=== PATIENT | male | born 1965 | race African-American/Black ===

== ENCOUNTER 2016-09-01 06:43 | Outpatient (CLI) | payer MEDICARE, OTHER ==
[~2016-09-01] VITALS: Ht 198.1 cm; Wt 121.6 kg
[2016-09-01] VITALS (9 sets, daily range): BP systolic 131–193; BP diastolic 74–103
[~2016-09-01 06:43] MED LIST: ACET500T68 PO; ALBU2.5V5 NEB; ALPR0.254 PO; AMLO10TA4 PO; AMLO5TAB2 PO; ASPI325T4 PO; ASPI81TA50 PO; ASPI81TA9 PO; ATOR40TA59 PO; ATORVASTATIN CA80 MG PO; CALC200T23 PO; CALC500O PO; CALC667C6 PO; CARV25TA2 PO; CARV6.252 PO; CEFA2PIG IV; CEFE2VIA5 IJ; CETI10TA16 PO; CLON0.1T PO; CLON0.2T PO; CLON0.3T PO; CLOP75TA PO; COLL30OI TP; CRESTOR20 MG PO; CRESTOR40 MG PO; CYCL10TA2 PO; DARB100D SQ; DARB60DI SQ; DEXT50DI2 IV; DICL100G7 TP; DIPH25TA24 PO; DIPH25TA26 PO; ENOX40DI3 SQ; ERGO500012 PO; ESCI10TA PO; FAMO20TA5 PO; FENO48TA16 PO; FLUT12AE IH; FOLI0.8T3 PO; FURO-68 PO; FURO40TA4 PO; GUAI600T38 PO; HYDR-2672 PO; HYDR-2762 PO; HYDR-2868 PO; HYDR-2869 PO; HYDR100T24 PO; Hydrochlorothiazide PO; INSU100C SQ; INSU100I17 SQ; INSU100I27 SQ; INSU100V8 SQ; ISOS30TA4 PO; LANS15CA66 PO; LEVO175T2 PO; LEVO250T25 PO; LEVO500T8 PO; LIDO700A4 TD; LORA1TAB PO; MECL12.52 PO; MELO-150 PO; METO25TA4 PO; METO50TA2 PO; MIDO5TAB PO; MORP30TA3 PO; MORP60TA PO; NIFE60TA12 PO; NIFE60TA16 PO; NITR0.4T SL; OLME1TAB35 PO; OXYC-323 PO; OXYC10TA PO; OXYC1TAB9 PO; OXYC5TAB PO; POTA10TA12 PO; PRAM0.255 PO; PRAM0.5T5 PO; PRAS10TA4 PO; PROAIR HFA8.5 GM INH; SEVE800T9 PO; SUCR1TAB29 PO; VANC1.5P3 IV; VENTOLIN HFA18 GM INH; WARF10TA PO; WARF5TAB PO; WARF5TAB7 PO; ZOLP10TA4 PO; ZOLP5TAB5 PO
[2016-09-01 07:07] LABS: BASO # 0.1 x10^3/uL (0.0-0.2); BASO % 2 % (0-3); EOS % 2 % (0-3); HEMATOCRIT 35.4 % (39.0-53.0); HEMOGLOBIN 11.4 g/dL (13.0-17.5); LYMPH # 1.7 x10^3/uL (1.0-4.8); LYMPH % 25 % (24-48); MEAN CORPUSCULAR HEMOGLOBIN 29 pg (25-35); MEAN CORPUSCULAR HGB CONC 32 g/dL (31-37); MEAN CORPUSCULAR VOLUME 90 fL (79-100); MONO % 11 % (0-9); NEUT % 59 % (31-73); PLATELET COUNT 234 x10^3/uL (140-400); RED BLOOD COUNT 3.94 x10^6/uL (4.30-5.70); RED CELL DISTRIBUTION WIDTH 15.1 % (11.5-14.5); WHITE BLOOD COUNT 6.7 x10^3/uL (4.0-11.0)
[2016-09-01] MEDS ORDERED: FAMOTIDINE 20 MG/2 ML VIAL IVP ONE (07:15)
[2016-09-01] MEDS ORDERED: DIPHENHYDRAMINE 50 MG/ML VIAL IM ONE (07:15)
[2016-09-01] MEDS ORDERED: methylPREDNISolone SOD SUCC PF 125 MG/2 ML VIAL. IV ONE (07:15)
[2016-09-01 07:17] LABS: INR 1.2 (0.8-1.1)
[2016-09-01 07:54] LABS: CALCIUM 8.6 mg/dL (8.5-10.1); GFR 19.2; POTASSIUM 4.3 mmol/L (3.5-5.1)
[2016-09-01] MEDS ORDERED: LIDOCAINE 1% / SOD BICARB 8.4% 20 ML VIAL. IJ ONE ×2 (07:55→09:45)
[2016-09-01] MEDS ORDERED: IODIXANOL 320 MG/ML 100 ML VIAL. ONE ×2 (07:56→09:31)
[2016-09-01] MEDS ORDERED: MIDAZOLAM HCL/PF 5 MG/5 ML VIAL ONE (08:32)
[2016-09-01] MEDS ORDERED: FENTANYL PF 250 MCG/5 ML VIAL. ONE (08:32)
[2016-09-01] MEDS ORDERED: HEPARIN for IV BOLUS 10,000 UNIT/10 ML VIAL. ONE (09:27)
[2016-09-01] MEDS ORDERED: DIPHENHYDRAMINE 50 MG/ML VIAL IVP ONE (09:37)
[2016-09-01] MEDS ORDERED: HEPARIN for IV BOLUS 10,000 UNIT/10 ML VIAL. IV ONE (09:45)
[2016-09-01] MEDS ORDERED: IODIXANOL 320 MG/ML 100 ML VIAL. IART ONE (09:45)
[2016-09-01] MEDS ORDERED: FENTANYL PF 250 MCG/5 ML VIAL. IV ONE (09:45)
[2016-09-01] MEDS ORDERED: MIDAZOLAM HCL/PF 5 MG/5 ML VIAL IV ONE (09:45)
[2016-09-01] MEDS ORDERED: CONTRAST GIVEN MC PRN (10:00)
--- NOTE | 2016-09-01 10:24 | PDOC1 ---
History and Physical Date of Procedure Date of Admission History of Present Illness Reason for Visit CRF with poor flows in Left arm fistula Past Medical History Past Medical History see nursing pre-op assessment Current Medications Current Medications Current Medications Methylprednisolone Sodium Succinate (Solu-Medrol 125mg Vial) 125 mg 1X ONCE IV Last administered on 09/01/16 10:14; Start 09/01/16 at 07:15; Stop 09/01/16 at 07:16; Status DC Diphenhydramine HCl (Benadryl) 50 mg 1X ONCE IM ; Start 09/01/16 at 07:15; Stop 09/01/16 at 07:16; Status DC Famotidine (Pepcid) 20 mg 1X ONCE IVP Last administered on 09/01/16 10:14; Start 09/01/16 at 07:15; Stop 09/01/16 at 07:16; Status DC Lidocaine/Sodium Bicarbonate 20 ml 20 ml STK-MED ONCE IJ ; Start 09/01/16 at 07: 55; Stop 09/01/16 at 07:56; Status DC Heparin Sodium/ Sodium Chloride 500 ml @ As Directed STK-MED ONCE .ROUTE ; Start 09/01/16 at 07:55; Stop 09/01/16 at 07:56; Status DC Iodixanol (Visipaque 320) 100 ml STK-MED ONCE .ROUTE ; Start 09/01/16 at 07:56; Stop 09/01/16 at 07:57; Status DC Midazolam HCl (Versed) 5 mg STK-MED ONCE .ROUTE ; Start 09/01/16 at 08:32; Stop 09/01/16 at 08:33; Status DC Fentanyl Citrate (Fentanyl 5ml Vial) 250 mcg STK-MED ONCE .ROUTE ; Start at 08:32; Stop 09/01/16 at 08:33; Status DC Heparin Sodium (Porcine) 10,000 unit STK-MED ONCE .ROUTE ; Start 09/01/16 at 09: 27; Stop 09/01/16 at 09:28; Status DC Iodixanol (Visipaque 320) 100 ml STK-MED ONCE .ROUTE ; Start 09/01/16 at 09:31; Stop 09/01/16 at 09:32; Status DC Heparin Sodium/ Sodium Chloride 1,000 unit 1X ONCE IART Last administered on 1 /20/17at 10:13; Start 09/01/16 at 09:45; Stop 09/01/16 at 09:52; Status DC Lidocaine/Sodium Bicarbonate (Buffered Lidocaine 1%) 20 ml 1X ONCE IJ Last administered on 09/01/16 10:13; Start 09/01/16 at 09:45; Stop 09/01/16 at 09:52 ; Status DC Midazolam HCl (Versed) 2 mg 1X ONCE IV Last administered on 09/01/16 10:17; Start 09/01/16 at 09:45; Stop 09/01/16 at 09:52; Status DC Fentanyl Citrate (Fentanyl 5ml Vial) 100 mcg 1X ONCE IV Last administered on 10:16; Start 09/01/16 at 09:45; Stop 09/01/16 at 09:52; Status DC Iodixanol (Visipaque 320) 100 ml 1X ONCE IART Last administered on 09/01/16 10:12; Start 09/01/16 at 09:45; Stop 09/01/16 at 09:52; Status DC Heparin Sodium (Porcine) 5,000 unit 1X ONCE IV Last administered on 09/01/16 10:15; Start 09/01/16 at 09:45; Stop 09/01/16 at 09:52; Status DC Info (Do NOT chart on this entry -- for MONITORING) 1 each PRN DAILY PRN MC SEE COMMENTS; Start 09/01/16 at 10:00; Stop 09/03/16 at 09:59 Diphenhydramine HCl (Benadryl) 50 mg 1X ONCE IVP ; Start 09/01/16 at 09:37; Stop 09/01/16 at 10:20; Status DC Active Scripts Active Morphine Sulfate Er (Morphine Sulfate) 30 Mg Tablet.er 30 Mg PO TID Lidoderm (Lidocaine) 700 Mg Adh..patch 1 Patch TD DAILY Cyclobenzaprine Hcl 10 Mg Tablet 5 Mg PO PRN Q6HRS PRN Hydrocodone-Apap 10-325 (Hydrocodone Bit/Acetaminophen) 1 Each Tablet 1 Tab PO PRN Q6HRS PRN Ventolin Hfa Inhaler (Albuterol Sulfate) 18 Gm Hfa.aer.ad 2 Puff INH Q4HRS PRN Hydralazine Hcl 100 Mg Tablet 1 Tab PO TID Metoprolol Tartrate 50 Mg Tablet 50 Mg PO BID Synthroid (Levothyroxine Sodium) 175 Mcg Tablet 175 Mcg PO DAILY07 Isosorbide Mononitrate Er (Isosorbide Mononitrate) 30 Mg Tab.er.24h 30 Mg PO DAILY Reported Famotidine 20 Mg Tablet 20 Mg PO HS Coumadin (Warfarin Sodium) 5 Mg Tablet 1 Tab PO DAILY Nephro-Jimmy Tablet (Folic Acid/Vitamin B Comp W-C) 0.8 Mg Tablet 1 Tab PO DAILY Acetaminophen 500 Mg Tablet 1,000 Mg PO 1X PRN Carafate (Sucralfate) 1 Gm Tablet 1 Tab PO BID Nitrostat (Nitroglycerin) 0.4 Mg Tab.subl 0.4 Mg SL PRN Q5MIN PRN Albuterol Sulfate Neb Soln (Albuterol Sulfate) 2.5 Mg/3 Ml Vial.neb 2.5 Mg NEB Q4HRS PRN Calcium Carbonate 500 Mg/5 Ml Oral.susp 2,000 Mg PO TID Aranesp Syringe (Darbepoetin Jace In Polysorbat) 100 Mcg/0.5 Ml Disp.syrin 100 Mcg SQ WEEKLY Voltaren (Diclofenac Sodium) 100 Gm Gel..gram. 1 Gm TP BID Clopidogrel (Clopidogrel Bisulfate) 75 Mg Tablet 75 Mg PO DAILY07 Renvela (Sevelamer Carbonate) 800 Mg Tablet 3 Tab PO TID Vitamin D2 (Ergocalciferol (Vitamin D2)) 50,000 Unit Capsule 50,000 Unit PO WEEKLY Atorvastatin Calcium 80 Mg Tablet 80 Mg PO HS Alprazolam 0.25 Mg Tablet 1 Tab PO TID Zolpidem Tartrate 5 Mg Tablet 1 Tab PO QHS Morphine Sulfate Er (Morphine Sulfate) 60 Mg Tablet.er 1 Tab PO TID Allergies Allergies: Coded Allergies: iodine (Verified Allergy, Severe, THROAT SWELLING, 03/29/16) lisinopril (Verified Allergy, Severe, 03/16/16) Fish Containing Products (Verified Allergy, Intermediate, 03/16/16) Penicillins (Verified Allergy, Intermediate, SEE COMMENT, 04/13/16) 05/19/15 Pt doesnt know reaction; ID starting Meropenem, HAS TOLERATED CEFAZOLIN piperacillin (Verified Allergy, Intermediate, Hives, 03/16/16) tazobactam (Verified Allergy, Intermediate, 03/16/16) Physical Exam Vital Signs Vital Signs Date Time Temp Pulse Resp B/P Pulse Ox O2 Delivery O2 Flow Rate FiO2 09/01/16 10:18 84 14 100 Nasal Cannula 2.0 09/01/16 07:15 98.8 131/74 98.8 Assessment Assessment Malfunctioning L arm av fistula Problems: Plan Plan fistulagram with intervention BAILEY VERDUZCO MD Sep 01, 2016 10:24
--- NOTE | 2016-09-01 10:26 | PDOC ---
BRIEF OPERATIVE NOTE Pre-Op Diagnosis CRF and malfunctioning fistula Post-Op Diagnosis same Procedure Performed Fistulagram and angioplasty and stenting of axillary vein and stenting of the innominate vein Surgeon Santos Anesthesia Type: Conscious Sedation Findings Recurrent tandem severe stenoses of the axillary vein resolved after angioplasty and stenting. Recurrent significant stenosis of the innominate improved after stenting. Patent arterial anastomosis Complications No immediate BAILEY VERDUZCO MD Sep 01, 2016 10:26
--- NOTE | 2016-09-01 10:27 | PDOC ---
MODERATE SEDATION ASSESSMENT RISKS/ALTERNATIVES Risks/Alternatives Risks and alternatives of this type of sedation and procedure discussed with: RISK/ALTERNATIVES: Patient H & P ON CHART H & P H & P on chart and reviewed for co-morbid conditions and appropriate labs. H&P ON CHART: Yes STATUS PREG STATUS ASSESSED: Yes MEDS/ALLERGIES REVIEWED Meds/Allergies Reviewed Medications and Allergies including time and route of recently administered narcotics and sedatives. MEDS/ALLERGIES REVIEWED: Yes ASA RATING ASA RATING: II AIRWAY ASSESSMENT Airway Assessment Airway patency, oral function limitations, presence of caps, crowns, dentures, partials, and ability to extend neck assessed. AIRWAY ASSESSMENT: Yes MALLAMPATI SCORE MALLAMPATI SCORE: II PRE-SEDATION ASSESSMENT PRE-SEDATION ASSESSMENT: Yes BAILEY VERDUZCO MD Sep 01, 2016 10:26
--- NOTE | 2016-09-01 17:46 | RAD ---
Procedure: Left upper extremity arteriovenous fistulogram, with angioplasty and stenting of the mid cephalic vein segment, and stenting of an innominate vein segment. Clinical Indication: 51-year-old male with malfunctioning AV fistula. Sedation: Conscious sedation was administered for 96 minutes. The patient was monitored by a qualified independent observer throughout the time of sedation. Please refer to the medical record for exact doses of medications utilized to achieve moderate sedation. Antibiotics: None Exposure: Kerma-Area Product: Gycm2 OR Fluoro Time: 8.9 minutes Images: 20 runs Contrast: 73 cc of Visipaque 320 contrast media Sterility: All elements of maximal sterile barrier technique including the use of a cap, mask, sterile gown, sterile gloves, large sterile sheet, appropriate hand hygiene, and 2% chlorhexidine for cutaneous antisepsis (or acceptable alternative antiseptic per current guidelines) were followed for this procedure. Consent: The procedure was explained in its entirety to the patient or the patients designated member service representative by a member of the treatment team, including a discussion of the risks, benefits and commonly accepted alternatives to the procedure, as well as the expected consequences of no therapy whatsoever. Discussion of the risks included, but was not limited to, those that are most frequent and those that are rare but possibly severe or life-threatening, as well as the possibility of unforeseen complications. Technique and Findings: Following informed consent, the patient was prepped and draped in usual sterile fashion. 1% lidocaine was used to achieve local anesthesia. Ultrasound interrogation revealed patency of the arterial anastomosis. Hardcopy ultrasound image was recorded as a 21-gauge micropuncture needle was used to gain access to the proximal venous portion of the fistula. The needle was exchanged over wire for 4 [place] introducer sheath. Contrast venography was then performed in a retrograde fashion demonstrating mild narrowing but persistent patency of the arteriovenous anastomosis. This is unchanged from the recent study. Antegrade venography demonstrated tandem recurrent moderate stenoses within the mid portion of the cephalic vein, with greater than 60% reduction in one location. These correspond to the same abnormality treated with angioplasty in the prior examination, and have recurred rapidly with no change from the preangioplasty imaging. There is also high-grade stenosis of the innominate vein at the margin of the innominate stent, corresponding to the abnormality previously angioplastied as well as. This once again represents rapid recurrence with no long-term durability from the prior intervention. The patient was given 5000 usual heparin intravenously. An 8 mm x 40 mm conquest balloon was used to angioplasty the mid cephalic vein stenoses. Post angioplasty angiogram demonstrated significantly improved angiographic appearance with minimal residual stenosis. Nevertheless, because of the recurrent nature of this abnormality, an 8 mm x 60 mm self-expanding stent was then deployed across the area of stenosis, and was postdilated with the same 8 mm x 40 mm conquest balloon. A 14 mm x 60 mm self-expanding stent was then deployed across the high-grade stenosis within the innominate vein. This was postdilated with a 14 mm x 40 mm angioplasty balloon. Completion venogram demonstrated excellent angiographic appearance of both treated regions, with no significant flow-limiting residual stenoses. The sheath was then removed and a pursestring suture was applied to achieve hemostasis. Complications: No immediate Impression: 1. Tandem moderate to severe stenoses within the mid cephalic vein, recurrent after angioplasty only 3 weeks ago. This was successfully treated with angioplasty and stenting. 2. High-grade innominate stenosis at the stent margin, also recurrent after angioplasty only 3 weeks ago. This was also successfully excluded using primary stent placement. 3. Patent arteriovenous anastomosis.
== END 2016-09-01 12:40 | disposition home or self-care (01) ==
LOC: INTRAD 06:43
PROVIDERS: ATTEND Internal Medicine Infectious Disease
DX: T82.510A Breakdown (mechanical) of surgically created arteriovenous fistula, initial encounter (principal); Y83.2 Surgical operation with anastomosis, bypass or graft as the cause of abnormal reaction of the patient, or of later complication, without mention of misadventure at the time of the procedure; Y92.9 Unspecified place or not applicable; Z79.01 Long term (current) use of anticoagulants
CPT/HCPCS: 36415; 36903; 36909; 80048; 85027; 85610; C1758; C1769; C1892; C1894; J2250; J2930; J3010; S0028; 35476; 36147; 37238; 37239

== ENCOUNTER 2016-10-26 03:17 | Inpatient (IN) | payer MEDICARE, OTHER ==
[~2016-10-26] VITALS: Ht 198.1 cm; Wt 133.8 kg
[2016-10-26] MEDS ORDERED: MORPHINE SULFATE 4 MG/ML DISP.SYRIN. IV PRN (03:45)
[2016-10-26] MEDS ORDERED: ONDANSETRON PF 4 MG/2 ML VIAL. IV PRN (03:45)
--- NOTE | 2016-10-26 03:46 | PHYS DOC ---
Past Medical History Past Medical History: A-Fib, Anxiety, Asthma, CAD, CHF, CVA, Diabetes-Type I, GERD, High Cholesterol, AL, Renal Disease, TIA, Vascular Disease Additional Past Medical Histor: morbid obesity,LEFT ARM FISTULA PLACED ON MAR 30 Past Surgical History: Other Additional Past Surgical Histo: HD SHUNT, TOE AMPUTATION,RIGHT ARM SX RIGHT ARM FX, SCROTAL SX, HEART STENT Alcohol Use: None Drug Use: None Adult General Chief Complaint Chief Complaint: CHEST WALL PAIN HPI HPI 51-year-old male with history of diabetes, CAD, and CHF presenting with significant midsternal chest pain is worsened for the last couple days. He also describes he has worsening of his worsening back pain. He states he's had a significant cough and congestion as well for the last 2 days. He localizes chest pain in the midsternal area and rates it a 7 out of 10 on the pain scale. His back pain is typical for his usual chronic back pain. He states he had a significant injury back in June and fractured several vertebrae. He states he is out of his usual pain medication that he takes for this. Review of Systems Review of Systems Constitutional: Denies fever or chills [] Eyes: Denies change in visual acuity, redness, or eye pain [] HENT: Denies nasal congestion or sore throat [] Respiratory: Denies cough or shortness of breath [] Cardiovascular: No additional information not addressed in HPI [] GI: Denies abdominal pain, nausea, vomiting, bloody stools or diarrhea [] : Denies dysuria or hematuria [] Musculoskeletal: Has back pain, has joint pain [] Integument: Denies rash or skin lesions [] Neurologic: Denies headache, focal weakness or sensory changes [] Endocrine: Denies polyuria or polydipsia [] Current Medications Current Medications Allergies Allergies Allergies Coded Allergies Type Severity Reaction Last Updated Verified iodine Allergy Severe THROAT SWELLING 03/29/16 Yes lisinopril Allergy Severe 03/16/16 Yes Fish Containing Products Allergy Intermediate 03/16/16 Yes Penicillins Allergy Intermediate SEE COMMENT 04/13/16 Yes piperacillin Allergy Intermediate Hives 03/16/16 Yes tazobactam Allergy Intermediate 03/16/16 Yes Physical Exam Physical Exam Constitutional: Well developed, well nourished, no acute distress, non-toxic appearance. [] HENT: Normocephalic, atraumatic, bilateral external ears normal, oropharynx moist, no oral exudates, nose normal. [] Eyes: PERRLA, EOMI, conjunctiva normal, no discharge. [] Neck: Normal range of motion, no tenderness, supple, no stridor. [] Cardiovascular:Heart rate regular rhythm, no murmur [] Lungs & Thorax: Bilateral breath sounds clear to auscultation [] Abdomen: Bowel sounds normal, soft, no tenderness, no masses, no pulsatile masses. [] Skin: Warm, dry, no erythema, no rash. [] Back: No tenderness, no CVA tenderness. [] Extremities: No tenderness, no cyanosis, no clubbing, ROM intact, no edema. [] Neurologic: Alert and oriented X 3, normal motor function, normal sensory function, no focal deficits noted. [] Psychologic: Affect normal, judgement normal, mood normal. [] Current Patient Data Vital Signs Vital Signs Date Time Temp Pulse Resp B/P Pulse Ox O2 Delivery O2 Flow Rate FiO2 10/26/16 03:23 99.6 91 22 123/72 100 Room Air 99.6 Lab Values Laboratory Tests Test 10/26/16 03:05 Influenza Type A Antigen Positive (NEGATIVE) Influenza Type B Antigen Negative (NEGATIVE) EKG EKG EKG as interpreted by me shows a sinus rhythm with rate of 88 bpm. There is a leftward axis but no obvious ischemic findings. This EKG does not meet STEMI criteria. Radiology/Procedures Radiology/Procedures One view of the chest as interpreted by me did not reveal an acute cardiopulmonary process. Course & Med Decision Making Course & Med Decision Making Pertinent Labs and Imaging studies reviewed. (See chart for details) This 51-year-old male with history of significant CAD has an influenza panel that is positive for influenza-type a. A dose of Tamiflu will be ordered. Morphine as needed will also be ordered for his back pain and chest pain. I'll be admitting the patient primarily under the hospitalist, Dr. Horton, with cardiology consult as well. The need for the admission will be discussed with Dr. Horton. His EKG and chest xray are unrevealing at this time. He does appear to have some mild back spasm and a 2 mg dose of Valium will be ordered IV. His laboratory workup is fairly unremarkable. Patient will be due for dialysis today and a renal consult will be placed. His Tamiflu was dosed by pharmacy for his reduced GFR. Dr. Horton agreed to accept the patient for evaluation and treatment. Dragon Disclaimer Dragon Disclaimer This electronic medical record was generated, in whole or in part, using a voice recognition dictation system. Departure Departure Impression: Primary Impression: Chest pain Additional Impression: Influenza A Disposition: 09 ADMITTED INPATIENT Admitting Physician: Neeraj Horton Condition: STABLE Referrals: JUAN MANUEL SMITH MD (PCP) Problem Qualifiers KATIE SAUCEDA DO Oct 26, 2016 03:46
[2016-10-26 03:49] LABS: OBC FLU VALID
[2016-10-26] MEDS ORDERED: MORPHINE SULFATE 4 MG/ML DISP.SYRIN. IV ONE (04:00)
[2016-10-26] MEDS ORDERED: OSELTAMIVIR 75 MG CAPSULE PO ONE (04:06)
[2016-10-26] MEDS ORDERED: DIAZEPAM 10 MG/2 ML DISP.SYRIN. IV ONE (04:15)
[2016-10-26] MEDS ORDERED: OSELTAMIVIR 30 MG CAPSULE PO SCH ×2 (04:30→16:00)
--- NOTE | 2016-10-26 04:30 | ACF ---
Admission Forms Criteria CHEST PAIN Clinical Indications for Admission to Inpatient Care (Place 'X' for any and all applicable criteria): Admission is indicated for chest pain and ANY ONE of the following(1)(2)(3)(4)(5 ): [ ]I. Angina with acute coronary syndrome (Also use Myocardial Infarction or Angina guideline) [ ]II. Hemodynamic instability [ ]III. Angina needing acute intervention as indicated by ALL of the following( 11)(12): [ ]a) Unstable angina is present as indicated by angina that is ANY ONE of the following: [ ]i) New onset [ ]ii) Nocturnal [ ]iii) Prolonged at rest [ ]iv) Progressive [ ]b) Angina warrants acute intervention as indicated by ANY ONE of the following: [ ]i) Recurrent angina (e.g, not responding as previously to treatment) [ ]ii) Angina at rest or with low-level activities despite initial medical therapy [ ]iii) New or presumably new ST-segment depression on ECG [ ]iv) Signs or symptoms of heart failure (eg, dyspnea, pulmonary edema) [ ]v) New or worsening mitral regurgitation [ ]vi) Hemodynamic instability [ ]vii) Dangerous arrhythmia (eg, sustained ventricular tachycardia) [ ]viii) History of percutaneous coronary intervention within 6 months [ ]ix) History of coronary artery bypass graft surgery [ ]x) JESSICA risk score of 2 or greater[A] [ ]xi) History of Diabetes(14) [ ]xii) High-risk cardiac ischemia findings on noninvasive testing (e.g, echocardiogram, treadmill testing, nuclear scan) [ ]xiii) Chronic renal insufficiency (ie, estimated GFR less than 60 mL/min/1.732m) [ ]xiv) Left ventricular ejection fraction less than 40% [ ]IV. Evidence of [place] (eg, cardiac biomarkers positive, ST-segment elevation on ECG) also use Myocardial Infarction Criteria Form. [ ]V. Pulmonary edema [ ]. Respiratory distress [ ]VII. Chest pain indicative of serious diagnosis other than coronary artery disease (eg, aortic dissection) [ ]VIII. Contraindications and/or Inappropriate clinical situations for Observational Care in patients with Chest Pain, when ANY ONE of the following is required: [ ]a) Patient with risk factor for pulmonary embolism, acute coronary syndrome and myocardial infarction (18) [ ]b) Patient with Pulmonary embolism require an average LOS of 4.3 days, therefore emergency department observation management is inappropriate 18,23 [ ]c) Painful condition/s in the elderly, have the highest rate of recidivism after emergency department observation management (10.8%) 20,21,22 [ ]d) Elevated cardiac biomarker requires intensive and exhaustive care (19) [X]IX. General contraindications and/or Inappropriate clinical situations for Observational Care in patients with Chest Pain, when ANY ONE of the following is required: [X]a) Prediction of prolongation of LOS based on ANY ONE of the following may be considered as a contraindication for observational care 2, 3, 4, 5, 6, 7, 8, 9, 10, 11 [ ]i) Age > 65 yrs. [ ]ii) Patient arriving by ambulance [ ]iii) Patient with high acuity [X]iv) Patient requiring vital sign monitoring [X]v) Patient on IV medication [ ]b) Systolic blood pressures 180mmHg 3,12 [ ]c) Patient with altered mental status including delirium and other alteration of consciousness, (3) [ ]d) Patient whose discharge disposition will be to a [facility] home or rehabilitation home should not be managed in Emergency Department Observation Unit. CMS rule requires 3 days hospital stay before such placement. 3,13 [ ]e) Patient with failure to thrive due to broad array of etiologies 3,16,17 [ ]f) Inability to ambulate 3,14 Extended stay beyond goal length of stay may be needed for (1)(28): [ ]a) Specific condition diagnosed after evaluation (eg, pulmonary embolism, aortic dissection) [ ]b) Unstable angina [ ]c) Continued suspicion of acute coronary syndrome with inability to complete needed cardiac evaluation (eg, patient clinically unable to undergo stress testing) [ ]d) Myocardial infarction (Contents from ANGINA and CHEST PAIN clinical indications for admission to inpatient care have been integrated in this form) The original [facility] content created by [employer] has been revised. The portions of the content which have been revised are identified through the use of italic text or in bold, and [facility] has neither reviewed nor approved the modified material. All other unmodified content is copyright [facility]. Please see references footnoted in the original [facility] [employer] edition 2016 Admission Criteria Met?: Yes HALIMA ARRIAGA Oct 26, 2016 04:30
[2016-10-26 04:32] LABS: BASO % 0 % (0-3); EOS % 1 % (0-3); HEMOGLOBIN 12.4 g/dL (13.0-17.5); LYMPH # 0.8 x10^3/uL (1.0-4.8); LYMPH % 26 % (24-48); MEAN CORPUSCULAR HEMOGLOBIN 30 pg (25-35); MEAN CORPUSCULAR HGB CONC 33 g/dL (31-37); MEAN CORPUSCULAR VOLUME 92 fL (79-100); MONO % 24 % (0-9); NEUT % 48 % (31-73); PLATELET COUNT 113 x10^3/uL (140-400); RED BLOOD COUNT 4.16 x10^6/uL (4.30-5.70); RED CELL DISTRIBUTION WIDTH 14.4 % (11.5-14.5); WHITE BLOOD COUNT 2.9 x10^3/uL (4.0-11.0)
[2016-10-26 04:38] LABS: CALCIUM 7.5 mg/dL (8.5-10.1); CREATININE 5.8 mg/dL (0.7-1.3); GFR 12.5; POTASSIUM 4.1 mmol/L (3.5-5.1)
[2016-10-26 06:21] VITALS: BP 131/79
[2016-10-26 06:22] VITALS: BP 131/79
--- NOTE | 2016-10-26 06:50 | EKG ---
[facility] [address] [place] [address] Test Date: 2016-10-26 Test Time: 03:34:17 Pat Name: BHAVYA WILKES Department: Room: 205 1 Gender: Male Communications Associate: : 1965 Requested By: KATIE SAUCEDA Order Number: [id number] Reading MD: Beata Boykin Measurements Intervals [place] Rate: 88 P: 56 MT: 158 QRS: -46 QRSD: 94 T: 43 QT: 370 QTc: 451 Interpretive Statements SINUS RHYTHM LEFT ATRIAL ABNORMALITY ABNORMAL LEFT AXIS DEVIATION QRS(T) CONTOUR ABNORMALITY CONSISTENT WITH INFERIOR INFARCT PROBABLY OLD R Electronically Signed On 10-28-2016 19:58:34 CDT by Beata Boykin
--- NOTE | 2016-10-26 07:15 | RAD ---
Portable chest, 10/26/2016: History: Chest pain Comparison is made to a study from 07/11/2016. The heart is at the upper limits of normal in size. There are vascular stents projected over the innominate vein regions bilaterally. The pulmonary vascularity is normal. No pulmonary infiltrates are seen. There is no evidence of pleural fluid. IMPRESSION: 1. Borderline cardiomegaly. 2. No acute abnormality is detected.
[2016-10-26] MEDS ORDERED: BROM5DRO3 LEFTEYE (07:18)
[2016-10-26] MEDS ORDERED: PRED5DRO6 OS (07:18)
[2016-10-26] MEDS ORDERED: MOXI3DRO2 LEFTEYE (07:18)
[2016-10-26] MEDS ORDERED: IV NORMAL SALINE 1000ML BAG 1,000 ML IV PRN ×2 (08:38)
[2016-10-26] MEDS ORDERED: DIPHENHYDRAMINE 50 MG/ML VIAL IV PRN ×2 (08:45)
[2016-10-26] MEDS ORDERED: DIALYSIS PATIENT. MC PRN (08:45)
[2016-10-26] MEDS ORDERED: LABETALOL 20 MG/4 ML DISP.SYRIN. IVP PRN (08:45)
[2016-10-26] MEDS ORDERED: ALBUMIN HUMAN 25% 200 ML IV PRN (08:45)
[2016-10-26] MEDS ORDERED: ACETAMINOPHEN 500 MG TABLET PO PRN (08:45)
[2016-10-26] MEDS ORDERED: LIDOCAINE 1% PF 2 ML VIAL. ID STA (08:54)
--- NOTE | 2016-10-26 08:59 | PDOC2 ---
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 Gonzalez Patel SOURCE Source: Chart review, Patient HISTORY OF PRESENT ILLNESS HISTORY OF PRESENT ILLNESS 51 year old male with bilateral chest pain with cough. Influenza +. Chronic lumbar back pain exacerbated by cough. Out of usual oral pain meds so presented to ER. EKG without acute changes and troponin levels not consistent with acute MN. Reason for Visit: chest pain PAST MEDICAL HISTORY Cardiovascular: AFIB, CAD (BILLER of circ treated with dual overlapping GARY - 2015), HTN, MN, Hyperlipidemia, Other (PVD) Pulmonary: Asthma, COPD CENTRAL NERVOUS SYSTEM: CVA, Other (peripheral neuropathy) GI: GERD Musculoskeletal: Osteoarthritis Renal/: Chronic renal failure (ESRD with HD) Endocrine: Diabetes (type II) PAST SURGICAL HISTORY Past Surgical History: Cataract Removal (left), Total knee replacement (left), Other (multiple toe amps) FAMILY HISTORY Family History: Family History Unknown SOCIAL HISTORY Smoke: No ALCOHOL: none Drugs: None Lives: with Family CURRENT MEDICATIONS CURRENT MEDICATIONS Current Medications Medications (Trade) Dose Ordered Sig/[place] Route PRN Reason Start Time Stop Time Status Last Admin Dose Admin Morphine Sulfate 4 mg 1X ONCE IV 10/26/16 04:00 10/26/16 04:01 DC 10/26/16 03:45 Morphine Sulfate 4 mg PRN Q2HR PRN IV SEVERE PAIN 10/26/16 03:45 10/26/16 06:14 Oseltamivir Phosphate (Tamiflu) 30 mg BID PO 10/26/16 04:30 10/31/16 04:29 10/26/16 04:12 Diazepam (Valium) 2 mg 1X ONCE IV 10/26/16 04:15 10/26/16 04:16 DC 10/26/16 04:10 ALLERGIES ALLERGIES: Coded Allergies: iodine (Verified Allergy, Severe, THROAT SWELLING, 03/29/16) lisinopril (Verified Allergy, Severe, 03/16/16) Fish Containing Products (Verified Allergy, Intermediate, 03/16/16) Penicillins (Verified Allergy, Intermediate, SEE COMMENT, 04/13/16) 05/19/15 Pt doesnt know reaction; ID starting Meropenem, HAS TOLERATED CEFAZOLIN piperacillin (Verified Allergy, Intermediate, Hives, 03/16/16) tazobactam (Verified Allergy, Intermediate, 03/16/16) ROS General: YES: Fatigue, Malaise PSYCHOLOGICAL ROS: No: Anxiety, Behavioral Disorder, Concentration difficultie , Decreased libido, Depression, Disorientation, Hallucinations, Hostility, Irritablity, Memory difficulties, Mood Swings, Obsessive thoughts, Other, Physical abuse, Sexual abuse, Sleep disturbances, Suicidal ideation Eyes: No Blurry vision, No Decreased vision, No Double vision, No Dry eyes, No Excessive tearing, No Eye Pain, No Itchy Eyes, No Loss of vision, No Other, No Photophobia, No Scotomata, No Uses contacts, No Uses glasses HEENT: No: Epistaxis, Heacaches, Hearing change, Nasal congestion, Nasal discharge, Oral lesions, Other, Sinus pain, Sneezing, Snoring, Sore Throat, Tinnitus, Vertigo, Visual Changes, Vocal changes Hematological and Lymphatic: No: Bleeding Problems, Blood Clots, Blood Transfusions, Brusing, Night Sweats, Other, Pallor, Swollen Lymph Nodes ENDOCRINE: No: Breast Changes, Galactorrhea, Hair Pattern Changes, Hot Flashes , Malaise/lethargy, Mood Swings, Other, Palpitations, Polydipsia/polyuria, Skin Changes, Temperature Intolerance, Unexpected Weight Changes Respiratory: YES: Cough, SOB with excertion, Shortness of breath Cardiovascular: yes Chest Pain Gastrointestinal: No Abdominal Pain, No Constipation, No Diarrhea, No Hematochezia, No Melena, No Nausea, No Other, No Vomiting Genitourinary: No , No , No , No , No , No , No , No Discharge, No Dysuria, No Flank Pain, No Frequency, No Hematuria, No Incontinence, No Other, No Pain, No Retention, No Urgency Musculoskeletal: Yes Joint Pain Neurological: No Behavorial Changes, No Bowel/Bladder ControlChng, No Confusion , No Dizziness, No Gait Disturbance, No Headaches, No Impaired Coord/balance, No Memory Loss, No Numbness/Tingling, No Other, No Seizures, No Speech Problems , No Tremors, No Visual Changes, No Weakness Skin: No Acne, No Dry Skin, No Eczema, No Hair Changes, No Lumps, No Mole Changes, No Mottling, No Nail Changes, No Other, No Pruritus, No Rash, No Skin Lesion Changes PHYSICAL EXAM General: Alert, Oriented X3, Cooperative, No acute distress HEENT: Atraumatic, PERRLA Lungs: Other (soft posterior basilar crackles) Heart: Normal S1, Normal S2, No murmurs, Other (tele: SR) Abdomen: Normal bowel sounds, Soft Extremities: No edema Skin: No rashes Neuro: Normal speech Psych/Mental Status: Mental status NL, Mood NL MUSCULOSKELETAL: Other (pain in lower back) VITALS VITALS Vital Signs Date Time Temp Pulse Resp B/P Pulse Ox O2 Delivery O2 Flow Rate FiO2 10/26/16 06:44 20 10/26/16 06:22 99.0 90 131/79 100 Room Air 99.0 LABS Lab: Laboratory Tests Test 10/26/16 03:05 10/26/16 04:18 10/26/16 08:00 Influenza Type A Antigen Positive (NEGATIVE) Influenza Type B Antigen Negative (NEGATIVE) White Blood Count 2.9x10^3/uL (4.0-11.0) Red Blood Count 4.16x10^6/uL (4.30-5.70) Hemoglobin 12.4g/dL (13.0-17.5) Hematocrit 38.0% (39.0-53.0) Mean Corpuscular Volume 92fL (79-100) Mean Corpuscular Hemoglobin 30pg (25-35) Mean Corpuscular Hemoglobin Concent 33g/dL (31-37) Red Cell Distribution Width 14.4% (11.5-14.5) Platelet Count 113x10^3/uL (140-400) Neutrophils (%) (Auto) 48% (31-73) Lymphocytes (%) (Auto) 26% (24-48) Monocytes (%) (Auto) 24% (0-9) Eosinophils (%) (Auto) 1% (0-3) Basophils (%) (Auto) 0% (0-3) Neutrophils # (Auto) 1.4x10^3uL (1.8-7.7) Lymphocytes # (Auto) 0.8x10^3/uL (1.0-4.8) Monocytes # (Auto) 0.7x10^3/uL (0.0-1.1) Eosinophils # (Auto) 0.0x10^3/uL (0.0-0.7) Basophils # (Auto) 0.0x10^3/uL (0.0-0.2) Sodium Level 135mmol/L (136-145) Potassium Level 4.1mmol/L (3.5-5.1) Chloride Level 94mmol/L (98-107) Carbon Dioxide Level 28mmol/L (21-32) Anion Gap 13 (6-14) Blood Urea Nitrogen 71mg/dL (8-26) Creatinine 5.8mg/dL (0.7-1.3) Estimated GFR (Cockcroft-Gault) 12.5 Glucose Level 162mg/dL (70-99) Calcium Level 7.5mg/dL (8.5-10.1) Troponin I Quantitative 0.042ng/mL (0.000-0.055) Glucose (Fingerstick) 134mg/dL (70-99) IMAGES IMAGES CXR: Comparison is made to a study from 07/11/2016. The heart is at the upper limits of normal in size. There are vascular stents projected over the innominate vein regions bilaterally. The pulmonary vascularity is normal. No pulmonary infiltrates are seen. There is no evidence of pleural fluid. IMPRESSION: 1. Borderline cardiomegaly. 2. No acute abnormality is detected. EKG EKG no acute changes; SR ECHOCARDIOGRAM ECHOCARDIOGRAM 06/02/2016: ERNIE No evidence of endocarditis by ERNIE. Normal LV function. EF 65% No significant valvular disease. HEART CATH HEART CATH 02/08/2016: CORONARY ANGIOGRAPHY: LM is a large caliber vessel with normal angiographic appearance. LAD is a large caliber vessel with a mid 30% stenosis. The apical vessel has mild diffuse irregularities of up to 50%. The 1st and second diagonals are small caliber vessels with mild luminal irregularities. The 3rd diagonal is a moderate caliber vessel with mild diffuse irregularities of up to 30%. LCx is a large caliber dominant vessel with a proximal to mid subtotal occlusion after the take-off of OM1. The distal LCx prior the LPDA is seen to reconstitute via left to left collaterals. OM1 is a moderate caliber vessel with normal angiographic appearance. There are two small caliber OM/LPL vessels noted after recanalizations of the LCx without significant disease. LPDA is a moderate caliber vessel with mild luminal irregularities of up to 30% . RCA is a small to moderate caliber non-dominant vessel with mild diffuse irregularities of up to 40%. Conclusion 1. Elevated left ventricular filling pressures 2. Two vessel CAD with BILLER of the LCx. 3. Successful recanalization of the LCx BILLER with antegrade wire-escalation technique with placement of overlapping stents (Distal to proximal: Xience 2.5/ 38, 2.75/38, 3.25/38, 3.5/18) ASSESSMENT/PLAN ASSESSMENT/PLAN 1. chest pain, non-cardiac reproducible with palpation of chest likely related to cough no indication for cardiac evaluation 2. CAD with previous BILLER of circ with previous PCI/GARY continue Plavix suspect ASA d/c due to warfarin use continue secondary prevention 3. HTN control with meds 4. HLD check FLP continue high dose statin therapy 5. influenza per primary service Problems: ROB LOOMIS MD 10/26/16 2201: CARDIAC CONSULT ALLERGIES ALLERGIES: Coded Allergies: iodine (Verified Allergy, Severe, THROAT SWELLING, 03/29/16) lisinopril (Verified Allergy, Severe, 03/16/16) Fish Containing Products (Verified Allergy, Intermediate, 03/16/16) Penicillins (Verified Allergy, Intermediate, SEE COMMENT, 04/13/16) 05/19/15 Pt doesnt know reaction; ID starting Meropenem, HAS TOLERATED CEFAZOLIN piperacillin (Verified Allergy, Intermediate, Hives, 03/16/16) tazobactam (Verified Allergy, Intermediate, 03/16/16) ASSESSMENT/PLAN ASSESSMENT/PLAN Pt. seen and examined. 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 51 y.o male well known to me on renal txp list. cp is noncardiac supportive care normal CV exam. will follow peripherally. Problems: RADHA MILES APRN Oct 26, 2016 08:59 ROB LOOMIS MD Oct 26, 2016 22:01
[2016-10-26 11:31] LABS: % BASOS 2 % (0-3); % EOS 2 % (0-5); PLT ESTIMATE DECREASED (ADEQUATE)
--- NOTE | 2016-10-26 11:41 | PDOC2 ---
CONSULT Date of Consult Date of Consult DATE: 10/26/16 TIME: 11:38 Reason for Consult Reason for Consult: ESRD Referring Physician Referring Physician: CARMENCITA Identification/Chief Complaint Chief Complaint THIS IS A 51 YR OLD ADMITTED WITH CHEST PAIN. CATH NEG BUT HAS A DX OF INFLUENZA A. HE HAS ESRD AND IS ON OP HD ON TTS. LABS NOTED AND C/W HIS ESRD STATUS Source Source: Chart review History of Present Illness Reason for Visit: ABOVE Past Medical History Cardiovascular: AFIB, CAD, HTN, OR, Hyperlipidemia Pulmonary: Asthma CENTRAL NERVOUS SYSTEM: CVA, Periperal neuropathy GI: GERD Heme/Onc: Anemia NOS Hepatobiliary: No pertinent hx Psych: Anxiety Infectious disease: No pertinent hx Renal/: Chronic renal failure Endocrine: Diabetes, Hyperparathyroidism Past Surgical History Past Surgical History: Cataract Removal, Total knee replacement, Other Family History Family History: No Significant, Hypertension Social History ALCOHOL: none Drugs: None Lives: with Family Current Problem List Problem List Problems Medical Problems: (1) Chest pain Status: Acute (2) Influenza A Status: Acute Current Medications Current Medications Current Medications Morphine Sulfate 4 mg 1X ONCE IV Last administered on 10/26/16 03:45; Start 10/26/16 at 04:00; Stop 10/26/16 at 04:01; Status DC Ondansetron HCl (Zofran) 4 mg PRN Q8HRS PRN IV NAUSEA/VOMITING; Start 10/26/16 at 03:45; Stop 10/27/16 at 03:44 Morphine Sulfate 4 mg PRN Q2HR PRN IV SEVERE PAIN Last administered on 06:14; Start 10/26/16 at 03:45 Oseltamivir Phosphate (Tamiflu) 30 mg BID PO Last administered on 10/26/16 04: 12; Start 10/26/16 at 04:30; Stop 10/31/16 at 04:29 Diazepam (Valium) 2 mg 1X ONCE IV Last administered on 10/26/16 04:10; Start 10/26/16 at 04:15; Stop 10/26/16 at 04:16; Status DC Oseltamivir Phosphate 75 mg 75 mg STK-MED ONCE PO ; Start 10/26/16 at 04:06; Stop 10/26/16 at 04:07; Status DC Sodium Chloride 1,000 ml @ 1,000 mls/hr Q1H PRN IV hypotension; Start 10/26/16 at 08:38; Stop 10/26/16 at 14:37 Albumin Human (Albuminar) 200 ml @ 200 mls/hr 1X PRN PRN IV Hypotension; Start 10/26/16 at 08:45; Stop 10/26/16 at 14:44 Acetaminophen (Tylenol) 500 mg 1X PRN PRN PO MILD PAIN / TEMP; Start 10/26/16 at 08:45; Stop 10/27/16 at 08:44 Diphenhydramine HCl (Benadryl) 25 mg 1X PRN PRN IV ITCHING; Start 10/26/16 at 08:45; Stop 10/27/16 at 08:44 Diphenhydramine HCl (Benadryl) 25 mg 1X PRN PRN IV ITCHING; Start 10/26/16 at 08:45; Stop 10/27/16 at 08:44 Labetalol HCl 10 mg 10 mg PRN Q1HR PRN IVP SBP > 180; Start 10/26/16 at 08:45; Stop 10/27/16 at 08:44 Sodium Chloride (Iv Sodium Chloride 0.9% 1000ml Bag) 1,000 ml @ 400 mls/hr Q2H30M PRN IV PATENCY; Start 10/26/16 at 08:38; Stop 10/26/16 at 20:37 Info (PHARMACY MONITORING -- do not chart) 1 each PRN DAILY PRN MC SEE COMMENTS ; Start 10/26/16 at 08:45 Lidocaine HCl (Xylocaine-Mpf 1% Vial) 1 ml 1X STAT ID Last administered on t 09:13; Start 10/26/16 at 08:54; Stop 10/26/16 at 08:59; Status DC Active Scripts Active Morphine Sulfate Er (Morphine Sulfate) 30 Mg Tablet.er 30 Mg PO TID Lidoderm (Lidocaine) 700 Mg Adh..patch 1 Patch TD DAILY Cyclobenzaprine Hcl 10 Mg Tablet 5 Mg PO PRN Q6HRS PRN Hydrocodone-Apap 10-325 (Hydrocodone Bit/Acetaminophen) 1 Each Tablet 1 Tab PO PRN Q6HRS PRN Ventolin Hfa Inhaler (Albuterol Sulfate) 18 Gm Hfa.aer.ad 2 Puff INH Q4HRS PRN Hydralazine Hcl 100 Mg Tablet 1 Tab PO TID Metoprolol Tartrate 50 Mg Tablet 50 Mg PO BID Synthroid (Levothyroxine Sodium) 175 Mcg Tablet 175 Mcg PO DAILY07 Isosorbide Mononitrate Er (Isosorbide Mononitrate) 30 Mg Tab.er.24h 30 Mg PO DAILY Reported Bromsite (Bromfenac Sodium) 5 Ml Drops 5 Ml LEFTEYE DAILY Vigamox (Moxifloxacin Hcl) 3 Ml Drops 1 Drop LEFTEYE TID Prednisolone Acetate 5 Ml Drops.susp 1 Drop OS Q1HR Famotidine 20 Mg Tablet 20 Mg PO HS Coumadin (Warfarin Sodium) 5 Mg Tablet 1 Tab PO DAILY Nephro-Jimmy Tablet (Folic Acid/Vitamin B Comp W-C) 0.8 Mg Tablet 1 Tab PO DAILY Acetaminophen 500 Mg Tablet 1,000 Mg PO 1X PRN Carafate (Sucralfate) 1 Gm Tablet 1 Tab PO BID Nitrostat (Nitroglycerin) 0.4 Mg Tab.subl 0.4 Mg SL PRN Q5MIN PRN Albuterol Sulfate Neb Soln (Albuterol Sulfate) 2.5 Mg/3 Ml Vial.neb 2.5 Mg NEB Q4HRS PRN Calcium Carbonate 500 Mg/5 Ml Oral.susp 2,000 Mg PO TID Aranesp Syringe (Darbepoetin Jace In Polysorbat) 100 Mcg/0.5 Ml Disp.syrin 100 Mcg SQ WEEKLY Voltaren (Diclofenac Sodium) 100 Gm Gel..gram. 1 Gm TP BID Clopidogrel (Clopidogrel Bisulfate) 75 Mg Tablet 75 Mg PO DAILY07 Renvela (Sevelamer Carbonate) 800 Mg Tablet 3 Tab PO TID Vitamin D2 (Ergocalciferol (Vitamin D2)) 50,000 Unit Capsule 50,000 Unit PO WEEKLY Atorvastatin Calcium 80 Mg Tablet 80 Mg PO HS Alprazolam 0.25 Mg Tablet 1 Tab PO TID Zolpidem Tartrate 5 Mg Tablet 1 Tab PO QHS Morphine Sulfate Er (Morphine Sulfate) 60 Mg Tablet.er 1 Tab PO TID Allergies Allergies: Coded Allergies: iodine (Verified Allergy, Severe, THROAT SWELLING, 03/29/16) lisinopril (Verified Allergy, Severe, 03/16/16) Fish Containing Products (Verified Allergy, Intermediate, 03/16/16) Penicillins (Verified Allergy, Intermediate, SEE COMMENT, 04/13/16) 05/19/15 Pt doesnt know reaction; ID starting Meropenem, HAS TOLERATED CEFAZOLIN piperacillin (Verified Allergy, Intermediate, Hives, 03/16/16) tazobactam (Verified Allergy, Intermediate, 03/16/16) ROS General: YES: Appetite, Fatigue, Malaise PSYCHOLOGICAL ROS: YES: Depression Eyes: Yes Decreased vision HEENT: YES: Heacaches Respiratory: YES: Cough, Shortness of breath Gastrointestinal: Yes Constipation Genitourinary: YES Other (OLIGUIRA) Musculoskeletal: Yes Muscular Weakness Neurological: Yes Weakness Skin: Yes Dry Skin Physical Exam General: Alert, Oriented X3, Cooperative, No acute distress HEENT: Atraumatic, PERRLA, EOMI, Mucous membr. moist/pink Lungs: Clear to auscultation Heart: Regular rate, Normal S1 Abdomen: Normal bowel sounds, Soft Extremities: No clubbing Neuro: Cranial nerves 3-12 NL Psych/Mental Status: Mental status NL, Mood NL MUSCULOSKELETAL: No deformity Vitals VITALS Vital Signs Date Time Temp Pulse Resp B/P Pulse Ox O2 Delivery O2 Flow Rate FiO2 10/26/16 06:44 20 10/26/16 06:22 99.0 90 131/79 100 Room Air 99.0 Labs Labs Laboratory Tests Test 10/26/16 03:05 10/26/16 04:18 10/26/16 08:00 10/26/16 09:40 Influenza Type A Antigen Positive (NEGATIVE) Influenza Type B Antigen Negative (NEGATIVE) White Blood Count 2.9x10^3/uL (4.0-11.0) Red Blood Count 4.16x10^6/uL (4.30-5.70) Hemoglobin 12.4g/dL (13.0-17.5) Hematocrit 38.0% (39.0-53.0) Mean Corpuscular Volume 92fL (79-100) Mean Corpuscular Hemoglobin 30pg (25-35) Mean Corpuscular Hemoglobin Concent 33g/dL (31-37) Red Cell Distribution Width 14.4% (11.5-14.5) Platelet Count 113x10^3/uL (140-400) Neutrophils (%) (Auto) 48% (31-73) Lymphocytes (%) (Auto) 26% (24-48) Monocytes (%) (Auto) 24% (0-9) Eosinophils (%) (Auto) 1% (0-3) Basophils (%) (Auto) 0% (0-3) Neutrophils # (Auto) 1.4x10^3uL (1.8-7.7) Lymphocytes # (Auto) 0.8x10^3/uL (1.0-4.8) Monocytes # (Auto) 0.7x10^3/uL (0.0-1.1) Eosinophils # (Auto) 0.0x10^3/uL (0.0-0.7) Basophils # (Auto) 0.0x10^3/uL (0.0-0.2) Segmented Neutrophils % 36% (35-66) Band Neutrophils % 8% (0-9) Lymphocytes % 28% (24-48) Monocytes % 24% (0-10) Eosinophils % 2% (0-5) Basophils % 2% (0-3) Platelet Estimate Decreased (ADEQUATE) Sodium Level 135mmol/L (136-145) Potassium Level 4.1mmol/L (3.5-5.1) Chloride Level 94mmol/L (98-107) Carbon Dioxide Level 28mmol/L (21-32) Anion Gap 13 (6-14) Blood Urea Nitrogen 71mg/dL (8-26) Creatinine 5.8mg/dL (0.7-1.3) Estimated GFR (Cockcroft-Gault) 12.5 Glucose Level 162mg/dL (70-99) Calcium Level 7.5mg/dL (8.5-10.1) Troponin I Quantitative 0.042ng/mL (0.000-0.055) 0.032ng/mL (0.000-0.055) Glucose (Fingerstick) 134mg/dL (70-99) Laboratory Tests Test 10/26/16 03:05 10/26/16 04:18 10/26/16 08:00 10/26/16 09:40 Influenza Type A Antigen Positive (NEGATIVE) Influenza Type B Antigen Negative (NEGATIVE) White Blood Count 2.9x10^3/uL (4.0-11.0) Red Blood Count 4.16x10^6/uL (4.30-5.70) Hemoglobin 12.4g/dL (13.0-17.5) Hematocrit 38.0% (39.0-53.0) Mean Corpuscular Volume 92fL (79-100) Mean Corpuscular Hemoglobin 30pg (25-35) Mean Corpuscular Hemoglobin Concent 33g/dL (31-37) Red Cell Distribution Width 14.4% (11.5-14.5) Platelet Count 113x10^3/uL (140-400) Neutrophils (%) (Auto) 48% (31-73) Lymphocytes (%) (Auto) 26% (24-48) Monocytes (%) (Auto) 24% (0-9) Eosinophils (%) (Auto) 1% (0-3) Basophils (%) (Auto) 0% (0-3) Neutrophils # (Auto) 1.4x10^3uL (1.8-7.7) Lymphocytes # (Auto) 0.8x10^3/uL (1.0-4.8) Monocytes # (Auto) 0.7x10^3/uL (0.0-1.1) Eosinophils # (Auto) 0.0x10^3/uL (0.0-0.7) Basophils # (Auto) 0.0x10^3/uL (0.0-0.2) Segmented Neutrophils % 36% (35-66) Band Neutrophils % 8% (0-9) Lymphocytes % 28% (24-48) Monocytes % 24% (0-10) Eosinophils % 2% (0-5) Basophils % 2% (0-3) Platelet Estimate Decreased (ADEQUATE) Sodium Level 135mmol/L (136-145) Potassium Level 4.1mmol/L (3.5-5.1) Chloride Level 94mmol/L (98-107) Carbon Dioxide Level 28mmol/L (21-32) Anion Gap 13 (6-14) Blood Urea Nitrogen 71mg/dL (8-26) Creatinine 5.8mg/dL (0.7-1.3) Estimated GFR (Cockcroft-Gault) 12.5 Glucose Level 162mg/dL (70-99) Calcium Level 7.5mg/dL (8.5-10.1) Troponin I Quantitative 0.042ng/mL (0.000-0.055) 0.032ng/mL (0.000-0.055) Glucose (Fingerstick) 134mg/dL (70-99) Assessment/Plan Assessment/Plan IMP INFLUENZA A ESRD ANEMIA CHEST PAIN PLAN HD TODAY UF TO DW [facility] DW WILL FOLLOW GRACE VILLEDA MD Oct 26, 2016 11:41
[2016-10-26] MEDS ORDERED: NITROGLYCERIN SUBLINGUAL 0.4 MG BOTTLE OF 25. SL PRN (14:00)
[2016-10-26] MEDS ORDERED: CYCLOBENZAPRINE 10 MG TABLET. PO PRN (14:00)
[2016-10-26] MEDS ORDERED: HYDROCODONE/APAP 10/325 TABLET. PO PRN (14:00)
[2016-10-26] MEDS ORDERED: ALBUTEROL SULFATE 2.5 MG/3 ML NEBU. NEB PRN (14:00)
[2016-10-26 15:00] VITALS: BP 146/79
[2016-10-26] MEDS ORDERED: NON FORMULARY ITEM (Prednisolone Acetate 1 DROP) OS SCH (15:00)
--- NOTE | 2016-10-26 15:17 | HP ---
ADMIT DATE: 10/26/2016 CHIEF COMPLAINT: Chest pain, influenza A. HISTORY OF PRESENT ILLNESS: The patient is a 51-year-old -[place] gentleman with a history of end-stage renal disease on dialysis, who presented to the Emergency Room with central chest pain. He relates this has been going on for a couple of days, is worse with the deep breathing and is radiating especially into his back, sharp in nature. He actually has chronic back pain and thought this may have been related, but with low-grade fevers up to 106 and upper respiratory symptoms as well as a couple of days of diarrhea earlier this week, he decided to come to the Emergency Room. Here, he was shown to be positive for flu and admitted for a chest pain rule out. PAST MEDICAL HISTORY: End-stage renal disease, on dialysis; CAD status post CT; atrial fibrillation; hypertension; hyperlipidemia; asthma; diabetes mellitus; peripheral neuropathy associated with diabetes; hyperparathyroidism related to renal failure; status post recent cataract removal; and history of total knee replacement. FAMILY HISTORY: No other renal failures, but hypertension prevalent. SOCIAL HISTORY: He is , lives more with his . No toxic habits, has lost about 200 pounds over the past 2 years. ALLERGIES: PENICILLIN, LISINOPRIL, IODINE, FISH CONTAINING PRODUCTS. HOME MEDICATIONS: Reconciled with MAR. REVIEW OF SYSTEMS: Positive as per HPI. Chest pain is essentially resolved. She still has significant back pain, especially just returning from dialysis and having to lie flat on his back. Rest of organ system review is negative. PHYSICAL EXAMINATION: VITAL SIGNS: Show a blood pressure of 131/79, heart rate of 90, respiratory rate is 18. He is afebrile. GENERAL: This is an overweight, 51-year-old -[place] gentleman, alert and oriented, in no acute distress. HEENT: Shows no scleral icterus. NECK: Supple, without lymphadenopathy. LUNGS: Clear bilaterally. CARDIOVASCULAR: Heart is regular rate and rhythm without any appreciable murmur. ABDOMEN: Positive bowel sounds, soft, nontender. EXTREMITIES: Show no edema. SKIN: Warm, soft and dry without any rash. LABORATORY DATA: CBC with a WBC of 2.9, hemoglobin 12.4, platelets of 113. Of note, WBC normally in the 4 range, platelets in the 1-teens previously. Differential with 48% neutrophils, 26% lymphs, and 24% monocytes. Chemistries with a BUN and creatinine of 71 and 5.8, sodium of 135, potassium 4.3, glucose at 162, calcium at 7.5. Troponins serially at 0.042 to 0.032. RADIOGRAPHIC STUDY: Chest x-ray shows borderline cardiomegaly. No acute abnormality. ASSESSMENT AND PLAN: The patient is a 51-year-old -[place] gentleman with diabetes and end-stage renal disease who presents with influenza A and related phlebitis. Elevated troponin is most likely related to chronic renal failure. Has been completely stable. Cardiac consult will be obtained as he does have a history of heart disease. We will treat him with Tamiflu for his influenza, nebulizers and pain medications will be administered as well. He is due for hemodialysis. Dr. Urena has been consulted and hemodialysis has been accomplished this morning already. I anticipate that with improvement of his symptoms, he probably can be discharged in the morning. TREVIN VARELA MD DR: INGRID/roni JOB#: [id number] / [id number] YON
[2016-10-26 15:26] LABS: INR 1.1 (0.8-1.1); PROTHROMBIN TIME PATIENT 13.4 SEC (11.7-14.0)
[2016-10-26] MEDS ORDERED: WARFARIN 5 MG TABLET. PO SCH (16:00)
[2016-10-26] MEDS: ALPRAZOLAM 0.25 MG TABLET PO SCH ×2 (16:29→23:23)
[2016-10-26] MEDS: HYDRALAZINE 50 MG TABLET PO SCH ×2 (16:30→23:23)
[2016-10-26] MEDS: MORPHINE ER 30 MG TABLET.ER PO SCH ×3 (16:31→23:26)
[2016-10-26] MEDS: SEVELAMER CARBONATE 800 MG TABLET. PO SCH (16:32)
[2016-10-26] MEDS: SUCRALFATE 1 GM TABLET. PO SCH (16:32)
[2016-10-26] MEDS: DEXAMETHASONE 0.1% OPHTH SOLUTION 5ML BOTTLE. OS SCH ×2 (16:35→23:24)
[2016-10-26] MEDS: LIDOCAINE (700MG/PATCH) PATCH. TD SCH (16:35)
[2016-10-26] MEDS: KETOROLAC TROMETHAMINE 0.5% OPHTH SOLUTION 3ML BOTTLE. OS SCH ×2 (16:35→23:25)
[2016-10-26] MEDS: MOXIFLOXACIN 0.5% OPHTH SOLUTION 3ML BOTTLE. OD SCH ×2 (16:36→23:24)
[2016-10-26 19:00] VITALS: BP 138/90
[2016-10-26] MEDS ORDERED: ATORVASTATIN CALCIUM 40 MG TABLET. PO SCH (21:00)
[2016-10-26] MEDS ORDERED: CALCIUM CARBONATE 500 MG TAB.CHEW PO SCH (21:00)
[2016-10-26] MEDS ORDERED: FAMOTIDINE 20 MG TABLET. PO SCH (21:00)
[2016-10-26] MEDS ORDERED: ZOLPIDEM 5 MG TABLET. PO SCH (21:00)
[2016-10-26] MEDS: METOPROLOL TART IMMED RELEASE 50 MG TABLET PO SCH (23:21)
[2016-10-26] MEDS: DICLOFENAC SODIUM 1% TOPICAL GEL 100GM TUBE. TP SCH (23:26)
[2016-10-26 23:32] VITALS: BP 114/74
[2016-10-27 03:00] VITALS: BP 117/68
[2016-10-27 04:51] LABS: BASO % 1 % (0-3); EOS % 3 % (0-3); HEMATOCRIT 39.3 % (39.0-53.0); HEMOGLOBIN 12.8 g/dL (13.0-17.5); LYMPH % 29 % (24-48); MEAN CORPUSCULAR HEMOGLOBIN 30 pg (25-35); MEAN CORPUSCULAR HGB CONC 33 g/dL (31-37); MEAN CORPUSCULAR VOLUME 92 fL (79-100); MONO % 17 % (0-9); NEUT % 50 % (31-73); PLATELET COUNT 104 x10^3/uL (140-400); RED BLOOD COUNT 4.25 x10^6/uL (4.30-5.70); RED CELL DISTRIBUTION WIDTH 14.5 % (11.5-14.5); WHITE BLOOD COUNT 3.4 x10^3/uL (4.0-11.0)
[2016-10-27 05:03] LABS: CALCIUM 8.3 mg/dL (8.5-10.1); CREATININE 5.2 mg/dL (0.7-1.3); GFR 14.2
[2016-10-27 05:18] LABS: CHOLESTEROL/HDL RATIO 4.8
[2016-10-27] MEDS: DEXAMETHASONE 0.1% OPHTH SOLUTION 5ML BOTTLE. OS SCH ×4 (05:35→13:26)
[2016-10-27 07:00] VITALS: BP 111/61
[2016-10-27] MEDS ORDERED: CLOPIDOGREL BISULFATE 75 MG TABLET PO SCH (07:00)
[2016-10-27] MEDS ORDERED: LEVOTHYROXINE 175 MCG TABLET PO SCH (07:00)
[2016-10-27 08:26] LABS: PROTHROMBIN TIME PATIENT 12.8 SEC (11.7-14.0)
[2016-10-27] MEDS ORDERED: ISOSORBIDE MONONITRATE ER 30 MG TAB.ER.24H PO SCH (09:00)
[2016-10-27] MEDS: MORPHINE ER 30 MG TABLET.ER PO SCH ×2 (09:00→13:27)
[2016-10-27] MEDS: HYDRALAZINE 50 MG TABLET PO SCH ×2 (09:00→14:00)
[2016-10-27] MEDS ORDERED: FOLIC/VIT B COMP W-C (RENAL) TABLET. PO SCH (09:00)
[2016-10-27] MEDS: SEVELAMER CARBONATE 800 MG TABLET. PO SCH ×2 (09:31→13:25)
[2016-10-27] MEDS: SUCRALFATE 1 GM TABLET. PO SCH (09:32)
[2016-10-27] MEDS: ALPRAZOLAM 0.25 MG TABLET PO SCH ×2 (09:32→13:27)
[2016-10-27] MEDS: METOPROLOL TART IMMED RELEASE 50 MG TABLET PO SCH (09:32)
[2016-10-27] MEDS: DICLOFENAC SODIUM 1% TOPICAL GEL 100GM TUBE. TP SCH (09:33)
[2016-10-27] MEDS: MOXIFLOXACIN 0.5% OPHTH SOLUTION 3ML BOTTLE. OD SCH ×2 (09:39→13:26)
[2016-10-27] MEDS: KETOROLAC TROMETHAMINE 0.5% OPHTH SOLUTION 3ML BOTTLE. OS SCH ×2 (09:39→13:26)
[2016-10-27] MEDS: LIDOCAINE (700MG/PATCH) PATCH. TD SCH (09:41)
--- NOTE | 2016-10-27 10:59 | PDOC ---
Renal-Progress Notes Subjective Notes Notes NONE History of Present Illness Hx of present illness STABLE Vitals Vitals Vital Signs Date Time Temp Pulse Resp B/P Pulse Ox O2 Delivery O2 Flow Rate FiO2 10/27/16 09:33 84 139/81 10/27/16 07:00 98.4 18 95 Room Air 98.4 Weight Weight [ ] I.O. Intake and Output Intake and Output 10/27/16 07:00 Intake Total 1800 ml Output Total 300 ml Balance 1500 ml Intake Oral 1800 ml Output Urine Total 300 ml # Voids 2 Labs Labs Laboratory Tests Test 10/26/16 14:55 10/27/16 04:00 10/27/16 07:07 Prothrombin Time 13.4SEC (11.7-14.0) 12.8SEC (11.7-14.0) Prothromb Time International Ratio 1.1 (0.8-1.1) 1.0 (0.8-1.1) Troponin I Quantitative 0.033ng/mL (0.000-0.055) White Blood Count 3.4x10^3/uL (4.0-11.0) Red Blood Count 4.25x10^6/uL (4.30-5.70) Hemoglobin 12.8g/dL (13.0-17.5) Hematocrit 39.3% (39.0-53.0) Mean Corpuscular Volume 92fL (79-100) Mean Corpuscular Hemoglobin 30pg (25-35) Mean Corpuscular Hemoglobin Concent 33g/dL (31-37) Red Cell Distribution Width 14.5% (11.5-14.5) Platelet Count 104x10^3/uL (140-400) Neutrophils (%) (Auto) 50% (31-73) Lymphocytes (%) (Auto) 29% (24-48) Monocytes (%) (Auto) 17% (0-9) Eosinophils (%) (Auto) 3% (0-3) Basophils (%) (Auto) 1% (0-3) Neutrophils # (Auto) 1.7x10^3uL (1.8-7.7) Lymphocytes # (Auto) 1.0x10^3/uL (1.0-4.8) Monocytes # (Auto) 0.6x10^3/uL (0.0-1.1) Eosinophils # (Auto) 0.1x10^3/uL (0.0-0.7) Basophils # (Auto) 0.0x10^3/uL (0.0-0.2) Sodium Level 135mmol/L (136-145) Potassium Level 4.0mmol/L (3.5-5.1) Chloride Level 95mmol/L (98-107) Carbon Dioxide Level 31mmol/L (21-32) Anion Gap 9 (6-14) Blood Urea Nitrogen 48mg/dL (8-26) Creatinine 5.2mg/dL (0.7-1.3) Estimated GFR (Cockcroft-Gault) 14.2 Glucose Level 174mg/dL (70-99) Calcium Level 8.3mg/dL (8.5-10.1) Triglycerides Level 204mg/dL (0-150) Cholesterol Level 254mg/dL (0-200) LDL Cholesterol, Calculated 160mg/dL (0-100) VLDL Cholesterol, Calculated 41mg/dL (0-40) HDL Cholesterol 53mg/dL (40-60) Cholesterol/HDL Ratio 4.8 Glucose (Fingerstick) 152mg/dL (70-99) Review of Systems Constitutional: yes: alert, oriented, weakness Ears/Nose/Throat: Yes: no symptom reported Pulmonary: Yes no symptom reported Cardiovascular: Yes no symptom reported Gastrointestional: Yes: constipation Musculoskeletal: Yes: muscle stiffness Psychiatric/Neurological: Yes: no symptom reported Physical Exam General Appearance: no apparent distress Heart: S1S2 Abdomen: soft, bowel sounds present Extremities: pulses present Neurology: alert Musculoskeletal: Osteoarthritis Assessment Assessment IMP INFLUENZA ANEMIA ESRD PLAN HD TOMORROW SUPPORTIVE CARE GRACE VILLEDA MD Oct 27, 2016 10:58
[2016-10-27 11:00] VITALS: BP 129/70
[2016-10-27] MEDS ORDERED: HYDR-2672 PO (15:03)
[2016-10-27] MEDS ORDERED: OSEL30CA PO (15:03)
--- NOTE | 2016-10-28 23:26 | DS ---
DATE OF DISCHARGE: 10/27/2016 CHIEF COMPLAINT: Shortness of breath, cough. HISTORY OF PRESENT ILLNESS: The patient is a 51-year-old -[place] gentleman with end-stage renal disease, on dialysis, who presented to the Emergency Room with central chest pain with radiation through to his back. This was respirophasic. In the Emergency Room, influenza screen was positive and was admitted for chest pain rule out. This was accomplished with serial enzymes and EKGs. He had a Cardiology consult. This was deemed to be secondary to pleuritis because of influenza rather than cardiac in etiology. For the influenza infection, he was started on Tamiflu. He felt much, much improved on day #2. He was therefore discharged with ongoing Tamiflu therapy to home. PHYSICAL EXAMINATION: VITAL SIGNS: Showed a blood pressure of 129/70, heart rate of 83, respiratory rate at 18. He is afebrile. GENERAL: This is an obese -[place] gentleman, alert and oriented, in no acute distress. LUNGS: Fairly clear with cough, especially with deep breathing. HEART: Regular rate and rhythm. ABDOMEN: Has positive bowel sounds, soft, nontender. EXTREMITIES: Show no edema. DISCHARGE DIAGNOSES: Influenza, respirophasic chest pain/pleuritis. DISCHARGE DISPOSITION: To home. DISCHARGE CONDITION: Improved. DISCHARGE MEDICATIONS: Please refer to MAR. DISCHARGE INSTRUCTIONS: The patient will follow up with dialysis as per his usual routine. TREVIN VARELA MD DR: INGRID/nts JOB#: [id number] / [id number] JUAN MANUEL Nichols MD
[2016-10-29] MEDS ORDERED: ERGOCALCIFEROL (VITAMIN D2) 50,000 UNIT CAPSULE PO SCH (09:00)
[2016-11-02] MEDS ORDERED: DARBEPOETIN ALFA 100 MCG/0.5 ML DISP.SYRIN. SQ SCH (21:00)
== END 2016-10-27 17:10 | disposition home or self-care (01) | DRG 193 ==
LOC: ER 03:17 → 2 NORTH 03:44
PROVIDERS: ADMIT Internal Medicine; ATTEND Internal Medicine
DX: J10.1 Influenza due to other identified influenza virus with other respiratory manifestations (principal); N18.6 End stage renal disease; N25.81 Secondary hyperparathyroidism of renal origin; I13.2 Hypertensive heart and chronic kidney disease with heart failure and with stage 5 chronic kidney disease, or end stage renal disease; G89.29 Other chronic pain; I25.10 Atherosclerotic heart disease of native coronary artery without angina pectoris; E10.42 Type 1 diabetes mellitus with diabetic polyneuropathy; E10.22 Type 1 diabetes mellitus with diabetic chronic kidney disease; I48.91 Unspecified atrial fibrillation; I50.9 Heart failure, unspecified; E10.51 Type 1 diabetes mellitus with diabetic peripheral angiopathy without gangrene; J44.9 Chronic obstructive pulmonary disease, unspecified; J45.909 Unspecified asthma, uncomplicated; K21.9 Gastro-esophageal reflux disease without esophagitis; Z96.652 Presence of left artificial knee joint; E66.01 Morbid (severe) obesity due to excess calories; F41.9 Anxiety disorder, unspecified; M19.90 Unspecified osteoarthritis, unspecified site; R07.89 Other chest pain; D64.9 Anemia, unspecified; M54.5 Low back pain; Z23 Encounter for immunization; Z95.5 Presence of coronary angioplasty implant and graft; Z99.2 Dependence on renal dialysis; I25.2 Old myocardial infarction; Z82.49 Family history of ischemic heart disease and other diseases of the circulatory system; Z86.73 Personal history of transient ischemic attack (TIA), and cerebral infarction without residual deficits; Z68.34 Body mass index [BMI] 34.0-34.9, adult; Z88.8 Allergy status to other drugs, medicaments and biological substances; Z91.041 Radiographic dye allergy status; Z88.0 Allergy status to penicillin; Z91.013 Allergy to seafood
CPT/HCPCS: 36415; 71010; 80048; 80061; 82947; 84484; 85007; 85027; 85610; 87804; 93005; 94640; 96374; 96375; J2270; J3360; 99285-25

== ENCOUNTER 2017-02-16 06:47 | Outpatient (CLI) | payer MEDICARE, OTHER ==
[~2017-02-16 06:47] MED LIST changes: +ASPI-612 PO; -ASPI325T4 PO; +ASPI325T8 PO; -ASPI81TA9 PO; +BROM5DRO3 LEFTEYE; +CITA20TA5 PO; +DEXA5DRO OS; +DICL100G18 TP; -DICL100G7 TP; -ERGO500012 PO; +ERGO500027 PO; -ESCI10TA PO; +ESCITALOPRAM OX10 MG PO; -GUAI600T38 PO; +GUAI600T47 PO; -HYDR-2672 PO; +HYDR-2766 PO; +KETO5DRO24 OS; -LANS15CA66 PO; +LANS15CA78 PO; +LEVE500T6 PO; +LOSA100T6 PO; -MELO-150 PO; +MELO15TA23 PO; +MOXI3DRO2 EACHEYE; +MOXI3DRO2 LEFTEYE; +OSEL30CA PO; +OXYC5CAP PO; -PRAS10TA4 PO; +PRAS10TA9 PO; +PRED5DRO16 OS; +RISP0.5T3 PO; +ROPI0.252 PO; -SUCR1TAB29 PO; +SUCR1TAB35 PO; +TRAZ50TA15 PO; +WARF-78 PO; -WARF10TA PO; +WARF10TA45 PO; -WARF5TAB PO
[2017-02-16 07:33] LABS: BASO # 0.1 x10^3/uL (0.0-0.2); BASO % 2 % (0-3); EOS % 3 % (0-3); HEMATOCRIT 37.9 % (39.0-53.0); HEMOGLOBIN 12.4 g/dL (13.0-17.5); LYMPH # 1.4 x10^3/uL (1.0-4.8); LYMPH % 27 % (24-48); MEAN CORPUSCULAR HEMOGLOBIN 31 pg (25-35); MEAN CORPUSCULAR HGB CONC 33 g/dL (31-37); MEAN CORPUSCULAR VOLUME 94 fL (79-100); MONO % 12 % (0-9); NEUT % 56 % (31-73); PLATELET COUNT 159 x10^3/uL (140-400); RED BLOOD COUNT 4.05 x10^6/uL (4.30-5.70); RED CELL DISTRIBUTION WIDTH 14.7 % (11.5-14.5); WHITE BLOOD COUNT 5.1 x10^3/uL (4.0-11.0)
[2017-02-16 07:47] VITALS: BP 112/64
[2017-02-16] MEDS ORDERED: IODIXANOL 320MG/ML 50ML VIAL. ONE (08:21)
[2017-02-16] MEDS ORDERED: IODIXANOL 320 MG/ML 100 ML VIAL. ONE (08:21)
[2017-02-16] MEDS ORDERED: LIDOCAINE 1% / SOD BICARB 8.4% 20 ML VIAL. IJ ONE ×2 (08:21→09:00)
[2017-02-16] MEDS ORDERED: methylPREDNISolone SOD SUCC PF 125 MG/2 ML VIAL. ONE (08:35)
[2017-02-16] MEDS ORDERED: diphenhydrAMINE 50 MG/ML VIAL ONE (08:35)
[2017-02-16] MEDS ORDERED: FAMOTIDINE 20 MG/2 ML VIAL ONE (08:35)
[2017-02-16] MEDS ORDERED: MIDAZOLAM HCL/PF 5 MG/5 ML VIAL. ONE (08:43)
[2017-02-16] MEDS ORDERED: fentaNYL PF VIAL 250 MCG/5 ML VIAL ONE (08:44)
[2017-02-16] MEDS ORDERED: HEPARIN for IV BOLUS 10,000 UNIT/10 ML VIAL. ONE (08:44)
[2017-02-16] MEDS ORDERED: IODIXANOL 320 MG/ML 100 ML VIAL. IART ONE (09:00)
[2017-02-16] MEDS ORDERED: diphenhydrAMINE 50 MG/ML VIAL IVP ONE (09:00)
[2017-02-16] MEDS ORDERED: FAMOTIDINE 20 MG/2 ML VIAL IVP ONE (09:00)
[2017-02-16] MEDS ORDERED: MIDAZOLAM HCL/PF 5 MG/5 ML VIAL. IV ONE (09:00)
[2017-02-16] MEDS ORDERED: methylPREDNISolone SOD SUCC PF 125 MG/2 ML VIAL. IV ONE (09:00)
[2017-02-16] MEDS ORDERED: fentaNYL PF VIAL 250 MCG/5 ML VIAL IV ONE (09:00)
[2017-02-16 09:03] VITALS: BP 140/82
[2017-02-16 09:30] VITALS: BP 140/82
[2017-02-16 10:00] VITALS: BP 140/82
--- NOTE | 2017-02-16 12:12 | RAD ---
Left upper extremity arteriovenous fistulogram 02/16/2017 Indication: Pain with dialysis. Discussion: The risks and benefits of the procedure were discussed with the patient. Informed consent was obtained. A timeout procedure was performed. The left upper extremity was prepped and draped using maximum sterile barrier technique. Limited ultrasound evaluation of the left upper extremity fistula demonstrated a patent arteriovenous anastomosis. The fistula appear grossly patent ultrasound. The fistula was accessed just beyond the arterial anastomosis. Multiple fistulogram were obtained. No high-grade stenosis or occlusion is seen. Minimal narrowing at the junction of the left innominate vein and SVC is seen which does not appear to be flow-limiting. Left cephalic stent is widely patent. 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 The AV anastomosis arterial inflow is patent. The sheath was removed and a persistent suture placed for hemostasis. No immediate complications were identified. Fluoroscopy time 1.8 minutes Dose area product 38 Gycm2 The procedure was performed under conscious sedation including continuous cardiopulmonary monitoring via a dedicated sedation nurse. Sedation time: 20 minutes Impression: 1.Minimal narrowing at the junction of the left innominate vein and SVC, which does not appear to be flow-limiting. No hemodynamically significant stenosis is identified. 2. 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 Recommend avoiding this area during dialysis access.
== END 2017-02-16 10:00 | disposition home or self-care (01) ==
LOC: INTRAD 06:47
PROVIDERS: ATTEND Internal Medicine Nephrology
DX: N18.6 End stage renal disease (principal); I13.2 Hypertensive heart and chronic kidney disease with heart failure and with stage 5 chronic kidney disease, or end stage renal disease; E11.22 Type 2 diabetes mellitus with diabetic chronic kidney disease; Z99.2 Dependence on renal dialysis; F03.90 Unspecified dementia, unspecified severity, without behavioral disturbance, psychotic disturbance, mood disturbance, and anxiety; I50.9 Heart failure, unspecified; I25.10 Atherosclerotic heart disease of native coronary artery without angina pectoris; I73.9 Peripheral vascular disease, unspecified; E78.00 Pure hypercholesterolemia, unspecified; I48.91 Unspecified atrial fibrillation; J45.909 Unspecified asthma, uncomplicated; K21.9 Gastro-esophageal reflux disease without esophagitis; Z87.39 Personal history of other diseases of the musculoskeletal system and connective tissue; Z96.652 Presence of left artificial knee joint; M19.90 Unspecified osteoarthritis, unspecified site; Z86.39 Personal history of other endocrine, nutritional and metabolic disease; E03.9 Hypothyroidism, unspecified; F41.9 Anxiety disorder, unspecified; F32.9 Major depressive disorder, single episode, unspecified; D64.9 Anemia, unspecified; Z86.14 Personal history of Methicillin resistant Staphylococcus aureus infection; Z86.73 Personal history of transient ischemic attack (TIA), and cerebral infarction without residual deficits; Z82.49 Family history of ischemic heart disease and other diseases of the circulatory system; Z83.3 Family history of diabetes mellitus; Z88.8 Allergy status to other drugs, medicaments and biological substances; Z88.0 Allergy status to penicillin; Z91.013 Allergy to seafood
CPT/HCPCS: 36415; 36901; 76937; 85027; 85610; 99152; C1892; C1894; J1200; J2250; J2930; J3010; S0028

== ENCOUNTER 2017-02-28 17:21 | Inpatient (IN) | payer MEDICARE, OTHER ==
[~2017-02-28] VITALS: Ht 198.1 cm; Wt 149.0 kg
[2017-02-28 18:24] LABS: BASO # 0.1 x10^3/uL (0.0-0.2); BASO % 1 % (0-3); EOS % 2 % (0-3); HEMATOCRIT 38.1 % (39.0-53.0); HEMOGLOBIN 12.8 g/dL (13.0-17.5); LYMPH # 1.2 x10^3/uL (1.0-4.8); LYMPH % 26 % (24-48); MEAN CORPUSCULAR HEMOGLOBIN 31 pg (25-35); MEAN CORPUSCULAR HGB CONC 34 g/dL (31-37); MEAN CORPUSCULAR VOLUME 92 fL (79-100); MONO % 13 % (0-9); NEUT % 57 % (31-73); PLATELET COUNT 158 x10^3/uL (140-400); RED BLOOD COUNT 4.13 x10^6/uL (4.30-5.70); RED CELL DISTRIBUTION WIDTH 15.5 % (11.5-14.5); WHITE BLOOD COUNT 4.5 x10^3/uL (4.0-11.0)
[2017-02-28] MEDS: MORPHINE SULFATE 4 MG/ML DISP.SYRIN. IV/SQ PRN ×2 (18:27→19:05)
--- NOTE | 2017-02-28 19:08 | PHYS DOC ---
Past Medical History Past Medical History: A-Fib, Anxiety, Asthma, CAD, CHF, CVA, Diabetes-Type I, GERD, High Cholesterol, LA, Renal Disease, Renal Failure, TIA, Vascular Disease Additional Past Medical Histor: morbid obesity,LEFT ARM FISTULA PLACED ON MAR 30 Past Surgical History: Other Additional Past Surgical Histo: HD SHUNT, TOE AMPUTATION,RIGHT ARM SX RIGHT ARM FX, SCROTAL SX, HEART STENT Alcohol Use: None Drug Use: None Adult General Chief Complaint Chief Complaint: left foot ulcer HPI HPI Patient is a 51 year old male sent to the ED from the wound clinic with the complaint of worsening ulcer on the plantar aspect of his left foot. He is a dialysis patient, he dialyzes Sunday and Sunday, he did dialyze yesterday per routine and had no problems. The patient states he has really had this foot wound for 6 years ever since he had an injury in [place]. It'll heal up for a while and then break open again. Recently he has been following at the wound Center for debridement. Evidently he was on Bactrim for a day or 2 but it was DC'd because of his renal function. Patient states he is having a lot of pain at this time. His wound is worse than it has been lately but it has been worse than this before. 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 PCP Dr. Plasencia Hose Stripper Dr. White Review of Systems Review of Systems Constitutional: Denies fever or chills [] HENT: Denies nasal congestion or sore throat [] Respiratory: Denies cough or shortness of breath [] Cardiovascular: Denies chest pain GI: Denies abdominal pain, nausea, vomiting, bloody stools or diarrhea [] : Denies dysuria or hematuria [] Musculoskeletal: Left foot pain as in history of present illness Integument: Denies rash or skin lesions [] Neurologic: Denies headache, focal weakness or sensory changes [] Current Medications Current Medications Current Medications Medications (Trade) Dose Ordered Sig/Florence Start Time Stop Time Status Last Admin Dose Admin Morphine Sulfate 4 mg PRN Q15MIN PRN 02/28/17 18:00 03/01/17 17:59 02/28/17 19:05 4 MG Allergies Allergies Allergies Coded Allergies Type Severity Reaction Last Updated Verified iodine Allergy Severe THROAT SWELLING 03/29/16 Yes lisinopril Allergy Severe 03/16/16 Yes Fish Containing Products Allergy Intermediate 03/16/16 Yes Penicillins Allergy Intermediate SEE COMMENT 04/13/16 Yes piperacillin Allergy Intermediate Hives 03/16/16 Yes tazobactam Allergy Intermediate 03/16/16 Yes Physical Exam Physical Exam Constitutional: Well developed, well nourished, no acute distress, non-toxic appearance. Alert, mentating normally. HENT: Normocephalic, atraumatic, bilateral external ears normal, nose normal. [] Eyes: conjunctiva normal, no discharge. [] Neck: Normal range of motion, no stridor. [] Cardiovascular:Heart rate regular rhythm, no murmur [] Lungs & Thorax: Bilateral breath sounds clear to auscultation [] Abdomen: Bowel sounds normal, soft, no tenderness, no masses, no pulsatile masses. [] Skin: Warm, dry, no erythema, no rash. [] Extremities: No tenderness, no cyanosis, no clubbing, ROM intact, no edema. Left foot: Old amputation of toes one through 3 is well-healed. On the plantar aspect of the foot, over the first MTP, there is a deep ulcer approximately 2.5 cm in diameter. There is no obvious surrounding cellulitis. Neurologic: Alert and oriented X 3, normal motor function, normal sensory function, no focal deficits noted. [] Current Patient Data Vital Signs Vital Signs Date Time Temp Pulse Resp B/P (MAP) Pulse Ox O2 Delivery O2 Flow Rate FiO2 02/28/17 17:30 98.7 99 18 158/73 (101) 100 Room Air 98.7 Lab Values Laboratory Tests Test 02/28/17 18:10 White Blood Count 4.5 x10^3/uL (4.0-11.0) Red Blood Count 4.13 x10^6/uL (4.30-5.70) L Hemoglobin 12.8 g/dL (13.0-17.5) L Hematocrit 38.1 % (39.0-53.0) L Mean Corpuscular Volume 92 fL (79-100) Mean Corpuscular Hemoglobin 31 pg (25-35) Mean Corpuscular Hemoglobin Concent 34 g/dL (31-37) Red Cell Distribution Width 15.5 % (11.5-14.5) H Platelet Count 158 x10^3/uL (140-400) Neutrophils (%) (Auto) 57 % (31-73) Lymphocytes (%) (Auto) 26 % (24-48) Monocytes (%) (Auto) 13 % (0-9) H Eosinophils (%) (Auto) 2 % (0-3) Basophils (%) (Auto) 1 % (0-3) Neutrophils # (Auto) 2.6 x10^3uL (1.8-7.7) Lymphocytes # (Auto) 1.2 x10^3/uL (1.0-4.8) Monocytes # (Auto) 0.6 x10^3/uL (0.0-1.1) Eosinophils # (Auto) 0.1 x10^3/uL (0.0-0.7) Basophils # (Auto) 0.1 x10^3/uL (0.0-0.2) Laboratory Tests 02/28/17 18:10 EKG EKG [] Radiology/Procedures Radiology/Procedures [] Course & Med Decision Making Course & Med Decision Making Pertinent Labs and Imaging studies reviewed. (See chart for details) 51-year-old male dialysis patient who comes in with worsening left foot ulcer, sent from the wound clinic for inpatient care including IV antibiotics. I checked labs and an x-ray, give the patient some IV pain medicine. I discussed the case with Dr. Horton, [facility] medicine, who will admit the patient. I wrote bridge orders. I will leave the choice of antibiotics to the hospital medicine and infectious disease specialist. [] Dragon Disclaimer Dragon Disclaimer This electronic medical record was generated, in whole or in part, using a voice recognition dictation system. Departure Departure Impression: Primary Impression: Foot ulcer, left Additional Impression: End stage renal disease Disposition: ADMITTED INPATIENT Admitting Physician: Neeraj Horton Condition: STABLE Referrals: UNKNOWN PCP NAME (PCP) Problem Qualifiers KAREN BROWN MD Feb 28, 2017 19:08
[2017-02-28] MEDS ORDERED: MORPHINE SULFATE 4 MG/ML DISP.SYRIN. IV PRN (19:15)
[2017-02-28 19:31] LABS: CALCIUM 8.5 mg/dL (8.5-10.1); CREATININE 5.8 mg/dL (0.7-1.3); GFR 12.5; POTASSIUM 3.9 mmol/L (3.5-5.1)
--- NOTE | 2017-02-28 19:36 | PDOC1 ---
History and Physical Date of Admission Date of Admission 02/28/17 Identification/Chief Complaint Chief Complaint left sole wound Problems: Source Source: Patient History of Present Illness History of Present Illness 51yo M, esrd ON HD TTS, well known to us, was sent from wound care clinic for left sole wound. Pt said he has had this left sole wound for several month, usually fu with outpt wound care clinic, had toe amputation before too. Today he went to wound care, the doc over there did i and d, but feels he needs to come to hosp for abx and sent him here. He said he had Fever T 101 at home, no pain. denies N/V, chest pain. He does have RUQ abd pain for 1 month. BM normal . hE usually comes here every 2-3 months for either left arm AVF not function well , and HD cath infection and multiple bacteremia MSSA, and seizure. Past Medical History Cardiovascular: AFIB, CAD, CHF, HTN, ND, Hyperlipidemia, Other Pulmonary: Asthma, Other CENTRAL NERVOUS SYSTEM: CVA, Dementia, Periperal neuropathy, Seizure, TIA, Vertigo GI: Diverticulosis, Hemorrhoids Heme/Onc: Anemia NOS Hepatobiliary: No pertinent hx Psych: Anxiety, Depression Infectious disease: No pertinent hx Renal/: Chronic renal failure Endocrine: Diabetes, Hypothyroidism Past Surgical History Past Surgical History: Cataract Removal, Total knee replacement, Other Family History Family History: Hypertension Social History Smoke: No ALCOHOL: none Drugs: None Current Problem List Problem List Problems Medical Problems: (1) End stage renal disease Status: Acute (2) Foot ulcer, left Status: Acute Current Medications Current Medications Current Medications Medications (Trade) Dose Ordered Sig/Florence Start Time Stop Time Status Last Admin Dose Admin Morphine Sulfate 4 mg PRN Q2HR PRN 02/28/17 19:15 03/01/17 19:14 Allergies Allergies Allergies Coded Allergies Type Severity Reaction Last Updated Verified iodine Allergy Severe THROAT SWELLING 03/29/16 Yes lisinopril Allergy Severe 03/16/16 Yes Fish Containing Products Allergy Intermediate 03/16/16 Yes Penicillins Allergy Intermediate SEE COMMENT 04/13/16 Yes piperacillin Allergy Intermediate Hives 03/16/16 Yes tazobactam Allergy Intermediate 03/16/16 Yes ROS Review of System CONSTITUTIONAL: No fever or chills EYES: No recent changes SKIN: No rash or itching CARDIOVASCULAR: No chest pain, syncope, palpitations, or edema RESPIRATORY: No SOB or cough GASTROINTESTINAL: No nausea, vomiting or abdominal pain NEUROLOGICAL: No headaches or weakness ENDOCRINE: No cold or heat intolerance GENITOURINARY: No urgency or frequency of urination MUSCULOSKELETAL: No back pain or joint pain LYMPHATICS: No enlarged lymph nodes PSYCHIATRIC: No anxiety or depression Physical Exam Physical Exam GEN.: No apparent distress. Alert and oriented. HEENT: Head is normocephalic, atraumatic NECK: Supple. LUNGS: Clear to auscultation. HEART: RRR, S1, S2 present. Peripheral pulses intact ABDOMEN: Soft, nontender. Positive bowel sounds. EXTREMITIES: Without any cyanosis. NEUROLOGIC: Normal speech, normal tone PSYCHIATRIC: Normal affect, normal mood. SKIN: left sole has a open wound 3cm. some toes amputation. Vitals Vitals Vital Signs Date Time Temp Pulse Resp B/P (MAP) Pulse Ox O2 Delivery O2 Flow Rate FiO2 02/28/17 19:05 12 100 Room Air 02/28/17 17:30 98.7 99 158/73 (101) 98.7 Labs Labs Laboratory Tests Test 02/28/17 18:10 02/28/17 19:15 White Blood Count 4.5 x10^3/uL (4.0-11.0) Red Blood Count 4.13 x10^6/uL (4.30-5.70) Hemoglobin 12.8 g/dL (13.0-17.5) Hematocrit 38.1 % (39.0-53.0) Mean Corpuscular Volume 92 fL (79-100) Mean Corpuscular Hemoglobin 31 pg (25-35) Mean Corpuscular Hemoglobin Concent 34 g/dL (31-37) Red Cell Distribution Width 15.5 % (11.5-14.5) Platelet Count 158 x10^3/uL (140-400) Neutrophils (%) (Auto) 57 % (31-73) Lymphocytes (%) (Auto) 26 % (24-48) Monocytes (%) (Auto) 13 % (0-9) Eosinophils (%) (Auto) 2 % (0-3) Basophils (%) (Auto) 1 % (0-3) Neutrophils # (Auto) 2.6 x10^3uL (1.8-7.7) Lymphocytes # (Auto) 1.2 x10^3/uL (1.0-4.8) Monocytes # (Auto) 0.6 x10^3/uL (0.0-1.1) Eosinophils # (Auto) 0.1 x10^3/uL (0.0-0.7) Basophils # (Auto) 0.1 x10^3/uL (0.0-0.2) Sodium Level 134 mmol/L (136-145) Potassium Level 3.9 mmol/L (3.5-5.1) Chloride Level 93 mmol/L (98-107) Carbon Dioxide Level 30 mmol/L (21-32) Anion Gap 11 (6-14) Blood Urea Nitrogen 61 mg/dL (8-26) Creatinine 5.8 mg/dL (0.7-1.3) Estimated GFR (Cockcroft-Gault) 12.5 BUN/Creatinine Ratio 11 (6-20) Glucose Level 283 mg/dL (70-99) Calcium Level 8.5 mg/dL (8.5-10.1) Laboratory Tests Test 02/28/17 18:10 02/28/17 19:15 White Blood Count 4.5 x10^3/uL (4.0-11.0) Red Blood Count 4.13 x10^6/uL (4.30-5.70) Hemoglobin 12.8 g/dL (13.0-17.5) Hematocrit 38.1 % (39.0-53.0) Mean Corpuscular Volume 92 fL (79-100) Mean Corpuscular Hemoglobin 31 pg (25-35) Mean Corpuscular Hemoglobin Concent 34 g/dL (31-37) Red Cell Distribution Width 15.5 % (11.5-14.5) Platelet Count 158 x10^3/uL (140-400) Neutrophils (%) (Auto) 57 % (31-73) Lymphocytes (%) (Auto) 26 % (24-48) Monocytes (%) (Auto) 13 % (0-9) Eosinophils (%) (Auto) 2 % (0-3) Basophils (%) (Auto) 1 % (0-3) Neutrophils # (Auto) 2.6 x10^3uL (1.8-7.7) Lymphocytes # (Auto) 1.2 x10^3/uL (1.0-4.8) Monocytes # (Auto) 0.6 x10^3/uL (0.0-1.1) Eosinophils # (Auto) 0.1 x10^3/uL (0.0-0.7) Basophils # (Auto) 0.1 x10^3/uL (0.0-0.2) Sodium Level 134 mmol/L (136-145) Potassium Level 3.9 mmol/L (3.5-5.1) Chloride Level 93 mmol/L (98-107) Carbon Dioxide Level 30 mmol/L (21-32) Anion Gap 11 (6-14) Blood Urea Nitrogen 61 mg/dL (8-26) Creatinine 5.8 mg/dL (0.7-1.3) Estimated GFR (Cockcroft-Gault) 12.5 BUN/Creatinine Ratio 11 (6-20) Glucose Level 283 mg/dL (70-99) Calcium Level 8.5 mg/dL (8.5-10.1) VTE Prophylaxis Ordered VTE Prophylaxis Devices: Yes VTE Pharmacological Prophylaxi: No Assessment/Plan Assessment/Plan left sole cellulitis, need to rule out osteo esrd on HD left arm AVF TTS h/o seizure h/o back pain from traumatic lumbar l1 commute fx post Fall abd pain RUQ, not clear etiology h/o CAD HYpothyroidism h/o DVT , on warfarin pafib htn obesity h/o multiple bacteremia GERD post toe amputation plan: id, gi, ortho, renal consult vanco, cefepime for now, pt got cefazolin before wound cx wound care cont home meds on warfarin, INR tmr cont HD tts MRI left foot rule out osteo abd US PTOT SKYLAR TSE MD Feb 28, 2017 19:36
[2017-02-28 19:37] LABS: ALBUMIN 3.3 g/dL (3.4-5.0); ALBUMIN/GLOBULIN RATIO 0.7 (1.0-1.7); TOTAL BILIRUBIN 0.4 mg/dL (0.2-1.0); TOTAL PROTEIN 8.2 g/dL (6.4-8.2)
[2017-02-28] MEDS ORDERED: ACETAMINOPHEN 325 MG TABLET. PO PRN (19:45)
[2017-02-28] MEDS ORDERED: DOCUSATE SODIUM 100 MG CAPSULE. PO PRN (19:45)
[2017-02-28] MEDS ORDERED: hydrALAZINE 20 MG/ML VIAL. IVP PRN (19:45)
[2017-02-28] MEDS ORDERED: traMADol 50 MG TABLET PO PRN (19:45)
[2017-02-28] MEDS ORDERED: NITROGLYCERIN SUBLINGUAL 0.4 MG BOTTLE OF 25. SL PRN (19:45)
[2017-02-28 20:00] LABS: INR 1.1 (0.8-1.1); PROTHROMBIN TIME PATIENT 13.3 SEC (11.7-14.0)
[2017-02-28] MEDS ORDERED: NON FORMULARY ITEM (Prednisolone Acetate 1 DROP) OS SCH (20:00)
[2017-02-28 20:15] VITALS: BP 160/84
[2017-02-28] MEDS ORDERED: VANCOMYCIN 2 GM in IV NORMAL SALINE 500ML BAG 500 ML IV ONE ×2 (20:30→23:30)
[2017-02-28] MEDS ORDERED: CEFEPIME HCL 1 GM in IV NORMAL SALINE 50ML 50 ML IV SCH (20:30)
[2017-02-28] MEDS: MOXIFLOXACIN 0.5% OPHTH SOLUTION 3ML BOTTLE. OU SCH (23:22)
[2017-02-28] MEDS: DEXAMETHASONE 0.1% OPHTH SOLUTION 5ML BOTTLE. OS SCH (23:22)
[2017-02-28] MEDS: KETOROLAC TROMETHAMINE 0.5% OPHTH SOLUTION 3ML BOTTLE. OS SCH (23:22)
[2017-02-28] MEDS: traZODone 50 MG TABLET. PO SCH (23:23)
[2017-02-28] MEDS: MORPHINE ER 30 MG TABLET.ER PO SCH (23:23)
[2017-02-28] MEDS: levETIRAcetam 500 MG TABLET PO SCH (23:23)
[2017-02-28] MEDS: risperiDONE 0.25 MG TABLET. PO SCH (23:24)
[2017-02-28] MEDS: ATORVASTATIN CALCIUM 40 MG TABLET. PO SCH (23:24)
[2017-02-28] MEDS: METOPROLOL TART IMMED RELEASE 50 MG TABLET. PO SCH (23:24)
[2017-02-28] MEDS: DICLOFENAC SODIUM 1% TOPICAL GEL 100GM TUBE. TP SCH (23:25)
[2017-02-28] MEDS: SUCRALFATE 1 GM TABLET. PO SCH (23:25)
[2017-02-28] MEDS: FAMOTIDINE 20 MG TABLET. PO SCH (23:25)
[2017-02-28] MEDS: MORPHINE SULFATE 2 MG/ML DISP.SYRIN. IV PRN (23:26)
[2017-02-28 23:30] VITALS: BP 151/87
[2017-02-28] MEDS: CEFEPIME HCL 1 GM in IV NORMAL SALINE 50ML 50 ML IV SCH (23:30)
[2017-03-01 02:40] VITALS: BP 158/67
[2017-03-01] MEDS ORDERED: DEXTROSE 50% 25 GM / 50ML DISP.SYRIN. IV PRN (03:00)
--- NOTE | 2017-03-01 03:13 | ACF ---
Admission Forms Criteria WOUND COMPLICATIONS Clinical Indications for Inpatient Care (Place 'X' for any and all applicable criteria): Ongoing inpatient care may be indicated for wound complications with ANY ONE of the following (1) (15): [X]I. Infection with ANY ONE of the following(32)(33): [ ]a) Temperature greater than 38.5 C (101.3 F) [ ]b) Evidence of tissue necrosis [ ]c) Erythema diameter expanding around wound despite treatment [ ]d) Mental status changes [ ]e) Dehydration [ ]f) Bacteremia [ ]g) Hemodynamic instability [ ]h) Suspected necrotizing fasciitis [ ]i) Rapidly spreading lesions [ ]j) High-risk location (eg, perineum, sternum, orbit) [X]k) High-risk coexisting clinical condition as indicated by ANY ONE of the following: [ ]i) Poorly controlled diabetes [ ]ii) Cirrhosis [X]iii) Renal failure [ ]iv) Neutropenia [ ] v) Asplenia [ ]vi) Immunosuppression (eg, AIDS, chronic corticosteroid use) [ ]viii) Other high-risk medical comorbidities [ ] II. Dehiscence requiring frequent monitoring or immediate treatment [ ] III. Hematoma with ANY ONE of the following: [ ]a) Hemodynamic instability or acute anemia due to rapid development of hematoma [ ]b) Neck hematoma causing airway compression [ ]c) Retroperitoneal hematoma [ ]d) Uncontrolled coagulopathy [ ]IV. Seroma with evidence of secondary infection and requirement for IV antibiotics [D](31) [ ]V. Pain that cannot be managed at lower level of care Extended stay beyond goal length of stay for primary condition may be needed until ALL of the following are present(1)(33)(34): [ ]a) Afebrile or fever resolving [ ]b) Hemodynamic stability [ ]c) Pain resolving [ ]d) Wound closed, continuity adequately restored, or wound manageable at lower level of care [ ]e) No drain needed or drain care manageable at lower level of care [ ]f) Wound hematoma or seroma resolving [ ]g) Antibiotics not needed or regimen manageable at lower level of care(38) [ ]h) Dressing care manageable at lower level of care [ ]i) Coagulopathy absent, resolved, or treatable at lower level of care [ ]j) Medical comorbidities resolved or treatable at lower level of care The original [employer] content created by [employer] has been revised. The portions of the content which have been revised are identified through the use of italic text or in bold, and [facility] has neither reviewed nor approved the modified material. All other unmodified content is copyright [facility]. Please see references footnoted in the original [facility] edition 2016 Admission Criteria Met?: Yes RAMONA BROWN Mar 01, 2017 03:13
[2017-03-01] MEDS: DEXAMETHASONE 0.1% OPHTH SOLUTION 5ML BOTTLE. OS SCH ×6 (04:00→20:46)
[2017-03-01 05:07] LABS: BASO # 0.1 x10^3/uL (0.0-0.2); BASO % 2 % (0-3); EOS % 3 % (0-3); HEMATOCRIT 33.8 % (39.0-53.0); HEMOGLOBIN 11.2 g/dL (13.0-17.5); LYMPH % 21 % (24-48); MEAN CORPUSCULAR HEMOGLOBIN 31 pg (25-35); MEAN CORPUSCULAR HGB CONC 33 g/dL (31-37); MEAN CORPUSCULAR VOLUME 95 fL (79-100); MONO % 13 % (0-9); NEUT % 61 % (31-73); PLATELET COUNT 132 x10^3/uL (140-400); RED BLOOD COUNT 3.58 x10^6/uL (4.30-5.70); WHITE BLOOD COUNT 4.7 x10^3/uL (4.0-11.0)
[2017-03-01 05:16] LABS: INR 1.1 (0.8-1.1); PROTHROMBIN TIME PATIENT 13.9 SEC (11.7-14.0)
[2017-03-01 05:22] LABS: CALCIUM 7.7 mg/dL (8.5-10.1); CREATININE 6.1 mg/dL (0.7-1.3); GFR 11.8; POTASSIUM 4.1 mmol/L (3.5-5.1)
[2017-03-01] MEDS: LEVOTHYROXINE 175 MCG TABLET PO SCH (06:28)
[2017-03-01] MEDS: MORPHINE SULFATE 2 MG/ML DISP.SYRIN. IV PRN ×3 (06:29→20:46)
[2017-03-01] MEDS: CLOPIDOGREL BISULFATE 75 MG TABLET PO SCH (06:29)
[2017-03-01 07:00] VITALS: BP 115/63
[2017-03-01] MEDS: ONDANSETRON PF 4 MG/2 ML VIAL. IV PRN (08:04)
[2017-03-01] MEDS: SUCRALFATE 1 GM TABLET. PO SCH ×2 (08:05→21:54)
[2017-03-01] MEDS: DICLOFENAC SODIUM 1% TOPICAL GEL 100GM TUBE. TP SCH ×2 (08:05→21:56)
[2017-03-01] MEDS: FOLIC/VIT B COMP W-C (RENAL) TABLET. PO SCH (08:05)
[2017-03-01] MEDS: METOPROLOL TART IMMED RELEASE 50 MG TABLET. PO SCH ×2 (08:05→21:55)
[2017-03-01] MEDS: ISOSORBIDE MONONITRATE ER 30 MG TAB.ER.24H PO SCH (08:06)
[2017-03-01] MEDS: CITALOPRAM 20 MG TABLET. PO SCH (08:06)
[2017-03-01] MEDS: levETIRAcetam 500 MG TABLET PO SCH ×2 (08:06→21:55)
[2017-03-01] MEDS: MORPHINE ER 30 MG TABLET.ER PO SCH ×3 (08:07→21:56)
[2017-03-01] MEDS: MOXIFLOXACIN 0.5% OPHTH SOLUTION 3ML BOTTLE. OU SCH ×3 (08:08→21:57)
[2017-03-01] MEDS: KETOROLAC TROMETHAMINE 0.5% OPHTH SOLUTION 3ML BOTTLE. OS SCH ×4 (08:09→21:57)
[2017-03-01] MEDS: INSULIN ASPART 300 UNITS/3 ML INSULN.PEN SQ SCH ×3 (08:14→19:07)
[2017-03-01] MEDS: LIDOCAINE (700MG/PATCH) PATCH. TD SCH (08:17)
--- NOTE | 2017-03-01 08:32 | RAD ---
Indication history of diabetes. Plantar ulcer. AP oblique and lateral views of the left foot were obtained. Note is made of a previous examination 12/07/2014. The patient is status post amputation of the first 3 toes. There is some soft tissue swelling. There is a suggested soft tissue ulcer medially and distally in the foot. Correlation with physical examination advised. An acute bony abnormality is not seen. Plain film findings of osteomyelitis are not seen. IMPRESSION: Soft tissue irregularity. No acute bony finding. No definite plain film findings of osteomyelitis
--- NOTE | 2017-03-01 08:48 | RAD ---
EXAM: ABDOMINAL ULTRASOUND. HISTORY: Right abdominal pain. COMPARISON: 05/18/2015. FINDINGS: Sonographic evaluation of the abdomen was performed. Hyperechogenicity of the hepatic parenchyma is consistent with diffuse hepatic steatosis. This lowers sensitivity for focal lesions. None are seen. The spleen measures 12.6 cm. The gallbladder is unremarkable without evidence of stones, wall thickening or pericholecystic fluid. There is no sonographic Barron sign. The common duct measures 4 mm. The pancreas is mostly obscured. Limited images of the pancreatic head reveal no gross abnormality. The right kidney measures 10.8 cm. Cortical thickness is preserved. Cortical echogenicity appears mildly increased, though visualization is limited. The lower pole is obscured. There is no hydronephrosis. The left kidney measures 9.7 cm. Cortical thickness and echogenicity are preserved. There is no hydronephrosis. The visualized portions of the abdominal aorta and inferior vena cava are grossly patent and normal in caliber. IMPRESSION: 1. Limited visualization of the pancreas, right kidney and midline structures. 2. No cause for acute abdominal pain is seen. 3. Mildly increased right renal cortical echogenicity may be a technical finding. Correlate clinically for intrinsic renal disease.
[2017-03-01] MEDS ORDERED: BROMFENAC SODIUM LEFTEYE SCH (09:00)
[2017-03-01] MEDS: CALCIUM CARBONATE 500 MG TABLET PO SCH ×3 (09:00→21:54)
--- NOTE | 2017-03-01 09:23 | PDOC2 ---
IM Consult Date of Admission DATE: 03/01/17 TIME: 09:16 Chief Complaint Chief Complaint Patient is a 51 year old male sent to the ED from the wound clinic with the complaint of worsening ulcer on the plantar aspect of his left foot. He is a dialysis patient, he dialyzes Sunday and Sunday, he did dialyze yesterday per routine and had no problems. The patient states he has really had this foot wound for 6 years ever since he had an injury in [place]. It'll heal up for a while and then break open again. Recently he has been following at the wound Center for debridement. Evidently he was on Bactrim for a day or 2 but it was DC'd because of his renal function. Patient states he is having a lot of pain at this time. His wound is worse than it has been lately but it has been worse than this before. 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 Pt has been started on vanc and cefepime. Pt says he did have fever, also rt flank/abd pain. N/V today. Problems: Past Medical History Cardiovascular: AFIB, CAD, CHF, HTN, MO, Hyperlipidemia, Other Pulmonary: Asthma, Other CENTRAL NERVOUS SYSTEM: CVA, Dementia, Periperal neuropathy, Seizure, TIA, Vertigo GI: Diverticulosis, Hemorrhoids Heme/Onc: Anemia NOS Hepatobiliary: No pertinent hx Psych: Anxiety, Depression Musculoskeletal: Osteoarthritis Infectious disease: No pertinent hx Renal/: Chronic renal failure Endocrine: Diabetes, Hypothyroidism Past Surgical History Past Surgical History: Cataract Removal, Total knee replacement, Other Past Family History Family History: Hypertension Past Social History PSH denies smoking, etoh, drugs Review of Symptoms Review of Symptoms General ROS: positive for - Psychological ROS: negative Ophthalmic ROS: negative ENT ROS: negative Allergy and Immunology ROS: negative Hematology and Lymphatic: negative Endocrine ROS: negative Respiratory ROS: no cold, cough, dyspnea. Cardiovascular ROS: no chest pain or dyspnea on exertion Gastrointestinal ROS: abdominal pain, change in bowel habits, or black or bloody stools Genito-Urinary ROS: no dysuria, trouble voiding, or hematuria Musculoskeletal ROS: no pain Neurological ROS: negative Dermatological ROS: no rash Medications Current Medications Acetaminophen (Tylenol) 650 mg PRN Q6HRS PRN PO FEVER; Start 02/28/17 at 19:45 Albuterol Sulfate (Ventolin Neb Soln) 2.5 mg PRN Q4HRS PRN NEB SHORTNESS OF BREATH; Start 02/28/17 at 20:00 Atorvastatin Calcium (Lipitor) 80 mg QHS PO Last administered on 02/28/17 23: 24; Start 02/28/17 at 21:00 Calcium Carbonate/ Glycine (Oscal) 2,000 mg TID PO ; Start 03/01/17 at 09:00 Cefepime HCl 1 gm/ Sodium Chloride 50 ml @ 100 mls/hr Q12HR IV ; Start at 20:30; Status Cancel Cefepime HCl 1 gm/ Sodium Chloride 50 ml @ 100 mls/hr QHS IV Last administered on 02/28/17 23:30; Start 02/28/17 at 23:30 Citalopram Hydrobromide (CeleXA) 20 mg DAILY PO Last administered on 03/01/17 08:06; Start 03/01/17 at 09:00 Clopidogrel Bisulfate (Plavix) 75 mg DAILY07 PO Last administered on 03/01/17 06:29; Start 03/01/17 at 07:00 Darbepoetin Jace (Aranesp) 100 mcg WEEKLY SQ ; Start 03/07/17 at 09:00 Dexamethasone (Maxidex) 1 drop Q4HRS OS Last administered on 03/01/17 08:09; Start 02/28/17 at 20:00 Dextrose (Dextrose 50%-Water Syringe) 12.5 gm PRN Q15MIN PRN IV SEE COMMENTS; Start 03/01/17 at 03:00 Diclofenac Sodium (Voltaren) 1 aayz BID TP Last administered on 03/01/17 08:05 ; Start 02/28/17 at 21:00 Docusate Sodium (Colace) 100 mg PRN DAILY PRN PO CONSTIPATION; Start 02/28/17 at 19:45 Ergocalciferol (Vitamin D2) 50,000 unit WEEKLY PO ; Start 03/07/17 at 09:00 Famotidine (Pepcid) 20 mg HS PO Last administered on 02/28/17 23:25; Start at 21:00 Hydralazine HCl (Apresoline) 10 mg PRN Q4HRS PRN IVP ELEVATED BP, SEE COMMENTS ; Start 02/28/17 at 19:45 Insulin Aspart (NovoLOG) 0-9 UNITS TIDWMEALS SQ Last administered on 03/01/17 08:14; Start 03/01/17 at 08:00 Isosorbide Mononitrate (Imdur) 30 mg DAILY PO Last administered on 03/01/17 08 :06; Start 03/01/17 at 09:00 Ketorolac Tromethamine (Acular) 1 drop QID OS Last administered on 03/01/17 08 :09; Start 02/28/17 at 21:00 Levetiracetam (Keppra) 500 mg BID PO Last administered on 03/01/17 08:06; Start 02/28/17 at 21:00 Levothyroxine Sodium (Synthroid) 175 mcg DAILY07 PO Last administered on 06:28; Start 03/01/17 at 07:00 Lidocaine (Lidoderm) 1 patch DAILY TD ; Start 03/01/17 at 09:00 Metoprolol Tartrate (Lopressor) 50 mg BID PO Last administered on 03/01/17 08: 05; Start 02/28/17 at 21:00 Morphine Sulfate 2 mg PRN Q2HR PRN IV PAIN Last administered on 03/01/17 06:29 ; Start 02/28/17 at 19:45 Morphine Sulfate 4 mg PRN Q15MIN PRN IV/SQ PAIN GREATER THAN 3/10 Last administered on 02/28/17 19:05; Start 02/28/17 at 18:00; Stop 03/01/17 at 17:59 Morphine Sulfate 4 mg PRN Q2HR PRN IV PAIN; Start 02/28/17 at 19:15; Stop 03/01 at 19:14 Morphine Sulfate (Ms Contin) 30 mg TID PO Last administered on 03/01/17 08:07 ; Start 02/28/17 at 21:00 Moxifloxacin HCl (Vigamox) 1 drop TID OU Last administered on 03/01/17 08:08; Start 02/28/17 at 21:00 Nitroglycerin (Nitrostat) 0.4 mg PRN Q5MIN PRN SL CHEST PAIN; Start 02/28/17 at 19:45 Non-Formulary Medication 1 drop Q1HR OS ; Start 02/28/17 at 20:00; Status UNV Non-Formulary Medication 5 ml DAILY LEFTEYE ; Start 03/01/17 at 09:00; Status UNV Ondansetron HCl (Zofran) 4 mg PRN Q6HRS PRN IV NAUSEA/VOMITING Last administered on 03/01/17 08:04; Start 02/28/17 at 19:45 Risperidone (RisperDAL) 0.5 mg QHS PO Last administered on 02/28/17 23:24; Start 02/28/17 at 21:00 Sucralfate (Carafate) 1 gm BID PO Last administered on 03/01/17 08:05; Start 02/28/17 at 21:00 Tramadol HCl (Ultram) 50 mg PRN Q6HRS PRN PO PAIN; Start 02/28/17 at 19:45 Trazodone HCl (Desyrel) 25 mg QHS PO Last administered on 02/28/17 23:23; Start 02/28/17 at 21:00 Vancomycin HCl 1 each 1X ONCE MC ; Start 03/04/17 at 22:30; Stop 03/04/17 at 22 :31 Vancomycin HCl (Vanco Per Pharmacy) 1 each PRN DAILY PRN MC SEE COMMENTS; Start 02/28/17 at 20:00 Vancomycin HCl 1.25 gm/Sodium Chloride 250 ml @ 167 mls/hr Q48H IV ; Start at 23:00 Vancomycin HCl 2 gm/Sodium Chloride 500 ml @ 250 mls/hr 1X ONCE IV ; Start at 20:30; Stop 02/28/17 at 22:29; Status Cancel Vancomycin HCl 2 gm/Sodium Chloride 500 ml @ 250 mls/hr 1X ONCE IV Last administered on 02/28/17 23:30; Start 02/28/17 at 23:30; Stop 03/01/17 at 01:29 ; Status DC Vitamin B Complex/ Vitamin C (Fernanda-Jimmy) 1 tab DAILY PO Last administered on 08:05; Start 03/01/17 at 09:00 Warfarin Sodium (Coumadin Per Physician) 1 each PRN DAILY PRN MC SEE COMMENTS; Start 02/28/17 at 20:00 Warfarin Sodium (Coumadin) 5 mg DAILY16 PO ; Start 7/20/17 at 16:00 Allergy Allergies Coded Allergies Type Severity Reaction Last Updated Verified iodine Allergy Severe THROAT SWELLING 03/29/16 Yes lisinopril Allergy Severe 03/16/16 Yes Fish Containing Products Allergy Intermediate 03/16/16 Yes Penicillins Allergy Intermediate SEE COMMENT 04/13/16 Yes piperacillin Allergy Intermediate Hives 03/16/16 Yes tazobactam Allergy Intermediate 03/16/16 Yes Physical Exam Physical Exam General appearance - alert,well appearing, and in no distress and oriented to person, place, and time Mental Status - alert, oriented to person, place, and time, affect appropriate to mood Head - normal Chest - clear to auscultation, no wheezes, rales or rhonchi, symmetric air entry Heart - S1 and S2 normal Abdomen - soft, nontender, nondistended, no masses or organomegaly Neurological - alert and oriented Musculoskeletal - no muscular tenderness noted Extremities - no pedal edema,, left foot wound with some erythema Skin - warm and dry Labs Laboratory Tests Test 02/28/17 18:10 02/28/17 19:15 02/28/17 20:46 03/01/17 04:40 White Blood Count 4.5 x10^3/uL (4.0-11.0) 4.7 x10^3/uL (4.0-11.0) Red Blood Count 4.13 x10^6/uL (4.30-5.70) 3.58 x10^6/uL (4.30-5.70) Hemoglobin 12.8 g/dL (13.0-17.5) 11.2 g/dL (13.0-17.5) Hematocrit 38.1 % (39.0-53.0) 33.8 % (39.0-53.0) Mean Corpuscular Volume 92 fL (79-100) 95 fL (79-100) Mean Corpuscular Hemoglobin 31 pg (25-35) 31 pg (25-35) Mean Corpuscular Hemoglobin Concent 34 g/dL (31-37) 33 g/dL (31-37) Red Cell Distribution Width 15.5 % (11.5-14.5) 15.0 % (11.5-14.5) Platelet Count 158 x10^3/uL (140-400) 132 x10^3/uL (140-400) Neutrophils (%) (Auto) 57 % (31-73) 61 % (31-73) Lymphocytes (%) (Auto) 26 % (24-48) 21 % (24-48) Monocytes (%) (Auto) 13 % (0-9) 13 % (0-9) Eosinophils (%) (Auto) 2 % (0-3) 3 % (0-3) Basophils (%) (Auto) 1 % (0-3) 2 % (0-3) Neutrophils # (Auto) 2.6 x10^3uL (1.8-7.7) 2.9 x10^3uL (1.8-7.7) Lymphocytes # (Auto) 1.2 x10^3/uL (1.0-4.8) 1.0 x10^3/uL (1.0-4.8) Monocytes # (Auto) 0.6 x10^3/uL (0.0-1.1) 0.6 x10^3/uL (0.0-1.1) Eosinophils # (Auto) 0.1 x10^3/uL (0.0-0.7) 0.1 x10^3/uL (0.0-0.7) Basophils # (Auto) 0.1 x10^3/uL (0.0-0.2) 0.1 x10^3/uL (0.0-0.2) Prothrombin Time 13.3 SEC (11.7-14.0) 13.9 SEC (11.7-14.0) Prothromb Time International Ratio 1.1 (0.8-1.1) 1.1 (0.8-1.1) Sodium Level 134 mmol/L (136-145) 137 mmol/L (136-145) Potassium Level 3.9 mmol/L (3.5-5.1) 4.1 mmol/L (3.5-5.1) Chloride Level 93 mmol/L (98-107) 97 mmol/L (98-107) Carbon Dioxide Level 30 mmol/L (21-32) 31 mmol/L (21-32) Anion Gap 11 (6-14) 9 (6-14) Blood Urea Nitrogen 61 mg/dL (8-26) 67 mg/dL (8-26) Creatinine 5.8 mg/dL (0.7-1.3) 6.1 mg/dL (0.7-1.3) Estimated GFR (Cockcroft-Gault) 12.5 11.8 BUN/Creatinine Ratio 11 (6-20) Glucose Level 283 mg/dL (70-99) 278 mg/dL (70-99) Calcium Level 8.5 mg/dL (8.5-10.1) 7.7 mg/dL (8.5-10.1) Total Bilirubin 0.4 mg/dL (0.2-1.0) Aspartate Amino Transf (AST/SGOT) 18 U/L (15-37) Alanine Aminotransferase (ALT/SGPT) 19 U/L (16-63) Alkaline Phosphatase 100 U/L (46-116) Total Protein 8.2 g/dL (6.4-8.2) Albumin 3.3 g/dL (3.4-5.0) Albumin/Globulin Ratio 0.7 (1.0-1.7) Glucose (Fingerstick) 222 mg/dL (70-99) Test 03/01/17 07:05 Glucose (Fingerstick) 228 mg/dL (70-99) Laboratory Tests Test 02/28/17 18:10 02/28/17 19:15 02/28/17 20:46 03/01/17 04:40 White Blood Count 4.5 x10^3/uL (4.0-11.0) 4.7 x10^3/uL (4.0-11.0) Red Blood Count 4.13 x10^6/uL (4.30-5.70) 3.58 x10^6/uL (4.30-5.70) Hemoglobin 12.8 g/dL (13.0-17.5) 11.2 g/dL (13.0-17.5) Hematocrit 38.1 % (39.0-53.0) 33.8 % (39.0-53.0) Mean Corpuscular Volume 92 fL (79-100) 95 fL (79-100) Mean Corpuscular Hemoglobin 31 pg (25-35) 31 pg (25-35) Mean Corpuscular Hemoglobin Concent 34 g/dL (31-37) 33 g/dL (31-37) Red Cell Distribution Width 15.5 % (11.5-14.5) 15.0 % (11.5-14.5) Platelet Count 158 x10^3/uL (140-400) 132 x10^3/uL (140-400) Neutrophils (%) (Auto) 57 % (31-73) 61 % (31-73) Lymphocytes (%) (Auto) 26 % (24-48) 21 % (24-48) Monocytes (%) (Auto) 13 % (0-9) 13 % (0-9) Eosinophils (%) (Auto) 2 % (0-3) 3 % (0-3) Basophils (%) (Auto) 1 % (0-3) 2 % (0-3) Neutrophils # (Auto) 2.6 x10^3uL (1.8-7.7) 2.9 x10^3uL (1.8-7.7) Lymphocytes # (Auto) 1.2 x10^3/uL (1.0-4.8) 1.0 x10^3/uL (1.0-4.8) Monocytes # (Auto) 0.6 x10^3/uL (0.0-1.1) 0.6 x10^3/uL (0.0-1.1) Eosinophils # (Auto) 0.1 x10^3/uL (0.0-0.7) 0.1 x10^3/uL (0.0-0.7) Basophils # (Auto) 0.1 x10^3/uL (0.0-0.2) 0.1 x10^3/uL (0.0-0.2) Prothrombin Time 13.3 SEC (11.7-14.0) 13.9 SEC (11.7-14.0) Prothromb Time International Ratio 1.1 (0.8-1.1) 1.1 (0.8-1.1) Sodium Level 134 mmol/L (136-145) 137 mmol/L (136-145) Potassium Level 3.9 mmol/L (3.5-5.1) 4.1 mmol/L (3.5-5.1) Chloride Level 93 mmol/L (98-107) 97 mmol/L (98-107) Carbon Dioxide Level 30 mmol/L (21-32) 31 mmol/L (21-32) Anion Gap 11 (6-14) 9 (6-14) Blood Urea Nitrogen 61 mg/dL (8-26) 67 mg/dL (8-26) Creatinine 5.8 mg/dL (0.7-1.3) 6.1 mg/dL (0.7-1.3) Estimated GFR (Cockcroft-Gault) 12.5 11.8 BUN/Creatinine Ratio 11 (6-20) Glucose Level 283 mg/dL (70-99) 278 mg/dL (70-99) Calcium Level 8.5 mg/dL (8.5-10.1) 7.7 mg/dL (8.5-10.1) Total Bilirubin 0.4 mg/dL (0.2-1.0) Aspartate Amino Transf (AST/SGOT) 18 U/L (15-37) Alanine Aminotransferase (ALT/SGPT) 19 U/L (16-63) Alkaline Phosphatase 100 U/L (46-116) Total Protein 8.2 g/dL (6.4-8.2) Albumin 3.3 g/dL (3.4-5.0) Albumin/Globulin Ratio 0.7 (1.0-1.7) Glucose (Fingerstick) 222 mg/dL (70-99) Test 03/01/17 07:05 Glucose (Fingerstick) 228 mg/dL (70-99) Vitals Vital Signs Date Time Temp Pulse Resp B/P (MAP) Pulse Ox O2 Delivery O2 Flow Rate FiO2 03/01/17 08:07 Room Air 03/01/17 08:06 85 158/67 03/01/17 07:00 97.9 18 96 97.9 Assessment Assessment Left foot infected wound ESRD h/o Fever DM HTN Plan Plan cont vanc and cefepime mri pending supportive care off load CONCETTA LIANG MD Mar 01, 2017 09:23
--- NOTE | 2017-03-01 09:28 | PDOC ---
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 Paroxysmal atrial fibrillation Obesity GERD Plan MRI of foot is pending On vancomycin IV pharmacy to dose according to renal functions Nephrology consultation for hemodialysis Gastroenterology consultation for abdominal pain INR is not therapeutic patient may have noncompliance with the warfarin resume warfarin and the daily check INRs Labs reviewed Recent discharge summary reviewed patient had a history of noncompliance with warfarin Appreciate infectious disease help Vitals Vitals Vital Signs Date Time Temp Pulse Resp B/P (MAP) Pulse Ox O2 Delivery O2 Flow Rate FiO2 03/01/17 08:07 Room Air 03/01/17 08:06 85 158/67 03/01/17 07:00 97.9 18 96 97.9 Physical Exam General: Alert, Oriented X3, Cooperative Heart: Regular rate, Normal S1 Lungs: Clear Abdomen: Normal bowel sounds, Soft Extremities: No clubbing, No cyanosis Labs LABS Laboratory Tests Test 02/28/17 18:10 02/28/17 19:15 02/28/17 20:46 03/01/17 04:40 White Blood Count 4.5 x10^3/uL (4.0-11.0) 4.7 x10^3/uL (4.0-11.0) Red Blood Count 4.13 x10^6/uL (4.30-5.70) 3.58 x10^6/uL (4.30-5.70) Hemoglobin 12.8 g/dL (13.0-17.5) 11.2 g/dL (13.0-17.5) Hematocrit 38.1 % (39.0-53.0) 33.8 % (39.0-53.0) Mean Corpuscular Volume 92 fL (79-100) 95 fL (79-100) Mean Corpuscular Hemoglobin 31 pg (25-35) 31 pg (25-35) Mean Corpuscular Hemoglobin Concent 34 g/dL (31-37) 33 g/dL (31-37) Red Cell Distribution Width 15.5 % (11.5-14.5) 15.0 % (11.5-14.5) Platelet Count 158 x10^3/uL (140-400) 132 x10^3/uL (140-400) Neutrophils (%) (Auto) 57 % (31-73) 61 % (31-73) Lymphocytes (%) (Auto) 26 % (24-48) 21 % (24-48) Monocytes (%) (Auto) 13 % (0-9) 13 % (0-9) Eosinophils (%) (Auto) 2 % (0-3) 3 % (0-3) Basophils (%) (Auto) 1 % (0-3) 2 % (0-3) Neutrophils # (Auto) 2.6 x10^3uL (1.8-7.7) 2.9 x10^3uL (1.8-7.7) Lymphocytes # (Auto) 1.2 x10^3/uL (1.0-4.8) 1.0 x10^3/uL (1.0-4.8) Monocytes # (Auto) 0.6 x10^3/uL (0.0-1.1) 0.6 x10^3/uL (0.0-1.1) Eosinophils # (Auto) 0.1 x10^3/uL (0.0-0.7) 0.1 x10^3/uL (0.0-0.7) Basophils # (Auto) 0.1 x10^3/uL (0.0-0.2) 0.1 x10^3/uL (0.0-0.2) Prothrombin Time 13.3 SEC (11.7-14.0) 13.9 SEC (11.7-14.0) Prothromb Time International Ratio 1.1 (0.8-1.1) 1.1 (0.8-1.1) Sodium Level 134 mmol/L (136-145) 137 mmol/L (136-145) Potassium Level 3.9 mmol/L (3.5-5.1) 4.1 mmol/L (3.5-5.1) Chloride Level 93 mmol/L (98-107) 97 mmol/L (98-107) Carbon Dioxide Level 30 mmol/L (21-32) 31 mmol/L (21-32) Anion Gap 11 (6-14) 9 (6-14) Blood Urea Nitrogen 61 mg/dL (8-26) 67 mg/dL (8-26) Creatinine 5.8 mg/dL (0.7-1.3) 6.1 mg/dL (0.7-1.3) Estimated GFR (Cockcroft-Gault) 12.5 11.8 BUN/Creatinine Ratio 11 (6-20) Glucose Level 283 mg/dL (70-99) 278 mg/dL (70-99) Calcium Level 8.5 mg/dL (8.5-10.1) 7.7 mg/dL (8.5-10.1) Total Bilirubin 0.4 mg/dL (0.2-1.0) Aspartate Amino Transf (AST/SGOT) 18 U/L (15-37) Alanine Aminotransferase (ALT/SGPT) 19 U/L (16-63) Alkaline Phosphatase 100 U/L (46-116) Total Protein 8.2 g/dL (6.4-8.2) Albumin 3.3 g/dL (3.4-5.0) Albumin/Globulin Ratio 0.7 (1.0-1.7) Glucose (Fingerstick) 222 mg/dL (70-99) Test 03/01/17 07:05 Glucose (Fingerstick) 228 mg/dL (70-99) Assessment and Plan Assessmemt and Plan Problems Medical Problems: (1) End stage renal disease Status: Acute (2) Foot ulcer, left Status: Acute Problems: Comment Review of Relevant I have reviewed the following items lila (where applicable) has been applied. Labs Laboratory Tests Test 02/28/17 18:10 02/28/17 19:15 02/28/17 20:46 03/01/17 04:40 White Blood Count 4.5 x10^3/uL (4.0-11.0) 4.7 x10^3/uL (4.0-11.0) Red Blood Count 4.13 x10^6/uL (4.30-5.70) 3.58 x10^6/uL (4.30-5.70) Hemoglobin 12.8 g/dL (13.0-17.5) 11.2 g/dL (13.0-17.5) Hematocrit 38.1 % (39.0-53.0) 33.8 % (39.0-53.0) Mean Corpuscular Volume 92 fL (79-100) 95 fL (79-100) Mean Corpuscular Hemoglobin 31 pg (25-35) 31 pg (25-35) Mean Corpuscular Hemoglobin Concent 34 g/dL (31-37) 33 g/dL (31-37) Red Cell Distribution Width 15.5 % (11.5-14.5) 15.0 % (11.5-14.5) Platelet Count 158 x10^3/uL (140-400) 132 x10^3/uL (140-400) Neutrophils (%) (Auto) 57 % (31-73) 61 % (31-73) Lymphocytes (%) (Auto) 26 % (24-48) 21 % (24-48) Monocytes (%) (Auto) 13 % (0-9) 13 % (0-9) Eosinophils (%) (Auto) 2 % (0-3) 3 % (0-3) Basophils (%) (Auto) 1 % (0-3) 2 % (0-3) Neutrophils # (Auto) 2.6 x10^3uL (1.8-7.7) 2.9 x10^3uL (1.8-7.7) Lymphocytes # (Auto) 1.2 x10^3/uL (1.0-4.8) 1.0 x10^3/uL (1.0-4.8) Monocytes # (Auto) 0.6 x10^3/uL (0.0-1.1) 0.6 x10^3/uL (0.0-1.1) Eosinophils # (Auto) 0.1 x10^3/uL (0.0-0.7) 0.1 x10^3/uL (0.0-0.7) Basophils # (Auto) 0.1 x10^3/uL (0.0-0.2) 0.1 x10^3/uL (0.0-0.2) Prothrombin Time 13.3 SEC (11.7-14.0) 13.9 SEC (11.7-14.0) Prothromb Time International Ratio 1.1 (0.8-1.1) 1.1 (0.8-1.1) Sodium Level 134 mmol/L (136-145) 137 mmol/L (136-145) Potassium Level 3.9 mmol/L (3.5-5.1) 4.1 mmol/L (3.5-5.1) Chloride Level 93 mmol/L (98-107) 97 mmol/L (98-107) Carbon Dioxide Level 30 mmol/L (21-32) 31 mmol/L (21-32) Anion Gap 11 (6-14) 9 (6-14) Blood Urea Nitrogen 61 mg/dL (8-26) 67 mg/dL (8-26) Creatinine 5.8 mg/dL (0.7-1.3) 6.1 mg/dL (0.7-1.3) Estimated GFR (Cockcroft-Gault) 12.5 11.8 BUN/Creatinine Ratio 11 (6-20) Glucose Level 283 mg/dL (70-99) 278 mg/dL (70-99) Calcium Level 8.5 mg/dL (8.5-10.1) 7.7 mg/dL (8.5-10.1) Total Bilirubin 0.4 mg/dL (0.2-1.0) Aspartate Amino Transf (AST/SGOT) 18 U/L (15-37) Alanine Aminotransferase (ALT/SGPT) 19 U/L (16-63) Alkaline Phosphatase 100 U/L (46-116) Total Protein 8.2 g/dL (6.4-8.2) Albumin 3.3 g/dL (3.4-5.0) Albumin/Globulin Ratio 0.7 (1.0-1.7) Glucose (Fingerstick) 222 mg/dL (70-99) Test 03/01/17 07:05 Glucose (Fingerstick) 228 mg/dL (70-99) Laboratory Tests Test 02/28/17 18:10 02/28/17 19:15 02/28/17 20:46 03/01/17 04:40 White Blood Count 4.5 x10^3/uL (4.0-11.0) 4.7 x10^3/uL (4.0-11.0) Red Blood Count 4.13 x10^6/uL (4.30-5.70) 3.58 x10^6/uL (4.30-5.70) Hemoglobin 12.8 g/dL (13.0-17.5) 11.2 g/dL (13.0-17.5) Hematocrit 38.1 % (39.0-53.0) 33.8 % (39.0-53.0) Mean Corpuscular Volume 92 fL (79-100) 95 fL (79-100) Mean Corpuscular Hemoglobin 31 pg (25-35) 31 pg (25-35) Mean Corpuscular Hemoglobin Concent 34 g/dL (31-37) 33 g/dL (31-37) Red Cell Distribution Width 15.5 % (11.5-14.5) 15.0 % (11.5-14.5) Platelet Count 158 x10^3/uL (140-400) 132 x10^3/uL (140-400) Neutrophils (%) (Auto) 57 % (31-73) 61 % (31-73) Lymphocytes (%) (Auto) 26 % (24-48) 21 % (24-48) Monocytes (%) (Auto) 13 % (0-9) 13 % (0-9) Eosinophils (%) (Auto) 2 % (0-3) 3 % (0-3) Basophils (%) (Auto) 1 % (0-3) 2 % (0-3) Neutrophils # (Auto) 2.6 x10^3uL (1.8-7.7) 2.9 x10^3uL (1.8-7.7) Lymphocytes # (Auto) 1.2 x10^3/uL (1.0-4.8) 1.0 x10^3/uL (1.0-4.8) Monocytes # (Auto) 0.6 x10^3/uL (0.0-1.1) 0.6 x10^3/uL (0.0-1.1) Eosinophils # (Auto) 0.1 x10^3/uL (0.0-0.7) 0.1 x10^3/uL (0.0-0.7) Basophils # (Auto) 0.1 x10^3/uL (0.0-0.2) 0.1 x10^3/uL (0.0-0.2) Prothrombin Time 13.3 SEC (11.7-14.0) 13.9 SEC (11.7-14.0) Prothromb Time International Ratio 1.1 (0.8-1.1) 1.1 (0.8-1.1) Sodium Level 134 mmol/L (136-145) 137 mmol/L (136-145) Potassium Level 3.9 mmol/L (3.5-5.1) 4.1 mmol/L (3.5-5.1) Chloride Level 93 mmol/L (98-107) 97 mmol/L (98-107) Carbon Dioxide Level 30 mmol/L (21-32) 31 mmol/L (21-32) Anion Gap 11 (6-14) 9 (6-14) Blood Urea Nitrogen 61 mg/dL (8-26) 67 mg/dL (8-26) Creatinine 5.8 mg/dL (0.7-1.3) 6.1 mg/dL (0.7-1.3) Estimated GFR (Cockcroft-Gault) 12.5 11.8 BUN/Creatinine Ratio 11 (6-20) Glucose Level 283 mg/dL (70-99) 278 mg/dL (70-99) Calcium Level 8.5 mg/dL (8.5-10.1) 7.7 mg/dL (8.5-10.1) Total Bilirubin 0.4 mg/dL (0.2-1.0) Aspartate Amino Transf (AST/SGOT) 18 U/L (15-37) Alanine Aminotransferase (ALT/SGPT) 19 U/L (16-63) Alkaline Phosphatase 100 U/L (46-116) Total Protein 8.2 g/dL (6.4-8.2) Albumin 3.3 g/dL (3.4-5.0) Albumin/Globulin Ratio 0.7 (1.0-1.7) Glucose (Fingerstick) 222 mg/dL (70-99) Test 03/01/17 07:05 Glucose (Fingerstick) 228 mg/dL (70-99) Medications Current Medications Morphine Sulfate 4 mg PRN Q15MIN PRN IV/SQ PAIN GREATER THAN 3/10 Last administered on 02/28/17t 19:05; Start 02/28/17 at 18:00; Stop 03/01/17 at 17:59 Morphine Sulfate 4 mg PRN Q2HR PRN IV PAIN; Start 02/28/17 at 19:15; Stop 03/01 at 19:14 Citalopram Hydrobromide (CeleXA) 20 mg DAILY PO Last administered on 03/01/17 08:06; Start 03/01/17 at 09:00 Clopidogrel Bisulfate (Plavix) 75 mg DAILY07 PO Last administered on 03/01/17 06:29; Start 03/01/17 at 07:00 Darbepoetin Jace (Aranesp) 100 mcg WEEKLY SQ ; Start 03/07/17 at 09:00 Dexamethasone (Maxidex) 1 drop Q4HRS OS Last administered on 03/01/17 08:09; Start 02/28/17 at 20:00 Diclofenac Sodium (Voltaren) 1 ayaz BID TP Last administered on 03/01/17 08:05 ; Start 02/28/17 at 21:00 Ergocalciferol (Vitamin D2) 50,000 unit WEEKLY PO ; Start 03/07/17 at 09:00 Famotidine (Pepcid) 20 mg HS PO Last administered on 02/28/17 23:25; Start at 21:00 Vitamin B Complex/ Vitamin C (Fernanda-Jimmy) 1 tab DAILY PO Last administered on 08:05; Start 03/01/17 at 09:00 Isosorbide Mononitrate (Imdur) 30 mg DAILY PO Last administered on 03/01/17 08 :06; Start 03/01/17 at 09:00 Ketorolac Tromethamine (Acular) 1 drop QID OS Last administered on 03/01/17 08 :09; Start 02/28/17 at 21:00 Levetiracetam (Keppra) 500 mg BID PO Last administered on 03/01/17 08:06; Start 02/28/17 at 21:00 Levothyroxine Sodium (Synthroid) 175 mcg DAILY07 PO Last administered on 06:28; Start 03/01/17 at 07:00 Lidocaine (Lidoderm) 1 patch DAILY TD ; Start 03/01/17 at 09:00 Metoprolol Tartrate (Lopressor) 50 mg BID PO Last administered on 03/01/17 08: 05; Start 02/28/17 at 21:00 Morphine Sulfate (Ms Contin) 30 mg TID PO Last administered on 03/01/17 08:07 ; Start 02/28/17 at 21:00 Moxifloxacin HCl (Vigamox) 1 drop TID OU Last administered on 03/01/17 08:08; Start 02/28/17 at 21:00 Nitroglycerin (Nitrostat) 0.4 mg PRN Q5MIN PRN SL CHEST PAIN; Start 02/28/17 at 19:45 Sucralfate (Carafate) 1 gm BID PO Last administered on 03/01/17 08:05; Start 02/28/17 at 21:00 Trazodone HCl (Desyrel) 25 mg QHS PO Last administered on 02/28/17 23:23; Start 02/28/17 at 21:00 Warfarin Sodium (Coumadin) 5 mg DAILY16 PO ; Start 03/01/17 at 16:00 Albuterol Sulfate (Ventolin Neb Soln) 2.5 mg PRN Q4HRS PRN NEB SHORTNESS OF BREATH; Start 02/28/17 at 20:00 Atorvastatin Calcium (Lipitor) 80 mg QHS PO Last administered on 02/28/17 23: 24; Start 02/28/17 at 21:00 Non-Formulary Medication 5 ml DAILY LEFTEYE ; Start 03/01/17 at 09:00; Status UNV Calcium Carbonate/ Glycine (Oscal) 2,000 mg TID PO ; Start 03/01/17 at 09:00 Non-Formulary Medication 1 drop Q1HR OS ; Start 02/28/17 at 20:00; Status UNV Risperidone (RisperDAL) 0.5 mg QHS PO Last administered on 02/28/17 23:24; Start 02/28/17 at 21:00 Acetaminophen (Tylenol) 650 mg PRN Q6HRS PRN PO FEVER; Start 02/28/17 at 19:45 Ondansetron HCl (Zofran) 4 mg PRN Q6HRS PRN IV NAUSEA/VOMITING Last administered on 03/01/17 08:04; Start 02/28/17 at 19:45 Morphine Sulfate 2 mg PRN Q2HR PRN IV PAIN Last administered on 03/01/17 06:29 ; Start 02/28/17 at 19:45 Tramadol HCl (Ultram) 50 mg PRN Q6HRS PRN PO PAIN; Start 02/28/17 at 19:45 Hydralazine HCl (Apresoline) 10 mg PRN Q4HRS PRN IVP ELEVATED BP, SEE COMMENTS ; Start 02/28/17 at 19:45 Docusate Sodium (Colace) 100 mg PRN DAILY PRN PO CONSTIPATION; Start 02/28/17 at 19:45 Vancomycin HCl 2 gm/Sodium Chloride 500 ml @ 250 mls/hr 1X ONCE IV ; Start at 20:30; Stop 02/28/17 at 22:29; Status Cancel Vancomycin HCl (Vanco Per Pharmacy) 1 each PRN DAILY PRN MC SEE COMMENTS; Start 02/28/17 at 20:00 Cefepime HCl 1 gm/ Sodium Chloride 50 ml @ 100 mls/hr Q12HR IV ; Start at 20:30; Status Cancel Warfarin Sodium (Coumadin Per Physician) 1 each PRN DAILY PRN MC SEE COMMENTS; Start 02/28/17 at 20:00 Vancomycin HCl 1.25 gm/Sodium Chloride 250 ml @ 167 mls/hr Q48H IV ; Start at 23:00 Vancomycin HCl 1 each 1X ONCE MC ; Start 03/04/17 at 22:30; Stop 03/04/17 at 22 :31 Cefepime HCl 1 gm/ Sodium Chloride 50 ml @ 100 mls/hr QHS IV Last administered on 02/28/17 23:30; Start 02/28/17 at 23:30 Vancomycin HCl 2 gm/Sodium Chloride 500 ml @ 250 mls/hr 1X ONCE IV Last administered on 02/28/17 23:30; Start 02/28/17 at 23:30; Stop 03/01/17 at 01:29 ; Status DC Insulin Aspart (NovoLOG) 0-9 UNITS TIDWMEALS SQ Last administered on 03/01/17 08:14; Start 03/01/17 at 08:00 Dextrose (Dextrose 50%-Water Syringe) 12.5 gm PRN Q15MIN PRN IV SEE COMMENTS; Start 03/01/17 at 03:00 Active Scripts Active Levetiracetam 500 Mg Tablet 500 Mg PO BID Morphine Sulfate Er (Morphine Sulfate) 30 Mg Tablet.er 30 Mg PO TID Lidoderm (Lidocaine) 700 Mg Adh..patch 1 Patch TD DAILY Ventolin Hfa Inhaler (Albuterol Sulfate) 18 Gm Hfa.aer.ad 2 Puff INH Q4HRS PRN Metoprolol Tartrate 50 Mg Tablet 50 Mg PO BID Synthroid (Levothyroxine Sodium) 175 Mcg Tablet 175 Mcg PO DAILY07 Isosorbide Mononitrate Er (Isosorbide Mononitrate) 30 Mg Tab.er.24h 30 Mg PO DAILY Reported Ketorolac Tromethamine 5 Ml Drops 1 Drop OS QID Maxidex (Dexamethasone) 5 Ml Drops.susp 1 Drop OS Q4HRS Vigamox (Moxifloxacin Hcl) 3 Ml Drops 1 Drop EACHEYE TID Ropinirole Hcl 0.25 Mg Tablet 0.25 Mg PO Oxycodone Hcl 5 Mg Capsule 5 Mg PO PRN Midodrine Hcl 5 Mg Tablet 5 Mg PO Citalopram Hbr (Citalopram Hydrobromide) 20 Mg Tablet 1 Tab PO DAILY Trazodone Hcl 50 Mg Tablet 0.5-1 Tab PO QHS Risperidone 0.5 Mg Tablet 1 Tab PO QHS Bromsite (Bromfenac Sodium) 5 Ml Drops 5 Ml LEFTEYE DAILY Vigamox (Moxifloxacin Hcl) 3 Ml Drops 1 Drop LEFTEYE TID Prednisolone Acetate 5 Ml Drops.susp 1 Drop OS Q1HR Famotidine 20 Mg Tablet 20 Mg PO HS Coumadin (Warfarin Sodium) 5 Mg Tablet 1 Tab PO DAILY Nephro-Jimmy Tablet (Folic Acid/Vitamin B Comp W-C) 0.8 Mg Tablet 1 Tab PO DAILY Carafate (Sucralfate) 1 Gm Tablet 1 Tab PO BID Nitrostat (Nitroglycerin) 0.4 Mg Tab.subl 0.4 Mg SL PRN Q5MIN PRN Calcium Carbonate 500 Mg/5 Ml Oral.susp 2,000 Mg PO TID Aranesp Syringe (Darbepoetin Jace In Polysorbat) 100 Mcg/0.5 Ml Disp.syrin 100 Mcg SQ WEEKLY Voltaren (Diclofenac Sodium) 100 Gm Gel..gram. 1 Gm TP BID Clopidogrel (Clopidogrel Bisulfate) 75 Mg Tablet 75 Mg PO DAILY07 Renvela (Sevelamer Carbonate) 800 Mg Tablet Tab PO TID Vitamin D2 (Ergocalciferol (Vitamin D2)) 50,000 Unit Capsule 50,000 Unit PO WEEKLY Atorvastatin Calcium 80 Mg Tablet 80 Mg PO HS Vitals/I & O Vital Sign - Last 24 Hours 02/28/17 02/28/17 02/28/17 02/28/17 17:30 18:30 19:05 19:30 Temp 98.7 98.7 Pulse 99 72 76 Resp 18 18 12 18 B/P (MAP) 158/73 (101) 135/70 (91) 132/66 (88) Pulse Ox 100 96 100 96 O2 Delivery Room Air Room Air Room Air Room Air 02/28/17 02/28/17 02/28/17 02/28/17 20:15 23:23 23:24 23:26 Temp 97.9 97.9 Pulse 88 88 Resp 18 16 16 B/P (MAP) 160/84 (109) 160/84 Pulse Ox 98 98 98 O2 Delivery Room Air 02/28/17 03/01/17 03/01/17 03/01/17 23:30 02:40 03:23 06:29 Temp 97.9 97.3 97.9 97.3 Pulse 97 85 Resp 18 16 16 B/P (MAP) 151/87 (108) 158/67 (97) Pulse Ox 98 98 98 98 O2 Delivery Room Air Room Air 03/01/17 03/01/17 03/01/17 03/01/17 06:59 07:00 08:05 08:06 Temp 97.9 97.9 Pulse 75 85 85 Resp 16 18 B/P (MAP) 115/63 (80) 158/67 158/67 Pulse Ox 98 96 O2 Delivery Room Air 03/01/17 08:07 O2 Delivery Room Air Intake and Output 02/28/17 02/28/17 03/01/17 15:00 23:00 07:00 Intake Total 240 ml 420 ml Balance 240 ml 420 ml KEITH BUCK MD Mar 01, 2017 09:28
--- NOTE | 2017-03-01 09:31 | RAD ---
MR of the left forefoot HISTORY: Left first metatarsal debridement yesterday. Open ulcer. TECHNIQUE: Standard noncontrast images. 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 There also appears to have been an amputation of the first toe at the distal first metatarsal. The distal first metatarsal is shortened and deformed. Mild marrow edema within the distal first metatarsal with some loss of T1 signal, and osteomyelitis within the distal first metatarsal remnant is suspected. There is some skin irregularity plantar to the distal first metatarsal presumably an ulcer with some abnormal signal extending from this ulcer to the cortical surface of the first metatarsal, further increasing the likelihood of osteomyelitis. No evidence of an organized abscess or drainable fluid collection. Mild generalized soft tissue and muscle edema. Severe diffuse muscle atrophy. No significant joint effusion. No significant tendon sheath fluid. IMPRESSION: 1. Apparent ulcer plantar to the first metatarsal head. There is marrow edema with loss of some fatty marrow signal within the distal first metatarsal head remnant, suspicious for osteomyelitis. 2. No evidence of drainable abscess. Electronically signed by: Sher Ramos MD (03/01/2017 9:28 AM) [id number]
--- NOTE | 2017-03-01 09:49 | PDOC2 ---
CONSULT Date of Consult Date of Consult DATE: 03/01/17 TIME: 09:38 Reason for Consult Reason for Consult: ESRD TTSat Referring Physician Referring Physician: Dr Horton Identification/Chief Complaint Chief Complaint Foot wound Problems: Source Source: Chart review, Patient History of Present Illness Reason for Visit: 51 yo AAm with Dm, HTN and CAD, PVD, previous DFU and toe amputations - has been seen at [facility] care [facility] (dr Bonner) . he developed fevers, chills and purulent drng (funky stuff) at debridement yest and was asked to come to [facility] - for > 1 yr, due to DM/ HTN sive / NS, TTSat, no missed HD. Anemia CKD - no bloodl oss, EPO per protocol HTN - currently well controlled ^ Phos - on binders Past Medical History Cardiovascular: AFIB, CAD, CHF, HTN, [place], Hyperlipidemia, Other Pulmonary: Asthma, Other CENTRAL NERVOUS SYSTEM: CVA, Dementia, Periperal neuropathy, Seizure, TIA, Vertigo GI: Diverticulosis, Hemorrhoids Heme/Onc: Anemia NOS Hepatobiliary: No pertinent hx Psych: Anxiety, Depression Musculoskeletal: Osteoarthritis Infectious disease: No pertinent hx Renal/: Chronic renal failure Endocrine: Diabetes, Hypothyroidism Past Surgical History Past Surgical History: Cataract Removal, Total knee replacement, Other Family History Family History: Hypertension Social History No ALCOHOL: none Drugs: None Lives: with Family Current Problem List Problem List Problems Medical Problems: (1) End stage renal disease Status: Acute (2) Foot ulcer, left Status: Acute Current Medications Current Medications Current Medications Morphine Sulfate 4 mg PRN Q15MIN PRN IV/SQ PAIN GREATER THAN 3/10 Last administered on 02/28/17 19:05; Start 02/28/17 at 18:00; Stop 03/01/17 at 17:59 Morphine Sulfate 4 mg PRN Q2HR PRN IV PAIN; Start 02/28/17 at 19:15; Stop 03/01 at 19:14 Citalopram Hydrobromide (CeleXA) 20 mg DAILY PO Last administered on 03/01/17 08:06; Start 03/01/17 at 09:00 Clopidogrel Bisulfate (Plavix) 75 mg DAILY07 PO Last administered on 03/01/17 06:29; Start 03/01/17 at 07:00 Darbepoetin Jace (Aranesp) 100 mcg WEEKLY SQ ; Start 03/07/17 at 09:00 Dexamethasone (Maxidex) 1 drop Q4HRS OS Last administered on 03/01/17 08:09; Start 02/28/17 at 20:00 Diclofenac Sodium (Voltaren) 1 ayaz BID TP Last administered on 03/01/17 08:05 ; Start 02/28/17 at 21:00 Ergocalciferol (Vitamin D2) 50,000 unit WEEKLY PO ; Start 03/07/17 at 09:00 Famotidine (Pepcid) 20 mg HS PO Last administered on 02/28/17 23:25; Start at 21:00 Vitamin B Complex/ Vitamin C (Fernanda-Jimmy) 1 tab DAILY PO Last administered on 08:05; Start 03/01/17 at 09:00 Isosorbide Mononitrate (Imdur) 30 mg DAILY PO Last administered on 03/01/17 08 :06; Start 03/01/17 at 09:00 Ketorolac Tromethamine (Acular) 1 drop QID OS Last administered on 03/01/17 08 :09; Start 02/28/17 at 21:00 Levetiracetam (Keppra) 500 mg BID PO Last administered on 03/01/17 08:06; Start 02/28/17 at 21:00 Levothyroxine Sodium (Synthroid) 175 mcg DAILY07 PO Last administered on 06:28; Start 03/01/17 at 07:00 Lidocaine (Lidoderm) 1 patch DAILY TD ; Start 03/01/17 at 09:00 Metoprolol Tartrate (Lopressor) 50 mg BID PO Last administered on 03/01/17 08: 05; Start 02/28/17 at 21:00 Morphine Sulfate (Ms Contin) 30 mg TID PO Last administered on 03/01/17 08:07 ; Start 02/28/17 at 21:00 Moxifloxacin HCl (Vigamox) 1 drop TID OU Last administered on 03/01/17 08:08; Start 02/28/17 at 21:00 Nitroglycerin (Nitrostat) 0.4 mg PRN Q5MIN PRN SL CHEST PAIN; Start 02/28/17 at 19:45 Sucralfate (Carafate) 1 gm BID PO Last administered on 03/01/17 08:05; Start 02/28/17 at 21:00 Trazodone HCl (Desyrel) 25 mg QHS PO Last administered on 02/28/17 23:23; Start 02/28/17 at 21:00 Warfarin Sodium (Coumadin) 5 mg DAILY16 PO ; Start 03/01/17 at 16:00 Albuterol Sulfate (Ventolin Neb Soln) 2.5 mg PRN Q4HRS PRN NEB SHORTNESS OF BREATH; Start 02/28/17 at 20:00 Atorvastatin Calcium (Lipitor) 80 mg QHS PO Last administered on 02/28/17 23: 24; Start 02/28/17 at 21:00 Non-Formulary Medication 5 ml DAILY LEFTEYE ; Start 03/01/17 at 09:00; Status UNV Calcium Carbonate/ Glycine (Oscal) 2,000 mg TID PO ; Start 03/01/17 at 09:00 Non-Formulary Medication 1 drop Q1HR OS ; Start 02/28/17 at 20:00; Status UNV Risperidone (RisperDAL) 0.5 mg QHS PO Last administered on 02/28/17 23:24; Start 02/28/17 at 21:00 Acetaminophen (Tylenol) 650 mg PRN Q6HRS PRN PO FEVER; Start 02/28/17 at 19:45 Ondansetron HCl (Zofran) 4 mg PRN Q6HRS PRN IV NAUSEA/VOMITING Last administered on 03/01/17 08:04; Start 02/28/17 at 19:45 Morphine Sulfate 2 mg PRN Q2HR PRN IV PAIN Last administered on 03/01/17 06:29 ; Start 02/28/17 at 19:45 Tramadol HCl (Ultram) 50 mg PRN Q6HRS PRN PO PAIN; Start 02/28/17 at 19:45 Hydralazine HCl (Apresoline) 10 mg PRN Q4HRS PRN IVP ELEVATED BP, SEE COMMENTS ; Start 02/28/17 at 19:45 Docusate Sodium (Colace) 100 mg PRN DAILY PRN PO CONSTIPATION; Start 02/28/17 at 19:45 Vancomycin HCl 2 gm/Sodium Chloride 500 ml @ 250 mls/hr 1X ONCE IV ; Start at 20:30; Stop 02/28/17 at 22:29; Status Cancel Vancomycin HCl (Vanco Per Pharmacy) 1 each PRN DAILY PRN MC SEE COMMENTS; Start 02/28/17 at 20:00 Cefepime HCl 1 gm/ Sodium Chloride 50 ml @ 100 mls/hr Q12HR IV ; Start at 20:30; Status Cancel Warfarin Sodium (Coumadin Per Physician) 1 each PRN DAILY PRN MC SEE COMMENTS; Start 02/28/17 at 20:00 Vancomycin HCl 1.25 gm/Sodium Chloride 250 ml @ 167 mls/hr Q48H IV ; Start at 23:00 Vancomycin HCl 1 each 1X ONCE MC ; Start 03/04/17 at 22:30; Stop 03/04/17 at 22 :31 Cefepime HCl 1 gm/ Sodium Chloride 50 ml @ 100 mls/hr QHS IV Last administered on 02/28/17t 23:30; Start 02/28/17 at 23:30 Vancomycin HCl 2 gm/Sodium Chloride 500 ml @ 250 mls/hr 1X ONCE IV Last administered on 02/28/17t 23:30; Start 02/28/17 at 23:30; Stop 03/01/17 at 01:29 ; Status DC Insulin Aspart (NovoLOG) 0-9 UNITS TIDWMEALS SQ Last administered on 03/01/17 08:14; Start 03/01/17 at 08:00 Dextrose (Dextrose 50%-Water Syringe) 12.5 gm PRN Q15MIN PRN IV SEE COMMENTS; Start 03/01/17 at 03:00 Active Scripts Active Levetiracetam 500 Mg Tablet 500 Mg PO BID Morphine Sulfate Er (Morphine Sulfate) 30 Mg Tablet.er 30 Mg PO TID Lidoderm (Lidocaine) 700 Mg Adh..patch 1 Patch TD DAILY Ventolin Hfa Inhaler (Albuterol Sulfate) 18 Gm Hfa.aer.ad 2 Puff INH Q4HRS PRN Metoprolol Tartrate 50 Mg Tablet 50 Mg PO BID Synthroid (Levothyroxine Sodium) 175 Mcg Tablet 175 Mcg PO DAILY07 Isosorbide Mononitrate Er (Isosorbide Mononitrate) 30 Mg Tab.er.24h 30 Mg PO DAILY Reported Ketorolac Tromethamine 5 Ml Drops 1 Drop OS QID Maxidex (Dexamethasone) 5 Ml Drops.susp 1 Drop OS Q4HRS Vigamox (Moxifloxacin Hcl) 3 Ml Drops 1 Drop EACHEYE TID Ropinirole Hcl 0.25 Mg Tablet 0.25 Mg PO Oxycodone Hcl 5 Mg Capsule 5 Mg PO PRN Midodrine Hcl 5 Mg Tablet 5 Mg PO Citalopram Hbr (Citalopram Hydrobromide) 20 Mg Tablet 1 Tab PO DAILY Trazodone Hcl 50 Mg Tablet 0.5-1 Tab PO QHS Risperidone 0.5 Mg Tablet 1 Tab PO QHS Bromsite (Bromfenac Sodium) 5 Ml Drops 5 Ml LEFTEYE DAILY Vigamox (Moxifloxacin Hcl) 3 Ml Drops 1 Drop LEFTEYE TID Prednisolone Acetate 5 Ml Drops.susp 1 Drop OS Q1HR Famotidine 20 Mg Tablet 20 Mg PO HS Coumadin (Warfarin Sodium) 5 Mg Tablet 1 Tab PO DAILY Nephro-Jimmy Tablet (Folic Acid/Vitamin B Comp W-C) 0.8 Mg Tablet 1 Tab PO DAILY Carafate (Sucralfate) 1 Gm Tablet 1 Tab PO BID Nitrostat (Nitroglycerin) 0.4 Mg Tab.subl 0.4 Mg SL PRN Q5MIN PRN Calcium Carbonate 500 Mg/5 Ml Oral.susp 2,000 Mg PO TID Aranesp Syringe (Darbepoetin Jace In Polysorbat) 100 Mcg/0.5 Ml Disp.syrin 100 Mcg SQ WEEKLY Voltaren (Diclofenac Sodium) 100 Gm Gel..gram. 1 Gm TP BID Clopidogrel (Clopidogrel Bisulfate) 75 Mg Tablet 75 Mg PO DAILY07 Renvela (Sevelamer Carbonate) 800 Mg Tablet Tab PO TID Vitamin D2 (Ergocalciferol (Vitamin D2)) 50,000 Unit Capsule 50,000 Unit PO WEEKLY Atorvastatin Calcium 80 Mg Tablet 80 Mg PO HS Allergies Allergies: Coded Allergies: iodine (Verified Allergy, Severe, THROAT SWELLING, 03/29/16) lisinopril (Verified Allergy, Severe, 03/16/16) Fish Containing Products (Verified Allergy, Intermediate, 03/16/16) Penicillins (Verified Allergy, Intermediate, SEE COMMENT, 04/13/16) 05/19/15 Pt doesnt know reaction; ID starting Meropenem, HAS TOLERATED CEFAZOLIN piperacillin (Verified Allergy, Intermediate, Hives, 03/16/16) tazobactam (Verified Allergy, Intermediate, 03/16/16) ROS Review of System GEN: + Fevers + Chills EYES: no new Visual Complaints ENT: no EN Drainage no Hearing deficiets CVS: no Orthopnea no CP RESP: no SOB no MCCLAIN GI: min Nausea no Vomiting : no Dysuria no Urgency HEME: no easy bruising no Palp Ly Nodes NEURO no Focal Weakness no Sz PSYCH: no Suicidal Ideation no Depression SKIN: no Rashes + wound on left foot ENDO: no Polyuria or Polydipsia no Hot/Cold Intolerance MU SK: no Arthraigia min Myalgia Physical Exam Physical Exam General Appearance: Awake Alert Oriented x 3 In no Distress Eyes: VIsion Unchanged Conjunctiva Normal EN: No EN Drainage Mucous Memb. moist Neck: no JVD no JVP Supple no Thyromegaly CVS: S1 S2 + Murmur No Gallop No Rub no Edema Resp: no Rales no Rhonchi no Acc. Muscle use GI: BAS +ve NO Bruit Non Tender Non Distended : no CVA tenderness; no Suprapubic Tenderness SKIN: no Rashes left foot wound in bandage Mu.Sk: Adequate ROM no Muscle Atrophy Heme: Unable to palpate Obvious LAD no Splenomegaly NEURO: Good Strength and Tone Cranial Nerves II - XII grossly intact Psych: not Depressed no Active hallucination Vital Signs Vital Signs Date Time Temp Pulse Resp B/P (MAP) Pulse Ox O2 Delivery O2 Flow Rate FiO2 03/01/17 08:07 Room Air 03/01/17 08:06 85 158/67 03/01/17 07:00 97.9 18 96 97.9 Assessment & Plan ESRD: Dialysis as below F 180 NR 4.5 Hrs 3 K 3.0 Ca 140 Na 35 HC03 Qb 350 + Qd 500+ Heparin 0 Units Uf to dry weight as tolerated May give 25-50 gms of 25% Albumin if needed to maintain Hemodynamic stability Treatment plan reviewed and discussed with hearing therapy teacher Anemia: no Epogen for now; Transfuse with next HD if hgb < 7 HTN: Current BP meds reviewed. See orders for changes. Bone & Mineral: follow phos and alter binder regimen as needed DFu - if Angio required then will co-ordinate with HD schedule Discussed Plan of Care and prognosis etc. at length with family. Labs Labs Laboratory Tests Test 02/28/17 18:10 02/28/17 19:15 02/28/17 20:46 03/01/17 04:40 White Blood Count 4.5 x10^3/uL (4.0-11.0) 4.7 x10^3/uL (4.0-11.0) Red Blood Count 4.13 x10^6/uL (4.30-5.70) 3.58 x10^6/uL (4.30-5.70) Hemoglobin 12.8 g/dL (13.0-17.5) 11.2 g/dL (13.0-17.5) Hematocrit 38.1 % (39.0-53.0) 33.8 % (39.0-53.0) Mean Corpuscular Volume 92 fL (79-100) 95 fL (79-100) Mean Corpuscular Hemoglobin 31 pg (25-35) 31 pg (25-35) Mean Corpuscular Hemoglobin Concent 34 g/dL (31-37) 33 g/dL (31-37) Red Cell Distribution Width 15.5 % (11.5-14.5) 15.0 % (11.5-14.5) Platelet Count 158 x10^3/uL (140-400) 132 x10^3/uL (140-400) Neutrophils (%) (Auto) 57 % (31-73) 61 % (31-73) Lymphocytes (%) (Auto) 26 % (24-48) 21 % (24-48) Monocytes (%) (Auto) 13 % (0-9) 13 % (0-9) Eosinophils (%) (Auto) 2 % (0-3) 3 % (0-3) Basophils (%) (Auto) 1 % (0-3) 2 % (0-3) Neutrophils # (Auto) 2.6 x10^3uL (1.8-7.7) 2.9 x10^3uL (1.8-7.7) Lymphocytes # (Auto) 1.2 x10^3/uL (1.0-4.8) 1.0 x10^3/uL (1.0-4.8) Monocytes # (Auto) 0.6 x10^3/uL (0.0-1.1) 0.6 x10^3/uL (0.0-1.1) Eosinophils # (Auto) 0.1 x10^3/uL (0.0-0.7) 0.1 x10^3/uL (0.0-0.7) Basophils # (Auto) 0.1 x10^3/uL (0.0-0.2) 0.1 x10^3/uL (0.0-0.2) Prothrombin Time 13.3 SEC (11.7-14.0) 13.9 SEC (11.7-14.0) Prothromb Time International Ratio 1.1 (0.8-1.1) 1.1 (0.8-1.1) Sodium Level 134 mmol/L (136-145) 137 mmol/L (136-145) Potassium Level 3.9 mmol/L (3.5-5.1) 4.1 mmol/L (3.5-5.1) Chloride Level 93 mmol/L (98-107) 97 mmol/L (98-107) Carbon Dioxide Level 30 mmol/L (21-32) 31 mmol/L (21-32) Anion Gap 11 (6-14) 9 (6-14) Blood Urea Nitrogen 61 mg/dL (8-26) 67 mg/dL (8-26) Creatinine 5.8 mg/dL (0.7-1.3) 6.1 mg/dL (0.7-1.3) Estimated GFR (Cockcroft-Gault) 12.5 11.8 BUN/Creatinine Ratio 11 (6-20) Glucose Level 283 mg/dL (70-99) 278 mg/dL (70-99) Calcium Level 8.5 mg/dL (8.5-10.1) 7.7 mg/dL (8.5-10.1) Total Bilirubin 0.4 mg/dL (0.2-1.0) Aspartate Amino Transf (AST/SGOT) 18 U/L (15-37) Alanine Aminotransferase (ALT/SGPT) 19 U/L (16-63) Alkaline Phosphatase 100 U/L (46-116) Total Protein 8.2 g/dL (6.4-8.2) Albumin 3.3 g/dL (3.4-5.0) Albumin/Globulin Ratio 0.7 (1.0-1.7) Glucose (Fingerstick) 222 mg/dL (70-99) Test 03/01/17 07:05 Glucose (Fingerstick) 228 mg/dL (70-99) Laboratory Tests Test 02/28/17 18:10 02/28/17 19:15 02/28/17 20:46 03/01/17 04:40 White Blood Count 4.5 x10^3/uL (4.0-11.0) 4.7 x10^3/uL (4.0-11.0) Red Blood Count 4.13 x10^6/uL (4.30-5.70) 3.58 x10^6/uL (4.30-5.70) Hemoglobin 12.8 g/dL (13.0-17.5) 11.2 g/dL (13.0-17.5) Hematocrit 38.1 % (39.0-53.0) 33.8 % (39.0-53.0) Mean Corpuscular Volume 92 fL (79-100) 95 fL (79-100) Mean Corpuscular Hemoglobin 31 pg (25-35) 31 pg (25-35) Mean Corpuscular Hemoglobin Concent 34 g/dL (31-37) 33 g/dL (31-37) Red Cell Distribution Width 15.5 % (11.5-14.5) 15.0 % (11.5-14.5) Platelet Count 158 x10^3/uL (140-400) 132 x10^3/uL (140-400) Neutrophils (%) (Auto) 57 % (31-73) 61 % (31-73) Lymphocytes (%) (Auto) 26 % (24-48) 21 % (24-48) Monocytes (%) (Auto) 13 % (0-9) 13 % (0-9) Eosinophils (%) (Auto) 2 % (0-3) 3 % (0-3) Basophils (%) (Auto) 1 % (0-3) 2 % (0-3) Neutrophils # (Auto) 2.6 x10^3uL (1.8-7.7) 2.9 x10^3uL (1.8-7.7) Lymphocytes # (Auto) 1.2 x10^3/uL (1.0-4.8) 1.0 x10^3/uL (1.0-4.8) Monocytes # (Auto) 0.6 x10^3/uL (0.0-1.1) 0.6 x10^3/uL (0.0-1.1) Eosinophils # (Auto) 0.1 x10^3/uL (0.0-0.7) 0.1 x10^3/uL (0.0-0.7) Basophils # (Auto) 0.1 x10^3/uL (0.0-0.2) 0.1 x10^3/uL (0.0-0.2) Prothrombin Time 13.3 SEC (11.7-14.0) 13.9 SEC (11.7-14.0) Prothromb Time International Ratio 1.1 (0.8-1.1) 1.1 (0.8-1.1) Sodium Level 134 mmol/L (136-145) 137 mmol/L (136-145) Potassium Level 3.9 mmol/L (3.5-5.1) 4.1 mmol/L (3.5-5.1) Chloride Level 93 mmol/L (98-107) 97 mmol/L (98-107) Carbon Dioxide Level 30 mmol/L (21-32) 31 mmol/L (21-32) Anion Gap 11 (6-14) 9 (6-14) Blood Urea Nitrogen 61 mg/dL (8-26) 67 mg/dL (8-26) Creatinine 5.8 mg/dL (0.7-1.3) 6.1 mg/dL (0.7-1.3) Estimated GFR (Cockcroft-Gault) 12.5 11.8 BUN/Creatinine Ratio 11 (6-20) Glucose Level 283 mg/dL (70-99) 278 mg/dL (70-99) Calcium Level 8.5 mg/dL (8.5-10.1) 7.7 mg/dL (8.5-10.1) Total Bilirubin 0.4 mg/dL (0.2-1.0) Aspartate Amino Transf (AST/SGOT) 18 U/L (15-37) Alanine Aminotransferase (ALT/SGPT) 19 U/L (16-63) Alkaline Phosphatase 100 U/L (46-116) Total Protein 8.2 g/dL (6.4-8.2) Albumin 3.3 g/dL (3.4-5.0) Albumin/Globulin Ratio 0.7 (1.0-1.7) Glucose (Fingerstick) 222 mg/dL (70-99) Test 03/01/17 07:05 Glucose (Fingerstick) 228 mg/dL (70-99) Images Images IMPRESSION: 1. Apparent ulcer plantar to the first metatarsal head. There is marrow edema with loss of some fatty marrow signal within the distal first metatarsal head remnant, suspicious for osteomyelitis. 2. No evidence of drainable abscess. MYRON LIANG MD Mar 01, 2017 09:49
--- NOTE | 2017-03-01 10:01 | PDOC2 ---
GI CONSULT Reason For Consult: Abd pain HPI: HPI: 51 y/o male previously evaluated by Dr. Hager for anemia; EGD and colonoscopy last year showed non-erosive gastritis and internal hemorrhoids. H/o GERD previously on Prevacid, stopped due to fear of adverse effects, now takes Tums. On this occasion admitted w/ diabetic foot ulcer. Also c/o right-sided abd pain for "a couple months." Initially started as a cramp during dialysis - apparently not uncommon for him to have a lot of cramps. Now worse w/ movement. Vomited this morning, first occurrence. No change in appetite ( currently eating toast and eggs), weight loss, diarrhea, constipation, or bleeding. Labs and imaging as below, abd US w/ fatty liver and normal gallbladder. ID and renal following. PMH: PMH: A Fib, CAD, MA, HTN, HLD, PVD, asthma, COPD, CVA, peripheral neuropathy, GERD, OA, ESRD on HD, DM, dialysis fistula, cataract removal, left knee replacement, toe amputations, "89 surgeries from football injuries" FH: Family History: No pertinent hx (denies GI cancers) Social History: Smoke: No ALCOHOL: none Drugs: None ROS: GEN: +fever HEENT: Denies blurred vision, sore throat CV: Denies chest pain RESP: Denies shortness of air, cough GI: Per HPI : Denies hematuria, dysuria ENDO: Denies weight changes NEURO: Denies confusion, dizziness MSK: Denies weakness, joint pain/swelling SKIN: foot wound Vitals: Vitals: Vital Signs Date Time Temp Pulse Resp B/P (MAP) Pulse Ox O2 Delivery O2 Flow Rate FiO2 03/01/17 08:07 Room Air 03/01/17 08:06 85 158/67 03/01/17 07:00 97.9 18 96 97.9 Labs: Labs: Laboratory Tests Test 02/28/17 18:10 02/28/17 19:15 02/28/17 20:46 03/01/17 04:40 White Blood Count 4.5 x10^3/uL (4.0-11.0) 4.7 x10^3/uL (4.0-11.0) Red Blood Count 4.13 x10^6/uL (4.30-5.70) 3.58 x10^6/uL (4.30-5.70) Hemoglobin 12.8 g/dL (13.0-17.5) 11.2 g/dL (13.0-17.5) Hematocrit 38.1 % (39.0-53.0) 33.8 % (39.0-53.0) Mean Corpuscular Volume 92 fL (79-100) 95 fL (79-100) Mean Corpuscular Hemoglobin 31 pg (25-35) 31 pg (25-35) Mean Corpuscular Hemoglobin Concent 34 g/dL (31-37) 33 g/dL (31-37) Red Cell Distribution Width 15.5 % (11.5-14.5) 15.0 % (11.5-14.5) Platelet Count 158 x10^3/uL (140-400) 132 x10^3/uL (140-400) Neutrophils (%) (Auto) 57 % (31-73) 61 % (31-73) Lymphocytes (%) (Auto) 26 % (24-48) 21 % (24-48) Monocytes (%) (Auto) 13 % (0-9) 13 % (0-9) Eosinophils (%) (Auto) 2 % (0-3) 3 % (0-3) Basophils (%) (Auto) 1 % (0-3) 2 % (0-3) Neutrophils # (Auto) 2.6 x10^3uL (1.8-7.7) 2.9 x10^3uL (1.8-7.7) Lymphocytes # (Auto) 1.2 x10^3/uL (1.0-4.8) 1.0 x10^3/uL (1.0-4.8) Monocytes # (Auto) 0.6 x10^3/uL (0.0-1.1) 0.6 x10^3/uL (0.0-1.1) Eosinophils # (Auto) 0.1 x10^3/uL (0.0-0.7) 0.1 x10^3/uL (0.0-0.7) Basophils # (Auto) 0.1 x10^3/uL (0.0-0.2) 0.1 x10^3/uL (0.0-0.2) Prothrombin Time 13.3 SEC (11.7-14.0) 13.9 SEC (11.7-14.0) Prothromb Time International Ratio 1.1 (0.8-1.1) 1.1 (0.8-1.1) Sodium Level 134 mmol/L (136-145) 137 mmol/L (136-145) Potassium Level 3.9 mmol/L (3.5-5.1) 4.1 mmol/L (3.5-5.1) Chloride Level 93 mmol/L (98-107) 97 mmol/L (98-107) Carbon Dioxide Level 30 mmol/L (21-32) 31 mmol/L (21-32) Anion Gap 11 (6-14) 9 (6-14) Blood Urea Nitrogen 61 mg/dL (8-26) 67 mg/dL (8-26) Creatinine 5.8 mg/dL (0.7-1.3) 6.1 mg/dL (0.7-1.3) Estimated GFR (Cockcroft-Gault) 12.5 11.8 BUN/Creatinine Ratio 11 (6-20) Glucose Level 283 mg/dL (70-99) 278 mg/dL (70-99) Calcium Level 8.5 mg/dL (8.5-10.1) 7.7 mg/dL (8.5-10.1) Total Bilirubin 0.4 mg/dL (0.2-1.0) Aspartate Amino Transf (AST/SGOT) 18 U/L (15-37) Alanine Aminotransferase (ALT/SGPT) 19 U/L (16-63) Alkaline Phosphatase 100 U/L (46-116) Total Protein 8.2 g/dL (6.4-8.2) Albumin 3.3 g/dL (3.4-5.0) Albumin/Globulin Ratio 0.7 (1.0-1.7) Glucose (Fingerstick) 222 mg/dL (70-99) Test 03/01/17 07:05 Glucose (Fingerstick) 228 mg/dL (70-99) Allergies: Coded Allergies: iodine (Verified Allergy, Severe, THROAT SWELLING, 03/29/16) lisinopril (Verified Allergy, Severe, 03/16/16) Fish Containing Products (Verified Allergy, Intermediate, 03/16/16) Penicillins (Verified Allergy, Intermediate, SEE COMMENT, 04/13/16) 05/19/15 Pt doesnt know reaction; ID starting Meropenem, HAS TOLERATED CEFAZOLIN piperacillin (Verified Allergy, Intermediate, Hives, 03/16/16) tazobactam (Verified Allergy, Intermediate, 03/16/16) Medications: Current Medications Medications (Trade) Dose Ordered Sig/[place] Route PRN Reason Start Time Stop Time Status Last Admin Dose Admin Morphine Sulfate 4 mg PRN Q15MIN PRN IV/SQ PAIN GREATER THAN 3/10 02/28/17 18:00 03/01/17 17:59 02/28/17 19:05 Citalopram Hydrobromide (CeleXA) 20 mg DAILY PO 03/01/17 09:00 03/01/17 08:06 Clopidogrel Bisulfate (Plavix) 75 mg DAILY07 PO 03/01/17 07:00 03/01/17 06:29 Dexamethasone (Maxidex) 1 drop Q4HRS OS 02/28/17 20:00 03/01/17 08:09 Diclofenac Sodium (Voltaren) 1 ayaz BID TP 02/28/17 21:00 03/01/17 08:05 Famotidine (Pepcid) 20 mg HS PO 02/28/17 21:00 02/28/17 23:25 Vitamin B Complex/ Vitamin C (Fernanda-Jimmy) 1 tab DAILY PO 03/01/17 09:00 03/01/17 08:05 Isosorbide Mononitrate (Imdur) 30 mg DAILY PO 03/01/17 09:00 03/01/17 08:06 Ketorolac Tromethamine (Acular) 1 drop QID OS 02/28/17 21:00 03/01/17 08:09 Levetiracetam (Keppra) 500 mg BID PO 02/28/17 21:00 03/01/17 08:06 Levothyroxine Sodium (Synthroid) 175 mcg DAILY07 PO 03/01/17 07:00 03/01/17 06:28 Metoprolol Tartrate (Lopressor) 50 mg BID PO 02/28/17 21:00 03/01/17 08:05 Morphine Sulfate (Ms Contin) 30 mg TID PO 02/28/17 21:00 03/01/17 08:07 Moxifloxacin HCl (Vigamox) 1 drop TID OU 02/28/17 21:00 03/01/17 08:08 Sucralfate (Carafate) 1 gm BID PO 02/28/17 21:00 03/01/17 08:05 Trazodone HCl (Desyrel) 25 mg QHS PO 02/28/17 21:00 02/28/17 23:23 Atorvastatin Calcium (Lipitor) 80 mg QHS PO 02/28/17 21:00 02/28/17 23:24 Risperidone (RisperDAL) 0.5 mg QHS PO 02/28/17 21:00 02/28/17 23:24 Ondansetron HCl (Zofran) 4 mg PRN Q6HRS PRN IV NAUSEA/VOMITING 02/28/17 19:45 03/01/17 08:04 Morphine Sulfate 2 mg PRN Q2HR PRN IV PAIN 02/28/17 19:45 03/01/17 06:29 Cefepime HCl 1 gm/ Sodium Chloride 50 ml @ 100 mls/hr QHS IV 02/28/17 23:30 02/28/17 23:30 Vancomycin HCl 2 gm/Sodium Chloride 500 ml @ 250 mls/hr 1X ONCE IV 02/28/17 23:30 03/01/17 01:29 DC 02/28/17 23:30 Insulin Aspart (NovoLOG) 0-9 UNITS TIDWMEALS SQ 03/01/17 08:00 03/01/17 08:14 Imaging: Imaging: Abd US Hyperechogenicity of the hepatic parenchyma is consistent with diffuse hepatic steatosis. This lowers sensitivity for focal lesions. None are seen. The spleen measures 12.6 cm. The gallbladder is unremarkable without evidence of stones, wall thickening or pericholecystic fluid. There is no sonographic Barron sign. The common duct measures 4 mm. The pancreas is mostly obscured. Limited images of the pancreatic head reveal no gross abnormality. The right kidney measures 10.8 cm. Cortical thickness is preserved. Cortical echogenicity appears mildly increased, though visualization is limited. The lower pole is obscured. There is no hydronephrosis. The left kidney measures 9.7 cm. Cortical thickness and echogenicity are preserved. There is no hydronephrosis. The visualized portions of the abdominal aorta and inferior vena cava are grossly patent and normal in caliber. IMPRESSION: 1. Limited visualization of the pancreas, right kidney and midline structures. 2. No cause for acute abdominal pain is seen. 3. Mildly increased right renal cortical echogenicity may be a technical finding. Correlate clinically for intrinsic renal disease. LE MRI IMPRESSION: 1. Apparent ulcer plantar to the first metatarsal head. There is marrow edema with loss of some fatty marrow signal within the distal first metatarsal head remnant, suspicious for osteomyelitis. 2. No evidence of drainable abscess. Left Foot X-Ray IMPRESSION: Soft tissue irregularity. No acute bony finding. No definite plain film findings of osteomyelitis. PE: GEN: NAD, sitting on edge of bed eating breakfast HEENT: Atraumatic, PERRL LUNGS: clear HEART: RRR ABD: NABS, S/ND, RUQ tenderness to right flank (seems mild) SKIN: left foot wound NEURO/PSYCH: A & O 3 A/P: A/P: Foot wound/infection RUQ/flank pain -onset a couple months ago, cramps during dialysis, worse w/ movement -abd US unrevealing Vomiting x 1 ESRD on HD, DM Anemia -EGD and colonoscopy last year unrevealing -- Continue medical therapy. ?MSK issue Try H2 roberta for h/o GERD. Consider GES later on if vomiting remains an issue, does have risk factors for gastroparesis. CARINE OTTO Mar 01, 2017 10:01
[2017-03-01 11:00] VITALS: BP 137/80
[2017-03-01] MEDS: VANCOMYCIN PER PHARMACY MC PRN (11:43)
[2017-03-01] MEDS ORDERED: IV NORMAL SALINE 1000ML BAG 1,000 ML IV PRN ×2 (12:02)
[2017-03-01] MEDS ORDERED: diphenhydrAMINE 50 MG/ML VIAL IV PRN ×2 (12:15)
[2017-03-01] MEDS ORDERED: DIALYSIS PATIENT. MC PRN (12:15)
[2017-03-01] MEDS ORDERED: LIDOCAINE 1% PF 2 ML VIAL. ID STA (13:54)
[2017-03-01] MEDS ORDERED: WARFARIN 7.5 MG TABLET. PO ONE (16:00)
[2017-03-01] MEDS ORDERED: WARFARIN 5 MG TABLET. PO SCH (16:00)
[2017-03-01] MEDS: WARFARIN 5 MG TABLET. PO SCH (19:03)
[2017-03-01 19:05] VITALS: BP 135/77
[2017-03-01] MEDS: ATORVASTATIN CALCIUM 40 MG TABLET. PO SCH (21:54)
[2017-03-01] MEDS: FAMOTIDINE 20 MG TABLET. PO SCH (21:54)
[2017-03-01] MEDS: risperiDONE 0.25 MG TABLET. PO SCH (21:55)
[2017-03-01] MEDS: CEFEPIME HCL 1 GM in IV NORMAL SALINE 50ML 50 ML IV SCH (21:56)
[2017-03-01] MEDS: traZODone 50 MG TABLET. PO SCH (21:56)
[2017-03-01 23:05] VITALS: BP 116/64
[2017-03-02] VITALS (12 sets, daily range): BP systolic 105–140; BP diastolic 56–84
[2017-03-02] MEDS: DEXAMETHASONE 0.1% OPHTH SOLUTION 5ML BOTTLE. OS SCH ×6 (00:17→21:01)
[2017-03-02] MEDS: MORPHINE SULFATE 2 MG/ML DISP.SYRIN. IV PRN ×3 (04:05→12:39)
[2017-03-02] MEDS ORDERED: VANCOMYCIN RANDOM LEVEL. MC ONE (05:00)
[2017-03-02] MEDS: CLOPIDOGREL BISULFATE 75 MG TABLET PO SCH (06:29)
[2017-03-02] MEDS: LEVOTHYROXINE 175 MCG TABLET PO SCH (06:29)
[2017-03-02] MEDS ORDERED: HYDROmorphone 2 MG/ML VIAL IV PRN (07:00)
[2017-03-02] MEDS ORDERED: MORPHINE SULFATE 2 MG/ML DISP.SYRIN. IV PRN ×2 (07:00→17:30)
[2017-03-02] MEDS ORDERED: LIDOCAINE 1% 1 ML SYRINGE. ID PRN (07:00)
[2017-03-02] MEDS ORDERED: fentaNYL PF VIAL 100 MCG/2 ML VIAL IV PRN ×3 (07:00→17:30)
[2017-03-02] MEDS ORDERED: PROCHLORPERAZINE 10 MG/2 ML VIAL. IV PRN (07:00)
[2017-03-02] MEDS: SUCRALFATE 1 GM TABLET. PO SCH ×2 (07:48→20:59)
[2017-03-02] MEDS: CITALOPRAM 20 MG TABLET. PO SCH (07:48)
[2017-03-02] MEDS: FOLIC/VIT B COMP W-C (RENAL) TABLET. PO SCH (07:49)
[2017-03-02] MEDS: CALCIUM CARBONATE 500 MG TABLET PO SCH ×3 (07:49→21:00)
[2017-03-02] MEDS: ONDANSETRON PF 4 MG/2 ML VIAL. IV PRN (08:35)
[2017-03-02] MEDS: MOXIFLOXACIN 0.5% OPHTH SOLUTION 3ML BOTTLE. OU SCH ×3 (08:44→21:00)
[2017-03-02] MEDS: KETOROLAC TROMETHAMINE 0.5% OPHTH SOLUTION 3ML BOTTLE. OS SCH ×4 (08:47→21:01)
[2017-03-02] MEDS: INSULIN ASPART 300 UNITS/3 ML INSULN.PEN SQ SCH ×3 (08:50→17:00)
[2017-03-02] MEDS: levETIRAcetam 500 MG TABLET PO SCH ×2 (08:51→21:00)
[2017-03-02] MEDS: DICLOFENAC SODIUM 1% TOPICAL GEL 100GM TUBE. TP SCH ×2 (08:52→20:58)
[2017-03-02] MEDS: LIDOCAINE (700MG/PATCH) PATCH. TD SCH (08:52)
[2017-03-02] MEDS: MORPHINE ER 30 MG TABLET.ER PO SCH ×3 (09:00→21:00)
--- NOTE | 2017-03-02 09:31 | PDOC ---
Infectious Disease Note Subjective Subjective pt feeling good, though some n/v persists ROS ROS GEN: Denies fevers, chills, sweats HEENT: Denies blurred vision, sore throat CV: Denies chest pain RESP: Denies shortness of air, cough GI: Denies d NEURO: Denies confusion, dizziness MSK: Denies weakness, joint pain/swelling Vital Sign Vital Signs Vital Signs Date Time Temp Pulse Resp B/P (MAP) Pulse Ox O2 Delivery O2 Flow Rate FiO2 03/02/17 08:43 Room Air 03/02/17 07:00 97.7 77 20 136/76 (96) 97 97.7 Physical Exam PHYSICAL EXAM GENERAL: NAD, Alert HEENT: PERRL, OC/OP NECK: Supple, no JVD, no LN LUNGS: Clear HEART: S1S2, no gallop, no murmur ABD: Soft, NT, no organomegaly, no rebound EXT: No edema, no cyanosis, 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
--- NOTE | 2017-03-02 10:03 | PDOC ---
Subjective: Subjective: [place] "a knot" in right side overnight - point to right axilla/ribs. Objective: Vital Signs: Vital Signs Date Time Temp Pulse Resp B/P (MAP) Pulse Ox O2 Delivery O2 Flow Rate FiO2 03/02/17 08:43 Room Air 03/02/17 07:00 97.7 77 20 136/76 (96) 97 97.7 Labs: Laboratory Tests Test 03/01/17 11:12 03/01/17 18:13 03/01/17 20:43 03/02/17 03:39 Glucose (Fingerstick) 188 mg/dL 184 mg/dL 248 mg/dL Random Vancomycin Level 15.2 mcg/mL Test 03/02/17 07:34 Glucose (Fingerstick) 218 mg/dL PE: GEN: NAD, up to chair LUNGS: wet cough ABD: vague tenderness along right ribs, perhaps some RUQ NEURO/PSYCH: A & O 3 A/P: Osteomyelitis, ESRD on HD, DM Right-sided abd pain -evolving symptoms, first RUQ, then RLQ, now RUQ/ribs -abd US unrevealing -on H2 roberta for h/o GERD, prefers no PPI Anemia -EGD and colonoscopy last year unrevealing -- Amputation today. Await CT. CARINE OTTO Mar 02, 2017 10:03
[2017-03-02] MEDS: ISOSORBIDE MONONITRATE ER 30 MG TAB.ER.24H PO SCH (10:32)
[2017-03-02] MEDS: METOPROLOL TART IMMED RELEASE 50 MG TABLET. PO SCH ×2 (10:32→20:59)
[2017-03-02] MEDS: VANCOMYCIN PER PHARMACY MC PRN (10:33)
--- NOTE | 2017-03-02 11:46 | PDOC ---
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 History of chronic back pain Paroxysmal atrial fibrillation Obesity GERD Hyperglycemia Plan Sliding scale insulin for hyperglycemia MRI positive for osteomyelitis consult orthopedics On vancomycin IV pharmacy to dose according to renal functions, follow blood cultures Nephrology consultation for hemodialysis Gastroenterology following INR is not therapeutic patient may have noncompliance with the warfarin resume warfarin and the daily check INRs, pharmacy to dose Labs reviewed Vitals Vitals Vital Signs Date Time Temp Pulse Resp B/P (MAP) Pulse Ox O2 Delivery O2 Flow Rate FiO2 03/02/17 10:33 Room Air 03/02/17 10:32 77 136/76 03/02/17 07:00 97.7 20 97 97.7 Physical Exam General: Alert, Oriented X3, Cooperative Heart: Regular rate, Normal S1 Lungs: Clear Abdomen: Normal bowel sounds, Soft Extremities: No clubbing, No cyanosis Labs LABS Laboratory Tests Test 03/01/17 18:13 03/01/17 20:43 03/02/17 03:39 03/02/17 07:34 Glucose (Fingerstick) 184 mg/dL (70-99) 248 mg/dL (70-99) 218 mg/dL (70-99) Random Vancomycin Level 15.2 mcg/mL Test 03/02/17 10:57 Glucose (Fingerstick) 202 mg/dL (70-99) Assessment and Plan Assessmemt and Plan Problems Medical Problems: (1) End stage renal disease Status: Acute (2) Foot ulcer, left Status: Acute Problems: Comment Review of Relevant I have reviewed the following items lila (where applicable) has been applied. Labs Laboratory Tests Test 02/28/17 18:10 02/28/17 19:15 02/28/17 20:46 03/01/17 04:40 White Blood Count 4.5 x10^3/uL (4.0-11.0) 4.7 x10^3/uL (4.0-11.0) Red Blood Count 4.13 x10^6/uL (4.30-5.70) 3.58 x10^6/uL (4.30-5.70) Hemoglobin 12.8 g/dL (13.0-17.5) 11.2 g/dL (13.0-17.5) Hematocrit 38.1 % (39.0-53.0) 33.8 % (39.0-53.0) Mean Corpuscular Volume 92 fL (79-100) 95 fL (79-100) Mean Corpuscular Hemoglobin 31 pg (25-35) 31 pg (25-35) Mean Corpuscular Hemoglobin Concent 34 g/dL (31-37) 33 g/dL (31-37) Red Cell Distribution Width 15.5 % (11.5-14.5) 15.0 % (11.5-14.5) Platelet Count 158 x10^3/uL (140-400) 132 x10^3/uL (140-400) Neutrophils (%) (Auto) 57 % (31-73) 61 % (31-73) Lymphocytes (%) (Auto) 26 % (24-48) 21 % (24-48) Monocytes (%) (Auto) 13 % (0-9) 13 % (0-9) Eosinophils (%) (Auto) 2 % (0-3) 3 % (0-3) Basophils (%) (Auto) 1 % (0-3) 2 % (0-3) Neutrophils # (Auto) 2.6 x10^3uL (1.8-7.7) 2.9 x10^3uL (1.8-7.7) Lymphocytes # (Auto) 1.2 x10^3/uL (1.0-4.8) 1.0 x10^3/uL (1.0-4.8) Monocytes # (Auto) 0.6 x10^3/uL (0.0-1.1) 0.6 x10^3/uL (0.0-1.1) Eosinophils # (Auto) 0.1 x10^3/uL (0.0-0.7) 0.1 x10^3/uL (0.0-0.7) Basophils # (Auto) 0.1 x10^3/uL (0.0-0.2) 0.1 x10^3/uL (0.0-0.2) Prothrombin Time 13.3 SEC (11.7-14.0) 13.9 SEC (11.7-14.0) Prothromb Time International Ratio 1.1 (0.8-1.1) 1.1 (0.8-1.1) Sodium Level 134 mmol/L (136-145) 137 mmol/L (136-145) Potassium Level 3.9 mmol/L (3.5-5.1) 4.1 mmol/L (3.5-5.1) Chloride Level 93 mmol/L (98-107) 97 mmol/L (98-107) Carbon Dioxide Level 30 mmol/L (21-32) 31 mmol/L (21-32) Anion Gap 11 (6-14) 9 (6-14) Blood Urea Nitrogen 61 mg/dL (8-26) 67 mg/dL (8-26) Creatinine 5.8 mg/dL (0.7-1.3) 6.1 mg/dL (0.7-1.3) Estimated GFR (Cockcroft-Gault) 12.5 11.8 BUN/Creatinine Ratio 11 (6-20) Glucose Level 283 mg/dL (70-99) 278 mg/dL (70-99) Calcium Level 8.5 mg/dL (8.5-10.1) 7.7 mg/dL (8.5-10.1) Total Bilirubin 0.4 mg/dL (0.2-1.0) Aspartate Amino Transf (AST/SGOT) 18 U/L (15-37) Alanine Aminotransferase (ALT/SGPT) 19 U/L (16-63) Alkaline Phosphatase 100 U/L (46-116) Total Protein 8.2 g/dL (6.4-8.2) Albumin 3.3 g/dL (3.4-5.0) Albumin/Globulin Ratio 0.7 (1.0-1.7) Glucose (Fingerstick) 222 mg/dL (70-99) Test 03/01/17 06:10 03/01/17 07:05 03/01/17 11:12 03/01/17 18:13 Nasal Screen MRSA (PCR) Negative (Negative) Glucose (Fingerstick) 228 mg/dL (70-99) 188 mg/dL (70-99) 184 mg/dL (70-99) Test 03/01/17 20:43 03/02/17 03:39 03/02/17 07:34 03/02/17 10:57 Glucose (Fingerstick) 248 mg/dL (70-99) 218 mg/dL (70-99) 202 mg/dL (70-99) Random Vancomycin Level 15.2 mcg/mL Laboratory Tests Test 03/01/17 18:13 03/01/17 20:43 03/02/17 03:39 03/02/17 07:34 Glucose (Fingerstick) 184 mg/dL (70-99) 248 mg/dL (70-99) 218 mg/dL (70-99) Random Vancomycin Level 15.2 mcg/mL Test 03/02/17 10:57 Glucose (Fingerstick) 202 mg/dL (70-99) Microbiology 02/28/17 Blood Culture - Preliminary, Resulted NO GROWTH AFTER 1 DAY 02/28/17 Gram Stain - Final, Complete Medications Current Medications Morphine Sulfate 4 mg PRN Q15MIN PRN IV/SQ PAIN GREATER THAN 3/10 Last administered on 02/28/17 19:05; Start 02/28/17 at 18:00; Stop 03/01/17 at 17:59 ; Status DC Morphine Sulfate 4 mg PRN Q2HR PRN IV PAIN Last administered on 03/01/17 19:08 ; Start 02/28/17 at 19:15; Stop 03/01/17 at 19:14; Status DC Citalopram Hydrobromide (CeleXA) 20 mg DAILY PO Last administered on 03/01/17 08:06; Start 03/01/17 at 09:00 Clopidogrel Bisulfate (Plavix) 75 mg DAILY07 PO Last administered on 03/01/17 06:29; Start 03/01/17 at 07:00 Darbepoetin Jace (Aranesp) 100 mcg WEEKLY SQ ; Start 03/07/17 at 09:00 Dexamethasone (Maxidex) 1 drop Q4HRS OS Last administered on 03/02/17 08:47; Start 02/28/17 at 20:00 Diclofenac Sodium (Voltaren) 1 ayaz BID TP Last administered on 03/01/17 21:56 ; Start 02/28/17 at 21:00 Ergocalciferol (Vitamin D2) 50,000 unit WEEKLY PO ; Start 03/07/17 at 09:00 Famotidine (Pepcid) 20 mg HS PO Last administered on 03/01/17 21:54; Start at 21:00 Vitamin B Complex/ Vitamin C (Fernanda-Jimmy) 1 tab DAILY PO Last administered on 08:05; Start 03/01/17 at 09:00 Isosorbide Mononitrate (Imdur) 30 mg DAILY PO Last administered on 03/02/17 10 :32; Start 03/01/17 at 09:00 Ketorolac Tromethamine (Acular) 1 drop QID OS Last administered on 03/02/17 08 :47; Start 02/28/17 at 21:00 Levetiracetam (Keppra) 500 mg BID PO Last administered on 03/01/17 21:55; Start 02/28/17 at 21:00 Levothyroxine Sodium (Synthroid) 175 mcg DAILY07 PO Last administered on 06:28; Start 03/01/17 at 07:00 Lidocaine (Lidoderm) 1 patch DAILY TD ; Start 03/01/17 at 09:00 Metoprolol Tartrate (Lopressor) 50 mg BID PO Last administered on 03/02/17 10: 32; Start 02/28/17 at 21:00 Morphine Sulfate (Ms Contin) 30 mg TID PO Last administered on 03/01/17 21:56 ; Start 02/28/17 at 21:00 Moxifloxacin HCl (Vigamox) 1 drop TID OU Last administered on 03/02/17 08:44; Start 02/28/17 at 21:00 Nitroglycerin (Nitrostat) 0.4 mg PRN Q5MIN PRN SL CHEST PAIN; Start 02/28/17 at 19:45 Sucralfate (Carafate) 1 gm BID PO Last administered on 03/01/17 21:54; Start 02/28/17 at 21:00 Trazodone HCl (Desyrel) 25 mg QHS PO Last administered on 03/01/17 21:56; Start 02/28/17 at 21:00 Warfarin Sodium (Coumadin) 5 mg DAILY16 PO ; Start 03/01/17 at 16:00; Stop 03/01 at 16:00; Status DC Albuterol Sulfate (Ventolin Neb Soln) 2.5 mg PRN Q4HRS PRN NEB SHORTNESS OF BREATH; Start 02/28/17 at 20:00 Atorvastatin Calcium (Lipitor) 80 mg QHS PO Last administered on 03/01/17 21: 54; Start 02/28/17 at 21:00 Non-Formulary Medication 5 ml DAILY LEFTEYE ; Start 03/01/17 at 09:00; Status UNV Calcium Carbonate/ Glycine (Oscal) 2,000 mg TID PO Last administered on 21:54; Start 03/01/17 at 09:00 Non-Formulary Medication 1 drop Q1HR OS ; Start 02/28/17 at 20:00; Status UNV Risperidone (RisperDAL) 0.5 mg QHS PO Last administered on 03/01/17 21:55; Start 02/28/17 at 21:00 Acetaminophen (Tylenol) 650 mg PRN Q6HRS PRN PO FEVER; Start 02/28/17 at 19:45 Ondansetron HCl (Zofran) 4 mg PRN Q6HRS PRN IV NAUSEA/VOMITING Last administered on 03/02/17 08:35; Start 02/28/17 at 19:45 Morphine Sulfate 2 mg PRN Q2HR PRN IV PAIN Last administered on 03/02/17 08:43 ; Start 02/28/17 at 19:45 Tramadol HCl (Ultram) 50 mg PRN Q6HRS PRN PO PAIN; Start 02/28/17 at 19:45 Hydralazine HCl (Apresoline) 10 mg PRN Q4HRS PRN IVP ELEVATED BP, SEE COMMENTS ; Start 02/28/17 at 19:45 Docusate Sodium (Colace) 100 mg PRN DAILY PRN PO CONSTIPATION; Start 02/28/17 at 19:45 Vancomycin HCl 2 gm/Sodium Chloride 500 ml @ 250 mls/hr 1X ONCE IV ; Start at 20:30; Stop 02/28/17 at 22:29; Status Cancel Vancomycin HCl (Vanco Per Pharmacy) 1 each PRN DAILY PRN MC SEE COMMENTS Last administered on 03/02/17 10:33; Start 02/28/17 at 20:00 Cefepime HCl 1 gm/ Sodium Chloride 50 ml @ 100 mls/hr Q12HR IV ; Start at 20:30; Status Cancel Warfarin Sodium (Coumadin Per Physician) 1 each PRN DAILY PRN MC SEE COMMENTS Last administered on 03/02/17 10:30; Start 02/28/17 at 20:00 Vancomycin HCl 1.25 gm/Sodium Chloride 250 ml @ 167 mls/hr Q48H IV ; Start at 23:00; Stop 03/02/17 at 23:00; Status DC Vancomycin HCl 1 each 1X ONCE MC ; Start 03/04/17 at 22:30; Stop 03/04/17 at 22 :30; Status DC Cefepime HCl 1 gm/ Sodium Chloride 50 ml @ 100 mls/hr QHS IV Last administered on 03/01/17 21:56; Start 02/28/17 at 23:30 Vancomycin HCl 2 gm/Sodium Chloride 500 ml @ 250 mls/hr 1X ONCE IV Last administered on 02/28/17 23:30; Start 02/28/17 at 23:30; Stop 03/01/17 at 01:29 ; Status DC Insulin Aspart (NovoLOG) 0-9 UNITS TIDWMEALS SQ Last administered on 03/02/17 08:50; Start 03/01/17 at 08:00 Dextrose (Dextrose 50%-Water Syringe) 12.5 gm PRN Q15MIN PRN IV SEE COMMENTS; Start 03/01/17 at 03:00 Vancomycin HCl 1 each 1X ONCE MC Last administered on 03/02/17 05:00; Start 03/02/17 at 05:00; Stop 03/02/17 at 05:01; Status DC Sodium Chloride 1,000 ml @ 1,000 mls/hr Q1H PRN IV hypotension; Start 03/01/17 at 12:02; Stop 03/01/17 at 18:01; Status DC Diphenhydramine HCl (Benadryl) 25 mg 1X PRN PRN IV ITCHING; Start 03/01/17 at 12:15; Stop 03/02/17 at 12:14 Diphenhydramine HCl (Benadryl) 25 mg 1X PRN PRN IV ITCHING; Start 03/01/17 at 12:15; Stop 03/02/17 at 12:14 Sodium Chloride 1,000 ml @ 400 mls/hr Q2H30M PRN IV PATENCY; Start 03/01/17 at 12:02; Stop 03/02/17 at 00:01; Status DC Info (PHARMACY MONITORING -- do not chart) 1 each PRN DAILY PRN MC SEE COMMENTS ; Start 03/01/17 at 12:15 Warfarin Sodium (Coumadin) 7.5 mg 1X WARF ONCE PO ; Start 03/01/17 at 16:00; Stop 03/01/17 at 16:01; Status Cancel Warfarin Sodium (Coumadin) 5 mg DAILY16 PO Last administered on 03/01/17t 19:03 ; Start 03/01/17 at 16:00 Lidocaine HCl (Xylocaine-Mpf 1% Vial) 0.5 ml 1X STAT ID Last administered on 14:31; Start 03/01/17 at 13:54; Stop 03/01/17 at 13:56; Status DC Fentanyl Citrate (Fentanyl 2ml Vial) 25 mcg PRN Q5MIN PRN IV MILD PAIN; Start 03/02/17 at 07:00; Stop 03/02/17 at 23:00 Fentanyl Citrate (Fentanyl 2ml Vial) 50 mcg PRN Q5MIN PRN IV MODERATE PAIN; Start 03/02/17 at 07:00; Stop 03/02/17 at 23:00 Morphine Sulfate 1 mg PRN Q10MIN PRN IV SEVERE PAIN; Start 03/02/17 at 07:00; Stop 03/02/17 at 23:00 Lidocaine HCl 2 ml PRN 1X PRN ID PRIOR TO IV START; Start 03/02/17 at 07:00; Stop 03/02/17 at 23:00 Hydromorphone HCl (Dilaudid) 0.5 mg PRN Q10MIN PRN IV SEV PAIN, Second choice; Start 03/02/17 at 07:00; Stop 03/02/17 at 23:00 Prochlorperazine Edisylate (Compazine) 5 mg PACU PRN PRN IV NAUSEA, MRX1; Start 03/02/17 at 07:00; Stop 03/02/17 at 23:00 Sodium Chloride 1,000 ml @ 0 mls/hr Q0M IV ; Start 03/02/17 at 13:45 Vancomycin HCl 500 mg/Sodium Chloride 100 ml @ 100 mls/hr QTUTHSA IV ; Start at 16:00 Active Scripts Active Levetiracetam 500 Mg Tablet 500 Mg PO BID Morphine Sulfate Er (Morphine Sulfate) 30 Mg Tablet.er 30 Mg PO TID Lidoderm (Lidocaine) 700 Mg Adh..patch 1 Patch TD DAILY Ventolin Hfa Inhaler (Albuterol Sulfate) 18 Gm Hfa.aer.ad 2 Puff INH Q4HRS PRN Metoprolol Tartrate 50 Mg Tablet 50 Mg PO BID Synthroid (Levothyroxine Sodium) 175 Mcg Tablet 175 Mcg PO DAILY07 Isosorbide Mononitrate Er (Isosorbide Mononitrate) 30 Mg Tab.er.24h 30 Mg PO DAILY Reported Ketorolac Tromethamine 5 Ml Drops 1 Drop OS QID Maxidex (Dexamethasone) 5 Ml Drops.susp 1 Drop OS Q4HRS Vigamox (Moxifloxacin Hcl) 3 Ml Drops 1 Drop EACHEYE TID Ropinirole Hcl 0.25 Mg Tablet 0.25 Mg PO Oxycodone Hcl 5 Mg Capsule 5 Mg PO PRN Midodrine Hcl 5 Mg Tablet 5 Mg PO Citalopram Hbr (Citalopram Hydrobromide) 20 Mg Tablet 1 Tab PO DAILY Trazodone Hcl 50 Mg Tablet 0.5-1 Tab PO QHS Risperidone 0.5 Mg Tablet 1 Tab PO QHS Bromsite (Bromfenac Sodium) 5 Ml Drops 5 Ml LEFTEYE DAILY Vigamox (Moxifloxacin Hcl) 3 Ml Drops 1 Drop LEFTEYE TID Prednisolone Acetate 5 Ml Drops.susp 1 Drop OS Q1HR Famotidine 20 Mg Tablet 20 Mg PO HS Coumadin (Warfarin Sodium) 5 Mg Tablet 1 Tab PO DAILY Nephro-Jimmy Tablet (Folic Acid/Vitamin B Comp W-C) 0.8 Mg Tablet 1 Tab PO DAILY Carafate (Sucralfate) 1 Gm Tablet 1 Tab PO BID Nitrostat (Nitroglycerin) 0.4 Mg Tab.subl 0.4 Mg SL PRN Q5MIN PRN Calcium Carbonate 500 Mg/5 Ml Oral.susp 2,000 Mg PO TID Aranesp Syringe (Darbepoetin Jace In Polysorbat) 100 Mcg/0.5 Ml Disp.syrin 100 Mcg SQ WEEKLY Voltaren (Diclofenac Sodium) 100 Gm Gel..gram. 1 Gm TP BID Clopidogrel (Clopidogrel Bisulfate) 75 Mg Tablet 75 Mg PO DAILY07 Renvela (Sevelamer Carbonate) 800 Mg Tablet Tab PO TID Vitamin D2 (Ergocalciferol (Vitamin D2)) 50,000 Unit Capsule 50,000 Unit PO WEEKLY Atorvastatin Calcium 80 Mg Tablet 80 Mg PO HS Vitals/I & O Vital Sign - Last 24 Hours 03/01/17 03/01/17 03/01/17 03/01/17 12:29 19:03 19:05 19:08 Temp 98.3 98.3 Pulse 87 Resp 18 B/P (MAP) 135/77 (96) Pulse Ox 97 O2 Delivery Room Air Room Air Room Air Room Air 03/01/17 03/01/17 03/01/17 03/01/17 20:46 21:55 21:56 23:05 Temp 97.9 97.9 Pulse 87 82 Resp 20 20 16 B/P (MAP) 135/77 116/64 (81) Pulse Ox 98 O2 Delivery Room Air Room Air Room Air 03/02/17 03/02/17 03/02/17 03/02/17 01:56 03:05 04:05 04:35 Temp 98.1 98.1 Pulse 80 Resp 20 18 20 20 B/P (MAP) 133/75 (94) Pulse Ox 97 O2 Delivery Room Air Room Air Room Air 03/02/17 03/02/17 03/02/17 03/02/17 07:00 08:43 10:32 10:32 Temp 97.7 97.7 Pulse 77 77 77 Resp 20 B/P (MAP) 136/76 (96) 136/76 136/76 Pulse Ox 97 O2 Delivery Room Air Room Air 03/02/17 10:33 O2 Delivery Room Air Intake and Output 03/01/17 03/01/17 03/02/17 15:00 23:00 07:00 Intake Total 100 ml Output Total 0 ml Balance 100 ml KEITH BUCK MD Mar 02, 2017 11:46
--- NOTE | 2017-03-02 11:48 | RAD ---
INDICATION: Right lower quadrant pain COMPARISON: 07/13/2016 TECHNIQUE: Axial CT images were obtained through the abdomen and pelvis without intravenous contrast. Coronal reformations were processed. FINDINGS: Abdomen: Chest Base: Coronary artery calcific atherosclerosis. Vessels: Mild calcific atherosclerosis. Liver/Biliary: No intrahepatic biliary duct dilation. Pancreas: No gross abnormality. Spleen: Normal. Kidneys/Adrenal: No hydronephrosis. GI: Right-sided fat-containing inguinal hernia. The appendix does not appear inflamed. No dilated loops of bowel suggest obstruction. Degenerative changes of spine. This includes at L4-5 and L5-S1 where there are disc osteophyte complexes narrowing the central canal and neural foramina. L1 compression fracture with postkyphoplasty changes. Pelvis: Bladder: No definite adjacent inflammation. IMPRESSION: 1. No evidence of bowel obstruction, hydronephrosis or appendicitis. 2. Coronary artery calcific atherosclerosis partially seen. PQRS Compliance Statement: One or more of the following individualized dose reduction techniques were utilized for this examination: 1. Automated exposure control 2. Adjustment of the mA and/or kV according to patient size 3. Use of iterative reconstruction technique
[2017-03-02] MEDS ORDERED: BUPIVACAINE-EPI 0.25%-1:200000 50 ML VIAL. ONE (11:53)
[2017-03-02] MEDS ORDERED: IV NORMAL SALINE 1000ML BAG 1,000 ML IV SCH (13:45)
--- NOTE | 2017-03-02 13:55 | PDOC ---
SUBJECTIVE ROS ESRD doing OK overall CVS: no Orthopnea, no CP RESP: no SOB, no MCCLAIN GI: no Nausea, no Vomiting : no Dysuria, no Urgency OBJECTIVE Vital Signs Vital Signs Date Time Temp Pulse Resp B/P (MAP) Pulse Ox O2 Delivery O2 Flow Rate FiO2 03/02/17 12:39 Room Air 03/02/17 11:00 97.5 80 20 127/79 (95) 96 97.5 I & 0 Intake and Output 03/02/17 07:00 Intake Total 100 ml Output Total 0 ml Balance 100 ml Intake Oral 100 ml Output Urine Total 0 ml # Voids 1 PHYSICAL EXAM Physical Exam General Appearance: Awake Alert Oriented x 3 In no Distress Eyes: VIsion Unchanged Conjunctiva Normal EN: No EN Drainage Mucous Memb. moist Neck: no JVD no JVP Supple no Thyromegaly CVS: S1 S2 + Murmur No Gallop No Rub no Edema Resp: no Rales no Rhonchi no Acc. Muscle use GI: BAS +ve NO Bruit Non Tender Non Distended : no CVA tenderness; no Suprapubic Tenderness DIAGNOSIS/ASSESSMENT Assessment & Plan ESRD: Current fluid and E-lyte status does not necessitate emergent need for dialysis. Will re-evaluate for dialysis in the am and continue on TTSat schedule. Anemia: no Epogen for now; Transfuse with next HD if hgb < 7 HTN: Current BP meds reviewed. See orders for changes. Bone & Mineral: follow phos and alter binder regimen as needed DFu - TMT amputation later today Discussed Plan of Care and prognosis etc. at length with family at bedside Problems: COMMENT/RELEVANT DATA Meds Current Medications Medications (Trade) Dose Ordered Sig/[place] Start Time Stop Time Status Last Admin Dose Admin Acetaminophen (Tylenol) 650 mg PRN Q6HRS PRN 02/28/17 19:45 Albuterol Sulfate (Ventolin Neb Soln) 2.5 mg PRN Q4HRS PRN 02/28/17 20:00 Atorvastatin Calcium (Lipitor) 80 mg QHS 02/28/17 21:00 03/01/17 21:54 80 MG Bupivacaine HCl/ Epinephrine Bitart (Marcaine-Epi 0.25%-[id number]) 50 ml STK-MED ONCE 03/02/17 11:53 03/02/17 11:54 DC Calcium Carbonate/ Glycine (Oscal) 2,000 mg TID 7/20/17 09:00 03/01/17 21:54 2,000 MG Cefepime HCl 1 gm/ Sodium Chloride 50 ml @ 100 mls/hr QHS 02/28/17 23:30 03/01/17 21:56 100 MLS/HR Citalopram Hydrobromide (CeleXA) 20 mg DAILY 03/01/17 09:00 03/01/17 08:06 20 MG Clopidogrel Bisulfate (Plavix) 75 mg DAILY07 03/01/17 07:00 03/01/17 06:29 75 MG Darbepoetin Jace (Aranesp) 100 mcg WEEKLY 03/07/17 09:00 Dexamethasone (Maxidex) 1 drop Q4HRS 02/28/17 20:00 03/02/17 12:38 1 DROP Dextrose (Dextrose 50%-Water Syringe) 12.5 gm PRN Q15MIN PRN 03/01/17 03:00 Diclofenac Sodium (Voltaren) 1 ayaz BID 02/28/17 21:00 03/01/17 21:56 1 AYAZ Diphenhydramine HCl (Benadryl) 25 mg 1X PRN PRN 03/01/17 12:15 03/02/17 12:14 DC Docusate Sodium (Colace) 100 mg PRN DAILY PRN 02/28/17 19:45 Ergocalciferol (Vitamin D2) 50,000 unit WEEKLY 03/07/17 09:00 Famotidine (Pepcid) 20 mg HS 02/28/17 21:00 03/01/17 21:54 20 MG Fentanyl Citrate (Fentanyl 2ml Vial) 50 mcg PRN Q5MIN PRN 03/02/17 07:00 03/02/17 23:00 Hydralazine HCl (Apresoline) 10 mg PRN Q4HRS PRN 02/28/17 19:45 Hydromorphone HCl (Dilaudid) 0.5 mg PRN Q10MIN PRN 03/02/17 07:00 03/02/17 23:00 Info (PHARMACY MONITORING -- do not chart) 1 each PRN DAILY PRN 03/01/17 12:15 Insulin Aspart (NovoLOG) 0-9 UNITS TIDWMEALS 03/01/17 08:00 03/02/17 08:50 3 UNITS Isosorbide Mononitrate (Imdur) 30 mg DAILY 03/01/17 09:00 03/02/17 10:32 30 MG Ketorolac Tromethamine (Acular) 1 drop QID 02/28/17 21:00 03/02/17 12:38 1 DROP Levetiracetam (Keppra) 500 mg BID 02/28/17 21:00 03/01/17 21:55 500 MG Levothyroxine Sodium (Synthroid) 175 mcg DAILY07 03/01/17 07:00 03/01/17 06:28 175 MCG Lidocaine (Lidoderm) 1 patch DAILY 03/01/17 09:00 Lidocaine HCl 2 ml PRN 1X PRN 03/02/17 07:00 03/02/17 23:00 Lidocaine HCl (Xylocaine-Mpf 1% Vial) 0.5 ml 1X STAT 03/01/17 13:54 03/01/17 13:56 DC 03/01/17 14:31 0.5 ML Metoprolol Tartrate (Lopressor) 50 mg BID 02/28/17 21:00 03/02/17 10:32 50 MG Morphine Sulfate 1 mg PRN Q10MIN PRN 03/02/17 07:00 03/02/17 23:00 Morphine Sulfate (Ms Contin) 30 mg TID 02/28/17 21:00 03/01/17 21:56 30 MG Moxifloxacin HCl (Vigamox) 1 drop TID 02/28/17 21:00 03/02/17 08:44 1 DROP Nitroglycerin (Nitrostat) 0.4 mg PRN Q5MIN PRN 02/28/17 19:45 Non-Formulary Medication 1 drop Q1HR 02/28/17 20:00 UNV Ondansetron HCl (Zofran) 4 mg PRN Q6HRS PRN 02/28/17 19:45 03/02/17 08:35 4 MG Prochlorperazine Edisylate (Compazine) 5 mg PACU PRN PRN 03/02/17 07:00 03/02/17 23:00 Risperidone (RisperDAL) 0.5 mg QHS 02/28/17 21:00 03/01/17 21:55 0.5 MG Sodium Chloride 1,000 ml @ 0 mls/hr Q0M 03/02/17 13:45 Sucralfate (Carafate) 1 gm BID 02/28/17 21:00 03/01/17 21:54 1 GM Tramadol HCl (Ultram) 50 mg PRN Q6HRS PRN 02/28/17 19:45 Trazodone HCl (Desyrel) 25 mg QHS 02/28/17 21:00 03/01/17 21:56 25 MG Vancomycin HCl (Vanco Per Pharmacy) 1 each PRN DAILY PRN 02/28/17 20:00 03/02/17 10:33 1 EACH Vancomycin HCl 1.25 gm/Sodium Chloride 250 ml @ 167 mls/hr Q48H 03/02/17 23:00 03/02/17 23:00 DC Vancomycin HCl 500 mg/Sodium Chloride 100 ml @ 100 mls/hr QTUTHSA 03/03/17 16:00 Vancomycin HCl 2 gm/Sodium Chloride 500 ml @ 250 mls/hr 1X ONCE 02/28/17 23:30 03/01/17 01:29 DC 02/28/17 23:30 250 MLS/HR Vitamin B Complex/ Vitamin C (Fernanda-Jimmy) 1 tab DAILY 03/01/17 09:00 03/01/17 08:05 1 TAB Warfarin Sodium (Coumadin Per Physician) 1 each PRN DAILY PRN 02/28/17 20:00 03/02/17 10:30 1 EACH Warfarin Sodium (Coumadin) 5 mg DAILY16 03/01/17 16:00 03/01/17 19:03 5 MG Lab Laboratory Tests Test 03/01/17 18:13 03/01/17 20:43 03/02/17 03:39 03/02/17 07:34 Glucose (Fingerstick) 184 mg/dL (70-99) 248 mg/dL (70-99) 218 mg/dL (70-99) Random Vancomycin Level 15.2 mcg/mL Test 03/02/17 10:57 Glucose (Fingerstick) 202 mg/dL (70-99) MYRON LIANG MD Mar 02, 2017 13:55
[2017-03-02] MEDS ORDERED: MAGNESIUM SULFATE 2GM 50 ML IV PRN (14:00)
[2017-03-02] MEDS ORDERED: ONDANSETRON PF 4 MG/2 ML VIAL. ONE (15:08)
[2017-03-02] MEDS ORDERED: FAMOTIDINE 20 MG/2 ML VIAL ONE (15:08)
[2017-03-02] MEDS ORDERED: LIDOCAINE 2% PF Vial for OR 5 ML VIAL. ONE (15:08)
[2017-03-02] MEDS ORDERED: PROPOFOL 20 ML IV ONE (15:08)
[2017-03-02] MEDS ORDERED: ROCURONIUM 50 MG/5 ML VIAL. ONE (15:45)
[2017-03-02] MEDS ORDERED: fentaNYL PF VIAL 100 MCG/2 ML VIAL ONE (15:45)
[2017-03-02] MEDS ORDERED: CLINDAMYCIN 600MG PREMIX 0 ML IV ONE (15:48)
[2017-03-02] MEDS: WARFARIN 5 MG TABLET. PO SCH (16:00)
[2017-03-02] MEDS ORDERED: CLINDAMYCIN 900MG PREMIX 50 ML IV ONE (17:00)
--- NOTE | 2017-03-02 17:06 | PDOC4 ---
Operative Note Operative Note Date of Procedure: March 02, 2017 Pre-Op Diagnosis: Osteomyelitis left foot Post-Op Diagnosis: Osteomyelitis left foot Procedure: Amputation, left foot, transmetatarsal CPT code 91003 Surgeon: Marsha Jamison MD Brand Lead: Corinne Diaz PA-C Anesthesia: General EBL: 50 mL Specimens Obtained: Left foot and toes Complications: none Drains: none Indications for Procedure: The patient is a 51-year-old man with severe diabetes , renal failure, and previous left toe amputations. He has a plantar ulcer, involving the first metatarsal, and evidence of osteomyelitis by MRI. I recommended a transmetatarsal amputation. The patient and I discussed the risks , benefits and alternatives of surgery. I discussed that there are potential risks of infection, bleeding, scarring, difficulty with a prosthesis, or less likely wound breakdown and need for more proximal amputation at the below knee amputation level. All of his questions about surgery were answered and he desired to proceed. Written consent was obtained. Procedure in Detail: The patient was identified in the preoperative holding area. The correct left lower extremity was marked by me. The patient was taken to the operating room where general anesthesia was used. The patient was positioned supine on the operating table. Preoperative antibiotics were given intravenously. A timeout procedure was performed. A tourniquet was placed on the upper thigh. Due to his iodine allergy, Dial soap was used for thorough scrub and cleansing of the skin from the knee to the remaining toes. ChloraPrep solution was used on the skin but not used in the open wound. Sterile drapes were applied. The limb was elevated to exsanguinate it and the tourniquet was inflated to 350 mmHg. Skin flaps were outlined on the skin using a skin marker, avoiding the plantar ulcer, and creating a variation of a plantar flap transmetatarsal amputation using some of the dorsal skin over the first metatarsal due to the soft tissue loss. Sharp dissection was used with a 10 blade scalpel, through the skin and subcutaneous continues tissues, down to the level of the metatarsal bones. Subperiosteal dissection was performed. The osteotomies were planned along the outer tarsals, trying to re-create the normal arch of the toes, shortest most medial and lateral, and longer at the second toe. An oscillating saw was used to perform the osteotomies. The plantar flap was now dissected carefully subperiosteally, and the specimen was removed including the remaining toes. Thorough irrigation with saline was performed. The bone edges were trimmed with a double-action rongeur, smoothing the prominent bone and avoiding any prominent areas under the skin flaps. The tourniquet was released. Bovie electrocautery was used for hemostasis. There appears to be adequate bleeding to heal the flaps. Copious irrigation was used again. The flaps were now reapproximated, and trimmed as needed, to close the amputation. 2-0 Monocryl was used in the deep subcutaneous tissues. 2-0 and #2 nylon were used in the skin to reapproximate the skin in a horizontal mattress fashion, with everted skin and a low tension fully approximated incisional closure. No drain was required. I then had Corinne apply a Prevena dressing. Needle and sponge counts were correct. There were no apparent competitions. MARSHA JAMISON MD Mar 02, 2017 17:06
[2017-03-02] MEDS ORDERED: POLYETHYLENE GLYCOL 3350 17 GM PACKET. PO PRN (17:30)
[2017-03-02] MEDS ORDERED: HYDROcodone/APAP 7.5/325MG 1 TAB TABLET PO PRN ×2 (17:30)
[2017-03-02] MEDS ORDERED: oxyCODONE IR 5 MG TABLET PO PRN (17:30)
[2017-03-02] MEDS ORDERED: DEXTROSE 50% 25 GM / 50ML DISP.SYRIN. IV PRN (17:30)
[2017-03-02] MEDS ORDERED: DEXAMETHASONE SOD PHOS 20 MG/5 ML VIAL. ONE (17:32)
[2017-03-02] MEDS ORDERED: PHENYLEPHRINE in 0.9% NACL PF 1 MG/10 ML DISP.SYRIN. IV ONE (17:32)
[2017-03-02] MEDS ORDERED: SEVOFLURANE 61 TO 120 MINUTES. IH ONE (17:32)
[2017-03-02] MEDS: ATORVASTATIN CALCIUM 40 MG TABLET. PO SCH (20:59)
[2017-03-02] MEDS: risperiDONE 0.25 MG TABLET. PO SCH (20:59)
[2017-03-02] MEDS: traZODone 50 MG TABLET. PO SCH (20:59)
[2017-03-02] MEDS: FAMOTIDINE 20 MG TABLET. PO SCH (21:00)
[2017-03-02] MEDS: CEFEPIME HCL 1 GM in IV NORMAL SALINE 50ML 50 ML IV SCH (21:01)
[2017-03-02] MEDS: MORPHINE SULFATE 4 MG/ML DISP.SYRIN. IV PRN (21:18)
[2017-03-02] MEDS ORDERED: CLINDAMYCIN 600MG PREMIX 50 ML IV SCH (22:30)
[2017-03-02] MEDS ORDERED: VANCOMYCIN 1.25 GM in IV NORMAL SALINE 250ML 250 ML IV SCH (23:00)
[2017-03-03] MEDS: DEXAMETHASONE 0.1% OPHTH SOLUTION 5ML BOTTLE. OS SCH ×6 (00:17→22:41)
[2017-03-03] MEDS: MORPHINE SULFATE 4 MG/ML DISP.SYRIN. IV PRN ×7 (00:21→22:48)
[2017-03-03] MEDS: VANCOMYCIN PER PHARMACY MC PRN ×2 (02:57→13:32)
[2017-03-03 03:00] VITALS: BP 123/70
[2017-03-03] MEDS ORDERED: MAGNESIUM HYDROXIDE 2,400 MG/30 ML ORAL.SUSP. PO PRN (06:00)
[2017-03-03] MEDS: LEVOTHYROXINE 175 MCG TABLET PO SCH (06:34)
[2017-03-03] MEDS: CLOPIDOGREL BISULFATE 75 MG TABLET PO SCH (06:34)
[2017-03-03 07:00] VITALS: BP 149/82
[2017-03-03] MEDS ORDERED: ASPIRIN ENTERIC COATED 81 MG TABLET.DR. PO SCH (08:00)
[2017-03-03] MEDS ORDERED: LIDOCAINE 1% PF 2 ML VIAL. ID STA (08:05)
[2017-03-03] MEDS ORDERED: IV NORMAL SALINE 1000ML BAG 1,000 ML IV PRN ×2 (08:08)
[2017-03-03] MEDS ORDERED: diphenhydrAMINE 50 MG/ML VIAL IV PRN ×2 (08:15)
[2017-03-03] MEDS ORDERED: DIALYSIS PATIENT. MC PRN ×2 (08:15)
[2017-03-03] MEDS: INSULIN ASPART 300 UNITS/3 ML INSULN.PEN SQ SCH ×3 (08:18→18:00)
[2017-03-03] MEDS: MORPHINE ER 30 MG TABLET.ER PO SCH ×3 (08:30→22:43)
[2017-03-03 08:54] LABS: BASO % 1 % (0-3); EOS % 0 % (0-3); HEMATOCRIT 35.3 % (39.0-53.0); HEMOGLOBIN 11.4 g/dL (13.0-17.5); LYMPH # 0.8 x10^3/uL (1.0-4.8); LYMPH % 13 % (24-48); MEAN CORPUSCULAR HEMOGLOBIN 31 pg (25-35); MEAN CORPUSCULAR HGB CONC 32 g/dL (31-37); MEAN CORPUSCULAR VOLUME 95 fL (79-100); MONO % 10 % (0-9); NEUT % 76 % (31-73); PLATELET COUNT 148 x10^3/uL (140-400); RED BLOOD COUNT 3.72 x10^6/uL (4.30-5.70); RED CELL DISTRIBUTION WIDTH 15.4 % (11.5-14.5)
[2017-03-03] MEDS: MOXIFLOXACIN 0.5% OPHTH SOLUTION 3ML BOTTLE. OU SCH ×3 (09:00→22:41)
[2017-03-03] MEDS: LIDOCAINE (700MG/PATCH) PATCH. TD SCH (09:00)
[2017-03-03] MEDS: SUCRALFATE 1 GM TABLET. PO SCH ×2 (09:00→22:42)
[2017-03-03] MEDS: CALCIUM CARBONATE 500 MG TABLET PO SCH ×3 (09:00→16:30)
[2017-03-03] MEDS: KETOROLAC TROMETHAMINE 0.5% OPHTH SOLUTION 3ML BOTTLE. OS SCH ×4 (09:00→22:41)
[2017-03-03 09:07] LABS: ALBUMIN 3.3 g/dL (3.4-5.0); CALCIUM 7.4 mg/dL (8.5-10.1); CREATININE 7.6 mg/dL (0.7-1.3); GFR 9.2; PHOSPHORUS 8.2 mg/dL (2.6-4.7); POTASSIUM 5.4 mmol/L (3.5-5.1)
[2017-03-03 09:08] LABS: INR 1.1 (0.8-1.1); PROTHROMBIN TIME PATIENT 13.7 SEC (11.7-14.0)
--- NOTE | 2017-03-03 09:21 | PDOC ---
Dialysis Progress Note Dialysis Note Dialysis Note Seen on Hemodialysis, tolerating treatment Well Vitals on Hemodialysis: 122/75 87 afeb General Appearance: Awake: Alert Oriented x 3 Neck: No JVD or JVP Chest: CTA Antonio Heart: S1 S2 Abdomen - Soft NTND Extremities - No Edema ESRD: Dialysis as below F 180 NR 4. 5 Hrs 2 K 2.5 Ca 140 Na 35 HC03 Qb 350 + Qd 500+ Heparin . Units Uf 2-3 Kgs or to dry weight as tolerated May give 25-50 gms of 25% Albumin if needed to maintain Hemodynamic stability Treatment plan reviewed and discussed with well digger Vitals Vital Signs Vital Signs Date Time Temp Pulse Resp B/P (MAP) Pulse Ox O2 Delivery O2 Flow Rate FiO2 03/03/17 08:30 20 Room Air 03/03/17 07:00 98.1 86 149/82 (104) 95 98.1 03/02/17 20:00 2.0 Labs Last Labs Laboratory Tests Test 03/01/17 11:12 03/01/17 18:13 03/01/17 20:43 03/02/17 03:39 Glucose (Fingerstick) 188 mg/dL (70-99) 184 mg/dL (70-99) 248 mg/dL (70-99) Random Vancomycin Level 15.2 mcg/mL Test 03/02/17 07:34 03/02/17 10:57 03/02/17 15:06 03/02/17 17:21 Glucose (Fingerstick) 218 mg/dL (70-99) 202 mg/dL (70-99) 176 mg/dL (70-99) 179 mg/dL (70-99) Test 03/02/17 20:27 03/03/17 07:36 03/03/17 08:24 Glucose (Fingerstick) 216 mg/dL (70-99) 236 mg/dL (70-99) White Blood Count 6.0 x10^3/uL (4.0-11.0) Red Blood Count 3.72 x10^6/uL (4.30-5.70) Hemoglobin 11.4 g/dL (13.0-17.5) Hematocrit 35.3 % (39.0-53.0) Mean Corpuscular Volume 95 fL (79-100) Mean Corpuscular Hemoglobin 31 pg (25-35) Mean Corpuscular Hemoglobin Concent 32 g/dL (31-37) Red Cell Distribution Width 15.4 % (11.5-14.5) Platelet Count 148 x10^3/uL (140-400) Neutrophils (%) (Auto) 76 % (31-73) Lymphocytes (%) (Auto) 13 % (24-48) Monocytes (%) (Auto) 10 % (0-9) Eosinophils (%) (Auto) 0 % (0-3) Basophils (%) (Auto) 1 % (0-3) Neutrophils # (Auto) 4.6 x10^3uL (1.8-7.7) Lymphocytes # (Auto) 0.8 x10^3/uL (1.0-4.8) Monocytes # (Auto) 0.6 x10^3/uL (0.0-1.1) Eosinophils # (Auto) 0.0 x10^3/uL (0.0-0.7) Basophils # (Auto) 0.0 x10^3/uL (0.0-0.2) Prothrombin Time 13.7 SEC (11.7-14.0) Prothromb Time International Ratio 1.1 (0.8-1.1) Sodium Level 136 mmol/L (136-145) Potassium Level 5.4 mmol/L (3.5-5.1) Chloride Level 97 mmol/L (98-107) Carbon Dioxide Level 25 mmol/L (21-32) Anion Gap 14 (6-14) Blood Urea Nitrogen 62 mg/dL (8-26) Creatinine 7.6 mg/dL (0.7-1.3) Estimated GFR (Cockcroft-Gault) 9.2 Glucose Level 218 mg/dL (70-99) Calcium Level 7.4 mg/dL (8.5-10.1) Phosphorus Level 8.2 mg/dL (2.6-4.7) Magnesium Level 2.0 mg/dL (1.8-2.4) Albumin 3.3 g/dL (3.4-5.0) Laboratory Tests Test 03/02/17 10:57 03/02/17 15:06 03/02/17 17:21 03/02/17 20:27 Glucose (Fingerstick) 202 mg/dL (70-99) 176 mg/dL (70-99) 179 mg/dL (70-99) 216 mg/dL (70-99) Test 03/03/17 07:36 03/03/17 08:24 Glucose (Fingerstick) 236 mg/dL (70-99) White Blood Count 6.0 x10^3/uL (4.0-11.0) Red Blood Count 3.72 x10^6/uL (4.30-5.70) Hemoglobin 11.4 g/dL (13.0-17.5) Hematocrit 35.3 % (39.0-53.0) Mean Corpuscular Volume 95 fL (79-100) Mean Corpuscular Hemoglobin 31 pg (25-35) Mean Corpuscular Hemoglobin Concent 32 g/dL (31-37) Red Cell Distribution Width 15.4 % (11.5-14.5) Platelet Count 148 x10^3/uL (140-400) Neutrophils (%) (Auto) 76 % (31-73) Lymphocytes (%) (Auto) 13 % (24-48) Monocytes (%) (Auto) 10 % (0-9) Eosinophils (%) (Auto) 0 % (0-3) Basophils (%) (Auto) 1 % (0-3) Neutrophils # (Auto) 4.6 x10^3uL (1.8-7.7) Lymphocytes # (Auto) 0.8 x10^3/uL (1.0-4.8) Monocytes # (Auto) 0.6 x10^3/uL (0.0-1.1) Eosinophils # (Auto) 0.0 x10^3/uL (0.0-0.7) Basophils # (Auto) 0.0 x10^3/uL (0.0-0.2) Prothrombin Time 13.7 SEC (11.7-14.0) Prothromb Time International Ratio 1.1 (0.8-1.1) Sodium Level 136 mmol/L (136-145) Potassium Level 5.4 mmol/L (3.5-5.1) Chloride Level 97 mmol/L (98-107) Carbon Dioxide Level 25 mmol/L (21-32) Anion Gap 14 (6-14) Blood Urea Nitrogen 62 mg/dL (8-26) Creatinine 7.6 mg/dL (0.7-1.3) Estimated GFR (Cockcroft-Gault) 9.2 Glucose Level 218 mg/dL (70-99) Calcium Level 7.4 mg/dL (8.5-10.1) Phosphorus Level 8.2 mg/dL (2.6-4.7) Magnesium Level 2.0 mg/dL (1.8-2.4) Albumin 3.3 g/dL (3.4-5.0) Assessment Assessment Problems Medical Problems: (1) End stage renal disease Status: Acute (2) Foot ulcer, left Status: Acute Problems: Plan Plan of Care Problems Medical Problems: (1) End stage renal disease Status: Acute (2) Foot ulcer, left Status: Acute MYRON LIANG MD Mar 03, 2017 09:21
--- NOTE | 2017-03-03 10:14 | PDOC ---
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 Jamison pt seen on HD, feeling well in good mood IV [facility] following has hangar boot for mobility, try PT and OT Vitals Vitals Vital Signs Date Time Temp Pulse Resp B/P (MAP) Pulse Ox O2 Delivery O2 Flow Rate FiO2 03/03/17 08:30 20 Room Air 03/03/17 07:00 98.1 86 149/82 (104) 95 98.1 03/02/17 20:00 2.0 Physical Exam General: Alert, Oriented X3, Cooperative Heart: Regular rate, Normal S1 Lungs: Clear Abdomen: Normal bowel sounds, Soft Extremities: No clubbing, No cyanosis Labs LABS Laboratory Tests Test 03/02/17 10:57 03/02/17 15:06 03/02/17 17:21 03/02/17 20:27 Glucose (Fingerstick) 202 mg/dL (70-99) 176 mg/dL (70-99) 179 mg/dL (70-99) 216 mg/dL (70-99) Test 03/03/17 07:36 03/03/17 08:24 Glucose (Fingerstick) 236 mg/dL (70-99) White Blood Count 6.0 x10^3/uL (4.0-11.0) Red Blood Count 3.72 x10^6/uL (4.30-5.70) Hemoglobin 11.4 g/dL (13.0-17.5) Hematocrit 35.3 % (39.0-53.0) Mean Corpuscular Volume 95 fL (79-100) Mean Corpuscular Hemoglobin 31 pg (25-35) Mean Corpuscular Hemoglobin Concent 32 g/dL (31-37) Red Cell Distribution Width 15.4 % (11.5-14.5) Platelet Count 148 x10^3/uL (140-400) Neutrophils (%) (Auto) 76 % (31-73) Lymphocytes (%) (Auto) 13 % (24-48) Monocytes (%) (Auto) 10 % (0-9) Eosinophils (%) (Auto) 0 % (0-3) Basophils (%) (Auto) 1 % (0-3) Neutrophils # (Auto) 4.6 x10^3uL (1.8-7.7) Lymphocytes # (Auto) 0.8 x10^3/uL (1.0-4.8) Monocytes # (Auto) 0.6 x10^3/uL (0.0-1.1) Eosinophils # (Auto) 0.0 x10^3/uL (0.0-0.7) Basophils # (Auto) 0.0 x10^3/uL (0.0-0.2) Prothrombin Time 13.7 SEC (11.7-14.0) Prothromb Time International Ratio 1.1 (0.8-1.1) Sodium Level 136 mmol/L (136-145) Potassium Level 5.4 mmol/L (3.5-5.1) Chloride Level 97 mmol/L (98-107) Carbon Dioxide Level 25 mmol/L (21-32) Anion Gap 14 (6-14) Blood Urea Nitrogen 62 mg/dL (8-26) Creatinine 7.6 mg/dL (0.7-1.3) Estimated GFR (Cockcroft-Gault) 9.2 Glucose Level 218 mg/dL (70-99) Calcium Level 7.4 mg/dL (8.5-10.1) Phosphorus Level 8.2 mg/dL (2.6-4.7) Magnesium Level 2.0 mg/dL (1.8-2.4) Albumin 3.3 g/dL (3.4-5.0) Assessment and Plan Assessmemt and Plan Problems Medical Problems: (1) End stage renal disease Status: Acute (2) Foot ulcer, left Status: Acute Problems: Comment Review of Relevant I have reviewed the following items lila (where applicable) has been applied. Labs Laboratory Tests Test 03/01/17 11:12 03/01/17 18:13 03/01/17 20:43 03/02/17 03:39 Glucose (Fingerstick) 188 mg/dL (70-99) 184 mg/dL (70-99) 248 mg/dL (70-99) Random Vancomycin Level 15.2 mcg/mL Test 03/02/17 07:34 03/02/17 10:57 03/02/17 15:06 03/02/17 17:21 Glucose (Fingerstick) 218 mg/dL (70-99) 202 mg/dL (70-99) 176 mg/dL (70-99) 179 mg/dL (70-99) Test 03/02/17 20:27 03/03/17 07:36 03/03/17 08:24 Glucose (Fingerstick) 216 mg/dL (70-99) 236 mg/dL (70-99) White Blood Count 6.0 x10^3/uL (4.0-11.0) Red Blood Count 3.72 x10^6/uL (4.30-5.70) Hemoglobin 11.4 g/dL (13.0-17.5) Hematocrit 35.3 % (39.0-53.0) Mean Corpuscular Volume 95 fL (79-100) Mean Corpuscular Hemoglobin 31 pg (25-35) Mean Corpuscular Hemoglobin Concent 32 g/dL (31-37) Red Cell Distribution Width 15.4 % (11.5-14.5) Platelet Count 148 x10^3/uL (140-400) Neutrophils (%) (Auto) 76 % (31-73) Lymphocytes (%) (Auto) 13 % (24-48) Monocytes (%) (Auto) 10 % (0-9) Eosinophils (%) (Auto) 0 % (0-3) Basophils (%) (Auto) 1 % (0-3) Neutrophils # (Auto) 4.6 x10^3uL (1.8-7.7) Lymphocytes # (Auto) 0.8 x10^3/uL (1.0-4.8) Monocytes # (Auto) 0.6 x10^3/uL (0.0-1.1) Eosinophils # (Auto) 0.0 x10^3/uL (0.0-0.7) Basophils # (Auto) 0.0 x10^3/uL (0.0-0.2) Prothrombin Time 13.7 SEC (11.7-14.0) Prothromb Time International Ratio 1.1 (0.8-1.1) Sodium Level 136 mmol/L (136-145) Potassium Level 5.4 mmol/L (3.5-5.1) Chloride Level 97 mmol/L (98-107) Carbon Dioxide Level 25 mmol/L (21-32) Anion Gap 14 (6-14) Blood Urea Nitrogen 62 mg/dL (8-26) Creatinine 7.6 mg/dL (0.7-1.3) Estimated GFR (Cockcroft-Gault) 9.2 Glucose Level 218 mg/dL (70-99) Calcium Level 7.4 mg/dL (8.5-10.1) Phosphorus Level 8.2 mg/dL (2.6-4.7) Magnesium Level 2.0 mg/dL (1.8-2.4) Albumin 3.3 g/dL (3.4-5.0) Laboratory Tests Test 03/02/17 10:57 03/02/17 15:06 03/02/17 17:21 03/02/17 20:27 Glucose (Fingerstick) 202 mg/dL (70-99) 176 mg/dL (70-99) 179 mg/dL (70-99) 216 mg/dL (70-99) Test 03/03/17 07:36 03/03/17 08:24 Glucose (Fingerstick) 236 mg/dL (70-99) White Blood Count 6.0 x10^3/uL (4.0-11.0) Red Blood Count 3.72 x10^6/uL (4.30-5.70) Hemoglobin 11.4 g/dL (13.0-17.5) Hematocrit 35.3 % (39.0-53.0) Mean Corpuscular Volume 95 fL (79-100) Mean Corpuscular Hemoglobin 31 pg (25-35) Mean Corpuscular Hemoglobin Concent 32 g/dL (31-37) Red Cell Distribution Width 15.4 % (11.5-14.5) Platelet Count 148 x10^3/uL (140-400) Neutrophils (%) (Auto) 76 % (31-73) Lymphocytes (%) (Auto) 13 % (24-48) Monocytes (%) (Auto) 10 % (0-9) Eosinophils (%) (Auto) 0 % (0-3) Basophils (%) (Auto) 1 % (0-3) Neutrophils # (Auto) 4.6 x10^3uL (1.8-7.7) Lymphocytes # (Auto) 0.8 x10^3/uL (1.0-4.8) Monocytes # (Auto) 0.6 x10^3/uL (0.0-1.1) Eosinophils # (Auto) 0.0 x10^3/uL (0.0-0.7) Basophils # (Auto) 0.0 x10^3/uL (0.0-0.2) Prothrombin Time 13.7 SEC (11.7-14.0) Prothromb Time International Ratio 1.1 (0.8-1.1) Sodium Level 136 mmol/L (136-145) Potassium Level 5.4 mmol/L (3.5-5.1) Chloride Level 97 mmol/L (98-107) Carbon Dioxide Level 25 mmol/L (21-32) Anion Gap 14 (6-14) Blood Urea Nitrogen 62 mg/dL (8-26) Creatinine 7.6 mg/dL (0.7-1.3) Estimated GFR (Cockcroft-Gault) 9.2 Glucose Level 218 mg/dL (70-99) Calcium Level 7.4 mg/dL (8.5-10.1) Phosphorus Level 8.2 mg/dL (2.6-4.7) Magnesium Level 2.0 mg/dL (1.8-2.4) Albumin 3.3 g/dL (3.4-5.0) Microbiology 02/28/17 Blood Culture - Preliminary, Resulted NO GROWTH AFTER 2 DAYS 02/28/17 Gram Stain - Final, Complete Medications Current Medications Morphine Sulfate 4 mg PRN Q15MIN PRN IV/SQ PAIN GREATER THAN 3/10 Last administered on 02/28/17 19:05; Start 02/28/17 at 18:00; Stop 03/01/17 at 17:59 ; Status DC Morphine Sulfate 4 mg PRN Q2HR PRN IV PAIN Last administered on 03/01/17 19:08 ; Start 02/28/17 at 19:15; Stop 03/01/17 at 19:14; Status DC Citalopram Hydrobromide (CeleXA) 20 mg DAILY PO Last administered on 03/01/17 08:06; Start 03/01/17 at 09:00 Clopidogrel Bisulfate (Plavix) 75 mg DAILY07 PO Last administered on 03/03/17 06:34; Start 03/01/17 at 07:00 Darbepoetin Jace (Aranesp) 100 mcg WEEKLY SQ ; Start 03/07/17 at 09:00 Dexamethasone (Maxidex) 1 drop Q4HRS OS Last administered on 03/03/17 08:16; Start 02/28/17 at 20:00 Diclofenac Sodium (Voltaren) 1 ayaz BID TP Last administered on 03/02/17 20:58 ; Start 02/28/17 at 21:00 Ergocalciferol (Vitamin D2) 50,000 unit WEEKLY PO ; Start 03/07/17 at 09:00 Famotidine (Pepcid) 20 mg HS PO Last administered on 03/02/17 21:00; Start at 21:00 Vitamin B Complex/ Vitamin C (Fernanda-Jimmy) 1 tab DAILY PO Last administered on 08:05; Start 03/01/17 at 09:00 Isosorbide Mononitrate (Imdur) 30 mg DAILY PO Last administered on 03/02/17 10 :32; Start 03/01/17 at 09:00 Ketorolac Tromethamine (Acular) 1 drop QID OS Last administered on 03/02/17 21 :01; Start 02/28/17 at 21:00 Levetiracetam (Keppra) 500 mg BID PO Last administered on 03/02/17 21:00; Start 02/28/17 at 21:00 Levothyroxine Sodium (Synthroid) 175 mcg DAILY07 PO Last administered on 06:34; Start 03/01/17 at 07:00 Lidocaine (Lidoderm) 1 patch DAILY TD ; Start 03/01/17 at 09:00 Metoprolol Tartrate (Lopressor) 50 mg BID PO Last administered on 03/02/17 20: 59; Start 02/28/17 at 21:00 Morphine Sulfate (Ms Contin) 30 mg TID PO Last administered on 03/03/17 08:30 ; Start 02/28/17 at 21:00 Moxifloxacin HCl (Vigamox) 1 drop TID OU Last administered on 03/02/17 21:00; Start 02/28/17 at 21:00 Nitroglycerin (Nitrostat) 0.4 mg PRN Q5MIN PRN SL CHEST PAIN; Start 02/28/17 at 19:45 Sucralfate (Carafate) 1 gm BID PO Last administered on 03/02/17 20:59; Start 02/28/17 at 21:00 Trazodone HCl (Desyrel) 25 mg QHS PO Last administered on 03/02/17 20:59; Start 02/28/17 at 21:00 Warfarin Sodium (Coumadin) 5 mg DAILY16 PO ; Start 03/01/17 at 16:00; Stop 03/01 at 16:00; Status DC Albuterol Sulfate (Ventolin Neb Soln) 2.5 mg PRN Q4HRS PRN NEB SHORTNESS OF BREATH; Start 02/28/17 at 20:00 Atorvastatin Calcium (Lipitor) 80 mg QHS PO Last administered on 03/02/17 20: 59; Start 02/28/17 at 21:00 Non-Formulary Medication 5 ml DAILY LEFTEYE ; Start 03/01/17 at 09:00; Status UNV Calcium Carbonate/ Glycine (Oscal) 2,000 mg TID PO Last administered on 21:00; Start 03/01/17 at 09:00; Stop 03/03/17 at 09:21; Status DC Non-Formulary Medication 1 drop Q1HR OS ; Start 02/28/17 at 20:00; Status UNV Risperidone (RisperDAL) 0.5 mg QHS PO Last administered on 03/02/17 20:59; Start 02/28/17 at 21:00 Acetaminophen (Tylenol) 650 mg PRN Q6HRS PRN PO FEVER; Start 02/28/17 at 19:45 Ondansetron HCl (Zofran) 4 mg PRN Q6HRS PRN IV NAUSEA/VOMITING Last administered on 03/02/17 08:35; Start 02/28/17 at 19:45; Stop 03/02/17 at 17:27 ; Status DC Morphine Sulfate 2 mg PRN Q2HR PRN IV PAIN Last administered on 03/02/17 12:39 ; Start 02/28/17 at 19:45; Stop 03/02/17 at 17:27; Status DC Tramadol HCl (Ultram) 50 mg PRN Q6HRS PRN PO PAIN; Start 02/28/17 at 19:45 Hydralazine HCl (Apresoline) 10 mg PRN Q4HRS PRN IVP ELEVATED BP, SEE COMMENTS ; Start 02/28/17 at 19:45 Docusate Sodium (Colace) 100 mg PRN DAILY PRN PO CONSTIPATION; Start 02/28/17 at 19:45 Vancomycin HCl 2 gm/Sodium Chloride 500 ml @ 250 mls/hr 1X ONCE IV ; Start at 20:30; Stop 02/28/17 at 22:29; Status Cancel Vancomycin HCl (Vanco Per Pharmacy) 1 each PRN DAILY PRN MC SEE COMMENTS Last administered on 03/03/17 02:57; Start 02/28/17 at 20:00 Cefepime HCl 1 gm/ Sodium Chloride 50 ml @ 100 mls/hr Q12HR IV ; Start at 20:30; Status Cancel Warfarin Sodium (Coumadin Per Physician) 1 each PRN DAILY PRN MC SEE COMMENTS Last administered on 03/02/17 10:30; Start 02/28/17 at 20:00 Vancomycin HCl 1.25 gm/Sodium Chloride 250 ml @ 167 mls/hr Q48H IV ; Start at 23:00; Stop 03/02/17 at 23:00; Status DC Vancomycin HCl 1 each 1X ONCE MC ; Start 03/04/17 at 22:30; Stop 03/04/17 at 22 :30; Status DC Cefepime HCl 1 gm/ Sodium Chloride 50 ml @ 100 mls/hr QHS IV Last administered on 03/02/17 21:01; Start 02/28/17 at 23:30 Vancomycin HCl 2 gm/Sodium Chloride 500 ml @ 250 mls/hr 1X ONCE IV Last administered on 02/28/17 23:30; Start 02/28/17 at 23:30; Stop 03/01/17 at 01:29 ; Status DC Insulin Aspart (NovoLOG) 0-9 UNITS TIDWMEALS SQ Last administered on 03/03/17 08:18; Start 03/01/17 at 08:00 Dextrose (Dextrose 50%-Water Syringe) 12.5 gm PRN Q15MIN PRN IV SEE COMMENTS; Start 03/01/17 at 03:00; Status Cancel Vancomycin HCl 1 each 1X ONCE MC Last administered on 03/02/17 05:00; Start 03/02/17 at 05:00; Stop 03/02/17 at 05:01; Status DC Sodium Chloride 1,000 ml @ 1,000 mls/hr Q1H PRN IV hypotension; Start 03/01/17 at 12:02; Stop 03/01/17 at 18:01; Status DC Diphenhydramine HCl (Benadryl) 25 mg 1X PRN PRN IV ITCHING; Start 03/01/17 at 12:15; Stop 03/02/17 at 12:14; Status DC Diphenhydramine HCl (Benadryl) 25 mg 1X PRN PRN IV ITCHING; Start 03/01/17 at 12:15; Stop 03/02/17 at 12:14; Status DC Sodium Chloride 1,000 ml @ 400 mls/hr Q2H30M PRN IV PATENCY; Start 03/01/17 at 12:02; Stop 03/02/17 at 00:01; Status DC Info (PHARMACY MONITORING -- do not chart) 1 each PRN DAILY PRN MC SEE COMMENTS ; Start 03/01/17 at 12:15 Warfarin Sodium (Coumadin) 7.5 mg 1X WARF ONCE PO ; Start 03/01/17 at 16:00; Stop 03/01/17 at 16:01; Status Cancel Warfarin Sodium (Coumadin) 5 mg DAILY16 PO Last administered on 03/01/17 19:03 ; Start 03/01/17 at 16:00 Lidocaine HCl (Xylocaine-Mpf 1% Vial) 0.5 ml 1X STAT ID Last administered on 14:31; Start 03/01/17 at 13:54; Stop 03/01/17 at 13:56; Status DC Fentanyl Citrate (Fentanyl 2ml Vial) 25 mcg PRN Q5MIN PRN IV MILD PAIN; Start 03/02/17 at 07:00; Stop 03/02/17 at 23:00; Status DC Fentanyl Citrate (Fentanyl 2ml Vial) 50 mcg PRN Q5MIN PRN IV MODERATE PAIN; Start 03/02/17 at 07:00; Stop 03/02/17 at 23:00; Status DC Morphine Sulfate 1 mg PRN Q10MIN PRN IV SEVERE PAIN; Start 03/02/17 at 07:00; Stop 03/02/17 at 23:00; Status DC Lidocaine HCl 2 ml PRN 1X PRN ID PRIOR TO IV START; Start 03/02/17 at 07:00; Stop 03/02/17 at 23:00; Status DC Hydromorphone HCl (Dilaudid) 0.5 mg PRN Q10MIN PRN IV SEV PAIN, Second choice; Start 03/02/17 at 07:00; Stop 03/02/17 at 23:00; Status DC Prochlorperazine Edisylate (Compazine) 5 mg PACU PRN PRN IV NAUSEA, MRX1; Start 03/02/17 at 07:00; Stop 03/02/17 at 23:00; Status DC Sodium Chloride 1,000 ml @ 0 mls/hr Q0M IV ; Start 03/02/17 at 13:45 Vancomycin HCl 500 mg/Sodium Chloride 100 ml @ 100 mls/hr QTUTHSA IV ; Start at 16:00; Status Cancel Bupivacaine HCl/ Epinephrine Bitart (Marcaine-Epi 0.25%-[id number]) 50 ml STK-MED ONCE .ROUTE ; Start 03/02/17 at 11:53; Stop 03/02/17 at 11:54; Status DC Magnesium Sulfate/ Dextrose 50 ml @ 25 mls/hr PRN DAILY PRN IV for Mag < 1.7 on am labs; Start 03/02/17 at 14:00 Propofol 20 ml @ As Directed STK-MED ONCE IV ; Start 03/02/17 at 15:08; Stop at 15:09; Status DC Famotidine (Pepcid) 20 mg STK-MED ONCE .ROUTE ; Start 03/02/17 at 15:08; Stop at 15:09; Status DC Lidocaine HCl (Lidocaine Pf 2% Vial) 5 ml STK-MED ONCE .ROUTE ; Start 03/02/17 at 15:08; Stop 03/02/17 at 15:09; Status DC Ondansetron HCl (Zofran) 4 mg STK-MED ONCE .ROUTE ; Start 03/02/17 at 15:08; Stop 03/02/17 at 15:09; Status DC Fentanyl Citrate (Fentanyl 2ml Vial) 100 mcg STK-MED ONCE .ROUTE ; Start at 15:45; Stop 03/02/17 at 15:46; Status DC Rocuronium [place] (Zemuron) 50 mg STK-MED ONCE .ROUTE ; Start 03/02/17 at 15:45 ; Stop 03/02/17 at 15:46; Status DC Clindamycin Phosphate 0 ml @ As Directed STK-MED ONCE IV ; Start 03/02/17 at 15: 48; Stop 03/02/17 at 15:49; Status DC Clindamycin Phosphate 50 ml @ 100 mls/hr 1X ONCE IV Last administered on 03/02t 16:27; Start 03/02/17 at 17:00; Stop 03/02/17 at 17:29; Status DC Oxycodone HCl (Roxicodone) 5 mg PRN Q3HRS PRN PO PAIN; Start 03/02/17 at 17:30 Morphine Sulfate 2 mg PRN Q1HR PRN IV PAIN; Start 03/02/17 at 17:30 Fentanyl Citrate (Fentanyl 2ml Vial) 25 mcg PRN Q1HR PRN IV PAIN; Start at 17:30 Senna/Docusate Sodium (Senna Plus) 1 tab DAILY PO ; Start 03/03/17 at 09:00 Polyethylene Glycol (miraLAX PACKET) 17 gm PRN DAILY PRN PO CONSTIPATION; Start 03/02/17 at 17:30 Clindamycin Phosphate 50 ml @ 100 mls/hr Q6H IV ; Start 03/02/17 at 22:30; Stop 03/03/17 at 10:59; Status Cancel Ondansetron HCl (Zofran) 4 mg PRN Q4HRS PRN IV NAUSEA/VOMITING; Start 03/02/17 at 17:30 Aspirin (Ecotrin) 81 mg DAILYWBKFT PO ; Start 03/03/17 at 08:00; Stop 03/03/17 at 08:39; Status DC Magnesium Hydroxide (Milk Of Magnesia) 2,400 mg 1X PRN PRN PO CONSTIPATION; Start 03/03/17 at 06:00; Stop 03/04/17 at 05:59 Bisacodyl (Dulcolax Supp) 10 mg 1X PRN PRN [place] CONSTIPATION; Start 03/03/17 at 16:00; Stop 03/04/17 at 15:59 Acetaminophen/ Hydrocodone Bitart (Lortab 7.5/325) 1 tab PRN Q4HRS PRN PO PAIN ; Start 03/02/17 at 17:30 Morphine Sulfate 4 mg PRN Q2HR PRN IV PAIN Last administered on 03/03/17t 08:29 ; Start 03/02/17 at 17:30 Acetaminophen/ Hydrocodone Bitart (Lortab 7.5/325) 2 tab PRN Q4HRS PRN PO PAIN ; Start 03/02/17 at 17:30 Dextrose (Dextrose 50%-Water Syringe) 12.5 gm PRN Q15MIN PRN IV SEE COMMENTS; Start 03/02/17 at 17:30 Sevoflurane (Ultane) 60 ml STK-MED ONCE IH ; Start 03/02/17 at 17:32; Stop 03/02 at 17:33; Status DC Dexamethasone Sodium Phosphate (Decadron) 20 mg STK-MED ONCE .ROUTE ; Start at 17:32; Stop 03/02/17 at 17:33; Status DC Phenylephrine HCl 1 mg STK-MED ONCE IV ; Start 03/02/17 at 17:32; Stop 03/02/17 at 17:33; Status DC Vancomycin HCl 1 gm/Sodium Chloride 250 ml @ 250 mls/hr QTUTHSA IV ; Start at 16:00 Vancomycin HCl 1 each 1X ONCE MC ; Start 03/06/17 at 05:00; Stop 03/06/17 at 05 :01 Lidocaine HCl (Xylocaine-Mpf 1% Vial) 0.5 ml 1X STAT ID Last administered on 08:20; Start 03/03/17 at 08:05; Stop 03/03/17 at 08:10; Status DC Sodium Chloride 1,000 ml @ 1,000 mls/hr Q1H PRN IV hypotension; Start 03/03/17 at 08:08; Stop 03/03/17 at 14:07 Diphenhydramine HCl (Benadryl) 25 mg 1X PRN PRN IV ITCHING; Start 03/03/17 at 08:15; Stop 03/04/17 at 08:14 Diphenhydramine HCl (Benadryl) 25 mg 1X PRN PRN IV ITCHING; Start 03/03/17 at 08:15; Stop 03/04/17 at 08:14 Sodium Chloride 1,000 ml @ 400 mls/hr Q2H30M PRN IV PATENCY; Start 03/03/17 at 08:08; Stop 03/03/17 at 20:07 Info (PHARMACY MONITORING -- do not chart) 1 each PRN DAILY PRN MC SEE COMMENTS ; Start 03/03/17 at 08:15; Status UNV Info (PHARMACY MONITORING -- do not chart) 1 each PRN DAILY PRN MC SEE COMMENTS ; Start 03/03/17 at 08:15; Status UNV Calcium Carbonate/ Glycine (Oscal) 2,000 mg TIDAC PO ; Start 03/03/17 at 11:30 Active Scripts Active Levetiracetam 500 Mg Tablet 500 Mg PO BID Morphine Sulfate Er (Morphine Sulfate) 30 Mg Tablet.er 30 Mg PO TID Lidoderm (Lidocaine) 700 Mg Adh..patch 1 Patch TD DAILY Ventolin Hfa Inhaler (Albuterol Sulfate) 18 Gm Hfa.aer.ad 2 Puff INH Q4HRS PRN Metoprolol Tartrate 50 Mg Tablet 50 Mg PO BID Synthroid (Levothyroxine Sodium) 175 Mcg Tablet 175 Mcg PO DAILY07 Isosorbide Mononitrate Er (Isosorbide Mononitrate) 30 Mg Tab.er.24h 30 Mg PO DAILY Reported Ketorolac Tromethamine 5 Ml Drops 1 Drop OS QID Maxidex (Dexamethasone) 5 Ml Drops.susp 1 Drop OS Q4HRS Vigamox (Moxifloxacin Hcl) 3 Ml Drops 1 Drop EACHEYE TID Ropinirole Hcl 0.25 Mg Tablet 0.25 Mg PO Oxycodone Hcl 5 Mg Capsule 5 Mg PO PRN Midodrine Hcl 5 Mg Tablet 5 Mg PO Citalopram Hbr (Citalopram Hydrobromide) 20 Mg Tablet 1 Tab PO DAILY Trazodone Hcl 50 Mg Tablet 0.5-1 Tab PO QHS Risperidone 0.5 Mg Tablet 1 Tab PO QHS Bromsite (Bromfenac Sodium) 5 Ml Drops 5 Ml LEFTEYE DAILY Vigamox (Moxifloxacin Hcl) 3 Ml Drops 1 Drop LEFTEYE TID Prednisolone Acetate 5 Ml Drops.susp 1 Drop OS Q1HR Famotidine 20 Mg Tablet 20 Mg PO HS Coumadin (Warfarin Sodium) 5 Mg Tablet 1 Tab PO DAILY Nephro-Jimmy Tablet (Folic Acid/Vitamin B Comp W-C) 0.8 Mg Tablet 1 Tab PO DAILY Carafate (Sucralfate) 1 Gm Tablet 1 Tab PO BID Nitrostat (Nitroglycerin) 0.4 Mg Tab.subl 0.4 Mg SL PRN Q5MIN PRN Calcium Carbonate 500 Mg/5 Ml Oral.susp 2,000 Mg PO TID Aranesp Syringe (Darbepoetin Jace In Polysorbat) 100 Mcg/0.5 Ml Disp.syrin 100 Mcg SQ WEEKLY Voltaren (Diclofenac Sodium) 100 Gm Gel..gram. 1 Gm TP BID Clopidogrel (Clopidogrel Bisulfate) 75 Mg Tablet 75 Mg PO DAILY07 Renvela (Sevelamer Carbonate) 800 Mg Tablet Tab PO TID Vitamin D2 (Ergocalciferol (Vitamin D2)) 50,000 Unit Capsule 50,000 Unit PO WEEKLY Atorvastatin Calcium 80 Mg Tablet 80 Mg PO HS Vitals/I & O Vital Sign - Last 24 Hours 03/02/17 03/02/17 03/02/17 03/02/17 10:32 10:32 11:00 12:39 Temp 97.5 97.5 Pulse 77 77 80 Resp 20 B/P (MAP) 136/76 136/76 127/79 (95) Pulse Ox 96 O2 Delivery Room Air Room Air 03/02/17 03/02/17 03/02/17 03/02/17 14:00 14:54 15:00 17:16 Temp 97.5 97.6 97.5 97.6 Pulse 84 84 Resp 20 20 B/P (MAP) 176/91 116/62 (80) Pulse Ox 100 97 O2 Delivery Room Air Room Air Room Air Mask O2 Flow Rate 10 03/02/17 03/02/17 03/02/17 03/02/17 17:16 17:33 17:48 17:48 Pulse 80 79 76 Resp 20 20 20 B/P (MAP) 148/86 142/86 143/80 Pulse Ox 100 100 100 O2 Delivery Simple Mask Simple Mask Nasal Cannula Nasal Cannula O2 Flow Rate 10 10 2 2 03/02/17 03/02/17 03/02/17 03/02/17 18:15 18:30 18:45 19:00 Temp 97.5 97.5 Pulse 103 76 74 73 Resp 20 20 20 18 B/P (MAP) 120/69 (86) 109/63 (78) 114/65 (81) 105/56 (72) Pulse Ox 100 98 97 94 O2 Delivery Room Air Room Air Room Air Nasal Cannula O2 Flow Rate 2.0 03/02/17 03/02/17 03/02/17 03/02/17 19:30 20:00 20:00 20:59 Pulse 76 76 76 Resp 20 20 B/P (MAP) 124/79 (94) 140/79 (99) 140/79 Pulse Ox 96 97 O2 Delivery Nasal Cannula Nasal Cannula Room Air O2 Flow Rate 2.0 2.0 03/02/17 03/02/17 03/02/17 03/02/17 21:00 21:00 21:18 23:00 Temp 97.9 97.9 Pulse 81 81 Resp 20 18 20 18 B/P (MAP) 125/84 (98) 118/78 (91) Pulse Ox 95 96 O2 Delivery Room Air Room Air Room Air Room Air 03/03/17 03/03/17 03/03/17 03/03/17 00:21 00:51 02:47 03:00 Temp 97.7 97.7 Pulse 85 Resp 20 20 20 20 B/P (MAP) 123/70 (87) Pulse Ox 97 O2 Delivery Room Air Room Air Room Air Room Air 03/03/17 03/03/17 03/03/17 03/03/17 06:38 07:00 07:08 08:29 Temp 98.1 98.1 Pulse 86 Resp 20 20 20 20 B/P (MAP) 149/82 (104) Pulse Ox 95 O2 Delivery Room Air Room Air Room Air Room Air 03/03/17 08:30 Resp 20 O2 Delivery Room Air Intake and Output 03/02/17 03/02/17 03/03/17 15:00 23:00 07:00 Intake Total 400 ml 1860 ml Output Total 100 ml 50 ml Balance -100 ml 350 ml 1860 ml SUGAR BEAL MD Mar 03, 2017 10:14
--- NOTE | 2017-03-03 11:45 | PDOC ---
Provider Note Provider Note Went to check on patient, but not in room. Probably at HD. POD #1 left transmetatarsal amputation. Continue POC including therapy and DVT ppx. NWB on LLE. Wound care. EVERARDO RUIZ Mar 03, 2017 11:45
--- NOTE | 2017-03-03 11:54 | PDOC2 ---
CONSULT Date of Consult Date of Consult 03/01/2017 late entry, patient seen on and I recommended surgery for Sunday, consult now being documented 03/03 Reason for Consult Reason for Consult: Left foot ulcer open wound and osteomyelitis Identification/Chief Complaint Chief Complaint Left foot wound Problems: Source Source: Chart review, Patient History of Present Illness Reason for Visit: This 51-year-old man with diabetes has had previous left toe amputations. He now presents with a plantar ulcer and open wound under the remnant first metatarsal shaft and head region. He said the medial 3 toes amputated previously. X-rays and MRI show probable osteomyelitis in the distal aspect of the remnant first metatarsal. He and I discussed options for treatment. Past Medical History Cardiovascular: AFIB, CAD, CHF, HTN, OH, Hyperlipidemia, Other Pulmonary: Asthma, Other CENTRAL NERVOUS SYSTEM: CVA, Dementia, Periperal neuropathy, Seizure, TIA, Vertigo GI: Diverticulosis, Hemorrhoids Heme/Onc: Anemia NOS Hepatobiliary: No pertinent hx Psych: Anxiety, Depression Musculoskeletal: Osteoarthritis Infectious disease: No pertinent hx Renal/: Chronic renal failure Endocrine: Diabetes, Hypothyroidism Past Surgical History Past Surgical History: Cataract Removal, Total knee replacement, Other Family History Family History: Hypertension Social History No ALCOHOL: none Drugs: None Lives: with Family Current Problem List Problem List Problems Medical Problems: (1) End stage renal disease Status: Acute (2) Foot ulcer, left Status: Acute Current Medications Current Medications Current Medications Morphine Sulfate 4 mg PRN Q15MIN PRN IV/SQ PAIN GREATER THAN 3/10 Last administered on 02/28/17 19:05; Start 02/28/17 at 18:00; Stop 03/01/17 at 17:59 ; Status DC Morphine Sulfate 4 mg PRN Q2HR PRN IV PAIN Last administered on 03/01/17 19:08 ; Start 02/28/17 at 19:15; Stop 03/01/17 at 19:14; Status DC Citalopram Hydrobromide (CeleXA) 20 mg DAILY PO Last administered on 03/01/17 08:06; Start 03/01/17 at 09:00 Clopidogrel Bisulfate (Plavix) 75 mg DAILY07 PO Last administered on 03/03/17 06:34; Start 03/01/17 at 07:00 Darbepoetin Jace (Aranesp) 100 mcg WEEKLY SQ ; Start 03/07/17 at 09:00 Dexamethasone (Maxidex) 1 drop Q4HRS OS Last administered on 03/03/17 08:16; Start 02/28/17 at 20:00 Diclofenac Sodium (Voltaren) 1 ayaz BID TP Last administered on 03/02/17 20:58 ; Start 02/28/17 at 21:00 Ergocalciferol (Vitamin D2) 50,000 unit WEEKLY PO ; Start 03/07/17 at 09:00 Famotidine (Pepcid) 20 mg HS PO Last administered on 03/02/17 21:00; Start at 21:00 Vitamin B Complex/ Vitamin C (Fernanda-Jimmy) 1 tab DAILY PO Last administered on 08:05; Start 03/01/17 at 09:00 Isosorbide Mononitrate (Imdur) 30 mg DAILY PO Last administered on 03/02/17 10 :32; Start 03/01/17 at 09:00 Ketorolac Tromethamine (Acular) 1 drop QID OS Last administered on 03/02/17 21 :01; Start 02/28/17 at 21:00 Levetiracetam (Keppra) 500 mg BID PO Last administered on 03/02/17 21:00; Start 02/28/17 at 21:00 Levothyroxine Sodium (Synthroid) 175 mcg DAILY07 PO Last administered on 06:34; Start 03/01/17 at 07:00 Lidocaine (Lidoderm) 1 patch DAILY TD ; Start 03/01/17 at 09:00 Metoprolol Tartrate (Lopressor) 50 mg BID PO Last administered on 03/02/17 20: 59; Start 02/28/17 at 21:00 Morphine Sulfate (Ms Contin) 30 mg TID PO Last administered on 03/03/17 08:30 ; Start 02/28/17 at 21:00 Moxifloxacin HCl (Vigamox) 1 drop TID OU Last administered on 03/02/17 21:00; Start 02/28/17 at 21:00 Nitroglycerin (Nitrostat) 0.4 mg PRN Q5MIN PRN SL CHEST PAIN; Start 02/28/17 at 19:45 Sucralfate (Carafate) 1 gm BID PO Last administered on 03/02/17 20:59; Start 02/28/17 at 21:00 Trazodone HCl (Desyrel) 25 mg QHS PO Last administered on 03/02/17 20:59; Start 02/28/17 at 21:00 Warfarin Sodium (Coumadin) 5 mg DAILY16 PO ; Start 03/01/17 at 16:00; Stop 03/01 at 16:00; Status DC Albuterol Sulfate (Ventolin Neb Soln) 2.5 mg PRN Q4HRS PRN NEB SHORTNESS OF BREATH; Start 02/28/17 at 20:00 Atorvastatin Calcium (Lipitor) 80 mg QHS PO Last administered on 03/02/17 20: 59; Start 02/28/17 at 21:00 Non-Formulary Medication 5 ml DAILY LEFTEYE ; Start 03/01/17 at 09:00; Status UNV Calcium Carbonate/ Glycine (Oscal) 2,000 mg TID PO Last administered on 21:00; Start 03/01/17 at 09:00; Stop 03/03/17 at 09:21; Status DC Non-Formulary Medication 1 drop Q1HR OS ; Start 02/28/17 at 20:00; Status UNV Risperidone (RisperDAL) 0.5 mg QHS PO Last administered on 03/02/17 20:59; Start 02/28/17 at 21:00 Acetaminophen (Tylenol) 650 mg PRN Q6HRS PRN PO FEVER; Start 02/28/17 at 19:45 Ondansetron HCl (Zofran) 4 mg PRN Q6HRS PRN IV NAUSEA/VOMITING Last administered on 03/02/17 08:35; Start 02/28/17 at 19:45; Stop 03/02/17 at 17:27 ; Status DC Morphine Sulfate 2 mg PRN Q2HR PRN IV PAIN Last administered on 03/02/17 12:39 ; Start 02/28/17 at 19:45; Stop 03/02/17 at 17:27; Status DC Tramadol HCl (Ultram) 50 mg PRN Q6HRS PRN PO PAIN; Start 02/28/17 at 19:45 Hydralazine HCl (Apresoline) 10 mg PRN Q4HRS PRN IVP ELEVATED BP, SEE COMMENTS ; Start 02/28/17 at 19:45 Docusate Sodium (Colace) 100 mg PRN DAILY PRN PO CONSTIPATION; Start 02/28/17 at 19:45 Vancomycin HCl 2 gm/Sodium Chloride 500 ml @ 250 mls/hr 1X ONCE IV ; Start at 20:30; Stop 02/28/17 at 22:29; Status Cancel Vancomycin HCl (Vanco Per Pharmacy) 1 each PRN DAILY PRN MC SEE COMMENTS Last administered on 03/03/17 02:57; Start 02/28/17 at 20:00 Cefepime HCl 1 gm/ Sodium Chloride 50 ml @ 100 mls/hr Q12HR IV ; Start at 20:30; Status Cancel Warfarin Sodium (Coumadin Per Physician) 1 each PRN DAILY PRN MC SEE COMMENTS Last administered on 03/02/17 10:30; Start 02/28/17 at 20:00 Vancomycin HCl 1.25 gm/Sodium Chloride 250 ml @ 167 mls/hr Q48H IV ; Start at 23:00; Stop 03/02/17 at 23:00; Status DC Vancomycin HCl 1 each 1X ONCE MC ; Start 03/04/17 at 22:30; Stop 03/04/17 at 22 :30; Status DC Cefepime HCl 1 gm/ Sodium Chloride 50 ml @ 100 mls/hr QHS IV Last administered on 03/02/17 21:01; Start 02/28/17 at 23:30 Vancomycin HCl 2 gm/Sodium Chloride 500 ml @ 250 mls/hr 1X ONCE IV Last administered on 02/28/17 23:30; Start 02/28/17 at 23:30; Stop 03/01/17 at 01:29 ; Status DC Insulin Aspart (NovoLOG) 0-9 UNITS TIDWMEALS SQ Last administered on 03/03/17 08:18; Start 03/01/17 at 08:00 Dextrose (Dextrose 50%-Water Syringe) 12.5 gm PRN Q15MIN PRN IV SEE COMMENTS; Start 03/01/17 at 03:00; Status Cancel Vancomycin HCl 1 each 1X ONCE MC Last administered on 03/02/17 05:00; Start 03/02/17 at 05:00; Stop 03/02/17 at 05:01; Status DC Sodium Chloride 1,000 ml @ 1,000 mls/hr Q1H PRN IV hypotension; Start 03/01/17 at 12:02; Stop 03/01/17 at 18:01; Status DC Diphenhydramine HCl (Benadryl) 25 mg 1X PRN PRN IV ITCHING; Start 03/01/17 at 12:15; Stop 03/02/17 at 12:14; Status DC Diphenhydramine HCl (Benadryl) 25 mg 1X PRN PRN IV ITCHING; Start 03/01/17 at 12:15; Stop 03/02/17 at 12:14; Status DC Sodium Chloride 1,000 ml @ 400 mls/hr Q2H30M PRN IV PATENCY; Start 03/01/17 at 12:02; Stop 03/02/17 at 00:01; Status DC Info (PHARMACY MONITORING -- do not chart) 1 each PRN DAILY PRN MC SEE COMMENTS ; Start 03/01/17 at 12:15 Warfarin Sodium (Coumadin) 7.5 mg 1X WARF ONCE PO ; Start 03/01/17 at 16:00; Stop 03/01/17 at 16:01; Status Cancel Warfarin Sodium (Coumadin) 5 mg DAILY16 PO Last administered on 03/01/17t 19:03 ; Start 03/01/17 at 16:00 Lidocaine HCl (Xylocaine-Mpf 1% Vial) 0.5 ml 1X STAT ID Last administered on t 14:31; Start 03/01/17 at 13:54; Stop 03/01/17 at 13:56; Status DC Fentanyl Citrate (Fentanyl 2ml Vial) 25 mcg PRN Q5MIN PRN IV MILD PAIN; Start 03/02/17 at 07:00; Stop 03/02/17 at 23:00; Status DC Fentanyl Citrate (Fentanyl 2ml Vial) 50 mcg PRN Q5MIN PRN IV MODERATE PAIN; Start 03/02/17 at 07:00; Stop 03/02/17 at 23:00; Status DC Morphine Sulfate 1 mg PRN Q10MIN PRN IV SEVERE PAIN; Start 03/02/17 at 07:00; Stop 03/02/17 at 23:00; Status DC Lidocaine HCl 2 ml PRN 1X PRN ID PRIOR TO IV START; Start 03/02/17 at 07:00; Stop 03/02/17 at 23:00; Status DC Hydromorphone HCl (Dilaudid) 0.5 mg PRN Q10MIN PRN IV SEV PAIN, Second choice; Start 03/02/17 at 07:00; Stop 03/02/17 at 23:00; Status DC Prochlorperazine Edisylate (Compazine) 5 mg PACU PRN PRN IV NAUSEA, MRX1; Start 03/02/17 at 07:00; Stop 03/02/17 at 23:00; Status DC Sodium Chloride 1,000 ml @ 0 mls/hr Q0M IV ; Start 03/02/17 at 13:45 Vancomycin HCl 500 mg/Sodium Chloride 100 ml @ 100 mls/hr QTUTHSA IV ; Start at 16:00; Status Cancel Bupivacaine HCl/ Epinephrine Bitart (Marcaine-Epi 0.25%-[id number]) 50 ml STK-MED ONCE .ROUTE ; Start 03/02/17 at 11:53; Stop 03/02/17 at 11:54; Status DC Magnesium Sulfate/ Dextrose 50 ml @ 25 mls/hr PRN DAILY PRN IV for Mag < 1.7 on am labs; Start 03/02/17 at 14:00 Propofol 20 ml @ As Directed STK-MED ONCE IV ; Start 03/02/17 at 15:08; Stop at 15:09; Status DC Famotidine (Pepcid) 20 mg STK-MED ONCE .ROUTE ; Start 03/02/17 at 15:08; Stop at 15:09; Status DC Lidocaine HCl (Lidocaine Pf 2% Vial) 5 ml STK-MED ONCE .ROUTE ; Start 03/02/17 at 15:08; Stop 03/02/17 at 15:09; Status DC Ondansetron HCl (Zofran) 4 mg STK-MED ONCE .ROUTE ; Start 03/02/17 at 15:08; Stop 03/02/17 at 15:09; Status DC Fentanyl Citrate (Fentanyl 2ml Vial) 100 mcg STK-MED ONCE .ROUTE ; Start at 15:45; Stop 03/02/17 at 15:46; Status DC Rocuronium [place] (Zemuron) 50 mg STK-MED ONCE .ROUTE ; Start 03/02/17 at 15:45 ; Stop 03/02/17 at 15:46; Status DC Clindamycin Phosphate 0 ml @ As Directed STK-MED ONCE IV ; Start 03/02/17 at 15: 48; Stop 03/02/17 at 15:49; Status DC Clindamycin Phosphate 50 ml @ 100 mls/hr 1X ONCE IV Last administered on 03/02t 16:27; Start 03/02/17 at 17:00; Stop 03/02/17 at 17:29; Status DC Oxycodone HCl (Roxicodone) 5 mg PRN Q3HRS PRN PO PAIN; Start 03/02/17 at 17:30 Morphine Sulfate 2 mg PRN Q1HR PRN IV PAIN; Start 03/02/17 at 17:30 Fentanyl Citrate (Fentanyl 2ml Vial) 25 mcg PRN Q1HR PRN IV PAIN; Start at 17:30 Senna/Docusate Sodium (Senna Plus) 1 tab DAILY PO ; Start 03/03/17 at 09:00 Polyethylene Glycol (miraLAX PACKET) 17 gm PRN DAILY PRN PO CONSTIPATION; Start 03/02/17 at 17:30 Clindamycin Phosphate 50 ml @ 100 mls/hr Q6H IV ; Start 03/02/17 at 22:30; Stop 03/03/17 at 10:59; Status Cancel Ondansetron HCl (Zofran) 4 mg PRN Q4HRS PRN IV NAUSEA/VOMITING; Start 03/02/17 at 17:30 Aspirin (Ecotrin) 81 mg DAILYWBKFT PO ; Start 03/03/17 at 08:00; Stop 03/03/17 at 08:39; Status DC Magnesium Hydroxide (Milk Of Magnesia) 2,400 mg 1X PRN PRN PO CONSTIPATION; Start 03/03/17 at 06:00; Stop 03/04/17 at 05:59 Bisacodyl (Dulcolax Supp) 10 mg 1X PRN PRN DC CONSTIPATION; Start 03/03/17 at 16:00; Stop 03/04/17 at 15:59 Acetaminophen/ Hydrocodone Bitart (Lortab 7.5/325) 1 tab PRN Q4HRS PRN PO PAIN ; Start 03/02/17 at 17:30 Morphine Sulfate 4 mg PRN Q2HR PRN IV PAIN Last administered on 03/03/17t 08:29 ; Start 03/02/17 at 17:30 Acetaminophen/ Hydrocodone Bitart (Lortab 7.5/325) 2 tab PRN Q4HRS PRN PO PAIN ; Start 03/02/17 at 17:30 Dextrose (Dextrose 50%-Water Syringe) 12.5 gm PRN Q15MIN PRN IV SEE COMMENTS; Start 03/02/17 at 17:30 Sevoflurane (Ultane) 60 ml STK-MED ONCE IH ; Start 03/02/17 at 17:32; Stop 03/02 at 17:33; Status DC Dexamethasone Sodium Phosphate (Decadron) 20 mg STK-MED ONCE .ROUTE ; Start at 17:32; Stop 03/02/17 at 17:33; Status DC Phenylephrine HCl 1 mg STK-MED ONCE IV ; Start 03/02/17 at 17:32; Stop 03/02/17 at 17:33; Status DC Vancomycin HCl 1 gm/Sodium Chloride 250 ml @ 250 mls/hr QTUTHSA IV ; Start at 16:00 Vancomycin HCl 1 each 1X ONCE MC ; Start 03/06/17 at 05:00; Stop 03/06/17 at 05 :01 Lidocaine HCl (Xylocaine-Mpf 1% Vial) 0.5 ml 1X STAT ID Last administered on 08:20; Start 03/03/17 at 08:05; Stop 03/03/17 at 08:10; Status DC Sodium Chloride 1,000 ml @ 1,000 mls/hr Q1H PRN IV hypotension; Start 03/03/17 at 08:08; Stop 03/03/17 at 14:07 Diphenhydramine HCl (Benadryl) 25 mg 1X PRN PRN IV ITCHING; Start 03/03/17 at 08:15; Stop 03/04/17 at 08:14 Diphenhydramine HCl (Benadryl) 25 mg 1X PRN PRN IV ITCHING; Start 03/03/17 at 08:15; Stop 03/04/17 at 08:14 Sodium Chloride 1,000 ml @ 400 mls/hr Q2H30M PRN IV PATENCY; Start 03/03/17 at 08:08; Stop 03/03/17 at 20:07 Info (PHARMACY MONITORING -- do not chart) 1 each PRN DAILY PRN MC SEE COMMENTS ; Start 03/03/17 at 08:15; Status UNV Info (PHARMACY MONITORING -- do not chart) 1 each PRN DAILY PRN MC SEE COMMENTS ; Start 03/03/17 at 08:15; Status UNV Calcium Carbonate/ Glycine (Oscal) 2,000 mg TIDAC PO ; Start 03/03/17 at 11:30 Active Scripts Active Levetiracetam 500 Mg Tablet 500 Mg PO BID Morphine Sulfate Er (Morphine Sulfate) 30 Mg Tablet.er 30 Mg PO TID Lidoderm (Lidocaine) 700 Mg Adh..patch 1 Patch TD DAILY Ventolin Hfa Inhaler (Albuterol Sulfate) 18 Gm Hfa.aer.ad 2 Puff INH Q4HRS PRN Metoprolol Tartrate 50 Mg Tablet 50 Mg PO BID Synthroid (Levothyroxine Sodium) 175 Mcg Tablet 175 Mcg PO DAILY07 Isosorbide Mononitrate Er (Isosorbide Mononitrate) 30 Mg Tab.er.24h 30 Mg PO DAILY Reported Ketorolac Tromethamine 5 Ml Drops 1 Drop OS QID Maxidex (Dexamethasone) 5 Ml Drops.susp 1 Drop OS Q4HRS Vigamox (Moxifloxacin Hcl) 3 Ml Drops 1 Drop EACHEYE TID Ropinirole Hcl 0.25 Mg Tablet 0.25 Mg PO Oxycodone Hcl 5 Mg Capsule 5 Mg PO PRN Midodrine Hcl 5 Mg Tablet 5 Mg PO Citalopram Hbr (Citalopram Hydrobromide) 20 Mg Tablet 1 Tab PO DAILY Trazodone Hcl 50 Mg Tablet 0.5-1 Tab PO QHS Risperidone 0.5 Mg Tablet 1 Tab PO QHS Bromsite (Bromfenac Sodium) 5 Ml Drops 5 Ml LEFTEYE DAILY Vigamox (Moxifloxacin Hcl) 3 Ml Drops 1 Drop LEFTEYE TID Prednisolone Acetate 5 Ml Drops.susp 1 Drop OS Q1HR Famotidine 20 Mg Tablet 20 Mg PO HS Coumadin (Warfarin Sodium) 5 Mg Tablet 1 Tab PO DAILY Nephro-Jimmy Tablet (Folic Acid/Vitamin B Comp W-C) 0.8 Mg Tablet 1 Tab PO DAILY Carafate (Sucralfate) 1 Gm Tablet 1 Tab PO BID Nitrostat (Nitroglycerin) 0.4 Mg Tab.subl 0.4 Mg SL PRN Q5MIN PRN Calcium Carbonate 500 Mg/5 Ml Oral.susp 2,000 Mg PO TID Aranesp Syringe (Darbepoetin Jace In Polysorbat) 100 Mcg/0.5 Ml Disp.syrin 100 Mcg SQ WEEKLY Voltaren (Diclofenac Sodium) 100 Gm Gel..gram. 1 Gm TP BID Clopidogrel (Clopidogrel Bisulfate) 75 Mg Tablet 75 Mg PO DAILY07 Renvela (Sevelamer Carbonate) 800 Mg Tablet Tab PO TID Vitamin D2 (Ergocalciferol (Vitamin D2)) 50,000 Unit Capsule 50,000 Unit PO WEEKLY Atorvastatin Calcium 80 Mg Tablet 80 Mg PO HS Allergies Allergies: Coded Allergies: iodine (Verified Allergy, Severe, THROAT SWELLING, 03/29/16) lisinopril (Verified Allergy, Severe, 03/16/16) Fish Containing Products (Verified Allergy, Intermediate, 03/16/16) Penicillins (Verified Allergy, Intermediate, SEE COMMENT, 04/13/16) 05/19/15 Pt doesnt know reaction; ID starting Meropenem, HAS TOLERATED CEFAZOLIN piperacillin (Verified Allergy, Intermediate, Hives, 03/16/16) tazobactam (Verified Allergy, Intermediate, 03/16/16) ROS General: No: Chills, Night Sweats Hematological and Lymphatic: No: Bleeding Problems, Blood Clots Musculoskeletal: Yes Gait Disturbance, Yes Joint Pain Neurological: No Bowel/Bladder ControlChng Physical Exam General: Alert, Cooperative HEENT: Atraumatic Lungs: Normal air movement Heart: Regular rate Abdomen: Soft Extremities: Other (+1 dorsalis pedis pulse bilaterally) Skin: Other (plantar ulcer first metatarsal head region, full thickness with tunneling. Decreased light touch sensation.) Neuro: Normal speech Psych/Mental Status: Mood NL MUSCULOSKELETAL: Abnormal exam of right (lower extremities as above) Vitals VITALS Vital Signs Date Time Temp Pulse Resp B/P (MAP) Pulse Ox O2 Delivery O2 Flow Rate FiO2 03/03/17 08:30 20 Room Air 03/03/17 07:00 98.1 86 149/82 (104) 95 98.1 03/02/17 20:00 2.0 Labs Labs Laboratory Tests Test 03/01/17 18:13 03/01/17 20:43 03/02/17 03:39 03/02/17 07:34 Glucose (Fingerstick) 184 mg/dL (70-99) 248 mg/dL (70-99) 218 mg/dL (70-99) Random Vancomycin Level 15.2 mcg/mL Test 03/02/17 10:57 03/02/17 15:06 03/02/17 17:21 03/02/17 20:27 Glucose (Fingerstick) 202 mg/dL (70-99) 176 mg/dL (70-99) 179 mg/dL (70-99) 216 mg/dL (70-99) Test 03/03/17 07:36 03/03/17 08:24 Glucose (Fingerstick) 236 mg/dL (70-99) White Blood Count 6.0 x10^3/uL (4.0-11.0) Red Blood Count 3.72 x10^6/uL (4.30-5.70) Hemoglobin 11.4 g/dL (13.0-17.5) Hematocrit 35.3 % (39.0-53.0) Mean Corpuscular Volume 95 fL (79-100) Mean Corpuscular Hemoglobin 31 pg (25-35) Mean Corpuscular Hemoglobin Concent 32 g/dL (31-37) Red Cell Distribution Width 15.4 % (11.5-14.5) Platelet Count 148 x10^3/uL (140-400) Neutrophils (%) (Auto) 76 % (31-73) Lymphocytes (%) (Auto) 13 % (24-48) Monocytes (%) (Auto) 10 % (0-9) Eosinophils (%) (Auto) 0 % (0-3) Basophils (%) (Auto) 1 % (0-3) Neutrophils # (Auto) 4.6 x10^3uL (1.8-7.7) Lymphocytes # (Auto) 0.8 x10^3/uL (1.0-4.8) Monocytes # (Auto) 0.6 x10^3/uL (0.0-1.1) Eosinophils # (Auto) 0.0 x10^3/uL (0.0-0.7) Basophils # (Auto) 0.0 x10^3/uL (0.0-0.2) Prothrombin Time 13.7 SEC (11.7-14.0) Prothromb Time International Ratio 1.1 (0.8-1.1) Sodium Level 136 mmol/L (136-145) Potassium Level 5.4 mmol/L (3.5-5.1) Chloride Level 97 mmol/L (98-107) Carbon Dioxide Level 25 mmol/L (21-32) Anion Gap 14 (6-14) Blood Urea Nitrogen 62 mg/dL (8-26) Creatinine 7.6 mg/dL (0.7-1.3) Estimated GFR (Cockcroft-Gault) 9.2 Glucose Level 218 mg/dL (70-99) Calcium Level 7.4 mg/dL (8.5-10.1) Phosphorus Level 8.2 mg/dL (2.6-4.7) Magnesium Level 2.0 mg/dL (1.8-2.4) Albumin 3.3 g/dL (3.4-5.0) Laboratory Tests Test 03/02/17 15:06 03/02/17 17:21 03/02/17 20:27 03/03/17 07:36 Glucose (Fingerstick) 176 mg/dL (70-99) 179 mg/dL (70-99) 216 mg/dL (70-99) 236 mg/dL (70-99) Test 03/03/17 08:24 White Blood Count 6.0 x10^3/uL (4.0-11.0) Red Blood Count 3.72 x10^6/uL (4.30-5.70) Hemoglobin 11.4 g/dL (13.0-17.5) Hematocrit 35.3 % (39.0-53.0) Mean Corpuscular Volume 95 fL (79-100) Mean Corpuscular Hemoglobin 31 pg (25-35) Mean Corpuscular Hemoglobin Concent 32 g/dL (31-37) Red Cell Distribution Width 15.4 % (11.5-14.5) Platelet Count 148 x10^3/uL (140-400) Neutrophils (%) (Auto) 76 % (31-73) Lymphocytes (%) (Auto) 13 % (24-48) Monocytes (%) (Auto) 10 % (0-9) Eosinophils (%) (Auto) 0 % (0-3) Basophils (%) (Auto) 1 % (0-3) Neutrophils # (Auto) 4.6 x10^3uL (1.8-7.7) Lymphocytes # (Auto) 0.8 x10^3/uL (1.0-4.8) Monocytes # (Auto) 0.6 x10^3/uL (0.0-1.1) Eosinophils # (Auto) 0.0 x10^3/uL (0.0-0.7) Basophils # (Auto) 0.0 x10^3/uL (0.0-0.2) Prothrombin Time 13.7 SEC (11.7-14.0) Prothromb Time International Ratio 1.1 (0.8-1.1) Sodium Level 136 mmol/L (136-145) Potassium Level 5.4 mmol/L (3.5-5.1) Chloride Level 97 mmol/L (98-107) Carbon Dioxide Level 25 mmol/L (21-32) Anion Gap 14 (6-14) Blood Urea Nitrogen 62 mg/dL (8-26) Creatinine 7.6 mg/dL (0.7-1.3) Estimated GFR (Cockcroft-Gault) 9.2 Glucose Level 218 mg/dL (70-99) Calcium Level 7.4 mg/dL (8.5-10.1) Phosphorus Level 8.2 mg/dL (2.6-4.7) Magnesium Level 2.0 mg/dL (1.8-2.4) Albumin 3.3 g/dL (3.4-5.0) Images Images I reviewed the x-rays and MRI of the right foot. There is been previous amputation of the first second and third toes. There is abundant new bone formation at the distal first metatarsal remnant shaft, and the evidence on MRI seems to indicate there is osteomyelitis in this region. Assessment/Plan Assessment/Plan Open wound of the right foot, previous amputations, diabetic neuropathy, osteomyelitis, vascular disease. I spoke to him about options for treatment. I don't believe further wound care will be successful at this point, nor would a simple debridement likely be curative of the osteomyelitis. I believe he needs a higher level amputation. We discussed some options, such as a more aggressive metatarsal resection, narrowing the foot significantly, versus a transmetatarsal amputation, or even a below-knee amputation. My initial recommendation would be to attempt a transmetatarsal amputation, with plans to use a carbon fiber foot plate and a toe spacer later, and I think this is a good chance of healing despite some decreased blood flow, decreased sensation. I spoke to him about the potential risks that he would need a higher level amputation, and that there could be wound breakdown, further infection, or other complications. He desires to proceed with transmetatarsal amputation and all of his questions were answered. The patient was seen on with surgery scheduled for Sunday. MARSHA TENORIO MD Mar 03, 2017 11:54
[2017-03-03] MEDS: FOLIC/VIT B COMP W-C (RENAL) TABLET. PO SCH (14:28)
[2017-03-03] MEDS: DICLOFENAC SODIUM 1% TOPICAL GEL 100GM TUBE. TP SCH ×2 (14:28→22:41)
[2017-03-03] MEDS: METOPROLOL TART IMMED RELEASE 50 MG TABLET. PO SCH ×2 (14:30→22:42)
[2017-03-03] MEDS: ISOSORBIDE MONONITRATE ER 30 MG TAB.ER.24H PO SCH (14:30)
[2017-03-03] MEDS: CITALOPRAM 20 MG TABLET. PO SCH (14:30)
[2017-03-03] MEDS: levETIRAcetam 500 MG TABLET PO SCH ×2 (14:31→22:43)
[2017-03-03] MEDS: SENNOSIDES/DOCUSATE 8.6/50MG TABLET. PO SCH (14:31)
[2017-03-03 15:00] VITALS: BP 131/77
[2017-03-03] MEDS ORDERED: VANCOMYCIN 500 MG in IV NORMAL SALINE 100ML 100 ML IV SCH (16:00)
[2017-03-03] MEDS ORDERED: VANCOMYCIN 1 GM in IV NORMAL SALINE 250ML 250 ML IV SCH (16:00)
[2017-03-03] MEDS ORDERED: BISACODYL 10 MG SUPP.RECT. PR PRN (16:00)
--- NOTE | 2017-03-03 17:20 | PDOC ---
Infectious Disease Note Subjective Subjective Comfortable, denies pain ROS ROS GEN: Denies fevers, chills, sweats CV: Denies chest pain RESP: Denies shortness of air, cough GI: Denies n/v/d Vital Sign Vital Signs Vital Signs Date Time Temp Pulse Resp B/P (MAP) Pulse Ox O2 Delivery O2 Flow Rate FiO2 03/03/17 15:00 98.1 105 20 131/77 (95) 100 Room Air 98.1 03/02/17 20:00 2.0 Physical Exam PHYSICAL EXAM GENERAL: Lying down, NAD LUNGS: Clear HEART: S1S2 ABD: Soft, NT EXT: No edema, no cyanosis. Left foot wound vac in place PROJECTS MANAGER: Alert, oriented x 3, no focal neurologic deficit SKIN: No rash Left EJ. ok Labs Lab Laboratory Tests Test 03/02/17 17:21 03/02/17 20:27 03/03/17 07:36 03/03/17 08:24 Glucose (Fingerstick) 179 mg/dL (70-99) 216 mg/dL (70-99) 236 mg/dL (70-99) White Blood Count 6.0 x10^3/uL (4.0-11.0) Red Blood Count 3.72 x10^6/uL (4.30-5.70) Hemoglobin 11.4 g/dL (13.0-17.5) Hematocrit 35.3 % (39.0-53.0) Mean Corpuscular Volume 95 fL (79-100) Mean Corpuscular Hemoglobin 31 pg (25-35) Mean Corpuscular Hemoglobin Concent 32 g/dL (31-37) Red Cell Distribution Width 15.4 % (11.5-14.5) Platelet Count 148 x10^3/uL (140-400) Neutrophils (%) (Auto) 76 % (31-73) Lymphocytes (%) (Auto) 13 % (24-48) Monocytes (%) (Auto) 10 % (0-9) Eosinophils (%) (Auto) 0 % (0-3) Basophils (%) (Auto) 1 % (0-3) Neutrophils # (Auto) 4.6 x10^3uL (1.8-7.7) Lymphocytes # (Auto) 0.8 x10^3/uL (1.0-4.8) Monocytes # (Auto) 0.6 x10^3/uL (0.0-1.1) Eosinophils # (Auto) 0.0 x10^3/uL (0.0-0.7) Basophils # (Auto) 0.0 x10^3/uL (0.0-0.2) Prothrombin Time 13.7 SEC (11.7-14.0) Prothromb Time International Ratio 1.1 (0.8-1.1) Sodium Level 136 mmol/L (136-145) Potassium Level 5.4 mmol/L (3.5-5.1) Chloride Level 97 mmol/L (98-107) Carbon Dioxide Level 25 mmol/L (21-32) Anion Gap 14 (6-14) Blood Urea Nitrogen 62 mg/dL (8-26) Creatinine 7.6 mg/dL (0.7-1.3) Estimated GFR (Cockcroft-Gault) 9.2 Glucose Level 218 mg/dL (70-99) Calcium Level 7.4 mg/dL (8.5-10.1) Phosphorus Level 8.2 mg/dL (2.6-4.7) Magnesium Level 2.0 mg/dL (1.8-2.4) Albumin 3.3 g/dL (3.4-5.0) Test 03/03/17 14:17 03/03/17 16:27 Glucose (Fingerstick) 188 mg/dL (70-99) 233 mg/dL (70-99) Objective Assessment Left foot infected wound with osteomyelitis. Enterobacter. s/p TMA, 03/02 ESRD/HD h/o Fever DM HTN Plan Plan of Care vanc and cefepime vanc trough 15.2 supportive care off load Patient seen yesterday and examined. Chart reviewed in detail. Case discussed with REGISTERED APPRAISER. Agree with above VINICIO BREAUX APRN Mar 03, 2017 17:20 MORA AQUINO MD Mar 04, 2017 17:35
[2017-03-03] MEDS: WARFARIN 5 MG TABLET. PO SCH (17:47)
[2017-03-03 19:00] VITALS: BP 128/67
[2017-03-03] MEDS: traZODone 50 MG TABLET. PO SCH (22:42)
[2017-03-03] MEDS: ATORVASTATIN CALCIUM 40 MG TABLET. PO SCH (22:42)
[2017-03-03] MEDS: CEFEPIME HCL 1 GM in IV NORMAL SALINE 50ML 50 ML IV SCH (22:43)
[2017-03-03] MEDS: FAMOTIDINE 20 MG TABLET. PO SCH (22:43)
[2017-03-03] MEDS: risperiDONE 0.25 MG TABLET. PO SCH (22:44)
[2017-03-03 23:00] VITALS: BP 104/61
[2017-03-04 03:00] VITALS: BP 104/71
[2017-03-04 06:04] LABS: ALBUMIN 3.4 g/dL (3.4-5.0); CALCIUM 7.9 mg/dL (8.5-10.1); CREATININE 6.1 mg/dL (0.7-1.3); GFR 11.8; MAGNESIUM 2.1 mg/dL (1.8-2.4); PHOSPHORUS 6.5 mg/dL (2.6-4.7); POTASSIUM 4.1 mmol/L (3.5-5.1)
[2017-03-04] MEDS: DEXAMETHASONE 0.1% OPHTH SOLUTION 5ML BOTTLE. OS SCH ×5 (06:05→17:04)
[2017-03-04] MEDS: CLOPIDOGREL BISULFATE 75 MG TABLET PO SCH (06:05)
[2017-03-04] MEDS: LEVOTHYROXINE 175 MCG TABLET PO SCH (06:05)
[2017-03-04] MEDS: CALCIUM CARBONATE 500 MG TABLET PO SCH ×3 (06:05→17:04)
[2017-03-04] MEDS: MORPHINE SULFATE 4 MG/ML DISP.SYRIN. IV PRN (06:14)
[2017-03-04 07:00] VITALS: BP 139/81
[2017-03-04] MEDS: INSULIN ASPART 300 UNITS/3 ML INSULN.PEN SQ SCH ×3 (08:00→17:17)
--- NOTE | 2017-03-04 08:03 | PDOC ---
SUBJECTIVE ROS ESRD Doign OK today CVS: no Orthopnea, no CP RESP: no SOB, no MCCLAIN GI: no Nausea, no Vomiting : no Dysuria, no Urgency OBJECTIVE Vital Signs Vital Signs Date Time Temp Pulse Resp B/P (MAP) Pulse Ox O2 Delivery O2 Flow Rate FiO2 03/04/17 03:00 98.8 75 18 104/71 (82) 100 Room Air 98.8 03/03/17 08:00 2.0 I & 0 Intake and Output 03/04/17 07:00 Intake Total 1475 ml Balance 1475 ml Intake Oral 1475 ml # Voids 1 PHYSICAL EXAM Physical Exam General Appearance: Awake Alert Oriented x 3 In no Distress Eyes: VIsion Unchanged Conjunctiva Normal EN: No EN Drainage Mucous Memb. moist Neck: no JVD no JVP Supple no Thyromegaly CVS: S1 S2 + Murmur No Gallop No Rub no Edema Resp: no Rales no Rhonchi no Acc. Muscle use GI: BS +ve NO Bruit Non Tender Non Distended : no CVA tenderness; no Suprapubic Tenderness DIAGNOSIS/ASSESSMENT Assessment & Plan ESRD: Current fluid and E-lyte status does not necessitate emergent need for dialysis. Will re-evaluate for dialysis in the am and continue on TTSat schedule. Anemia: no Epogen for now; Transfuse with next HD if hgb < 7 HTN: Current BP meds reviewed. See orders for changes. Bone & Mineral: follow phos (trending down with better compliance when in house ) and alter binder regimen as needed DFU - TMT amputation done ^K yest - resolved with HD Rel Hypocal - CaCO3 between meals - may need IV Hectoral added Discussed Plan of Care and prognosis etc. at length with family at bedside COMMENT/RELEVANT DATA Meds Current Medications Medications (Trade) Dose Ordered Sig/[place] Start Time Stop Time Status Last Admin Dose Admin Acetaminophen (Tylenol) 650 mg PRN Q6HRS PRN 02/28/17 19:45 Acetaminophen/ Hydrocodone Bitart (Lortab 7.5/325) 2 tab PRN Q4HRS PRN 03/02/17 17:30 Albuterol Sulfate (Ventolin Neb Soln) 2.5 mg PRN Q4HRS PRN 02/28/17 20:00 Aspirin (Ecotrin) 81 mg [id number] 03/03/17 08:00 03/03/17 08:39 DC Atorvastatin Calcium (Lipitor) 80 mg QHS 02/28/17 21:00 03/03/17 22:42 80 MG Bisacodyl (Dulcolax Supp) 10 mg 1X PRN PRN 03/03/17 16:00 03/04/17 15:59 Bupivacaine HCl/ Epinephrine Bitart (Marcaine-Epi 0.25%-1:[id number]) 50 ml STK-MED ONCE 03/02/17 11:53 03/02/17 11:54 DC Calcium Carbonate/ Glycine (Oscal) 2,000 mg TIDAC 03/03/17 11:30 03/04/17 06:05 2,000 MG Cefepime HCl 1 gm/ Sodium Chloride 50 ml @ 100 mls/hr QHS 02/28/17 23:30 03/03/17 22:43 100 MLS/HR Citalopram Hydrobromide (CeleXA) 20 mg DAILY 03/01/17 09:00 03/03/17 14:30 20 MG Clindamycin Phosphate 50 ml @ 100 mls/hr Q6H 03/02/17 22:30 03/03/17 10:59 Cancel Clopidogrel Bisulfate (Plavix) 75 mg DAILY07 03/01/17 07:00 03/04/17 06:05 75 MG Darbepoetin Jace (Aranesp) 100 mcg WEEKLY 03/07/17 09:00 Dexamethasone (Maxidex) 1 drop Q4HRS 02/28/17 20:00 03/04/17 06:05 1 DROP Dexamethasone Sodium Phosphate (Decadron) 20 mg STK-MED ONCE 03/02/17 17:32 03/02/17 17:33 DC Dextrose (Dextrose 50%-Water Syringe) 12.5 gm PRN Q15MIN PRN 03/02/17 17:30 Diclofenac Sodium (Voltaren) 1 ayaz BID 02/28/17 21:00 03/03/17 22:41 1 AYAZ Diphenhydramine HCl (Benadryl) 25 mg 1X PRN PRN 03/03/17 08:15 03/04/17 08:14 Docusate Sodium (Colace) 100 mg PRN DAILY PRN 02/28/17 19:45 Ergocalciferol (Vitamin D2) 50,000 unit WEEKLY 03/07/17 09:00 Famotidine (Pepcid) 20 mg STK-MED ONCE 03/02/17 15:08 03/02/17 15:09 DC Fentanyl Citrate (Fentanyl 2ml Vial) 25 mcg PRN Q1HR PRN 03/02/17 17:30 Hydralazine HCl (Apresoline) 10 mg PRN Q4HRS PRN 02/28/17 19:45 Hydromorphone HCl (Dilaudid) 0.5 mg PRN Q10MIN PRN 03/02/17 07:00 03/02/17 23:00 DC Info (PHARMACY MONITORING -- do not chart) 1 each PRN DAILY PRN 03/03/17 08:15 UNV Insulin Aspart (NovoLOG) 0-9 UNITS TIDWMEALS 03/01/17 08:00 03/03/17 18:00 5 UNITS Isosorbide Mononitrate (Imdur) 30 mg DAILY 03/01/17 09:00 03/03/17 14:30 30 MG Ketorolac Tromethamine (Acular) 1 drop QID 02/28/17 21:00 03/03/17 22:41 1 DROP Levetiracetam (Keppra) 500 mg BID 02/28/17 21:00 03/03/17 22:43 500 MG Levothyroxine Sodium (Synthroid) 175 mcg DAILY07 03/01/17 07:00 03/04/17 06:05 175 MCG Lidocaine (Lidoderm) 1 patch DAILY 03/01/17 09:00 Lidocaine HCl (Lidocaine Pf 2% Vial) 5 ml STK-MED ONCE 03/02/17 15:08 03/02/17 15:09 DC Lidocaine HCl (Xylocaine-Mpf 1% Vial) 0.5 ml 1X STAT 03/03/17 08:05 03/03/17 08:10 DC 03/03/17 08:20 0.5 ML Magnesium Hydroxide (Milk Of Magnesia) 2,400 mg 1X PRN PRN 03/03/17 06:00 03/04/17 05:59 DC Magnesium Sulfate/ Dextrose 50 ml @ 25 mls/hr PRN DAILY PRN 03/02/17 14:00 Metoprolol Tartrate (Lopressor) 50 mg BID 02/28/17 21:00 03/03/17 22:42 50 MG Morphine Sulfate 4 mg PRN Q2HR PRN 03/02/17 17:30 03/04/17 06:14 4 MG Morphine Sulfate (Ms Contin) 30 mg TID 02/28/17 21:00 03/03/17 22:43 30 MG Moxifloxacin HCl (Vigamox) 1 drop TID 02/28/17 21:00 03/03/17 22:41 1 DROP Nitroglycerin (Nitrostat) 0.4 mg PRN Q5MIN PRN 02/28/17 19:45 Non-Formulary Medication 1 drop Q1HR 02/28/17 20:00 UNV Ondansetron HCl (Zofran) 4 mg PRN Q4HRS PRN 03/02/17 17:30 Oxycodone HCl (Roxicodone) 5 mg PRN Q3HRS PRN 03/02/17 17:30 Phenylephrine HCl 1 mg STK-MED ONCE 03/02/17 17:32 03/02/17 17:33 DC Polyethylene Glycol (miraLAX PACKET) 17 gm PRN DAILY PRN 03/02/17 17:30 Prochlorperazine Edisylate (Compazine) 5 mg PACU PRN PRN 03/02/17 07:00 03/02/17 23:00 DC Propofol 20 ml @ As Directed STK-MED ONCE 03/02/17 15:08 03/02/17 15:09 DC Risperidone (RisperDAL) 0.5 mg QHS 02/28/17 21:00 03/03/17 22:44 0.5 MG Rocuronium [place] (Zemuron) 50 mg STK-MED ONCE 03/02/17 15:45 03/02/17 15:46 DC Senna/Docusate Sodium (Senna Plus) 1 tab DAILY 03/03/17 09:00 03/03/17 14:31 1 TAB Sevoflurane (Ultane) 60 ml STK-MED ONCE 03/02/17 17:32 03/02/17 17:33 DC Sodium Chloride 1,000 ml @ 400 mls/hr Q2H30M PRN 03/03/17 08:08 03/03/17 20:07 DC Sucralfate (Carafate) 1 gm BID 02/28/17 21:00 7/22/17 22:42 1 GM Tramadol HCl (Ultram) 50 mg PRN Q6HRS PRN 02/28/17 19:45 Trazodone HCl (Desyrel) 25 mg QHS 02/28/17 21:00 03/03/17 22:42 25 MG Vancomycin HCl 1 each 1X ONCE 03/06/17 05:00 03/06/17 05:01 Vancomycin HCl (Vanco Per Pharmacy) 1 each PRN DAILY PRN 02/28/17 20:00 03/03/17 13:32 1 EACH Vancomycin HCl 1.25 gm/Sodium Chloride 250 ml @ 167 mls/hr Q48H 03/02/17 23:00 03/02/17 23:00 DC Vancomycin HCl 500 mg/Sodium Chloride 100 ml @ 100 mls/hr QTUTHSA 03/03/17 16:00 Cancel Vancomycin HCl 1 gm/Sodium Chloride 250 ml @ 250 mls/hr QTUTHSA 03/03/17 16:00 03/03/17 18:42 250 MLS/HR Vancomycin HCl 2 gm/Sodium Chloride 500 ml @ 250 mls/hr 1X ONCE 02/28/17 23:30 03/01/17 01:29 DC 02/28/17 23:30 250 MLS/HR Vitamin B Complex/ Vitamin C (Fernanda-Jimmy) 1 tab DAILY 03/01/17 09:00 03/03/17 14:28 1 TAB Warfarin Sodium (Coumadin Per Physician) 1 each PRN DAILY PRN 02/28/17 20:00 03/03/17 13:23 1 EACH Warfarin Sodium (Coumadin) 5 mg DAILY16 03/01/17 16:00 03/03/17 17:47 5 MG Lab Laboratory Tests Test 03/03/17 08:24 03/03/17 14:17 03/03/17 16:27 03/03/17 20:32 White Blood Count 6.0 x10^3/uL (4.0-11.0) Red Blood Count 3.72 x10^6/uL (4.30-5.70) Hemoglobin 11.4 g/dL (13.0-17.5) Hematocrit 35.3 % (39.0-53.0) Mean Corpuscular Volume 95 fL (79-100) Mean Corpuscular Hemoglobin 31 pg (25-35) Mean Corpuscular Hemoglobin Concent 32 g/dL (31-37) Red Cell Distribution Width 15.4 % (11.5-14.5) Platelet Count 148 x10^3/uL (140-400) Neutrophils (%) (Auto) 76 % (31-73) Lymphocytes (%) (Auto) 13 % (24-48) Monocytes (%) (Auto) 10 % (0-9) Eosinophils (%) (Auto) 0 % (0-3) Basophils (%) (Auto) 1 % (0-3) Neutrophils # (Auto) 4.6 x10^3uL (1.8-7.7) Lymphocytes # (Auto) 0.8 x10^3/uL (1.0-4.8) Monocytes # (Auto) 0.6 x10^3/uL (0.0-1.1) Eosinophils # (Auto) 0.0 x10^3/uL (0.0-0.7) Basophils # (Auto) 0.0 x10^3/uL (0.0-0.2) Prothrombin Time 13.7 SEC (11.7-14.0) Prothromb Time International Ratio 1.1 (0.8-1.1) Sodium Level 136 mmol/L (136-145) Potassium Level 5.4 mmol/L (3.5-5.1) Chloride Level 97 mmol/L (98-107) Carbon Dioxide Level 25 mmol/L (21-32) Anion Gap 14 (6-14) Blood Urea Nitrogen 62 mg/dL (8-26) Creatinine 7.6 mg/dL (0.7-1.3) Estimated GFR (Cockcroft-Gault) 9.2 Glucose Level 218 mg/dL (70-99) Calcium Level 7.4 mg/dL (8.5-10.1) Phosphorus Level 8.2 mg/dL (2.6-4.7) Magnesium Level 2.0 mg/dL (1.8-2.4) Albumin 3.3 g/dL (3.4-5.0) Glucose (Fingerstick) 188 mg/dL (70-99) 233 mg/dL (70-99) 145 mg/dL (70-99) Test 03/04/17 04:30 Sodium Level 139 mmol/L (136-145) Potassium Level 4.1 mmol/L (3.5-5.1) Chloride Level 97 mmol/L (98-107) Carbon Dioxide Level 32 mmol/L (21-32) Anion Gap 10 (6-14) Blood Urea Nitrogen 40 mg/dL (8-26) Creatinine 6.1 mg/dL (0.7-1.3) Estimated GFR (Cockcroft-Gault) 11.8 Glucose Level 190 mg/dL (70-99) Calcium Level 7.9 mg/dL (8.5-10.1) Phosphorus Level 6.5 mg/dL (2.6-4.7) Magnesium Level 2.1 mg/dL (1.8-2.4) Albumin 3.4 g/dL (3.4-5.0) MYRON LIANG MD Mar 04, 2017 08:03
[2017-03-04] MEDS: DICLOFENAC SODIUM 1% TOPICAL GEL 100GM TUBE. TP SCH (09:11)
[2017-03-04] MEDS: MORPHINE ER 30 MG TABLET.ER PO SCH ×2 (09:12→17:18)
[2017-03-04] MEDS: CITALOPRAM 20 MG TABLET. PO SCH (09:12)
[2017-03-04] MEDS: METOPROLOL TART IMMED RELEASE 50 MG TABLET. PO SCH ×2 (09:12→21:00)
[2017-03-04] MEDS: levETIRAcetam 500 MG TABLET PO SCH ×2 (09:12→21:00)
[2017-03-04] MEDS: FOLIC/VIT B COMP W-C (RENAL) TABLET. PO SCH (09:13)
[2017-03-04] MEDS: ISOSORBIDE MONONITRATE ER 30 MG TAB.ER.24H PO SCH (09:13)
[2017-03-04] MEDS: SENNOSIDES/DOCUSATE 8.6/50MG TABLET. PO SCH (09:13)
[2017-03-04] MEDS: LIDOCAINE (700MG/PATCH) PATCH. TD SCH (09:14)
[2017-03-04] MEDS: MOXIFLOXACIN 0.5% OPHTH SOLUTION 3ML BOTTLE. OU SCH ×2 (09:15→17:04)
[2017-03-04] MEDS: KETOROLAC TROMETHAMINE 0.5% OPHTH SOLUTION 3ML BOTTLE. OS SCH ×3 (09:15→17:04)
--- NOTE | 2017-03-04 09:51 | PDOC ---
PROGRESS NOTES Chief Complaint Chief Complaint Client: cellulitis Assessment and plan Left foot infected wound with osteomyelitis. Enterobacter. 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 History of Present Illness History of Present Illness Pain doing okay continue current regimen, no fever no chills no nausea no vomiting Vitals Vitals Vital Signs Date Time Temp Pulse Resp B/P (MAP) Pulse Ox O2 Delivery O2 Flow Rate FiO2 03/04/17 09:13 83 139/81 03/04/17 09:12 20 Room Air 03/04/17 07:00 97.6 99 97.6 03/03/17 08:00 2.0 Physical Exam General: Alert, Cooperative Heart: Regular rate, Normal S1, Normal S2 Lungs: Clear Abdomen: Soft Extremities: Other (+1 dorsalis pedis pulse bilaterally) Skin: Other (wound VAC lower extremity) Labs LABS Laboratory Tests Test 03/03/17 14:17 03/03/17 16:27 03/03/17 20:32 03/04/17 04:30 Glucose (Fingerstick) 188 mg/dL (70-99) 233 mg/dL (70-99) 145 mg/dL (70-99) Sodium Level 139 mmol/L (136-145) Potassium Level 4.1 mmol/L (3.5-5.1) Chloride Level 97 mmol/L (98-107) Carbon Dioxide Level 32 mmol/L (21-32) Anion Gap 10 (6-14) Blood Urea Nitrogen 40 mg/dL (8-26) Creatinine 6.1 mg/dL (0.7-1.3) Estimated GFR (Cockcroft-Gault) 11.8 Glucose Level 190 mg/dL (70-99) Calcium Level 7.9 mg/dL (8.5-10.1) Phosphorus Level 6.5 mg/dL (2.6-4.7) Magnesium Level 2.1 mg/dL (1.8-2.4) Albumin 3.4 g/dL (3.4-5.0) Test 03/04/17 08:08 Glucose (Fingerstick) 186 mg/dL (70-99) Assessment and Plan Assessmemt and Plan Problems Medical Problems: (1) End stage renal disease Status: Acute (2) Foot ulcer, left Status: Acute Problems: Comment Review of Relevant I have reviewed the following items lila (where applicable) has been applied. Labs Laboratory Tests Test 03/02/17 10:57 03/02/17 15:06 03/02/17 17:21 03/02/17 20:27 Glucose (Fingerstick) 202 mg/dL (70-99) 176 mg/dL (70-99) 179 mg/dL (70-99) 216 mg/dL (70-99) Test 03/03/17 07:36 03/03/17 08:24 03/03/17 14:17 03/03/17 16:27 Glucose (Fingerstick) 236 mg/dL (70-99) 188 mg/dL (70-99) 233 mg/dL (70-99) White Blood Count 6.0 x10^3/uL (4.0-11.0) Red Blood Count 3.72 x10^6/uL (4.30-5.70) Hemoglobin 11.4 g/dL (13.0-17.5) Hematocrit 35.3 % (39.0-53.0) Mean Corpuscular Volume 95 fL (79-100) Mean Corpuscular Hemoglobin 31 pg (25-35) Mean Corpuscular Hemoglobin Concent 32 g/dL (31-37) Red Cell Distribution Width 15.4 % (11.5-14.5) Platelet Count 148 x10^3/uL (140-400) Neutrophils (%) (Auto) 76 % (31-73) Lymphocytes (%) (Auto) 13 % (24-48) Monocytes (%) (Auto) 10 % (0-9) Eosinophils (%) (Auto) 0 % (0-3) Basophils (%) (Auto) 1 % (0-3) Neutrophils # (Auto) 4.6 x10^3uL (1.8-7.7) Lymphocytes # (Auto) 0.8 x10^3/uL (1.0-4.8) Monocytes # (Auto) 0.6 x10^3/uL (0.0-1.1) Eosinophils # (Auto) 0.0 x10^3/uL (0.0-0.7) Basophils # (Auto) 0.0 x10^3/uL (0.0-0.2) Prothrombin Time 13.7 SEC (11.7-14.0) Prothromb Time International Ratio 1.1 (0.8-1.1) Sodium Level 136 mmol/L (136-145) Potassium Level 5.4 mmol/L (3.5-5.1) Chloride Level 97 mmol/L (98-107) Carbon Dioxide Level 25 mmol/L (21-32) Anion Gap 14 (6-14) Blood Urea Nitrogen 62 mg/dL (8-26) Creatinine 7.6 mg/dL (0.7-1.3) Estimated GFR (Cockcroft-Gault) 9.2 Glucose Level 218 mg/dL (70-99) Calcium Level 7.4 mg/dL (8.5-10.1) Phosphorus Level 8.2 mg/dL (2.6-4.7) Magnesium Level 2.0 mg/dL (1.8-2.4) Albumin 3.3 g/dL (3.4-5.0) Test 03/03/17 20:32 03/04/17 04:30 03/04/17 08:08 Glucose (Fingerstick) 145 mg/dL (70-99) 186 mg/dL (70-99) Sodium Level 139 mmol/L (136-145) Potassium Level 4.1 mmol/L (3.5-5.1) Chloride Level 97 mmol/L (98-107) Carbon Dioxide Level 32 mmol/L (21-32) Anion Gap 10 (6-14) Blood Urea Nitrogen 40 mg/dL (8-26) Creatinine 6.1 mg/dL (0.7-1.3) Estimated GFR (Cockcroft-Gault) 11.8 Glucose Level 190 mg/dL (70-99) Calcium Level 7.9 mg/dL (8.5-10.1) Phosphorus Level 6.5 mg/dL (2.6-4.7) Magnesium Level 2.1 mg/dL (1.8-2.4) Albumin 3.4 g/dL (3.4-5.0) Laboratory Tests Test 03/03/17 14:17 03/03/17 16:27 03/03/17 20:32 03/04/17 04:30 Glucose (Fingerstick) 188 mg/dL (70-99) 233 mg/dL (70-99) 145 mg/dL (70-99) Sodium Level 139 mmol/L (136-145) Potassium Level 4.1 mmol/L (3.5-5.1) Chloride Level 97 mmol/L (98-107) Carbon Dioxide Level 32 mmol/L (21-32) Anion Gap 10 (6-14) Blood Urea Nitrogen 40 mg/dL (8-26) Creatinine 6.1 mg/dL (0.7-1.3) Estimated GFR (Cockcroft-Gault) 11.8 Glucose Level 190 mg/dL (70-99) Calcium Level 7.9 mg/dL (8.5-10.1) Phosphorus Level 6.5 mg/dL (2.6-4.7) Magnesium Level 2.1 mg/dL (1.8-2.4) Albumin 3.4 g/dL (3.4-5.0) Test 03/04/17 08:08 Glucose (Fingerstick) 186 mg/dL (70-99) Microbiology 02/28/17 Blood Culture - Preliminary, Resulted NO GROWTH AFTER 3 DAYS 02/28/17 Gram Stain - Final, Complete Medications Current Medications Morphine Sulfate 4 mg PRN Q15MIN PRN IV/SQ PAIN GREATER THAN 3/10 Last administered on 02/28/17 19:05; Start 02/28/17 at 18:00; Stop 03/01/17 at 17:59 ; Status DC Morphine Sulfate 4 mg PRN Q2HR PRN IV PAIN Last administered on 03/01/17 19:08 ; Start 02/28/17 at 19:15; Stop 03/01/17 at 19:14; Status DC Citalopram Hydrobromide (CeleXA) 20 mg DAILY PO Last administered on 03/04/17 09:12; Start 03/01/17 at 09:00 Clopidogrel Bisulfate (Plavix) 75 mg DAILY07 PO Last administered on 03/04/17 06:05; Start 03/01/17 at 07:00 Darbepoetin Jace (Aranesp) 100 mcg WEEKLY SQ ; Start 03/07/17 at 09:00 Dexamethasone (Maxidex) 1 drop Q4HRS OS Last administered on 03/04/17 09:14; Start 02/28/17 at 20:00 Diclofenac Sodium (Voltaren) 1 ayaz BID TP Last administered on 03/04/17 09:11 ; Start 02/28/17 at 21:00 Ergocalciferol (Vitamin D2) 50,000 unit WEEKLY PO ; Start 03/07/17 at 09:00 Famotidine (Pepcid) 20 mg HS PO Last administered on 03/03/17 22:43; Start at 21:00 Vitamin B Complex/ Vitamin C (Fernanda-Jimmy) 1 tab DAILY PO Last administered on 09:13; Start 03/01/17 at 09:00 Isosorbide Mononitrate (Imdur) 30 mg DAILY PO Last administered on 03/04/17 09 :13; Start 03/01/17 at 09:00 Ketorolac Tromethamine (Acular) 1 drop QID OS Last administered on 03/04/17 09 :15; Start 02/28/17 at 21:00 Levetiracetam (Keppra) 500 mg BID PO Last administered on 03/04/17 09:12; Start 02/28/17 at 21:00 Levothyroxine Sodium (Synthroid) 175 mcg DAILY07 PO Last administered on 06:05; Start 03/01/17 at 07:00 Lidocaine (Lidoderm) 1 patch DAILY TD Last administered on 03/04/17 09:14; Start 03/01/17 at 09:00 Metoprolol Tartrate (Lopressor) 50 mg BID PO Last administered on 03/04/17 09: 12; Start 02/28/17 at 21:00 Morphine Sulfate (Ms Contin) 30 mg TID PO Last administered on 03/04/17 09:12 ; Start 02/28/17 at 21:00 Moxifloxacin HCl (Vigamox) 1 drop TID OU Last administered on 03/04/17 09:15; Start 02/28/17 at 21:00 Nitroglycerin (Nitrostat) 0.4 mg PRN Q5MIN PRN SL CHEST PAIN; Start 02/28/17 at 19:45 Sucralfate (Carafate) 1 gm BID PO Last administered on 03/03/17 22:42; Start 02/28/17 at 21:00 Trazodone HCl (Desyrel) 25 mg QHS PO Last administered on 03/03/17 22:42; Start 02/28/17 at 21:00 Warfarin Sodium (Coumadin) 5 mg DAILY16 PO ; Start 03/01/17 at 16:00; Stop 03/01 at 16:00; Status DC Albuterol Sulfate (Ventolin Neb Soln) 2.5 mg PRN Q4HRS PRN NEB SHORTNESS OF BREATH; Start 02/28/17 at 20:00 Atorvastatin Calcium (Lipitor) 80 mg QHS PO Last administered on 03/03/17 22: 42; Start 02/28/17 at 21:00 Non-Formulary Medication 5 ml DAILY LEFTEYE ; Start 03/01/17 at 09:00; Status UNV Calcium Carbonate/ Glycine (Oscal) 2,000 mg TID PO Last administered on 21:00; Start 03/01/17 at 09:00; Stop 03/03/17 at 09:21; Status DC Non-Formulary Medication 1 drop Q1HR OS ; Start 02/28/17 at 20:00; Status UNV Risperidone (RisperDAL) 0.5 mg QHS PO Last administered on 03/03/17 22:44; Start 02/28/17 at 21:00 Acetaminophen (Tylenol) 650 mg PRN Q6HRS PRN PO FEVER; Start 02/28/17 at 19:45 Ondansetron HCl (Zofran) 4 mg PRN Q6HRS PRN IV NAUSEA/VOMITING Last administered on 03/02/17 08:35; Start 02/28/17 at 19:45; Stop 03/02/17 at 17:27 ; Status DC Morphine Sulfate 2 mg PRN Q2HR PRN IV PAIN Last administered on 03/02/17 12:39 ; Start 02/28/17 at 19:45; Stop 03/02/17 at 17:27; Status DC Tramadol HCl (Ultram) 50 mg PRN Q6HRS PRN PO PAIN; Start 02/28/17 at 19:45 Hydralazine HCl (Apresoline) 10 mg PRN Q4HRS PRN IVP ELEVATED BP, SEE COMMENTS ; Start 02/28/17 at 19:45 Docusate Sodium (Colace) 100 mg PRN DAILY PRN PO CONSTIPATION; Start 02/28/17 at 19:45 Vancomycin HCl 2 gm/Sodium Chloride 500 ml @ 250 mls/hr 1X ONCE IV ; Start at 20:30; Stop 02/28/17 at 22:29; Status Cancel Vancomycin HCl (Vanco Per Pharmacy) 1 each PRN DAILY PRN MC SEE COMMENTS Last administered on 03/03/17 13:32; Start 02/28/17 at 20:00 Cefepime HCl 1 gm/ Sodium Chloride 50 ml @ 100 mls/hr Q12HR IV ; Start at 20:30; Status Cancel Warfarin Sodium (Coumadin Per Physician) 1 each PRN DAILY PRN MC SEE COMMENTS Last administered on 03/03/17 13:23; Start 02/28/17 at 20:00 Vancomycin HCl 1.25 gm/Sodium Chloride 250 ml @ 167 mls/hr Q48H IV ; Start at 23:00; Stop 03/02/17 at 23:00; Status DC Vancomycin HCl 1 each 1X ONCE MC ; Start 03/04/17 at 22:30; Stop 03/04/17 at 22 :30; Status DC Cefepime HCl 1 gm/ Sodium Chloride 50 ml @ 100 mls/hr QHS IV Last administered on 03/03/17 22:43; Start 02/28/17 at 23:30 Vancomycin HCl 2 gm/Sodium Chloride 500 ml @ 250 mls/hr 1X ONCE IV Last administered on 02/28/17 23:30; Start 02/28/17 at 23:30; Stop 03/01/17 at 01:29 ; Status DC Insulin Aspart (NovoLOG) 0-9 UNITS TIDWMEALS SQ Last administered on 03/03/17 18:00; Start 03/01/17 at 08:00 Dextrose (Dextrose 50%-Water Syringe) 12.5 gm PRN Q15MIN PRN IV SEE COMMENTS; Start 03/01/17 at 03:00; Status Cancel Vancomycin HCl 1 each 1X ONCE MC Last administered on 03/02/17 05:00; Start 03/02/17 at 05:00; Stop 03/02/17 at 05:01; Status DC Sodium Chloride 1,000 ml @ 1,000 mls/hr Q1H PRN IV hypotension; Start 03/01/17 at 12:02; Stop 03/01/17 at 18:01; Status DC Diphenhydramine HCl (Benadryl) 25 mg 1X PRN PRN IV ITCHING; Start 03/01/17 at 12:15; Stop 03/02/17 at 12:14; Status DC Diphenhydramine HCl (Benadryl) 25 mg 1X PRN PRN IV ITCHING; Start 03/01/17 at 12:15; Stop 03/02/17 at 12:14; Status DC Sodium Chloride 1,000 ml @ 400 mls/hr Q2H30M PRN IV PATENCY; Start 03/01/17 at 12:02; Stop 03/02/17 at 00:01; Status DC Info (PHARMACY MONITORING -- do not chart) 1 each PRN DAILY PRN MC SEE COMMENTS ; Start 03/01/17 at 12:15 Warfarin Sodium (Coumadin) 7.5 mg 1X WARF ONCE PO ; Start 03/01/17 at 16:00; Stop 03/01/17 at 16:01; Status Cancel Warfarin Sodium (Coumadin) 5 mg DAILY16 PO Last administered on 03/03/17 17:47 ; Start 03/01/17 at 16:00 Lidocaine HCl (Xylocaine-Mpf 1% Vial) 0.5 ml 1X STAT ID Last administered on 14:31; Start 03/01/17 at 13:54; Stop 03/01/17 at 13:56; Status DC Fentanyl Citrate (Fentanyl 2ml Vial) 25 mcg PRN Q5MIN PRN IV MILD PAIN; Start 03/02/17 at 07:00; Stop 03/02/17 at 23:00; Status DC Fentanyl Citrate (Fentanyl 2ml Vial) 50 mcg PRN Q5MIN PRN IV MODERATE PAIN; Start 03/02/17 at 07:00; Stop 03/02/17 at 23:00; Status DC Morphine Sulfate 1 mg PRN Q10MIN PRN IV SEVERE PAIN; Start 03/02/17 at 07:00; Stop 03/02/17 at 23:00; Status DC Lidocaine HCl 2 ml PRN 1X PRN ID PRIOR TO IV START; Start 03/02/17 at 07:00; Stop 03/02/17 at 23:00; Status DC Hydromorphone HCl (Dilaudid) 0.5 mg PRN Q10MIN PRN IV SEV PAIN, Second choice; Start 03/02/17 at 07:00; Stop 03/02/17 at 23:00; Status DC Prochlorperazine Edisylate (Compazine) 5 mg PACU PRN PRN IV NAUSEA, MRX1; Start 03/02/17 at 07:00; Stop 03/02/17 at 23:00; Status DC Sodium Chloride 1,000 ml @ 0 mls/hr Q0M IV ; Start 03/02/17 at 13:45 Vancomycin HCl 500 mg/Sodium Chloride 100 ml @ 100 mls/hr QTUTHSA IV ; Start at 16:00; Status Cancel Bupivacaine HCl/ Epinephrine Bitart (Marcaine-Epi 0.25%-[id number]) 50 ml STK-MED ONCE .ROUTE ; Start 03/02/17 at 11:53; Stop 03/02/17 at 11:54; Status DC Magnesium Sulfate/ Dextrose 50 ml @ 25 mls/hr PRN DAILY PRN IV for Mag < 1.7 on am labs; Start 03/02/17 at 14:00 Propofol 20 ml @ As Directed STK-MED ONCE IV ; Start 03/02/17 at 15:08; Stop at 15:09; Status DC Famotidine (Pepcid) 20 mg STK-MED ONCE .ROUTE ; Start 03/02/17 at 15:08; Stop at 15:09; Status DC Lidocaine HCl (Lidocaine Pf 2% Vial) 5 ml STK-MED ONCE .ROUTE ; Start 03/02/17 at 15:08; Stop 03/02/17 at 15:09; Status DC Ondansetron HCl (Zofran) 4 mg STK-MED ONCE .ROUTE ; Start 03/02/17 at 15:08; Stop 03/02/17 at 15:09; Status DC Fentanyl Citrate (Fentanyl 2ml Vial) 100 mcg STK-MED ONCE .ROUTE ; Start at 15:45; Stop 03/02/17 at 15:46; Status DC Rocuronium [place] (Zemuron) 50 mg STK-MED ONCE .ROUTE ; Start 03/02/17 at 15:45 ; Stop 03/02/17 at 15:46; Status DC Clindamycin Phosphate 0 ml @ As Directed STK-MED ONCE IV ; Start 03/02/17 at 15: 48; Stop 03/02/17 at 15:49; Status DC Clindamycin Phosphate 50 ml @ 100 mls/hr 1X ONCE IV Last administered on 03/02t 16:27; Start 03/02/17 at 17:00; Stop 03/02/17 at 17:29; Status DC Oxycodone HCl (Roxicodone) 5 mg PRN Q3HRS PRN PO PAIN; Start 03/02/17 at 17:30 Morphine Sulfate 2 mg PRN Q1HR PRN IV PAIN; Start 03/02/17 at 17:30 Fentanyl Citrate (Fentanyl 2ml Vial) 25 mcg PRN Q1HR PRN IV PAIN; Start at 17:30 Senna/Docusate Sodium (Senna Plus) 1 tab DAILY PO Last administered on t 09:13; Start 03/03/17 at 09:00 Polyethylene Glycol (miraLAX PACKET) 17 gm PRN DAILY PRN PO CONSTIPATION; Start 03/02/17 at 17:30 Clindamycin Phosphate 50 ml @ 100 mls/hr Q6H IV ; Start 03/02/17 at 22:30; Stop 03/03/17 at 10:59; Status Cancel Ondansetron HCl (Zofran) 4 mg PRN Q4HRS PRN IV NAUSEA/VOMITING; Start 03/02/17 at 17:30 Aspirin (Ecotrin) 81 mg DAILYWBKFT PO ; Start 03/03/17 at 08:00; Stop 03/03/17 at 08:39; Status DC Magnesium Hydroxide (Milk Of Magnesia) 2,400 mg 1X PRN PRN PO CONSTIPATION; Start 03/03/17 at 06:00; Stop 03/04/17 at 05:59; Status DC Bisacodyl (Dulcolax Supp) 10 mg 1X PRN PRN GA CONSTIPATION; Start 03/03/17 at 16:00; Stop 03/04/17 at 15:59 Acetaminophen/ Hydrocodone Bitart (Lortab 7.5/325) 1 tab PRN Q4HRS PRN PO PAIN ; Start 03/02/17 at 17:30 Morphine Sulfate 4 mg PRN Q2HR PRN IV PAIN Last administered on 03/04/17 06:14 ; Start 03/02/17 at 17:30 Acetaminophen/ Hydrocodone Bitart (Lortab 7.5/325) 2 tab PRN Q4HRS PRN PO PAIN ; Start 03/02/17 at 17:30 Dextrose (Dextrose 50%-Water Syringe) 12.5 gm PRN Q15MIN PRN IV SEE COMMENTS; Start 03/02/17 at 17:30 Sevoflurane (Ultane) 60 ml STK-MED ONCE IH ; Start 03/02/17 at 17:32; Stop 03/02 at 17:33; Status DC Dexamethasone Sodium Phosphate (Decadron) 20 mg STK-MED ONCE .ROUTE ; Start at 17:32; Stop 03/02/17 at 17:33; Status DC Phenylephrine HCl 1 mg STK-MED ONCE IV ; Start 03/02/17 at 17:32; Stop 03/02/17 at 17:33; Status DC Vancomycin HCl 1 gm/Sodium Chloride 250 ml @ 250 mls/hr QTUTHSA IV Last administered on 03/03/17 18:42; Start 03/03/17 at 16:00 Vancomycin HCl 1 each 1X ONCE MC ; Start 03/06/17 at 05:00; Stop 03/06/17 at 05 :01 Lidocaine HCl (Xylocaine-Mpf 1% Vial) 0.5 ml 1X STAT ID Last administered on 08:20; Start 03/03/17 at 08:05; Stop 03/03/17 at 08:10; Status DC Sodium Chloride 1,000 ml @ 1,000 mls/hr Q1H PRN IV hypotension; Start 03/03/17 at 08:08; Stop 03/03/17 at 14:07; Status DC Diphenhydramine HCl (Benadryl) 25 mg 1X PRN PRN IV ITCHING; Start 03/03/17 at 08:15; Stop 03/04/17 at 08:14; Status DC Diphenhydramine HCl (Benadryl) 25 mg 1X PRN PRN IV ITCHING; Start 03/03/17 at 08:15; Stop 03/04/17 at 08:14; Status DC Sodium Chloride 1,000 ml @ 400 mls/hr Q2H30M PRN IV PATENCY; Start 03/03/17 at 08:08; Stop 03/03/17 at 20:07; Status DC Info (PHARMACY MONITORING -- do not chart) 1 each PRN DAILY PRN MC SEE COMMENTS ; Start 03/03/17 at 08:15; Status UNV Info (PHARMACY MONITORING -- do not chart) 1 each PRN DAILY PRN MC SEE COMMENTS ; Start 03/03/17 at 08:15; Status UNV Calcium Carbonate/ Glycine (Oscal) 2,000 mg TIDAC PO Last administered on t 06:05; Start 03/03/17 at 11:30 Active Scripts Active Levetiracetam 500 Mg Tablet 500 Mg PO BID Morphine Sulfate Er (Morphine Sulfate) 30 Mg Tablet.er 30 Mg PO TID Lidoderm (Lidocaine) 700 Mg Adh..patch 1 Patch TD DAILY Ventolin Hfa Inhaler (Albuterol Sulfate) 18 Gm Hfa.aer.ad 2 Puff INH Q4HRS PRN Metoprolol Tartrate 50 Mg Tablet 50 Mg PO BID Synthroid (Levothyroxine Sodium) 175 Mcg Tablet 175 Mcg PO DAILY07 Isosorbide Mononitrate Er (Isosorbide Mononitrate) 30 Mg Tab.er.24h 30 Mg PO DAILY Reported Ketorolac Tromethamine 5 Ml Drops 1 Drop OS QID Maxidex (Dexamethasone) 5 Ml Drops.susp 1 Drop OS Q4HRS Vigamox (Moxifloxacin Hcl) 3 Ml Drops 1 Drop EACHEYE TID Ropinirole Hcl 0.25 Mg Tablet 0.25 Mg PO Oxycodone Hcl 5 Mg Capsule 5 Mg PO PRN Midodrine Hcl 5 Mg Tablet 5 Mg PO Citalopram Hbr (Citalopram Hydrobromide) 20 Mg Tablet 1 Tab PO DAILY Trazodone Hcl 50 Mg Tablet 0.5-1 Tab PO QHS Risperidone 0.5 Mg Tablet 1 Tab PO QHS Bromsite (Bromfenac Sodium) 5 Ml Drops 5 Ml LEFTEYE DAILY Vigamox (Moxifloxacin Hcl) 3 Ml Drops 1 Drop LEFTEYE TID Prednisolone Acetate 5 Ml Drops.susp 1 Drop OS Q1HR Famotidine 20 Mg Tablet 20 Mg PO HS Coumadin (Warfarin Sodium) 5 Mg Tablet 1 Tab PO DAILY Nephro-Jimmy Tablet (Folic Acid/Vitamin B Comp W-C) 0.8 Mg Tablet 1 Tab PO DAILY Carafate (Sucralfate) 1 Gm Tablet 1 Tab PO BID Nitrostat (Nitroglycerin) 0.4 Mg Tab.subl 0.4 Mg SL PRN Q5MIN PRN Calcium Carbonate 500 Mg/5 Ml Oral.susp 2,000 Mg PO TID Aranesp Syringe (Darbepoetin Jace In Polysorbat) 100 Mcg/0.5 Ml Disp.syrin 100 Mcg SQ WEEKLY Voltaren (Diclofenac Sodium) 100 Gm Gel..gram. 1 Gm TP BID Clopidogrel (Clopidogrel Bisulfate) 75 Mg Tablet 75 Mg PO DAILY07 Renvela (Sevelamer Carbonate) 800 Mg Tablet Tab PO TID Vitamin D2 (Ergocalciferol (Vitamin D2)) 50,000 Unit Capsule 50,000 Unit PO WEEKLY Atorvastatin Calcium 80 Mg Tablet 80 Mg PO HS Vitals/I & O Vital Sign - Last 24 Hours 03/03/17 03/03/17 03/03/17 03/03/17 14:30 14:30 14:32 14:35 Pulse 86 86 Resp 20 20 B/P (MAP) 149/82 149/82 O2 Delivery Room Air Room Air 03/03/17 03/03/17 03/03/17 03/03/17 15:00 17:48 18:18 18:18 Temp 98.1 98.1 Pulse 105 Resp 20 20 18 18 B/P (MAP) 131/77 (95) Pulse Ox 100 O2 Delivery Room Air Room Air Room Air Room Air 03/03/17 03/03/17 03/03/17 03/03/17 19:00 20:00 22:42 23:00 Temp 99.3 99.5 99.3 99.5 Pulse 93 93 85 Resp 18 18 B/P (MAP) 128/67 (87) 128/67 104/61 (75) Pulse Ox 98 96 O2 Delivery Room Air Room Air Room Air 03/04/17 03/04/17 03/04/17 03/04/17 03:00 07:00 09:12 09:12 Temp 98.8 97.6 98.8 97.6 Pulse 75 83 83 Resp 18 20 20 B/P (MAP) 104/71 (82) 139/81 (100) 139/81 Pulse Ox 100 99 O2 Delivery Room Air Room Air Room Air 03/04/17 09:13 Pulse 83 B/P (MAP) 139/81 Intake and Output 03/03/17 03/03/17 03/04/17 15:00 23:00 07:00 Intake Total 1475 ml Balance 1475 ml KEITH BUCK MD Mar 04, 2017 09:51
[2017-03-04 11:00] VITALS: BP 108/63
--- NOTE | 2017-03-04 11:54 | PDOC ---
Infectious Disease Note Subjective Subjective Pain with movement No fever/chills No N/V/D Vital Sign Vital Signs Vital Signs Date Time Temp Pulse Resp B/P (MAP) Pulse Ox O2 Delivery O2 Flow Rate FiO2 03/04/17 09:13 83 139/81 03/04/17 09:12 20 Room Air 03/04/17 07:00 97.6 99 97.6 03/03/17 08:00 2.0 Physical Exam PHYSICAL EXAM GENERAL: up in recliner LUNGS: Clear HEART: S1S2 EXT: No edema. Left foot wound vac in place SKIN: No rash LEJ. clean Labs Lab Laboratory Tests Test 03/03/17 14:17 03/03/17 16:27 03/03/17 20:32 03/04/17 04:30 Glucose (Fingerstick) 188 mg/dL (70-99) 233 mg/dL (70-99) 145 mg/dL (70-99) Sodium Level 139 mmol/L (136-145) Potassium Level 4.1 mmol/L (3.5-5.1) Chloride Level 97 mmol/L (98-107) Carbon Dioxide Level 32 mmol/L (21-32) Anion Gap 10 (6-14) Blood Urea Nitrogen 40 mg/dL (8-26) Creatinine 6.1 mg/dL (0.7-1.3) Estimated GFR (Cockcroft-Gault) 11.8 Glucose Level 190 mg/dL (70-99) Calcium Level 7.9 mg/dL (8.5-10.1) Phosphorus Level 6.5 mg/dL (2.6-4.7) Magnesium Level 2.1 mg/dL (1.8-2.4) Albumin 3.4 g/dL (3.4-5.0) Test 03/04/17 08:08 Glucose (Fingerstick) 186 mg/dL (70-99) Micro BLOOD CULTURE Preliminary NO GROWTH AFTER 3 DAYS Objective Assessment Left foot infected wound with osteomyelitis. Enterobacter. s/p TMA, closed 03/02 ESRD/HD h/o Fever DM HTN Plan Plan of Care vanc and cefepime vanc trough 15.2 supportive care off load Patient seen and examined. Chart reviewed in detail. Case discussed with PRIVATE DETECTIVE. Agree with above in addition to the following DC Vanco Check ESR and CRP in am VINICIO BREAUX APRN Mar 04, 2017 11:54 MORA AQUINO MD Mar 04, 2017 17:35
[2017-03-04] MEDS: SUCRALFATE 1 GM TABLET. PO SCH (12:48)
[2017-03-04] MEDS: VANCOMYCIN PER PHARMACY MC PRN (13:17)
--- NOTE | 2017-03-04 13:28 | PDOC ---
PROGRESS NOTES Subjective Subjective Problems overnight: none Objective Vital Signs Vital Signs Date Time Temp Pulse Resp B/P (MAP) Pulse Ox O2 Delivery O2 Flow Rate FiO2 03/04/17 11:00 97.3 70 20 108/63 (78) 100 Room Air 97.3 03/03/17 08:00 2.0 Physical Exam wound vac intact and productive. foot appears benign after TMA Labs Laboratory Tests Test 03/02/17 15:06 03/02/17 17:21 03/02/17 20:27 03/03/17 07:36 Glucose (Fingerstick) 176 mg/dL (70-99) 179 mg/dL (70-99) 216 mg/dL (70-99) 236 mg/dL (70-99) Test 03/03/17 08:24 03/03/17 14:17 03/03/17 16:27 03/03/17 20:32 White Blood Count 6.0 x10^3/uL (4.0-11.0) Red Blood Count 3.72 x10^6/uL (4.30-5.70) Hemoglobin 11.4 g/dL (13.0-17.5) Hematocrit 35.3 % (39.0-53.0) Mean Corpuscular Volume 95 fL (79-100) Mean Corpuscular Hemoglobin 31 pg (25-35) Mean Corpuscular Hemoglobin Concent 32 g/dL (31-37) Red Cell Distribution Width 15.4 % (11.5-14.5) Platelet Count 148 x10^3/uL (140-400) Neutrophils (%) (Auto) 76 % (31-73) Lymphocytes (%) (Auto) 13 % (24-48) Monocytes (%) (Auto) 10 % (0-9) Eosinophils (%) (Auto) 0 % (0-3) Basophils (%) (Auto) 1 % (0-3) Neutrophils # (Auto) 4.6 x10^3uL (1.8-7.7) Lymphocytes # (Auto) 0.8 x10^3/uL (1.0-4.8) Monocytes # (Auto) 0.6 x10^3/uL (0.0-1.1) Eosinophils # (Auto) 0.0 x10^3/uL (0.0-0.7) Basophils # (Auto) 0.0 x10^3/uL (0.0-0.2) Prothrombin Time 13.7 SEC (11.7-14.0) Prothromb Time International Ratio 1.1 (0.8-1.1) Sodium Level 136 mmol/L (136-145) Potassium Level 5.4 mmol/L (3.5-5.1) Chloride Level 97 mmol/L (98-107) Carbon Dioxide Level 25 mmol/L (21-32) Anion Gap 14 (6-14) Blood Urea Nitrogen 62 mg/dL (8-26) Creatinine 7.6 mg/dL (0.7-1.3) Estimated GFR (Cockcroft-Gault) 9.2 Glucose Level 218 mg/dL (70-99) Calcium Level 7.4 mg/dL (8.5-10.1) Phosphorus Level 8.2 mg/dL (2.6-4.7) Magnesium Level 2.0 mg/dL (1.8-2.4) Albumin 3.3 g/dL (3.4-5.0) Glucose (Fingerstick) 188 mg/dL (70-99) 233 mg/dL (70-99) 145 mg/dL (70-99) Test 03/04/17 04:30 03/04/17 08:08 03/04/17 11:46 Sodium Level 139 mmol/L (136-145) Potassium Level 4.1 mmol/L (3.5-5.1) Chloride Level 97 mmol/L (98-107) Carbon Dioxide Level 32 mmol/L (21-32) Anion Gap 10 (6-14) Blood Urea Nitrogen 40 mg/dL (8-26) Creatinine 6.1 mg/dL (0.7-1.3) Estimated GFR (Cockcroft-Gault) 11.8 Glucose Level 190 mg/dL (70-99) Calcium Level 7.9 mg/dL (8.5-10.1) Phosphorus Level 6.5 mg/dL (2.6-4.7) Magnesium Level 2.1 mg/dL (1.8-2.4) Albumin 3.4 g/dL (3.4-5.0) Glucose (Fingerstick) 186 mg/dL (70-99) 240 mg/dL (70-99) Laboratory Tests Test 03/03/17 14:17 03/03/17 16:27 03/03/17 20:32 03/04/17 04:30 Glucose (Fingerstick) 188 mg/dL (70-99) 233 mg/dL (70-99) 145 mg/dL (70-99) Sodium Level 139 mmol/L (136-145) Potassium Level 4.1 mmol/L (3.5-5.1) Chloride Level 97 mmol/L (98-107) Carbon Dioxide Level 32 mmol/L (21-32) Anion Gap 10 (6-14) Blood Urea Nitrogen 40 mg/dL (8-26) Creatinine 6.1 mg/dL (0.7-1.3) Estimated GFR (Cockcroft-Gault) 11.8 Glucose Level 190 mg/dL (70-99) Calcium Level 7.9 mg/dL (8.5-10.1) Phosphorus Level 6.5 mg/dL (2.6-4.7) Magnesium Level 2.1 mg/dL (1.8-2.4) Albumin 3.4 g/dL (3.4-5.0) Test 03/04/17 08:08 03/04/17 11:46 Glucose (Fingerstick) 186 mg/dL (70-99) 240 mg/dL (70-99) Assessment Assessment s/p TMA for osteomyelitis. Would continue abx for 4 wks or per ID. Nonweightbearing for 4 weeks and keep sutures intact 3-4 weeks. Plan is carbon fiber footplate with toe spacer prosthesis at 6 weeks postop. Problems: Plan Plan of Care as above MARSHA TENORIO MD Mar 04, 2017 13:28
[2017-03-04 15:00] VITALS: BP_SYST 90
[2017-03-04] MEDS: WARFARIN 5 MG TABLET. PO SCH (17:03)
[2017-03-04 19:00] VITALS: BP 95/62
[2017-03-04] MEDS: ONDANSETRON PF 4 MG/2 ML VIAL. IV PRN (22:26)
[2017-03-04 23:00] VITALS: BP 97/56
[2017-03-05] MEDS: SUCRALFATE 1 GM TABLET. PO SCH ×3 (00:20→21:09)
[2017-03-05] MEDS: DICLOFENAC SODIUM 1% TOPICAL GEL 100GM TUBE. TP SCH ×3 (00:20→21:12)
[2017-03-05] MEDS: ATORVASTATIN CALCIUM 40 MG TABLET. PO SCH ×2 (00:20→21:10)
[2017-03-05] MEDS: risperiDONE 0.25 MG TABLET. PO SCH ×2 (00:21→21:13)
[2017-03-05] MEDS: traZODone 50 MG TABLET. PO SCH ×2 (00:21→21:11)
[2017-03-05] MEDS: KETOROLAC TROMETHAMINE 0.5% OPHTH SOLUTION 3ML BOTTLE. OS SCH ×5 (00:22→21:09)
[2017-03-05] MEDS: MORPHINE ER 30 MG TABLET.ER PO SCH ×4 (00:22→21:11)
[2017-03-05] MEDS: MOXIFLOXACIN 0.5% OPHTH SOLUTION 3ML BOTTLE. OU SCH ×4 (00:22→21:09)
[2017-03-05] MEDS: DEXAMETHASONE 0.1% OPHTH SOLUTION 5ML BOTTLE. OS SCH ×7 (00:22→21:09)
[2017-03-05] MEDS: FAMOTIDINE 20 MG TABLET. PO SCH ×2 (00:22→21:10)
[2017-03-05] MEDS: CEFEPIME HCL 1 GM in IV NORMAL SALINE 50ML 50 ML IV SCH (00:22)
[2017-03-05] MEDS: MORPHINE SULFATE 4 MG/ML DISP.SYRIN. IV PRN ×2 (00:23→06:42)
[2017-03-05 03:00] VITALS: BP 113/58
[2017-03-05] MEDS: CLOPIDOGREL BISULFATE 75 MG TABLET PO SCH (06:42)
[2017-03-05] MEDS: LEVOTHYROXINE 175 MCG TABLET PO SCH (06:42)
[2017-03-05] MEDS: CALCIUM CARBONATE 500 MG TABLET PO SCH ×3 (06:42→17:36)
[2017-03-05 07:00] VITALS: BP 98/59
[2017-03-05] MEDS: INSULIN ASPART 300 UNITS/3 ML INSULN.PEN SQ SCH ×3 (08:00→17:40)
[2017-03-05 08:36] LABS: ALBUMIN 3.3 g/dL (3.4-5.0); CREATININE 8.3 mg/dL (0.7-1.3); GFR 8.3
[2017-03-05 08:37] LABS: PHOSPHORUS 9.7 mg/dL (2.6-4.7)
[2017-03-05] MEDS: SENNOSIDES/DOCUSATE 8.6/50MG TABLET. PO SCH (08:45)
[2017-03-05] MEDS: FOLIC/VIT B COMP W-C (RENAL) TABLET. PO SCH (08:45)
[2017-03-05] MEDS: levETIRAcetam 500 MG TABLET PO SCH ×2 (08:45→21:10)
[2017-03-05] MEDS: CITALOPRAM 20 MG TABLET. PO SCH (08:46)
[2017-03-05] MEDS: ISOSORBIDE MONONITRATE ER 30 MG TAB.ER.24H PO SCH (08:47)
[2017-03-05] MEDS: METOPROLOL TART IMMED RELEASE 50 MG TABLET. PO SCH ×2 (08:47→21:14)
[2017-03-05] MEDS: LIDOCAINE (700MG/PATCH) PATCH. TD SCH (08:50)
[2017-03-05 11:00] VITALS: BP 106/67
[2017-03-05] MEDS: ALBUTEROL SULFATE 2.5 MG/3 ML NEBU. NEB PRN (11:02)
--- NOTE | 2017-03-05 11:06 | PDOC ---
Infectious Disease Note Subjective Subjective Feeling alright No concerns ROS ROS GEN: Denies fevers, chills, sweats CV: Denies chest pain RESP: Denies shortness of air, cough GI: Denies n/v/d Vital Sign Vital Signs Vital Signs Date Time Temp Pulse Resp B/P (MAP) Pulse Ox O2 Delivery O2 Flow Rate FiO2 03/05/17 08:48 Room Air 03/05/17 08:47 98 98/59 03/05/17 07:00 98.4 20 91 98.4 03/04/17 08:00 2.0 Physical Exam PHYSICAL EXAM GENERAL: Alert, relaxed appearance LUNGS: Clear HEART: S1S2 EXT: No edema. Left foot wound vac in place SKIN: No rash CRITICAL CARE NURSE PRACTITIONER: Alert and oriented x 3 LEJ. clean Labs Lab Laboratory Tests Test 03/04/17 11:46 03/04/17 16:17 03/04/17 21:54 03/05/17 07:15 Glucose (Fingerstick) 240 mg/dL (70-99) 195 mg/dL (70-99) 226 mg/dL (70-99) Erythrocyte Sedimentation Rate 110 (0-15) Sodium Level 138 mmol/L (136-145) Potassium Level 5.0 mmol/L (3.5-5.1) Chloride Level 97 mmol/L (98-107) Carbon Dioxide Level 32 mmol/L (21-32) Anion Gap 9 (6-14) Blood Urea Nitrogen 54 mg/dL (8-26) Creatinine 8.3 mg/dL (0.7-1.3) Estimated GFR (Cockcroft-Gault) 8.3 Glucose Level 156 mg/dL (70-99) Calcium Level 8.0 mg/dL (8.5-10.1) Phosphorus Level 9.7 mg/dL (2.6-4.7) Magnesium Level 2.4 mg/dL (1.8-2.4) C-Reactive Protein, Quantitative 48.4 mg/L (0-3.3) Albumin 3.3 g/dL (3.4-5.0) Test 03/05/17 07:34 Glucose (Fingerstick) 158 mg/dL (70-99) Micro BLOOD CULTURE Preliminary NO GROWTH AFTER 4 DAYS Objective Assessment Left foot infected wound with osteomyelitis. Enterobacter. s/p TMA, closed 03/02 ESRD/HD h/o Fever DM HTN h/o VRE Plan Plan of Care cefepime off load ESR 100 CRP 48.4 Will address duration of abx with Dr. Leonor Liang Attending Co-Sign The patient was seen and interviewed as well as examined at the bedside. The chart was reviewed. The case was discussed. Agree with the plan of care. post surgery , incision closed, no open wound, change antibiotics to po VINICIO Jones APRN Mar 05, 2017 11:06 CONCETTA LIANG MD Mar 05, 2017 15:37
--- NOTE | 2017-03-05 11:31 | PDOC ---
Renal-Progress Notes Subjective Notes Notes NONE History of Present Illness Hx of present illness NO CHANGE Vitals Vitals Vital Signs Date Time Temp Pulse Resp B/P (MAP) Pulse Ox O2 Delivery O2 Flow Rate FiO2 03/05/17 11:04 96 Room Air 03/05/17 08:47 98 98/59 03/05/17 07:00 98.4 20 98.4 03/04/17 08:00 2.0 Weight Weight [ ] I.O. Intake and Output Intake and Output 03/05/17 07:00 Intake Total 1080 ml Balance 1080 ml Intake Oral 1080 ml # Voids 1 Labs Labs Laboratory Tests Test 03/04/17 11:46 03/04/17 16:17 03/04/17 21:54 03/05/17 07:15 Glucose (Fingerstick) 240 mg/dL (70-99) 195 mg/dL (70-99) 226 mg/dL (70-99) Erythrocyte Sedimentation Rate 110 (0-15) Sodium Level 138 mmol/L (136-145) Potassium Level 5.0 mmol/L (3.5-5.1) Chloride Level 97 mmol/L (98-107) Carbon Dioxide Level 32 mmol/L (21-32) Anion Gap 9 (6-14) Blood Urea Nitrogen 54 mg/dL (8-26) Creatinine 8.3 mg/dL (0.7-1.3) Estimated GFR (Cockcroft-Gault) 8.3 Glucose Level 156 mg/dL (70-99) Calcium Level 8.0 mg/dL (8.5-10.1) Phosphorus Level 9.7 mg/dL (2.6-4.7) Magnesium Level 2.4 mg/dL (1.8-2.4) C-Reactive Protein, Quantitative 48.4 mg/L (0-3.3) Albumin 3.3 g/dL (3.4-5.0) Test 03/05/17 07:34 Glucose (Fingerstick) 158 mg/dL (70-99) Micro Micro Microbiology 02/28/17 Blood Culture - Preliminary, Resulted NO GROWTH AFTER 4 DAYS 02/28/17 Gram Stain - Final, Complete Review of Systems Constitutional: yes: weakness, alert, oriented Pulmonary: Yes no symptom reported Gastrointestional: Yes: no symptom reported Genitourinary: Yes: no symptom reported Musculoskeletal: Yes: no symptom reported Psychiatric/Neurological: Yes: no symptom reported Endocrine: Yes: no symptom reported Physical Exam General Appearance: no apparent distress Skin: warm Respiratory: bilateral CTA Heart: S1S2, RRR Abdomen: soft, bowel sounds present Genitourinary: bladder flat Extremities: atrophy Neurology: alert Musculoskeletal: Osteoarthritis Assessment Assessment IMP ESRD ANEMIA DM II HTN S/P TMA PLAN ANTIBIOTICS HD TOMORROW LABS IN AM CONT KEITH GRACE VILLEDA MD Mar 05, 2017 11:31
--- NOTE | 2017-03-05 12:00 | PDOC ---
Subjective: Subjective: "Doing alright." Objective: Objective: D/w RN - confused/drowsy today, can't stay awake long enough to eat. Sometimes has right-sided pain, sometimes not - trying patch and Voltaren. Vital Signs: Vital Signs Date Time Temp Pulse Resp B/P (MAP) Pulse Ox O2 Delivery O2 Flow Rate FiO2 03/05/17 11:04 96 Room Air 03/05/17 08:47 98 98/59 03/05/17 07:00 98.4 20 98.4 03/04/17 08:00 2.0 Labs: Laboratory Tests Test 03/04/17 16:17 03/04/17 21:54 03/05/17 07:15 03/05/17 07:34 Glucose (Fingerstick) 195 mg/dL 226 mg/dL 158 mg/dL Erythrocyte Sedimentation Rate 110 Sodium Level 138 mmol/L Potassium Level 5.0 mmol/L Chloride Level 97 mmol/L Carbon Dioxide Level 32 mmol/L Anion Gap 9 Blood Urea Nitrogen 54 mg/dL Creatinine 8.3 mg/dL Estimated GFR (Cockcroft-Gault) 8.3 Glucose Level 156 mg/dL Calcium Level 8.0 mg/dL Phosphorus Level 9.7 mg/dL Magnesium Level 2.4 mg/dL C-Reactive Protein, Quantitative 48.4 mg/L Albumin 3.3 g/dL Test 03/05/17 11:45 Glucose (Fingerstick) 171 mg/dL Imaging: CT A/P Abdomen: Chest Base: Coronary artery calcific atherosclerosis. Vessels: Mild calcific atherosclerosis. Liver/Biliary: No intrahepatic biliary duct dilation. Pancreas: No gross abnormality. Spleen: Normal. Kidneys/Adrenal: No hydronephrosis. GI: Right-sided fat-containing inguinal hernia. The appendix does not appear inflamed. No dilated loops of bowel suggest obstruction. Degenerative changes of spine. This includes at L4-5 and L5-S1 where there are disc osteophyte complexes narrowing the central canal and neural foramina. L1 compression fracture with postkyphoplasty changes. Pelvis: Bladder: No definite adjacent inflammation. IMPRESSION: 1. No evidence of bowel obstruction, hydronephrosis or appendicitis. 2. Coronary artery calcific atherosclerosis partially seen. PE: GEN: NAD, laying in bed, lunch tray untouched LUNGS: clear HEART: S1S2 ABD: non-tender, pain patch RUQ EXTREMITY: LLE w/ wound vac NEURO/PSYCH: answers some questions, drifts in and out, does not open eyes A/P: AMS Osteomyelitis s/p transmetatarsal amputation, ESRD on HD, DM Right-sided abd pain -symptoms unclear -abd US unrevealing, CT as above -on H2 roberta for h/o GERD, prefers no PPI Anemia -EGD and colonoscopy last year unrevealing -- No new GI recs, will review w/ Dr. Hager. CARINE OTTO Mar 05, 2017 12:00
[2017-03-05 13:08] LABS: INR 1.2 (0.8-1.1); PROTHROMBIN TIME PATIENT 14.2 SEC (11.7-14.0)
--- NOTE | 2017-03-05 14:23 | PDOC ---
PROGRESS NOTES Chief Complaint Chief Complaint Client: cellulitis Assessment and plan Left foot infected wound with osteomyelitis. Enterobacter. 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 History of chronic back pain Paroxysmal atrial fibrillation Obesity GERD Hyperglycemia Plan fu with id, ortho, renal, gi cont HD left foot wound closed with wound vac on cont cefepime, likely need 4 weeks SW for rehab cont warfarin, INR daily ptot need PICC line History of Present Illness History of Present Illness Pain doing okay continue current regimen, no fever no chills no nausea no vomiting very tired and sleepy today Vitals Vitals Vital Signs Date Time Temp Pulse Resp B/P (MAP) Pulse Ox O2 Delivery O2 Flow Rate FiO2 03/05/17 11:04 96 Room Air 03/05/17 11:00 98.1 71 20 106/67 (80) 2.0 98.1 Physical Exam General: Alert, Cooperative Heart: Regular rate, Normal S1, Normal S2 Lungs: Clear Abdomen: Soft Extremities: Other (+1 dorsalis pedis pulse bilaterally) Skin: Other (wound VAC lower extremity) Labs LABS Laboratory Tests Test 03/04/17 16:17 03/04/17 21:54 03/05/17 07:15 03/05/17 07:34 Glucose (Fingerstick) 195 mg/dL (70-99) 226 mg/dL (70-99) 158 mg/dL (70-99) Erythrocyte Sedimentation Rate 110 (0-15) Prothrombin Time 14.2 SEC (11.7-14.0) Prothromb Time International Ratio 1.2 (0.8-1.1) Sodium Level 138 mmol/L (136-145) Potassium Level 5.0 mmol/L (3.5-5.1) Chloride Level 97 mmol/L (98-107) Carbon Dioxide Level 32 mmol/L (21-32) Anion Gap 9 (6-14) Blood Urea Nitrogen 54 mg/dL (8-26) Creatinine 8.3 mg/dL (0.7-1.3) Estimated GFR (Cockcroft-Gault) 8.3 Glucose Level 156 mg/dL (70-99) Calcium Level 8.0 mg/dL (8.5-10.1) Phosphorus Level 9.7 mg/dL (2.6-4.7) Magnesium Level 2.4 mg/dL (1.8-2.4) C-Reactive Protein, Quantitative 48.4 mg/L (0-3.3) Albumin 3.3 g/dL (3.4-5.0) Test 03/05/17 11:45 Glucose (Fingerstick) 171 mg/dL (70-99) Review of Systems Review of Systems no fever, chills, sob or chest pain Assessment and Plan Assessmemt and Plan Problems Medical Problems: (1) End stage renal disease Status: Acute (2) Foot ulcer, left Status: Acute Problems: Comment Review of Relevant I have reviewed the following items lila (where applicable) has been applied. Labs Laboratory Tests Test 03/03/17 16:27 03/03/17 20:32 03/04/17 04:30 03/04/17 08:08 Glucose (Fingerstick) 233 mg/dL (70-99) 145 mg/dL (70-99) 186 mg/dL (70-99) Sodium Level 139 mmol/L (136-145) Potassium Level 4.1 mmol/L (3.5-5.1) Chloride Level 97 mmol/L (98-107) Carbon Dioxide Level 32 mmol/L (21-32) Anion Gap 10 (6-14) Blood Urea Nitrogen 40 mg/dL (8-26) Creatinine 6.1 mg/dL (0.7-1.3) Estimated GFR (Cockcroft-Gault) 11.8 Glucose Level 190 mg/dL (70-99) Calcium Level 7.9 mg/dL (8.5-10.1) Phosphorus Level 6.5 mg/dL (2.6-4.7) Magnesium Level 2.1 mg/dL (1.8-2.4) Albumin 3.4 g/dL (3.4-5.0) Test 03/04/17 11:46 03/04/17 16:17 03/04/17 21:54 03/05/17 07:15 Glucose (Fingerstick) 240 mg/dL (70-99) 195 mg/dL (70-99) 226 mg/dL (70-99) Erythrocyte Sedimentation Rate 110 (0-15) Prothrombin Time 14.2 SEC (11.7-14.0) Prothromb Time International Ratio 1.2 (0.8-1.1) Sodium Level 138 mmol/L (136-145) Potassium Level 5.0 mmol/L (3.5-5.1) Chloride Level 97 mmol/L (98-107) Carbon Dioxide Level 32 mmol/L (21-32) Anion Gap 9 (6-14) Blood Urea Nitrogen 54 mg/dL (8-26) Creatinine 8.3 mg/dL (0.7-1.3) Estimated GFR (Cockcroft-Gault) 8.3 Glucose Level 156 mg/dL (70-99) Calcium Level 8.0 mg/dL (8.5-10.1) Phosphorus Level 9.7 mg/dL (2.6-4.7) Magnesium Level 2.4 mg/dL (1.8-2.4) C-Reactive Protein, Quantitative 48.4 mg/L (0-3.3) Albumin 3.3 g/dL (3.4-5.0) Test 03/05/17 07:34 03/05/17 11:45 Glucose (Fingerstick) 158 mg/dL (70-99) 171 mg/dL (70-99) Laboratory Tests Test 03/04/17 16:17 03/04/17 21:54 03/05/17 07:15 03/05/17 07:34 Glucose (Fingerstick) 195 mg/dL (70-99) 226 mg/dL (70-99) 158 mg/dL (70-99) Erythrocyte Sedimentation Rate 110 (0-15) Prothrombin Time 14.2 SEC (11.7-14.0) Prothromb Time International Ratio 1.2 (0.8-1.1) Sodium Level 138 mmol/L (136-145) Potassium Level 5.0 mmol/L (3.5-5.1) Chloride Level 97 mmol/L (98-107) Carbon Dioxide Level 32 mmol/L (21-32) Anion Gap 9 (6-14) Blood Urea Nitrogen 54 mg/dL (8-26) Creatinine 8.3 mg/dL (0.7-1.3) Estimated GFR (Cockcroft-Gault) 8.3 Glucose Level 156 mg/dL (70-99) Calcium Level 8.0 mg/dL (8.5-10.1) Phosphorus Level 9.7 mg/dL (2.6-4.7) Magnesium Level 2.4 mg/dL (1.8-2.4) C-Reactive Protein, Quantitative 48.4 mg/L (0-3.3) Albumin 3.3 g/dL (3.4-5.0) Test 03/05/17 11:45 Glucose (Fingerstick) 171 mg/dL (70-99) Microbiology 02/28/17 Blood Culture - Preliminary, Resulted NO GROWTH AFTER 4 DAYS 02/28/17 Gram Stain - Final, Complete Medications Current Medications Morphine Sulfate 4 mg PRN Q15MIN PRN IV/SQ PAIN GREATER THAN 3/10 Last administered on 02/28/17 19:05; Start 02/28/17 at 18:00; Stop 03/01/17 at 17:59 ; Status DC Morphine Sulfate 4 mg PRN Q2HR PRN IV PAIN Last administered on 03/01/17 19:08 ; Start 02/28/17 at 19:15; Stop 03/01/17 at 19:14; Status DC Citalopram Hydrobromide (CeleXA) 20 mg DAILY PO Last administered on 03/05/17 08:46; Start 03/01/17 at 09:00 Clopidogrel Bisulfate (Plavix) 75 mg DAILY07 PO Last administered on 03/05/17 06:42; Start 03/01/17 at 07:00 Darbepoetin Jace (Aranesp) 100 mcg WEEKLY SQ ; Start 03/07/17 at 09:00 Dexamethasone (Maxidex) 1 drop Q4HRS OS Last administered on 03/05/17 06:43; Start 02/28/17 at 20:00 Diclofenac Sodium (Voltaren) 1 ayaz BID TP Last administered on 03/05/17 08:51 ; Start 02/28/17 at 21:00 Ergocalciferol (Vitamin D2) 50,000 unit WEEKLY PO ; Start 03/07/17 at 09:00 Famotidine (Pepcid) 20 mg HS PO Last administered on 03/05/17 00:22; Start at 21:00 Vitamin B Complex/ Vitamin C (Fernanda-Jimmy) 1 tab DAILY PO Last administered on 08:45; Start 03/01/17 at 09:00 Isosorbide Mononitrate (Imdur) 30 mg DAILY PO Last administered on 03/04/17 09 :13; Start 03/01/17 at 09:00 Ketorolac Tromethamine (Acular) 1 drop QID OS Last administered on 03/05/17 08 :44; Start 02/28/17 at 21:00 Levetiracetam (Keppra) 500 mg BID PO Last administered on 03/05/17 08:45; Start 02/28/17 at 21:00 Levothyroxine Sodium (Synthroid) 175 mcg DAILY07 PO Last administered on 06:42; Start 03/01/17 at 07:00 Lidocaine (Lidoderm) 1 patch DAILY TD Last administered on 03/05/17 08:50; Start 03/01/17 at 09:00 Metoprolol Tartrate (Lopressor) 50 mg BID PO Last administered on 03/04/17 09: 12; Start 02/28/17 at 21:00 Morphine Sulfate (Ms Contin) 30 mg TID PO Last administered on 03/05/17 00:22 ; Start 02/28/17 at 21:00 Moxifloxacin HCl (Vigamox) 1 drop TID OU Last administered on 03/05/17 08:49; Start 02/28/17 at 21:00 Nitroglycerin (Nitrostat) 0.4 mg PRN Q5MIN PRN SL CHEST PAIN; Start 02/28/17 at 19:45 Sucralfate (Carafate) 1 gm BID PO Last administered on 03/05/17 08:45; Start 02/28/17 at 21:00 Trazodone HCl (Desyrel) 25 mg QHS PO Last administered on 03/05/17 00:21; Start 02/28/17 at 21:00 Warfarin Sodium (Coumadin) 5 mg DAILY16 PO ; Start 03/01/17 at 16:00; Stop 03/01 at 16:00; Status DC Albuterol Sulfate (Ventolin Neb Soln) 2.5 mg PRN Q4HRS PRN NEB SHORTNESS OF BREATH Last administered on 03/05/17 11:02; Start 02/28/17 at 20:00 Atorvastatin Calcium (Lipitor) 80 mg QHS PO Last administered on 03/05/17 00: 20; Start 02/28/17 at 21:00 Non-Formulary Medication 5 ml DAILY LEFTEYE ; Start 03/01/17 at 09:00; Status UNV Calcium Carbonate/ Glycine (Oscal) 2,000 mg TID PO Last administered on 21:00; Start 03/01/17 at 09:00; Stop 03/03/17 at 09:21; Status DC Non-Formulary Medication 1 drop Q1HR OS ; Start 02/28/17 at 20:00; Status UNV Risperidone (RisperDAL) 0.5 mg QHS PO Last administered on 03/05/17 00:21; Start 02/28/17 at 21:00 Acetaminophen (Tylenol) 650 mg PRN Q6HRS PRN PO FEVER; Start 02/28/17 at 19:45 Ondansetron HCl (Zofran) 4 mg PRN Q6HRS PRN IV NAUSEA/VOMITING Last administered on 03/02/17 08:35; Start 02/28/17 at 19:45; Stop 03/02/17 at 17:27 ; Status DC Morphine Sulfate 2 mg PRN Q2HR PRN IV PAIN Last administered on 03/02/17 12:39 ; Start 02/28/17 at 19:45; Stop 03/02/17 at 17:27; Status DC Tramadol HCl (Ultram) 50 mg PRN Q6HRS PRN PO PAIN; Start 02/28/17 at 19:45 Hydralazine HCl (Apresoline) 10 mg PRN Q4HRS PRN IVP ELEVATED BP, SEE COMMENTS ; Start 02/28/17 at 19:45 Docusate Sodium (Colace) 100 mg PRN DAILY PRN PO CONSTIPATION; Start 02/28/17 at 19:45 Vancomycin HCl 2 gm/Sodium Chloride 500 ml @ 250 mls/hr 1X ONCE IV ; Start at 20:30; Stop 02/28/17 at 22:29; Status Cancel Vancomycin HCl (Vanco Per Pharmacy) 1 each PRN DAILY PRN MC SEE COMMENTS Last administered on 03/04/17 13:17; Start 02/28/17 at 20:00; Stop 03/04/17 at 17:34 ; Status DC Cefepime HCl 1 gm/ Sodium Chloride 50 ml @ 100 mls/hr Q12HR IV ; Start at 20:30; Status Cancel Warfarin Sodium (Coumadin Per Physician) 1 each PRN DAILY PRN MC SEE COMMENTS Last administered on 03/04/17 13:13; Start 02/28/17 at 20:00 Vancomycin HCl 1.25 gm/Sodium Chloride 250 ml @ 167 mls/hr Q48H IV ; Start at 23:00; Stop 03/02/17 at 23:00; Status DC Vancomycin HCl 1 each 1X ONCE MC ; Start 03/04/17 at 22:30; Stop 03/04/17 at 22 :30; Status DC Cefepime HCl 1 gm/ Sodium Chloride 50 ml @ 100 mls/hr QHS IV Last administered on 03/05/17 00:22; Start 02/28/17 at 23:30 Vancomycin HCl 2 gm/Sodium Chloride 500 ml @ 250 mls/hr 1X ONCE IV Last administered on 02/28/17 23:30; Start 02/28/17 at 23:30; Stop 03/01/17 at 01:29 ; Status DC Insulin Aspart (NovoLOG) 0-9 UNITS TIDWMEALS SQ Last administered on 03/04/17 17:17; Start 03/01/17 at 08:00 Dextrose (Dextrose 50%-Water Syringe) 12.5 gm PRN Q15MIN PRN IV SEE COMMENTS; Start 03/01/17 at 03:00; Status Cancel Vancomycin HCl 1 each 1X ONCE MC Last administered on 03/02/17 05:00; Start 03/02/17 at 05:00; Stop 03/02/17 at 05:01; Status DC Sodium Chloride 1,000 ml @ 1,000 mls/hr Q1H PRN IV hypotension; Start 03/01/17 at 12:02; Stop 03/01/17 at 18:01; Status DC Diphenhydramine HCl (Benadryl) 25 mg 1X PRN PRN IV ITCHING; Start 03/01/17 at 12:15; Stop 03/02/17 at 12:14; Status DC Diphenhydramine HCl (Benadryl) 25 mg 1X PRN PRN IV ITCHING; Start 03/01/17 at 12:15; Stop 03/02/17 at 12:14; Status DC Sodium Chloride 1,000 ml @ 400 mls/hr Q2H30M PRN IV PATENCY; Start 03/01/17 at 12:02; Stop 03/02/17 at 00:01; Status DC Info (PHARMACY MONITORING -- do not chart) 1 each PRN DAILY PRN MC SEE COMMENTS ; Start 03/01/17 at 12:15 Warfarin Sodium (Coumadin) 7.5 mg 1X WARF ONCE PO ; Start 03/01/17 at 16:00; Stop 03/01/17 at 16:01; Status Cancel Warfarin Sodium (Coumadin) 5 mg DAILY16 PO Last administered on 03/04/17t 17:03 ; Start 03/01/17 at 16:00 Lidocaine HCl (Xylocaine-Mpf 1% Vial) 0.5 ml 1X STAT ID Last administered on t 14:31; Start 03/01/17 at 13:54; Stop 03/01/17 at 13:56; Status DC Fentanyl Citrate (Fentanyl 2ml Vial) 25 mcg PRN Q5MIN PRN IV MILD PAIN; Start 03/02/17 at 07:00; Stop 03/02/17 at 23:00; Status DC Fentanyl Citrate (Fentanyl 2ml Vial) 50 mcg PRN Q5MIN PRN IV MODERATE PAIN; Start 03/02/17 at 07:00; Stop 03/02/17 at 23:00; Status DC Morphine Sulfate 1 mg PRN Q10MIN PRN IV SEVERE PAIN; Start 03/02/17 at 07:00; Stop 03/02/17 at 23:00; Status DC Lidocaine HCl 2 ml PRN 1X PRN ID PRIOR TO IV START; Start 03/02/17 at 07:00; Stop 03/02/17 at 23:00; Status DC Hydromorphone HCl (Dilaudid) 0.5 mg PRN Q10MIN PRN IV SEV PAIN, Second choice; Start 03/02/17 at 07:00; Stop 03/02/17 at 23:00; Status DC Prochlorperazine Edisylate (Compazine) 5 mg PACU PRN PRN IV NAUSEA, MRX1; Start 03/02/17 at 07:00; Stop 03/02/17 at 23:00; Status DC Sodium Chloride 1,000 ml @ 0 mls/hr Q0M IV ; Start 03/02/17 at 13:45 Vancomycin HCl 500 mg/Sodium Chloride 100 ml @ 100 mls/hr QTUTHSA IV ; Start at 16:00; Status Cancel Bupivacaine HCl/ Epinephrine Bitart (Marcaine-Epi 0.25%-1:[id number]) 50 ml STK-MED ONCE .ROUTE ; Start 03/02/17 at 11:53; Stop 03/02/17 at 11:54; Status DC Magnesium Sulfate/ Dextrose 50 ml @ 25 mls/hr PRN DAILY PRN IV for Mag < 1.7 on am labs; Start 03/02/17 at 14:00 Propofol 20 ml @ As Directed STK-MED ONCE IV ; Start 03/02/17 at 15:08; Stop at 15:09; Status DC Famotidine (Pepcid) 20 mg STK-MED ONCE .ROUTE ; Start 03/02/17 at 15:08; Stop at 15:09; Status DC Lidocaine HCl (Lidocaine Pf 2% Vial) 5 ml STK-MED ONCE .ROUTE ; Start 03/02/17 at 15:08; Stop 03/02/17 at 15:09; Status DC Ondansetron HCl (Zofran) 4 mg STK-MED ONCE .ROUTE ; Start 03/02/17 at 15:08; Stop 03/02/17 at 15:09; Status DC Fentanyl Citrate (Fentanyl 2ml Vial) 100 mcg STK-MED ONCE .ROUTE ; Start at 15:45; Stop 03/02/17 at 15:46; Status DC Rocuronium [place] (Zemuron) 50 mg STK-MED ONCE .ROUTE ; Start 03/02/17 at 15:45 ; Stop 03/02/17 at 15:46; Status DC Clindamycin Phosphate 0 ml @ As Directed STK-MED ONCE IV ; Start 03/02/17 at 15: 48; Stop 03/02/17 at 15:49; Status DC Clindamycin Phosphate 50 ml @ 100 mls/hr 1X ONCE IV Last administered on 03/02t 16:27; Start 03/02/17 at 17:00; Stop 03/02/17 at 17:29; Status DC Oxycodone HCl (Roxicodone) 5 mg PRN Q3HRS PRN PO PAIN; Start 03/02/17 at 17:30 Morphine Sulfate 2 mg PRN Q1HR PRN IV PAIN; Start 03/02/17 at 17:30 Fentanyl Citrate (Fentanyl 2ml Vial) 25 mcg PRN Q1HR PRN IV PAIN; Start at 17:30 Senna/Docusate Sodium (Senna Plus) 1 tab DAILY PO Last administered on 08:45; Start 03/03/17 at 09:00 Polyethylene Glycol (miraLAX PACKET) 17 gm PRN DAILY PRN PO CONSTIPATION Last administered on 03/05/17 08:50; Start 03/02/17 at 17:30 Clindamycin Phosphate 50 ml @ 100 mls/hr Q6H IV ; Start 03/02/17 at 22:30; Stop 03/03/17 at 10:59; Status Cancel Ondansetron HCl (Zofran) 4 mg PRN Q4HRS PRN IV NAUSEA/VOMITING Last administered on 03/04/17 22:26; Start 03/02/17 at 17:30 Aspirin (Ecotrin) 81 mg DAILYWBKFT PO ; Start 03/03/17 at 08:00; Stop 03/03/17 at 08:39; Status DC Magnesium Hydroxide (Milk Of Magnesia) 2,400 mg 1X PRN PRN PO CONSTIPATION; Start 03/03/17 at 06:00; Stop 03/04/17 at 05:59; Status DC Bisacodyl (Dulcolax Supp) 10 mg 1X PRN PRN ND CONSTIPATION; Start 03/03/17 at 16:00; Stop 03/04/17 at 16:00; Status DC Acetaminophen/ Hydrocodone Bitart (Lortab 7.5/325) 1 tab PRN Q4HRS PRN PO PAIN ; Start 03/02/17 at 17:30 Morphine Sulfate 4 mg PRN Q2HR PRN IV PAIN Last administered on 03/05/17 06:42 ; Start 03/02/17 at 17:30 Acetaminophen/ Hydrocodone Bitart (Lortab 7.5/325) 2 tab PRN Q4HRS PRN PO PAIN ; Start 03/02/17 at 17:30 Dextrose (Dextrose 50%-Water Syringe) 12.5 gm PRN Q15MIN PRN IV SEE COMMENTS; Start 03/02/17 at 17:30 Sevoflurane (Ultane) 60 ml STK-MED ONCE IH ; Start 03/02/17 at 17:32; Stop 03/02 at 17:33; Status DC Dexamethasone Sodium Phosphate (Decadron) 20 mg STK-MED ONCE .ROUTE ; Start at 17:32; Stop 03/02/17 at 17:33; Status DC Phenylephrine HCl 1 mg STK-MED ONCE IV ; Start 03/02/17 at 17:32; Stop 03/02/17 at 17:33; Status DC Vancomycin HCl 1 gm/Sodium Chloride 250 ml @ 250 mls/hr QTUTHSA IV Last administered on 03/03/17 18:42; Start 03/03/17 at 16:00; Stop 03/04/17 at 17:34 ; Status DC Vancomycin HCl 1 each 1X ONCE MC ; Start 03/06/17 at 05:00; Stop 03/06/17 at 05 :01; Status Cancel Lidocaine HCl (Xylocaine-Mpf 1% Vial) 0.5 ml 1X STAT ID Last administered on 08:20; Start 03/03/17 at 08:05; Stop 03/03/17 at 08:10; Status DC Sodium Chloride 1,000 ml @ 1,000 mls/hr Q1H PRN IV hypotension; Start 03/03/17 at 08:08; Stop 03/03/17 at 14:07; Status DC Diphenhydramine HCl (Benadryl) 25 mg 1X PRN PRN IV ITCHING; Start 03/03/17 at 08:15; Stop 03/04/17 at 08:14; Status DC Diphenhydramine HCl (Benadryl) 25 mg 1X PRN PRN IV ITCHING; Start 03/03/17 at 08:15; Stop 03/04/17 at 08:14; Status DC Sodium Chloride 1,000 ml @ 400 mls/hr Q2H30M PRN IV PATENCY; Start 03/03/17 at 08:08; Stop 03/03/17 at 20:07; Status DC Info (PHARMACY MONITORING -- do not chart) 1 each PRN DAILY PRN MC SEE COMMENTS ; Start 03/03/17 at 08:15; Status UNV Info (PHARMACY MONITORING -- do not chart) 1 each PRN DAILY PRN MC SEE COMMENTS ; Start 03/03/17 at 08:15; Status UNV Calcium Carbonate/ Glycine (Oscal) 2,000 mg TIDAC PO Last administered on t 06:42; Start 03/03/17 at 11:30 Active Scripts Active Levetiracetam 500 Mg Tablet 500 Mg PO BID Morphine Sulfate Er (Morphine Sulfate) 30 Mg Tablet.er 30 Mg PO TID Lidoderm (Lidocaine) 700 Mg Adh..patch 1 Patch TD DAILY Ventolin Hfa Inhaler (Albuterol Sulfate) 18 Gm Hfa.aer.ad 2 Puff INH Q4HRS PRN Metoprolol Tartrate 50 Mg Tablet 50 Mg PO BID Synthroid (Levothyroxine Sodium) 175 Mcg Tablet 175 Mcg PO DAILY07 Isosorbide Mononitrate Er (Isosorbide Mononitrate) 30 Mg Tab.er.24h 30 Mg PO DAILY Reported Ketorolac Tromethamine 5 Ml Drops 1 Drop OS QID Maxidex (Dexamethasone) 5 Ml Drops.susp 1 Drop OS Q4HRS Vigamox (Moxifloxacin Hcl) 3 Ml Drops 1 Drop EACHEYE TID Ropinirole Hcl 0.25 Mg Tablet 0.25 Mg PO Oxycodone Hcl 5 Mg Capsule 5 Mg PO PRN Midodrine Hcl 5 Mg Tablet 5 Mg PO Citalopram Hbr (Citalopram Hydrobromide) 20 Mg Tablet 1 Tab PO DAILY Trazodone Hcl 50 Mg Tablet 0.5-1 Tab PO QHS Risperidone 0.5 Mg Tablet 1 Tab PO QHS Bromsite (Bromfenac Sodium) 5 Ml Drops 5 Ml LEFTEYE DAILY Vigamox (Moxifloxacin Hcl) 3 Ml Drops 1 Drop LEFTEYE TID Prednisolone Acetate 5 Ml Drops.susp 1 Drop OS Q1HR Famotidine 20 Mg Tablet 20 Mg PO HS Coumadin (Warfarin Sodium) 5 Mg Tablet 1 Tab PO DAILY Nephro-Jimmy Tablet (Folic Acid/Vitamin B Comp W-C) 0.8 Mg Tablet 1 Tab PO DAILY Carafate (Sucralfate) 1 Gm Tablet 1 Tab PO BID Nitrostat (Nitroglycerin) 0.4 Mg Tab.subl 0.4 Mg SL PRN Q5MIN PRN Calcium Carbonate 500 Mg/5 Ml Oral.susp 2,000 Mg PO TID Aranesp Syringe (Darbepoetin Jace In Polysorbat) 100 Mcg/0.5 Ml Disp.syrin 100 Mcg SQ WEEKLY Voltaren (Diclofenac Sodium) 100 Gm Gel..gram. 1 Gm TP BID Clopidogrel (Clopidogrel Bisulfate) 75 Mg Tablet 75 Mg PO DAILY07 Renvela (Sevelamer Carbonate) 800 Mg Tablet Tab PO TID Vitamin D2 (Ergocalciferol (Vitamin D2)) 50,000 Unit Capsule 50,000 Unit PO WEEKLY Atorvastatin Calcium 80 Mg Tablet 80 Mg PO HS Vitals/I & O Vital Sign - Last 24 Hours 03/04/17 03/04/17 03/04/17 03/04/17 15:00 17:18 19:00 20:00 Temp 97.7 98.8 97.7 98.8 Pulse 73 Resp 20 18 B/P (MAP) 90/ 95/62 (73) Pulse Ox 99 98 O2 Delivery Room Air Room Air Room Air Room Air 03/04/17 03/04/17 03/05/17 03/05/17 21:00 23:00 03:00 07:00 Temp 97.5 97.9 98.4 97.5 97.9 98.4 Pulse 73 81 94 98 Resp 18 18 20 B/P (MAP) 95/62 97/56 (70) 113/58 (76) 98/59 (72) Pulse Ox 95 94 91 O2 Delivery Room Air Room Air Room Air 03/05/17 03/05/17 03/05/17 03/05/17 08:47 08:47 08:48 11:00 Temp 98.1 98.1 Pulse 98 98 71 Resp 20 B/P (MAP) 98/59 98/59 106/67 (80) Pulse Ox 91 O2 Delivery Room Air O2 Flow Rate 2.0 03/05/17 11:04 Pulse Ox 96 O2 Delivery Room Air Intake and Output 03/04/17 03/04/17 03/05/17 14:59 22:59 06:59 Intake Total 880 ml 200 ml Balance 880 ml 200 ml SKYLAR TSE MD Mar 05, 2017 14:23
[2017-03-05 15:00] VITALS: BP 111/57
[2017-03-05] MEDS: WARFARIN 5 MG TABLET. PO SCH (17:36)
[2017-03-05 19:00] VITALS: BP 130/76
[2017-03-05] MEDS ORDERED: LORazepam 1 MG TABLET PO ONE (20:30)
[2017-03-05 23:00] VITALS: BP 145/80
[2017-03-06] VITALS (9 sets, daily range): BP systolic 94–163; BP diastolic 57–79
[2017-03-06] MEDS: DEXAMETHASONE 0.1% OPHTH SOLUTION 5ML BOTTLE. OS SCH ×6 (00:23→22:33)
[2017-03-06] MEDS ORDERED: VANCOMYCIN RANDOM LEVEL. MC ONE (05:00)
[2017-03-06 05:15] LABS: HEMATOCRIT 33.1 % (39.0-53.0); HEMOGLOBIN 10.6 g/dL (13.0-17.5); RED BLOOD COUNT 3.46 x10^6/uL (4.30-5.70); RED CELL DISTRIBUTION WIDTH 15.5 % (11.5-14.5); WHITE BLOOD COUNT 5.7 x10^3/uL (4.0-11.0)
[2017-03-06 05:24] LABS: INR 1.3 (0.8-1.1); PROTHROMBIN TIME PATIENT 15.4 SEC (11.7-14.0)
[2017-03-06 06:07] LABS: ALBUMIN 3.3 g/dL (3.4-5.0); CALCIUM 7.9 mg/dL (8.5-10.1); CREATININE 9.9 mg/dL (0.7-1.3); GFR 6.8; POTASSIUM 4.8 mmol/L (3.5-5.1)
[2017-03-06 06:09] LABS: PHOSPHORUS 11.3 mg/dL (2.6-4.7)
[2017-03-06] MEDS: LEVOTHYROXINE 175 MCG TABLET PO SCH (07:00)
[2017-03-06] MEDS: CLOPIDOGREL BISULFATE 75 MG TABLET PO SCH (07:00)
[2017-03-06] MEDS: CALCIUM CARBONATE 500 MG TABLET PO SCH ×3 (07:30→16:30)
[2017-03-06] MEDS: INSULIN ASPART 300 UNITS/3 ML INSULN.PEN SQ SCH ×3 (08:00→16:55)
[2017-03-06] MEDS ORDERED: LIDOCAINE 1% PF 2 ML VIAL. ONE (08:09)
[2017-03-06] MEDS ORDERED: IV NORMAL SALINE 1000ML BAG 1,000 ML IV PRN ×2 (08:46)
[2017-03-06] MEDS ORDERED: diphenhydrAMINE 50 MG/ML VIAL IV PRN (09:00)
[2017-03-06] MEDS ORDERED: ACETAMINOPHEN 500 MG TABLET PO PRN (09:00)
[2017-03-06] MEDS: CIPROFLOXACIN HCL 250 MG TABLET. PO SCH (09:00)
[2017-03-06] MEDS: FOLIC/VIT B COMP W-C (RENAL) TABLET. PO SCH (09:00)
[2017-03-06] MEDS ORDERED: ALBUMIN HUMAN 25% 200 ML IV PRN (09:00)
[2017-03-06] MEDS: levETIRAcetam 500 MG TABLET PO SCH ×2 (09:00→22:34)
[2017-03-06] MEDS: SENNOSIDES/DOCUSATE 8.6/50MG TABLET. PO SCH (09:00)
[2017-03-06] MEDS ORDERED: DIALYSIS PATIENT. MC PRN ×2 (09:00)
[2017-03-06] MEDS: DICLOFENAC SODIUM 1% TOPICAL GEL 100GM TUBE. TP SCH ×2 (09:00→21:00)
[2017-03-06] MEDS: ISOSORBIDE MONONITRATE ER 30 MG TAB.ER.24H PO SCH (09:00)
[2017-03-06] MEDS: CITALOPRAM 20 MG TABLET. PO SCH (09:00)
[2017-03-06] MEDS: MORPHINE ER 30 MG TABLET.ER PO SCH ×3 (09:00→22:52)
[2017-03-06] MEDS: KETOROLAC TROMETHAMINE 0.5% OPHTH SOLUTION 3ML BOTTLE. OS SCH ×4 (09:00→22:32)
[2017-03-06] MEDS: MOXIFLOXACIN 0.5% OPHTH SOLUTION 3ML BOTTLE. OU SCH ×3 (09:00→22:32)
[2017-03-06] MEDS: SUCRALFATE 1 GM TABLET. PO SCH ×2 (09:00→22:33)
[2017-03-06] MEDS: METOPROLOL TART IMMED RELEASE 50 MG TABLET. PO SCH ×2 (09:00→22:35)
[2017-03-06] MEDS: LIDOCAINE (700MG/PATCH) PATCH. TD SCH (09:00)
--- NOTE | 2017-03-06 12:03 | PDOC ---
Renal-Progress Notes Subjective Notes Notes NO PAIN History of Present Illness Hx of present illness STABLE Vitals Vitals Vital Signs Date Time Temp Pulse Resp B/P (MAP) Pulse Ox O2 Delivery O2 Flow Rate FiO2 03/06/17 07:35 Nasal Cannula 2.0 03/06/17 03:00 97.5 82 16 140/74 (96) 99 97.5 Weight Weight [ ] I.O. Intake and Output Intake and Output 03/06/17 07:00 Intake Total 120 ml Output Total 0 ml Balance 120 ml Intake Oral 120 ml Output Urine Total 0 ml # Bowel Movements 1 Labs Labs Laboratory Tests Test 03/05/17 17:00 03/05/17 21:09 03/06/17 03:44 03/06/17 07:38 Glucose (Fingerstick) 171 mg/dL (70-99) 126 mg/dL (70-99) 96 mg/dL (70-99) White Blood Count 5.7 x10^3/uL (4.0-11.0) Red Blood Count 3.46 x10^6/uL (4.30-5.70) Hemoglobin 10.6 g/dL (13.0-17.5) Hematocrit 33.1 % (39.0-53.0) Mean Corpuscular Volume 96 fL (79-100) Mean Corpuscular Hemoglobin 31 pg (25-35) Mean Corpuscular Hemoglobin Concent 32 g/dL (31-37) Red Cell Distribution Width 15.5 % (11.5-14.5) Platelet Count 127 x10^3/uL (140-400) Prothrombin Time 15.4 SEC (11.7-14.0) Prothromb Time International Ratio 1.3 (0.8-1.1) Sodium Level 136 mmol/L (136-145) Potassium Level 4.8 mmol/L (3.5-5.1) Chloride Level 94 mmol/L (98-107) Carbon Dioxide Level 29 mmol/L (21-32) Anion Gap 13 (6-14) Blood Urea Nitrogen 62 mg/dL (8-26) Creatinine 9.9 mg/dL (0.7-1.3) Estimated GFR (Cockcroft-Gault) 6.8 Glucose Level 103 mg/dL (70-99) Calcium Level 7.9 mg/dL (8.5-10.1) Phosphorus Level 11.3 mg/dL (2.6-4.7) Magnesium Level 2.3 mg/dL (1.8-2.4) Albumin 3.3 g/dL (3.4-5.0) Micro Micro Microbiology 02/28/17 Blood Culture - Final, Complete NO GROWTH AFTER 5 DAYS 02/28/17 Gram Stain - Final, Complete Review of Systems Constitutional: yes: weakness, alert, oriented Pulmonary: Yes no symptom reported Gastrointestional: Yes: no symptom reported Genitourinary: Yes: no symptom reported Musculoskeletal: Yes: no symptom reported Psychiatric/Neurological: Yes: no symptom reported Endocrine: Yes: no symptom reported Physical Exam General Appearance: no apparent distress Skin: warm Respiratory: bilateral CTA Heart: S1S2, RRR Abdomen: soft, bowel sounds present Genitourinary: bladder flat Extremities: atrophy Neurology: alert Musculoskeletal: Osteoarthritis Assessment Assessment IMP ESRD ANEMIA DM II HTN S/P TMA PLAN ANTIBIOTICS HD TODAY UF TO DW CONT KEITH GRACE VILLEDA MD Mar 06, 2017 12:03
--- NOTE | 2017-03-06 13:40 | EKG ---
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
--- NOTE | 2017-03-06 14:08 | PDOC ---
Objective: Objective: D/w RN - didn't feel well during dialysis, started "twitching," just called rapid response, awaiting head CT results, concern for stroke. Neuro consulted. Vital Signs: Vital Signs Date Time Temp Pulse Resp B/P (MAP) Pulse Ox O2 Delivery O2 Flow Rate FiO2 03/06/17 07:35 Nasal Cannula 2.0 03/06/17 03:00 97.5 82 16 140/74 (96) 99 97.5 Labs: Laboratory Tests Test 03/05/17 17:00 03/05/17 21:09 03/06/17 03:44 03/06/17 07:38 Glucose (Fingerstick) 171 mg/dL 126 mg/dL 96 mg/dL White Blood Count 5.7 x10^3/uL Red Blood Count 3.46 x10^6/uL Hemoglobin 10.6 g/dL Hematocrit 33.1 % Mean Corpuscular Volume 96 fL Mean Corpuscular Hemoglobin 31 pg Mean Corpuscular Hemoglobin Concent 32 g/dL Red Cell Distribution Width 15.5 % Platelet Count 127 x10^3/uL Prothrombin Time 15.4 SEC Prothromb Time International Ratio 1.3 Sodium Level 136 mmol/L Potassium Level 4.8 mmol/L Chloride Level 94 mmol/L Carbon Dioxide Level 29 mmol/L Anion Gap 13 Blood Urea Nitrogen 62 mg/dL Creatinine 9.9 mg/dL Estimated GFR (Cockcroft-Gault) 6.8 Glucose Level 103 mg/dL Calcium Level 7.9 mg/dL Phosphorus Level 11.3 mg/dL Magnesium Level 2.3 mg/dL Albumin 3.3 g/dL Test 03/06/17 13:33 Glucose (Fingerstick) 88 mg/dL PE: GEN: breathing mask, seems shaky OTHER: RN, staff present A/P: AMS Osteomyelitis s/p transmetatarsal amputation, ESRD on HD, DM Right-sided abd pain -imaging unrevealing, on H2 [place] for GERD -h/o anemia w/ unrevealing 'scopes last year, some drift in Hgb -- Note neuro consult for AMS. Stable GI-snell. CARINE OTTO Mar 06, 2017 14:08
--- NOTE | 2017-03-06 14:14 | RAD ---
CT of the head without contrast, 03/06/2017: History: Mental status change Comparison is made to a study from 11/07/2015. The ventricles are within normal limits in size. There is no shift of the midline structures. There is no evidence of acute intracranial hemorrhage or mass effect. IMPRESSION: No acute intracranial abnormality is detected. PQRS Compliance Statement: One or more of the following individualized dose reduction techniques were utilized for this examination: 1. Automated exposure control 2. Adjustment of the mA and/or kV according to patient size 3. Use of iterative reconstruction technique
--- NOTE | 2017-03-06 14:26 | PDOC2 ---
NEUROLOGY CONSULT Date of Admission Date of Admission DATE: 03/06/17 TIME: 14:13 Reason for Consult Reason for Consult: Altered mental status Referring Physician Referring Physician: Dr. Horton PCP: Dr. Sanchez Source Source: Chart review, Patient History of Present Illness History of Present Illness The patient is a 51-year-old right-handed male admitted 6 days ago for left foot ulcer status-post debridement 5 days ago. I saw him 3 months ago when he was admitted with a flurry of several seizures after being off anticonvulsants for about 6 years. He first started having seizures about 10 years ago following one of several strokes he has had. I have not seen him since discharged, but he has been seizure-free on levetiracetam. This morning he went to dialysis orally and missed all of his medications including the levetiracetam. On the way back from dialysis he told the transporter that he was feeling strange like he was having a stroke. He has been observed to have myoclonic movements mainly on the right side. At first he said both feet were weak and numb, but now he says that they are better. He denies any headache. Past Medical History Cardiovascular: AFIB, CAD, CHF, HTN, AR, Hyperlipidemia, Other (peripheral vascular disease) Pulmonary: Asthma, Other (sleep apnea) CENTRAL NERVOUS SYSTEM: CVA, Dementia, Periperal neuropathy, Seizure, TIA, Vertigo GI: Diverticulosis, Hemorrhoids Heme/Onc: Anemia NOS Psych: Anxiety, Depression ENT: Other (glaucoma) Renal/: Chronic renal insuff (dialysis) Endocrine: Diabetes, Hypothyroidism Past Surgical History Past Surgical History: Cataract Removal, Total knee replacement (left), Other ( scrotal abscess, coronary stent, arteriovenous shunt) Family History Family History: No pertinent hx (negative for seizures) Social History Social History , nonsmoker, no alcohol Current Medications Current Medications Current Medications Morphine Sulfate 4 mg PRN Q15MIN PRN IV/SQ PAIN GREATER THAN 3/10 Last administered on 02/28/17 19:05; Start 02/28/17 at 18:00; Stop 03/01/17 at 17:59 ; Status DC Morphine Sulfate 4 mg PRN Q2HR PRN IV PAIN Last administered on 03/01/17 19:08 ; Start 02/28/17 at 19:15; Stop 03/01/17 at 19:14; Status DC Citalopram Hydrobromide (CeleXA) 20 mg DAILY PO Last administered on 03/05/17 08:46; Start 03/01/17 at 09:00 Clopidogrel Bisulfate (Plavix) 75 mg DAILY07 PO Last administered on 03/05/17 06:42; Start 03/01/17 at 07:00 Darbepoetin Jace (Aranesp) 100 mcg WEEKLY SQ ; Start 03/07/17 at 09:00 Dexamethasone (Maxidex) 1 drop Q4HRS OS Last administered on 03/05/17 21:09; Start 02/28/17 at 20:00 Diclofenac Sodium (Voltaren) 1 ayaz BID TP Last administered on 03/05/17 08:51 ; Start 02/28/17 at 21:00 Ergocalciferol (Vitamin D2) 50,000 unit WEEKLY PO ; Start 03/07/17 at 09:00 Famotidine (Pepcid) 20 mg HS PO Last administered on 03/05/17 21:10; Start at 21:00 Vitamin B Complex/ Vitamin C (Fernanda-Jimmy) 1 tab DAILY PO Last administered on 08:45; Start 03/01/17 at 09:00 Isosorbide Mononitrate (Imdur) 30 mg DAILY PO Last administered on 03/04/17 09 :13; Start 03/01/17 at 09:00 Ketorolac Tromethamine (Acular) 1 drop QID OS Last administered on 03/05/17 21 :09; Start 02/28/17 at 21:00 Levetiracetam (Keppra) 500 mg BID PO Last administered on 03/05/17 21:10; Start 02/28/17 at 21:00 Levothyroxine Sodium (Synthroid) 175 mcg DAILY07 PO Last administered on 06:42; Start 03/01/17 at 07:00 Lidocaine (Lidoderm) 1 patch DAILY TD Last administered on 03/05/17 08:50; Start 03/01/17 at 09:00 Metoprolol Tartrate (Lopressor) 50 mg BID PO Last administered on 03/05/17 21: 14; Start 02/28/17 at 21:00 Morphine Sulfate (Ms Contin) 30 mg TID PO Last administered on 03/05/17 00:22 ; Start 02/28/17 at 21:00 Moxifloxacin HCl (Vigamox) 1 drop TID OU Last administered on 03/05/17 21:09; Start 02/28/17 at 21:00 Nitroglycerin (Nitrostat) 0.4 mg PRN Q5MIN PRN SL CHEST PAIN; Start 02/28/17 at 19:45 Sucralfate (Carafate) 1 gm BID PO Last administered on 03/05/17 21:09; Start 02/28/17 at 21:00 Trazodone HCl (Desyrel) 25 mg QHS PO Last administered on 03/05/17 00:21; Start 02/28/17 at 21:00 Warfarin Sodium (Coumadin) 5 mg DAILY16 PO ; Start 03/01/17 at 16:00; Stop 03/01 at 16:00; Status DC Albuterol Sulfate (Ventolin Neb Soln) 2.5 mg PRN Q4HRS PRN NEB SHORTNESS OF BREATH Last administered on 03/05/17 11:02; Start 02/28/17 at 20:00 Atorvastatin Calcium (Lipitor) 80 mg QHS PO Last administered on 03/05/17 21: 10; Start 02/28/17 at 21:00 Non-Formulary Medication 5 ml DAILY LEFTEYE ; Start 03/01/17 at 09:00; Status UNV Calcium Carbonate/ Glycine (Oscal) 2,000 mg TID PO Last administered on 21:00; Start 03/01/17 at 09:00; Stop 03/03/17 at 09:21; Status DC Non-Formulary Medication 1 drop Q1HR OS ; Start 02/28/17 at 20:00; Status UNV Risperidone (RisperDAL) 0.5 mg QHS PO Last administered on 03/05/17 21:13; Start 02/28/17 at 21:00 Acetaminophen (Tylenol) 650 mg PRN Q6HRS PRN PO FEVER; Start 02/28/17 at 19:45 Ondansetron HCl (Zofran) 4 mg PRN Q6HRS PRN IV NAUSEA/VOMITING Last administered on 03/02/17 08:35; Start 02/28/17 at 19:45; Stop 03/02/17 at 17:27 ; Status DC Morphine Sulfate 2 mg PRN Q2HR PRN IV PAIN Last administered on 03/02/17 12:39 ; Start 02/28/17 at 19:45; Stop 03/02/17 at 17:27; Status DC Tramadol HCl (Ultram) 50 mg PRN Q6HRS PRN PO PAIN; Start 02/28/17 at 19:45 Hydralazine HCl (Apresoline) 10 mg PRN Q4HRS PRN IVP ELEVATED BP, SEE COMMENTS ; Start 02/28/17 at 19:45 Docusate Sodium (Colace) 100 mg PRN DAILY PRN PO CONSTIPATION; Start 02/28/17 at 19:45 Vancomycin HCl 2 gm/Sodium Chloride 500 ml @ 250 mls/hr 1X ONCE IV ; Start at 20:30; Stop 02/28/17 at 22:29; Status Cancel Vancomycin HCl (Vanco Per Pharmacy) 1 each PRN DAILY PRN MC SEE COMMENTS Last administered on 03/04/17 13:17; Start 02/28/17 at 20:00; Stop 03/04/17 at 17:34 ; Status DC Cefepime HCl 1 gm/ Sodium Chloride 50 ml @ 100 mls/hr Q12HR IV ; Start at 20:30; Status Cancel Warfarin Sodium (Coumadin Per Physician) 1 each PRN DAILY PRN MC SEE COMMENTS Last administered on 03/06/17 13:31; Start 02/28/17 at 20:00 Vancomycin HCl 1.25 gm/Sodium Chloride 250 ml @ 167 mls/hr Q48H IV ; Start at 23:00; Stop 03/02/17 at 23:00; Status DC Vancomycin HCl 1 each 1X ONCE MC ; Start 03/04/17 at 22:30; Stop 03/04/17 at 22 :30; Status DC Cefepime HCl 1 gm/ Sodium Chloride 50 ml @ 100 mls/hr QHS IV Last administered on 03/05/17 00:22; Start 02/28/17 at 23:30; Stop 03/05/17 at 15:38 ; Status DC Vancomycin HCl 2 gm/Sodium Chloride 500 ml @ 250 mls/hr 1X ONCE IV Last administered on 02/28/17 23:30; Start 02/28/17 at 23:30; Stop 03/01/17 at 01:29 ; Status DC Insulin Aspart (NovoLOG) 0-9 UNITS TIDWMEALS SQ Last administered on 03/05/17 17:40; Start 03/01/17 at 08:00 Dextrose (Dextrose 50%-Water Syringe) 12.5 gm PRN Q15MIN PRN IV SEE COMMENTS; Start 03/01/17 at 03:00; Status Cancel Vancomycin HCl 1 each 1X ONCE MC Last administered on 03/02/17 05:00; Start 03/02/17 at 05:00; Stop 03/02/17 at 05:01; Status DC Sodium Chloride 1,000 ml @ 1,000 mls/hr Q1H PRN IV hypotension; Start 03/01/17 at 12:02; Stop 03/01/17 at 18:01; Status DC Diphenhydramine HCl (Benadryl) 25 mg 1X PRN PRN IV ITCHING; Start 03/01/17 at 12:15; Stop 03/02/17 at 12:14; Status DC Diphenhydramine HCl (Benadryl) 25 mg 1X PRN PRN IV ITCHING; Start 03/01/17 at 12:15; Stop 03/02/17 at 12:14; Status DC Sodium Chloride 1,000 ml @ 400 mls/hr Q2H30M PRN IV PATENCY; Start 03/01/17 at 12:02; Stop 03/02/17 at 00:01; Status DC Info (PHARMACY MONITORING -- do not chart) 1 each PRN DAILY PRN MC SEE COMMENTS ; Start 03/01/17 at 12:15 Warfarin Sodium (Coumadin) 7.5 mg 1X WARF ONCE PO ; Start 03/01/17 at 16:00; Stop 03/01/17 at 16:01; Status Cancel Warfarin Sodium (Coumadin) 5 mg DAILY16 PO Last administered on 03/05/17 17:36 ; Start 03/01/17 at 16:00 Lidocaine HCl (Xylocaine-Mpf 1% Vial) 0.5 ml 1X STAT ID Last administered on 14:31; Start 03/01/17 at 13:54; Stop 03/01/17 at 13:56; Status DC Fentanyl Citrate (Fentanyl 2ml Vial) 25 mcg PRN Q5MIN PRN IV MILD PAIN; Start 03/02/17 at 07:00; Stop 03/02/17 at 23:00; Status DC Fentanyl Citrate (Fentanyl 2ml Vial) 50 mcg PRN Q5MIN PRN IV MODERATE PAIN; Start 03/02/17 at 07:00; Stop 03/02/17 at 23:00; Status DC Morphine Sulfate 1 mg PRN Q10MIN PRN IV SEVERE PAIN; Start 03/02/17 at 07:00; Stop 03/02/17 at 23:00; Status DC Lidocaine HCl 2 ml PRN 1X PRN ID PRIOR TO IV START; Start 03/02/17 at 07:00; Stop 03/02/17 at 23:00; Status DC Hydromorphone HCl (Dilaudid) 0.5 mg PRN Q10MIN PRN IV SEV PAIN, Second choice; Start 03/02/17 at 07:00; Stop 03/02/17 at 23:00; Status DC Prochlorperazine Edisylate (Compazine) 5 mg PACU PRN PRN IV NAUSEA, MRX1; Start 03/02/17 at 07:00; Stop 03/02/17 at 23:00; Status DC Sodium Chloride 1,000 ml @ 0 mls/hr Q0M IV ; Start 03/02/17 at 13:45; Stop at 13:25; Status DC Vancomycin HCl 500 mg/Sodium Chloride 100 ml @ 100 mls/hr QTUTHSA IV ; Start at 16:00; Status Cancel Bupivacaine HCl/ Epinephrine Bitart (Marcaine-Epi 0.25%-[id number]) 50 ml STK-MED ONCE .ROUTE ; Start 03/02/17 at 11:53; Stop 03/02/17 at 11:54; Status DC Magnesium Sulfate/ Dextrose 50 ml @ 25 mls/hr PRN DAILY PRN IV for Mag < 1.7 on am labs; Start 03/02/17 at 14:00 Propofol 20 ml @ As Directed STK-MED ONCE IV ; Start 03/02/17 at 15:08; Stop at 15:09; Status DC Famotidine (Pepcid) 20 mg STK-MED ONCE .ROUTE ; Start 03/02/17 at 15:08; Stop at 15:09; Status DC Lidocaine HCl (Lidocaine Pf 2% Vial) 5 ml STK-MED ONCE .ROUTE ; Start 03/02/17 at 15:08; Stop 03/02/17 at 15:09; Status DC Ondansetron HCl (Zofran) 4 mg STK-MED ONCE .ROUTE ; Start 03/02/17 at 15:08; Stop 03/02/17 at 15:09; Status DC Fentanyl Citrate (Fentanyl 2ml Vial) 100 mcg STK-MED ONCE .ROUTE ; Start at 15:45; Stop 03/02/17 at 15:46; Status DC Rocuronium [place] (Zemuron) 50 mg STK-MED ONCE .ROUTE ; Start 03/02/17 at 15:45 ; Stop 03/02/17 at 15:46; Status DC Clindamycin Phosphate 0 ml @ As Directed STK-MED ONCE IV ; Start 03/02/17 at 15: 48; Stop 03/02/17 at 15:49; Status DC Clindamycin Phosphate 50 ml @ 100 mls/hr 1X ONCE IV Last administered on 03/02 16:27; Start 03/02/17 at 17:00; Stop 03/02/17 at 17:29; Status DC Oxycodone HCl (Roxicodone) 5 mg PRN Q3HRS PRN PO PAIN; Start 03/02/17 at 17:30 Morphine Sulfate 2 mg PRN Q1HR PRN IV PAIN; Start 03/02/17 at 17:30 Fentanyl Citrate (Fentanyl 2ml Vial) 25 mcg PRN Q1HR PRN IV PAIN; Start at 17:30 Senna/Docusate Sodium (Senna Plus) 1 tab DAILY PO Last administered on 08:45; Start 03/03/17 at 09:00 Polyethylene Glycol (miraLAX PACKET) 17 gm PRN DAILY PRN PO CONSTIPATION Last administered on 03/05/17 08:50; Start 03/02/17 at 17:30 Clindamycin Phosphate 50 ml @ 100 mls/hr Q6H IV ; Start 03/02/17 at 22:30; Stop 03/03/17 at 10:59; Status Cancel Ondansetron HCl (Zofran) 4 mg PRN Q4HRS PRN IV NAUSEA/VOMITING Last administered on 03/04/17 22:26; Start 03/02/17 at 17:30 Aspirin (Ecotrin) 81 mg DAILYWBKFT PO ; Start 03/03/17 at 08:00; Stop 03/03/17 at 08:39; Status DC Magnesium Hydroxide (Milk Of Magnesia) 2,400 mg 1X PRN PRN PO CONSTIPATION; Start 03/03/17 at 06:00; Stop 03/04/17 at 05:59; Status DC Bisacodyl (Dulcolax Supp) 10 mg 1X PRN PRN ND CONSTIPATION; Start 03/03/17 at 16:00; Stop 03/04/17 at 16:00; Status DC Acetaminophen/ Hydrocodone Bitart (Lortab 7.5/325) 1 tab PRN Q4HRS PRN PO PAIN ; Start 03/02/17 at 17:30 Morphine Sulfate 4 mg PRN Q2HR PRN IV PAIN Last administered on 03/05/17 06:42 ; Start 03/02/17 at 17:30 Acetaminophen/ Hydrocodone Bitart (Lortab 7.5/325) 2 tab PRN Q4HRS PRN PO PAIN ; Start 03/02/17 at 17:30 Dextrose (Dextrose 50%-Water Syringe) 12.5 gm PRN Q15MIN PRN IV SEE COMMENTS; Start 03/02/17 at 17:30 Sevoflurane (Ultane) 60 ml STK-MED ONCE IH ; Start 03/02/17 at 17:32; Stop 03/02 at 17:33; Status DC Dexamethasone Sodium Phosphate (Decadron) 20 mg STK-MED ONCE .ROUTE ; Start at 17:32; Stop 03/02/17 at 17:33; Status DC Phenylephrine HCl 1 mg STK-MED ONCE IV ; Start 03/02/17 at 17:32; Stop 03/02/17 at 17:33; Status DC Vancomycin HCl 1 gm/Sodium Chloride 250 ml @ 250 mls/hr QTUTHSA IV Last administered on 03/03/17 18:42; Start 03/03/17 at 16:00; Stop 03/04/17 at 17:34 ; Status DC Vancomycin HCl 1 each 1X ONCE MC ; Start 03/06/17 at 05:00; Stop 03/06/17 at 05 :01; Status Cancel Lidocaine HCl (Xylocaine-Mpf 1% Vial) 0.5 ml 1X STAT ID Last administered on 08:20; Start 03/03/17 at 08:05; Stop 03/03/17 at 08:10; Status DC Sodium Chloride 1,000 ml @ 1,000 mls/hr Q1H PRN IV hypotension; Start 03/03/17 at 08:08; Stop 03/03/17 at 14:07; Status DC Diphenhydramine HCl (Benadryl) 25 mg 1X PRN PRN IV ITCHING; Start 03/03/17 at 08:15; Stop 03/04/17 at 08:14; Status DC Diphenhydramine HCl (Benadryl) 25 mg 1X PRN PRN IV ITCHING; Start 03/03/17 at 08:15; Stop 03/04/17 at 08:14; Status DC Sodium Chloride 1,000 ml @ 400 mls/hr Q2H30M PRN IV PATENCY; Start 03/03/17 at 08:08; Stop 03/03/17 at 20:07; Status DC Info (PHARMACY MONITORING -- do not chart) 1 each PRN DAILY PRN MC SEE COMMENTS ; Start 03/03/17 at 08:15; Status UNV Info (PHARMACY MONITORING -- do not chart) 1 each PRN DAILY PRN MC SEE COMMENTS ; Start 03/03/17 at 08:15; Status UNV Calcium Carbonate/ Glycine (Oscal) 2,000 mg TIDAC PO Last administered on 17:36; Start 03/03/17 at 11:30 Ciprofloxacin (Cipro) 500 mg DAILY PO ; Start 03/06/17 at 09:00 Lorazepam (Ativan) 2 mg 1X ONCE PO Last administered on 03/05/17 20:44; Start 03/05/17 at 20:30; Stop 03/05/17 at 20:31; Status DC Lidocaine HCl (Xylocaine-Mpf 1% Vial) 2 ml STK-MED ONCE .ROUTE ; Start 03/06/17 at 08:09; Stop 03/06/17 at 08:10; Status DC Sodium Chloride 1,000 ml @ 1,000 mls/hr Q1H PRN IV hypotension; Start 03/06/17 at 08:46; Stop 03/06/17 at 14:45 Albumin Human 200 ml @ 200 mls/hr 1X PRN PRN IV Hypotension; Start 03/06/17 at 09:00; Stop 03/06/17 at 19:00 Acetaminophen (Tylenol) 500 mg 1X PRN PRN PO MILD PAIN / TEMP; Start 03/06/17 at 09:00; Stop 03/06/17 at 19:00 Diphenhydramine HCl (Benadryl) 25 mg 1X PRN PRN IV ITCHING; Start 03/06/17 at 09:00; Stop 03/06/17 at 19:00 Sodium Chloride 1,000 ml @ 400 mls/hr Q2H30M PRN IV PATENCY; Start 03/06/17 at 08:46; Stop 03/06/17 at 20:45 Info (PHARMACY MONITORING -- do not chart) 1 each PRN DAILY PRN MC SEE COMMENTS ; Start 03/06/17 at 09:00; Stop 03/06/17 at 09:00; Status DC Info (PHARMACY MONITORING -- do not chart) 1 each PRN DAILY PRN MC SEE COMMENTS ; Start 03/06/17 at 09:00; Status Cancel Active Scripts Active Levetiracetam 500 Mg Tablet 500 Mg PO BID Morphine Sulfate Er (Morphine Sulfate) 30 Mg Tablet.er 30 Mg PO TID Lidoderm (Lidocaine) 700 Mg Adh..patch 1 Patch TD DAILY Ventolin Hfa Inhaler (Albuterol Sulfate) 18 Gm Hfa.aer.ad 2 Puff INH Q4HRS PRN Metoprolol Tartrate 50 Mg Tablet 50 Mg PO BID Synthroid (Levothyroxine Sodium) 175 Mcg Tablet 175 Mcg PO DAILY07 Isosorbide Mononitrate Er (Isosorbide Mononitrate) 30 Mg Tab.er.24h 30 Mg PO DAILY Reported Ketorolac Tromethamine 5 Ml Drops 1 Drop OS QID Maxidex (Dexamethasone) 5 Ml Drops.susp 1 Drop OS Q4HRS Vigamox (Moxifloxacin Hcl) 3 Ml Drops 1 Drop EACHEYE TID Ropinirole Hcl 0.25 Mg Tablet 0.25 Mg PO Oxycodone Hcl 5 Mg Capsule 5 Mg PO PRN Midodrine Hcl 5 Mg Tablet 5 Mg PO Citalopram Hbr (Citalopram Hydrobromide) 20 Mg Tablet 1 Tab PO DAILY Trazodone Hcl 50 Mg Tablet 0.5-1 Tab PO QHS Risperidone 0.5 Mg Tablet 1 Tab PO QHS Bromsite (Bromfenac Sodium) 5 Ml Drops 5 Ml LEFTEYE DAILY Vigamox (Moxifloxacin Hcl) 3 Ml Drops 1 Drop LEFTEYE TID Prednisolone Acetate 5 Ml Drops.susp 1 Drop OS Q1HR Famotidine 20 Mg Tablet 20 Mg PO HS Coumadin (Warfarin Sodium) 5 Mg Tablet 1 Tab PO DAILY Nephro-Jimmy Tablet (Folic Acid/Vitamin B Comp W-C) 0.8 Mg Tablet 1 Tab PO DAILY Carafate (Sucralfate) 1 Gm Tablet 1 Tab PO BID Nitrostat (Nitroglycerin) 0.4 Mg Tab.subl 0.4 Mg SL PRN Q5MIN PRN Calcium Carbonate 500 Mg/5 Ml Oral.susp 2,000 Mg PO TID Aranesp Syringe (Darbepoetin Jace In Polysorbat) 100 Mcg/0.5 Ml Disp.syrin 100 Mcg SQ WEEKLY Voltaren (Diclofenac Sodium) 100 Gm Gel..gram. 1 Gm TP BID Clopidogrel (Clopidogrel Bisulfate) 75 Mg Tablet 75 Mg PO DAILY07 Renvela (Sevelamer Carbonate) 800 Mg Tablet Tab PO TID Vitamin D2 (Ergocalciferol (Vitamin D2)) 50,000 Unit Capsule 50,000 Unit PO WEEKLY Atorvastatin Calcium 80 Mg Tablet 80 Mg PO HS Allergies Allergies: Coded Allergies: iodine (Verified Allergy, Severe, THROAT SWELLING, 03/29/16) lisinopril (Verified Allergy, Severe, 03/16/16) Fish Containing Products (Verified Allergy, Intermediate, 03/16/16) Penicillins (Verified Allergy, Intermediate, SEE COMMENT, 04/13/16) 05/19/15 Pt doesnt know reaction; ID starting Meropenem, HAS TOLERATED CEFAZOLIN piperacillin (Verified Allergy, Intermediate, Hives, 03/16/16) tazobactam (Verified Allergy, Intermediate, 03/16/16) ROS Review of System Patient denies fevers, chills, weight loss, dyspnea, angina, abdominal pain, change in bowels, or dysuria. 14 point review of systems is negative. Physical Exam Physical Examination PHYSICAL EXAMINATION: Vital signs: see above. General appearance is normal and in no acute distress. HEENT: Normocephalic and nontraumatic. Eyes, nose, ears, and throat are unremarkable. Neck is supple. No lymphadenopathy. No bruits are heard over the carotid artery. No crepitus. NEUROLOGICAL EXAMINATION: Mental Status Examination: Alert. Oriented to time, place, and person. Answers questions and follows commends. He has some intermittent myoclonic activity of the right arm, occasionally of the left arm, and does seem to have a lower level of consciousness with that activity, lasting less than 15 seconds, but he has no full blown generalized convulsive activity. Pupils are equal round and reactive to light and accommodation. Extraocular movements are intact. Visual field exam shows no defect on the direct confrontation. No motor or sensory deficits on the facial exam. Uvula in the midline and the soft palate elevated symmetrically. No deviation of the tongue to any direction. Gross hearing is normal. Shoulder shrug normal. Muscle tone is normal. Muscle strength is 4/5 on left, 5-/5 on right. Deep tendon reflexes are 1+ all around. Plantar reflex is with flexion response bilaterally. Vrhqgm-cc-ptuk test performance is accurate. Alternative movements are accurate. Gait not tested. Sensory exam shows stocking loss. There is no extinction. No cerebellar signs are elicited. Vitals VITALS Vital Signs Date Time Temp Pulse Resp B/P (MAP) Pulse Ox O2 Delivery O2 Flow Rate FiO2 03/06/17 07:35 Nasal Cannula 2.0 03/06/17 03:00 97.5 82 16 140/74 (96) 99 97.5 Labs Labs Laboratory Tests Test 03/04/17 16:17 03/04/17 21:54 03/05/17 07:15 03/05/17 07:34 Glucose (Fingerstick) 195 mg/dL (70-99) 226 mg/dL (70-99) 158 mg/dL (70-99) Erythrocyte Sedimentation Rate 110 (0-15) Prothrombin Time 14.2 SEC (11.7-14.0) Prothromb Time International Ratio 1.2 (0.8-1.1) Sodium Level 138 mmol/L (136-145) Potassium Level 5.0 mmol/L (3.5-5.1) Chloride Level 97 mmol/L (98-107) Carbon Dioxide Level 32 mmol/L (21-32) Anion Gap 9 (6-14) Blood Urea Nitrogen 54 mg/dL (8-26) Creatinine 8.3 mg/dL (0.7-1.3) Estimated GFR (Cockcroft-Gault) 8.3 Glucose Level 156 mg/dL (70-99) Calcium Level 8.0 mg/dL (8.5-10.1) Phosphorus Level 9.7 mg/dL (2.6-4.7) Magnesium Level 2.4 mg/dL (1.8-2.4) C-Reactive Protein, Quantitative 48.4 mg/L (0-3.3) Albumin 3.3 g/dL (3.4-5.0) Test 03/05/17 11:45 03/05/17 17:00 03/05/17 21:09 03/06/17 03:44 Glucose (Fingerstick) 171 mg/dL (70-99) 171 mg/dL (70-99) 126 mg/dL (70-99) White Blood Count 5.7 x10^3/uL (4.0-11.0) Red Blood Count 3.46 x10^6/uL (4.30-5.70) Hemoglobin 10.6 g/dL (13.0-17.5) Hematocrit 33.1 % (39.0-53.0) Mean Corpuscular Volume 96 fL (79-100) Mean Corpuscular Hemoglobin 31 pg (25-35) Mean Corpuscular Hemoglobin Concent 32 g/dL (31-37) Red Cell Distribution Width 15.5 % (11.5-14.5) Platelet Count 127 x10^3/uL (140-400) Prothrombin Time 15.4 SEC (11.7-14.0) Prothromb Time International Ratio 1.3 (0.8-1.1) Sodium Level 136 mmol/L (136-145) Potassium Level 4.8 mmol/L (3.5-5.1) Chloride Level 94 mmol/L (98-107) Carbon Dioxide Level 29 mmol/L (21-32) Anion Gap 13 (6-14) Blood Urea Nitrogen 62 mg/dL (8-26) Creatinine 9.9 mg/dL (0.7-1.3) Estimated GFR (Cockcroft-Gault) 6.8 Glucose Level 103 mg/dL (70-99) Calcium Level 7.9 mg/dL (8.5-10.1) Phosphorus Level 11.3 mg/dL (2.6-4.7) Magnesium Level 2.3 mg/dL (1.8-2.4) Albumin 3.3 g/dL (3.4-5.0) Test 03/06/17 07:38 03/06/17 13:33 Glucose (Fingerstick) 96 mg/dL (70-99) 88 mg/dL (70-99) Laboratory Tests Test 03/05/17 17:00 03/05/17 21:09 03/06/17 03:44 03/06/17 07:38 Glucose (Fingerstick) 171 mg/dL (70-99) 126 mg/dL (70-99) 96 mg/dL (70-99) White Blood Count 5.7 x10^3/uL (4.0-11.0) Red Blood Count 3.46 x10^6/uL (4.30-5.70) Hemoglobin 10.6 g/dL (13.0-17.5) Hematocrit 33.1 % (39.0-53.0) Mean Corpuscular Volume 96 fL (79-100) Mean Corpuscular Hemoglobin 31 pg (25-35) Mean Corpuscular Hemoglobin Concent 32 g/dL (31-37) Red Cell Distribution Width 15.5 % (11.5-14.5) Platelet Count 127 x10^3/uL (140-400) Prothrombin Time 15.4 SEC (11.7-14.0) Prothromb Time International Ratio 1.3 (0.8-1.1) Sodium Level 136 mmol/L (136-145) Potassium Level 4.8 mmol/L (3.5-5.1) Chloride Level 94 mmol/L (98-107) Carbon Dioxide Level 29 mmol/L (21-32) Anion Gap 13 (6-14) Blood Urea Nitrogen 62 mg/dL (8-26) Creatinine 9.9 mg/dL (0.7-1.3) Estimated GFR (Cockcroft-Gault) 6.8 Glucose Level 103 mg/dL (70-99) Calcium Level 7.9 mg/dL (8.5-10.1) Phosphorus Level 11.3 mg/dL (2.6-4.7) Magnesium Level 2.3 mg/dL (1.8-2.4) Albumin 3.3 g/dL (3.4-5.0) Test 03/06/17 13:33 Glucose (Fingerstick) 88 mg/dL (70-99) Images Images Head CT shows no acute abnormality, radiology interpretation pending Assessment/Plan Assessment/Plan Impression: Epilepsy with breakthrough seizures probably just due to missing his morning medications. I find no significant abnormality on the head CT are on his lab studies. I find no evidence that he is having a stroke. Examination is nonfocal. He is not a candidate for tissue plasminogen activator because of this finding in a relative contraindication is the recent foot surgery. Recommendations: Await CT results Consider repeating MRI studies which were negative in November. Right now our MRI scanner is out of service. Consider EEG I wrote for stat levetiracetam 500 mg IV in the nurses placing an IV. I discussed my findings with the patient. If seizures do not dilip, I will transfer him to the ICU. Thank you for letting me help with the patient's care. MULU MIN MD Mar 06, 2017 14:26
--- NOTE | 2017-03-06 14:52 | PDOC ---
PROGRESS NOTES Chief Complaint Chief Complaint Client: cellulitis Assessment and plan Left foot infected wound with osteomyelitis. Enterobacter. 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 on keppra 500mg bid, check keppra level. History of Present Illness History of Present Illness Pain doing okay continue current regimen, no fever no chills no nausea no vomiting very tired and sleepy yesterday and today nurse told me pt was twisting last night, got ativan, when i saw him in HD, he is very sleepy, arousable, but cannot tell me the details about his twisting nor how was his seizure before. then after HD, he told nurse that he might have a stroke with leg numbness Vitals Vitals Vital Signs Date Time Temp Pulse Resp B/P (MAP) Pulse Ox O2 Delivery O2 Flow Rate FiO2 03/06/17 07:35 Nasal Cannula 2.0 03/06/17 03:00 97.5 82 16 140/74 (96) 99 97.5 Physical Exam General: Alert, Cooperative Heart: Regular rate, Normal S1, Normal S2 Lungs: Clear Abdomen: Soft Extremities: Other (+1 dorsalis pedis pulse bilaterally) Skin: Other (wound VAC lower extremity) Labs LABS Laboratory Tests Test 03/05/17 17:00 03/05/17 21:09 03/06/17 03:44 03/06/17 07:38 Glucose (Fingerstick) 171 mg/dL (70-99) 126 mg/dL (70-99) 96 mg/dL (70-99) White Blood Count 5.7 x10^3/uL (4.0-11.0) Red Blood Count 3.46 x10^6/uL (4.30-5.70) Hemoglobin 10.6 g/dL (13.0-17.5) Hematocrit 33.1 % (39.0-53.0) Mean Corpuscular Volume 96 fL (79-100) Mean Corpuscular Hemoglobin 31 pg (25-35) Mean Corpuscular Hemoglobin Concent 32 g/dL (31-37) Red Cell Distribution Width 15.5 % (11.5-14.5) Platelet Count 127 x10^3/uL (140-400) Prothrombin Time 15.4 SEC (11.7-14.0) Prothromb Time International Ratio 1.3 (0.8-1.1) Sodium Level 136 mmol/L (136-145) Potassium Level 4.8 mmol/L (3.5-5.1) Chloride Level 94 mmol/L (98-107) Carbon Dioxide Level 29 mmol/L (21-32) Anion Gap 13 (6-14) Blood Urea Nitrogen 62 mg/dL (8-26) Creatinine 9.9 mg/dL (0.7-1.3) Estimated GFR (Cockcroft-Gault) 6.8 Glucose Level 103 mg/dL (70-99) Calcium Level 7.9 mg/dL (8.5-10.1) Phosphorus Level 11.3 mg/dL (2.6-4.7) Magnesium Level 2.3 mg/dL (1.8-2.4) Albumin 3.3 g/dL (3.4-5.0) Test 03/06/17 13:33 Glucose (Fingerstick) 88 mg/dL (70-99) Review of Systems Review of Systems no fever, chills, sob or chest pain Assessment and Plan Assessmemt and Plan Problems Medical Problems: (1) End stage renal disease Status: Acute (2) Foot ulcer, left Status: Acute Problems: Comment Review of Relevant I have reviewed the following items lila (where applicable) has been applied. Labs Laboratory Tests Test 03/04/17 16:17 03/04/17 21:54 03/05/17 07:15 03/05/17 07:34 Glucose (Fingerstick) 195 mg/dL (70-99) 226 mg/dL (70-99) 158 mg/dL (70-99) Erythrocyte Sedimentation Rate 110 (0-15) Prothrombin Time 14.2 SEC (11.7-14.0) Prothromb Time International Ratio 1.2 (0.8-1.1) Sodium Level 138 mmol/L (136-145) Potassium Level 5.0 mmol/L (3.5-5.1) Chloride Level 97 mmol/L (98-107) Carbon Dioxide Level 32 mmol/L (21-32) Anion Gap 9 (6-14) Blood Urea Nitrogen 54 mg/dL (8-26) Creatinine 8.3 mg/dL (0.7-1.3) Estimated GFR (Cockcroft-Gault) 8.3 Glucose Level 156 mg/dL (70-99) Calcium Level 8.0 mg/dL (8.5-10.1) Phosphorus Level 9.7 mg/dL (2.6-4.7) Magnesium Level 2.4 mg/dL (1.8-2.4) C-Reactive Protein, Quantitative 48.4 mg/L (0-3.3) Albumin 3.3 g/dL (3.4-5.0) Test 03/05/17 11:45 03/05/17 17:00 03/05/17 21:09 03/06/17 03:44 Glucose (Fingerstick) 171 mg/dL (70-99) 171 mg/dL (70-99) 126 mg/dL (70-99) White Blood Count 5.7 x10^3/uL (4.0-11.0) Red Blood Count 3.46 x10^6/uL (4.30-5.70) Hemoglobin 10.6 g/dL (13.0-17.5) Hematocrit 33.1 % (39.0-53.0) Mean Corpuscular Volume 96 fL (79-100) Mean Corpuscular Hemoglobin 31 pg (25-35) Mean Corpuscular Hemoglobin Concent 32 g/dL (31-37) Red Cell Distribution Width 15.5 % (11.5-14.5) Platelet Count 127 x10^3/uL (140-400) Prothrombin Time 15.4 SEC (11.7-14.0) Prothromb Time International Ratio 1.3 (0.8-1.1) Sodium Level 136 mmol/L (136-145) Potassium Level 4.8 mmol/L (3.5-5.1) Chloride Level 94 mmol/L (98-107) Carbon Dioxide Level 29 mmol/L (21-32) Anion Gap 13 (6-14) Blood Urea Nitrogen 62 mg/dL (8-26) Creatinine 9.9 mg/dL (0.7-1.3) Estimated GFR (Cockcroft-Gault) 6.8 Glucose Level 103 mg/dL (70-99) Calcium Level 7.9 mg/dL (8.5-10.1) Phosphorus Level 11.3 mg/dL (2.6-4.7) Magnesium Level 2.3 mg/dL (1.8-2.4) Albumin 3.3 g/dL (3.4-5.0) Test 03/06/17 07:38 03/06/17 13:33 Glucose (Fingerstick) 96 mg/dL (70-99) 88 mg/dL (70-99) Laboratory Tests Test 03/05/17 17:00 03/05/17 21:09 03/06/17 03:44 03/06/17 07:38 Glucose (Fingerstick) 171 mg/dL (70-99) 126 mg/dL (70-99) 96 mg/dL (70-99) White Blood Count 5.7 x10^3/uL (4.0-11.0) Red Blood Count 3.46 x10^6/uL (4.30-5.70) Hemoglobin 10.6 g/dL (13.0-17.5) Hematocrit 33.1 % (39.0-53.0) Mean Corpuscular Volume 96 fL (79-100) Mean Corpuscular Hemoglobin 31 pg (25-35) Mean Corpuscular Hemoglobin Concent 32 g/dL (31-37) Red Cell Distribution Width 15.5 % (11.5-14.5) Platelet Count 127 x10^3/uL (140-400) Prothrombin Time 15.4 SEC (11.7-14.0) Prothromb Time International Ratio 1.3 (0.8-1.1) Sodium Level 136 mmol/L (136-145) Potassium Level 4.8 mmol/L (3.5-5.1) Chloride Level 94 mmol/L (98-107) Carbon Dioxide Level 29 mmol/L (21-32) Anion Gap 13 (6-14) Blood Urea Nitrogen 62 mg/dL (8-26) Creatinine 9.9 mg/dL (0.7-1.3) Estimated GFR (Cockcroft-Gault) 6.8 Glucose Level 103 mg/dL (70-99) Calcium Level 7.9 mg/dL (8.5-10.1) Phosphorus Level 11.3 mg/dL (2.6-4.7) Magnesium Level 2.3 mg/dL (1.8-2.4) Albumin 3.3 g/dL (3.4-5.0) Test 03/06/17 13:33 Glucose (Fingerstick) 88 mg/dL (70-99) Microbiology 02/28/17 Blood Culture - Final, Complete NO GROWTH AFTER 5 DAYS 02/28/17 Gram Stain - Final, Complete Medications Current Medications Morphine Sulfate 4 mg PRN Q15MIN PRN IV/SQ PAIN GREATER THAN 3/10 Last administered on 02/28/17 19:05; Start 02/28/17 at 18:00; Stop 03/01/17 at 17:59 ; Status DC Morphine Sulfate 4 mg PRN Q2HR PRN IV PAIN Last administered on 03/01/17 19:08 ; Start 02/28/17 at 19:15; Stop 03/01/17 at 19:14; Status DC Citalopram Hydrobromide (CeleXA) 20 mg DAILY PO Last administered on 03/05/17 08:46; Start 03/01/17 at 09:00 Clopidogrel Bisulfate (Plavix) 75 mg DAILY07 PO Last administered on 03/05/17 06:42; Start 03/01/17 at 07:00 Darbepoetin Jace (Aranesp) 100 mcg WEEKLY SQ ; Start 03/07/17 at 09:00 Dexamethasone (Maxidex) 1 drop Q4HRS OS Last administered on 03/05/17 21:09; Start 02/28/17 at 20:00 Diclofenac Sodium (Voltaren) 1 ayaz BID TP Last administered on 03/05/17 08:51 ; Start 02/28/17 at 21:00 Ergocalciferol (Vitamin D2) 50,000 unit WEEKLY PO ; Start 03/07/17 at 09:00 Famotidine (Pepcid) 20 mg HS PO Last administered on 03/05/17 21:10; Start at 21:00 Vitamin B Complex/ Vitamin C (Fernanda-Jimmy) 1 tab DAILY PO Last administered on 08:45; Start 03/01/17 at 09:00 Isosorbide Mononitrate (Imdur) 30 mg DAILY PO Last administered on 03/04/17 09 :13; Start 03/01/17 at 09:00 Ketorolac Tromethamine (Acular) 1 drop QID OS Last administered on 03/05/17 21 :09; Start 02/28/17 at 21:00 Levetiracetam (Keppra) 500 mg BID PO Last administered on 03/05/17 21:10; Start 02/28/17 at 21:00 Levothyroxine Sodium (Synthroid) 175 mcg DAILY07 PO Last administered on 06:42; Start 03/01/17 at 07:00 Lidocaine (Lidoderm) 1 patch DAILY TD Last administered on 03/05/17 08:50; Start 03/01/17 at 09:00 Metoprolol Tartrate (Lopressor) 50 mg BID PO Last administered on 03/05/17 21: 14; Start 02/28/17 at 21:00 Morphine Sulfate (Ms Contin) 30 mg TID PO Last administered on 03/05/17 00:22 ; Start 02/28/17 at 21:00 Moxifloxacin HCl (Vigamox) 1 drop TID OU Last administered on 03/05/17 21:09; Start 02/28/17 at 21:00 Nitroglycerin (Nitrostat) 0.4 mg PRN Q5MIN PRN SL CHEST PAIN; Start 02/28/17 at 19:45 Sucralfate (Carafate) 1 gm BID PO Last administered on 03/05/17 21:09; Start 02/28/17 at 21:00 Trazodone HCl (Desyrel) 25 mg QHS PO Last administered on 03/05/17 00:21; Start 02/28/17 at 21:00 Warfarin Sodium (Coumadin) 5 mg DAILY16 PO ; Start 03/01/17 at 16:00; Stop 03/01 at 16:00; Status DC Albuterol Sulfate (Ventolin Neb Soln) 2.5 mg PRN Q4HRS PRN NEB SHORTNESS OF BREATH Last administered on 03/05/17 11:02; Start 02/28/17 at 20:00 Atorvastatin Calcium (Lipitor) 80 mg QHS PO Last administered on 03/05/17 21: 10; Start 02/28/17 at 21:00 Non-Formulary Medication 5 ml DAILY LEFTEYE ; Start 03/01/17 at 09:00; Status UNV Calcium Carbonate/ Glycine (Oscal) 2,000 mg TID PO Last administered on 21:00; Start 03/01/17 at 09:00; Stop 03/03/17 at 09:21; Status DC Non-Formulary Medication 1 drop Q1HR OS ; Start 02/28/17 at 20:00; Status UNV Risperidone (RisperDAL) 0.5 mg QHS PO Last administered on 03/05/17 21:13; Start 02/28/17 at 21:00 Acetaminophen (Tylenol) 650 mg PRN Q6HRS PRN PO FEVER; Start 02/28/17 at 19:45 Ondansetron HCl (Zofran) 4 mg PRN Q6HRS PRN IV NAUSEA/VOMITING Last administered on 03/02/17 08:35; Start 02/28/17 at 19:45; Stop 03/02/17 at 17:27 ; Status DC Morphine Sulfate 2 mg PRN Q2HR PRN IV PAIN Last administered on 03/02/17 12:39 ; Start 02/28/17 at 19:45; Stop 03/02/17 at 17:27; Status DC Tramadol HCl (Ultram) 50 mg PRN Q6HRS PRN PO PAIN; Start 02/28/17 at 19:45 Hydralazine HCl (Apresoline) 10 mg PRN Q4HRS PRN IVP ELEVATED BP, SEE COMMENTS ; Start 02/28/17 at 19:45 Docusate Sodium (Colace) 100 mg PRN DAILY PRN PO CONSTIPATION; Start 02/28/17 at 19:45 Vancomycin HCl 2 gm/Sodium Chloride 500 ml @ 250 mls/hr 1X ONCE IV ; Start at 20:30; Stop 02/28/17 at 22:29; Status Cancel Vancomycin HCl (Vanco Per Pharmacy) 1 each PRN DAILY PRN MC SEE COMMENTS Last administered on 03/04/17 13:17; Start 02/28/17 at 20:00; Stop 03/04/17 at 17:34 ; Status DC Cefepime HCl 1 gm/ Sodium Chloride 50 ml @ 100 mls/hr Q12HR IV ; Start at 20:30; Status Cancel Warfarin Sodium (Coumadin Per Physician) 1 each PRN DAILY PRN MC SEE COMMENTS Last administered on 03/06/17 13:31; Start 02/28/17 at 20:00 Vancomycin HCl 1.25 gm/Sodium Chloride 250 ml @ 167 mls/hr Q48H IV ; Start at 23:00; Stop 03/02/17 at 23:00; Status DC Vancomycin HCl 1 each 1X ONCE MC ; Start 03/04/17 at 22:30; Stop 03/04/17 at 22 :30; Status DC Cefepime HCl 1 gm/ Sodium Chloride 50 ml @ 100 mls/hr QHS IV Last administered on 03/05/17 00:22; Start 02/28/17 at 23:30; Stop 03/05/17 at 15:38 ; Status DC Vancomycin HCl 2 gm/Sodium Chloride 500 ml @ 250 mls/hr 1X ONCE IV Last administered on 02/28/17 23:30; Start 02/28/17 at 23:30; Stop 03/01/17 at 01:29 ; Status DC Insulin Aspart (NovoLOG) 0-9 UNITS TIDWMEALS SQ Last administered on 03/05/17 17:40; Start 03/01/17 at 08:00 Dextrose (Dextrose 50%-Water Syringe) 12.5 gm PRN Q15MIN PRN IV SEE COMMENTS; Start 03/01/17 at 03:00; Status Cancel Vancomycin HCl 1 each 1X ONCE MC Last administered on 03/02/17 05:00; Start 03/02/17 at 05:00; Stop 03/02/17 at 05:01; Status DC Sodium Chloride 1,000 ml @ 1,000 mls/hr Q1H PRN IV hypotension; Start 03/01/17 at 12:02; Stop 03/01/17 at 18:01; Status DC Diphenhydramine HCl (Benadryl) 25 mg 1X PRN PRN IV ITCHING; Start 03/01/17 at 12:15; Stop 03/02/17 at 12:14; Status DC Diphenhydramine HCl (Benadryl) 25 mg 1X PRN PRN IV ITCHING; Start 03/01/17 at 12:15; Stop 03/02/17 at 12:14; Status DC Sodium Chloride 1,000 ml @ 400 mls/hr Q2H30M PRN IV PATENCY; Start 03/01/17 at 12:02; Stop 03/02/17 at 00:01; Status DC Info (PHARMACY MONITORING -- do not chart) 1 each PRN DAILY PRN MC SEE COMMENTS ; Start 03/01/17 at 12:15 Warfarin Sodium (Coumadin) 7.5 mg 1X WARF ONCE PO ; Start 03/01/17 at 16:00; Stop 03/01/17 at 16:01; Status Cancel Warfarin Sodium (Coumadin) 5 mg DAILY16 PO Last administered on 03/05/17 17:36 ; Start 03/01/17 at 16:00 Lidocaine HCl (Xylocaine-Mpf 1% Vial) 0.5 ml 1X STAT ID Last administered on 14:31; Start 03/01/17 at 13:54; Stop 03/01/17 at 13:56; Status DC Fentanyl Citrate (Fentanyl 2ml Vial) 25 mcg PRN Q5MIN PRN IV MILD PAIN; Start 03/02/17 at 07:00; Stop 03/02/17 at 23:00; Status DC Fentanyl Citrate (Fentanyl 2ml Vial) 50 mcg PRN Q5MIN PRN IV MODERATE PAIN; Start 03/02/17 at 07:00; Stop 03/02/17 at 23:00; Status DC Morphine Sulfate 1 mg PRN Q10MIN PRN IV SEVERE PAIN; Start 03/02/17 at 07:00; Stop 03/02/17 at 23:00; Status DC Lidocaine HCl 2 ml PRN 1X PRN ID PRIOR TO IV START; Start 03/02/17 at 07:00; Stop 03/02/17 at 23:00; Status DC Hydromorphone HCl (Dilaudid) 0.5 mg PRN Q10MIN PRN IV SEV PAIN, Second choice; Start 03/02/17 at 07:00; Stop 03/02/17 at 23:00; Status DC Prochlorperazine Edisylate (Compazine) 5 mg PACU PRN PRN IV NAUSEA, MRX1; Start 03/02/17 at 07:00; Stop 03/02/17 at 23:00; Status DC Sodium Chloride 1,000 ml @ 0 mls/hr Q0M IV ; Start 03/02/17 at 13:45; Stop at 13:25; Status DC Vancomycin HCl 500 mg/Sodium Chloride 100 ml @ 100 mls/hr QTUTHSA IV ; Start at 16:00; Status Cancel Bupivacaine HCl/ Epinephrine Bitart (Marcaine-Epi 0.25%-1:[id number]) 50 ml STK-MED ONCE .ROUTE ; Start 03/02/17 at 11:53; Stop 03/02/17 at 11:54; Status DC Magnesium Sulfate/ Dextrose 50 ml @ 25 mls/hr PRN DAILY PRN IV for Mag < 1.7 on am labs; Start 03/02/17 at 14:00 Propofol 20 ml @ As Directed STK-MED ONCE IV ; Start 03/02/17 at 15:08; Stop at 15:09; Status DC Famotidine (Pepcid) 20 mg STK-MED ONCE .ROUTE ; Start 03/02/17 at 15:08; Stop at 15:09; Status DC Lidocaine HCl (Lidocaine Pf 2% Vial) 5 ml STK-MED ONCE .ROUTE ; Start 03/02/17 at 15:08; Stop 03/02/17 at 15:09; Status DC Ondansetron HCl (Zofran) 4 mg STK-MED ONCE .ROUTE ; Start 03/02/17 at 15:08; Stop 03/02/17 at 15:09; Status DC Fentanyl Citrate (Fentanyl 2ml Vial) 100 mcg STK-MED ONCE .ROUTE ; Start at 15:45; Stop 03/02/17 at 15:46; Status DC Rocuronium [place] (Zemuron) 50 mg STK-MED ONCE .ROUTE ; Start 03/02/17 at 15:45 ; Stop 03/02/17 at 15:46; Status DC Clindamycin Phosphate 0 ml @ As Directed STK-MED ONCE IV ; Start 03/02/17 at 15: 48; Stop 03/02/17 at 15:49; Status DC Clindamycin Phosphate 50 ml @ 100 mls/hr 1X ONCE IV Last administered on 03/02t 16:27; Start 03/02/17 at 17:00; Stop 03/02/17 at 17:29; Status DC Oxycodone HCl (Roxicodone) 5 mg PRN Q3HRS PRN PO PAIN; Start 03/02/17 at 17:30 Morphine Sulfate 2 mg PRN Q1HR PRN IV PAIN; Start 03/02/17 at 17:30 Fentanyl Citrate (Fentanyl 2ml Vial) 25 mcg PRN Q1HR PRN IV PAIN; Start at 17:30 Senna/Docusate Sodium (Senna Plus) 1 tab DAILY PO Last administered on 08:45; Start 03/03/17 at 09:00 Polyethylene Glycol (miraLAX PACKET) 17 gm PRN DAILY PRN PO CONSTIPATION Last administered on 03/05/17 08:50; Start 03/02/17 at 17:30 Clindamycin Phosphate 50 ml @ 100 mls/hr Q6H IV ; Start 03/02/17 at 22:30; Stop 03/03/17 at 10:59; Status Cancel Ondansetron HCl (Zofran) 4 mg PRN Q4HRS PRN IV NAUSEA/VOMITING Last administered on 03/04/17 22:26; Start 03/02/17 at 17:30 Aspirin (Ecotrin) 81 mg DAILYWBKFT PO ; Start 03/03/17 at 08:00; Stop 03/03/17 at 08:39; Status DC Magnesium Hydroxide (Milk Of Magnesia) 2,400 mg 1X PRN PRN PO CONSTIPATION; Start 03/03/17 at 06:00; Stop 03/04/17 at 05:59; Status DC Bisacodyl (Dulcolax Supp) 10 mg 1X PRN PRN DE CONSTIPATION; Start 03/03/17 at 16:00; Stop 03/04/17 at 16:00; Status DC Acetaminophen/ Hydrocodone Bitart (Lortab 7.5/325) 1 tab PRN Q4HRS PRN PO PAIN ; Start 03/02/17 at 17:30 Morphine Sulfate 4 mg PRN Q2HR PRN IV PAIN Last administered on 03/05/17 06:42 ; Start 03/02/17 at 17:30 Acetaminophen/ Hydrocodone Bitart (Lortab 7.5/325) 2 tab PRN Q4HRS PRN PO PAIN ; Start 03/02/17 at 17:30 Dextrose (Dextrose 50%-Water Syringe) 12.5 gm PRN Q15MIN PRN IV SEE COMMENTS; Start 03/02/17 at 17:30 Sevoflurane (Ultane) 60 ml STK-MED ONCE IH ; Start 03/02/17 at 17:32; Stop 03/02 at 17:33; Status DC Dexamethasone Sodium Phosphate (Decadron) 20 mg STK-MED ONCE .ROUTE ; Start at 17:32; Stop 03/02/17 at 17:33; Status DC Phenylephrine HCl 1 mg STK-MED ONCE IV ; Start 03/02/17 at 17:32; Stop 03/02/17 at 17:33; Status DC Vancomycin HCl 1 gm/Sodium Chloride 250 ml @ 250 mls/hr QTUTHSA IV Last administered on 03/03/17 18:42; Start 03/03/17 at 16:00; Stop 03/04/17 at 17:34 ; Status DC Vancomycin HCl 1 each 1X ONCE MC ; Start 03/06/17 at 05:00; Stop 03/06/17 at 05 :01; Status Cancel Lidocaine HCl (Xylocaine-Mpf 1% Vial) 0.5 ml 1X STAT ID Last administered on 08:20; Start 03/03/17 at 08:05; Stop 03/03/17 at 08:10; Status DC Sodium Chloride 1,000 ml @ 1,000 mls/hr Q1H PRN IV hypotension; Start 03/03/17 at 08:08; Stop 03/03/17 at 14:07; Status DC Diphenhydramine HCl (Benadryl) 25 mg 1X PRN PRN IV ITCHING; Start 03/03/17 at 08:15; Stop 03/04/17 at 08:14; Status DC Diphenhydramine HCl (Benadryl) 25 mg 1X PRN PRN IV ITCHING; Start 03/03/17 at 08:15; Stop 03/04/17 at 08:14; Status DC Sodium Chloride 1,000 ml @ 400 mls/hr Q2H30M PRN IV PATENCY; Start 03/03/17 at 08:08; Stop 03/03/17 at 20:07; Status DC Info (PHARMACY MONITORING -- do not chart) 1 each PRN DAILY PRN MC SEE COMMENTS ; Start 03/03/17 at 08:15; Status UNV Info (PHARMACY MONITORING -- do not chart) 1 each PRN DAILY PRN MC SEE COMMENTS ; Start 03/03/17 at 08:15; Status UNV Calcium Carbonate/ Glycine (Oscal) 2,000 mg TIDAC PO Last administered on 17:36; Start 03/03/17 at 11:30 Ciprofloxacin (Cipro) 500 mg DAILY PO ; Start 03/06/17 at 09:00 Lorazepam (Ativan) 2 mg 1X ONCE PO Last administered on 03/05/17 20:44; Start 03/05/17 at 20:30; Stop 03/05/17 at 20:31; Status DC Lidocaine HCl (Xylocaine-Mpf 1% Vial) 2 ml STK-MED ONCE .ROUTE ; Start 03/06/17 at 08:09; Stop 03/06/17 at 08:10; Status DC Sodium Chloride 1,000 ml @ 1,000 mls/hr Q1H PRN IV hypotension; Start 03/06/17 at 08:46; Stop 03/06/17 at 14:45; Status DC Albumin Human 200 ml @ 200 mls/hr 1X PRN PRN IV Hypotension; Start 03/06/17 at 09:00; Stop 03/06/17 at 19:00 Acetaminophen (Tylenol) 500 mg 1X PRN PRN PO MILD PAIN / TEMP; Start 03/06/17 at 09:00; Stop 03/06/17 at 19:00 Diphenhydramine HCl (Benadryl) 25 mg 1X PRN PRN IV ITCHING; Start 03/06/17 at 09:00; Stop 03/06/17 at 19:00 Sodium Chloride 1,000 ml @ 400 mls/hr Q2H30M PRN IV PATENCY; Start 03/06/17 at 08:46; Stop 03/06/17 at 20:45 Info (PHARMACY MONITORING -- do not chart) 1 each PRN DAILY PRN MC SEE COMMENTS ; Start 03/06/17 at 09:00; Stop 03/06/17 at 09:00; Status DC Info (PHARMACY MONITORING -- do not chart) 1 each PRN DAILY PRN MC SEE COMMENTS ; Start 03/06/17 at 09:00; Status Cancel Levetiracetam 500 mg/Sodium Chloride 100 ml @ 400 mls/hr 1X STAT IV ; Start at 14:11; Stop 03/06/17 at 14:25; Status DC Active Scripts Active Levetiracetam 500 Mg Tablet 500 Mg PO BID Morphine Sulfate Er (Morphine Sulfate) 30 Mg Tablet.er 30 Mg PO TID Lidoderm (Lidocaine) 700 Mg Adh..patch 1 Patch TD DAILY Ventolin Hfa Inhaler (Albuterol Sulfate) 18 Gm Hfa.aer.ad 2 Puff INH Q4HRS PRN Metoprolol Tartrate 50 Mg Tablet 50 Mg PO BID Synthroid (Levothyroxine Sodium) 175 Mcg Tablet 175 Mcg PO DAILY07 Isosorbide Mononitrate Er (Isosorbide Mononitrate) 30 Mg Tab.er.24h 30 Mg PO DAILY Reported Ketorolac Tromethamine 5 Ml Drops 1 Drop OS QID Maxidex (Dexamethasone) 5 Ml Drops.susp 1 Drop OS Q4HRS Vigamox (Moxifloxacin Hcl) 3 Ml Drops 1 Drop EACHEYE TID Ropinirole Hcl 0.25 Mg Tablet 0.25 Mg PO Oxycodone Hcl 5 Mg Capsule 5 Mg PO PRN Midodrine Hcl 5 Mg Tablet 5 Mg PO Citalopram Hbr (Citalopram Hydrobromide) 20 Mg Tablet 1 Tab PO DAILY Trazodone Hcl 50 Mg Tablet 0.5-1 Tab PO QHS Risperidone 0.5 Mg Tablet 1 Tab PO QHS Bromsite (Bromfenac Sodium) 5 Ml Drops 5 Ml LEFTEYE DAILY Vigamox (Moxifloxacin Hcl) 3 Ml Drops 1 Drop LEFTEYE TID Prednisolone Acetate 5 Ml Drops.susp 1 Drop OS Q1HR Famotidine 20 Mg Tablet 20 Mg PO HS Coumadin (Warfarin Sodium) 5 Mg Tablet 1 Tab PO DAILY Nephro-Jimmy Tablet (Folic Acid/Vitamin B Comp W-C) 0.8 Mg Tablet 1 Tab PO DAILY Carafate (Sucralfate) 1 Gm Tablet 1 Tab PO BID Nitrostat (Nitroglycerin) 0.4 Mg Tab.subl 0.4 Mg SL PRN Q5MIN PRN Calcium Carbonate 500 Mg/5 Ml Oral.susp 2,000 Mg PO TID Aranesp Syringe (Darbepoetin Jace In Polysorbat) 100 Mcg/0.5 Ml Disp.syrin 100 Mcg SQ WEEKLY Voltaren (Diclofenac Sodium) 100 Gm Gel..gram. 1 Gm TP BID Clopidogrel (Clopidogrel Bisulfate) 75 Mg Tablet 75 Mg PO DAILY07 Renvela (Sevelamer Carbonate) 800 Mg Tablet Tab PO TID Vitamin D2 (Ergocalciferol (Vitamin D2)) 50,000 Unit Capsule 50,000 Unit PO WEEKLY Atorvastatin Calcium 80 Mg Tablet 80 Mg PO HS Vitals/I & O Vital Sign - Last 24 Hours 03/05/17 03/05/17 03/05/17 03/05/17 15:00 19:00 19:50 21:11 Temp 98.4 98.1 98.4 98.1 Pulse 84 84 Resp 19 20 18 B/P (MAP) 111/57 (75) 130/76 (94) Pulse Ox 92 99 92 O2 Delivery Room Air Room Air Nasal Cannula Nasal Cannula O2 Flow Rate 2.0 2.0 2.0 2.0 03/05/17 03/05/17 03/06/17 03/06/17 21:14 23:00 03:00 07:35 Temp 97.7 97.5 97.7 97.5 Pulse 84 80 82 Resp 16 16 B/P (MAP) 182/90 145/80 (101) 140/74 (96) Pulse Ox 100 99 O2 Delivery Room Air Room Air Nasal Cannula O2 Flow Rate 2.0 2.0 2.0 Intake and Output 03/05/17 03/05/17 03/06/17 15:00 23:00 07:00 Intake Total 120 ml Output Total 0 ml Balance 120 ml SKYLAR TSE MD Mar 06, 2017 14:52
[2017-03-06] MEDS: WARFARIN 5 MG TABLET. PO SCH (16:32)
[2017-03-06] MEDS: ATORVASTATIN CALCIUM 40 MG TABLET. PO SCH (22:34)
[2017-03-06] MEDS: traZODone 50 MG TABLET. PO SCH (22:34)
[2017-03-06] MEDS: risperiDONE 0.25 MG TABLET. PO SCH (22:35)
[2017-03-06] MEDS: FAMOTIDINE 20 MG TABLET. PO SCH (22:35)
[2017-03-07] MEDS: DEXAMETHASONE 0.1% OPHTH SOLUTION 5ML BOTTLE. OS SCH ×6 (01:11→21:44)
[2017-03-07 03:00] VITALS: BP 146/81
[2017-03-07] MEDS: LEVOTHYROXINE 175 MCG TABLET PO SCH (06:10)
[2017-03-07] MEDS: CLOPIDOGREL BISULFATE 75 MG TABLET PO SCH (06:10)
[2017-03-07 07:00] VITALS: BP 130/69
[2017-03-07] MEDS: INSULIN ASPART 300 UNITS/3 ML INSULN.PEN SQ SCH ×3 (08:00→16:54)
[2017-03-07] MEDS: CALCIUM CARBONATE 500 MG TABLET PO SCH ×3 (08:05→16:53)
[2017-03-07] MEDS: SENNOSIDES/DOCUSATE 8.6/50MG TABLET. PO SCH (08:06)
[2017-03-07] MEDS: FOLIC/VIT B COMP W-C (RENAL) TABLET. PO SCH (08:06)
[2017-03-07] MEDS: ISOSORBIDE MONONITRATE ER 30 MG TAB.ER.24H PO SCH (08:06)
[2017-03-07] MEDS: SUCRALFATE 1 GM TABLET. PO SCH ×2 (08:06→21:44)
[2017-03-07] MEDS: CIPROFLOXACIN HCL 250 MG TABLET. PO SCH (08:07)
[2017-03-07] MEDS: CITALOPRAM 20 MG TABLET. PO SCH (08:08)
[2017-03-07] MEDS: METOPROLOL TART IMMED RELEASE 50 MG TABLET. PO SCH ×2 (08:09→21:46)
[2017-03-07] MEDS: levETIRAcetam 500 MG TABLET PO SCH ×2 (08:09→21:46)
[2017-03-07] MEDS: KETOROLAC TROMETHAMINE 0.5% OPHTH SOLUTION 3ML BOTTLE. OS SCH ×4 (08:10→21:44)
[2017-03-07] MEDS: MOXIFLOXACIN 0.5% OPHTH SOLUTION 3ML BOTTLE. OU SCH ×3 (08:10→21:44)
[2017-03-07] MEDS: MORPHINE ER 30 MG TABLET.ER PO SCH ×3 (08:12→21:00)
[2017-03-07] MEDS: LIDOCAINE (700MG/PATCH) PATCH. TD SCH (08:13)
[2017-03-07] MEDS: DICLOFENAC SODIUM 1% TOPICAL GEL 100GM TUBE. TP SCH ×2 (08:13→21:00)
[2017-03-07 08:26] LABS: INR 1.5 (0.8-1.1); PROTHROMBIN TIME PATIENT 17.2 SEC (11.7-14.0)
[2017-03-07 08:28] LABS: ALBUMIN 2.9 g/dL (3.4-5.0); CALCIUM 7.9 mg/dL (8.5-10.1); CREATININE 7.6 mg/dL (0.7-1.3); GFR 9.2; PHOSPHORUS 7.2 mg/dL (2.6-4.7)
[2017-03-07] MEDS ORDERED: ERGOCALCIFEROL (VITAMIN D2) 50,000 UNIT CAPSULE. PO SCH (09:00)
[2017-03-07 11:00] VITALS: BP 156/75
[2017-03-07] MEDS ORDERED: CIPR250T30 PO (11:11)
--- NOTE | 2017-03-07 11:37 | PDOC ---
Subjective: Subjective: Feeling better, denies pain, asks to go home. Objective: Objective: D/w RN. Vital Signs: Vital Signs Date Time Temp Pulse Resp B/P (MAP) Pulse Ox O2 Delivery O2 Flow Rate FiO2 03/07/17 08:12 Room Air 03/07/17 08:09 77 130/69 03/07/17 07:00 98.9 18 92 98.9 03/07/17 03:00 2.0 Labs: Laboratory Tests Test 03/06/17 13:33 03/06/17 16:40 03/06/17 20:25 03/07/17 07:08 Glucose (Fingerstick) 88 mg/dL (70-99) 102 mg/dL (70-99) 101 mg/dL (70-99) 116 mg/dL (70-99) Test 03/07/17 11:06 Glucose (Fingerstick) 197 mg/dL (70-99) PE: GEN: NAD LUNGS: clear HEART: RRR ABD: non-tender NEURO/PSYCH: A & O 3 A/P: Seizure Osteomyelitis s/p transmetatarsal amputation Right-sided abd pain - resolved -- Improved GI-snell. Continue H2 roberta. DC per primary. CARINE OTTO Mar 07, 2017 11:37
--- NOTE | 2017-03-07 13:13 | PDOC ---
PROGRESS NOTES Assessment Problems Medical Problems: (1) End stage renal disease Status: Acute (2) Foot ulcer, left Status: Acute Epilepsy He had several more seizures last night which stopped after a 2nd IV dose of levetiracetam. No evidence that he is having a stroke. Plan Hold on repeating MRI studies which were negative in November. EEG Increase levetiracetam to 1000 mg bid Observe one more night Subjective Feels fine today, now states that he has been having these seizures often on even before his admission in November, but did not tell anyone Objective Vital Signs Date Time Temp Pulse Resp B/P (MAP) Pulse Ox O2 Delivery O2 Flow Rate FiO2 03/07/17 11:00 98.2 78 18 156/75 (102) 92 Room Air 98.2 03/07/17 03:00 2.0 Intake and Output 03/07/17 07:00 Intake Total 440 ml Output Total 0 ml Balance 440 ml Intake Oral 240 ml IV Total 200 ml Output Urine Total 0 ml Review of Relevant I have reviewed the following items lila (where applicable) has been applied. Labs Laboratory Tests Test 03/05/17 17:00 03/05/17 21:09 03/06/17 03:44 03/06/17 07:38 Glucose (Fingerstick) 171 mg/dL (70-99) 126 mg/dL (70-99) 96 mg/dL (70-99) White Blood Count 5.7 x10^3/uL (4.0-11.0) Red Blood Count 3.46 x10^6/uL (4.30-5.70) Hemoglobin 10.6 g/dL (13.0-17.5) Hematocrit 33.1 % (39.0-53.0) Mean Corpuscular Volume 96 fL (79-100) Mean Corpuscular Hemoglobin 31 pg (25-35) Mean Corpuscular Hemoglobin Concent 32 g/dL (31-37) Red Cell Distribution Width 15.5 % (11.5-14.5) Platelet Count 127 x10^3/uL (140-400) Prothrombin Time 15.4 SEC (11.7-14.0) Prothromb Time International Ratio 1.3 (0.8-1.1) Sodium Level 136 mmol/L (136-145) Potassium Level 4.8 mmol/L (3.5-5.1) Chloride Level 94 mmol/L (98-107) Carbon Dioxide Level 29 mmol/L (21-32) Anion Gap 13 (6-14) Blood Urea Nitrogen 62 mg/dL (8-26) Creatinine 9.9 mg/dL (0.7-1.3) Estimated GFR (Cockcroft-Gault) 6.8 Glucose Level 103 mg/dL (70-99) Calcium Level 7.9 mg/dL (8.5-10.1) Phosphorus Level 11.3 mg/dL (2.6-4.7) Magnesium Level 2.3 mg/dL (1.8-2.4) Albumin 3.3 g/dL (3.4-5.0) Test 03/06/17 13:33 03/06/17 16:40 03/06/17 20:25 03/07/17 07:08 Glucose (Fingerstick) 88 mg/dL (70-99) 102 mg/dL (70-99) 101 mg/dL (70-99) 116 mg/dL (70-99) Test 03/07/17 08:00 03/07/17 11:06 Prothrombin Time 17.2 SEC (11.7-14.0) Prothromb Time International Ratio 1.5 (0.8-1.1) Sodium Level 133 mmol/L (136-145) Potassium Level 4.0 mmol/L (3.5-5.1) Chloride Level 95 mmol/L (98-107) Carbon Dioxide Level 29 mmol/L (21-32) Anion Gap 9 (6-14) Blood Urea Nitrogen 45 mg/dL (8-26) Creatinine 7.6 mg/dL (0.7-1.3) Estimated GFR (Cockcroft-Gault) 9.2 Glucose Level 133 mg/dL (70-99) Calcium Level 7.9 mg/dL (8.5-10.1) Phosphorus Level 7.2 mg/dL (2.6-4.7) Magnesium Level 2.3 mg/dL (1.8-2.4) Albumin 2.9 g/dL (3.4-5.0) Glucose (Fingerstick) 197 mg/dL (70-99) Laboratory Tests Test 03/06/17 13:33 03/06/17 16:40 03/06/17 20:25 03/07/17 07:08 Glucose (Fingerstick) 88 mg/dL (70-99) 102 mg/dL (70-99) 101 mg/dL (70-99) 116 mg/dL (70-99) Test 03/07/17 08:00 03/07/17 11:06 Prothrombin Time 17.2 SEC (11.7-14.0) Prothromb Time International Ratio 1.5 (0.8-1.1) Sodium Level 133 mmol/L (136-145) Potassium Level 4.0 mmol/L (3.5-5.1) Chloride Level 95 mmol/L (98-107) Carbon Dioxide Level 29 mmol/L (21-32) Anion Gap 9 (6-14) Blood Urea Nitrogen 45 mg/dL (8-26) Creatinine 7.6 mg/dL (0.7-1.3) Estimated GFR (Cockcroft-Gault) 9.2 Glucose Level 133 mg/dL (70-99) Calcium Level 7.9 mg/dL (8.5-10.1) Phosphorus Level 7.2 mg/dL (2.6-4.7) Magnesium Level 2.3 mg/dL (1.8-2.4) Albumin 2.9 g/dL (3.4-5.0) Glucose (Fingerstick) 197 mg/dL (70-99) Microbiology 02/28/17 Blood Culture - Final, Complete NO GROWTH AFTER 5 DAYS 02/28/17 Gram Stain - Final, Complete Medications Current Medications Morphine Sulfate 4 mg PRN Q15MIN PRN IV/SQ PAIN GREATER THAN 3/10 Last administered on 02/28/17 19:05; Start 02/28/17 at 18:00; Stop 03/01/17 at 17:59 ; Status DC Morphine Sulfate 4 mg PRN Q2HR PRN IV PAIN Last administered on 03/01/17 19:08 ; Start 02/28/17 at 19:15; Stop 03/01/17 at 19:14; Status DC Citalopram Hydrobromide (CeleXA) 20 mg DAILY PO Last administered on 03/07/17 08:08; Start 03/01/17 at 09:00 Clopidogrel Bisulfate (Plavix) 75 mg DAILY07 PO Last administered on 03/07/17 06:10; Start 03/01/17 at 07:00 Darbepoetin Jace (Aranesp) 100 mcg WEEKLYHS SQ ; Start 03/07/17 at 21:00 Dexamethasone (Maxidex) 1 drop Q4HRS OS Last administered on 03/07/17 12:02; Start 02/28/17 at 20:00 Diclofenac Sodium (Voltaren) 1 ayaz BID TP Last administered on 03/05/17 08:51 ; Start 02/28/17 at 21:00 Ergocalciferol (Vitamin D2) 50,000 unit WEEKLY PO Last administered on 08:06; Start 03/07/17 at 09:00 Famotidine (Pepcid) 20 mg HS PO Last administered on 03/06/17 22:35; Start at 21:00 Vitamin B Complex/ Vitamin C (Fernanda-Jimmy) 1 tab DAILY PO Last administered on 08:06; Start 03/01/17 at 09:00 Isosorbide Mononitrate (Imdur) 30 mg DAILY PO Last administered on 03/07/17 08 :06; Start 03/01/17 at 09:00 Ketorolac Tromethamine (Acular) 1 drop QID OS Last administered on 03/07/17 12 :05; Start 02/28/17 at 21:00 Levetiracetam (Keppra) 500 mg BID PO Last administered on 03/07/17 08:09; Start 02/28/17 at 21:00; Stop 03/07/17 at 12:15; Status DC Levothyroxine Sodium (Synthroid) 175 mcg DAILY07 PO Last administered on 06:10; Start 03/01/17 at 07:00 Lidocaine (Lidoderm) 1 patch DAILY TD Last administered on 03/05/17 08:50; Start 03/01/17 at 09:00 Metoprolol Tartrate (Lopressor) 50 mg BID PO Last administered on 03/07/17 08: 09; Start 02/28/17 at 21:00 Morphine Sulfate (Ms Contin) 30 mg TID PO Last administered on 03/05/17 00:22 ; Start 02/28/17 at 21:00 Moxifloxacin HCl (Vigamox) 1 drop TID OU Last administered on 03/07/17 08:10; Start 02/28/17 at 21:00 Nitroglycerin (Nitrostat) 0.4 mg PRN Q5MIN PRN SL CHEST PAIN; Start 02/28/17 at 19:45 Sucralfate (Carafate) 1 gm BID PO Last administered on 03/07/17 08:06; Start 02/28/17 at 21:00 Trazodone HCl (Desyrel) 25 mg QHS PO Last administered on 03/06/17 22:34; Start 02/28/17 at 21:00 Warfarin Sodium (Coumadin) 5 mg DAILY16 PO ; Start 03/01/17 at 16:00; Stop 03/01 at 16:00; Status DC Albuterol Sulfate (Ventolin Neb Soln) 2.5 mg PRN Q4HRS PRN NEB SHORTNESS OF BREATH Last administered on 03/05/17 11:02; Start 02/28/17 at 20:00 Atorvastatin Calcium (Lipitor) 80 mg QHS PO Last administered on 03/06/17 22: 34; Start 02/28/17 at 21:00 Non-Formulary Medication 5 ml DAILY LEFTEYE ; Start 03/01/17 at 09:00; Status UNV Calcium Carbonate/ Glycine (Oscal) 2,000 mg TID PO Last administered on 21:00; Start 03/01/17 at 09:00; Stop 03/03/17 at 09:21; Status DC Non-Formulary Medication 1 drop Q1HR OS ; Start 02/28/17 at 20:00; Status UNV Risperidone (RisperDAL) 0.5 mg QHS PO Last administered on 03/06/17 22:35; Start 02/28/17 at 21:00 Acetaminophen (Tylenol) 650 mg PRN Q6HRS PRN PO FEVER; Start 02/28/17 at 19:45 Ondansetron HCl (Zofran) 4 mg PRN Q6HRS PRN IV NAUSEA/VOMITING Last administered on 03/02/17 08:35; Start 02/28/17 at 19:45; Stop 03/02/17 at 17:27 ; Status DC Morphine Sulfate 2 mg PRN Q2HR PRN IV PAIN Last administered on 7/21/17at 12:39 ; Start 02/28/17 at 19:45; Stop 03/02/17 at 17:27; Status DC Tramadol HCl (Ultram) 50 mg PRN Q6HRS PRN PO PAIN; Start 02/28/17 at 19:45 Hydralazine HCl (Apresoline) 10 mg PRN Q4HRS PRN IVP ELEVATED BP, SEE COMMENTS ; Start 02/28/17 at 19:45 Docusate Sodium (Colace) 100 mg PRN DAILY PRN PO CONSTIPATION; Start 02/28/17 at 19:45 Vancomycin HCl 2 gm/Sodium Chloride 500 ml @ 250 mls/hr 1X ONCE IV ; Start at 20:30; Stop 02/28/17 at 22:29; Status Cancel Vancomycin HCl (Vanco Per Pharmacy) 1 each PRN DAILY PRN MC SEE COMMENTS Last administered on 03/04/17 13:17; Start 02/28/17 at 20:00; Stop 03/04/17 at 17:34 ; Status DC Cefepime HCl 1 gm/ Sodium Chloride 50 ml @ 100 mls/hr Q12HR IV ; Start at 20:30; Status Cancel Warfarin Sodium (Coumadin Per Physician) 1 each PRN DAILY PRN MC SEE COMMENTS Last administered on 03/07/17 11:45; Start 02/28/17 at 20:00 Vancomycin HCl 1.25 gm/Sodium Chloride 250 ml @ 167 mls/hr Q48H IV ; Start at 23:00; Stop 03/02/17 at 23:00; Status DC Vancomycin HCl 1 each 1X ONCE MC ; Start 03/04/17 at 22:30; Stop 03/04/17 at 22 :30; Status DC Cefepime HCl 1 gm/ Sodium Chloride 50 ml @ 100 mls/hr QHS IV Last administered on 03/05/17 00:22; Start 02/28/17 at 23:30; Stop 03/05/17 at 15:38 ; Status DC Vancomycin HCl 2 gm/Sodium Chloride 500 ml @ 250 mls/hr 1X ONCE IV Last administered on 02/28/17 23:30; Start 02/28/17 at 23:30; Stop 03/01/17 at 01:29 ; Status DC Insulin Aspart (NovoLOG) 0-9 UNITS TIDWMEALS SQ Last administered on 03/07/17 12:06; Start 03/01/17 at 08:00 Dextrose (Dextrose 50%-Water Syringe) 12.5 gm PRN Q15MIN PRN IV SEE COMMENTS; Start 03/01/17 at 03:00; Status Cancel Vancomycin HCl 1 each 1X ONCE MC Last administered on 03/02/17 05:00; Start 03/02/17 at 05:00; Stop 03/02/17 at 05:01; Status DC Sodium Chloride 1,000 ml @ 1,000 mls/hr Q1H PRN IV hypotension; Start 03/01/17 at 12:02; Stop 03/01/17 at 18:01; Status DC Diphenhydramine HCl (Benadryl) 25 mg 1X PRN PRN IV ITCHING; Start 03/01/17 at 12:15; Stop 03/02/17 at 12:14; Status DC Diphenhydramine HCl (Benadryl) 25 mg 1X PRN PRN IV ITCHING; Start 03/01/17 at 12:15; Stop 03/02/17 at 12:14; Status DC Sodium Chloride 1,000 ml @ 400 mls/hr Q2H30M PRN IV PATENCY; Start 03/01/17 at 12:02; Stop 03/02/17 at 00:01; Status DC Info (PHARMACY MONITORING -- do not chart) 1 each PRN DAILY PRN MC SEE COMMENTS ; Start 03/01/17 at 12:15 Warfarin Sodium (Coumadin) 7.5 mg 1X WARF ONCE PO ; Start 03/01/17 at 16:00; Stop 03/01/17 at 16:01; Status Cancel Warfarin Sodium (Coumadin) 5 mg DAILY16 PO Last administered on 03/06/17 16:32 ; Start 03/01/17 at 16:00 Lidocaine HCl (Xylocaine-Mpf 1% Vial) 0.5 ml 1X STAT ID Last administered on 14:31; Start 03/01/17 at 13:54; Stop 03/01/17 at 13:56; Status DC Fentanyl Citrate (Fentanyl 2ml Vial) 25 mcg PRN Q5MIN PRN IV MILD PAIN; Start 03/02/17 at 07:00; Stop 03/02/17 at 23:00; Status DC Fentanyl Citrate (Fentanyl 2ml Vial) 50 mcg PRN Q5MIN PRN IV MODERATE PAIN; Start 03/02/17 at 07:00; Stop 03/02/17 at 23:00; Status DC Morphine Sulfate 1 mg PRN Q10MIN PRN IV SEVERE PAIN; Start 03/02/17 at 07:00; Stop 03/02/17 at 23:00; Status DC Lidocaine HCl 2 ml PRN 1X PRN ID PRIOR TO IV START; Start 03/02/17 at 07:00; Stop 03/02/17 at 23:00; Status DC Hydromorphone HCl (Dilaudid) 0.5 mg PRN Q10MIN PRN IV SEV PAIN, Second choice; Start 03/02/17 at 07:00; Stop 03/02/17 at 23:00; Status DC Prochlorperazine Edisylate (Compazine) 5 mg PACU PRN PRN IV NAUSEA, MRX1; Start 03/02/17 at 07:00; Stop 03/02/17 at 23:00; Status DC Sodium Chloride 1,000 ml @ 0 mls/hr Q0M IV ; Start 03/02/17 at 13:45; Stop at 13:25; Status DC Vancomycin HCl 500 mg/Sodium Chloride 100 ml @ 100 mls/hr QTUTHSA IV ; Start at 16:00; Status Cancel Bupivacaine HCl/ Epinephrine Bitart (Marcaine-Epi 0.25%-[id number]) 50 ml STK-MED ONCE .ROUTE ; Start 03/02/17 at 11:53; Stop 03/02/17 at 11:54; Status DC Magnesium Sulfate/ Dextrose 50 ml @ 25 mls/hr PRN DAILY PRN IV for Mag < 1.7 on am labs; Start 03/02/17 at 14:00 Propofol 20 ml @ As Directed STK-MED ONCE IV ; Start 03/02/17 at 15:08; Stop at 15:09; Status DC Famotidine (Pepcid) 20 mg STK-MED ONCE .ROUTE ; Start 03/02/17 at 15:08; Stop at 15:09; Status DC Lidocaine HCl (Lidocaine Pf 2% Vial) 5 ml STK-MED ONCE .ROUTE ; Start 03/02/17 at 15:08; Stop 03/02/17 at 15:09; Status DC Ondansetron HCl (Zofran) 4 mg STK-MED ONCE .ROUTE ; Start 03/02/17 at 15:08; Stop 03/02/17 at 15:09; Status DC Fentanyl Citrate (Fentanyl 2ml Vial) 100 mcg STK-MED ONCE .ROUTE ; Start at 15:45; Stop 03/02/17 at 15:46; Status DC Rocuronium [place] (Zemuron) 50 mg STK-MED ONCE .ROUTE ; Start 03/02/17 at 15:45 ; Stop 03/02/17 at 15:46; Status DC Clindamycin Phosphate 0 ml @ As Directed STK-MED ONCE IV ; Start 03/02/17 at 15: 48; Stop 03/02/17 at 15:49; Status DC Clindamycin Phosphate 50 ml @ 100 mls/hr 1X ONCE IV Last administered on 03/02 16:27; Start 03/02/17 at 17:00; Stop 03/02/17 at 17:29; Status DC Oxycodone HCl (Roxicodone) 5 mg PRN Q3HRS PRN PO PAIN; Start 03/02/17 at 17:30 Morphine Sulfate 2 mg PRN Q1HR PRN IV PAIN; Start 03/02/17 at 17:30 Fentanyl Citrate (Fentanyl 2ml Vial) 25 mcg PRN Q1HR PRN IV PAIN; Start at 17:30 Senna/Docusate Sodium (Senna Plus) 1 tab DAILY PO Last administered on 08:06; Start 03/03/17 at 09:00 Polyethylene Glycol (miraLAX PACKET) 17 gm PRN DAILY PRN PO CONSTIPATION Last administered on 03/05/17 08:50; Start 03/02/17 at 17:30 Clindamycin Phosphate 50 ml @ 100 mls/hr Q6H IV ; Start 03/02/17 at 22:30; Stop 03/03/17 at 10:59; Status Cancel Ondansetron HCl (Zofran) 4 mg PRN Q4HRS PRN IV NAUSEA/VOMITING Last administered on 03/04/17 22:26; Start 03/02/17 at 17:30 Aspirin (Ecotrin) 81 mg DAILYWBKFT PO ; Start 03/03/17 at 08:00; Stop 03/03/17 at 08:39; Status DC Magnesium Hydroxide (Milk Of Magnesia) 2,400 mg 1X PRN PRN PO CONSTIPATION; Start 03/03/17 at 06:00; Stop 03/04/17 at 05:59; Status DC Bisacodyl (Dulcolax Supp) [address] CONSTIPATION; Start 03/03/17 at 16:00; Stop 03/04/17 at 16:00; Status DC Acetaminophen/ Hydrocodone Bitart (Lortab 7.5/325) 1 tab PRN Q4HRS PRN PO PAIN ; Start 03/02/17 at 17:30 Morphine Sulfate 4 mg PRN Q2HR PRN IV PAIN Last administered on 03/05/17 06:42 ; Start 03/02/17 at 17:30 Acetaminophen/ Hydrocodone Bitart (Lortab 7.5/325) 2 tab PRN Q4HRS PRN PO PAIN ; Start 03/02/17 at 17:30 Dextrose (Dextrose 50%-Water Syringe) 12.5 gm PRN Q15MIN PRN IV SEE COMMENTS; Start 03/02/17 at 17:30 Sevoflurane (Ultane) 60 ml STK-MED ONCE IH ; Start 03/02/17 at 17:32; Stop 03/02 at 17:33; Status DC Dexamethasone Sodium Phosphate (Decadron) 20 mg STK-MED ONCE .ROUTE ; Start at 17:32; Stop 03/02/17 at 17:33; Status DC Phenylephrine HCl 1 mg STK-MED ONCE IV ; Start 03/02/17 at 17:32; Stop 03/02/17 at 17:33; Status DC Vancomycin HCl 1 gm/Sodium Chloride 250 ml @ 250 mls/hr QTUTHSA IV Last administered on 03/03/17 18:42; Start 03/03/17 at 16:00; Stop 03/04/17 at 17:34 ; Status DC Vancomycin HCl 1 each 1X ONCE MC ; Start 03/06/17 at 05:00; Stop 03/06/17 at 05 :01; Status Cancel Lidocaine HCl (Xylocaine-Mpf 1% Vial) 0.5 ml 1X STAT ID Last administered on 7 /22/17at 08:20; Start 03/03/17 at 08:05; Stop 03/03/17 at 08:10; Status DC Sodium Chloride 1,000 ml @ 1,000 mls/hr Q1H PRN IV hypotension; Start 03/03/17 at 08:08; Stop 03/03/17 at 14:07; Status DC Diphenhydramine HCl (Benadryl) 25 mg 1X PRN PRN IV ITCHING; Start 03/03/17 at 08:15; Stop 03/04/17 at 08:14; Status DC Diphenhydramine HCl (Benadryl) 25 mg 1X PRN PRN IV ITCHING; Start 03/03/17 at 08:15; Stop 03/04/17 at 08:14; Status DC Sodium Chloride 1,000 ml @ 400 mls/hr Q2H30M PRN IV PATENCY; Start 03/03/17 at 08:08; Stop 03/03/17 at 20:07; Status DC Info (PHARMACY MONITORING -- do not chart) 1 each PRN DAILY PRN MC SEE COMMENTS ; Start 03/03/17 at 08:15; Status UNV Info (PHARMACY MONITORING -- do not chart) 1 each PRN DAILY PRN MC SEE COMMENTS ; Start 03/03/17 at 08:15; Status UNV Calcium Carbonate/ Glycine (Oscal) 2,000 mg TIDAC PO Last administered on 12:00; Start 03/03/17 at 11:30 Ciprofloxacin (Cipro) 500 mg DAILY PO Last administered on 03/07/17 08:07; Start 03/06/17 at 09:00 Lorazepam (Ativan) 2 mg 1X ONCE PO Last administered on 03/05/17 20:44; Start 03/05/17 at 20:30; Stop 03/05/17 at 20:31; Status DC Lidocaine HCl (Xylocaine-Mpf 1% Vial) 2 ml STK-MED ONCE .ROUTE ; Start 03/06/17 at 08:09; Stop 03/06/17 at 08:10; Status DC Sodium Chloride 1,000 ml @ 1,000 mls/hr Q1H PRN IV hypotension; Start 03/06/17 at 08:46; Stop 03/06/17 at 14:45; Status DC Albumin Human 200 ml @ 200 mls/hr 1X PRN PRN IV Hypotension; Start 03/06/17 at 09:00; Stop 03/06/17 at 19:00; Status DC Acetaminophen (Tylenol) 500 mg 1X PRN PRN PO MILD PAIN / TEMP; Start 03/06/17 at 09:00; Stop 03/06/17 at 19:00; Status DC Diphenhydramine HCl (Benadryl) 25 mg 1X PRN PRN IV ITCHING; Start 03/06/17 at 09:00; Stop 03/06/17 at 19:00; Status DC Sodium Chloride 1,000 ml @ 400 mls/hr Q2H30M PRN IV PATENCY; Start 03/06/17 at 08:46; Stop 03/06/17 at 20:45; Status DC Info (PHARMACY MONITORING -- do not chart) 1 each PRN DAILY PRN MC SEE COMMENTS ; Start 03/06/17 at 09:00; Stop 03/06/17 at 09:00; Status DC Info (PHARMACY MONITORING -- do not chart) 1 each PRN DAILY PRN MC SEE COMMENTS ; Start 03/06/17 at 09:00; Status Cancel Levetiracetam 500 mg/Sodium Chloride 100 ml @ 400 mls/hr 1X STAT IV Last administered on 03/06/17t 14:40; Start 03/06/17 at 14:11; Stop 03/06/17 at 14:25 ; Status DC Levetiracetam 500 mg/Sodium Chloride 100 ml @ 400 mls/hr 1X ONCE IV Last administered on 03/06/17t 19:19; Start 03/06/17 at 19:30; Stop 03/06/17 at 19:44 ; Status DC Levetiracetam (Keppra) 1,000 mg BID PO ; Start 03/07/17 at 21:00 Active Scripts Active Cipro (Ciprofloxacin Hcl) 250 Mg Tablet 500 Mg PO DAILY 7 Days Levetiracetam 500 Mg Tablet 500 Mg PO BID Morphine Sulfate Er (Morphine Sulfate) 30 Mg Tablet.er 30 Mg PO TID Lidoderm (Lidocaine) 700 Mg Adh..patch 1 Patch TD DAILY Ventolin Hfa Inhaler (Albuterol Sulfate) 18 Gm Hfa.aer.ad 2 Puff INH Q4HRS PRN Metoprolol Tartrate 50 Mg Tablet 50 Mg PO BID Synthroid (Levothyroxine Sodium) 175 Mcg Tablet 175 Mcg PO DAILY07 Isosorbide Mononitrate Er (Isosorbide Mononitrate) 30 Mg Tab.er.24h 30 Mg PO DAILY Reported Ketorolac Tromethamine 5 Ml Drops 1 Drop OS QID Maxidex (Dexamethasone) 5 Ml Drops.susp 1 Drop OS Q4HRS Ropinirole Hcl 0.25 Mg Tablet 0.25 Mg PO Oxycodone Hcl 5 Mg Capsule 5 Mg PO PRN Citalopram Hbr (Citalopram Hydrobromide) 20 Mg Tablet 1 Tab PO DAILY Trazodone Hcl 50 Mg Tablet 0.5-1 Tab PO QHS Risperidone 0.5 Mg Tablet 1 Tab PO QHS Bromsite (Bromfenac Sodium) 5 Ml Drops 5 Ml LEFTEYE DAILY Vigamox (Moxifloxacin Hcl) 3 Ml Drops 1 Drop LEFTEYE TID Prednisolone Acetate 5 Ml Drops.susp 1 Drop OS Q1HR Famotidine 20 Mg Tablet 20 Mg PO HS Coumadin (Warfarin Sodium) 5 Mg Tablet 1 Tab PO DAILY Nephro-Jimmy Tablet (Folic Acid/Vitamin B Comp W-C) 0.8 Mg Tablet 1 Tab PO DAILY Carafate (Sucralfate) 1 Gm Tablet 1 Tab PO BID Nitrostat (Nitroglycerin) 0.4 Mg Tab.subl 0.4 Mg SL PRN Q5MIN PRN Calcium Carbonate 500 Mg/5 Ml Oral.susp 2,000 Mg PO TID Aranesp Syringe (Darbepoetin Jace In Polysorbat) 100 Mcg/0.5 Ml Disp.syrin 100 Mcg SQ WEEKLY Voltaren (Diclofenac Sodium) 100 Gm Gel..gram. 1 Gm TP BID Clopidogrel (Clopidogrel Bisulfate) 75 Mg Tablet 75 Mg PO DAILY07 Renvela (Sevelamer Carbonate) 800 Mg Tablet Tab PO TID Vitamin D2 (Ergocalciferol (Vitamin D2)) 50,000 Unit Capsule 50,000 Unit PO WEEKLY Atorvastatin Calcium 80 Mg Tablet 80 Mg PO HS Vitals/I & O Vital Sign - Last 24 Hours 03/06/17 03/06/17 03/06/17 03/06/17 13:25 14:00 14:58 15:43 Temp 99.3 99.3 Pulse 107 93 95 91 Resp 16 16 16 16 B/P (MAP) 163/79 (107) 120/63 (82) 115/58 (77) 94/57 (69) Pulse Ox 99 94 96 94 O2 Delivery Nasal Cannula Simple Mask Nasal Cannula Nasal Cannula O2 Flow Rate 8.0 2.0 2.0 03/06/17 03/06/17 03/06/17 03/06/17 16:35 16:38 19:00 19:00 Temp 100.4 100.4 Pulse 93 89 99 Resp 16 22 B/P (MAP) 140/63 (88) 108/63 (78) 135/72 (93) Pulse Ox 96 90 O2 Delivery Nasal Cannula Nasal Cannula Room Air Room Air O2 Flow Rate 2.0 2.0 2.0 03/06/17 03/06/17 03/06/17 03/07/17 22:35 22:52 23:00 03:00 Temp 99.1 97.7 99.1 97.7 Pulse 99 95 80 Resp 22 18 B/P (MAP) 135/72 117/69 (85) 146/81 (102) Pulse Ox 90 93 O2 Delivery Room Air Room Air Room Air O2 Flow Rate 2.0 2.0 03/07/17 03/07/17 03/07/17 03/07/17 07:00 07:40 08:06 08:09 Temp 98.9 98.9 Pulse 77 77 77 Resp 18 B/P (MAP) 130/69 (89) 130/69 130/69 Pulse Ox 92 O2 Delivery Room Air Room Air 03/07/17 03/07/17 08:12 11:00 Temp 98.2 98.2 Pulse 78 Resp 18 B/P (MAP) 156/75 (102) Pulse Ox 92 O2 Delivery Room Air Room Air Intake and Output 03/06/17 03/06/17 03/07/17 15:00 23:00 07:00 Intake Total 440 ml Output Total 0 ml Balance 0 ml [address] yesterday: Comparison is made to a study from 11/07/2015. The ventricles are within normal limits in size. There is no shift of the midline structures. There is no evidence of acute intracranial hemorrhage or mass effect. IMPRESSION: No acute intracranial abnormality is detected. MULU MIN MD Mar 07, 2017 13:13
--- NOTE | 2017-03-07 13:42 | PDOC ---
PROGRESS NOTES Chief Complaint Chief Complaint Client: cellulitis Assessment and plan Left foot infected wound with osteomyelitis. Enterobacter. 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 SW for rehab cont warfarin, INR daily keppra increase to 1000mg bid, level pending. ptot neuro will do EEG today, then dc tmr, home with hh, wound vac care, cipro x7ds. pt dosenot want to go rehab. should be non weight bearing. History of Present Illness History of Present Illness left foot post sx, wound vac on 03/06: nurse told me pt was twisting last night, got ativan, when i saw him in HD, he is very sleepy, arousable, but cannot tell me the details about his twisting nor how was his seizure before. then after HD, he told nurse that he might have a stroke with leg numbness. neuro consulted, head ct neg. 03/07: mental better today, still very sleepy, twitching better. however, when i asked him how his seizure usually looks like, he is not sure, said could be twitching then he told neuro he has more often seizure since 11/2016 Vitals Vitals Vital Signs Date Time Temp Pulse Resp B/P (MAP) Pulse Ox O2 Delivery O2 Flow Rate FiO2 03/07/17 11:00 98.2 78 18 156/75 (102) 92 Room Air 98.2 03/07/17 03:00 2.0 Physical Exam General: Alert, Cooperative Heart: Regular rate, Normal S1, Normal S2 Lungs: Clear Abdomen: Soft Extremities: Other (+1 dorsalis pedis pulse bilaterally) Skin: Other (wound VAC lower extremity) Labs LABS Laboratory Tests Test 03/06/17 16:40 03/06/17 20:25 03/07/17 07:08 03/07/17 08:00 Glucose (Fingerstick) 102 mg/dL (70-99) 101 mg/dL (70-99) 116 mg/dL (70-99) Prothrombin Time 17.2 SEC (11.7-14.0) Prothromb Time International Ratio 1.5 (0.8-1.1) Sodium Level 133 mmol/L (136-145) Potassium Level 4.0 mmol/L (3.5-5.1) Chloride Level 95 mmol/L (98-107) Carbon Dioxide Level 29 mmol/L (21-32) Anion Gap 9 (6-14) Blood Urea Nitrogen 45 mg/dL (8-26) Creatinine 7.6 mg/dL (0.7-1.3) Estimated GFR (Cockcroft-Gault) 9.2 Glucose Level 133 mg/dL (70-99) Calcium Level 7.9 mg/dL (8.5-10.1) Phosphorus Level 7.2 mg/dL (2.6-4.7) Magnesium Level 2.3 mg/dL (1.8-2.4) Albumin 2.9 g/dL (3.4-5.0) Test 03/07/17 11:06 Glucose (Fingerstick) 197 mg/dL (70-99) Review of Systems Review of Systems no fever, chills, sob or chest pain Assessment and Plan Assessmemt and Plan Problems Medical Problems: (1) End stage renal disease Status: Acute (2) Foot ulcer, left Status: Acute Problems: Comment Review of Relevant I have reviewed the following items lila (where applicable) has been applied. Labs Laboratory Tests Test 03/05/17 17:00 03/05/17 21:09 03/06/17 03:44 03/06/17 07:38 Glucose (Fingerstick) 171 mg/dL (70-99) 126 mg/dL (70-99) 96 mg/dL (70-99) White Blood Count 5.7 x10^3/uL (4.0-11.0) Red Blood Count 3.46 x10^6/uL (4.30-5.70) Hemoglobin 10.6 g/dL (13.0-17.5) Hematocrit 33.1 % (39.0-53.0) Mean Corpuscular Volume 96 fL (79-100) Mean Corpuscular Hemoglobin 31 pg (25-35) Mean Corpuscular Hemoglobin Concent 32 g/dL (31-37) Red Cell Distribution Width 15.5 % (11.5-14.5) Platelet Count 127 x10^3/uL (140-400) Prothrombin Time 15.4 SEC (11.7-14.0) Prothromb Time International Ratio 1.3 (0.8-1.1) Sodium Level 136 mmol/L (136-145) Potassium Level 4.8 mmol/L (3.5-5.1) Chloride Level 94 mmol/L (98-107) Carbon Dioxide Level 29 mmol/L (21-32) Anion Gap 13 (6-14) Blood Urea Nitrogen 62 mg/dL (8-26) Creatinine 9.9 mg/dL (0.7-1.3) Estimated GFR (Cockcroft-Gault) 6.8 Glucose Level 103 mg/dL (70-99) Calcium Level 7.9 mg/dL (8.5-10.1) Phosphorus Level 11.3 mg/dL (2.6-4.7) Magnesium Level 2.3 mg/dL (1.8-2.4) Albumin 3.3 g/dL (3.4-5.0) Test 03/06/17 13:33 03/06/17 16:40 03/06/17 20:25 03/07/17 07:08 Glucose (Fingerstick) 88 mg/dL (70-99) 102 mg/dL (70-99) 101 mg/dL (70-99) 116 mg/dL (70-99) Test 03/07/17 08:00 03/07/17 11:06 Prothrombin Time 17.2 SEC (11.7-14.0) Prothromb Time International Ratio 1.5 (0.8-1.1) Sodium Level 133 mmol/L (136-145) Potassium Level 4.0 mmol/L (3.5-5.1) Chloride Level 95 mmol/L (98-107) Carbon Dioxide Level 29 mmol/L (21-32) Anion Gap 9 (6-14) Blood Urea Nitrogen 45 mg/dL (8-26) Creatinine 7.6 mg/dL (0.7-1.3) Estimated GFR (Cockcroft-Gault) 9.2 Glucose Level 133 mg/dL (70-99) Calcium Level 7.9 mg/dL (8.5-10.1) Phosphorus Level 7.2 mg/dL (2.6-4.7) Magnesium Level 2.3 mg/dL (1.8-2.4) Albumin 2.9 g/dL (3.4-5.0) Glucose (Fingerstick) 197 mg/dL (70-99) Laboratory Tests Test 03/06/17 16:40 03/06/17 20:25 03/07/17 07:08 03/07/17 08:00 Glucose (Fingerstick) 102 mg/dL (70-99) 101 mg/dL (70-99) 116 mg/dL (70-99) Prothrombin Time 17.2 SEC (11.7-14.0) Prothromb Time International Ratio 1.5 (0.8-1.1) Sodium Level 133 mmol/L (136-145) Potassium Level 4.0 mmol/L (3.5-5.1) Chloride Level 95 mmol/L (98-107) Carbon Dioxide Level 29 mmol/L (21-32) Anion Gap 9 (6-14) Blood Urea Nitrogen 45 mg/dL (8-26) Creatinine 7.6 mg/dL (0.7-1.3) Estimated GFR (Cockcroft-Gault) 9.2 Glucose Level 133 mg/dL (70-99) Calcium Level 7.9 mg/dL (8.5-10.1) Phosphorus Level 7.2 mg/dL (2.6-4.7) Magnesium Level 2.3 mg/dL (1.8-2.4) Albumin 2.9 g/dL (3.4-5.0) Test 03/07/17 11:06 Glucose (Fingerstick) 197 mg/dL (70-99) Microbiology 02/28/17 Blood Culture - Final, Complete NO GROWTH AFTER 5 DAYS 02/28/17 Gram Stain - Final, Complete Medications Current Medications Morphine Sulfate 4 mg PRN Q15MIN PRN IV/SQ PAIN GREATER THAN 3/10 Last administered on 02/28/17 19:05; Start 02/28/17 at 18:00; Stop 03/01/17 at 17:59 ; Status DC Morphine Sulfate 4 mg PRN Q2HR PRN IV PAIN Last administered on 03/01/17 19:08 ; Start 02/28/17 at 19:15; Stop 03/01/17 at 19:14; Status DC Citalopram Hydrobromide (CeleXA) 20 mg DAILY PO Last administered on 03/07/17 08:08; Start 03/01/17 at 09:00 Clopidogrel Bisulfate (Plavix) 75 mg DAILY07 PO Last administered on 03/07/17 06:10; Start 03/01/17 at 07:00 Darbepoetin Jace (Aranesp) 100 mcg WEEKLYHS SQ ; Start 03/07/17 at 21:00 Dexamethasone (Maxidex) 1 drop Q4HRS OS Last administered on 03/07/17 12:02; Start 02/28/17 at 20:00 Diclofenac Sodium (Voltaren) 1 ayaz BID TP Last administered on 03/05/17 08:51 ; Start 02/28/17 at 21:00 Ergocalciferol (Vitamin D2) 50,000 unit WEEKLY PO Last administered on 08:06; Start 03/07/17 at 09:00 Famotidine (Pepcid) 20 mg HS PO Last administered on 03/06/17 22:35; Start at 21:00 Vitamin B Complex/ Vitamin C (Fernanda-Jimmy) 1 tab DAILY PO Last administered on 08:06; Start 03/01/17 at 09:00 Isosorbide Mononitrate (Imdur) 30 mg DAILY PO Last administered on 03/07/17 08 :06; Start 03/01/17 at 09:00 Ketorolac Tromethamine (Acular) 1 drop QID OS Last administered on 03/07/17 12 :05; Start 02/28/17 at 21:00 Levetiracetam (Keppra) 500 mg BID PO Last administered on 03/07/17 08:09; Start 02/28/17 at 21:00; Stop 03/07/17 at 12:15; Status DC Levothyroxine Sodium (Synthroid) 175 mcg DAILY07 PO Last administered on 06:10; Start 03/01/17 at 07:00 Lidocaine (Lidoderm) 1 patch DAILY TD Last administered on 03/05/17 08:50; Start 03/01/17 at 09:00 Metoprolol Tartrate (Lopressor) 50 mg BID PO Last administered on 03/07/17 08: 09; Start 02/28/17 at 21:00 Morphine Sulfate (Ms Contin) 30 mg TID PO Last administered on 03/05/17 00:22 ; Start 02/28/17 at 21:00 Moxifloxacin HCl (Vigamox) 1 drop TID OU Last administered on 03/07/17 08:10; Start 02/28/17 at 21:00 Nitroglycerin (Nitrostat) 0.4 mg PRN Q5MIN PRN SL CHEST PAIN; Start 02/28/17 at 19:45 Sucralfate (Carafate) 1 gm BID PO Last administered on 03/07/17 08:06; Start 02/28/17 at 21:00 Trazodone HCl (Desyrel) 25 mg QHS PO Last administered on 03/06/17 22:34; Start 02/28/17 at 21:00 Warfarin Sodium (Coumadin) 5 mg DAILY16 PO ; Start 03/01/17 at 16:00; Stop 03/01 at 16:00; Status DC Albuterol Sulfate (Ventolin Neb Soln) 2.5 mg PRN Q4HRS PRN NEB SHORTNESS OF BREATH Last administered on 03/05/17 11:02; Start 02/28/17 at 20:00 Atorvastatin Calcium (Lipitor) 80 mg QHS PO Last administered on 03/06/17 22: 34; Start 02/28/17 at 21:00 Non-Formulary Medication 5 ml DAILY LEFTEYE ; Start 03/01/17 at 09:00; Status UNV Calcium Carbonate/ Glycine (Oscal) 2,000 mg TID PO Last administered on 21:00; Start 03/01/17 at 09:00; Stop 03/03/17 at 09:21; Status DC Non-Formulary Medication 1 drop Q1HR OS ; Start 02/28/17 at 20:00; Status UNV Risperidone (RisperDAL) 0.5 mg QHS PO Last administered on 03/06/17 22:35; Start 02/28/17 at 21:00 Acetaminophen (Tylenol) 650 mg PRN Q6HRS PRN PO FEVER; Start 02/28/17 at 19:45 Ondansetron HCl (Zofran) 4 mg PRN Q6HRS PRN IV NAUSEA/VOMITING Last administered on 03/02/17 08:35; Start 02/28/17 at 19:45; Stop 03/02/17 at 17:27 ; Status DC Morphine Sulfate 2 mg PRN Q2HR PRN IV PAIN Last administered on 03/02/17 12:39 ; Start 02/28/17 at 19:45; Stop 03/02/17 at 17:27; Status DC Tramadol HCl (Ultram) 50 mg PRN Q6HRS PRN PO PAIN; Start 02/28/17 at 19:45 Hydralazine HCl (Apresoline) 10 mg PRN Q4HRS PRN IVP ELEVATED BP, SEE COMMENTS ; Start 02/28/17 at 19:45 Docusate Sodium (Colace) 100 mg PRN DAILY PRN PO CONSTIPATION; Start 02/28/17 at 19:45 Vancomycin HCl 2 gm/Sodium Chloride 500 ml @ 250 mls/hr 1X ONCE IV ; Start at 20:30; Stop 02/28/17 at 22:29; Status Cancel Vancomycin HCl (Vanco Per Pharmacy) 1 each PRN DAILY PRN MC SEE COMMENTS Last administered on 03/04/17 13:17; Start 02/28/17 at 20:00; Stop 03/04/17 at 17:34 ; Status DC Cefepime HCl 1 gm/ Sodium Chloride 50 ml @ 100 mls/hr Q12HR IV ; Start at 20:30; Status Cancel Warfarin Sodium (Coumadin Per Physician) 1 each PRN DAILY PRN MC SEE COMMENTS Last administered on 03/07/17 11:45; Start 02/28/17 at 20:00 Vancomycin HCl 1.25 gm/Sodium Chloride 250 ml @ 167 mls/hr Q48H IV ; Start at 23:00; Stop 03/02/17 at 23:00; Status DC Vancomycin HCl 1 each 1X ONCE MC ; Start 03/04/17 at 22:30; Stop 03/04/17 at 22 :30; Status DC Cefepime HCl 1 gm/ Sodium Chloride 50 ml @ 100 mls/hr QHS IV Last administered on 03/05/17 00:22; Start 02/28/17 at 23:30; Stop 03/05/17 at 15:38 ; Status DC Vancomycin HCl 2 gm/Sodium Chloride 500 ml @ 250 mls/hr 1X ONCE IV Last administered on 02/28/17 23:30; Start 02/28/17 at 23:30; Stop 03/01/17 at 01:29 ; Status DC Insulin Aspart (NovoLOG) 0-9 UNITS TIDWMEALS SQ Last administered on 03/07/17 12:06; Start 03/01/17 at 08:00 Dextrose (Dextrose 50%-Water Syringe) 12.5 gm PRN Q15MIN PRN IV SEE COMMENTS; Start 03/01/17 at 03:00; Status Cancel Vancomycin HCl 1 each 1X ONCE MC Last administered on 03/02/17 05:00; Start 03/02/17 at 05:00; Stop 03/02/17 at 05:01; Status DC Sodium Chloride 1,000 ml @ 1,000 mls/hr Q1H PRN IV hypotension; Start 03/01/17 at 12:02; Stop 03/01/17 at 18:01; Status DC Diphenhydramine HCl (Benadryl) 25 mg 1X PRN PRN IV ITCHING; Start 03/01/17 at 12:15; Stop 03/02/17 at 12:14; Status DC Diphenhydramine HCl (Benadryl) 25 mg 1X PRN PRN IV ITCHING; Start 03/01/17 at 12:15; Stop 03/02/17 at 12:14; Status DC Sodium Chloride 1,000 ml @ 400 mls/hr Q2H30M PRN IV PATENCY; Start 03/01/17 at 12:02; Stop 03/02/17 at 00:01; Status DC Info (PHARMACY MONITORING -- do not chart) 1 each PRN DAILY PRN MC SEE COMMENTS ; Start 03/01/17 at 12:15 Warfarin Sodium (Coumadin) 7.5 mg 1X WARF ONCE PO ; Start 03/01/17 at 16:00; Stop 03/01/17 at 16:01; Status Cancel Warfarin Sodium (Coumadin) 5 mg DAILY16 PO Last administered on 03/06/17 16:32 ; Start 03/01/17 at 16:00 Lidocaine HCl (Xylocaine-Mpf 1% Vial) 0.5 ml 1X STAT ID Last administered on 14:31; Start 03/01/17 at 13:54; Stop 03/01/17 at 13:56; Status DC Fentanyl Citrate (Fentanyl 2ml Vial) 25 mcg PRN Q5MIN PRN IV MILD PAIN; Start 03/02/17 at 07:00; Stop 03/02/17 at 23:00; Status DC Fentanyl Citrate (Fentanyl 2ml Vial) 50 mcg PRN Q5MIN PRN IV MODERATE PAIN; Start 03/02/17 at 07:00; Stop 03/02/17 at 23:00; Status DC Morphine Sulfate 1 mg PRN Q10MIN PRN IV SEVERE PAIN; Start 03/02/17 at 07:00; Stop 03/02/17 at 23:00; Status DC Lidocaine HCl 2 ml PRN 1X PRN ID PRIOR TO IV START; Start 03/02/17 at 07:00; Stop 03/02/17 at 23:00; Status DC Hydromorphone HCl (Dilaudid) 0.5 mg PRN Q10MIN PRN IV SEV PAIN, Second choice; Start 03/02/17 at 07:00; Stop 03/02/17 at 23:00; Status DC Prochlorperazine Edisylate (Compazine) 5 mg PACU PRN PRN IV NAUSEA, MRX1; Start 03/02/17 at 07:00; Stop 03/02/17 at 23:00; Status DC Sodium Chloride 1,000 ml @ 0 mls/hr Q0M IV ; Start 03/02/17 at 13:45; Stop at 13:25; Status DC Vancomycin HCl 500 mg/Sodium Chloride 100 ml @ 100 mls/hr QTUTHSA IV ; Start at 16:00; Status Cancel Bupivacaine HCl/ Epinephrine Bitart (Marcaine-Epi 0.25%-1:[id number]) 50 ml STK-MED ONCE .ROUTE ; Start 03/02/17 at 11:53; Stop 03/02/17 at 11:54; Status DC Magnesium Sulfate/ Dextrose 50 ml @ 25 mls/hr PRN DAILY PRN IV for Mag < 1.7 on am labs; Start 03/02/17 at 14:00 Propofol 20 ml @ As Directed STK-MED ONCE IV ; Start 03/02/17 at 15:08; Stop at 15:09; Status DC Famotidine (Pepcid) 20 mg STK-MED ONCE .ROUTE ; Start 03/02/17 at 15:08; Stop at 15:09; Status DC Lidocaine HCl (Lidocaine Pf 2% Vial) 5 ml STK-MED ONCE .ROUTE ; Start 03/02/17 at 15:08; Stop 03/02/17 at 15:09; Status DC Ondansetron HCl (Zofran) 4 mg STK-MED ONCE .ROUTE ; Start 03/02/17 at 15:08; Stop 03/02/17 at 15:09; Status DC Fentanyl Citrate (Fentanyl 2ml Vial) 100 mcg STK-MED ONCE .ROUTE ; Start at 15:45; Stop 03/02/17 at 15:46; Status DC Rocuronium [place] (Zemuron) 50 mg STK-MED ONCE .ROUTE ; Start 03/02/17 at 15:45 ; Stop 03/02/17 at 15:46; Status DC Clindamycin Phosphate 0 ml @ As Directed STK-MED ONCE IV ; Start 03/02/17 at 15: 48; Stop 03/02/17 at 15:49; Status DC Clindamycin Phosphate 50 ml @ 100 mls/hr 1X ONCE IV Last administered on 03/02 16:27; Start 03/02/17 at 17:00; Stop 03/02/17 at 17:29; Status DC Oxycodone HCl (Roxicodone) 5 mg PRN Q3HRS PRN PO PAIN; Start 03/02/17 at 17:30 Morphine Sulfate 2 mg PRN Q1HR PRN IV PAIN; Start 03/02/17 at 17:30 Fentanyl Citrate (Fentanyl 2ml Vial) 25 mcg PRN Q1HR PRN IV PAIN; Start at 17:30 Senna/Docusate Sodium (Senna Plus) 1 tab DAILY PO Last administered on 08:06; Start 03/03/17 at 09:00 Polyethylene Glycol (miraLAX PACKET) 17 gm PRN DAILY PRN PO CONSTIPATION Last administered on 03/05/17 08:50; Start 03/02/17 at 17:30 Clindamycin Phosphate 50 ml @ 100 mls/hr Q6H IV ; Start 03/02/17 at 22:30; Stop 03/03/17 at 10:59; Status Cancel Ondansetron HCl (Zofran) 4 mg PRN Q4HRS PRN IV NAUSEA/VOMITING Last administered on 03/04/17 22:26; Start 03/02/17 at 17:30 Aspirin (Ecotrin) 81 mg DAILYWBKFT PO ; Start 03/03/17 at 08:00; Stop 03/03/17 at 08:39; Status DC Magnesium Hydroxide (Milk Of Magnesia) 2,400 mg 1X PRN PRN PO CONSTIPATION; Start 03/03/17 at 06:00; Stop 03/04/17 at 05:59; Status DC Bisacodyl (Dulcolax Supp) 10 mg 1X PRN PRN PA CONSTIPATION; Start 03/03/17 at 16:00; Stop 03/04/17 at 16:00; Status DC Acetaminophen/ Hydrocodone Bitart (Lortab 7.5/325) 1 tab PRN Q4HRS PRN PO PAIN ; Start 03/02/17 at 17:30 Morphine Sulfate 4 mg PRN Q2HR PRN IV PAIN Last administered on 03/05/17 06:42 ; Start 03/02/17 at 17:30 Acetaminophen/ Hydrocodone Bitart (Lortab 7.5/325) 2 tab PRN Q4HRS PRN PO PAIN ; Start 03/02/17 at 17:30 Dextrose (Dextrose 50%-Water Syringe) 12.5 gm PRN Q15MIN PRN IV SEE COMMENTS; Start 03/02/17 at 17:30 Sevoflurane (Ultane) 60 ml STK-MED ONCE IH ; Start 03/02/17 at 17:32; Stop 03/02 at 17:33; Status DC Dexamethasone Sodium Phosphate (Decadron) 20 mg STK-MED ONCE .ROUTE ; Start at 17:32; Stop 03/02/17 at 17:33; Status DC Phenylephrine HCl 1 mg STK-MED ONCE IV ; Start 03/02/17 at 17:32; Stop 03/02/17 at 17:33; Status DC Vancomycin HCl 1 gm/Sodium Chloride 250 ml @ 250 mls/hr QTUTHSA IV Last administered on 03/03/17 18:42; Start 03/03/17 at 16:00; Stop 03/04/17 at 17:34 ; Status DC Vancomycin HCl 1 each 1X ONCE MC ; Start 03/06/17 at 05:00; Stop 03/06/17 at 05 :01; Status Cancel Lidocaine HCl (Xylocaine-Mpf 1% Vial) 0.5 ml 1X STAT ID Last administered on 08:20; Start 03/03/17 at 08:05; Stop 03/03/17 at 08:10; Status DC Sodium Chloride 1,000 ml @ 1,000 mls/hr Q1H PRN IV hypotension; Start 03/03/17 at 08:08; Stop 03/03/17 at 14:07; Status DC Diphenhydramine HCl (Benadryl) 25 mg 1X PRN PRN IV ITCHING; Start 03/03/17 at 08:15; Stop 03/04/17 at 08:14; Status DC Diphenhydramine HCl (Benadryl) 25 mg 1X PRN PRN IV ITCHING; Start 03/03/17 at 08:15; Stop 03/04/17 at 08:14; Status DC Sodium Chloride 1,000 ml @ 400 mls/hr Q2H30M PRN IV PATENCY; Start 03/03/17 at 08:08; Stop 03/03/17 at 20:07; Status DC Info (PHARMACY MONITORING -- do not chart) 1 each PRN DAILY PRN MC SEE COMMENTS ; Start 03/03/17 at 08:15; Status UNV Info (PHARMACY MONITORING -- do not chart) 1 each PRN DAILY PRN MC SEE COMMENTS ; Start 03/03/17 at 08:15; Status UNV Calcium Carbonate/ Glycine (Oscal) 2,000 mg TIDAC PO Last administered on 12:00; Start 03/03/17 at 11:30 Ciprofloxacin (Cipro) 500 mg DAILY PO Last administered on 03/07/17 08:07; Start 03/06/17 at 09:00 Lorazepam (Ativan) 2 mg 1X ONCE PO Last administered on 03/05/17 20:44; Start 03/05/17 at 20:30; Stop 03/05/17 at 20:31; Status DC Lidocaine HCl (Xylocaine-Mpf 1% Vial) 2 ml STK-MED ONCE .ROUTE ; Start 03/06/17 at 08:09; Stop 03/06/17 at 08:10; Status DC Sodium Chloride 1,000 ml @ 1,000 mls/hr Q1H PRN IV hypotension; Start 03/06/17 at 08:46; Stop 03/06/17 at 14:45; Status DC Albumin Human 200 ml @ 200 mls/hr 1X PRN PRN IV Hypotension; Start 03/06/17 at 09:00; Stop 03/06/17 at 19:00; Status DC Acetaminophen (Tylenol) 500 mg 1X PRN PRN PO MILD PAIN / TEMP; Start 03/06/17 at 09:00; Stop 03/06/17 at 19:00; Status DC Diphenhydramine HCl (Benadryl) 25 mg 1X PRN PRN IV ITCHING; Start 03/06/17 at 09:00; Stop 03/06/17 at 19:00; Status DC Sodium Chloride 1,000 ml @ 400 mls/hr Q2H30M PRN IV PATENCY; Start 03/06/17 at 08:46; Stop 03/06/17 at 20:45; Status DC Info (PHARMACY MONITORING -- do not chart) 1 each PRN DAILY PRN MC SEE COMMENTS ; Start 03/06/17 at 09:00; Stop 03/06/17 at 09:00; Status DC Info (PHARMACY MONITORING -- do not chart) 1 each PRN DAILY PRN MC SEE COMMENTS ; Start 03/06/17 at 09:00; Status Cancel Levetiracetam 500 mg/Sodium Chloride 100 ml @ 400 mls/hr 1X STAT IV Last administered on 03/06/17 14:40; Start 03/06/17 at 14:11; Stop 03/06/17 at 14:25 ; Status DC Levetiracetam 500 mg/Sodium Chloride 100 ml @ 400 mls/hr 1X ONCE IV Last administered on 03/06/17t 19:19; Start 03/06/17 at 19:30; Stop 03/06/17 at 19:44 ; Status DC Levetiracetam (Keppra) 1,000 mg BID PO ; Start 03/07/17 at 21:00 Active Scripts Active Cipro (Ciprofloxacin Hcl) 250 Mg Tablet 500 Mg PO DAILY 7 Days Levetiracetam 500 Mg Tablet 500 Mg PO BID Morphine Sulfate Er (Morphine Sulfate) 30 Mg Tablet.er 30 Mg PO TID Lidoderm (Lidocaine) 700 Mg Adh..patch 1 Patch TD DAILY Ventolin Hfa Inhaler (Albuterol Sulfate) 18 Gm Hfa.aer.ad 2 Puff INH Q4HRS PRN Metoprolol Tartrate 50 Mg Tablet 50 Mg PO BID Synthroid (Levothyroxine Sodium) 175 Mcg Tablet 175 Mcg PO DAILY07 Isosorbide Mononitrate Er (Isosorbide Mononitrate) 30 Mg Tab.er.24h 30 Mg PO DAILY Reported Ketorolac Tromethamine 5 Ml Drops 1 Drop OS QID Maxidex (Dexamethasone) 5 Ml Drops.susp 1 Drop OS Q4HRS Ropinirole Hcl 0.25 Mg Tablet 0.25 Mg PO Oxycodone Hcl 5 Mg Capsule 5 Mg PO PRN Citalopram Hbr (Citalopram Hydrobromide) 20 Mg Tablet 1 Tab PO DAILY Trazodone Hcl 50 Mg Tablet 0.5-1 Tab PO QHS Risperidone 0.5 Mg Tablet 1 Tab PO QHS Bromsite (Bromfenac Sodium) 5 Ml Drops 5 Ml LEFTEYE DAILY Vigamox (Moxifloxacin Hcl) 3 Ml Drops 1 Drop LEFTEYE TID Prednisolone Acetate 5 Ml Drops.susp 1 Drop OS Q1HR Famotidine 20 Mg Tablet 20 Mg PO HS Coumadin (Warfarin Sodium) 5 Mg Tablet 1 Tab PO DAILY Nephro-Jimmy Tablet (Folic Acid/Vitamin B Comp W-C) 0.8 Mg Tablet 1 Tab PO DAILY Carafate (Sucralfate) 1 Gm Tablet 1 Tab PO BID Nitrostat (Nitroglycerin) 0.4 Mg Tab.subl 0.4 Mg SL PRN Q5MIN PRN Calcium Carbonate 500 Mg/5 Ml Oral.susp 2,000 Mg PO TID Aranesp Syringe (Darbepoetin Jace In Polysorbat) 100 Mcg/0.5 Ml Disp.syrin 100 Mcg SQ WEEKLY Voltaren (Diclofenac Sodium) 100 Gm Gel..gram. 1 Gm TP BID Clopidogrel (Clopidogrel Bisulfate) 75 Mg Tablet 75 Mg PO DAILY07 Renvela (Sevelamer Carbonate) 800 Mg Tablet Tab PO TID Vitamin D2 (Ergocalciferol (Vitamin D2)) 50,000 Unit Capsule 50,000 Unit PO WEEKLY Atorvastatin Calcium 80 Mg Tablet 80 Mg PO HS Vitals/I & O Vital Sign - Last 24 Hours 03/06/17 03/06/17 03/06/17/25/17 14:00 14:58 15:43 16:35 Pulse 93 95 91 93 Resp 16 16 16 16 B/P (MAP) 120/63 (82) 115/58 (77) 94/57 (69) 140/63 (88) Pulse Ox 94 96 94 96 O2 Delivery Simple Mask Nasal Cannula Nasal Cannula Nasal Cannula O2 Flow Rate 8.0 2.0 2.0 2.0 03/06/17 03/06/17 03/06/17 03/06/17 16:38 19:00 19:00 22:35 Temp 100.4 100.4 Pulse 89 99 99 Resp 22 B/P (MAP) 108/63 (78) 135/72 (93) 135/72 Pulse Ox 90 O2 Delivery Nasal Cannula Room Air Room Air O2 Flow Rate 2.0 2.0 03/06/17 03/06/17 03/07/17 03/07/17 22:52 23:00 03:00 07:00 Temp 99.1 97.7 98.9 99.1 97.7 98.9 Pulse 95 80 77 Resp 22 18 18 B/P (MAP) 117/69 (85) 146/81 (102) 130/69 (89) Pulse Ox 90 93 92 O2 Delivery Room Air Room Air Room Air Room Air O2 Flow Rate 2.0 2.0 03/07/17 03/07/17 03/07/17 03/07/17 07:40 08:06 08:09 08:12 Pulse 77 77 B/P (MAP) 130/69 130/69 O2 Delivery Room Air Room Air 03/07/17 11:00 Temp 98.2 98.2 Pulse 78 Resp 18 B/P (MAP) 156/75 (102) Pulse Ox 92 O2 Delivery Room Air Intake and Output 03/06/17 03/06/17 03/07/17 14:59 22:59 06:59 Intake Total 440 ml Output Total 0 ml Balance 0 ml 440 ml SKYLAR TSE MD Mar 07, 2017 13:42
--- NOTE | 2017-03-07 14:48 | PDOC ---
Renal-Progress Notes Subjective Notes Notes NO NEW COMPLAINTS. WANTS TO GO HOME History of Present Illness Hx of present illness STABLE Vitals Vitals Vital Signs Date Time Temp Pulse Resp B/P (MAP) Pulse Ox O2 Delivery O2 Flow Rate FiO2 03/07/17 11:00 98.2 78 18 156/75 (102) 92 Room Air 98.2 03/07/17 03:00 2.0 Weight Weight [ ] I.O. Intake and Output Intake and Output 03/07/17 07:00 Intake Total 440 ml Output Total 0 ml Balance 440 ml Intake Oral 240 ml IV Total 200 ml Output Urine Total 0 ml Labs Labs Laboratory Tests Test 03/06/17 16:40 03/06/17 20:25 03/07/17 07:08 03/07/17 08:00 Glucose (Fingerstick) 102 mg/dL (70-99) 101 mg/dL (70-99) 116 mg/dL (70-99) Prothrombin Time 17.2 SEC (11.7-14.0) Prothromb Time International Ratio 1.5 (0.8-1.1) Sodium Level 133 mmol/L (136-145) Potassium Level 4.0 mmol/L (3.5-5.1) Chloride Level 95 mmol/L (98-107) Carbon Dioxide Level 29 mmol/L (21-32) Anion Gap 9 (6-14) Blood Urea Nitrogen 45 mg/dL (8-26) Creatinine 7.6 mg/dL (0.7-1.3) Estimated GFR (Cockcroft-Gault) 9.2 Glucose Level 133 mg/dL (70-99) Calcium Level 7.9 mg/dL (8.5-10.1) Phosphorus Level 7.2 mg/dL (2.6-4.7) Magnesium Level 2.3 mg/dL (1.8-2.4) Albumin 2.9 g/dL (3.4-5.0) Test 03/07/17 11:06 Glucose (Fingerstick) 197 mg/dL (70-99) Micro Micro Microbiology 02/28/17 Blood Culture - Final, Complete NO GROWTH AFTER 5 DAYS 02/28/17 Gram Stain - Final, Complete Review of Systems Constitutional: yes: weakness, alert, oriented Pulmonary: Yes no symptom reported Gastrointestional: Yes: no symptom reported Genitourinary: Yes: no symptom reported Musculoskeletal: Yes: no symptom reported Psychiatric/Neurological: Yes: no symptom reported Endocrine: Yes: no symptom reported Physical Exam General Appearance: no apparent distress Skin: warm Respiratory: bilateral CTA Heart: S1S2, RRR Abdomen: soft, bowel sounds present Genitourinary: bladder flat Extremities: atrophy Neurology: alert Musculoskeletal: Osteoarthritis Assessment Assessment IMP ESRD ANEMIA DM II HTN S/P TMA PLAN ANTIBIOTICS HD TOMORROW CONT KEITH GRACE VILLEDA MD Mar 07, 2017 14:48
[2017-03-07 15:00] VITALS: BP 155/71
[2017-03-07] MEDS: WARFARIN 5 MG TABLET. PO SCH (16:53)
[2017-03-07 19:00] VITALS: BP 124/68
[2017-03-07] MEDS ORDERED: DARBEPOETIN ALFA 100 MCG/0.5 ML DISP.SYRIN. SQ SCH (21:00)
[2017-03-07] MEDS: traZODone 50 MG TABLET. PO SCH (21:45)
[2017-03-07] MEDS: risperiDONE 0.25 MG TABLET. PO SCH (21:46)
[2017-03-07] MEDS: ATORVASTATIN CALCIUM 40 MG TABLET. PO SCH (21:46)
[2017-03-07] MEDS: FAMOTIDINE 20 MG TABLET. PO SCH (21:46)
[2017-03-07 23:25] VITALS: BP 106/48
[2017-03-08] MEDS: DEXAMETHASONE 0.1% OPHTH SOLUTION 5ML BOTTLE. OS SCH ×6 (00:04→20:00)
[2017-03-08 03:00] VITALS: BP 135/69
[2017-03-08 04:43] LABS: INR 1.6 (0.8-1.1); PROTHROMBIN TIME PATIENT 17.8 SEC (11.7-14.0)
[2017-03-08 04:51] LABS: ALBUMIN 2.7 g/dL (3.4-5.0); CALCIUM 7.6 mg/dL (8.5-10.1); CREATININE 9.2 mg/dL (0.7-1.3); GFR 7.4; PHOSPHORUS 7.5 mg/dL (2.6-4.7)
[2017-03-08] MEDS: LEVOTHYROXINE 175 MCG TABLET PO SCH (06:30)
[2017-03-08] MEDS: CLOPIDOGREL BISULFATE 75 MG TABLET PO SCH (06:30)
[2017-03-08] MEDS: ALBUTEROL SULFATE 2.5 MG/3 ML NEBU. NEB PRN (06:54)
[2017-03-08 07:00] VITALS: BP 130/65
[2017-03-08] MEDS: levETIRAcetam 500 MG TABLET PO SCH ×2 (07:54→21:24)
[2017-03-08] MEDS: CIPROFLOXACIN HCL 250 MG TABLET. PO SCH (07:54)
[2017-03-08] MEDS: SENNOSIDES/DOCUSATE 8.6/50MG TABLET. PO SCH (07:55)
[2017-03-08] MEDS: CALCIUM CARBONATE 500 MG TABLET PO SCH ×3 (07:55→17:01)
[2017-03-08] MEDS: CITALOPRAM 20 MG TABLET. PO SCH (07:55)
[2017-03-08] MEDS: FOLIC/VIT B COMP W-C (RENAL) TABLET. PO SCH (07:55)
[2017-03-08] MEDS: SUCRALFATE 1 GM TABLET. PO SCH ×2 (07:55→21:23)
[2017-03-08] MEDS: ISOSORBIDE MONONITRATE ER 30 MG TAB.ER.24H PO SCH (07:58)
[2017-03-08] MEDS: MOXIFLOXACIN 0.5% OPHTH SOLUTION 3ML BOTTLE. OU SCH ×3 (08:00→21:00)
[2017-03-08] MEDS: INSULIN ASPART 300 UNITS/3 ML INSULN.PEN SQ SCH ×3 (08:00→16:58)
[2017-03-08] MEDS: METOPROLOL TART IMMED RELEASE 50 MG TABLET. PO SCH ×2 (08:00→21:24)
[2017-03-08] MEDS: KETOROLAC TROMETHAMINE 0.5% OPHTH SOLUTION 3ML BOTTLE. OS SCH ×4 (08:00→21:26)
[2017-03-08] MEDS: LIDOCAINE (700MG/PATCH) PATCH. TD SCH (08:12)
[2017-03-08] MEDS: MORPHINE ER 30 MG TABLET.ER PO SCH ×3 (08:12→21:00)
[2017-03-08] MEDS: DICLOFENAC SODIUM 1% TOPICAL GEL 100GM TUBE. TP SCH ×2 (08:13→21:00)
[2017-03-08] MEDS: ONDANSETRON PF 4 MG/2 ML VIAL. IV PRN (08:27)
[2017-03-08] MEDS ORDERED: IV NORMAL SALINE 1000ML BAG 1,000 ML IV PRN ×2 (09:25)
[2017-03-08] MEDS ORDERED: DIALYSIS PATIENT. MC PRN ×2 (09:30)
[2017-03-08] MEDS ORDERED: LIDOCAINE 1% PF 2 ML VIAL. ONE ×2 (09:52→10:00)
--- NOTE | 2017-03-08 12:16 | PDOC3 ---
Discharge Summary Visit Information Date of Admission: Feb 28, 2017 Date of Discharge: Mar 08, 2017 Admitting Diagnosis Comment: Assessment and plan Left foot infected wound with osteomyelitis. Enterobacter. 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 History of chronic back pain Paroxysmal atrial fibrillation Obesity GERD Hyperglycemia Final Diagnosis Problems Medical Problems: (1) End stage renal disease Status: Acute (2) Foot ulcer, left Status: Acute Brief Hospital Course Allergies Allergies Coded Allergies Type Severity Reaction Last Updated Verified iodine Allergy Severe THROAT SWELLING 03/29/16 Yes lisinopril Allergy Severe 03/16/16 Yes Fish Containing Products Allergy Intermediate 03/16/16 Yes Penicillins Allergy Intermediate SEE COMMENT 04/13/16 Yes piperacillin Allergy Intermediate Hives 03/16/16 Yes tazobactam Allergy Intermediate 03/16/16 Yes Vital Signs Vital Signs Date Time Temp Pulse Resp B/P (MAP) Pulse Ox O2 Delivery O2 Flow Rate FiO2 03/08/17 08:35 Room Air 03/08/17 08:00 76 130/68 03/08/17 07:00 97.9 20 95 97.9 Lab Results Laboratory Tests Test 03/06/17 13:33 03/06/17 16:40 03/06/17 20:25 03/07/17 07:08 Glucose (Fingerstick) 88 mg/dL (70-99) 102 mg/dL (70-99) 101 mg/dL (70-99) 116 mg/dL (70-99) Test 03/07/17 08:00 03/07/17 11:06 03/07/17 16:29 03/07/17 20:24 Prothrombin Time 17.2 SEC (11.7-14.0) Prothromb Time International Ratio 1.5 (0.8-1.1) Sodium Level 133 mmol/L (136-145) Potassium Level 4.0 mmol/L (3.5-5.1) Chloride Level 95 mmol/L (98-107) Carbon Dioxide Level 29 mmol/L (21-32) Anion Gap 9 (6-14) Blood Urea Nitrogen 45 mg/dL (8-26) Creatinine 7.6 mg/dL (0.7-1.3) Estimated GFR (Cockcroft-Gault) 9.2 Glucose Level 133 mg/dL (70-99) Calcium Level 7.9 mg/dL (8.5-10.1) Phosphorus Level 7.2 mg/dL (2.6-4.7) Magnesium Level 2.3 mg/dL (1.8-2.4) Albumin 2.9 g/dL (3.4-5.0) Glucose (Fingerstick) 197 mg/dL (70-99) 147 mg/dL (70-99) 182 mg/dL (70-99) Test 03/08/17 03:55 03/08/17 07:19 Prothrombin Time 17.8 SEC (11.7-14.0) Prothromb Time International Ratio 1.6 (0.8-1.1) Sodium Level 136 mmol/L (136-145) Potassium Level 4.0 mmol/L (3.5-5.1) Chloride Level 97 mmol/L (98-107) Carbon Dioxide Level 28 mmol/L (21-32) Anion Gap 11 (6-14) Blood Urea Nitrogen 55 mg/dL (8-26) Creatinine 9.2 mg/dL (0.7-1.3) Estimated GFR (Cockcroft-Gault) 7.4 Glucose Level 109 mg/dL (70-99) Calcium Level 7.6 mg/dL (8.5-10.1) Phosphorus Level 7.5 mg/dL (2.6-4.7) Magnesium Level 2.4 mg/dL (1.8-2.4) Albumin 2.7 g/dL (3.4-5.0) Glucose (Fingerstick) 112 mg/dL (70-99) Laboratory Tests Test 03/07/17 16:29 03/07/17 20:24 03/08/17 03:55 03/08/17 07:19 Glucose (Fingerstick) 147 mg/dL (70-99) 182 mg/dL (70-99) 112 mg/dL (70-99) Prothrombin Time 17.8 SEC (11.7-14.0) Prothromb Time International Ratio 1.6 (0.8-1.1) Sodium Level 136 mmol/L (136-145) Potassium Level 4.0 mmol/L (3.5-5.1) Chloride Level 97 mmol/L (98-107) Carbon Dioxide Level 28 mmol/L (21-32) Anion Gap 11 (6-14) Blood Urea Nitrogen 55 mg/dL (8-26) Creatinine 9.2 mg/dL (0.7-1.3) Estimated GFR (Cockcroft-Gault) 7.4 Glucose Level 109 mg/dL (70-99) Calcium Level 7.6 mg/dL (8.5-10.1) Phosphorus Level 7.5 mg/dL (2.6-4.7) Magnesium Level 2.4 mg/dL (1.8-2.4) Albumin 2.7 g/dL (3.4-5.0) Brief Hospital Course Mr. Goel is a 51 old AA male admitted for Diabetic foot wouund/co managed with ID. Grew organism as above.Now on PO cipro, BEing dcd with HH bec of wound vac, Also hew ESRD? anyways getting HD. PT seen and examnined at HD NO RN issues MAR done,DispO; HH Discharge Information Condition at Discharge: Improved, Stable Disposition/Orders: D/C to Home w/ HH Scheduled Atorvastatin Calcium (Atorvastatin Calcium), 80 MG PO HS, (Reported) Bromfenac Sodium (Bromsite), 5 ML LEFTEYE DAILY, (Reported) Calcium Carbonate (Calcium Carbonate), 2,000 MG PO TID, (Reported) Ciprofloxacin Hcl (Cipro), 500 MG PO DAILY Citalopram Hydrobromide (Citalopram Hbr), 1 TAB PO DAILY, (Reported) Clopidogrel Bisulfate (Clopidogrel), 75 MG PO DAILY07, (Reported) Darbepoetin Jace In Polysorbat (Aranesp Syringe), 100 MCG SQ WEEKLY, (Reported) Dexamethasone (Maxidex), 1 DROP OS Q4HRS, (Reported) Diclofenac Sodium (Voltaren), 1 GM TP BID, (Reported) Ergocalciferol (Vitamin D2) (Vitamin D2), 50,000 UNIT PO WEEKLY, (Reported) Famotidine (Famotidine), 20 MG PO HS, (Reported) Folic Acid/Vitamin B Comp W-C (Nephro-Jimmy Tablet), 1 TAB PO DAILY, (Reported) Isosorbide Mononitrate (Isosorbide Mononitrate Er), 30 MG PO DAILY Ketorolac Tromethamine (Ketorolac Tromethamine), 1 DROP OS QID, (Reported) Levetiracetam (Levetiracetam), 500 MG PO BID Levothyroxine Sodium (Synthroid), 175 MCG PO DAILY07 Lidocaine (Lidoderm), 1 PATCH TD DAILY Metoprolol Tartrate (Metoprolol Tartrate), 50 MG PO BID Morphine Sulfate (Morphine Sulfate Er), 30 MG PO TID Moxifloxacin Hcl (Vigamox), 1 DROP LEFTEYE TID, (Reported) Prednisolone Acetate (Prednisolone Acetate), 1 DROP OS Q1HR, (Reported) Risperidone (Risperidone), 1 TAB PO QHS, (Reported) Sevelamer Carbonate (Renvela), TAB PO TID, (Reported) Sucralfate (Carafate), 1 TAB PO BID, (Reported) Trazodone Hcl (Trazodone Hcl), 0.5-1 TAB PO QHS, (Reported) Warfarin Sodium (Coumadin), 1 TAB PO DAILY, (Reported) Scheduled PRN Albuterol Sulfate (Ventolin Hfa Inhaler), 2 PUFF INH Q4HRS PRN for SHORTNESS OF BREATH Nitroglycerin (Nitrostat), 0.4 MG SL PRN Q5MIN PRN for CHEST PAIN, (Reported) Oxycodone Hcl (Oxycodone Hcl), 5 MG PO for PAIN, (Reported) Miscellaneous Medications Ropinirole Hcl (Ropinirole Hcl), 0.25 MG PO, (Reported) Discontinued Medications Midodrine Hcl (Midodrine Hcl), 5 MG PO, (Reported) Moxifloxacin Hcl (Vigamox), 1 DROP EACHEYE TID, (Reported) ANDRAE ROA MD Mar 08, 2017 12:15
--- NOTE | 2017-03-08 12:58 | PDOC ---
Renal-Progress Notes Subjective Notes Notes NONE History of Present Illness Hx of present illness NO CHANGE Vitals Vitals Vital Signs Date Time Temp Pulse Resp B/P (MAP) Pulse Ox O2 Delivery O2 Flow Rate FiO2 03/08/17 08:35 Room Air 03/08/17 08:00 76 130/68 03/08/17 07:00 97.9 20 95 97.9 Weight Weight [ ] I.O. Intake and Output Intake and Output 03/08/17 07:00 Intake Total 1200 ml Balance 1200 ml Intake Oral 1200 ml # Bowel Movements 1 Labs Labs Laboratory Tests Test 03/07/17 16:29 03/07/17 20:24 03/08/17 03:55 03/08/17 07:19 Glucose (Fingerstick) 147 mg/dL (70-99) 182 mg/dL (70-99) 112 mg/dL (70-99) Prothrombin Time 17.8 SEC (11.7-14.0) Prothromb Time International Ratio 1.6 (0.8-1.1) Sodium Level 136 mmol/L (136-145) Potassium Level 4.0 mmol/L (3.5-5.1) Chloride Level 97 mmol/L (98-107) Carbon Dioxide Level 28 mmol/L (21-32) Anion Gap 11 (6-14) Blood Urea Nitrogen 55 mg/dL (8-26) Creatinine 9.2 mg/dL (0.7-1.3) Estimated GFR (Cockcroft-Gault) 7.4 Glucose Level 109 mg/dL (70-99) Calcium Level 7.6 mg/dL (8.5-10.1) Phosphorus Level 7.5 mg/dL (2.6-4.7) Magnesium Level 2.4 mg/dL (1.8-2.4) Albumin 2.7 g/dL (3.4-5.0) Micro Micro Microbiology 02/28/17 Blood Culture - Final, Complete NO GROWTH AFTER 5 DAYS 02/28/17 Gram Stain - Final, Complete Review of Systems Constitutional: yes: weakness, alert, oriented Pulmonary: Yes no symptom reported Gastrointestional: Yes: no symptom reported Genitourinary: Yes: no symptom reported Musculoskeletal: Yes: no symptom reported Psychiatric/Neurological: Yes: no symptom reported Endocrine: Yes: no symptom reported Physical Exam General Appearance: no apparent distress Skin: warm Respiratory: bilateral CTA Heart: S1S2, RRR Abdomen: soft, bowel sounds present Genitourinary: bladder flat Extremities: atrophy Neurology: alert Musculoskeletal: Osteoarthritis Assessment Assessment IMP ESRD ANEMIA DM II HTN S/P TMA PLAN ANTIBIOTICS HD TODAY UF TO DW CONT KEITH GRACE VILLEDA MD Mar 08, 2017 12:58
--- NOTE | 2017-03-08 13:53 | PDOC ---
PROGRESS NOTES Assessment Problems Medical Problems: (1) End stage renal disease Status: Acute (2) Foot ulcer, left Status: Acute Epilepsy, EEG negative He vomited this morning including his levetiracetam, so I did give an IV dose. He is feeling much better now. He had a little bit of myoclonus earlier but no full blown seizures.. No evidence that he is having a stroke. Plan Hold on repeating MRI studies which were negative in November. Increase levetiracetam to 1000 mg bid Observe one more night Subjective Patient seen in dialysis, feels fine now Objective Vital Signs Date Time Temp Pulse Resp B/P (MAP) Pulse Ox O2 Delivery O2 Flow Rate FiO2 03/08/17 08:35 Room Air 03/08/17 08:00 76 130/68 03/08/17 07:00 97.9 20 95 97.9 Intake and Output 03/08/17 06:59 Intake Total 1200 ml Balance 1200 ml Intake Oral 1200 ml # Bowel Movements 1 PHYSICAL EXAM Alert. Oriented to time, place and person. PERRL. EOMI. CN: no focal findings. Muscle tone: normal. Muscle strength: 4/5 on left, 5-/5 on right DTR: 1+ Plantar reflex: flexor Gait: not examined in bed. Sensory exam: stocking loss. No cerebellar signs elicited. Review of Relevant I have reviewed the following items lila (where applicable) has been applied. Labs Laboratory Tests Test 03/06/17 16:40 03/06/17 20:25 03/07/17 07:08 03/07/17 08:00 Glucose (Fingerstick) 102 mg/dL (70-99) 101 mg/dL (70-99) 116 mg/dL (70-99) Prothrombin Time 17.2 SEC (11.7-14.0) Prothromb Time International Ratio 1.5 (0.8-1.1) Sodium Level 133 mmol/L (136-145) Potassium Level 4.0 mmol/L (3.5-5.1) Chloride Level 95 mmol/L (98-107) Carbon Dioxide Level 29 mmol/L (21-32) Anion Gap 9 (6-14) Blood Urea Nitrogen 45 mg/dL (8-26) Creatinine 7.6 mg/dL (0.7-1.3) Estimated GFR (Cockcroft-Gault) 9.2 Glucose Level 133 mg/dL (70-99) Calcium Level 7.9 mg/dL (8.5-10.1) Phosphorus Level 7.2 mg/dL (2.6-4.7) Magnesium Level 2.3 mg/dL (1.8-2.4) Albumin 2.9 g/dL (3.4-5.0) Test 03/07/17 11:06 03/07/17 16:29 03/07/17 20:24 03/08/17 03:55 Glucose (Fingerstick) 197 mg/dL (70-99) 147 mg/dL (70-99) 182 mg/dL (70-99) Prothrombin Time 17.8 SEC (11.7-14.0) Prothromb Time International Ratio 1.6 (0.8-1.1) Sodium Level 136 mmol/L (136-145) Potassium Level 4.0 mmol/L (3.5-5.1) Chloride Level 97 mmol/L (98-107) Carbon Dioxide Level 28 mmol/L (21-32) Anion Gap 11 (6-14) Blood Urea Nitrogen 55 mg/dL (8-26) Creatinine 9.2 mg/dL (0.7-1.3) Estimated GFR (Cockcroft-Gault) 7.4 Glucose Level 109 mg/dL (70-99) Calcium Level 7.6 mg/dL (8.5-10.1) Phosphorus Level 7.5 mg/dL (2.6-4.7) Magnesium Level 2.4 mg/dL (1.8-2.4) Albumin 2.7 g/dL (3.4-5.0) Test 03/08/17 07:19 Glucose (Fingerstick) 112 mg/dL (70-99) Laboratory Tests Test 03/07/17 16:29 03/07/17 20:24 03/08/17 03:55 03/08/17 07:19 Glucose (Fingerstick) 147 mg/dL (70-99) 182 mg/dL (70-99) 112 mg/dL (70-99) Prothrombin Time 17.8 SEC (11.7-14.0) Prothromb Time International Ratio 1.6 (0.8-1.1) Sodium Level 136 mmol/L (136-145) Potassium Level 4.0 mmol/L (3.5-5.1) Chloride Level 97 mmol/L (98-107) Carbon Dioxide Level 28 mmol/L (21-32) Anion Gap 11 (6-14) Blood Urea Nitrogen 55 mg/dL (8-26) Creatinine 9.2 mg/dL (0.7-1.3) Estimated GFR (Cockcroft-Gault) 7.4 Glucose Level 109 mg/dL (70-99) Calcium Level 7.6 mg/dL (8.5-10.1) Phosphorus Level 7.5 mg/dL (2.6-4.7) Magnesium Level 2.4 mg/dL (1.8-2.4) Albumin 2.7 g/dL (3.4-5.0) Microbiology 02/28/17 Blood Culture - Final, Complete NO GROWTH AFTER 5 DAYS 02/28/17 Gram Stain - Final, Complete Medications Current Medications Morphine Sulfate 4 mg PRN Q15MIN PRN IV/SQ PAIN GREATER THAN 3/10 Last administered on 02/28/17 19:05; Start 02/28/17 at 18:00; Stop 03/01/17 at 17:59 ; Status DC Morphine Sulfate 4 mg PRN Q2HR PRN IV PAIN Last administered on 03/01/17 19:08 ; Start 02/28/17 at 19:15; Stop 03/01/17 at 19:14; Status DC Citalopram Hydrobromide (CeleXA) 20 mg DAILY PO Last administered on 03/08/17 07:55; Start 03/01/17 at 09:00 Clopidogrel Bisulfate (Plavix) 75 mg DAILY07 PO Last administered on 03/08/17 06:30; Start 03/01/17 at 07:00 Darbepoetin Jace (Aranesp) 100 mcg WEEKLYHS SQ Last administered on 03/07/17 21:44; Start 03/07/17 at 21:00 Dexamethasone (Maxidex) 1 drop Q4HRS OS Last administered on 03/08/17 08:00; Start 02/28/17 at 20:00 Diclofenac Sodium (Voltaren) 1 ayaz BID TP Last administered on 03/05/17 08:51 ; Start 02/28/17 at 21:00 Ergocalciferol (Vitamin D2) 50,000 unit WEEKLY PO Last administered on 08:06; Start 03/07/17 at 09:00 Famotidine (Pepcid) 20 mg HS PO Last administered on 03/07/17 21:46; Start at 21:00 Vitamin B Complex/ Vitamin C (Fernanda-Jimmy) 1 tab DAILY PO Last administered on 07:55; Start 03/01/17 at 09:00 Isosorbide Mononitrate (Imdur) 30 mg DAILY PO Last administered on 03/08/17 07 :58; Start 03/01/17 at 09:00 Ketorolac Tromethamine (Acular) 1 drop QID OS Last administered on 03/08/17 08 :00; Start 02/28/17 at 21:00 Levetiracetam (Keppra) 500 mg BID PO Last administered on 03/07/17 08:09; Start 02/28/17 at 21:00; Stop 03/07/17 at 12:15; Status DC Levothyroxine Sodium (Synthroid) 175 mcg DAILY07 PO Last administered on 06:30; Start 03/01/17 at 07:00 Lidocaine (Lidoderm) 1 patch DAILY TD Last administered on 03/05/17 08:50; Start 03/01/17 at 09:00 Metoprolol Tartrate (Lopressor) 50 mg BID PO Last administered on 03/08/17 08: 00; Start 02/28/17 at 21:00 Morphine Sulfate (Ms Contin) 30 mg TID PO Last administered on 03/05/17 00:22 ; Start 02/28/17 at 21:00 Moxifloxacin HCl (Vigamox) 1 drop TID OU Last administered on 03/08/17 08:00; Start 02/28/17 at 21:00 Nitroglycerin (Nitrostat) 0.4 mg PRN Q5MIN PRN SL CHEST PAIN; Start 02/28/17 at 19:45 Sucralfate (Carafate) 1 gm BID PO Last administered on 03/08/17 07:55; Start 02/28/17 at 21:00 Trazodone HCl (Desyrel) 25 mg QHS PO Last administered on 03/07/17 21:45; Start 02/28/17 at 21:00 Warfarin Sodium (Coumadin) 5 mg DAILY16 PO ; Start 03/01/17 at 16:00; Stop 03/01 at 16:00; Status DC Albuterol Sulfate (Ventolin Neb Soln) 2.5 mg PRN Q4HRS PRN NEB SHORTNESS OF BREATH Last administered on 03/08/17 06:54; Start 02/28/17 at 20:00 Atorvastatin Calcium (Lipitor) 80 mg QHS PO Last administered on 03/07/17 21: 46; Start 02/28/17 at 21:00 Non-Formulary Medication 5 ml DAILY LEFTEYE ; Start 03/01/17 at 09:00; Status UNV Calcium Carbonate/ Glycine (Oscal) 2,000 mg TID PO Last administered on 21:00; Start 03/01/17 at 09:00; Stop 03/03/17 at 09:21; Status DC Non-Formulary Medication 1 drop Q1HR OS ; Start 02/28/17 at 20:00; Status UNV Risperidone (RisperDAL) 0.5 mg QHS PO Last administered on 03/07/17 21:46; Start 02/28/17 at 21:00 Acetaminophen (Tylenol) 650 mg PRN Q6HRS PRN PO FEVER; Start 02/28/17 at 19:45 Ondansetron HCl (Zofran) 4 mg PRN Q6HRS PRN IV NAUSEA/VOMITING Last administered on 03/02/17 08:35; Start 02/28/17 at 19:45; Stop 03/02/17 at 17:27 ; Status DC Morphine Sulfate 2 mg PRN Q2HR PRN IV PAIN Last administered on 03/02/17 12:39 ; Start 02/28/17 at 19:45; Stop 03/02/17 at 17:27; Status DC Tramadol HCl (Ultram) 50 mg PRN Q6HRS PRN PO PAIN; Start 02/28/17 at 19:45 Hydralazine HCl (Apresoline) 10 mg PRN Q4HRS PRN IVP ELEVATED BP, SEE COMMENTS ; Start 02/28/17 at 19:45 Docusate Sodium (Colace) 100 mg PRN DAILY PRN PO CONSTIPATION Last administered on 03/08/17 07:59; Start 02/28/17 at 19:45 Vancomycin HCl 2 gm/Sodium Chloride 500 ml @ 250 mls/hr 1X ONCE IV ; Start at 20:30; Stop 02/28/17 at 22:29; Status Cancel Vancomycin HCl (Vanco Per Pharmacy) 1 each PRN DAILY PRN MC SEE COMMENTS Last administered on 03/04/17 13:17; Start 02/28/17 at 20:00; Stop 03/04/17 at 17:34 ; Status DC Cefepime HCl 1 gm/ Sodium Chloride 50 ml @ 100 mls/hr Q12HR IV ; Start at 20:30; Status Cancel Warfarin Sodium (Coumadin Per Physician) 1 each PRN DAILY PRN MC SEE COMMENTS Last administered on 03/07/17 11:45; Start 02/28/17 at 20:00 Vancomycin HCl 1.25 gm/Sodium Chloride 250 ml @ 167 mls/hr Q48H IV ; Start at 23:00; Stop 03/02/17 at 23:00; Status DC Vancomycin HCl 1 each 1X ONCE MC ; Start 03/04/17 at 22:30; Stop 03/04/17 at 22 :30; Status DC Cefepime HCl 1 gm/ Sodium Chloride 50 ml @ 100 mls/hr QHS IV Last administered on 03/05/17 00:22; Start 02/28/17 at 23:30; Stop 03/05/17 at 15:38 ; Status DC Vancomycin HCl 2 gm/Sodium Chloride 500 ml @ 250 mls/hr 1X ONCE IV Last administered on 02/28/17 23:30; Start 02/28/17 at 23:30; Stop 03/01/17 at 01:29 ; Status DC Insulin Aspart (NovoLOG) 0-9 UNITS TIDWMEALS SQ Last administered on 03/07/17 12:06; Start 03/01/17 at 08:00 Dextrose (Dextrose 50%-Water Syringe) 12.5 gm PRN Q15MIN PRN IV SEE COMMENTS; Start 03/01/17 at 03:00; Status Cancel Vancomycin HCl 1 each 1X ONCE MC Last administered on 03/02/17 05:00; Start 03/02/17 at 05:00; Stop 03/02/17 at 05:01; Status DC Sodium Chloride 1,000 ml @ 1,000 mls/hr Q1H PRN IV hypotension; Start 03/01/17 at 12:02; Stop 03/01/17 at 18:01; Status DC Diphenhydramine HCl (Benadryl) 25 mg 1X PRN PRN IV ITCHING; Start 03/01/17 at 12:15; Stop 03/02/17 at 12:14; Status DC Diphenhydramine HCl (Benadryl) 25 mg 1X PRN PRN IV ITCHING; Start 03/01/17 at 12:15; Stop 03/02/17 at 12:14; Status DC Sodium Chloride 1,000 ml @ 400 mls/hr Q2H30M PRN IV PATENCY; Start 03/01/17 at 12:02; Stop 03/02/17 at 00:01; Status DC Info (PHARMACY MONITORING -- do not chart) 1 each PRN DAILY PRN MC SEE COMMENTS ; Start 03/01/17 at 12:15 Warfarin Sodium (Coumadin) 7.5 mg 1X WARF ONCE PO ; Start 03/01/17 at 16:00; Stop 03/01/17 at 16:01; Status Cancel Warfarin Sodium (Coumadin) 5 mg DAILY16 PO Last administered on 03/07/17t 16:53 ; Start 03/01/17 at 16:00 Lidocaine HCl (Xylocaine-Mpf 1% Vial) 0.5 ml 1X STAT ID Last administered on t 14:31; Start 03/01/17 at 13:54; Stop 03/01/17 at 13:56; Status DC Fentanyl Citrate (Fentanyl 2ml Vial) 25 mcg PRN Q5MIN PRN IV MILD PAIN; Start 03/02/17 at 07:00; Stop 03/02/17 at 23:00; Status DC Fentanyl Citrate (Fentanyl 2ml Vial) 50 mcg PRN Q5MIN PRN IV MODERATE PAIN; Start 03/02/17 at 07:00; Stop 03/02/17 at 23:00; Status DC Morphine Sulfate 1 mg PRN Q10MIN PRN IV SEVERE PAIN; Start 03/02/17 at 07:00; Stop 03/02/17 at 23:00; Status DC Lidocaine HCl 2 ml PRN 1X PRN ID PRIOR TO IV START; Start 03/02/17 at 07:00; Stop 03/02/17 at 23:00; Status DC Hydromorphone HCl (Dilaudid) 0.5 mg PRN Q10MIN PRN IV SEV PAIN, Second choice; Start 03/02/17 at 07:00; Stop 03/02/17 at 23:00; Status DC Prochlorperazine Edisylate (Compazine) 5 mg PACU PRN PRN IV NAUSEA, MRX1; Start 03/02/17 at 07:00; Stop 03/02/17 at 23:00; Status DC Sodium Chloride 1,000 ml @ 0 mls/hr Q0M IV ; Start 03/02/17 at 13:45; Stop at 13:25; Status DC Vancomycin HCl 500 mg/Sodium Chloride 100 ml @ 100 mls/hr QTUTHSA IV ; Start at 16:00; Status Cancel Bupivacaine HCl/ Epinephrine Bitart (Marcaine-Epi 0.25%-[id number]) 50 ml STK-MED ONCE .ROUTE ; Start 03/02/17 at 11:53; Stop 03/02/17 at 11:54; Status DC Magnesium Sulfate/ Dextrose 50 ml @ 25 mls/hr PRN DAILY PRN IV for Mag < 1.7 on am labs; Start 03/02/17 at 14:00 Propofol 20 ml @ As Directed STK-MED ONCE IV ; Start 03/02/17 at 15:08; Stop at 15:09; Status DC Famotidine (Pepcid) 20 mg STK-MED ONCE .ROUTE ; Start 03/02/17 at 15:08; Stop at 15:09; Status DC Lidocaine HCl (Lidocaine Pf 2% Vial) 5 ml STK-MED ONCE .ROUTE ; Start 03/02/17 at 15:08; Stop 03/02/17 at 15:09; Status DC Ondansetron HCl (Zofran) 4 mg STK-MED ONCE .ROUTE ; Start 03/02/17 at 15:08; Stop 03/02/17 at 15:09; Status DC Fentanyl Citrate (Fentanyl 2ml Vial) 100 mcg STK-MED ONCE .ROUTE ; Start at 15:45; Stop 03/02/17 at 15:46; Status DC Rocuronium [place] (Zemuron) 50 mg STK-MED ONCE .ROUTE ; Start 03/02/17 at 15:45 ; Stop 03/02/17 at 15:46; Status DC Clindamycin Phosphate 0 ml @ As Directed STK-MED ONCE IV ; Start 03/02/17 at 15: 48; Stop 03/02/17 at 15:49; Status DC Clindamycin Phosphate 50 ml @ 100 mls/hr 1X ONCE IV Last administered on 03/02 16:27; Start 03/02/17 at 17:00; Stop 03/02/17 at 17:29; Status DC Oxycodone HCl (Roxicodone) 5 mg PRN Q3HRS PRN PO PAIN; Start 03/02/17 at 17:30 Morphine Sulfate 2 mg PRN Q1HR PRN IV PAIN; Start 03/02/17 at 17:30 Fentanyl Citrate (Fentanyl 2ml Vial) 25 mcg PRN Q1HR PRN IV PAIN; Start at 17:30 Senna/Docusate Sodium (Senna Plus) 1 tab DAILY PO Last administered on 07:55; Start 03/03/17 at 09:00 Polyethylene Glycol (miraLAX PACKET) 17 gm PRN DAILY PRN PO CONSTIPATION Last administered on 03/05/17 08:50; Start 03/02/17 at 17:30 Clindamycin Phosphate 50 ml @ 100 mls/hr Q6H IV ; Start 03/02/17 at 22:30; Stop 03/03/17 at 10:59; Status Cancel Ondansetron HCl (Zofran) 4 mg PRN Q4HRS PRN IV NAUSEA/VOMITING Last administered on 03/08/17 08:27; Start 03/02/17 at 17:30 Aspirin (Ecotrin) 81 mg DAILYWBKFT PO ; Start 03/03/17 at 08:00; Stop 03/03/17 at 08:39; Status DC Magnesium Hydroxide (Milk Of Magnesia) 2,400 mg 1X PRN PRN PO CONSTIPATION; Start 03/03/17 at 06:00; Stop 03/04/17 at 05:59; Status DC Bisacodyl (Dulcolax Supp) 10 mg 1X PRN PRN NM CONSTIPATION; Start 03/03/17 at 16:00; Stop 03/04/17 at 16:00; Status DC Acetaminophen/ Hydrocodone Bitart (Lortab 7.5/325) 1 tab PRN Q4HRS PRN PO PAIN ; Start 03/02/17 at 17:30 Morphine Sulfate 4 mg PRN Q2HR PRN IV PAIN Last administered on 03/05/17 06:42 ; Start 03/02/17 at 17:30 Acetaminophen/ Hydrocodone Bitart (Lortab 7.5/325) 2 tab PRN Q4HRS PRN PO PAIN ; Start 03/02/17 at 17:30 Dextrose (Dextrose 50%-Water Syringe) 12.5 gm PRN Q15MIN PRN IV SEE COMMENTS; Start 03/02/17 at 17:30 Sevoflurane (Ultane) 60 ml STK-MED ONCE IH ; Start 03/02/17 at 17:32; Stop 03/02 at 17:33; Status DC Dexamethasone Sodium Phosphate (Decadron) 20 mg STK-MED ONCE .ROUTE ; Start at 17:32; Stop 03/02/17 at 17:33; Status DC Phenylephrine HCl 1 mg STK-MED ONCE IV ; Start 03/02/17 at 17:32; Stop 03/02/17 at 17:33; Status DC Vancomycin HCl 1 gm/Sodium Chloride 250 ml @ 250 mls/hr QTUTHSA IV Last administered on 03/03/17 18:42; Start 03/03/17 at 16:00; Stop 03/04/17 at 17:34 ; Status DC Vancomycin HCl 1 each 1X ONCE MC ; Start 03/06/17 at 05:00; Stop 03/06/17 at 05 :01; Status Cancel Lidocaine HCl (Xylocaine-Mpf 1% Vial) 0.5 ml 1X STAT ID Last administered on 08:20; Start 03/03/17 at 08:05; Stop 03/03/17 at 08:10; Status DC Sodium Chloride 1,000 ml @ 1,000 mls/hr Q1H PRN IV hypotension; Start 03/03/17 at 08:08; Stop 03/03/17 at 14:07; Status DC Diphenhydramine HCl (Benadryl) 25 mg 1X PRN PRN IV ITCHING; Start 03/03/17 at 08:15; Stop 03/04/17 at 08:14; Status DC Diphenhydramine HCl (Benadryl) 25 mg 1X PRN PRN IV ITCHING; Start 03/03/17 at 08:15; Stop 03/04/17 at 08:14; Status DC Sodium Chloride 1,000 ml @ 400 mls/hr Q2H30M PRN IV PATENCY; Start 03/03/17 at 08:08; Stop 03/03/17 at 20:07; Status DC Info (PHARMACY MONITORING -- do not chart) 1 each PRN DAILY PRN MC SEE COMMENTS ; Start 03/03/17 at 08:15; Status UNV Info (PHARMACY MONITORING -- do not chart) 1 each PRN DAILY PRN MC SEE COMMENTS ; Start 03/03/17 at 08:15; Status UNV Calcium Carbonate/ Glycine (Oscal) 2,000 mg TIDAC PO Last administered on 07:55; Start 03/03/17 at 11:30 Ciprofloxacin (Cipro) 500 mg DAILY PO Last administered on 03/08/17 07:54; Start 03/06/17 at 09:00 Lorazepam (Ativan) 2 mg 1X ONCE PO Last administered on 03/05/17 20:44; Start 03/05/17 at 20:30; Stop 03/05/17 at 20:31; Status DC Lidocaine HCl (Xylocaine-Mpf 1% Vial) 2 ml STK-MED ONCE .ROUTE ; Start 03/06/17 at 08:09; Stop 03/06/17 at 08:10; Status DC Sodium Chloride 1,000 ml @ 1,000 mls/hr Q1H PRN IV hypotension; Start 03/06/17 at 08:46; Stop 03/06/17 at 14:45; Status DC Albumin Human 200 ml @ 200 mls/hr 1X PRN PRN IV Hypotension; Start 03/06/17 at 09:00; Stop 03/06/17 at 19:00; Status DC Acetaminophen (Tylenol) 500 mg 1X PRN PRN PO MILD PAIN / TEMP; Start 03/06/17 at 09:00; Stop 03/06/17 at 19:00; Status DC Diphenhydramine HCl (Benadryl) 25 mg 1X PRN PRN IV ITCHING; Start 03/06/17 at 09:00; Stop 03/06/17 at 19:00; Status DC Sodium Chloride 1,000 ml @ 400 mls/hr Q2H30M PRN IV PATENCY; Start 03/06/17 at 08:46; Stop 03/06/17 at 20:45; Status DC Info (PHARMACY MONITORING -- do not chart) 1 each PRN DAILY PRN MC SEE COMMENTS ; Start 03/06/17 at 09:00; Stop 03/06/17 at 09:00; Status DC Info (PHARMACY MONITORING -- do not chart) 1 each PRN DAILY PRN MC SEE COMMENTS ; Start 03/06/17 at 09:00; Status Cancel Levetiracetam 500 mg/Sodium Chloride 100 ml @ 400 mls/hr 1X STAT IV Last administered on 03/06/17 14:40; Start 03/06/17 at 14:11; Stop 03/06/17 at 14:25 ; Status DC Levetiracetam 500 mg/Sodium Chloride 100 ml @ 400 mls/hr 1X ONCE IV Last administered on 03/06/17 19:19; Start 03/06/17 at 19:30; Stop 03/06/17 at 19:44 ; Status DC Levetiracetam (Keppra) 1,000 mg BID PO Last administered on 03/08/17 07:54; Start 03/07/17 at 21:00 Levetiracetam 1000 mg/Sodium Chloride 110 ml @ 440 mls/hr 1X ONCE IV Last administered on 03/08/17 09:16; Start 03/08/17 at 09:00; Stop 03/08/17 at 09:14 ; Status DC Sodium Chloride 1,000 ml @ 1,000 mls/hr Q1H PRN IV hypotension; Start 03/08/17 at 09:25; Stop 03/08/17 at 16:00 Sodium Chloride 1,000 ml @ 400 mls/hr Q2H30M PRN IV PATENCY; Start 03/08/17 at 09:25; Stop 03/08/17 at 16:00 Info (PHARMACY MONITORING -- do not chart) 1 each PRN DAILY PRN MC SEE COMMENTS ; Start 03/08/17 at 09:30; Status UNV Info (PHARMACY MONITORING -- do not chart) 1 each PRN DAILY PRN MC SEE COMMENTS ; Start 03/08/17 at 09:30; Status UNV Lidocaine HCl (Xylocaine-Mpf 1% Vial) 2 ml STK-MED ONCE .ROUTE ; Start 03/08/17 at 09:52; Stop 03/08/17 at 09:53; Status DC Active Scripts Active Cipro (Ciprofloxacin Hcl) 250 Mg Tablet 500 Mg PO DAILY 7 Days Levetiracetam 500 Mg Tablet 500 Mg PO BID Morphine Sulfate Er (Morphine Sulfate) 30 Mg Tablet.er 30 Mg PO TID Lidoderm (Lidocaine) 700 Mg Adh..patch 1 Patch TD DAILY Ventolin Hfa Inhaler (Albuterol Sulfate) 18 Gm Hfa.aer.ad 2 Puff INH Q4HRS PRN Metoprolol Tartrate 50 Mg Tablet 50 Mg PO BID Synthroid (Levothyroxine Sodium) 175 Mcg Tablet 175 Mcg PO DAILY07 Isosorbide Mononitrate Er (Isosorbide Mononitrate) 30 Mg Tab.er.24h 30 Mg PO DAILY Reported Ketorolac Tromethamine 5 Ml Drops 1 Drop OS QID Maxidex (Dexamethasone) 5 Ml Drops.susp 1 Drop OS Q4HRS Ropinirole Hcl 0.25 Mg Tablet 0.25 Mg PO Oxycodone Hcl 5 Mg Capsule 5 Mg PO PRN Citalopram Hbr (Citalopram Hydrobromide) 20 Mg Tablet 1 Tab PO DAILY Trazodone Hcl 50 Mg Tablet 0.5-1 Tab PO QHS Risperidone 0.5 Mg Tablet 1 Tab PO QHS Bromsite (Bromfenac Sodium) 5 Ml Drops 5 Ml LEFTEYE DAILY Vigamox (Moxifloxacin Hcl) 3 Ml Drops 1 Drop LEFTEYE TID Prednisolone Acetate 5 Ml Drops.susp 1 Drop OS Q1HR Famotidine 20 Mg Tablet 20 Mg PO HS Coumadin (Warfarin Sodium) 5 Mg Tablet 1 Tab PO DAILY Nephro-Jimmy Tablet (Folic Acid/Vitamin B Comp W-C) 0.8 Mg Tablet 1 Tab PO DAILY Carafate (Sucralfate) 1 Gm Tablet 1 Tab PO BID Nitrostat (Nitroglycerin) 0.4 Mg Tab.subl 0.4 Mg SL PRN Q5MIN PRN Calcium Carbonate 500 Mg/5 Ml Oral.susp 2,000 Mg PO TID Aranesp Syringe (Darbepoetin Jace In Polysorbat) 100 Mcg/0.5 Ml Disp.syrin 100 Mcg SQ WEEKLY Voltaren (Diclofenac Sodium) 100 Gm Gel..gram. 1 Gm TP BID Clopidogrel (Clopidogrel Bisulfate) 75 Mg Tablet 75 Mg PO DAILY07 Renvela (Sevelamer Carbonate) 800 Mg Tablet Tab PO TID Vitamin D2 (Ergocalciferol (Vitamin D2)) 50,000 Unit Capsule 50,000 Unit PO WEEKLY Atorvastatin Calcium 80 Mg Tablet 80 Mg PO HS Vitals/I & O Vital Sign - Last 24 Hours 03/07/17 03/07/17 03/07/17 03/07/17 15:00 19:00 19:35 21:46 Temp 98.8 98.1 98.8 98.1 Pulse 74 72 72 Resp 18 20 B/P (MAP) 155/71 (99) 124/68 (86) 124/68 Pulse Ox 97 93 O2 Delivery Room Air Room Air Room Air 03/07/17 03/08/17 03/08/17 03/08/17 23:25 03:00 06:56 07:00 Temp 98.6 97.9 97.9 98.6 97.9 97.9 Pulse 71 80 76 Resp 18 18 20 B/P (MAP) 106/48 (67) 135/69 (91) 130/65 (86) Pulse Ox 96 95 98 95 O2 Delivery Room Air Room Air Room Air Room Air 03/08/17 03/08/17 03/08/17 07:58 08:00 08:35 Pulse 76 76 B/P (MAP) 130/68 130/68 O2 Delivery Room Air Intake and Output 03/07/17 03/07/17 03/08/17 14:59 22:59 06:59 Intake Total 480 ml 720 ml Balance 480 ml 720 ml Images EEG was normal, muscle artifact noted MULU MIN MD Mar 08, 2017 13:53
--- NOTE | 2017-03-08 15:30 | PDOC ---
Subjective: Subjective: Denies abd pain, doesn't like food here. Objective: Objective: Dc planned earlier today, held per neuro. Vital Signs: Vital Signs Date Time Temp Pulse Resp B/P (MAP) Pulse Ox O2 Delivery O2 Flow Rate FiO2 03/08/17 08:35 Room Air 03/08/17 08:00 76 130/68 03/08/17 07:00 97.9 20 95 97.9 Labs: Laboratory Tests Test 03/07/17 16:29 03/07/17 20:24 03/08/17 07:19 Glucose (Fingerstick) 147 mg/dL (70-99) 182 mg/dL (70-99) 112 mg/dL (70-99) PE: GEN: dialyzing ABD: NABS, S/ND/NT NEURO/PSYCH: A & O 3 A/P: Seizure Osteomyelitis s/p transmetatarsal amputation Right-sided abd pain - resolved -- Abd pain resolved. DC per neuro/primary. CARINE OTTO Mar 08, 2017 15:30
[2017-03-08] MEDS: WARFARIN 5 MG TABLET. PO SCH (17:01)
[2017-03-08 19:00] VITALS: BP 130/67
--- NOTE | 2017-03-08 19:55 | EEG ---
DATE OF SERVICE: 03/07/2017 ATTENDING PHYSICIAN: Bhargav Horton MD EEG NUMBER: [id number] OBJECTIVE: The patient is a 51-year-old male with seizures. DESCRIPTION: This is a digital study. Electrodes are placed according to the international 10-20 system. Bipolar and referential montages are available. Activation procedures typically include hyperventilation and intermittent photic stimulation. INTERPRETATION: The waking background consists of 8 Hz, 20-50 microvolt activity, symmetrically distributed over parietooccipital regions and reactive to eye opening. The patient is unable to relax during the recording, some muscle artifact obscures throughout the recording. Sleep is not achieved. Hyperventilation is noncontributory. Intermittent photic stimulation is noncontributory. IMPRESSION: This electroencephalogram with the patient awake only is within normal limits. There is no evidence of focal, paroxysmal or epileptiform activity. The patient was unable to relax during the recording, so muscle artifact did obscure the study. Thank you for letting us help with the patient's care. MULU MIN MD DR: DENIA/roni JOB#: [id number] / [id number] MARIA ISABEL Chamberlain DO
[2017-03-08] MEDS: traZODone 50 MG TABLET. PO SCH (21:23)
[2017-03-08] MEDS: FAMOTIDINE 20 MG TABLET. PO SCH (21:24)
[2017-03-08] MEDS: risperiDONE 0.25 MG TABLET. PO SCH (21:24)
[2017-03-08] MEDS: ATORVASTATIN CALCIUM 40 MG TABLET. PO SCH (21:25)
[2017-03-08 23:00] VITALS: BP 99/50
[2017-03-09 03:00] VITALS: BP 124/58
[2017-03-09] MEDS: DEXAMETHASONE 0.1% OPHTH SOLUTION 5ML BOTTLE. OS SCH ×4 (04:00→12:00)
[2017-03-09 04:48] LABS: INR 1.7 (0.8-1.1); PROTHROMBIN TIME PATIENT 18.8 SEC (11.7-14.0)
[2017-03-09 04:59] LABS: ALBUMIN 2.6 g/dL (3.4-5.0); CREATININE 6.3 mg/dL (0.7-1.3); GFR 11.4
[2017-03-09] MEDS: CLOPIDOGREL BISULFATE 75 MG TABLET PO SCH (06:11)
[2017-03-09] MEDS: CALCIUM CARBONATE 500 MG TABLET PO SCH ×2 (06:11→12:09)
[2017-03-09] MEDS: LEVOTHYROXINE 175 MCG TABLET PO SCH (06:11)
[2017-03-09 07:00] VITALS: BP 128/68
[2017-03-09] MEDS: INSULIN ASPART 300 UNITS/3 ML INSULN.PEN SQ SCH ×2 (08:00→12:11)
[2017-03-09] MEDS: FOLIC/VIT B COMP W-C (RENAL) TABLET. PO SCH (08:16)
[2017-03-09] MEDS: METOPROLOL TART IMMED RELEASE 50 MG TABLET. PO SCH (08:16)
[2017-03-09] MEDS: ISOSORBIDE MONONITRATE ER 30 MG TAB.ER.24H PO SCH (08:17)
[2017-03-09] MEDS: levETIRAcetam 500 MG TABLET PO SCH (08:17)
[2017-03-09] MEDS: SUCRALFATE 1 GM TABLET. PO SCH (08:17)
[2017-03-09] MEDS: CIPROFLOXACIN HCL 250 MG TABLET. PO SCH (08:17)
[2017-03-09] MEDS: CITALOPRAM 20 MG TABLET. PO SCH (08:17)
[2017-03-09] MEDS: SENNOSIDES/DOCUSATE 8.6/50MG TABLET. PO SCH (08:17)
[2017-03-09] MEDS: KETOROLAC TROMETHAMINE 0.5% OPHTH SOLUTION 3ML BOTTLE. OS SCH ×2 (08:20→12:25)
[2017-03-09] MEDS: MOXIFLOXACIN 0.5% OPHTH SOLUTION 3ML BOTTLE. OU SCH ×2 (08:20→14:00)
[2017-03-09] MEDS: MORPHINE ER 30 MG TABLET.ER PO SCH ×2 (08:20→14:00)
[2017-03-09] MEDS: LIDOCAINE (700MG/PATCH) PATCH. TD SCH (08:21)
[2017-03-09] MEDS: DICLOFENAC SODIUM 1% TOPICAL GEL 100GM TUBE. TP SCH (08:21)
--- NOTE | 2017-03-09 09:44 | PDOC ---
Renal-Progress Notes Subjective Notes Notes NONE History of Present Illness Hx of present illness NO CHANGE Vitals Vitals Vital Signs Date Time Temp Pulse Resp B/P (MAP) Pulse Ox O2 Delivery O2 Flow Rate FiO2 03/09/17 08:17 71 128/68 03/09/17 08:00 Room Air 03/09/17 07:00 97.4 20 97 97.4 Weight Weight [ ] I.O. Intake and Output Intake and Output 03/09/17 07:00 Intake Total 1220 ml Output Total 75 ml Balance 1145 ml Intake Oral 1220 ml Emesis 75 ml Labs Labs Laboratory Tests Test 03/08/17 16:55 03/08/17 21:01 03/09/17 03:27 03/09/17 07:14 Glucose (Fingerstick) 141 mg/dL (70-99) 202 mg/dL (70-99) 113 mg/dL (70-99) Prothrombin Time 18.8 SEC (11.7-14.0) Prothromb Time International Ratio 1.7 (0.8-1.1) Sodium Level 138 mmol/L (136-145) Potassium Level 4.0 mmol/L (3.5-5.1) Chloride Level 100 mmol/L (98-107) Carbon Dioxide Level 33 mmol/L (21-32) Anion Gap 5 (6-14) Blood Urea Nitrogen 34 mg/dL (8-26) Creatinine 6.3 mg/dL (0.7-1.3) Estimated GFR (Cockcroft-Gault) 11.4 Glucose Level 120 mg/dL (70-99) Calcium Level 8.0 mg/dL (8.5-10.1) Phosphorus Level 4.0 mg/dL (2.6-4.7) Albumin 2.6 g/dL (3.4-5.0) Micro Micro Microbiology 02/28/17 Blood Culture - Final, Complete NO GROWTH AFTER 5 DAYS 02/28/17 Gram Stain - Final, Complete Review of Systems Constitutional: yes: weakness, alert, oriented Pulmonary: Yes no symptom reported Gastrointestional: Yes: no symptom reported Genitourinary: Yes: no symptom reported Musculoskeletal: Yes: no symptom reported Psychiatric/Neurological: Yes: no symptom reported Endocrine: Yes: no symptom reported Physical Exam General Appearance: no apparent distress Skin: warm Respiratory: bilateral CTA Heart: S1S2, RRR Abdomen: soft, bowel sounds present Genitourinary: bladder flat Extremities: atrophy Neurology: alert Musculoskeletal: Osteoarthritis Assessment Assessment IMP ESRD ANEMIA DM II HTN S/P TMA SEIZURES PLAN ANTIBIOTICS HD TOMORROW CONT KEITH GRACE VILLEDA MD Mar 09, 2017 09:44
--- NOTE | 2017-03-09 09:48 | PDOC ---
PROGRESS NOTES Assessment Problems Medical Problems: (1) End stage renal disease Status: Acute (2) Foot ulcer, left Status: Acute Epilepsy, EEG negative No more emesis No additional seizures Plan Hold on repeating MRI studies which were negative in November. Levetiracetam to 1000 mg bid. I told him he could take 500 mg to BID and then call my office for the 1000-milligram size when he runs out Okay for discharge Follow up with me in one month Discussed with patient's Subjective He is worried about the wound VAC Objective Vital Signs Date Time Temp Pulse Resp B/P (MAP) Pulse Ox O2 Delivery O2 Flow Rate FiO2 03/09/17 08:17 71 128/68 03/09/17 08:00 Room Air 03/09/17 07:00 97.4 20 97 97.4 Intake and Output 03/09/17 07:00 Intake Total 1220 ml Output Total 75 ml Balance 1145 ml Intake Oral 1220 ml Emesis 75 ml PHYSICAL EXAM Alert. Oriented to time, place and person. PERRL. EOMI. CN: no focal findings. Muscle tone: normal. Muscle strength: 4/5 on left, 5-/5 on right DTR: 1+ Plantar reflex: flexor Gait: not examined in bed. Sensory exam: stocking loss. No cerebellar signs elicited. Review of Relevant I have reviewed the following items lila (where applicable) has been applied. Labs Laboratory Tests Test 03/07/17 11:06 03/07/17 16:29 03/07/17 20:24 03/08/17 03:55 Glucose (Fingerstick) 197 mg/dL (70-99) 147 mg/dL (70-99) 182 mg/dL (70-99) Prothrombin Time 17.8 SEC (11.7-14.0) Prothromb Time International Ratio 1.6 (0.8-1.1) Sodium Level 136 mmol/L (136-145) Potassium Level 4.0 mmol/L (3.5-5.1) Chloride Level 97 mmol/L (98-107) Carbon Dioxide Level 28 mmol/L (21-32) Anion Gap 11 (6-14) Blood Urea Nitrogen 55 mg/dL (8-26) Creatinine 9.2 mg/dL (0.7-1.3) Estimated GFR (Cockcroft-Gault) 7.4 Glucose Level 109 mg/dL (70-99) Calcium Level 7.6 mg/dL (8.5-10.1) Phosphorus Level 7.5 mg/dL (2.6-4.7) Magnesium Level 2.4 mg/dL (1.8-2.4) Albumin 2.7 g/dL (3.4-5.0) Test 03/08/17 07:19 03/08/17 16:55 03/08/17 21:01 03/09/17 03:27 Glucose (Fingerstick) 112 mg/dL (70-99) 141 mg/dL (70-99) 202 mg/dL (70-99) Prothrombin Time 18.8 SEC (11.7-14.0) Prothromb Time International Ratio 1.7 (0.8-1.1) Sodium Level 138 mmol/L (136-145) Potassium Level 4.0 mmol/L (3.5-5.1) Chloride Level 100 mmol/L (98-107) Carbon Dioxide Level 33 mmol/L (21-32) Anion Gap 5 (6-14) Blood Urea Nitrogen 34 mg/dL (8-26) Creatinine 6.3 mg/dL (0.7-1.3) Estimated GFR (Cockcroft-Gault) 11.4 Glucose Level 120 mg/dL (70-99) Calcium Level 8.0 mg/dL (8.5-10.1) Phosphorus Level 4.0 mg/dL (2.6-4.7) Albumin 2.6 g/dL (3.4-5.0) Test 03/09/17 07:14 Glucose (Fingerstick) 113 mg/dL (70-99) Laboratory Tests Test 03/08/17 16:55 03/08/17 21:01 03/09/17 03:27 03/09/17 07:14 Glucose (Fingerstick) 141 mg/dL (70-99) 202 mg/dL (70-99) 113 mg/dL (70-99) Prothrombin Time 18.8 SEC (11.7-14.0) Prothromb Time International Ratio 1.7 (0.8-1.1) Sodium Level 138 mmol/L (136-145) Potassium Level 4.0 mmol/L (3.5-5.1) Chloride Level 100 mmol/L (98-107) Carbon Dioxide Level 33 mmol/L (21-32) Anion Gap 5 (6-14) Blood Urea Nitrogen 34 mg/dL (8-26) Creatinine 6.3 mg/dL (0.7-1.3) Estimated GFR (Cockcroft-Gault) 11.4 Glucose Level 120 mg/dL (70-99) Calcium Level 8.0 mg/dL (8.5-10.1) Phosphorus Level 4.0 mg/dL (2.6-4.7) Albumin 2.6 g/dL (3.4-5.0) Microbiology 02/28/17 Blood Culture - Final, Complete NO GROWTH AFTER 5 DAYS 02/28/17 Gram Stain - Final, Complete Medications Current Medications Morphine Sulfate 4 mg PRN Q15MIN PRN IV/SQ PAIN GREATER THAN 3/10 Last administered on 02/28/17 19:05; Start 02/28/17 at 18:00; Stop 03/01/17 at 17:59 ; Status DC Morphine Sulfate 4 mg PRN Q2HR PRN IV PAIN Last administered on 03/01/17 19:08 ; Start 02/28/17 at 19:15; Stop 03/01/17 at 19:14; Status DC Citalopram Hydrobromide (CeleXA) 20 mg DAILY PO Last administered on 03/09/17 08:17; Start 03/01/17 at 09:00 Clopidogrel Bisulfate (Plavix) 75 mg DAILY07 PO Last administered on 03/09/17 06:11; Start 03/01/17 at 07:00 Darbepoetin Jace (Aranesp) 100 mcg WEEKLYHS SQ Last administered on 03/07/17 21:44; Start 03/07/17 at 21:00 Dexamethasone (Maxidex) 1 drop Q4HRS OS Last administered on 03/08/17 08:00; Start 02/28/17 at 20:00 Diclofenac Sodium (Voltaren) 1 ayaz BID TP Last administered on 03/08/17 21:00 ; Start 02/28/17 at 21:00 Ergocalciferol (Vitamin D2) 50,000 unit WEEKLY PO Last administered on 08:06; Start 03/07/17 at 09:00 Famotidine (Pepcid) 20 mg HS PO Last administered on 03/08/17 21:24; Start at 21:00 Vitamin B Complex/ Vitamin C (Fernanda-Jimmy) 1 tab DAILY PO Last administered on 08:16; Start 03/01/17 at 09:00 Isosorbide Mononitrate (Imdur) 30 mg DAILY PO Last administered on 03/09/17 08 :17; Start 03/01/17 at 09:00 Ketorolac Tromethamine (Acular) 1 drop QID OS Last administered on 03/08/17 21 :26; Start 02/28/17 at 21:00 Levetiracetam (Keppra) 500 mg BID PO Last administered on 03/07/17 08:09; Start 02/28/17 at 21:00; Stop 03/07/17 at 12:15; Status DC Levothyroxine Sodium (Synthroid) 175 mcg DAILY07 PO Last administered on 06:11; Start 03/01/17 at 07:00 Lidocaine (Lidoderm) 1 patch DAILY TD Last administered on 03/05/17 08:50; Start 03/01/17 at 09:00 Metoprolol Tartrate (Lopressor) 50 mg BID PO Last administered on 03/09/17 08: 16; Start 02/28/17 at 21:00 Morphine Sulfate (Ms Contin) 30 mg TID PO Last administered on 03/05/17 00:22 ; Start 02/28/17 at 21:00 Moxifloxacin HCl (Vigamox) 1 drop TID OU Last administered on 03/08/17 08:00; Start 02/28/17 at 21:00 Nitroglycerin (Nitrostat) 0.4 mg PRN Q5MIN PRN SL CHEST PAIN; Start 02/28/17 at 19:45 Sucralfate (Carafate) 1 gm BID PO Last administered on 03/09/17 08:17; Start 02/28/17 at 21:00 Trazodone HCl (Desyrel) 25 mg QHS PO Last administered on 03/08/17 21:23; Start 02/28/17 at 21:00 Warfarin Sodium (Coumadin) 5 mg DAILY16 PO ; Start 03/01/17 at 16:00; Stop 03/01 at 16:00; Status DC Albuterol Sulfate (Ventolin Neb Soln) 2.5 mg PRN Q4HRS PRN NEB SHORTNESS OF BREATH Last administered on 03/08/17 06:54; Start 02/28/17 at 20:00 Atorvastatin Calcium (Lipitor) 80 mg QHS PO Last administered on 03/08/17 21: 25; Start 02/28/17 at 21:00 Non-Formulary Medication 5 ml DAILY LEFTEYE ; Start 03/01/17 at 09:00; Status UNV Calcium Carbonate/ Glycine (Oscal) 2,000 mg TID PO Last administered on 21:00; Start 03/01/17 at 09:00; Stop 03/03/17 at 09:21; Status DC Non-Formulary Medication 1 drop Q1HR OS ; Start 02/28/17 at 20:00; Status UNV Risperidone (RisperDAL) 0.5 mg QHS PO Last administered on 03/08/17 21:24; Start 02/28/17 at 21:00 Acetaminophen (Tylenol) 650 mg PRN Q6HRS PRN PO FEVER; Start 02/28/17 at 19:45 Ondansetron HCl (Zofran) 4 mg PRN Q6HRS PRN IV NAUSEA/VOMITING Last administered on 03/02/17 08:35; Start 02/28/17 at 19:45; Stop 03/02/17 at 17:27 ; Status DC Morphine Sulfate 2 mg PRN Q2HR PRN IV PAIN Last administered on 03/02/17 12:39 ; Start 02/28/17 at 19:45; Stop 03/02/17 at 17:27; Status DC Tramadol HCl (Ultram) 50 mg PRN Q6HRS PRN PO PAIN; Start 02/28/17 at 19:45 Hydralazine HCl (Apresoline) 10 mg PRN Q4HRS PRN IVP ELEVATED BP, SEE COMMENTS ; Start 02/28/17 at 19:45 Docusate Sodium (Colace) 100 mg PRN DAILY PRN PO CONSTIPATION Last administered on 03/08/17 07:59; Start 02/28/17 at 19:45 Vancomycin HCl 2 gm/Sodium Chloride 500 ml @ 250 mls/hr 1X ONCE IV ; Start at 20:30; Stop 02/28/17 at 22:29; Status Cancel Vancomycin HCl (Vanco Per Pharmacy) 1 each PRN DAILY PRN MC SEE COMMENTS Last administered on 03/04/17 13:17; Start 02/28/17 at 20:00; Stop 03/04/17 at 17:34 ; Status DC Cefepime HCl 1 gm/ Sodium Chloride 50 ml @ 100 mls/hr Q12HR IV ; Start at 20:30; Status Cancel Warfarin Sodium (Coumadin Per Physician) 1 each PRN DAILY PRN MC SEE COMMENTS Last administered on 03/07/17 11:45; Start 02/28/17 at 20:00 Vancomycin HCl 1.25 gm/Sodium Chloride 250 ml @ 167 mls/hr Q48H IV ; Start at 23:00; Stop 03/02/17 at 23:00; Status DC Vancomycin HCl 1 each 1X ONCE MC ; Start 03/04/17 at 22:30; Stop 03/04/17 at 22 :30; Status DC Cefepime HCl 1 gm/ Sodium Chloride 50 ml @ 100 mls/hr QHS IV Last administered on 03/05/17 00:22; Start 02/28/17 at 23:30; Stop 03/05/17 at 15:38 ; Status DC Vancomycin HCl 2 gm/Sodium Chloride 500 ml @ 250 mls/hr 1X ONCE IV Last administered on 02/28/17 23:30; Start 02/28/17 at 23:30; Stop 03/01/17 at 01:29 ; Status DC Insulin Aspart (NovoLOG) 0-9 UNITS TIDWMEALS SQ Last administered on 03/07/17 12:06; Start 03/01/17 at 08:00 Dextrose (Dextrose 50%-Water Syringe) 12.5 gm PRN Q15MIN PRN IV SEE COMMENTS; Start 03/01/17 at 03:00; Status Cancel Vancomycin HCl 1 each 1X ONCE MC Last administered on 03/02/17 05:00; Start 03/02/17 at 05:00; Stop 03/02/17 at 05:01; Status DC Sodium Chloride 1,000 ml @ 1,000 mls/hr Q1H PRN IV hypotension; Start 03/01/17 at 12:02; Stop 03/01/17 at 18:01; Status DC Diphenhydramine HCl (Benadryl) 25 mg 1X PRN PRN IV ITCHING; Start 03/01/17 at 12:15; Stop 03/02/17 at 12:14; Status DC Diphenhydramine HCl (Benadryl) 25 mg 1X PRN PRN IV ITCHING; Start 03/01/17 at 12:15; Stop 03/02/17 at 12:14; Status DC Sodium Chloride 1,000 ml @ 400 mls/hr Q2H30M PRN IV PATENCY; Start 03/01/17 at 12:02; Stop 03/02/17 at 00:01; Status DC Info (PHARMACY MONITORING -- do not chart) 1 each PRN DAILY PRN MC SEE COMMENTS ; Start 03/01/17 at 12:15 Warfarin Sodium (Coumadin) 7.5 mg 1X WARF ONCE PO ; Start 03/01/17 at 16:00; Stop 03/01/17 at 16:01; Status Cancel Warfarin Sodium (Coumadin) 5 mg DAILY16 PO Last administered on 03/08/17 17:01 ; Start 03/01/17 at 16:00 Lidocaine HCl (Xylocaine-Mpf 1% Vial) 0.5 ml 1X STAT ID Last administered on 14:31; Start 03/01/17 at 13:54; Stop 03/01/17 at 13:56; Status DC Fentanyl Citrate (Fentanyl 2ml Vial) 25 mcg PRN Q5MIN PRN IV MILD PAIN; Start 03/02/17 at 07:00; Stop 03/02/17 at 23:00; Status DC Fentanyl Citrate (Fentanyl 2ml Vial) 50 mcg PRN Q5MIN PRN IV MODERATE PAIN; Start 03/02/17 at 07:00; Stop 03/02/17 at 23:00; Status DC Morphine Sulfate 1 mg PRN Q10MIN PRN IV SEVERE PAIN; Start 03/02/17 at 07:00; Stop 03/02/17 at 23:00; Status DC Lidocaine HCl 2 ml PRN 1X PRN ID PRIOR TO IV START; Start 03/02/17 at 07:00; Stop 03/02/17 at 23:00; Status DC Hydromorphone HCl (Dilaudid) 0.5 mg PRN Q10MIN PRN IV SEV PAIN, Second choice; Start 03/02/17 at 07:00; Stop 03/02/17 at 23:00; Status DC Prochlorperazine Edisylate (Compazine) 5 mg PACU PRN PRN IV NAUSEA, MRX1; Start 03/02/17 at 07:00; Stop 03/02/17 at 23:00; Status DC Sodium Chloride 1,000 ml @ 0 mls/hr Q0M IV ; Start 03/02/17 at 13:45; Stop at 13:25; Status DC Vancomycin HCl 500 mg/Sodium Chloride 100 ml @ 100 mls/hr QTUTHSA IV ; Start at 16:00; Status Cancel Bupivacaine HCl/ Epinephrine Bitart (Marcaine-Epi 0.25%-[id number]) 50 ml STK-MED ONCE .ROUTE ; Start 03/02/17 at 11:53; Stop 03/02/17 at 11:54; Status DC Magnesium Sulfate/ Dextrose 50 ml @ 25 mls/hr PRN DAILY PRN IV for Mag < 1.7 on am labs; Start 03/02/17 at 14:00 Propofol 20 ml @ As Directed STK-MED ONCE IV ; Start 03/02/17 at 15:08; Stop at 15:09; Status DC Famotidine (Pepcid) 20 mg STK-MED ONCE .ROUTE ; Start 03/02/17 at 15:08; Stop at 15:09; Status DC Lidocaine HCl (Lidocaine Pf 2% Vial) 5 ml STK-MED ONCE .ROUTE ; Start 03/02/17 at 15:08; Stop 03/02/17 at 15:09; Status DC Ondansetron HCl (Zofran) 4 mg STK-MED ONCE .ROUTE ; Start 03/02/17 at 15:08; Stop 03/02/17 at 15:09; Status DC Fentanyl Citrate (Fentanyl 2ml Vial) 100 mcg STK-MED ONCE .ROUTE ; Start at 15:45; Stop 03/02/17 at 15:46; Status DC Rocuronium [place] (Zemuron) 50 mg STK-MED ONCE .ROUTE ; Start 03/02/17 at 15:45 ; Stop 03/02/17 at 15:46; Status DC Clindamycin Phosphate 0 ml @ As Directed STK-MED ONCE IV ; Start 03/02/17 at 15: 48; Stop 03/02/17 at 15:49; Status DC Clindamycin Phosphate 50 ml @ 100 mls/hr 1X ONCE IV Last administered on 03/02 16:27; Start 03/02/17 at 17:00; Stop 03/02/17 at 17:29; Status DC Oxycodone HCl (Roxicodone) 5 mg PRN Q3HRS PRN PO PAIN; Start 03/02/17 at 17:30 Morphine Sulfate 2 mg PRN Q1HR PRN IV PAIN; Start 03/02/17 at 17:30 Fentanyl Citrate (Fentanyl 2ml Vial) 25 mcg PRN Q1HR PRN IV PAIN; Start at 17:30 Senna/Docusate Sodium (Senna Plus) 1 tab DAILY PO Last administered on 08:17; Start 03/03/17 at 09:00 Polyethylene Glycol (miraLAX PACKET) 17 gm PRN DAILY PRN PO CONSTIPATION Last administered on 03/05/17 08:50; Start 03/02/17 at 17:30 Clindamycin Phosphate 50 ml @ 100 mls/hr Q6H IV ; Start 03/02/17 at 22:30; Stop 03/03/17 at 10:59; Status Cancel Ondansetron HCl (Zofran) 4 mg PRN Q4HRS PRN IV NAUSEA/VOMITING Last administered on 03/08/17 08:27; Start 03/02/17 at 17:30 Aspirin (Ecotrin) 81 mg DAILYWBKFT PO ; Start 03/03/17 at 08:00; Stop 03/03/17 at 08:39; Status DC Magnesium Hydroxide (Milk Of Magnesia) 2,400 mg 1X PRN PRN PO CONSTIPATION; Start 03/03/17 at 06:00; Stop 03/04/17 at 05:59; Status DC Bisacodyl (Dulcolax Supp) 10 mg 1X PRN PRN ND CONSTIPATION; Start 03/03/17 at 16:00; Stop 03/04/17 at 16:00; Status DC Acetaminophen/ Hydrocodone Bitart (Lortab 7.5/325) 1 tab PRN Q4HRS PRN PO PAIN ; Start 03/02/17 at 17:30 Morphine Sulfate 4 mg PRN Q2HR PRN IV PAIN Last administered on 03/05/17 06:42 ; Start 03/02/17 at 17:30 Acetaminophen/ Hydrocodone Bitart (Lortab 7.5/325) 2 tab PRN Q4HRS PRN PO PAIN ; Start 03/02/17 at 17:30 Dextrose (Dextrose 50%-Water Syringe) 12.5 gm PRN Q15MIN PRN IV SEE COMMENTS; Start 03/02/17 at 17:30 Sevoflurane (Ultane) 60 ml STK-MED ONCE IH ; Start 03/02/17 at 17:32; Stop 03/02 at 17:33; Status DC Dexamethasone Sodium Phosphate (Decadron) 20 mg STK-MED ONCE .ROUTE ; Start at 17:32; Stop 03/02/17 at 17:33; Status DC Phenylephrine HCl 1 mg STK-MED ONCE IV ; Start 03/02/17 at 17:32; Stop 03/02/17 at 17:33; Status DC Vancomycin HCl 1 gm/Sodium Chloride 250 ml @ 250 mls/hr QTUTHSA IV Last administered on 03/03/17 18:42; Start 03/03/17 at 16:00; Stop 03/04/17 at 17:34 ; Status DC Vancomycin HCl 1 each 1X ONCE MC ; Start 03/06/17 at 05:00; Stop 03/06/17 at 05 :01; Status Cancel Lidocaine HCl (Xylocaine-Mpf 1% Vial) 0.5 ml 1X STAT ID Last administered on 08:20; Start 03/03/17 at 08:05; Stop 03/03/17 at 08:10; Status DC Sodium Chloride 1,000 ml @ 1,000 mls/hr Q1H PRN IV hypotension; Start 03/03/17 at 08:08; Stop 03/03/17 at 14:07; Status DC Diphenhydramine HCl (Benadryl) 25 mg 1X PRN PRN IV ITCHING; Start 03/03/17 at 08:15; Stop 03/04/17 at 08:14; Status DC Diphenhydramine HCl (Benadryl) 25 mg 1X PRN PRN IV ITCHING; Start 03/03/17 at 08:15; Stop 03/04/17 at 08:14; Status DC Sodium Chloride 1,000 ml @ 400 mls/hr Q2H30M PRN IV PATENCY; Start 03/03/17 at 08:08; Stop 03/03/17 at 20:07; Status DC Info (PHARMACY MONITORING -- do not chart) 1 each PRN DAILY PRN MC SEE COMMENTS ; Start 03/03/17 at 08:15; Status UNV Info (PHARMACY MONITORING -- do not chart) 1 each PRN DAILY PRN MC SEE COMMENTS ; Start 03/03/17 at 08:15; Status UNV Calcium Carbonate/ Glycine (Oscal) 2,000 mg TIDAC PO Last administered on 06:11; Start 03/03/17 at 11:30 Ciprofloxacin (Cipro) 500 mg DAILY PO Last administered on 03/09/17 08:17; Start 03/06/17 at 09:00 Lorazepam (Ativan) 2 mg 1X ONCE PO Last administered on 03/05/17 20:44; Start 03/05/17 at 20:30; Stop 03/05/17 at 20:31; Status DC Lidocaine HCl (Xylocaine-Mpf 1% Vial) 2 ml STK-MED ONCE .ROUTE ; Start 03/06/17 at 08:09; Stop 03/06/17 at 08:10; Status DC Sodium Chloride 1,000 ml @ 1,000 mls/hr Q1H PRN IV hypotension; Start 03/06/17 at 08:46; Stop 03/06/17 at 14:45; Status DC Albumin Human 200 ml @ 200 mls/hr 1X PRN PRN IV Hypotension; Start 03/06/17 at 09:00; Stop 03/06/17 at 19:00; Status DC Acetaminophen (Tylenol) 500 mg 1X PRN PRN PO MILD PAIN / TEMP; Start 03/06/17 at 09:00; Stop 03/06/17 at 19:00; Status DC Diphenhydramine HCl (Benadryl) 25 mg 1X PRN PRN IV ITCHING; Start 03/06/17 at 09:00; Stop 03/06/17 at 19:00; Status DC Sodium Chloride 1,000 ml @ 400 mls/hr Q2H30M PRN IV PATENCY; Start 03/06/17 at 08:46; Stop 03/06/17 at 20:45; Status DC Info (PHARMACY MONITORING -- do not chart) 1 each PRN DAILY PRN MC SEE COMMENTS ; Start 03/06/17 at 09:00; Stop 03/06/17 at 09:00; Status DC Info (PHARMACY MONITORING -- do not chart) 1 each PRN DAILY PRN MC SEE COMMENTS ; Start 03/06/17 at 09:00; Status Cancel Levetiracetam 500 mg/Sodium Chloride 100 ml @ 400 mls/hr 1X STAT IV Last administered on 03/06/17 14:40; Start 03/06/17 at 14:11; Stop 03/06/17 at 14:25 ; Status DC Levetiracetam 500 mg/Sodium Chloride 100 ml @ 400 mls/hr 1X ONCE IV Last administered on 03/06/17 19:19; Start 03/06/17 at 19:30; Stop 03/06/17 at 19:44 ; Status DC Levetiracetam (Keppra) 1,000 mg BID PO Last administered on 03/09/17 08:17; Start 03/07/17 at 21:00 Levetiracetam 1000 mg/Sodium Chloride 110 ml @ 440 mls/hr 1X ONCE IV Last administered on 03/08/17 09:16; Start 03/08/17 at 09:00; Stop 03/08/17 at 09:14 ; Status DC Sodium Chloride 1,000 ml @ 1,000 mls/hr Q1H PRN IV hypotension; Start 03/08/17 at 09:25; Stop 03/08/17 at 16:00; Status DC Sodium Chloride 1,000 ml @ 400 mls/hr Q2H30M PRN IV PATENCY; Start 03/08/17 at 09:25; Stop 03/08/17 at 16:00; Status DC Info (PHARMACY MONITORING -- do not chart) 1 each PRN DAILY PRN MC SEE COMMENTS ; Start 03/08/17 at 09:30; Status UNV Info (PHARMACY MONITORING -- do not chart) 1 each PRN DAILY PRN MC SEE COMMENTS ; Start 03/08/17 at 09:30; Status UNV Lidocaine HCl (Xylocaine-Mpf 1% Vial) 2 ml STK-MED ONCE .ROUTE ; Start 03/08/17 at 09:52; Stop 03/08/17 at 09:53; Status DC Lidocaine HCl (Xylocaine-Mpf 1% Vial) 2 ml STK-MED ONCE .ROUTE ; Start 03/08/17 at 10:00; Stop 03/09/17 at 07:59; Status DC Active Scripts Active Cipro (Ciprofloxacin Hcl) 250 Mg Tablet 500 Mg PO DAILY 7 Days Levetiracetam 500 Mg Tablet 500 Mg PO BID Morphine Sulfate Er (Morphine Sulfate) 30 Mg Tablet.er 30 Mg PO TID Lidoderm (Lidocaine) 700 Mg Adh..patch 1 Patch TD DAILY Ventolin Hfa Inhaler (Albuterol Sulfate) 18 Gm Hfa.aer.ad 2 Puff INH Q4HRS PRN Metoprolol Tartrate 50 Mg Tablet 50 Mg PO BID Synthroid (Levothyroxine Sodium) 175 Mcg Tablet 175 Mcg PO DAILY07 Isosorbide Mononitrate Er (Isosorbide Mononitrate) 30 Mg Tab.er.24h 30 Mg PO DAILY Reported Ketorolac Tromethamine 5 Ml Drops 1 Drop OS QID Maxidex (Dexamethasone) 5 Ml Drops.susp 1 Drop OS Q4HRS Ropinirole Hcl 0.25 Mg Tablet 0.25 Mg PO Oxycodone Hcl 5 Mg Capsule 5 Mg PO PRN Citalopram Hbr (Citalopram Hydrobromide) 20 Mg Tablet 1 Tab PO DAILY Trazodone Hcl 50 Mg Tablet 0.5-1 Tab PO QHS Risperidone 0.5 Mg Tablet 1 Tab PO QHS Bromsite (Bromfenac Sodium) 5 Ml Drops 5 Ml LEFTEYE DAILY Vigamox (Moxifloxacin Hcl) 3 Ml Drops 1 Drop LEFTEYE TID Prednisolone Acetate 5 Ml Drops.susp 1 Drop OS Q1HR Famotidine 20 Mg Tablet 20 Mg PO HS Coumadin (Warfarin Sodium) 5 Mg Tablet 1 Tab PO DAILY Nephro-Jimmy Tablet (Folic Acid/Vitamin B Comp W-C) 0.8 Mg Tablet 1 Tab PO DAILY Carafate (Sucralfate) 1 Gm Tablet 1 Tab PO BID Nitrostat (Nitroglycerin) 0.4 Mg Tab.subl 0.4 Mg SL PRN Q5MIN PRN Calcium Carbonate 500 Mg/5 Ml Oral.susp 2,000 Mg PO TID Aranesp Syringe (Darbepoetin Jace In Polysorbat) 100 Mcg/0.5 Ml Disp.syrin 100 Mcg SQ WEEKLY Voltaren (Diclofenac Sodium) 100 Gm Gel..gram. 1 Gm TP BID Clopidogrel (Clopidogrel Bisulfate) 75 Mg Tablet 75 Mg PO DAILY07 Renvela (Sevelamer Carbonate) 800 Mg Tablet Tab PO TID Vitamin D2 (Ergocalciferol (Vitamin D2)) 50,000 Unit Capsule 50,000 Unit PO WEEKLY Atorvastatin Calcium 80 Mg Tablet 80 Mg PO HS Vitals/I & O Vital Sign - Last 24 Hours 03/08/17 03/08/17 03/08/17 03/08/17 19:00 20:00 21:24 23:00 Temp 97.9 97.8 97.9 97.8 Pulse 82 82 69 Resp 18 18 B/P (MAP) 130/67 (88) 130/67 99/50 (66) Pulse Ox 93 95 O2 Delivery Room Air Room Air Room Air 03/09/17 03/09/17 03/09/17 03/09/17 03:00 07:00 08:00 08:16 Temp 97.7 97.4 97.7 97.4 Pulse 70 71 71 Resp 18 20 B/P (MAP) 124/58 (80) 128/68 (88) 128/68 Pulse Ox 97 97 O2 Delivery Room Air Room Air Room Air 03/09/17 08:17 Pulse 71 B/P (MAP) 128/68 Intake and Output 03/08/17 03/08/17 03/09/17 15:00 23:00 07:00 Intake Total 820 ml 400 ml Output Total 75 ml Balance 745 ml 400 ml MULU MIN MD Mar 09, 2017 09:48
--- NOTE | 2017-03-09 10:07 | PDOC ---
Subjective: Subjective: Feels good, wants to go home, questions about wound vac. Objective: Vital Signs: Vital Signs Date Time Temp Pulse Resp B/P (MAP) Pulse Ox O2 Delivery O2 Flow Rate FiO2 03/09/17 08:17 71 128/68 03/09/17 08:00 Room Air 03/09/17 07:00 97.4 20 97 97.4 Labs: Laboratory Tests Test 03/08/17 16:55 03/08/17 21:01 03/09/17 03:27 03/09/17 07:14 Glucose (Fingerstick) 141 mg/dL 202 mg/dL 113 mg/dL Prothrombin Time 18.8 SEC Prothromb Time International Ratio 1.7 Sodium Level 138 mmol/L Potassium Level 4.0 mmol/L Chloride Level 100 mmol/L Carbon Dioxide Level 33 mmol/L Anion Gap 5 Blood Urea Nitrogen 34 mg/dL Creatinine 6.3 mg/dL Estimated GFR (Cockcroft-Gault) 11.4 Glucose Level 120 mg/dL Calcium Level 8.0 mg/dL Phosphorus Level 4.0 mg/dL Albumin 2.6 g/dL PE: GEN: NAD, sitting on edge of bed LUNGS: clear HEART: S1S2 ABD: non-tender NEURO/PSYCH: A & O 3 A/P: Seizure Osteomyelitis s/p transmetatarsal amputation Right-sided abd pain - resolved Anemia - stable ESRD on HD -- Stable GI-snell, DC per primary. CARINE OTTO Mar 09, 2017 10:07
[2017-03-09 11:00] VITALS: BP 130/79
--- NOTE | 2017-03-09 11:05 | PDOC ---
PROGRESS NOTES Subjective Subjective No reported problems. Wants to go home. Objective Vital Signs Vital Signs Date Time Temp Pulse Resp B/P (MAP) Pulse Ox O2 Delivery O2 Flow Rate FiO2 03/09/17 08:17 71 128/68 03/09/17 08:00 Room Air 03/09/17 07:00 97.4 20 97 97.4 03/07/17 03:00 2.0 Physical Exam Wound VAC still productive. Will switch to Prevena for home use. No sign of ongoing infection. Labs Laboratory Tests Test 03/07/17 11:06 03/07/17 16:29 03/07/17 20:24 03/08/17 03:55 Glucose (Fingerstick) 197 mg/dL (70-99) 147 mg/dL (70-99) 182 mg/dL (70-99) Prothrombin Time 17.8 SEC (11.7-14.0) Prothromb Time International Ratio 1.6 (0.8-1.1) Sodium Level 136 mmol/L (136-145) Potassium Level 4.0 mmol/L (3.5-5.1) Chloride Level 97 mmol/L (98-107) Carbon Dioxide Level 28 mmol/L (21-32) Anion Gap 11 (6-14) Blood Urea Nitrogen 55 mg/dL (8-26) Creatinine 9.2 mg/dL (0.7-1.3) Estimated GFR (Cockcroft-Gault) 7.4 Glucose Level 109 mg/dL (70-99) Calcium Level 7.6 mg/dL (8.5-10.1) Phosphorus Level 7.5 mg/dL (2.6-4.7) Magnesium Level 2.4 mg/dL (1.8-2.4) Albumin 2.7 g/dL (3.4-5.0) Test 03/08/17 07:19 03/08/17 16:55 03/08/17 21:01 03/09/17 03:27 Glucose (Fingerstick) 112 mg/dL (70-99) 141 mg/dL (70-99) 202 mg/dL (70-99) Prothrombin Time 18.8 SEC (11.7-14.0) Prothromb Time International Ratio 1.7 (0.8-1.1) Sodium Level 138 mmol/L (136-145) Potassium Level 4.0 mmol/L (3.5-5.1) Chloride Level 100 mmol/L (98-107) Carbon Dioxide Level 33 mmol/L (21-32) Anion Gap 5 (6-14) Blood Urea Nitrogen 34 mg/dL (8-26) Creatinine 6.3 mg/dL (0.7-1.3) Estimated GFR (Cockcroft-Gault) 11.4 Glucose Level 120 mg/dL (70-99) Calcium Level 8.0 mg/dL (8.5-10.1) Phosphorus Level 4.0 mg/dL (2.6-4.7) Albumin 2.6 g/dL (3.4-5.0) Test 03/09/17 07:14 Glucose (Fingerstick) 113 mg/dL (70-99) Laboratory Tests Test 03/08/17 16:55 03/08/17 21:01 03/09/17 03:27 03/09/17 07:14 Glucose (Fingerstick) 141 mg/dL (70-99) 202 mg/dL (70-99) 113 mg/dL (70-99) Prothrombin Time 18.8 SEC (11.7-14.0) Prothromb Time International Ratio 1.7 (0.8-1.1) Sodium Level 138 mmol/L (136-145) Potassium Level 4.0 mmol/L (3.5-5.1) Chloride Level 100 mmol/L (98-107) Carbon Dioxide Level 33 mmol/L (21-32) Anion Gap 5 (6-14) Blood Urea Nitrogen 34 mg/dL (8-26) Creatinine 6.3 mg/dL (0.7-1.3) Estimated GFR (Cockcroft-Gault) 11.4 Glucose Level 120 mg/dL (70-99) Calcium Level 8.0 mg/dL (8.5-10.1) Phosphorus Level 4.0 mg/dL (2.6-4.7) Albumin 2.6 g/dL (3.4-5.0) Assessment Assessment s/p TMA Problems: Plan Plan of Care remain NWB. Prevena for 7 days or until 2 tanks full, then switch to dressing changes. Office f/u March 19. MARSHA TENORIO MD Mar 09, 2017 11:05
[2017-03-09 15:00] VITALS: BP 107/59
--- NOTE | 2017-03-13 08:36 | PATHOLOGY ---
PATHOLOGY REPORT * * * * * * * * FINAL DIAGNOSIS: Left foot transmetatarsal amputation: - Status post previous amputation of first, second, and third toes. - Focal ulceration of plantar aspect of foot with underlying mild acute cellulitis and with hyperkeratosis and pseudoepitheliomatous hyperplasia of plantar skin bordering ulcer. - Edema and focal slight acute inflammation of marrow of distal first metatarsal. (JPM:db; 03/12/2017) REPORT ELECTRONICALLY SIGNED BY: Meng Gann M.D. DATE/TIME: 03/13/2017 08:35 * * * * * * * * GROSS PATHOLOGY: The specimen is received in formalin labeled "Aquiles Wilkes transmetatarsal left foot". Received is a left forefoot amputation measuring 13.9 x 11.6 x 5.2 cm in greatest dimensions. Toes 1 through 3 are absent. The bone margins are blunt in appearance, consistent with transection. The nails on toes 4 and 5 are present displaying a pale richards to light richards and thickened appearance. On the plantar aspect, there is a well-circumscribed, focally ulcerated, partially necrotic and rivera-richards to light brown lesion measuring 3.0 x 2.8 cm, 0.5 cm from the closest skin margin. The bone margins are inked black. The specimen is submitted representatively as follows: A1 admissions representative sections of lesion with underlying soft tissue A2-A3 full-thickness longitudinal cross-section through first metatarsal, submitted from proximal to distal aspects A4 longitudinal cross-section of bone margin of toe 2. (CAA; 03/07/2017) INITIAL CPT CODE(S): 35581, 34911 Professional services performed by [facility] at [address] [address] Technical services performed by [facility] at [address] [place] [address] [address] [address]. SPECIMEN(S) RECEIVED: A.Transmetatarsal left foot CLINICAL HISTORY: Osteomyelitis, open wound left foot PATIENT: AQUILES WILKES /AGE: 12 1965 (Age: 51) PATIENT #: [id number] ALT CASE #: SPECIMEN COLLECTION DATE: 03/02/2017 SPECIMEN RECEIVED DATE: 03/05/2017 [facility] - [id number] [address] - PHONE: [phone] * * * END OF REPORT * * *
== END 2017-03-09 15:00 | disposition home health service (06) | DRG 617 ==
LOC: ER 17:21 → 4 NORTH 19:00
PROVIDERS: ADMIT Internal Medicine; ATTEND Internal Medicine
PROC: 0Y6N0ZB Detachment at Left Foot, Partial 2nd Ray, Open Approach (ICD-10-PCS; 2017-03-02)
PROC: 0Y6N0ZC Detachment at Left Foot, Partial 3rd Ray, Open Approach (ICD-10-PCS; 2017-03-02)
PROC: 0Y6N0ZD Detachment at Left Foot, Partial 4th Ray, Open Approach (ICD-10-PCS; 2017-03-02)
PROC: 0Y6N0ZF Detachment at Left Foot, Partial 5th Ray, Open Approach (ICD-10-PCS; 2017-03-02)
PROC: 0Y6N0Z9 Detachment at Left Foot, Partial 1st Ray, Open Approach (ICD-10-PCS; principal; 2017-03-02 16:45)
DX: E10.69 Type 1 diabetes mellitus with other specified complication (principal); M86.8X7 Other osteomyelitis, ankle and foot; I13.2 Hypertensive heart and chronic kidney disease with heart failure and with stage 5 chronic kidney disease, or end stage renal disease; L03.116 Cellulitis of left lower limb; N18.6 End stage renal disease; E10.621 Type 1 diabetes mellitus with foot ulcer; D63.8 Anemia in other chronic diseases classified elsewhere; E03.9 Hypothyroidism, unspecified; E10.22 Type 1 diabetes mellitus with diabetic chronic kidney disease; E10.42 Type 1 diabetes mellitus with diabetic polyneuropathy; E10.51 Type 1 diabetes mellitus with diabetic peripheral angiopathy without gangrene; E10.65 Type 1 diabetes mellitus with hyperglycemia; E66.9 Obesity, unspecified; E78.00 Pure hypercholesterolemia, unspecified; E78.5 Hyperlipidemia, unspecified; F03.90 Unspecified dementia, unspecified severity, without behavioral disturbance, psychotic disturbance, mood disturbance, and anxiety; G40.909 Epilepsy, unspecified, not intractable, without status epilepticus; G47.30 Sleep apnea, unspecified; G89.29 Other chronic pain; H40.9 Unspecified glaucoma; I25.10 Atherosclerotic heart disease of native coronary artery without angina pectoris; I48.0 Paroxysmal atrial fibrillation; I50.9 Heart failure, unspecified; J44.9 Chronic obstructive pulmonary disease, unspecified; K21.9 Gastro-esophageal reflux disease without esophagitis; Z96.652 Presence of left artificial knee joint; K64.8 Other hemorrhoids; K76.0 Fatty (change of) liver, not elsewhere classified; L97.529 Non-pressure chronic ulcer of other part of left foot with unspecified severity; S91.301A Unspecified open wound, right foot, initial encounter; Z79.01 Long term (current) use of anticoagulants; Z68.38 Body mass index [BMI] 38.0-38.9, adult; Z88.0 Allergy status to penicillin; Z88.8 Allergy status to other drugs, medicaments and biological substances; Z91.013 Allergy to seafood; Z79.4 Long term (current) use of insulin; Z79.899 Other long term (current) drug therapy; Z82.49 Family history of ischemic heart disease and other diseases of the circulatory system; Z86.718 Personal history of other venous thrombosis and embolism; Z86.73 Personal history of transient ischemic attack (TIA), and cerebral infarction without residual deficits; Z89.429 Acquired absence of other toe(s), unspecified side; Z91.041 Radiographic dye allergy status; Z95.5 Presence of coronary angioplasty implant and graft; Z99.2 Dependence on renal dialysis; Z98.49 Cataract extraction status, unspecified eye; I25.2 Old myocardial infarction
CPT/HCPCS: 36415; 70450; 73630; 73721; 74176; 76700; 80048; 80053; 80069; 80177; 80202; 82962; 83735; 85027; 85610; 85651; 86140; 87040; 87071; 87075; 87186; 87205; 87641; 93005; 94250; 94640; 94760; 95816; J0692; J0881; J1100; J1815; J1953; J2001; J2270; J2370; J2405; J2704; J3010; J3370; J3490; J7040; J7050; J7613; S0028; 97116; 97530; 97535; 99285-25; J7030

== ENCOUNTER 2017-03-20 17:43 | Emergency (ER) | payer MEDICARE, OTHER ==
[~2017-03-20] VITALS: Ht 198.1 cm; Wt 148.8 kg
[~2017-03-20 17:43] MED LIST changes: +CIPR250T30 PO; -OXYC5TAB PO; +OXYC5TAB95 PO
--- NOTE | 2017-03-20 18:30 | PHYS DOC ---
Past Medical History Past Medical History: A-Fib, Anxiety, Asthma, CAD, CHF, CVA, Diabetes-Type II, GERD, High Cholesterol, PA, Renal Disease, Renal Failure, TIA, Vascular Disease Additional Past Medical Histor: morbid obesity,LEFT ARM FISTULA PLACED ON MAR 30 Past Surgical History: Other Additional Past Surgical Histo: HD SHUNT, TOE AMPUTATION,RIGHT ARM SX RIGHT ARM FX, SCROTAL SX, HEART STENT Alcohol Use: None Drug Use: None Adult General Chief Complaint Chief Complaint: WOUND CHECK HPI HPI Patient is a 51 year old male who presents with complaint of bleeding from his surgical site. Patient had multiple toe amputation done [address] Jamison of orthopedic surgery. The patient states that he started having bleeding from the surgical wound site over the past 2-3 days. Patient denies any worsening pain at this time. Patient has not had any worsening pain. The patient is currently on Coumadin therapy and also attends dialysis. Patient has had to change dressings on the foot 3-4 times a day over the last few days due to worsening intermittent bleeding. Patient states that he has an appointment in 2 days to see his orthopedic surgeon but due to worsening bleeding today the patient came to the emergency department to have his wound checked. Review of Systems Review of Systems Constitutional: Denies fever or chills [] Eyes: Denies change in visual acuity, redness, or eye pain [] HENT: Denies nasal congestion or sore throat [] Respiratory: Denies cough or shortness of breath [] Cardiovascular: Denies chest pain or edema [] GI: Denies abdominal pain, nausea, vomiting, bloody stools or diarrhea [] : Denies dysuria or hematuria [] Musculoskeletal: Bleeding from surgical wound site on left foot [] Integument: Denies rash or skin lesions [] Neurologic: Denies headache, focal weakness or sensory changes [] Allergies Allergies Allergies Coded Allergies Type Severity Reaction Last Updated Verified iodine Allergy Severe THROAT SWELLING 03/29/16 Yes lisinopril Allergy Severe 03/16/16 Yes Fish Containing Products Allergy Intermediate 03/16/16 Yes Penicillins Allergy Intermediate SEE COMMENT 04/13/16 Yes piperacillin Allergy Intermediate Hives 03/16/16 Yes tazobactam Allergy Intermediate 03/16/16 Yes Physical Exam Physical Exam Constitutional: Alert, afebrile, no acute distress. [] HENT: Normocephalic, atraumatic, bilateral external ears normal, oropharynx moist, no oral exudates, nose normal. [] Eyes: PERRLA, EOMI, conjunctiva normal, no discharge. [] Neck: Normal range of motion, no tenderness, supple, no stridor. [] Cardiovascular:Heart rate regular rhythm, no murmur [] Lungs & Thorax: Bilateral breath sounds clear to auscultation [] Abdomen: Bowel sounds normal, soft, no tenderness, no masses, no pulsatile masses. [] Skin: Warm, dry, no erythema, no rash. [] Back: No tenderness, no CVA tenderness. [] Extremities: Partial left foot amputation, surgical wound with mild dehiscence along lateral aspect and medial anterior aspect, no active bleeding, clot formation in the lateral dehiscence site. [] Neurologic: Alert and oriented X 3, normal motor function, normal sensory function, no focal deficits noted. [] Current Patient Data Vital Signs Vital Signs Date Time Temp Pulse Resp B/P (MAP) Pulse Ox O2 Delivery O2 Flow Rate FiO2 03/20/17 17:45 98.8 100 20 117/68 (84) 100 Room Air 98.8 Lab Values Laboratory Tests Test 03/20/17 19:35 Prothrombin Time 15.1 SEC (11.7-14.0) H Prothrombin Time INR 1.3 (0.8-1.1) H EKG EKG Not performed [] Radiology/Procedures Radiology/Procedures Not performed [] Course & Med Decision Making Course & Med Decision Making Pertinent Labs and Imaging studies reviewed. (See chart for details) The patient's wounds are not actively bleeding at this time. I contacted Carlos, LOIS for Dr. Sampson, and spoke with him regarding the patient's case. He spoke with Dr. Sampson and called me back stating that the patient could follow-up in the office tomorrow morning after 9:[address] Jamison's LOIS to have the wound reevaluated. A clean pressure dressing was applied to the wound and the patient was provided with additional materials for wound dressing. The patient's INR appears subtherapeutic at this time at 1.3 though this also would decrease the transfer severe bleeding from the wound. The patient's hemoglobin levels were also normal. Advised return emergency department for any worsening symptoms. Patient voiced understanding and in agreement with treatment plan. Dragon Disclaimer Dragon Disclaimer This electronic medical record was generated, in whole or in part, using a voice recognition dictation system. Departure Departure Impression: Primary Impression: Visit for wound check Additional Impression: Wound dehiscence Disposition: HOME, SELF-CARE Condition: STABLE Referrals: UNKNOWN PCP NAME (PCP) MARSHA JAMISON MD Patient Instructions: Wound Dehiscence Additional Instructions: Follow-up and Dr. Jamison's office tomorrow any time after 9:00 AM to have your wound rechecked. Return emergency department for any worsening symptoms. Problem Qualifiers FLORENCE CURTIS MD Mar 20, 2017 18:30
[2017-03-20 19:55] LABS: INR 1.3 (0.8-1.1); PROTHROMBIN TIME PATIENT 15.1 SEC (11.7-14.0)
[2017-03-20 20:24] VITALS: BP 110/71
[2017-03-22 08:46] LABS: POTASSIUM ISTAT 4.3 mmol/L (3.5-5.0)
== END 2017-03-20 20:25 | disposition home or self-care (01) ==
LOC: ER 17:43
DX: T81.33XA Disruption of traumatic injury wound repair, initial encounter (principal); I13.0 Hypertensive heart and chronic kidney disease with heart failure and stage 1 through stage 4 chronic kidney disease, or unspecified chronic kidney disease; E11.22 Type 2 diabetes mellitus with diabetic chronic kidney disease; N18.9 Chronic kidney disease, unspecified; E78.00 Pure hypercholesterolemia, unspecified; J45.909 Unspecified asthma, uncomplicated; I25.10 Atherosclerotic heart disease of native coronary artery without angina pectoris; I48.91 Unspecified atrial fibrillation; K21.9 Gastro-esophageal reflux disease without esophagitis; Z86.73 Personal history of transient ischemic attack (TIA), and cerebral infarction without residual deficits; Z95.5 Presence of coronary angioplasty implant and graft; E66.01 Morbid (severe) obesity due to excess calories; Z68.37 Body mass index [BMI] 37.0-37.9, adult; Z99.2 Dependence on renal dialysis; Z79.01 Long term (current) use of anticoagulants; Z88.8 Allergy status to other drugs, medicaments and biological substances; Z88.1 Allergy status to other antibiotic agents; Z91.041 Radiographic dye allergy status; Z88.0 Allergy status to penicillin; Z91.013 Allergy to seafood; Z98.890 Other specified postprocedural states; Y83.5 Amputation of limb(s) as the cause of abnormal reaction of the patient, or of later complication, without mention of misadventure at the time of the procedure; Y92.89 Other specified places as the place of occurrence of the external cause
CPT/HCPCS: 36415; 80047; 85610; 99283

== ENCOUNTER 2017-03-27 09:46 | Inpatient (IN) | payer MEDICARE, OTHER ==
[~2017-03-27] VITALS: Ht 198.1 cm; Wt 128.5 kg
[2017-03-27] MEDS ORDERED: MORPHINE SULFATE 4 MG/ML DISP.SYRIN. IV ONE (10:00)
--- NOTE | 2017-03-27 10:05 | PHYS DOC ---
Past Medical History Past Medical History: A-Fib, Anxiety, Asthma, CAD, CHF, CVA, Diabetes-Type II, GERD, High Cholesterol, CA, Renal Disease, Renal Failure, TIA, Vascular Disease Additional Past Medical Histor: morbid obesity,LEFT ARM FISTULA PLACED ON MAR 30 Past Surgical History: Other Additional Past Surgical Histo: HD SHUNT, TOE AMPUTATION,RIGHT ARM SX RIGHT ARM FX, SCROTAL SX, HEART STENT Alcohol Use: None Drug Use: None Adult General Chief Complaint Chief Complaint: FEVER HPI HPI Patient is a 51 year old male who presents with left foot pain and reported fevers. Patient went to dialysis this morning and told the design engineering technician he had a fever overnight and at his foot continues to bleed. Therefore they wouldn't dialyze the patient and sent him to our hospital for evaluation. Patient reported a fever of 105 yesterday and 101 overnight, he took no antipyretics and arrives afebrile. He states he has ongoing pain of his left foot, continues to ooze. The wound dehisced shortly after surgery, occurred approximately 3 weeks ago[address] Surgeon was Dr. Fox, home service director is Dr. White, PCP is Dr. Plasencia in [place]. Review of Systems Review of Systems Constitutional: Reports fever [] Eyes: Denies change in visual acuity, redness, or eye pain [] HENT: Denies nasal congestion or sore throat [] Respiratory: rePorts cough Cardiovascular: Denies chest pain GI: Denies abdominal pain, nausea, vomiting, bloody stools or diarrhea [] : Denies dysuria or hematuria [] Musculoskeletal: Per history of present illness Integument: Denies rash or skin lesions [] Neurologic: Denies headache, focal weakness or sensory changes [] Current Medications Current Medications Current Medications Medications (Trade) Dose Ordered Sig/[place] Start Time Stop Time Status Last Admin Dose Admin Morphine Sulfate 4 mg 1X ONCE 03/27/17 10:00 03/27/17 10:05 DC 03/27/17 10:11 4 MG Allergies Allergies Allergies Coded Allergies Type Severity Reaction Last Updated Verified iodine Allergy Severe THROAT SWELLING 03/29/16 Yes lisinopril Allergy Severe 03/16/16 Yes Fish Containing Products Allergy Intermediate 03/16/16 Yes Penicillins Allergy Intermediate SEE COMMENT 04/13/16 Yes piperacillin Allergy Intermediate Hives 03/16/16 Yes tazobactam Allergy Intermediate 03/16/16 Yes Physical Exam Physical Exam Constitutional: Well developed, well nourished, no acute distress, non-toxic appearance. Obese, afebrile HENT: Normocephalic, atraumatic, bilateral external ears normal, oropharynx moist, no oral exudates, nose normal. [] Eyes: PERRLA, EOMI, conjunctiva normal, no discharge. [] Neck: Normal range of motion, no tenderness, supple, no stridor. [] Cardiovascular:Heart rate regular with regular rhythm Lungs & Thorax: Bilateral breath sounds clear to auscultation, no wheeze or crackles Abdomen: Bowel sounds normal, soft, no tenderness, no masses, no pulsatile masses. [] Skin: Warm, dry, no erythema, no rash. [] Back: No tenderness, no CVA tenderness. [] Extremities: Left foot has dehisced wound without drainage, no bleeding, mild increased warmth on the dorsal aspect of the foot, tenderness to palpation diffusely Neurologic: Alert and oriented X 3, normal motor function, normal sensory function, no focal deficits noted. [] Psychologic: Affect normal, judgement normal, mood normal. [] Current Patient Data Vital Signs Vital Signs Date Time Temp Pulse Resp B/P (MAP) Pulse Ox O2 Delivery O2 Flow Rate FiO2 03/27/17 10:50 94 21 162/85 (110) 95 03/27/17 10:20 Room Air 03/27/17 09:50 99.4 99.4 Lab Values Laboratory Tests Test 03/27/17 10:19 White Blood Count 10.4 x10^3/uL (4.0-11.0) Red Blood Count 3.36 x10^6/uL (4.30-5.70) L Hemoglobin 10.3 g/dL (13.0-17.5) L Hematocrit 31.2 % (39.0-53.0) L Mean Corpuscular Volume 93 fL (79-100) Mean Corpuscular Hemoglobin 31 pg (25-35) Mean Corpuscular Hemoglobin Concent 33 g/dL (31-37) Red Cell Distribution Width 16.0 % (11.5-14.5) H Platelet Count 162 x10^3/uL (140-400) Neutrophils (%) (Auto) 79 % (31-73) H Lymphocytes (%) (Auto) 9 % (24-48) L Monocytes (%) (Auto) 10 % (0-9) H Eosinophils (%) (Auto) 1 % (0-3) Basophils (%) (Auto) 1 % (0-3) Neutrophils # (Auto) 8.2 x10^3uL (1.8-7.7) H Lymphocytes # (Auto) 0.9 x10^3/uL (1.0-4.8) L Monocytes # (Auto) 1.1 x10^3/uL (0.0-1.1) Eosinophils # (Auto) 0.1 x10^3/uL (0.0-0.7) Basophils # (Auto) 0.1 x10^3/uL (0.0-0.2) Prothrombin Time 14.3 SEC (11.7-14.0) H Prothrombin Time INR 1.2 (0.8-1.1) H Sodium Level 137 mmol/L (136-145) Potassium Level 4.0 mmol/L (3.5-5.1) Chloride Level 100 mmol/L (98-107) Carbon Dioxide Level 25 mmol/L (21-32) Anion Gap 12 (6-14) Blood Urea Nitrogen 64 mg/dL (8-26) H Creatinine 4.6 mg/dL (0.7-1.3) H Estimated GFR (Cockcroft-Gault) 16.4 BUN/Creatinine Ratio 14 (6-20) Glucose Level 134 mg/dL (70-99) H Lactic Acid Level 0.9 mmol/L (0.4-2.0) Calcium Level 8.8 mg/dL (8.5-10.1) Total Bilirubin 1.1 mg/dL (0.2-1.0) H Aspartate Amino Transferase (AST) 17 U/L (15-37) Alanine Aminotransferase (ALT) 16 U/L (16-63) Alkaline Phosphatase 86 U/L (46-116) C-Reactive Protein, Quantitative 62.5 mg/L (0-3.3) H Total Protein 7.4 g/dL (6.4-8.2) Albumin 2.9 g/dL (3.4-5.0) L Albumin/Globulin Ratio 0.6 (1.0-1.7) L Laboratory Tests 03/27/17 10:19 Laboratory Tests 03/27/17 10:19 EKG EKG [] Radiology/Procedures Radiology/Procedures Chest x-ray: Limited evaluation of the left costophrenic angle as it is excluded on this radiograph. Otherwise, no acute cardiopulmonary process. X-ray: []Impression: 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 There is soft tissue edema without subcutaneous gas or extensive osseous erosion. Course & Med Decision Making Course & Med Decision Making Pertinent Labs and Imaging studies reviewed. (See chart for details) Patient was given IV morphine, x-ray of his chest and foot ordered while lab work obtained. No significant abnormalities on lab work, I spoke with Dr. White who recommends the patient be admitted for ongoing monitoring for return if fevers. No antibodies indicated at this time. I spoke with , who accepted this pt for admission. Dragon Disclaimer Dragon Disclaimer This electronic medical record was generated, in whole or in part, using a voice recognition dictation system. Departure Departure Impression: Primary Impression: Fever Additional Impression: End stage renal disease Disposition: ADMITTED INPATIENT Condition: STABLE Referrals: UNKNOWN PCP NAME (PCP) Problem Qualifiers JEANNIE CARRASCO MD Mar 27, 2017 10:05
--- NOTE | 2017-03-27 10:28 | RAD ---
Chest radiograph 03/27/2017 at 1006 hours Indication: Postop left total" with fever and cough. Comparison: Chest radiograph 11/16/2016. Technique: Single frontal portable view of the chest is provided. Findings: Cardiomediastinal silhouette is similar in appearance. Left costophrenic angle is excluded on this radiograph. No definite pleural effusions, pulmonary vascular congestion or pneumothorax. The lungs are clear. Osseous structures are normal. Impression: Limited evaluation of the left costophrenic angle as it is excluded on this radiograph. Otherwise, no acute cardiopulmonary process.
[2017-03-27 10:32] LABS: BASO # 0.1 x10^3/uL (0.0-0.2); BASO % 1 % (0-3); EOS % 1 % (0-3); HEMATOCRIT 31.2 % (39.0-53.0); HEMOGLOBIN 10.3 g/dL (13.0-17.5); LYMPH # 0.9 x10^3/uL (1.0-4.8); LYMPH % 9 % (24-48); MEAN CORPUSCULAR HEMOGLOBIN 31 pg (25-35); MEAN CORPUSCULAR HGB CONC 33 g/dL (31-37); MEAN CORPUSCULAR VOLUME 93 fL (79-100); MONO % 10 % (0-9); NEUT % 79 % (31-73); PLATELET COUNT 162 x10^3/uL (140-400); RED BLOOD COUNT 3.36 x10^6/uL (4.30-5.70); WHITE BLOOD COUNT 10.4 x10^3/uL (4.0-11.0)
--- NOTE | 2017-03-27 10:33 | RAD ---
Left foot radiograph 03/27/2017 at 1006 hours Indication: Left toes amputated 3 weeks ago. Left foot pain at incision site. Comparison: Left foot radiograph 02/28/2017 Technique: 3 views of the left foot are provided. Findings: Indication of the first through fifth digits noted at the base of the metatarsals. There is soft tissue edema with a soft tissue defect at the anterior plantar aspect of the wound. There is no soft tissue gas. No osseous erosion is identified. Irregularity of the fourth metatarsal is likely postsurgical. Impression: 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 There is soft tissue edema without subcutaneous gas or extensive osseous erosion.
[2017-03-27 10:59] LABS: CALCIUM 8.8 mg/dL (8.5-10.1); CREATININE 4.6 mg/dL (0.7-1.3); GFR 16.4
[2017-03-27 11:04] LABS: ALBUMIN 2.9 g/dL (3.4-5.0); ALBUMIN/GLOBULIN RATIO 0.6 (1.0-1.7); TOTAL BILIRUBIN 1.1 mg/dL (0.2-1.0); TOTAL PROTEIN 7.4 g/dL (6.4-8.2)
[2017-03-27 11:07] LABS: INR 1.2 (0.8-1.1); PROTHROMBIN TIME PATIENT 14.3 SEC (11.7-14.0)
[2017-03-27 11:13] LABS: C-REACTIVE PROTEIN 62.5 mg/L (0-3.3)
[2017-03-27 12:00] VITALS: BP 163/83
--- NOTE | 2017-03-27 12:28 | ACF ---
Admit Criteria Forms Admit Criteria Forms Admit Criteria Forms FEVER Clinical Indications for Inpatient Care (Place 'X' for any and all applicable criteria): Ongoing inpatient care may be indicated for fever with ANY ONE of the following[ D] (5)(27)(28)(29)(30)(31): [ ]I. Bacteremia [ ]II. Evidence of significant systemic illness as indicated by ANY ONE of the following: [ ]a) Persistently high temperatures greater than 103.1 degrees F ( 39.5 degrees C) (oral) [ ]b) New-onset hypoxia [ ]c) Hemodynamic instability [ ]d) Mental status changes [ ]e) Decreased urine output due to developing renal insufficiency [ ]f) New focal neurologic deficit (eg, stroke) [ ]g) Seizures [ ]h) Rigors [ ]i) Dehydration or hypovolemia [ ]j) Inadequate oral intake [ ]III. Patient in the immediate postoperative period with ANY ONE of the following (E)(23)(24): [ ]a) Evidence of specific localizing infection requiring ongoing inpatient evaluation or treatment (eg,abscess, severe pneumonia, wound infection ) [ ]b) Known or suspected cause of fever requiring ongoing inpatient evaluation or treatment (eg, DVT) [ ]c) Evidence of malignant hyperthermia (eg, unexplained tachycardia and muscle rigidity after depolarizing muscular blocking agent or inhaled anesthetic agent) [X]IV. Suspected cause requiring acute care (eg, endocarditis, meningitis) [ ]V. High suspicion of bacteremia as indicated by severe constitutional symptoms in patient at high risk as indicated by ANY ONE of the following: [ ]a) Immunocompromised state [D](22) [ ]b) Age <3 years or >65 years [ ]c) Severe comorbidities (eg, poorly controlled diabetes, severe COPD) [ ]. High suspicion for fungal infection as indicated by ANY ONE of the following (22)(25): [ ]a) Febrile neutropenia (WBC <500/mm3 (0.5 X 109/L)) for >4 days despite broad spectrum antibiotics [ ]b) Imaging findings suggestive of fungal infection [ ]c) Immunocompromised state [ ]d) Immunocompromised patient colonized with Aspergillus species [ ]VII. Evidence of infection of medical devices such as implanted catheters or exposed hardware [ ]VIII. Suspected neuroleptic malignant syndrome as evidenced by ALL of the following (15): [ ]a) Recent use of neuroleptic medication (eg, haloperidol, prochlorperazine, metoclopramide) [ ]b) New-onset muscle rigidity Extended stay beyond goal length of stay for primary condition may be needed until ALL of the following are present(16)(17)(18)(19)(20)(21): [ ]a) Temperature status acceptable as indicated by ANY ONE of the following: [ ]i) Temp <38.1C (100.5 F) (oral) [ ]ii) Temp as expected for disease process and care performable at next level of care [ ]b) Hemodynamic stability [ ]c) Cultures negative or infection identified and under adequate treatment [ ]d) Behavior or mental status abnormalities absent or manageable at lower level of care (Also use Mental Status Change Criteria Form) for further information. [ ]e) Medical comorbidities absent or manageable at a lower level of care The original [employer] content created by [employer] has been revised. The portions of the content which have been revised are identified through the use of italic text or in bold, and [facility] has neither reviewed nor approved the modified material. All other unmodified content is copyright [facility]. Please see references footnoted in the original [facility] edition 2016 FREDDIE TREVIÑO Mar 27, 2017 12:28
[2017-03-27 12:58] VITALS: BP 163/83
[2017-03-27] MEDS: MORPHINE SULFATE 4 MG/ML DISP.SYRIN. IV PRN ×2 (13:46→17:59)
[2017-03-27] MEDS ORDERED: VENTOLIN HFA18 GM INH (13:50)
[2017-03-27] MEDS ORDERED: ALPR0.254 PO (13:54)
[2017-03-27] MEDS ORDERED: ZOLP5TAB PO (14:59)
[2017-03-27] MEDS ORDERED: CALC500T PO (15:04)
[2017-03-27 15:14] VITALS: BP 137/93
[2017-03-27] MEDS ORDERED: ONDANSETRON PF 4 MG/2 ML VIAL. IV PRN (15:15)
[2017-03-27] MEDS ORDERED: MECL12.52 PO (15:16)
[2017-03-27] MEDS ORDERED: SODI650T PO (15:18)
--- NOTE | 2017-03-27 15:18 | PDOC1 ---
History and Physical Date of Admission Date of Admission DATE: 03/27/17 TIME: 15:05 Identification/Chief Complaint Chief Complaint fevers, foot pain Problems: Source Source: Caregiver, Chart review, Patient History of Present Illness History of Present Illness 51 y.o AA male who was last here a week or 2 ago after having amputation by our ortho service, has HH arranged and they come out once a week, otherwise or he himself changes it. Fevers at home 100.5, fevers at HD today so was rushed to ER and did not get any HD today. 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 There is soft tissue edema without subcutaneous gas or extensive osseous erosion. I did inspect the foot, sutures have gaped and there is clinically swelling around the amputation site. I last saw him February for the ff dx: Date of Admission: Feb 28, 2017 Date of Discharge: Mar 08, 2017 Admitting Diagnosis Comment: Assessment and plan Left foot infected wound with osteomyelitis. Enterobacter. 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 History of chronic back pain Paroxysmal atrial fibrillation Obesity GERD Hyperglycemia Past Medical History Cardiovascular: AFIB, CAD, CHF, HTN, NC, Hyperlipidemia, Other Pulmonary: Asthma, Other CENTRAL NERVOUS SYSTEM: CVA, Dementia, Periperal neuropathy, Seizure, TIA, Vertigo GI: Diverticulosis, Hemorrhoids Heme/Onc: Anemia NOS Hepatobiliary: No pertinent hx Psych: Anxiety, Depression Musculoskeletal: Osteoarthritis Infectious disease: No pertinent hx Renal/: Chronic renal insuff Endocrine: Diabetes, Hypothyroidism Past Surgical History Past Surgical History: Cataract Removal, Total knee replacement, Other Family History Family History: Hypertension Social History Smoke: No ALCOHOL: none Drugs: None Current Problem List Problem List Problems Medical Problems: (1) End stage renal disease Status: Acute (2) Fever Status: Acute Problems: Current Medications Current Medications Current Medications Morphine Sulfate 4 mg 1X ONCE IV Last administered on 03/27/17t 10:11; Start 03/27/17 at 10:00; Stop 03/27/17 at 10:05; Status DC Morphine Sulfate 4 mg PRN Q4HRS PRN IV PAIN Last administered on 03/27/17t 13: 46; Start 03/27/17 at 13:30 Active Scripts Active Levetiracetam 500 Mg Tablet 500 Mg PO BID Morphine Sulfate Er (Morphine Sulfate) 30 Mg Tablet.er 30 Mg PO TID Lidoderm (Lidocaine) 700 Mg Adh..patch 1 Patch TD DAILY Metoprolol Tartrate 50 Mg Tablet 50 Mg PO BID Synthroid (Levothyroxine Sodium) 175 Mcg Tablet 175 Mcg PO DAILY07 Isosorbide Mononitrate Er (Isosorbide Mononitrate) 30 Mg Tab.er.24h 30 Mg PO DAILY Reported Calcium Carbonate 500 Mg Tablet 500 Mg PO TIDWMEALS Ambien (Zolpidem Tartrate) 5 Mg Tablet 5 Mg PO HS PRN Alprazolam 0.25 Mg Tablet 1 Tab PO PRN Ventolin Hfa Inhaler (Albuterol Sulfate) 18 Gm Hfa.aer.ad 1 Puff INH Q6HRS PRN Ketorolac Tromethamine 5 Ml Drops 1 Drop OS QID Maxidex (Dexamethasone) 5 Ml Drops.susp 1 Drop OS Q4HRS Ropinirole Hcl 0.25 Mg Tablet 0.25 Mg PO Oxycodone Hcl 5 Mg Capsule 5 Mg PO PRN Citalopram Hbr (Citalopram Hydrobromide) 20 Mg Tablet 1 Tab PO DAILY Trazodone Hcl 50 Mg Tablet 0.5-1 Tab PO QHS Risperidone 0.5 Mg Tablet 1 Tab PO QHS Bromsite (Bromfenac Sodium) 5 Ml Drops 5 Ml LEFTEYE DAILY Vigamox (Moxifloxacin Hcl) 3 Ml Drops 1 Drop LEFTEYE TID Prednisolone Acetate 5 Ml Drops.susp 1 Drop OS Q1HR Famotidine 20 Mg Tablet 20 Mg PO HS Coumadin (Warfarin Sodium) 5 Mg Tablet 1 Tab PO DAILY Nephro-Jimmy Tablet (Folic Acid/Vitamin B Comp W-C) 0.8 Mg Tablet 1 Tab PO DAILY Carafate (Sucralfate) 1 Gm Tablet 1 Tab PO BID Nitrostat (Nitroglycerin) 0.4 Mg Tab.subl 0.4 Mg SL PRN Q5MIN PRN Aranesp Syringe (Darbepoetin Jace In Polysorbat) 100 Mcg/0.5 Ml Disp.syrin 100 Mcg SQ WEEKLY Voltaren (Diclofenac Sodium) 100 Gm Gel..gram. 1 Gm TP BID Clopidogrel (Clopidogrel Bisulfate) 75 Mg Tablet 75 Mg PO DAILY07 Renvela (Sevelamer Carbonate) 800 Mg Tablet Tab PO TID Vitamin D2 (Ergocalciferol (Vitamin D2)) 50,000 Unit Capsule 50,000 Unit PO WEEKLY Atorvastatin Calcium 80 Mg Tablet 80 Mg PO HS Allergies Allergies: Coded Allergies: iodine (Verified Allergy, Severe, THROAT SWELLING, 03/29/16) lisinopril (Verified Allergy, Severe, 03/16/16) Fish Containing Products (Verified Allergy, Intermediate, 03/16/16) Penicillins (Verified Allergy, Intermediate, SEE COMMENT, 04/13/16) 05/19/15 Pt doesnt know reaction; ID starting Meropenem, HAS TOLERATED CEFAZOLIN piperacillin (Verified Allergy, Intermediate, Hives, 03/16/16) tazobactam (Verified Allergy, Intermediate, 03/16/16) ROS Review of System left foot pain, fevers, all else is neg Physical Exam General: Alert, Oriented X3, Cooperative, No acute distress HEENT: Atraumatic, PERRLA, EOMI Lungs: Clear to auscultation, Normal air movement Heart: S1S2, RRR, no thrills, no rubs, no gallops, no murmurs Cardiovascular: S1, S2 Breasts: Normal Abdomen: Normal bowel sounds, Soft, No tenderness, No hepatosplenomegaly, No masses Male Genitals Exam: normal genitalia, normal prostate Rectal Exam: not examined PELVIC: Nml ext genitalia Extremities: Other (amputated toes R foot, RT foot looks ok, left foot sutures have gaped, edema around the amputation site, old crusted blood, no active dc) Neuro: Normal gait, Normal speech, Strength at 5/5 X4 ext, Normal tone, Sensation intact, Cranial nerves 3-12 NL, Reflexes 2+ Psych/Mental Status: Mental status NL, Mood NL Vitals Vitals Vital Signs Date Time Temp Pulse Resp B/P (MAP) Pulse Ox O2 Delivery O2 Flow Rate FiO2 03/27/17 13:46 97 03/27/17 12:58 98.4 91 18 163/83 (109) Room Air 98.4 Labs Labs Laboratory Tests Test 03/27/17 10:19 White Blood Count 10.4 x10^3/uL (4.0-11.0) Red Blood Count 3.36 x10^6/uL (4.30-5.70) Hemoglobin 10.3 g/dL (13.0-17.5) Hematocrit 31.2 % (39.0-53.0) Mean Corpuscular Volume 93 fL (79-100) Mean Corpuscular Hemoglobin 31 pg (25-35) Mean Corpuscular Hemoglobin Concent 33 g/dL (31-37) Red Cell Distribution Width 16.0 % (11.5-14.5) Platelet Count 162 x10^3/uL (140-400) Neutrophils (%) (Auto) 79 % (31-73) Lymphocytes (%) (Auto) 9 % (24-48) Monocytes (%) (Auto) 10 % (0-9) Eosinophils (%) (Auto) 1 % (0-3) Basophils (%) (Auto) 1 % (0-3) Neutrophils # (Auto) 8.2 x10^3uL (1.8-7.7) Lymphocytes # (Auto) 0.9 x10^3/uL (1.0-4.8) Monocytes # (Auto) 1.1 x10^3/uL (0.0-1.1) Eosinophils # (Auto) 0.1 x10^3/uL (0.0-0.7) Basophils # (Auto) 0.1 x10^3/uL (0.0-0.2) Prothrombin Time 14.3 SEC (11.7-14.0) Prothromb Time International Ratio 1.2 (0.8-1.1) Sodium Level 137 mmol/L (136-145) Potassium Level 4.0 mmol/L (3.5-5.1) Chloride Level 100 mmol/L (98-107) Carbon Dioxide Level 25 mmol/L (21-32) Anion Gap 12 (6-14) Blood Urea Nitrogen 64 mg/dL (8-26) Creatinine 4.6 mg/dL (0.7-1.3) Estimated GFR (Cockcroft-Gault) 16.4 BUN/Creatinine Ratio 14 (6-20) Glucose Level 134 mg/dL (70-99) Lactic Acid Level 0.9 mmol/L (0.4-2.0) Calcium Level 8.8 mg/dL (8.5-10.1) Total Bilirubin 1.1 mg/dL (0.2-1.0) Aspartate Amino Transf (AST/SGOT) 17 U/L (15-37) Alanine Aminotransferase (ALT/SGPT) 16 U/L (16-63) Alkaline Phosphatase 86 U/L (46-116) C-Reactive Protein, Quantitative 62.5 mg/L (0-3.3) Total Protein 7.4 g/dL (6.4-8.2) Albumin 2.9 g/dL (3.4-5.0) Albumin/Globulin Ratio 0.6 (1.0-1.7) Laboratory Tests Test 03/27/17 10:19 White Blood Count 10.4 x10^3/uL (4.0-11.0) Red Blood Count 3.36 x10^6/uL (4.30-5.70) Hemoglobin 10.3 g/dL (13.0-17.5) Hematocrit 31.2 % (39.0-53.0) Mean Corpuscular Volume 93 fL (79-100) Mean Corpuscular Hemoglobin 31 pg (25-35) Mean Corpuscular Hemoglobin Concent 33 g/dL (31-37) Red Cell Distribution Width 16.0 % (11.5-14.5) Platelet Count 162 x10^3/uL (140-400) Neutrophils (%) (Auto) 79 % (31-73) Lymphocytes (%) (Auto) 9 % (24-48) Monocytes (%) (Auto) 10 % (0-9) Eosinophils (%) (Auto) 1 % (0-3) Basophils (%) (Auto) 1 % (0-3) Neutrophils # (Auto) 8.2 x10^3uL (1.8-7.7) Lymphocytes # (Auto) 0.9 x10^3/uL (1.0-4.8) Monocytes # (Auto) 1.1 x10^3/uL (0.0-1.1) Eosinophils # (Auto) 0.1 x10^3/uL (0.0-0.7) Basophils # (Auto) 0.1 x10^3/uL (0.0-0.2) Prothrombin Time 14.3 SEC (11.7-14.0) Prothromb Time International Ratio 1.2 (0.8-1.1) Sodium Level 137 mmol/L (136-145) Potassium Level 4.0 mmol/L (3.5-5.1) Chloride Level 100 mmol/L (98-107) Carbon Dioxide Level 25 mmol/L (21-32) Anion Gap 12 (6-14) Blood Urea Nitrogen 64 mg/dL (8-26) Creatinine 4.6 mg/dL (0.7-1.3) Estimated GFR (Cockcroft-Gault) 16.4 BUN/Creatinine Ratio 14 (6-20) Glucose Level 134 mg/dL (70-99) Lactic Acid Level 0.9 mmol/L (0.4-2.0) Calcium Level 8.8 mg/dL (8.5-10.1) Total Bilirubin 1.1 mg/dL (0.2-1.0) Aspartate Amino Transf (AST/SGOT) 17 U/L (15-37) Alanine Aminotransferase (ALT/SGPT) 16 U/L (16-63) Alkaline Phosphatase 86 U/L (46-116) C-Reactive Protein, Quantitative 62.5 mg/L (0-3.3) Total Protein 7.4 g/dL (6.4-8.2) Albumin 2.9 g/dL (3.4-5.0) Albumin/Globulin Ratio 0.6 (1.0-1.7) VTE Prophylaxis Ordered VTE Prophylaxis Devices: Yes VTE Pharmacological Prophylaxi: Yes Assessment/Plan Assessment/Plan 1. Fevers - no other IV aside form Peripheral IV 2. LEft foot post op wound, gaping sutures, subcutaneous edema around - CRP 62, fevers 3. ESRD on HD TTHS 4. Anemia of CKD 5. Obesity BMI 37 6. Hx Left foot infected wound with osteomyelitis. Enterobacter. s/p TMA, closed wound , 03/02 7. Hypothyroidism chronic 8. History of coronary artery disease 9. History of DVT's on warfarin 11. History of chronic back pain 12. Paroxysmal atrial fibrillation 13. Obesity 14. GERD PLAN: COnsult ID given complicated past medical COnsult ortho CBC again lissy BC have been drawn at ER Check Urine for completion sake The wound does not look badly infected though but there is signif edema and sutures are gaping, HIs CRP is high WOund care consult too REsume home meds PT/OT Renal consult for HD HD per renal ANDRAE ROA MD Mar 27, 2017 15:18
[2017-03-27] MEDS ORDERED: NON FORMULARY ITEM (Albuterol Sulfate (Ventolin Hfa Inhaler) 1 PUFF) INH PRN (15:30)
[2017-03-27] MEDS ORDERED: traZODone 50 MG TABLET. PO PRN (15:30)
[2017-03-27] MEDS ORDERED: NITROGLYCERIN SUBLINGUAL 0.4 MG BOTTLE OF 25. SL PRN (15:30)
[2017-03-27] MEDS ORDERED: ALPRAZolam 0.25 MG TABLET PO PRN (15:30)
[2017-03-27] MEDS ORDERED: NON FORMULARY ITEM (Prednisolone Acetate 1 DROP) OS SCH (16:00)
[2017-03-27] MEDS ORDERED: ALBUTEROL SULFATE 2.5 MG/3 ML NEBU. NEB PRN (16:00)
[2017-03-27] MEDS: CALCIUM CARBONATE 500 MG TABLET PO SCH (17:27)
[2017-03-27] MEDS: SEVELAMER CARBONATE 800 MG TABLET. PO SCH (17:27)
[2017-03-27 19:00] VITALS: BP 197/92
[2017-03-27] MEDS ORDERED: DEXAMETHASONE 0.1% OPHTH SOLUTION 5ML BOTTLE. OS SCH (21:00)
[2017-03-27] MEDS ORDERED: KETOROLAC TROMETHAMINE 0.5% OPHTH SOLUTION 3ML BOTTLE. OS SCH (21:00)
[2017-03-27] MEDS: DICLOFENAC SODIUM 1% TOPICAL GEL 100GM TUBE. TP SCH (21:00)
[2017-03-27] MEDS: ATORVASTATIN CALCIUM 40 MG TABLET. PO SCH (21:32)
[2017-03-27] MEDS: MECLIZINE HCL 12.5 MG TABLET. PO SCH (21:32)
[2017-03-27] MEDS: SUCRALFATE 1 GM TABLET. PO SCH (21:32)
[2017-03-27] MEDS: levETIRAcetam 500 MG TABLET PO SCH (21:32)
[2017-03-27] MEDS: FAMOTIDINE 20 MG TABLET. PO SCH (21:33)
[2017-03-27] MEDS: METOPROLOL TART IMMED RELEASE 50 MG TABLET. PO SCH (21:33)
[2017-03-27] MEDS: risperiDONE 0.25 MG TABLET. PO SCH (21:33)
[2017-03-27] MEDS: rOPINIRole 0.25 MG TABLET. PO SCH (21:33)
[2017-03-27] MEDS: SODIUM BICARBONATE 650 MG TABLET. PO SCH (21:34)
[2017-03-27 23:00] VITALS: BP 177/88
[2017-03-28] MEDS: HYDROcodone/APAP 10/325 1 TAB TABLET PO PRN (00:14)
[2017-03-28] MEDS: ACETAMINOPHEN 500 MG TABLET PO PRN ×3 (00:15→20:02)
[2017-03-28 01:45] LABS: BILIRUBIN,URINE NEGATIVE (NEG); GLUCOSE,URINE 100 mg/dL (NEG); NITRITE,URINE NEGATIVE (NEG); PH,URINE 6.5; PROTEIN,URINE >=300 mg/dL (NEG-TRACE)
[2017-03-28 02:21] LABS: BACTERIA,URINE 0 /HPF (0-FEW); SQUAMOUS EPITHELIAL CELL,UR FEW /LPF
[2017-03-28 03:01] VITALS: BP 127/62
[2017-03-28] MEDS: MORPHINE SULFATE 4 MG/ML DISP.SYRIN. IV PRN (05:19)
[2017-03-28 07:00] VITALS: BP 162/89
[2017-03-28] MEDS ORDERED: GENTAMICIN PER PHARMACY. MC ONE (08:15)
[2017-03-28] MEDS ORDERED: LINEZOLID 600 MG TABLET PO ONE (08:15)
[2017-03-28] MEDS ORDERED: MEROPENEM 1 GM in IV NORMAL SALINE 100ML 100 ML IV SCH (08:30)
--- NOTE | 2017-03-28 08:44 | PDOC ---
Infectious Disease Note ROS ROS Vital Sign Vital Signs Vital Signs Date Time Temp Pulse Resp B/P (MAP) Pulse Ox O2 Delivery O2 Flow Rate FiO2 03/28/17 07:00 102.2 101 20 162/89 (113) 98 Room Air 102.2 Labs Lab Laboratory Tests Test 03/27/17 10:19 03/27/17 15:30 03/27/17 20:43 03/28/17 00:00 White Blood Count 10.4 x10^3/uL (4.0-11.0) Red Blood Count 3.36 x10^6/uL (4.30-5.70) Hemoglobin 10.3 g/dL (13.0-17.5) Hematocrit 31.2 % (39.0-53.0) Mean Corpuscular Volume 93 fL (79-100) Mean Corpuscular Hemoglobin 31 pg (25-35) Mean Corpuscular Hemoglobin Concent 33 g/dL (31-37) Red Cell Distribution Width 16.0 % (11.5-14.5) Platelet Count 162 x10^3/uL (140-400) Neutrophils (%) (Auto) 79 % (31-73) Lymphocytes (%) (Auto) 9 % (24-48) Monocytes (%) (Auto) 10 % (0-9) Eosinophils (%) (Auto) 1 % (0-3) Basophils (%) (Auto) 1 % (0-3) Neutrophils # (Auto) 8.2 x10^3uL (1.8-7.7) Lymphocytes # (Auto) 0.9 x10^3/uL (1.0-4.8) Monocytes # (Auto) 1.1 x10^3/uL (0.0-1.1) Eosinophils # (Auto) 0.1 x10^3/uL (0.0-0.7) Basophils # (Auto) 0.1 x10^3/uL (0.0-0.2) Prothrombin Time 14.3 SEC (11.7-14.0) Prothromb Time International Ratio 1.2 (0.8-1.1) Sodium Level 137 mmol/L (136-145) Potassium Level 4.0 mmol/L (3.5-5.1) Chloride Level 100 mmol/L (98-107) Carbon Dioxide Level 25 mmol/L (21-32) Anion Gap 12 (6-14) Blood Urea Nitrogen 64 mg/dL (8-26) Creatinine 4.6 mg/dL (0.7-1.3) Estimated GFR (Cockcroft-Gault) 16.4 BUN/Creatinine Ratio 14 (6-20) Glucose Level 134 mg/dL (70-99) Lactic Acid Level 0.9 mmol/L (0.4-2.0) Calcium Level 8.8 mg/dL (8.5-10.1) Total Bilirubin 1.1 mg/dL (0.2-1.0) Aspartate Amino Transf (AST/SGOT) 17 U/L (15-37) Alanine Aminotransferase (ALT/SGPT) 16 U/L (16-63) Alkaline Phosphatase 86 U/L (46-116) C-Reactive Protein, Quantitative 62.5 mg/L (0-3.3) Total Protein 7.4 g/dL (6.4-8.2) Albumin 2.9 g/dL (3.4-5.0) Albumin/Globulin Ratio 0.6 (1.0-1.7) Erythrocyte Sedimentation Rate 93 (0-15) Glucose (Fingerstick) 135 mg/dL (70-99) Urine Collection Type Unknown Urine Color Yellow Urine Clarity Clear Urine pH 6.5 Urine Specific [place] 1.015 Urine Protein >=300 mg/dL (NEG-TRACE) Urine Glucose (UA) 100 mg/dL (NEG) Urine Ketones (Stick) Negative mg/dL (NEG) Urine Blood Negative (NEG) Urine Nitrite Negative (NEG) Urine Bilirubin Negative (NEG) Urine Urobilinogen Dipstick 1.0 mg/dL (0.2 mg/dL) Urine Leukocyte Esterase Negative (NEG) Urine RBC 6-10 /HPF (0-2) Urine WBC 1-4 /HPF (0-4) Urine Squamous Epithelial Cells Few /LPF Urine Bacteria 0 /HPF (0-FEW) Urine Hyaline Casts Few /HPF Test 03/28/17 07:21 Glucose (Fingerstick) 141 mg/dL (70-99) Objective Assessment Received a page 03/27 Re bibiana Goel but no location of where was ie institution/outpatient or for what reason I was paged ? lab question. Waited for a clarifying page but did not receive a second page Sepsis - POA - GPC in blood Left foot infected wound Fever Zosyn/pcn allergy - has tolerated Cefepime CKD Plan Plan of Care Zyvox po times one now to get something in his system Meropenem (on Keppra)/ then Gent times one and then Vanc Micafungin F/u labs and cults Await Ortho f/u D/w Pharmacy/Nursing Thank you # [phone] JUAN ANTONIO CHASE MD Mar 28, 2017 08:43
[2017-03-28] MEDS: FOLIC/VIT B COMP W-C (RENAL) TABLET. PO SCH (08:55)
[2017-03-28] MEDS: CLOPIDOGREL BISULFATE 75 MG TABLET PO SCH (08:55)
[2017-03-28] MEDS: SODIUM BICARBONATE 650 MG TABLET. PO SCH ×2 (08:56→20:01)
[2017-03-28] MEDS: LEVOTHYROXINE 175 MCG TABLET PO SCH (08:56)
[2017-03-28] MEDS: METOPROLOL TART IMMED RELEASE 50 MG TABLET. PO SCH ×2 (08:56→20:03)
[2017-03-28] MEDS: MECLIZINE HCL 12.5 MG TABLET. PO SCH ×3 (08:56→20:01)
[2017-03-28] MEDS: CALCIUM CARBONATE 500 MG TABLET PO SCH ×3 (08:56→17:00)
[2017-03-28] MEDS: ISOSORBIDE MONONITRATE ER 30 MG TAB.ER.24H PO SCH (08:56)
[2017-03-28] MEDS: CITALOPRAM 20 MG TABLET. PO SCH (08:57)
[2017-03-28] MEDS: SEVELAMER CARBONATE 800 MG TABLET. PO SCH ×3 (08:57→17:00)
[2017-03-28] MEDS: levETIRAcetam 500 MG TABLET PO SCH ×2 (08:57→20:01)
[2017-03-28] MEDS: SUCRALFATE 1 GM TABLET. PO SCH ×2 (08:57→20:03)
[2017-03-28] MEDS: MEROPENEM 1 GM in IV NORMAL SALINE 100ML 100 ML IV SCH (08:58)
[2017-03-28] MEDS ORDERED: VANCOMYCIN 2 GM in IV NORMAL SALINE 500ML BAG 500 ML IV ONE (09:00)
[2017-03-28] MEDS: DICLOFENAC SODIUM 1% TOPICAL GEL 100GM TUBE. TP SCH ×2 (09:00→20:03)
[2017-03-28] MEDS ORDERED: NORMAL SALINE IV ONE (09:00)
[2017-03-28] MEDS ORDERED: GENTAMICIN SULFATE IV ONE (09:00)
[2017-03-28] MEDS: LIDOCAINE (700MG/PATCH) PATCH. TD SCH (09:00)
[2017-03-28] MEDS ORDERED: BROMFENAC SODIUM LEFTEYE SCH (09:00)
[2017-03-28 09:22] LABS: BASO # 0.1 x10^3/uL (0.0-0.2); BASO % 1 % (0-3); EOS % 1 % (0-3); HEMATOCRIT 33.2 % (39.0-53.0); HEMOGLOBIN 10.7 g/dL (13.0-17.5); LYMPH # 0.5 x10^3/uL (1.0-4.8); LYMPH % 6 % (24-48); MEAN CORPUSCULAR HEMOGLOBIN 30 pg (25-35); MEAN CORPUSCULAR HGB CONC 32 g/dL (31-37); MEAN CORPUSCULAR VOLUME 94 fL (79-100); MONO % 10 % (0-9); NEUT % 82 % (31-73); PLATELET COUNT 184 x10^3/uL (140-400); RED BLOOD COUNT 3.54 x10^6/uL (4.30-5.70); RED CELL DISTRIBUTION WIDTH 16.4 % (11.5-14.5); WHITE BLOOD COUNT 7.4 x10^3/uL (4.0-11.0)
[2017-03-28 09:39] LABS: CALCIUM 8.9 mg/dL (8.5-10.1); CREATININE 4.9 mg/dL (0.7-1.3); GFR 15.2; POTASSIUM 4.6 mmol/L (3.5-5.1)
[2017-03-28 11:00] VITALS: BP 108/56
--- NOTE | 2017-03-28 11:05 | PDOC2 ---
CONSULT Date of Consult Date of Consult DATE: 03/28/17 Reason for Consult Reason for Consult: recent left TMA Identification/Chief Complaint Chief Complaint left foot pain and drainage Problems: Source Source: Chart review, Patient History of Present Illness Reason for Visit: Mr. Goel is a 51 year old male patient who was sent to [facility] ER from dialysis yesterday due to reported fevers and cough. He had left transmetatarsal amputation on 03/02/17. He rates his left foot pain 10/10 and states it has been draining. He does have home health that comes once per week and his changes his foot dressing daily. He states he has been running fevers at home, starting two days ago. This morning, temp is 102.2. CRP 62.5 and ESR 93. Blood cultures are positive for gram positive cocci. Past Medical History Cardiovascular: AFIB, CAD, CHF, HTN, MT, Hyperlipidemia, Other Pulmonary: Asthma, Other CENTRAL NERVOUS SYSTEM: CVA, Dementia, Periperal neuropathy, Seizure, TIA, Vertigo GI: Diverticulosis, Hemorrhoids Heme/Onc: Anemia NOS Hepatobiliary: No pertinent hx Psych: Anxiety, Depression Musculoskeletal: Osteoarthritis Infectious disease: No pertinent hx Renal/: Chronic renal insuff (on dialysis ) Endocrine: Diabetes, Hypothyroidism Past Surgical History Past Surgical History: Cataract Removal, Total knee replacement, Other (left TMA 03/02/17) Family History Family History: Hypertension Social History No ALCOHOL: none Drugs: None Lives: with Family Current Problem List Problem List Problems Medical Problems: (1) End stage renal disease Status: Acute (2) Fever Status: Acute Current Medications Current Medications Current Medications Morphine Sulfate 4 mg 1X ONCE IV Last administered on 03/27/17 10:11; Start 03/27/17 at 10:00; Stop 03/27/17 at 10:05; Status DC Morphine Sulfate 4 mg PRN Q4HRS PRN IV PAIN Last administered on 03/28/17 05: 19; Start 03/27/17 at 13:30 Ondansetron HCl (Zofran) 4 mg PRN Q6HRS PRN IV NAUSEA/VOMITING; Start 03/27/17 at 15:15 Acetaminophen/ Hydrocodone Bitart (Lortab 10/325) 1 tab PRN Q6HRS PRN PO PAIN Last administered on 03/28/17 00:14; Start 03/27/17 at 15:15 Acetaminophen (Tylenol) 500 mg PRN Q6HRS PRN PO MILD PAIN / TEMP Last administered on 03/28/17 08:55; Start 03/27/17 at 15:15 Alprazolam (Xanax) 0.25 mg QID PRN PO ANXIETY / AGITATION; Start 03/27/17 at 15 :30 Calcium Carbonate/ Glycine (Oscal) 500 mg TIDWMEALS PO Last administered on 08:56; Start 03/27/17 at 17:00 Citalopram Hydrobromide (CeleXA) 20 mg DAILY PO Last administered on 03/28/17 08:57; Start 03/28/17 at 09:00 Clopidogrel Bisulfate (Plavix) 75 mg DAILY07 PO Last administered on 03/28/17 08:55; Start 03/28/17 at 07:00 Darbepoetin Jace (Aranesp) 100 mcg WEEKLY SQ ; Start 04/03/17 at 09:00; Status UNV Dexamethasone (Maxidex) 1 drop TID OS ; Start 03/27/17 at 21:00; Status Cancel Diclofenac Sodium (Voltaren) 1 ayaz BID TP ; Start 03/27/17 at 21:00 Ergocalciferol (Vitamin D2) 50,000 unit WEEKLY PO ; Start 04/03/17 at 09:00 Famotidine (Pepcid) 20 mg HS PO Last administered on 03/27/17 21:33; Start at 21:00 Vitamin B Complex/ Vitamin C (Fernanda-Jimmy) 1 tab DAILY PO Last administered on 08:55; Start 03/28/17 at 09:00 Isosorbide Mononitrate (Imdur) 30 mg DAILY PO Last administered on 03/28/17 08 :56; Start 03/28/17 at 09:00 Ketorolac Tromethamine (Acular) 1 drop BID OS ; Start 03/27/17 at 21:00; Status Cancel Levetiracetam (Keppra) 500 mg BID PO Last administered on 03/28/17 08:57; Start 03/27/17 at 21:00 Levothyroxine Sodium (Synthroid) 175 mcg DAILY07 PO Last administered on 08:56; Start 03/28/17 at 07:00 Lidocaine (Lidoderm) 1 patch DAILY TD ; Start 03/28/17 at 09:00 Meclizine HCl (Antivert) 12.5 mg TID PO Last administered on 03/28/17 08:56; Start 03/27/17 at 21:00 Metoprolol Tartrate (Lopressor) 50 mg BID PO Last administered on 03/28/17 08: 56; Start 03/27/17 at 21:00 Nitroglycerin (Nitrostat) 0.4 mg PRN Q5MIN PRN SL CHEST PAIN; Start 03/27/17 at 15:30 Ropinirole HCl (Requip) 0.25 mg QHS PO Last administered on 03/27/17 21:33; Start 03/27/17 at 21:00 Sevelamer Carbonate (Renvela) 2,400 mg TIDWMEALS PO Last administered on 08:57; Start 03/27/17 at 17:00 Sodium Bicarbonate (Sodium Bicarbonate) 1,300 mg BID PO Last administered on 08:56; Start 03/27/17 at 21:00 Sucralfate (Carafate) 1 gm BID PO Last administered on 03/28/17 08:57; Start 03/27/17 at 21:00 Trazodone HCl (Desyrel) 50 mg QHS PRN PO sleep; Start 03/27/17 at 15:30 Warfarin Sodium (Coumadin) 5 mg DAILY16 PO ; Start 03/28/17 at 16:00 Zolpidem Tartrate (Ambien) 5 mg HS PRN PO sleep; Start 03/27/17 at 15:30 Non-Formulary Medication 1 puff Q6HRS PRN INH SHORTNESS OF BREATH; Start at 15:30; Status UNV Atorvastatin Calcium (Lipitor) 80 mg QHS PO Last administered on 03/27/17 21: 32; Start 03/27/17 at 21:00 Non-Formulary Medication 5 ml DAILY LEFTEYE ; Start 03/28/17 at 09:00; Status UNV Non-Formulary Medication 1 drop Q1HR OS ; Start 03/27/17 at 16:00; Status UNV Risperidone (RisperDAL) 0.5 mg QHS PO Last administered on 03/27/17 21:33; Start 03/27/17 at 21:00 Albuterol Sulfate (Ventolin Neb Soln) 2.5 mg PRN Q6HRS PRN NEB SHORTNESS OF BREATH Last administered on 03/27/17 19:49; Start 03/27/17 at 16:00 Warfarin Sodium (Coumadin Per Physician) 1 each PRN DAILY PRN MC SEE COMMENTS; Start 03/27/17 at 16:15 Vancomycin HCl (Vanco Per Pharmacy) 1 each PRN DAILY PRN MC SEE COMMENTS; Start 03/28/17 at 08:15 Linezolid (Zyvox) 600 mg ONCE ONCE PO Last administered on 03/28/17 08:53; Start 03/28/17 at 08:15; Stop 03/28/17 at 08:21; Status DC Meropenem 1 gm/ Sodium Chloride 100 ml @ 200 mls/hr DAILY IV ; Start 03/28/17 at 08:30; Stop 03/28/17 at 08:30; Status DC Gentamicin Sulfate 1 each ONCE ONCE MC ; Start 03/28/17 at 08:15; Stop at 08:33; Status DC Meropenem 1 gm/ Sodium Chloride 100 ml @ 200 mls/hr DAILY IV Last administered on 03/28/17 08:58; Start 03/28/17 at 08:30 Micafungin Sodium 100 mg/Dextrose 100 ml @ 100 mls/hr Q24H IV ; Start 03/28/17 at 10:00 Vancomycin HCl 2 gm/Sodium Chloride 500 ml @ 250 mls/hr ONCE ONCE IV ; Start 03/28/17 at 09:00; Stop 03/28/17 at 10:59 Gentamicin Sulfate 280 mg/ Sodium Chloride 107 ml @ 107 mls/hr ONCE ONCE IV ; Start 03/28/17 at 09:00; Stop 03/28/17 at 09:59; Status DC Active Scripts Active Levetiracetam 500 Mg Tablet 500 Mg PO BID Lidoderm (Lidocaine) 700 Mg Adh..patch 1 Patch TD DAILY Metoprolol Tartrate 50 Mg Tablet 50 Mg PO BID Synthroid (Levothyroxine Sodium) 175 Mcg Tablet 175 Mcg PO DAILY07 Isosorbide Mononitrate Er (Isosorbide Mononitrate) 30 Mg Tab.er.24h 30 Mg PO DAILY Reported Sodium Bicarbonate 650 Mg Tablet 2 Tab PO BID on dialysis days sunday, and sunday Meclizine Hcl 12.5 Mg Tablet 1 Tab PO TID Calcium Carbonate 500 Mg Tablet 500 Mg PO TIDWMEALS Ambien (Zolpidem Tartrate) 5 Mg Tablet 5 Mg PO HS PRN Alprazolam 0.25 Mg Tablet 1 Tab PO PRN Ventolin Hfa Inhaler (Albuterol Sulfate) 18 Gm Hfa.aer.ad 1 Puff INH Q6HRS PRN Ropinirole Hcl 0.25 Mg Tablet 0.25 Mg PO Citalopram Hbr (Citalopram Hydrobromide) 20 Mg Tablet 1 Tab PO DAILY Trazodone Hcl 50 Mg Tablet 0.5-1 Tab PO QHS Risperidone 0.5 Mg Tablet 1 Tab PO QHS Famotidine 20 Mg Tablet 20 Mg PO HS Coumadin (Warfarin Sodium) 5 Mg Tablet 1 Tab PO DAILY Nephro-Jimmy Tablet (Folic Acid/Vitamin B Comp W-C) 0.8 Mg Tablet 1 Tab PO DAILY Carafate (Sucralfate) 1 Gm Tablet 1 Tab PO BID Nitrostat (Nitroglycerin) 0.4 Mg Tab.subl 0.4 Mg SL PRN Q5MIN PRN Voltaren (Diclofenac Sodium) 100 Gm Gel..gram. 1 Gm TP BID Clopidogrel (Clopidogrel Bisulfate) 75 Mg Tablet 75 Mg PO DAILY07 Renvela (Sevelamer Carbonate) 800 Mg Tablet 2,400 Tab PO TIDWMEALS Vitamin D2 (Ergocalciferol (Vitamin D2)) 50,000 Unit Capsule 50,000 Unit PO WEEKLY weekly on Sunday Atorvastatin Calcium 80 Mg Tablet 80 Mg PO HS Allergies Allergies: Coded Allergies: iodine (Verified Allergy, Severe, THROAT SWELLING, 03/29/16) lisinopril (Verified Allergy, Severe, 03/16/16) Fish Containing Products (Verified Allergy, Intermediate, 03/16/16) Penicillins (Verified Allergy, Intermediate, SEE COMMENT, 04/13/16) 05/19/15 Pt doesnt know reaction; ID starting Meropenem, HAS TOLERATED CEFAZOLIN piperacillin (Verified Allergy, Intermediate, Hives, 03/16/16) tazobactam (Verified Allergy, Intermediate, 8/4/16) ROS Review of System fever, cough, foot pain Physical Exam General: Alert, Oriented X3, Cooperative, No acute distress HEENT: Atraumatic, EOMI Lungs: Normal air movement Heart: Regular rate Abdomen: Soft Extremities: No clubbing, No cyanosis, Normal pulses Skin: No rashes Neuro: Normal speech, Normal tone MUSCULOSKELETAL: Other (There is dehiscence of the left foot transmetatarsal incision. Sutures remain intact. There is mild oozing of serosanguineous drainage. No active bleeding. Foot is painful with any attempted motion. Calf soft and nontender. Light touch sensation diminished due to chronic neuropathy.) Vitals VITALS Vital Signs Date Time Temp Pulse Resp B/P (MAP) Pulse Ox O2 Delivery O2 Flow Rate FiO2 03/28/17 08:56 101 162/89 03/28/17 07:00 102.2 20 98 Room Air 102.2 Labs Labs Laboratory Tests Test 03/27/17 10:19 03/27/17 15:30 03/27/17 20:43 03/28/17 00:00 White Blood Count 10.4 x10^3/uL (4.0-11.0) Red Blood Count 3.36 x10^6/uL (4.30-5.70) Hemoglobin 10.3 g/dL (13.0-17.5) Hematocrit 31.2 % (39.0-53.0) Mean Corpuscular Volume 93 fL (79-100) Mean Corpuscular Hemoglobin 31 pg (25-35) Mean Corpuscular Hemoglobin Concent 33 g/dL (31-37) Red Cell Distribution Width 16.0 % (11.5-14.5) Platelet Count 162 x10^3/uL (140-400) Neutrophils (%) (Auto) 79 % (31-73) Lymphocytes (%) (Auto) 9 % (24-48) Monocytes (%) (Auto) 10 % (0-9) Eosinophils (%) (Auto) 1 % (0-3) Basophils (%) (Auto) 1 % (0-3) Neutrophils # (Auto) 8.2 x10^3uL (1.8-7.7) Lymphocytes # (Auto) 0.9 x10^3/uL (1.0-4.8) Monocytes # (Auto) 1.1 x10^3/uL (0.0-1.1) Eosinophils # (Auto) 0.1 x10^3/uL (0.0-0.7) Basophils # (Auto) 0.1 x10^3/uL (0.0-0.2) Prothrombin Time 14.3 SEC (11.7-14.0) Prothromb Time International Ratio 1.2 (0.8-1.1) Sodium Level 137 mmol/L (136-145) Potassium Level 4.0 mmol/L (3.5-5.1) Chloride Level 100 mmol/L (98-107) Carbon Dioxide Level 25 mmol/L (21-32) Anion Gap 12 (6-14) Blood Urea Nitrogen 64 mg/dL (8-26) Creatinine 4.6 mg/dL (0.7-1.3) Estimated GFR (Cockcroft-Gault) 16.4 BUN/Creatinine Ratio 14 (6-20) Glucose Level 134 mg/dL (70-99) Lactic Acid Level 0.9 mmol/L (0.4-2.0) Calcium Level 8.8 mg/dL (8.5-10.1) Total Bilirubin 1.1 mg/dL (0.2-1.0) Aspartate Amino Transf (AST/SGOT) 17 U/L (15-37) Alanine Aminotransferase (ALT/SGPT) 16 U/L (16-63) Alkaline Phosphatase 86 U/L (46-116) C-Reactive Protein, Quantitative 62.5 mg/L (0-3.3) Total Protein 7.4 g/dL (6.4-8.2) Albumin 2.9 g/dL (3.4-5.0) Albumin/Globulin Ratio 0.6 (1.0-1.7) Erythrocyte Sedimentation Rate 93 (0-15) Glucose (Fingerstick) 135 mg/dL (70-99) Urine Collection Type Unknown Urine Color Yellow Urine Clarity Clear Urine pH 6.5 Urine Specific [place] 1.015 Urine Protein >=300 mg/dL (NEG-TRACE) Urine Glucose (UA) 100 mg/dL (NEG) Urine Ketones (Stick) Negative mg/dL (NEG) Urine Blood Negative (NEG) Urine Nitrite Negative (NEG) Urine Bilirubin Negative (NEG) Urine Urobilinogen Dipstick 1.0 mg/dL (0.2 mg/dL) Urine Leukocyte Esterase Negative (NEG) Urine RBC 6-10 /HPF (0-2) Urine WBC 1-4 /HPF (0-4) Urine Squamous Epithelial Cells Few /LPF Urine Bacteria 0 /HPF (0-FEW) Urine Hyaline Casts Few /HPF Test 03/28/17 07:21 03/28/17 09:10 Glucose (Fingerstick) 141 mg/dL (70-99) White Blood Count 7.4 x10^3/uL (4.0-11.0) Red Blood Count 3.54 x10^6/uL (4.30-5.70) Hemoglobin 10.7 g/dL (13.0-17.5) Hematocrit 33.2 % (39.0-53.0) Mean Corpuscular Volume 94 fL (79-100) Mean Corpuscular Hemoglobin 30 pg (25-35) Mean Corpuscular Hemoglobin Concent 32 g/dL (31-37) Red Cell Distribution Width 16.4 % (11.5-14.5) Platelet Count 184 x10^3/uL (140-400) Neutrophils (%) (Auto) 82 % (31-73) Lymphocytes (%) (Auto) 6 % (24-48) Monocytes (%) (Auto) 10 % (0-9) Eosinophils (%) (Auto) 1 % (0-3) Basophils (%) (Auto) 1 % (0-3) Neutrophils # (Auto) 6.1 x10^3uL (1.8-7.7) Lymphocytes # (Auto) 0.5 x10^3/uL (1.0-4.8) Monocytes # (Auto) 0.7 x10^3/uL (0.0-1.1) Eosinophils # (Auto) 0.0 x10^3/uL (0.0-0.7) Basophils # (Auto) 0.1 x10^3/uL (0.0-0.2) Sodium Level 135 mmol/L (136-145) Potassium Level 4.6 mmol/L (3.5-5.1) Chloride Level 99 mmol/L (98-107) Carbon Dioxide Level 28 mmol/L (21-32) Anion Gap 8 (6-14) Blood Urea Nitrogen 68 mg/dL (8-26) Creatinine 4.9 mg/dL (0.7-1.3) Estimated GFR (Cockcroft-Gault) 15.2 Glucose Level 160 mg/dL (70-99) Lactic Acid Level 1.0 mmol/L (0.4-2.0) Calcium Level 8.9 mg/dL (8.5-10.1) Laboratory Tests Test 03/27/17 15:30 03/27/17 20:43 03/28/17 00:00 03/28/17 07:21 Erythrocyte Sedimentation Rate 93 (0-15) Glucose (Fingerstick) 135 mg/dL (70-99) 141 mg/dL (70-99) Urine Collection Type Unknown Urine Color Yellow Urine Clarity Clear Urine pH 6.5 Urine Specific [place] 1.015 Urine Protein >=300 mg/dL (NEG-TRACE) Urine Glucose (UA) 100 mg/dL (NEG) Urine Ketones (Stick) Negative mg/dL (NEG) Urine Blood Negative (NEG) Urine Nitrite Negative (NEG) Urine Bilirubin Negative (NEG) Urine Urobilinogen Dipstick 1.0 mg/dL (0.2 mg/dL) Urine Leukocyte Esterase Negative (NEG) Urine RBC 6-10 /HPF (0-2) Urine WBC 1-4 /HPF (0-4) Urine Squamous Epithelial Cells Few /LPF Urine Bacteria 0 /HPF (0-FEW) Urine Hyaline Casts Few /HPF Test 03/28/17 09:10 White Blood Count 7.4 x10^3/uL (4.0-11.0) Red Blood Count 3.54 x10^6/uL (4.30-5.70) Hemoglobin 10.7 g/dL (13.0-17.5) Hematocrit 33.2 % (39.0-53.0) Mean Corpuscular Volume 94 fL (79-100) Mean Corpuscular Hemoglobin 30 pg (25-35) Mean Corpuscular Hemoglobin Concent 32 g/dL (31-37) Red Cell Distribution Width 16.4 % (11.5-14.5) Platelet Count 184 x10^3/uL (140-400) Neutrophils (%) (Auto) 82 % (31-73) Lymphocytes (%) (Auto) 6 % (24-48) Monocytes (%) (Auto) 10 % (0-9) Eosinophils (%) (Auto) 1 % (0-3) Basophils (%) (Auto) 1 % (0-3) Neutrophils # (Auto) 6.1 x10^3uL (1.8-7.7) Lymphocytes # (Auto) 0.5 x10^3/uL (1.0-4.8) Monocytes # (Auto) 0.7 x10^3/uL (0.0-1.1) Eosinophils # (Auto) 0.0 x10^3/uL (0.0-0.7) Basophils # (Auto) 0.1 x10^3/uL (0.0-0.2) Sodium Level 135 mmol/L (136-145) Potassium Level 4.6 mmol/L (3.5-5.1) Chloride Level 99 mmol/L (98-107) Carbon Dioxide Level 28 mmol/L (21-32) Anion Gap 8 (6-14) Blood Urea Nitrogen 68 mg/dL (8-26) Creatinine 4.9 mg/dL (0.7-1.3) Estimated GFR (Cockcroft-Gault) 15.2 Glucose Level 160 mg/dL (70-99) Lactic Acid Level 1.0 mmol/L (0.4-2.0) Calcium Level 8.9 mg/dL (8.5-10.1) Images Images Left foot x-rays were reviewed and show surgical changes from transmetatarsal amputation. There is soft tissue edema without subcutaneous gas or extensive osseous erosion. Assessment/Plan Assessment/Plan s/p left foot transmetatarsal amputation 03/02/17 There is dehiscence of the transmetatarsal incision with mild drainage. Blood cultures show gram positive cocci. I have ordered transcutaneous oximetry to assess healing potential at this level. Depending on results of TCOM, one more attempt at debridement with delayed closure versus BKA may be necessary. Continue abx per ID. NWB on LLE. EVERARDO RUIZ Mar 28, 2017 11:05
--- NOTE | 2017-03-28 11:28 | CONS ---
DATE OF CONSULTATION: 03/28/2017 PATIENT ROOM: 668. REQUESTING PHYSICIAN: Lucinda Diaz M.D. REASON FOR CONSULTATION: Fevers, wound, left foot. HISTORY OF PRESENT ILLNESS: The patient is a 51-year-old gentleman with longstanding chronic kidney disease on hemodialysis. Also he has a history of methicillin-sensitive Staphylococcus aureus and difficulty with venous access. This past February he underwent a left TMA for infected wound. Cultures at that time demonstrated an Enterobacter species resistant to Augmentin, cefazolin and cefuroxime. The patient states that he was discharged home, he has not been on any antimicrobials and he and his has been caring for the wound. He states the wound "bursted open" weeks ago, but on the evening of the , he began to feel ill, had some chills and some sweats. No gross headache, no gross shortness of air, but he presented to dialysis and they sent him to the Emergency Room. On arrival, his white count of 10.4, 79% neutrophils. Blood cultures were obtained. Foot x-ray was obtained and it showed postoperative changes, but there is no subcutaneous gas or extensive erosion. Chest x-ray showed no acute cardiopulmonary process, but the left costophrenic angles excluded. Currently, the patient is sitting upright in bed. He states he is okay, but he does feel warm to touch. PAST MEDICAL HISTORY: Positive for MSSA sepsis. He has had congestive heart failure, coronary artery disease, previous CVA, diabetes, hypertension, multiple myocardial infarctions, history of scrotal cellulitis, abscess, history of MRSA screen positivity as well as Enterobacter that was mentioned above. PAST SURGICAL HISTORY: Positive for multiple line placements as well as previous fistula repairs and replacements, status post the above-mentioned left TMA, scrotal abscess I and D, TURP, total knee, cataract removal. REVIEW OF SYSTEMS: Otherwise, negative except for what is mentioned above. ALLERGIES: LISTED PENICILLIN, ZOSYN, BUT HE HAS TOLERATED CEFAZOLIN, ALSO FISH CONTAINING PRODUCTS, LISINOPRIL. SOCIAL HISTORY: He is . No alcohol, no tobacco. CURRENT MEDICATIONS: Albuterol, Xanax, Lipitor, Os-Phan, Celexa, Plavix, Pepcid, Imdur, Keppra, Synthroid, Antivert, Requip, trazodone, Coumadin. PHYSICAL EXAMINATION: VITAL SIGNS: Current temperature is 102.2, pulse 101, respirations 20, blood pressure 169/89, satting 98% on room air. CONSTITUTIONAL: He is cooperative. He is in no acute distress. HEENT: Pupils are equal and reactive. He has normal conjunctivae. Oral cavity, oropharynx is clear. NECK: Supple, no JVD. LUNGS: Clear to auscultation. HEART: S1, S2. Mild murmur. ABDOMEN: Obese, soft, nontender, nondistended with positive bowel sounds. EXTREMITIES: Without clubbing, cyanosis. His left foot wound has dehiscence. There is some mild necrosis around the base of the wound. The foot is mildly warm to touch, but there is no gross erythema. There is 1+ edema. SKIN: Warm to touch without signs of generalized rash. NEUROLOGIC: He is nonfocal, moves all extremities. PSYCHIATRIC: Affect is appropriate. LABORATORY DATA: White count 10.4, hemoglobin 10.3, platelets 162 with neutrophils of 79 on arrival. Most recent glucose of 141, creatinine of 4.6, 134. Normal liver function study tests. Urinalysis without bacteria. Most recent MRSA screen on the 03/01/2017 was negative. Radiology reviewed in history of present illness. I received a page on the 03/27/2017 regarding the patient, but no location of where the patient was, which institution, it was an outpatient page or for what reason I was paged, questionable lab question or other, waited for clarifying page but did not receive the second page. IMPRESSION: 1. Sepsis present on admission, gram-positive cocci reported in blood now, left foot infected wound. 2. Fever. 3. ZOSYN, PENICILLIN ALLERGY, but has tolerated cefepime. 4. Chronic kidney disease. RECOMMENDATIONS: For now I am going to dose the Zyvox p.o. x 1 just to get something in his system and to start vancomycin run over several hours and clarify what the gram-positive cocci is. I am going to dose him with meropenem, which can be run fairly quickly. He is on Keppra with a seizure history. Additionally, would give gentamicin x 1 and then we will run the vancomycin. Additionally, we will add micafungin, given his diabetes, he is at risk for fungal infections and we will follow up on labs and cultures, await for Ortho evaluation. Did discuss with Pharmacy as well as a nursing the above strategy. Thank you for allowing us to participate in this patient's care. If you have any questions, please do not hesitate to contact me. JUAN ANTONIO CHASE MD DR: UMBERTO/roni JOB#: [id number] / [id number]
--- NOTE | 2017-03-28 13:04 | PDOC2 ---
CONSULT Date of Consult Date of Consult DATE: 03/28/17 TIME: 13:02 Reason for Consult Reason for Consult: ESRD Referring Physician Referring Physician: ER MD Linda CARRASCO Identification/Chief Complaint Chief Complaint FEVER Problems: Source Source: Chart review, Patient History of Present Illness Reason for Visit: as dictated Past Medical History Cardiovascular: AFIB, CAD, CHF, HTN, HI, Hyperlipidemia, Other Pulmonary: Asthma, Other CENTRAL NERVOUS SYSTEM: CVA, Dementia, Periperal neuropathy, Seizure, TIA, Vertigo GI: Diverticulosis, Hemorrhoids Heme/Onc: Anemia NOS Hepatobiliary: No pertinent hx Psych: Anxiety, Depression Musculoskeletal: Osteoarthritis Infectious disease: No pertinent hx Renal/: Chronic renal insuff (on dialysis ) Endocrine: Diabetes, Hypothyroidism Past Surgical History Past Surgical History: Cataract Removal, Total knee replacement, Other (left TMA 03/02/17) Family History Family History: Hypertension Social History No ALCOHOL: none Drugs: None Lives: with Family Current Problem List Problem List Problems Medical Problems: (1) End stage renal disease Status: Acute (2) Fever Status: Acute Current Medications Current Medications Current Medications Morphine Sulfate 4 mg 1X ONCE IV Last administered on 03/27/17 10:11; Start 03/27/17 at 10:00; Stop 03/27/17 at 10:05; Status DC Morphine Sulfate 4 mg PRN Q4HRS PRN IV PAIN Last administered on 03/28/17 05: 19; Start 03/27/17 at 13:30 Ondansetron HCl (Zofran) 4 mg PRN Q6HRS PRN IV NAUSEA/VOMITING; Start 03/27/17 at 15:15 Acetaminophen/ Hydrocodone Bitart (Lortab 10/325) 1 tab PRN Q6HRS PRN PO PAIN Last administered on 03/28/17 00:14; Start 03/27/17 at 15:15 Acetaminophen (Tylenol) 500 mg PRN Q6HRS PRN PO MILD PAIN / TEMP Last administered on 03/28/17 08:55; Start 03/27/17 at 15:15 Alprazolam (Xanax) 0.25 mg QID PRN PO ANXIETY / AGITATION; Start 03/27/17 at 15 :30 Calcium Carbonate/ Glycine (Oscal) 500 mg TIDWMEALS PO Last administered on 12:18; Start 03/27/17 at 17:00 Citalopram Hydrobromide (CeleXA) 20 mg DAILY PO Last administered on 03/28/17 08:57; Start 03/28/17 at 09:00 Clopidogrel Bisulfate (Plavix) 75 mg DAILY07 PO Last administered on 03/28/17 08:55; Start 03/28/17 at 07:00 Darbepoetin Jace (Aranesp) 100 mcg WEEKLY SQ ; Start 04/03/17 at 09:00; Status UNV Dexamethasone (Maxidex) 1 drop TID OS ; Start 03/27/17 at 21:00; Status Cancel Diclofenac Sodium (Voltaren) 1 ayaz BID TP ; Start 03/27/17 at 21:00 Ergocalciferol (Vitamin D2) 50,000 unit WEEKLY PO ; Start 04/03/17 at 09:00 Famotidine (Pepcid) 20 mg HS PO Last administered on 03/27/17 21:33; Start at 21:00 Vitamin B Complex/ Vitamin C (Fernanda-Jimmy) 1 tab DAILY PO Last administered on 08:55; Start 03/28/17 at 09:00 Isosorbide Mononitrate (Imdur) 30 mg DAILY PO Last administered on 03/28/17 08 :56; Start 03/28/17 at 09:00 Ketorolac Tromethamine (Acular) 1 drop BID OS ; Start 03/27/17 at 21:00; Status Cancel Levetiracetam (Keppra) 500 mg BID PO Last administered on 03/28/17 08:57; Start 03/27/17 at 21:00 Levothyroxine Sodium (Synthroid) 175 mcg DAILY07 PO Last administered on 08:56; Start 03/28/17 at 07:00 Lidocaine (Lidoderm) 1 patch DAILY TD ; Start 03/28/17 at 09:00 Meclizine HCl (Antivert) 12.5 mg TID PO Last administered on 03/28/17 08:56; Start 03/27/17 at 21:00 Metoprolol Tartrate (Lopressor) 50 mg BID PO Last administered on 03/28/17 08: 56; Start 03/27/17 at 21:00 Nitroglycerin (Nitrostat) 0.4 mg PRN Q5MIN PRN SL CHEST PAIN; Start 03/27/17 at 15:30 Ropinirole HCl (Requip) 0.25 mg QHS PO Last administered on 03/27/17 21:33; Start 03/27/17 at 21:00 Sevelamer Carbonate (Renvela) 2,400 mg TIDWMEALS PO Last administered on 12:19; Start 03/27/17 at 17:00 Sodium Bicarbonate (Sodium Bicarbonate) 1,300 mg BID PO Last administered on 08:56; Start 03/27/17 at 21:00 Sucralfate (Carafate) 1 gm BID PO Last administered on 03/28/17 08:57; Start 03/27/17 at 21:00 Trazodone HCl (Desyrel) 50 mg QHS PRN PO sleep; Start 03/27/17 at 15:30 Warfarin Sodium (Coumadin) 5 mg DAILY16 PO ; Start 03/28/17 at 16:00 Zolpidem Tartrate (Ambien) 5 mg HS PRN PO sleep; Start 03/27/17 at 15:30 Non-Formulary Medication 1 puff Q6HRS PRN INH SHORTNESS OF BREATH; Start at 15:30; Status UNV Atorvastatin Calcium (Lipitor) 80 mg QHS PO Last administered on 03/27/17 21: 32; Start 03/27/17 at 21:00 Non-Formulary Medication 5 ml DAILY LEFTEYE ; Start 03/28/17 at 09:00; Status UNV Non-Formulary Medication 1 drop Q1HR OS ; Start 03/27/17 at 16:00; Status UNV Risperidone (RisperDAL) 0.5 mg QHS PO Last administered on 03/27/17 21:33; Start 03/27/17 at 21:00 Albuterol Sulfate (Ventolin Neb Soln) 2.5 mg PRN Q6HRS PRN NEB SHORTNESS OF BREATH Last administered on 03/27/17 19:49; Start 03/27/17 at 16:00 Warfarin Sodium (Coumadin Per Physician) 1 each PRN DAILY PRN MC SEE COMMENTS; Start 03/27/17 at 16:15 Vancomycin HCl (Vanco Per Pharmacy) 1 each PRN DAILY PRN MC SEE COMMENTS; Start 03/28/17 at 08:15 Linezolid (Zyvox) 600 mg ONCE ONCE PO Last administered on 03/28/17 08:53; Start 03/28/17 at 08:15; Stop 03/28/17 at 08:21; Status DC Meropenem 1 gm/ Sodium Chloride 100 ml @ 200 mls/hr DAILY IV ; Start 03/28/17 at 08:30; Stop 03/28/17 at 08:30; Status DC Gentamicin Sulfate 1 each ONCE ONCE MC ; Start 03/28/17 at 08:15; Stop at 08:33; Status DC Meropenem 1 gm/ Sodium Chloride 100 ml @ 200 mls/hr DAILY IV Last administered on 03/28/17 08:58; Start 03/28/17 at 08:30 Micafungin Sodium 100 mg/Dextrose 100 ml @ 100 mls/hr Q24H IV ; Start 03/28/17 at 10:00 Vancomycin HCl 2 gm/Sodium Chloride 500 ml @ 250 mls/hr ONCE ONCE IV Last administered on 03/28/17 11:20; Start 03/28/17 at 09:00; Stop 03/28/17 at 10:59 ; Status DC Gentamicin Sulfate 280 mg/ Sodium Chloride 107 ml @ 107 mls/hr ONCE ONCE IV ; Start 03/28/17 at 09:00; Stop 03/28/17 at 09:59; Status DC Active Scripts Active Levetiracetam 500 Mg Tablet 500 Mg PO BID Lidoderm (Lidocaine) 700 Mg Adh..patch 1 Patch TD DAILY Metoprolol Tartrate 50 Mg Tablet 50 Mg PO BID Synthroid (Levothyroxine Sodium) 175 Mcg Tablet 175 Mcg PO DAILY07 Isosorbide Mononitrate Er (Isosorbide Mononitrate) 30 Mg Tab.er.24h 30 Mg PO DAILY Reported Sodium Bicarbonate 650 Mg Tablet 2 Tab PO BID on dialysis days sunday, and sunday Meclizine Hcl 12.5 Mg Tablet 1 Tab PO TID Calcium Carbonate 500 Mg Tablet 500 Mg PO TIDWMEALS Ambien (Zolpidem Tartrate) 5 Mg Tablet 5 Mg PO HS PRN Alprazolam 0.25 Mg Tablet 1 Tab PO PRN Ventolin Hfa Inhaler (Albuterol Sulfate) 18 Gm Hfa.aer.ad 1 Puff INH Q6HRS PRN Ropinirole Hcl 0.25 Mg Tablet 0.25 Mg PO Citalopram Hbr (Citalopram Hydrobromide) 20 Mg Tablet 1 Tab PO DAILY Trazodone Hcl 50 Mg Tablet 0.5-1 Tab PO QHS Risperidone 0.5 Mg Tablet 1 Tab PO QHS Famotidine 20 Mg Tablet 20 Mg PO HS Coumadin (Warfarin Sodium) 5 Mg Tablet 1 Tab PO DAILY Nephro-Jimmy Tablet (Folic Acid/Vitamin B Comp W-C) 0.8 Mg Tablet 1 Tab PO DAILY Carafate (Sucralfate) 1 Gm Tablet 1 Tab PO BID Nitrostat (Nitroglycerin) 0.4 Mg Tab.subl 0.4 Mg SL PRN Q5MIN PRN Voltaren (Diclofenac Sodium) 100 Gm Gel..gram. 1 Gm TP BID Clopidogrel (Clopidogrel Bisulfate) 75 Mg Tablet 75 Mg PO DAILY07 Renvela (Sevelamer Carbonate) 800 Mg Tablet 2,400 Tab PO TIDWMEALS Vitamin D2 (Ergocalciferol (Vitamin D2)) 50,000 Unit Capsule 50,000 Unit PO WEEKLY weekly on Sunday Atorvastatin Calcium 80 Mg Tablet 80 Mg PO HS Allergies Allergies: Coded Allergies: iodine (Verified Allergy, Severe, THROAT SWELLING, 03/29/16) lisinopril (Verified Allergy, Severe, 03/16/16) Fish Containing Products (Verified Allergy, Intermediate, 03/16/16) Penicillins (Verified Allergy, Intermediate, SEE COMMENT, 04/13/16) 05/19/15 Pt doesnt know reaction; ID starting Meropenem, HAS TOLERATED CEFAZOLIN piperacillin (Verified Allergy, Intermediate, Hives, 03/16/16) tazobactam (Verified Allergy, Intermediate, 03/16/16) ROS Review of System GEN: + Fevers + Chills EYES: NO NEW Visual Complaints ENT: no EN Drainage no Hearing deficiets CVS: no Orthopnea no CP RESP: no SOB no MCCLAIN GI: no Nausea no Vomiting : no Dysuria no Urgency HEME: no easy bruising no Palp Ly Nodes NEURO no Focal Weakness no Sz PSYCH: no Suicidal Ideation no Depression SKIN: no Rashes foot Wounds as described elsewhere ENDO: no Polyuria or Polydipsia no Hot/Cold Intolerance MU SK: no Arthraigia min Myalgia Physical Exam Physical Exam General Appearance: Awake Alert Oriented x 3 In no Distress Eyes: VIsion Unchanged Conjunctiva Normal EN: No EN Drainage Mucous Memb. moist Neck: no JVD no JVP Supple no Thyromegaly CVS: S1 S2 + Murmur No Gallop No Rub no Edema Resp: no Rales no Rhonchi no Acc. Muscle use GI: BAS +ve NO Bruit Non Tender Non Distended : no CVA tenderness; no Suprapubic Tenderness SKIN: no Rashes left foot wound in bandage Mu.Sk: Adequate ROM no Muscle Atrophy Heme: Unable to palpate Obvious LAD no Splenomegaly NEURO: Good Strength and Tone Cranial Nerves II - XII grossly intact Psych: not Depressed no Active hallucination Vital Signs Vital Signs Date Time Temp Pulse Resp B/P (MAP) Pulse Ox O2 Delivery O2 Flow Rate FiO2 03/28/17 11:00 102.3 86 20 108/56 (73) 96 Room Air 102.3 Assessment & Plan ESRD: Seen on HD; Harpal well: 177/87 104 101.4 Dialysis as below F 180 NR 4.0 Hrs 3 K 2.5 Ca 140 Na 35 HC03 Qb 350 + Qd 500+ Heparin 0 Units Uf 3-4 Kgs or to dry weight as tolerated May give 25-50 gms of 25% Albumin if needed to maintain Hemodynamic stability Treatment plan reviewed and 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 HTN: Current BP meds reviewed. See orders for changes. Bone & Mineral: follow phos and alter binder regimen as needed ? infected foot wound - D/w Dr Huerta - IV Abx discussed. after IV Access (per IR) Hypoalbuminemia - suspect due to ch Wound Discussed Plan of Care and prognosis etc. at length with family. Labs Labs Laboratory Tests Test 03/27/17 10:19 03/27/17 15:30 03/27/17 20:43 03/28/17 00:00 White Blood Count 10.4 x10^3/uL (4.0-11.0) Red Blood Count 3.36 x10^6/uL (4.30-5.70) Hemoglobin 10.3 g/dL (13.0-17.5) Hematocrit 31.2 % (39.0-53.0) Mean Corpuscular Volume 93 fL (79-100) Mean Corpuscular Hemoglobin 31 pg (25-35) Mean Corpuscular Hemoglobin Concent 33 g/dL (31-37) Red Cell Distribution Width 16.0 % (11.5-14.5) Platelet Count 162 x10^3/uL (140-400) Neutrophils (%) (Auto) 79 % (31-73) Lymphocytes (%) (Auto) 9 % (24-48) Monocytes (%) (Auto) 10 % (0-9) Eosinophils (%) (Auto) 1 % (0-3) Basophils (%) (Auto) 1 % (0-3) Neutrophils # (Auto) 8.2 x10^3uL (1.8-7.7) Lymphocytes # (Auto) 0.9 x10^3/uL (1.0-4.8) Monocytes # (Auto) 1.1 x10^3/uL (0.0-1.1) Eosinophils # (Auto) 0.1 x10^3/uL (0.0-0.7) Basophils # (Auto) 0.1 x10^3/uL (0.0-0.2) Prothrombin Time 14.3 SEC (11.7-14.0) Prothromb Time International Ratio 1.2 (0.8-1.1) Sodium Level 137 mmol/L (136-145) Potassium Level 4.0 mmol/L (3.5-5.1) Chloride Level 100 mmol/L (98-107) Carbon Dioxide Level 25 mmol/L (21-32) Anion Gap 12 (6-14) Blood Urea Nitrogen 64 mg/dL (8-26) Creatinine 4.6 mg/dL (0.7-1.3) Estimated GFR (Cockcroft-Gault) 16.4 BUN/Creatinine Ratio 14 (6-20) Glucose Level 134 mg/dL (70-99) Lactic Acid Level 0.9 mmol/L (0.4-2.0) Calcium Level 8.8 mg/dL (8.5-10.1) Total Bilirubin 1.1 mg/dL (0.2-1.0) Aspartate Amino Transf (AST/SGOT) 17 U/L (15-37) Alanine Aminotransferase (ALT/SGPT) 16 U/L (16-63) Alkaline Phosphatase 86 U/L (46-116) C-Reactive Protein, Quantitative 62.5 mg/L (0-3.3) Total Protein 7.4 g/dL (6.4-8.2) Albumin 2.9 g/dL (3.4-5.0) Albumin/Globulin Ratio 0.6 (1.0-1.7) Erythrocyte Sedimentation Rate 93 (0-15) Glucose (Fingerstick) 135 mg/dL (70-99) Urine Collection Type Unknown Urine Color Yellow Urine Clarity Clear Urine pH 6.5 Urine Specific [place] 1.015 Urine Protein >=300 mg/dL (NEG-TRACE) Urine Glucose (UA) 100 mg/dL (NEG) Urine Ketones (Stick) Negative mg/dL (NEG) Urine Blood Negative (NEG) Urine Nitrite Negative (NEG) Urine Bilirubin Negative (NEG) Urine Urobilinogen Dipstick 1.0 mg/dL (0.2 mg/dL) Urine Leukocyte Esterase Negative (NEG) Urine RBC 6-10 /HPF (0-2) Urine WBC 1-4 /HPF (0-4) Urine Squamous Epithelial Cells Few /LPF Urine Bacteria 0 /HPF (0-FEW) Urine Hyaline Casts Few /HPF Test 03/28/17 07:21 03/28/17 09:10 03/28/17 11:06 Glucose (Fingerstick) 141 mg/dL (70-99) 153 mg/dL (70-99) White Blood Count 7.4 x10^3/uL (4.0-11.0) Red Blood Count 3.54 x10^6/uL (4.30-5.70) Hemoglobin 10.7 g/dL (13.0-17.5) Hematocrit 33.2 % (39.0-53.0) Mean Corpuscular Volume 94 fL (79-100) Mean Corpuscular Hemoglobin 30 pg (25-35) Mean Corpuscular Hemoglobin Concent 32 g/dL (31-37) Red Cell Distribution Width 16.4 % (11.5-14.5) Platelet Count 184 x10^3/uL (140-400) Neutrophils (%) (Auto) 82 % (31-73) Lymphocytes (%) (Auto) 6 % (24-48) Monocytes (%) (Auto) 10 % (0-9) Eosinophils (%) (Auto) 1 % (0-3) Basophils (%) (Auto) 1 % (0-3) Neutrophils # (Auto) 6.1 x10^3uL (1.8-7.7) Lymphocytes # (Auto) 0.5 x10^3/uL (1.0-4.8) Monocytes # (Auto) 0.7 x10^3/uL (0.0-1.1) Eosinophils # (Auto) 0.0 x10^3/uL (0.0-0.7) Basophils # (Auto) 0.1 x10^3/uL (0.0-0.2) Sodium Level 135 mmol/L (136-145) Potassium Level 4.6 mmol/L (3.5-5.1) Chloride Level 99 mmol/L (98-107) Carbon Dioxide Level 28 mmol/L (21-32) Anion Gap 8 (6-14) Blood Urea Nitrogen 68 mg/dL (8-26) Creatinine 4.9 mg/dL (0.7-1.3) Estimated GFR (Cockcroft-Gault) 15.2 Glucose Level 160 mg/dL (70-99) Lactic Acid Level 1.0 mmol/L (0.4-2.0) Calcium Level 8.9 mg/dL (8.5-10.1) Laboratory Tests Test 03/27/17 15:30 03/27/17 20:43 03/28/17 00:00 03/28/17 07:21 Erythrocyte Sedimentation Rate 93 (0-15) Glucose (Fingerstick) 135 mg/dL (70-99) 141 mg/dL (70-99) Urine Collection Type Unknown Urine Color Yellow Urine Clarity Clear Urine pH 6.5 Urine Specific [place] 1.015 Urine Protein >=300 mg/dL (NEG-TRACE) Urine Glucose (UA) 100 mg/dL (NEG) Urine Ketones (Stick) Negative mg/dL (NEG) Urine Blood Negative (NEG) Urine Nitrite Negative (NEG) Urine Bilirubin Negative (NEG) Urine Urobilinogen Dipstick 1.0 mg/dL (0.2 mg/dL) Urine Leukocyte Esterase Negative (NEG) Urine RBC 6-10 /HPF (0-2) Urine WBC 1-4 /HPF (0-4) Urine Squamous Epithelial Cells Few /LPF Urine Bacteria 0 /HPF (0-FEW) Urine Hyaline Casts Few /HPF Test 03/28/17 09:10 03/28/17 11:06 White Blood Count 7.4 x10^3/uL (4.0-11.0) Red Blood Count 3.54 x10^6/uL (4.30-5.70) Hemoglobin 10.7 g/dL (13.0-17.5) Hematocrit 33.2 % (39.0-53.0) Mean Corpuscular Volume 94 fL (79-100) Mean Corpuscular Hemoglobin 30 pg (25-35) Mean Corpuscular Hemoglobin Concent 32 g/dL (31-37) Red Cell Distribution Width 16.4 % (11.5-14.5) Platelet Count 184 x10^3/uL (140-400) Neutrophils (%) (Auto) 82 % (31-73) Lymphocytes (%) (Auto) 6 % (24-48) Monocytes (%) (Auto) 10 % (0-9) Eosinophils (%) (Auto) 1 % (0-3) Basophils (%) (Auto) 1 % (0-3) Neutrophils # (Auto) 6.1 x10^3uL (1.8-7.7) Lymphocytes # (Auto) 0.5 x10^3/uL (1.0-4.8) Monocytes # (Auto) 0.7 x10^3/uL (0.0-1.1) Eosinophils # (Auto) 0.0 x10^3/uL (0.0-0.7) Basophils # (Auto) 0.1 x10^3/uL (0.0-0.2) Sodium Level 135 mmol/L (136-145) Potassium Level 4.6 mmol/L (3.5-5.1) Chloride Level 99 mmol/L (98-107) Carbon Dioxide Level 28 mmol/L (21-32) Anion Gap 8 (6-14) Blood Urea Nitrogen 68 mg/dL (8-26) Creatinine 4.9 mg/dL (0.7-1.3) Estimated GFR (Cockcroft-Gault) 15.2 Glucose Level 160 mg/dL (70-99) Lactic Acid Level 1.0 mmol/L (0.4-2.0) Calcium Level 8.9 mg/dL (8.5-10.1) Glucose (Fingerstick) 153 mg/dL (70-99) Images Images Impression: 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 There is soft tissue edema without subcutaneous gas or extensive osseous erosion. Limited evaluation of the left costophrenic angle as it is excluded on this radiograph. Otherwise, no acute cardiopulmonary process. MYRON LIANG MD Mar 28, 2017 13:04
[2017-03-28] MEDS ORDERED: ACETAMINOPHEN 500 MG TABLET PO PRN (13:15)
[2017-03-28] MEDS ORDERED: DIALYSIS PATIENT. MC PRN (13:15)
[2017-03-28] MEDS ORDERED: LABETALOL 20 MG/4 ML DISP.SYRIN. IVP PRN (13:15)
[2017-03-28] MEDS ORDERED: ALBUMIN HUMAN 25% 200 ML IV PRN (13:15)
[2017-03-28] MEDS ORDERED: IV NORMAL SALINE 1000ML BAG 1,000 ML IV PRN (13:15)
[2017-03-28] MEDS ORDERED: cloNIDine HCL 0.1 MG TABLET PO PRN (13:15)
[2017-03-28] MEDS ORDERED: diphenhydrAMINE 50 MG/ML VIAL IV PRN (13:15)
[2017-03-28] MEDS ORDERED: MAGNESIUM SULFATE 2GM 50 ML IV PRN (13:30)
--- NOTE | 2017-03-28 13:40 | PDOC ---
PROGRESS NOTES Chief Complaint Chief Complaint Staph BACTEREMIA 1. Fevers - no other IV aside form Peripheral IV 2. LEft foot post op wound, gaping sutures, subcutaneous edema around - CRP 62, fevers 3. ESRD on HD TTHS 4. Anemia of CKD 5. Obesity BMI 37 6. Hx Left foot infected wound with osteomyelitis. Enterobacter. s/p TMA, closed wound , 03/02 7. Hypothyroidism chronic 8. History of coronary artery disease 9. History of DVT's on warfarin 11. History of chronic back pain 12. Paroxysmal atrial fibrillation 13. Obesity 14. 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, depending on results might need re opening of wound PLAN: Abx per ID HD per renal TCOM per ortho CPM Follow temps and BC PT/OT Dw RN Prab LAbs Vitals Vitals Vital Signs Date Time Temp Pulse Resp B/P (MAP) Pulse Ox O2 Delivery O2 Flow Rate FiO2 03/28/17 11:00 102.3 86 20 108/56 (73) 96 Room Air 102.3 Physical Exam General: Alert, Oriented X3, Cooperative, No acute distress Heart: Regular rate Lungs: Clear Abdomen: Soft Extremities: No clubbing, No cyanosis, Normal pulses Skin: No rashes Labs LABS Laboratory Tests Test 03/27/17 15:30 03/27/17 20:43 03/28/17 00:00 03/28/17 07:21 Erythrocyte Sedimentation Rate 93 (0-15) Glucose (Fingerstick) 135 mg/dL (70-99) 141 mg/dL (70-99) Urine Collection Type Unknown Urine Color Yellow Urine Clarity Clear Urine pH 6.5 Urine Specific [place] 1.015 Urine Protein >=300 mg/dL (NEG-TRACE) Urine Glucose (UA) 100 mg/dL (NEG) Urine Ketones (Stick) Negative mg/dL (NEG) Urine Blood Negative (NEG) Urine Nitrite Negative (NEG) Urine Bilirubin Negative (NEG) Urine Urobilinogen Dipstick 1.0 mg/dL (0.2 mg/dL) Urine Leukocyte Esterase Negative (NEG) Urine RBC 6-10 /HPF (0-2) Urine WBC 1-4 /HPF (0-4) Urine Squamous Epithelial Cells Few /LPF Urine Bacteria 0 /HPF (0-FEW) Urine Hyaline Casts Few /HPF Test 03/28/17 09:10 03/28/17 11:06 White Blood Count 7.4 x10^3/uL (4.0-11.0) Red Blood Count 3.54 x10^6/uL (4.30-5.70) Hemoglobin 10.7 g/dL (13.0-17.5) Hematocrit 33.2 % (39.0-53.0) Mean Corpuscular Volume 94 fL (79-100) Mean Corpuscular Hemoglobin 30 pg (25-35) Mean Corpuscular Hemoglobin Concent 32 g/dL (31-37) Red Cell Distribution Width 16.4 % (11.5-14.5) Platelet Count 184 x10^3/uL (140-400) Neutrophils (%) (Auto) 82 % (31-73) Lymphocytes (%) (Auto) 6 % (24-48) Monocytes (%) (Auto) 10 % (0-9) Eosinophils (%) (Auto) 1 % (0-3) Basophils (%) (Auto) 1 % (0-3) Neutrophils # (Auto) 6.1 x10^3uL (1.8-7.7) Lymphocytes # (Auto) 0.5 x10^3/uL (1.0-4.8) Monocytes # (Auto) 0.7 x10^3/uL (0.0-1.1) Eosinophils # (Auto) 0.0 x10^3/uL (0.0-0.7) Basophils # (Auto) 0.1 x10^3/uL (0.0-0.2) Sodium Level 135 mmol/L (136-145) Potassium Level 4.6 mmol/L (3.5-5.1) Chloride Level 99 mmol/L (98-107) Carbon Dioxide Level 28 mmol/L (21-32) Anion Gap 8 (6-14) Blood Urea Nitrogen 68 mg/dL (8-26) Creatinine 4.9 mg/dL (0.7-1.3) Estimated GFR (Cockcroft-Gault) 15.2 Glucose Level 160 mg/dL (70-99) Lactic Acid Level 1.0 mmol/L (0.4-2.0) Calcium Level 8.9 mg/dL (8.5-10.1) Glucose (Fingerstick) 153 mg/dL (70-99) Review of Systems Review of Systems left foot pain, fevers, all esle neg Assessment and Plan Assessmemt and Plan Problems Medical Problems: (1) End stage renal disease Status: Acute (2) Fever Status: Acute Problems: Comment Review of Relevant I have reviewed the following items lila (where applicable) has been applied. Labs Laboratory Tests Test 03/27/17 10:19 03/27/17 15:30 03/27/17 20:43 03/28/17 00:00 White Blood Count 10.4 x10^3/uL (4.0-11.0) Red Blood Count 3.36 x10^6/uL (4.30-5.70) Hemoglobin 10.3 g/dL (13.0-17.5) Hematocrit 31.2 % (39.0-53.0) Mean Corpuscular Volume 93 fL (79-100) Mean Corpuscular Hemoglobin 31 pg (25-35) Mean Corpuscular Hemoglobin Concent 33 g/dL (31-37) Red Cell Distribution Width 16.0 % (11.5-14.5) Platelet Count 162 x10^3/uL (140-400) Neutrophils (%) (Auto) 79 % (31-73) Lymphocytes (%) (Auto) 9 % (24-48) Monocytes (%) (Auto) 10 % (0-9) Eosinophils (%) (Auto) 1 % (0-3) Basophils (%) (Auto) 1 % (0-3) Neutrophils # (Auto) 8.2 x10^3uL (1.8-7.7) Lymphocytes # (Auto) 0.9 x10^3/uL (1.0-4.8) Monocytes # (Auto) 1.1 x10^3/uL (0.0-1.1) Eosinophils # (Auto) 0.1 x10^3/uL (0.0-0.7) Basophils # (Auto) 0.1 x10^3/uL (0.0-0.2) Prothrombin Time 14.3 SEC (11.7-14.0) Prothromb Time International Ratio 1.2 (0.8-1.1) Sodium Level 137 mmol/L (136-145) Potassium Level 4.0 mmol/L (3.5-5.1) Chloride Level 100 mmol/L (98-107) Carbon Dioxide Level 25 mmol/L (21-32) Anion Gap 12 (6-14) Blood Urea Nitrogen 64 mg/dL (8-26) Creatinine 4.6 mg/dL (0.7-1.3) Estimated GFR (Cockcroft-Gault) 16.4 BUN/Creatinine Ratio 14 (6-20) Glucose Level 134 mg/dL (70-99) Lactic Acid Level 0.9 mmol/L (0.4-2.0) Calcium Level 8.8 mg/dL (8.5-10.1) Total Bilirubin 1.1 mg/dL (0.2-1.0) Aspartate Amino Transf (AST/SGOT) 17 U/L (15-37) Alanine Aminotransferase (ALT/SGPT) 16 U/L (16-63) Alkaline Phosphatase 86 U/L (46-116) C-Reactive Protein, Quantitative 62.5 mg/L (0-3.3) Total Protein 7.4 g/dL (6.4-8.2) Albumin 2.9 g/dL (3.4-5.0) Albumin/Globulin Ratio 0.6 (1.0-1.7) Erythrocyte Sedimentation Rate 93 (0-15) Glucose (Fingerstick) 135 mg/dL (70-99) Urine Collection Type Unknown Urine Color Yellow Urine Clarity Clear Urine pH 6.5 Urine Specific [place] 1.015 Urine Protein >=300 mg/dL (NEG-TRACE) Urine Glucose (UA) 100 mg/dL (NEG) Urine Ketones (Stick) Negative mg/dL (NEG) Urine Blood Negative (NEG) Urine Nitrite Negative (NEG) Urine Bilirubin Negative (NEG) Urine Urobilinogen Dipstick 1.0 mg/dL (0.2 mg/dL) Urine Leukocyte Esterase Negative (NEG) Urine RBC 6-10 /HPF (0-2) Urine WBC 1-4 /HPF (0-4) Urine Squamous Epithelial Cells Few /LPF Urine Bacteria 0 /HPF (0-FEW) Urine Hyaline Casts Few /HPF Test 03/28/17 07:21 03/28/17 09:10 03/28/17 11:06 Glucose (Fingerstick) 141 mg/dL (70-99) 153 mg/dL (70-99) White Blood Count 7.4 x10^3/uL (4.0-11.0) Red Blood Count 3.54 x10^6/uL (4.30-5.70) Hemoglobin 10.7 g/dL (13.0-17.5) Hematocrit 33.2 % (39.0-53.0) Mean Corpuscular Volume 94 fL (79-100) Mean Corpuscular Hemoglobin 30 pg (25-35) Mean Corpuscular Hemoglobin Concent 32 g/dL (31-37) Red Cell Distribution Width 16.4 % (11.5-14.5) Platelet Count 184 x10^3/uL (140-400) Neutrophils (%) (Auto) 82 % (31-73) Lymphocytes (%) (Auto) 6 % (24-48) Monocytes (%) (Auto) 10 % (0-9) Eosinophils (%) (Auto) 1 % (0-3) Basophils (%) (Auto) 1 % (0-3) Neutrophils # (Auto) 6.1 x10^3uL (1.8-7.7) Lymphocytes # (Auto) 0.5 x10^3/uL (1.0-4.8) Monocytes # (Auto) 0.7 x10^3/uL (0.0-1.1) Eosinophils # (Auto) 0.0 x10^3/uL (0.0-0.7) Basophils # (Auto) 0.1 x10^3/uL (0.0-0.2) Sodium Level 135 mmol/L (136-145) Potassium Level 4.6 mmol/L (3.5-5.1) Chloride Level 99 mmol/L (98-107) Carbon Dioxide Level 28 mmol/L (21-32) Anion Gap 8 (6-14) Blood Urea Nitrogen 68 mg/dL (8-26) Creatinine 4.9 mg/dL (0.7-1.3) Estimated GFR (Cockcroft-Gault) 15.2 Glucose Level 160 mg/dL (70-99) Lactic Acid Level 1.0 mmol/L (0.4-2.0) Calcium Level 8.9 mg/dL (8.5-10.1) Laboratory Tests Test 03/27/17 15:30 03/27/17 20:43 03/28/17 00:00 03/28/17 07:21 Erythrocyte Sedimentation Rate 93 (0-15) Glucose (Fingerstick) 135 mg/dL (70-99) 141 mg/dL (70-99) Urine Collection Type Unknown Urine Color Yellow Urine Clarity Clear Urine pH 6.5 Urine Specific [place] 1.015 Urine Protein >=300 mg/dL (NEG-TRACE) Urine Glucose (UA) 100 mg/dL (NEG) Urine Ketones (Stick) Negative mg/dL (NEG) Urine Blood Negative (NEG) Urine Nitrite Negative (NEG) Urine Bilirubin Negative (NEG) Urine Urobilinogen Dipstick 1.0 mg/dL (0.2 mg/dL) Urine Leukocyte Esterase Negative (NEG) Urine RBC 6-10 /HPF (0-2) Urine WBC 1-4 /HPF (0-4) Urine Squamous Epithelial Cells Few /LPF Urine Bacteria 0 /HPF (0-FEW) Urine Hyaline Casts Few /HPF Test 03/28/17 09:10 03/28/17 11:06 White Blood Count 7.4 x10^3/uL (4.0-11.0) Red Blood Count 3.54 x10^6/uL (4.30-5.70) Hemoglobin 10.7 g/dL (13.0-17.5) Hematocrit 33.2 % (39.0-53.0) Mean Corpuscular Volume 94 fL (79-100) Mean Corpuscular Hemoglobin 30 pg (25-35) Mean Corpuscular Hemoglobin Concent 32 g/dL (31-37) Red Cell Distribution Width 16.4 % (11.5-14.5) Platelet Count 184 x10^3/uL (140-400) Neutrophils (%) (Auto) 82 % (31-73) Lymphocytes (%) (Auto) 6 % (24-48) Monocytes (%) (Auto) 10 % (0-9) Eosinophils (%) (Auto) 1 % (0-3) Basophils (%) (Auto) 1 % (0-3) Neutrophils # (Auto) 6.1 x10^3uL (1.8-7.7) Lymphocytes # (Auto) 0.5 x10^3/uL (1.0-4.8) Monocytes # (Auto) 0.7 x10^3/uL (0.0-1.1) Eosinophils # (Auto) 0.0 x10^3/uL (0.0-0.7) Basophils # (Auto) 0.1 x10^3/uL (0.0-0.2) Sodium Level 135 mmol/L (136-145) Potassium Level 4.6 mmol/L (3.5-5.1) Chloride Level 99 mmol/L (98-107) Carbon Dioxide Level 28 mmol/L (21-32) Anion Gap 8 (6-14) Blood Urea Nitrogen 68 mg/dL (8-26) Creatinine 4.9 mg/dL (0.7-1.3) Estimated GFR (Cockcroft-Gault) 15.2 Glucose Level 160 mg/dL (70-99) Lactic Acid Level 1.0 mmol/L (0.4-2.0) Calcium Level 8.9 mg/dL (8.5-10.1) Glucose (Fingerstick) 153 mg/dL (70-99) Microbiology 03/27/17 Blood Culture - Final, Complete Medications Current Medications Morphine Sulfate 4 mg 1X ONCE IV Last administered on 03/27/17 10:11; Start 03/27/17 at 10:00; Stop 03/27/17 at 10:05; Status DC Morphine Sulfate 4 mg PRN Q4HRS PRN IV PAIN Last administered on 03/28/17 05: 19; Start 03/27/17 at 13:30 Ondansetron HCl (Zofran) 4 mg PRN Q6HRS PRN IV NAUSEA/VOMITING; Start 03/27/17 at 15:15 Acetaminophen/ Hydrocodone Bitart (Lortab 10/325) 1 tab PRN Q6HRS PRN PO PAIN Last administered on 03/28/17 00:14; Start 03/27/17 at 15:15 Acetaminophen (Tylenol) 500 mg PRN Q6HRS PRN PO MILD PAIN / TEMP Last administered on 03/28/17 08:55; Start 03/27/17 at 15:15 Alprazolam (Xanax) 0.25 mg QID PRN PO ANXIETY / AGITATION; Start 03/27/17 at 15 :30 Calcium Carbonate/ Glycine (Oscal) 500 mg TIDWMEALS PO Last administered on 12:18; Start 03/27/17 at 17:00 Citalopram Hydrobromide (CeleXA) 20 mg DAILY PO Last administered on 03/28/17 08:57; Start 03/28/17 at 09:00 Clopidogrel Bisulfate (Plavix) 75 mg DAILY07 PO Last administered on 03/28/17 08:55; Start 03/28/17 at 07:00 Darbepoetin Jace (Aranesp) 100 mcg WEEKLY SQ ; Start 04/03/17 at 09:00; Status UNV Dexamethasone (Maxidex) 1 drop TID OS ; Start 03/27/17 at 21:00; Status Cancel Diclofenac Sodium (Voltaren) 1 ayaz BID TP ; Start 03/27/17 at 21:00 Ergocalciferol (Vitamin D2) 50,000 unit WEEKLY PO ; Start 04/03/17 at 09:00 Famotidine (Pepcid) 20 mg HS PO Last administered on 03/27/17 21:33; Start at 21:00 Vitamin B Complex/ Vitamin C (Fernanda-Jimmy) 1 tab DAILY PO Last administered on 08:55; Start 03/28/17 at 09:00 Isosorbide Mononitrate (Imdur) 30 mg DAILY PO Last administered on 03/28/17 08 :56; Start 03/28/17 at 09:00 Ketorolac Tromethamine (Acular) 1 drop BID OS ; Start 03/27/17 at 21:00; Status Cancel Levetiracetam (Keppra) 500 mg BID PO Last administered on 03/28/17 08:57; Start 03/27/17 at 21:00 Levothyroxine Sodium (Synthroid) 175 mcg DAILY07 PO Last administered on 08:56; Start 03/28/17 at 07:00 Lidocaine (Lidoderm) 1 patch DAILY TD ; Start 03/28/17 at 09:00 Meclizine HCl (Antivert) 12.5 mg TID PO Last administered on 03/28/17 08:56; Start 03/27/17 at 21:00 Metoprolol Tartrate (Lopressor) 50 mg BID PO Last administered on 03/28/17 08: 56; Start 03/27/17 at 21:00 Nitroglycerin (Nitrostat) 0.4 mg PRN Q5MIN PRN SL CHEST PAIN; Start 03/27/17 at 15:30 Ropinirole HCl (Requip) 0.25 mg QHS PO Last administered on 03/27/17 21:33; Start 03/27/17 at 21:00 Sevelamer Carbonate (Renvela) 2,400 mg TIDWMEALS PO Last administered on 12:19; Start 03/27/17 at 17:00 Sodium Bicarbonate (Sodium Bicarbonate) 1,300 mg BID PO Last administered on 08:56; Start 03/27/17 at 21:00 Sucralfate (Carafate) 1 gm BID PO Last administered on 03/28/17 08:57; Start 03/27/17 at 21:00 Trazodone HCl (Desyrel) 50 mg QHS PRN PO sleep; Start 03/27/17 at 15:30 Warfarin Sodium (Coumadin) 5 mg DAILY16 PO ; Start 03/28/17 at 16:00 Zolpidem Tartrate (Ambien) 5 mg HS PRN PO sleep; Start 03/27/17 at 15:30 Non-Formulary Medication 1 puff Q6HRS PRN INH SHORTNESS OF BREATH; Start at 15:30; Status UNV Atorvastatin Calcium (Lipitor) 80 mg QHS PO Last administered on 03/27/17 21: 32; Start 03/27/17 at 21:00 Non-Formulary Medication 5 ml DAILY LEFTEYE ; Start 03/28/17 at 09:00; Status UNV Non-Formulary Medication 1 drop Q1HR OS ; Start 03/27/17 at 16:00; Status UNV Risperidone (RisperDAL) 0.5 mg QHS PO Last administered on 03/27/17 21:33; Start 03/27/17 at 21:00 Albuterol Sulfate (Ventolin Neb Soln) 2.5 mg PRN Q6HRS PRN NEB SHORTNESS OF BREATH Last administered on 03/27/17 19:49; Start 03/27/17 at 16:00 Warfarin Sodium (Coumadin Per Physician) 1 each PRN DAILY PRN MC SEE COMMENTS; Start 03/27/17 at 16:15 Vancomycin HCl (Vanco Per Pharmacy) 1 each PRN DAILY PRN MC SEE COMMENTS; Start 03/28/17 at 08:15 Linezolid (Zyvox) 600 mg ONCE ONCE PO Last administered on 03/28/17 08:53; Start 03/28/17 at 08:15; Stop 03/28/17 at 08:21; Status DC Meropenem 1 gm/ Sodium Chloride 100 ml @ 200 mls/hr DAILY IV ; Start 03/28/17 at 08:30; Stop 03/28/17 at 08:30; Status DC Gentamicin Sulfate 1 each ONCE ONCE MC ; Start 03/28/17 at 08:15; Stop at 08:33; Status DC Meropenem 1 gm/ Sodium Chloride 100 ml @ 200 mls/hr DAILY IV Last administered on 03/28/17 08:58; Start 03/28/17 at 08:30 Micafungin Sodium 100 mg/Dextrose 100 ml @ 100 mls/hr Q24H IV ; Start 03/28/17 at 10:00 Vancomycin HCl 2 gm/Sodium Chloride 500 ml @ 250 mls/hr ONCE ONCE IV Last administered on 03/28/17 11:20; Start 03/28/17 at 09:00; Stop 03/28/17 at 10:59 ; Status DC Gentamicin Sulfate 280 mg/ Sodium Chloride 107 ml @ 107 mls/hr ONCE ONCE IV ; Start 03/28/17 at 09:00; Stop 03/28/17 at 09:59; Status DC Magnesium Sulfate/ Dextrose 50 ml @ 25 mls/hr PRN DAILY PRN IV for Mag < 1.7 on am labs; Start 03/28/17 at 13:30 Sodium Chloride 1,000 ml @ 1,000 mls/hr Q1H PRN IV hypotension; Start 03/28/17 at 13:15; Stop 03/28/17 at 19:14 Albumin Human 200 ml @ 200 mls/hr 1X PRN PRN IV Hypotension; Start 03/28/17 at 13:15; Stop 03/28/17 at 19:14 Acetaminophen (Tylenol) 500 mg 1X PRN PRN PO MILD PAIN / TEMP; Start 03/28/17 at 13:15; Stop 8/17/17 at 13:14 Diphenhydramine HCl (Benadryl) 25 mg 1X PRN PRN IV ITCHING; Start 03/28/17 at 13:15; Stop 03/29/17 at 13:14 Labetalol HCl (Normodyne) 10 mg PRN Q1HR PRN IVP SBP > 180; Start 03/28/17 at 13:15; Stop 03/29/17 at 13:14 Clonidine HCl (Catapres) 0.1 mg 1X PRN PRN PO SBP > 180; Start 03/28/17 at 13: 15; Stop 03/29/17 at 13:14 Info (PHARMACY MONITORING -- do not chart) 1 each PRN DAILY PRN MC SEE COMMENTS ; Start 03/28/17 at 13:15 Lidocaine HCl 20 ml ONCE ONCE IJ ; Start 03/28/17 at 13:45; Stop 03/28/17 at 13 :46 Active Scripts Active Levetiracetam 500 Mg Tablet 500 Mg PO BID Lidoderm (Lidocaine) 700 Mg Adh..patch 1 Patch TD DAILY Metoprolol Tartrate 50 Mg Tablet 50 Mg PO BID Synthroid (Levothyroxine Sodium) 175 Mcg Tablet 175 Mcg PO DAILY07 Isosorbide Mononitrate Er (Isosorbide Mononitrate) 30 Mg Tab.er.24h 30 Mg PO DAILY Reported Sodium Bicarbonate 650 Mg Tablet 2 Tab PO BID on dialysis days sunday, and sunday Meclizine Hcl 12.5 Mg Tablet 1 Tab PO TID Calcium Carbonate 500 Mg Tablet 500 Mg PO TIDWMEALS Ambien (Zolpidem Tartrate) 5 Mg Tablet 5 Mg PO HS PRN Alprazolam 0.25 Mg Tablet 1 Tab PO PRN Ventolin Hfa Inhaler (Albuterol Sulfate) 18 Gm Hfa.aer.ad 1 Puff INH Q6HRS PRN Ropinirole Hcl 0.25 Mg Tablet 0.25 Mg PO Citalopram Hbr (Citalopram Hydrobromide) 20 Mg Tablet 1 Tab PO DAILY Trazodone Hcl 50 Mg Tablet 0.5-1 Tab PO QHS Risperidone 0.5 Mg Tablet 1 Tab PO QHS Famotidine 20 Mg Tablet 20 Mg PO HS Coumadin (Warfarin Sodium) 5 Mg Tablet 1 Tab PO DAILY Nephro-Jimmy Tablet (Folic Acid/Vitamin B Comp W-C) 0.8 Mg Tablet 1 Tab PO DAILY Carafate (Sucralfate) 1 Gm Tablet 1 Tab PO BID Nitrostat (Nitroglycerin) 0.4 Mg Tab.subl 0.4 Mg SL PRN Q5MIN PRN Voltaren (Diclofenac Sodium) 100 Gm Gel..gram. 1 Gm TP BID Clopidogrel (Clopidogrel Bisulfate) 75 Mg Tablet 75 Mg PO DAILY07 Renvela (Sevelamer Carbonate) 800 Mg Tablet 2,400 Tab PO TIDWMEALS Vitamin D2 (Ergocalciferol (Vitamin D2)) 50,000 Unit Capsule 50,000 Unit PO WEEKLY weekly on Sunday Atorvastatin Calcium 80 Mg Tablet 80 Mg PO HS Vitals/I & O Vital Sign - Last 24 Hours 03/27/17 03/27/17 03/27/17 03/27/17 13:46 15:14 17:59 19:00 Temp 99.0 99.9 99.0 99.9 Pulse 86 95 Resp 18 18 20 B/P (MAP) 137/93 (108) 197/92 (127) Pulse Ox 97 98 95 O2 Delivery Room Air Room Air Room Air 03/27/17 03/27/17 03/27/17 03/27/17 19:50 20:00 21:33 23:00 Temp 100.4 100.4 Pulse 95 107 Resp 20 B/P (MAP) 197/92 177/88 (117) Pulse Ox 98 95 O2 Delivery Room Air Room Air Room Air 03/28/17 03/28/17 03/28/17 03/28/17 00:14 01:14 03:01 05:19 Temp 99.7 99.7 Pulse 81 Resp 20 18 20 24 B/P (MAP) 127/62 (83) Pulse Ox 95 95 95 95 O2 Delivery Room Air Room Air Room Air Room Air 03/28/17 03/28/17 03/28/17 03/28/17 05:49 07:00 08:00 08:56 Temp 102.2 102.2 Pulse 101 101 Resp 20 20 B/P (MAP) 162/89 (113) 162/89 Pulse Ox 98 98 O2 Delivery Room Air Room Air Room Air 03/28/17 03/28/17 08:56 11:00 Temp 102.3 102.3 Pulse 101 86 Resp 20 B/P (MAP) 162/89 108/56 (73) Pulse Ox 96 O2 Delivery Room Air Intake and Output 03/27/17 03/27/17 03/28/17 15:00 23:00 07:00 Intake Total 250 ml 250 ml Output Total 600 ml Balance 250 ml -350 ml ANDRAE ROA MD Mar 28, 2017 13:40
[2017-03-28] MEDS ORDERED: LIDOCAINE 1% 20 ML VIAL. IJ ONE (13:45)
[2017-03-28 13:59] LABS: INR 1.1 (0.8-1.1); PROTHROMBIN TIME PATIENT 13.4 SEC (11.7-14.0)
[2017-03-28] MEDS ORDERED: WARFARIN 7.5 MG TABLET. PO ONE (16:00)
[2017-03-28] MEDS: MICAFUNGIN 100 MG in IV DEXTROSE 5% 100 ML IV SCH (17:30)
[2017-03-28] MEDS: VANCOMYCIN PER PHARMACY MC PRN (17:52)
--- NOTE | 2017-03-28 18:39 | CONS ---
DATE OF CONSULTATION: PRIMARY PHYSICIAN: Dr. Diaz. REASON FOR CONSULTATION: ESRD dialysis. HISTORY OF PRESENT ILLNESS: The patient is a 51-year-old -[place] gentleman, has had numerous hospitalizations here, he was here about few weeks ago and had amputation to his left foot by Orthopedics. He has been having fevers from 100.5 to 105 as documented in the ER notes. He had come to the dialysis unit yesterday with wound dehiscence. He was scheduled to see the wound care clinic today. For the same, he had home health care come and check on his wounds once a week by his report, when he was noted to be febrile at dialysis unit, he be recommended to be sent to the ER. In the ER, he was afebrile, but continued to spike fevers in the hospital. He has been evaluated by Dr. Gomez, antibiotics have been started based on that. He did miss his dialysis yesterday and hence will be set up for the same today and will continue on Sunday, , Sunday schedule. He has not missed dialysis by his reports. MYRON LIANG MD DR: DOROTEO/roni JOB#: [id number] / [id number]
[2017-03-28 19:44] VITALS: BP 150/83
[2017-03-28] MEDS: rOPINIRole 0.25 MG TABLET. PO SCH (20:01)
[2017-03-28] MEDS: ATORVASTATIN CALCIUM 40 MG TABLET. PO SCH (20:01)
[2017-03-28] MEDS: risperiDONE 0.25 MG TABLET. PO SCH (20:02)
[2017-03-28] MEDS: FAMOTIDINE 20 MG TABLET. PO SCH (20:02)
[2017-03-28] MEDS: WARFARIN 5 MG TABLET. PO SCH (20:02)
[2017-03-28 20:24] LABS: BILIRUBIN,URINE NEGATIVE (NEG); GLUCOSE,URINE NEGATIVE (NEG); NITRITE,URINE NEGATIVE (NEG); PROTEIN,URINE >=300 mg/dL (NEG-TRACE)
[2017-03-28 20:36] LABS: BACTERIA,URINE 0 /HPF (0-FEW); SQUAMOUS EPITHELIAL CELL,UR FEW /LPF; WBC,URINE OCC /HPF (0-4)
[2017-03-28 23:01] VITALS: BP 139/76
[2017-03-29 02:46] VITALS: BP 176/87
[2017-03-29] MEDS: ACETAMINOPHEN 500 MG TABLET PO PRN ×3 (04:45→17:29)
[2017-03-29 05:51] LABS: BASO # 0.1 x10^3/uL (0.0-0.2); BASO % 1 % (0-3); EOS % 0 % (0-3); HEMATOCRIT 32.8 % (39.0-53.0); HEMOGLOBIN 10.6 g/dL (13.0-17.5); LYMPH # 0.4 x10^3/uL (1.0-4.8); LYMPH % 6 % (24-48); MEAN CORPUSCULAR HEMOGLOBIN 31 pg (25-35); MEAN CORPUSCULAR HGB CONC 33 g/dL (31-37); MEAN CORPUSCULAR VOLUME 94 fL (79-100); MONO % 8 % (0-9); NEUT % 85 % (31-73); PLATELET COUNT 160 x10^3/uL (140-400); RED BLOOD COUNT 3.49 x10^6/uL (4.30-5.70); RED CELL DISTRIBUTION WIDTH 16.2 % (11.5-14.5); WHITE BLOOD COUNT 6.4 x10^3/uL (4.0-11.0)
[2017-03-29 05:57] LABS: INR 1.3 (0.8-1.1); PROTHROMBIN TIME PATIENT 15.3 SEC (11.7-14.0)
[2017-03-29] MEDS ORDERED: VANCOMYCIN RANDOM LEVEL. MC ONE (06:00)
[2017-03-29 06:13] LABS: ALBUMIN 2.8 g/dL (3.4-5.0); CALCIUM 8.7 mg/dL (8.5-10.1); CREATININE 4.6 mg/dL (0.7-1.3); GFR 16.4; MAGNESIUM 1.9 mg/dL (1.8-2.4); PHOSPHORUS 3.3 mg/dL (2.6-4.7); POTASSIUM 4.5 mmol/L (3.5-5.1)
[2017-03-29] MEDS: LEVOTHYROXINE 175 MCG TABLET PO SCH (06:14)
[2017-03-29] MEDS: CLOPIDOGREL BISULFATE 75 MG TABLET PO SCH (06:14)
[2017-03-29 07:00] VITALS: BP 134/71
[2017-03-29] MEDS: CITALOPRAM 20 MG TABLET. PO SCH (08:23)
[2017-03-29] MEDS: CALCIUM CARBONATE 500 MG TABLET PO SCH ×3 (08:23→17:29)
[2017-03-29] MEDS: SUCRALFATE 1 GM TABLET. PO SCH ×2 (08:23→21:54)
[2017-03-29] MEDS: MECLIZINE HCL 12.5 MG TABLET. PO SCH ×3 (08:23→20:49)
[2017-03-29] MEDS: levETIRAcetam 500 MG TABLET PO SCH ×2 (08:23→20:49)
[2017-03-29] MEDS: FOLIC/VIT B COMP W-C (RENAL) TABLET. PO SCH (08:23)
[2017-03-29] MEDS: SODIUM BICARBONATE 650 MG TABLET. PO SCH ×2 (08:23→20:49)
[2017-03-29] MEDS: SEVELAMER CARBONATE 800 MG TABLET. PO SCH ×3 (08:24→17:28)
[2017-03-29] MEDS: ISOSORBIDE MONONITRATE ER 30 MG TAB.ER.24H PO SCH (08:24)
[2017-03-29] MEDS: METOPROLOL TART IMMED RELEASE 50 MG TABLET. PO SCH ×2 (08:24→20:49)
[2017-03-29] MEDS: LIDOCAINE (700MG/PATCH) PATCH. TD SCH (08:25)
[2017-03-29] MEDS: DICLOFENAC SODIUM 1% TOPICAL GEL 100GM TUBE. TP SCH ×2 (08:25→20:52)
--- NOTE | 2017-03-29 09:26 | PDOC ---
Infectious Disease Note Subjective Subjective Feel much better. Concerned about his foot Still some fever but hungry ROS ROS GEN: Denies fevers, chills, sweats HEENT: Denies blurred vision, sore throat CV: Denies chest pain RESP: Denies shortness of air, cough GI: Denies n/v/d NEURO: Denies confusion, dizziness MSK: Denies weakness, joint pain/swelling Vital Sign Vital Signs Vital Signs Date Time Temp Pulse Resp B/P (MAP) Pulse Ox O2 Delivery O2 Flow Rate FiO2 03/29/17 09:00 Room Air 03/29/17 08:24 112 134/71 03/29/17 07:00 102.4 22 95 102.4 Physical Exam PHYSICAL EXAM GENERAL: NAD, Alert, sitting on side of bed. Looks better HEENT: PERRL, OC/OP- tongue with bacterial overgrowth NECK: Supple, no JVD, no LN LUNGS: Clear HEART: S1S2, no gallop, no murmur ABD: Soft, NT, no organomegaly, no rebound, obese EXT: Left foot heavily bandaged - clean. 1 plus Bilat. LUE fistula TOP CLOSER: Alert, oriented x 3, no focal neurologic deficit SKIN: No rash IV:peripheral RUE ok Labs Lab Laboratory Tests Test 03/28/17 11:06 03/28/17 18:28 03/28/17 20:00 03/28/17 21:16 Glucose (Fingerstick) 153 mg/dL (70-99) 143 mg/dL (70-99) 143 mg/dL (70-99) Urine Collection Type Unknown Urine Color Yellow Urine Clarity Clear Urine pH 6.0 Urine Specific [place] 1.015 Urine Protein >=300 mg/dL (NEG-TRACE) Urine Glucose (UA) Negative mg/dL (NEG) Urine Ketones (Stick) Negative mg/dL (NEG) Urine Blood Negative (NEG) Urine Nitrite Negative (NEG) Urine Bilirubin Negative (NEG) Urine Urobilinogen Dipstick 1.0 mg/dL (0.2 mg/dL) Urine Leukocyte Esterase Negative (NEG) Urine RBC 3-5 /HPF (0-2) Urine WBC Occ /HPF (0-4) Urine Squamous Epithelial Cells Few /LPF Urine Amorphous Sediment Present /HPF Urine Bacteria 0 /HPF (0-FEW) Test 03/29/17 05:15 03/29/17 07:30 White Blood Count 6.4 x10^3/uL (4.0-11.0) Red Blood Count 3.49 x10^6/uL (4.30-5.70) Hemoglobin 10.6 g/dL (13.0-17.5) Hematocrit 32.8 % (39.0-53.0) Mean Corpuscular Volume 94 fL (79-100) Mean Corpuscular Hemoglobin 31 pg (25-35) Mean Corpuscular Hemoglobin Concent 33 g/dL (31-37) Red Cell Distribution Width 16.2 % (11.5-14.5) Platelet Count 160 x10^3/uL (140-400) Neutrophils (%) (Auto) 85 % (31-73) Lymphocytes (%) (Auto) 6 % (24-48) Monocytes (%) (Auto) 8 % (0-9) Eosinophils (%) (Auto) 0 % (0-3) Basophils (%) (Auto) 1 % (0-3) Neutrophils # (Auto) 5.4 x10^3uL (1.8-7.7) Lymphocytes # (Auto) 0.4 x10^3/uL (1.0-4.8) Monocytes # (Auto) 0.5 x10^3/uL (0.0-1.1) Eosinophils # (Auto) 0.0 x10^3/uL (0.0-0.7) Basophils # (Auto) 0.1 x10^3/uL (0.0-0.2) Prothrombin Time 15.3 SEC (11.7-14.0) Prothromb Time International Ratio 1.3 (0.8-1.1) Sodium Level 137 mmol/L (136-145) Potassium Level 4.5 mmol/L (3.5-5.1) Chloride Level 99 mmol/L (98-107) Carbon Dioxide Level 27 mmol/L (21-32) Anion Gap 11 (6-14) Blood Urea Nitrogen 39 mg/dL (8-26) Creatinine 4.6 mg/dL (0.7-1.3) Estimated GFR (Cockcroft-Gault) 16.4 Glucose Level 135 mg/dL (70-99) Calcium Level 8.7 mg/dL (8.5-10.1) Phosphorus Level 3.3 mg/dL (2.6-4.7) Magnesium Level 1.9 mg/dL (1.8-2.4) Albumin 2.8 g/dL (3.4-5.0) Random Vancomycin Level 13.7 mcg/mL Glucose (Fingerstick) 153 mg/dL (70-99) Objective Assessment Sepsis - POA - GPC in blood 1/3 bottles so far. Clinically looks better Left foot infected wound Tongue bacterial overgrowth Fever - persists ? sepsis vs foot Zosyn/pcn allergy - has tolerated Cefepime CKD Plan Plan of Care Add Peridex Zyvox po times one 03/28/Gent times one 03/28 Cont Meropenem (on Keppra)/Vanc/Micafungin F/u labs and cults Await further Ortho f/u JUAN ANTONIO CHASE MD Mar 29, 2017 09:26
[2017-03-29] MEDS: CHLORHEXIDINE 0.12% 15 ML MOUTHWASH. SWSP SCH ×2 (09:36→20:50)
[2017-03-29] MEDS: MEROPENEM 1 GM in IV NORMAL SALINE 100ML 100 ML IV SCH (09:36)
[2017-03-29] MEDS: MICAFUNGIN 100 MG in IV DEXTROSE 5% 100 ML IV SCH (10:17)
--- NOTE | 2017-03-29 10:46 | PDOC ---
SUBJECTIVE ROS ESRD Doing and feeling same to a little better overall - still febrile CVS: no Orthopnea, no CP RESP: no SOB, no MCCLAIN GI: no Nausea, no Vomiting : no Dysuria, no Urgency OBJECTIVE Vital Signs Vital Signs Date Time Temp Pulse Resp B/P (MAP) Pulse Ox O2 Delivery O2 Flow Rate FiO2 03/29/17 09:00 Room Air 03/29/17 08:24 112 134/71 03/29/17 07:00 102.4 22 95 102.4 I & 0 Intake and Output 03/29/17 07:00 Intake Total 100 ml Output Total 1300 ml Balance -1200 ml Intake Oral 100 ml Output Urine Total 1300 ml # Voids 1 PHYSICAL EXAM Physical Exam General Appearance: Awake Alert Oriented x 3 In no Distress Eyes: VIsion Unchanged Conjunctiva Normal EN: No EN Drainage Mucous Memb. moist Neck: no JVD no JVP Supple no Thyromegaly CVS: S1 S2 + Murmur No Gallop No Rub no Edema Resp: no Rales no Rhonchi no Acc. Muscle use GI: BAS +ve NO Bruit Non Tender Non Distended : no CVA tenderness; no Suprapubic Tenderness Assessment & Plan ESRD: Dialysis as below F 180 NR 4.0 Hrs 3 K 2.5 Ca 140 Na 35 HC03 Qb 350 + Qd 500+ Heparin 0 Units Uf 2-3 Kgs or to dry weight as tolerated May give 25-50 gms of 25% Albumin if needed to maintain Hemodynamic stability Treatment plan reviewed and discussed with independent insurance adjuster Anemia: started on Epogen (high likelihood of drop in H/H with ongoing febrile illness) Transfuse with next HD as needed. HTN: Current BP meds reviewed. See orders for changes. Bone & Mineral: follow phos and alter binder regimen as needed - currently doing good Febrile illness - IV Abx per Dr Huerta Hypoalbuminemia - suspect due to ch Wound/ infection and catabolism from febrile illness Discussed Plan of Care and prognosis etc. at length with family/ pt. COMMENT/RELEVANT DATA Meds Current Medications Medications (Trade) Dose Ordered Sig/[place] Start Time Stop Time Status Last Admin Dose Admin Acetaminophen (Tylenol) 500 mg 1X PRN PRN 03/28/17 13:15 03/29/17 13:14 Acetaminophen/ Hydrocodone Bitart (Lortab 10/325) 1 tab PRN Q6HRS PRN 03/27/17 15:15 03/28/17 00:14 1 TAB Albumin Human 200 ml @ 200 mls/hr 1X PRN PRN 03/28/17 13:15 03/28/17 19:14 DC Albuterol Sulfate (Ventolin Neb Soln) 2.5 mg PRN Q6HRS PRN 03/27/17 16:00 03/27/17 19:49 2.5 MG Alprazolam (Xanax) 0.25 mg QID PRN 03/27/17 15:30 Atorvastatin Calcium (Lipitor) 80 mg QHS 03/27/17 21:00 03/28/17 20:01 80 MG Calcium Carbonate/ Glycine (Oscal) 500 mg TIDWMEALS 03/27/17 17:00 03/29/17 08:23 500 MG Chlorhexidine Gluconate (Peridex) 15 ml BID 03/29/17 09:30 03/29/17 09:36 15 ML Citalopram Hydrobromide (CeleXA) 20 mg DAILY 03/28/17 09:00 03/29/17 08:23 20 MG Clonidine HCl (Catapres) 0.1 mg 1X PRN PRN 03/28/17 13:15 03/29/17 13:14 Clopidogrel Bisulfate (Plavix) 75 mg DAILY07 03/28/17 07:00 03/29/17 06:14 75 MG Darbepoetin Jace (Aranesp) 100 mcg WEEKLY 04/03/17 09:00 UNV Dexamethasone (Maxidex) 1 drop TID 03/27/17 21:00 Cancel Diclofenac Sodium (Voltaren) 1 ayaz BID 03/27/17 21:00 Diphenhydramine HCl (Benadryl) 25 mg 1X PRN PRN 03/28/17 13:15 03/29/17 13:14 Ergocalciferol (Vitamin D2) 50,000 unit WEEKLY 04/03/17 09:00 Famotidine (Pepcid) 20 mg HS 03/27/17 21:00 03/28/17 20:02 20 MG Gentamicin Sulfate 280 mg/ Sodium Chloride 107 ml @ 107 mls/hr ONCE ONCE 03/28/17 09:00 03/28/17 09:59 DC 03/28/17 09:00 107 MLS/HR Gentamicin Sulfate 1 each ONCE ONCE 03/28/17 08:15 03/28/17 08:33 DC Info (PHARMACY MONITORING -- do not chart) 1 each PRN DAILY PRN 03/28/17 13:15 Isosorbide Mononitrate (Imdur) 30 mg DAILY 03/28/17 09:00 03/29/17 08:24 30 MG Ketorolac Tromethamine (Acular) 1 drop BID 03/27/17 21:00 Cancel Labetalol HCl (Normodyne) 10 mg PRN Q1HR PRN 03/28/17 13:15 03/29/17 13:14 Levetiracetam (Keppra) 500 mg BID 03/27/17 21:00 03/29/17 08:23 500 MG Levothyroxine Sodium (Synthroid) 175 mcg DAILY07 03/28/17 07:00 03/29/17 06:14 175 MCG Lidocaine (Lidoderm) 1 patch DAILY 03/28/17 09:00 Lidocaine HCl 20 ml ONCE ONCE 03/28/17 13:45 03/28/17 13:46 DC 03/28/17 13:45 20 ML Linezolid (Zyvox) 600 mg ONCE ONCE 03/28/17 08:15 03/28/17 08:21 DC 03/28/17 08:53 600 MG Magnesium Sulfate/ Dextrose 50 ml @ 25 mls/hr PRN DAILY PRN 03/28/17 13:30 Meclizine HCl (Antivert) 12.5 mg TID 03/27/17 21:00 03/29/17 08:23 12.5 MG Meropenem 1 gm/ Sodium Chloride 100 ml @ 200 mls/hr DAILY 03/28/17 08:30 03/29/17 09:36 200 MLS/HR Metoprolol Tartrate (Lopressor) 50 mg BID 03/27/17 21:00 03/29/17 08:24 50 MG Micafungin Sodium 100 mg/Dextrose 100 ml @ 100 mls/hr Q24H 03/28/17 10:00 03/29/17 10:17 100 MLS/HR Morphine Sulfate 4 mg PRN Q4HRS PRN 03/27/17 13:30 03/28/17 05:19 4 MG Nitroglycerin (Nitrostat) 0.4 mg PRN Q5MIN PRN 03/27/17 15:30 Non-Formulary Medication 1 drop Q1HR 03/27/17 16:00 UNV Ondansetron HCl (Zofran) 4 mg PRN Q6HRS PRN 03/27/17 15:15 Risperidone (RisperDAL) 0.5 mg QHS 03/27/17 21:00 03/28/17 20:02 0.5 MG Ropinirole HCl (Requip) 0.25 mg QHS 03/27/17 21:00 03/28/17 20:01 0.25 MG Sevelamer Carbonate (Renvela) 2,400 mg TIDWMEALS 03/27/17 17:00 03/29/17 08:24 2,400 MG Sodium Bicarbonate (Sodium Bicarbonate) 1,300 mg BID 03/27/17 21:00 03/29/17 08:23 1,300 MG Sodium Chloride 1,000 ml @ 1,000 mls/hr Q1H PRN 03/28/17 13:15 03/28/17 19:14 DC Sucralfate (Carafate) 1 gm BID 03/27/17 21:00 03/29/17 08:23 1 GM Trazodone HCl (Desyrel) 50 mg QHS PRN 03/27/17 15:30 Vancomycin HCl 1 each 1X ONCE 03/29/17 06:00 03/29/17 06:01 DC 03/29/17 06:00 1 EACH Vancomycin HCl (Vanco Per Pharmacy) 1 each PRN DAILY PRN 03/28/17 08:15 03/28/17 17:52 1 EACH Vancomycin HCl 2 gm/Sodium Chloride 500 ml @ 250 mls/hr ONCE ONCE 03/28/17 09:00 03/28/17 10:59 DC 03/28/17 11:20 250 MLS/HR Vitamin B Complex/ Vitamin C (Fernanda-Jimmy) 1 tab DAILY 03/28/17 09:00 03/29/17 08:23 1 TAB Warfarin Sodium (Coumadin Per Physician) 1 each PRN DAILY PRN 03/27/17 16:15 03/28/17 14:54 1 EACH Warfarin Sodium (Coumadin) 7.5 mg 1X WARF ONCE 03/28/17 16:00 03/28/17 16:01 Cancel Zolpidem Tartrate (Ambien) 5 mg HS PRN 03/27/17 15:30 Lab Laboratory Tests Test 03/28/17 11:06 03/28/17 18:28 03/28/17 20:00 03/28/17 21:16 Glucose (Fingerstick) 153 mg/dL (70-99) 143 mg/dL (70-99) 143 mg/dL (70-99) Urine Collection Type Unknown Urine Color Yellow Urine Clarity Clear Urine pH 6.0 Urine Specific [place] 1.015 Urine Protein >=300 mg/dL (NEG-TRACE) Urine Glucose (UA) Negative mg/dL (NEG) Urine Ketones (Stick) Negative mg/dL (NEG) Urine Blood Negative (NEG) Urine Nitrite Negative (NEG) Urine Bilirubin Negative (NEG) Urine Urobilinogen Dipstick 1.0 mg/dL (0.2 mg/dL) Urine Leukocyte Esterase Negative (NEG) Urine RBC 3-5 /HPF (0-2) Urine WBC Occ /HPF (0-4) Urine Squamous Epithelial Cells Few /LPF Urine Amorphous Sediment Present /HPF Urine Bacteria 0 /HPF (0-FEW) Test 03/29/17 05:15 03/29/17 07:30 White Blood Count 6.4 x10^3/uL (4.0-11.0) Red Blood Count 3.49 x10^6/uL (4.30-5.70) Hemoglobin 10.6 g/dL (13.0-17.5) Hematocrit 32.8 % (39.0-53.0) Mean Corpuscular Volume 94 fL (79-100) Mean Corpuscular Hemoglobin 31 pg (25-35) Mean Corpuscular Hemoglobin Concent 33 g/dL (31-37) Red Cell Distribution Width 16.2 % (11.5-14.5) Platelet Count 160 x10^3/uL (140-400) Neutrophils (%) (Auto) 85 % (31-73) Lymphocytes (%) (Auto) 6 % (24-48) Monocytes (%) (Auto) 8 % (0-9) Eosinophils (%) (Auto) 0 % (0-3) Basophils (%) (Auto) 1 % (0-3) Neutrophils # (Auto) 5.4 x10^3uL (1.8-7.7) Lymphocytes # (Auto) 0.4 x10^3/uL (1.0-4.8) Monocytes # (Auto) 0.5 x10^3/uL (0.0-1.1) Eosinophils # (Auto) 0.0 x10^3/uL (0.0-0.7) Basophils # (Auto) 0.1 x10^3/uL (0.0-0.2) Prothrombin Time 15.3 SEC (11.7-14.0) Prothromb Time International Ratio 1.3 (0.8-1.1) Sodium Level 137 mmol/L (136-145) Potassium Level 4.5 mmol/L (3.5-5.1) Chloride Level 99 mmol/L (98-107) Carbon Dioxide Level 27 mmol/L (21-32) Anion Gap 11 (6-14) Blood Urea Nitrogen 39 mg/dL (8-26) Creatinine 4.6 mg/dL (0.7-1.3) Estimated GFR (Cockcroft-Gault) 16.4 Glucose Level 135 mg/dL (70-99) Calcium Level 8.7 mg/dL (8.5-10.1) Phosphorus Level 3.3 mg/dL (2.6-4.7) Magnesium Level 1.9 mg/dL (1.8-2.4) Albumin 2.8 g/dL (3.4-5.0) Random Vancomycin Level 13.7 mcg/mL Glucose (Fingerstick) 153 mg/dL (70-99) MYRON LIANG MD Mar 29, 2017 10:46
[2017-03-29 11:00] VITALS: BP 88/43
--- NOTE | 2017-03-29 12:40 | PDOC ---
TCOM NOTE This is a transcutaneous oximetry assessment performed on 51-year-old patient admitted for care of a diabetic left foot postsurgical wound dehiscence with subsequent infection. This performed at the request of Dr. Fxo. This patient is receiving ongoing antibiotic therapy and presents with multiple comorbidities including vascular disease, diabetes, hypertension and end-stage renal disease. At the time of testing the patient did not demonstrate dyspnea, prominent edema or significant skin changes at the transcutaneous oximetry lead placement sites. At the time of testing, hemodynamic vital signs were stable. Baseline transcutaneous oximetry values are obtained in leads 1 through 5 while breathing room air at 1 cheri. The most distal leads are recorded as #2 and #3. Proximal to that are leads 1 and 4. At a supramalleolar location is lead 5. Values in leads 1 through 5 are as follows: 55 mmHg, 5 mmHg, 13 mmHg, 72 mmHg and 60 mm of mercury. While breathing 100% oxygen at 1 cheri the transcutaneous oximetry readings in leads 1 through 5 are as follows: 136 mm of mercury, 51 mmHg, 58 mmHg, 152 mm of mercury and 152 mmHg. The most distal leads approximating tissue oxygenation closest to the incision area are leads 2 and 3, and at baseline, these read 5 mm of mercury and 13 mm of mercury. This suggests an area of critical ischemia. All leads proximal to leads 2 and 3 register in excess of 40 mm of mercury suggesting adequate tissue oxygenation for healing. With supplemental oxygen, all leads except leads 2 and 3 read in excess of 100 mmHg. Impression: Critical ischemic values are identified at the site of patient's current nonhealing surgical wound. PAM BLAIR DO Mar 29, 2017 12:40
--- NOTE | 2017-03-29 14:05 | PDOC ---
PROGRESS NOTES Chief Complaint Chief Complaint Staph BACTEREMIA 1. Fevers ,sepsis with left foot cellulitis 2. recent LEft foot osteo post op wound, gaping sutures, subcutaneous edema around - CRP 62, fevers 3. ESRD on HD TTHS 4. Anemia of CKD 5. Obesity BMI 37 6. Hx Left foot infected wound with osteomyelitis. Enterobacter. s/p TMA, closed wound, 03/02 7. Hypothyroidism chronic 8. History of coronary artery disease 9. History of DVT's on warfarin 11. History of chronic back pain 12. Paroxysmal atrial fibrillation on warfarin 13. Obesity 14. GERD 1/3 + bacteremia wit staph aureus plan: fu with id, on multiple abx waiting for i and d tmr fu with vascular on home meds hold warfarin for today, inr daily HD as regularly History of Present Illness History of Present Illness cont having high fever 1/3 + bcx Vitals Vitals Vital Signs Date Time Temp Pulse Resp B/P (MAP) Pulse Ox O2 Delivery O2 Flow Rate FiO2 03/29/17 11:00 101.9 94 20 88/43 (58) 96 Room Air 101.9 Physical Exam General: Alert, Oriented X3, Cooperative, No acute distress Heart: Regular rate Lungs: Clear Abdomen: Soft Extremities: No clubbing, No cyanosis, Normal pulses, Other (left foot wrapped with dressing) Skin: No rashes Labs LABS Laboratory Tests Test 03/28/17 18:28 03/28/17 20:00 03/28/17 21:16 03/29/17 05:15 Glucose (Fingerstick) 143 mg/dL (70-99) 143 mg/dL (70-99) Urine Collection Type Unknown Urine Color Yellow Urine Clarity Clear Urine pH 6.0 Urine Specific [place] 1.015 Urine Protein >=300 mg/dL (NEG-TRACE) Urine Glucose (UA) Negative mg/dL (NEG) Urine Ketones (Stick) Negative mg/dL (NEG) Urine Blood Negative (NEG) Urine Nitrite Negative (NEG) Urine Bilirubin Negative (NEG) Urine Urobilinogen Dipstick 1.0 mg/dL (0.2 mg/dL) Urine Leukocyte Esterase Negative (NEG) Urine RBC 3-5 /HPF (0-2) Urine WBC Occ /HPF (0-4) Urine Squamous Epithelial Cells Few /LPF Urine Amorphous Sediment Present /HPF Urine Bacteria 0 /HPF (0-FEW) White Blood Count 6.4 x10^3/uL (4.0-11.0) Red Blood Count 3.49 x10^6/uL (4.30-5.70) Hemoglobin 10.6 g/dL (13.0-17.5) Hematocrit 32.8 % (39.0-53.0) Mean Corpuscular Volume 94 fL (79-100) Mean Corpuscular Hemoglobin 31 pg (25-35) Mean Corpuscular Hemoglobin Concent 33 g/dL (31-37) Red Cell Distribution Width 16.2 % (11.5-14.5) Platelet Count 160 x10^3/uL (140-400) Neutrophils (%) (Auto) 85 % (31-73) Lymphocytes (%) (Auto) 6 % (24-48) Monocytes (%) (Auto) 8 % (0-9) Eosinophils (%) (Auto) 0 % (0-3) Basophils (%) (Auto) 1 % (0-3) Neutrophils # (Auto) 5.4 x10^3uL (1.8-7.7) Lymphocytes # (Auto) 0.4 x10^3/uL (1.0-4.8) Monocytes # (Auto) 0.5 x10^3/uL (0.0-1.1) Eosinophils # (Auto) 0.0 x10^3/uL (0.0-0.7) Basophils # (Auto) 0.1 x10^3/uL (0.0-0.2) Prothrombin Time 15.3 SEC (11.7-14.0) Prothromb Time International Ratio 1.3 (0.8-1.1) Sodium Level 137 mmol/L (136-145) Potassium Level 4.5 mmol/L (3.5-5.1) Chloride Level 99 mmol/L (98-107) Carbon Dioxide Level 27 mmol/L (21-32) Anion Gap 11 (6-14) Blood Urea Nitrogen 39 mg/dL (8-26) Creatinine 4.6 mg/dL (0.7-1.3) Estimated GFR (Cockcroft-Gault) 16.4 Glucose Level 135 mg/dL (70-99) Calcium Level 8.7 mg/dL (8.5-10.1) Phosphorus Level 3.3 mg/dL (2.6-4.7) Magnesium Level 1.9 mg/dL (1.8-2.4) Albumin 2.8 g/dL (3.4-5.0) Random Vancomycin Level 13.7 mcg/mL Test 03/29/17 07:30 03/29/17 11:01 Glucose (Fingerstick) 153 mg/dL (70-99) 205 mg/dL (70-99) Review of Systems Review of Systems no chills, sob or chest pain Assessment and Plan Assessmemt and Plan Problems Medical Problems: (1) End stage renal disease Status: Acute (2) Fever Status: Acute Problems: Comment Review of Relevant I have reviewed the following items lila (where applicable) has been applied. Labs Laboratory Tests Test 03/27/17 15:30 03/27/17 20:43 03/28/17 00:00 03/28/17 07:21 Erythrocyte Sedimentation Rate 93 (0-15) Glucose (Fingerstick) 135 mg/dL (70-99) 141 mg/dL (70-99) Urine Collection Type Unknown Urine Color Yellow Urine Clarity Clear Urine pH 6.5 Urine Specific [place] 1.015 Urine Protein >=300 mg/dL (NEG-TRACE) Urine Glucose (UA) 100 mg/dL (NEG) Urine Ketones (Stick) Negative mg/dL (NEG) Urine Blood Negative (NEG) Urine Nitrite Negative (NEG) Urine Bilirubin Negative (NEG) Urine Urobilinogen Dipstick 1.0 mg/dL (0.2 mg/dL) Urine Leukocyte Esterase Negative (NEG) Urine RBC 6-10 /HPF (0-2) Urine WBC 1-4 /HPF (0-4) Urine Squamous Epithelial Cells Few /LPF Urine Bacteria 0 /HPF (0-FEW) Urine Hyaline Casts Few /HPF Test 03/28/17 09:10 03/28/17 11:06 03/28/17 18:28 03/28/17 20:00 White Blood Count 7.4 x10^3/uL (4.0-11.0) Red Blood Count 3.54 x10^6/uL (4.30-5.70) Hemoglobin 10.7 g/dL (13.0-17.5) Hematocrit 33.2 % (39.0-53.0) Mean Corpuscular Volume 94 fL (79-100) Mean Corpuscular Hemoglobin 30 pg (25-35) Mean Corpuscular Hemoglobin Concent 32 g/dL (31-37) Red Cell Distribution Width 16.4 % (11.5-14.5) Platelet Count 184 x10^3/uL (140-400) Neutrophils (%) (Auto) 82 % (31-73) Lymphocytes (%) (Auto) 6 % (24-48) Monocytes (%) (Auto) 10 % (0-9) Eosinophils (%) (Auto) 1 % (0-3) Basophils (%) (Auto) 1 % (0-3) Neutrophils # (Auto) 6.1 x10^3uL (1.8-7.7) Lymphocytes # (Auto) 0.5 x10^3/uL (1.0-4.8) Monocytes # (Auto) 0.7 x10^3/uL (0.0-1.1) Eosinophils # (Auto) 0.0 x10^3/uL (0.0-0.7) Basophils # (Auto) 0.1 x10^3/uL (0.0-0.2) Prothrombin Time 13.4 SEC (11.7-14.0) Prothromb Time International Ratio 1.1 (0.8-1.1) Sodium Level 135 mmol/L (136-145) Potassium Level 4.6 mmol/L (3.5-5.1) Chloride Level 99 mmol/L (98-107) Carbon Dioxide Level 28 mmol/L (21-32) Anion Gap 8 (6-14) Blood Urea Nitrogen 68 mg/dL (8-26) Creatinine 4.9 mg/dL (0.7-1.3) Estimated GFR (Cockcroft-Gault) 15.2 Glucose Level 160 mg/dL (70-99) Lactic Acid Level 1.0 mmol/L (0.4-2.0) Calcium Level 8.9 mg/dL (8.5-10.1) Glucose (Fingerstick) 153 mg/dL (70-99) 143 mg/dL (70-99) Urine Collection Type Unknown Urine Color Yellow Urine Clarity Clear Urine pH 6.0 Urine Specific [place] 1.015 Urine Protein >=300 mg/dL (NEG-TRACE) Urine Glucose (UA) Negative mg/dL (NEG) Urine Ketones (Stick) Negative mg/dL (NEG) Urine Blood Negative (NEG) Urine Nitrite Negative (NEG) Urine Bilirubin Negative (NEG) Urine Urobilinogen Dipstick 1.0 mg/dL (0.2 mg/dL) Urine Leukocyte Esterase Negative (NEG) Urine RBC 3-5 /HPF (0-2) Urine WBC Occ /HPF (0-4) Urine Squamous Epithelial Cells Few /LPF Urine Amorphous Sediment Present /HPF Urine Bacteria 0 /HPF (0-FEW) Test 03/28/17 21:16 03/29/17 05:15 03/29/17 07:30 03/29/17 11:01 Glucose (Fingerstick) 143 mg/dL (70-99) 153 mg/dL (70-99) 205 mg/dL (70-99) White Blood Count 6.4 x10^3/uL (4.0-11.0) Red Blood Count 3.49 x10^6/uL (4.30-5.70) Hemoglobin 10.6 g/dL (13.0-17.5) Hematocrit 32.8 % (39.0-53.0) Mean Corpuscular Volume 94 fL (79-100) Mean Corpuscular Hemoglobin 31 pg (25-35) Mean Corpuscular Hemoglobin Concent 33 g/dL (31-37) Red Cell Distribution Width 16.2 % (11.5-14.5) Platelet Count 160 x10^3/uL (140-400) Neutrophils (%) (Auto) 85 % (31-73) Lymphocytes (%) (Auto) 6 % (24-48) Monocytes (%) (Auto) 8 % (0-9) Eosinophils (%) (Auto) 0 % (0-3) Basophils (%) (Auto) 1 % (0-3) Neutrophils # (Auto) 5.4 x10^3uL (1.8-7.7) Lymphocytes # (Auto) 0.4 x10^3/uL (1.0-4.8) Monocytes # (Auto) 0.5 x10^3/uL (0.0-1.1) Eosinophils # (Auto) 0.0 x10^3/uL (0.0-0.7) Basophils # (Auto) 0.1 x10^3/uL (0.0-0.2) Prothrombin Time 15.3 SEC (11.7-14.0) Prothromb Time International Ratio 1.3 (0.8-1.1) Sodium Level 137 mmol/L (136-145) Potassium Level 4.5 mmol/L (3.5-5.1) Chloride Level 99 mmol/L (98-107) Carbon Dioxide Level 27 mmol/L (21-32) Anion Gap 11 (6-14) Blood Urea Nitrogen 39 mg/dL (8-26) Creatinine 4.6 mg/dL (0.7-1.3) Estimated GFR (Cockcroft-Gault) 16.4 Glucose Level 135 mg/dL (70-99) Calcium Level 8.7 mg/dL (8.5-10.1) Phosphorus Level 3.3 mg/dL (2.6-4.7) Magnesium Level 1.9 mg/dL (1.8-2.4) Albumin 2.8 g/dL (3.4-5.0) Random Vancomycin Level 13.7 mcg/mL Laboratory Tests Test 03/28/17 18:28 03/28/17 20:00 03/28/17 21:16 03/29/17 05:15 Glucose (Fingerstick) 143 mg/dL (70-99) 143 mg/dL (70-99) Urine Collection Type Unknown Urine Color Yellow Urine Clarity Clear Urine pH 6.0 Urine Specific [place] 1.015 Urine Protein >=300 mg/dL (NEG-TRACE) Urine Glucose (UA) Negative mg/dL (NEG) Urine Ketones (Stick) Negative mg/dL (NEG) Urine Blood Negative (NEG) Urine Nitrite Negative (NEG) Urine Bilirubin Negative (NEG) Urine Urobilinogen Dipstick 1.0 mg/dL (0.2 mg/dL) Urine Leukocyte Esterase Negative (NEG) Urine RBC 3-5 /HPF (0-2) Urine WBC Occ /HPF (0-4) Urine Squamous Epithelial Cells Few /LPF Urine Amorphous Sediment Present /HPF Urine Bacteria 0 /HPF (0-FEW) White Blood Count 6.4 x10^3/uL (4.0-11.0) Red Blood Count 3.49 x10^6/uL (4.30-5.70) Hemoglobin 10.6 g/dL (13.0-17.5) Hematocrit 32.8 % (39.0-53.0) Mean Corpuscular Volume 94 fL (79-100) Mean Corpuscular Hemoglobin 31 pg (25-35) Mean Corpuscular Hemoglobin Concent 33 g/dL (31-37) Red Cell Distribution Width 16.2 % (11.5-14.5) Platelet Count 160 x10^3/uL (140-400) Neutrophils (%) (Auto) 85 % (31-73) Lymphocytes (%) (Auto) 6 % (24-48) Monocytes (%) (Auto) 8 % (0-9) Eosinophils (%) (Auto) 0 % (0-3) Basophils (%) (Auto) 1 % (0-3) Neutrophils # (Auto) 5.4 x10^3uL (1.8-7.7) Lymphocytes # (Auto) 0.4 x10^3/uL (1.0-4.8) Monocytes # (Auto) 0.5 x10^3/uL (0.0-1.1) Eosinophils # (Auto) 0.0 x10^3/uL (0.0-0.7) Basophils # (Auto) 0.1 x10^3/uL (0.0-0.2) Prothrombin Time 15.3 SEC (11.7-14.0) Prothromb Time International Ratio 1.3 (0.8-1.1) Sodium Level 137 mmol/L (136-145) Potassium Level 4.5 mmol/L (3.5-5.1) Chloride Level 99 mmol/L (98-107) Carbon Dioxide Level 27 mmol/L (21-32) Anion Gap 11 (6-14) Blood Urea Nitrogen 39 mg/dL (8-26) Creatinine 4.6 mg/dL (0.7-1.3) Estimated GFR (Cockcroft-Gault) 16.4 Glucose Level 135 mg/dL (70-99) Calcium Level 8.7 mg/dL (8.5-10.1) Phosphorus Level 3.3 mg/dL (2.6-4.7) Magnesium Level 1.9 mg/dL (1.8-2.4) Albumin 2.8 g/dL (3.4-5.0) Random Vancomycin Level 13.7 mcg/mL Test 03/29/17 07:30 03/29/17 11:01 Glucose (Fingerstick) 153 mg/dL (70-99) 205 mg/dL (70-99) Microbiology 03/27/17 Blood Culture - Preliminary, Resulted 03/27/17 Blood Culture Result 1 (BLAKE) - Preliminary, Resulted Medications Current Medications Morphine Sulfate 4 mg 1X ONCE IV Last administered on 03/27/17 10:11; Start 03/27/17 at 10:00; Stop 03/27/17 at 10:05; Status DC Morphine Sulfate 4 mg PRN Q4HRS PRN IV PAIN Last administered on 03/28/17 05: 19; Start 03/27/17 at 13:30 Ondansetron HCl (Zofran) 4 mg PRN Q6HRS PRN IV NAUSEA/VOMITING; Start 03/27/17 at 15:15 Acetaminophen/ Hydrocodone Bitart (Lortab 10/325) 1 tab PRN Q6HRS PRN PO PAIN Last administered on 03/28/17 00:14; Start 03/27/17 at 15:15 Acetaminophen (Tylenol) 500 mg PRN Q6HRS PRN PO MILD PAIN / TEMP Last administered on 03/29/17 09:36; Start 03/27/17 at 15:15 Alprazolam (Xanax) 0.25 mg QID PRN PO ANXIETY / AGITATION; Start 03/27/17 at 15 :30 Calcium Carbonate/ Glycine (Oscal) 500 mg TIDWMEALS PO Last administered on 08:23; Start 03/27/17 at 17:00 Citalopram Hydrobromide (CeleXA) 20 mg DAILY PO Last administered on 03/29/17 08:23; Start 03/28/17 at 09:00 Clopidogrel Bisulfate (Plavix) 75 mg DAILY07 PO Last administered on 03/29/17 06:14; Start 03/28/17 at 07:00 Darbepoetin Jace (Aranesp) 100 mcg WEEKLY SQ ; Start 04/03/17 at 09:00; Status UNV Dexamethasone (Maxidex) 1 drop TID OS ; Start 03/27/17 at 21:00; Status Cancel Diclofenac Sodium (Voltaren) 1 ayaz BID TP ; Start 03/27/17 at 21:00 Ergocalciferol (Vitamin D2) 50,000 unit WEEKLY PO ; Start 04/03/17 at 09:00 Famotidine (Pepcid) 20 mg HS PO Last administered on 03/28/17 20:02; Start at 21:00 Vitamin B Complex/ Vitamin C (Fernanda-Jimmy) 1 tab DAILY PO Last administered on 08:23; Start 03/28/17 at 09:00 Isosorbide Mononitrate (Imdur) 30 mg DAILY PO Last administered on 03/29/17 08 :24; Start 03/28/17 at 09:00 Ketorolac Tromethamine (Acular) 1 drop BID OS ; Start 03/27/17 at 21:00; Status Cancel Levetiracetam (Keppra) 500 mg BID PO Last administered on 03/29/17 08:23; Start 03/27/17 at 21:00 Levothyroxine Sodium (Synthroid) 175 mcg DAILY07 PO Last administered on 06:14; Start 03/28/17 at 07:00 Lidocaine (Lidoderm) 1 patch DAILY TD ; Start 03/28/17 at 09:00 Meclizine HCl (Antivert) 12.5 mg TID PO Last administered on 03/29/17 08:23; Start 03/27/17 at 21:00 Metoprolol Tartrate (Lopressor) 50 mg BID PO Last administered on 03/29/17 08: 24; Start 03/27/17 at 21:00 Nitroglycerin (Nitrostat) 0.4 mg PRN Q5MIN PRN SL CHEST PAIN; Start 03/27/17 at 15:30 Ropinirole HCl (Requip) 0.25 mg QHS PO Last administered on 03/28/17 20:01; Start 03/27/17 at 21:00 Sevelamer Carbonate (Renvela) 2,400 mg TIDWMEALS PO Last administered on 08:24; Start 03/27/17 at 17:00 Sodium Bicarbonate (Sodium Bicarbonate) 1,300 mg BID PO Last administered on 08:23; Start 03/27/17 at 21:00 Sucralfate (Carafate) 1 gm BID PO Last administered on 03/29/17 08:23; Start 03/27/17 at 21:00 Trazodone HCl (Desyrel) 50 mg QHS PRN PO sleep; Start 03/27/17 at 15:30 Warfarin Sodium (Coumadin) 5 mg DAILY16 PO Last administered on 03/28/17 20:02 ; Start 03/28/17 at 16:00 Zolpidem Tartrate (Ambien) 5 mg HS PRN PO sleep; Start 03/27/17 at 15:30 Non-Formulary Medication 1 puff Q6HRS PRN INH SHORTNESS OF BREATH; Start at 15:30; Status UNV Atorvastatin Calcium (Lipitor) 80 mg QHS PO Last administered on 03/28/17 20: 01; Start 03/27/17 at 21:00 Non-Formulary Medication 5 ml DAILY LEFTEYE ; Start 03/28/17 at 09:00; Status UNV Non-Formulary Medication 1 drop Q1HR OS ; Start 03/27/17 at 16:00; Status UNV Risperidone (RisperDAL) 0.5 mg QHS PO Last administered on 03/28/17 20:02; Start 03/27/17 at 21:00 Albuterol Sulfate (Ventolin Neb Soln) 2.5 mg PRN Q6HRS PRN NEB SHORTNESS OF BREATH Last administered on 03/27/17 19:49; Start 03/27/17 at 16:00 Warfarin Sodium (Coumadin Per Physician) 1 each PRN DAILY PRN MC SEE COMMENTS Last administered on 03/28/17 14:54; Start 03/27/17 at 16:15 Vancomycin HCl (Vanco Per Pharmacy) 1 each PRN DAILY PRN MC SEE COMMENTS Last administered on 03/28/17 17:52; Start 03/28/17 at 08:15 Linezolid (Zyvox) 600 mg ONCE ONCE PO Last administered on 03/28/17 08:53; Start 03/28/17 at 08:15; Stop 03/28/17 at 08:21; Status DC Meropenem 1 gm/ Sodium Chloride 100 ml @ 200 mls/hr DAILY IV ; Start 03/28/17 at 08:30; Stop 03/28/17 at 08:30; Status DC Gentamicin Sulfate 1 each ONCE ONCE MC ; Start 03/28/17 at 08:15; Stop at 08:33; Status DC Meropenem 1 gm/ Sodium Chloride 100 ml @ 200 mls/hr DAILY IV Last administered on 03/29/17 09:36; Start 03/28/17 at 08:30 Micafungin Sodium 100 mg/Dextrose 100 ml @ 100 mls/hr Q24H IV Last administered on 03/29/17 10:17; Start 03/28/17 at 10:00 Vancomycin HCl 2 gm/Sodium Chloride 500 ml @ 250 mls/hr ONCE ONCE IV Last administered on 03/28/17 11:20; Start 03/28/17 at 09:00; Stop 03/28/17 at 10:59 ; Status DC Gentamicin Sulfate 280 mg/ Sodium Chloride 107 ml @ 107 mls/hr ONCE ONCE IV Last administered on 03/28/17 09:00; Start 03/28/17 at 09:00; Stop 03/28/17 at 09:59; Status DC Magnesium Sulfate/ Dextrose 50 ml @ 25 mls/hr PRN DAILY PRN IV for Mag < 1.7 on am labs; Start 03/28/17 at 13:30 Sodium Chloride 1,000 ml @ 1,000 mls/hr Q1H PRN IV hypotension; Start 03/28/17 at 13:15; Stop 03/28/17 at 19:14; Status DC Albumin Human 200 ml @ 200 mls/hr 1X PRN PRN IV Hypotension; Start 03/28/17 at 13:15; Stop 03/28/17 at 19:14; Status DC Acetaminophen (Tylenol) 500 mg 1X PRN PRN PO MILD PAIN / TEMP; Start 03/28/17 at 13:15; Stop 03/29/17 at 13:14; Status DC Diphenhydramine HCl (Benadryl) 25 mg 1X PRN PRN IV ITCHING; Start 03/28/17 at 13:15; Stop 03/29/17 at 13:14; Status DC Labetalol HCl (Normodyne) 10 mg PRN Q1HR PRN IVP SBP > 180; Start 03/28/17 at 13:15; Stop 03/29/17 at 13:14; Status DC Clonidine HCl (Catapres) 0.1 mg 1X PRN PRN PO SBP > 180; Start 03/28/17 at 13: 15; Stop 03/29/17 at 13:14; Status DC Info (PHARMACY MONITORING -- do not chart) 1 each PRN DAILY PRN MC SEE COMMENTS ; Start 03/28/17 at 13:15 Lidocaine HCl 20 ml ONCE ONCE IJ Last administered on 03/28/17 13:45; Start 03/28/17 at 13:45; Stop 03/28/17 at 13:46; Status DC Warfarin Sodium (Coumadin) 7.5 mg 1X WARF ONCE PO ; Start 03/28/17 at 16:00; Stop 03/28/17 at 16:01; Status Cancel Vancomycin HCl 1 each 1X ONCE MC Last administered on 03/29/17 06:00; Start 03/29/17 at 06:00; Stop 03/29/17 at 06:01; Status DC Chlorhexidine Gluconate (Peridex) 15 ml BID SWSP Last administered on 09:36; Start 03/29/17 at 09:30 Active Scripts Active Levetiracetam 500 Mg Tablet 500 Mg PO BID Lidoderm (Lidocaine) 700 Mg Adh..patch 1 Patch TD DAILY Metoprolol Tartrate 50 Mg Tablet 50 Mg PO BID Synthroid (Levothyroxine Sodium) 175 Mcg Tablet 175 Mcg PO DAILY07 Isosorbide Mononitrate Er (Isosorbide Mononitrate) 30 Mg Tab.er.24h 30 Mg PO DAILY Reported Sodium Bicarbonate 650 Mg Tablet 2 Tab PO BID on dialysis days sunday, and sunday Meclizine Hcl 12.5 Mg Tablet 1 Tab PO TID Calcium Carbonate 500 Mg Tablet 500 Mg PO TIDWMEALS Ambien (Zolpidem Tartrate) 5 Mg Tablet 5 Mg PO HS PRN Alprazolam 0.25 Mg Tablet 1 Tab PO PRN Ventolin Hfa Inhaler (Albuterol Sulfate) 18 Gm Hfa.aer.ad 1 Puff INH Q6HRS PRN Ropinirole Hcl 0.25 Mg Tablet 0.25 Mg PO Citalopram Hbr (Citalopram Hydrobromide) 20 Mg Tablet 1 Tab PO DAILY Trazodone Hcl 50 Mg Tablet 0.5-1 Tab PO QHS Risperidone 0.5 Mg Tablet 1 Tab PO QHS Famotidine 20 Mg Tablet 20 Mg PO HS Coumadin (Warfarin Sodium) 5 Mg Tablet 1 Tab PO DAILY Nephro-Jimmy Tablet (Folic Acid/Vitamin B Comp W-C) 0.8 Mg Tablet 1 Tab PO DAILY Carafate (Sucralfate) 1 Gm Tablet 1 Tab PO BID Nitrostat (Nitroglycerin) 0.4 Mg Tab.subl 0.4 Mg SL PRN Q5MIN PRN Voltaren (Diclofenac Sodium) 100 Gm Gel..gram. 1 Gm TP BID Clopidogrel (Clopidogrel Bisulfate) 75 Mg Tablet 75 Mg PO DAILY07 Renvela (Sevelamer Carbonate) 800 Mg Tablet 2,400 Tab PO TIDWMEALS Vitamin D2 (Ergocalciferol (Vitamin D2)) 50,000 Unit Capsule 50,000 Unit PO WEEKLY weekly on Sunday Atorvastatin Calcium 80 Mg Tablet 80 Mg PO HS Vitals/I & O Vital Sign - Last 24 Hours 03/28/17 03/28/17 03/28/17 03/28/17 19:30 19:44 20:03 23:01 Temp 103.0 102.4 103.0 102.4 Pulse 113 113 98 Resp 18 18 B/P (MAP) 150/83 (105) 150/83 139/76 (97) Pulse Ox 97 96 O2 Delivery Room Air Room Air Room Air 03/29/17 03/29/17 03/29/17 03/29/17 02:46 07:00 08:24 08:24 Temp 103.1 102.4 103.1 102.4 Pulse 113 112 112 112 Resp 18 22 B/P (MAP) 176/87 (116) 134/71 (92) 134/71 134/71 Pulse Ox 96 95 O2 Delivery Room Air Room Air 03/29/17 03/29/17 09:00 11:00 Temp 101.9 101.9 Pulse 94 Resp 20 B/P (MAP) 88/43 (58) Pulse Ox 96 O2 Delivery Room Air Room Air Intake and Output 03/28/17 03/28/17 03/29/17 15:00 23:00 07:00 Intake Total 100 ml Output Total 800 ml 500 ml Balance -700 ml -500 ml SKYLAR TSE MD Mar 29, 2017 14:05
[2017-03-29] MEDS: WARFARIN 5 MG TABLET. PO SCH (14:19)
[2017-03-29] MEDS: VANCOMYCIN PER PHARMACY MC PRN (14:42)
[2017-03-29 15:00] VITALS: BP 168/80
[2017-03-29] MEDS ORDERED: IV NORMAL SALINE 1000ML BAG 1,000 ML IV PRN ×2 (15:11)
[2017-03-29] MEDS ORDERED: DIALYSIS PATIENT. MC PRN ×2 (15:15)
--- NOTE | 2017-03-29 15:32 | PDOC2 ---
CONSULT Date of Consult Date of Consult DATE: 03/29/17 TIME: 15:22 Reason for Consult Reason for Consult: Left foot TMA dehiscence Identification/Chief Complaint Chief Complaint Left foot TMA dehiscence, fevers Source Source: Chart review, Patient History of Present Illness Reason for Visit: This is a 51 year old male with medical history of diabetes, ESRD on dialysis, a -fib, CAD with recent left foot TMA by Dr. Jamison now with wound dehiscence. The patient states he has had issues with drainage, bleeding and pain since procedure. He reports fevers and chills for he last two day. Blood cultures are positive. Past Medical History Cardiovascular: AFIB, CAD, CHF, HTN, MD, Hyperlipidemia, Other Pulmonary: Asthma, Other CENTRAL NERVOUS SYSTEM: CVA, Dementia, Periperal neuropathy, Seizure, TIA, Vertigo GI: Diverticulosis, Hemorrhoids Heme/Onc: Anemia NOS Hepatobiliary: No pertinent hx Psych: Anxiety, Depression Musculoskeletal: Osteoarthritis Infectious disease: No pertinent hx Renal/: Chronic renal insuff (on dialysis ) Endocrine: Diabetes, Hypothyroidism Past Surgical History Past Surgical History: Cataract Removal, Total knee replacement, Other (left TMA 03/02/17) Family History Family History: Hypertension Social History No ALCOHOL: none Drugs: None Lives: with Family Current Problem List Problem List Problems Medical Problems: (1) End stage renal disease Status: Acute (2) Fever Status: Acute Current Medications Current Medications Current Medications Morphine Sulfate 4 mg 1X ONCE IV Last administered on 03/27/17 10:11; Start 03/27/17 at 10:00; Stop 03/27/17 at 10:05; Status DC Morphine Sulfate 4 mg PRN Q4HRS PRN IV PAIN Last administered on 03/28/17 05: 19; Start 03/27/17 at 13:30 Ondansetron HCl (Zofran) 4 mg PRN Q6HRS PRN IV NAUSEA/VOMITING; Start 03/27/17 at 15:15 Acetaminophen/ Hydrocodone Bitart (Lortab 10/325) 1 tab PRN Q6HRS PRN PO PAIN Last administered on 03/28/17 00:14; Start 03/27/17 at 15:15 Acetaminophen (Tylenol) 500 mg PRN Q6HRS PRN PO MILD PAIN / TEMP Last administered on 03/29/17 09:36; Start 03/27/17 at 15:15 Alprazolam (Xanax) 0.25 mg QID PRN PO ANXIETY / AGITATION; Start 03/27/17 at 15 :30 Calcium Carbonate/ Glycine (Oscal) 500 mg TIDWMEALS PO Last administered on 08:23; Start 03/27/17 at 17:00 Citalopram Hydrobromide (CeleXA) 20 mg DAILY PO Last administered on 03/29/17 08:23; Start 03/28/17 at 09:00 Clopidogrel Bisulfate (Plavix) 75 mg DAILY07 PO Last administered on 03/29/17 06:14; Start 03/28/17 at 07:00 Darbepoetin Jace (Aranesp) 100 mcg WEEKLY SQ ; Start 04/03/17 at 09:00; Status UNV Dexamethasone (Maxidex) 1 drop TID OS ; Start 03/27/17 at 21:00; Status Cancel Diclofenac Sodium (Voltaren) 1 ayaz BID TP ; Start 03/27/17 at 21:00 Ergocalciferol (Vitamin D2) 50,000 unit WEEKLY PO ; Start 04/03/17 at 09:00 Famotidine (Pepcid) 20 mg HS PO Last administered on 03/28/17 20:02; Start at 21:00 Vitamin B Complex/ Vitamin C (Fernanda-Jimmy) 1 tab DAILY PO Last administered on 08:23; Start 03/28/17 at 09:00 Isosorbide Mononitrate (Imdur) 30 mg DAILY PO Last administered on 03/29/17 08 :24; Start 03/28/17 at 09:00 Ketorolac Tromethamine (Acular) 1 drop BID OS ; Start 03/27/17 at 21:00; Status Cancel Levetiracetam (Keppra) 500 mg BID PO Last administered on 03/29/17 08:23; Start 03/27/17 at 21:00 Levothyroxine Sodium (Synthroid) 175 mcg DAILY07 PO Last administered on 06:14; Start 03/28/17 at 07:00 Lidocaine (Lidoderm) 1 patch DAILY TD ; Start 03/28/17 at 09:00 Meclizine HCl (Antivert) 12.5 mg TID PO Last administered on 03/29/17 08:23; Start 03/27/17 at 21:00 Metoprolol Tartrate (Lopressor) 50 mg BID PO Last administered on 03/29/17 08: 24; Start 03/27/17 at 21:00 Nitroglycerin (Nitrostat) 0.4 mg PRN Q5MIN PRN SL CHEST PAIN; Start 03/27/17 at 15:30 Ropinirole HCl (Requip) 0.25 mg QHS PO Last administered on 03/28/17 20:01; Start 03/27/17 at 21:00 Sevelamer Carbonate (Renvela) 2,400 mg TIDWMEALS PO Last administered on 08:24; Start 03/27/17 at 17:00 Sodium Bicarbonate (Sodium Bicarbonate) 1,300 mg BID PO Last administered on 08:23; Start 03/27/17 at 21:00 Sucralfate (Carafate) 1 gm BID PO Last administered on 03/29/17 08:23; Start 03/27/17 at 21:00 Trazodone HCl (Desyrel) 50 mg QHS PRN PO sleep; Start 03/27/17 at 15:30 Warfarin Sodium (Coumadin) 5 mg DAILY16 PO Last administered on 03/28/17 20:02 ; Start 03/28/17 at 16:00; Stop 03/29/17 at 14:22; Status DC Zolpidem Tartrate (Ambien) 5 mg HS PRN PO sleep; Start 03/27/17 at 15:30 Non-Formulary Medication 1 puff Q6HRS PRN INH SHORTNESS OF BREATH; Start at 15:30; Status UNV Atorvastatin Calcium (Lipitor) 80 mg QHS PO Last administered on 03/28/17 20: 01; Start 03/27/17 at 21:00 Non-Formulary Medication 5 ml DAILY LEFTEYE ; Start 03/28/17 at 09:00; Status UNV Non-Formulary Medication 1 drop Q1HR OS ; Start 03/27/17 at 16:00; Status UNV Risperidone (RisperDAL) 0.5 mg QHS PO Last administered on 03/28/17 20:02; Start 03/27/17 at 21:00 Albuterol Sulfate (Ventolin Neb Soln) 2.5 mg PRN Q6HRS PRN NEB SHORTNESS OF BREATH Last administered on 03/27/17 19:49; Start 03/27/17 at 16:00 Warfarin Sodium (Coumadin Per Physician) 1 each PRN DAILY PRN MC SEE COMMENTS Last administered on 03/28/17 14:54; Start 03/27/17 at 16:15; Stop 03/29/17 at 14:02; Status DC Vancomycin HCl (Vanco Per Pharmacy) 1 each PRN DAILY PRN MC SEE COMMENTS Last administered on 03/29/17 14:42; Start 03/28/17 at 08:15 Linezolid (Zyvox) 600 mg ONCE ONCE PO Last administered on 03/28/17 08:53; Start 03/28/17 at 08:15; Stop 03/28/17 at 08:21; Status DC Meropenem 1 gm/ Sodium Chloride 100 ml @ 200 mls/hr DAILY IV ; Start 03/28/17 at 08:30; Stop 03/28/17 at 08:30; Status DC Gentamicin Sulfate 1 each ONCE ONCE MC ; Start 03/28/17 at 08:15; Stop at 08:33; Status DC Meropenem 1 gm/ Sodium Chloride 100 ml @ 200 mls/hr DAILY IV Last administered on 03/29/17 09:36; Start 03/28/17 at 08:30 Micafungin Sodium 100 mg/Dextrose 100 ml @ 100 mls/hr Q24H IV Last administered on 03/29/17 10:17; Start 03/28/17 at 10:00 Vancomycin HCl 2 gm/Sodium Chloride 500 ml @ 250 mls/hr ONCE ONCE IV Last administered on 03/28/17 11:20; Start 03/28/17 at 09:00; Stop 03/28/17 at 10:59 ; Status DC Gentamicin Sulfate 280 mg/ Sodium Chloride 107 ml @ 107 mls/hr ONCE ONCE IV Last administered on 03/28/17 09:00; Start 03/28/17 at 09:00; Stop 03/28/17 at 09:59; Status DC Magnesium Sulfate/ Dextrose 50 ml @ 25 mls/hr PRN DAILY PRN IV for Mag < 1.7 on am labs; Start 03/28/17 at 13:30 Sodium Chloride 1,000 ml @ 1,000 mls/hr Q1H PRN IV hypotension; Start 03/28/17 at 13:15; Stop 03/28/17 at 19:14; Status DC Albumin Human 200 ml @ 200 mls/hr 1X PRN PRN IV Hypotension; Start 03/28/17 at 13:15; Stop 03/28/17 at 19:14; Status DC Acetaminophen (Tylenol) 500 mg 1X PRN PRN PO MILD PAIN / TEMP; Start 03/28/17 at 13:15; Stop 03/29/17 at 13:14; Status DC Diphenhydramine HCl (Benadryl) 25 mg 1X PRN PRN IV ITCHING; Start 03/28/17 at 13:15; Stop 03/29/17 at 13:14; Status DC Labetalol HCl (Normodyne) 10 mg PRN Q1HR PRN IVP SBP > 180; Start 03/28/17 at 13:15; Stop 03/29/17 at 13:14; Status DC Clonidine HCl (Catapres) 0.1 mg 1X PRN PRN PO SBP > 180; Start 03/28/17 at 13: 15; Stop 03/29/17 at 13:14; Status DC Info (PHARMACY MONITORING -- do not chart) 1 each PRN DAILY PRN MC SEE COMMENTS ; Start 03/28/17 at 13:15 Lidocaine HCl 20 ml ONCE ONCE IJ Last administered on 03/28/17t 13:45; Start 03/28/17 at 13:45; Stop 03/28/17 at 13:46; Status DC Warfarin Sodium (Coumadin) 7.5 mg 1X WARF ONCE PO ; Start 03/28/17 at 16:00; Stop 03/28/17 at 16:01; Status Cancel Vancomycin HCl 1 each 1X ONCE MC Last administered on 03/29/17 06:00; Start 03/29/17 at 06:00; Stop 03/29/17 at 06:01; Status DC Chlorhexidine Gluconate (Peridex) 15 ml BID SWSP Last administered on 09:36; Start 03/29/17 at 09:30 Warfarin Sodium (Coumadin Per Pharmacy) 1 each PRN DAILY PRN MC SEE COMMENTS Last administered on 03/29/17t 14:24; Start 03/29/17 at 14:00 Warfarin Sodium (Coumadin) 7.5 mg 1X WARF ONCE PO ; Start 03/29/17 at 16:00; Stop 03/29/17 at 16:01 Vancomycin HCl 750 mg/Sodium Chloride 100 ml @ 100 mls/hr QTUTHSA IV ; Start at 16:00 Sodium Chloride 1,000 ml @ 1,000 mls/hr Q1H PRN IV hypotension; Start 03/29/17 at 15:11; Stop 03/29/17 at 21:10 Sodium Chloride 1,000 ml @ 400 mls/hr Q2H30M PRN IV PATENCY; Start 03/29/17 at 15:11; Stop 03/30/17 at 03:10 Info (PHARMACY MONITORING -- do not chart) 1 each PRN DAILY PRN MC SEE COMMENTS ; Start 03/29/17 at 15:15; Status UNV Info (PHARMACY MONITORING -- do not chart) 1 each PRN DAILY PRN MC SEE COMMENTS ; Start 03/29/17 at 15:15; Status UNV Active Scripts Active Levetiracetam 500 Mg Tablet 500 Mg PO BID Lidoderm (Lidocaine) 700 Mg Adh..patch 1 Patch TD DAILY Metoprolol Tartrate 50 Mg Tablet 50 Mg PO BID Synthroid (Levothyroxine Sodium) 175 Mcg Tablet 175 Mcg PO DAILY07 Isosorbide Mononitrate Er (Isosorbide Mononitrate) 30 Mg Tab.er.24h 30 Mg PO DAILY Reported Sodium Bicarbonate 650 Mg Tablet 2 Tab PO BID on dialysis days sunday, and sunday Meclizine Hcl 12.5 Mg Tablet 1 Tab PO TID Calcium Carbonate 500 Mg Tablet 500 Mg PO TIDWMEALS Ambien (Zolpidem Tartrate) 5 Mg Tablet 5 Mg PO HS PRN Alprazolam 0.25 Mg Tablet 1 Tab PO PRN Ventolin Hfa Inhaler (Albuterol Sulfate) 18 Gm Hfa.aer.ad 1 Puff INH Q6HRS PRN Ropinirole Hcl 0.25 Mg Tablet 0.25 Mg PO Citalopram Hbr (Citalopram Hydrobromide) 20 Mg Tablet 1 Tab PO DAILY Trazodone Hcl 50 Mg Tablet 0.5-1 Tab PO QHS Risperidone 0.5 Mg Tablet 1 Tab PO QHS Famotidine 20 Mg Tablet 20 Mg PO HS Coumadin (Warfarin Sodium) 5 Mg Tablet 1 Tab PO DAILY Nephro-Jimmy Tablet (Folic Acid/Vitamin B Comp W-C) 0.8 Mg Tablet 1 Tab PO DAILY Carafate (Sucralfate) 1 Gm Tablet 1 Tab PO BID Nitrostat (Nitroglycerin) 0.4 Mg Tab.subl 0.4 Mg SL PRN Q5MIN PRN Voltaren (Diclofenac Sodium) 100 Gm Gel..gram. 1 Gm TP BID Clopidogrel (Clopidogrel Bisulfate) 75 Mg Tablet 75 Mg PO DAILY07 Renvela (Sevelamer Carbonate) 800 Mg Tablet 2,400 Tab PO TIDWMEALS Vitamin D2 (Ergocalciferol (Vitamin D2)) 50,000 Unit Capsule 50,000 Unit PO WEEKLY weekly on Sunday Atorvastatin Calcium 80 Mg Tablet 80 Mg PO HS Allergies Allergies: Coded Allergies: iodine (Verified Allergy, Severe, THROAT SWELLING, 03/29/16) lisinopril (Verified Allergy, Severe, 03/16/16) Fish Containing Products (Verified Allergy, Intermediate, 03/16/16) Penicillins (Verified Allergy, Intermediate, SEE COMMENT, 04/13/16) 05/19/15 Pt doesnt know reaction; ID starting Meropenem, HAS TOLERATED CEFAZOLIN piperacillin (Verified Allergy, Intermediate, Hives, 03/16/16) tazobactam (Verified Allergy, Intermediate, 03/16/16) ROS Review of System GEN: Positive for fevers, chills HEENT: Denies any visual disturbances CV: Denies chest pain RESP: Denies shortness of air, positive for cough GI: Denies any nausea or vomiting : Denies hematuria, dysuria ENDO: Denies weight changes NEURO: Denies confusion, dizziness MSK: Denies weakness, joint pain/swelling SKIN: as per HPI Physical Exam General: Alert, Oriented X3 (seen on dialysis) Heart: Regular rate Abdomen: Soft Extremities: Other (palpable bilateral DP) Skin: Other (left tma with wound dehiscence, no active drainage, dorsum skin discoloration) Vitals VITALS Vital Signs Date Time Temp Pulse Resp B/P (MAP) Pulse Ox O2 Delivery O2 Flow Rate FiO2 03/29/17 11:00 101.9 94 20 88/43 (58) 96 Room Air 101.9 Labs Labs Laboratory Tests Test 03/27/17 15:30 03/27/17 20:43 03/28/17 00:00 03/28/17 07:21 Erythrocyte Sedimentation Rate 93 (0-15) Glucose (Fingerstick) 135 mg/dL (70-99) 141 mg/dL (70-99) Urine Collection Type Unknown Urine Color Yellow Urine Clarity Clear Urine pH 6.5 Urine Specific [place] 1.015 Urine Protein >=300 mg/dL (NEG-TRACE) Urine Glucose (UA) 100 mg/dL (NEG) Urine Ketones (Stick) Negative mg/dL (NEG) Urine Blood Negative (NEG) Urine Nitrite Negative (NEG) Urine Bilirubin Negative (NEG) Urine Urobilinogen Dipstick 1.0 mg/dL (0.2 mg/dL) Urine Leukocyte Esterase Negative (NEG) Urine RBC 6-10 /HPF (0-2) Urine WBC 1-4 /HPF (0-4) Urine Squamous Epithelial Cells Few /LPF Urine Bacteria 0 /HPF (0-FEW) Urine Hyaline Casts Few /HPF Test 03/28/17 09:10 03/28/17 11:06 03/28/17 18:28 03/28/17 20:00 White Blood Count 7.4 x10^3/uL (4.0-11.0) Red Blood Count 3.54 x10^6/uL (4.30-5.70) Hemoglobin 10.7 g/dL (13.0-17.5) Hematocrit 33.2 % (39.0-53.0) Mean Corpuscular Volume 94 fL (79-100) Mean Corpuscular Hemoglobin 30 pg (25-35) Mean Corpuscular Hemoglobin Concent 32 g/dL (31-37) Red Cell Distribution Width 16.4 % (11.5-14.5) Platelet Count 184 x10^3/uL (140-400) Neutrophils (%) (Auto) 82 % (31-73) Lymphocytes (%) (Auto) 6 % (24-48) Monocytes (%) (Auto) 10 % (0-9) Eosinophils (%) (Auto) 1 % (0-3) Basophils (%) (Auto) 1 % (0-3) Neutrophils # (Auto) 6.1 x10^3uL (1.8-7.7) Lymphocytes # (Auto) 0.5 x10^3/uL (1.0-4.8) Monocytes # (Auto) 0.7 x10^3/uL (0.0-1.1) Eosinophils # (Auto) 0.0 x10^3/uL (0.0-0.7) Basophils # (Auto) 0.1 x10^3/uL (0.0-0.2) Prothrombin Time 13.4 SEC (11.7-14.0) Prothromb Time International Ratio 1.1 (0.8-1.1) Sodium Level 135 mmol/L (136-145) Potassium Level 4.6 mmol/L (3.5-5.1) Chloride Level 99 mmol/L (98-107) Carbon Dioxide Level 28 mmol/L (21-32) Anion Gap 8 (6-14) Blood Urea Nitrogen 68 mg/dL (8-26) Creatinine 4.9 mg/dL (0.7-1.3) Estimated GFR (Cockcroft-Gault) 15.2 Glucose Level 160 mg/dL (70-99) Lactic Acid Level 1.0 mmol/L (0.4-2.0) Calcium Level 8.9 mg/dL (8.5-10.1) Glucose (Fingerstick) 153 mg/dL (70-99) 143 mg/dL (70-99) Urine Collection Type Unknown Urine Color Yellow Urine Clarity Clear Urine pH 6.0 Urine Specific [place] 1.015 Urine Protein >=300 mg/dL (NEG-TRACE) Urine Glucose (UA) Negative mg/dL (NEG) Urine Ketones (Stick) Negative mg/dL (NEG) Urine Blood Negative (NEG) Urine Nitrite Negative (NEG) Urine Bilirubin Negative (NEG) Urine Urobilinogen Dipstick 1.0 mg/dL (0.2 mg/dL) Urine Leukocyte Esterase Negative (NEG) Urine RBC 3-5 /HPF (0-2) Urine WBC Occ /HPF (0-4) Urine Squamous Epithelial Cells Few /LPF Urine Amorphous Sediment Present /HPF Urine Bacteria 0 /HPF (0-FEW) Test 03/28/17 21:16 03/29/17 05:15 03/29/17 07:30 03/29/17 11:01 Glucose (Fingerstick) 143 mg/dL (70-99) 153 mg/dL (70-99) 205 mg/dL (70-99) White Blood Count 6.4 x10^3/uL (4.0-11.0) Red Blood Count 3.49 x10^6/uL (4.30-5.70) Hemoglobin 10.6 g/dL (13.0-17.5) Hematocrit 32.8 % (39.0-53.0) Mean Corpuscular Volume 94 fL (79-100) Mean Corpuscular Hemoglobin 31 pg (25-35) Mean Corpuscular Hemoglobin Concent 33 g/dL (31-37) Red Cell Distribution Width 16.2 % (11.5-14.5) Platelet Count 160 x10^3/uL (140-400) Neutrophils (%) (Auto) 85 % (31-73) Lymphocytes (%) (Auto) 6 % (24-48) Monocytes (%) (Auto) 8 % (0-9) Eosinophils (%) (Auto) 0 % (0-3) Basophils (%) (Auto) 1 % (0-3) Neutrophils # (Auto) 5.4 x10^3uL (1.8-7.7) Lymphocytes # (Auto) 0.4 x10^3/uL (1.0-4.8) Monocytes # (Auto) 0.5 x10^3/uL (0.0-1.1) Eosinophils # (Auto) 0.0 x10^3/uL (0.0-0.7) Basophils # (Auto) 0.1 x10^3/uL (0.0-0.2) Prothrombin Time 15.3 SEC (11.7-14.0) Prothromb Time International Ratio 1.3 (0.8-1.1) Sodium Level 137 mmol/L (136-145) Potassium Level 4.5 mmol/L (3.5-5.1) Chloride Level 99 mmol/L (98-107) Carbon Dioxide Level 27 mmol/L (21-32) Anion Gap 11 (6-14) Blood Urea Nitrogen 39 mg/dL (8-26) Creatinine 4.6 mg/dL (0.7-1.3) Estimated GFR (Cockcroft-Gault) 16.4 Glucose Level 135 mg/dL (70-99) Calcium Level 8.7 mg/dL (8.5-10.1) Phosphorus Level 3.3 mg/dL (2.6-4.7) Magnesium Level 1.9 mg/dL (1.8-2.4) Albumin 2.8 g/dL (3.4-5.0) Random Vancomycin Level 13.7 mcg/mL Laboratory Tests Test 03/28/17 18:28 03/28/17 20:00 03/28/17 21:16 03/29/17 05:15 Glucose (Fingerstick) 143 mg/dL (70-99) 143 mg/dL (70-99) Urine Collection Type Unknown Urine Color Yellow Urine Clarity Clear Urine pH 6.0 Urine Specific [place] 1.015 Urine Protein >=300 mg/dL (NEG-TRACE) Urine Glucose (UA) Negative mg/dL (NEG) Urine Ketones (Stick) Negative mg/dL (NEG) Urine Blood Negative (NEG) Urine Nitrite Negative (NEG) Urine Bilirubin Negative (NEG) Urine Urobilinogen Dipstick 1.0 mg/dL (0.2 mg/dL) Urine Leukocyte Esterase Negative (NEG) Urine RBC 3-5 /HPF (0-2) Urine WBC Occ /HPF (0-4) Urine Squamous Epithelial Cells Few /LPF Urine Amorphous Sediment Present /HPF Urine Bacteria 0 /HPF (0-FEW) White Blood Count 6.4 x10^3/uL (4.0-11.0) Red Blood Count 3.49 x10^6/uL (4.30-5.70) Hemoglobin 10.6 g/dL (13.0-17.5) Hematocrit 32.8 % (39.0-53.0) Mean Corpuscular Volume 94 fL (79-100) Mean Corpuscular Hemoglobin 31 pg (25-35) Mean Corpuscular Hemoglobin Concent 33 g/dL (31-37) Red Cell Distribution Width 16.2 % (11.5-14.5) Platelet Count 160 x10^3/uL (140-400) Neutrophils (%) (Auto) 85 % (31-73) Lymphocytes (%) (Auto) 6 % (24-48) Monocytes (%) (Auto) 8 % (0-9) Eosinophils (%) (Auto) 0 % (0-3) Basophils (%) (Auto) 1 % (0-3) Neutrophils # (Auto) 5.4 x10^3uL (1.8-7.7) Lymphocytes # (Auto) 0.4 x10^3/uL (1.0-4.8) Monocytes # (Auto) 0.5 x10^3/uL (0.0-1.1) Eosinophils # (Auto) 0.0 x10^3/uL (0.0-0.7) Basophils # (Auto) 0.1 x10^3/uL (0.0-0.2) Prothrombin Time 15.3 SEC (11.7-14.0) Prothromb Time International Ratio 1.3 (0.8-1.1) Sodium Level 137 mmol/L (136-145) Potassium Level 4.5 mmol/L (3.5-5.1) Chloride Level 99 mmol/L (98-107) Carbon Dioxide Level 27 mmol/L (21-32) Anion Gap 11 (6-14) Blood Urea Nitrogen 39 mg/dL (8-26) Creatinine 4.6 mg/dL (0.7-1.3) Estimated GFR (Cockcroft-Gault) 16.4 Glucose Level 135 mg/dL (70-99) Calcium Level 8.7 mg/dL (8.5-10.1) Phosphorus Level 3.3 mg/dL (2.6-4.7) Magnesium Level 1.9 mg/dL (1.8-2.4) Albumin 2.8 g/dL (3.4-5.0) Random Vancomycin Level 13.7 mcg/mL Test 03/29/17 07:30 03/29/17 11:01 Glucose (Fingerstick) 153 mg/dL (70-99) 205 mg/dL (70-99) Assessment/Plan Assessment/Plan Assessment: Left TMA wound dehiscence with infection Palpable distal pulse examination Recommendations: Would defer treatment to Orthopedics for further management, it appears the patient has adequate circulation if additional debridement or additional amputation was needed Continue abx per ID Off load foot Dr. Belcher will see patient and review this plan and provide any additional recommendations as needed Thank you for the opportunity to participate in the care of this patient. GLENN LAND APRN Mar 29, 2017 15:32 MAGUI BELCHER II, MD Mar 29, 2017 20:28
[2017-03-29] MEDS ORDERED: VANCOMYCIN 750 MG in IV NORMAL SALINE 100ML 100 ML IV SCH (16:00)
[2017-03-29] MEDS ORDERED: WARFARIN 7.5 MG TABLET. PO ONE (16:00)
[2017-03-29] MEDS: ATORVASTATIN CALCIUM 40 MG TABLET. PO SCH (20:49)
[2017-03-29] MEDS: FAMOTIDINE 20 MG TABLET. PO SCH (20:49)
[2017-03-29] MEDS: risperiDONE 0.25 MG TABLET. PO SCH (20:50)
[2017-03-29] MEDS: rOPINIRole 0.25 MG TABLET. PO SCH (20:50)
[2017-03-29 23:21] VITALS: BP 151/68
[2017-03-30] VITALS (12 sets, daily range): BP systolic 106–171; BP diastolic 52–92
[2017-03-30 05:52] LABS: BASO # 0.1 x10^3/uL (0.0-0.2); BASO % 1 % (0-3); EOS % 1 % (0-3); HEMATOCRIT 29.7 % (39.0-53.0); LYMPH # 0.6 x10^3/uL (1.0-4.8); LYMPH % 10 % (24-48); MEAN CORPUSCULAR HEMOGLOBIN 31 pg (25-35); MEAN CORPUSCULAR HGB CONC 34 g/dL (31-37); MEAN CORPUSCULAR VOLUME 92 fL (79-100); MONO % 19 % (0-9); NEUT % 68 % (31-73); PLATELET COUNT 140 x10^3/uL (140-400); RED BLOOD COUNT 3.22 x10^6/uL (4.30-5.70); RED CELL DISTRIBUTION WIDTH 15.9 % (11.5-14.5); WHITE BLOOD COUNT 5.8 x10^3/uL (4.0-11.0)
[2017-03-30 06:03] LABS: INR 1.2 (0.8-1.1); PROTHROMBIN TIME PATIENT 14.6 SEC (11.7-14.0)
[2017-03-30] MEDS: LEVOTHYROXINE 175 MCG TABLET PO SCH (06:06)
[2017-03-30] MEDS: CLOPIDOGREL BISULFATE 75 MG TABLET PO SCH (06:06)
[2017-03-30 06:15] LABS: ALBUMIN 2.5 g/dL (3.4-5.0); CALCIUM 8.7 mg/dL (8.5-10.1); CREATININE 4.7 mg/dL (0.7-1.3); MAGNESIUM 2.1 mg/dL (1.8-2.4); PHOSPHORUS 3.4 mg/dL (2.6-4.7); POTASSIUM 3.8 mmol/L (3.5-5.1)
[2017-03-30] MEDS ORDERED: LIDOCAINE 1% 1 ML SYRINGE. ID PRN (07:00)
[2017-03-30] MEDS ORDERED: ONDANSETRON PF 4 MG/2 ML VIAL. IV PRN (07:00)
[2017-03-30] MEDS ORDERED: IV RINGERS,LACTATED 1000ML 1,000 ML IV SCH (07:00)
[2017-03-30] MEDS ORDERED: PROCHLORPERAZINE 10 MG/2 ML VIAL. IV PRN (07:00)
[2017-03-30] MEDS ORDERED: fentaNYL PF VIAL 100 MCG/2 ML VIAL IV PRN ×2 (07:00)
[2017-03-30] MEDS ORDERED: MORPHINE SULFATE 2 MG/ML DISP.SYRIN. IV PRN (07:00)
[2017-03-30] MEDS ORDERED: HYDROmorphone 2 MG/ML VIAL IV PRN (07:00)
[2017-03-30 07:41] LABS: % BASOS 3 % (0-3)
[2017-03-30] MEDS ORDERED: BUPIVAC MPF-EPI 0.5%-1:200000 30 ML VIAL. ONE (07:41)
[2017-03-30 07:42] LABS: PLT ESTIMATE ADEQUATE (ADEQUATE)
[2017-03-30] MEDS: SEVELAMER CARBONATE 800 MG TABLET. PO SCH ×3 (08:00→21:12)
[2017-03-30] MEDS: CALCIUM CARBONATE 500 MG TABLET PO SCH ×3 (08:00→21:13)
[2017-03-30] MEDS: SUCRALFATE 1 GM TABLET. PO SCH ×2 (08:34→21:13)
[2017-03-30] MEDS: MECLIZINE HCL 12.5 MG TABLET. PO SCH (08:36)
[2017-03-30] MEDS: MEROPENEM 1 GM in IV NORMAL SALINE 100ML 100 ML IV SCH (08:36)
[2017-03-30 08:47] LABS: HYPOCHROMIA SLIGHT
--- NOTE | 2017-03-30 08:50 | PDOC ---
Infectious Disease Note Subjective Subjective Feel much better. Concerned about his foot Still some fever but hungry ROS ROS GEN: Denies fevers, chills, sweats HEENT: Denies blurred vision, sore throat CV: Denies chest pain RESP: Denies shortness of air, cough GI: Denies n/v/d NEURO: Denies confusion, dizziness MSK: Denies weakness, joint pain/swelling Vital Sign Vital Signs Vital Signs Date Time Temp Pulse Resp B/P (MAP) Pulse Ox O2 Delivery O2 Flow Rate FiO2 03/30/17 07:00 99.6 102 20 171/92 (118) 93 Room Air 99.6 Physical Exam PHYSICAL EXAM GENERAL: NAD, Alert,in bed, Looks better HEENT: PERRL, OC/OP- tongue with bacterial overgrowth -some better NECK: Supple, no JVD, no LN LUNGS: Clear HEART: S1S2, no gallop, no murmur ABD: Soft, NT, no organomegaly, no rebound, obese EXT: Left foot heavily bandaged - clean. 1 plus Bilat. 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: Alert, oriented x 3, no focal neurologic deficit SKIN: No rash IV:peripheral RUE ok Labs Lab Laboratory Tests Test 03/29/17 11:01 03/29/17 17:36 03/30/17 04:50 03/30/17 07:26 Glucose (Fingerstick) 205 mg/dL (70-99) 173 mg/dL (70-99) 136 mg/dL (70-99) White Blood Count 5.8 x10^3/uL (4.0-11.0) Red Blood Count 3.22 x10^6/uL (4.30-5.70) Hemoglobin 10.0 g/dL (13.0-17.5) Hematocrit 29.7 % (39.0-53.0) Mean Corpuscular Volume 92 fL (79-100) Mean Corpuscular Hemoglobin 31 pg (25-35) Mean Corpuscular Hemoglobin Concent 34 g/dL (31-37) Red Cell Distribution Width 15.9 % (11.5-14.5) Platelet Count 140 x10^3/uL (140-400) Neutrophils (%) (Auto) 68 % (31-73) Lymphocytes (%) (Auto) 10 % (24-48) Monocytes (%) (Auto) 19 % (0-9) Eosinophils (%) (Auto) 1 % (0-3) Basophils (%) (Auto) 1 % (0-3) Neutrophils # (Auto) 4.0 x10^3uL (1.8-7.7) Lymphocytes # (Auto) 0.6 x10^3/uL (1.0-4.8) Monocytes # (Auto) 1.1 x10^3/uL (0.0-1.1) Eosinophils # (Auto) 0.0 x10^3/uL (0.0-0.7) Basophils # (Auto) 0.1 x10^3/uL (0.0-0.2) Prothrombin Time 14.6 SEC (11.7-14.0) Prothromb Time International Ratio 1.2 (0.8-1.1) Sodium Level 138 mmol/L (136-145) Potassium Level 3.8 mmol/L (3.5-5.1) Chloride Level 98 mmol/L (98-107) Carbon Dioxide Level 32 mmol/L (21-32) Anion Gap 8 (6-14) Blood Urea Nitrogen 30 mg/dL (8-26) Creatinine 4.7 mg/dL (0.7-1.3) Estimated GFR (Cockcroft-Gault) 16.0 Glucose Level 116 mg/dL (70-99) Calcium Level 8.7 mg/dL (8.5-10.1) Phosphorus Level 3.4 mg/dL (2.6-4.7) Magnesium Level 2.1 mg/dL (1.8-2.4) Albumin 2.5 g/dL (3.4-5.0) Objective Assessment Staph aureus Sepsis - POA - GPC in blood 1/3 bottles so far. Clinically looks better Left foot infected wound Tongue bacterial overgrowth Fever - persists ? sepsis vs foot Zosyn/pcn allergy - has tolerated Cefepime CKD Plan Plan of Care Cont Peridex Zyvox po times one 03/28/Gent times one 03/28 Cont Meropenem given DM foot (on Keppra)/Vanc/Micafungin F/u labs CBC in am. ? MSSA vs MRSA blood cults Await further Ortho surgery today Repeat Blood cults in am on HD Spoke with Dr. Batista this am - he does not feel there are vascular problems in his lower leg that need to be addressed and will let Ortho perform surgery JUAN ANTONIO CHASE MD Mar 30, 2017 08:50
[2017-03-30] MEDS: METOPROLOL TART IMMED RELEASE 50 MG TABLET. PO SCH ×2 (08:51→21:14)
[2017-03-30] MEDS: ISOSORBIDE MONONITRATE ER 30 MG TAB.ER.24H PO SCH (08:52)
[2017-03-30] MEDS: levETIRAcetam 500 MG TABLET PO SCH ×2 (08:53→21:12)
[2017-03-30] MEDS: CITALOPRAM 20 MG TABLET. PO SCH (08:53)
[2017-03-30] MEDS: SODIUM BICARBONATE 650 MG TABLET. PO SCH ×2 (08:53→21:13)
[2017-03-30] MEDS: LIDOCAINE (700MG/PATCH) PATCH. TD SCH (08:54)
[2017-03-30] MEDS: DICLOFENAC SODIUM 1% TOPICAL GEL 100GM TUBE. TP SCH ×2 (09:00→21:00)
[2017-03-30] MEDS: FOLIC/VIT B COMP W-C (RENAL) TABLET. PO SCH (09:00)
[2017-03-30] MEDS: CHLORHEXIDINE 0.12% 15 ML MOUTHWASH. SWSP SCH ×2 (09:00→21:00)
[2017-03-30] MEDS ORDERED: IV NORMAL SALINE 1000ML BAG 1,000 ML IV SCH ×2 (10:00→16:30)
[2017-03-30] MEDS: MICAFUNGIN 100 MG in IV DEXTROSE 5% 100 ML IV SCH (10:04)
--- NOTE | 2017-03-30 12:06 | PDOC ---
PROGRESS NOTES Chief Complaint Chief Complaint Staph BACTEREMIA 1. Fevers ,sepsis with left foot cellulitis 2. recent LEft foot osteo post op wound, gaping sutures, subcutaneous edema around - CRP 62, fevers 3. ESRD on HD TTHS 4. Anemia of CKD 5. Obesity BMI 37 6. Hx Left foot infected wound with osteomyelitis. Enterobacter. s/p TMA, closed wound, 03/02 7. Hypothyroidism chronic 8. History of coronary artery disease 9. History of DVT's on warfarin 11. History of chronic back pain 12. Paroxysmal atrial fibrillation on warfarin 13. Obesity 14. GERD 1/3 + bacteremia wit staph aureus plan: fu with id, on multiple abx waiting for i and d TODAY with ortho fu with vascular, vascular sx needed on home meds cont warfarin post sx today, INR daily HD as regularly History of Present Illness History of Present Illness cont having high fever 1/3 + bcx MSSA VS. MRSA Vitals Vitals Vital Signs Date Time Temp Pulse Resp B/P (MAP) Pulse Ox O2 Delivery O2 Flow Rate FiO2 03/30/17 11:00 100.7 82 20 124/68 (86) 95 Room Air 100.7 Physical Exam General: Alert, Oriented X3 (seen on dialysis) Heart: Regular rate Lungs: Clear Abdomen: Soft Extremities: Other (palpable bilateral DP) Skin: Other (left tma with wound dehiscence, no active drainage, dorsum skin discoloration) Labs LABS Laboratory Tests Test 03/29/17 17:36 03/30/17 04:50 03/30/17 07:26 03/30/17 11:49 Glucose (Fingerstick) 173 mg/dL (70-99) 136 mg/dL (70-99) 123 mg/dL (70-99) White Blood Count 5.8 x10^3/uL (4.0-11.0) Red Blood Count 3.22 x10^6/uL (4.30-5.70) Hemoglobin 10.0 g/dL (13.0-17.5) Hematocrit 29.7 % (39.0-53.0) Mean Corpuscular Volume 92 fL (79-100) Mean Corpuscular Hemoglobin 31 pg (25-35) Mean Corpuscular Hemoglobin Concent 34 g/dL (31-37) Red Cell Distribution Width 15.9 % (11.5-14.5) Platelet Count 140 x10^3/uL (140-400) Neutrophils (%) (Auto) 68 % (31-73) Lymphocytes (%) (Auto) 10 % (24-48) Monocytes (%) (Auto) 19 % (0-9) Eosinophils (%) (Auto) 1 % (0-3) Basophils (%) (Auto) 1 % (0-3) Neutrophils # (Auto) 4.0 x10^3uL (1.8-7.7) Lymphocytes # (Auto) 0.6 x10^3/uL (1.0-4.8) Monocytes # (Auto) 1.1 x10^3/uL (0.0-1.1) Eosinophils # (Auto) 0.0 x10^3/uL (0.0-0.7) Basophils # (Auto) 0.1 x10^3/uL (0.0-0.2) Segmented Neutrophils % 80 % (35-66) Band Neutrophils % 2 % (0-9) Lymphocytes % 3 % (24-48) Monocytes % 12 % (0-10) Basophils % 3 % (0-3) Blast Cells % (Manual) % (0-0) Platelet Estimate Adequate (ADEQUATE) Hypochromasia Slight Prothrombin Time 14.6 SEC (11.7-14.0) Prothromb Time International Ratio 1.2 (0.8-1.1) Sodium Level 138 mmol/L (136-145) Potassium Level 3.8 mmol/L (3.5-5.1) Chloride Level 98 mmol/L (98-107) Carbon Dioxide Level 32 mmol/L (21-32) Anion Gap 8 (6-14) Blood Urea Nitrogen 30 mg/dL (8-26) Creatinine 4.7 mg/dL (0.7-1.3) Estimated GFR (Cockcroft-Gault) 16.0 Glucose Level 116 mg/dL (70-99) Calcium Level 8.7 mg/dL (8.5-10.1) Phosphorus Level 3.4 mg/dL (2.6-4.7) Magnesium Level 2.1 mg/dL (1.8-2.4) Albumin 2.5 g/dL (3.4-5.0) Review of Systems Review of Systems no chills, sob or chest pain Assessment and Plan Assessmemt and Plan Problems Medical Problems: (1) End stage renal disease Status: Acute (2) Fever Status: Acute Problems: Comment Review of Relevant I have reviewed the following items lila (where applicable) has been applied. Labs Laboratory Tests Test 03/28/17 18:28 03/28/17 20:00 03/28/17 21:16 03/29/17 05:15 Glucose (Fingerstick) 143 mg/dL (70-99) 143 mg/dL (70-99) Urine Collection Type Unknown Urine Color Yellow Urine Clarity Clear Urine pH 6.0 Urine Specific Farina 1.015 Urine Protein >=300 mg/dL (NEG-TRACE) Urine Glucose (UA) Negative mg/dL (NEG) Urine Ketones (Stick) Negative mg/dL (NEG) Urine Blood Negative (NEG) Urine Nitrite Negative (NEG) Urine Bilirubin Negative (NEG) Urine Urobilinogen Dipstick 1.0 mg/dL (0.2 mg/dL) Urine Leukocyte Esterase Negative (NEG) Urine RBC 3-5 /HPF (0-2) Urine WBC Occ /HPF (0-4) Urine Squamous Epithelial Cells Few /LPF Urine Amorphous Sediment Present /HPF Urine Bacteria 0 /HPF (0-FEW) White Blood Count 6.4 x10^3/uL (4.0-11.0) Red Blood Count 3.49 x10^6/uL (4.30-5.70) Hemoglobin 10.6 g/dL (13.0-17.5) Hematocrit 32.8 % (39.0-53.0) Mean Corpuscular Volume 94 fL (79-100) Mean Corpuscular Hemoglobin 31 pg (25-35) Mean Corpuscular Hemoglobin Concent 33 g/dL (31-37) Red Cell Distribution Width 16.2 % (11.5-14.5) Platelet Count 160 x10^3/uL (140-400) Neutrophils (%) (Auto) 85 % (31-73) Lymphocytes (%) (Auto) 6 % (24-48) Monocytes (%) (Auto) 8 % (0-9) Eosinophils (%) (Auto) 0 % (0-3) Basophils (%) (Auto) 1 % (0-3) Neutrophils # (Auto) 5.4 x10^3uL (1.8-7.7) Lymphocytes # (Auto) 0.4 x10^3/uL (1.0-4.8) Monocytes # (Auto) 0.5 x10^3/uL (0.0-1.1) Eosinophils # (Auto) 0.0 x10^3/uL (0.0-0.7) Basophils # (Auto) 0.1 x10^3/uL (0.0-0.2) Prothrombin Time 15.3 SEC (11.7-14.0) Prothromb Time International Ratio 1.3 (0.8-1.1) Sodium Level 137 mmol/L (136-145) Potassium Level 4.5 mmol/L (3.5-5.1) Chloride Level 99 mmol/L (98-107) Carbon Dioxide Level 27 mmol/L (21-32) Anion Gap 11 (6-14) Blood Urea Nitrogen 39 mg/dL (8-26) Creatinine 4.6 mg/dL (0.7-1.3) Estimated GFR (Cockcroft-Gault) 16.4 Glucose Level 135 mg/dL (70-99) Calcium Level 8.7 mg/dL (8.5-10.1) Phosphorus Level 3.3 mg/dL (2.6-4.7) Magnesium Level 1.9 mg/dL (1.8-2.4) Albumin 2.8 g/dL (3.4-5.0) Random Vancomycin Level 13.7 mcg/mL Test 03/29/17 07:30 03/29/17 11:01 03/29/17 17:36 03/30/17 04:50 Glucose (Fingerstick) 153 mg/dL (70-99) 205 mg/dL (70-99) 173 mg/dL (70-99) White Blood Count 5.8 x10^3/uL (4.0-11.0) Red Blood Count 3.22 x10^6/uL (4.30-5.70) Hemoglobin 10.0 g/dL (13.0-17.5) Hematocrit 29.7 % (39.0-53.0) Mean Corpuscular Volume 92 fL (79-100) Mean Corpuscular Hemoglobin 31 pg (25-35) Mean Corpuscular Hemoglobin Concent 34 g/dL (31-37) Red Cell Distribution Width 15.9 % (11.5-14.5) Platelet Count 140 x10^3/uL (140-400) Neutrophils (%) (Auto) 68 % (31-73) Lymphocytes (%) (Auto) 10 % (24-48) Monocytes (%) (Auto) 19 % (0-9) Eosinophils (%) (Auto) 1 % (0-3) Basophils (%) (Auto) 1 % (0-3) Neutrophils # (Auto) 4.0 x10^3uL (1.8-7.7) Lymphocytes # (Auto) 0.6 x10^3/uL (1.0-4.8) Monocytes # (Auto) 1.1 x10^3/uL (0.0-1.1) Eosinophils # (Auto) 0.0 x10^3/uL (0.0-0.7) Basophils # (Auto) 0.1 x10^3/uL (0.0-0.2) Segmented Neutrophils % 80 % (35-66) Band Neutrophils % 2 % (0-9) Lymphocytes % 3 % (24-48) Monocytes % 12 % (0-10) Basophils % 3 % (0-3) Blast Cells % (Manual) % (0-0) Platelet Estimate Adequate (ADEQUATE) Hypochromasia Slight Prothrombin Time 14.6 SEC (11.7-14.0) Prothromb Time International Ratio 1.2 (0.8-1.1) Sodium Level 138 mmol/L (136-145) Potassium Level 3.8 mmol/L (3.5-5.1) Chloride Level 98 mmol/L (98-107) Carbon Dioxide Level 32 mmol/L (21-32) Anion Gap 8 (6-14) Blood Urea Nitrogen 30 mg/dL (8-26) Creatinine 4.7 mg/dL (0.7-1.3) Estimated GFR (Cockcroft-Gault) 16.0 Glucose Level 116 mg/dL (70-99) Calcium Level 8.7 mg/dL (8.5-10.1) Phosphorus Level 3.4 mg/dL (2.6-4.7) Magnesium Level 2.1 mg/dL (1.8-2.4) Albumin 2.5 g/dL (3.4-5.0) Test 03/30/17 07:26 03/30/17 11:49 Glucose (Fingerstick) 136 mg/dL (70-99) 123 mg/dL (70-99) Laboratory Tests Test 03/29/17 17:36 03/30/17 04:50 03/30/17 07:26 03/30/17 11:49 Glucose (Fingerstick) 173 mg/dL (70-99) 136 mg/dL (70-99) 123 mg/dL (70-99) White Blood Count 5.8 x10^3/uL (4.0-11.0) Red Blood Count 3.22 x10^6/uL (4.30-5.70) Hemoglobin 10.0 g/dL (13.0-17.5) Hematocrit 29.7 % (39.0-53.0) Mean Corpuscular Volume 92 fL (79-100) Mean Corpuscular Hemoglobin 31 pg (25-35) Mean Corpuscular Hemoglobin Concent 34 g/dL (31-37) Red Cell Distribution Width 15.9 % (11.5-14.5) Platelet Count 140 x10^3/uL (140-400) Neutrophils (%) (Auto) 68 % (31-73) Lymphocytes (%) (Auto) 10 % (24-48) Monocytes (%) (Auto) 19 % (0-9) Eosinophils (%) (Auto) 1 % (0-3) Basophils (%) (Auto) 1 % (0-3) Neutrophils # (Auto) 4.0 x10^3uL (1.8-7.7) Lymphocytes # (Auto) 0.6 x10^3/uL (1.0-4.8) Monocytes # (Auto) 1.1 x10^3/uL (0.0-1.1) Eosinophils # (Auto) 0.0 x10^3/uL (0.0-0.7) Basophils # (Auto) 0.1 x10^3/uL (0.0-0.2) Segmented Neutrophils % 80 % (35-66) Band Neutrophils % 2 % (0-9) Lymphocytes % 3 % (24-48) Monocytes % 12 % (0-10) Basophils % 3 % (0-3) Blast Cells % (Manual) % (0-0) Platelet Estimate Adequate (ADEQUATE) Hypochromasia Slight Prothrombin Time 14.6 SEC (11.7-14.0) Prothromb Time International Ratio 1.2 (0.8-1.1) Sodium Level 138 mmol/L (136-145) Potassium Level 3.8 mmol/L (3.5-5.1) Chloride Level 98 mmol/L (98-107) Carbon Dioxide Level 32 mmol/L (21-32) Anion Gap 8 (6-14) Blood Urea Nitrogen 30 mg/dL (8-26) Creatinine 4.7 mg/dL (0.7-1.3) Estimated GFR (Cockcroft-Gault) 16.0 Glucose Level 116 mg/dL (70-99) Calcium Level 8.7 mg/dL (8.5-10.1) Phosphorus Level 3.4 mg/dL (2.6-4.7) Magnesium Level 2.1 mg/dL (1.8-2.4) Albumin 2.5 g/dL (3.4-5.0) Microbiology 03/27/17 Blood Culture - Final, Complete 03/27/17 Blood Culture Result 1 (BLAKE) - Final, Complete 03/27/17 Antimicrobic Susceptibility - Final, Complete Medications Current Medications Morphine Sulfate 4 mg 1X ONCE IV Last administered on 03/27/17 10:11; Start 03/27/17 at 10:00; Stop 03/27/17 at 10:05; Status DC Morphine Sulfate 4 mg PRN Q4HRS PRN IV PAIN Last administered on 03/28/17 05: 19; Start 03/27/17 at 13:30 Ondansetron HCl (Zofran) 4 mg PRN Q6HRS PRN IV NAUSEA/VOMITING; Start 03/27/17 at 15:15 Acetaminophen/ Hydrocodone Bitart (Lortab 10/325) 1 tab PRN Q6HRS PRN PO PAIN Last administered on 03/28/17 00:14; Start 03/27/17 at 15:15 Acetaminophen (Tylenol) 500 mg PRN Q6HRS PRN PO MILD PAIN / TEMP Last administered on 03/29/17 17:29; Start 03/27/17 at 15:15 Alprazolam (Xanax) 0.25 mg QID PRN PO ANXIETY / AGITATION; Start 03/27/17 at 15 :30 Calcium Carbonate/ Glycine (Oscal) 500 mg TIDWMEALS PO Last administered on 17:29; Start 03/27/17 at 17:00 Citalopram Hydrobromide (CeleXA) 20 mg DAILY PO Last administered on 03/30/17 08:53; Start 03/28/17 at 09:00 Clopidogrel Bisulfate (Plavix) 75 mg DAILY07 PO Last administered on 03/30/17 06:06; Start 03/28/17 at 07:00 Darbepoetin Jace (Aranesp) 100 mcg WEEKLY SQ ; Start 04/03/17 at 09:00; Status UNV Dexamethasone (Maxidex) 1 drop TID OS ; Start 03/27/17 at 21:00; Status Cancel Diclofenac Sodium (Voltaren) 1 ayaz BID TP ; Start 03/27/17 at 21:00 Ergocalciferol (Vitamin D2) 50,000 unit WEEKLY PO ; Start 04/03/17 at 09:00 Famotidine (Pepcid) 20 mg HS PO Last administered on 03/29/17 20:49; Start at 21:00 Vitamin B Complex/ Vitamin C (Fernanda-Jimmy) 1 tab DAILY PO Last administered on 08:23; Start 03/28/17 at 09:00 Isosorbide Mononitrate (Imdur) 30 mg DAILY PO Last administered on 03/30/17 08 :52; Start 03/28/17 at 09:00 Ketorolac Tromethamine (Acular) 1 drop BID OS ; Start 03/27/17 at 21:00; Status Cancel Levetiracetam (Keppra) 500 mg BID PO Last administered on 03/30/17 08:53; Start 03/27/17 at 21:00 Levothyroxine Sodium (Synthroid) 175 mcg DAILY07 PO Last administered on 06:06; Start 03/28/17 at 07:00 Lidocaine (Lidoderm) 1 patch DAILY TD ; Start 03/28/17 at 09:00; Stop 03/30/17 at 11:00; Status DC Meclizine HCl (Antivert) 12.5 mg TID PO Last administered on 03/29/17 20:49; Start 03/27/17 at 21:00; Stop 03/30/17 at 11:01; Status DC Metoprolol Tartrate (Lopressor) 50 mg BID PO Last administered on 03/30/17 08: 51; Start 03/27/17 at 21:00 Nitroglycerin (Nitrostat) 0.4 mg PRN Q5MIN PRN SL CHEST PAIN; Start 03/27/17 at 15:30 Ropinirole HCl (Requip) 0.25 mg QHS PO Last administered on 03/29/17 20:50; Start 03/27/17 at 21:00 Sevelamer Carbonate (Renvela) 2,400 mg TIDWMEALS PO Last administered on 17:28; Start 03/27/17 at 17:00 Sodium Bicarbonate (Sodium Bicarbonate) 1,300 mg BID PO Last administered on 20:49; Start 03/27/17 at 21:00 Sucralfate (Carafate) 1 gm BID PO Last administered on 03/29/17 21:54; Start 03/27/17 at 21:00 Trazodone HCl (Desyrel) 50 mg QHS PRN PO sleep; Start 03/27/17 at 15:30 Warfarin Sodium (Coumadin) 5 mg DAILY16 PO Last administered on 03/28/17 20:02 ; Start 03/28/17 at 16:00; Stop 03/29/17 at 14:22; Status DC Zolpidem Tartrate (Ambien) 5 mg HS PRN PO sleep; Start 03/27/17 at 15:30 Non-Formulary Medication 1 puff Q6HRS PRN INH SHORTNESS OF BREATH; Start at 15:30; Status UNV Atorvastatin Calcium (Lipitor) 80 mg QHS PO Last administered on 03/29/17 20: 49; Start 03/27/17 at 21:00 Non-Formulary Medication 5 ml DAILY LEFTEYE ; Start 03/28/17 at 09:00; Status UNV Non-Formulary Medication 1 drop Q1HR OS ; Start 03/27/17 at 16:00; Status UNV Risperidone (RisperDAL) 0.5 mg QHS PO Last administered on 03/29/17 20:50; Start 03/27/17 at 21:00 Albuterol Sulfate (Ventolin Neb Soln) 2.5 mg PRN Q6HRS PRN NEB SHORTNESS OF BREATH Last administered on 03/27/17 19:49; Start 03/27/17 at 16:00 Warfarin Sodium (Coumadin Per Physician) 1 each PRN DAILY PRN MC SEE COMMENTS Last administered on 03/28/17 14:54; Start 03/27/17 at 16:15; Stop 03/29/17 at 14:02; Status DC Vancomycin HCl (Vanco Per Pharmacy) 1 each PRN DAILY PRN MC SEE COMMENTS Last administered on 03/29/17 14:42; Start 03/28/17 at 08:15 Linezolid (Zyvox) 600 mg ONCE ONCE PO Last administered on 03/28/17 08:53; Start 03/28/17 at 08:15; Stop 03/28/17 at 08:21; Status DC Meropenem 1 gm/ Sodium Chloride 100 ml @ 200 mls/hr DAILY IV ; Start 03/28/17 at 08:30; Stop 03/28/17 at 08:30; Status DC Gentamicin Sulfate 1 each ONCE ONCE MC ; Start 03/28/17 at 08:15; Stop at 08:33; Status DC Meropenem 1 gm/ Sodium Chloride 100 ml @ 200 mls/hr DAILY IV Last administered on 03/30/17 08:36; Start 03/28/17 at 08:30 Micafungin Sodium 100 mg/Dextrose 100 ml @ 100 mls/hr Q24H IV Last administered on 03/30/17 10:04; Start 03/28/17 at 10:00 Vancomycin HCl 2 gm/Sodium Chloride 500 ml @ 250 mls/hr ONCE ONCE IV Last administered on 03/28/17 11:20; Start 03/28/17 at 09:00; Stop 03/28/17 at 10:59 ; Status DC Gentamicin Sulfate 280 mg/ Sodium Chloride 107 ml @ 107 mls/hr ONCE ONCE IV Last administered on 03/28/17 09:00; Start 03/28/17 at 09:00; Stop 03/28/17 at 09:59; Status DC Magnesium Sulfate/ Dextrose 50 ml @ 25 mls/hr PRN DAILY PRN IV for Mag < 1.7 on am labs; Start 03/28/17 at 13:30 Sodium Chloride 1,000 ml @ 1,000 mls/hr Q1H PRN IV hypotension; Start 03/28/17 at 13:15; Stop 03/28/17 at 19:14; Status DC Albumin Human 200 ml @ 200 mls/hr 1X PRN PRN IV Hypotension; Start 03/28/17 at 13:15; Stop 03/28/17 at 19:14; Status DC Acetaminophen (Tylenol) 500 mg 1X PRN PRN PO MILD PAIN / TEMP; Start 03/28/17 at 13:15; Stop 03/29/17 at 13:14; Status DC Diphenhydramine HCl (Benadryl) 25 mg 1X PRN PRN IV ITCHING; Start 03/28/17 at 13:15; Stop 03/29/17 at 13:14; Status DC Labetalol HCl (Normodyne) 10 mg PRN Q1HR PRN IVP SBP > 180; Start 03/28/17 at 13:15; Stop 03/29/17 at 13:14; Status DC Clonidine HCl (Catapres) 0.1 mg 1X PRN PRN PO SBP > 180; Start 03/28/17 at 13: 15; Stop 03/29/17 at 13:14; Status DC Info (PHARMACY MONITORING -- do not chart) 1 each PRN DAILY PRN MC SEE COMMENTS ; Start 03/28/17 at 13:15 Lidocaine HCl 20 ml ONCE ONCE IJ Last administered on 03/28/17 13:45; Start 03/28/17 at 13:45; Stop 03/28/17 at 13:46; Status DC Warfarin Sodium (Coumadin) 7.5 mg 1X WARF ONCE PO ; Start 03/28/17 at 16:00; Stop 03/28/17 at 16:01; Status Cancel Vancomycin HCl 1 each 1X ONCE MC Last administered on 03/29/17 06:00; Start 03/29/17 at 06:00; Stop 03/29/17 at 06:01; Status DC Chlorhexidine Gluconate (Peridex) 15 ml BID SWSP Last administered on 09:00; Start 03/29/17 at 09:30 Warfarin Sodium (Coumadin Per Pharmacy) 1 each PRN DAILY PRN MC SEE COMMENTS Last administered on 03/29/17 14:24; Start 03/29/17 at 14:00 Warfarin Sodium (Coumadin) 7.5 mg 1X WARF ONCE PO ; Start 03/29/17 at 16:00; Stop 03/29/17 at 16:01; Status DC Vancomycin HCl 750 mg/Sodium Chloride 100 ml @ 100 mls/hr QTUTHSA IV Last administered on 03/29/17t 17:30; Start 03/29/17 at 16:00 Sodium Chloride 1,000 ml @ 1,000 mls/hr Q1H PRN IV hypotension; Start 03/29/17 at 15:11; Stop 03/29/17 at 21:10; Status DC Sodium Chloride 1,000 ml @ 400 mls/hr Q2H30M PRN IV PATENCY; Start 03/29/17 at 15:11; Stop 03/30/17 at 03:10; Status DC Info (PHARMACY MONITORING -- do not chart) 1 each PRN DAILY PRN MC SEE COMMENTS ; Start 03/29/17 at 15:15; Status UNV Info (PHARMACY MONITORING -- do not chart) 1 each PRN DAILY PRN MC SEE COMMENTS ; Start 03/29/17 at 15:15; Status UNV Ondansetron HCl (Zofran) 4 mg PRN Q6HRS PRN IV NAUSEA/VOMITING; Start 03/30/17 at 07:00; Stop 03/31/17 at 06:59 Fentanyl Citrate (Fentanyl 2ml Vial) 25 mcg PRN Q5MIN PRN IV MILD PAIN; Start 03/30/17 at 07:00; Stop 03/31/17 at 06:59 Fentanyl Citrate (Fentanyl 2ml Vial) 50 mcg PRN Q5MIN PRN IV MODERATE PAIN; Start 03/30/17 at 07:00; Stop 03/31/17 at 06:59 Morphine Sulfate 1 mg PRN Q10MIN PRN IV SEVERE PAIN; Start 03/30/17 at 07:00; Stop 03/31/17 at 06:59 Ringer's Solution 1,000 ml @ 0 mls/hr Q0M IV ; Start 03/30/17 at 07:00; Stop at 18:59; Status Cancel Lidocaine HCl 2 ml PRN 1X PRN ID PRIOR TO IV START; Start 03/30/17 at 07:00; Stop 03/31/17 at 06:59 Hydromorphone HCl (Dilaudid) 0.5 mg PRN Q10MIN PRN IV SEV PAIN, Second choice; Start 03/30/17 at 07:00; Stop 03/31/17 at 06:59 Prochlorperazine Edisylate (Compazine) 5 mg PACU PRN PRN IV NAUSEA, MRX1; Start 03/30/17 at 07:00; Stop 03/31/17 at 06:59 Bupivacaine HCl/ Epinephrine Bitart (Sensorcain-Mpf Epi 0.5%-1:[id number]) 30 ml STK -MED ONCE .ROUTE ; Start 03/30/17 at 07:41; Stop 03/30/17 at 07:42; Status DC Sodium Chloride 1,000 ml @ 0 mls/hr Q0M IV ; Start 03/30/17 at 10:00 Active Scripts Active Levetiracetam 500 Mg Tablet 500 Mg PO BID Lidoderm (Lidocaine) 700 Mg Adh..patch 1 Patch TD DAILY Metoprolol Tartrate 50 Mg Tablet 50 Mg PO BID Synthroid (Levothyroxine Sodium) 175 Mcg Tablet 175 Mcg PO DAILY07 Isosorbide Mononitrate Er (Isosorbide Mononitrate) 30 Mg Tab.er.24h 30 Mg PO DAILY Reported Sodium Bicarbonate 650 Mg Tablet 2 Tab PO BID on dialysis days sunday, and sunday Meclizine Hcl 12.5 Mg Tablet 1 Tab PO TID Calcium Carbonate 500 Mg Tablet 500 Mg PO TIDWMEALS Ambien (Zolpidem Tartrate) 5 Mg Tablet 5 Mg PO HS PRN Alprazolam 0.25 Mg Tablet 1 Tab PO PRN Ventolin Hfa Inhaler (Albuterol Sulfate) 18 Gm Hfa.aer.ad 1 Puff INH Q6HRS PRN Ropinirole Hcl 0.25 Mg Tablet 0.25 Mg PO Citalopram Hbr (Citalopram Hydrobromide) 20 Mg Tablet 1 Tab PO DAILY Trazodone Hcl 50 Mg Tablet 0.5-1 Tab PO QHS Risperidone 0.5 Mg Tablet 1 Tab PO QHS Famotidine 20 Mg Tablet 20 Mg PO HS Coumadin (Warfarin Sodium) 5 Mg Tablet 1 Tab PO DAILY Nephro-Jimmy Tablet (Folic Acid/Vitamin B Comp W-C) 0.8 Mg Tablet 1 Tab PO DAILY Carafate (Sucralfate) 1 Gm Tablet 1 Tab PO BID Nitrostat (Nitroglycerin) 0.4 Mg Tab.subl 0.4 Mg SL PRN Q5MIN PRN Voltaren (Diclofenac Sodium) 100 Gm Gel..gram. 1 Gm TP BID Clopidogrel (Clopidogrel Bisulfate) 75 Mg Tablet 75 Mg PO DAILY07 Renvela (Sevelamer Carbonate) 800 Mg Tablet 2,400 Tab PO TIDWMEALS Vitamin D2 (Ergocalciferol (Vitamin D2)) 50,000 Unit Capsule 50,000 Unit PO WEEKLY weekly on Sunday Atorvastatin Calcium 80 Mg Tablet 80 Mg PO HS Vitals/I & O Vital Sign - Last 24 Hours 03/29/17 03/29/17 03/29/17 03/29/17 15:00 20:00 20:49 23:21 Temp 101.6 102.9 101.6 102.9 Pulse 106 102 61 Resp 20 20 B/P (MAP) 168/80 (109) 143/67 151/68 (95) Pulse Ox 95 99 O2 Delivery Room Air Room Air Room Air 03/30/17 03/30/17 03/30/17 03/30/17 03:00 07:00 08:00 08:51 Temp 99.7 99.6 99.7 99.6 Pulse 93 102 100 Resp 18 20 B/P (MAP) 142/76 (98) 171/92 (118) 171/92 Pulse Ox 96 93 O2 Delivery Room Air Room Air Room Air 03/30/17 03/30/17 08:52 11:00 Temp 100.7 100.7 Pulse 100 82 Resp 20 B/P (MAP) 171/92 124/68 (86) Pulse Ox 95 O2 Delivery Room Air Intake and Output 03/29/17 03/29/17 03/30/17 15:00 23:00 07:00 Intake Total 300 ml 600 ml Output Total 100 ml Balance 200 ml 600 ml SKYLAR TSE MD Mar 30, 2017 12:06
--- NOTE | 2017-03-30 13:34 | PDOC ---
SUBJECTIVE ROS ESRD doign OK overal l CVS: no Orthopnea, no CP RESP: no SOB, no MCCLAIN GI: no Nausea, n Vomiting : on Dysuria, no Urgency OBJECTIVE Vital Signs Vital Signs Date Time Temp Pulse Resp B/P (MAP) Pulse Ox O2 Delivery O2 Flow Rate FiO2 03/30/17 11:00 100.7 82 20 124/68 (86) 95 Room Air 100.7 I & 0 Intake and Output 03/30/17 07:00 Intake Total 900 ml Output Total 100 ml Balance 800 ml Intake Oral 900 ml Output Urine Total 100 ml PHYSICAL EXAM Physical Exam General Appearance: Awake Alert Oriented x 3 In no Distress Eyes: VIsion Unchanged Conjunctiva Normal EN: No EN Drainage Mucous Memb. moist Neck: no JVD no JVP Supple no Thyromegaly CVS: S1 S2 + Murmur No Gallop No Rub no Edema Resp: no Rales no Rhonchi no Acc. Muscle use GI: BAS +ve NO Bruit Non Tender Non Distended : no CVA tenderness; no Suprapubic Tenderness Assessment & Plan ESRD: Current fluid and E-lyte status does not necessitate emergent need for dialysis. Will re-evaluate for dialysis in the am and continue on TTSat schedule. Anemia: started on Epogen (high likelihood of drop in H/H with ongoing febrile illness) Transfuse with next HD as needed. HTN: Current BP meds reviewed. See orders for changes. Bone & Mineral: follow phos and alter binder regimen as needed - currently doing good Febrile illness - IV Abx per Dr Huerta Hypoalbuminemia - suspect due to ch Wound/ infection and catabolism from febrile illness Discussed Plan of Care and prognosis etc. at length with family/ pt. COMMENT/RELEVANT DATA Meds Current Medications Medications (Trade) Dose Ordered Sig/[place] Start Time Stop Time Status Last Admin Dose Admin Acetaminophen (Tylenol) 500 mg 1X PRN PRN 03/28/17 13:15 03/29/17 13:14 DC Acetaminophen/ Hydrocodone Bitart (Lortab 10/325) 1 tab PRN Q6HRS PRN 03/27/17 15:15 03/28/17 00:14 1 TAB Albumin Human 200 ml @ 200 mls/hr 1X PRN PRN 03/28/17 13:15 03/28/17 19:14 DC Albuterol Sulfate (Ventolin Neb Soln) 2.5 mg PRN Q6HRS PRN 03/27/17 16:00 03/27/17 19:49 2.5 MG Alprazolam (Xanax) 0.25 mg QID PRN 03/27/17 15:30 Atorvastatin Calcium (Lipitor) 80 mg QHS 03/27/17 21:00 03/29/17 20:49 80 MG Bupivacaine HCl/ Epinephrine Bitart (Sensorcain-Mpf Epi 0.5%-[id number]) 30 ml STK-MED ONCE 03/30/17 07:41 03/30/17 07:42 DC Calcium Carbonate/ Glycine (Oscal) 500 mg TIDWMEALS 03/27/17 17:00 03/29/17 17:29 500 MG Chlorhexidine Gluconate (Peridex) 15 ml BID 03/29/17 09:30 03/30/17 09:00 15 ML Citalopram Hydrobromide (CeleXA) 20 mg DAILY 03/28/17 09:00 03/30/17 08:53 20 MG Clonidine HCl (Catapres) 0.1 mg 1X PRN PRN 03/28/17 13:15 03/29/17 13:14 DC Clopidogrel Bisulfate (Plavix) 75 mg DAILY07 03/28/17 07:00 03/30/17 06:06 75 MG Darbepoetin Jace (Aranesp) 100 mcg WEEKLY 04/03/17 09:00 UNV Dexamethasone (Maxidex) 1 drop TID 03/27/17 21:00 Cancel Diclofenac Sodium (Voltaren) 1 ayaz BID 03/27/17 21:00 Diphenhydramine HCl (Benadryl) 25 mg 1X PRN PRN 03/28/17 13:15 03/29/17 13:14 DC Ergocalciferol (Vitamin D2) 50,000 unit WEEKLY 04/03/17 09:00 Famotidine (Pepcid) 20 mg HS 03/27/17 21:00 03/29/17 20:49 20 MG Fentanyl Citrate (Fentanyl 2ml Vial) 50 mcg PRN Q5MIN PRN 03/30/17 07:00 03/31/17 06:59 Gentamicin Sulfate 280 mg/ Sodium Chloride 107 ml @ 107 mls/hr ONCE ONCE 03/28/17 09:00 03/28/17 09:59 DC 03/28/17 09:00 107 MLS/HR Gentamicin Sulfate 1 each ONCE ONCE 03/28/17 08:15 03/28/17 08:33 DC Hydromorphone HCl (Dilaudid) 0.5 mg PRN Q10MIN PRN 03/30/17 07:00 03/31/17 06:59 Info (PHARMACY MONITORING -- do not chart) 1 each PRN DAILY PRN 03/29/17 15:15 UNV Isosorbide Mononitrate (Imdur) 30 mg DAILY 03/28/17 09:00 03/30/17 08:52 30 MG Ketorolac Tromethamine (Acular) 1 drop BID 03/27/17 21:00 Cancel Labetalol HCl (Normodyne) 10 mg PRN Q1HR PRN 03/28/17 13:15 03/29/17 13:14 DC Levetiracetam (Keppra) 500 mg BID 03/27/17 21:00 03/30/17 08:53 500 MG Levothyroxine Sodium (Synthroid) 175 mcg DAILY07 03/28/17 07:00 03/30/17 06:06 175 MCG Lidocaine (Lidoderm) 1 patch DAILY 03/28/17 09:00 03/30/17 11:00 DC Lidocaine HCl 2 ml PRN 1X PRN 03/30/17 07:00 03/31/17 06:59 Linezolid (Zyvox) 600 mg ONCE ONCE 03/28/17 08:15 03/28/17 08:21 DC 03/28/17 08:53 600 MG Magnesium Sulfate/ Dextrose 50 ml @ 25 mls/hr PRN DAILY PRN 03/28/17 13:30 Meclizine HCl (Antivert) 12.5 mg TID 03/27/17 21:00 03/30/17 11:01 DC 03/29/17 20:49 12.5 MG Meropenem 1 gm/ Sodium Chloride 100 ml @ 200 mls/hr DAILY 03/28/17 08:30 03/30/17 08:36 200 MLS/HR Metoprolol Tartrate (Lopressor) 50 mg BID 03/27/17 21:00 03/30/17 08:51 50 MG Micafungin Sodium 100 mg/Dextrose 100 ml @ 100 mls/hr Q24H 03/28/17 10:00 03/30/17 10:04 100 MLS/HR Morphine Sulfate 1 mg PRN Q10MIN PRN 03/30/17 07:00 03/31/17 06:59 Nitroglycerin (Nitrostat) 0.4 mg PRN Q5MIN PRN 03/27/17 15:30 Non-Formulary Medication 1 drop Q1HR 03/27/17 16:00 UNV Ondansetron HCl (Zofran) 4 mg PRN Q6HRS PRN 03/30/17 07:00 03/31/17 06:59 Prochlorperazine Edisylate (Compazine) 5 mg PACU PRN PRN 03/30/17 07:00 03/31/17 06:59 Ringer's Solution 1,000 ml @ 0 mls/hr Q0M 03/30/17 07:00 03/30/17 18:59 Cancel Risperidone (RisperDAL) 0.5 mg QHS 03/27/17 21:00 03/29/17 20:50 0.5 MG Ropinirole HCl (Requip) 0.25 mg QHS 03/27/17 21:00 03/29/17 20:50 0.25 MG Sevelamer Carbonate (Renvela) 2,400 mg TIDWMEALS 03/27/17 17:00 03/29/17 17:28 2,400 MG Sodium Bicarbonate (Sodium Bicarbonate) 1,300 mg BID 03/27/17 21:00 03/29/17 20:49 1,300 MG Sodium Chloride 1,000 ml @ 0 mls/hr Q0M 03/30/17 10:00 Sucralfate (Carafate) 1 gm BID 03/27/17 21:00 03/29/17 21:54 1 GM Trazodone HCl (Desyrel) 50 mg QHS PRN 03/27/17 15:30 Vancomycin HCl (Vanco Per Pharmacy) 1 each PRN DAILY PRN 03/28/17 08:15 03/29/17 14:42 1 EACH Vancomycin HCl 750 mg/Sodium Chloride 100 ml @ 100 mls/hr QTUTHSA 03/29/17 16:00 03/29/17 17:30 100 MLS/HR Vancomycin HCl 2 gm/Sodium Chloride 500 ml @ 250 mls/hr ONCE ONCE 03/28/17 09:00 03/28/17 10:59 DC 03/28/17 11:20 250 MLS/HR Vitamin B Complex/ Vitamin C (Fernanda-Jimmy) 1 tab DAILY 03/28/17 09:00 03/29/17 08:23 1 TAB Warfarin Sodium (Coumadin Per Pharmacy) 1 each PRN DAILY PRN 03/29/17 14:00 03/30/17 13:15 1 EACH Warfarin Sodium (Coumadin Per Physician) 1 each PRN DAILY PRN 03/27/17 16:15 03/29/17 14:02 DC 03/28/17 14:54 1 EACH Warfarin Sodium (Coumadin) 7.5 mg 1X WARF ONCE 03/30/17 16:00 03/30/17 16:01 Zolpidem Tartrate (Ambien) 5 mg HS PRN 03/27/17 15:30 Lab Laboratory Tests Test 03/29/17 17:36 03/30/17 04:50 03/30/17 07:26 03/30/17 11:49 Glucose (Fingerstick) 173 mg/dL (70-99) 136 mg/dL (70-99) 123 mg/dL (70-99) White Blood Count 5.8 x10^3/uL (4.0-11.0) Red Blood Count 3.22 x10^6/uL (4.30-5.70) Hemoglobin 10.0 g/dL (13.0-17.5) Hematocrit 29.7 % (39.0-53.0) Mean Corpuscular Volume 92 fL (79-100) Mean Corpuscular Hemoglobin 31 pg (25-35) Mean Corpuscular Hemoglobin Concent 34 g/dL (31-37) Red Cell Distribution Width 15.9 % (11.5-14.5) Platelet Count 140 x10^3/uL (140-400) Neutrophils (%) (Auto) 68 % (31-73) Lymphocytes (%) (Auto) 10 % (24-48) Monocytes (%) (Auto) 19 % (0-9) Eosinophils (%) (Auto) 1 % (0-3) Basophils (%) (Auto) 1 % (0-3) Neutrophils # (Auto) 4.0 x10^3uL (1.8-7.7) Lymphocytes # (Auto) 0.6 x10^3/uL (1.0-4.8) Monocytes # (Auto) 1.1 x10^3/uL (0.0-1.1) Eosinophils # (Auto) 0.0 x10^3/uL (0.0-0.7) Basophils # (Auto) 0.1 x10^3/uL (0.0-0.2) Segmented Neutrophils % 80 % (35-66) Band Neutrophils % 2 % (0-9) Lymphocytes % 3 % (24-48) Monocytes % 12 % (0-10) Basophils % 3 % (0-3) Blast Cells % (Manual) % (0-0) Platelet Estimate Adequate (ADEQUATE) Hypochromasia Slight Prothrombin Time 14.6 SEC (11.7-14.0) Prothromb Time International Ratio 1.2 (0.8-1.1) Sodium Level 138 mmol/L (136-145) Potassium Level 3.8 mmol/L (3.5-5.1) Chloride Level 98 mmol/L (98-107) Carbon Dioxide Level 32 mmol/L (21-32) Anion Gap 8 (6-14) Blood Urea Nitrogen 30 mg/dL (8-26) Creatinine 4.7 mg/dL (0.7-1.3) Estimated GFR (Cockcroft-Gault) 16.0 Glucose Level 116 mg/dL (70-99) Calcium Level 8.7 mg/dL (8.5-10.1) Phosphorus Level 3.4 mg/dL (2.6-4.7) Magnesium Level 2.1 mg/dL (1.8-2.4) Albumin 2.5 g/dL (3.4-5.0) MYRON LIANG MD Mar 30, 2017 13:34
[2017-03-30] MEDS ORDERED: WARFARIN 7.5 MG TABLET. PO ONE (16:00)
[2017-03-30] MEDS ORDERED: LIDOCAINE 2% PF Vial for OR 5 ML VIAL. ONE (16:32)
[2017-03-30] MEDS ORDERED: DEXAMETHASONE SOD PHOS 20 MG/5 ML VIAL. ONE (16:32)
[2017-03-30] MEDS ORDERED: ONDANSETRON PF 4 MG/2 ML VIAL. ONE (16:32)
[2017-03-30] MEDS ORDERED: MIDAZOLAM HCL/PF 2 MG/2 ML VIAL. ONE (16:32)
[2017-03-30] MEDS ORDERED: PROPOFOL 20 ML IV ONE (16:32)
[2017-03-30] MEDS ORDERED: PHENYLEPHRINE in 0.9% NACL PF 1 MG/10 ML DISP.SYRIN. IV ONE (16:48)
[2017-03-30] MEDS ORDERED: fentaNYL PF VIAL 100 MCG/2 ML VIAL ONE (16:52)
[2017-03-30] MEDS ORDERED: SEVOFLURANE 61 TO 120 MINUTES. IH ONE (17:20)
[2017-03-30] MEDS ORDERED: DEXTROSE 50% 25 GM / 50ML DISP.SYRIN. IV PRN (17:30)
[2017-03-30] MEDS ORDERED: POLYETHYLENE GLYCOL 3350 17 GM PACKET. PO PRN (17:30)
[2017-03-30] MEDS ORDERED: SEVOFLURANE 31 TO 60 MINUTES. IH ONE (17:46)
[2017-03-30] MEDS: VANCOMYCIN PER PHARMACY MC PRN (18:59)
[2017-03-30] MEDS: risperiDONE 0.25 MG TABLET. PO SCH (21:13)
[2017-03-30] MEDS: rOPINIRole 0.25 MG TABLET. PO SCH (21:13)
[2017-03-30] MEDS: FAMOTIDINE 20 MG TABLET. PO SCH (21:14)
[2017-03-30] MEDS: ATORVASTATIN CALCIUM 40 MG TABLET. PO SCH (21:20)
[2017-03-30] MEDS: ACETAMINOPHEN 500 MG TABLET PO PRN (21:31)
[2017-03-31] VITALS (7 sets, daily range): BP systolic 93–140; BP diastolic 34–81
[2017-03-31 04:31] LABS: BASO % 1 % (0-3); EOS % 0 % (0-3); HEMATOCRIT 29.6 % (39.0-53.0); HEMOGLOBIN 9.7 g/dL (13.0-17.5); LYMPH # 0.5 x10^3/uL (1.0-4.8); LYMPH % 9 % (24-48); MEAN CORPUSCULAR HEMOGLOBIN 30 pg (25-35); MEAN CORPUSCULAR HGB CONC 33 g/dL (31-37); MEAN CORPUSCULAR VOLUME 93 fL (79-100); MONO % 13 % (0-9); NEUT % 77 % (31-73); PLATELET COUNT 149 x10^3/uL (140-400); RED BLOOD COUNT 3.18 x10^6/uL (4.30-5.70); WHITE BLOOD COUNT 5.5 x10^3/uL (4.0-11.0)
[2017-03-31 04:55] LABS: INR 1.2 (0.8-1.1); PROTHROMBIN TIME PATIENT 14.3 SEC (11.7-14.0)
[2017-03-31 04:56] LABS: ALBUMIN 2.2 g/dL (3.4-5.0); CALCIUM 8.1 mg/dL (8.5-10.1); CREATININE 6.3 mg/dL (0.7-1.3); GFR 11.4; PHOSPHORUS 4.5 mg/dL (2.6-4.7); POTASSIUM 4.6 mmol/L (3.5-5.1)
[2017-03-31] MEDS: CLOPIDOGREL BISULFATE 75 MG TABLET PO SCH (06:02)
[2017-03-31] MEDS: LEVOTHYROXINE 175 MCG TABLET PO SCH (06:02)
[2017-03-31] MEDS ORDERED: IV NORMAL SALINE 1000ML BAG 1,000 ML IV PRN ×2 (07:32)
[2017-03-31] MEDS ORDERED: DIALYSIS PATIENT. MC PRN (07:45)
[2017-03-31] MEDS ORDERED: ALBUMIN HUMAN 25% 200 ML IV PRN (07:45)
[2017-03-31] MEDS: CALCIUM CARBONATE 500 MG TABLET PO SCH ×3 (08:00→16:43)
[2017-03-31] MEDS: SEVELAMER CARBONATE 800 MG TABLET. PO SCH ×3 (08:00→16:44)
[2017-03-31] MEDS ORDERED: LIDOCAINE 1% PF 2 ML VIAL. INJ STA (08:14)
[2017-03-31] MEDS: DICLOFENAC SODIUM 1% TOPICAL GEL 100GM TUBE. TP SCH ×2 (09:00→21:00)
--- NOTE | 2017-03-31 11:32 | PDOC ---
Infectious Disease Note Subjective Subjective Feel much better. ROS ROS GEN: Denies fevers, chills, sweats HEENT: Denies blurred vision, sore throat CV: Denies chest pain RESP: Denies shortness of air, cough GI: Denies n/v/d NEURO: Denies confusion, dizziness MSK: Denies weakness, joint pain/swelling Vital Sign Vital Signs Vital Signs Date Time Temp Pulse Resp B/P (MAP) Pulse Ox O2 Delivery O2 Flow Rate FiO2 03/31/17 07:00 98.0 72 18 128/74 (92) 97 Room Air 98.0 03/30/17 22:30 Physical Exam PHYSICAL EXAM GENERAL: NAD, Alert HEENT: PERRL, OC/OP NECK: Supple, no JVD, no LN LUNGS: Clear HEART: S1S2, no gallop, no murmur ABD: Soft, NT, no organomegaly, no rebound EXT: No edema, no cyanosis ASSOCIATE RELATIONS SPECIALIST: Alert, oriented x 3, no focal neurologic deficit SKIN: No rash,, left foot with wound vac in place IV: ok Labs Lab Laboratory Tests Test 03/30/17 11:49 03/30/17 16:06 03/30/17 18:27 03/30/17 20:56 Glucose (Fingerstick) 123 mg/dL (70-99) 113 mg/dL (70-99) 116 mg/dL (70-99) 181 mg/dL (70-99) Test 03/31/17 03:55 03/31/17 07:49 White Blood Count 5.5 x10^3/uL (4.0-11.0) Red Blood Count 3.18 x10^6/uL (4.30-5.70) Hemoglobin 9.7 g/dL (13.0-17.5) Hematocrit 29.6 % (39.0-53.0) Mean Corpuscular Volume 93 fL (79-100) Mean Corpuscular Hemoglobin 30 pg (25-35) Mean Corpuscular Hemoglobin Concent 33 g/dL (31-37) Red Cell Distribution Width 16.0 % (11.5-14.5) Platelet Count 149 x10^3/uL (140-400) Neutrophils (%) (Auto) 77 % (31-73) Lymphocytes (%) (Auto) 9 % (24-48) Monocytes (%) (Auto) 13 % (0-9) Eosinophils (%) (Auto) 0 % (0-3) Basophils (%) (Auto) 1 % (0-3) Neutrophils # (Auto) 4.2 x10^3uL (1.8-7.7) Lymphocytes # (Auto) 0.5 x10^3/uL (1.0-4.8) Monocytes # (Auto) 0.7 x10^3/uL (0.0-1.1) Eosinophils # (Auto) 0.0 x10^3/uL (0.0-0.7) Basophils # (Auto) 0.0 x10^3/uL (0.0-0.2) Prothrombin Time 14.3 SEC (11.7-14.0) Prothromb Time International Ratio 1.2 (0.8-1.1) Sodium Level 135 mmol/L (136-145) Potassium Level 4.6 mmol/L (3.5-5.1) Chloride Level 97 mmol/L (98-107) Carbon Dioxide Level 30 mmol/L (21-32) Anion Gap 8 (6-14) Blood Urea Nitrogen 47 mg/dL (8-26) Creatinine 6.3 mg/dL (0.7-1.3) Estimated GFR (Cockcroft-Gault) 11.4 Glucose Level 245 mg/dL (70-99) Calcium Level 8.1 mg/dL (8.5-10.1) Phosphorus Level 4.5 mg/dL (2.6-4.7) Magnesium Level 2.2 mg/dL (1.8-2.4) Albumin 2.2 g/dL (3.4-5.0) Glucose (Fingerstick) 215 mg/dL (70-99) Objective Assessment Staph aureus Sepsis - POA - GPC in blood 1/3 bottles so far. Clinically looks better Left foot infected wound s/p I and D Tongue bacterial overgrowth Fever - persists ? sepsis vs foot Zosyn/pcn allergy - has tolerated Cefepime CKD Plan Plan of Care Cont Peridex Zyvox po times one 03/28/Gent times one 03/28 Cont Meropenem given DM foot (on Keppra)/Vanc/Micafungin F/u labs CBC in am. ? MSSA Repeat Blood cults in am on HD d/c vanc LIANG,CONCETTA R MD Mar 31, 2017 11:32
--- NOTE | 2017-03-31 11:36 | PDOC ---
Dialysis Progress Note Dialysis Note Dialysis Note Seen on Hemodialysis, tolerating treatment Well so far Vitals on Hemodialysis: 125/63 77 afeb General Appearance: Awake: Alert Oriented x 3 Neck: No JVD or JVP Chest: CTA Antonio Heart: S1 S2 Abdomen - Soft NTND Extremities - No Edema ESRD: Dialysis as below F 180 NR 4.0 Hrs 3 K 2.5 Ca 140 Na 35 HC03 Qb 350 + Qd 500+ Heparin 0 Units Uf 3 Kgs or to dry weight as tolerated May give 25-50 gms of 25% Albumin if needed to maintain Hemodynamic stability Treatment plan reviewed and discussed with spa supervisor Vitals Vital Signs Vital Signs Date Time Temp Pulse Resp B/P (MAP) Pulse Ox O2 Delivery O2 Flow Rate FiO2 03/31/17 07:00 98.0 72 18 128/74 (92) 97 Room Air 98.0 03/30/17 22:30 Labs Last Labs Laboratory Tests Test 03/29/17 17:36 03/30/17 04:50 03/30/17 07:26 03/30/17 11:49 Glucose (Fingerstick) 173 mg/dL (70-99) 136 mg/dL (70-99) 123 mg/dL (70-99) White Blood Count 5.8 x10^3/uL (4.0-11.0) Red Blood Count 3.22 x10^6/uL (4.30-5.70) Hemoglobin 10.0 g/dL (13.0-17.5) Hematocrit 29.7 % (39.0-53.0) Mean Corpuscular Volume 92 fL (79-100) Mean Corpuscular Hemoglobin 31 pg (25-35) Mean Corpuscular Hemoglobin Concent 34 g/dL (31-37) Red Cell Distribution Width 15.9 % (11.5-14.5) Platelet Count 140 x10^3/uL (140-400) Neutrophils (%) (Auto) 68 % (31-73) Lymphocytes (%) (Auto) 10 % (24-48) Monocytes (%) (Auto) 19 % (0-9) Eosinophils (%) (Auto) 1 % (0-3) Basophils (%) (Auto) 1 % (0-3) Neutrophils # (Auto) 4.0 x10^3uL (1.8-7.7) Lymphocytes # (Auto) 0.6 x10^3/uL (1.0-4.8) Monocytes # (Auto) 1.1 x10^3/uL (0.0-1.1) Eosinophils # (Auto) 0.0 x10^3/uL (0.0-0.7) Basophils # (Auto) 0.1 x10^3/uL (0.0-0.2) Segmented Neutrophils % 80 % (35-66) Band Neutrophils % 2 % (0-9) Lymphocytes % 3 % (24-48) Monocytes % 12 % (0-10) Basophils % 3 % (0-3) Blast Cells % (Manual) % (0-0) Platelet Estimate Adequate (ADEQUATE) Hypochromasia Slight Prothrombin Time 14.6 SEC (11.7-14.0) Prothromb Time International Ratio 1.2 (0.8-1.1) Sodium Level 138 mmol/L (136-145) Potassium Level 3.8 mmol/L (3.5-5.1) Chloride Level 98 mmol/L (98-107) Carbon Dioxide Level 32 mmol/L (21-32) Anion Gap 8 (6-14) Blood Urea Nitrogen 30 mg/dL (8-26) Creatinine 4.7 mg/dL (0.7-1.3) Estimated GFR (Cockcroft-Gault) 16.0 Glucose Level 116 mg/dL (70-99) Calcium Level 8.7 mg/dL (8.5-10.1) Phosphorus Level 3.4 mg/dL (2.6-4.7) Magnesium Level 2.1 mg/dL (1.8-2.4) Albumin 2.5 g/dL (3.4-5.0) Test 03/30/17 16:06 03/30/17 18:27 03/30/17 20:56 03/31/17 03:55 Glucose (Fingerstick) 113 mg/dL (70-99) 116 mg/dL (70-99) 181 mg/dL (70-99) White Blood Count 5.5 x10^3/uL (4.0-11.0) Red Blood Count 3.18 x10^6/uL (4.30-5.70) Hemoglobin 9.7 g/dL (13.0-17.5) Hematocrit 29.6 % (39.0-53.0) Mean Corpuscular Volume 93 fL (79-100) Mean Corpuscular Hemoglobin 30 pg (25-35) Mean Corpuscular Hemoglobin Concent 33 g/dL (31-37) Red Cell Distribution Width 16.0 % (11.5-14.5) Platelet Count 149 x10^3/uL (140-400) Neutrophils (%) (Auto) 77 % (31-73) Lymphocytes (%) (Auto) 9 % (24-48) Monocytes (%) (Auto) 13 % (0-9) Eosinophils (%) (Auto) 0 % (0-3) Basophils (%) (Auto) 1 % (0-3) Neutrophils # (Auto) 4.2 x10^3uL (1.8-7.7) Lymphocytes # (Auto) 0.5 x10^3/uL (1.0-4.8) Monocytes # (Auto) 0.7 x10^3/uL (0.0-1.1) Eosinophils # (Auto) 0.0 x10^3/uL (0.0-0.7) Basophils # (Auto) 0.0 x10^3/uL (0.0-0.2) Prothrombin Time 14.3 SEC (11.7-14.0) Prothromb Time International Ratio 1.2 (0.8-1.1) Sodium Level 135 mmol/L (136-145) Potassium Level 4.6 mmol/L (3.5-5.1) Chloride Level 97 mmol/L (98-107) Carbon Dioxide Level 30 mmol/L (21-32) Anion Gap 8 (6-14) Blood Urea Nitrogen 47 mg/dL (8-26) Creatinine 6.3 mg/dL (0.7-1.3) Estimated GFR (Cockcroft-Gault) 11.4 Glucose Level 245 mg/dL (70-99) Calcium Level 8.1 mg/dL (8.5-10.1) Phosphorus Level 4.5 mg/dL (2.6-4.7) Magnesium Level 2.2 mg/dL (1.8-2.4) Albumin 2.2 g/dL (3.4-5.0) Test 03/31/17 07:49 Glucose (Fingerstick) 215 mg/dL (70-99) Laboratory Tests Test 03/30/17 11:49 03/30/17 16:06 03/30/17 18:27 03/30/17 20:56 Glucose (Fingerstick) 123 mg/dL (70-99) 113 mg/dL (70-99) 116 mg/dL (70-99) 181 mg/dL (70-99) Test 03/31/17 03:55 03/31/17 07:49 White Blood Count 5.5 x10^3/uL (4.0-11.0) Red Blood Count 3.18 x10^6/uL (4.30-5.70) Hemoglobin 9.7 g/dL (13.0-17.5) Hematocrit 29.6 % (39.0-53.0) Mean Corpuscular Volume 93 fL (79-100) Mean Corpuscular Hemoglobin 30 pg (25-35) Mean Corpuscular Hemoglobin Concent 33 g/dL (31-37) Red Cell Distribution Width 16.0 % (11.5-14.5) Platelet Count 149 x10^3/uL (140-400) Neutrophils (%) (Auto) 77 % (31-73) Lymphocytes (%) (Auto) 9 % (24-48) Monocytes (%) (Auto) 13 % (0-9) Eosinophils (%) (Auto) 0 % (0-3) Basophils (%) (Auto) 1 % (0-3) Neutrophils # (Auto) 4.2 x10^3uL (1.8-7.7) Lymphocytes # (Auto) 0.5 x10^3/uL (1.0-4.8) Monocytes # (Auto) 0.7 x10^3/uL (0.0-1.1) Eosinophils # (Auto) 0.0 x10^3/uL (0.0-0.7) Basophils # (Auto) 0.0 x10^3/uL (0.0-0.2) Prothrombin Time 14.3 SEC (11.7-14.0) Prothromb Time International Ratio 1.2 (0.8-1.1) Sodium Level 135 mmol/L (136-145) Potassium Level 4.6 mmol/L (3.5-5.1) Chloride Level 97 mmol/L (98-107) Carbon Dioxide Level 30 mmol/L (21-32) Anion Gap 8 (6-14) Blood Urea Nitrogen 47 mg/dL (8-26) Creatinine 6.3 mg/dL (0.7-1.3) Estimated GFR (Cockcroft-Gault) 11.4 Glucose Level 245 mg/dL (70-99) Calcium Level 8.1 mg/dL (8.5-10.1) Phosphorus Level 4.5 mg/dL (2.6-4.7) Magnesium Level 2.2 mg/dL (1.8-2.4) Albumin 2.2 g/dL (3.4-5.0) Glucose (Fingerstick) 215 mg/dL (70-99) Assessment Assessment Problems Medical Problems: (1) End stage renal disease Status: Acute (2) Fever Status: Acute Problems: Plan Plan of Care Problems Medical Problems: (1) End stage renal disease Status: Acute (2) Fever Status: Acute MYRON LIANG MD Mar 31, 2017 11:36
[2017-03-31] MEDS: SUCRALFATE 1 GM TABLET. PO SCH ×2 (13:17→22:32)
[2017-03-31] MEDS: CITALOPRAM 20 MG TABLET. PO SCH (13:17)
[2017-03-31] MEDS: ISOSORBIDE MONONITRATE ER 30 MG TAB.ER.24H PO SCH (13:17)
[2017-03-31] MEDS: FOLIC/VIT B COMP W-C (RENAL) TABLET. PO SCH (13:18)
[2017-03-31] MEDS: METOPROLOL TART IMMED RELEASE 50 MG TABLET. PO SCH ×2 (13:18→22:40)
[2017-03-31] MEDS: SODIUM BICARBONATE 650 MG TABLET. PO SCH ×2 (13:18→21:11)
[2017-03-31] MEDS: levETIRAcetam 500 MG TABLET PO SCH ×2 (13:18→21:11)
[2017-03-31] MEDS: CHLORHEXIDINE 0.12% 15 ML MOUTHWASH. SWSP SCH ×2 (13:19→21:07)
[2017-03-31] MEDS: MEROPENEM 1 GM in IV NORMAL SALINE 100ML 100 ML IV SCH (13:20)
[2017-03-31] MEDS: MICAFUNGIN 100 MG in IV DEXTROSE 5% 100 ML IV SCH (13:33)
[2017-03-31] MEDS: HYDROcodone/APAP 10/325 1 TAB TABLET PO PRN (13:40)
[2017-03-31] MEDS ORDERED: WARFARIN 7.5 MG TABLET. PO ONE (16:00)
--- NOTE | 2017-03-31 19:03 | PDOC ---
PROGRESS NOTES Chief Complaint Chief Complaint Foot cellulitis Sepsis ASSESSMENT AND PLAN: 1. Sepsis: resolved 2. Foot cellulitis L: recent distal foot amputation for osteo; recurrent cellulitis. 3. Bacteremia: MSSA. on IV Abx as per ID 4. ESRD on HD TTHS 5. Anemia of CKD: on EPO, iron as per nephrology 6. GERD: PPI 7. Hypothyroidism: on hormone repletion 8. CAD: no acute issues. cont home meds 9. PAF: no acute isses, rate controlled, cont home meds 10. Hx recurrent DVT 11. OAC: on warferin 12. Chronic LBP 13. Obesity BMI 37 14: cough: trial of codeine History of Present Illness History of Present Illness only c/o dry cough, causing coughing fits Vitals Vitals Vital Signs Date Time Temp Pulse Resp B/P (MAP) Pulse Ox O2 Delivery O2 Flow Rate FiO2 03/31/17 15:00 98.7 88 20 93/34 (53) 99 Room Air 98.7 03/31/17 12:00 6.0 Physical Exam General: Alert, Oriented X3, Cooperative, No acute distress Heart: Regular rate Lungs: Clear Abdomen: Soft Extremities: Other (L distal foot amputation, wound vac in place) Skin: Other (left tma with wound dehiscence, no active drainage, dorsum skin discoloration) Labs LABS Laboratory Tests Test 03/30/17 20:56 03/31/17 03:55 03/31/17 07:49 03/31/17 12:54 Glucose (Fingerstick) 181 mg/dL (70-99) 215 mg/dL (70-99) 180 mg/dL (70-99) White Blood Count 5.5 x10^3/uL (4.0-11.0) Red Blood Count 3.18 x10^6/uL (4.30-5.70) Hemoglobin 9.7 g/dL (13.0-17.5) Hematocrit 29.6 % (39.0-53.0) Mean Corpuscular Volume 93 fL (79-100) Mean Corpuscular Hemoglobin 30 pg (25-35) Mean Corpuscular Hemoglobin Concent 33 g/dL (31-37) Red Cell Distribution Width 16.0 % (11.5-14.5) Platelet Count 149 x10^3/uL (140-400) Neutrophils (%) (Auto) 77 % (31-73) Lymphocytes (%) (Auto) 9 % (24-48) Monocytes (%) (Auto) 13 % (0-9) Eosinophils (%) (Auto) 0 % (0-3) Basophils (%) (Auto) 1 % (0-3) Neutrophils # (Auto) 4.2 x10^3uL (1.8-7.7) Lymphocytes # (Auto) 0.5 x10^3/uL (1.0-4.8) Monocytes # (Auto) 0.7 x10^3/uL (0.0-1.1) Eosinophils # (Auto) 0.0 x10^3/uL (0.0-0.7) Basophils # (Auto) 0.0 x10^3/uL (0.0-0.2) Prothrombin Time 14.3 SEC (11.7-14.0) Prothromb Time International Ratio 1.2 (0.8-1.1) Sodium Level 135 mmol/L (136-145) Potassium Level 4.6 mmol/L (3.5-5.1) Chloride Level 97 mmol/L (98-107) Carbon Dioxide Level 30 mmol/L (21-32) Anion Gap 8 (6-14) Blood Urea Nitrogen 47 mg/dL (8-26) Creatinine 6.3 mg/dL (0.7-1.3) Estimated GFR (Cockcroft-Gault) 11.4 Glucose Level 245 mg/dL (70-99) Calcium Level 8.1 mg/dL (8.5-10.1) Phosphorus Level 4.5 mg/dL (2.6-4.7) Magnesium Level 2.2 mg/dL (1.8-2.4) Albumin 2.2 g/dL (3.4-5.0) Test 03/31/17 16:39 Glucose (Fingerstick) 205 mg/dL (70-99) TREVIN VARELA MD Mar 31, 2017 19:03
[2017-03-31] MEDS ORDERED: CODEINE SULFATE 30 MG TABLET. PO PRN ×2 (19:15)
[2017-03-31] MEDS: rOPINIRole 0.25 MG TABLET. PO SCH (21:08)
[2017-03-31] MEDS: FAMOTIDINE 20 MG TABLET. PO SCH (21:08)
[2017-03-31] MEDS: risperiDONE 0.25 MG TABLET. PO SCH (21:11)
[2017-03-31] MEDS: ATORVASTATIN CALCIUM 40 MG TABLET. PO SCH (21:12)
[2017-03-31] MEDS: MORPHINE SULFATE 4 MG/ML DISP.SYRIN. IV PRN (21:16)
[2017-03-31] MEDS: ZOLPIDEM 5 MG TABLET. PO PRN (22:33)
[2017-04-01] MEDS: MORPHINE SULFATE 4 MG/ML DISP.SYRIN. IV PRN ×4 (02:12→21:06)
[2017-04-01 02:41] VITALS: BP 104/56
[2017-04-01 05:57] LABS: BASO # 0.1 x10^3/uL (0.0-0.2); BASO % 1 % (0-3); EOS % 2 % (0-3); HEMATOCRIT 28.1 % (39.0-53.0); HEMOGLOBIN 9.5 g/dL (13.0-17.5); LYMPH # 1.3 x10^3/uL (1.0-4.8); LYMPH % 21 % (24-48); MEAN CORPUSCULAR HEMOGLOBIN 31 pg (25-35); MEAN CORPUSCULAR HGB CONC 34 g/dL (31-37); MEAN CORPUSCULAR VOLUME 91 fL (79-100); MONO % 18 % (0-9); NEUT % 57 % (31-73); PLATELET COUNT 164 x10^3/uL (140-400); RED BLOOD COUNT 3.08 x10^6/uL (4.30-5.70); RED CELL DISTRIBUTION WIDTH 16.1 % (11.5-14.5); WHITE BLOOD COUNT 6.2 x10^3/uL (4.0-11.0)
[2017-04-01] MEDS: LEVOTHYROXINE 175 MCG TABLET PO SCH (05:59)
[2017-04-01] MEDS: CLOPIDOGREL BISULFATE 75 MG TABLET PO SCH (05:59)
[2017-04-01 06:05] LABS: INR 1.2 (0.8-1.1); PROTHROMBIN TIME PATIENT 14.3 SEC (11.7-14.0)
[2017-04-01 06:23] LABS: ALBUMIN 2.3 g/dL (3.4-5.0); CALCIUM 8.2 mg/dL (8.5-10.1); CREATININE 5.6 mg/dL (0.7-1.3); GFR 13.1; PHOSPHORUS 3.6 mg/dL (2.6-4.7)
[2017-04-01 07:00] VITALS: BP 114/63
[2017-04-01] MEDS: MEROPENEM 1 GM in IV NORMAL SALINE 100ML 100 ML IV SCH (08:41)
[2017-04-01] MEDS: CITALOPRAM 20 MG TABLET. PO SCH (08:42)
[2017-04-01] MEDS: SEVELAMER CARBONATE 800 MG TABLET. PO SCH ×3 (08:42→16:47)
[2017-04-01] MEDS: CALCIUM CARBONATE 500 MG TABLET PO SCH ×3 (08:42→16:47)
[2017-04-01] MEDS: METOPROLOL TART IMMED RELEASE 50 MG TABLET. PO SCH ×2 (08:43→20:55)
[2017-04-01] MEDS: SODIUM BICARBONATE 650 MG TABLET. PO SCH ×2 (08:43→20:54)
[2017-04-01] MEDS: CHLORHEXIDINE 0.12% 15 ML MOUTHWASH. SWSP SCH ×2 (08:43→20:56)
[2017-04-01] MEDS: levETIRAcetam 500 MG TABLET PO SCH ×2 (08:43→20:54)
[2017-04-01] MEDS: FOLIC/VIT B COMP W-C (RENAL) TABLET. PO SCH (08:43)
[2017-04-01] MEDS: ISOSORBIDE MONONITRATE ER 30 MG TAB.ER.24H PO SCH (08:43)
[2017-04-01] MEDS: DICLOFENAC SODIUM 1% TOPICAL GEL 100GM TUBE. TP SCH ×2 (08:44→20:56)
--- NOTE | 2017-04-01 08:57 | PDOC ---
SUBJECTIVE ROS ESRD Doign better. Fevers better after surgery CVS: no Orthopnea, no CP RESP: no SOB, no MCCLAIN GI: no Nausea, no Vomiting : no Dysuria, no Urgency OBJECTIVE Vital Signs Vital Signs Date Time Temp Pulse Resp B/P (MAP) Pulse Ox O2 Delivery O2 Flow Rate FiO2 04/01/17 07:00 98.5 75 19 114/63 (80) 97 Room Air 98.5 03/31/17 20:00 6.0 I & 0 Intake and Output 04/01/17 07:00 Intake Total 800 ml Output Total 925 ml Balance -125 ml Intake Oral 800 ml Output Urine Total 925 ml # Bowel Movements 1 PHYSICAL EXAM Physical Exam General Appearance: Awake Alert Oriented x 3 In no Distress Eyes: VIsion Unchanged Conjunctiva Normal EN: No EN Drainage Mucous Memb. moist Neck: no JVD no JVP Supple no Thyromegaly CVS: S1 S2 + Murmur No Gallop No Rub no Edema Resp: no Rales no Rhonchi no Acc. Muscle use GI: BAS +ve NO Bruit Non Tender Non Distended : no CVA tenderness; no Suprapubic Tenderness Assessment & Plan ESRD: Current fluid and E-lyte status does not necessitate emergent need for dialysis. Will re-evaluate for dialysis in the am and continue on TTSat schedule. Anemia: started on Epogen (high likelihood of drop in H/H with ongoing febrile illness) Transfuse with next HD as needed. HTN: Current BP meds reviewed. See orders for changes. Bone & Mineral: follow phos and alter binder regimen as needed - currently doing good Febrile illness (better after surgery) - IV Abx per Dr Huerta et al Hypoalbuminemia - suspect due to ch Wound/ infection and catabolism from febrile illness Discussed Plan of Care and prognosis etc. at length with family/ pt COMMENT/RELEVANT DATA Meds Current Medications Medications (Trade) Dose Ordered Sig/[place] Start Time Stop Time Status Last Admin Dose Admin Acetaminophen (Tylenol) 500 mg 1X PRN PRN 03/28/17 13:15 03/29/17 13:14 DC Acetaminophen/ Hydrocodone Bitart (Lortab 10/325) 1 tab PRN Q6HRS PRN 03/27/17 15:15 03/31/17 13:40 1 TAB Albumin Human 200 ml @ 200 mls/hr 1X PRN PRN 03/31/17 07:45 8/19/17 15:00 DC Albuterol Sulfate (Ventolin Neb Soln) 2.5 mg PRN Q6HRS PRN 03/27/17 16:00 03/27/17 19:49 2.5 MG Alprazolam (Xanax) 0.25 mg QID PRN 03/27/17 15:30 Atorvastatin Calcium (Lipitor) 80 mg QHS 03/27/17 21:00 03/31/17 21:12 80 MG Bupivacaine HCl/ Epinephrine Bitart (Sensorcain-Mpf Epi 0.5%-1:[id number]) 30 ml STK-MED ONCE 03/30/17 07:41 03/30/17 07:42 DC Calcium Carbonate/ Glycine (Oscal) 500 mg TIDWMEALS 03/27/17 17:00 03/31/17 16:43 500 MG Chlorhexidine Gluconate (Peridex) 15 ml BID 03/29/17 09:30 03/31/17 21:07 15 ML Citalopram Hydrobromide (CeleXA) 20 mg DAILY 03/28/17 09:00 03/31/17 13:17 20 MG Clonidine HCl (Catapres) 0.1 mg 1X PRN PRN 03/28/17 13:15 03/29/17 13:14 DC Clopidogrel Bisulfate (Plavix) 75 mg DAILY07 03/28/17 07:00 04/01/17 05:59 75 MG Codeine Sulfate (Codeine) 30 mg PRN Q6HRS PRN 03/31/17 19:15 Darbepoetin Jace (Aranesp) 100 mcg WEEKLY 04/03/17 09:00 UNV Dexamethasone (Maxidex) 1 drop TID 03/27/17 21:00 Cancel Dexamethasone Sodium Phosphate (Decadron) 20 mg STK-MED ONCE 03/30/17 16:32 03/30/17 16:33 DC Dextrose (Dextrose 50%-Water Syringe) 12.5 gm PRN Q15MIN PRN 03/30/17 17:30 Diclofenac Sodium (Voltaren) 1 ayaz BID 03/27/17 21:00 Diphenhydramine HCl (Benadryl) 25 mg 1X PRN PRN 03/28/17 13:15 03/29/17 13:14 DC Ergocalciferol (Vitamin D2) 50,000 unit WEEKLY 04/03/17 09:00 Famotidine (Pepcid) 20 mg HS 03/27/17 21:00 03/31/17 21:08 20 MG Fentanyl Citrate (Fentanyl 2ml Vial) 100 mcg STK-MED ONCE 03/30/17 16:52 03/30/17 16:53 DC Gentamicin Sulfate 280 mg/ Sodium Chloride 107 ml @ 107 mls/hr ONCE ONCE 03/28/17 09:00 03/28/17 09:59 DC 03/28/17 09:00 107 MLS/HR Gentamicin Sulfate 1 each ONCE ONCE 03/28/17 08:15 03/28/17 08:33 DC Hydromorphone HCl (Dilaudid) 0.5 mg PRN Q10MIN PRN 03/30/17 07:00 03/31/17 06:59 DC Info (PHARMACY MONITORING -- do not chart) 1 each PRN DAILY PRN 03/31/17 07:45 UNV Isosorbide Mononitrate (Imdur) 30 mg DAILY 03/28/17 09:00 03/31/17 13:17 30 MG Ketorolac Tromethamine (Acular) 1 drop BID 03/27/17 21:00 Cancel Labetalol HCl (Normodyne) 10 mg PRN Q1HR PRN 03/28/17 13:15 03/29/17 13:14 DC Levetiracetam (Keppra) 500 mg BID 03/27/17 21:00 03/31/17 21:11 500 MG Levothyroxine Sodium (Synthroid) 175 mcg DAILY07 03/28/17 07:00 04/01/17 05:59 175 MCG Lidocaine (Lidoderm) 1 patch DAILY 03/28/17 09:00 03/30/17 11:00 DC Lidocaine HCl (Lidocaine Pf 2% Vial) 5 ml STK-MED ONCE 03/30/17 16:32 03/30/17 16:33 DC Lidocaine HCl (Xylocaine-Mpf 1% Vial) 2 ml 1X STAT 03/31/17 08:14 03/31/17 08:15 DC 03/31/17 08:14 2 ML Linezolid (Zyvox) 600 mg ONCE ONCE 03/28/17 08:15 03/28/17 08:21 DC 03/28/17 08:53 600 MG Magnesium Sulfate/ Dextrose 50 ml @ 25 mls/hr PRN DAILY PRN 03/28/17 13:30 Meclizine HCl (Antivert) 12.5 mg TID 03/27/17 21:00 03/30/17 11:01 DC 03/29/17 20:49 12.5 MG Meropenem 1 gm/ Sodium Chloride 100 ml @ 200 mls/hr DAILY 03/28/17 08:30 03/31/17 13:20 200 MLS/HR Metoprolol Tartrate (Lopressor) 50 mg BID 03/27/17 21:00 03/31/17 22:40 50 MG Micafungin Sodium 100 mg/Dextrose 100 ml @ 100 mls/hr Q24H 03/28/17 10:00 03/31/17 13:33 100 MLS/HR Midazolam HCl (Versed) 2 mg STK-MED ONCE 03/30/17 16:32 03/30/17 16:33 DC Morphine Sulfate 1 mg PRN Q10MIN PRN 03/30/17 07:00 03/31/17 06:59 DC Nitroglycerin (Nitrostat) 0.4 mg PRN Q5MIN PRN 03/27/17 15:30 Non-Formulary Medication 1 drop Q1HR 03/27/17 16:00 UNV Ondansetron HCl (Zofran) 4 mg PRN Q4HRS PRN 03/30/17 17:30 Phenylephrine HCl 1 mg STK-MED ONCE 03/30/17 16:48 03/30/17 16:49 DC Polyethylene Glycol (miraLAX PACKET) 17 gm PRN DAILY PRN 03/30/17 17:30 Prochlorperazine Edisylate (Compazine) 5 mg PACU PRN PRN 03/30/17 07:00 03/31/17 06:59 DC Propofol 20 ml @ As Directed STK-MED ONCE 03/30/17 16:32 03/30/17 16:33 DC Ringer's Solution 1,000 ml @ 0 mls/hr Q0M 03/30/17 07:00 03/30/17 18:59 Cancel Risperidone (RisperDAL) 0.5 mg QHS 03/27/17 21:00 03/31/17 21:11 0.5 MG Ropinirole HCl (Requip) 0.25 mg QHS 03/27/17 21:00 03/31/17 21:08 0.25 MG Sevelamer Carbonate (Renvela) 2,400 mg TIDWMEALS 03/27/17 17:00 03/31/17 16:44 2,400 MG Sevoflurane (Ultane) 30 ml STK-MED ONCE 03/30/17 17:46 03/30/17 17:47 DC Sodium Bicarbonate (Sodium Bicarbonate) 1,300 mg BID 03/27/17 21:00 03/31/17 21:11 1,300 MG Sodium Chloride 1,000 ml @ 400 mls/hr Q2H30M PRN 03/31/17 07:32 03/31/17 15:00 DC Sucralfate (Carafate) 1 gm BID 03/27/17 21:00 03/31/17 22:32 1 GM Trazodone HCl (Desyrel) 50 mg QHS PRN 03/27/17 15:30 Vancomycin HCl (Vanco Per Pharmacy) 1 each PRN DAILY PRN 03/28/17 08:15 03/31/17 11:34 DC 03/30/17 18:59 1 EACH Vancomycin HCl 750 mg/Sodium Chloride 100 ml @ 100 mls/hr QTUTHSA 03/29/17 16:00 03/31/17 11:32 DC 03/29/17 17:30 100 MLS/HR Vancomycin HCl 2 gm/Sodium Chloride 500 ml @ 250 mls/hr ONCE ONCE 03/28/17 09:00 03/28/17 10:59 DC 03/28/17 11:20 250 MLS/HR Vitamin B Complex/ Vitamin C (Fernanda-Jimmy) 1 tab DAILY 03/28/17 09:00 03/31/17 13:18 1 TAB Warfarin Sodium (Coumadin Per Pharmacy) 1 each PRN DAILY PRN 03/29/17 14:00 03/31/17 11:48 1 EACH Warfarin Sodium (Coumadin Per Physician) 1 each PRN DAILY PRN 03/27/17 16:15 03/29/17 14:02 DC 03/28/17 14:54 1 EACH Warfarin Sodium (Coumadin) 7.5 mg 1X WARF ONCE 03/31/17 16:00 03/31/17 16:01 DC 03/31/17 16:44 7.5 MG Zolpidem Tartrate (Ambien) 5 mg HS PRN 03/27/17 15:30 03/31/17 22:33 5 MG Lab Laboratory Tests Test 03/31/17 12:54 03/31/17 16:39 03/31/17 20:42 04/01/17 05:10 Glucose (Fingerstick) 180 mg/dL (70-99) 205 mg/dL (70-99) 228 mg/dL (70-99) White Blood Count 6.2 x10^3/uL (4.0-11.0) Red Blood Count 3.08 x10^6/uL (4.30-5.70) Hemoglobin 9.5 g/dL (13.0-17.5) Hematocrit 28.1 % (39.0-53.0) Mean Corpuscular Volume 91 fL (79-100) Mean Corpuscular Hemoglobin 31 pg (25-35) Mean Corpuscular Hemoglobin Concent 34 g/dL (31-37) Red Cell Distribution Width 16.1 % (11.5-14.5) Platelet Count 164 x10^3/uL (140-400) Neutrophils (%) (Auto) 57 % (31-73) Lymphocytes (%) (Auto) 21 % (24-48) Monocytes (%) (Auto) 18 % (0-9) Eosinophils (%) (Auto) 2 % (0-3) Basophils (%) (Auto) 1 % (0-3) Neutrophils # (Auto) 3.5 x10^3uL (1.8-7.7) Lymphocytes # (Auto) 1.3 x10^3/uL (1.0-4.8) Monocytes # (Auto) 1.1 x10^3/uL (0.0-1.1) Eosinophils # (Auto) 0.1 x10^3/uL (0.0-0.7) Basophils # (Auto) 0.1 x10^3/uL (0.0-0.2) Prothrombin Time 14.3 SEC (11.7-14.0) Prothromb Time International Ratio 1.2 (0.8-1.1) Sodium Level 140 mmol/L (136-145) Potassium Level 4.0 mmol/L (3.5-5.1) Chloride Level 100 mmol/L (98-107) Carbon Dioxide Level 35 mmol/L (21-32) Anion Gap 5 (6-14) Blood Urea Nitrogen 33 mg/dL (8-26) Creatinine 5.6 mg/dL (0.7-1.3) Estimated GFR (Cockcroft-Gault) 13.1 Glucose Level 184 mg/dL (70-99) Calcium Level 8.2 mg/dL (8.5-10.1) Phosphorus Level 3.6 mg/dL (2.6-4.7) Magnesium Level 2.2 mg/dL (1.8-2.4) Albumin 2.3 g/dL (3.4-5.0) Test 04/01/17 07:16 Glucose (Fingerstick) 168 mg/dL (70-99) MYRON LIANG MD Apr 01, 2017 08:57
--- NOTE | 2017-04-01 09:13 | PDOC ---
Infectious Disease Note Subjective Subjective Comfortable, denies pain ROS ROS GEN: Denies fevers, chills, sweats CV: Denies chest pain RESP: Denies shortness of air, cough GI: Denies n/v/d Vital Sign Vital Signs Vital Signs Date Time Temp Pulse Resp B/P (MAP) Pulse Ox O2 Delivery O2 Flow Rate FiO2 04/01/17 08:43 75 114/63 04/01/17 07:00 98.5 19 97 Room Air 98.5 03/31/17 20:00 6.0 Physical Exam PHYSICAL EXAM GENERAL: Propped up in bed, eating LUNGS: Clear HEART: S1 and S2 ABD: Soft, NT EXT: No edema, no cyanosis. Wound vac left foot QUALITY REP: Alert, oriented x 3, no focal neurologic deficit SKIN: No rash IV: ok Labs Lab Laboratory Tests Test 03/31/17 12:54 03/31/17 16:39 03/31/17 20:42 04/01/17 05:10 Glucose (Fingerstick) 180 mg/dL (70-99) 205 mg/dL (70-99) 228 mg/dL (70-99) White Blood Count 6.2 x10^3/uL (4.0-11.0) Red Blood Count 3.08 x10^6/uL (4.30-5.70) Hemoglobin 9.5 g/dL (13.0-17.5) Hematocrit 28.1 % (39.0-53.0) Mean Corpuscular Volume 91 fL (79-100) Mean Corpuscular Hemoglobin 31 pg (25-35) Mean Corpuscular Hemoglobin Concent 34 g/dL (31-37) Red Cell Distribution Width 16.1 % (11.5-14.5) Platelet Count 164 x10^3/uL (140-400) Neutrophils (%) (Auto) 57 % (31-73) Lymphocytes (%) (Auto) 21 % (24-48) Monocytes (%) (Auto) 18 % (0-9) Eosinophils (%) (Auto) 2 % (0-3) Basophils (%) (Auto) 1 % (0-3) Neutrophils # (Auto) 3.5 x10^3uL (1.8-7.7) Lymphocytes # (Auto) 1.3 x10^3/uL (1.0-4.8) Monocytes # (Auto) 1.1 x10^3/uL (0.0-1.1) Eosinophils # (Auto) 0.1 x10^3/uL (0.0-0.7) Basophils # (Auto) 0.1 x10^3/uL (0.0-0.2) Prothrombin Time 14.3 SEC (11.7-14.0) Prothromb Time International Ratio 1.2 (0.8-1.1) Sodium Level 140 mmol/L (136-145) Potassium Level 4.0 mmol/L (3.5-5.1) Chloride Level 100 mmol/L (98-107) Carbon Dioxide Level 35 mmol/L (21-32) Anion Gap 5 (6-14) Blood Urea Nitrogen 33 mg/dL (8-26) Creatinine 5.6 mg/dL (0.7-1.3) Estimated GFR (Cockcroft-Gault) 13.1 Glucose Level 184 mg/dL (70-99) Calcium Level 8.2 mg/dL (8.5-10.1) Phosphorus Level 3.6 mg/dL (2.6-4.7) Magnesium Level 2.2 mg/dL (1.8-2.4) Albumin 2.3 g/dL (3.4-5.0) Test 04/01/17 07:16 Glucose (Fingerstick) 168 mg/dL (70-99) Micro 03/31. BLOOD CULTURE Preliminary NO GROWTH AFTER 1 DAY Objective Assessment MSSA Sepsis - POA, clinically looks better -Repeat BC NGTD, 03/31 Left foot infected wound s/p I and D, 03/30. No organisms on gram stain Tongue bacterial overgrowth Fever, resolved Zosyn/pcn allergy - has tolerated Cefepime CKD Plan Plan of Care Cont Meropenem and Micafungin Monitor labs f/u cultures Attending Co-Sign The patient was seen and interviewed as well as examined at the bedside. The chart was reviewed. The case was discussed. Agree with the plan of care. VINICIO BREAUX APRN Apr 01, 2017 09:13 CONCETTA LIANG MD Apr 01, 2017 11:20
[2017-04-01] MEDS: SUCRALFATE 1 GM TABLET. PO SCH ×2 (09:24→20:55)
[2017-04-01] MEDS: MICAFUNGIN 100 MG in IV DEXTROSE 5% 100 ML IV SCH (09:41)
--- NOTE | 2017-04-01 09:47 | PDOC ---
PROGRESS NOTES Chief Complaint Chief Complaint Foot cellulitis Sepsis ASSESSMENT AND PLAN: 1. Sepsis: resolved 2. Foot cellulitis L: recent distal foot amputation for osteo; recurrent cellulitis. wound vac in place 3. Bacteremia: MSSA. on IV Abx as per ID. rpt blood cult on 03/31 NGTD 4. ESRD on HD TTHS 5. Anemia of CKD: on EPO, iron as per nephrology 6. GERD: PPI 7. Hypothyroidism: on hormone repletion 8. CAD: no acute issues. cont home meds 9. PAF: no acute issues, rate controlled, cont home meds 10. Hx recurrent DVT 11. OAC: on warferin 12. Chronic LBP 13. Obesity BMI 37 14: cough: improved with codeine History of Present Illness History of Present Illness feels good. happy about wound vac 'doing its job" Vitals Vitals Vital Signs Date Time Temp Pulse Resp B/P (MAP) Pulse Ox O2 Delivery O2 Flow Rate FiO2 04/01/17 08:43 75 114/63 04/01/17 07:00 98.5 19 97 Room Air 98.5 03/31/17 20:00 6.0 Physical Exam General: Alert, Oriented X3, Cooperative, No acute distress Heart: Regular rate Lungs: Clear Abdomen: Soft Extremities: Other (L distal foot amputation, wound vac in place) Skin: No rashes Labs LABS Laboratory Tests Test 03/31/17 12:54 03/31/17 16:39 03/31/17 20:42 04/01/17 05:10 Glucose (Fingerstick) 180 mg/dL (70-99) 205 mg/dL (70-99) 228 mg/dL (70-99) White Blood Count 6.2 x10^3/uL (4.0-11.0) Red Blood Count 3.08 x10^6/uL (4.30-5.70) Hemoglobin 9.5 g/dL (13.0-17.5) Hematocrit 28.1 % (39.0-53.0) Mean Corpuscular Volume 91 fL (79-100) Mean Corpuscular Hemoglobin 31 pg (25-35) Mean Corpuscular Hemoglobin Concent 34 g/dL (31-37) Red Cell Distribution Width 16.1 % (11.5-14.5) Platelet Count 164 x10^3/uL (140-400) Neutrophils (%) (Auto) 57 % (31-73) Lymphocytes (%) (Auto) 21 % (24-48) Monocytes (%) (Auto) 18 % (0-9) Eosinophils (%) (Auto) 2 % (0-3) Basophils (%) (Auto) 1 % (0-3) Neutrophils # (Auto) 3.5 x10^3uL (1.8-7.7) Lymphocytes # (Auto) 1.3 x10^3/uL (1.0-4.8) Monocytes # (Auto) 1.1 x10^3/uL (0.0-1.1) Eosinophils # (Auto) 0.1 x10^3/uL (0.0-0.7) Basophils # (Auto) 0.1 x10^3/uL (0.0-0.2) Prothrombin Time 14.3 SEC (11.7-14.0) Prothromb Time International Ratio 1.2 (0.8-1.1) Sodium Level 140 mmol/L (136-145) Potassium Level 4.0 mmol/L (3.5-5.1) Chloride Level 100 mmol/L (98-107) Carbon Dioxide Level 35 mmol/L (21-32) Anion Gap 5 (6-14) Blood Urea Nitrogen 33 mg/dL (8-26) Creatinine 5.6 mg/dL (0.7-1.3) Estimated GFR (Cockcroft-Gault) 13.1 Glucose Level 184 mg/dL (70-99) Calcium Level 8.2 mg/dL (8.5-10.1) Phosphorus Level 3.6 mg/dL (2.6-4.7) Magnesium Level 2.2 mg/dL (1.8-2.4) Albumin 2.3 g/dL (3.4-5.0) Test 04/01/17 07:16 Glucose (Fingerstick) 168 mg/dL (70-99) TREVIN VARELA MD Apr 01, 2017 09:47
[2017-04-01 10:54] VITALS: BP 115/59
[2017-04-01 15:00] VITALS: BP 115/65
[2017-04-01] MEDS ORDERED: WARFARIN 5 MG TABLET. PO ONE (16:00)
[2017-04-01 19:00] VITALS: BP 111/62
[2017-04-01] MEDS: FAMOTIDINE 20 MG TABLET. PO SCH (20:54)
[2017-04-01] MEDS: risperiDONE 0.25 MG TABLET. PO SCH (20:54)
[2017-04-01] MEDS: ATORVASTATIN CALCIUM 40 MG TABLET. PO SCH (20:55)
[2017-04-01] MEDS: rOPINIRole 0.25 MG TABLET. PO SCH (20:55)
[2017-04-01] MEDS ORDERED: DARBEPOETIN ALFA 100 MCG/0.5 ML DISP.SYRIN. SQ SCH (21:00)
[2017-04-01] MEDS: ONDANSETRON PF 4 MG/2 ML VIAL. IV PRN (21:51)
[2017-04-01 23:00] VITALS: BP 98/58
[2017-04-02 02:49] VITALS: BP 110/65
[2017-04-02 05:33] LABS: BASO # 0.1 x10^3/uL (0.0-0.2); BASO % 1 % (0-3); EOS % 3 % (0-3); HEMATOCRIT 28.4 % (39.0-53.0); HEMOGLOBIN 9.5 g/dL (13.0-17.5); LYMPH # 1.4 x10^3/uL (1.0-4.8); LYMPH % 21 % (24-48); MEAN CORPUSCULAR HEMOGLOBIN 30 pg (25-35); MEAN CORPUSCULAR HGB CONC 33 g/dL (31-37); MEAN CORPUSCULAR VOLUME 91 fL (79-100); MONO % 16 % (0-9); NEUT % 60 % (31-73); PLATELET COUNT 178 x10^3/uL (140-400); RED BLOOD COUNT 3.13 x10^6/uL (4.30-5.70); RED CELL DISTRIBUTION WIDTH 15.9 % (11.5-14.5); WHITE BLOOD COUNT 6.8 x10^3/uL (4.0-11.0)
[2017-04-02] MEDS: CLOPIDOGREL BISULFATE 75 MG TABLET PO SCH (06:03)
[2017-04-02 06:05] LABS: INR 1.3 (0.8-1.1); PROTHROMBIN TIME PATIENT 15.7 SEC (11.7-14.0)
[2017-04-02] MEDS: LEVOTHYROXINE 175 MCG TABLET PO SCH (06:06)
[2017-04-02 06:15] LABS: ALBUMIN 2.3 g/dL (3.4-5.0); CALCIUM 8.5 mg/dL (8.5-10.1); CREATININE 7.1 mg/dL (0.7-1.3); GFR 9.9; PHOSPHORUS 4.3 mg/dL (2.6-4.7); POTASSIUM 4.1 mmol/L (3.5-5.1)
[2017-04-02 07:05] VITALS: BP 135/69
[2017-04-02] MEDS: SEVELAMER CARBONATE 800 MG TABLET. PO SCH ×3 (08:55→16:45)
[2017-04-02] MEDS: SUCRALFATE 1 GM TABLET. PO SCH ×2 (08:55→21:53)
[2017-04-02] MEDS: levETIRAcetam 500 MG TABLET PO SCH ×2 (08:55→21:41)
[2017-04-02] MEDS: ISOSORBIDE MONONITRATE ER 30 MG TAB.ER.24H PO SCH (08:56)
[2017-04-02] MEDS: CHLORHEXIDINE 0.12% 15 ML MOUTHWASH. SWSP SCH ×2 (08:56→21:40)
[2017-04-02] MEDS: FOLIC/VIT B COMP W-C (RENAL) TABLET. PO SCH (08:57)
[2017-04-02] MEDS: CALCIUM CARBONATE 500 MG TABLET PO SCH ×3 (08:57→16:45)
[2017-04-02] MEDS: SODIUM BICARBONATE 650 MG TABLET. PO SCH ×2 (08:57→21:41)
[2017-04-02] MEDS: CITALOPRAM 20 MG TABLET. PO SCH (08:57)
[2017-04-02] MEDS: METOPROLOL TART IMMED RELEASE 50 MG TABLET. PO SCH ×2 (08:58→21:00)
[2017-04-02] MEDS: MEROPENEM 1 GM in IV NORMAL SALINE 100ML 100 ML IV SCH (08:58)
[2017-04-02] MEDS: DICLOFENAC SODIUM 1% TOPICAL GEL 100GM TUBE. TP SCH ×2 (09:00→21:00)
[2017-04-02] MEDS: MORPHINE SULFATE 4 MG/ML DISP.SYRIN. IV PRN ×3 (09:18→21:55)
--- NOTE | 2017-04-02 10:07 | PDOC ---
Infectious Disease Note Subjective Subjective Comfortable, denies pain ROS ROS GEN: Denies fevers, chills, sweats HEENT: Denies blurred vision, sore throat CV: Denies chest pain RESP: Denies shortness of air, cough GI: Denies n/v/d NEURO: Denies confusion, dizziness MSK: Denies weakness, joint pain/swelling Vital Sign Vital Signs Vital Signs Date Time Temp Pulse Resp B/P (MAP) Pulse Ox O2 Delivery O2 Flow Rate FiO2 04/02/17 09:18 Room Air 04/02/17 08:58 75 135/69 04/02/17 07:05 98.1 18 97 98.1 Physical Exam PHYSICAL EXAM GENERAL: NAD, Alert HEENT: PERRL, OC/OP NECK: Supple, no JVD, no LN LUNGS: Clear HEART: S1S2, no gallop, no murmur ABD: Soft, NT, no organomegaly, no rebound EXT: No edema, no cyanosis MANAGER PROCESS IMPROVEMENT: Alert, oriented x 3, no focal neurologic deficit SKIN: No rash IV: ok Labs Lab Laboratory Tests Test 04/01/17 11:43 04/01/17 16:30 04/01/17 20:40 04/02/17 05:10 Glucose (Fingerstick) 192 mg/dL (70-99) 168 mg/dL (70-99) 141 mg/dL (70-99) White Blood Count 6.8 x10^3/uL (4.0-11.0) Red Blood Count 3.13 x10^6/uL (4.30-5.70) Hemoglobin 9.5 g/dL (13.0-17.5) Hematocrit 28.4 % (39.0-53.0) Mean Corpuscular Volume 91 fL (79-100) Mean Corpuscular Hemoglobin 30 pg (25-35) Mean Corpuscular Hemoglobin Concent 33 g/dL (31-37) Red Cell Distribution Width 15.9 % (11.5-14.5) Platelet Count 178 x10^3/uL (140-400) Neutrophils (%) (Auto) 60 % (31-73) Lymphocytes (%) (Auto) 21 % (24-48) Monocytes (%) (Auto) 16 % (0-9) Eosinophils (%) (Auto) 3 % (0-3) Basophils (%) (Auto) 1 % (0-3) Neutrophils # (Auto) 4.0 x10^3uL (1.8-7.7) Lymphocytes # (Auto) 1.4 x10^3/uL (1.0-4.8) Monocytes # (Auto) 1.1 x10^3/uL (0.0-1.1) Eosinophils # (Auto) 0.2 x10^3/uL (0.0-0.7) Basophils # (Auto) 0.1 x10^3/uL (0.0-0.2) Prothrombin Time 15.7 SEC (11.7-14.0) Prothromb Time International Ratio 1.3 (0.8-1.1) Sodium Level 139 mmol/L (136-145) Potassium Level 4.1 mmol/L (3.5-5.1) Chloride Level 98 mmol/L (98-107) Carbon Dioxide Level 32 mmol/L (21-32) Anion Gap 9 (6-14) Blood Urea Nitrogen 44 mg/dL (8-26) Creatinine 7.1 mg/dL (0.7-1.3) Estimated GFR (Cockcroft-Gault) 9.9 Glucose Level 131 mg/dL (70-99) Calcium Level 8.5 mg/dL (8.5-10.1) Phosphorus Level 4.3 mg/dL (2.6-4.7) Magnesium Level 2.0 mg/dL (1.8-2.4) Albumin 2.3 g/dL (3.4-5.0) Test 04/02/17 07:15 Glucose (Fingerstick) 134 mg/dL (70-99) Objective Assessment Staph aureus Sepsis - POA - MSSA. Clinically looks better Left foot infected wound s/p I and D Tongue bacterial overgrowth Fever - persists ? sepsis vs foot Zosyn/pcn allergy - has tolerated Cefepime CKD Plan Plan of Care Cont Meropenem and Micafungin Monitor labs f/u cultures going to need development expert antibiotics CONCETTA LIANG MD Apr 02, 2017 10:06
[2017-04-02 10:45] VITALS: BP 106/62
--- NOTE | 2017-04-02 11:43 | PDOC ---
PROGRESS NOTES Chief Complaint Chief Complaint Foot cellulitis Sepsis 1. Sepsis: 2. Foot cellulitis L: 3. Bacteremia: MSSA. 4. ESRD on HD TTHS 5. Anemia of CKD: on EPO, 6. GERD: PPI 7. Hypothyroidism: 8. CAD: 9. PAF: 10. Hx recurrent DVT 11. OAC: on warferin 12. Chronic LBP 13. Obesity BMI 37 14: cough: History of Present Illness History of Present Illness Pt resting in bed. VSS Request nilson food Vitals Vitals Vital Signs Date Time Temp Pulse Resp B/P (MAP) Pulse Ox O2 Delivery O2 Flow Rate FiO2 04/02/17 10:45 98.6 71 18 106/62 (77) 94 Room Air 98.6 Physical Exam General: Alert, Oriented X3, Cooperative, No acute distress Heart: Regular rate Lungs: Clear Abdomen: Normal bowel sounds, Soft Extremities: Other (L distal foot amputation, wound vac in place) Skin: No rashes Labs LABS Laboratory Tests Test 04/01/17 11:43 04/01/17 16:30 04/01/17 20:40 04/02/17 05:10 Glucose (Fingerstick) 192 mg/dL (70-99) 168 mg/dL (70-99) 141 mg/dL (70-99) White Blood Count 6.8 x10^3/uL (4.0-11.0) Red Blood Count 3.13 x10^6/uL (4.30-5.70) Hemoglobin 9.5 g/dL (13.0-17.5) Hematocrit 28.4 % (39.0-53.0) Mean Corpuscular Volume 91 fL (79-100) Mean Corpuscular Hemoglobin 30 pg (25-35) Mean Corpuscular Hemoglobin Concent 33 g/dL (31-37) Red Cell Distribution Width 15.9 % (11.5-14.5) Platelet Count 178 x10^3/uL (140-400) Neutrophils (%) (Auto) 60 % (31-73) Lymphocytes (%) (Auto) 21 % (24-48) Monocytes (%) (Auto) 16 % (0-9) Eosinophils (%) (Auto) 3 % (0-3) Basophils (%) (Auto) 1 % (0-3) Neutrophils # (Auto) 4.0 x10^3uL (1.8-7.7) Lymphocytes # (Auto) 1.4 x10^3/uL (1.0-4.8) Monocytes # (Auto) 1.1 x10^3/uL (0.0-1.1) Eosinophils # (Auto) 0.2 x10^3/uL (0.0-0.7) Basophils # (Auto) 0.1 x10^3/uL (0.0-0.2) Prothrombin Time 15.7 SEC (11.7-14.0) Prothromb Time International Ratio 1.3 (0.8-1.1) Sodium Level 139 mmol/L (136-145) Potassium Level 4.1 mmol/L (3.5-5.1) Chloride Level 98 mmol/L (98-107) Carbon Dioxide Level 32 mmol/L (21-32) Anion Gap 9 (6-14) Blood Urea Nitrogen 44 mg/dL (8-26) Creatinine 7.1 mg/dL (0.7-1.3) Estimated GFR (Cockcroft-Gault) 9.9 Glucose Level 131 mg/dL (70-99) Calcium Level 8.5 mg/dL (8.5-10.1) Phosphorus Level 4.3 mg/dL (2.6-4.7) Magnesium Level 2.0 mg/dL (1.8-2.4) Albumin 2.3 g/dL (3.4-5.0) Test 04/02/17 07:15 Glucose (Fingerstick) 134 mg/dL (70-99) Review of Systems Review of Systems co pain co weakness Assessment and Plan Assessmemt and Plan Problems Medical Problems: (1) End stage renal disease Status: Acute (2) Fever Status: Acute ASSESSMENT AND PLAN: 1. Sepsis: resolved 2. Foot cellulitis L: recent distal foot amputation for osteo; recurrent cellulitis. wound vac in place 3. Bacteremia: MSSA. on IV Abx as per ID. rpt blood cult on 03/31 NGTD 4. ESRD on HD TTHS 5. Anemia of CKD: on EPO, iron as per nephrology 6. GERD: PPI 7. Hypothyroidism: on hormone repletion 8. CAD: no acute issues. cont home meds 9. PAF: no acute issues, rate controlled, cont home meds 10. Hx recurrent DVT 11. OAC: on warferin 12. Chronic LBP 13. Obesity BMI 37 14: cough: improved with codeine Discharge when ok with subspecialist Problems: Comment Review of Relevant I have reviewed the following items lila (where applicable) has been applied. Labs Laboratory Tests Test 03/31/17 12:54 03/31/17 16:39 03/31/17 20:42 04/01/17 05:10 Glucose (Fingerstick) 180 mg/dL (70-99) 205 mg/dL (70-99) 228 mg/dL (70-99) White Blood Count 6.2 x10^3/uL (4.0-11.0) Red Blood Count 3.08 x10^6/uL (4.30-5.70) Hemoglobin 9.5 g/dL (13.0-17.5) Hematocrit 28.1 % (39.0-53.0) Mean Corpuscular Volume 91 fL (79-100) Mean Corpuscular Hemoglobin 31 pg (25-35) Mean Corpuscular Hemoglobin Concent 34 g/dL (31-37) Red Cell Distribution Width 16.1 % (11.5-14.5) Platelet Count 164 x10^3/uL (140-400) Neutrophils (%) (Auto) 57 % (31-73) Lymphocytes (%) (Auto) 21 % (24-48) Monocytes (%) (Auto) 18 % (0-9) Eosinophils (%) (Auto) 2 % (0-3) Basophils (%) (Auto) 1 % (0-3) Neutrophils # (Auto) 3.5 x10^3uL (1.8-7.7) Lymphocytes # (Auto) 1.3 x10^3/uL (1.0-4.8) Monocytes # (Auto) 1.1 x10^3/uL (0.0-1.1) Eosinophils # (Auto) 0.1 x10^3/uL (0.0-0.7) Basophils # (Auto) 0.1 x10^3/uL (0.0-0.2) Prothrombin Time 14.3 SEC (11.7-14.0) Prothromb Time International Ratio 1.2 (0.8-1.1) Sodium Level 140 mmol/L (136-145) Potassium Level 4.0 mmol/L (3.5-5.1) Chloride Level 100 mmol/L (98-107) Carbon Dioxide Level 35 mmol/L (21-32) Anion Gap 5 (6-14) Blood Urea Nitrogen 33 mg/dL (8-26) Creatinine 5.6 mg/dL (0.7-1.3) Estimated GFR (Cockcroft-Gault) 13.1 Glucose Level 184 mg/dL (70-99) Calcium Level 8.2 mg/dL (8.5-10.1) Phosphorus Level 3.6 mg/dL (2.6-4.7) Magnesium Level 2.2 mg/dL (1.8-2.4) Albumin 2.3 g/dL (3.4-5.0) Test 04/01/17 07:16 04/01/17 11:43 04/01/17 16:30 04/01/17 20:40 Glucose (Fingerstick) 168 mg/dL (70-99) 192 mg/dL (70-99) 168 mg/dL (70-99) 141 mg/dL (70-99) Test 04/02/17 05:10 04/02/17 07:15 White Blood Count 6.8 x10^3/uL (4.0-11.0) Red Blood Count 3.13 x10^6/uL (4.30-5.70) Hemoglobin 9.5 g/dL (13.0-17.5) Hematocrit 28.4 % (39.0-53.0) Mean Corpuscular Volume 91 fL (79-100) Mean Corpuscular Hemoglobin 30 pg (25-35) Mean Corpuscular Hemoglobin Concent 33 g/dL (31-37) Red Cell Distribution Width 15.9 % (11.5-14.5) Platelet Count 178 x10^3/uL (140-400) Neutrophils (%) (Auto) 60 % (31-73) Lymphocytes (%) (Auto) 21 % (24-48) Monocytes (%) (Auto) 16 % (0-9) Eosinophils (%) (Auto) 3 % (0-3) Basophils (%) (Auto) 1 % (0-3) Neutrophils # (Auto) 4.0 x10^3uL (1.8-7.7) Lymphocytes # (Auto) 1.4 x10^3/uL (1.0-4.8) Monocytes # (Auto) 1.1 x10^3/uL (0.0-1.1) Eosinophils # (Auto) 0.2 x10^3/uL (0.0-0.7) Basophils # (Auto) 0.1 x10^3/uL (0.0-0.2) Prothrombin Time 15.7 SEC (11.7-14.0) Prothromb Time International Ratio 1.3 (0.8-1.1) Sodium Level 139 mmol/L (136-145) Potassium Level 4.1 mmol/L (3.5-5.1) Chloride Level 98 mmol/L (98-107) Carbon Dioxide Level 32 mmol/L (21-32) Anion Gap 9 (6-14) Blood Urea Nitrogen 44 mg/dL (8-26) Creatinine 7.1 mg/dL (0.7-1.3) Estimated GFR (Cockcroft-Gault) 9.9 Glucose Level 131 mg/dL (70-99) Calcium Level 8.5 mg/dL (8.5-10.1) Phosphorus Level 4.3 mg/dL (2.6-4.7) Magnesium Level 2.0 mg/dL (1.8-2.4) Albumin 2.3 g/dL (3.4-5.0) Glucose (Fingerstick) 134 mg/dL (70-99) Laboratory Tests Test 04/01/17 11:43 04/01/17 16:30 04/01/17 20:40 04/02/17 05:10 Glucose (Fingerstick) 192 mg/dL (70-99) 168 mg/dL (70-99) 141 mg/dL (70-99) White Blood Count 6.8 x10^3/uL (4.0-11.0) Red Blood Count 3.13 x10^6/uL (4.30-5.70) Hemoglobin 9.5 g/dL (13.0-17.5) Hematocrit 28.4 % (39.0-53.0) Mean Corpuscular Volume 91 fL (79-100) Mean Corpuscular Hemoglobin 30 pg (25-35) Mean Corpuscular Hemoglobin Concent 33 g/dL (31-37) Red Cell Distribution Width 15.9 % (11.5-14.5) Platelet Count 178 x10^3/uL (140-400) Neutrophils (%) (Auto) 60 % (31-73) Lymphocytes (%) (Auto) 21 % (24-48) Monocytes (%) (Auto) 16 % (0-9) Eosinophils (%) (Auto) 3 % (0-3) Basophils (%) (Auto) 1 % (0-3) Neutrophils # (Auto) 4.0 x10^3uL (1.8-7.7) Lymphocytes # (Auto) 1.4 x10^3/uL (1.0-4.8) Monocytes # (Auto) 1.1 x10^3/uL (0.0-1.1) Eosinophils # (Auto) 0.2 x10^3/uL (0.0-0.7) Basophils # (Auto) 0.1 x10^3/uL (0.0-0.2) Prothrombin Time 15.7 SEC (11.7-14.0) Prothromb Time International Ratio 1.3 (0.8-1.1) Sodium Level 139 mmol/L (136-145) Potassium Level 4.1 mmol/L (3.5-5.1) Chloride Level 98 mmol/L (98-107) Carbon Dioxide Level 32 mmol/L (21-32) Anion Gap 9 (6-14) Blood Urea Nitrogen 44 mg/dL (8-26) Creatinine 7.1 mg/dL (0.7-1.3) Estimated GFR (Cockcroft-Gault) 9.9 Glucose Level 131 mg/dL (70-99) Calcium Level 8.5 mg/dL (8.5-10.1) Phosphorus Level 4.3 mg/dL (2.6-4.7) Magnesium Level 2.0 mg/dL (1.8-2.4) Albumin 2.3 g/dL (3.4-5.0) Test 04/02/17 07:15 Glucose (Fingerstick) 134 mg/dL (70-99) Microbiology 03/31/17 Blood Culture - Preliminary, Resulted NO GROWTH AFTER 1 DAY 03/30/17 Gram Stain - Final, Complete Medications Current Medications Morphine Sulfate 4 mg 1X ONCE IV Last administered on 03/27/17t 10:11; Start 03/27/17 at 10:00; Stop 03/27/17 at 10:05; Status DC Morphine Sulfate 4 mg PRN Q4HRS PRN IV PAIN Last administered on 04/02/17 09: 18; Start 03/27/17 at 13:30 Ondansetron HCl (Zofran) 4 mg PRN Q6HRS PRN IV NAUSEA/VOMITING; Start 03/27/17 at 15:15; Status Cancel Acetaminophen/ Hydrocodone Bitart (Lortab 10/325) 1 tab PRN Q6HRS PRN PO PAIN Last administered on 03/31/17 13:40; Start 03/27/17 at 15:15 Acetaminophen (Tylenol) 500 mg PRN Q6HRS PRN PO MILD PAIN / TEMP Last administered on 03/30/17 21:31; Start 03/27/17 at 15:15 Alprazolam (Xanax) 0.25 mg QID PRN PO ANXIETY / AGITATION; Start 03/27/17 at 15 :30 Calcium Carbonate/ Glycine (Oscal) 500 mg TIDWMEALS PO Last administered on 08:57; Start 03/27/17 at 17:00 Citalopram Hydrobromide (CeleXA) 20 mg DAILY PO Last administered on 04/02/17 08:57; Start 03/28/17 at 09:00 Clopidogrel Bisulfate (Plavix) 75 mg DAILY07 PO Last administered on 04/02/17 06:03; Start 03/28/17 at 07:00 Darbepoetin Jace (Aranesp) 100 mcg WEEKLY SQ ; Start 04/03/17 at 09:00; Status UNV Dexamethasone (Maxidex) 1 drop TID OS ; Start 03/27/17 at 21:00; Status Cancel Diclofenac Sodium (Voltaren) 1 ayaz BID TP ; Start 03/27/17 at 21:00 Ergocalciferol (Vitamin D2) 50,000 unit WEEKLY PO ; Start 04/03/17 at 09:00 Famotidine (Pepcid) 20 mg HS PO Last administered on 04/01/17 20:54; Start at 21:00 Vitamin B Complex/ Vitamin C (Fernanda-Jimmy) 1 tab DAILY PO Last administered on 08:57; Start 03/28/17 at 09:00 Isosorbide Mononitrate (Imdur) 30 mg DAILY PO Last administered on 04/02/17 08 :56; Start 03/28/17 at 09:00 Ketorolac Tromethamine (Acular) 1 drop BID OS ; Start 03/27/17 at 21:00; Status Cancel Levetiracetam (Keppra) 500 mg BID PO Last administered on 04/02/17 08:55; Start 03/27/17 at 21:00 Levothyroxine Sodium (Synthroid) 175 mcg DAILY07 PO Last administered on 06:06; Start 03/28/17 at 07:00 Lidocaine (Lidoderm) 1 patch DAILY TD ; Start 03/28/17 at 09:00; Stop 03/30/17 at 11:00; Status DC Meclizine HCl (Antivert) 12.5 mg TID PO Last administered on 03/29/17 20:49; Start 03/27/17 at 21:00; Stop 03/30/17 at 11:01; Status DC Metoprolol Tartrate (Lopressor) 50 mg BID PO Last administered on 04/02/17 08: 58; Start 03/27/17 at 21:00 Nitroglycerin (Nitrostat) 0.4 mg PRN Q5MIN PRN SL CHEST PAIN; Start 03/27/17 at 15:30 Ropinirole HCl (Requip) 0.25 mg QHS PO Last administered on 04/01/17 20:55; Start 03/27/17 at 21:00 Sevelamer Carbonate (Renvela) 2,400 mg TIDWMEALS PO Last administered on 08:55; Start 03/27/17 at 17:00 Sodium Bicarbonate (Sodium Bicarbonate) 1,300 mg BID PO Last administered on 08:57; Start 03/27/17 at 21:00 Sucralfate (Carafate) 1 gm BID PO Last administered on 04/02/17 08:55; Start 03/27/17 at 21:00 Trazodone HCl (Desyrel) 50 mg QHS PRN PO sleep; Start 03/27/17 at 15:30 Warfarin Sodium (Coumadin) 5 mg DAILY16 PO Last administered on 03/28/17 20:02 ; Start 03/28/17 at 16:00; Stop 03/29/17 at 14:22; Status DC Zolpidem Tartrate (Ambien) 5 mg HS PRN PO sleep Last administered on 03/31/17 22:33; Start 03/27/17 at 15:30 Non-Formulary Medication 1 puff Q6HRS PRN INH SHORTNESS OF BREATH; Start at 15:30; Status UNV Atorvastatin Calcium (Lipitor) 80 mg QHS PO Last administered on 04/01/17 20: 55; Start 03/27/17 at 21:00 Non-Formulary Medication 5 ml DAILY LEFTEYE ; Start 03/28/17 at 09:00; Status UNV Non-Formulary Medication 1 drop Q1HR OS ; Start 03/27/17 at 16:00; Status UNV Risperidone (RisperDAL) 0.5 mg QHS PO Last administered on 04/01/17 20:54; Start 03/27/17 at 21:00 Albuterol Sulfate (Ventolin Neb Soln) 2.5 mg PRN Q6HRS PRN NEB SHORTNESS OF BREATH Last administered on 03/27/17 19:49; Start 03/27/17 at 16:00 Warfarin Sodium (Coumadin Per Physician) 1 each PRN DAILY PRN MC SEE COMMENTS Last administered on 03/28/17 14:54; Start 03/27/17 at 16:15; Stop 03/29/17 at 14:02; Status DC Vancomycin HCl (Vanco Per Pharmacy) 1 each PRN DAILY PRN MC SEE COMMENTS Last administered on 03/30/17 18:59; Start 03/28/17 at 08:15; Stop 03/31/17 at 11:34 ; Status DC Linezolid (Zyvox) 600 mg ONCE ONCE PO Last administered on 03/28/17 08:53; Start 03/28/17 at 08:15; Stop 03/28/17 at 08:21; Status DC Meropenem 1 gm/ Sodium Chloride 100 ml @ 200 mls/hr DAILY IV ; Start 03/28/17 at 08:30; Stop 03/28/17 at 08:30; Status DC Gentamicin Sulfate 1 each ONCE ONCE MC ; Start 03/28/17 at 08:15; Stop at 08:33; Status DC Meropenem 1 gm/ Sodium Chloride 100 ml @ 200 mls/hr DAILY IV Last administered on 04/02/17 08:58; Start 03/28/17 at 08:30 Micafungin Sodium 100 mg/Dextrose 100 ml @ 100 mls/hr Q24H IV Last administered on 04/01/17 09:41; Start 03/28/17 at 10:00 Vancomycin HCl 2 gm/Sodium Chloride 500 ml @ 250 mls/hr ONCE ONCE IV Last administered on 03/28/17 11:20; Start 03/28/17 at 09:00; Stop 03/28/17 at 10:59 ; Status DC Gentamicin Sulfate 280 mg/ Sodium Chloride 107 ml @ 107 mls/hr ONCE ONCE IV Last administered on 03/28/17 09:00; Start 03/28/17 at 09:00; Stop 03/28/17 at 09:59; Status DC Magnesium Sulfate/ Dextrose 50 ml @ 25 mls/hr PRN DAILY PRN IV for Mag < 1.7 on am labs; Start 03/28/17 at 13:30 Sodium Chloride 1,000 ml @ 1,000 mls/hr Q1H PRN IV hypotension; Start 03/28/17 at 13:15; Stop 03/28/17 at 19:14; Status DC Albumin Human 200 ml @ 200 mls/hr 1X PRN PRN IV Hypotension; Start 03/28/17 at 13:15; Stop 03/28/17 at 19:14; Status DC Acetaminophen (Tylenol) 500 mg 1X PRN PRN PO MILD PAIN / TEMP; Start 03/28/17 at 13:15; Stop 03/29/17 at 13:14; Status DC Diphenhydramine HCl (Benadryl) 25 mg 1X PRN PRN IV ITCHING; Start 03/28/17 at 13:15; Stop 03/29/17 at 13:14; Status DC Labetalol HCl (Normodyne) 10 mg PRN Q1HR PRN IVP SBP > 180; Start 03/28/17 at 13:15; Stop 03/29/17 at 13:14; Status DC Clonidine HCl (Catapres) 0.1 mg 1X PRN PRN PO SBP > 180; Start 03/28/17 at 13: 15; Stop 03/29/17 at 13:14; Status DC Info (PHARMACY MONITORING -- do not chart) 1 each PRN DAILY PRN MC SEE COMMENTS ; Start 03/28/17 at 13:15 Lidocaine HCl 20 ml ONCE ONCE IJ Last administered on 03/28/17 13:45; Start 03/28/17 at 13:45; Stop 03/28/17 at 13:46; Status DC Warfarin Sodium (Coumadin) 7.5 mg 1X WARF ONCE PO ; Start 03/28/17 at 16:00; Stop 03/28/17 at 16:01; Status Cancel Vancomycin HCl 1 each 1X ONCE MC Last administered on 03/29/17 06:00; Start 03/29/17 at 06:00; Stop 03/29/17 at 06:01; Status DC Chlorhexidine Gluconate (Peridex) 15 ml BID SWSP Last administered on 08:56; Start 03/29/17 at 09:30 Warfarin Sodium (Coumadin Per Pharmacy) 1 each PRN DAILY PRN MC SEE COMMENTS Last administered on 04/01/17 11:16; Start 03/29/17 at 14:00 Warfarin Sodium (Coumadin) 7.5 mg 1X WARF ONCE PO ; Start 03/29/17 at 16:00; Stop 03/29/17 at 16:01; Status DC Vancomycin HCl 750 mg/Sodium Chloride 100 ml @ 100 mls/hr QTUTHSA IV Last administered on 03/29/17 17:30; Start 03/29/17 at 16:00; Stop 03/31/17 at 11:32 ; Status DC Sodium Chloride 1,000 ml @ 1,000 mls/hr Q1H PRN IV hypotension; Start 03/29/17 at 15:11; Stop 03/29/17 at 21:10; Status DC Sodium Chloride 1,000 ml @ 400 mls/hr Q2H30M PRN IV PATENCY; Start 03/29/17 at 15:11; Stop 03/30/17 at 03:10; Status DC Info (PHARMACY MONITORING -- do not chart) 1 each PRN DAILY PRN MC SEE COMMENTS ; Start 03/29/17 at 15:15; Status UNV Info (PHARMACY MONITORING -- do not chart) 1 each PRN DAILY PRN MC SEE COMMENTS ; Start 03/29/17 at 15:15; Status UNV Ondansetron HCl (Zofran) 4 mg PRN Q6HRS PRN IV NAUSEA/VOMITING; Start 03/30/17 at 07:00; Stop 03/31/17 at 06:59; Status DC Fentanyl Citrate (Fentanyl 2ml Vial) 25 mcg PRN Q5MIN PRN IV MILD PAIN; Start 03/30/17 at 07:00; Stop 03/31/17 at 06:59; Status DC Fentanyl Citrate (Fentanyl 2ml Vial) 50 mcg PRN Q5MIN PRN IV MODERATE PAIN; Start 03/30/17 at 07:00; Stop 03/31/17 at 06:59; Status DC Morphine Sulfate 1 mg PRN Q10MIN PRN IV SEVERE PAIN; Start 03/30/17 at 07:00; Stop 03/31/17 at 06:59; Status DC Ringer's Solution 1,000 ml @ 0 mls/hr Q0M IV ; Start 03/30/17 at 07:00; Stop at 18:59; Status Cancel Lidocaine HCl 2 ml PRN 1X PRN ID PRIOR TO IV START; Start 03/30/17 at 07:00; Stop 03/31/17 at 06:59; Status DC Hydromorphone HCl (Dilaudid) 0.5 mg PRN Q10MIN PRN IV SEV PAIN, Second choice; Start 03/30/17 at 07:00; Stop 03/31/17 at 06:59; Status DC Prochlorperazine Edisylate (Compazine) 5 mg PACU PRN PRN IV NAUSEA, MRX1; Start 03/30/17 at 07:00; Stop 03/31/17 at 06:59; Status DC Bupivacaine HCl/ Epinephrine Bitart (Sensorcain-Mpf Epi 0.5%-1:[id number]) 30 ml STK -MED ONCE .ROUTE ; Start 03/30/17 at 07:41; Stop 03/30/17 at 07:42; Status DC Sodium Chloride 1,000 ml @ 0 mls/hr Q0M IV Last administered on 03/30/17t 16: 27; Start 03/30/17 at 10:00; Stop 03/31/17 at 07:48; Status DC Warfarin Sodium (Coumadin) 7.5 mg 1X WARF ONCE PO Last administered on t 21:12; Start 03/30/17 at 16:00; Stop 03/30/17 at 16:01; Status DC Sodium Chloride 1,000 ml @ 30 mls/hr Q24H IV ; Start 03/30/17 at 16:30; Stop at 07:48; Status DC Dexamethasone Sodium Phosphate (Decadron) 20 mg STK-MED ONCE .ROUTE ; Start at 16:32; Stop 03/30/17 at 16:33; Status DC Ondansetron HCl (Zofran) 4 mg STK-MED ONCE .ROUTE ; Start 03/30/17 at 16:32; Stop 03/30/17 at 16:33; Status DC Propofol 20 ml @ As Directed STK-MED ONCE IV ; Start 03/30/17 at 16:32; Stop at 16:33; Status DC Lidocaine HCl (Lidocaine Pf 2% Vial) 5 ml STK-MED ONCE .ROUTE ; Start 03/30/17 at 16:32; Stop 03/30/17 at 16:33; Status DC Midazolam HCl (Versed) 2 mg STK-MED ONCE .ROUTE ; Start 03/30/17 at 16:32; Stop 03/30/17 at 16:33; Status DC Phenylephrine HCl 1 mg STK-MED ONCE IV ; Start 03/30/17 at 16:48; Stop 03/30/17 at 16:49; Status DC Fentanyl Citrate (Fentanyl 2ml Vial) 100 mcg STK-MED ONCE .ROUTE ; Start at 16:52; Stop 03/30/17 at 16:53; Status DC Sevoflurane (Ultane) 60 ml STK-MED ONCE IH ; Start 03/30/17 at 17:20; Stop 03/30 at 17:21; Status DC Polyethylene Glycol (miraLAX PACKET) 17 gm PRN DAILY PRN PO CONSTIPATION; Start 03/30/17 at 17:30 Ondansetron HCl (Zofran) 4 mg PRN Q4HRS PRN IV NAUSEA/VOMITING Last administered on 04/01/17t 21:51; Start 03/30/17 at 17:30 Dextrose (Dextrose 50%-Water Syringe) 12.5 gm PRN Q15MIN PRN IV SEE COMMENTS; Start 03/30/17 at 17:30 Sevoflurane (Ultane) 30 ml STK-MED ONCE IH ; Start 03/30/17 at 17:46; Stop 03/30 at 17:47; Status DC Sodium Chloride 1,000 ml @ 1,000 mls/hr Q1H PRN IV hypotension; Start 03/31/17 at 07:32; Stop 03/31/17 at 15:00; Status DC Albumin Human 200 ml @ 200 mls/hr 1X PRN PRN IV Hypotension; Start 03/31/17 at 07:45; Stop 03/31/17 at 15:00; Status DC Sodium Chloride 1,000 ml @ 400 mls/hr Q2H30M PRN IV PATENCY; Start 03/31/17 at 07:32; Stop 03/31/17 at 15:00; Status DC Info (PHARMACY MONITORING -- do not chart) 1 each PRN DAILY PRN MC SEE COMMENTS ; Start 03/31/17 at 07:45; Status UNV Lidocaine HCl (Xylocaine-Mpf 1% Vial) 2 ml 1X STAT INJ Last administered on 08:14; Start 03/31/17 at 08:14; Stop 03/31/17 at 08:15; Status DC Warfarin Sodium (Coumadin) 7.5 mg 1X WARF ONCE PO Last administered on 16:44; Start 03/31/17 at 16:00; Stop 03/31/17 at 16:01; Status DC Codeine Sulfate (Codeine) 15 mg PRN Q6HRS PRN PO cough Last administered on 22:32; Start 03/31/17 at 19:15 Codeine Sulfate (Codeine) 30 mg PRN Q6HRS PRN PO cough Last administered on 16:48; Start 03/31/17 at 19:15 Darbepoetin Jace (Aranesp) 100 mcg Freeman@2100 SQ Last administered on 04/01/17 20 :54; Start 04/01/17 at 21:00 Warfarin Sodium (Coumadin) 10 mg 1X WARF ONCE PO Last administered on 16:48; Start 04/01/17 at 16:00; Stop 04/01/17 at 16:01; Status DC Active Scripts Active Levetiracetam 500 Mg Tablet 500 Mg PO BID Lidoderm (Lidocaine) 700 Mg Adh..patch 1 Patch TD DAILY Metoprolol Tartrate 50 Mg Tablet 50 Mg PO BID Synthroid (Levothyroxine Sodium) 175 Mcg Tablet 175 Mcg PO DAILY07 Isosorbide Mononitrate Er (Isosorbide Mononitrate) 30 Mg Tab.er.24h 30 Mg PO DAILY Reported Sodium Bicarbonate 650 Mg Tablet 2 Tab PO BID on dialysis days sunday, and sunday Meclizine Hcl 12.5 Mg Tablet 1 Tab PO TID Calcium Carbonate 500 Mg Tablet 500 Mg PO TIDWMEALS Ambien (Zolpidem Tartrate) 5 Mg Tablet 5 Mg PO HS PRN Alprazolam 0.25 Mg Tablet 1 Tab PO PRN Ventolin Hfa Inhaler (Albuterol Sulfate) 18 Gm Hfa.aer.ad 1 Puff INH Q6HRS PRN Ropinirole Hcl 0.25 Mg Tablet 0.25 Mg PO Citalopram Hbr (Citalopram Hydrobromide) 20 Mg Tablet 1 Tab PO DAILY Trazodone Hcl 50 Mg Tablet 0.5-1 Tab PO QHS Risperidone 0.5 Mg Tablet 1 Tab PO QHS Famotidine 20 Mg Tablet 20 Mg PO HS Coumadin (Warfarin Sodium) 5 Mg Tablet 1 Tab PO DAILY Nephro-Jimmy Tablet (Folic Acid/Vitamin B Comp W-C) 0.8 Mg Tablet 1 Tab PO DAILY Carafate (Sucralfate) 1 Gm Tablet 1 Tab PO BID Nitrostat (Nitroglycerin) 0.4 Mg Tab.subl 0.4 Mg SL PRN Q5MIN PRN Voltaren (Diclofenac Sodium) 100 Gm Gel..gram. 1 Gm TP BID Clopidogrel (Clopidogrel Bisulfate) 75 Mg Tablet 75 Mg PO DAILY07 Renvela (Sevelamer Carbonate) 800 Mg Tablet 2,400 Tab PO TIDWMEALS Vitamin D2 (Ergocalciferol (Vitamin D2)) 50,000 Unit Capsule 50,000 Unit PO WEEKLY weekly on Sunday Atorvastatin Calcium 80 Mg Tablet 80 Mg PO HS Vitals/I & O Vital Sign - Last 24 Hours 04/01/17 04/01/17 04/01/17 04/01/17 15:00 19:00 20:00 20:55 Temp 97.7 97.9 97.7 97.9 Pulse 79 76 76 Resp 18 19 B/P (MAP) 115/65 (82) 111/62 (78) 111/62 Pulse Ox 96 91 O2 Delivery Room Air Room Air Room Air 04/01/17 04/02/17 04/02/17 04/02/17 23:00 02:49 07:05 08:56 Temp 98.6 98.3 98.1 98.6 98.3 98.1 Pulse 82 77 75 75 Resp 18 17 18 B/P (MAP) 98/58 (71) 110/65 (80) 135/69 (91) 135/69 Pulse Ox 97 93 97 O2 Delivery Room Air Room Air Room Air 04/02/17 04/02/17 04/02/17 08:58 09:18 10:45 Temp 98.6 98.6 Pulse 75 71 Resp 18 B/P (MAP) 135/69 106/62 (77) Pulse Ox 94 O2 Delivery Room Air Room Air Intake and Output 04/01/17 04/01/17 04/02/17 15:00 23:00 07:00 Intake Total 357 ml 837 ml 200 ml Balance 357 ml 837 ml 200 ml VIC [email or web address] III DO Apr 02, 2017 11:43
--- NOTE | 2017-04-02 11:48 | PDOC ---
Renal-Progress Notes Subjective Notes Notes NO NEW COMPLAINTS History of Present Illness Hx of present illness STABLE Vitals Vitals Vital Signs Date Time Temp Pulse Resp B/P (MAP) Pulse Ox O2 Delivery O2 Flow Rate FiO2 04/02/17 10:45 98.6 71 18 106/62 (77) 94 Room Air 98.6 Weight Weight [ ] I.O. Intake and Output Intake and Output 04/02/17 07:00 Intake Total 1394 ml Balance 1394 ml Intake Oral 1394 ml # Voids 2 Labs Labs Laboratory Tests Test 04/01/17 16:30 04/01/17 20:40 04/02/17 05:10 04/02/17 07:15 Glucose (Fingerstick) 168 mg/dL (70-99) 141 mg/dL (70-99) 134 mg/dL (70-99) White Blood Count 6.8 x10^3/uL (4.0-11.0) Red Blood Count 3.13 x10^6/uL (4.30-5.70) Hemoglobin 9.5 g/dL (13.0-17.5) Hematocrit 28.4 % (39.0-53.0) Mean Corpuscular Volume 91 fL (79-100) Mean Corpuscular Hemoglobin 30 pg (25-35) Mean Corpuscular Hemoglobin Concent 33 g/dL (31-37) Red Cell Distribution Width 15.9 % (11.5-14.5) Platelet Count 178 x10^3/uL (140-400) Neutrophils (%) (Auto) 60 % (31-73) Lymphocytes (%) (Auto) 21 % (24-48) Monocytes (%) (Auto) 16 % (0-9) Eosinophils (%) (Auto) 3 % (0-3) Basophils (%) (Auto) 1 % (0-3) Neutrophils # (Auto) 4.0 x10^3uL (1.8-7.7) Lymphocytes # (Auto) 1.4 x10^3/uL (1.0-4.8) Monocytes # (Auto) 1.1 x10^3/uL (0.0-1.1) Eosinophils # (Auto) 0.2 x10^3/uL (0.0-0.7) Basophils # (Auto) 0.1 x10^3/uL (0.0-0.2) Prothrombin Time 15.7 SEC (11.7-14.0) Prothromb Time International Ratio 1.3 (0.8-1.1) Sodium Level 139 mmol/L (136-145) Potassium Level 4.1 mmol/L (3.5-5.1) Chloride Level 98 mmol/L (98-107) Carbon Dioxide Level 32 mmol/L (21-32) Anion Gap 9 (6-14) Blood Urea Nitrogen 44 mg/dL (8-26) Creatinine 7.1 mg/dL (0.7-1.3) Estimated GFR (Cockcroft-Gault) 9.9 Glucose Level 131 mg/dL (70-99) Calcium Level 8.5 mg/dL (8.5-10.1) Phosphorus Level 4.3 mg/dL (2.6-4.7) Magnesium Level 2.0 mg/dL (1.8-2.4) Albumin 2.3 g/dL (3.4-5.0) Micro Micro Microbiology 03/31/17 Blood Culture - Preliminary, Resulted NO GROWTH AFTER 1 DAY 03/30/17 Gram Stain - Final, Complete Review of Systems Constitutional: yes: weakness, alert, oriented Ears/Nose/Throat: Yes: no symptom reported Pulmonary: Yes no symptom reported Gastrointestional: Yes: no symptom reported, constipation Genitourinary: Yes: no symptom reported Musculoskeletal: Yes: joint pain Psychiatric/Neurological: Yes: no symptom reported Physical Exam General Appearance: no apparent distress Skin: warm Respiratory: bilateral CTA Heart: S1S2 Abdomen: soft, bowel sounds present Neurology: alert Assessment Assessment IMP ESRD ANEMIA HTN DM II L LE WOUND PLAN WOUND CARE ANTIBIOTICS HD TOMORROW GRACE VILLEDA MD Apr 02, 2017 11:48
[2017-04-02] MEDS: MICAFUNGIN 100 MG in IV DEXTROSE 5% 100 ML IV SCH (13:23)
[2017-04-02] MEDS: ONDANSETRON PF 4 MG/2 ML VIAL. IV PRN (13:28)
[2017-04-02 14:50] VITALS: BP 123/60
[2017-04-02] MEDS ORDERED: WARFARIN 10 MG TABLET. PO ONE (16:00)
[2017-04-02 19:50] VITALS: BP 127/61
[2017-04-02] MEDS: ZOLPIDEM 5 MG TABLET. PO PRN ×2 (21:41→21:52)
[2017-04-02] MEDS: ATORVASTATIN CALCIUM 40 MG TABLET. PO SCH (21:41)
[2017-04-02] MEDS: rOPINIRole 0.25 MG TABLET. PO SCH (21:41)
[2017-04-02] MEDS: FAMOTIDINE 20 MG TABLET. PO SCH (21:42)
[2017-04-02] MEDS: risperiDONE 0.25 MG TABLET. PO SCH (21:53)
[2017-04-02 23:48] VITALS: BP 114/58
[2017-04-03 03:40] VITALS: BP 127/65
[2017-04-03] MEDS: MORPHINE SULFATE 4 MG/ML DISP.SYRIN. IV PRN ×2 (04:03→20:24)
[2017-04-03 05:23] LABS: BASO # 0.1 x10^3/uL (0.0-0.2); BASO % 2 % (0-3); EOS % 2 % (0-3); HEMATOCRIT 29.7 % (39.0-53.0); LYMPH # 1.1 x10^3/uL (1.0-4.8); LYMPH % 16 % (24-48); MEAN CORPUSCULAR HEMOGLOBIN 31 pg (25-35); MEAN CORPUSCULAR HGB CONC 34 g/dL (31-37); MEAN CORPUSCULAR VOLUME 91 fL (79-100); MONO % 12 % (0-9); NEUT % 69 % (31-73); PLATELET COUNT 214 x10^3/uL (140-400); RED BLOOD COUNT 3.27 x10^6/uL (4.30-5.70)
[2017-04-03 05:28] LABS: INR 1.5 (0.8-1.1); PROTHROMBIN TIME PATIENT 16.9 SEC (11.7-14.0)
[2017-04-03 05:47] LABS: ALBUMIN 2.4 g/dL (3.4-5.0); CALCIUM 8.6 mg/dL (8.5-10.1); CREATININE 8.6 mg/dL (0.7-1.3); PHOSPHORUS 4.4 mg/dL (2.6-4.7); POTASSIUM 4.1 mmol/L (3.5-5.1)
[2017-04-03] MEDS: CLOPIDOGREL BISULFATE 75 MG TABLET PO SCH (05:53)
[2017-04-03] MEDS: LEVOTHYROXINE 175 MCG TABLET PO SCH (05:54)
[2017-04-03 06:56] VITALS: BP 123/58
[2017-04-03] MEDS: SEVELAMER CARBONATE 800 MG TABLET. PO SCH ×3 (08:00→17:00)
[2017-04-03] MEDS: CALCIUM CARBONATE 500 MG TABLET PO SCH ×3 (08:00→17:00)
[2017-04-03] MEDS ORDERED: IV NORMAL SALINE 1000ML BAG 1,000 ML IV PRN ×2 (08:54)
[2017-04-03] MEDS: ISOSORBIDE MONONITRATE ER 30 MG TAB.ER.24H PO SCH (09:00)
[2017-04-03] MEDS: SUCRALFATE 1 GM TABLET. PO SCH ×2 (09:00→20:20)
[2017-04-03] MEDS: METOPROLOL TART IMMED RELEASE 50 MG TABLET. PO SCH ×2 (09:00→20:39)
[2017-04-03] MEDS: FOLIC/VIT B COMP W-C (RENAL) TABLET. PO SCH (09:00)
[2017-04-03] MEDS ORDERED: ERGOCALCIFEROL (VITAMIN D2) 50,000 UNIT CAPSULE. PO SCH (09:00)
[2017-04-03] MEDS: CITALOPRAM 20 MG TABLET. PO SCH (09:00)
[2017-04-03] MEDS ORDERED: DIALYSIS PATIENT. MC PRN ×2 (09:00)
[2017-04-03] MEDS: SODIUM BICARBONATE 650 MG TABLET. PO SCH ×2 (09:00→20:20)
[2017-04-03] MEDS: DICLOFENAC SODIUM 1% TOPICAL GEL 100GM TUBE. TP SCH ×2 (09:00→20:43)
[2017-04-03] MEDS: MEROPENEM 1 GM in IV NORMAL SALINE 100ML 100 ML IV SCH (09:00)
[2017-04-03] MEDS: levETIRAcetam 500 MG TABLET PO SCH ×2 (09:00→20:19)
[2017-04-03] MEDS: CHLORHEXIDINE 0.12% 15 ML MOUTHWASH. SWSP SCH ×2 (09:00→20:39)
[2017-04-03] MEDS ORDERED: DARBEPOETIN ALFA 100 MCG/0.5 ML DISP.SYRIN. SQ SCH (09:00)
--- NOTE | 2017-04-03 09:41 | PDOC ---
Infectious Disease Note Subjective Subjective Comfortable, denies pain ROS ROS GEN: Denies fevers, chills, sweats HEENT: Denies blurred vision, sore throat CV: Denies chest pain RESP: Denies shortness of air, cough GI: Denies n/v/d NEURO: Denies confusion, dizziness MSK: Denies weakness, joint pain/swelling Vital Sign Vital Signs Vital Signs Date Time Temp Pulse Resp B/P (MAP) Pulse Ox O2 Delivery O2 Flow Rate FiO2 04/03/17 06:56 97.9 77 15 123/58 (79) 96 Room Air 97.9 04/03/17 04:03 6.0 Physical Exam PHYSICAL EXAM GENERAL: NAD, Alert HEENT: PERRL, OC/OP NECK: Supple, no JVD, no LN LUNGS: Clear HEART: S1S2, no gallop, no murmur ABD: Soft, NT, no organomegaly, no rebound EXT: No edema, no cyanosis [employer]MINAL [employer]SEM[employer]ER: Alert, oriented x 3, no focal neurologic deficit SKIN: No rash IV: ok Labs Lab Laboratory Tests Test 04/02/17 11:45 04/02/17 16:46 04/02/17 20:40 04/03/17 05:00 Glucose (Fingerstick) 166 mg/dL (70-99) 193 mg/dL (70-99) 175 mg/dL (70-99) White Blood Count 7.0 x10^3/uL (4.0-11.0) Red Blood Count 3.27 x10^6/uL (4.30-5.70) Hemoglobin 10.0 g/dL (13.0-17.5) Hematocrit 29.7 % (39.0-53.0) Mean Corpuscular Volume 91 fL (79-100) Mean Corpuscular Hemoglobin 31 pg (25-35) Mean Corpuscular Hemoglobin Concent 34 g/dL (31-37) Red Cell Distribution Width 16.0 % (11.5-14.5) Platelet Count 214 x10^3/uL (140-400) Neutrophils (%) (Auto) 69 % (31-73) Lymphocytes (%) (Auto) 16 % (24-48) Monocytes (%) (Auto) 12 % (0-9) Eosinophils (%) (Auto) 2 % (0-3) Basophils (%) (Auto) 2 % (0-3) Neutrophils # (Auto) 4.8 x10^3uL (1.8-7.7) Lymphocytes # (Auto) 1.1 x10^3/uL (1.0-4.8) Monocytes # (Auto) 0.8 x10^3/uL (0.0-1.1) Eosinophils # (Auto) 0.1 x10^3/uL (0.0-0.7) Basophils # (Auto) 0.1 x10^3/uL (0.0-0.2) Prothrombin Time 16.9 SEC (11.7-14.0) Prothromb Time International Ratio 1.5 (0.8-1.1) Sodium Level 137 mmol/L (136-145) Potassium Level 4.1 mmol/L (3.5-5.1) Chloride Level 96 mmol/L (98-107) Carbon Dioxide Level 36 mmol/L (21-32) Anion Gap 5 (6-14) Blood Urea Nitrogen 50 mg/dL (8-26) Creatinine 8.6 mg/dL (0.7-1.3) Estimated GFR (Cockcroft-Gault) 8.0 Glucose Level 154 mg/dL (70-99) Calcium Level 8.6 mg/dL (8.5-10.1) Phosphorus Level 4.4 mg/dL (2.6-4.7) Albumin 2.4 g/dL (3.4-5.0) Test 04/03/17 06:56 Glucose (Fingerstick) 175 mg/dL (70-99) Objective Assessment Staph aureus Sepsis - POA - MSSA. Clinically looks better Left foot infected wound s/p I and D mssa Tongue bacterial overgrowth Fever - persists ? sepsis vs foot Zosyn/pcn allergy - has tolerated Cefepime CKD Plan Plan of Care Change Meropenem to cefazolin and d/c Micafungin Monitor labs f/u cultures going to need termite helper antibiotics CONCETTA LIANG MD Apr 03, 2017 09:41
--- NOTE | 2017-04-03 11:21 | PDOC ---
Renal-Progress Notes Subjective Notes Notes ASLEEP ON HD History of Present Illness Hx of present illness STABLE Vitals Vitals Vital Signs Date Time Temp Pulse Resp B/P (MAP) Pulse Ox O2 Delivery O2 Flow Rate FiO2 04/03/17 08:30 Room Air 6.0 04/03/17 06:56 97.9 77 15 123/58 (79) 96 97.9 Weight Weight [ ] I.O. Intake and Output Intake and Output 04/03/17 07:00 Intake Total 1500 ml Balance 1500 ml Intake Oral 1500 ml # Voids 1 Labs Labs Laboratory Tests Test 04/02/17 11:45 04/02/17 16:46 04/02/17 20:40 04/03/17 05:00 Glucose (Fingerstick) 166 mg/dL (70-99) 193 mg/dL (70-99) 175 mg/dL (70-99) White Blood Count 7.0 x10^3/uL (4.0-11.0) Red Blood Count 3.27 x10^6/uL (4.30-5.70) Hemoglobin 10.0 g/dL (13.0-17.5) Hematocrit 29.7 % (39.0-53.0) Mean Corpuscular Volume 91 fL (79-100) Mean Corpuscular Hemoglobin 31 pg (25-35) Mean Corpuscular Hemoglobin Concent 34 g/dL (31-37) Red Cell Distribution Width 16.0 % (11.5-14.5) Platelet Count 214 x10^3/uL (140-400) Neutrophils (%) (Auto) 69 % (31-73) Lymphocytes (%) (Auto) 16 % (24-48) Monocytes (%) (Auto) 12 % (0-9) Eosinophils (%) (Auto) 2 % (0-3) Basophils (%) (Auto) 2 % (0-3) Neutrophils # (Auto) 4.8 x10^3uL (1.8-7.7) Lymphocytes # (Auto) 1.1 x10^3/uL (1.0-4.8) Monocytes # (Auto) 0.8 x10^3/uL (0.0-1.1) Eosinophils # (Auto) 0.1 x10^3/uL (0.0-0.7) Basophils # (Auto) 0.1 x10^3/uL (0.0-0.2) Prothrombin Time 16.9 SEC (11.7-14.0) Prothromb Time International Ratio 1.5 (0.8-1.1) Sodium Level 137 mmol/L (136-145) Potassium Level 4.1 mmol/L (3.5-5.1) Chloride Level 96 mmol/L (98-107) Carbon Dioxide Level 36 mmol/L (21-32) Anion Gap 5 (6-14) Blood Urea Nitrogen 50 mg/dL (8-26) Creatinine 8.6 mg/dL (0.7-1.3) Estimated GFR (Cockcroft-Gault) 8.0 Glucose Level 154 mg/dL (70-99) Calcium Level 8.6 mg/dL (8.5-10.1) Phosphorus Level 4.4 mg/dL (2.6-4.7) Albumin 2.4 g/dL (3.4-5.0) Test 04/03/17 06:56 Glucose (Fingerstick) 175 mg/dL (70-99) Micro Micro Microbiology 03/31/17 Blood Culture - Preliminary, Resulted NO GROWTH AFTER 2 DAYS 03/30/17 Gram Stain - Final, Complete Review of Systems Constitutional: yes: weakness Ears/Nose/Throat: Yes: no symptom reported Pulmonary: Yes no symptom reported Gastrointestional: Yes: no symptom reported, constipation Genitourinary: Yes: no symptom reported Musculoskeletal: Yes: joint pain Psychiatric/Neurological: Yes: no symptom reported Physical Exam General Appearance: no apparent distress Skin: warm Respiratory: bilateral CTA Heart: S1S2 Abdomen: soft, bowel sounds present Neurology: alert Assessment Assessment IMP ESRD ANEMIA HTN DM II L LE WOUND PLAN WOUND CARE ANTIBIOTICS HD TODAY UF TO GRACE BUSTILLOS MD Apr 03, 2017 11:21
--- NOTE | 2017-04-03 11:55 | PDOC ---
PROGRESS NOTES Chief Complaint Chief Complaint Foot cellulitis Sepsis 1. Sepsis: 2. Foot cellulitis L 3. Bacteremia 4. ESRD 5. Anemia of CKD, 6. GERD 7. Hypothyroidism 8. CAD 9. PAF 10. Hx recurrent DVT 11. OAC 12. Chronic LBP 13. Obesity BMI 37 14: cough History of Present Illness History of Present Illness Pt fatigued from HD and resting in bed. Complains of L foot pain. Desires to go home. Vitals Vitals Vital Signs Date Time Temp Pulse Resp B/P (MAP) Pulse Ox O2 Delivery O2 Flow Rate FiO2 04/03/17 08:30 Room Air 6.0 04/03/17 06:56 97.9 77 15 123/58 (79) 96 97.9 Physical Exam General: Alert, Oriented X3, Cooperative, No acute distress Heart: Regular rate Lungs: Clear Abdomen: Normal bowel sounds, Soft Extremities: Other (L distal foot amputation, wound vac in place) Skin: No rashes Labs LABS Laboratory Tests Test 04/02/17 16:46 04/02/17 20:40 04/03/17 05:00 04/03/17 06:56 Glucose (Fingerstick) 193 mg/dL (70-99) 175 mg/dL (70-99) 175 mg/dL (70-99) White Blood Count 7.0 x10^3/uL (4.0-11.0) Red Blood Count 3.27 x10^6/uL (4.30-5.70) Hemoglobin 10.0 g/dL (13.0-17.5) Hematocrit 29.7 % (39.0-53.0) Mean Corpuscular Volume 91 fL (79-100) Mean Corpuscular Hemoglobin 31 pg (25-35) Mean Corpuscular Hemoglobin Concent 34 g/dL (31-37) Red Cell Distribution Width 16.0 % (11.5-14.5) Platelet Count 214 x10^3/uL (140-400) Neutrophils (%) (Auto) 69 % (31-73) Lymphocytes (%) (Auto) 16 % (24-48) Monocytes (%) (Auto) 12 % (0-9) Eosinophils (%) (Auto) 2 % (0-3) Basophils (%) (Auto) 2 % (0-3) Neutrophils # (Auto) 4.8 x10^3uL (1.8-7.7) Lymphocytes # (Auto) 1.1 x10^3/uL (1.0-4.8) Monocytes # (Auto) 0.8 x10^3/uL (0.0-1.1) Eosinophils # (Auto) 0.1 x10^3/uL (0.0-0.7) Basophils # (Auto) 0.1 x10^3/uL (0.0-0.2) Prothrombin Time 16.9 SEC (11.7-14.0) Prothromb Time International Ratio 1.5 (0.8-1.1) Sodium Level 137 mmol/L (136-145) Potassium Level 4.1 mmol/L (3.5-5.1) Chloride Level 96 mmol/L (98-107) Carbon Dioxide Level 36 mmol/L (21-32) Anion Gap 5 (6-14) Blood Urea Nitrogen 50 mg/dL (8-26) Creatinine 8.6 mg/dL (0.7-1.3) Estimated GFR (Cockcroft-Gault) 8.0 Glucose Level 154 mg/dL (70-99) Calcium Level 8.6 mg/dL (8.5-10.1) Phosphorus Level 4.4 mg/dL (2.6-4.7) Albumin 2.4 g/dL (3.4-5.0) Review of Systems Review of Systems Fatigued from HD L foot pain Assessment and Plan Assessmemt and Plan Problems Medical Problems: (1) End stage renal disease Status: Acute (2) Fever Status: Acute ASSESSMENT AND PLAN: 1. Sepsis: resolved 2. Foot cellulitis L: recent distal foot amputation for osteo; recurrent cellulitis. wound vac in place, meropenem changed to cefazolin, d/c micafungin 3. Bacteremia: MSSA. on IV Abx as per ID. rpt blood cult on 03/31 NGTD 4. ESRD on HD TTHS 5. Anemia of CKD: on EPO, iron as per nephrology 6. GERD: PPI 7. Hypothyroidism: on hormone repletion 8. CAD: no acute issues. cont home meds 9. PAF: no acute issues, rate controlled, cont home meds 10. Hx recurrent DVT 11. OAC: on warfarin, subtheraputic, pharm to follow 12. Chronic LBP 13. Obesity BMI 37 14: cough: improved with codeine DC w/hyperbaric O2, likely this afternoon 04/03/17 Problems: Comment Review of Relevant I have reviewed the following items lila (where applicable) has been applied. Labs Laboratory Tests Test 04/01/17 16:30 04/01/17 20:40 04/02/17 05:10 04/02/17 07:15 Glucose (Fingerstick) 168 mg/dL (70-99) 141 mg/dL (70-99) 134 mg/dL (70-99) White Blood Count 6.8 x10^3/uL (4.0-11.0) Red Blood Count 3.13 x10^6/uL (4.30-5.70) Hemoglobin 9.5 g/dL (13.0-17.5) Hematocrit 28.4 % (39.0-53.0) Mean Corpuscular Volume 91 fL (79-100) Mean Corpuscular Hemoglobin 30 pg (25-35) Mean Corpuscular Hemoglobin Concent 33 g/dL (31-37) Red Cell Distribution Width 15.9 % (11.5-14.5) Platelet Count 178 x10^3/uL (140-400) Neutrophils (%) (Auto) 60 % (31-73) Lymphocytes (%) (Auto) 21 % (24-48) Monocytes (%) (Auto) 16 % (0-9) Eosinophils (%) (Auto) 3 % (0-3) Basophils (%) (Auto) 1 % (0-3) Neutrophils # (Auto) 4.0 x10^3uL (1.8-7.7) Lymphocytes # (Auto) 1.4 x10^3/uL (1.0-4.8) Monocytes # (Auto) 1.1 x10^3/uL (0.0-1.1) Eosinophils # (Auto) 0.2 x10^3/uL (0.0-0.7) Basophils # (Auto) 0.1 x10^3/uL (0.0-0.2) Prothrombin Time 15.7 SEC (11.7-14.0) Prothromb Time International Ratio 1.3 (0.8-1.1) Sodium Level 139 mmol/L (136-145) Potassium Level 4.1 mmol/L (3.5-5.1) Chloride Level 98 mmol/L (98-107) Carbon Dioxide Level 32 mmol/L (21-32) Anion Gap 9 (6-14) Blood Urea Nitrogen 44 mg/dL (8-26) Creatinine 7.1 mg/dL (0.7-1.3) Estimated GFR (Cockcroft-Gault) 9.9 Glucose Level 131 mg/dL (70-99) Calcium Level 8.5 mg/dL (8.5-10.1) Phosphorus Level 4.3 mg/dL (2.6-4.7) Magnesium Level 2.0 mg/dL (1.8-2.4) Albumin 2.3 g/dL (3.4-5.0) Test 04/02/17 11:45 04/02/17 16:46 04/02/17 20:40 04/03/17 05:00 Glucose (Fingerstick) 166 mg/dL (70-99) 193 mg/dL (70-99) 175 mg/dL (70-99) White Blood Count 7.0 x10^3/uL (4.0-11.0) Red Blood Count 3.27 x10^6/uL (4.30-5.70) Hemoglobin 10.0 g/dL (13.0-17.5) Hematocrit 29.7 % (39.0-53.0) Mean Corpuscular Volume 91 fL (79-100) Mean Corpuscular Hemoglobin 31 pg (25-35) Mean Corpuscular Hemoglobin Concent 34 g/dL (31-37) Red Cell Distribution Width 16.0 % (11.5-14.5) Platelet Count 214 x10^3/uL (140-400) Neutrophils (%) (Auto) 69 % (31-73) Lymphocytes (%) (Auto) 16 % (24-48) Monocytes (%) (Auto) 12 % (0-9) Eosinophils (%) (Auto) 2 % (0-3) Basophils (%) (Auto) 2 % (0-3) Neutrophils # (Auto) 4.8 x10^3uL (1.8-7.7) Lymphocytes # (Auto) 1.1 x10^3/uL (1.0-4.8) Monocytes # (Auto) 0.8 x10^3/uL (0.0-1.1) Eosinophils # (Auto) 0.1 x10^3/uL (0.0-0.7) Basophils # (Auto) 0.1 x10^3/uL (0.0-0.2) Prothrombin Time 16.9 SEC (11.7-14.0) Prothromb Time International Ratio 1.5 (0.8-1.1) Sodium Level 137 mmol/L (136-145) Potassium Level 4.1 mmol/L (3.5-5.1) Chloride Level 96 mmol/L (98-107) Carbon Dioxide Level 36 mmol/L (21-32) Anion Gap 5 (6-14) Blood Urea Nitrogen 50 mg/dL (8-26) Creatinine 8.6 mg/dL (0.7-1.3) Estimated GFR (Cockcroft-Gault) 8.0 Glucose Level 154 mg/dL (70-99) Calcium Level 8.6 mg/dL (8.5-10.1) Phosphorus Level 4.4 mg/dL (2.6-4.7) Albumin 2.4 g/dL (3.4-5.0) Test 04/03/17 06:56 Glucose (Fingerstick) 175 mg/dL (70-99) Laboratory Tests Test 04/02/17 16:46 04/02/17 20:40 04/03/17 05:00 04/03/17 06:56 Glucose (Fingerstick) 193 mg/dL (70-99) 175 mg/dL (70-99) 175 mg/dL (70-99) White Blood Count 7.0 x10^3/uL (4.0-11.0) Red Blood Count 3.27 x10^6/uL (4.30-5.70) Hemoglobin 10.0 g/dL (13.0-17.5) Hematocrit 29.7 % (39.0-53.0) Mean Corpuscular Volume 91 fL (79-100) Mean Corpuscular Hemoglobin 31 pg (25-35) Mean Corpuscular Hemoglobin Concent 34 g/dL (31-37) Red Cell Distribution Width 16.0 % (11.5-14.5) Platelet Count 214 x10^3/uL (140-400) Neutrophils (%) (Auto) 69 % (31-73) Lymphocytes (%) (Auto) 16 % (24-48) Monocytes (%) (Auto) 12 % (0-9) Eosinophils (%) (Auto) 2 % (0-3) Basophils (%) (Auto) 2 % (0-3) Neutrophils # (Auto) 4.8 x10^3uL (1.8-7.7) Lymphocytes # (Auto) 1.1 x10^3/uL (1.0-4.8) Monocytes # (Auto) 0.8 x10^3/uL (0.0-1.1) Eosinophils # (Auto) 0.1 x10^3/uL (0.0-0.7) Basophils # (Auto) 0.1 x10^3/uL (0.0-0.2) Prothrombin Time 16.9 SEC (11.7-14.0) Prothromb Time International Ratio 1.5 (0.8-1.1) Sodium Level 137 mmol/L (136-145) Potassium Level 4.1 mmol/L (3.5-5.1) Chloride Level 96 mmol/L (98-107) Carbon Dioxide Level 36 mmol/L (21-32) Anion Gap 5 (6-14) Blood Urea Nitrogen 50 mg/dL (8-26) Creatinine 8.6 mg/dL (0.7-1.3) Estimated GFR (Cockcroft-Gault) 8.0 Glucose Level 154 mg/dL (70-99) Calcium Level 8.6 mg/dL (8.5-10.1) Phosphorus Level 4.4 mg/dL (2.6-4.7) Albumin 2.4 g/dL (3.4-5.0) Microbiology 03/31/17 Blood Culture - Preliminary, Resulted NO GROWTH AFTER 2 DAYS 03/30/17 Gram Stain - Final, Complete Medications Current Medications Morphine Sulfate 4 mg 1X ONCE IV Last administered on 03/27/17 10:11; Start 03/27/17 at 10:00; Stop 03/27/17 at 10:05; Status DC Morphine Sulfate 4 mg PRN Q4HRS PRN IV PAIN Last administered on 04/03/17 04: 03; Start 03/27/17 at 13:30 Ondansetron HCl (Zofran) 4 mg PRN Q6HRS PRN IV NAUSEA/VOMITING; Start 03/27/17 at 15:15; Status Cancel Acetaminophen/ Hydrocodone Bitart (Lortab 10/325) 1 tab PRN Q6HRS PRN PO PAIN Last administered on 03/31/17 13:40; Start 03/27/17 at 15:15 Acetaminophen (Tylenol) 500 mg PRN Q6HRS PRN PO MILD PAIN / TEMP Last administered on 03/30/17 21:31; Start 03/27/17 at 15:15 Alprazolam (Xanax) 0.25 mg QID PRN PO ANXIETY / AGITATION; Start 03/27/17 at 15 :30 Calcium Carbonate/ Glycine (Oscal) 500 mg TIDWMEALS PO Last administered on 16:45; Start 03/27/17 at 17:00 Citalopram Hydrobromide (CeleXA) 20 mg DAILY PO Last administered on 04/02/17 08:57; Start 03/28/17 at 09:00 Clopidogrel Bisulfate (Plavix) 75 mg DAILY07 PO Last administered on 04/03/17 05:53; Start 03/28/17 at 07:00 Darbepoetin Jace (Aranesp) 100 mcg WEEKLY SQ ; Start 04/03/17 at 09:00; Status UNV Dexamethasone (Maxidex) 1 drop TID OS ; Start 03/27/17 at 21:00; Status Cancel Diclofenac Sodium (Voltaren) 1 ayaz BID TP ; Start 03/27/17 at 21:00 Ergocalciferol (Vitamin D2) 50,000 unit WEEKLY PO ; Start 04/03/17 at 09:00 Famotidine (Pepcid) 20 mg HS PO Last administered on 04/02/17 21:42; Start at 21:00 Vitamin B Complex/ Vitamin C (Fernanda-Jimmy) 1 tab DAILY PO Last administered on 08:57; Start 03/28/17 at 09:00 Isosorbide Mononitrate (Imdur) 30 mg DAILY PO Last administered on 04/02/17 08 :56; Start 03/28/17 at 09:00 Ketorolac Tromethamine (Acular) 1 drop BID OS ; Start 03/27/17 at 21:00; Status Cancel Levetiracetam (Keppra) 500 mg BID PO Last administered on 04/02/17 21:41; Start 03/27/17 at 21:00 Levothyroxine Sodium (Synthroid) 175 mcg DAILY07 PO Last administered on 05:54; Start 03/28/17 at 07:00 Lidocaine (Lidoderm) 1 patch DAILY TD ; Start 03/28/17 at 09:00; Stop 03/30/17 at 11:00; Status DC Meclizine HCl (Antivert) 12.5 mg TID PO Last administered on 03/29/17 20:49; Start 03/27/17 at 21:00; Stop 03/30/17 at 11:01; Status DC Metoprolol Tartrate (Lopressor) 50 mg BID PO Last administered on 04/02/17 21: 00; Start 03/27/17 at 21:00 Nitroglycerin (Nitrostat) 0.4 mg PRN Q5MIN PRN SL CHEST PAIN; Start 03/27/17 at 15:30 Ropinirole HCl (Requip) 0.25 mg QHS PO Last administered on 04/02/17 21:41; Start 03/27/17 at 21:00 Sevelamer Carbonate (Renvela) 2,400 mg TIDWMEALS PO Last administered on 16:45; Start 03/27/17 at 17:00 Sodium Bicarbonate (Sodium Bicarbonate) 1,300 mg BID PO Last administered on 21:41; Start 03/27/17 at 21:00 Sucralfate (Carafate) 1 gm BID PO Last administered on 04/02/17 21:53; Start 03/27/17 at 21:00 Trazodone HCl (Desyrel) 50 mg QHS PRN PO sleep; Start 03/27/17 at 15:30 Warfarin Sodium (Coumadin) 5 mg DAILY16 PO Last administered on 03/28/17 20:02 ; Start 03/28/17 at 16:00; Stop 03/29/17 at 14:22; Status DC Zolpidem Tartrate (Ambien) 5 mg HS PRN PO sleep Last administered on 04/02/17 21:52; Start 03/27/17 at 15:30 Non-Formulary Medication 1 puff Q6HRS PRN INH SHORTNESS OF BREATH; Start at 15:30; Status UNV Atorvastatin Calcium (Lipitor) 80 mg QHS PO Last administered on 04/02/17 21: 41; Start 03/27/17 at 21:00 Non-Formulary Medication 5 ml DAILY LEFTEYE ; Start 03/28/17 at 09:00; Status UNV Non-Formulary Medication 1 drop Q1HR OS ; Start 03/27/17 at 16:00; Status UNV Risperidone (RisperDAL) 0.5 mg QHS PO Last administered on 04/02/17 21:53; Start 03/27/17 at 21:00 Albuterol Sulfate (Ventolin Neb Soln) 2.5 mg PRN Q6HRS PRN NEB SHORTNESS OF BREATH Last administered on 03/27/17 19:49; Start 03/27/17 at 16:00 Warfarin Sodium (Coumadin Per Physician) 1 each PRN DAILY PRN MC SEE COMMENTS Last administered on 03/28/17 14:54; Start 03/27/17 at 16:15; Stop 03/29/17 at 14:02; Status DC Vancomycin HCl (Vanco Per Pharmacy) 1 each PRN DAILY PRN MC SEE COMMENTS Last administered on 03/30/17 18:59; Start 03/28/17 at 08:15; Stop 03/31/17 at 11:34 ; Status DC Linezolid (Zyvox) 600 mg ONCE ONCE PO Last administered on 03/28/17 08:53; Start 03/28/17 at 08:15; Stop 03/28/17 at 08:21; Status DC Meropenem 1 gm/ Sodium Chloride 100 ml @ 200 mls/hr DAILY IV ; Start 03/28/17 at 08:30; Stop 03/28/17 at 08:30; Status DC Gentamicin Sulfate 1 each ONCE ONCE MC ; Start 03/28/17 at 08:15; Stop at 08:33; Status DC Meropenem 1 gm/ Sodium Chloride 100 ml @ 200 mls/hr DAILY IV Last administered on 04/02/17 08:58; Start 03/28/17 at 08:30; Stop 04/03/17 at 09:42 ; Status DC Micafungin Sodium 100 mg/Dextrose 100 ml @ 100 mls/hr Q24H IV Last administered on 04/02/17 13:23; Start 03/28/17 at 10:00; Stop 04/03/17 at 09:42 ; Status DC Vancomycin HCl 2 gm/Sodium Chloride 500 ml @ 250 mls/hr ONCE ONCE IV Last administered on 03/28/17 11:20; Start 03/28/17 at 09:00; Stop 03/28/17 at 10:59 ; Status DC Gentamicin Sulfate 280 mg/ Sodium Chloride 107 ml @ 107 mls/hr ONCE ONCE IV Last administered on 03/28/17 09:00; Start 03/28/17 at 09:00; Stop 03/28/17 at 09:59; Status DC Magnesium Sulfate/ Dextrose 50 ml @ 25 mls/hr PRN DAILY PRN IV for Mag < 1.7 on am labs; Start 03/28/17 at 13:30 Sodium Chloride 1,000 ml @ 1,000 mls/hr Q1H PRN IV hypotension; Start 03/28/17 at 13:15; Stop 03/28/17 at 19:14; Status DC Albumin Human 200 ml @ 200 mls/hr 1X PRN PRN IV Hypotension; Start 03/28/17 at 13:15; Stop 03/28/17 at 19:14; Status DC Acetaminophen (Tylenol) 500 mg 1X PRN PRN PO MILD PAIN / TEMP; Start 03/28/17 at 13:15; Stop 03/29/17 at 13:14; Status DC Diphenhydramine HCl (Benadryl) 25 mg 1X PRN PRN IV ITCHING; Start 03/28/17 at 13:15; Stop 03/29/17 at 13:14; Status DC Labetalol HCl (Normodyne) 10 mg PRN Q1HR PRN IVP SBP > 180; Start 03/28/17 at 13:15; Stop 03/29/17 at 13:14; Status DC Clonidine HCl (Catapres) 0.1 mg 1X PRN PRN PO SBP > 180; Start 03/28/17 at 13: 15; Stop 03/29/17 at 13:14; Status DC Info (PHARMACY MONITORING -- do not chart) 1 each PRN DAILY PRN MC SEE COMMENTS ; Start 03/28/17 at 13:15 Lidocaine HCl 20 ml ONCE ONCE IJ Last administered on 03/28/17 13:45; Start 03/28/17 at 13:45; Stop 03/28/17 at 13:46; Status DC Warfarin Sodium (Coumadin) 7.5 mg 1X WARF ONCE PO ; Start 03/28/17 at 16:00; Stop 03/28/17 at 16:01; Status Cancel Vancomycin HCl 1 each 1X ONCE MC Last administered on 03/29/17 06:00; Start 03/29/17 at 06:00; Stop 03/29/17 at 06:01; Status DC Chlorhexidine Gluconate (Peridex) 15 ml BID SWSP Last administered on 21:40; Start 03/29/17 at 09:30 Warfarin Sodium (Coumadin Per Pharmacy) 1 each PRN DAILY PRN MC SEE COMMENTS Last administered on 04/02/17 12:29; Start 03/29/17 at 14:00 Warfarin Sodium (Coumadin) 7.5 mg 1X WARF ONCE PO ; Start 03/29/17 at 16:00; Stop 03/29/17 at 16:01; Status DC Vancomycin HCl 750 mg/Sodium Chloride 100 ml @ 100 mls/hr QTUTHSA IV Last administered on 03/29/17 17:30; Start 03/29/17 at 16:00; Stop 03/31/17 at 11:32 ; Status DC Sodium Chloride 1,000 ml @ 1,000 mls/hr Q1H PRN IV hypotension; Start 03/29/17 at 15:11; Stop 03/29/17 at 21:10; Status DC Sodium Chloride 1,000 ml @ 400 mls/hr Q2H30M PRN IV PATENCY; Start 03/29/17 at 15:11; Stop 03/30/17 at 03:10; Status DC Info (PHARMACY MONITORING -- do not chart) 1 each PRN DAILY PRN MC SEE COMMENTS ; Start 03/29/17 at 15:15; Status UNV Info (PHARMACY MONITORING -- do not chart) 1 each PRN DAILY PRN MC SEE COMMENTS ; Start 03/29/17 at 15:15; Status UNV Ondansetron HCl (Zofran) 4 mg PRN Q6HRS PRN IV NAUSEA/VOMITING; Start 03/30/17 at 07:00; Stop 03/31/17 at 06:59; Status DC Fentanyl Citrate (Fentanyl 2ml Vial) 25 mcg PRN Q5MIN PRN IV MILD PAIN; Start 03/30/17 at 07:00; Stop 03/31/17 at 06:59; Status DC Fentanyl Citrate (Fentanyl 2ml Vial) 50 mcg PRN Q5MIN PRN IV MODERATE PAIN; Start 03/30/17 at 07:00; Stop 03/31/17 at 06:59; Status DC Morphine Sulfate 1 mg PRN Q10MIN PRN IV SEVERE PAIN; Start 03/30/17 at 07:00; Stop 03/31/17 at 06:59; Status DC Ringer's Solution 1,000 ml @ 0 mls/hr Q0M IV ; Start 03/30/17 at 07:00; Stop at 18:59; Status Cancel Lidocaine HCl 2 ml PRN 1X PRN ID PRIOR TO IV START; Start 03/30/17 at 07:00; Stop 03/31/17 at 06:59; Status DC Hydromorphone HCl (Dilaudid) 0.5 mg PRN Q10MIN PRN IV SEV PAIN, Second choice; Start 03/30/17 at 07:00; Stop 03/31/17 at 06:59; Status DC Prochlorperazine Edisylate (Compazine) 5 mg PACU PRN PRN IV NAUSEA, MRX1; Start 03/30/17 at 07:00; Stop 03/31/17 at 06:59; Status DC Bupivacaine HCl/ Epinephrine Bitart (Sensorcain-Mpf Epi 0.5%-1:[id number]) 30 ml STK -MED ONCE .ROUTE ; Start 03/30/17 at 07:41; Stop 03/30/17 at 07:42; Status DC Sodium Chloride 1,000 ml @ 0 mls/hr Q0M IV Last administered on 03/30/17 16: 27; Start 03/30/17 at 10:00; Stop 03/31/17 at 07:48; Status DC Warfarin Sodium (Coumadin) 7.5 mg 1X WARF ONCE PO Last administered on t 21:12; Start 03/30/17 at 16:00; Stop 03/30/17 at 16:01; Status DC Sodium Chloride 1,000 ml @ 30 mls/hr Q24H IV ; Start 03/30/17 at 16:30; Stop at 07:48; Status DC Dexamethasone Sodium Phosphate (Decadron) 20 mg STK-MED ONCE .ROUTE ; Start at 16:32; Stop 03/30/17 at 16:33; Status DC Ondansetron HCl (Zofran) 4 mg STK-MED ONCE .ROUTE ; Start 03/30/17 at 16:32; Stop 03/30/17 at 16:33; Status DC Propofol 20 ml @ As Directed STK-MED ONCE IV ; Start 03/30/17 at 16:32; Stop at 16:33; Status DC Lidocaine HCl (Lidocaine Pf 2% Vial) 5 ml STK-MED ONCE .ROUTE ; Start 03/30/17 at 16:32; Stop 03/30/17 at 16:33; Status DC Midazolam HCl (Versed) 2 mg STK-MED ONCE .ROUTE ; Start 03/30/17 at 16:32; Stop 03/30/17 at 16:33; Status DC Phenylephrine HCl 1 mg STK-MED ONCE IV ; Start 03/30/17 at 16:48; Stop 03/30/17 at 16:49; Status DC Fentanyl Citrate (Fentanyl 2ml Vial) 100 mcg STK-MED ONCE .ROUTE ; Start at 16:52; Stop 03/30/17 at 16:53; Status DC Sevoflurane (Ultane) 60 ml STK-MED ONCE IH ; Start 03/30/17 at 17:20; Stop 03/30 at 17:21; Status DC Polyethylene Glycol (miraLAX PACKET) 17 gm PRN DAILY PRN PO CONSTIPATION; Start 03/30/17 at 17:30 Ondansetron HCl (Zofran) 4 mg PRN Q4HRS PRN IV NAUSEA/VOMITING Last administered on 04/02/17t 13:28; Start 03/30/17 at 17:30 Dextrose (Dextrose 50%-Water Syringe) 12.5 gm PRN Q15MIN PRN IV SEE COMMENTS; Start 03/30/17 at 17:30 Sevoflurane (Ultane) 30 ml STK-MED ONCE IH ; Start 03/30/17 at 17:46; Stop 03/30 at 17:47; Status DC Sodium Chloride 1,000 ml @ 1,000 mls/hr Q1H PRN IV hypotension; Start 03/31/17 at 07:32; Stop 03/31/17 at 15:00; Status DC Albumin Human 200 ml @ 200 mls/hr 1X PRN PRN IV Hypotension; Start 03/31/17 at 07:45; Stop 03/31/17 at 15:00; Status DC Sodium Chloride 1,000 ml @ 400 mls/hr Q2H30M PRN IV PATENCY; Start 03/31/17 at 07:32; Stop 03/31/17 at 15:00; Status DC Info (PHARMACY MONITORING -- do not chart) 1 each PRN DAILY PRN MC SEE COMMENTS ; Start 03/31/17 at 07:45; Status UNV Lidocaine HCl (Xylocaine-Mpf 1% Vial) 2 ml 1X STAT INJ Last administered on 08:14; Start 03/31/17 at 08:14; Stop 03/31/17 at 08:15; Status DC Warfarin Sodium (Coumadin) 7.5 mg 1X WARF ONCE PO Last administered on 16:44; Start 03/31/17 at 16:00; Stop 03/31/17 at 16:01; Status DC Codeine Sulfate (Codeine) 15 mg PRN Q6HRS PRN PO cough Last administered on 22:32; Start 03/31/17 at 19:15 Codeine Sulfate (Codeine) 30 mg PRN Q6HRS PRN PO cough Last administered on 16:48; Start 03/31/17 at 19:15 Darbepoetin Jace (Aranesp) 100 mcg Freeman@2100 SQ Last administered on 04/01/17 20 :54; Start 04/01/17 at 21:00 Warfarin Sodium (Coumadin) 10 mg 1X WARF ONCE PO Last administered on 16:48; Start 04/01/17 at 16:00; Stop 04/01/17 at 16:01; Status DC Warfarin Sodium (Coumadin) 10 mg 1X WARF ONCE PO Last administered on 16:45; Start 04/02/17 at 16:00; Stop 04/02/17 at 16:01; Status DC Sodium Chloride 1,000 ml @ 1,000 mls/hr Q1H PRN IV hypotension; Start 04/03/17 at 08:54; Stop 04/03/17 at 14:53 Sodium Chloride 1,000 ml @ 400 mls/hr Q2H30M PRN IV PATENCY; Start 04/03/17 at 08:54; Stop 04/03/17 at 20:53 Info (PHARMACY MONITORING -- do not chart) 1 each PRN DAILY PRN MC SEE COMMENTS ; Start 04/03/17 at 09:00; Status UNV Info (PHARMACY MONITORING -- do not chart) 1 each PRN DAILY PRN MC SEE COMMENTS ; Start 04/03/17 at 09:00; Status UNV Cefazolin Sodium 1 gm/Sodium Chloride 50 ml @ 100 mls/hr DAILY IV ; Start 04/03 at 10:00 Warfarin Sodium (Coumadin) 10 mg 1X WARF ONCE PO ; Start 04/03/17 at 16:00; Stop 04/03/17 at 16:01 Active Scripts Active Levetiracetam 500 Mg Tablet 500 Mg PO BID Lidoderm (Lidocaine) 700 Mg Adh..patch 1 Patch TD DAILY Metoprolol Tartrate 50 Mg Tablet 50 Mg PO BID Synthroid (Levothyroxine Sodium) 175 Mcg Tablet 175 Mcg PO DAILY07 Isosorbide Mononitrate Er (Isosorbide Mononitrate) 30 Mg Tab.er.24h 30 Mg PO DAILY Reported Sodium Bicarbonate 650 Mg Tablet 2 Tab PO BID on dialysis days sunday, and sunday Meclizine Hcl 12.5 Mg Tablet 1 Tab PO TID Calcium Carbonate 500 Mg Tablet 500 Mg PO TIDWMEALS Ambien (Zolpidem Tartrate) 5 Mg Tablet 5 Mg PO HS PRN Alprazolam 0.25 Mg Tablet 1 Tab PO PRN Ventolin Hfa Inhaler (Albuterol Sulfate) 18 Gm Hfa.aer.ad 1 Puff INH Q6HRS PRN Ropinirole Hcl 0.25 Mg Tablet 0.25 Mg PO Citalopram Hbr (Citalopram Hydrobromide) 20 Mg Tablet 1 Tab PO DAILY Trazodone Hcl 50 Mg Tablet 0.5-1 Tab PO QHS Risperidone 0.5 Mg Tablet 1 Tab PO QHS Famotidine 20 Mg Tablet 20 Mg PO HS Coumadin (Warfarin Sodium) 5 Mg Tablet 1 Tab PO DAILY Nephro-Jimmy Tablet (Folic Acid/Vitamin B Comp W-C) 0.8 Mg Tablet 1 Tab PO DAILY Carafate (Sucralfate) 1 Gm Tablet 1 Tab PO BID Nitrostat (Nitroglycerin) 0.4 Mg Tab.subl 0.4 Mg SL PRN Q5MIN PRN Voltaren (Diclofenac Sodium) 100 Gm Gel..gram. 1 Gm TP BID Clopidogrel (Clopidogrel Bisulfate) 75 Mg Tablet 75 Mg PO DAILY07 Renvela (Sevelamer Carbonate) 800 Mg Tablet 2,400 Tab PO TIDWMEALS Vitamin D2 (Ergocalciferol (Vitamin D2)) 50,000 Unit Capsule 50,000 Unit PO WEEKLY weekly on Sunday Atorvastatin Calcium 80 Mg Tablet 80 Mg PO HS Vitals/I & O Vital Sign - Last 24 Hours 04/02/17 04/02/17 04/02/17 04/02/17 14:50 16:45 19:50 21:00 Temp 98.6 98.3 98.6 98.3 Pulse 78 71 71 Resp 16 16 B/P (MAP) 123/60 (81) 127/61 (83) 127/61 Pulse Ox 92 96 O2 Delivery Room Air Room Air Room Air 04/02/17 04/02/17 04/02/17 04/03/17 21:55 23:31 23:48 03:40 Temp 98.4 98.6 98.4 98.6 Pulse 77 88 Resp 16 16 16 B/P (MAP) 114/58 (76) 127/65 (85) Pulse Ox 96 95 98 O2 Delivery Room Air Room Air Room Air O2 Flow Rate 6.0 04/03/17 04/03/17 04/03/17 04/03/17 04:03 04:46 06:56 08:30 Temp 97.9 97.9 Pulse 77 Resp 18 18 15 B/P (MAP) 123/58 (79) Pulse Ox 98 96 O2 Delivery Room Air Room Air Room Air O2 Flow Rate 6.0 6.0 Intake and Output 04/02/17 04/02/17 04/03/17 15:00 23:00 07:00 Intake Total 800 ml 700 ml Balance 800 ml 700 ml VIC TIWARI III DO Apr 03, 2017 11:55
[2017-04-03] MEDS ORDERED: 0.9 % SODIUM CHLORIDE 10 ML DISP.SYRIN. IV PRN ×3 (14:30→18:00)
[2017-04-03] MEDS ORDERED: LIDOCAINE 1% PF 2 ML VIAL. ID PRN (14:30)
[2017-04-03] MEDS ORDERED: LIDOCAINE/PRILOCAINE TOPICAL CREAM 5GM TUBE. TP ONE (14:30)
[2017-04-03 15:02] VITALS: BP 117/70
[2017-04-03] MEDS ORDERED: WARFARIN 10 MG TABLET. PO ONE (16:00)
[2017-04-03] MEDS: ONDANSETRON PF 4 MG/2 ML VIAL. IV PRN (17:33)
[2017-04-03 19:00] VITALS: BP 146/80
[2017-04-03] MEDS: risperiDONE 0.25 MG TABLET. PO SCH (20:19)
[2017-04-03] MEDS: rOPINIRole 0.25 MG TABLET. PO SCH (20:19)
[2017-04-03] MEDS: ZOLPIDEM 5 MG TABLET. PO PRN (20:20)
[2017-04-03] MEDS: FAMOTIDINE 20 MG TABLET. PO SCH (20:34)
[2017-04-03] MEDS: ATORVASTATIN CALCIUM 40 MG TABLET. PO SCH (20:34)
[2017-04-03 23:00] VITALS: BP 106/46
[2017-04-04] VITALS (11 sets, daily range): BP systolic 120–152; BP diastolic 63–84
[2017-04-04 05:30] LABS: PROTHROMBIN TIME PATIENT 21.3 SEC (11.7-14.0)
[2017-04-04 05:59] LABS: ALBUMIN 2.2 g/dL (3.4-5.0); CALCIUM 8.6 mg/dL (8.5-10.1); CREATININE 6.2 mg/dL (0.7-1.3); GFR 11.6; PHOSPHORUS 3.4 mg/dL (2.6-4.7); POTASSIUM 4.5 mmol/L (3.5-5.1)
[2017-04-04] MEDS: LEVOTHYROXINE 175 MCG TABLET PO SCH (06:15)
[2017-04-04] MEDS: CLOPIDOGREL BISULFATE 75 MG TABLET PO SCH (06:16)
[2017-04-04] MEDS: IV RINGERS,LACTATED 1000ML 1,000 ML IV SCH ×2 (07:13→14:20)
[2017-04-04] MEDS ORDERED: HYDROmorphone 2 MG/ML VIAL IV PRN (07:15)
[2017-04-04] MEDS ORDERED: LIDOCAINE 1% 1 ML SYRINGE. ID PRN (07:15)
[2017-04-04] MEDS ORDERED: fentaNYL PF VIAL 100 MCG/2 ML VIAL IV PRN (07:15)
[2017-04-04] MEDS ORDERED: PROCHLORPERAZINE 10 MG/2 ML VIAL. IV PRN (07:15)
[2017-04-04] MEDS ORDERED: MORPHINE SULFATE 2 MG/ML DISP.SYRIN. IV PRN (07:15)
[2017-04-04] MEDS ORDERED: ONDANSETRON PF 4 MG/2 ML VIAL. IV PRN ×2 (07:15→16:30)
[2017-04-04] MEDS: SEVELAMER CARBONATE 800 MG TABLET. PO SCH ×3 (08:00→17:00)
[2017-04-04] MEDS: CALCIUM CARBONATE 500 MG TABLET PO SCH ×3 (08:00→17:00)
[2017-04-04] MEDS: FOLIC/VIT B COMP W-C (RENAL) TABLET. PO SCH (09:00)
[2017-04-04] MEDS: DICLOFENAC SODIUM 1% TOPICAL GEL 100GM TUBE. TP SCH ×2 (09:00→21:00)
[2017-04-04] MEDS: levETIRAcetam 500 MG TABLET PO SCH ×2 (09:00→21:04)
[2017-04-04] MEDS: CHLORHEXIDINE 0.12% 15 ML MOUTHWASH. SWSP SCH ×2 (09:00→21:05)
[2017-04-04] MEDS: METOPROLOL TART IMMED RELEASE 50 MG TABLET. PO SCH ×2 (09:00→21:05)
[2017-04-04] MEDS: ISOSORBIDE MONONITRATE ER 30 MG TAB.ER.24H PO SCH (09:00)
[2017-04-04] MEDS: SODIUM BICARBONATE 650 MG TABLET. PO SCH ×2 (09:00→21:04)
[2017-04-04] MEDS: SUCRALFATE 1 GM TABLET. PO SCH ×2 (09:00→21:10)
--- NOTE | 2017-04-04 09:42 | PDOC ---
Infectious Disease Note Subjective Subjective Comfortable, denies pain ROS ROS GEN: Denies fevers, chills, sweats HEENT: Denies blurred vision, sore throat CV: Denies chest pain RESP: Denies shortness of air, cough GI: Denies n/v/d NEURO: Denies confusion, dizziness MSK: Denies weakness, joint pain/swelling Vital Sign Vital Signs Vital Signs Date Time Temp Pulse Resp B/P (MAP) Pulse Ox O2 Delivery O2 Flow Rate FiO2 04/04/17 07:30 97.9 72 19 122/63 (82) 97 Room Air 97.9 04/03/17 08:30 6.0 Physical Exam PHYSICAL EXAM GENERAL: NAD, Alert HEENT: PERRL, OC/OP NECK: Supple, no JVD, no LN LUNGS: Clear HEART: S1S2, no gallop, no murmur ABD: Soft, NT, no organomegaly, no rebound EXT: No edema, no cyanosis,, wound vac in place ORTHOPAEDIC PHYSICIAN ASSISTANT: Alert, oriented x 3, no focal neurologic deficit SKIN: No rash IV: ok Labs Lab Laboratory Tests Test 04/03/17 21:04 04/04/17 05:00 04/04/17 07:45 Glucose (Fingerstick) 140 mg/dL (70-99) 107 mg/dL (70-99) Prothrombin Time 21.3 SEC (11.7-14.0) Prothromb Time International Ratio 2.0 (0.8-1.1) Sodium Level 139 mmol/L (136-145) Potassium Level 4.5 mmol/L (3.5-5.1) Chloride Level 102 mmol/L (98-107) Carbon Dioxide Level 32 mmol/L (21-32) Anion Gap 5 (6-14) Blood Urea Nitrogen 29 mg/dL (8-26) Creatinine 6.2 mg/dL (0.7-1.3) Estimated GFR (Cockcroft-Gault) 11.6 Glucose Level 92 mg/dL (70-99) Calcium Level 8.6 mg/dL (8.5-10.1) Phosphorus Level 3.4 mg/dL (2.6-4.7) Albumin 2.2 g/dL (3.4-5.0) Objective Assessment Staph aureus Sepsis - POA - MSSA. Clinically looks better Left foot infected wound s/p I and D mssa Tongue bacterial overgrowth Fever - persists ? 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
--- NOTE | 2017-04-04 11:46 | PDOC ---
Renal-Progress Notes Subjective Notes Notes NONE History of Present Illness Hx of present illness NO CHANGE Vitals Vitals Vital Signs Date Time Temp Pulse Resp B/P (MAP) Pulse Ox O2 Delivery O2 Flow Rate FiO2 04/04/17 11:01 97.9 67 18 124/69 (87) 97 Room Air 97.9 04/03/17 08:30 6.0 Weight Weight [ ] I.O. Intake and Output Intake and Output 04/04/17 07:00 Intake Total 750 ml Output Total 301 ml Balance 449 ml Intake Oral 750 ml Output Urine Total 300 ml Stool Total 1 ml # Voids 2 Labs Labs Laboratory Tests Test 04/03/17 21:04 04/04/17 05:00 04/04/17 07:45 04/04/17 10:54 Glucose (Fingerstick) 140 mg/dL (70-99) 107 mg/dL (70-99) 106 mg/dL (70-99) Prothrombin Time 21.3 SEC (11.7-14.0) Prothromb Time International Ratio 2.0 (0.8-1.1) Sodium Level 139 mmol/L (136-145) Potassium Level 4.5 mmol/L (3.5-5.1) Chloride Level 102 mmol/L (98-107) Carbon Dioxide Level 32 mmol/L (21-32) Anion Gap 5 (6-14) Blood Urea Nitrogen 29 mg/dL (8-26) Creatinine 6.2 mg/dL (0.7-1.3) Estimated GFR (Cockcroft-Gault) 11.6 Glucose Level 92 mg/dL (70-99) Calcium Level 8.6 mg/dL (8.5-10.1) Phosphorus Level 3.4 mg/dL (2.6-4.7) Albumin 2.2 g/dL (3.4-5.0) Micro Micro Microbiology 03/31/17 Blood Culture - Preliminary, Resulted NO GROWTH AFTER 3 DAYS 03/30/17 Gram Stain - Final, Complete Review of Systems Constitutional: yes: weakness Ears/Nose/Throat: Yes: no symptom reported Pulmonary: Yes no symptom reported Gastrointestional: Yes: no symptom reported, constipation Genitourinary: Yes: no symptom reported Musculoskeletal: Yes: joint pain Psychiatric/Neurological: Yes: no symptom reported Physical Exam General Appearance: no apparent distress Skin: warm Respiratory: bilateral CTA Heart: S1S2 Abdomen: soft, bowel sounds present Neurology: alert Assessment Assessment IMP ESRD ANEMIA HTN DM II L LE WOUND PLAN WOUND CARE ANTIBIOTICS HD TOMORROW PICC LINE PLACED GRACE VILLEDA MD Apr 04, 2017 11:46
--- NOTE | 2017-04-04 12:30 | PDOC ---
PROGRESS NOTES Chief Complaint Chief Complaint Foot cellulitis Sepsis 1. Sepsis: 2. Foot cellulitis L 3. Bacteremia 4. ESRD 5. Anemia of CKD, 6. GERD 7. Hypothyroidism 8. CAD 9. PAF 10. Hx recurrent DVT 11. OAC 12. Chronic LBP 13. Obesity BMI 37 14: Cough History of Present Illness History of Present Illness Pt complains of L foot pain. Desires to go home. Going to surgery for stitching of L foot wound. No acute overnight events Vitals Vitals Vital Signs Date Time Temp Pulse Resp B/P (MAP) Pulse Ox O2 Delivery O2 Flow Rate FiO2 04/04/17 11:01 97.9 67 18 124/69 (87) 97 Room Air 97.9 04/03/17 08:30 6.0 Physical Exam General: Alert, Oriented X3, Cooperative, No acute distress Heart: Regular rate Lungs: Clear Abdomen: Normal bowel sounds, Soft Extremities: Other (L distal foot amputation, wound vac in place) Skin: No rashes Labs LABS Laboratory Tests Test 04/03/17 21:04 04/04/17 05:00 04/04/17 07:45 04/04/17 10:54 Glucose (Fingerstick) 140 mg/dL (70-99) 107 mg/dL (70-99) 106 mg/dL (70-99) Prothrombin Time 21.3 SEC (11.7-14.0) Prothromb Time International Ratio 2.0 (0.8-1.1) Sodium Level 139 mmol/L (136-145) Potassium Level 4.5 mmol/L (3.5-5.1) Chloride Level 102 mmol/L (98-107) Carbon Dioxide Level 32 mmol/L (21-32) Anion Gap 5 (6-14) Blood Urea Nitrogen 29 mg/dL (8-26) Creatinine 6.2 mg/dL (0.7-1.3) Estimated GFR (Cockcroft-Gault) 11.6 Glucose Level 92 mg/dL (70-99) Calcium Level 8.6 mg/dL (8.5-10.1) Phosphorus Level 3.4 mg/dL (2.6-4.7) Albumin 2.2 g/dL (3.4-5.0) Review of Systems Review of Systems Complains of L foot pain Complains of hunger Assessment and Plan Assessmemt and Plan Problems Medical Problems: (1) End stage renal disease Status: Acute (2) Fever Status: Acute 1. Sepsis: resolved 2. Foot cellulitis L: recent distal foot amputation for osteo; recurrent cellulitis. wound vac in place, continue cefazolin 3. Bacteremia: MSSA. on IV Abx as per ID. rpt blood cult on 03/31 NGTD 4. ESRD: Continue HD 5. Anemia of CKD: on EPO, iron as per nephrology 6. GERD: PPI 7. Hypothyroidism: on hormone repletion 8. CAD: no acute issues. cont home meds 9. PAF: no acute issues, rate controlled, cont home meds 10. Hx recurrent DVT 11. OAC: on warfarin, subtheraputic, pharm to follow 12. Chronic LBP 13. Obesity BMI 37 14: cough: improved with codeine Dispo: possible DC today if stable after surgery and surgical team agrees Problems: Comment Review of Relevant I have reviewed the following items lila (where applicable) has been applied. Labs Laboratory Tests Test 04/02/17 16:46 04/02/17 20:40 04/03/17 05:00 04/03/17 06:56 Glucose (Fingerstick) 193 mg/dL (70-99) 175 mg/dL (70-99) 175 mg/dL (70-99) White Blood Count 7.0 x10^3/uL (4.0-11.0) Red Blood Count 3.27 x10^6/uL (4.30-5.70) Hemoglobin 10.0 g/dL (13.0-17.5) Hematocrit 29.7 % (39.0-53.0) Mean Corpuscular Volume 91 fL (79-100) Mean Corpuscular Hemoglobin 31 pg (25-35) Mean Corpuscular Hemoglobin Concent 34 g/dL (31-37) Red Cell Distribution Width 16.0 % (11.5-14.5) Platelet Count 214 x10^3/uL (140-400) Neutrophils (%) (Auto) 69 % (31-73) Lymphocytes (%) (Auto) 16 % (24-48) Monocytes (%) (Auto) 12 % (0-9) Eosinophils (%) (Auto) 2 % (0-3) Basophils (%) (Auto) 2 % (0-3) Neutrophils # (Auto) 4.8 x10^3uL (1.8-7.7) Lymphocytes # (Auto) 1.1 x10^3/uL (1.0-4.8) Monocytes # (Auto) 0.8 x10^3/uL (0.0-1.1) Eosinophils # (Auto) 0.1 x10^3/uL (0.0-0.7) Basophils # (Auto) 0.1 x10^3/uL (0.0-0.2) Prothrombin Time 16.9 SEC (11.7-14.0) Prothromb Time International Ratio 1.5 (0.8-1.1) Sodium Level 137 mmol/L (136-145) Potassium Level 4.1 mmol/L (3.5-5.1) Chloride Level 96 mmol/L (98-107) Carbon Dioxide Level 36 mmol/L (21-32) Anion Gap 5 (6-14) Blood Urea Nitrogen 50 mg/dL (8-26) Creatinine 8.6 mg/dL (0.7-1.3) Estimated GFR (Cockcroft-Gault) 8.0 Glucose Level 154 mg/dL (70-99) Calcium Level 8.6 mg/dL (8.5-10.1) Phosphorus Level 4.4 mg/dL (2.6-4.7) Albumin 2.4 g/dL (3.4-5.0) Test 04/03/17 21:04 04/04/17 05:00 04/04/17 07:45 04/04/17 10:54 Glucose (Fingerstick) 140 mg/dL (70-99) 107 mg/dL (70-99) 106 mg/dL (70-99) Prothrombin Time 21.3 SEC (11.7-14.0) Prothromb Time International Ratio 2.0 (0.8-1.1) Sodium Level 139 mmol/L (136-145) Potassium Level 4.5 mmol/L (3.5-5.1) Chloride Level 102 mmol/L (98-107) Carbon Dioxide Level 32 mmol/L (21-32) Anion Gap 5 (6-14) Blood Urea Nitrogen 29 mg/dL (8-26) Creatinine 6.2 mg/dL (0.7-1.3) Estimated GFR (Cockcroft-Gault) 11.6 Glucose Level 92 mg/dL (70-99) Calcium Level 8.6 mg/dL (8.5-10.1) Phosphorus Level 3.4 mg/dL (2.6-4.7) Albumin 2.2 g/dL (3.4-5.0) Laboratory Tests Test 04/03/17 21:04 04/04/17 05:00 04/04/17 07:45 04/04/17 10:54 Glucose (Fingerstick) 140 mg/dL (70-99) 107 mg/dL (70-99) 106 mg/dL (70-99) Prothrombin Time 21.3 SEC (11.7-14.0) Prothromb Time International Ratio 2.0 (0.8-1.1) Sodium Level 139 mmol/L (136-145) Potassium Level 4.5 mmol/L (3.5-5.1) Chloride Level 102 mmol/L (98-107) Carbon Dioxide Level 32 mmol/L (21-32) Anion Gap 5 (6-14) Blood Urea Nitrogen 29 mg/dL (8-26) Creatinine 6.2 mg/dL (0.7-1.3) Estimated GFR (Cockcroft-Gault) 11.6 Glucose Level 92 mg/dL (70-99) Calcium Level 8.6 mg/dL (8.5-10.1) Phosphorus Level 3.4 mg/dL (2.6-4.7) Albumin 2.2 g/dL (3.4-5.0) Microbiology 03/31/17 Blood Culture - Preliminary, Resulted NO GROWTH AFTER 4 DAYS 03/30/17 Gram Stain - Final, Complete Medications Current Medications Morphine Sulfate 4 mg 1X ONCE IV Last administered on 03/27/17t 10:11; Start 03/27/17 at 10:00; Stop 03/27/17 at 10:05; Status DC Morphine Sulfate 4 mg PRN Q4HRS PRN IV PAIN Last administered on 04/03/17 20: 24; Start 03/27/17 at 13:30 Ondansetron HCl (Zofran) 4 mg PRN Q6HRS PRN IV NAUSEA/VOMITING; Start 03/27/17 at 15:15; Status Cancel Acetaminophen/ Hydrocodone Bitart (Lortab 10/325) 1 tab PRN Q6HRS PRN PO PAIN Last administered on 03/31/17 13:40; Start 03/27/17 at 15:15 Acetaminophen (Tylenol) 500 mg PRN Q6HRS PRN PO MILD PAIN / TEMP Last administered on 03/30/17 21:31; Start 03/27/17 at 15:15 Alprazolam (Xanax) 0.25 mg QID PRN PO ANXIETY / AGITATION; Start 03/27/17 at 15 :30 Calcium Carbonate/ Glycine (Oscal) 500 mg TIDWMEALS PO Last administered on 16:45; Start 03/27/17 at 17:00 Citalopram Hydrobromide (CeleXA) 20 mg DAILY PO Last administered on 04/02/17 08:57; Start 03/28/17 at 09:00 Clopidogrel Bisulfate (Plavix) 75 mg DAILY07 PO Last administered on 04/03/17 05:53; Start 03/28/17 at 07:00 Darbepoetin Jace (Aranesp) 100 mcg WEEKLY SQ ; Start 04/03/17 at 09:00; Status UNV Dexamethasone (Maxidex) 1 drop TID OS ; Start 03/27/17 at 21:00; Status Cancel Diclofenac Sodium (Voltaren) 1 ayaz BID TP ; Start 03/27/17 at 21:00 Ergocalciferol (Vitamin D2) 50,000 unit WEEKLY PO ; Start 04/03/17 at 09:00 Famotidine (Pepcid) 20 mg HS PO Last administered on 04/03/17 20:34; Start at 21:00 Vitamin B Complex/ Vitamin C (Fernanda-Jimmy) 1 tab DAILY PO Last administered on 08:57; Start 03/28/17 at 09:00 Isosorbide Mononitrate (Imdur) 30 mg DAILY PO Last administered on 04/02/17 08 :56; Start 03/28/17 at 09:00 Ketorolac Tromethamine (Acular) 1 drop BID OS ; Start 03/27/17 at 21:00; Status Cancel Levetiracetam (Keppra) 500 mg BID PO Last administered on 04/04/17 09:00; Start 03/27/17 at 21:00 Levothyroxine Sodium (Synthroid) 175 mcg DAILY07 PO Last administered on 05:54; Start 03/28/17 at 07:00 Lidocaine (Lidoderm) 1 patch DAILY TD ; Start 03/28/17 at 09:00; Stop 03/30/17 at 11:00; Status DC Meclizine HCl (Antivert) 12.5 mg TID PO Last administered on 03/29/17 20:49; Start 03/27/17 at 21:00; Stop 03/30/17 at 11:01; Status DC Metoprolol Tartrate (Lopressor) 50 mg BID PO Last administered on 04/04/17 09: 00; Start 03/27/17 at 21:00 Nitroglycerin (Nitrostat) 0.4 mg PRN Q5MIN PRN SL CHEST PAIN; Start 03/27/17 at 15:30 Ropinirole HCl (Requip) 0.25 mg QHS PO Last administered on 04/03/17 20:19; Start 03/27/17 at 21:00 Sevelamer Carbonate (Renvela) 2,400 mg TIDWMEALS PO Last administered on 16:45; Start 03/27/17 at 17:00 Sodium Bicarbonate (Sodium Bicarbonate) 1,300 mg BID PO Last administered on 20:20; Start 03/27/17 at 21:00 Sucralfate (Carafate) 1 gm BID PO Last administered on 04/03/17 20:20; Start 03/27/17 at 21:00 Trazodone HCl (Desyrel) 50 mg QHS PRN PO sleep; Start 03/27/17 at 15:30 Warfarin Sodium (Coumadin) 5 mg DAILY16 PO Last administered on 03/28/17 20:02 ; Start 03/28/17 at 16:00; Stop 03/29/17 at 14:22; Status DC Zolpidem Tartrate (Ambien) 5 mg HS PRN PO sleep Last administered on 04/03/17 20:20; Start 03/27/17 at 15:30 Non-Formulary Medication 1 puff Q6HRS PRN INH SHORTNESS OF BREATH; Start at 15:30; Status UNV Atorvastatin Calcium (Lipitor) 80 mg QHS PO Last administered on 04/03/17 20: 34; Start 03/27/17 at 21:00 Non-Formulary Medication 5 ml DAILY LEFTEYE ; Start 03/28/17 at 09:00; Status UNV Non-Formulary Medication 1 drop Q1HR OS ; Start 03/27/17 at 16:00; Status UNV Risperidone (RisperDAL) 0.5 mg QHS PO Last administered on 04/03/17 20:19; Start 03/27/17 at 21:00 Albuterol Sulfate (Ventolin Neb Soln) 2.5 mg PRN Q6HRS PRN NEB SHORTNESS OF BREATH Last administered on 03/27/17 19:49; Start 03/27/17 at 16:00 Warfarin Sodium (Coumadin Per Physician) 1 each PRN DAILY PRN MC SEE COMMENTS Last administered on 03/28/17 14:54; Start 03/27/17 at 16:15; Stop 03/29/17 at 14:02; Status DC Vancomycin HCl (Vanco Per Pharmacy) 1 each PRN DAILY PRN MC SEE COMMENTS Last administered on 03/30/17 18:59; Start 03/28/17 at 08:15; Stop 03/31/17 at 11:34 ; Status DC Linezolid (Zyvox) 600 mg ONCE ONCE PO Last administered on 03/28/17 08:53; Start 03/28/17 at 08:15; Stop 03/28/17 at 08:21; Status DC Meropenem 1 gm/ Sodium Chloride 100 ml @ 200 mls/hr DAILY IV ; Start 03/28/17 at 08:30; Stop 03/28/17 at 08:30; Status DC Gentamicin Sulfate 1 each ONCE ONCE MC ; Start 03/28/17 at 08:15; Stop at 08:33; Status DC Meropenem 1 gm/ Sodium Chloride 100 ml @ 200 mls/hr DAILY IV Last administered on 04/02/17 08:58; Start 03/28/17 at 08:30; Stop 04/03/17 at 09:42 ; Status DC Micafungin Sodium 100 mg/Dextrose 100 ml @ 100 mls/hr Q24H IV Last administered on 04/02/17 13:23; Start 03/28/17 at 10:00; Stop 04/03/17 at 09:42 ; Status DC Vancomycin HCl 2 gm/Sodium Chloride 500 ml @ 250 mls/hr ONCE ONCE IV Last administered on 03/28/17 11:20; Start 03/28/17 at 09:00; Stop 03/28/17 at 10:59 ; Status DC Gentamicin Sulfate 280 mg/ Sodium Chloride 107 ml @ 107 mls/hr ONCE ONCE IV Last administered on 03/28/17 09:00; Start 03/28/17 at 09:00; Stop 03/28/17 at 09:59; Status DC Magnesium Sulfate/ Dextrose 50 ml @ 25 mls/hr PRN DAILY PRN IV for Mag < 1.7 on am labs; Start 03/28/17 at 13:30 Sodium Chloride 1,000 ml @ 1,000 mls/hr Q1H PRN IV hypotension; Start 03/28/17 at 13:15; Stop 03/28/17 at 19:14; Status DC Albumin Human 200 ml @ 200 mls/hr 1X PRN PRN IV Hypotension; Start 03/28/17 at 13:15; Stop 03/28/17 at 19:14; Status DC Acetaminophen (Tylenol) 500 mg 1X PRN PRN PO MILD PAIN / TEMP; Start 03/28/17 at 13:15; Stop 03/29/17 at 13:14; Status DC Diphenhydramine HCl (Benadryl) 25 mg 1X PRN PRN IV ITCHING; Start 03/28/17 at 13:15; Stop 03/29/17 at 13:14; Status DC Labetalol HCl (Normodyne) 10 mg PRN Q1HR PRN IVP SBP > 180; Start 03/28/17 at 13:15; Stop 03/29/17 at 13:14; Status DC Clonidine HCl (Catapres) 0.1 mg 1X PRN PRN PO SBP > 180; Start 03/28/17 at 13: 15; Stop 03/29/17 at 13:14; Status DC Info (PHARMACY MONITORING -- do not chart) 1 each PRN DAILY PRN MC SEE COMMENTS ; Start 03/28/17 at 13:15 Lidocaine HCl 20 ml ONCE ONCE IJ Last administered on 03/28/17 13:45; Start 03/28/17 at 13:45; Stop 03/28/17 at 13:46; Status DC Warfarin Sodium (Coumadin) 7.5 mg 1X WARF ONCE PO ; Start 03/28/17 at 16:00; Stop 03/28/17 at 16:01; Status Cancel Vancomycin HCl 1 each 1X ONCE MC Last administered on 03/29/17 06:00; Start 03/29/17 at 06:00; Stop 03/29/17 at 06:01; Status DC Chlorhexidine Gluconate (Peridex) 15 ml BID SWSP Last administered on 20:39; Start 03/29/17 at 09:30 Warfarin Sodium (Coumadin Per Pharmacy) 1 each PRN DAILY PRN MC SEE COMMENTS Last administered on 04/02/17 12:29; Start 03/29/17 at 14:00 Warfarin Sodium (Coumadin) 7.5 mg 1X WARF ONCE PO ; Start 03/29/17 at 16:00; Stop 03/29/17 at 16:01; Status DC Vancomycin HCl 750 mg/Sodium Chloride 100 ml @ 100 mls/hr QTUTHSA IV Last administered on 03/29/17 17:30; Start 03/29/17 at 16:00; Stop 03/31/17 at 11:32 ; Status DC Sodium Chloride 1,000 ml @ 1,000 mls/hr Q1H PRN IV hypotension; Start 03/29/17 at 15:11; Stop 03/29/17 at 21:10; Status DC Sodium Chloride 1,000 ml @ 400 mls/hr Q2H30M PRN IV PATENCY; Start 03/29/17 at 15:11; Stop 03/30/17 at 03:10; Status DC Info (PHARMACY MONITORING -- do not chart) 1 each PRN DAILY PRN MC SEE COMMENTS ; Start 03/29/17 at 15:15; Status UNV Info (PHARMACY MONITORING -- do not chart) 1 each PRN DAILY PRN MC SEE COMMENTS ; Start 03/29/17 at 15:15; Status UNV Ondansetron HCl (Zofran) 4 mg PRN Q6HRS PRN IV NAUSEA/VOMITING; Start 03/30/17 at 07:00; Stop 03/31/17 at 06:59; Status DC Fentanyl Citrate (Fentanyl 2ml Vial) 25 mcg PRN Q5MIN PRN IV MILD PAIN; Start 03/30/17 at 07:00; Stop 03/31/17 at 06:59; Status DC Fentanyl Citrate (Fentanyl 2ml Vial) 50 mcg PRN Q5MIN PRN IV MODERATE PAIN; Start 03/30/17 at 07:00; Stop 03/31/17 at 06:59; Status DC Morphine Sulfate 1 mg PRN Q10MIN PRN IV SEVERE PAIN; Start 03/30/17 at 07:00; Stop 03/31/17 at 06:59; Status DC Ringer's Solution 1,000 ml @ 0 mls/hr Q0M IV ; Start 03/30/17 at 07:00; Stop at 18:59; Status Cancel Lidocaine HCl 2 ml PRN 1X PRN ID PRIOR TO IV START; Start 03/30/17 at 07:00; Stop 03/31/17 at 06:59; Status DC Hydromorphone HCl (Dilaudid) 0.5 mg PRN Q10MIN PRN IV SEV PAIN, Second choice; Start 03/30/17 at 07:00; Stop 03/31/17 at 06:59; Status DC Prochlorperazine Edisylate (Compazine) 5 mg PACU PRN PRN IV NAUSEA, MRX1; Start 03/30/17 at 07:00; Stop 03/31/17 at 06:59; Status DC Bupivacaine HCl/ Epinephrine Bitart (Sensorcain-Mpf Epi 0.5%-1:142026) 30 ml STK -MED ONCE .ROUTE ; Start 03/30/17 at 07:41; Stop 03/30/17 at 07:42; Status DC Sodium Chloride 1,000 ml @ 0 mls/hr Q0M IV Last administered on 03/30/17t 16: 27; Start 03/30/17 at 10:00; Stop 03/31/17 at 07:48; Status DC Warfarin Sodium (Coumadin) 7.5 mg 1X WARF ONCE PO Last administered on t 21:12; Start 03/30/17 at 16:00; Stop 03/30/17 at 16:01; Status DC Sodium Chloride 1,000 ml @ 30 mls/hr Q24H IV ; Start 03/30/17 at 16:30; Stop at 07:48; Status DC Dexamethasone Sodium Phosphate (Decadron) 20 mg STK-MED ONCE .ROUTE ; Start at 16:32; Stop 03/30/17 at 16:33; Status DC Ondansetron HCl (Zofran) 4 mg STK-MED ONCE .ROUTE ; Start 03/30/17 at 16:32; Stop 03/30/17 at 16:33; Status DC Propofol 20 ml @ As Directed STK-MED ONCE IV ; Start 03/30/17 at 16:32; Stop at 16:33; Status DC Lidocaine HCl (Lidocaine Pf 2% Vial) 5 ml STK-MED ONCE .ROUTE ; Start 03/30/17 at 16:32; Stop 03/30/17 at 16:33; Status DC Midazolam HCl (Versed) 2 mg STK-MED ONCE .ROUTE ; Start 03/30/17 at 16:32; Stop 03/30/17 at 16:33; Status DC Phenylephrine HCl 1 mg STK-MED ONCE IV ; Start 03/30/17 at 16:48; Stop 03/30/17 at 16:49; Status DC Fentanyl Citrate (Fentanyl 2ml Vial) 100 mcg STK-MED ONCE .ROUTE ; Start at 16:52; Stop 03/30/17 at 16:53; Status DC Sevoflurane (Ultane) 60 ml STK-MED ONCE IH ; Start 03/30/17 at 17:20; Stop 03/30 at 17:21; Status DC Polyethylene Glycol (miraLAX PACKET) 17 gm PRN DAILY PRN PO CONSTIPATION; Start 03/30/17 at 17:30 Ondansetron HCl (Zofran) 4 mg PRN Q4HRS PRN IV NAUSEA/VOMITING Last administered on 04/03/17t 17:33; Start 03/30/17 at 17:30 Dextrose (Dextrose 50%-Water Syringe) 12.5 gm PRN Q15MIN PRN IV SEE COMMENTS; Start 03/30/17 at 17:30 Sevoflurane (Ultane) 30 ml STK-MED ONCE IH ; Start 03/30/17 at 17:46; Stop 03/30 at 17:47; Status DC Sodium Chloride 1,000 ml @ 1,000 mls/hr Q1H PRN IV hypotension; Start 03/31/17 at 07:32; Stop 03/31/17 at 15:00; Status DC Albumin Human 200 ml @ 200 mls/hr 1X PRN PRN IV Hypotension; Start 03/31/17 at 07:45; Stop 03/31/17 at 15:00; Status DC Sodium Chloride 1,000 ml @ 400 mls/hr Q2H30M PRN IV PATENCY; Start 03/31/17 at 07:32; Stop 03/31/17 at 15:00; Status DC Info (PHARMACY MONITORING -- do not chart) 1 each PRN DAILY PRN MC SEE COMMENTS ; Start 03/31/17 at 07:45; Status UNV Lidocaine HCl (Xylocaine-Mpf 1% Vial) 2 ml 1X STAT INJ Last administered on 08:14; Start 03/31/17 at 08:14; Stop 03/31/17 at 08:15; Status DC Warfarin Sodium (Coumadin) 7.5 mg 1X WARF ONCE PO Last administered on 16:44; Start 03/31/17 at 16:00; Stop 03/31/17 at 16:01; Status DC Codeine Sulfate (Codeine) 15 mg PRN Q6HRS PRN PO cough Last administered on 22:32; Start 03/31/17 at 19:15 Codeine Sulfate (Codeine) 30 mg PRN Q6HRS PRN PO cough Last administered on 16:48; Start 03/31/17 at 19:15 Darbepoetin Jace (Aranesp) 100 mcg Freeman@2100 SQ Last administered on 04/01/17 20 :54; Start 04/01/17 at 21:00 Warfarin Sodium (Coumadin) 10 mg 1X WARF ONCE PO Last administered on 16:48; Start 04/01/17 at 16:00; Stop 04/01/17 at 16:01; Status DC Warfarin Sodium (Coumadin) 10 mg 1X WARF ONCE PO Last administered on 16:45; Start 04/02/17 at 16:00; Stop 04/02/17 at 16:01; Status DC Sodium Chloride 1,000 ml @ 1,000 mls/hr Q1H PRN IV hypotension; Start 04/03/17 at 08:54; Stop 04/03/17 at 14:53; Status DC Sodium Chloride 1,000 ml @ 400 mls/hr Q2H30M PRN IV PATENCY; Start 04/03/17 at 08:54; Stop 04/03/17 at 20:53; Status DC Info (PHARMACY MONITORING -- do not chart) 1 each PRN DAILY PRN MC SEE COMMENTS ; Start 04/03/17 at 09:00; Status UNV Info (PHARMACY MONITORING -- do not chart) 1 each PRN DAILY PRN MC SEE COMMENTS ; Start 04/03/17 at 09:00; Status UNV Cefazolin Sodium 1 gm/Sodium Chloride 50 ml @ 100 mls/hr DAILY IV Last administered on 04/04/17t 09:00; Start 04/03/17 at 10:00 Warfarin Sodium (Coumadin) 10 mg 1X WARF ONCE PO ; Start 04/03/17 at 16:00; Stop 04/03/17 at 16:01; Status DC Lidocaine HCl (Xylocaine-Mpf 1% Vial) 2 ml 1X PRN PRN ID FOR PIC LINE INSERTION ; Start 04/03/17 at 14:30; Stop 04/04/17 at 14:29 Sodium Chloride (Normal Saline Flush) 20 ml 1X PRN PRN IV PER PROTOCOL; Start 04/03/17 at 14:30; Stop 04/03/17 at 18:00; Status DC Lidocaine/ Prilocaine (Emla) 1 ayaz 1X ONCE TP ; Start 04/03/17 at 14:30; Stop 04/03/17 at 14:31; Status DC Sodium Chloride (Normal Saline Flush) 10 ml QSHIFT PRN IV AFTER MEDS AND BLOOD DRAWS; Start 04/03/17 at 18:00 Sodium Chloride (Normal Saline Flush) 20 ml QSHIFT PRN IV AFTER MEDS AND BLOOD DRAWS; Start 04/03/17 at 18:00 Ondansetron HCl (Zofran) 4 mg PRN Q6HRS PRN IV NAUSEA/VOMITING; Start 04/04/17 at 07:15; Stop 04/05/17 at 07:14 Fentanyl Citrate (Fentanyl 2ml Vial) 25 mcg PRN Q5MIN PRN IV MILD PAIN; Start 04/04/17 at 07:15; Stop 04/05/17 at 07:14 Fentanyl Citrate (Fentanyl 2ml Vial) 50 mcg PRN Q5MIN PRN IV MODERATE PAIN; Start 04/04/17 at 07:15; Stop 04/05/17 at 07:14 Morphine Sulfate 1 mg PRN Q10MIN PRN IV SEVERE PAIN; Start 04/04/17 at 07:15; Stop 04/05/17 at 07:14 Ringer's Solution 1,000 ml @ 30 mls/hr Q24H IV ; Start 04/04/17 at 07:13; Stop 04/04/17 at 19:12 Lidocaine HCl 2 ml PRN 1X PRN ID PRIOR TO IV START; Start 04/04/17 at 07:15; Stop 04/05/17 at 07:14 Hydromorphone HCl (Dilaudid) 0.5 mg PRN Q10MIN PRN IV SEV PAIN, Second choice; Start 04/04/17 at 07:15; Stop 04/05/17 at 07:14 Prochlorperazine Edisylate (Compazine) 5 mg PACU PRN PRN IV NAUSEA, MRX1; Start 04/04/17 at 07:15; Stop 04/05/17 at 07:14 Active Scripts Active Levetiracetam 500 Mg Tablet 500 Mg PO BID Lidoderm (Lidocaine) 700 Mg Adh..patch 1 Patch TD DAILY Metoprolol Tartrate 50 Mg Tablet 50 Mg PO BID Synthroid (Levothyroxine Sodium) 175 Mcg Tablet 175 Mcg PO DAILY07 Isosorbide Mononitrate Er (Isosorbide Mononitrate) 30 Mg Tab.er.24h 30 Mg PO DAILY Reported Sodium Bicarbonate 650 Mg Tablet 2 Tab PO BID on dialysis days sunday, and sunday Meclizine Hcl 12.5 Mg Tablet 1 Tab PO TID Calcium Carbonate 500 Mg Tablet 500 Mg PO TIDWMEALS Ambien (Zolpidem Tartrate) 5 Mg Tablet 5 Mg PO HS PRN Alprazolam 0.25 Mg Tablet 1 Tab PO PRN Ventolin Hfa Inhaler (Albuterol Sulfate) 18 Gm Hfa.aer.ad 1 Puff INH Q6HRS PRN Ropinirole Hcl 0.25 Mg Tablet 0.25 Mg PO Citalopram Hbr (Citalopram Hydrobromide) 20 Mg Tablet 1 Tab PO DAILY Trazodone Hcl 50 Mg Tablet 0.5-1 Tab PO QHS Risperidone 0.5 Mg Tablet 1 Tab PO QHS Famotidine 20 Mg Tablet 20 Mg PO HS Coumadin (Warfarin Sodium) 5 Mg Tablet 1 Tab PO DAILY Nephro-Jimmy Tablet (Folic Acid/Vitamin B Comp W-C) 0.8 Mg Tablet 1 Tab PO DAILY Carafate (Sucralfate) 1 Gm Tablet 1 Tab PO BID Nitrostat (Nitroglycerin) 0.4 Mg Tab.subl 0.4 Mg SL PRN Q5MIN PRN Voltaren (Diclofenac Sodium) 100 Gm Gel..gram. 1 Gm TP BID Clopidogrel (Clopidogrel Bisulfate) 75 Mg Tablet 75 Mg PO DAILY07 Renvela (Sevelamer Carbonate) 800 Mg Tablet 2,400 Tab PO TIDWMEALS Vitamin D2 (Ergocalciferol (Vitamin D2)) 50,000 Unit Capsule 50,000 Unit PO WEEKLY weekly on Sunday Atorvastatin Calcium 80 Mg Tablet 80 Mg PO HS Vitals/I & O Vital Sign - Last 24 Hours 04/03/17 04/03/17 04/03/17 04/03/17 15:02 19:00 20:00 20:24 Temp 98.2 98.1 98.2 98.1 Pulse 78 84 Resp 18 18 B/P (MAP) 117/70 (86) 146/80 (102) Pulse Ox 100 98 O2 Delivery Room Air Room Air Room Air Room Air 04/03/17 04/03/17 04/03/17 04/04/17 20:39 20:54 23:00 03:00 Temp 98.7 98.6 98.7 98.6 Pulse 84 64 78 Resp 18 18 B/P (MAP) 146/80 106/46 (66) 152/78 (102) Pulse Ox 98 93 O2 Delivery Room Air Room Air Room Air 04/04/17 04/04/17 04/04/17 04/04/17 07:30 08:00 09:00 11:01 Temp 97.9 97.9 97.9 97.9 Pulse 72 72 67 Resp 19 18 B/P (MAP) 122/63 (82) 122/63 124/69 (87) Pulse Ox 97 97 O2 Delivery Room Air Room Air Room Air Intake and Output 04/03/17 04/03/17 04/04/17 15:00 23:00 07:00 Intake Total 600 ml 150 ml Output Total 301 ml 0 ml Balance 299 ml 150 ml CASTLE,NIAL K III DO Apr 04, 2017 12:30
[2017-04-04] MEDS ORDERED: IV NORMAL SALINE 500ML BAG 500 ML IV ONE (14:00)
[2017-04-04] MEDS ORDERED: fentaNYL PF VIAL 100 MCG/2 ML VIAL ONE ×2 (14:29→17:01)
[2017-04-04] MEDS ORDERED: LIDOCAINE 2% PF Vial for OR 5 ML VIAL. ONE (14:56)
[2017-04-04] MEDS ORDERED: PROPOFOL 20 ML IV ONE (14:56)
[2017-04-04] MEDS ORDERED: DEXAMETHASONE SOD PHOS 20 MG/5 ML VIAL. ONE (14:56)
[2017-04-04] MEDS ORDERED: ONDANSETRON PF 4 MG/2 ML VIAL. ONE (14:56)
[2017-04-04] MEDS ORDERED: ePHEDrine PF IN SALINE 50 MG/5 ML DISP.SYRIN IV ONE (14:57)
[2017-04-04] MEDS ORDERED: SEVOFLURANE 31 TO 60 MINUTES. IH ONE (15:01)
[2017-04-04] MEDS ORDERED: TRANEXAMIC ACID 1,000 MG in IV NORMAL SALINE 50ML 50 ML INJ ONE (15:45)
[2017-04-04] MEDS ORDERED: SEVOFLURANE 61 TO 120 MINUTES. IH ONE (15:47)
[2017-04-04] MEDS ORDERED: WARFARIN 7.5 MG TABLET. PO ONE (16:00)
[2017-04-04] MEDS ORDERED: HYDROcodone/APAP 7.5/325MG 1 TAB TABLET PO PRN ×2 (16:30)
[2017-04-04] MEDS ORDERED: POLYETHYLENE GLYCOL 3350 17 GM PACKET. PO PRN (16:30)
[2017-04-04] MEDS ORDERED: DEXTROSE 50% 25 GM / 50ML DISP.SYRIN. IV PRN (16:30)
[2017-04-04] MEDS: fentaNYL PF VIAL 100 MCG/2 ML VIAL IV PRN ×2 (17:06→17:20)
[2017-04-04] MEDS: CITALOPRAM 20 MG TABLET. PO SCH (18:44)
[2017-04-04] MEDS: ATORVASTATIN CALCIUM 40 MG TABLET. PO SCH (21:04)
[2017-04-04] MEDS: FAMOTIDINE 20 MG TABLET. PO SCH (21:04)
[2017-04-04] MEDS: rOPINIRole 0.25 MG TABLET. PO SCH (21:04)
[2017-04-04] MEDS: risperiDONE 0.25 MG TABLET. PO SCH (21:04)
[2017-04-04] MEDS: ZOLPIDEM 5 MG TABLET. PO PRN (21:10)
[2017-04-05 03:34] VITALS: BP 126/62
[2017-04-05] MEDS: LEVOTHYROXINE 175 MCG TABLET PO SCH (05:39)
[2017-04-05] MEDS: CLOPIDOGREL BISULFATE 75 MG TABLET PO SCH (05:39)
[2017-04-05 06:00] LABS: HEMATOCRIT 28.3 % (39.0-53.0); HEMOGLOBIN 9.2 g/dL (13.0-17.5); RED BLOOD COUNT 3.04 x10^6/uL (4.30-5.70); RED CELL DISTRIBUTION WIDTH 15.8 % (11.5-14.5); WHITE BLOOD COUNT 8.8 x10^3/uL (4.0-11.0)
[2017-04-05] MEDS ORDERED: MAGNESIUM HYDROXIDE 2,400 MG/30 ML ORAL.SUSP. PO PRN (06:00)
[2017-04-05 06:08] LABS: INR 2.6 (0.8-1.1); PROTHROMBIN TIME PATIENT 26.5 SEC (11.7-14.0)
[2017-04-05 06:25] LABS: CALCIUM 8.3 mg/dL (8.5-10.1); CREATININE 7.2 mg/dL (0.7-1.3); GFR 9.8; POTASSIUM 4.5 mmol/L (3.5-5.1)
[2017-04-05 07:19] VITALS: BP 137/62
[2017-04-05] MEDS: CALCIUM CARBONATE 500 MG TABLET PO SCH ×2 (08:23→12:00)
[2017-04-05] MEDS: SODIUM BICARBONATE 650 MG TABLET. PO SCH (08:23)
[2017-04-05] MEDS: FOLIC/VIT B COMP W-C (RENAL) TABLET. PO SCH (08:24)
[2017-04-05] MEDS: SEVELAMER CARBONATE 800 MG TABLET. PO SCH ×2 (08:24→12:00)
[2017-04-05] MEDS: METOPROLOL TART IMMED RELEASE 50 MG TABLET. PO SCH (08:25)
[2017-04-05] MEDS: SUCRALFATE 1 GM TABLET. PO SCH (08:25)
[2017-04-05] MEDS: levETIRAcetam 500 MG TABLET PO SCH (08:25)
[2017-04-05] MEDS: ISOSORBIDE MONONITRATE ER 30 MG TAB.ER.24H PO SCH (08:26)
[2017-04-05] MEDS: CITALOPRAM 20 MG TABLET. PO SCH (08:26)
[2017-04-05] MEDS: DICLOFENAC SODIUM 1% TOPICAL GEL 100GM TUBE. TP SCH (08:33)
[2017-04-05] MEDS: CHLORHEXIDINE 0.12% 15 ML MOUTHWASH. SWSP SCH (08:33)
[2017-04-05] MEDS ORDERED: SENNOSIDES/DOCUSATE 8.6/50MG TABLET. PO SCH (09:00)
[2017-04-05] MEDS ORDERED: LIDOCAINE 1% PF 2 ML VIAL. ONE (09:09)
--- NOTE | 2017-04-05 09:55 | PDOC ---
Infectious Disease Note Subjective Subjective Comfortable, denies pain ROS ROS GEN: Denies fevers, chills, sweats HEENT: Denies blurred vision, sore throat CV: Denies chest pain RESP: Denies shortness of air, cough GI: Denies n/v/d NEURO: Denies confusion, dizziness MSK: Denies weakness, joint pain/swelling Vital Sign Vital Signs Vital Signs Date Time Temp Pulse Resp B/P (MAP) Pulse Ox O2 Delivery O2 Flow Rate FiO2 04/05/17 08:26 86 137/62 04/05/17 07:19 97.9 20 98 Room Air 97.9 04/04/17 18:34 10.0 Physical Exam PHYSICAL EXAM GENERAL: NAD, Alert HEENT: PERRL, OC/OP NECK: Supple, no JVD, no LN LUNGS: Clear HEART: S1S2, no gallop, no murmur ABD: Soft, NT, no organomegaly, no rebound EXT: No edema, no cyanosis,, foot wound has been closed, RONIT still in place [employer]PERATION: Alert, oriented x 3, no focal neurologic deficit SKIN: No rash IV: ok Labs Lab Laboratory Tests Test 04/04/17 10:54 04/04/17 16:32 04/04/17 20:55 04/05/17 05:40 Glucose (Fingerstick) 106 mg/dL (70-99) 97 mg/dL (70-99) 133 mg/dL (70-99) White Blood Count 8.8 x10^3/uL (4.0-11.0) Red Blood Count 3.04 x10^6/uL (4.30-5.70) Hemoglobin 9.2 g/dL (13.0-17.5) Hematocrit 28.3 % (39.0-53.0) Mean Corpuscular Volume 93 fL (79-100) Mean Corpuscular Hemoglobin 30 pg (25-35) Mean Corpuscular Hemoglobin Concent 32 g/dL (31-37) Red Cell Distribution Width 15.8 % (11.5-14.5) Platelet Count 276 x10^3/uL (140-400) Prothrombin Time 26.5 SEC (11.7-14.0) Prothromb Time International Ratio 2.6 (0.8-1.1) Sodium Level 138 mmol/L (136-145) Potassium Level 4.5 mmol/L (3.5-5.1) Chloride Level 101 mmol/L (98-107) Carbon Dioxide Level 27 mmol/L (21-32) Anion Gap 10 (6-14) Blood Urea Nitrogen 41 mg/dL (8-26) Creatinine 7.2 mg/dL (0.7-1.3) Estimated GFR (Cockcroft-Gault) 9.8 Glucose Level 113 mg/dL (70-99) Calcium Level 8.3 mg/dL (8.5-10.1) Test 04/05/17 07:18 Glucose (Fingerstick) 133 mg/dL (70-99) Objective Assessment Staph aureus Sepsis - POA - MSSA. Left foot infected wound s/p I and D mssa Tongue bacterial overgrowth Fever - persists ? sepsis vs foot Zosyn/pcn allergy - has tolerated Cefepime CKD Plan Plan of Care cefazolin Monitor labs f/u cultures ok to d/c on cefazolin f/u with us in 2 wks wkly cbc, sed rate CONCETTA LIANG MD Apr 05, 2017 09:55
--- NOTE | 2017-04-05 10:14 | PDOC ---
Renal-Progress Notes Subjective Notes Notes FEELING OK History of Present Illness Hx of present illness BETTER Vitals Vitals Vital Signs Date Time Temp Pulse Resp B/P (MAP) Pulse Ox O2 Delivery O2 Flow Rate FiO2 04/05/17 08:26 86 137/62 04/05/17 07:19 97.9 20 98 Room Air 97.9 04/04/17 18:34 10.0 Weight Weight [ ] I.O. Intake and Output Intake and Output 04/05/17 07:00 Intake Total 180 ml Output Total 200 ml Balance -20 ml Intake Oral 180 ml Output Urine Total 200 ml # Voids 1 Labs Labs Laboratory Tests Test 04/04/17 10:54 04/04/17 16:32 04/04/17 20:55 04/05/17 05:40 Glucose (Fingerstick) 106 mg/dL (70-99) 97 mg/dL (70-99) 133 mg/dL (70-99) White Blood Count 8.8 x10^3/uL (4.0-11.0) Red Blood Count 3.04 x10^6/uL (4.30-5.70) Hemoglobin 9.2 g/dL (13.0-17.5) Hematocrit 28.3 % (39.0-53.0) Mean Corpuscular Volume 93 fL (79-100) Mean Corpuscular Hemoglobin 30 pg (25-35) Mean Corpuscular Hemoglobin Concent 32 g/dL (31-37) Red Cell Distribution Width 15.8 % (11.5-14.5) Platelet Count 276 x10^3/uL (140-400) Prothrombin Time 26.5 SEC (11.7-14.0) Prothromb Time International Ratio 2.6 (0.8-1.1) Sodium Level 138 mmol/L (136-145) Potassium Level 4.5 mmol/L (3.5-5.1) Chloride Level 101 mmol/L (98-107) Carbon Dioxide Level 27 mmol/L (21-32) Anion Gap 10 (6-14) Blood Urea Nitrogen 41 mg/dL (8-26) Creatinine 7.2 mg/dL (0.7-1.3) Estimated GFR (Cockcroft-Gault) 9.8 Glucose Level 113 mg/dL (70-99) Calcium Level 8.3 mg/dL (8.5-10.1) Test 04/05/17 07:18 Glucose (Fingerstick) 133 mg/dL (70-99) Micro Micro Microbiology 03/31/17 Blood Culture - Preliminary, Resulted NO GROWTH AFTER 4 DAYS 03/30/17 Gram Stain - Final, Complete Review of Systems Constitutional: yes: weakness Ears/Nose/Throat: Yes: no symptom reported Pulmonary: Yes no symptom reported Gastrointestional: Yes: no symptom reported, constipation Genitourinary: Yes: no symptom reported Musculoskeletal: Yes: joint pain Psychiatric/Neurological: Yes: no symptom reported Physical Exam General Appearance: no apparent distress Skin: warm Respiratory: bilateral CTA Heart: S1S2 Abdomen: soft, bowel sounds present Neurology: alert Assessment Assessment IMP ESRD ANEMIA HTN DM II L LE WOUND PLAN WOUND CARE ANTIBIOTICS HD TODAY UF TO GRACE BUSTILLOS MD Apr 05, 2017 10:14
[2017-04-05] MEDS ORDERED: IV NORMAL SALINE 1000ML BAG 1,000 ML IV PRN (10:34)
[2017-04-05] MEDS ORDERED: DIALYSIS PATIENT. MC PRN ×2 (10:45)
--- NOTE | 2017-04-05 12:02 | PDOC ---
PROGRESS NOTES Chief Complaint Chief Complaint Foot cellulitis Sepsis 1. Sepsis: 2. Foot cellulitis L 3. Bacteremia 4. ESRD 5. Anemia of CKD, 6. GERD 7. Hypothyroidism 8. CAD 9. PAF 10. Hx recurrent DVT 11. OAC 12. Chronic LBP 13. Obesity BMI 37 14: Cough History of Present Illness History of Present Illness Pt complains of L foot pain. Desires to go home. Surgery was completed yesterday 04/05/17 for sealing of wound. Dressing is CDI. No wound vac. PICC line in place. No acute overnight events Vitals Vitals Vital Signs Date Time Temp Pulse Resp B/P (MAP) Pulse Ox O2 Delivery O2 Flow Rate FiO2 04/05/17 08:26 86 137/62 04/05/17 08:00 Room Air 04/05/17 07:19 97.9 20 98 97.9 04/04/17 18:34 10.0 Physical Exam General: Alert, Oriented X3, Cooperative, No acute distress Heart: Regular rate Lungs: Clear Abdomen: Normal bowel sounds, Soft Extremities: Other (L distal foot amputation, wound vac in place) Skin: No rashes Labs LABS Laboratory Tests Test 04/04/17 16:32 04/04/17 20:55 04/05/17 05:40 04/05/17 07:18 Glucose (Fingerstick) 97 mg/dL (70-99) 133 mg/dL (70-99) 133 mg/dL (70-99) White Blood Count 8.8 x10^3/uL (4.0-11.0) Red Blood Count 3.04 x10^6/uL (4.30-5.70) Hemoglobin 9.2 g/dL (13.0-17.5) Hematocrit 28.3 % (39.0-53.0) Mean Corpuscular Volume 93 fL (79-100) Mean Corpuscular Hemoglobin 30 pg (25-35) Mean Corpuscular Hemoglobin Concent 32 g/dL (31-37) Red Cell Distribution Width 15.8 % (11.5-14.5) Platelet Count 276 x10^3/uL (140-400) Prothrombin Time 26.5 SEC (11.7-14.0) Prothromb Time International Ratio 2.6 (0.8-1.1) Sodium Level 138 mmol/L (136-145) Potassium Level 4.5 mmol/L (3.5-5.1) Chloride Level 101 mmol/L (98-107) Carbon Dioxide Level 27 mmol/L (21-32) Anion Gap 10 (6-14) Blood Urea Nitrogen 41 mg/dL (8-26) Creatinine 7.2 mg/dL (0.7-1.3) Estimated GFR (Cockcroft-Gault) 9.8 Glucose Level 113 mg/dL (70-99) Calcium Level 8.3 mg/dL (8.5-10.1) Review of Systems Review of Systems Complains of L foot pain Acute infxn is resolving Assessment and Plan Assessmemt and Plan Problems Medical Problems: (1) End stage renal disease Status: Acute (2) Fever Status: Acute 1. Sepsis: resolved 2. Foot cellulitis L: recent distal foot amputation for osteo; recurrent cellulitis. Wound is stitched and closed, continue abx per ID 3. Bacteremia: MSSA. on IV Abx as per ID. rpt blood cult on 03/31 NGTD 4. ESRD: Continue HD 5. Anemia of CKD: on EPO, iron as per nephrology 6. GERD: PPI 7. Hypothyroidism: on hormone repletion 8. CAD: no acute issues. cont home meds 9. PAF: no acute issues, rate controlled, cont home meds 10. Hx recurrent DVT 11. OAC: on warfarin, subtheraputic, pharm to follow 12. Chronic LBP 13. Obesity BMI 37 14: cough: improved with codeine Dispo: DC home today w/home health if agreeable w/Dr. White. Abx per ID, appreciate the assistance. Problems: Comment Review of Relevant I have reviewed the following items lila (where applicable) has been applied. Labs Laboratory Tests Test 04/03/17 21:04 04/04/17 05:00 04/04/17 07:45 04/04/17 10:54 Glucose (Fingerstick) 140 mg/dL (70-99) 107 mg/dL (70-99) 106 mg/dL (70-99) Prothrombin Time 21.3 SEC (11.7-14.0) Prothromb Time International Ratio 2.0 (0.8-1.1) Sodium Level 139 mmol/L (136-145) Potassium Level 4.5 mmol/L (3.5-5.1) Chloride Level 102 mmol/L (98-107) Carbon Dioxide Level 32 mmol/L (21-32) Anion Gap 5 (6-14) Blood Urea Nitrogen 29 mg/dL (8-26) Creatinine 6.2 mg/dL (0.7-1.3) Estimated GFR (Cockcroft-Gault) 11.6 Glucose Level 92 mg/dL (70-99) Calcium Level 8.6 mg/dL (8.5-10.1) Phosphorus Level 3.4 mg/dL (2.6-4.7) Albumin 2.2 g/dL (3.4-5.0) Test 04/04/17 16:32 04/04/17 20:55 04/05/17 05:40 04/05/17 07:18 Glucose (Fingerstick) 97 mg/dL (70-99) 133 mg/dL (70-99) 133 mg/dL (70-99) White Blood Count 8.8 x10^3/uL (4.0-11.0) Red Blood Count 3.04 x10^6/uL (4.30-5.70) Hemoglobin 9.2 g/dL (13.0-17.5) Hematocrit 28.3 % (39.0-53.0) Mean Corpuscular Volume 93 fL (79-100) Mean Corpuscular Hemoglobin 30 pg (25-35) Mean Corpuscular Hemoglobin Concent 32 g/dL (31-37) Red Cell Distribution Width 15.8 % (11.5-14.5) Platelet Count 276 x10^3/uL (140-400) Prothrombin Time 26.5 SEC (11.7-14.0) Prothromb Time International Ratio 2.6 (0.8-1.1) Sodium Level 138 mmol/L (136-145) Potassium Level 4.5 mmol/L (3.5-5.1) Chloride Level 101 mmol/L (98-107) Carbon Dioxide Level 27 mmol/L (21-32) Anion Gap 10 (6-14) Blood Urea Nitrogen 41 mg/dL (8-26) Creatinine 7.2 mg/dL (0.7-1.3) Estimated GFR (Cockcroft-Gault) 9.8 Glucose Level 113 mg/dL (70-99) Calcium Level 8.3 mg/dL (8.5-10.1) Laboratory Tests Test 04/04/17 16:32 04/04/17 20:55 04/05/17 05:40 04/05/17 07:18 Glucose (Fingerstick) 97 mg/dL (70-99) 133 mg/dL (70-99) 133 mg/dL (70-99) White Blood Count 8.8 x10^3/uL (4.0-11.0) Red Blood Count 3.04 x10^6/uL (4.30-5.70) Hemoglobin 9.2 g/dL (13.0-17.5) Hematocrit 28.3 % (39.0-53.0) Mean Corpuscular Volume 93 fL (79-100) Mean Corpuscular Hemoglobin 30 pg (25-35) Mean Corpuscular Hemoglobin Concent 32 g/dL (31-37) Red Cell Distribution Width 15.8 % (11.5-14.5) Platelet Count 276 x10^3/uL (140-400) Prothrombin Time 26.5 SEC (11.7-14.0) Prothromb Time International Ratio 2.6 (0.8-1.1) Sodium Level 138 mmol/L (136-145) Potassium Level 4.5 mmol/L (3.5-5.1) Chloride Level 101 mmol/L (98-107) Carbon Dioxide Level 27 mmol/L (21-32) Anion Gap 10 (6-14) Blood Urea Nitrogen 41 mg/dL (8-26) Creatinine 7.2 mg/dL (0.7-1.3) Estimated GFR (Cockcroft-Gault) 9.8 Glucose Level 113 mg/dL (70-99) Calcium Level 8.3 mg/dL (8.5-10.1) Microbiology 03/31/17 Blood Culture - Preliminary, Resulted NO GROWTH AFTER 4 DAYS 03/30/17 Gram Stain - Final, Complete Medications Current Medications Morphine Sulfate 4 mg 1X ONCE IV Last administered on 03/27/17 10:11; Start 03/27/17 at 10:00; Stop 03/27/17 at 10:05; Status DC Morphine Sulfate 4 mg PRN Q4HRS PRN IV PAIN Last administered on 04/03/17 20: 24; Start 03/27/17 at 13:30 Ondansetron HCl (Zofran) 4 mg PRN Q6HRS PRN IV NAUSEA/VOMITING; Start 03/27/17 at 15:15; Status Cancel Acetaminophen/ Hydrocodone Bitart (Lortab 10/325) 1 tab PRN Q6HRS PRN PO PAIN Last administered on 03/31/17 13:40; Start 03/27/17 at 15:15 Acetaminophen (Tylenol) 500 mg PRN Q6HRS PRN PO MILD PAIN / TEMP Last administered on 03/30/17 21:31; Start 03/27/17 at 15:15 Alprazolam (Xanax) 0.25 mg QID PRN PO ANXIETY / AGITATION; Start 03/27/17 at 15 :30 Calcium Carbonate/ Glycine (Oscal) 500 mg TIDWMEALS PO Last administered on 08:23; Start 03/27/17 at 17:00 Citalopram Hydrobromide (CeleXA) 20 mg DAILY PO Last administered on 04/05/17 08:26; Start 03/28/17 at 09:00 Clopidogrel Bisulfate (Plavix) 75 mg DAILY07 PO Last administered on 04/05/17 05:39; Start 03/28/17 at 07:00 Darbepoetin Jace (Aranesp) 100 mcg WEEKLY SQ ; Start 04/03/17 at 09:00; Status UNV Dexamethasone (Maxidex) 1 drop TID OS ; Start 03/27/17 at 21:00; Status Cancel Diclofenac Sodium (Voltaren) 1 ayaz BID TP ; Start 03/27/17 at 21:00 Ergocalciferol (Vitamin D2) 50,000 unit WEEKLY PO ; Start 04/03/17 at 09:00 Famotidine (Pepcid) 20 mg HS PO Last administered on 04/04/17 21:04; Start at 21:00 Vitamin B Complex/ Vitamin C (Fernanda-Jimmy) 1 tab DAILY PO Last administered on 08:24; Start 03/28/17 at 09:00 Isosorbide Mononitrate (Imdur) 30 mg DAILY PO Last administered on 04/05/17 08 :26; Start 03/28/17 at 09:00 Ketorolac Tromethamine (Acular) 1 drop BID OS ; Start 03/27/17 at 21:00; Status Cancel Levetiracetam (Keppra) 500 mg BID PO Last administered on 04/05/17 08:25; Start 03/27/17 at 21:00 Levothyroxine Sodium (Synthroid) 175 mcg DAILY07 PO Last administered on 05:39; Start 03/28/17 at 07:00 Lidocaine (Lidoderm) 1 patch DAILY TD ; Start 03/28/17 at 09:00; Stop 03/30/17 at 11:00; Status DC Meclizine HCl (Antivert) 12.5 mg TID PO Last administered on 03/29/17 20:49; Start 03/27/17 at 21:00; Stop 03/30/17 at 11:01; Status DC Metoprolol Tartrate (Lopressor) 50 mg BID PO Last administered on 04/05/17 08: 25; Start 03/27/17 at 21:00 Nitroglycerin (Nitrostat) 0.4 mg PRN Q5MIN PRN SL CHEST PAIN; Start 03/27/17 at 15:30 Ropinirole HCl (Requip) 0.25 mg QHS PO Last administered on 04/04/17 21:04; Start 03/27/17 at 21:00 Sevelamer Carbonate (Renvela) 2,400 mg TIDWMEALS PO Last administered on 08:24; Start 03/27/17 at 17:00 Sodium Bicarbonate (Sodium Bicarbonate) 1,300 mg BID PO Last administered on 08:23; Start 03/27/17 at 21:00 Sucralfate (Carafate) 1 gm BID PO Last administered on 04/05/17 08:25; Start 03/27/17 at 21:00 Trazodone HCl (Desyrel) 50 mg QHS PRN PO sleep; Start 03/27/17 at 15:30 Warfarin Sodium (Coumadin) 5 mg DAILY16 PO Last administered on 03/28/17 20:02 ; Start 03/28/17 at 16:00; Stop 03/29/17 at 14:22; Status DC Zolpidem Tartrate (Ambien) 5 mg HS PRN PO sleep Last administered on 04/04/17 21:10; Start 03/27/17 at 15:30 Non-Formulary Medication 1 puff Q6HRS PRN INH SHORTNESS OF BREATH; Start at 15:30; Status UNV Atorvastatin Calcium (Lipitor) 80 mg QHS PO Last administered on 04/04/17 21: 04; Start 03/27/17 at 21:00 Non-Formulary Medication 5 ml DAILY LEFTEYE ; Start 03/28/17 at 09:00; Status UNV Non-Formulary Medication 1 drop Q1HR OS ; Start 03/27/17 at 16:00; Status UNV Risperidone (RisperDAL) 0.5 mg QHS PO Last administered on 04/04/17 21:04; Start 03/27/17 at 21:00 Albuterol Sulfate (Ventolin Neb Soln) 2.5 mg PRN Q6HRS PRN NEB SHORTNESS OF BREATH Last administered on 03/27/17 19:49; Start 03/27/17 at 16:00 Warfarin Sodium (Coumadin Per Physician) 1 each PRN DAILY PRN MC SEE COMMENTS Last administered on 03/28/17 14:54; Start 03/27/17 at 16:15; Stop 03/29/17 at 14:02; Status DC Vancomycin HCl (Vanco Per Pharmacy) 1 each PRN DAILY PRN MC SEE COMMENTS Last administered on 03/30/17 18:59; Start 03/28/17 at 08:15; Stop 03/31/17 at 11:34 ; Status DC Linezolid (Zyvox) 600 mg ONCE ONCE PO Last administered on 03/28/17 08:53; Start 03/28/17 at 08:15; Stop 03/28/17 at 08:21; Status DC Meropenem 1 gm/ Sodium Chloride 100 ml @ 200 mls/hr DAILY IV ; Start 03/28/17 at 08:30; Stop 03/28/17 at 08:30; Status DC Gentamicin Sulfate 1 each ONCE ONCE MC ; Start 03/28/17 at 08:15; Stop at 08:33; Status DC Meropenem 1 gm/ Sodium Chloride 100 ml @ 200 mls/hr DAILY IV Last administered on 04/02/17 08:58; Start 03/28/17 at 08:30; Stop 04/03/17 at 09:42 ; Status DC Micafungin Sodium 100 mg/Dextrose 100 ml @ 100 mls/hr Q24H IV Last administered on 04/02/17 13:23; Start 03/28/17 at 10:00; Stop 04/03/17 at 09:42 ; Status DC Vancomycin HCl 2 gm/Sodium Chloride 500 ml @ 250 mls/hr ONCE ONCE IV Last administered on 03/28/17 11:20; Start 03/28/17 at 09:00; Stop 03/28/17 at 10:59 ; Status DC Gentamicin Sulfate 280 mg/ Sodium Chloride 107 ml @ 107 mls/hr ONCE ONCE IV Last administered on 03/28/17 09:00; Start 03/28/17 at 09:00; Stop 03/28/17 at 09:59; Status DC Magnesium Sulfate/ Dextrose 50 ml @ 25 mls/hr PRN DAILY PRN IV for Mag < 1.7 on am labs; Start 03/28/17 at 13:30 Sodium Chloride 1,000 ml @ 1,000 mls/hr Q1H PRN IV hypotension; Start 03/28/17 at 13:15; Stop 03/28/17 at 19:14; Status DC Albumin Human 200 ml @ 200 mls/hr 1X PRN PRN IV Hypotension; Start 03/28/17 at 13:15; Stop 03/28/17 at 19:14; Status DC Acetaminophen (Tylenol) 500 mg 1X PRN PRN PO MILD PAIN / TEMP; Start 03/28/17 at 13:15; Stop 03/29/17 at 13:14; Status DC Diphenhydramine HCl (Benadryl) 25 mg 1X PRN PRN IV ITCHING; Start 03/28/17 at 13:15; Stop 03/29/17 at 13:14; Status DC Labetalol HCl (Normodyne) 10 mg PRN Q1HR PRN IVP SBP > 180; Start 03/28/17 at 13:15; Stop 03/29/17 at 13:14; Status DC Clonidine HCl (Catapres) 0.1 mg 1X PRN PRN PO SBP > 180; Start 03/28/17 at 13: 15; Stop 03/29/17 at 13:14; Status DC Info (PHARMACY MONITORING -- do not chart) 1 each PRN DAILY PRN MC SEE COMMENTS ; Start 03/28/17 at 13:15 Lidocaine HCl 20 ml ONCE ONCE IJ Last administered on 03/28/17 13:45; Start 03/28/17 at 13:45; Stop 03/28/17 at 13:46; Status DC Warfarin Sodium (Coumadin) 7.5 mg 1X WARF ONCE PO ; Start 03/28/17 at 16:00; Stop 03/28/17 at 16:01; Status Cancel Vancomycin HCl 1 each 1X ONCE MC Last administered on 03/29/17 06:00; Start 03/29/17 at 06:00; Stop 03/29/17 at 06:01; Status DC Chlorhexidine Gluconate (Peridex) 15 ml BID SWSP Last administered on 21:05; Start 03/29/17 at 09:30 Warfarin Sodium (Coumadin Per Pharmacy) 1 each PRN DAILY PRN MC SEE COMMENTS Last administered on 04/05/17 10:49; Start 03/29/17 at 14:00 Warfarin Sodium (Coumadin) 7.5 mg 1X WARF ONCE PO ; Start 03/29/17 at 16:00; Stop 03/29/17 at 16:01; Status DC Vancomycin HCl 750 mg/Sodium Chloride 100 ml @ 100 mls/hr QTUTHSA IV Last administered on 03/29/17 17:30; Start 03/29/17 at 16:00; Stop 03/31/17 at 11:32 ; Status DC Sodium Chloride 1,000 ml @ 1,000 mls/hr Q1H PRN IV hypotension; Start 03/29/17 at 15:11; Stop 03/29/17 at 21:10; Status DC Sodium Chloride 1,000 ml @ 400 mls/hr Q2H30M PRN IV PATENCY; Start 03/29/17 at 15:11; Stop 03/30/17 at 03:10; Status DC Info (PHARMACY MONITORING -- do not chart) 1 each PRN DAILY PRN MC SEE COMMENTS ; Start 03/29/17 at 15:15; Status UNV Info (PHARMACY MONITORING -- do not chart) 1 each PRN DAILY PRN MC SEE COMMENTS ; Start 03/29/17 at 15:15; Status UNV Ondansetron HCl (Zofran) 4 mg PRN Q6HRS PRN IV NAUSEA/VOMITING; Start 03/30/17 at 07:00; Stop 03/31/17 at 06:59; Status DC Fentanyl Citrate (Fentanyl 2ml Vial) 25 mcg PRN Q5MIN PRN IV MILD PAIN; Start 03/30/17 at 07:00; Stop 03/31/17 at 06:59; Status DC Fentanyl Citrate (Fentanyl 2ml Vial) 50 mcg PRN Q5MIN PRN IV MODERATE PAIN; Start 03/30/17 at 07:00; Stop 03/31/17 at 06:59; Status DC Morphine Sulfate 1 mg PRN Q10MIN PRN IV SEVERE PAIN; Start 03/30/17 at 07:00; Stop 03/31/17 at 06:59; Status DC Ringer's Solution 1,000 ml @ 0 mls/hr Q0M IV ; Start 03/30/17 at 07:00; Stop at 18:59; Status Cancel Lidocaine HCl 2 ml PRN 1X PRN ID PRIOR TO IV START; Start 03/30/17 at 07:00; Stop 03/31/17 at 06:59; Status DC Hydromorphone HCl (Dilaudid) 0.5 mg PRN Q10MIN PRN IV SEV PAIN, Second choice; Start 03/30/17 at 07:00; Stop 03/31/17 at 06:59; Status DC Prochlorperazine Edisylate (Compazine) 5 mg PACU PRN PRN IV NAUSEA, MRX1; Start 03/30/17 at 07:00; Stop 03/31/17 at 06:59; Status DC Bupivacaine HCl/ Epinephrine Bitart (Sensorcain-Mpf Epi 0.5%-[id number]) 30 ml STK -MED ONCE .ROUTE ; Start 03/30/17 at 07:41; Stop 03/30/17 at 07:42; Status DC Sodium Chloride 1,000 ml @ 0 mls/hr Q0M IV Last administered on 03/30/17t 16: 27; Start 03/30/17 at 10:00; Stop 03/31/17 at 07:48; Status DC Warfarin Sodium (Coumadin) 7.5 mg 1X WARF ONCE PO Last administered on 21:12; Start 03/30/17 at 16:00; Stop 03/30/17 at 16:01; Status DC Sodium Chloride 1,000 ml @ 30 mls/hr Q24H IV ; Start 03/30/17 at 16:30; Stop at 07:48; Status DC Dexamethasone Sodium Phosphate (Decadron) 20 mg STK-MED ONCE .ROUTE ; Start at 16:32; Stop 03/30/17 at 16:33; Status DC Ondansetron HCl (Zofran) 4 mg STK-MED ONCE .ROUTE ; Start 03/30/17 at 16:32; Stop 03/30/17 at 16:33; Status DC Propofol 20 ml @ As Directed STK-MED ONCE IV ; Start 03/30/17 at 16:32; Stop at 16:33; Status DC Lidocaine HCl (Lidocaine Pf 2% Vial) 5 ml STK-MED ONCE .ROUTE ; Start 03/30/17 at 16:32; Stop 03/30/17 at 16:33; Status DC Midazolam HCl (Versed) 2 mg STK-MED ONCE .ROUTE ; Start 03/30/17 at 16:32; Stop 03/30/17 at 16:33; Status DC Phenylephrine HCl 1 mg STK-MED ONCE IV ; Start 03/30/17 at 16:48; Stop 03/30/17 at 16:49; Status DC Fentanyl Citrate (Fentanyl 2ml Vial) 100 mcg STK-MED ONCE .ROUTE ; Start at 16:52; Stop 03/30/17 at 16:53; Status DC Sevoflurane (Ultane) 60 ml STK-MED ONCE IH ; Start 03/30/17 at 17:20; Stop 03/30 at 17:21; Status DC Polyethylene Glycol (miraLAX PACKET) 17 gm PRN DAILY PRN PO CONSTIPATION; Start 03/30/17 at 17:30 Ondansetron HCl (Zofran) 4 mg PRN Q4HRS PRN IV NAUSEA/VOMITING Last administered on 04/03/17t 17:33; Start 03/30/17 at 17:30 Dextrose (Dextrose 50%-Water Syringe) 12.5 gm PRN Q15MIN PRN IV SEE COMMENTS; Start 03/30/17 at 17:30 Sevoflurane (Ultane) 30 ml STK-MED ONCE IH ; Start 03/30/17 at 17:46; Stop 03/30 at 17:47; Status DC Sodium Chloride 1,000 ml @ 1,000 mls/hr Q1H PRN IV hypotension; Start 03/31/17 at 07:32; Stop 03/31/17 at 15:00; Status DC Albumin Human 200 ml @ 200 mls/hr 1X PRN PRN IV Hypotension; Start 03/31/17 at 07:45; Stop 03/31/17 at 15:00; Status DC Sodium Chloride 1,000 ml @ 400 mls/hr Q2H30M PRN IV PATENCY; Start 03/31/17 at 07:32; Stop 03/31/17 at 15:00; Status DC Info (PHARMACY MONITORING -- do not chart) 1 each PRN DAILY PRN MC SEE COMMENTS ; Start 03/31/17 at 07:45; Status UNV Lidocaine HCl (Xylocaine-Mpf 1% Vial) 2 ml 1X STAT INJ Last administered on 08:14; Start 03/31/17 at 08:14; Stop 03/31/17 at 08:15; Status DC Warfarin Sodium (Coumadin) 7.5 mg 1X WARF ONCE PO Last administered on 16:44; Start 03/31/17 at 16:00; Stop 03/31/17 at 16:01; Status DC Codeine Sulfate (Codeine) 15 mg PRN Q6HRS PRN PO cough Last administered on 22:32; Start 03/31/17 at 19:15 Codeine Sulfate (Codeine) 30 mg PRN Q6HRS PRN PO cough Last administered on 16:48; Start 03/31/17 at 19:15 Darbepoetin Jace (Aranesp) 100 mcg Freeman@2100 SQ Last administered on 04/01/17 20 :54; Start 04/01/17 at 21:00 Warfarin Sodium (Coumadin) 10 mg 1X WARF ONCE PO Last administered on 16:48; Start 04/01/17 at 16:00; Stop 04/01/17 at 16:01; Status DC Warfarin Sodium (Coumadin) 10 mg 1X WARF ONCE PO Last administered on 16:45; Start 04/02/17 at 16:00; Stop 04/02/17 at 16:01; Status DC Sodium Chloride 1,000 ml @ 1,000 mls/hr Q1H PRN IV hypotension; Start 04/03/17 at 08:54; Stop 04/03/17 at 14:53; Status DC Sodium Chloride 1,000 ml @ 400 mls/hr Q2H30M PRN IV PATENCY; Start 04/03/17 at 08:54; Stop 04/03/17 at 20:53; Status DC Info (PHARMACY MONITORING -- do not chart) 1 each PRN DAILY PRN MC SEE COMMENTS ; Start 04/03/17 at 09:00; Status UNV Info (PHARMACY MONITORING -- do not chart) 1 each PRN DAILY PRN MC SEE COMMENTS ; Start 04/03/17 at 09:00; Status UNV Cefazolin Sodium 1 gm/Sodium Chloride 50 ml @ 100 mls/hr DAILY IV Last administered on 04/05/17t 08:27; Start 04/03/17 at 10:00 Warfarin Sodium (Coumadin) 10 mg 1X WARF ONCE PO ; Start 04/03/17 at 16:00; Stop 04/03/17 at 16:01; Status DC Lidocaine HCl (Xylocaine-Mpf 1% Vial) 2 ml 1X PRN PRN ID FOR PIC LINE INSERTION ; Start 04/03/17 at 14:30; Stop 04/04/17 at 14:29; Status DC Sodium Chloride (Normal Saline Flush) 20 ml 1X PRN PRN IV PER PROTOCOL; Start 04/03/17 at 14:30; Stop 04/03/17 at 18:00; Status DC Lidocaine/ Prilocaine (Emla) 1 ayaz 1X ONCE TP ; Start 04/03/17 at 14:30; Stop 04/03/17 at 14:31; Status DC Sodium Chloride (Normal Saline Flush) 10 ml QSHIFT PRN IV AFTER MEDS AND BLOOD DRAWS; Start 04/03/17 at 18:00 Sodium Chloride (Normal Saline Flush) 20 ml QSHIFT PRN IV AFTER MEDS AND BLOOD DRAWS; Start 04/03/17 at 18:00 Ondansetron HCl (Zofran) 4 mg PRN Q6HRS PRN IV NAUSEA/VOMITING; Start 04/04/17 at 07:15; Stop 04/05/17 at 07:14; Status DC Fentanyl Citrate (Fentanyl 2ml Vial) 25 mcg PRN Q5MIN PRN IV MILD PAIN; Start 04/04/17 at 07:15; Stop 04/05/17 at 07:14; Status DC Fentanyl Citrate (Fentanyl 2ml Vial) 50 mcg PRN Q5MIN PRN IV MODERATE PAIN Last administered on 04/04/17 17:20; Start 04/04/17 at 07:15; Stop 04/05/17 at 07:14; Status DC Morphine Sulfate 1 mg PRN Q10MIN PRN IV SEVERE PAIN; Start 04/04/17 at 07:15; Stop 04/05/17 at 07:14; Status DC Ringer's Solution 1,000 ml @ 30 mls/hr Q24H IV ; Start 04/04/17 at 07:13; Stop 04/04/17 at 19:12; Status DC Lidocaine HCl 2 ml PRN 1X PRN ID PRIOR TO IV START; Start 04/04/17 at 07:15; Stop 04/05/17 at 07:14; Status DC Hydromorphone HCl (Dilaudid) 0.5 mg PRN Q10MIN PRN IV SEV PAIN, Second choice; Start 04/04/17 at 07:15; Stop 04/05/17 at 07:14; Status DC Prochlorperazine Edisylate (Compazine) 5 mg PACU PRN PRN IV NAUSEA, MRX1; Start 04/04/17 at 07:15; Stop 04/05/17 at 07:14; Status DC Warfarin Sodium (Coumadin) 7.5 mg 1X WARF ONCE PO Last administered on 18:46; Start 04/04/17 at 16:00; Stop 04/04/17 at 16:01; Status DC Sodium Chloride 500 ml @ 0 mls/hr 1X ONCE IV Last administered on 04/04/17 14 :00; Start 04/04/17 at 14:00; Stop 04/04/17 at 14:01; Status DC Fentanyl Citrate (Fentanyl 2ml Vial) 100 mcg STK-MED ONCE .ROUTE ; Start at 14:29; Stop 04/04/17 at 14:30; Status DC Propofol 20 ml @ As Directed STK-MED ONCE IV ; Start 04/04/17 at 14:56; Stop at 14:57; Status DC Lidocaine HCl (Lidocaine Pf 2% Vial) 5 ml STK-MED ONCE .ROUTE ; Start 04/04/17 at 14:56; Stop 04/04/17 at 14:57; Status DC Dexamethasone Sodium Phosphate (Decadron) 20 mg STK-MED ONCE .ROUTE ; Start at 14:56; Stop 04/04/17 at 14:57; Status DC Ondansetron HCl (Zofran) 4 mg STK-MED ONCE .ROUTE ; Start 04/04/17 at 14:56; Stop 04/04/17 at 14:57; Status DC Ephedrine Sulfate 50 mg STK-MED ONCE IV ; Start 04/04/17 at 14:57; Stop at 14:58; Status DC Sevoflurane (Ultane) 30 ml STK-MED ONCE IH ; Start 04/04/17 at 15:01; Stop 04/04 at 15:02; Status DC Tranexamic Acid 1000 mg/Sodium Chloride 60 ml @ 60 mls/hr 1X PERIOP ONCE INJ ; Start 04/04/17 at 15:45; Stop 04/04/17 at 16:44; Status DC Sevoflurane (Ultane) 60 ml STK-MED ONCE IH ; Start 04/04/17 at 15:47; Stop 04/04 at 15:48; Status DC Senna/Docusate Sodium (Senna Plus) 1 tab DAILY PO ; Start 04/05/17 at 09:00 Polyethylene Glycol (miraLAX PACKET) 17 gm PRN DAILY PRN PO CONSTIPATION; Start 04/04/17 at 16:30; Status UNV Ondansetron HCl (Zofran) 4 mg PRN Q4HRS PRN IV NAUSEA/VOMITING; Start 04/04/17 at 16:30; Status UNV Magnesium Hydroxide (Milk Of Magnesia) 2,400 mg 1X PRN PRN PO CONSTIPATION; Start 04/05/17 at 06:00; Stop 04/06/17 at 05:59 Acetaminophen/ Hydrocodone Bitart (Lortab 7.5/325) 1 tab PRN Q4HRS PRN PO PAIN ; Start 04/04/17 at 16:30 Acetaminophen/ Hydrocodone Bitart (Lortab 7.5/325) 2 tab PRN Q4HRS PRN PO PAIN ; Start 04/04/17 at 16:30 Dextrose (Dextrose 50%-Water Syringe) 12.5 gm PRN Q15MIN PRN IV SEE COMMENTS; Start 04/04/17 at 16:30; Status UNV Fentanyl Citrate (Fentanyl 2ml Vial) 100 mcg STK-MED ONCE .ROUTE ; Start at 17:01; Stop 04/04/17 at 17:02; Status DC Lidocaine HCl (Xylocaine-Mpf 1% Vial) 2 ml STK-MED ONCE .ROUTE ; Start 04/05/17 at 09:09; Stop 04/05/17 at 09:10; Status DC Sodium Chloride 1,000 ml @ 1,000 mls/hr Q1H PRN IV hypotension; Start 04/05/17 at 10:34; Stop 04/05/17 at 16:33 Info (PHARMACY MONITORING -- do not chart) 1 each PRN DAILY PRN MC SEE COMMENTS ; Start 04/05/17 at 10:45; Stop 04/05/17 at 10:45; Status DC Info (PHARMACY MONITORING -- do not chart) 1 each PRN DAILY PRN MC SEE COMMENTS ; Start 04/05/17 at 10:45; Stop 04/05/17 at 10:45; Status DC Warfarin Sodium (Coumadin) 5 mg DAILY16 PO ; Start 04/05/17 at 16:00 Active Scripts Active Levetiracetam 500 Mg Tablet 500 Mg PO BID Lidoderm (Lidocaine) 700 Mg Adh..patch 1 Patch TD DAILY Metoprolol Tartrate 50 Mg Tablet 50 Mg PO BID Synthroid (Levothyroxine Sodium) 175 Mcg Tablet 175 Mcg PO DAILY07 Isosorbide Mononitrate Er (Isosorbide Mononitrate) 30 Mg Tab.er.24h 30 Mg PO DAILY Reported Sodium Bicarbonate 650 Mg Tablet 2 Tab PO BID on dialysis days sunday, and sunday Meclizine Hcl 12.5 Mg Tablet 1 Tab PO TID Calcium Carbonate 500 Mg Tablet 500 Mg PO TIDWMEALS Ambien (Zolpidem Tartrate) 5 Mg Tablet 5 Mg PO HS PRN Alprazolam 0.25 Mg Tablet 1 Tab PO PRN Ventolin Hfa Inhaler (Albuterol Sulfate) 18 Gm Hfa.aer.ad 1 Puff INH Q6HRS PRN Ropinirole Hcl 0.25 Mg Tablet 0.25 Mg PO Citalopram Hbr (Citalopram Hydrobromide) 20 Mg Tablet 1 Tab PO DAILY Trazodone Hcl 50 Mg Tablet 0.5-1 Tab PO QHS Risperidone 0.5 Mg Tablet 1 Tab PO QHS Famotidine 20 Mg Tablet 20 Mg PO HS Coumadin (Warfarin Sodium) 5 Mg Tablet 1 Tab PO DAILY Nephro-Jimmy Tablet (Folic Acid/Vitamin B Comp W-C) 0.8 Mg Tablet 1 Tab PO DAILY Carafate (Sucralfate) 1 Gm Tablet 1 Tab PO BID Nitrostat (Nitroglycerin) 0.4 Mg Tab.subl 0.4 Mg SL PRN Q5MIN PRN Voltaren (Diclofenac Sodium) 100 Gm Gel..gram. 1 Gm TP BID Clopidogrel (Clopidogrel Bisulfate) 75 Mg Tablet 75 Mg PO DAILY07 Renvela (Sevelamer Carbonate) 800 Mg Tablet 2,400 Tab PO TIDWMEALS Vitamin D2 (Ergocalciferol (Vitamin D2)) 50,000 Unit Capsule 50,000 Unit PO WEEKLY weekly on Sunday Atorvastatin Calcium 80 Mg Tablet 80 Mg PO HS Vitals/I & O Vital Sign - Last 24 Hours 04/04/17 04/04/17 04/04/17 04/04/17 14:16 15:05 16:23 16:38 Temp 97.9 97.5 97.9 97.5 Pulse 71 80 81 Resp 15 18 16 B/P (MAP) 137/68 161/80 143/63 Pulse Ox 97 100 100 O2 Delivery Room Air Room Air Simple Mask Room Air O2 Flow Rate 6.0 10 04/04/17 04/04/17 04/04/17 04/04/17 16:53 17:06 17:08 17:45 Temp 97.9 97.9 97.9 97.9 97.9 97.9 Pulse 91 82 80 Resp 16 17 16 18 B/P (MAP) 131/63 114/59 135/69 (91) Pulse Ox 95 93 93 94 O2 Delivery Room Air Room Air Room Air Room Air 04/04/17 04/04/17 04/04/17 04/04/17 18:00 18:15 18:30 18:34 Temp 97.5 97.6 97.7 97.5 97.6 97.7 Pulse 78 80 84 Resp 18 18 18 B/P (MAP) 120/67 (84) 126/76 (93) 129/72 (91) Pulse Ox 95 95 96 95 O2 Delivery Room Air Room Air Room Air Room Air O2 Flow Rate 10.0 04/04/17 04/04/17 04/04/17 04/04/17 19:00 19:30 19:45 20:43 Temp 98.1 98.3 98.1 98.3 Pulse 80 84 83 Resp 18 18 20 B/P (MAP) 125/72 (89) 133/84 (100) 139/77 (97) Pulse Ox 98 98 98 O2 Delivery Room Air Room Air Room Air 04/04/17 04/04/17 04/05/17 04/05/17 21:05 23:44 03:34 07:19 Temp 98.4 98.5 97.9 98.4 98.5 97.9 Pulse 83 78 79 86 Resp 20 18 20 B/P (MAP) 139/77 128/65 (86) 126/62 (83) 137/62 (87) Pulse Ox 98 96 98 O2 Delivery Room Air Room Air Room Air 04/05/17 04/05/17 04/05/17 08:00 08:25 08:26 Pulse 86 86 B/P (MAP) 137/62 137/62 O2 Delivery Room Air Intake and Output 04/04/17 04/04/17 04/05/17 15:00 23:00 07:00 Intake Total 180 ml Output Total 200 ml Balance -200 ml 180 ml VIC TIWARI III DO Apr 05, 2017 12:02
[2017-04-05 15:03] VITALS: BP 152/87
[2017-04-05] MEDS ORDERED: WARFARIN 5 MG TABLET. PO SCH (16:00)
[2017-04-05] MEDS: MORPHINE SULFATE 4 MG/ML DISP.SYRIN. IV PRN (16:11)
--- NOTE | 2017-04-11 19:24 | PDOC ---
BRIEF OPERATIVE NOTE Date: Mar 30, 2017 Pre-Op Diagnosis left foot abscess Post-Op Diagnosis same Procedure Performed left foot abscess incision and drainage Surgeon nick starr Anesthesia Type: General Blood Loss 50 mL Specimens Obtained aerobic and anaerobic Findings hematoma, possible abscess Complications none OPerative Note dictated [id number] left open for secondary closure. Wound VAC MARSHA TENORIO MD Apr 11, 2017 19:24
--- NOTE | 2017-04-11 19:37 | OP ---
DATE OF SURGERY: 03/30/2017 PREOPERATIVE DIAGNOSIS: Left foot abscess. POSTOPERATIVE DIAGNOSIS: Left foot abscess. PROCEDURE: Left foot incision and drainage of abscess, left open for secondary repair. SURGEON: Marco Jamison MD CHANGE MANAGEMENT COORDINATOR: ALEXIS Guerrero ANESTHESIA: General. ESTIMATED BLOOD LOSS: 50 mL. COMPLICATIONS: None. SPECIMENS: Deep cultures. DRAINS: Wound VAC. INDICATIONS FOR PROCEDURE: The patient is a 51-year-old man who has diabetes and neuroplasty. He had a transmetatarsal amputation a couple of weeks ago for osteomyelitis. Unfortunately, he has developed quite a bit of swelling, and now some dehiscence of his previous surgery. It appears there is some deep infection, perhaps a hematoma, and he is not yet cleared all of the infection from previously. I believe it is still infected and that there is some risk he will need a below-knee amputation or even above-knee amputation, but the attempt today would be to preserve his foot with transmetatarsal amputation. He and I talked about all of this and despite that there are risks that he will fail this and need a below-knee amputation, he agrees to proceed with this today and I think it is the best thing for him. I am hopeful we will save his foot. Written consent was obtained. PROCEDURE IN DETAIL: The patient was identified in the preoperative holding area. The correct left leg was marked by me. He was taken to the operating room where a general anesthetic was used. No tourniquet was applied. A timeout procedure was performed. The limb was prepared in a sterile fashion, The previous sutures in the deep portion of the tissue were removed. There were some superficial nylon sutures that were also removed. I was able to incise some of the deep PDS sutures, and reopened the prior surgical flap closure. There was an extensive amount of hematoma here. It does not appear grossly infected. I did take some cultures as there could be secondary infection. It appears the problem was that there was too much bleeding and that he collected quite a bit of blood here. No debridement except of abscess cavity was performed. The plan is to open the abscess, and leave it open, for a delayed secondary closure which should help clear the infection. I used thorough irrigation with saline. Wound VAC was then applied by the wound care nurse. The patient tolerated the procedure well. Needle and sponge counts were correct. There were no apparent complications. Marco Jamison MD DR: Luis JOB#: [id number] / [id number] YON
--- NOTE | 2017-04-16 16:55 | DS ---
DATE OF DISCHARGE: 04/05/2017 DISCHARGE DIAGNOSES: Acute on chronic left foot wound with dehiscence. DISCHARGE DIAGNOSES: 1. Resolving left foot wound (he went back for a surgery to have the wound closed) 2. End-stage renal disease, on dialysis. HOSPITAL COURSE: The patient is a pleasant 51-year-old male well known to our service. Basically, he is on dialysis. He also has severe peripheral vascular disease. He has had a wound on his foot that was corrected, but it dehisced. He was admitted, we gave him IV antibiotics. We did wound care. He was taken for revision of the wound. We also had a wound VAC on. We did dialysis. We discharged home with home IV antibiotics. DISPOSITION: Home. ACTIVITY: As tolerated. DIET: Low sodium. MEDICATIONS: Please see the MRAD. TOTAL TIME ON DISCHARGE: 39 minutes. VIC TIWARI DO DR: YOHAN/roni JOB#: [id number] / [id number]
== END 2017-04-05 17:18 | disposition home or self-care (01) | DRG 463 ==
LOC: ER 09:46 → 6 SOUTH 11:08
PROVIDERS: ADMIT Internal Medicine; ATTEND Internal Medicine
PROC: 5A1D60Z (ICD-10-PCS; principal; 2017-03-27)
PROC: 0JBR0ZZ Excision of Left Foot Subcutaneous Tissue and Fascia, Open Approach (ICD-10-PCS; 2017-03-30)
PROC: 02HV33Z Insertion of Infusion Device into Superior Vena Cava, Percutaneous Approach (ICD-10-PCS; 2017-04-04)
DX: T87.81 Dehiscence of amputation stump (principal); A41.01 Sepsis due to Methicillin susceptible Staphylococcus aureus; I13.2 Hypertensive heart and chronic kidney disease with heart failure and with stage 5 chronic kidney disease, or end stage renal disease; M86.172 Other acute osteomyelitis, left ankle and foot; N18.6 End stage renal disease; L03.116 Cellulitis of left lower limb; T81.30XA Disruption of wound, unspecified, initial encounter; E11.22 Type 2 diabetes mellitus with diabetic chronic kidney disease; L02.612 Cutaneous abscess of left foot; T87.44 Infection of amputation stump, left lower extremity; E11.42 Type 2 diabetes mellitus with diabetic polyneuropathy; I48.0 Paroxysmal atrial fibrillation; E11.65 Type 2 diabetes mellitus with hyperglycemia; I50.9 Heart failure, unspecified; Y83.5 Amputation of limb(s) as the cause of abnormal reaction of the patient, or of later complication, without mention of misadventure at the time of the procedure; E03.9 Hypothyroidism, unspecified; I25.10 Atherosclerotic heart disease of native coronary artery without angina pectoris; G89.29 Other chronic pain; E66.9 Obesity, unspecified; K21.9 Gastro-esophageal reflux disease without esophagitis; J45.909 Unspecified asthma, uncomplicated; F03.90 Unspecified dementia, unspecified severity, without behavioral disturbance, psychotic disturbance, mood disturbance, and anxiety; F41.9 Anxiety disorder, unspecified; F32.9 Major depressive disorder, single episode, unspecified; Z96.659 Presence of unspecified artificial knee joint; D63.1 Anemia in chronic kidney disease; E11.69 Type 2 diabetes mellitus with other specified complication; E78.00 Pure hypercholesterolemia, unspecified; E78.5 Hyperlipidemia, unspecified; K57.90 Diverticulosis of intestine, part unspecified, without perforation or abscess without bleeding; K64.9 Unspecified hemorrhoids; I25.2 Old myocardial infarction; Z99.2 Dependence on renal dialysis; Z86.718 Personal history of other venous thrombosis and embolism; Z79.01 Long term (current) use of anticoagulants; Z86.73 Personal history of transient ischemic attack (TIA), and cerebral infarction without residual deficits; Z82.49 Family history of ischemic heart disease and other diseases of the circulatory system; Z88.0 Allergy status to penicillin; Z88.8 Allergy status to other drugs, medicaments and biological substances; Z88.1 Allergy status to other antibiotic agents; Z91.041 Radiographic dye allergy status; Z68.37 Body mass index [BMI] 37.0-37.9, adult; Z89.432 Acquired absence of left foot; Z95.5 Presence of coronary angioplasty implant and graft
CPT/HCPCS: 36415; 71010; 73630; 80048; 80053; 80069; 80202; 81001; 82962; 83605; 83735; 85007; 85025; 85027; 85610; 85651; 86140; 87040; 87071; 87075; 87186; 87205; 94250; 94640; 94760; 96374; J0690; J0881; J1100; J1580; J2185; J2248; J2250; J2270; J2370; J2405; J2704; J3010; J3370; J3490; J7030; J7040; J7613; J8597; 97116; 97530; 99285-25; J2001

== ENCOUNTER 2017-04-23 15:26 | Inpatient (IN) | payer MEDICARE, OTHER ==
[~2017-04-23] VITALS: Ht 198.1 cm; Wt 128.4 kg
[~2017-04-23 15:26] MED LIST changes: +CALC500T PO; +SODI650T PO; +ZOLP5TAB PO
[2017-04-23 17:33] VITALS: BP 154/77
[2017-04-23] MEDS ORDERED: PIP/TAZO PER PHARMACY MC PRN (18:30)
[2017-04-23] MEDS: VANCOMYCIN PER PHARMACY MC PRN (18:48)
[2017-04-23 19:00] VITALS: BP 145/77
[2017-04-23] MEDS ORDERED: VANCOMYCIN 2 GM in IV NORMAL SALINE 500ML BAG 500 ML IV ONE (19:00)
--- NOTE | 2017-04-23 19:52 | RAD ---
PORTABLE CHEST 1V dated 04/23/2017 7:32 PM. Comparison: 04/23/2017 Clinical Indication: INPATIENT. verify R UE PICC placement. Findings: Single upright portable exam performed. Heart size upper limits of normal. Right-sided PICC with tip projected to the level the mid SVC. Bilateral brachiocephalic vein stents in place. Lungs are clear without focal consolidation. Vascular interstitium within normal limits. No pleural effusion or pneumothorax. Impression: Right-sided PICC with tip projected to the level the mid SVC. Electronically signed by: Sher Valenzuela MD (04/23/2017 7:48 PM) [facility]
[2017-04-23] MEDS: INSULIN ASPART 300 UNITS/3 ML INSULN.PEN SQ SCH (20:00)
[2017-04-23] MEDS ORDERED: NITROGLYCERIN SUBLINGUAL 0.4 MG BOTTLE OF 25. SL PRN (20:00)
[2017-04-23] MEDS ORDERED: ALPRAZolam 0.25 MG TABLET PO PRN (20:00)
[2017-04-23] MEDS ORDERED: DEXTROSE 50% 25 GM / 50ML DISP.SYRIN. IV PRN (20:00)
[2017-04-23] MEDS: MEROPENEM 500 MG in IV NORMAL SALINE 50ML 50 ML IV SCH (20:00)
[2017-04-23] MEDS: DICLOFENAC SODIUM 1% TOPICAL GEL 100GM TUBE. TP SCH (21:00)
[2017-04-23] MEDS: SODIUM BICARBONATE 650 MG TABLET. PO SCH (21:00)
[2017-04-23] MEDS: levETIRAcetam 500 MG TABLET PO SCH (21:01)
[2017-04-23] MEDS: traZODone 50 MG TABLET. PO SCH (21:01)
[2017-04-23] MEDS: FAMOTIDINE 20 MG TABLET. PO SCH (21:01)
[2017-04-23] MEDS: SUCRALFATE 1 GM TABLET. PO SCH (21:01)
[2017-04-23] MEDS: MECLIZINE HCL 12.5 MG TABLET. PO SCH (21:01)
[2017-04-23] MEDS: METOPROLOL TART IMMED RELEASE 50 MG TABLET. PO SCH (21:02)
[2017-04-23 21:37] LABS: INR 1.2 (0.8-1.1); PROTHROMBIN TIME PATIENT 14.8 SEC (11.7-14.0)
[2017-04-23 21:44] LABS: ALBUMIN 2.6 g/dL (3.4-5.0); ALBUMIN/GLOBULIN RATIO 0.4 (1.0-1.7); CREATININE 6.7 mg/dL (0.7-1.3); GFR 10.6; POTASSIUM 4.7 mmol/L (3.5-5.1); TOTAL BILIRUBIN 0.9 mg/dL (0.2-1.0); TOTAL PROTEIN 9.1 g/dL (6.4-8.2)
--- NOTE | 2017-04-23 22:51 | HP ---
ADMIT DATE: 04/23/2017 CHIEF COMPLAINT: Foot infection. HISTORY OF PRESENT ILLNESS: The patient is a pleasant middle-aged male who we admit regularly. He has severe peripheral vascular disease. He is on dialysis as well. Basically, [facility] He has been trying to get his foot healed up, but it is just massively infected. Dr. Jamison called me and he wants to make the patient direct admit. He is going to do [id number] amputation tomorrow. PAST MEDICAL HISTORY: End-stage renal disease; on dialysis, chronic peripheral vascular disease with multiple wounds, depression, anxiety, hyperlipidemia, hypertension, diabetes. ALLERGIES: None. FAMILY HISTORY: Diabetes. SOCIAL HISTORY: Does not drink, smoke, or take drugs. He is . MEDICATIONS: Reviewed. REVIEW OF SYSTEMS: GENERAL: No history of weight change, weakness, or fevers. SKIN: No bruising, hair changes, or rashes. EYES: No blurred, double, or loss of vision. NOSE AND THROAT: No history of nosebleeds, hoarseness, or sore throat. HEART: No history of palpitations, chest pain, or shortness of breath on exertion. LUNGS: Denies cough, hemoptysis, wheezing, or shortness of breath. GASTROINTESTINAL: Denies changes in appetite, nausea, vomiting, diarrhea, or constipation. GENITOURINARY: No history of frequency, urgency, hesitancy, or nocturia. NEUROLOGIC: Denies history of numbness, tingling, tremor, or weakness. PSYCHIATRIC: No history of panic, anxiety, or depression. ENDOCRINE: No history of heat or cold intolerance, polyuria, or polydipsia. EXTREMITIES: He complains of right foot wound. PHYSICAL EXAMINATION: VITAL SIGNS: Temperature afebrile, pulse 74, respirations 20, blood pressure 133/78. GENERAL: He is awake, alert. HEART: Normal S1, S2. LUNGS: Clear. ABDOMEN: Soft. EXTREMITIES: Right foot has clean, dry, and intact dressing. ENDOCRINE: No thyromegaly. LYMPHATICS: No cervical nodes. HEMATOPOIETIC: No bruising. ASSESSMENT AND PLAN: Acute on chronic foot wounds. He is going to go ahead and require [id number] amputation. The patient is being admitted. We will consult Dr. Jamison. He plans to take the patient for surgery tomorrow morning. We will continue his home medicines. Consult Dr. Urena for dialysis. Consult Infectious Disease. LONG-TERM PROGNOSIS: Guarded. VIC TIWARI DO DR: YOHAN/roni JOB#: [id number] / [id number]
[2017-04-23 23:30] VITALS: BP 121/63
[2017-04-24 03:23] VITALS: BP 103/52
[2017-04-24 05:40] LABS: BASO # 0.1 x10^3/uL (0.0-0.2); BASO % 1 % (0-3); EOS % 2 % (0-3); HEMOGLOBIN 8.3 g/dL (13.0-17.5); LYMPH % 13 % (24-48); MEAN CORPUSCULAR HEMOGLOBIN 31 pg (25-35); MEAN CORPUSCULAR HGB CONC 35 g/dL (31-37); MEAN CORPUSCULAR VOLUME 90 fL (79-100); MONO % 12 % (0-9); NEUT % 73 % (31-73); PLATELET COUNT 165 x10^3/uL (140-400); RED BLOOD COUNT 2.66 x10^6/uL (4.30-5.70); RED CELL DISTRIBUTION WIDTH 15.6 % (11.5-14.5); WHITE BLOOD COUNT 7.6 x10^3/uL (4.0-11.0)
--- NOTE | 2017-04-24 05:58 | ACF ---
Admission Forms Criteria GENERAL ADMISSION CRITERIA (Place 'X' for any and all applicable criteria): Admission is indicated for ANY ONE of the following: [ ]I. Hemodynamic instability as indicated by ANY ONE of the following(1)(2) (3)(4)(5): [ ]a) Vital sign abnormality not readily corrected by appropriate treatment within 12 to 24 hours indicated by ANY ONE of the following: [ ]i) Hypotension [ ]ii) Symptomatic Tachycardia unresponsive to treatment (eg , analgesia, fluids, sedation as indicated) [ ]iii) Orthostatic vital sign changes unresponsive to treatment (eg, fluids) [ ]b) Vital sign abnormality that is severe indicated by ANY ONE of the following: [ ]i) Inadequate perfusion indicated by ANY ONE of the following: [ ]1) Lactic acidosis (greater than 2 mmol/L) [ ]2) New abnormal capillary refill (greater than 3 seconds) [ ]3) Other metabolic acidosis (arterial pH less than 7.35) not otherwise explained [ ]4) Reduced urine output [ ]5) Altered mental status [ ]6) Myocardial Ischemia [ ]v) Mean arterial pressure[A] less than 60 mm Hg [ ]vi) Mean arterial pressure[A] less than 70 mm Hg after 30 minutes of appropriate treatment (eg, fluid resuscitation) [ ]vii) IV inotropic or vasopressor medication required to maintain adequate blood pressure or perfusion [ ]viii) Sustained heart rate greater than 120 beats per minute in adult or child 6 years or older[B]] [ ]II. Hypertension requiring inpatient treatment as indicated by ANY ONE of the following(6)(7)(8): [ ]a) SBP greater than 220 mm Hg or DBP greater than 120 mm Hg despite treatment [ ]b) SBP greater than 140 mm Hg or DBP greater than 100 mm Hg with evidence of acute end organ damage as indicated by ANY ONE of the following: [ ]i) Encephalopathy [ ]ii) Acute renal failure as indicated by new onset of ANY ONE of the following(9)(10)(11)(12)(13): [ ]1) A 3-fold rise in serum creatinine from baseline [ ]2) Serum creatinine greater than 4 mg/dL ( 354 micromoles/L) with acute rise greater than 0.5 mg/dL (44.2 micromoles/L) [ ]3) Reduction of more than 75% in estimated glomerular filtration rate from baseline [ ]4) Estimated glomerular filtration rate less than 35 mL/min/1.73m2 (0.59 mL/sec/1.73m2) in child up to 18 years of age [ ]5) Cessation of urine output indicated by ALL of the following: [ ]A. Adequate volume status [ ]B. Inadequate urine output as indicated by ANY ONE of the following: [ ]a. Urine output less than 0.3 mL/kg/hr for 24 hours [ ]b. Anuria (urine output less than 0.1 mL/kg/hr) for 12 hours [ ]iii) Aortic dissection [ ]iv) Myocardial ischemia [ ]v) Left ventricular heart failure [ ]vi) Retinal hemorrhage [ ]vii) Other significant finding [ ]c) Hypertension in child requiring inpatient treatment as indicated by ALL of the following(14)(15)(16): [ ]i) Outpatient treatment not effective, not available, or not appropriate [ ]ii) SBP or DBP greater than 95th percentile for age [ ]iii) Evidence of acute end organ damage as indicated by ANY ONE of the following: [ ]1) Altered mental status [ ]2) Acute renal failure as indicated by new onset of ANY ONE of the following(9)(10)(11)(12)(13): [ ]A. A 3-fold rise in serum creatinine from baseline [ ]B. Serum creatinine greater than 4 mg/dL (354 micromoles/L) with acute rise greater than 0.5 mg/dL (44.2 micromoles/L) [ ]C. Reduction of more than 75% in estimated glomerular filtration rate from baseline [ ]D. Estimated glomerular filtration rate less than 35 mL/min/1.73m2 (0.59 mL/sec/1.73m2)in child up to 18 years of age [ ]E. Cessation of urine output indicated by ALL of the following: [ ]a. Adequate volume status [ ]b. Inadequate urine output as indicated by ANY ONE of the following: [ ]1) Urine output less than 0.3 mL/kg/hr for 24 hours [ ]2) Anuria (urine output less than 0.1 mL/kg/hr) for 12 hours [ ]3) Severe headache [ ]4) Visual disturbance [ ]5) Retinal hemorrhage [ ]6) Other significant finding [ ]III. Acute cardiac or peripheral ischemia as indicated by ANY ONE of the following: [ ]a) Acute coronary syndrome(17)(18) [ ]b) Acute peripheral ischemia (eg, pulseless, cool, mottled, or cyanotic extremity)(19) [ ]IV. Cardiac arrhythmias or findings of immediate concern indicated by ANY ONE of the following(20)(21): [ ]a) Heart rhythms that are inherently dangerous or unstable indicated by ANY ONE of the following(22)(23)(24): [ ]i) Resuscitated ventricular fibrillation or cardiac arrest [ ]ii) Ventricular escape rhythm [ ]iii) Sustained ventricular tachycardia (30 seconds or more of ventricular rhythm at greater than 100 beats per minute) [ ]iv) Nonsustained ventricular tachycardia and ANY ONE of the following: [ ]1) Suspected cardiac ischemia as cause or consequence of ventricular tachycardia [ ]2) In setting of acute myocarditis [ ]b) Unstable cardiac conduction defects indicated by ANY ONE of the following(24)(25)(26): [ ]i) Type II second-degree atrioventricular block [ ]ii) Third-degree atrioventricular block [ ]iii) New-onset left bundle branch block with suspected myocardial ischemia [ ]c) Any heart rhythm and ANY ONE of the following(22)(23)(27)(28)( 29): [ ] i) Continuous long-term ECG monitoring needed (eg, initiation of drug requiring monitoring for more than 24 hours) [ ] ii) Patient has automatic implanted cardioverter defibrillator that is repeatedly firing, malfunctioning, or in need of immediate adjustment of settings beyond the scope of ambulatory or observation care. [ ]d) Heart rhythms of concern due to ANY ONE of the following: [ ]i) Hypotension [ ]ii) Respiratory distress [ ]iii) Association with other significant symptoms (eg, bradycardia with syncope or ongoing dizziness, supraventricular tachycardia with chest pain) (27)(28) (30) [ ] V. Severe heart failure as indicated by ANY ONE of the following ( 31)(32): [ ]a) Respiratory distress [ ]b) Hypotension [ ]c) Anasarca (refractory to outpatient therapy) [ ]d) Cardiac arrhythmias of immediate concern [ ]e) Myocardial ischemia [ ]. Respiratory abnormalities, including ANY ONE of the following(33)(34) (35)(36): [ ]a) Respiratory rate greater than 30 breaths per minute unresponsive to treatment [A] [ ]b) New saturation of arterial oxygen less than 90% [ ]c) New partial pressure of carbon dioxide greater than 44 mm Hg ( 5.9 kPa) [ ]d) Supplemental oxygen or respiratory treatments needed that are new or not performable at other levels of care [ ]e) New-onset cyanosis [ ]f) Inability to protect airway [ ]g) Chronic lung disease with severe deterioration (not responsive to emergency and observation care treatment as appropriate) as indicated by ANY ONE of the following(34)(36 ): [ ]i) SaO2 5% below baseline in patient with chronic hypoxemia [ ]ii) New requirement for supplemental oxygen to keep SaO2 at baseline or acceptable level [ ]iii) Required supplemental oxygen performable only in acute inpatient setting [ ]iv) Severe airflow or ventilation abnormalities [ ]v) Previously mobile patient unable to walk between rooms [ ]vi Inability to eat or sleep due to dyspnea [ ]vii) Rapid rate of exacerbation onset [ ]viii) Altered mental status ]VII. Severe airflow or ventilation abnormalities (not responsive to emergency and observation care treatment as appropriate) as indicated by ANY ONE of the following(33)(34)(35)(37): [ ]a) PCO2 greater than 42 mm Hg (5.6 kPa) and pH less than 7.35 (new ) [ ]b) Documented PCO2 increased more than 5 mm Hg (0.7 kPa) from disease baseline [ ]c) Airflow measurements [B] less than 60% of previous best or predicted (eg, peak expiratory flow rate less than 300 L/minute) despite intensive emergent treatment [C] [ ]d) Required respiratory treatments that are performable only in acute inpatient setting [ ]VIII. Impending or actual respiratory arrest ( Also use Respiratory Failure GRG for severe respiratory disease and long-term mechanical ventilation patients) [ ]IX. Neurologic abnormalities, including ANY ONE of the following: [ ]a) New findings that suggest ANY ONE of the following: [ ]i) PROP SETTER infection(38) [ ]ii) Cerebral bleeding, ischemia, or vasospasm(39)(40) [ ]iii) Increased intracranial pressure, hydrocephalus, or cerebral edema(41)(42)(43) [ ]iv) Spinal cord injury(44) [ ]b) Uncontrolled seizures(45) [ ]c) New-onset coma (eg, Peyton coma scale score less than 9) or unexplained abnormal mental status (eg, Peyton coma scale score less than 14) [D](41)(46)(47) [ ]X. New-onset severe neurologic findings requiring inpatient care; examples include(42)(48)(49): [ ]a) Papilledema [ ]b) Cerebral edema [ ]c) Mass effect on CT scan [ ]XI. Suspected acute intra-abdominal process with peritoneal signs, abdominal mass, or similar findings (50)(51)(52) [ ]XII. Severe physiologic disorder remaining after emergency or observation level care (as appropriate) as indicated by ANY ONE of the following (53): [ ]a) Significant dehydration [ ]b) Diabetic ketoacidosis [ ]c) Hyperglycemic hyperosmolar state (eg, osmolality greater than 320 mOsm/kg (mmol/kg) [ ]d) Hypoglycemia [ ]e) Other (new) acid-base disorder with pH less than 7.35 or greater than 7.5(54) [ ]f) Thyroid storm (55) [ ]g) Myxedema coma (55) [ ]XIII. Abdominal abnormalities with ANY ONE of the following(56)(57): [ ]a) Absent bowel sounds with complete ileus [ ]b) Signs of intestinal obstruction or peritonitis [E] [ ]c) Nausea and vomiting that cannot be controlled with outpatient or observation care [ ]XIV. Acute renal failure as indicated by new onset of ANY ONE of the following(9)(10)(11)(12)(13): [ ]a) A 3-fold rise in serum creatinine from baseline [ ]b) Serum creatinine greater than 4 mg/dL (354 micromoles/L) with acute rise greater than 0.5 mg/dL (44.2 micromoles/L) [ ]c) Reduction of more than 75% in estimated glomerular filtration rate from baseline [ ]d) Estimated glomerular filtration rate less than 35 mL/min/ 1.73m2 (0.59 mL/sec/1.73m2) in child up to 18 years of age [ ]e) Cessation of urine output indicated by ALL of the following: [ ]i) Adequate volume status [ ]ii) Inadequate urine output as indicated by ANY ONE of the following: [ ]1) Urine output less than 0.3 mL/kg/hr for 24 hours [ ]2) Anuria (urine output less than 0.1 mL/kg/hr) for 12 hours [ ]XV. Significant uremic complications as indicated by ANY ONE of the following(58)(59)(60): [ ]a) Outpatient therapy is ineffective or not feasible for ANY ONE of the following: [ ]i) Severe heart failure [ ]ii) Severehypertension [ ]iii) Pleural effusion [ ]iv) Pericarditis or pericardial effusion [ ]b) Cardiac arrhythmias of immediate concern [ ]c) Intractable nausea or vomiting [ ]d) Recurrent seizures [ ]e) Encephalopathy [ ]f) Bleeding abnormalities (eg, platelet dysfunction) with active (eg, gastrointestinal) bleeding [ ]g) Dialysis indicated before long-term access or ambulatory arrangements can be made [ ]h) Significant metabolic or electrolyte abnormalities (eg, severe acidosis or hyperkalemia) [ ]XVI. High fever or other high-risk infection situation as indicated by ANY ONE of the following(61)(62)(63)(64): [ ]a) Outpatient and observation care antimicrobial treatment unavailable, not effective, or not appropriate [ ]b) Documented bacteremia [ ]c) Temperature greater than 40.5 degrees C (104.9 degrees F) ( oral) [ ]d) Temperature greater than 39.5 degrees C (103.1 degrees F) ( oral) or less than 36 degrees C (96.8 degrees F) (rectal) that does not respond to e treatment and observation care [ ] XVII. Temperature less than 95 degrees F (35 degrees C)(rectal)(65) [ ] XVIII. Severe nutritional abnormalities as indicated by ALL of the following (66)(67): [ ]a) Inability to tolerate or establish sufficient oral or other enteral nutrition in outpatient setting [ ]b) Parenteral nutrition regimen need that must be implemented on inpatient basis [ ] XIX. Severe electrolyte abnormalities indicated by ALL of the following(68) (69)(70): [ ]a) Electrolytes and associated findings are not as expected for patient baseline or acceptable treatment effects. [ ]b) Severe abnormalities indicated by ANY ONE of the following: [ ]i) Sodium less than 130 mEq/L (mmol/L) (new) [ ]ii)Sodium less than 135 mEq/L (mmol/L) with ANY ONE of the following: [ ]1) Uncorrectable (to near normal or chronic baseline) after trial of outpatient and emergency treatment [ ]2) Altered mental status [ ]3) Seizures [ ]4) Severe medical etiology requiring inpatient management (eg, heart failure, hypovolemia) [ ]iii) Sodium greater than 155 mEq/L (mmol/L) [ ]iv) Sodium greater than 150 mEq/L (mmol/L) with ANY ONE of the following: [ ]1) Uncorrectable (to near normal or chronic baseline) with outpatient and emergency treatment [ ]2) Altered mental status [ ]3) Seizures [ ]4) Severe medical etiology (eg, hypovolemia, diabetes insipidus) [ ]v) Potassium less than 2.5 mEq/L (mmol/L) despite outpatient and emergency treatment [ ]vi) Potassium less than 3 mEq/L (mmol/L) with ANY ONE of the following: [ ]1) Weakness [ ]2) Cardiac abnormality (eg, arrhythmia, conduction disturbance) [ ]3) Cardiac ischemia [ ]4) Ileus [ ]5) Ongoing medical cause requiring inpatient management (eg, acute renal wasting or SIADH) [ ]6) Other severe symptoms [ ]vii) Potassium greater than 6.5 mEq/L (mmol/L) [ ]viii) Potassium greater than 5 mEq/L (mmol/L) with ANY ONE of the following: [ ]1) Uncorrectable (to near normal or chronic baseline) with outpatient and emergency treatment [ ]2) Severe ECG findings [F] [ ]3) Acute worsening of renal failure (creatinine greater than 2.5 mg/dL (221 micromoles/L) or significant elevation for age and size) [ ]4) Severe weakness [ ]5) Severe medical etiology (eg, hemolysis, infection, drug overdose) [ ]ix) Calcium less than 7 mg/dL (1.75 mmol/L) despite outpatient and emergency treatment (72) [ ]x) Calcium less than 8 mg/dL (2 mmol/L) with significant symptoms or findings; examples include(72): [ ]1) Altered mental status [ ]2) Muscle spasms [ ]3) Seizures [ ]4) Breathing difficulty [ ]5) Cardiac abnormality (eg, arrhythmia or conduction disturbance) [ ]xi) Calcium greater than 14 mg/dL (3.5 mmol/L)(72) [ ]xii) Calcium greater than 12 mg/dL (3 mmol/L) with ANY ONE of the following(72): [ ]1) Uncorrectable (to near normal or chronic baseline) with outpatient and emergency treatment [ ]2) Significant dehydration or hypovolemia as indicated by ALL of the following(70)(73)(74): [ ]A. Not resolved with initial treatments [ ]B. Clinically significant dehydration as indicated by ANY ONE of the following: [ ]a. Vomiting refractory to outpatient treatment (ie, precluding oral rehydration) [ ]b. Inability to drink [ ]c. Hypernatremia or other electrolyte abnormality unable to be corrected with outpatient and emergency treatment [ ]d. Failure to remain hydrated with outpatient therapy [ ]e. Reduced urine output [ ]f. Hypotension [ ]g. Serious cause for dehydration requiring acute hospitalization (eg, bowel obstruction, increased intracranial pressure, infectious cause) [ ]h. Child with ANY ONE of the following(75): [ ]1) Severe abdominal tenderness [ ]2) Adequate care not available at home [ ]3) Severe dehydration ( greater than 9% loss of body weight) [ ]4) Significant symptoms or findings; examples include: [ ]A. Altered mental status [ ]B. Cardiac abnormality (eg, arrhythmia, conduction disturbance) [ ]C. Malignant etiology requiring inpatient treatment [ ]xiii) Phosphorus less than 1 mg/dL (0.32 mmol/L) [ ]xiv) Phosphorus less than 1.5 mg/dL (0.48 mmol/L) with ANY ONE of the following: [ ]1) Patient unresponsive to outpatient and emergency treatment [ ]2) Significant symptoms or findings; examples include: [ ]A. Weakness [ ]B. Altered mental status [ ]C. Breathing difficulty [ ]D. Seizures [ ]E. Rhabdomyolysis [ ]xv) Phosphorus greater than 10 mg/dL (3.2 mmol/L) [ ]xvi) Phosphorus greater than 4.5 mg/dL (1.45 mmol/L) (new) with ANY ONE of the following: [ ]1) Severe medical etiology (eg, crush injury, acute renal failure) [ ]2) Associated hypocalcemia with significant findings; examples include: [ ]A. Neurologic symptoms [ ]B. Altered mental status [ ]C. Muscle spasms [ ]D. Seizures [ ]E. Breathing difficulty [ ]F. Cardiac abnormality (eg, arrhythmia, conduction disturbance) [ ]xvii) Magnesium less than 1 mg/dL (0.41 mmol/L) [ ]xviii) Magnesium less than 1.5 mg/dL (0.62 mmol/L) with ANY ONE of the following: [ ]1) Patient unresponsive to outpatient and emergency treatment [ ]2) Associated hypocalcemia with significant findings; examples include: [ ]A. Altered mental status [ ]B. Muscle spasms [ ]C. Seizures [ ]D. Breathing difficulty [ ]E. Cardiac abnormality (eg, arrhythmia , conduction disturbance) [ ]3) Associated hypokalemia (potassium less than 3 mEq/L (mmol/L)) with risk of arrhythmia [ ]xix) Magnesium greater than 4 mEq/L (2 mmol/L) [ ]xx) Magnesium greater than 2.5 mEq/L (1.25 mmol/L) with significant symptoms or findings; examples include: [ ]1) Weakness [ ]2) Altered mental status [ ]3) Cardiac abnormality (eg, arrhythmia, conduction disturbance) [ ]4) Breathing difficulty [ ]5) Severe medical etiology (eg, renal failure, hypovolemia) [ ]xxi) Uric acid greater than 20 mg/dL (1190 micromoles/L)(76) [ ]xxii) Uric acid greater than 8 mg/dL (476 micromoles/L) with significant symptoms or findings of tumor lysis syndrome; examples include(76): [ ]1) Creatinine greater than 1.5 times upper limit of normal [ ]2) Cardiac abnormality (eg, arrhythmia, conduction disturbance) [ ]3) Seizure [ ]XX. Acute blood loss causing significant abnormality as indicated by ANY ONE of the following(77)(78): [ ]a) Hemoglobin less than 10 g/dL (100 g/L) (not baseline) [ ]b) Hematocrit less than 30% (0.30) (not baseline) [ ]c) Repeat hematocrit decreased more than 2% (0.02) [ ]d) Uncontrolled bleeding [ ]XXI. Severe anemia indicated by ANY ONE of the following(78)(79): [ ]a) Altered mental status [ ]b) Chest pain [ ]c) Exertional dyspnea [ ]d) Syncope [ ]e) Other findings suggesting inadequate perfusion [ ]f) Treatment with transfusion or volume replacement is ineffective at resolving ANY ONE of the following [G]: [ ]i) Tachycardia for age [ ]ii) Orthostatic vital sign changes as indicated by ANY ONE of the following(80): [ ]1) Fall in SBP of 20 mm Hg or more 1 to 3 minutes after patient sits or stands from recumbent position [ ]2) Fall in DBP of 10 mm Hg or more 1 to 3 minutes after patient sits or stands from recumbent position [ ]XXII. High-risk low platelet count as indicated by ANY ONE of the following( 81)(82): [ ]a) Severe or life-threatening bleeding (eg, intracranial, major gastrointestinal, or extensive mucosal bleeding), with any reduced platelet count [ ]b) Platelet count less than 20,000/mm3 (20 x109/L) with any active bleeding [ ]c) Platelet count less than 10,000/mm3 (10 x109/L) with minor purpura or petechiae [ ]d) Platelet count less than 5000/mm3 (5 x109/L) [ ]e) Low platelet count with hemolytic anemia [ ]XXIII. Disseminated intravascular coagulation(77)(83) [ ]XXIV. Severe adverse drug or systemic toxin reaction requiring inpatient treatment; examples include(84)(85): [ ]a) Serotonin syndrome(86) [ ]b) Neuroleptic malignant syndrome(86) [ ]c) Cholinergic syndrome with severe symptoms (eg, bronchorrhea, weakness, mental status changes, seizures) [ ]d) Sympathetic syndrome with severe symptoms (eg, seizures, mental status changes, cardiac dysrhythmias) [ ]e) Anticholinergic syndrome [ ]XXV. Severe pain requiring acute inpatient management as indicated by ALL of the following (87)(88)(89): [ ]a) Continuous or frequent (eg, every 2 to 4 hours) parenteral analgesics required [H] [ ]b) Rapid improvement expected from treatment or acute intervention (eg, surgery, anesthesia procedure) [ ]XXVI.Severe behavioral health issues judged unmanageable at a lower level of care (eg, residential) in a patient who is ANY ONE of the following(91) [ ]a) Acutely suicidal [ ]b) A danger to self (eg, self-mutilating or suicidal behavior) [ ]c) A danger to others (eg, assaultive or homicidal behavior) [ ]d) Incapacitated because of grave disability (eg, inability to provide for self at lower level of care) (92) [X]XXVII. Inpatient monitoring needed; examples include(1)(3)(87)(93)(94)(95)(96 ): [X]a) Vital signs, neurologic signs, or vascular checks more frequently than every 4 hours [ ]b) Cardiac or respiratory monitoring beyond the scope (eg, over 24 hours) of observation care [ ]c) Pulmonary artery catheter monitoring [ ]d) Suspected compartment syndrome(97) (98) [ ]e) Cerebral bleeding, hydrocephalus, or vasospasm monitoring [ ]f) Increased intracranial pressure or cerebral edema monitoring [ ]g) monitoring [ ]XXVIII. Treatment requiring inpatient care; examples include: [ ]a) IV fluid to replace significant ongoing losses (greater than 3 L/m2 per day)(53) [ ]b) High concentration oxygen (greater than 40%)(33)(99)(100) [ ]c) Frequent respiratory therapy (more frequently than every 4 hours) to maintain airflow rates greater than 60% of baseline(33)(99)(100) [ ]d) Epidural analgesia(87) [ ]e) IV anticoagulation, vasoactive, or antiarrhythmic medication(19 )(23) [ ]f) Acute thrombolytics (generally require 24 hours of observation )(101)(102) [ ]XXIX. Emergency procedures needed; examples include: [ ]a) Emergency inpatient surgery [ ]b) Temporary pacemaker placement(103) [ ]c) Chest tube placement with active evacuation (eg, suction, drainage)(104) [ ]d) Emergent cardioversion(105) [ ]e) Emergent cardiac or vascular procedures (eg, cardiac catheterization, angioplasty) (17)(18) [ ]f) Emergent dialysis access placement and institution(10)(106) [ ]g) Emergent pericardiocentesis(107) [ ]h) Emergent plasmapheresis or leukapheresis(83) [ ]i) Emergent tracheostomy The original [employer] content created by [employer] has been revised. The portions of the content which have been revised are identified through the use of italic text or in bold, and [facility] has neither reviewed nor approved the modified material. All other unmodified content is copyright [employer]. Please see references footnoted in the original [facility] [employer] edition 2016 Admission Criteria Met?: Yes RAMONA BROWN Apr 24, 2017 05:57
[2017-04-24] MEDS: LEVOTHYROXINE 175 MCG TABLET PO SCH (06:39)
[2017-04-24 07:00] VITALS: BP 126/61
[2017-04-24] MEDS ORDERED: CLOPIDOGREL BISULFATE 75 MG TABLET PO SCH (07:00)
[2017-04-24] MEDS: INSULIN ASPART 300 UNITS/3 ML INSULN.PEN SQ SCH ×3 (08:00→17:00)
[2017-04-24] MEDS ORDERED: LIDOCAINE 2% PF Vial for OR 5 ML VIAL. ONE (09:11)
[2017-04-24] MEDS ORDERED: DEXAMETHASONE SOD PHOS 20 MG/5 ML VIAL. ONE (09:11)
[2017-04-24] MEDS ORDERED: PROPOFOL 20 ML IV ONE (09:11)
[2017-04-24] MEDS ORDERED: ONDANSETRON PF 4 MG/2 ML VIAL. ONE (09:11)
[2017-04-24] MEDS ORDERED: fentaNYL PF VIAL 100 MCG/2 ML VIAL ONE (09:11)
[2017-04-24] MEDS: METOPROLOL TART IMMED RELEASE 50 MG TABLET. PO SCH ×2 (09:48→20:42)
[2017-04-24] MEDS ORDERED: LIDOCAINE 1% PF 2 ML VIAL. ONE ×2 (10:37→10:40)
--- NOTE | 2017-04-24 10:58 | PDOC2 ---
CONSULT Date of Consult Date of Consult DATE: 04/24/17 TIME: 10:55 Reason for Consult Reason for Consult: ANAISLE Referring Physician Referring Physician: ESRD Identification/Chief Complaint Chief Complaint LEFT LEG PAIN Problems: Source Source: Chart review, Patient History of Present Illness Reason for Visit: THIS IS A 51 YR OLD HERE FOR AFTER GOING TO THE WOUND CARE CLINIC. HE HAS HAD A NON HEALING LLE WOUND FOR SOME TIME. IT IS NOW DEEMED NECESSARY TO HAVE A L BKA. HE IS DIRECTLY ADMITTED. LABS ARE C/W ESRD Past Medical History Cardiovascular: AFIB, CAD, CHF, HTN, DE, Hyperlipidemia, Other Pulmonary: Asthma, Other CENTRAL NERVOUS SYSTEM: CVA, Dementia, Periperal neuropathy, Seizure, TIA, Vertigo GI: Diverticulosis, Hemorrhoids Heme/Onc: Anemia NOS Hepatobiliary: No pertinent hx Psych: Anxiety, Depression Infectious disease: No pertinent hx Renal/: Chronic renal insuff Endocrine: Diabetes, Hypothyroidism Past Surgical History Past Surgical History: Cataract Removal, Total knee replacement, Other Family History Family History: Hypertension Social History ALCOHOL: none Drugs: None Lives: with Family Current Medications Current Medications Current Medications Piperacillin Sod/ Tazobactam Sod (Zosyn Per Pharmacy) 1 each PRN DAILY PRN MC SEE COMMENTS; Start 04/23/17 at 18:30; Status UNV Vancomycin HCl (Vanco Per Pharmacy) 1 each PRN DAILY PRN MC SEE COMMENTS Last administered on 04/23/17 18:48; Start 04/23/17 at 18:30 Vancomycin HCl 2 gm/Sodium Chloride 500 ml @ 250 mls/hr 1X ONCE IV Last administered on 04/23/17 21:05; Start 04/23/17 at 19:00; Stop 04/23/17 at 20:59 ; Status DC Meropenem 500 mg/ Sodium Chloride 50 ml @ 100 mls/hr Q24H IV Last administered on 04/23/17 20:00; Start 04/23/17 at 20:00 Vancomycin HCl 1 each 1X ONCE MC ; Start 04/25/17 at 05:00; Stop 04/25/17 at 05 :01 Insulin Aspart (NovoLOG) 0-7 UNITS TIDWMEALS SQ ; Start 04/23/17 at 20:00 Dextrose (Dextrose 50%-Water Syringe) 12.5 gm PRN Q15MIN PRN IV SEE COMMENTS; Start 04/23/17 at 20:00 Alprazolam (Xanax) 0.25 mg PRN Q6HRS PRN PO ANXIETY / AGITATION; Start at 20:00 Calcium Carbonate/ Glycine (Oscal) 500 mg TIDWMEALS PO ; Start 04/24/17 at 08:00 Citalopram Hydrobromide (CeleXA) 20 mg DAILY PO ; Start 04/24/17 at 09:00 Clopidogrel Bisulfate (Plavix) 75 mg DAILY07 PO ; Start 04/24/17 at 07:00; Stop 04/24/17 at 07:00; Status DC Diclofenac Sodium (Voltaren) 1 ayaz BID TP ; Start 04/23/17 at 21:00 Ergocalciferol (Vitamin D2) 50,000 unit Tu PO ; Start 05/01/17 at 09:00 Famotidine (Pepcid) 20 mg HS PO Last administered on 04/23/17 21:01; Start 06/29 at 21:00 Vitamin B Complex/ Vitamin C (Fernanda-Jimmy) 1 tab DAILY PO ; Start 04/24/17 at 09: 00 Isosorbide Mononitrate (Imdur) 30 mg DAILY PO ; Start 04/24/17 at 09:00 Levetiracetam (Keppra) 500 mg BID PO Last administered on 04/23/17 21:01; Start 04/23/17 at 21:00 Levothyroxine Sodium (Synthroid) 175 mcg DAILY07 PO ; Start 04/24/17 at 07:00 Lidocaine (Lidoderm) 1 patch DAILY TD ; Start 04/24/17 at 09:00 Meclizine HCl (Antivert) 12.5 mg TID PO Last administered on 04/23/17 21:01; Start 04/23/17 at 21:00 Metoprolol Tartrate (Lopressor) 50 mg BID PO Last administered on 04/24/17 09: 48; Start 04/23/17 at 21:00 Nitroglycerin (Nitrostat) 0.4 mg PRN Q5MIN PRN SL CHEST PAIN; Start 04/23/17 at 20:00 Ropinirole HCl (Requip) 0.25 mg DAILY PO ; Start 04/24/17 at 09:00 Sevelamer Carbonate (Renvela) 2,400 mg TIDWMEALS PO ; Start 04/24/17 at 08:00 Sodium Bicarbonate (Sodium Bicarbonate) 1,300 mg BID PO ; Start 04/23/17 at 21: 00 Sucralfate (Carafate) 1 gm BID PO Last administered on 04/23/17 21:01; Start 04/23/17 at 21:00 Trazodone HCl (Desyrel) 50 mg QHS PO Last administered on 04/23/17 21:01; Start 04/23/17 at 21:00 Zolpidem Tartrate (Ambien) 5 mg PRN QHS PRN PO SLEEP; Start 04/23/17 at 20:00 Dexamethasone Sodium Phosphate (Decadron) 20 mg STK-MED ONCE .ROUTE ; Start 07/29 at 09:11; Stop 04/24/17 at 09:12; Status DC Ondansetron HCl (Zofran) 4 mg STK-MED ONCE .ROUTE ; Start 04/24/17 at 09:11; Stop 04/24/17 at 09:12; Status DC Propofol 20 ml @ As Directed STK-MED ONCE IV ; Start 04/24/17 at 09:11; Stop 07/29 at 09:12; Status DC Lidocaine HCl (Lidocaine Pf 2% Vial) 5 ml STK-MED ONCE .ROUTE ; Start 04/24/17 at 09:11; Stop 04/24/17 at 09:12; Status DC Fentanyl Citrate (Fentanyl 2ml Vial) 100 mcg STK-MED ONCE .ROUTE ; Start at 09:11; Stop 04/24/17 at 09:12; Status DC Lidocaine HCl (Xylocaine-Mpf 1% Vial) 2 ml STK-MED ONCE .ROUTE ; Start 04/24/17 at 10:37; Stop 04/24/17 at 10:38; Status DC Active Scripts Active Levetiracetam 500 Mg Tablet 500 Mg PO BID Lidoderm (Lidocaine) 700 Mg Adh..patch 1 Patch TD DAILY Metoprolol Tartrate 50 Mg Tablet 50 Mg PO BID Synthroid (Levothyroxine Sodium) 175 Mcg Tablet 175 Mcg PO DAILY07 Isosorbide Mononitrate Er (Isosorbide Mononitrate) 30 Mg Tab.er.24h 30 Mg PO DAILY Reported Sodium Bicarbonate 650 Mg Tablet 2 Tab PO BID on dialysis days sunday, and sunday Meclizine Hcl 12.5 Mg Tablet 1 Tab PO TID Calcium Carbonate 500 Mg Tablet 500 Mg PO TIDWMEALS Ambien (Zolpidem Tartrate) 5 Mg Tablet 5 Mg PO HS PRN Alprazolam 0.25 Mg Tablet 1 Tab PO PRN Ventolin Hfa Inhaler (Albuterol Sulfate) 18 Gm Hfa.aer.ad 1 Puff INH Q6HRS PRN Ropinirole Hcl 0.25 Mg Tablet 0.25 Mg PO Citalopram Hbr (Citalopram Hydrobromide) 20 Mg Tablet 1 Tab PO DAILY Trazodone Hcl 50 Mg Tablet 0.5-1 Tab PO QHS Risperidone 0.5 Mg Tablet 1 Tab PO QHS Famotidine 20 Mg Tablet 20 Mg PO HS Coumadin (Warfarin Sodium) 5 Mg Tablet 1 Tab PO DAILY Nephro-Jimmy Tablet (Folic Acid/Vitamin B Comp W-C) 0.8 Mg Tablet 1 Tab PO DAILY Carafate (Sucralfate) 1 Gm Tablet 1 Tab PO BID Nitrostat (Nitroglycerin) 0.4 Mg Tab.subl 0.4 Mg SL PRN Q5MIN PRN Voltaren (Diclofenac Sodium) 100 Gm Gel..gram. 1 Gm TP BID Clopidogrel (Clopidogrel Bisulfate) 75 Mg Tablet 75 Mg PO DAILY07 Renvela (Sevelamer Carbonate) 800 Mg Tablet 2,400 Tab PO TIDWMEALS Vitamin D2 (Ergocalciferol (Vitamin D2)) 50,000 Unit Capsule 50,000 Unit PO WEEKLY weekly on Sunday Atorvastatin Calcium 80 Mg Tablet 80 Mg PO HS Allergies Allergies: Coded Allergies: iodine (Verified Allergy, Severe, THROAT SWELLING, 04/04/17) lisinopril (Verified Allergy, Severe, 04/04/17) Fish Containing Products (Verified Allergy, Intermediate, 04/04/17) Penicillins (Verified Allergy, Intermediate, SEE COMMENT, 04/23/17) Tolerates meropenem piperacillin (Verified Allergy, Intermediate, Hives, 04/23/17) Tolerates meropenem tazobactam (Verified Allergy, Intermediate, 04/04/17) ROS General: YES: Fatigue, Malaise, Appetite PSYCHOLOGICAL ROS: YES: Anxiety, Depression Eyes: Yes Decreased vision HEENT: YES: Heacaches Respiratory: YES: Cough Gastrointestinal: Yes Constipation Genitourinary: YES Other (ANURIA) Musculoskeletal: Yes Joint Stiffness, Yes Muscle Pain, Yes Muscular Weakness Neurological: Yes Weakness Skin: Yes Dry Skin, Yes Skin Lesion Changes Physical Exam General: Alert, Oriented X3, Cooperative, No acute distress HEENT: Atraumatic, PERRLA, EOMI, Mucous membr. moist/pink Lungs: Clear to auscultation, Normal air movement Heart: Regular rate, Normal S1, Normal S2 Abdomen: Normal bowel sounds, Soft, No tenderness Extremities: No clubbing Skin: No breakdown, Other (LLE WOUND-CHRONIC) Psych/Mental Status: Mental status NL, Mood NL MUSCULOSKELETAL: Other (L TMA HX AND WOUND WITH DRAINAGE) Vitals VITALS Vital Signs Date Time Temp Pulse Resp B/P (MAP) Pulse Ox O2 Delivery O2 Flow Rate FiO2 04/24/17 09:48 85 126/61 04/24/17 07:00 98.8 20 98 Room Air 98.8 Labs Labs Laboratory Tests Test 04/23/17 20:59 04/23/17 21:10 04/24/17 05:00 04/24/17 07:13 Glucose (Fingerstick) 116 mg/dL (70-99) 93 mg/dL (70-99) Prothrombin Time 14.8 SEC (11.7-14.0) Prothromb Time International Ratio 1.2 (0.8-1.1) Sodium Level 131 mmol/L (136-145) Potassium Level 4.7 mmol/L (3.5-5.1) Chloride Level 93 mmol/L (98-107) Carbon Dioxide Level 30 mmol/L (21-32) Anion Gap 8 (6-14) Blood Urea Nitrogen 45 mg/dL (8-26) Creatinine 6.7 mg/dL (0.7-1.3) Estimated GFR (Cockcroft-Gault) 10.6 BUN/Creatinine Ratio 7 (6-20) Glucose Level 124 mg/dL (70-99) Calcium Level 8.0 mg/dL (8.5-10.1) Total Bilirubin 0.9 mg/dL (0.2-1.0) Aspartate Amino Transf (AST/SGOT) 21 U/L (15-37) Alanine Aminotransferase (ALT/SGPT) 9 U/L (16-63) Alkaline Phosphatase 92 U/L (46-116) Total Protein 9.1 g/dL (6.4-8.2) Albumin 2.6 g/dL (3.4-5.0) Albumin/Globulin Ratio 0.4 (1.0-1.7) White Blood Count 7.6 x10^3/uL (4.0-11.0) Red Blood Count 2.66 x10^6/uL (4.30-5.70) Hemoglobin 8.3 g/dL (13.0-17.5) Hematocrit 24.0 % (39.0-53.0) Mean Corpuscular Volume 90 fL (79-100) Mean Corpuscular Hemoglobin 31 pg (25-35) Mean Corpuscular Hemoglobin Concent 35 g/dL (31-37) Red Cell Distribution Width 15.6 % (11.5-14.5) Platelet Count 165 x10^3/uL (140-400) Neutrophils (%) (Auto) 73 % (31-73) Lymphocytes (%) (Auto) 13 % (24-48) Monocytes (%) (Auto) 12 % (0-9) Eosinophils (%) (Auto) 2 % (0-3) Basophils (%) (Auto) 1 % (0-3) Neutrophils # (Auto) 5.5 x10^3uL (1.8-7.7) Lymphocytes # (Auto) 1.0 x10^3/uL (1.0-4.8) Monocytes # (Auto) 0.9 x10^3/uL (0.0-1.1) Eosinophils # (Auto) 0.1 x10^3/uL (0.0-0.7) Basophils # (Auto) 0.1 x10^3/uL (0.0-0.2) Laboratory Tests Test 04/23/17 20:59 04/23/17 21:10 04/24/17 05:00 04/24/17 07:13 Glucose (Fingerstick) 116 mg/dL (70-99) 93 mg/dL (70-99) Prothrombin Time 14.8 SEC (11.7-14.0) Prothromb Time International Ratio 1.2 (0.8-1.1) Sodium Level 131 mmol/L (136-145) Potassium Level 4.7 mmol/L (3.5-5.1) Chloride Level 93 mmol/L (98-107) Carbon Dioxide Level 30 mmol/L (21-32) Anion Gap 8 (6-14) Blood Urea Nitrogen 45 mg/dL (8-26) Creatinine 6.7 mg/dL (0.7-1.3) Estimated GFR (Cockcroft-Gault) 10.6 BUN/Creatinine Ratio 7 (6-20) Glucose Level 124 mg/dL (70-99) Calcium Level 8.0 mg/dL (8.5-10.1) Total Bilirubin 0.9 mg/dL (0.2-1.0) Aspartate Amino Transf (AST/SGOT) 21 U/L (15-37) Alanine Aminotransferase (ALT/SGPT) 9 U/L (16-63) Alkaline Phosphatase 92 U/L (46-116) Total Protein 9.1 g/dL (6.4-8.2) Albumin 2.6 g/dL (3.4-5.0) Albumin/Globulin Ratio 0.4 (1.0-1.7) White Blood Count 7.6 x10^3/uL (4.0-11.0) Red Blood Count 2.66 x10^6/uL (4.30-5.70) Hemoglobin 8.3 g/dL (13.0-17.5) Hematocrit 24.0 % (39.0-53.0) Mean Corpuscular Volume 90 fL (79-100) Mean Corpuscular Hemoglobin 31 pg (25-35) Mean Corpuscular Hemoglobin Concent 35 g/dL (31-37) Red Cell Distribution Width 15.6 % (11.5-14.5) Platelet Count 165 x10^3/uL (140-400) Neutrophils (%) (Auto) 73 % (31-73) Lymphocytes (%) (Auto) 13 % (24-48) Monocytes (%) (Auto) 12 % (0-9) Eosinophils (%) (Auto) 2 % (0-3) Basophils (%) (Auto) 1 % (0-3) Neutrophils # (Auto) 5.5 x10^3uL (1.8-7.7) Lymphocytes # (Auto) 1.0 x10^3/uL (1.0-4.8) Monocytes # (Auto) 0.9 x10^3/uL (0.0-1.1) Eosinophils # (Auto) 0.1 x10^3/uL (0.0-0.7) Basophils # (Auto) 0.1 x10^3/uL (0.0-0.2) Assessment/Plan Assessment/Plan IMP LEFT LE INFECTION-CHRONIC AND NOT HEALING ANEMIA DM II HTN ESRD PLAN HD TODAY UF TO DW ANTIBIOTICS START ARANESP LEFT BKA TODAY GRACE VILLEDA MD Apr 24, 2017 10:58
[2017-04-24] MEDS: IV NORMAL SALINE 1000ML BAG 1,000 ML IV SCH (11:02)
[2017-04-24] MEDS ORDERED: BUPIVACAINE-EPI 0.25%-1:200000 MPF 30 ML VIAL. ONE (11:03)
[2017-04-24] MEDS: CALCIUM CARBONATE 500 MG TABLET PO SCH ×3 (12:00→17:00)
[2017-04-24] MEDS: SEVELAMER CARBONATE 800 MG TABLET. PO SCH ×3 (12:00→17:00)
--- NOTE | 2017-04-24 12:13 | PDOC ---
PROGRESS NOTES Chief Complaint Chief Complaint Peripheral vascular disease L LE infection ESRD Hyperlipidemia HTN DM2 Depression Anemia History of Present Illness History of Present Illness Pt was not in room. Went to OR and pt was with his . Pt was getting ready for surgery. Vitals Vitals Vital Signs Date Time Temp Pulse Resp B/P (MAP) Pulse Ox O2 Delivery O2 Flow Rate FiO2 04/24/17 10:55 98.2 81 12 130/60 97 Room Air 98.2 Physical Exam General: Alert, Oriented X3, Cooperative, No acute distress Heart: Regular rate, Normal S1, Normal S2 Lungs: Clear Abdomen: Normal bowel sounds, Soft, No tenderness Extremities: No clubbing, Other (L LE infection) Skin: No breakdown, Other (LLE WOUND-CHRONIC) Labs LABS Laboratory Tests Test 04/23/17 20:59 04/23/17 21:10 04/24/17 05:00 04/24/17 07:13 Glucose (Fingerstick) 116 mg/dL (70-99) 93 mg/dL (70-99) Prothrombin Time 14.8 SEC (11.7-14.0) Prothromb Time International Ratio 1.2 (0.8-1.1) Sodium Level 131 mmol/L (136-145) Potassium Level 4.7 mmol/L (3.5-5.1) Chloride Level 93 mmol/L (98-107) Carbon Dioxide Level 30 mmol/L (21-32) Anion Gap 8 (6-14) Blood Urea Nitrogen 45 mg/dL (8-26) Creatinine 6.7 mg/dL (0.7-1.3) Estimated GFR (Cockcroft-Gault) 10.6 BUN/Creatinine Ratio 7 (6-20) Glucose Level 124 mg/dL (70-99) Calcium Level 8.0 mg/dL (8.5-10.1) Total Bilirubin 0.9 mg/dL (0.2-1.0) Aspartate Amino Transf (AST/SGOT) 21 U/L (15-37) Alanine Aminotransferase (ALT/SGPT) 9 U/L (16-63) Alkaline Phosphatase 92 U/L (46-116) Total Protein 9.1 g/dL (6.4-8.2) Albumin 2.6 g/dL (3.4-5.0) Albumin/Globulin Ratio 0.4 (1.0-1.7) White Blood Count 7.6 x10^3/uL (4.0-11.0) Red Blood Count 2.66 x10^6/uL (4.30-5.70) Hemoglobin 8.3 g/dL (13.0-17.5) Hematocrit 24.0 % (39.0-53.0) Mean Corpuscular Volume 90 fL (79-100) Mean Corpuscular Hemoglobin 31 pg (25-35) Mean Corpuscular Hemoglobin Concent 35 g/dL (31-37) Red Cell Distribution Width 15.6 % (11.5-14.5) Platelet Count 165 x10^3/uL (140-400) Neutrophils (%) (Auto) 73 % (31-73) Lymphocytes (%) (Auto) 13 % (24-48) Monocytes (%) (Auto) 12 % (0-9) Eosinophils (%) (Auto) 2 % (0-3) Basophils (%) (Auto) 1 % (0-3) Neutrophils # (Auto) 5.5 x10^3uL (1.8-7.7) Lymphocytes # (Auto) 1.0 x10^3/uL (1.0-4.8) Monocytes # (Auto) 0.9 x10^3/uL (0.0-1.1) Eosinophils # (Auto) 0.1 x10^3/uL (0.0-0.7) Basophils # (Auto) 0.1 x10^3/uL (0.0-0.2) Review of Systems Review of Systems pt mildly sedated c/o fatigue c/o anxiety- nervous about operation Assessment and Plan Assessmemt and Plan Peripheral vascular disease: continue home meds. Monitor L LE infection: L BKA. Pain meds prn ESRD: continue dialysis Hyperlipidemia: continue to monitor levels. HTN: monitor DM2: monitor. Continue meds Depression: continue celexa Anemia: continue to monitor Problems: Comment Review of Relevant I have reviewed the following items lila (where applicable) has been applied. Labs Laboratory Tests Test 04/23/17 20:59 04/23/17 21:10 04/24/17 05:00 04/24/17 07:13 Glucose (Fingerstick) 116 mg/dL (70-99) 93 mg/dL (70-99) Prothrombin Time 14.8 SEC (11.7-14.0) Prothromb Time International Ratio 1.2 (0.8-1.1) Sodium Level 131 mmol/L (136-145) Potassium Level 4.7 mmol/L (3.5-5.1) Chloride Level 93 mmol/L (98-107) Carbon Dioxide Level 30 mmol/L (21-32) Anion Gap 8 (6-14) Blood Urea Nitrogen 45 mg/dL (8-26) Creatinine 6.7 mg/dL (0.7-1.3) Estimated GFR (Cockcroft-Gault) 10.6 BUN/Creatinine Ratio 7 (6-20) Glucose Level 124 mg/dL (70-99) Calcium Level 8.0 mg/dL (8.5-10.1) Total Bilirubin 0.9 mg/dL (0.2-1.0) Aspartate Amino Transf (AST/SGOT) 21 U/L (15-37) Alanine Aminotransferase (ALT/SGPT) 9 U/L (16-63) Alkaline Phosphatase 92 U/L (46-116) Total Protein 9.1 g/dL (6.4-8.2) Albumin 2.6 g/dL (3.4-5.0) Albumin/Globulin Ratio 0.4 (1.0-1.7) White Blood Count 7.6 x10^3/uL (4.0-11.0) Red Blood Count 2.66 x10^6/uL (4.30-5.70) Hemoglobin 8.3 g/dL (13.0-17.5) Hematocrit 24.0 % (39.0-53.0) Mean Corpuscular Volume 90 fL (79-100) Mean Corpuscular Hemoglobin 31 pg (25-35) Mean Corpuscular Hemoglobin Concent 35 g/dL (31-37) Red Cell Distribution Width 15.6 % (11.5-14.5) Platelet Count 165 x10^3/uL (140-400) Neutrophils (%) (Auto) 73 % (31-73) Lymphocytes (%) (Auto) 13 % (24-48) Monocytes (%) (Auto) 12 % (0-9) Eosinophils (%) (Auto) 2 % (0-3) Basophils (%) (Auto) 1 % (0-3) Neutrophils # (Auto) 5.5 x10^3uL (1.8-7.7) Lymphocytes # (Auto) 1.0 x10^3/uL (1.0-4.8) Monocytes # (Auto) 0.9 x10^3/uL (0.0-1.1) Eosinophils # (Auto) 0.1 x10^3/uL (0.0-0.7) Basophils # (Auto) 0.1 x10^3/uL (0.0-0.2) Laboratory Tests Test 04/23/17 20:59 04/23/17 21:10 04/24/17 05:00 04/24/17 07:13 Glucose (Fingerstick) 116 mg/dL (70-99) 93 mg/dL (70-99) Prothrombin Time 14.8 SEC (11.7-14.0) Prothromb Time International Ratio 1.2 (0.8-1.1) Sodium Level 131 mmol/L (136-145) Potassium Level 4.7 mmol/L (3.5-5.1) Chloride Level 93 mmol/L (98-107) Carbon Dioxide Level 30 mmol/L (21-32) Anion Gap 8 (6-14) Blood Urea Nitrogen 45 mg/dL (8-26) Creatinine 6.7 mg/dL (0.7-1.3) Estimated GFR (Cockcroft-Gault) 10.6 BUN/Creatinine Ratio 7 (6-20) Glucose Level 124 mg/dL (70-99) Calcium Level 8.0 mg/dL (8.5-10.1) Total Bilirubin 0.9 mg/dL (0.2-1.0) Aspartate Amino Transf (AST/SGOT) 21 U/L (15-37) Alanine Aminotransferase (ALT/SGPT) 9 U/L (16-63) Alkaline Phosphatase 92 U/L (46-116) Total Protein 9.1 g/dL (6.4-8.2) Albumin 2.6 g/dL (3.4-5.0) Albumin/Globulin Ratio 0.4 (1.0-1.7) White Blood Count 7.6 x10^3/uL (4.0-11.0) Red Blood Count 2.66 x10^6/uL (4.30-5.70) Hemoglobin 8.3 g/dL (13.0-17.5) Hematocrit 24.0 % (39.0-53.0) Mean Corpuscular Volume 90 fL (79-100) Mean Corpuscular Hemoglobin 31 pg (25-35) Mean Corpuscular Hemoglobin Concent 35 g/dL (31-37) Red Cell Distribution Width 15.6 % (11.5-14.5) Platelet Count 165 x10^3/uL (140-400) Neutrophils (%) (Auto) 73 % (31-73) Lymphocytes (%) (Auto) 13 % (24-48) Monocytes (%) (Auto) 12 % (0-9) Eosinophils (%) (Auto) 2 % (0-3) Basophils (%) (Auto) 1 % (0-3) Neutrophils # (Auto) 5.5 x10^3uL (1.8-7.7) Lymphocytes # (Auto) 1.0 x10^3/uL (1.0-4.8) Monocytes # (Auto) 0.9 x10^3/uL (0.0-1.1) Eosinophils # (Auto) 0.1 x10^3/uL (0.0-0.7) Basophils # (Auto) 0.1 x10^3/uL (0.0-0.2) Medications Current Medications Piperacillin Sod/ Tazobactam Sod (Zosyn Per Pharmacy) 1 each PRN DAILY PRN MC SEE COMMENTS; Start 04/23/17 at 18:30; Status UNV Vancomycin HCl (Vanco Per Pharmacy) 1 each PRN DAILY PRN MC SEE COMMENTS Last administered on 04/23/17 18:48; Start 04/23/17 at 18:30 Vancomycin HCl 2 gm/Sodium Chloride 500 ml @ 250 mls/hr 1X ONCE IV Last administered on 04/23/17 21:05; Start 04/23/17 at 19:00; Stop 04/23/17 at 20:59 ; Status DC Meropenem 500 mg/ Sodium Chloride 50 ml @ 100 mls/hr Q24H IV Last administered on 04/23/17 20:00; Start 04/23/17 at 20:00 Vancomycin HCl 1 each 1X ONCE MC ; Start 04/25/17 at 05:00; Stop 04/25/17 at 05 :01 Insulin Aspart (NovoLOG) 0-7 UNITS TIDWMEALS SQ ; Start 04/23/17 at 20:00 Dextrose (Dextrose 50%-Water Syringe) 12.5 gm PRN Q15MIN PRN IV SEE COMMENTS; Start 04/23/17 at 20:00 Alprazolam (Xanax) 0.25 mg PRN Q6HRS PRN PO ANXIETY / AGITATION; Start at 20:00 Calcium Carbonate/ Glycine (Oscal) 500 mg TIDWMEALS PO ; Start 04/24/17 at 08:00 Citalopram Hydrobromide (CeleXA) 20 mg DAILY PO ; Start 04/24/17 at 09:00 Clopidogrel Bisulfate (Plavix) 75 mg DAILY07 PO ; Start 04/24/17 at 07:00; Stop 04/24/17 at 07:00; Status DC Diclofenac Sodium (Voltaren) 1 ayaz BID TP ; Start 04/23/17 at 21:00 Ergocalciferol (Vitamin D2) 50,000 unit Tu PO ; Start 05/01/17 at 09:00 Famotidine (Pepcid) 20 mg HS PO Last administered on 04/23/17 21:01; Start 06/29 at 21:00 Vitamin B Complex/ Vitamin C (Fernanda-Jimmy) 1 tab DAILY PO ; Start 04/24/17 at 09: 00 Isosorbide Mononitrate (Imdur) 30 mg DAILY PO ; Start 04/24/17 at 09:00 Levetiracetam (Keppra) 500 mg BID PO Last administered on 04/23/17 21:01; Start 04/23/17 at 21:00 Levothyroxine Sodium (Synthroid) 175 mcg DAILY07 PO ; Start 04/24/17 at 07:00 Lidocaine (Lidoderm) 1 patch DAILY TD ; Start 04/24/17 at 09:00 Meclizine HCl (Antivert) 12.5 mg TID PO Last administered on 04/23/17 21:01; Start 04/23/17 at 21:00 Metoprolol Tartrate (Lopressor) 50 mg BID PO Last administered on 04/24/17 09: 48; Start 04/23/17 at 21:00 Nitroglycerin (Nitrostat) 0.4 mg PRN Q5MIN PRN SL CHEST PAIN; Start 04/23/17 at 20:00 Ropinirole HCl (Requip) 0.25 mg DAILY PO ; Start 04/24/17 at 09:00 Sevelamer Carbonate (Renvela) 2,400 mg TIDWMEALS PO ; Start 04/24/17 at 08:00 Sodium Bicarbonate (Sodium Bicarbonate) 1,300 mg BID PO ; Start 04/23/17 at 21: 00 Sucralfate (Carafate) 1 gm BID PO Last administered on 04/23/17 21:01; Start 04/23/17 at 21:00 Trazodone HCl (Desyrel) 50 mg QHS PO Last administered on 04/23/17 21:01; Start 04/23/17 at 21:00 Zolpidem Tartrate (Ambien) 5 mg PRN QHS PRN PO SLEEP; Start 04/23/17 at 20:00 Dexamethasone Sodium Phosphate (Decadron) 20 mg STK-MED ONCE .ROUTE ; Start 07/29 at 09:11; Stop 04/24/17 at 09:12; Status DC Ondansetron HCl (Zofran) 4 mg STK-MED ONCE .ROUTE ; Start 04/24/17 at 09:11; Stop 04/24/17 at 09:12; Status DC Propofol 20 ml @ As Directed STK-MED ONCE IV ; Start 04/24/17 at 09:11; Stop 07/29 at 09:12; Status DC Lidocaine HCl (Lidocaine Pf 2% Vial) 5 ml STK-MED ONCE .ROUTE ; Start 04/24/17 at 09:11; Stop 04/24/17 at 09:12; Status DC Fentanyl Citrate (Fentanyl 2ml Vial) 100 mcg STK-MED ONCE .ROUTE ; Start at 09:11; Stop 04/24/17 at 09:12; Status DC Lidocaine HCl (Xylocaine-Mpf 1% Vial) 2 ml STK-MED ONCE .ROUTE ; Start 04/24/17 at 10:37; Stop 04/24/17 at 10:38; Status DC Darbepoetin Jace (Aranesp) 60 mcg WEEKLYHS SQ ; Start 04/24/17 at 21:00 Sodium Chloride 1,000 ml @ 0 mls/hr Q0M IV Last administered on 9/12/17at 11: 02; Start 04/24/17 at 11:15 Bupivacaine HCl/ Epinephrine Bitart (Sensorcaine-Epi 0.25%-1:[id number] Mpf) 30 ml STK-MED ONCE .ROUTE ; Start 04/24/17 at 11:03; Stop 04/24/17 at 11:04; Status DC Active Scripts Active Levetiracetam 500 Mg Tablet 500 Mg PO BID Lidoderm (Lidocaine) 700 Mg Adh..patch 1 Patch TD DAILY Metoprolol Tartrate 50 Mg Tablet 50 Mg PO BID Synthroid (Levothyroxine Sodium) 175 Mcg Tablet 175 Mcg PO DAILY07 Isosorbide Mononitrate Er (Isosorbide Mononitrate) 30 Mg Tab.er.24h 30 Mg PO DAILY Reported Sodium Bicarbonate 650 Mg Tablet 2 Tab PO BID on dialysis days sunday, and sunday Meclizine Hcl 12.5 Mg Tablet 1 Tab PO TID Calcium Carbonate 500 Mg Tablet 500 Mg PO TIDWMEALS Ambien (Zolpidem Tartrate) 5 Mg Tablet 5 Mg PO HS PRN Alprazolam 0.25 Mg Tablet 1 Tab PO PRN Ventolin Hfa Inhaler (Albuterol Sulfate) 18 Gm Hfa.aer.ad 1 Puff INH Q6HRS PRN Ropinirole Hcl 0.25 Mg Tablet 0.25 Mg PO Citalopram Hbr (Citalopram Hydrobromide) 20 Mg Tablet 1 Tab PO DAILY Trazodone Hcl 50 Mg Tablet 0.5-1 Tab PO QHS Risperidone 0.5 Mg Tablet 1 Tab PO QHS Famotidine 20 Mg Tablet 20 Mg PO HS Coumadin (Warfarin Sodium) 5 Mg Tablet 1 Tab PO DAILY Nephro-Jimmy Tablet (Folic Acid/Vitamin B Comp W-C) 0.8 Mg Tablet 1 Tab PO DAILY Carafate (Sucralfate) 1 Gm Tablet 1 Tab PO BID Nitrostat (Nitroglycerin) 0.4 Mg Tab.subl 0.4 Mg SL PRN Q5MIN PRN Voltaren (Diclofenac Sodium) 100 Gm Gel..gram. 1 Gm TP BID Clopidogrel (Clopidogrel Bisulfate) 75 Mg Tablet 75 Mg PO DAILY07 Renvela (Sevelamer Carbonate) 800 Mg Tablet 2,400 Tab PO TIDWMEALS Vitamin D2 (Ergocalciferol (Vitamin D2)) 50,000 Unit Capsule 50,000 Unit PO WEEKLY weekly on Sunday Atorvastatin Calcium 80 Mg Tablet 80 Mg PO HS Vitals/I & O Vital Sign - Last 24 Hours 04/23/17 04/23/17 04/23/17 04/23/17 17:33 18:00 19:00 20:00 Temp 100.6 100.0 100.6 100.0 Pulse 102 103 Resp 18 18 B/P (MAP) 154/77 (102) 145/77 (99) Pulse Ox 97 97 O2 Delivery Room Air Room Air Room Air Room Air 04/23/17 04/23/17 04/24/17 04/24/17 21:02 23:30 03:23 07:00 Temp 100.2 99.7 98.8 100.2 99.7 98.8 Pulse 103 111 83 85 Resp 18 18 20 B/P (MAP) 145/77 121/63 (82) 103/52 (69) 126/61 (82) Pulse Ox 96 96 98 O2 Delivery Room Air Room Air Room Air 04/24/17 04/24/17 09:48 10:55 Temp 98.2 98.2 Pulse 85 81 Resp 12 B/P (MAP) 126/61 130/60 Pulse Ox 97 O2 Delivery Room Air Intake and Output 04/24/17 04/24/17 04/25/17 15:00 23:00 07:00 Output Total 500 ml Balance -500 ml IVC TIWARI III DO Apr 24, 2017 12:13
--- NOTE | 2017-04-24 13:00 | PDOC ---
Provider Note Provider Note I examined the patient and reviewed his labs preoperatively. His creatinine is greater than 6 and his potassium is 4.7. I believe he should dialyze today, and we should postpone surgery until tomorrow. I discussed this with the patient. He and his agree. MARSHA TENORIO MD Apr 24, 2017 13:00
--- NOTE | 2017-04-24 13:28 | PDOC4 ---
Operative Note Operative Note -D-a-t-e- -o-f- -D-u-x-h-k-k-u-r-e--:- - - -I-u-g-b-y-p-b-e-r- -1-2--,- -2-0-1-7- -L-d-k-----O-p- -J-g-m-k-y-y-s-i-s--:- -H-m-j-j-k-b-j-k-y-r-i-t-i-s- -r-i-g-h-t- - - -k-n-e-e- -O-g-w-t-----O-p- -P-v-y-a-q-u-s-i-s--:- -H-u-v-c-b-o-m-x-d-r-i-t-i-s- -r-i-g-h-t- -k-n-e-e- -U-g-g-d-w-l-u-r-e--:- -r-i-g-h-t- -t-o-t-a-l- -k-n-e-e- -q-y-g-v-c-k-x-i-c-s-t-y- -N-q-c-g-e-o-n--:- -J-o-h-n- -N- -V-a-n-i--,- -M-D- -H-k-k-s-r-g-a-n-t--:- -S-a-k-h-e-l- -F-f-h-o-m-e- -P-A-----C- -Q-b-e-r-u-h-e-s-i-a--:- -M-y-y-e-r-a-l- -E-B-L--:- -1-0-0- -m-L- -B-z-q-z-v-x-e-n-s- -F-v-e-a-i-n-e-d--:- -r-i-g-h-t- -k-n-e-e- -b-o-n-e- -a-n-d- -s-o-f-t- -c-t-g-s-u-e- -R-d-i-e-v-d-k-r-e-i-o-n-s--:- -n-o-n-e- -I-g-o-l-a-n-t- -L-k-o-p-a-n-y--:- -S-m-i-t-h- -+- -Z-c-b-h-e-w- -J-a-l-i-n-s--:- -V-w-r-o-v-a-c- -p-l-u-s- -p-a-i-n- -w-m-f-h-e-t-e-r- -T-l-q-v-s-r-q-u-e-t- -t-i-m-e--:- -6-5- -L-a-k-u-t-e-s- -L-d-f-v-m-w-q-u-e-t- -D-a-p-s-s-u-r-e--:- -3-5-0- -m-m- -H-g- -O-d-x-y-l-j-t-i-o-n-s- -f-o-r- -I-t-a-n-q-n-u-r-e--:- -E-w-s-o-k-g-t-i-s- -p-a-i-n- -e-w-t-e-k-o-e-v-e-d- -b-y- -e-s-g-f-r-y-l-g-v-i-v-e- -w-h-t-s-b-r-m-e-n-t-.- -X-k-s-d-i-n-g-s--:- -T-r-b-e-r-e- -o-m-m-b-f-q-m-z-n-r-i-t-i-s- -w-i-t-h- -b-o-n-e- -o-n- -b-o-n-e- -a-n-l-t-a-c-t- -d-u-l-i-a-l-l-y- -a-n-d- -a-t- -t-h-e- -c-r-h-z-g-j-t-y-g-m-o-r-a-l- -j-o-i-n-t- -P-w-g-l-a-n-t-s- -u-s-e-d--:- -S-i-z-e- -5- -r-i-g-h-t- -h-u-j-n-u-w-i-a-t-e- -u-r-z-f-m-n-i-z-e-d- -K-f-o-r-n-e-y- -I-I- -B-C-S- -b-l-m-a-l-t- -o-l-i-o-m-e- -b-j-g-o-r-a-l- -s-y-l-i-w-m-e-n-t--,- -s-i-z-e- -5- -r-i-g-h-t- -W-f-w-r-n-e-y- -z-r-n-l-q-n-o-u-s- -j-g-e-i-a-l- -j-c-q-s-j-o-a-t-e--,- -s-i-z-e- -5-----6- -1-0- -m-m- - - -r-i-g-h-t- -T-m-y-r-n-e-y- -I-I- -B-C-S- -X-L-P-E- -g-u-j-z-h-e-l-a-r- -e-v-s-e-r-t--,- - - -m-h-a-n-d-a-r-d- -2-6- -m-m- -O-y-a-r-n-e-y- -B-C-S- -j-b-b-o-n-v-e-x- -v-o-f-e-l-l-a-r- -u-o-e-f-x-x-e-n-t- -W-f-c-m-j-g-u-r-e- -i-n- -Y-l-u-a-i-l--:- -T-h-e- -e-z-t-i-e-n-t- -w-a-s- -j-f-q-s-y-d-f-i-e-d- -i-n- -t-h-e- -d-o-p-r-n-k-p-e-n-i-v-e- -p-a-n-d-i-n-g- -a-r-e-a--,- -a-n-d- -t-h-e- -j-y-x-r-e-c-t- -r-i-g-h-t- -l-o-w-e-r- -j-l-s-n-b-x-i-t-y- -w-a-s- -k-m-b-k-e-d- -b-y- -m-e-.- -T-h-e- -l-c-m-i-e-n-t- -w-a-s- -t-a-k-e-n- -t-o- -t-h-e- -l-z-i-c-h-c-i-n-g- -r-o-o-m- -w-h-e-r-e- -t-h-e- -b-z-w-i-e-n-t- -w-a-s- -w-u-t-m-r-b-n-s-b-z-e-d- -b-y- -t-h-e- -E-p-g-m-o-c-m-e-n-t- -o-f- -E-m-h-y-g-h-e-s-i-a-.- -A-d-l-g-p-o-r-x-p-i-v-e- -i-g-d-y-u-w-o-t-i-c-s- -w-e-r-e- -g-i-v-e-n- -f-c-k-m-d-v-k-l-v-u-s-l-y-.- -W-a-c-f-r-j-a-m-i-c- -a-c-i-d- -w-a-s- -n-o-t- -g-i-v-e-n- -i-n- -t-h-i-s- -o-w-k-i-e-n-t- -d-u-e- -t-o- -u-q-x-f-u-g-y-i-n-g- -r-i-s-k-s-.- -A- -"--q-j-w-e-----o-u-t--"- -r-d-f-b-u-b-u-r-e- -w-a-s- -z-p-s-q-k-k-m-e-d-.- -T-h-e- -b-r-o-i-e-n-t- -w-a-s- -l-c-j-y-u-q-o-n-e-d- -o-r-k-i-n-e- -o-n- -t-h-e- -b-p-h-p-x-t-i-v-e- -t-a-b-l-e- -w-i-t-h- -a- -l-l-a-z-p-v-q-u-e-t- -o-n- -t-h-e- -u-p-p-e-r- -r-i-g-h-t- -t-h-i-g-h-.- -T-h-e- -r-i-g-h-t- -l-o-w-e-r- -l-i-m-b- -w-a-s- -g-u-m-s-b-g-g-h-l-y- -z-v-b-p-p-e-d- -a-n-d- -a-x-f-p-e-d- -i-n- -e-r-v-r-i-l-e- -l-j-c-h-i-o-n-.- -A-n- -a-y-n-b-z-z-i-o-u-s- -k-i-l-n-k-s-n-e-t- -a-n-d- -y-y-q-e-s-i-v-e- -d-r-a-p-e- -w-e-r-e- -u-s-e-d- -s-u-c-h- -t-h-a-t- -t-h-e- -s-k-i-n- -w-a-s- -y-l-w-i-r-e-l-y- -l-s-d-e-r-e-d-.- - - -A-n- -H-k-o-a-r-a-d-o- -l-e-g- -d-j-s-d-e-r- -w-a-s- -u-s-e-d-.- -T-h-e- -d-j-r-s-o-x-i-n-g- -t-e-a-m- -w-o-r-e- -z-m-c-s-o-n-a-l- -g-o-y-u-u-c-t-----j-r-l-n-k-b-a-t-e-d- -h-o-o-d-s-.- -T-h-e- -h-o-g-n-o-w-q-u-e-t- -w-a-s- -r-b-p-l-a-t-e-d- -t-o- -3-5-0- -H-g-.- -A- -l-c-f-l-i-n-e- -s-k-i-n- -u-e-e-i-s-i-o-n- -w-a-s- -m-a-d-e- -w-i-t-h- -a- -t-b-h-l-p-e-l- -u-s-i-n-g- -t-h-e- -j-j-y-e-l-l-a- -a-n-d- -v-l-y-i-a-l- -v-s-u-e-r-c-l-e- -a-s- -v-q-p-o-x-s-r-k-s-.- -F-k-k-u-j-m-x-y-h-u-t-e-r-y- -w-a-s- -u-s-e-d- -f-o-r- -q-n-d-e-i-z-a-s-i-s-.- -M-y- -v-o-r-e-h-z-a-n-t- -u-s-e-d- -r-a-k-e- -x-e-s-r-a-p-t-o-r-s-.- -A- -f-r-r-i-a-l- -q-u-h-f-o-y-h-g-c-l-a-r- -a-r-x-a-s-e-t-o-m-y- -j-g-x-i-s-i-o-n- -w-a-s- -u-s-e-d- -w-i-t-h- -z-r-f-a-k-m-i-o-n- -i-n-t-o- -t-h-e- -u-g-q-t-a-l- -p-d-s-i-c-r-c-e-p-s- -g-n-x-d-o-n-.- -T-h-e- -l-d-s-e-l-l-a- -w-a-s- -p-s-c-t-c-m-t-e-d- -q-w-c-f-b-o-l-l-y- -a-n-d- -I-j-s-m-a-n-n- -b-b-j-a-o-f-t-o-r-s- -w-e-r-e- -n-o-w- -u-s-e-d- -b-y- -m-y- -m-o-l-w-w-c-a-n-t-.- -M-f-y-e-s-s- -y-n-d-o-v-i-u-m--,- -t-h-e- -j-l-k-i-s-c-i- -,- -a-n-d- -t-h-e- -b-n-u-c-i-a-t-e- -s-b-d-h-c-p-n-t-s- -w-e-r-e- -q-j-d-e-c-t-e-d- -r-w-a-r-p-l-y-.- - - -T-h-e- -p-f-b-e-l-l-a- -w-a-s- -h-g-h-e-s-s-e-d- -a-n-d- -q-c-g-e-s-s- -a-a-h-o-v-i-u-m- -a-n-d- -p-b-h-f-o-o-h-y-t-e-s- -m-w-e-u-n-d- -t-h-e- -z-l-p-e-l-l-a-r- -f-l-s-h-j-e-f-a-s-i-o-n- -w-e-r-e- -h-e-i-o-v-e-d-.- -T-h-e- -s-f-x-e-l-l-a- -w-a-s- -f-o-d-s-u-r-e-d- -w-i-t-h- -a- -f-u-c-i-p-e-r--,- -c-u-t- -m-e-t-e-h-a-n-d- -w-i-t-h- -a- -s-a-w- -u-s-i-n-g- -q-g-r-i-p-e-r- -l-z-v-q-w-n-e-n-x-n-t-s--,- -s-i-z-e-d--,- -a-n-d- -t-h-e-n- -m-w-k-l-l-e-d- -f-o-r- -a-n- -o-v-a-l- -o-u-p-e-e-----y-s-a-g-e-d- -t-a-p-e-l-l-a- -t-e-i-b-e-y-e-n-t-.- - - -D-v-o-t-t-i-m-j-w-u-l-a-r- -z-f-g-u-l-w-i-o-n- -w-a-s- -u-s-e-d- -i-n- -t-h-e- -d-j-x-p-w-z-m-v-e-l-l-a-r- -p-o-u-c-h- -a-n-d- -w-p-u-t-a-l- -i-g-y-v-l-w-c-e-p-s- -c-t-h-c-l-e-.- -P-j-l-g-y-y-i-d-e-s--'--s- -l-i-n-e- -w-a-s- -r-s-u-e-s-s-e-d- -o-n- -t-h-e- -f-e-m-u-r-.- -A-n- -e-m-n-r-a-----w-d-l-e-h-x-a-r-y- -5- -f-h-m-r-e-e- -g-n-n-t-i-n-g- -g-u-i-d-e- -w-a-s- -y-s-m-n-e-d- -t-o- -t-h-e- -f-e-m-u-r--,- -a-n-d- -a- -d-r-e-t-a-l- -c-v-r-o-r-a-l- -c-u-t- -w-a-s- -m-a-d-e- -w-i-t-h- -a-n- -g-y-s-l-y-b-a-t-i-n-g- -s-a-w-.- - - -A-n- -u-z-o-h-n-x-o-n-a-l- -2- -m-m- -o-k-y-h-o-b-i-o-n- -w-a-s- -u-s-e-d- -d-u-e- -t-o- -t-h-e- -d-e-e-p- -d-r-y-o-r-a-l- -n-e-h-c-u-s--,- -a-n-d- -c-p-j-i-s-b-e-n-t- -q-s-x-d-y-l-e-.-M-y- -c-g-k-c-l-r-a-n-t- -h-e-l-d- -S-y-a-m-a-n-n- -d-p-b-v-g-m-t-o-r-s- -a-n-d- -a-n- -V-z-l-y-----N-a-v-y- -j-f-r-i-n-e-t-o-r- -t-o- -p-b-g-t-e-c-t- -t-h-e- -b-i-k-i-a-l- -a-n-d- -z-l-g-e-r-a-l- -p-m-p-d-e-n-e-r-a-l- -d-l-r-n-d-a-n-t-s--,- -t-h-e- -w-y-s-e-l-l-a-r- -m-t-b-d-o-n--,- -t-h-e- -s-k-i-n- -a-n-d- -t-h-e- -o-t-h-e-r- -s-o-f-t- -l-a-b-s-u-e-s-.- - - -A-n- -h-y-x-e-r-i-o-r- -r-k-o-f-c-h-n-c-i-n-g- -g-u-i-d-e- -w-a-s- -j-q-x-l-i-e-d- -w-i-t-h- -n-k-o-e-r-n-a-l- -u-y-b-a-t-i-o-n- -o-f- -3- - - -t-o- -m-a-t-c-h- -D-i-w-l-i-c-i-d-e--s- -l-i-n-e-.- - - -A- -5-----i-n-----1- -O-j-r-r-n-e-y- -I-I- -w-o-l-t-i-n-g- -g-u-i-d-e- -w-a-s- -t-h-e-n- -g-z-o-l-i-e-d- -a-n-d- -s-y-x-n-e-d- -t-o- -t-h-e- -f-e-m-u-r-.- - - -T-h-e- -c-f-d-y-z-f-i-o-r--,- -v-s-l-e-r-i-o-r--,- -a-n-d- -a-l-l- -e-k-g-m-f-e-r- -c-u-t-s- -w-e-r-e- -m-a-d-e- -w-i-t-h- -t-h-e- -e-j-y-b-n-c-a-t-i-n-g- -s-a-w-.- -A-n- -e-x-d-l-y-i-t-v-w-l-l-a-r-y- -g-u-i-d-e- -w-a-s- -c-q-f-n-e-d- -t-o- -t-h-e- -t-i-b-i-a- -a-n-d- -l-f-j-m-u-z-o-n-a-l- -r-t-w-q-d-u-e-n-t- -a-n-d- -t-h-e- -w-k-x-n-n-e-d- -d-w-r-o-m-c-i-o-n- -f-x-m-e-v-u-e-s-s- -d-r-v-e-s-s-e-d-.- - - -A-n- -u-r-z-e-r-n-a-l- -i-n-j-v-x-v-e-n-t- -r-o-d- -w-a-s- -u-s-e-d- -t-o- -f-h-j-i-f-y- -t-h-e- -i-x-g-n-n-e-d- -c-u-t- -i-n- -t-h-e- -h-v-q-u-s-----j-e-d-g-u-s- -p-l-a-n-e- -a-n-d- -n-y-o-u-c-n-i-n-g- -p-i-k-t-w-z-i-o-r- -s-l-o-p-e- -s-w-w-o-d-g-n-c-i-n-g- -t-h-e- -g-c-v-i-a-l- -p-j-u-e-r-c-l-e--,- -t-h-e- -j-p-y-i-a-l- -s-h-a-f-t--,- -t-h-e- -a-n-k-l-e- -j-o-i-n-t--,- -a-n-d- -t-h-e- -u-t-w-o-n-d- -p-h-i-w-z-g-r-s-a-l-.- - - -T-h-e- -u-p-p-e-r- -t-i-b-i-a- -w-a-s- -c-u-t- -m-a-d-e- -w-i-t-h- -a-n- -w-d-l-b-e-h-a-t-i-n-g- -s-a-w-.- - - -M-y- -x-c-t-j-f-d-a-n-t- -h-e-l-d- -R-l-g-m-a-n-n- -a-g-e-h-v-s-t-o-r-s- -a-n-d- -a- -n-n-m-l-p-x-i-o-r- -l-s-f-c-i-a-t-e- -k-l-q-a-m-e-n-t- -d-c-i-a-q-t-t-o-r- -t-o- -k-o-m-t-e-c-t- -t-h-e- -q-x-r-i-a-l- -a-n-d- -f-z-a-e-r-a-l- -o-k-e-t-g-w-e-r-a-l- -x-u-p-m-y-m-n-t-s--,- -t-h-e- -t-q-t-e-l-l-a-r- -b-y-j-d-o-n--,- -t-h-e- -s-k-i-n--,- -t-h-e- -w-p-p-o-n-e-a-l- -n-e-r-v-e- -a-n-d- -t-h-e- -o-t-h-e-r- -s-o-f-t- -i-b-c-s-u-e-s-.- -T-h-e- -u-p-p-e-r- -t-i-b-i-a- -w-a-s- -s-i-z-e-d- -w-i-t-h- -a- -t-r-i-a-l- -g-t-m-v-x-y-a-t-e-.- -T-h-e- -h-f-g-u-h-v-i-o-r- -f-b-s-c-n-v-t-m-e-n-t- -w-a-s- -q-r-x-a-r-e-d- -o-f- -m-r-k-u-x-h-h-y-t-e-s- -a-n-d- -l-o-o-s-e- -t-m-d-i-e-s--,- -a-n-d- -i-f-b-n-q-f-i-o-r- -u-d-s-s-u-l-e- -i-n-p-e-a-s-e-d-.- -I-t-b-i-----m-d-k-k-v-n-l-a-r- -a-c-n-r-v-f-i-o-n- -w-a-s- -u-s-e-d- -i-n- -t-h-e- -t-u-g-e-y-q-i-o-r- -o-g-h-g-h-s-t-m-e-n-t-.- -T-h-e- -b-o-x- -c-u-t- -f-o-r- -a- -s-r-j-h-d-m-i-o-r- -e-r-f-x-v-u-i-z-e-d- -h-l-l-e-r-a-e-n-t- -w-a-s- -m-a-d-e-.- - - -A- -m-u-z-c-w-r-i-n-a-r-y- -s-l-b-l-e-f-i-o-n- -w-a-s- -t-p-j-t-o-v-m-e-d- -w-i-t-h- -a- -t-r-i-a-l- -f-e-m-u-r--,- -t-r-i-a-l- -p-b-b-i-a-l- -a-d-i-v-d-w-a-t-e- -a-n-d- -t-r-i-a-l- -e-c-w-h-w-h-t-u-g-e-n-e-.- - - -F-c-y-t-----k-w-z-s-u-e- -e-b-u-z-e-y-i-n-g- -w-a-s- -n-o-w- -d-z-h-f-x-u-m-e-d--,- -a-n-d- -x-r-z-f-k-h-i-o-n- -a-n-d- -e-s-m-a-t-i-o-n- -o-f- -t-h-e- -k-h-u-c-z-c-e-n-t-s- -w-a-s- -z-u-w-c-k-e-d- -u-s-i-n-g- -a- -g-u-i-d-e- -r-o-d- -i-n- -t-h-e- -i-f-w-i-a-l- -t-r-i-a-l- -a-n-d- -a- -g-u-i-d-e- -p-i-n- -i-n- -t-h-e- -f-e-m-u-r-.- - - -A- -l-d-q-i-a-l- -c-j-u-e-a-s-e- -w-a-s- -p-p-h-u-i-r-e-d--,- -u-s-i-n-g- -a- -1-0- -b-l-a-d-e- -d-e-p-l-p-e-l--,- -a-n-d- -a- -C-o-b-b- -f-d-w-v-a-t-o-r- -t-o- -r-j-t-v-a-t-e- -t-h-e- -w-j-p-i-a-l- -n-k-j-m-h-t-u-r-e-s- -f-r-o-m- -t-h-e- -u-p-p-e-r- -d-t-b-i-a-l- -t-i-b-i-a-.- - - - -T-h-e- -x-a-q-s-w-g-i-t-y- -w-a-s- -b-r-g-e-s-s-e-d- -u-s-i-n-g- -y-n-s-a-t-q-e-n-t- -m-q-n-w-q-f-e-s-s-e-s- -o-f- -m-x-d-i-a-l- -l-y-l-g-a-o-l-a-r- -h-t-h-f-a-c-e- -t-o- -f-i-n-d- -s-c-n-y-o-g-o-h-c-o-r-y- -v-t-m-w-p-h-i-t-y- -a-n-d- -g-o-o-d- -r-a-n-g-e- -o-f- -z-f-l-i-o-n-.- - - -T-h-e- -a-v-p-a-t-i-o-n- -o-f- -t-h-e- -m-m-k-i-a-l- -t-l-d-z-j-u-e-n-t- -w-a-s- -b-k-g-k-e-d- -o-n- -t-h-e- -u-p-p-e-r- -t-i-b-i-a-.- -F-i-n-a-l- -t-r-i-a-l- -n-b-w-s-b-z-i-o-n- -w-a-s- -n-o-w- -x-f-t-x-f-m-m-e-d- -g-d-q-o-m-o-i-n-g- -e-d-z-e-l-l-a- -w-s-f-c-k-i-n-g- -a-n-d- -a-o-o-t-y-i-o-l-l-r-a-l- -e-p-f-j-g-r-i-t-y- -a-n-d- -c-q-h-f-m-t-e-n-t-.- -T-h-e- -t-i-b-i-a- -l-i-q-d-b-i-a-t-i-o-n- -w-a-s- -m-r-n-s-j-o-t-e-d- -w-i-t-h- -a- -d-r-i-l-l--,- -s-a-w--,- -a-n-d- -f-i-n- -p-u-n-c-h- -a-t- -t-h-e- -q-h-m-p-g-q-u-s-l-y- -n-o-t-e-d- -d-b-f-a-t-i-o-n-.- -T-h-e- -f-i-n-a-l- -h-h-j-l-a-n-t-s- -w-e-r-e- -z-h-x-i-f-i-e-d- -a-n-d- -t-d-u-n-e-d-.- -O-u-t-e-r- -l-l-q-v-e-s- -w-e-r-e- -d-i-l-n-g-e-d- -b-y- -t-h-e- -p-z-b-z-y-o-i-n-g- -t-e-a-m-.- -T-h-e- -b-o-n-e- -c-u-t-s- -w-e-r-e- -z-e-t-h-e-d- -q-f-l-o-y-p-g-h-l-y- -w-i-t-h- -t-h-e- -M-i-y-y-k-e-r- -Y-a-w-b-j-N-u-l-s-e- -p-h-o-i-c-e- -a-n-d- -d-r-i-e-d-.- -T-w-o- -e-m-r-k-a-g-e-s- -o-f- -S-m-i-t-h- -+- -V-g-h-h-e-w- -R-a-l-l-y- -H-V- -b-o-n-e- -x-t-w-e-n-t- -w-e-r-e- -m-i-x-e-d- -i-n- -i-h-j-d-e-r-e-d- -f-o-r-m- -w-i-t-h- -1- -g-m- -o-f- -Q-z-z-v-n-c-y-c-i-n--,- -t-h-e-n- -j-y-c-u-u-m---- -m-i-x-e-d- -w-i-t-h- -t-h-e- -p-k-c-o-m-e-r--,- -a-n-d- -d-b-w-c-e-d- -i-n-t-o- -a- -z-k-k-e-n-t- -g-u-n-.- -T-h-e- -c-u-t- -l-s-s-f-a-c-e-s- -o-f- -t-h-e- -b-o-n-e- -w-e-r-e- -q-t-y-d-g-v-g-h-l-y- -d-r-i-e-d- -w-i-t-h- -N-y-e-b-b-n-r-----t-i-p- -u-c-c-t-i-o-n- -a-n-d- -w-i-t-h- -g-v-q-t-n-o-t-o-m-y- -w-k-a-n-g-e-s- -f-o-r- -n-u-s-e-n-t- -k-d-m-b-g-b-a-e-m-s-a-d-i-o-n-.- -T-h-e- -f-i-n-a-l- -q-s-e-i-o-o-e-n-t-s- -w-e-r-e- -l-v-c-e-n-t-e-d- -i-n-t-o- -p-l-a-c-e-.- -T-h-e- -k-n-e-e- -w-a-s- -k-e-p-t- -a-t- -f-u-l-l- -g-n-t-y-v-c-i-o-n- -w-h-i-l-e- -t-h-e- -c-n-n-e-n-t- -j-y-p-d-e-n-e-d--,- -a-n-d- -u-o-r-e-s-s- -u-n-k-e-n-t- -w-a-s- -h-r-s-o-v-e-d-.- - - - -N-o- -q-u-n-y-e-o-a-m-i-c- -a-c-i-d- -w-a-s- -g-i-v-e-n- -a-t- -t-h-i-s- -p-o-i-n-t-.- -A- -f-i-n-a-l- -k-c-a-b-a-b-a-z-k-u-l-a-r- -r-v-l-y-c-y-i-o-n- -w-a-s- -u-s-e-d- -f-o-r- -p-a-i-n- -d-e-o-i-e-f-.- -T-h-e- -w-s-f-n-a-l-q-u-e-t- -w-a-s- -s-j-m-e-a-s-e-d--,- -a-n-d- -j-y-m-i-i-z-g-x-p-u-t-e-r-y- -w-a-s- -u-s-e-d- -f-o-r- -s-n-h-c-f-a-a-s-i-s-.- -A- -f-i-n-a-l- -c-h-e-c-k- -o-f- -z-g-w-g-e-----o-f-----q-s-w-i-o-n- -a-n-d- -j-k-t-w-f-q-i-t-y- -w-a-s- -m-a-d-e--,- -a-n-d- -t-h-e- -k-u-t-r-c-l-s-c-t-e-n-e- -q-s-e-l-a-n-t- -f-i-n-a-l- -s-i-z-e- -w-a-s- -c-w-d-s-e-n-.- -T-h-e- -n-m-t-a-x-q-d-t-x-e-n-e- -m-g-d-l-a-n-t- -w-a-s- -o-x-x-u-r-e-d- -t-o- -t-h-e- -c-w-k-i-a-l- -w-j-k-a-s-f-a-t-e--,- -a-n-d- -t-h-e- -k-n-e-e- -w-a-s- -r-p-g-u-c-e-d- -a- -f-i-n-a-l- -t-i-m-e-.- -W-l-d-r-o-u-g-h- -z-d-h-d-u-j-t-i-o-n- -w-a-s- -u-s-e-d-.- - - -I-y-m-o-v-a-c- -a-n-d- -p-a-i-n- -g-d-e-h-e-t-e-r- -w-e-r-e- -u-s-e-d-.-T-h-e- -t-z-e-m-a-h-t-o-m-y- -w-a-s- -g-c-c-s-e-d- -w-i-t-h- -t-t-c-p-q-i-u-p-t-e-d- -a-z-j-q-b-b-----o-f---- -e-i-g-h-t- -#--1- -P-D-S- -o-g-b-u-r-e-.- - - -T-h-e- -e-t-z-o-f-h-t-o-m-y- -l-z-n-i-s-i-o-n- -w-a-s- -t-h-e-n- -r-u-n- -w-i-t-h- -#--1- -I-O-Z-T-W-L-F-I-X- -J-v-x-k-u-t-r-i-c- -P-D-S- -P-l-u-s- -B-h-x-t-l-e-s-s- -v-o-o-u-r-e-.- - - -T-h-e- -w-w-o-s-n-a-h-n-q-o-u-s- -e-e-a-s-u-e-s- -w-e-r-e- -d-y-x-s-e-d- -w-i-t-h- -#--2-----0- -C-t-l-r-y-l- -b-y- -m-y- -k-f-u-h-l-b-a-n-t-.- -T-h-e- -s-k-i-n- -w-a-s- -k-n-b-l-d-h-q-k-p-t-e-d- -w-i-t-h- -l-g-p-p-l-e-s- -b-y- -m-y- -a-b-v-s-y-o-a-n-t-.- - - -T-h-e- -s-k-i-n- -d-e-a-i-s-i-o-n- -w-a-s- -t-h-e-n- -n-l-j-e-r-e-d- -a-n-d- -x-s-l-u-l-j-r-c-e-d- -w-i-t-h- -K-k-k-v-e-n-a- -w-o-u-n-d- -v-a-c- -t-w-h-s-s-i-n-g-.- - - -A- -b-u-l-k-y- -d-r-j-r-i-l-e- -g-a-u-z-e- -h-e-o-s-s-i-n-g- -w-a-s- -f-i-d-l-i-e-d-.- - - -W-j-g-d-l-e- -a-n-d- -m-m-u-n-g-e- -p-w-s-n-t-s- -w-e-r-e- -h-x-r-r-e-c-t-.- This op note was inadvertently entered in Mr. Goel's chart. It is the op note for a different patient. JNV 04-25-2017 MARSHA TENORIO MD Apr 24, 2017 13:28
[2017-04-24] MEDS: MECLIZINE HCL 12.5 MG TABLET. PO SCH ×3 (14:00→20:42)
[2017-04-24] MEDS: FOLIC/VIT B COMP W-C (RENAL) TABLET. PO SCH (14:17)
[2017-04-24] MEDS: rOPINIRole 0.25 MG TABLET. PO SCH (14:17)
[2017-04-24] MEDS: CITALOPRAM 20 MG TABLET. PO SCH (14:18)
[2017-04-24] MEDS: SUCRALFATE 1 GM TABLET. PO SCH ×2 (14:18→20:42)
[2017-04-24] MEDS: ISOSORBIDE MONONITRATE ER 30 MG TAB.ER.24H PO SCH (14:18)
[2017-04-24] MEDS: levETIRAcetam 500 MG TABLET PO SCH ×2 (14:19→20:42)
[2017-04-24] MEDS: LIDOCAINE (700MG/PATCH) PATCH. TD SCH (14:20)
[2017-04-24] MEDS: DICLOFENAC SODIUM 1% TOPICAL GEL 100GM TUBE. TP SCH ×2 (14:20→20:55)
[2017-04-24] MEDS: SODIUM BICARBONATE 650 MG TABLET. PO SCH ×2 (14:27→20:42)
[2017-04-24] MEDS ORDERED: IV NORMAL SALINE 1000ML BAG 1,000 ML IV PRN (15:04)
[2017-04-24] MEDS ORDERED: DIALYSIS PATIENT. MC PRN (15:15)
[2017-04-24 19:39] VITALS: BP 132/61
[2017-04-24] MEDS: FAMOTIDINE 20 MG TABLET. PO SCH (20:42)
[2017-04-24] MEDS: traZODone 50 MG TABLET. PO SCH (20:42)
[2017-04-24] MEDS: MEROPENEM 500 MG in IV NORMAL SALINE 50ML 50 ML IV SCH (20:43)
[2017-04-24] MEDS ORDERED: DARBEPOETIN ALFA 60 MCG/0.3 ML DISP.SYRIN. SQ SCH (21:00)
[2017-04-24 22:21] VITALS: BP 82/44
[2017-04-25] VITALS (12 sets, daily range): BP systolic 108–145; BP diastolic 46–75
[2017-04-25] MEDS ORDERED: VANCOMYCIN RANDOM LEVEL. MC ONE (05:00)
[2017-04-25 05:12] LABS: BASO % 0 % (0-3); EOS % 3 % (0-3); HEMATOCRIT 23.6 % (39.0-53.0); HEMOGLOBIN 7.9 g/dL (13.0-17.5); LYMPH % 17 % (24-48); MEAN CORPUSCULAR HEMOGLOBIN 31 pg (25-35); MEAN CORPUSCULAR HGB CONC 34 g/dL (31-37); MEAN CORPUSCULAR VOLUME 91 fL (79-100); MONO % 16 % (0-9); NEUT % 64 % (31-73); PLATELET COUNT 155 x10^3/uL (140-400); RED CELL DISTRIBUTION WIDTH 16.1 % (11.5-14.5); WHITE BLOOD COUNT 6.1 x10^3/uL (4.0-11.0)
[2017-04-25 05:26] LABS: CALCIUM 7.7 mg/dL (8.5-10.1); CREATININE 4.7 mg/dL (0.7-1.3); POTASSIUM 3.9 mmol/L (3.5-5.1)
[2017-04-25] MEDS: LEVOTHYROXINE 175 MCG TABLET PO SCH (06:28)
[2017-04-25] MEDS: VANCOMYCIN PER PHARMACY MC PRN ×2 (06:50→10:17)
[2017-04-25] MEDS ORDERED: VANCOMYCIN 2 GM in IV NORMAL SALINE 500ML BAG 500 ML IV ONE (07:00)
[2017-04-25] MEDS ORDERED: BUPIVACAINE-EPI 0.25%-1:200000 MPF 30 ML VIAL. ONE (07:27)
[2017-04-25] MEDS ORDERED: IV RINGERS,LACTATED 1000ML 1,000 ML IV SCH (07:47)
[2017-04-25] MEDS ORDERED: fentaNYL PF VIAL 100 MCG/2 ML VIAL IV PRN ×2 (08:00→17:00)
[2017-04-25] MEDS ORDERED: PROCHLORPERAZINE 10 MG/2 ML VIAL. IV PRN (08:00)
[2017-04-25] MEDS: INSULIN ASPART 300 UNITS/3 ML INSULN.PEN SQ SCH ×3 (08:00→17:38)
[2017-04-25] MEDS ORDERED: LIDOCAINE 1% 1 ML SYRINGE. ID PRN (08:00)
[2017-04-25] MEDS ORDERED: ONDANSETRON PF 4 MG/2 ML VIAL. ONE (08:12)
[2017-04-25] MEDS ORDERED: fentaNYL PF VIAL 100 MCG/2 ML VIAL ONE ×3 (08:12→10:11)
[2017-04-25] MEDS ORDERED: LIDOCAINE 2% PF Vial for OR 5 ML VIAL. ONE (08:12)
[2017-04-25] MEDS ORDERED: PROPOFOL 20 ML IV ONE (08:12)
[2017-04-25] MEDS ORDERED: DEXAMETHASONE SOD PHOS 20 MG/5 ML VIAL. ONE (08:12)
[2017-04-25] MEDS ORDERED: SUCCINYLCHOLINE 200 MG/10 ML VIAL. ONE (08:13)
[2017-04-25] MEDS ORDERED: MIDAZOLAM HCL/PF 2 MG/2 ML VIAL. ONE (08:18)
[2017-04-25] MEDS: IV NORMAL SALINE 1000ML BAG 1,000 ML IV SCH (08:18)
[2017-04-25] MEDS ORDERED: DESFLURANE 61 TO 120 MINUTES IH ONE (08:32)
[2017-04-25] MEDS ORDERED: ESMOLOL 100 MG/10 ML VIAL. IV ONE (09:06)
[2017-04-25] MEDS ORDERED: PROCHLORPERAZINE 10 MG/2 ML VIAL. ONE (10:11)
[2017-04-25] MEDS ORDERED: DEXTROSE 50% 25 GM / 50ML DISP.SYRIN. IV PRN (10:15)
[2017-04-25] MEDS ORDERED: ONDANSETRON PF 4 MG/2 ML VIAL. IV PRN (10:15)
[2017-04-25] MEDS ORDERED: POLYETHYLENE GLYCOL 3350 17 GM PACKET. PO PRN (10:15)
[2017-04-25] MEDS: fentaNYL PF VIAL 100 MCG/2 ML VIAL IV PRN ×5 (10:20→16:11)
[2017-04-25] MEDS ORDERED: HYDROmorphone 2 MG/ML VIAL ONE (10:28)
--- NOTE | 2017-04-25 10:30 | PDOC4 ---
Operative Note Operative Note Date of Procedure: April 25, 2017 Pre-Op Diagnosis: Left lower extremity gangrene Post-Op Diagnosis: Same Procedure: Left below-knee amputation Surgeon: Marsha Jamison MD Senior Visual Designer: Corinne Diaz PA-C Anesthesia: General EBL: 300 mL Specimens Obtained: Left below knee amputation specimen Complications: none Drains: Hemovac Tourniquet time: 18 minutes Indications for Procedure: This is a 51-year-old man with diabetes and neuropathy. He also is on dialysis. Remotely he had some toe amputations of the left foot. A couple of months ago he had additional ulceration and open wounds with evidence of osteomyelitis, and a transmetatarsal amputation was recommended at that time. He had dehiscence and hematoma of that initial transmetatarsal amputation, and a second attempt was made it limb preservation with debridement, in a staged fashion, open treatment with a wound VAC, and secondary closure of that transmetatarsal amputation last month. Despite aggressive wound care antibiotics and care of his diabetes and neuropathy and restrictions on weightbearing the incision has again dehisced and now there is evidence of exposed bone and gangrene. I recommended a transtibial, also called below knee amputation. We talked about the potential risks of bleeding, difficulty walking, infection, need for additional amputations or other potential surgical or anesthetic complications. The patient and I discussed the risks, benefits and alternatives of surgery. All of his questions about surgery were answered and he desired to proceed. Procedure in Detail: The patient was identified in the preoperative holding area. The correct left lower extremity was marked by me. The patient was taken to the operating room where general anesthesia was used. The patient was positioned supine on the operating table. The limb was prepped with chlorhexidine. The patient remains on schedule antibiotics so no additional doses were used. A timeout procedure was performed. Sterile drapes were applied. An impervious stockinette was placed over the foot up to the level of the ankle. A Coban was used to secure the stockinette. An Esmarch bandage was used to exsanguinate the calf and the thigh, and the tourniquet was inflated to 350 mmHg. Landmarks were noted such as the tibial tubercle. Anterior and posterior incisions were drawn with a skin marker, 15 cm distal to the knee joint line, and 10 cm distal to the tibial tubercle. Rounded fishmouth type flaps were made with the posterior incision one third of the total circumference and the anterior incision two thirds of the total circumference. Skin incisions were made with a #10 scalpel. Bovie electrocautery was used for hemostasis in the subcutaneous tissues. Circumferential skin incision was made at the planned flap incisions, continuing with electrocautery for hemostasis. The fascia was divided circumferentially. Muscle dissection was performed with electrocautery. Vessels were identified and ligated with 0 silk ties. Nerves were transected sharply with a scalpel after injecting with 0.25% Marcaine with epinephrine. The tibia was exposed and the periosteum was elevated proximally using a Bailey elevator. The fibular periosteum was also dissected proximally. A power oscillating saw was now used to transect the tibia 10 cm below the tibial tubercle, with a beveled edge. The fibula was transected 1 centimeter proximal to the tibia with an oblique saw cut. Further dissection was now performed on the posterior aspect of the tibia and fibula, and the specimen was removed. The end of the tibia was smoothed with the saw to a rounded surface. BrainSINS interpulse irrigation was used, and 2 L of saline were irrigated copiously through the wound. The tourniquet was released. Silk ties were again used for bleeding. Bovie electrocautery was used to final time for hemostasis. A Hemovac drain was placed. The posterior flap fascia was repaired to the anterior tibial periosteum using #2 FiberWire [id number] sutures. A secure fascial repair was obtained, next with #1 PDS [id number] sutures.. Next the subcutaneous continues tissues were closed with 2-0 Vicryl both by me and by Corinne my registered medical assistant. I then had her close the skin edges with ham. She placed a sterile dressing. Needle and sponge counts were correct. There were no apparent complications. MARSHA JAMISON MD Apr 25, 2017 10:30
[2017-04-25] MEDS: HYDROmorphone 2 MG/ML VIAL IV PRN ×4 (10:35→11:05)
[2017-04-25] MEDS ORDERED: MORPHINE SULFATE 2 MG/ML DISP.SYRIN. ONE (10:54)
[2017-04-25] MEDS: MORPHINE SULFATE 2 MG/ML DISP.SYRIN. IV PRN ×4 (11:15→23:00)
--- NOTE | 2017-04-25 11:35 | PDOC ---
Renal-Progress Notes Subjective Notes Notes NONE History of Present Illness Hx of present illness NO CHANGE Vitals Vitals Vital Signs Date Time Temp Pulse Resp B/P (MAP) Pulse Ox O2 Delivery O2 Flow Rate FiO2 04/25/17 11:25 16 98 Nasal Cannula 2.0 04/25/17 11:13 96 138/78 04/25/17 10:13 101.7 101.7 Weight Weight [ ] I.O. Intake and Output Intake and Output 04/26/17 07:00 Output Total 300 ml Balance -300 ml Estimated Blood Loss 300 ml Labs Labs Laboratory Tests Test 04/24/17 13:22 04/24/17 21:10 04/25/17 05:07 04/25/17 07:59 Glucose (Fingerstick) 99 mg/dL (70-99) 100 mg/dL (70-99) 94 mg/dL (70-99) White Blood Count 6.1 x10^3/uL (4.0-11.0) Red Blood Count 2.60 x10^6/uL (4.30-5.70) Hemoglobin 7.9 g/dL (13.0-17.5) Hematocrit 23.6 % (39.0-53.0) Mean Corpuscular Volume 91 fL (79-100) Mean Corpuscular Hemoglobin 31 pg (25-35) Mean Corpuscular Hemoglobin Concent 34 g/dL (31-37) Red Cell Distribution Width 16.1 % (11.5-14.5) Platelet Count 155 x10^3/uL (140-400) Neutrophils (%) (Auto) 64 % (31-73) Lymphocytes (%) (Auto) 17 % (24-48) Monocytes (%) (Auto) 16 % (0-9) Eosinophils (%) (Auto) 3 % (0-3) Basophils (%) (Auto) 0 % (0-3) Neutrophils # (Auto) 3.9 x10^3uL (1.8-7.7) Lymphocytes # (Auto) 1.0 x10^3/uL (1.0-4.8) Monocytes # (Auto) 1.0 x10^3/uL (0.0-1.1) Eosinophils # (Auto) 0.2 x10^3/uL (0.0-0.7) Basophils # (Auto) 0.0 x10^3/uL (0.0-0.2) Sodium Level 136 mmol/L (136-145) Potassium Level 3.9 mmol/L (3.5-5.1) Chloride Level 98 mmol/L (98-107) Carbon Dioxide Level 33 mmol/L (21-32) Anion Gap 5 (6-14) Blood Urea Nitrogen 29 mg/dL (8-26) Creatinine 4.7 mg/dL (0.7-1.3) Estimated GFR (Cockcroft-Gault) 16.0 Glucose Level 94 mg/dL (70-99) Calcium Level 7.7 mg/dL (8.5-10.1) Random Vancomycin Level 12.2 mcg/mL Test 04/25/17 10:18 Glucose (Fingerstick) 106 mg/dL (70-99) Review of Systems Constitutional: yes: weakness, alert, oriented Ears/Nose/Throat: Yes: no symptom reported Eyes: Yes: no symptom reported Gastrointestional: Yes: constipation Genitourinary: Yes: no symptom reported Musculoskeletal: Yes: leg pain Skin: Yes color change Psychiatric/Neurological: Yes: no symptom reported Physical Exam General Appearance: no apparent distress Skin: warm Respiratory: decreased breath sounds Heart: S1S2 Abdomen: soft, bowel sounds present Genitourinary: bladder flat Extremities: pulses present, atrophy Neurology: alert Assessment Assessment IMP ANEMIA DM II HTN ESRD LLE WOUND PLAN L BKA TODAY CONT ARANESP HD TOMORROW GRACE VILLEDA MD Apr 25, 2017 11:35
[2017-04-25] MEDS: HYDROcodone/APAP 7.5/325MG 1 TAB TABLET PO PRN ×2 (11:47→16:38)
[2017-04-25] MEDS: SUCRALFATE 1 GM TABLET. PO SCH ×2 (11:47→20:13)
[2017-04-25] MEDS: rOPINIRole 0.25 MG TABLET. PO SCH (11:47)
[2017-04-25] MEDS: CITALOPRAM 20 MG TABLET. PO SCH (11:48)
[2017-04-25] MEDS: METOPROLOL TART IMMED RELEASE 50 MG TABLET. PO SCH ×2 (11:48→20:15)
[2017-04-25] MEDS: levETIRAcetam 500 MG TABLET PO SCH ×2 (11:48→20:15)
[2017-04-25] MEDS: MECLIZINE HCL 12.5 MG TABLET. PO SCH ×3 (11:48→20:14)
[2017-04-25] MEDS: CALCIUM CARBONATE 500 MG TABLET PO SCH ×3 (11:48→17:39)
[2017-04-25] MEDS: ISOSORBIDE MONONITRATE ER 30 MG TAB.ER.24H PO SCH (11:50)
[2017-04-25] MEDS: SODIUM BICARBONATE 650 MG TABLET. PO SCH ×2 (11:50→20:13)
[2017-04-25] MEDS: FOLIC/VIT B COMP W-C (RENAL) TABLET. PO SCH (11:51)
[2017-04-25] MEDS: SEVELAMER CARBONATE 800 MG TABLET. PO SCH ×3 (11:51→17:30)
[2017-04-25] MEDS: LIDOCAINE (700MG/PATCH) PATCH. TD SCH (11:52)
[2017-04-25] MEDS: DICLOFENAC SODIUM 1% TOPICAL GEL 100GM TUBE. TP SCH ×2 (11:53→20:15)
--- NOTE | 2017-04-25 13:17 | PDOC ---
PROGRESS NOTES Chief Complaint Chief Complaint Peripheral vascular disease L LE infection ESRD Hyperlipidemia HTN DM2 Depression Anemia History of Present Illness History of Present Illness Pt laying in bed. In good spirits. was in room. Vitals Vitals Vital Signs Date Time Temp Pulse Resp B/P (MAP) Pulse Ox O2 Delivery O2 Flow Rate FiO2 04/25/17 12:47 18 96 Nasal Cannula 2.0 04/25/17 12:00 73 145/65 (91) 04/25/17 11:31 98.8 98.8 Physical Exam General: Alert, Oriented X3, Cooperative, No acute distress Heart: Regular rate, Normal S1, Normal S2 Lungs: Clear Abdomen: Normal bowel sounds, Soft, No tenderness Extremities: No clubbing, Other (L LE dressing CDI) Skin: No rashes, No breakdown, Other Labs LABS Laboratory Tests Test 04/24/17 13:22 04/24/17 21:10 04/25/17 05:07 04/25/17 07:59 Glucose (Fingerstick) 99 mg/dL (70-99) 100 mg/dL (70-99) 94 mg/dL (70-99) White Blood Count 6.1 x10^3/uL (4.0-11.0) Red Blood Count 2.60 x10^6/uL (4.30-5.70) Hemoglobin 7.9 g/dL (13.0-17.5) Hematocrit 23.6 % (39.0-53.0) Mean Corpuscular Volume 91 fL (79-100) Mean Corpuscular Hemoglobin 31 pg (25-35) Mean Corpuscular Hemoglobin Concent 34 g/dL (31-37) Red Cell Distribution Width 16.1 % (11.5-14.5) Platelet Count 155 x10^3/uL (140-400) Neutrophils (%) (Auto) 64 % (31-73) Lymphocytes (%) (Auto) 17 % (24-48) Monocytes (%) (Auto) 16 % (0-9) Eosinophils (%) (Auto) 3 % (0-3) Basophils (%) (Auto) 0 % (0-3) Neutrophils # (Auto) 3.9 x10^3uL (1.8-7.7) Lymphocytes # (Auto) 1.0 x10^3/uL (1.0-4.8) Monocytes # (Auto) 1.0 x10^3/uL (0.0-1.1) Eosinophils # (Auto) 0.2 x10^3/uL (0.0-0.7) Basophils # (Auto) 0.0 x10^3/uL (0.0-0.2) Sodium Level 136 mmol/L (136-145) Potassium Level 3.9 mmol/L (3.5-5.1) Chloride Level 98 mmol/L (98-107) Carbon Dioxide Level 33 mmol/L (21-32) Anion Gap 5 (6-14) Blood Urea Nitrogen 29 mg/dL (8-26) Creatinine 4.7 mg/dL (0.7-1.3) Estimated GFR (Cockcroft-Gault) 16.0 Glucose Level 94 mg/dL (70-99) Calcium Level 7.7 mg/dL (8.5-10.1) Random Vancomycin Level 12.2 mcg/mL Test 04/25/17 10:18 04/25/17 12:14 Glucose (Fingerstick) 106 mg/dL (70-99) 230 mg/dL (70-99) Review of Systems Review of Systems c/o hunger c/o fatigue Assessment and Plan Assessmemt and Plan Peripheral vascular disease: continue home meds. Monitor L LE infection: post-op day 1. Dressing CDI. Continue wound care & pain meds prn ESRD: continue dialysis Hyperlipidemia: continue to monitor levels. HTN: monitor DM2: monitor. Continue meds Depression: continue celexa Anemia: continue to monitor Pt wants prosthesis. Called company re: prosthesis & left voicemail. Problems: Comment Review of Relevant I have reviewed the following items lila (where applicable) has been applied. Labs Laboratory Tests Test 04/23/17 20:59 04/23/17 21:10 04/24/17 05:00 04/24/17 07:13 Glucose (Fingerstick) 116 mg/dL (70-99) 93 mg/dL (70-99) Prothrombin Time 14.8 SEC (11.7-14.0) Prothromb Time International Ratio 1.2 (0.8-1.1) Sodium Level 131 mmol/L (136-145) Potassium Level 4.7 mmol/L (3.5-5.1) Chloride Level 93 mmol/L (98-107) Carbon Dioxide Level 30 mmol/L (21-32) Anion Gap 8 (6-14) Blood Urea Nitrogen 45 mg/dL (8-26) Creatinine 6.7 mg/dL (0.7-1.3) Estimated GFR (Cockcroft-Gault) 10.6 BUN/Creatinine Ratio 7 (6-20) Glucose Level 124 mg/dL (70-99) Calcium Level 8.0 mg/dL (8.5-10.1) Total Bilirubin 0.9 mg/dL (0.2-1.0) Aspartate Amino Transf (AST/SGOT) 21 U/L (15-37) Alanine Aminotransferase (ALT/SGPT) 9 U/L (16-63) Alkaline Phosphatase 92 U/L (46-116) Total Protein 9.1 g/dL (6.4-8.2) Albumin 2.6 g/dL (3.4-5.0) Albumin/Globulin Ratio 0.4 (1.0-1.7) White Blood Count 7.6 x10^3/uL (4.0-11.0) Red Blood Count 2.66 x10^6/uL (4.30-5.70) Hemoglobin 8.3 g/dL (13.0-17.5) Hematocrit 24.0 % (39.0-53.0) Mean Corpuscular Volume 90 fL (79-100) Mean Corpuscular Hemoglobin 31 pg (25-35) Mean Corpuscular Hemoglobin Concent 35 g/dL (31-37) Red Cell Distribution Width 15.6 % (11.5-14.5) Platelet Count 165 x10^3/uL (140-400) Neutrophils (%) (Auto) 73 % (31-73) Lymphocytes (%) (Auto) 13 % (24-48) Monocytes (%) (Auto) 12 % (0-9) Eosinophils (%) (Auto) 2 % (0-3) Basophils (%) (Auto) 1 % (0-3) Neutrophils # (Auto) 5.5 x10^3uL (1.8-7.7) Lymphocytes # (Auto) 1.0 x10^3/uL (1.0-4.8) Monocytes # (Auto) 0.9 x10^3/uL (0.0-1.1) Eosinophils # (Auto) 0.1 x10^3/uL (0.0-0.7) Basophils # (Auto) 0.1 x10^3/uL (0.0-0.2) Test 04/24/17 13:22 04/24/17 21:10 04/25/17 05:07 04/25/17 07:59 Glucose (Fingerstick) 99 mg/dL (70-99) 100 mg/dL (70-99) 94 mg/dL (70-99) White Blood Count 6.1 x10^3/uL (4.0-11.0) Red Blood Count 2.60 x10^6/uL (4.30-5.70) Hemoglobin 7.9 g/dL (13.0-17.5) Hematocrit 23.6 % (39.0-53.0) Mean Corpuscular Volume 91 fL (79-100) Mean Corpuscular Hemoglobin 31 pg (25-35) Mean Corpuscular Hemoglobin Concent 34 g/dL (31-37) Red Cell Distribution Width 16.1 % (11.5-14.5) Platelet Count 155 x10^3/uL (140-400) Neutrophils (%) (Auto) 64 % (31-73) Lymphocytes (%) (Auto) 17 % (24-48) Monocytes (%) (Auto) 16 % (0-9) Eosinophils (%) (Auto) 3 % (0-3) Basophils (%) (Auto) 0 % (0-3) Neutrophils # (Auto) 3.9 x10^3uL (1.8-7.7) Lymphocytes # (Auto) 1.0 x10^3/uL (1.0-4.8) Monocytes # (Auto) 1.0 x10^3/uL (0.0-1.1) Eosinophils # (Auto) 0.2 x10^3/uL (0.0-0.7) Basophils # (Auto) 0.0 x10^3/uL (0.0-0.2) Sodium Level 136 mmol/L (136-145) Potassium Level 3.9 mmol/L (3.5-5.1) Chloride Level 98 mmol/L (98-107) Carbon Dioxide Level 33 mmol/L (21-32) Anion Gap 5 (6-14) Blood Urea Nitrogen 29 mg/dL (8-26) Creatinine 4.7 mg/dL (0.7-1.3) Estimated GFR (Cockcroft-Gault) 16.0 Glucose Level 94 mg/dL (70-99) Calcium Level 7.7 mg/dL (8.5-10.1) Random Vancomycin Level 12.2 mcg/mL Test 04/25/17 10:18 04/25/17 12:14 Glucose (Fingerstick) 106 mg/dL (70-99) 230 mg/dL (70-99) Laboratory Tests Test 04/24/17 13:22 04/24/17 21:10 04/25/17 05:07 04/25/17 07:59 Glucose (Fingerstick) 99 mg/dL (70-99) 100 mg/dL (70-99) 94 mg/dL (70-99) White Blood Count 6.1 x10^3/uL (4.0-11.0) Red Blood Count 2.60 x10^6/uL (4.30-5.70) Hemoglobin 7.9 g/dL (13.0-17.5) Hematocrit 23.6 % (39.0-53.0) Mean Corpuscular Volume 91 fL (79-100) Mean Corpuscular Hemoglobin 31 pg (25-35) Mean Corpuscular Hemoglobin Concent 34 g/dL (31-37) Red Cell Distribution Width 16.1 % (11.5-14.5) Platelet Count 155 x10^3/uL (140-400) Neutrophils (%) (Auto) 64 % (31-73) Lymphocytes (%) (Auto) 17 % (24-48) Monocytes (%) (Auto) 16 % (0-9) Eosinophils (%) (Auto) 3 % (0-3) Basophils (%) (Auto) 0 % (0-3) Neutrophils # (Auto) 3.9 x10^3uL (1.8-7.7) Lymphocytes # (Auto) 1.0 x10^3/uL (1.0-4.8) Monocytes # (Auto) 1.0 x10^3/uL (0.0-1.1) Eosinophils # (Auto) 0.2 x10^3/uL (0.0-0.7) Basophils # (Auto) 0.0 x10^3/uL (0.0-0.2) Sodium Level 136 mmol/L (136-145) Potassium Level 3.9 mmol/L (3.5-5.1) Chloride Level 98 mmol/L (98-107) Carbon Dioxide Level 33 mmol/L (21-32) Anion Gap 5 (6-14) Blood Urea Nitrogen 29 mg/dL (8-26) Creatinine 4.7 mg/dL (0.7-1.3) Estimated GFR (Cockcroft-Gault) 16.0 Glucose Level 94 mg/dL (70-99) Calcium Level 7.7 mg/dL (8.5-10.1) Random Vancomycin Level 12.2 mcg/mL Test 04/25/17 10:18 04/25/17 12:14 Glucose (Fingerstick) 106 mg/dL (70-99) 230 mg/dL (70-99) Medications Current Medications Piperacillin Sod/ Tazobactam Sod (Zosyn Per Pharmacy) 1 each PRN DAILY PRN MC SEE COMMENTS; Start 04/23/17 at 18:30; Status UNV Vancomycin HCl (Vanco Per Pharmacy) 1 each PRN DAILY PRN MC SEE COMMENTS Last administered on 04/25/17 10:17; Start 04/23/17 at 18:30 Vancomycin HCl 2 gm/Sodium Chloride 500 ml @ 250 mls/hr 1X ONCE IV Last administered on 04/23/17 21:05; Start 04/23/17 at 19:00; Stop 04/23/17 at 20:59 ; Status DC Meropenem 500 mg/ Sodium Chloride 50 ml @ 100 mls/hr Q24H IV Last administered on 04/24/17 20:43; Start 04/23/17 at 20:00 Vancomycin HCl 1 each 1X ONCE MC Last administered on 04/25/17 05:00; Start 04/25/17 at 05:00; Stop 04/25/17 at 05:01; Status DC Insulin Aspart (NovoLOG) 0-7 UNITS TIDWMEALS SQ ; Start 04/23/17 at 20:00 Dextrose (Dextrose 50%-Water Syringe) 12.5 gm PRN Q15MIN PRN IV SEE COMMENTS; Start 04/23/17 at 20:00 Alprazolam (Xanax) 0.25 mg PRN Q6HRS PRN PO ANXIETY / AGITATION; Start at 20:00 Calcium Carbonate/ Glycine (Oscal) 500 mg TIDWMEALS PO Last administered on 11:48; Start 04/24/17 at 08:00 Citalopram Hydrobromide (CeleXA) 20 mg DAILY PO Last administered on 04/25/17 11:48; Start 04/24/17 at 09:00 Clopidogrel Bisulfate (Plavix) 75 mg DAILY07 PO ; Start 04/24/17 at 07:00; Stop 04/24/17 at 07:00; Status DC Diclofenac Sodium (Voltaren) 1 ayaz BID TP Last administered on 04/25/17 11:53 ; Start 04/23/17 at 21:00 Ergocalciferol (Vitamin D2) 50,000 unit Tu PO ; Start 05/01/17 at 09:00 Famotidine (Pepcid) 20 mg HS PO Last administered on 04/24/17 20:42; Start 06/29 at 21:00 Vitamin B Complex/ Vitamin C (Fernanda-Jimmy) 1 tab DAILY PO Last administered on 11:51; Start 04/24/17 at 09:00 Isosorbide Mononitrate (Imdur) 30 mg DAILY PO Last administered on 04/25/17 11 :50; Start 04/24/17 at 09:00 Levetiracetam (Keppra) 500 mg BID PO Last administered on 04/25/17 11:48; Start 04/23/17 at 21:00 Levothyroxine Sodium (Synthroid) 175 mcg DAILY07 PO ; Start 04/24/17 at 07:00 Lidocaine (Lidoderm) 1 patch DAILY TD Last administered on 04/25/17 11:52; Start 04/24/17 at 09:00 Meclizine HCl (Antivert) 12.5 mg TID PO Last administered on 04/25/17 11:48; Start 04/23/17 at 21:00 Metoprolol Tartrate (Lopressor) 50 mg BID PO Last administered on 04/25/17 11: 48; Start 04/23/17 at 21:00 Nitroglycerin (Nitrostat) 0.4 mg PRN Q5MIN PRN SL CHEST PAIN; Start 04/23/17 at 20:00 Ropinirole HCl (Requip) 0.25 mg DAILY PO Last administered on 04/25/17 11:47; Start 04/24/17 at 09:00 Sevelamer Carbonate (Renvela) 2,400 mg TIDWMEALS PO Last administered on 11:51; Start 04/24/17 at 08:00 Sodium Bicarbonate (Sodium Bicarbonate) 1,300 mg BID PO Last administered on 11:50; Start 04/23/17 at 21:00 Sucralfate (Carafate) 1 gm BID PO Last administered on 04/25/17 11:47; Start 04/23/17 at 21:00 Trazodone HCl (Desyrel) 50 mg QHS PO Last administered on 04/24/17 20:42; Start 04/23/17 at 21:00 Zolpidem Tartrate (Ambien) 5 mg PRN QHS PRN PO SLEEP; Start 04/23/17 at 20:00 Dexamethasone Sodium Phosphate (Decadron) 20 mg STK-MED ONCE .ROUTE ; Start 07/29 at 09:11; Stop 04/24/17 at 09:12; Status DC Ondansetron HCl (Zofran) 4 mg STK-MED ONCE .ROUTE ; Start 04/24/17 at 09:11; Stop 04/24/17 at 09:12; Status DC Propofol 20 ml @ As Directed STK-MED ONCE IV ; Start 04/24/17 at 09:11; Stop 07/29 at 09:12; Status DC Lidocaine HCl (Lidocaine Pf 2% Vial) 5 ml STK-MED ONCE .ROUTE ; Start 04/24/17 at 09:11; Stop 04/24/17 at 09:12; Status DC Fentanyl Citrate (Fentanyl 2ml Vial) 100 mcg STK-MED ONCE .ROUTE ; Start at 09:11; Stop 04/24/17 at 09:12; Status DC Lidocaine HCl (Xylocaine-Mpf 1% Vial) 2 ml STK-MED ONCE .ROUTE ; Start 04/24/17 at 10:37; Stop 04/24/17 at 10:38; Status DC Darbepoetin Jace (Aranesp) 60 mcg WEEKLYHS SQ Last administered on 04/24/17 20 :43; Start 04/24/17 at 21:00 Sodium Chloride 1,000 ml @ 0 mls/hr Q0M IV Last administered on 04/25/17 08: 18; Start 04/24/17 at 11:15 Bupivacaine HCl/ Epinephrine Bitart (Sensorcaine-Epi 0.25%-1:241222 Mpf) 30 ml STK-MED ONCE .ROUTE ; Start 04/24/17 at 11:03; Stop 04/24/17 at 11:04; Status DC Sodium Chloride 1,000 ml @ 1,000 mls/hr Q1H PRN IV hypotension; Start 04/24/17 at 15:04; Stop 04/24/17 at 21:03; Status DC Info (PHARMACY MONITORING -- do not chart) 1 each PRN DAILY PRN MC SEE COMMENTS ; Start 04/24/17 at 15:15 Vancomycin HCl 2 gm/Sodium Chloride 500 ml @ 250 mls/hr 1X ONCE IV Last administered on 04/25/17 07:00; Start 04/25/17 at 07:00; Stop 04/25/17 at 08:59 ; Status DC Vancomycin HCl 1 each 1X ONCE MC ; Start 04/26/17 at 05:00; Stop 04/26/17 at 05 :01 Bupivacaine HCl/ Epinephrine Bitart (Sensorcaine-Epi 0.25%-1:344650 Mpf) 30 ml STK-MED ONCE .ROUTE ; Start 04/25/17 at 07:27; Stop 04/25/17 at 07:28; Status DC Fentanyl Citrate (Fentanyl 2ml Vial) 25 mcg PRN Q5MIN PRN IV MILD PAIN; Start 04/25/17 at 08:00; Stop 04/25/17 at 18:00 Fentanyl Citrate (Fentanyl 2ml Vial) 50 mcg PRN Q5MIN PRN IV MODERATE PAIN Last administered on 04/25/17 10:20; Start 04/25/17 at 08:00; Stop 04/25/17 at 18:00 Morphine Sulfate 1 mg PRN Q10MIN PRN IV SEVERE PAIN Last administered on 11:25; Start 04/25/17 at 08:00; Stop 04/25/17 at 18:00 Ringer's Solution 1,000 ml @ 30 mls/hr Q24H IV ; Start 04/25/17 at 07:47; Stop 04/25/17 at 19:46 Lidocaine HCl 2 ml PRN 1X PRN ID PRIOR TO IV START; Start 04/25/17 at 08:00; Stop 04/25/17 at 18:00 Hydromorphone HCl (Dilaudid) 0.5 mg PRN Q10MIN PRN IV SEV PAIN, Second choice Last administered on 04/25/17t 11:05; Start 04/25/17 at 08:00; Stop 04/25/17 at 18:00 Prochlorperazine Edisylate (Compazine) 5 mg PACU PRN PRN IV NAUSEA, MRX1 Last administered on 04/25/17t 10:24; Start 04/25/17 at 08:00; Stop 04/25/17 at 18:00 Lidocaine HCl (Xylocaine-Mpf 1% Vial) 2 ml STK-MED ONCE .ROUTE ; Start 04/24/17 at 10:40; Stop 04/25/17 at 08:04; Status DC Dexamethasone Sodium Phosphate (Decadron) 20 mg STK-MED ONCE .ROUTE ; Start at 08:12; Stop 04/25/17 at 08:13; Status DC Ondansetron HCl (Zofran) 4 mg STK-MED ONCE .ROUTE ; Start 04/25/17 at 08:12; Stop 04/25/17 at 08:13; Status DC Propofol 20 ml @ As Directed STK-MED ONCE IV ; Start 04/25/17 at 08:12; Stop at 08:13; Status DC Lidocaine HCl (Lidocaine Pf 2% Vial) 5 ml STK-MED ONCE .ROUTE ; Start 04/25/17 at 08:12; Stop 04/25/17 at 08:13; Status DC Fentanyl Citrate (Fentanyl 2ml Vial) 100 mcg STK-MED ONCE .ROUTE ; Start at 08:12; Stop 04/25/17 at 08:13; Status DC Succinylcholine Chloride (Anectine) 200 mg STK-MED ONCE .ROUTE ; Start 04/25/17 at 08:13; Stop 04/25/17 at 08:14; Status DC Midazolam HCl (Versed) 2 mg STK-MED ONCE .ROUTE ; Start 04/25/17 at 08:18; Stop 04/25/17 at 08:19; Status DC Desflurane (Suprane) 60 ml STK-MED ONCE IH ; Start 04/25/17 at 08:32; Stop 04/25 at 08:33; Status DC Esmolol HCl (Brevibloc) 100 mg STK-MED ONCE IV ; Start 04/25/17 at 09:06; Stop 04/25/17 at 09:07; Status DC Fentanyl Citrate (Fentanyl 2ml Vial) 100 mcg STK-MED ONCE .ROUTE ; Start at 09:16; Stop 04/25/17 at 09:17; Status DC Prochlorperazine Edisylate (Compazine) 10 mg STK-MED ONCE .ROUTE ; Start at 10:11; Stop 04/25/17 at 10:12; Status DC Fentanyl Citrate (Fentanyl 2ml Vial) 100 mcg STK-MED ONCE .ROUTE ; Start at 10:11; Stop 04/25/17 at 10:12; Status DC Oxycodone HCl (Roxicodone) 5 mg PRN Q3HRS PRN PO PAIN; Start 04/25/17 at 10:15 Morphine Sulfate 2 mg PRN Q1HR PRN IV PAIN; Start 04/25/17 at 10:15 Fentanyl Citrate (Fentanyl 2ml Vial) 25 mcg PRN Q1HR PRN IV PAIN Last administered on 04/25/17t 11:46; Start 04/25/17 at 10:15 Senna/Docusate Sodium (Senna Plus) 1 tab DAILY PO ; Start 04/26/17 at 09:00 Polyethylene Glycol (miraLAX PACKET) 17 gm PRN DAILY PRN PO CONSTIPATION; Start 04/25/17 at 10:15 Ondansetron HCl (Zofran) 4 mg PRN Q4HRS PRN IV NAUSEA/VOMITING; Start 04/25/17 at 10:15 Magnesium Hydroxide (Milk Of Magnesia) 2,400 mg 1X PRN PRN PO CONSTIPATION; Start 04/26/17 at 06:00; Stop 04/27/17 at 05:59 Bisacodyl (Dulcolax Supp) 10 mg 1X PRN PRN [place] CONSTIPATION; Start 04/26/17 at 16:00; Stop 04/27/17 at 15:59 Acetaminophen/ Hydrocodone Bitart (Lortab 7.5/325) 1 tab PRN Q4HRS PRN PO PAIN Last administered on 04/25/17t 11:47; Start 04/25/17 at 10:15 Morphine Sulfate 4 mg PRN Q2HR PRN IV PAIN; Start 04/25/17 at 10:15 Acetaminophen/ Hydrocodone Bitart (Lortab 7.5/325) 2 tab PRN Q4HRS PRN PO PAIN ; Start 04/25/17 at 10:15 Dextrose (Dextrose 50%-Water Syringe) 12.5 gm PRN Q15MIN PRN IV SEE COMMENTS; Start 04/25/17 at 10:15 Hydromorphone HCl (Dilaudid) 2 mg STK-MED ONCE .ROUTE ; Start 04/25/17 at 10:28 ; Stop 04/25/17 at 10:29; Status DC Morphine Sulfate 2 mg STK-MED ONCE .ROUTE ; Start 04/25/17 at 10:54; Stop at 10:55; Status DC Active Scripts Active Levetiracetam 500 Mg Tablet 500 Mg PO BID Lidoderm (Lidocaine) 700 Mg Adh..patch 1 Patch TD DAILY Metoprolol Tartrate 50 Mg Tablet 50 Mg PO BID Synthroid (Levothyroxine Sodium) 175 Mcg Tablet 175 Mcg PO DAILY07 Isosorbide Mononitrate Er (Isosorbide Mononitrate) 30 Mg Tab.er.24h 30 Mg PO DAILY Reported Sodium Bicarbonate 650 Mg Tablet 2 Tab PO BID on dialysis days sunday, and sunday Meclizine Hcl 12.5 Mg Tablet 1 Tab PO TID Calcium Carbonate 500 Mg Tablet 500 Mg PO TIDWMEALS Ambien (Zolpidem Tartrate) 5 Mg Tablet 5 Mg PO HS PRN Alprazolam 0.25 Mg Tablet 1 Tab PO PRN Ventolin Hfa Inhaler (Albuterol Sulfate) 18 Gm Hfa.aer.ad 1 Puff INH Q6HRS PRN Ropinirole Hcl 0.25 Mg Tablet 0.25 Mg PO Citalopram Hbr (Citalopram Hydrobromide) 20 Mg Tablet 1 Tab PO DAILY Trazodone Hcl 50 Mg Tablet 0.5-1 Tab PO QHS Risperidone 0.5 Mg Tablet 1 Tab PO QHS Famotidine 20 Mg Tablet 20 Mg PO HS Coumadin (Warfarin Sodium) 5 Mg Tablet 1 Tab PO DAILY Nephro-Jimmy Tablet (Folic Acid/Vitamin B Comp W-C) 0.8 Mg Tablet 1 Tab PO DAILY Carafate (Sucralfate) 1 Gm Tablet 1 Tab PO BID Nitrostat (Nitroglycerin) 0.4 Mg Tab.subl 0.4 Mg SL PRN Q5MIN PRN Voltaren (Diclofenac Sodium) 100 Gm Gel..gram. 1 Gm TP BID Clopidogrel (Clopidogrel Bisulfate) 75 Mg Tablet 75 Mg PO DAILY07 Renvela (Sevelamer Carbonate) 800 Mg Tablet 2,400 Tab PO TIDWMEALS Vitamin D2 (Ergocalciferol (Vitamin D2)) 50,000 Unit Capsule 50,000 Unit PO WEEKLY weekly on Sunday Atorvastatin Calcium 80 Mg Tablet 80 Mg PO HS Vitals/I & O Vital Sign - Last 24 Hours 04/24/17 04/24/17 04/24/17 04/24/17 14:18 19:39 20:00 20:42 Temp 100.2 100.2 Pulse 81 100 100 Resp 18 B/P (MAP) 130/60 132/61 (84) 132/61 Pulse Ox 98 O2 Delivery Room Air Room Air 04/24/17 04/25/17 04/25/17 04/25/17 22:21 02:42 07:00 08:09 Temp 99.8 98.3 98.1 98.1 99.8 98.3 98.1 98.1 Pulse 89 82 86 86 Resp 18 18 18 15 B/P (MAP) 82/44 (57) 125/64 (84) 117/58 (77) 117/58 Pulse Ox 95 96 98 98 O2 Delivery Room Air Room Air Room Air Room Air 04/25/17 04/25/17 04/25/17 04/25/17 10:13 10:20 10:25 10:25 Temp 101.7 101.7 Pulse 90 Resp 12 16 16 B/P (MAP) 135/74 Pulse Ox 100 O2 Delivery Simple Mask Simple Mask Nasal Cannula O2 Flow Rate 10 10.0 2 04/25/17 04/25/17 04/25/17 04/25/17 10:28 10:35 10:43 10:45 Pulse 94 101 Resp 16 16 16 16 B/P (MAP) 123/62 147/78 Pulse Ox 99 98 99 O2 Delivery Simple Mask Room Air Nasal Cannula Room Air O2 Flow Rate 10 2 04/25/17 04/25/17 04/25/17 04/25/17 10:55 10:58 11:05 11:13 Pulse 92 96 Resp 16 16 16 16 B/P (MAP) 147/70 138/78 Pulse Ox 99 98 O2 Delivery Room Air Nasal Cannula Nasal Cannula Room Air O2 Flow Rate 2 04/25/17 04/25/17 04/25/17 04/25/17 11:25 11:30 11:31 11:45 Temp 98.8 98.8 98.8 98.8 Pulse 103 100 Resp 16 18 18 B/P (MAP) 130/69 (89) 124/75 (91) Pulse Ox 98 97 99 O2 Delivery Nasal Cannula Nasal Cannula Nasal Cannula O2 Flow Rate 2.0 2.0 2.0 2.0 04/25/17 04/25/17 04/25/17 04/25/17 11:45 11:46 11:47 11:48 Pulse 100 100 Resp 18 18 B/P (MAP) 130/69 (89) 124/75 Pulse Ox 100 95 95 O2 Delivery Nasal Cannula Nasal Cannula Nasal Cannula O2 Flow Rate 2.0 2.0 04/25/17 04/25/17 04/25/17 04/25/17 11:50 11:55 12:00 12:16 Pulse 100 73 Resp 18 18 B/P (MAP) 124/75 145/65 (91) Pulse Ox 2 100 96 O2 Delivery Nasal Cannula Nasal Cannula Nasal Cannula O2 Flow Rate 2.0 2.0 04/25/17 12:47 Resp 18 Pulse Ox 96 O2 Delivery Nasal Cannula O2 Flow Rate 2.0 Intake and Output 04/25/17 04/25/17 04/26/17 15:00 23:00 07:00 Output Total 300 ml Balance -300 ml VIC [email or web address] III DO Apr 25, 2017 13:17
[2017-04-25] MEDS: MEROPENEM 500 MG in IV NORMAL SALINE 50ML 50 ML IV SCH (20:11)
[2017-04-25] MEDS: oxyCODONE/APAP 10/325 1 TAB TABLET PO PRN (20:12)
[2017-04-25] MEDS: traZODone 50 MG TABLET. PO SCH (20:13)
[2017-04-25] MEDS: FAMOTIDINE 20 MG TABLET. PO SCH (20:13)
[2017-04-25] MEDS: ZOLPIDEM 5 MG TABLET. PO PRN (23:09)
[2017-04-26] MEDS: oxyCODONE/APAP 10/325 1 TAB TABLET PO PRN ×5 (01:36→18:36)
[2017-04-26] MEDS: MORPHINE SULFATE 2 MG/ML DISP.SYRIN. IV PRN ×3 (01:41→22:35)
[2017-04-26 03:00] VITALS: BP 123/54
[2017-04-26] MEDS ORDERED: VANCOMYCIN RANDOM LEVEL. MC ONE (05:00)
[2017-04-26] MEDS ORDERED: MAGNESIUM HYDROXIDE 2,400 MG/30 ML ORAL.SUSP. PO PRN (06:00)
[2017-04-26] MEDS: LEVOTHYROXINE 175 MCG TABLET PO SCH (06:29)
[2017-04-26 07:00] VITALS: BP 129/60
[2017-04-26 07:24] LABS: BASO # 0.1 x10^3/uL (0.0-0.2); BASO % 1 % (0-3); EOS % 0 % (0-3); HEMATOCRIT 24.4 % (39.0-53.0); LYMPH % 12 % (24-48); MEAN CORPUSCULAR HEMOGLOBIN 30 pg (25-35); MEAN CORPUSCULAR HGB CONC 33 g/dL (31-37); MEAN CORPUSCULAR VOLUME 93 fL (79-100); MONO % 13 % (0-9); NEUT % 74 % (31-73); PLATELET COUNT 144 x10^3/uL (140-400); RED BLOOD COUNT 2.64 x10^6/uL (4.30-5.70); RED CELL DISTRIBUTION WIDTH 15.5 % (11.5-14.5); WHITE BLOOD COUNT 8.6 x10^3/uL (4.0-11.0)
[2017-04-26 07:37] LABS: CALCIUM 8.2 mg/dL (8.5-10.1); CREATININE 6.2 mg/dL (0.7-1.3); GFR 11.6; POTASSIUM 4.5 mmol/L (3.5-5.1)
[2017-04-26] MEDS: SEVELAMER CARBONATE 800 MG TABLET. PO SCH ×3 (08:00→18:35)
[2017-04-26] MEDS: INSULIN ASPART 300 UNITS/3 ML INSULN.PEN SQ SCH ×3 (08:00→18:43)
[2017-04-26] MEDS: CALCIUM CARBONATE 500 MG TABLET PO SCH ×3 (08:00→18:35)
[2017-04-26] MEDS: LIDOCAINE (700MG/PATCH) PATCH. TD SCH (08:29)
[2017-04-26] MEDS ORDERED: IV NORMAL SALINE 1000ML BAG 1,000 ML IV PRN ×2 (08:38)
[2017-04-26] MEDS ORDERED: DIALYSIS PATIENT. MC PRN (08:45)
[2017-04-26] MEDS ORDERED: diphenhydrAMINE 50 MG/ML VIAL IV PRN ×2 (08:45)
[2017-04-26] MEDS: MECLIZINE HCL 12.5 MG TABLET. PO SCH ×3 (09:00→19:50)
[2017-04-26] MEDS: FOLIC/VIT B COMP W-C (RENAL) TABLET. PO SCH ×2 (09:00→15:02)
[2017-04-26] MEDS: levETIRAcetam 500 MG TABLET PO SCH ×3 (09:00→19:51)
[2017-04-26] MEDS: CITALOPRAM 20 MG TABLET. PO SCH ×2 (09:00→15:07)
[2017-04-26] MEDS: METOPROLOL TART IMMED RELEASE 50 MG TABLET. PO SCH ×3 (09:00→19:51)
[2017-04-26] MEDS: SUCRALFATE 1 GM TABLET. PO SCH ×2 (09:00→19:50)
[2017-04-26] MEDS: SODIUM BICARBONATE 650 MG TABLET. PO SCH ×3 (09:00→19:50)
[2017-04-26] MEDS: DICLOFENAC SODIUM 1% TOPICAL GEL 100GM TUBE. TP SCH ×2 (09:00→19:51)
[2017-04-26] MEDS: SENNOSIDES/DOCUSATE 8.6/50MG TABLET. PO SCH ×2 (09:00→15:02)
[2017-04-26] MEDS: ISOSORBIDE MONONITRATE ER 30 MG TAB.ER.24H PO SCH (09:00)
[2017-04-26] MEDS: rOPINIRole 0.25 MG TABLET. PO SCH ×2 (09:00→15:02)
--- NOTE | 2017-04-26 11:32 | PDOC ---
Renal-Progress Notes Subjective Notes Notes ASLEEP History of Present Illness Hx of present illness NO CHANGE Vitals Vitals Vital Signs Date Time Temp Pulse Resp B/P (MAP) Pulse Ox O2 Delivery O2 Flow Rate FiO2 04/26/17 10:31 93 Room Air 04/26/17 08:29 2.0 04/26/17 07:00 97.7 81 18 129/60 (83) 97.7 Weight Weight [ ] Labs Labs Laboratory Tests Test 04/25/17 12:14 04/25/17 16:40 04/25/17 17:33 04/25/17 20:57 Glucose (Fingerstick) 230 mg/dL (70-99) 352 mg/dL (70-99) 373 mg/dL (70-99) 347 mg/dL (70-99) Test 04/26/17 07:15 04/26/17 07:34 White Blood Count 8.6 x10^3/uL (4.0-11.0) Red Blood Count 2.64 x10^6/uL (4.30-5.70) Hemoglobin 8.0 g/dL (13.0-17.5) Hematocrit 24.4 % (39.0-53.0) Mean Corpuscular Volume 93 fL (79-100) Mean Corpuscular Hemoglobin 30 pg (25-35) Mean Corpuscular Hemoglobin Concent 33 g/dL (31-37) Red Cell Distribution Width 15.5 % (11.5-14.5) Platelet Count 144 x10^3/uL (140-400) Neutrophils (%) (Auto) 74 % (31-73) Lymphocytes (%) (Auto) 12 % (24-48) Monocytes (%) (Auto) 13 % (0-9) Eosinophils (%) (Auto) 0 % (0-3) Basophils (%) (Auto) 1 % (0-3) Neutrophils # (Auto) 6.4 x10^3uL (1.8-7.7) Lymphocytes # (Auto) 1.0 x10^3/uL (1.0-4.8) Monocytes # (Auto) 1.1 x10^3/uL (0.0-1.1) Eosinophils # (Auto) 0.0 x10^3/uL (0.0-0.7) Basophils # (Auto) 0.1 x10^3/uL (0.0-0.2) Sodium Level 134 mmol/L (136-145) Potassium Level 4.5 mmol/L (3.5-5.1) Chloride Level 96 mmol/L (98-107) Carbon Dioxide Level 32 mmol/L (21-32) Anion Gap 6 (6-14) Blood Urea Nitrogen 45 mg/dL (8-26) Creatinine 6.2 mg/dL (0.7-1.3) Estimated GFR (Cockcroft-Gault) 11.6 Glucose Level 206 mg/dL (70-99) Calcium Level 8.2 mg/dL (8.5-10.1) Random Vancomycin Level 26.9 mcg/mL Glucose (Fingerstick) 201 mg/dL (70-99) Review of Systems Constitutional: yes: weakness, alert, oriented Ears/Nose/Throat: Yes: no symptom reported Eyes: Yes: no symptom reported Gastrointestional: Yes: constipation Genitourinary: Yes: no symptom reported Musculoskeletal: Yes: leg pain Skin: Yes color change Psychiatric/Neurological: Yes: no symptom reported Physical Exam General Appearance: no apparent distress Skin: warm Respiratory: decreased breath sounds Heart: S1S2 Abdomen: soft, bowel sounds present Genitourinary: bladder flat Extremities: pulses present, atrophy Neurology: alert Assessment Assessment IMP ANEMIA DM II HTN ESRD LLE WOUND S/P BKA PLAN CONT ARANESP HD TODAY UF TO GRACE BUSTILLOS MD Apr 26, 2017 11:31
--- NOTE | 2017-04-26 12:25 | PDOC ---
PROGRESS NOTES Chief Complaint Chief Complaint Peripheral vascular disease L LE infection ESRD Hyperlipidemia HTN DM2 Depression Anemia History of Present Illness History of Present Illness Pt fell asleep after medical exam. Currently receiving dialysis Vitals Vitals Vital Signs Date Time Temp Pulse Resp B/P (MAP) Pulse Ox O2 Delivery O2 Flow Rate FiO2 04/26/17 10:31 93 Room Air 04/26/17 08:29 2.0 04/26/17 07:00 97.7 81 18 129/60 (83) 97.7 Physical Exam General: Alert, Oriented X3, Cooperative, No acute distress Heart: Regular rate, Normal S1, Normal S2 Lungs: Clear, Other (no acute respiratory distress noted) Abdomen: Normal bowel sounds, Soft, No tenderness Extremities: No clubbing, No cyanosis, Other Skin: No rashes, No breakdown, Other Labs LABS Laboratory Tests Test 04/25/17 16:40 04/25/17 17:33 04/25/17 20:57 04/26/17 07:15 Glucose (Fingerstick) 352 mg/dL (70-99) 373 mg/dL (70-99) 347 mg/dL (70-99) White Blood Count 8.6 x10^3/uL (4.0-11.0) Red Blood Count 2.64 x10^6/uL (4.30-5.70) Hemoglobin 8.0 g/dL (13.0-17.5) Hematocrit 24.4 % (39.0-53.0) Mean Corpuscular Volume 93 fL (79-100) Mean Corpuscular Hemoglobin 30 pg (25-35) Mean Corpuscular Hemoglobin Concent 33 g/dL (31-37) Red Cell Distribution Width 15.5 % (11.5-14.5) Platelet Count 144 x10^3/uL (140-400) Neutrophils (%) (Auto) 74 % (31-73) Lymphocytes (%) (Auto) 12 % (24-48) Monocytes (%) (Auto) 13 % (0-9) Eosinophils (%) (Auto) 0 % (0-3) Basophils (%) (Auto) 1 % (0-3) Neutrophils # (Auto) 6.4 x10^3uL (1.8-7.7) Lymphocytes # (Auto) 1.0 x10^3/uL (1.0-4.8) Monocytes # (Auto) 1.1 x10^3/uL (0.0-1.1) Eosinophils # (Auto) 0.0 x10^3/uL (0.0-0.7) Basophils # (Auto) 0.1 x10^3/uL (0.0-0.2) Sodium Level 134 mmol/L (136-145) Potassium Level 4.5 mmol/L (3.5-5.1) Chloride Level 96 mmol/L (98-107) Carbon Dioxide Level 32 mmol/L (21-32) Anion Gap 6 (6-14) Blood Urea Nitrogen 45 mg/dL (8-26) Creatinine 6.2 mg/dL (0.7-1.3) Estimated GFR (Cockcroft-Gault) 11.6 Glucose Level 206 mg/dL (70-99) Calcium Level 8.2 mg/dL (8.5-10.1) Random Vancomycin Level 26.9 mcg/mL Test 04/26/17 07:34 Glucose (Fingerstick) 201 mg/dL (70-99) Review of Systems Review of Systems c/o hunger c/o fatigue Assessment and Plan Assessmemt and Plan Post-op day 2. Continue wound care & pain meds PRN. Peripheral vascular disease: continue home meds. Monitor ESRD: continue dialysis Hyperlipidemia: continue to monitor levels. HTN: monitor DM2: monitor. Continue meds Depression: continue celexa Anemia: continue to monitor PTOT Problems: Comment Review of Relevant I have reviewed the following items lila (where applicable) has been applied. Labs Laboratory Tests Test 04/24/17 13:22 04/24/17 21:10 04/25/17 05:07 04/25/17 07:59 Glucose (Fingerstick) 99 mg/dL (70-99) 100 mg/dL (70-99) 94 mg/dL (70-99) White Blood Count 6.1 x10^3/uL (4.0-11.0) Red Blood Count 2.60 x10^6/uL (4.30-5.70) Hemoglobin 7.9 g/dL (13.0-17.5) Hematocrit 23.6 % (39.0-53.0) Mean Corpuscular Volume 91 fL (79-100) Mean Corpuscular Hemoglobin 31 pg (25-35) Mean Corpuscular Hemoglobin Concent 34 g/dL (31-37) Red Cell Distribution Width 16.1 % (11.5-14.5) Platelet Count 155 x10^3/uL (140-400) Neutrophils (%) (Auto) 64 % (31-73) Lymphocytes (%) (Auto) 17 % (24-48) Monocytes (%) (Auto) 16 % (0-9) Eosinophils (%) (Auto) 3 % (0-3) Basophils (%) (Auto) 0 % (0-3) Neutrophils # (Auto) 3.9 x10^3uL (1.8-7.7) Lymphocytes # (Auto) 1.0 x10^3/uL (1.0-4.8) Monocytes # (Auto) 1.0 x10^3/uL (0.0-1.1) Eosinophils # (Auto) 0.2 x10^3/uL (0.0-0.7) Basophils # (Auto) 0.0 x10^3/uL (0.0-0.2) Sodium Level 136 mmol/L (136-145) Potassium Level 3.9 mmol/L (3.5-5.1) Chloride Level 98 mmol/L (98-107) Carbon Dioxide Level 33 mmol/L (21-32) Anion Gap 5 (6-14) Blood Urea Nitrogen 29 mg/dL (8-26) Creatinine 4.7 mg/dL (0.7-1.3) Estimated GFR (Cockcroft-Gault) 16.0 Glucose Level 94 mg/dL (70-99) Calcium Level 7.7 mg/dL (8.5-10.1) Random Vancomycin Level 12.2 mcg/mL Test 04/25/17 10:18 04/25/17 12:14 04/25/17 16:40 04/25/17 17:33 Glucose (Fingerstick) 106 mg/dL (70-99) 230 mg/dL (70-99) 352 mg/dL (70-99) 373 mg/dL (70-99) Test 04/25/17 20:57 04/26/17 07:15 04/26/17 07:34 Glucose (Fingerstick) 347 mg/dL (70-99) 201 mg/dL (70-99) White Blood Count 8.6 x10^3/uL (4.0-11.0) Red Blood Count 2.64 x10^6/uL (4.30-5.70) Hemoglobin 8.0 g/dL (13.0-17.5) Hematocrit 24.4 % (39.0-53.0) Mean Corpuscular Volume 93 fL (79-100) Mean Corpuscular Hemoglobin 30 pg (25-35) Mean Corpuscular Hemoglobin Concent 33 g/dL (31-37) Red Cell Distribution Width 15.5 % (11.5-14.5) Platelet Count 144 x10^3/uL (140-400) Neutrophils (%) (Auto) 74 % (31-73) Lymphocytes (%) (Auto) 12 % (24-48) Monocytes (%) (Auto) 13 % (0-9) Eosinophils (%) (Auto) 0 % (0-3) Basophils (%) (Auto) 1 % (0-3) Neutrophils # (Auto) 6.4 x10^3uL (1.8-7.7) Lymphocytes # (Auto) 1.0 x10^3/uL (1.0-4.8) Monocytes # (Auto) 1.1 x10^3/uL (0.0-1.1) Eosinophils # (Auto) 0.0 x10^3/uL (0.0-0.7) Basophils # (Auto) 0.1 x10^3/uL (0.0-0.2) Sodium Level 134 mmol/L (136-145) Potassium Level 4.5 mmol/L (3.5-5.1) Chloride Level 96 mmol/L (98-107) Carbon Dioxide Level 32 mmol/L (21-32) Anion Gap 6 (6-14) Blood Urea Nitrogen 45 mg/dL (8-26) Creatinine 6.2 mg/dL (0.7-1.3) Estimated GFR (Cockcroft-Gault) 11.6 Glucose Level 206 mg/dL (70-99) Calcium Level 8.2 mg/dL (8.5-10.1) Random Vancomycin Level 26.9 mcg/mL Laboratory Tests Test 04/25/17 16:40 04/25/17 17:33 04/25/17 20:57 04/26/17 07:15 Glucose (Fingerstick) 352 mg/dL (70-99) 373 mg/dL (70-99) 347 mg/dL (70-99) White Blood Count 8.6 x10^3/uL (4.0-11.0) Red Blood Count 2.64 x10^6/uL (4.30-5.70) Hemoglobin 8.0 g/dL (13.0-17.5) Hematocrit 24.4 % (39.0-53.0) Mean Corpuscular Volume 93 fL (79-100) Mean Corpuscular Hemoglobin 30 pg (25-35) Mean Corpuscular Hemoglobin Concent 33 g/dL (31-37) Red Cell Distribution Width 15.5 % (11.5-14.5) Platelet Count 144 x10^3/uL (140-400) Neutrophils (%) (Auto) 74 % (31-73) Lymphocytes (%) (Auto) 12 % (24-48) Monocytes (%) (Auto) 13 % (0-9) Eosinophils (%) (Auto) 0 % (0-3) Basophils (%) (Auto) 1 % (0-3) Neutrophils # (Auto) 6.4 x10^3uL (1.8-7.7) Lymphocytes # (Auto) 1.0 x10^3/uL (1.0-4.8) Monocytes # (Auto) 1.1 x10^3/uL (0.0-1.1) Eosinophils # (Auto) 0.0 x10^3/uL (0.0-0.7) Basophils # (Auto) 0.1 x10^3/uL (0.0-0.2) Sodium Level 134 mmol/L (136-145) Potassium Level 4.5 mmol/L (3.5-5.1) Chloride Level 96 mmol/L (98-107) Carbon Dioxide Level 32 mmol/L (21-32) Anion Gap 6 (6-14) Blood Urea Nitrogen 45 mg/dL (8-26) Creatinine 6.2 mg/dL (0.7-1.3) Estimated GFR (Cockcroft-Gault) 11.6 Glucose Level 206 mg/dL (70-99) Calcium Level 8.2 mg/dL (8.5-10.1) Random Vancomycin Level 26.9 mcg/mL Test 9/14/17 07:34 Glucose (Fingerstick) 201 mg/dL (70-99) Medications Current Medications Piperacillin Sod/ Tazobactam Sod (Zosyn Per Pharmacy) 1 each PRN DAILY PRN MC SEE COMMENTS; Start 04/23/17 at 18:30; Status UNV Vancomycin HCl (Vanco Per Pharmacy) 1 each PRN DAILY PRN MC SEE COMMENTS Last administered on 04/25/17 10:17; Start 04/23/17 at 18:30 Vancomycin HCl 2 gm/Sodium Chloride 500 ml @ 250 mls/hr 1X ONCE IV Last administered on 04/23/17 21:05; Start 04/23/17 at 19:00; Stop 04/23/17 at 20:59 ; Status DC Meropenem 500 mg/ Sodium Chloride 50 ml @ 100 mls/hr Q24H IV Last administered on 04/25/17 20:11; Start 04/23/17 at 20:00 Vancomycin HCl 1 each 1X ONCE MC Last administered on 04/25/17 05:00; Start 04/25/17 at 05:00; Stop 04/25/17 at 05:01; Status DC Insulin Aspart (NovoLOG) 0-7 UNITS TIDWMEALS SQ Last administered on 04/25/17 17:38; Start 04/23/17 at 20:00 Dextrose (Dextrose 50%-Water Syringe) 12.5 gm PRN Q15MIN PRN IV SEE COMMENTS; Start 04/23/17 at 20:00 Alprazolam (Xanax) 0.25 mg PRN Q6HRS PRN PO ANXIETY / AGITATION; Start at 20:00 Calcium Carbonate/ Glycine (Oscal) 500 mg TIDWMEALS PO Last administered on 17:39; Start 04/24/17 at 08:00 Citalopram Hydrobromide (CeleXA) 20 mg DAILY PO Last administered on 04/25/17 11:48; Start 04/24/17 at 09:00 Clopidogrel Bisulfate (Plavix) 75 mg DAILY07 PO ; Start 04/24/17 at 07:00; Stop 04/24/17 at 07:00; Status DC Diclofenac Sodium (Voltaren) 1 ayaz BID TP Last administered on 04/25/17 11:53 ; Start 04/23/17 at 21:00 Ergocalciferol (Vitamin D2) 50,000 unit Tu PO ; Start 05/01/17 at 09:00 Famotidine (Pepcid) 20 mg HS PO Last administered on 04/25/17 20:13; Start 06/29 at 21:00 Vitamin B Complex/ Vitamin C (Fernanda-Jimmy) 1 tab DAILY PO Last administered on 11:51; Start 04/24/17 at 09:00 Isosorbide Mononitrate (Imdur) 30 mg DAILY PO Last administered on 04/25/17 11 :50; Start 04/24/17 at 09:00 Levetiracetam (Keppra) 500 mg BID PO Last administered on 04/25/17 20:15; Start 04/23/17 at 21:00 Levothyroxine Sodium (Synthroid) 175 mcg DAILY07 PO Last administered on 06:29; Start 04/24/17 at 07:00 Lidocaine (Lidoderm) 1 patch DAILY TD Last administered on 04/26/17 08:29; Start 04/24/17 at 09:00 Meclizine HCl (Antivert) 12.5 mg TID PO Last administered on 04/25/17 20:14; Start 04/23/17 at 21:00 Metoprolol Tartrate (Lopressor) 50 mg BID PO Last administered on 04/25/17 20: 15; Start 04/23/17 at 21:00 Nitroglycerin (Nitrostat) 0.4 mg PRN Q5MIN PRN SL CHEST PAIN; Start 04/23/17 at 20:00 Ropinirole HCl (Requip) 0.25 mg DAILY PO Last administered on 04/25/17 11:47; Start 04/24/17 at 09:00 Sevelamer Carbonate (Renvela) 2,400 mg TIDWMEALS PO Last administered on 17:30; Start 04/24/17 at 08:00 Sodium Bicarbonate (Sodium Bicarbonate) 1,300 mg BID PO Last administered on 20:13; Start 04/23/17 at 21:00 Sucralfate (Carafate) 1 gm BID PO Last administered on 04/25/17 20:13; Start 04/23/17 at 21:00 Trazodone HCl (Desyrel) 50 mg QHS PO Last administered on 04/25/17 20:13; Start 04/23/17 at 21:00 Zolpidem Tartrate (Ambien) 5 mg PRN QHS PRN PO SLEEP Last administered on 23:09; Start 04/23/17 at 20:00 Dexamethasone Sodium Phosphate (Decadron) 20 mg STK-MED ONCE .ROUTE ; Start 07/29 at 09:11; Stop 04/24/17 at 09:12; Status DC Ondansetron HCl (Zofran) 4 mg STK-MED ONCE .ROUTE ; Start 04/24/17 at 09:11; Stop 04/24/17 at 09:12; Status DC Propofol 20 ml @ As Directed STK-MED ONCE IV ; Start 04/24/17 at 09:11; Stop 07/29 at 09:12; Status DC Lidocaine HCl (Lidocaine Pf 2% Vial) 5 ml STK-MED ONCE .ROUTE ; Start 04/24/17 at 09:11; Stop 04/24/17 at 09:12; Status DC Fentanyl Citrate (Fentanyl 2ml Vial) 100 mcg STK-MED ONCE .ROUTE ; Start at 09:11; Stop 04/24/17 at 09:12; Status DC Lidocaine HCl (Xylocaine-Mpf 1% Vial) 2 ml STK-MED ONCE .ROUTE ; Start 04/24/17 at 10:37; Stop 04/24/17 at 10:38; Status DC Darbepoetin Jace (Aranesp) 60 mcg WEEKLYHS SQ Last administered on 04/24/17 20 :43; Start 04/24/17 at 21:00 Sodium Chloride 1,000 ml @ 0 mls/hr Q0M IV Last administered on 04/25/17 08: 18; Start 04/24/17 at 11:15 Bupivacaine HCl/ Epinephrine Bitart (Sensorcaine-Epi 0.25%-1:853152 Mpf) 30 ml STK-MED ONCE .ROUTE ; Start 04/24/17 at 11:03; Stop 04/24/17 at 11:04; Status DC Sodium Chloride 1,000 ml @ 1,000 mls/hr Q1H PRN IV hypotension; Start 04/24/17 at 15:04; Stop 04/24/17 at 21:03; Status DC Info (PHARMACY MONITORING -- do not chart) 1 each PRN DAILY PRN MC SEE COMMENTS ; Start 04/24/17 at 15:15 Vancomycin HCl 2 gm/Sodium Chloride 500 ml @ 250 mls/hr 1X ONCE IV Last administered on 04/25/17 07:00; Start 04/25/17 at 07:00; Stop 04/25/17 at 08:59 ; Status DC Vancomycin HCl 1 each 1X ONCE MC Last administered on 04/26/17 06:00; Start 04/26/17 at 05:00; Stop 04/26/17 at 05:01; Status DC Bupivacaine HCl/ Epinephrine Bitart (Sensorcaine-Epi 0.25%-1:077533 Mpf) 30 ml STK-MED ONCE .ROUTE ; Start 04/25/17 at 07:27; Stop 04/25/17 at 07:28; Status DC Fentanyl Citrate (Fentanyl 2ml Vial) 25 mcg PRN Q5MIN PRN IV MILD PAIN; Start 04/25/17 at 08:00; Stop 04/25/17 at 18:00; Status DC Fentanyl Citrate (Fentanyl 2ml Vial) 50 mcg PRN Q5MIN PRN IV MODERATE PAIN Last administered on 04/25/17 10:20; Start 04/25/17 at 08:00; Stop 04/25/17 at 18:00; Status DC Morphine Sulfate 1 mg PRN Q10MIN PRN IV SEVERE PAIN Last administered on 11:25; Start 04/25/17 at 08:00; Stop 04/25/17 at 18:00; Status DC Ringer's Solution 1,000 ml @ 30 mls/hr Q24H IV ; Start 04/25/17 at 07:47; Stop 04/25/17 at 19:46; Status DC Lidocaine HCl 2 ml PRN 1X PRN ID PRIOR TO IV START; Start 04/25/17 at 08:00; Stop 04/25/17 at 18:00; Status DC Hydromorphone HCl (Dilaudid) 0.5 mg PRN Q10MIN PRN IV SEV PAIN, Second choice Last administered on 04/25/17 11:05; Start 04/25/17 at 08:00; Stop 04/25/17 at 18:00; Status DC Prochlorperazine Edisylate (Compazine) 5 mg PACU PRN PRN IV NAUSEA, MRX1 Last administered on 04/25/17t 10:24; Start 04/25/17 at 08:00; Stop 04/25/17 at 18:00 ; Status DC Lidocaine HCl (Xylocaine-Mpf 1% Vial) 2 ml STK-MED ONCE .ROUTE ; Start 04/24/17 at 10:40; Stop 04/25/17 at 08:04; Status DC Dexamethasone Sodium Phosphate (Decadron) 20 mg STK-MED ONCE .ROUTE ; Start at 08:12; Stop 04/25/17 at 08:13; Status DC Ondansetron HCl (Zofran) 4 mg STK-MED ONCE .ROUTE ; Start 04/25/17 at 08:12; Stop 04/25/17 at 08:13; Status DC Propofol 20 ml @ As Directed STK-MED ONCE IV ; Start 04/25/17 at 08:12; Stop at 08:13; Status DC Lidocaine HCl (Lidocaine Pf 2% Vial) 5 ml STK-MED ONCE .ROUTE ; Start 04/25/17 at 08:12; Stop 04/25/17 at 08:13; Status DC Fentanyl Citrate (Fentanyl 2ml Vial) 100 mcg STK-MED ONCE .ROUTE ; Start at 08:12; Stop 04/25/17 at 08:13; Status DC Succinylcholine Chloride (Anectine) 200 mg STK-MED ONCE .ROUTE ; Start 04/25/17 at 08:13; Stop 04/25/17 at 08:14; Status DC Midazolam HCl (Versed) 2 mg STK-MED ONCE .ROUTE ; Start 04/25/17 at 08:18; Stop 04/25/17 at 08:19; Status DC Desflurane (Suprane) 60 ml STK-MED ONCE IH ; Start 04/25/17 at 08:32; Stop 04/25 at 08:33; Status DC Esmolol HCl (Brevibloc) 100 mg STK-MED ONCE IV ; Start 04/25/17 at 09:06; Stop 04/25/17 at 09:07; Status DC Fentanyl Citrate (Fentanyl 2ml Vial) 100 mcg STK-MED ONCE .ROUTE ; Start at 09:16; Stop 04/25/17 at 09:17; Status DC Prochlorperazine Edisylate (Compazine) 10 mg STK-MED ONCE .ROUTE ; Start at 10:11; Stop 04/25/17 at 10:12; Status DC Fentanyl Citrate (Fentanyl 2ml Vial) 100 mcg STK-MED ONCE .ROUTE ; Start at 10:11; Stop 04/25/17 at 10:12; Status DC Oxycodone HCl (Roxicodone) 5 mg PRN Q3HRS PRN PO PAIN; Start 04/25/17 at 10:15 Morphine Sulfate 2 mg PRN Q1HR PRN IV PAIN Last administered on 04/26/17 08:29 ; Start 04/25/17 at 10:15 Fentanyl Citrate (Fentanyl 2ml Vial) 25 mcg PRN Q1HR PRN IV PAIN Last administered on 04/25/17 16:11; Start 04/25/17 at 10:15 Senna/Docusate Sodium (Senna Plus) 1 tab DAILY PO ; Start 04/26/17 at 09:00 Polyethylene Glycol (miraLAX PACKET) 17 gm PRN DAILY PRN PO CONSTIPATION; Start 04/25/17 at 10:15 Ondansetron HCl (Zofran) 4 mg PRN Q4HRS PRN IV NAUSEA/VOMITING; Start 04/25/17 at 10:15 Magnesium Hydroxide (Milk Of Magnesia) 2,400 mg 1X PRN PRN PO CONSTIPATION; Start 04/26/17 at 06:00; Stop 04/27/17 at 05:59 Bisacodyl (Dulcolax Supp) 10 mg 1X PRN PRN [place] CONSTIPATION; Start 04/26/17 at 16:00; Stop 04/27/17 at 15:59 Acetaminophen/ Hydrocodone Bitart (Lortab 7.5/325) 1 tab PRN Q4HRS PRN PO PAIN Last administered on 04/25/17 16:38; Start 04/25/17 at 10:15 Morphine Sulfate 4 mg PRN Q2HR PRN IV PAIN; Start 04/25/17 at 10:15 Acetaminophen/ Hydrocodone Bitart (Lortab 7.5/325) 2 tab PRN Q4HRS PRN PO PAIN ; Start 04/25/17 at 10:15 Dextrose (Dextrose 50%-Water Syringe) 12.5 gm PRN Q15MIN PRN IV SEE COMMENTS; Start 04/25/17 at 10:15 Hydromorphone HCl (Dilaudid) 2 mg STK-MED ONCE .ROUTE ; Start 04/25/17 at 10:28 ; Stop 04/25/17 at 10:29; Status DC Morphine Sulfate 2 mg STK-MED ONCE .ROUTE ; Start 04/25/17 at 10:54; Stop at 10:55; Status DC Oxycodone/ Acetaminophen (Percocet 10/325) 1 tab PRN Q4HRS PRN PO PAIN Last administered on 04/25/17 20:12; Start 04/25/17 at 17:00 Fentanyl Citrate (Fentanyl 2ml Vial) 50 mcg PRN Q1HR PRN IV PAIN Last administered on 04/25/17 17:42; Start 04/25/17 at 17:00 Oxycodone/ Acetaminophen (Percocet 10/325) 2 tab PRN Q4HRS PRN PO PAIN Last administered on 04/26/17 06:31; Start 04/25/17 at 17:00 Heparin Sodium (Porcine) (Heparin Sodium) 2,000 unit 1X ONCE IV Last administered on 04/26/17 09:31; Start 04/26/17 at 08:45; Stop 04/26/17 at 08:49 ; Status DC Sodium Chloride 1,000 ml @ 1,000 mls/hr Q1H PRN IV hypotension; Start 04/26/17 at 08:38; Stop 04/26/17 at 14:37 Diphenhydramine HCl (Benadryl) 25 mg 1X PRN PRN IV ITCHING; Start 04/26/17 at 08:45; Stop 04/27/17 at 08:44 Diphenhydramine HCl (Benadryl) 25 mg 1X PRN PRN IV ITCHING; Start 04/26/17 at 08:45; Stop 04/27/17 at 08:44 Sodium Chloride 1,000 ml @ 400 mls/hr Q2H30M PRN IV PATENCY; Start 04/26/17 at 08:38; Stop 04/26/17 at 20:37 Info (PHARMACY MONITORING -- do not chart) 1 each PRN DAILY PRN MC SEE COMMENTS ; Start 04/26/17 at 08:45 Active Scripts Active Levetiracetam 500 Mg Tablet 500 Mg PO BID Lidoderm (Lidocaine) 700 Mg Adh..patch 1 Patch TD DAILY Metoprolol Tartrate 50 Mg Tablet 50 Mg PO BID Synthroid (Levothyroxine Sodium) 175 Mcg Tablet 175 Mcg PO DAILY07 Isosorbide Mononitrate Er (Isosorbide Mononitrate) 30 Mg Tab.er.24h 30 Mg PO DAILY Reported Sodium Bicarbonate 650 Mg Tablet 2 Tab PO BID on dialysis days sunday, and sunday Meclizine Hcl 12.5 Mg Tablet 1 Tab PO TID Calcium Carbonate 500 Mg Tablet 500 Mg PO TIDWMEALS Ambien (Zolpidem Tartrate) 5 Mg Tablet 5 Mg PO HS PRN Alprazolam 0.25 Mg Tablet 1 Tab PO PRN Ventolin Hfa Inhaler (Albuterol Sulfate) 18 Gm Hfa.aer.ad 1 Puff INH Q6HRS PRN Ropinirole Hcl 0.25 Mg Tablet 0.25 Mg PO Citalopram Hbr (Citalopram Hydrobromide) 20 Mg Tablet 1 Tab PO DAILY Trazodone Hcl 50 Mg Tablet 0.5-1 Tab PO QHS Risperidone 0.5 Mg Tablet 1 Tab PO QHS Famotidine 20 Mg Tablet 20 Mg PO HS Coumadin (Warfarin Sodium) 5 Mg Tablet 1 Tab PO DAILY Nephro-Jimmy Tablet (Folic Acid/Vitamin B Comp W-C) 0.8 Mg Tablet 1 Tab PO DAILY Carafate (Sucralfate) 1 Gm Tablet 1 Tab PO BID Nitrostat (Nitroglycerin) 0.4 Mg Tab.subl 0.4 Mg SL PRN Q5MIN PRN Voltaren (Diclofenac Sodium) 100 Gm Gel..gram. 1 Gm TP BID Clopidogrel (Clopidogrel Bisulfate) 75 Mg Tablet 75 Mg PO DAILY07 Renvela (Sevelamer Carbonate) 800 Mg Tablet 2,400 Tab PO TIDWMEALS Vitamin D2 (Ergocalciferol (Vitamin D2)) 50,000 Unit Capsule 50,000 Unit PO WEEKLY weekly on Sunday Atorvastatin Calcium 80 Mg Tablet 80 Mg PO HS Vitals/I & O Vital Sign - Last 24 Hours 04/25/17 04/25/17 04/25/17 04/25/17 12:30 12:47 13:01 14:01 Pulse 82 75 77 B/P (MAP) 125/66 (85) 113/46 (68) 108/63 (78) O2 Delivery Room Air Room Air Room Air O2 Flow Rate 2.0 04/25/17 04/25/17 04/25/17 04/25/17 14:39 16:11 16:38 16:41 Resp 18 18 18 Pulse Ox 97 97 96 96 O2 Delivery Room Air Nasal Cannula Room Air Room Air 04/25/17 04/25/17 04/25/17 04/25/17 17:38 17:42 18:12 19:00 Temp 97.9 97.9 Pulse 82 Resp 18 18 18 18 B/P (MAP) 127/55 (79) Pulse Ox 96 96 95 95 O2 Delivery Room Air Room Air Room Air Room Air 04/25/17 04/25/17 04/25/17 04/25/17 20:00 20:12 20:12 20:15 Pulse 84 Resp 16 16 B/P (MAP) 143/62 O2 Delivery Room Air Room Air Room Air 04/25/17 04/25/17 04/25/17 04/26/17 21:12 23:00 23:00 01:36 Temp 98.1 98.1 Pulse 90 Resp 16 16 18 16 B/P (MAP) 136/65 (88) Pulse Ox 99 O2 Delivery Room Air Room Air Room Air Room Air 04/26/17 04/26/17 04/26/17 04/26/17 01:41 02:11 02:40 03:00 Temp 97.9 97.9 Pulse 85 Resp 16 16 16 18 B/P (MAP) 123/54 (77) Pulse Ox 93 O2 Delivery Room Air Room Air 04/26/17 04/26/17 04/26/17 04/26/17 06:31 07:00 07:44 08:00 Temp 97.7 97.7 Pulse 81 Resp 16 18 B/P (MAP) 129/60 (83) Pulse Ox 96 93 O2 Delivery Room Air Room Air Room Air Room Air 04/26/17 04/26/17 04/26/17 08:29 09:15 10:31 Pulse Ox 93 93 93 O2 Delivery Room Air Room Air Room Air O2 Flow Rate 2.0 Intake and Output 04/26/17 04/26/17 04/27/17 15:00 23:00 07:00 Intake Total 120 ml Balance 120 ml VIC TIWARI III DO Apr 26, 2017 12:25
--- NOTE | 2017-04-26 13:15 | PDOC ---
Provider Note Provider Note Came by patient's room, but he is currently at dialysis. Spoke with patient's . She states pt is doing well and his spirits are up. D/w RN who states pain is controlled. RN changed dressing and reports incision looks good. Continue pain control and DVT ppx. Will check on him tomorrow morning. EVERARDO RUIZ Apr 26, 2017 13:15
[2017-04-26] MEDS: MORPHINE SULFATE 4 MG/ML DISP.SYRIN. IV PRN (14:54)
[2017-04-26 15:00] VITALS: BP 148/81
[2017-04-26] MEDS: VANCOMYCIN PER PHARMACY MC PRN ×2 (15:03→15:06)
--- NOTE | 2017-04-26 15:48 | PATHOLOGY ---
PATHOLOGY REPORT * * * * * * * * FINAL DIAGNOSIS: Left, "left lower leg," below knee amputation: - Ulceration with necrotic acute inflammatory exudate extending deeply into the underlying tissue. - Fibrosis and scarring. - Calcific atherosclerotic narrowing of posterior and anterior tibial artery. - The resection margins appear viable. (SHA:; 04/26/2017) REPORT ELECTRONICALLY SIGNED BY: Eddie Rojo M.D. DATE/TIME: 04/26/2017 15:46 * * * * * * * * GROSS PATHOLOGY: The specimen is received fresh, labeled "Aquiles Wilkes, left lower leg" and consists of a below the knee amputation specimen with previous transmetatarsal excision. The amputation measures 25.7 cm from the lateral malleolus to the margin resection and 17.5 cm from the calcaneus to the previous transmetatarsal incision site. There is a 5.0 cm portion of exposed fibula and 5.0 cm portion of exposed tibia. The soft tissue at the margin resection appears grossly viable. A inner, hypopigmented, well-healed scar is noted along the lateral malleolus measuring 7.1 cm. The skin surfaces are brown, wrinkled and desquamated. At the previous transmetatarsal amputation site the skin has a thickened, ulcerated, necrotic appearance. The incision is sutured but poorly healed. Sectioning reveals the two major vessels. Each shows focal concentric mild calcification. No distinct obstruction or additional abnormalities noted. Help Desk Consultant sections are submitted as follows: A1 - soft tissue from margin resection A2 - sections from transmetatarsal resection margin A3 - posterior tibial artery A4 - anterior tibial artery ([facility]; 04/25/2017) INITIAL CPT CODE(S): A; 75316 Professional services performed by [facility] at [address] [address] Technical services performed by [facility] at [address] [place] [address], [facility] [address] [address]. SPECIMEN(S) RECEIVED: A.Left lower leg CLINICAL HISTORY: Left foot infection PATIENT: AQUILES WILKES /AGE: 12 1965 (Age: 51) PATIENT #: [id number] ALT CASE #: SPECIMEN COLLECTION DATE: 04/25/2017 SPECIMEN RECEIVED DATE: 04/25/2017 [facility] - [id number] [address] - PHONE: [phone] * * * END OF REPORT * * *
[2017-04-26] MEDS ORDERED: BISACODYL 10 MG SUPP.RECT. PR PRN (16:00)
[2017-04-26 19:39] VITALS: BP 120/68
[2017-04-26] MEDS: FAMOTIDINE 20 MG TABLET. PO SCH (19:50)
[2017-04-26] MEDS: traZODone 50 MG TABLET. PO SCH (19:50)
[2017-04-26] MEDS: MEROPENEM 500 MG in IV NORMAL SALINE 50ML 50 ML IV SCH (19:50)
[2017-04-26] MEDS: oxyCODONE IR 5 MG TABLET PO PRN (19:59)
[2017-04-26] MEDS: ZOLPIDEM 5 MG TABLET. PO PRN (22:35)
[2017-04-26 23:15] VITALS: BP 109/58
[2017-04-27 03:45] VITALS: BP 103/57
[2017-04-27] MEDS: oxyCODONE/APAP 10/325 1 TAB TABLET PO PRN ×3 (05:05→21:32)
[2017-04-27 06:02] LABS: CALCIUM 8.6 mg/dL (8.5-10.1); CREATININE 4.7 mg/dL (0.7-1.3)
[2017-04-27 06:04] LABS: POTASSIUM 5.3 mmol/L (3.5-5.1)
[2017-04-27] MEDS: LEVOTHYROXINE 175 MCG TABLET PO SCH (06:37)
[2017-04-27 06:58] LABS: BASO % 1 % (0-3); EOS % 4 % (0-3); HEMATOCRIT 24.7 % (39.0-53.0); LYMPH # 1.2 x10^3/uL (1.0-4.8); LYMPH % 27 % (24-48); MEAN CORPUSCULAR HEMOGLOBIN 30 pg (25-35); MEAN CORPUSCULAR HGB CONC 32 g/dL (31-37); MEAN CORPUSCULAR VOLUME 94 fL (79-100); MONO % 16 % (0-9); NEUT % 52 % (31-73); PLATELET COUNT 153 x10^3/uL (140-400); RED BLOOD COUNT 2.64 x10^6/uL (4.30-5.70); RED CELL DISTRIBUTION WIDTH 15.7 % (11.5-14.5); WHITE BLOOD COUNT 4.2 x10^3/uL (4.0-11.0)
[2017-04-27 07:00] VITALS: BP 100/53
[2017-04-27] MEDS: INSULIN ASPART 300 UNITS/3 ML INSULN.PEN SQ SCH ×3 (08:00→16:43)
[2017-04-27] MEDS: SEVELAMER CARBONATE 800 MG TABLET. PO SCH ×3 (08:57→16:55)
[2017-04-27] MEDS: CITALOPRAM 20 MG TABLET. PO SCH (08:58)
[2017-04-27] MEDS: levETIRAcetam 500 MG TABLET PO SCH ×2 (08:58→21:33)
[2017-04-27] MEDS: SUCRALFATE 1 GM TABLET. PO SCH ×2 (08:58→21:33)
[2017-04-27] MEDS: DICLOFENAC SODIUM 1% TOPICAL GEL 100GM TUBE. TP SCH ×2 (08:58→09:00)
[2017-04-27] MEDS: METOPROLOL TART IMMED RELEASE 50 MG TABLET. PO SCH ×2 (08:58→21:33)
[2017-04-27] MEDS: FOLIC/VIT B COMP W-C (RENAL) TABLET. PO SCH (08:58)
[2017-04-27] MEDS: HYDROcodone/APAP 7.5/325MG 1 TAB TABLET PO PRN ×2 (08:58→16:55)
[2017-04-27] MEDS: SENNOSIDES/DOCUSATE 8.6/50MG TABLET. PO SCH (08:59)
[2017-04-27] MEDS: rOPINIRole 0.25 MG TABLET. PO SCH (08:59)
[2017-04-27] MEDS: CALCIUM CARBONATE 500 MG TABLET PO SCH ×3 (08:59→17:39)
[2017-04-27] MEDS: ISOSORBIDE MONONITRATE ER 30 MG TAB.ER.24H PO SCH (08:59)
[2017-04-27] MEDS: SODIUM BICARBONATE 650 MG TABLET. PO SCH ×2 (08:59→21:33)
[2017-04-27] MEDS: MECLIZINE HCL 12.5 MG TABLET. PO SCH ×3 (08:59→21:33)
[2017-04-27] MEDS: LIDOCAINE (700MG/PATCH) PATCH. TD SCH (09:00)
[2017-04-27] MEDS: oxyCODONE IR 5 MG TABLET PO PRN ×2 (09:00→16:56)
[2017-04-27] MEDS: MORPHINE SULFATE 2 MG/ML DISP.SYRIN. IV PRN ×5 (09:16→23:00)
--- NOTE | 2017-04-27 09:55 | PDOC ---
PROGRESS NOTES Subjective Subjective No complaints Objective Vital Signs Vital Signs Date Time Temp Pulse Resp B/P (MAP) Pulse Ox O2 Delivery O2 Flow Rate FiO2 04/27/17 08:59 76 100/53 04/27/17 07:00 99.0 18 98 Room Air 99.0 04/26/17 18:36 2.0 Physical Exam slight bloody drainage on dressing of residual limb Labs Laboratory Tests Test 04/25/17 10:18 04/25/17 12:14 04/25/17 16:40 04/25/17 17:33 Glucose (Fingerstick) 106 mg/dL (70-99) 230 mg/dL (70-99) 352 mg/dL (70-99) 373 mg/dL (70-99) Test 04/25/17 20:57 04/26/17 07:15 04/26/17 07:34 04/26/17 14:26 Glucose (Fingerstick) 347 mg/dL (70-99) 201 mg/dL (70-99) 170 mg/dL (70-99) White Blood Count 8.6 x10^3/uL (4.0-11.0) Red Blood Count 2.64 x10^6/uL (4.30-5.70) Hemoglobin 8.0 g/dL (13.0-17.5) Hematocrit 24.4 % (39.0-53.0) Mean Corpuscular Volume 93 fL (79-100) Mean Corpuscular Hemoglobin 30 pg (25-35) Mean Corpuscular Hemoglobin Concent 33 g/dL (31-37) Red Cell Distribution Width 15.5 % (11.5-14.5) Platelet Count 144 x10^3/uL (140-400) Neutrophils (%) (Auto) 74 % (31-73) Lymphocytes (%) (Auto) 12 % (24-48) Monocytes (%) (Auto) 13 % (0-9) Eosinophils (%) (Auto) 0 % (0-3) Basophils (%) (Auto) 1 % (0-3) Neutrophils # (Auto) 6.4 x10^3uL (1.8-7.7) Lymphocytes # (Auto) 1.0 x10^3/uL (1.0-4.8) Monocytes # (Auto) 1.1 x10^3/uL (0.0-1.1) Eosinophils # (Auto) 0.0 x10^3/uL (0.0-0.7) Basophils # (Auto) 0.1 x10^3/uL (0.0-0.2) Sodium Level 134 mmol/L (136-145) Potassium Level 4.5 mmol/L (3.5-5.1) Chloride Level 96 mmol/L (98-107) Carbon Dioxide Level 32 mmol/L (21-32) Anion Gap 6 (6-14) Blood Urea Nitrogen 45 mg/dL (8-26) Creatinine 6.2 mg/dL (0.7-1.3) Estimated GFR (Cockcroft-Gault) 11.6 Glucose Level 206 mg/dL (70-99) Calcium Level 8.2 mg/dL (8.5-10.1) Random Vancomycin Level 26.9 mcg/mL Test 04/26/17 16:17 04/26/17 20:48 04/27/17 05:40 04/27/17 07:09 Glucose (Fingerstick) 175 mg/dL (70-99) 156 mg/dL (70-99) 121 mg/dL (70-99) White Blood Count 4.2 x10^3/uL (4.0-11.0) Red Blood Count 2.64 x10^6/uL (4.30-5.70) Hemoglobin 8.0 g/dL (13.0-17.5) Hematocrit 24.7 % (39.0-53.0) Mean Corpuscular Volume 94 fL (79-100) Mean Corpuscular Hemoglobin 30 pg (25-35) Mean Corpuscular Hemoglobin Concent 32 g/dL (31-37) Red Cell Distribution Width 15.7 % (11.5-14.5) Platelet Count 153 x10^3/uL (140-400) Neutrophils (%) (Auto) 52 % (31-73) Lymphocytes (%) (Auto) 27 % (24-48) Monocytes (%) (Auto) 16 % (0-9) Eosinophils (%) (Auto) 4 % (0-3) Basophils (%) (Auto) 1 % (0-3) Neutrophils # (Auto) 2.2 x10^3uL (1.8-7.7) Lymphocytes # (Auto) 1.2 x10^3/uL (1.0-4.8) Monocytes # (Auto) 0.7 x10^3/uL (0.0-1.1) Eosinophils # (Auto) 0.2 x10^3/uL (0.0-0.7) Basophils # (Auto) 0.0 x10^3/uL (0.0-0.2) Sodium Level 137 mmol/L (136-145) Potassium Level 5.3 mmol/L (3.5-5.1) Chloride Level 102 mmol/L (98-107) Carbon Dioxide Level 33 mmol/L (21-32) Anion Gap 2 (6-14) Blood Urea Nitrogen 25 mg/dL (8-26) Creatinine 4.7 mg/dL (0.7-1.3) Estimated GFR (Cockcroft-Gault) 16.0 Glucose Level 121 mg/dL (70-99) Calcium Level 8.6 mg/dL (8.5-10.1) Laboratory Tests Test 04/26/17 14:26 04/26/17 16:17 04/26/17 20:48 04/27/17 05:40 Glucose (Fingerstick) 170 mg/dL (70-99) 175 mg/dL (70-99) 156 mg/dL (70-99) White Blood Count 4.2 x10^3/uL (4.0-11.0) Red Blood Count 2.64 x10^6/uL (4.30-5.70) Hemoglobin 8.0 g/dL (13.0-17.5) Hematocrit 24.7 % (39.0-53.0) Mean Corpuscular Volume 94 fL (79-100) Mean Corpuscular Hemoglobin 30 pg (25-35) Mean Corpuscular Hemoglobin Concent 32 g/dL (31-37) Red Cell Distribution Width 15.7 % (11.5-14.5) Platelet Count 153 x10^3/uL (140-400) Neutrophils (%) (Auto) 52 % (31-73) Lymphocytes (%) (Auto) 27 % (24-48) Monocytes (%) (Auto) 16 % (0-9) Eosinophils (%) (Auto) 4 % (0-3) Basophils (%) (Auto) 1 % (0-3) Neutrophils # (Auto) 2.2 x10^3uL (1.8-7.7) Lymphocytes # (Auto) 1.2 x10^3/uL (1.0-4.8) Monocytes # (Auto) 0.7 x10^3/uL (0.0-1.1) Eosinophils # (Auto) 0.2 x10^3/uL (0.0-0.7) Basophils # (Auto) 0.0 x10^3/uL (0.0-0.2) Sodium Level 137 mmol/L (136-145) Potassium Level 5.3 mmol/L (3.5-5.1) Chloride Level 102 mmol/L (98-107) Carbon Dioxide Level 33 mmol/L (21-32) Anion Gap 2 (6-14) Blood Urea Nitrogen 25 mg/dL (8-26) Creatinine 4.7 mg/dL (0.7-1.3) Estimated GFR (Cockcroft-Gault) 16.0 Glucose Level 121 mg/dL (70-99) Calcium Level 8.6 mg/dL (8.5-10.1) Test 04/27/17 07:09 Glucose (Fingerstick) 121 mg/dL (70-99) Assessment Assessment POD#2 BKA L Problems: Plan Plan of Care continue PT. No WB on residual limb, but work on knee ROM and quad strength. MARSHA TENORIO MD Apr 27, 2017 09:55
[2017-04-27] MEDS ORDERED: diazePAM 5 MG TABLET PO PRN (10:00)
--- NOTE | 2017-04-27 10:18 | PDOC ---
Renal-Progress Notes Subjective Notes Notes PAIN BUT BETTER History of Present Illness Hx of present illness STABLE Vitals Vitals Vital Signs Date Time Temp Pulse Resp B/P (MAP) Pulse Ox O2 Delivery O2 Flow Rate FiO2 04/27/17 08:59 76 100/53 04/27/17 07:00 99.0 18 98 Room Air 99.0 04/26/17 18:36 2.0 Weight Weight [ ] Labs Labs Laboratory Tests Test 04/26/17 14:26 04/26/17 16:17 04/26/17 20:48 04/27/17 05:40 Glucose (Fingerstick) 170 mg/dL (70-99) 175 mg/dL (70-99) 156 mg/dL (70-99) White Blood Count 4.2 x10^3/uL (4.0-11.0) Red Blood Count 2.64 x10^6/uL (4.30-5.70) Hemoglobin 8.0 g/dL (13.0-17.5) Hematocrit 24.7 % (39.0-53.0) Mean Corpuscular Volume 94 fL (79-100) Mean Corpuscular Hemoglobin 30 pg (25-35) Mean Corpuscular Hemoglobin Concent 32 g/dL (31-37) Red Cell Distribution Width 15.7 % (11.5-14.5) Platelet Count 153 x10^3/uL (140-400) Neutrophils (%) (Auto) 52 % (31-73) Lymphocytes (%) (Auto) 27 % (24-48) Monocytes (%) (Auto) 16 % (0-9) Eosinophils (%) (Auto) 4 % (0-3) Basophils (%) (Auto) 1 % (0-3) Neutrophils # (Auto) 2.2 x10^3uL (1.8-7.7) Lymphocytes # (Auto) 1.2 x10^3/uL (1.0-4.8) Monocytes # (Auto) 0.7 x10^3/uL (0.0-1.1) Eosinophils # (Auto) 0.2 x10^3/uL (0.0-0.7) Basophils # (Auto) 0.0 x10^3/uL (0.0-0.2) Sodium Level 137 mmol/L (136-145) Potassium Level 5.3 mmol/L (3.5-5.1) Chloride Level 102 mmol/L (98-107) Carbon Dioxide Level 33 mmol/L (21-32) Anion Gap 2 (6-14) Blood Urea Nitrogen 25 mg/dL (8-26) Creatinine 4.7 mg/dL (0.7-1.3) Estimated GFR (Cockcroft-Gault) 16.0 Glucose Level 121 mg/dL (70-99) Calcium Level 8.6 mg/dL (8.5-10.1) Test 04/27/17 07:09 Glucose (Fingerstick) 121 mg/dL (70-99) Review of Systems Constitutional: yes: weakness, alert, oriented Ears/Nose/Throat: Yes: no symptom reported Eyes: Yes: no symptom reported Gastrointestional: Yes: constipation Genitourinary: Yes: no symptom reported Musculoskeletal: Yes: leg pain Skin: Yes color change Psychiatric/Neurological: Yes: no symptom reported Physical Exam General Appearance: no apparent distress Skin: warm Respiratory: decreased breath sounds Heart: S1S2 Abdomen: soft, bowel sounds present Genitourinary: bladder flat Extremities: pulses present, atrophy Neurology: alert Assessment Assessment IMP ANEMIA DM II HTN ESRD LLE WOUND S/P BKA PLAN CONT ARANESP HD TOMORROW GRACE VILLEDA MD Apr 27, 2017 10:18
[2017-04-27 11:00] VITALS: BP 103/57
--- NOTE | 2017-04-27 11:43 | PDOC ---
PROGRESS NOTES Chief Complaint Chief Complaint Peripheral vascular disease L LE infection ESRD Hyperlipidemia HTN DM2 Depression Anemia History of Present Illness History of Present Illness Pt awake and laying in bed. Pt in pleasant mood Vitals Vitals Vital Signs Date Time Temp Pulse Resp B/P (MAP) Pulse Ox O2 Delivery O2 Flow Rate FiO2 04/27/17 11:00 97.9 78 18 103/57 (72) 98 Room Air 97.9 04/26/17 18:36 2.0 Physical Exam General: Alert, Oriented X3, Cooperative, No acute distress Heart: Regular rate, Normal S1, Normal S2 Lungs: Clear, Other (no acute respiratory distress noted) Abdomen: Normal bowel sounds, Soft, No tenderness Extremities: No clubbing, No cyanosis, Other (LLE dressing CDI) Skin: No rashes, No breakdown, Other Labs LABS Laboratory Tests Test 04/26/17 14:26 04/26/17 16:17 04/26/17 20:48 04/27/17 05:40 Glucose (Fingerstick) 170 mg/dL (70-99) 175 mg/dL (70-99) 156 mg/dL (70-99) White Blood Count 4.2 x10^3/uL (4.0-11.0) Red Blood Count 2.64 x10^6/uL (4.30-5.70) Hemoglobin 8.0 g/dL (13.0-17.5) Hematocrit 24.7 % (39.0-53.0) Mean Corpuscular Volume 94 fL (79-100) Mean Corpuscular Hemoglobin 30 pg (25-35) Mean Corpuscular Hemoglobin Concent 32 g/dL (31-37) Red Cell Distribution Width 15.7 % (11.5-14.5) Platelet Count 153 x10^3/uL (140-400) Neutrophils (%) (Auto) 52 % (31-73) Lymphocytes (%) (Auto) 27 % (24-48) Monocytes (%) (Auto) 16 % (0-9) Eosinophils (%) (Auto) 4 % (0-3) Basophils (%) (Auto) 1 % (0-3) Neutrophils # (Auto) 2.2 x10^3uL (1.8-7.7) Lymphocytes # (Auto) 1.2 x10^3/uL (1.0-4.8) Monocytes # (Auto) 0.7 x10^3/uL (0.0-1.1) Eosinophils # (Auto) 0.2 x10^3/uL (0.0-0.7) Basophils # (Auto) 0.0 x10^3/uL (0.0-0.2) Sodium Level 137 mmol/L (136-145) Potassium Level 5.3 mmol/L (3.5-5.1) Chloride Level 102 mmol/L (98-107) Carbon Dioxide Level 33 mmol/L (21-32) Anion Gap 2 (6-14) Blood Urea Nitrogen 25 mg/dL (8-26) Creatinine 4.7 mg/dL (0.7-1.3) Estimated GFR (Cockcroft-Gault) 16.0 Glucose Level 121 mg/dL (70-99) Calcium Level 8.6 mg/dL (8.5-10.1) Test 04/27/17 07:09 04/27/17 10:32 Glucose (Fingerstick) 121 mg/dL (70-99) 103 mg/dL (70-99) Review of Systems Review of Systems c/o fatigue c/o hunger Assessment and Plan Assessmemt and Plan Post-op day 3. Continue wound care & pain meds PRN. Peripheral vascular disease: continue home meds. Monitor ESRD: continue dialysis Hyperlipidemia: continue to monitor levels. HTN: monitor DM2: monitor. Continue meds Depression: continue celexa Anemia Plan Continue wound care & pain meds prn Continue dialysis PTOT Possible d/c to SNU tomorrow Problems: Comment Review of Relevant I have reviewed the following items lila (where applicable) has been applied. Labs Laboratory Tests Test 04/25/17 12:14 04/25/17 16:40 04/25/17 17:33 04/25/17 20:57 Glucose (Fingerstick) 230 mg/dL (70-99) 352 mg/dL (70-99) 373 mg/dL (70-99) 347 mg/dL (70-99) Test 04/26/17 07:15 04/26/17 07:34 04/26/17 14:26 04/26/17 16:17 White Blood Count 8.6 x10^3/uL (4.0-11.0) Red Blood Count 2.64 x10^6/uL (4.30-5.70) Hemoglobin 8.0 g/dL (13.0-17.5) Hematocrit 24.4 % (39.0-53.0) Mean Corpuscular Volume 93 fL (79-100) Mean Corpuscular Hemoglobin 30 pg (25-35) Mean Corpuscular Hemoglobin Concent 33 g/dL (31-37) Red Cell Distribution Width 15.5 % (11.5-14.5) Platelet Count 144 x10^3/uL (140-400) Neutrophils (%) (Auto) 74 % (31-73) Lymphocytes (%) (Auto) 12 % (24-48) Monocytes (%) (Auto) 13 % (0-9) Eosinophils (%) (Auto) 0 % (0-3) Basophils (%) (Auto) 1 % (0-3) Neutrophils # (Auto) 6.4 x10^3uL (1.8-7.7) Lymphocytes # (Auto) 1.0 x10^3/uL (1.0-4.8) Monocytes # (Auto) 1.1 x10^3/uL (0.0-1.1) Eosinophils # (Auto) 0.0 x10^3/uL (0.0-0.7) Basophils # (Auto) 0.1 x10^3/uL (0.0-0.2) Sodium Level 134 mmol/L (136-145) Potassium Level 4.5 mmol/L (3.5-5.1) Chloride Level 96 mmol/L (98-107) Carbon Dioxide Level 32 mmol/L (21-32) Anion Gap 6 (6-14) Blood Urea Nitrogen 45 mg/dL (8-26) Creatinine 6.2 mg/dL (0.7-1.3) Estimated GFR (Cockcroft-Gault) 11.6 Glucose Level 206 mg/dL (70-99) Calcium Level 8.2 mg/dL (8.5-10.1) Random Vancomycin Level 26.9 mcg/mL Glucose (Fingerstick) 201 mg/dL (70-99) 170 mg/dL (70-99) 175 mg/dL (70-99) Test 04/26/17 20:48 04/27/17 05:40 04/27/17 07:09 04/27/17 10:32 Glucose (Fingerstick) 156 mg/dL (70-99) 121 mg/dL (70-99) 103 mg/dL (70-99) White Blood Count 4.2 x10^3/uL (4.0-11.0) Red Blood Count 2.64 x10^6/uL (4.30-5.70) Hemoglobin 8.0 g/dL (13.0-17.5) Hematocrit 24.7 % (39.0-53.0) Mean Corpuscular Volume 94 fL (79-100) Mean Corpuscular Hemoglobin 30 pg (25-35) Mean Corpuscular Hemoglobin Concent 32 g/dL (31-37) Red Cell Distribution Width 15.7 % (11.5-14.5) Platelet Count 153 x10^3/uL (140-400) Neutrophils (%) (Auto) 52 % (31-73) Lymphocytes (%) (Auto) 27 % (24-48) Monocytes (%) (Auto) 16 % (0-9) Eosinophils (%) (Auto) 4 % (0-3) Basophils (%) (Auto) 1 % (0-3) Neutrophils # (Auto) 2.2 x10^3uL (1.8-7.7) Lymphocytes # (Auto) 1.2 x10^3/uL (1.0-4.8) Monocytes # (Auto) 0.7 x10^3/uL (0.0-1.1) Eosinophils # (Auto) 0.2 x10^3/uL (0.0-0.7) Basophils # (Auto) 0.0 x10^3/uL (0.0-0.2) Sodium Level 137 mmol/L (136-145) Potassium Level 5.3 mmol/L (3.5-5.1) Chloride Level 102 mmol/L (98-107) Carbon Dioxide Level 33 mmol/L (21-32) Anion Gap 2 (6-14) Blood Urea Nitrogen 25 mg/dL (8-26) Creatinine 4.7 mg/dL (0.7-1.3) Estimated GFR (Cockcroft-Gault) 16.0 Glucose Level 121 mg/dL (70-99) Calcium Level 8.6 mg/dL (8.5-10.1) Laboratory Tests Test 04/26/17 14:26 04/26/17 16:17 04/26/17 20:48 04/27/17 05:40 Glucose (Fingerstick) 170 mg/dL (70-99) 175 mg/dL (70-99) 156 mg/dL (70-99) White Blood Count 4.2 x10^3/uL (4.0-11.0) Red Blood Count 2.64 x10^6/uL (4.30-5.70) Hemoglobin 8.0 g/dL (13.0-17.5) Hematocrit 24.7 % (39.0-53.0) Mean Corpuscular Volume 94 fL (79-100) Mean Corpuscular Hemoglobin 30 pg (25-35) Mean Corpuscular Hemoglobin Concent 32 g/dL (31-37) Red Cell Distribution Width 15.7 % (11.5-14.5) Platelet Count 153 x10^3/uL (140-400) Neutrophils (%) (Auto) 52 % (31-73) Lymphocytes (%) (Auto) 27 % (24-48) Monocytes (%) (Auto) 16 % (0-9) Eosinophils (%) (Auto) 4 % (0-3) Basophils (%) (Auto) 1 % (0-3) Neutrophils # (Auto) 2.2 x10^3uL (1.8-7.7) Lymphocytes # (Auto) 1.2 x10^3/uL (1.0-4.8) Monocytes # (Auto) 0.7 x10^3/uL (0.0-1.1) Eosinophils # (Auto) 0.2 x10^3/uL (0.0-0.7) Basophils # (Auto) 0.0 x10^3/uL (0.0-0.2) Sodium Level 137 mmol/L (136-145) Potassium Level 5.3 mmol/L (3.5-5.1) Chloride Level 102 mmol/L (98-107) Carbon Dioxide Level 33 mmol/L (21-32) Anion Gap 2 (6-14) Blood Urea Nitrogen 25 mg/dL (8-26) Creatinine 4.7 mg/dL (0.7-1.3) Estimated GFR (Cockcroft-Gault) 16.0 Glucose Level 121 mg/dL (70-99) Calcium Level 8.6 mg/dL (8.5-10.1) Test 04/27/17 07:09 04/27/17 10:32 Glucose (Fingerstick) 121 mg/dL (70-99) 103 mg/dL (70-99) Medications Current Medications Piperacillin Sod/ Tazobactam Sod (Zosyn Per Pharmacy) 1 each PRN DAILY PRN MC SEE COMMENTS; Start 04/23/17 at 18:30; Status UNV Vancomycin HCl (Vanco Per Pharmacy) 1 each PRN DAILY PRN MC SEE COMMENTS Last administered on 04/26/17 15:06; Start 04/23/17 at 18:30 Vancomycin HCl 2 gm/Sodium Chloride 500 ml @ 250 mls/hr 1X ONCE IV Last administered on 04/23/17 21:05; Start 04/23/17 at 19:00; Stop 04/23/17 at 20:59 ; Status DC Meropenem 500 mg/ Sodium Chloride 50 ml @ 100 mls/hr Q24H IV Last administered on 04/26/17 19:50; Start 04/23/17 at 20:00 Vancomycin HCl 1 each 1X ONCE MC Last administered on 04/25/17 05:00; Start 04/25/17 at 05:00; Stop 04/25/17 at 05:01; Status DC Insulin Aspart (NovoLOG) 0-7 UNITS TIDWMEALS SQ Last administered on 04/26/17 18:43; Start 04/23/17 at 20:00 Dextrose (Dextrose 50%-Water Syringe) 12.5 gm PRN Q15MIN PRN IV SEE COMMENTS; Start 04/23/17 at 20:00 Alprazolam (Xanax) 0.25 mg PRN Q6HRS PRN PO ANXIETY / AGITATION; Start at 20:00 Calcium Carbonate/ Glycine (Oscal) 500 mg TIDWMEALS PO Last administered on 08:59; Start 04/24/17 at 08:00 Citalopram Hydrobromide (CeleXA) 20 mg DAILY PO Last administered on 04/27/17 08:58; Start 04/24/17 at 09:00 Clopidogrel Bisulfate (Plavix) 75 mg DAILY07 PO ; Start 04/24/17 at 07:00; Stop 04/24/17 at 07:00; Status DC Diclofenac Sodium (Voltaren) 1 ayaz BID TP Last administered on 04/25/17 11:53 ; Start 04/23/17 at 21:00; Stop 04/27/17 at 09:23; Status DC Ergocalciferol (Vitamin D2) 50,000 unit Tu PO ; Start 05/01/17 at 09:00 Famotidine (Pepcid) 20 mg HS PO Last administered on 04/26/17 19:50; Start 06/29 at 21:00 Vitamin B Complex/ Vitamin C (Fernanda-Jimmy) 1 tab DAILY PO Last administered on 08:58; Start 04/24/17 at 09:00 Isosorbide Mononitrate (Imdur) 30 mg DAILY PO Last administered on 04/25/17 11 :50; Start 04/24/17 at 09:00 Levetiracetam (Keppra) 500 mg BID PO Last administered on 04/27/17 08:58; Start 04/23/17 at 21:00 Levothyroxine Sodium (Synthroid) 175 mcg DAILY07 PO Last administered on 06:37; Start 04/24/17 at 07:00 Lidocaine (Lidoderm) 1 patch DAILY TD Last administered on 04/27/17 09:00; Start 04/24/17 at 09:00 Meclizine HCl (Antivert) 12.5 mg TID PO Last administered on 04/27/17 08:59; Start 04/23/17 at 21:00 Metoprolol Tartrate (Lopressor) 50 mg BID PO Last administered on 04/26/17 19: 51; Start 04/23/17 at 21:00 Nitroglycerin (Nitrostat) 0.4 mg PRN Q5MIN PRN SL CHEST PAIN; Start 04/23/17 at 20:00 Ropinirole HCl (Requip) 0.25 mg DAILY PO Last administered on 04/27/17 08:59; Start 04/24/17 at 09:00 Sevelamer Carbonate (Renvela) 2,400 mg TIDWMEALS PO Last administered on 08:57; Start 04/24/17 at 08:00 Sodium Bicarbonate (Sodium Bicarbonate) 1,300 mg BID PO Last administered on 08:59; Start 04/23/17 at 21:00 Sucralfate (Carafate) 1 gm BID PO Last administered on 04/27/17 08:58; Start 04/23/17 at 21:00 Trazodone HCl (Desyrel) 50 mg QHS PO Last administered on 04/26/17 19:50; Start 04/23/17 at 21:00 Zolpidem Tartrate (Ambien) 5 mg PRN QHS PRN PO SLEEP Last administered on 22:35; Start 04/23/17 at 20:00 Dexamethasone Sodium Phosphate (Decadron) 20 mg STK-MED ONCE .ROUTE ; Start 07/29 at 09:11; Stop 04/24/17 at 09:12; Status DC Ondansetron HCl (Zofran) 4 mg STK-MED ONCE .ROUTE ; Start 04/24/17 at 09:11; Stop 04/24/17 at 09:12; Status DC Propofol 20 ml @ As Directed STK-MED ONCE IV ; Start 04/24/17 at 09:11; Stop 07/29 at 09:12; Status DC Lidocaine HCl (Lidocaine Pf 2% Vial) 5 ml STK-MED ONCE .ROUTE ; Start 04/24/17 at 09:11; Stop 04/24/17 at 09:12; Status DC Fentanyl Citrate (Fentanyl 2ml Vial) 100 mcg STK-MED ONCE .ROUTE ; Start at 09:11; Stop 04/24/17 at 09:12; Status DC Lidocaine HCl (Xylocaine-Mpf 1% Vial) 2 ml STK-MED ONCE .ROUTE ; Start 04/24/17 at 10:37; Stop 04/24/17 at 10:38; Status DC Darbepoetin Jace (Aranesp) 60 mcg WEEKLYHS SQ Last administered on 04/24/17 20 :43; Start 04/24/17 at 21:00 Sodium Chloride 1,000 ml @ 0 mls/hr Q0M IV Last administered on 04/25/17 08: 18; Start 04/24/17 at 11:15 Bupivacaine HCl/ Epinephrine Bitart (Sensorcaine-Epi 0.25%-1:717130 Mpf) 30 ml STK-MED ONCE .ROUTE ; Start 04/24/17 at 11:03; Stop 04/24/17 at 11:04; Status DC Sodium Chloride 1,000 ml @ 1,000 mls/hr Q1H PRN IV hypotension; Start 04/24/17 at 15:04; Stop 04/24/17 at 21:03; Status DC Info (PHARMACY MONITORING -- do not chart) 1 each PRN DAILY PRN MC SEE COMMENTS ; Start 04/24/17 at 15:15 Vancomycin HCl 2 gm/Sodium Chloride 500 ml @ 250 mls/hr 1X ONCE IV Last administered on 04/25/17 07:00; Start 04/25/17 at 07:00; Stop 04/25/17 at 08:59 ; Status DC Vancomycin HCl 1 each 1X ONCE MC Last administered on 04/26/17 06:00; Start 04/26/17 at 05:00; Stop 04/26/17 at 05:01; Status DC Bupivacaine HCl/ Epinephrine Bitart (Sensorcaine-Epi 0.25%-1:222756 Mpf) 30 ml STK-MED ONCE .ROUTE ; Start 04/25/17 at 07:27; Stop 04/25/17 at 07:28; Status DC Fentanyl Citrate (Fentanyl 2ml Vial) 25 mcg PRN Q5MIN PRN IV MILD PAIN; Start 04/25/17 at 08:00; Stop 04/25/17 at 18:00; Status DC Fentanyl Citrate (Fentanyl 2ml Vial) 50 mcg PRN Q5MIN PRN IV MODERATE PAIN Last administered on 04/25/17 10:20; Start 04/25/17 at 08:00; Stop 04/25/17 at 18:00; Status DC Morphine Sulfate 1 mg PRN Q10MIN PRN IV SEVERE PAIN Last administered on 11:25; Start 04/25/17 at 08:00; Stop 04/25/17 at 18:00; Status DC Ringer's Solution 1,000 ml @ 30 mls/hr Q24H IV ; Start 04/25/17 at 07:47; Stop 04/25/17 at 19:46; Status DC Lidocaine HCl 2 ml PRN 1X PRN ID PRIOR TO IV START; Start 04/25/17 at 08:00; Stop 04/25/17 at 18:00; Status DC Hydromorphone HCl (Dilaudid) 0.5 mg PRN Q10MIN PRN IV SEV PAIN, Second choice Last administered on 04/25/17t 11:05; Start 04/25/17 at 08:00; Stop 04/25/17 at 18:00; Status DC Prochlorperazine Edisylate (Compazine) 5 mg PACU PRN PRN IV NAUSEA, MRX1 Last administered on 04/25/17t 10:24; Start 04/25/17 at 08:00; Stop 04/25/17 at 18:00 ; Status DC Lidocaine HCl (Xylocaine-Mpf 1% Vial) 2 ml STK-MED ONCE .ROUTE ; Start 04/24/17 at 10:40; Stop 04/25/17 at 08:04; Status DC Dexamethasone Sodium Phosphate (Decadron) 20 mg STK-MED ONCE .ROUTE ; Start at 08:12; Stop 04/25/17 at 08:13; Status DC Ondansetron HCl (Zofran) 4 mg STK-MED ONCE .ROUTE ; Start 04/25/17 at 08:12; Stop 04/25/17 at 08:13; Status DC Propofol 20 ml @ As Directed STK-MED ONCE IV ; Start 04/25/17 at 08:12; Stop at 08:13; Status DC Lidocaine HCl (Lidocaine Pf 2% Vial) 5 ml STK-MED ONCE .ROUTE ; Start 04/25/17 at 08:12; Stop 04/25/17 at 08:13; Status DC Fentanyl Citrate (Fentanyl 2ml Vial) 100 mcg STK-MED ONCE .ROUTE ; Start at 08:12; Stop 04/25/17 at 08:13; Status DC Succinylcholine Chloride (Anectine) 200 mg STK-MED ONCE .ROUTE ; Start 04/25/17 at 08:13; Stop 04/25/17 at 08:14; Status DC Midazolam HCl (Versed) 2 mg STK-MED ONCE .ROUTE ; Start 04/25/17 at 08:18; Stop 04/25/17 at 08:19; Status DC Desflurane (Suprane) 60 ml STK-MED ONCE IH ; Start 04/25/17 at 08:32; Stop 04/25 at 08:33; Status DC Esmolol HCl (Brevibloc) 100 mg STK-MED ONCE IV ; Start 04/25/17 at 09:06; Stop 04/25/17 at 09:07; Status DC Fentanyl Citrate (Fentanyl 2ml Vial) 100 mcg STK-MED ONCE .ROUTE ; Start at 09:16; Stop 04/25/17 at 09:17; Status DC Prochlorperazine Edisylate (Compazine) 10 mg STK-MED ONCE .ROUTE ; Start at 10:11; Stop 04/25/17 at 10:12; Status DC Fentanyl Citrate (Fentanyl 2ml Vial) 100 mcg STK-MED ONCE .ROUTE ; Start at 10:11; Stop 04/25/17 at 10:12; Status DC Oxycodone HCl (Roxicodone) 5 mg PRN Q3HRS PRN PO PAIN Last administered on 04/27 09:00; Start 04/25/17 at 10:15 Morphine Sulfate 2 mg PRN Q1HR PRN IV PAIN Last administered on 04/27/17 09:16 ; Start 04/25/17 at 10:15 Fentanyl Citrate (Fentanyl 2ml Vial) 25 mcg PRN Q1HR PRN IV PAIN Last administered on 04/25/17 16:11; Start 04/25/17 at 10:15 Senna/Docusate Sodium (Senna Plus) 1 tab DAILY PO Last administered on 08:59; Start 04/26/17 at 09:00 Polyethylene Glycol (miraLAX PACKET) 17 gm PRN DAILY PRN PO CONSTIPATION; Start 04/25/17 at 10:15 Ondansetron HCl (Zofran) 4 mg PRN Q4HRS PRN IV NAUSEA/VOMITING Last administered on 04/26/17 22:30; Start 04/25/17 at 10:15 Magnesium Hydroxide (Milk Of Magnesia) 2,400 mg 1X PRN PRN PO CONSTIPATION; Start 04/26/17 at 06:00; Stop 04/27/17 at 06:00; Status DC Bisacodyl (Dulcolax Supp) 10 mg 1X PRN PRN OR CONSTIPATION; Start 04/26/17 at 16:00; Stop 04/27/17 at 15:59 Acetaminophen/ Hydrocodone Bitart (Lortab 7.5/325) 1 tab PRN Q4HRS PRN PO PAIN Last administered on 04/25/17 16:38; Start 04/25/17 at 10:15 Morphine Sulfate 4 mg PRN Q2HR PRN IV PAIN Last administered on 04/26/17 14:54 ; Start 04/25/17 at 10:15 Acetaminophen/ Hydrocodone Bitart (Lortab 7.5/325) 2 tab PRN Q4HRS PRN PO PAIN Last administered on 04/27/17 08:58; Start 04/25/17 at 10:15 Dextrose (Dextrose 50%-Water Syringe) 12.5 gm PRN Q15MIN PRN IV SEE COMMENTS; Start 04/25/17 at 10:15; Status Cancel Hydromorphone HCl (Dilaudid) 2 mg STK-MED ONCE .ROUTE ; Start 04/25/17 at 10:28 ; Stop 04/25/17 at 10:29; Status DC Morphine Sulfate 2 mg STK-MED ONCE .ROUTE ; Start 04/25/17 at 10:54; Stop at 10:55; Status DC Oxycodone/ Acetaminophen (Percocet 10/325) 1 tab PRN Q4HRS PRN PO PAIN Last administered on 04/25/17 20:12; Start 04/25/17 at 17:00 Fentanyl Citrate (Fentanyl 2ml Vial) 50 mcg PRN Q1HR PRN IV PAIN Last administered on 04/25/17 17:42; Start 04/25/17 at 17:00 Oxycodone/ Acetaminophen (Percocet 10/325) 2 tab PRN Q4HRS PRN PO PAIN Last administered on 04/27/17 05:05; Start 04/25/17 at 17:00 Heparin Sodium (Porcine) (Heparin Sodium) 2,000 unit 1X ONCE IV Last administered on 04/26/17 09:31; Start 04/26/17 at 08:45; Stop 04/26/17 at 08:49 ; Status DC Sodium Chloride 1,000 ml @ 1,000 mls/hr Q1H PRN IV hypotension; Start 04/26/17 at 08:38; Stop 04/26/17 at 14:37; Status DC Diphenhydramine HCl (Benadryl) 25 mg 1X PRN PRN IV ITCHING; Start 04/26/17 at 08:45; Stop 04/27/17 at 08:44; Status DC Diphenhydramine HCl (Benadryl) 25 mg 1X PRN PRN IV ITCHING; Start 04/26/17 at 08:45; Stop 04/27/17 at 08:44; Status DC Sodium Chloride 1,000 ml @ 400 mls/hr Q2H30M PRN IV PATENCY; Start 04/26/17 at 08:38; Stop 04/26/17 at 20:37; Status DC Info (PHARMACY MONITORING -- do not chart) 1 each PRN DAILY PRN MC SEE COMMENTS ; Start 04/26/17 at 08:45 Diazepam (Valium) 5 mg PRN Q6HRS PRN PO MUSCLE SPASM; Start 04/27/17 at 10:00 Active Scripts Active Levetiracetam 500 Mg Tablet 500 Mg PO BID Lidoderm (Lidocaine) 700 Mg Adh..patch 1 Patch TD DAILY Metoprolol Tartrate 50 Mg Tablet 50 Mg PO BID Synthroid (Levothyroxine Sodium) 175 Mcg Tablet 175 Mcg PO DAILY07 Isosorbide Mononitrate Er (Isosorbide Mononitrate) 30 Mg Tab.er.24h 30 Mg PO DAILY Reported Sodium Bicarbonate 650 Mg Tablet 2 Tab PO BID on dialysis days sunday, and sunday Meclizine Hcl 12.5 Mg Tablet 1 Tab PO TID Calcium Carbonate 500 Mg Tablet 500 Mg PO TIDWMEALS Ambien (Zolpidem Tartrate) 5 Mg Tablet 5 Mg PO HS PRN Alprazolam 0.25 Mg Tablet 1 Tab PO PRN Ventolin Hfa Inhaler (Albuterol Sulfate) 18 Gm Hfa.aer.ad 1 Puff INH Q6HRS PRN Ropinirole Hcl 0.25 Mg Tablet 0.25 Mg PO Citalopram Hbr (Citalopram Hydrobromide) 20 Mg Tablet 1 Tab PO DAILY Trazodone Hcl 50 Mg Tablet 0.5-1 Tab PO QHS Risperidone 0.5 Mg Tablet 1 Tab PO QHS Famotidine 20 Mg Tablet 20 Mg PO HS Coumadin (Warfarin Sodium) 5 Mg Tablet 1 Tab PO DAILY Nephro-Jimmy Tablet (Folic Acid/Vitamin B Comp W-C) 0.8 Mg Tablet 1 Tab PO DAILY Carafate (Sucralfate) 1 Gm Tablet 1 Tab PO BID Nitrostat (Nitroglycerin) 0.4 Mg Tab.subl 0.4 Mg SL PRN Q5MIN PRN Voltaren (Diclofenac Sodium) 100 Gm Gel..gram. 1 Gm TP BID Clopidogrel (Clopidogrel Bisulfate) 75 Mg Tablet 75 Mg PO DAILY07 Renvela (Sevelamer Carbonate) 800 Mg Tablet 2,400 Tab PO TIDWMEALS Vitamin D2 (Ergocalciferol (Vitamin D2)) 50,000 Unit Capsule 50,000 Unit PO WEEKLY weekly on Sunday Atorvastatin Calcium 80 Mg Tablet 80 Mg PO HS Vitals/I & O Vital Sign - Last 24 Hours 04/26/17 04/26/17 04/26/17 04/26/17 14:00 14:54 15:00 15:00 Temp 97.2 97.2 Pulse 91 Resp 18 B/P (MAP) 148/81 (103) Pulse Ox 93 93 97 97 O2 Delivery Room Air Room Air Room Air O2 Flow Rate 2.0 04/26/17 04/26/17 04/26/17 04/26/17 15:03 15:30 18:36 19:39 Temp 97.5 97.5 Pulse 81 81 Resp 18 B/P (MAP) 129/60 120/68 (85) Pulse Ox 97 97 98 O2 Delivery Room Air Room Air Room Air O2 Flow Rate 2.0 04/26/17 04/26/17 04/26/17 04/26/17 19:51 19:59 20:00 21:00 Resp 16 16 B/P (MAP) 120/68 O2 Delivery Room Air Room Air Room Air 04/26/17 04/26/17 04/26/17 04/27/17 22:35 23:05 23:15 03:45 Temp 97.9 97.9 97.9 97.9 Pulse 96 42 Resp 16 16 18 18 B/P (MAP) 109/58 (75) 103/57 (72) Pulse Ox 96 91 O2 Delivery Room Air Room Air Room Air Room Air 04/27/17 04/27/17 04/27/17 04/27/17 05:05 06:05 07:00 08:58 Temp 99.0 99.0 Pulse 76 76 Resp 16 16 18 B/P (MAP) 100/53 (69) 100/53 Pulse Ox 98 O2 Delivery Room Air Room Air Room Air 04/27/17 04/27/17 08:59 11:00 Temp 97.9 97.9 Pulse 76 78 Resp 18 B/P (MAP) 100/53 103/57 (72) Pulse Ox 98 O2 Delivery Room Air VIC [email or web address] III DO Apr 27, 2017 11:43
--- NOTE | 2017-04-27 12:11 | PDOC ---
BRIEF OPERATIVE NOTE Date: Apr 25, 2017 Pre-Op Diagnosis gangrene left foot Post-Op Diagnosis same Procedure Performed left BKA Surgeon nick starr Anesthesia Type: General Blood Loss see complete op note Specimens Obtained bka Findings satisfactory blood flow for BKA Complications none OPerative Note see complete op note MARSHA TENORIO MD Apr 27, 2017 12:10
[2017-04-27 15:00] VITALS: BP 113/53
[2017-04-27 19:00] VITALS: BP 116/66
[2017-04-27] MEDS: traZODone 50 MG TABLET. PO SCH (21:33)
[2017-04-27] MEDS: FAMOTIDINE 20 MG TABLET. PO SCH (21:33)
[2017-04-27] MEDS: MEROPENEM 500 MG in IV NORMAL SALINE 50ML 50 ML IV SCH (21:35)
[2017-04-27 23:00] VITALS: BP 122/66
[2017-04-28 03:14] VITALS: BP 115/62
[2017-04-28] MEDS: LEVOTHYROXINE 175 MCG TABLET PO SCH (06:08)
[2017-04-28] MEDS: oxyCODONE/APAP 10/325 1 TAB TABLET PO PRN ×2 (06:08→11:57)
[2017-04-28] MEDS: MORPHINE SULFATE 2 MG/ML DISP.SYRIN. IV PRN (06:43)
[2017-04-28 06:57] LABS: BASO % 1 % (0-3); EOS % 4 % (0-3); HEMATOCRIT 25.5 % (39.0-53.0); HEMOGLOBIN 8.1 g/dL (13.0-17.5); LYMPH % 18 % (24-48); MEAN CORPUSCULAR HEMOGLOBIN 30 pg (25-35); MEAN CORPUSCULAR HGB CONC 32 g/dL (31-37); MEAN CORPUSCULAR VOLUME 94 fL (79-100); MONO % 16 % (0-9); NEUT % 61 % (31-73); PLATELET COUNT 174 x10^3/uL (140-400); RED BLOOD COUNT 2.71 x10^6/uL (4.30-5.70); RED CELL DISTRIBUTION WIDTH 15.4 % (11.5-14.5); WHITE BLOOD COUNT 5.5 x10^3/uL (4.0-11.0)
[2017-04-28] MEDS ORDERED: LIDOCAINE 1% PF 2 ML VIAL. ID ONE (07:00)
[2017-04-28] MEDS ORDERED: IV NORMAL SALINE 1000ML BAG 1,000 ML IV PRN ×2 (07:00)
[2017-04-28 07:16] LABS: CREATININE 6.4 mg/dL (0.7-1.3); GFR 11.2; POTASSIUM 5.2 mmol/L (3.5-5.1)
[2017-04-28] MEDS ORDERED: DIALYSIS PATIENT. MC PRN (07:45)
[2017-04-28] MEDS: SEVELAMER CARBONATE 800 MG TABLET. PO SCH ×3 (08:00→16:40)
[2017-04-28] MEDS: INSULIN ASPART 300 UNITS/3 ML INSULN.PEN SQ SCH ×3 (08:00→16:19)
[2017-04-28] MEDS: CALCIUM CARBONATE 500 MG TABLET PO SCH ×3 (08:00→16:40)
[2017-04-28] MEDS: MECLIZINE HCL 12.5 MG TABLET. PO SCH ×3 (09:00→20:04)
--- NOTE | 2017-04-28 10:29 | PDOC ---
Dialysis Progress Note Dialysis Note Dialysis Note Seen on Hemodialysis, tolerating treatment Well Vitals on Hemodialysis: 130/57 74 Afeb General Appearance: Awake: Alert Oriented x 3 Neck: No JVD or JVP Chest: CTA Antonio Heart: S1 S2 Abdomen - Soft NTND Extremities - No Edema ESRD: Dialysis as below F 180 NR 4.0 Hrs 2 K 2.5 Ca 140 Na 35 HC03 Qb 350 + Qd 500+ Heparin 0 Units Uf 2 Kgs or to dry weight as tolerated May give 25-50 gms of 25% Albumin if needed to maintain Hemodynamic stability Treatment plan reviewed and discussed with design painter Vitals Vital Signs Vital Signs Date Time Temp Pulse Resp B/P (MAP) Pulse Ox O2 Delivery O2 Flow Rate FiO2 04/28/17 06:43 16 Room Air 04/28/17 03:14 97.7 84 115/62 (79) 96 97.7 04/26/17 18:36 2.0 Labs Last Labs Laboratory Tests Test 04/26/17 14:26 04/26/17 16:17 04/26/17 20:48 04/27/17 05:40 Glucose (Fingerstick) 170 mg/dL (70-99) 175 mg/dL (70-99) 156 mg/dL (70-99) White Blood Count 4.2 x10^3/uL (4.0-11.0) Red Blood Count 2.64 x10^6/uL (4.30-5.70) Hemoglobin 8.0 g/dL (13.0-17.5) Hematocrit 24.7 % (39.0-53.0) Mean Corpuscular Volume 94 fL (79-100) Mean Corpuscular Hemoglobin 30 pg (25-35) Mean Corpuscular Hemoglobin Concent 32 g/dL (31-37) Red Cell Distribution Width 15.7 % (11.5-14.5) Platelet Count 153 x10^3/uL (140-400) Neutrophils (%) (Auto) 52 % (31-73) Lymphocytes (%) (Auto) 27 % (24-48) Monocytes (%) (Auto) 16 % (0-9) Eosinophils (%) (Auto) 4 % (0-3) Basophils (%) (Auto) 1 % (0-3) Neutrophils # (Auto) 2.2 x10^3uL (1.8-7.7) Lymphocytes # (Auto) 1.2 x10^3/uL (1.0-4.8) Monocytes # (Auto) 0.7 x10^3/uL (0.0-1.1) Eosinophils # (Auto) 0.2 x10^3/uL (0.0-0.7) Basophils # (Auto) 0.0 x10^3/uL (0.0-0.2) Sodium Level 137 mmol/L (136-145) Potassium Level 5.3 mmol/L (3.5-5.1) Chloride Level 102 mmol/L (98-107) Carbon Dioxide Level 33 mmol/L (21-32) Anion Gap 2 (6-14) Blood Urea Nitrogen 25 mg/dL (8-26) Creatinine 4.7 mg/dL (0.7-1.3) Estimated GFR (Cockcroft-Gault) 16.0 Glucose Level 121 mg/dL (70-99) Calcium Level 8.6 mg/dL (8.5-10.1) Test 04/27/17 07:09 04/27/17 10:32 04/27/17 16:17 04/27/17 21:05 Glucose (Fingerstick) 121 mg/dL (70-99) 103 mg/dL (70-99) 119 mg/dL (70-99) 112 mg/dL (70-99) Test 04/28/17 06:30 White Blood Count 5.5 x10^3/uL (4.0-11.0) Red Blood Count 2.71 x10^6/uL (4.30-5.70) Hemoglobin 8.1 g/dL (13.0-17.5) Hematocrit 25.5 % (39.0-53.0) Mean Corpuscular Volume 94 fL (79-100) Mean Corpuscular Hemoglobin 30 pg (25-35) Mean Corpuscular Hemoglobin Concent 32 g/dL (31-37) Red Cell Distribution Width 15.4 % (11.5-14.5) Platelet Count 174 x10^3/uL (140-400) Neutrophils (%) (Auto) 61 % (31-73) Lymphocytes (%) (Auto) 18 % (24-48) Monocytes (%) (Auto) 16 % (0-9) Eosinophils (%) (Auto) 4 % (0-3) Basophils (%) (Auto) 1 % (0-3) Neutrophils # (Auto) 3.4 x10^3uL (1.8-7.7) Lymphocytes # (Auto) 1.0 x10^3/uL (1.0-4.8) Monocytes # (Auto) 0.9 x10^3/uL (0.0-1.1) Eosinophils # (Auto) 0.2 x10^3/uL (0.0-0.7) Basophils # (Auto) 0.0 x10^3/uL (0.0-0.2) Sodium Level 137 mmol/L (136-145) Potassium Level 5.2 mmol/L (3.5-5.1) Chloride Level 101 mmol/L (98-107) Carbon Dioxide Level 32 mmol/L (21-32) Anion Gap 4 (6-14) Blood Urea Nitrogen 36 mg/dL (8-26) Creatinine 6.4 mg/dL (0.7-1.3) Estimated GFR (Cockcroft-Gault) 11.2 Glucose Level 95 mg/dL (70-99) Calcium Level 9.0 mg/dL (8.5-10.1) Laboratory Tests Test 04/27/17 10:32 04/27/17 16:17 04/27/17 21:05 04/28/17 06:30 Glucose (Fingerstick) 103 mg/dL (70-99) 119 mg/dL (70-99) 112 mg/dL (70-99) White Blood Count 5.5 x10^3/uL (4.0-11.0) Red Blood Count 2.71 x10^6/uL (4.30-5.70) Hemoglobin 8.1 g/dL (13.0-17.5) Hematocrit 25.5 % (39.0-53.0) Mean Corpuscular Volume 94 fL (79-100) Mean Corpuscular Hemoglobin 30 pg (25-35) Mean Corpuscular Hemoglobin Concent 32 g/dL (31-37) Red Cell Distribution Width 15.4 % (11.5-14.5) Platelet Count 174 x10^3/uL (140-400) Neutrophils (%) (Auto) 61 % (31-73) Lymphocytes (%) (Auto) 18 % (24-48) Monocytes (%) (Auto) 16 % (0-9) Eosinophils (%) (Auto) 4 % (0-3) Basophils (%) (Auto) 1 % (0-3) Neutrophils # (Auto) 3.4 x10^3uL (1.8-7.7) Lymphocytes # (Auto) 1.0 x10^3/uL (1.0-4.8) Monocytes # (Auto) 0.9 x10^3/uL (0.0-1.1) Eosinophils # (Auto) 0.2 x10^3/uL (0.0-0.7) Basophils # (Auto) 0.0 x10^3/uL (0.0-0.2) Sodium Level 137 mmol/L (136-145) Potassium Level 5.2 mmol/L (3.5-5.1) Chloride Level 101 mmol/L (98-107) Carbon Dioxide Level 32 mmol/L (21-32) Anion Gap 4 (6-14) Blood Urea Nitrogen 36 mg/dL (8-26) Creatinine 6.4 mg/dL (0.7-1.3) Estimated GFR (Cockcroft-Gault) 11.2 Glucose Level 95 mg/dL (70-99) Calcium Level 9.0 mg/dL (8.5-10.1) MYRON LIANG MD Apr 28, 2017 10:29
[2017-04-28 11:50] VITALS: BP 103/53
[2017-04-28] MEDS: FOLIC/VIT B COMP W-C (RENAL) TABLET. PO SCH (11:57)
[2017-04-28] MEDS: METOPROLOL TART IMMED RELEASE 50 MG TABLET. PO SCH ×2 (11:58→21:00)
[2017-04-28] MEDS: levETIRAcetam 500 MG TABLET PO SCH ×2 (11:58→20:03)
[2017-04-28] MEDS: SENNOSIDES/DOCUSATE 8.6/50MG TABLET. PO SCH (11:59)
[2017-04-28] MEDS: ISOSORBIDE MONONITRATE ER 30 MG TAB.ER.24H PO SCH (11:59)
[2017-04-28] MEDS: SUCRALFATE 1 GM TABLET. PO SCH ×2 (11:59→20:04)
[2017-04-28] MEDS: CITALOPRAM 20 MG TABLET. PO SCH (11:59)
[2017-04-28] MEDS: rOPINIRole 0.25 MG TABLET. PO SCH (11:59)
[2017-04-28] MEDS: LIDOCAINE (700MG/PATCH) PATCH. TD SCH (12:01)
--- NOTE | 2017-04-28 12:02 | PDOC ---
PROGRESS NOTES Chief Complaint Chief Complaint Peripheral vascular disease L LE infection ESRD Hyperlipidemia HTN DM2 Depression Anemia History of Present Illness History of Present Illness No acute overnight events. Pt was on HD. Awake, pleasant, in NAD. Appreciates the spices on his food. Vitals Vitals Vital Signs Date Time Temp Pulse Resp B/P (MAP) Pulse Ox O2 Delivery O2 Flow Rate FiO2 04/28/17 06:43 16 Room Air 04/28/17 03:14 97.7 84 115/62 (79) 96 97.7 Physical Exam General: Alert, Oriented X3, Cooperative, No acute distress Heart: Regular rate, Normal S1, Normal S2 Lungs: Clear, Other (no acute respiratory distress noted) Abdomen: Normal bowel sounds, Soft, No tenderness Extremities: No clubbing, No cyanosis, Other (LLE BKA dressing CDI) Skin: No rashes, No breakdown, Other Labs LABS Laboratory Tests Test 04/27/17 16:17 04/27/17 21:05 04/28/17 06:30 04/28/17 11:03 Glucose (Fingerstick) 119 mg/dL (70-99) 112 mg/dL (70-99) 107 mg/dL (70-99) White Blood Count 5.5 x10^3/uL (4.0-11.0) Red Blood Count 2.71 x10^6/uL (4.30-5.70) Hemoglobin 8.1 g/dL (13.0-17.5) Hematocrit 25.5 % (39.0-53.0) Mean Corpuscular Volume 94 fL (79-100) Mean Corpuscular Hemoglobin 30 pg (25-35) Mean Corpuscular Hemoglobin Concent 32 g/dL (31-37) Red Cell Distribution Width 15.4 % (11.5-14.5) Platelet Count 174 x10^3/uL (140-400) Neutrophils (%) (Auto) 61 % (31-73) Lymphocytes (%) (Auto) 18 % (24-48) Monocytes (%) (Auto) 16 % (0-9) Eosinophils (%) (Auto) 4 % (0-3) Basophils (%) (Auto) 1 % (0-3) Neutrophils # (Auto) 3.4 x10^3uL (1.8-7.7) Lymphocytes # (Auto) 1.0 x10^3/uL (1.0-4.8) Monocytes # (Auto) 0.9 x10^3/uL (0.0-1.1) Eosinophils # (Auto) 0.2 x10^3/uL (0.0-0.7) Basophils # (Auto) 0.0 x10^3/uL (0.0-0.2) Sodium Level 137 mmol/L (136-145) Potassium Level 5.2 mmol/L (3.5-5.1) Chloride Level 101 mmol/L (98-107) Carbon Dioxide Level 32 mmol/L (21-32) Anion Gap 4 (6-14) Blood Urea Nitrogen 36 mg/dL (8-26) Creatinine 6.4 mg/dL (0.7-1.3) Estimated GFR (Cockcroft-Gault) 11.2 Glucose Level 95 mg/dL (70-99) Calcium Level 9.0 mg/dL (8.5-10.1) Review of Systems Review of Systems Complains of LLE pain Complains of hunger Assessment and Plan Assessmemt and Plan Post-op day 4. Continue wound care & pain meds PRN. Peripheral vascular disease: continue home meds. Monitor ESRD: continue dialysis Hyperlipidemia: continue to monitor levels. HTN: monitor DM2: monitor. Continue meds Depression: continue celexa Anemia Plan Continue wound care & pain meds prn Continue dialysis PTOT Probable DC to [facility] on Saturday 06/30 Problems: Comment Review of Relevant I have reviewed the following items lila (where applicable) has been applied. Labs Laboratory Tests Test 04/26/17 14:26 04/26/17 16:17 04/26/17 20:48 04/27/17 05:40 Glucose (Fingerstick) 170 mg/dL (70-99) 175 mg/dL (70-99) 156 mg/dL (70-99) White Blood Count 4.2 x10^3/uL (4.0-11.0) Red Blood Count 2.64 x10^6/uL (4.30-5.70) Hemoglobin 8.0 g/dL (13.0-17.5) Hematocrit 24.7 % (39.0-53.0) Mean Corpuscular Volume 94 fL (79-100) Mean Corpuscular Hemoglobin 30 pg (25-35) Mean Corpuscular Hemoglobin Concent 32 g/dL (31-37) Red Cell Distribution Width 15.7 % (11.5-14.5) Platelet Count 153 x10^3/uL (140-400) Neutrophils (%) (Auto) 52 % (31-73) Lymphocytes (%) (Auto) 27 % (24-48) Monocytes (%) (Auto) 16 % (0-9) Eosinophils (%) (Auto) 4 % (0-3) Basophils (%) (Auto) 1 % (0-3) Neutrophils # (Auto) 2.2 x10^3uL (1.8-7.7) Lymphocytes # (Auto) 1.2 x10^3/uL (1.0-4.8) Monocytes # (Auto) 0.7 x10^3/uL (0.0-1.1) Eosinophils # (Auto) 0.2 x10^3/uL (0.0-0.7) Basophils # (Auto) 0.0 x10^3/uL (0.0-0.2) Sodium Level 137 mmol/L (136-145) Potassium Level 5.3 mmol/L (3.5-5.1) Chloride Level 102 mmol/L (98-107) Carbon Dioxide Level 33 mmol/L (21-32) Anion Gap 2 (6-14) Blood Urea Nitrogen 25 mg/dL (8-26) Creatinine 4.7 mg/dL (0.7-1.3) Estimated GFR (Cockcroft-Gault) 16.0 Glucose Level 121 mg/dL (70-99) Calcium Level 8.6 mg/dL (8.5-10.1) Test 04/27/17 07:09 04/27/17 10:32 04/27/17 16:17 04/27/17 21:05 Glucose (Fingerstick) 121 mg/dL (70-99) 103 mg/dL (70-99) 119 mg/dL (70-99) 112 mg/dL (70-99) Test 04/28/17 06:30 04/28/17 11:03 White Blood Count 5.5 x10^3/uL (4.0-11.0) Red Blood Count 2.71 x10^6/uL (4.30-5.70) Hemoglobin 8.1 g/dL (13.0-17.5) Hematocrit 25.5 % (39.0-53.0) Mean Corpuscular Volume 94 fL (79-100) Mean Corpuscular Hemoglobin 30 pg (25-35) Mean Corpuscular Hemoglobin Concent 32 g/dL (31-37) Red Cell Distribution Width 15.4 % (11.5-14.5) Platelet Count 174 x10^3/uL (140-400) Neutrophils (%) (Auto) 61 % (31-73) Lymphocytes (%) (Auto) 18 % (24-48) Monocytes (%) (Auto) 16 % (0-9) Eosinophils (%) (Auto) 4 % (0-3) Basophils (%) (Auto) 1 % (0-3) Neutrophils # (Auto) 3.4 x10^3uL (1.8-7.7) Lymphocytes # (Auto) 1.0 x10^3/uL (1.0-4.8) Monocytes # (Auto) 0.9 x10^3/uL (0.0-1.1) Eosinophils # (Auto) 0.2 x10^3/uL (0.0-0.7) Basophils # (Auto) 0.0 x10^3/uL (0.0-0.2) Sodium Level 137 mmol/L (136-145) Potassium Level 5.2 mmol/L (3.5-5.1) Chloride Level 101 mmol/L (98-107) Carbon Dioxide Level 32 mmol/L (21-32) Anion Gap 4 (6-14) Blood Urea Nitrogen 36 mg/dL (8-26) Creatinine 6.4 mg/dL (0.7-1.3) Estimated GFR (Cockcroft-Gault) 11.2 Glucose Level 95 mg/dL (70-99) Calcium Level 9.0 mg/dL (8.5-10.1) Glucose (Fingerstick) 107 mg/dL (70-99) Laboratory Tests Test 04/27/17 16:17 04/27/17 21:05 04/28/17 06:30 04/28/17 11:03 Glucose (Fingerstick) 119 mg/dL (70-99) 112 mg/dL (70-99) 107 mg/dL (70-99) White Blood Count 5.5 x10^3/uL (4.0-11.0) Red Blood Count 2.71 x10^6/uL (4.30-5.70) Hemoglobin 8.1 g/dL (13.0-17.5) Hematocrit 25.5 % (39.0-53.0) Mean Corpuscular Volume 94 fL (79-100) Mean Corpuscular Hemoglobin 30 pg (25-35) Mean Corpuscular Hemoglobin Concent 32 g/dL (31-37) Red Cell Distribution Width 15.4 % (11.5-14.5) Platelet Count 174 x10^3/uL (140-400) Neutrophils (%) (Auto) 61 % (31-73) Lymphocytes (%) (Auto) 18 % (24-48) Monocytes (%) (Auto) 16 % (0-9) Eosinophils (%) (Auto) 4 % (0-3) Basophils (%) (Auto) 1 % (0-3) Neutrophils # (Auto) 3.4 x10^3uL (1.8-7.7) Lymphocytes # (Auto) 1.0 x10^3/uL (1.0-4.8) Monocytes # (Auto) 0.9 x10^3/uL (0.0-1.1) Eosinophils # (Auto) 0.2 x10^3/uL (0.0-0.7) Basophils # (Auto) 0.0 x10^3/uL (0.0-0.2) Sodium Level 137 mmol/L (136-145) Potassium Level 5.2 mmol/L (3.5-5.1) Chloride Level 101 mmol/L (98-107) Carbon Dioxide Level 32 mmol/L (21-32) Anion Gap 4 (6-14) Blood Urea Nitrogen 36 mg/dL (8-26) Creatinine 6.4 mg/dL (0.7-1.3) Estimated GFR (Cockcroft-Gault) 11.2 Glucose Level 95 mg/dL (70-99) Calcium Level 9.0 mg/dL (8.5-10.1) Medications Current Medications Piperacillin Sod/ Tazobactam Sod (Zosyn Per Pharmacy) 1 each PRN DAILY PRN MC SEE COMMENTS; Start 04/23/17 at 18:30; Status UNV Vancomycin HCl (Vanco Per Pharmacy) 1 each PRN DAILY PRN MC SEE COMMENTS Last administered on 04/26/17 15:06; Start 04/23/17 at 18:30; Stop 04/27/17 at 13:47 ; Status DC Vancomycin HCl 2 gm/Sodium Chloride 500 ml @ 250 mls/hr 1X ONCE IV Last administered on 04/23/17 21:05; Start 04/23/17 at 19:00; Stop 04/23/17 at 20:59 ; Status DC Meropenem 500 mg/ Sodium Chloride 50 ml @ 100 mls/hr Q24H IV Last administered on 04/27/17 21:35; Start 04/23/17 at 20:00; Stop 04/27/17 at 23:00 ; Status DC Vancomycin HCl 1 each 1X ONCE MC Last administered on 04/25/17 05:00; Start 04/25/17 at 05:00; Stop 04/25/17 at 05:01; Status DC Insulin Aspart (NovoLOG) 0-7 UNITS TIDWMEALS SQ Last administered on 04/26/17 18:43; Start 04/23/17 at 20:00 Dextrose (Dextrose 50%-Water Syringe) 12.5 gm PRN Q15MIN PRN IV SEE COMMENTS; Start 04/23/17 at 20:00 Alprazolam (Xanax) 0.25 mg PRN Q6HRS PRN PO ANXIETY / AGITATION; Start at 20:00 Calcium Carbonate/ Glycine (Oscal) 500 mg TIDWMEALS PO Last administered on 17:39; Start 04/24/17 at 08:00 Citalopram Hydrobromide (CeleXA) 20 mg DAILY PO Last administered on 04/27/17 08:58; Start 04/24/17 at 09:00 Clopidogrel Bisulfate (Plavix) 75 mg DAILY07 PO ; Start 04/24/17 at 07:00; Stop 04/24/17 at 07:00; Status DC Diclofenac Sodium (Voltaren) 1 ayaz BID TP Last administered on 04/25/17 11:53 ; Start 04/23/17 at 21:00; Stop 04/27/17 at 09:23; Status DC Ergocalciferol (Vitamin D2) 50,000 unit Tu PO ; Start 05/01/17 at 09:00 Famotidine (Pepcid) 20 mg HS PO Last administered on 04/27/17 21:33; Start 06/29 at 21:00 Vitamin B Complex/ Vitamin C (Fernanda-Jimmy) 1 tab DAILY PO Last administered on 08:58; Start 04/24/17 at 09:00 Isosorbide Mononitrate (Imdur) 30 mg DAILY PO Last administered on 04/25/17 11 :50; Start 04/24/17 at 09:00 Levetiracetam (Keppra) 500 mg BID PO Last administered on 04/27/17 21:33; Start 04/23/17 at 21:00 Levothyroxine Sodium (Synthroid) 175 mcg DAILY07 PO Last administered on 06:08; Start 04/24/17 at 07:00 Lidocaine (Lidoderm) 1 patch DAILY TD Last administered on 04/27/17 09:00; Start 04/24/17 at 09:00 Meclizine HCl (Antivert) 12.5 mg TID PO Last administered on 04/27/17 21:33; Start 04/23/17 at 21:00 Metoprolol Tartrate (Lopressor) 50 mg BID PO Last administered on 04/27/17 21: 33; Start 04/23/17 at 21:00 Nitroglycerin (Nitrostat) 0.4 mg PRN Q5MIN PRN SL CHEST PAIN; Start 04/23/17 at 20:00 Ropinirole HCl (Requip) 0.25 mg DAILY PO Last administered on 04/27/17 08:59; Start 04/24/17 at 09:00 Sevelamer Carbonate (Renvela) 2,400 mg TIDWMEALS PO Last administered on 16:55; Start 04/24/17 at 08:00 Sodium Bicarbonate (Sodium Bicarbonate) 1,300 mg BID PO Last administered on 21:33; Start 04/23/17 at 21:00 Sucralfate (Carafate) 1 gm BID PO Last administered on 04/27/17 21:33; Start 04/23/17 at 21:00 Trazodone HCl (Desyrel) 50 mg QHS PO Last administered on 04/27/17 21:33; Start 04/23/17 at 21:00 Zolpidem Tartrate (Ambien) 5 mg PRN QHS PRN PO SLEEP Last administered on 22:35; Start 04/23/17 at 20:00 Dexamethasone Sodium Phosphate (Decadron) 20 mg STK-MED ONCE .ROUTE ; Start 07/29 at 09:11; Stop 04/24/17 at 09:12; Status DC Ondansetron HCl (Zofran) 4 mg STK-MED ONCE .ROUTE ; Start 04/24/17 at 09:11; Stop 04/24/17 at 09:12; Status DC Propofol 20 ml @ As Directed STK-MED ONCE IV ; Start 04/24/17 at 09:11; Stop 07/29 at 09:12; Status DC Lidocaine HCl (Lidocaine Pf 2% Vial) 5 ml STK-MED ONCE .ROUTE ; Start 04/24/17 at 09:11; Stop 04/24/17 at 09:12; Status DC Fentanyl Citrate (Fentanyl 2ml Vial) 100 mcg STK-MED ONCE .ROUTE ; Start at 09:11; Stop 04/24/17 at 09:12; Status DC Lidocaine HCl (Xylocaine-Mpf 1% Vial) 2 ml STK-MED ONCE .ROUTE ; Start 04/24/17 at 10:37; Stop 04/24/17 at 10:38; Status DC Darbepoetin Jace (Aranesp) 60 mcg WEEKLYHS SQ Last administered on 04/24/17 20 :43; Start 04/24/17 at 21:00 Sodium Chloride 1,000 ml @ 0 mls/hr Q0M IV Last administered on 04/25/17 08: 18; Start 04/24/17 at 11:15 Bupivacaine HCl/ Epinephrine Bitart (Sensorcaine-Epi 0.25%-1:425423 Mpf) 30 ml STK-MED ONCE .ROUTE ; Start 04/24/17 at 11:03; Stop 04/24/17 at 11:04; Status DC Sodium Chloride 1,000 ml @ 1,000 mls/hr Q1H PRN IV hypotension; Start 04/24/17 at 15:04; Stop 04/24/17 at 21:03; Status DC Info (PHARMACY MONITORING -- do not chart) 1 each PRN DAILY PRN MC SEE COMMENTS ; Start 04/24/17 at 15:15; Status Cancel Vancomycin HCl 2 gm/Sodium Chloride 500 ml @ 250 mls/hr 1X ONCE IV Last administered on 04/25/17 07:00; Start 04/25/17 at 07:00; Stop 04/25/17 at 08:59 ; Status DC Vancomycin HCl 1 each 1X ONCE MC Last administered on 04/26/17 06:00; Start 04/26/17 at 05:00; Stop 04/26/17 at 05:01; Status DC Bupivacaine HCl/ Epinephrine Bitart (Sensorcaine-Epi 0.25%-1:041065 Mpf) 30 ml STK-MED ONCE .ROUTE ; Start 04/25/17 at 07:27; Stop 04/25/17 at 07:28; Status DC Fentanyl Citrate (Fentanyl 2ml Vial) 25 mcg PRN Q5MIN PRN IV MILD PAIN; Start 04/25/17 at 08:00; Stop 04/25/17 at 18:00; Status DC Fentanyl Citrate (Fentanyl 2ml Vial) 50 mcg PRN Q5MIN PRN IV MODERATE PAIN Last administered on 04/25/17 10:20; Start 04/25/17 at 08:00; Stop 04/25/17 at 18:00; Status DC Morphine Sulfate 1 mg PRN Q10MIN PRN IV SEVERE PAIN Last administered on 11:25; Start 04/25/17 at 08:00; Stop 04/25/17 at 18:00; Status DC Ringer's Solution 1,000 ml @ 30 mls/hr Q24H IV ; Start 04/25/17 at 07:47; Stop 04/25/17 at 19:46; Status DC Lidocaine HCl 2 ml PRN 1X PRN ID PRIOR TO IV START; Start 04/25/17 at 08:00; Stop 04/25/17 at 18:00; Status DC Hydromorphone HCl (Dilaudid) 0.5 mg PRN Q10MIN PRN IV SEV PAIN, Second choice Last administered on 04/25/17 11:05; Start 04/25/17 at 08:00; Stop 04/25/17 at 18:00; Status DC Prochlorperazine Edisylate (Compazine) 5 mg PACU PRN PRN IV NAUSEA, MRX1 Last administered on 04/25/17t 10:24; Start 04/25/17 at 08:00; Stop 04/25/17 at 18:00 ; Status DC Lidocaine HCl (Xylocaine-Mpf 1% Vial) 2 ml STK-MED ONCE .ROUTE ; Start 04/24/17 at 10:40; Stop 04/25/17 at 08:04; Status DC Dexamethasone Sodium Phosphate (Decadron) 20 mg STK-MED ONCE .ROUTE ; Start at 08:12; Stop 04/25/17 at 08:13; Status DC Ondansetron HCl (Zofran) 4 mg STK-MED ONCE .ROUTE ; Start 04/25/17 at 08:12; Stop 04/25/17 at 08:13; Status DC Propofol 20 ml @ As Directed STK-MED ONCE IV ; Start 04/25/17 at 08:12; Stop at 08:13; Status DC Lidocaine HCl (Lidocaine Pf 2% Vial) 5 ml STK-MED ONCE .ROUTE ; Start 04/25/17 at 08:12; Stop 04/25/17 at 08:13; Status DC Fentanyl Citrate (Fentanyl 2ml Vial) 100 mcg STK-MED ONCE .ROUTE ; Start at 08:12; Stop 04/25/17 at 08:13; Status DC Succinylcholine Chloride (Anectine) 200 mg STK-MED ONCE .ROUTE ; Start 04/25/17 at 08:13; Stop 04/25/17 at 08:14; Status DC Midazolam HCl (Versed) 2 mg STK-MED ONCE .ROUTE ; Start 04/25/17 at 08:18; Stop 04/25/17 at 08:19; Status DC Desflurane (Suprane) 60 ml STK-MED ONCE IH ; Start 04/25/17 at 08:32; Stop 04/25 at 08:33; Status DC Esmolol HCl (Brevibloc) 100 mg STK-MED ONCE IV ; Start 04/25/17 at 09:06; Stop 04/25/17 at 09:07; Status DC Fentanyl Citrate (Fentanyl 2ml Vial) 100 mcg STK-MED ONCE .ROUTE ; Start at 09:16; Stop 04/25/17 at 09:17; Status DC Prochlorperazine Edisylate (Compazine) 10 mg STK-MED ONCE .ROUTE ; Start at 10:11; Stop 04/25/17 at 10:12; Status DC Fentanyl Citrate (Fentanyl 2ml Vial) 100 mcg STK-MED ONCE .ROUTE ; Start at 10:11; Stop 04/25/17 at 10:12; Status DC Oxycodone HCl (Roxicodone) 5 mg PRN Q3HRS PRN PO PAIN Last administered on 04/27 16:56; Start 04/25/17 at 10:15 Morphine Sulfate 2 mg PRN Q1HR PRN IV PAIN Last administered on 04/28/17 06:43 ; Start 04/25/17 at 10:15 Fentanyl Citrate (Fentanyl 2ml Vial) 25 mcg PRN Q1HR PRN IV PAIN Last administered on 04/25/17 16:11; Start 04/25/17 at 10:15 Senna/Docusate Sodium (Senna Plus) 1 tab DAILY PO Last administered on 08:59; Start 04/26/17 at 09:00 Polyethylene Glycol (miraLAX PACKET) 17 gm PRN DAILY PRN PO CONSTIPATION; Start 04/25/17 at 10:15 Ondansetron HCl (Zofran) 4 mg PRN Q4HRS PRN IV NAUSEA/VOMITING Last administered on 04/26/17 22:30; Start 04/25/17 at 10:15 Magnesium Hydroxide (Milk Of Magnesia) 2,400 mg 1X PRN PRN PO CONSTIPATION; Start 04/26/17 at 06:00; Stop 04/27/17 at 06:00; Status DC Bisacodyl (Dulcolax Supp) 10 mg 1X PRN PRN SC CONSTIPATION; Start 04/26/17 at 16:00; Stop 04/27/17 at 15:59; Status DC Acetaminophen/ Hydrocodone Bitart (Lortab 7.5/325) 1 tab PRN Q4HRS PRN PO PAIN Last administered on 04/25/17 16:38; Start 04/25/17 at 10:15 Morphine Sulfate 4 mg PRN Q2HR PRN IV PAIN Last administered on 04/26/17 14:54 ; Start 04/25/17 at 10:15 Acetaminophen/ Hydrocodone Bitart (Lortab 7.5/325) 2 tab PRN Q4HRS PRN PO PAIN Last administered on 04/27/17 16:55; Start 04/25/17 at 10:15 Dextrose (Dextrose 50%-Water Syringe) 12.5 gm PRN Q15MIN PRN IV SEE COMMENTS; Start 04/25/17 at 10:15; Status Cancel Hydromorphone HCl (Dilaudid) 2 mg STK-MED ONCE .ROUTE ; Start 04/25/17 at 10:28 ; Stop 04/25/17 at 10:29; Status DC Morphine Sulfate 2 mg STK-MED ONCE .ROUTE ; Start 04/25/17 at 10:54; Stop at 10:55; Status DC Oxycodone/ Acetaminophen (Percocet 10/325) 1 tab PRN Q4HRS PRN PO PAIN Last administered on 04/25/17 20:12; Start 04/25/17 at 17:00 Fentanyl Citrate (Fentanyl 2ml Vial) 50 mcg PRN Q1HR PRN IV PAIN Last administered on 04/25/17 17:42; Start 04/25/17 at 17:00 Oxycodone/ Acetaminophen (Percocet 10/325) 2 tab PRN Q4HRS PRN PO PAIN Last administered on 04/28/17 06:08; Start 04/25/17 at 17:00 Heparin Sodium (Porcine) (Heparin Sodium) 2,000 unit 1X ONCE IV Last administered on 04/26/17 09:31; Start 04/26/17 at 08:45; Stop 04/26/17 at 08:49 ; Status DC Sodium Chloride 1,000 ml @ 1,000 mls/hr Q1H PRN IV hypotension; Start 04/26/17 at 08:38; Stop 04/26/17 at 14:37; Status DC Diphenhydramine HCl (Benadryl) 25 mg 1X PRN PRN IV ITCHING; Start 04/26/17 at 08:45; Stop 04/27/17 at 08:44; Status DC Diphenhydramine HCl (Benadryl) 25 mg 1X PRN PRN IV ITCHING; Start 04/26/17 at 08:45; Stop 04/27/17 at 08:44; Status DC Sodium Chloride 1,000 ml @ 400 mls/hr Q2H30M PRN IV PATENCY; Start 04/26/17 at 08:38; Stop 04/26/17 at 20:37; Status DC Info (PHARMACY MONITORING -- do not chart) 1 each PRN DAILY PRN MC SEE COMMENTS ; Start 04/26/17 at 08:45; Status Cancel Diazepam (Valium) 5 mg PRN Q6HRS PRN PO MUSCLE SPASM; Start 04/27/17 at 10:00 Lidocaine HCl (Xylocaine-Mpf 1% Vial) 2 ml 1X ONCE ID Last administered on t 07:00; Start 04/28/17 at 07:00; Stop 04/28/17 at 07:01; Status DC Sodium Chloride 1,000 ml @ 1,000 mls/hr Q1H PRN IV hypotension; Start 04/28/17 at 07:00; Stop 04/28/17 at 12:59 Sodium Chloride 1,000 ml @ 400 mls/hr Q2H30M PRN IV PATENCY; Start 04/28/17 at 07:00; Stop 04/28/17 at 18:59 Info (PHARMACY MONITORING -- do not chart) 1 each PRN DAILY PRN MC SEE COMMENTS ; Start 04/28/17 at 07:45 Active Scripts Active Levetiracetam 500 Mg Tablet 500 Mg PO BID Lidoderm (Lidocaine) 700 Mg Adh..patch 1 Patch TD DAILY Metoprolol Tartrate 50 Mg Tablet 50 Mg PO BID Synthroid (Levothyroxine Sodium) 175 Mcg Tablet 175 Mcg PO DAILY07 Isosorbide Mononitrate Er (Isosorbide Mononitrate) 30 Mg Tab.er.24h 30 Mg PO DAILY Reported Sodium Bicarbonate 650 Mg Tablet 2 Tab PO BID on dialysis days sunday, and sunday Meclizine Hcl 12.5 Mg Tablet 1 Tab PO TID Calcium Carbonate 500 Mg Tablet 500 Mg PO TIDWMEALS Ambien (Zolpidem Tartrate) 5 Mg Tablet 5 Mg PO HS PRN Alprazolam 0.25 Mg Tablet 1 Tab PO PRN Ventolin Hfa Inhaler (Albuterol Sulfate) 18 Gm Hfa.aer.ad 1 Puff INH Q6HRS PRN Ropinirole Hcl 0.25 Mg Tablet 0.25 Mg PO Citalopram Hbr (Citalopram Hydrobromide) 20 Mg Tablet 1 Tab PO DAILY Trazodone Hcl 50 Mg Tablet 0.5-1 Tab PO QHS Risperidone 0.5 Mg Tablet 1 Tab PO QHS Famotidine 20 Mg Tablet 20 Mg PO HS Coumadin (Warfarin Sodium) 5 Mg Tablet 1 Tab PO DAILY Nephro-Jimmy Tablet (Folic Acid/Vitamin B Comp W-C) 0.8 Mg Tablet 1 Tab PO DAILY Carafate (Sucralfate) 1 Gm Tablet 1 Tab PO BID Nitrostat (Nitroglycerin) 0.4 Mg Tab.subl 0.4 Mg SL PRN Q5MIN PRN Voltaren (Diclofenac Sodium) 100 Gm Gel..gram. 1 Gm TP BID Clopidogrel (Clopidogrel Bisulfate) 75 Mg Tablet 75 Mg PO DAILY07 Renvela (Sevelamer Carbonate) 800 Mg Tablet 2,400 Tab PO TIDWMEALS Vitamin D2 (Ergocalciferol (Vitamin D2)) 50,000 Unit Capsule 50,000 Unit PO WEEKLY weekly on Sunday Atorvastatin Calcium 80 Mg Tablet 80 Mg PO HS Vitals/I & O Vital Sign - Last 24 Hours 04/27/17 04/27/17 04/27/17 04/27/17 15:00 19:00 20:00 21:32 Temp 97.9 98.2 97.9 98.2 Pulse 80 77 Resp 18 16 16 B/P (MAP) 113/53 (73) 116/66 (83) Pulse Ox 97 99 O2 Delivery Room Air Room Air Room Air Room Air 04/27/17 04/27/17 04/27/17 04/27/17 21:33 22:30 23:00 23:00 Temp 98.8 98.8 Pulse 69 84 Resp 16 16 16 B/P (MAP) 110/72 122/66 (84) Pulse Ox 100 O2 Delivery Room Air Room Air Room Air 04/27/17 04/28/17 04/28/17 04/28/17 23:30 03:14 06:08 06:43 Temp 97.7 97.7 Pulse 84 Resp 16 16 16 16 B/P (MAP) 115/62 (79) Pulse Ox 96 O2 Delivery Room Air Room Air Room Air Room Air Intake and Output 04/28/17 04/28/17 04/29/17 15:00 23:00 07:00 Output Total 300 ml Balance -300 ml VIC [id number] III DO Apr 28, 2017 12:02
[2017-04-28] MEDS: MORPHINE SULFATE 4 MG/ML DISP.SYRIN. IV PRN ×4 (12:07→20:06)
[2017-04-28] MEDS: SODIUM BICARBONATE 650 MG TABLET. PO SCH ×2 (12:07→20:04)
[2017-04-28 15:00] VITALS: BP 104/68
[2017-04-28] MEDS ORDERED: guaiFENesin/CODEINE 100mg/10mg 5 ML LIQUID PO PRN ×2 (16:30)
[2017-04-28 19:00] VITALS: BP 107/61
[2017-04-28] MEDS: traZODone 50 MG TABLET. PO SCH (20:04)
[2017-04-28] MEDS: FAMOTIDINE 20 MG TABLET. PO SCH (20:04)
[2017-04-28 23:13] VITALS: BP 128/60
[2017-04-29 03:05] VITALS: BP 115/58
[2017-04-29] MEDS: oxyCODONE/APAP 10/325 1 TAB TABLET PO PRN ×3 (05:11→20:40)
[2017-04-29] MEDS: LEVOTHYROXINE 175 MCG TABLET PO SCH (06:19)
[2017-04-29 07:00] VITALS: BP 123/69
[2017-04-29] MEDS ORDERED: ALTEPLASE 2 MG VIAL INT CAT ONE (07:00)
[2017-04-29 07:49] LABS: BASO # 0.1 x10^3/uL (0.0-0.2); BASO % 1 % (0-3); EOS % 3 % (0-3); HEMATOCRIT 22.7 % (39.0-53.0); HEMOGLOBIN 7.3 g/dL (13.0-17.5); LYMPH % 16 % (24-48); MEAN CORPUSCULAR HEMOGLOBIN 30 pg (25-35); MEAN CORPUSCULAR HGB CONC 32 g/dL (31-37); MEAN CORPUSCULAR VOLUME 93 fL (79-100); MONO % 15 % (0-9); NEUT % 64 % (31-73); PLATELET COUNT 171 x10^3/uL (140-400); RED BLOOD COUNT 2.43 x10^6/uL (4.30-5.70); RED CELL DISTRIBUTION WIDTH 15.6 % (11.5-14.5); WHITE BLOOD COUNT 6.2 x10^3/uL (4.0-11.0)
[2017-04-29 07:54] LABS: CALCIUM 8.2 mg/dL (8.5-10.1); CREATININE 5.4 mg/dL (0.7-1.3); GFR 13.6; POTASSIUM 4.2 mmol/L (3.5-5.1)
[2017-04-29] MEDS: INSULIN ASPART 300 UNITS/3 ML INSULN.PEN SQ SCH ×3 (08:00→17:00)
[2017-04-29] MEDS: oxyCODONE IR 5 MG TABLET PO PRN ×2 (08:46→16:44)
[2017-04-29] MEDS: SEVELAMER CARBONATE 800 MG TABLET. PO SCH ×3 (08:47→16:45)
[2017-04-29] MEDS: METOPROLOL TART IMMED RELEASE 50 MG TABLET. PO SCH ×2 (08:48→20:39)
[2017-04-29] MEDS: FOLIC/VIT B COMP W-C (RENAL) TABLET. PO SCH (08:48)
[2017-04-29] MEDS: MECLIZINE HCL 12.5 MG TABLET. PO SCH ×3 (08:48→20:38)
[2017-04-29] MEDS: SODIUM BICARBONATE 650 MG TABLET. PO SCH ×2 (08:48→20:38)
[2017-04-29] MEDS: SUCRALFATE 1 GM TABLET. PO SCH ×2 (08:49→20:38)
[2017-04-29] MEDS: SENNOSIDES/DOCUSATE 8.6/50MG TABLET. PO SCH (08:49)
[2017-04-29] MEDS: rOPINIRole 0.25 MG TABLET. PO SCH (08:50)
[2017-04-29] MEDS: CITALOPRAM 20 MG TABLET. PO SCH (08:51)
[2017-04-29] MEDS: CALCIUM CARBONATE 500 MG TABLET PO SCH ×3 (08:52→16:44)
[2017-04-29] MEDS: ISOSORBIDE MONONITRATE ER 30 MG TAB.ER.24H PO SCH (08:52)
[2017-04-29] MEDS: LIDOCAINE (700MG/PATCH) PATCH. TD SCH (08:56)
[2017-04-29] MEDS: levETIRAcetam 500 MG TABLET PO SCH ×3 (09:00→20:38)
[2017-04-29] MEDS ORDERED: LEVE500T6 PO (09:09)
[2017-04-29] MEDS ORDERED: ENOXAPARIN 40 MG/0.4 ML SYRINGE. SQ ONE (09:45)
[2017-04-29 11:00] VITALS: BP 117/57
[2017-04-29 13:36] LABS: INR 1.2 (0.8-1.1); PROTHROMBIN TIME PATIENT 14.4 SEC (11.7-14.0)
--- NOTE | 2017-04-29 14:58 | PDOC ---
PROGRESS NOTES Chief Complaint Chief Complaint Peripheral vascular disease L LE infection ESRD Hyperlipidemia HTN DM2 Depression Anemia History of Present Illness History of Present Illness Pt was admitted for non-resolving L foot infxn and received L BKA. POD-5. No acute overnight events. Pt was on HD. Awake, pleasant, in NAD. Spoke with both pt and today. Dimas is in the room, waiting on stump end stapler. Vitals Vitals Vital Signs Date Time Temp Pulse Resp B/P (MAP) Pulse Ox O2 Delivery O2 Flow Rate FiO2 04/29/17 12:51 16 Room Air 04/29/17 11:00 97.9 82 117/57 (77) 97 97.9 04/28/17 11:57 18.0 Physical Exam General: Alert, Oriented X3, Cooperative, No acute distress Heart: Regular rate, Normal S1, Normal S2 Lungs: Clear, Other (no acute respiratory distress noted) Abdomen: Normal bowel sounds, Soft, No tenderness Extremities: No clubbing, No cyanosis, Other (LLE BKA dressing CDI) Skin: No rashes, No breakdown, Other Labs LABS Laboratory Tests Test 04/28/17 15:58 04/28/17 20:45 04/29/17 07:42 04/29/17 07:47 Glucose (Fingerstick) 124 mg/dL (70-99) 107 mg/dL (70-99) 95 mg/dL (70-99) White Blood Count 6.2 x10^3/uL (4.0-11.0) Red Blood Count 2.43 x10^6/uL (4.30-5.70) Hemoglobin 7.3 g/dL (13.0-17.5) Hematocrit 22.7 % (39.0-53.0) Mean Corpuscular Volume 93 fL (79-100) Mean Corpuscular Hemoglobin 30 pg (25-35) Mean Corpuscular Hemoglobin Concent 32 g/dL (31-37) Red Cell Distribution Width 15.6 % (11.5-14.5) Platelet Count 171 x10^3/uL (140-400) Neutrophils (%) (Auto) 64 % (31-73) Lymphocytes (%) (Auto) 16 % (24-48) Monocytes (%) (Auto) 15 % (0-9) Eosinophils (%) (Auto) 3 % (0-3) Basophils (%) (Auto) 1 % (0-3) Neutrophils # (Auto) 4.0 x10^3uL (1.8-7.7) Lymphocytes # (Auto) 1.0 x10^3/uL (1.0-4.8) Monocytes # (Auto) 0.9 x10^3/uL (0.0-1.1) Eosinophils # (Auto) 0.2 x10^3/uL (0.0-0.7) Basophils # (Auto) 0.1 x10^3/uL (0.0-0.2) Sodium Level 135 mmol/L (136-145) Potassium Level 4.2 mmol/L (3.5-5.1) Chloride Level 99 mmol/L (98-107) Carbon Dioxide Level 33 mmol/L (21-32) Anion Gap 3 (6-14) Blood Urea Nitrogen 26 mg/dL (8-26) Creatinine 5.4 mg/dL (0.7-1.3) Estimated GFR (Cockcroft-Gault) 13.6 Glucose Level 98 mg/dL (70-99) Calcium Level 8.2 mg/dL (8.5-10.1) Test 04/29/17 10:49 04/29/17 13:10 Glucose (Fingerstick) 98 mg/dL (70-99) Prothrombin Time 14.4 SEC (11.7-14.0) Prothromb Time International Ratio 1.2 (0.8-1.1) Review of Systems Review of Systems Complains of stump pain Complains of hunger Assessment and Plan Assessmemt and Plan BKA: Post-op day 5. Continue wound care & pain meds PRN. Peripheral vascular disease: continue home meds. Monitor ESRD: continue dialysis Hyperlipidemia: continue to monitor levels. HTN: monitor DM2: monitor. Continue meds Depression: continue celexa Anemia Plan Continue wound care & pain meds prn Continue dialysis PTOT Probable DC to [facility] on Saturday 06/30 Problems: Comment Review of Relevant I have reviewed the following items lila (where applicable) has been applied. Labs Laboratory Tests Test 04/27/17 16:17 04/27/17 21:05 04/28/17 06:30 04/28/17 11:03 Glucose (Fingerstick) 119 mg/dL (70-99) 112 mg/dL (70-99) 107 mg/dL (70-99) White Blood Count 5.5 x10^3/uL (4.0-11.0) Red Blood Count 2.71 x10^6/uL (4.30-5.70) Hemoglobin 8.1 g/dL (13.0-17.5) Hematocrit 25.5 % (39.0-53.0) Mean Corpuscular Volume 94 fL (79-100) Mean Corpuscular Hemoglobin 30 pg (25-35) Mean Corpuscular Hemoglobin Concent 32 g/dL (31-37) Red Cell Distribution Width 15.4 % (11.5-14.5) Platelet Count 174 x10^3/uL (140-400) Neutrophils (%) (Auto) 61 % (31-73) Lymphocytes (%) (Auto) 18 % (24-48) Monocytes (%) (Auto) 16 % (0-9) Eosinophils (%) (Auto) 4 % (0-3) Basophils (%) (Auto) 1 % (0-3) Neutrophils # (Auto) 3.4 x10^3uL (1.8-7.7) Lymphocytes # (Auto) 1.0 x10^3/uL (1.0-4.8) Monocytes # (Auto) 0.9 x10^3/uL (0.0-1.1) Eosinophils # (Auto) 0.2 x10^3/uL (0.0-0.7) Basophils # (Auto) 0.0 x10^3/uL (0.0-0.2) Sodium Level 137 mmol/L (136-145) Potassium Level 5.2 mmol/L (3.5-5.1) Chloride Level 101 mmol/L (98-107) Carbon Dioxide Level 32 mmol/L (21-32) Anion Gap 4 (6-14) Blood Urea Nitrogen 36 mg/dL (8-26) Creatinine 6.4 mg/dL (0.7-1.3) Estimated GFR (Cockcroft-Gault) 11.2 Glucose Level 95 mg/dL (70-99) Calcium Level 9.0 mg/dL (8.5-10.1) Test 04/28/17 15:58 04/28/17 20:45 04/29/17 07:42 04/29/17 07:47 Glucose (Fingerstick) 124 mg/dL (70-99) 107 mg/dL (70-99) 95 mg/dL (70-99) White Blood Count 6.2 x10^3/uL (4.0-11.0) Red Blood Count 2.43 x10^6/uL (4.30-5.70) Hemoglobin 7.3 g/dL (13.0-17.5) Hematocrit 22.7 % (39.0-53.0) Mean Corpuscular Volume 93 fL (79-100) Mean Corpuscular Hemoglobin 30 pg (25-35) Mean Corpuscular Hemoglobin Concent 32 g/dL (31-37) Red Cell Distribution Width 15.6 % (11.5-14.5) Platelet Count 171 x10^3/uL (140-400) Neutrophils (%) (Auto) 64 % (31-73) Lymphocytes (%) (Auto) 16 % (24-48) Monocytes (%) (Auto) 15 % (0-9) Eosinophils (%) (Auto) 3 % (0-3) Basophils (%) (Auto) 1 % (0-3) Neutrophils # (Auto) 4.0 x10^3uL (1.8-7.7) Lymphocytes # (Auto) 1.0 x10^3/uL (1.0-4.8) Monocytes # (Auto) 0.9 x10^3/uL (0.0-1.1) Eosinophils # (Auto) 0.2 x10^3/uL (0.0-0.7) Basophils # (Auto) 0.1 x10^3/uL (0.0-0.2) Sodium Level 135 mmol/L (136-145) Potassium Level 4.2 mmol/L (3.5-5.1) Chloride Level 99 mmol/L (98-107) Carbon Dioxide Level 33 mmol/L (21-32) Anion Gap 3 (6-14) Blood Urea Nitrogen 26 mg/dL (8-26) Creatinine 5.4 mg/dL (0.7-1.3) Estimated GFR (Cockcroft-Gault) 13.6 Glucose Level 98 mg/dL (70-99) Calcium Level 8.2 mg/dL (8.5-10.1) Test 9/17/17 10:49 04/29/17 13:10 Glucose (Fingerstick) 98 mg/dL (70-99) Prothrombin Time 14.4 SEC (11.7-14.0) Prothromb Time International Ratio 1.2 (0.8-1.1) Laboratory Tests Test 04/28/17 15:58 04/28/17 20:45 04/29/17 07:42 04/29/17 07:47 Glucose (Fingerstick) 124 mg/dL (70-99) 107 mg/dL (70-99) 95 mg/dL (70-99) White Blood Count 6.2 x10^3/uL (4.0-11.0) Red Blood Count 2.43 x10^6/uL (4.30-5.70) Hemoglobin 7.3 g/dL (13.0-17.5) Hematocrit 22.7 % (39.0-53.0) Mean Corpuscular Volume 93 fL (79-100) Mean Corpuscular Hemoglobin 30 pg (25-35) Mean Corpuscular Hemoglobin Concent 32 g/dL (31-37) Red Cell Distribution Width 15.6 % (11.5-14.5) Platelet Count 171 x10^3/uL (140-400) Neutrophils (%) (Auto) 64 % (31-73) Lymphocytes (%) (Auto) 16 % (24-48) Monocytes (%) (Auto) 15 % (0-9) Eosinophils (%) (Auto) 3 % (0-3) Basophils (%) (Auto) 1 % (0-3) Neutrophils # (Auto) 4.0 x10^3uL (1.8-7.7) Lymphocytes # (Auto) 1.0 x10^3/uL (1.0-4.8) Monocytes # (Auto) 0.9 x10^3/uL (0.0-1.1) Eosinophils # (Auto) 0.2 x10^3/uL (0.0-0.7) Basophils # (Auto) 0.1 x10^3/uL (0.0-0.2) Sodium Level 135 mmol/L (136-145) Potassium Level 4.2 mmol/L (3.5-5.1) Chloride Level 99 mmol/L (98-107) Carbon Dioxide Level 33 mmol/L (21-32) Anion Gap 3 (6-14) Blood Urea Nitrogen 26 mg/dL (8-26) Creatinine 5.4 mg/dL (0.7-1.3) Estimated GFR (Cockcroft-Gault) 13.6 Glucose Level 98 mg/dL (70-99) Calcium Level 8.2 mg/dL (8.5-10.1) Test 04/29/17 10:49 04/29/17 13:10 Glucose (Fingerstick) 98 mg/dL (70-99) Prothrombin Time 14.4 SEC (11.7-14.0) Prothromb Time International Ratio 1.2 (0.8-1.1) Medications Current Medications Piperacillin Sod/ Tazobactam Sod (Zosyn Per Pharmacy) 1 each PRN DAILY PRN MC SEE COMMENTS; Start 04/23/17 at 18:30; Status UNV Vancomycin HCl (Vanco Per Pharmacy) 1 each PRN DAILY PRN MC SEE COMMENTS Last administered on 04/26/17 15:06; Start 04/23/17 at 18:30; Stop 04/27/17 at 13:47 ; Status DC Vancomycin HCl 2 gm/Sodium Chloride 500 ml @ 250 mls/hr 1X ONCE IV Last administered on 04/23/17 21:05; Start 04/23/17 at 19:00; Stop 04/23/17 at 20:59 ; Status DC Meropenem 500 mg/ Sodium Chloride 50 ml @ 100 mls/hr Q24H IV Last administered on 04/27/17 21:35; Start 04/23/17 at 20:00; Stop 04/27/17 at 23:00 ; Status DC Vancomycin HCl 1 each 1X ONCE MC Last administered on 04/25/17 05:00; Start 04/25/17 at 05:00; Stop 04/25/17 at 05:01; Status DC Insulin Aspart (NovoLOG) 0-7 UNITS TIDWMEALS SQ Last administered on 04/26/17 18:43; Start 04/23/17 at 20:00 Dextrose (Dextrose 50%-Water Syringe) 12.5 gm PRN Q15MIN PRN IV SEE COMMENTS; Start 04/23/17 at 20:00 Alprazolam (Xanax) 0.25 mg PRN Q6HRS PRN PO ANXIETY / AGITATION; Start at 20:00 Calcium Carbonate/ Glycine (Oscal) 500 mg TIDWMEALS PO Last administered on 12:51; Start 04/24/17 at 08:00 Citalopram Hydrobromide (CeleXA) 20 mg DAILY PO Last administered on 04/29/17 08:51; Start 04/24/17 at 09:00 Clopidogrel Bisulfate (Plavix) 75 mg DAILY07 PO ; Start 04/24/17 at 07:00; Stop 04/24/17 at 07:00; Status DC Diclofenac Sodium (Voltaren) 1 ayaz BID TP Last administered on 04/25/17 11:53 ; Start 04/23/17 at 21:00; Stop 04/27/17 at 09:23; Status DC Ergocalciferol (Vitamin D2) 50,000 unit Tu PO ; Start 05/01/17 at 09:00 Famotidine (Pepcid) 20 mg HS PO Last administered on 04/28/17 20:04; Start 06/29 at 21:00; Stop 04/29/17 at 12:50; Status DC Vitamin B Complex/ Vitamin C (Fernanda-Jimmy) 1 tab DAILY PO Last administered on 08:48; Start 04/24/17 at 09:00 Isosorbide Mononitrate (Imdur) 30 mg DAILY PO Last administered on 04/29/17 08 :52; Start 04/24/17 at 09:00 Levetiracetam (Keppra) 500 mg BID PO Last administered on 04/28/17 20:03; Start 04/23/17 at 21:00; Stop 04/29/17 at 09:48; Status DC Levothyroxine Sodium (Synthroid) 175 mcg DAILY07 PO Last administered on 06:19; Start 04/24/17 at 07:00 Lidocaine (Lidoderm) 1 patch DAILY TD Last administered on 04/29/17 08:56; Start 04/24/17 at 09:00 Meclizine HCl (Antivert) 12.5 mg TID PO Last administered on 04/29/17 12:51; Start 04/23/17 at 21:00 Metoprolol Tartrate (Lopressor) 50 mg BID PO Last administered on 04/29/17 08: 48; Start 04/23/17 at 21:00 Nitroglycerin (Nitrostat) 0.4 mg PRN Q5MIN PRN SL CHEST PAIN; Start 04/23/17 at 20:00 Ropinirole HCl (Requip) 0.25 mg DAILY PO Last administered on 04/29/17 08:50; Start 04/24/17 at 09:00 Sevelamer Carbonate (Renvela) 2,400 mg TIDWMEALS PO Last administered on 12:51; Start 04/24/17 at 08:00 Sodium Bicarbonate (Sodium Bicarbonate) 1,300 mg BID PO Last administered on 08:48; Start 04/23/17 at 21:00 Sucralfate (Carafate) 1 gm BID PO Last administered on 04/29/17 08:49; Start 04/23/17 at 21:00 Trazodone HCl (Desyrel) 50 mg QHS PO Last administered on 04/28/17 20:04; Start 04/23/17 at 21:00 Zolpidem Tartrate (Ambien) 5 mg PRN QHS PRN PO SLEEP Last administered on 22:35; Start 04/23/17 at 20:00 Dexamethasone Sodium Phosphate (Decadron) 20 mg STK-MED ONCE .ROUTE ; Start 07/29 at 09:11; Stop 04/24/17 at 09:12; Status DC Ondansetron HCl (Zofran) 4 mg STK-MED ONCE .ROUTE ; Start 04/24/17 at 09:11; Stop 04/24/17 at 09:12; Status DC Propofol 20 ml @ As Directed STK-MED ONCE IV ; Start 04/24/17 at 09:11; Stop 07/29 at 09:12; Status DC Lidocaine HCl (Lidocaine Pf 2% Vial) 5 ml STK-MED ONCE .ROUTE ; Start 04/24/17 at 09:11; Stop 04/24/17 at 09:12; Status DC Fentanyl Citrate (Fentanyl 2ml Vial) 100 mcg STK-MED ONCE .ROUTE ; Start at 09:11; Stop 04/24/17 at 09:12; Status DC Lidocaine HCl (Xylocaine-Mpf 1% Vial) 2 ml STK-MED ONCE .ROUTE ; Start 04/24/17 at 10:37; Stop 04/24/17 at 10:38; Status DC Darbepoetin Jace (Aranesp) 60 mcg WEEKLYHS SQ Last administered on 04/24/17 20 :43; Start 04/24/17 at 21:00 Sodium Chloride 1,000 ml @ 0 mls/hr Q0M IV Last administered on 04/25/17 08: 18; Start 04/24/17 at 11:15 Bupivacaine HCl/ Epinephrine Bitart (Sensorcaine-Epi 0.25%-1:[id number] Mpf) 30 ml STK-MED ONCE .ROUTE ; Start 04/24/17 at 11:03; Stop 04/24/17 at 11:04; Status DC Sodium Chloride 1,000 ml @ 1,000 mls/hr Q1H PRN IV hypotension; Start 04/24/17 at 15:04; Stop 04/24/17 at 21:03; Status DC Info (PHARMACY MONITORING -- do not chart) 1 each PRN DAILY PRN MC SEE COMMENTS ; Start 04/24/17 at 15:15; Status Cancel Vancomycin HCl 2 gm/Sodium Chloride 500 ml @ 250 mls/hr 1X ONCE IV Last administered on 04/25/17 07:00; Start 04/25/17 at 07:00; Stop 04/25/17 at 08:59 ; Status DC Vancomycin HCl 1 each 1X ONCE MC Last administered on 04/26/17 06:00; Start 04/26/17 at 05:00; Stop 04/26/17 at 05:01; Status DC Bupivacaine HCl/ Epinephrine Bitart (Sensorcaine-Epi 0.25%-1:[id number] Mpf) 30 ml STK-MED ONCE .ROUTE ; Start 04/25/17 at 07:27; Stop 04/25/17 at 07:28; Status DC Fentanyl Citrate (Fentanyl 2ml Vial) 25 mcg PRN Q5MIN PRN IV MILD PAIN; Start 04/25/17 at 08:00; Stop 04/25/17 at 18:00; Status DC Fentanyl Citrate (Fentanyl 2ml Vial) 50 mcg PRN Q5MIN PRN IV MODERATE PAIN Last administered on 04/25/17 10:20; Start 04/25/17 at 08:00; Stop 04/25/17 at 18:00; Status DC Morphine Sulfate 1 mg PRN Q10MIN PRN IV SEVERE PAIN Last administered on 11:25; Start 04/25/17 at 08:00; Stop 04/25/17 at 18:00; Status DC Ringer's Solution 1,000 ml @ 30 mls/hr Q24H IV ; Start 04/25/17 at 07:47; Stop 04/25/17 at 19:46; Status DC Lidocaine HCl 2 ml PRN 1X PRN ID PRIOR TO IV START; Start 04/25/17 at 08:00; Stop 04/25/17 at 18:00; Status DC Hydromorphone HCl (Dilaudid) 0.5 mg PRN Q10MIN PRN IV SEV PAIN, Second choice Last administered on 04/25/17 11:05; Start 04/25/17 at 08:00; Stop 04/25/17 at 18:00; Status DC Prochlorperazine Edisylate (Compazine) 5 mg PACU PRN PRN IV NAUSEA, MRX1 Last administered on 04/25/17 10:24; Start 04/25/17 at 08:00; Stop 04/25/17 at 18:00 ; Status DC Lidocaine HCl (Xylocaine-Mpf 1% Vial) 2 ml STK-MED ONCE .ROUTE ; Start 04/24/17 at 10:40; Stop 04/25/17 at 08:04; Status DC Dexamethasone Sodium Phosphate (Decadron) 20 mg STK-MED ONCE .ROUTE ; Start at 08:12; Stop 04/25/17 at 08:13; Status DC Ondansetron HCl (Zofran) 4 mg STK-MED ONCE .ROUTE ; Start 04/25/17 at 08:12; Stop 04/25/17 at 08:13; Status DC Propofol 20 ml @ As Directed STK-MED ONCE IV ; Start 04/25/17 at 08:12; Stop at 08:13; Status DC Lidocaine HCl (Lidocaine Pf 2% Vial) 5 ml STK-MED ONCE .ROUTE ; Start 04/25/17 at 08:12; Stop 04/25/17 at 08:13; Status DC Fentanyl Citrate (Fentanyl 2ml Vial) 100 mcg STK-MED ONCE .ROUTE ; Start at 08:12; Stop 04/25/17 at 08:13; Status DC Succinylcholine Chloride (Anectine) 200 mg STK-MED ONCE .ROUTE ; Start 04/25/17 at 08:13; Stop 04/25/17 at 08:14; Status DC Midazolam HCl (Versed) 2 mg STK-MED ONCE .ROUTE ; Start 04/25/17 at 08:18; Stop 04/25/17 at 08:19; Status DC Desflurane (Suprane) 60 ml STK-MED ONCE IH ; Start 04/25/17 at 08:32; Stop 04/25 at 08:33; Status DC Esmolol HCl (Brevibloc) 100 mg STK-MED ONCE IV ; Start 04/25/17 at 09:06; Stop 04/25/17 at 09:07; Status DC Fentanyl Citrate (Fentanyl 2ml Vial) 100 mcg STK-MED ONCE .ROUTE ; Start at 09:16; Stop 04/25/17 at 09:17; Status DC Prochlorperazine Edisylate (Compazine) 10 mg STK-MED ONCE .ROUTE ; Start at 10:11; Stop 04/25/17 at 10:12; Status DC Fentanyl Citrate (Fentanyl 2ml Vial) 100 mcg STK-MED ONCE .ROUTE ; Start at 10:11; Stop 04/25/17 at 10:12; Status DC Oxycodone HCl (Roxicodone) 5 mg PRN Q3HRS PRN PO PAIN Last administered on 04/29 08:46; Start 04/25/17 at 10:15 Morphine Sulfate 2 mg PRN Q1HR PRN IV PAIN Last administered on 04/28/17 06:43 ; Start 04/25/17 at 10:15 Fentanyl Citrate (Fentanyl 2ml Vial) 25 mcg PRN Q1HR PRN IV PAIN Last administered on 04/25/17 16:11; Start 04/25/17 at 10:15 Senna/Docusate Sodium (Senna Plus) 1 tab DAILY PO Last administered on 11:59; Start 04/26/17 at 09:00 Polyethylene Glycol (miraLAX PACKET) 17 gm PRN DAILY PRN PO CONSTIPATION; Start 04/25/17 at 10:15 Ondansetron HCl (Zofran) 4 mg PRN Q4HRS PRN IV NAUSEA/VOMITING Last administered on 04/26/17 22:30; Start 04/25/17 at 10:15 Magnesium Hydroxide (Milk Of Magnesia) 2,400 mg 1X PRN PRN PO CONSTIPATION; Start 04/26/17 at 06:00; Stop 04/27/17 at 06:00; Status DC Bisacodyl (Dulcolax Supp) 10 mg 1X PRN PRN HI CONSTIPATION; Start 04/26/17 at 16:00; Stop 04/27/17 at 15:59; Status DC Acetaminophen/ Hydrocodone Bitart (Lortab 7.5/325) 1 tab PRN Q4HRS PRN PO PAIN Last administered on 04/25/17 16:38; Start 04/25/17 at 10:15 Morphine Sulfate 4 mg PRN Q2HR PRN IV PAIN Last administered on 04/28/17 20:06 ; Start 04/25/17 at 10:15 Acetaminophen/ Hydrocodone Bitart (Lortab 7.5/325) 2 tab PRN Q4HRS PRN PO PAIN Last administered on 04/27/17 16:55; Start 04/25/17 at 10:15 Dextrose (Dextrose 50%-Water Syringe) 12.5 gm PRN Q15MIN PRN IV SEE COMMENTS; Start 04/25/17 at 10:15; Status Cancel Hydromorphone HCl (Dilaudid) 2 mg STK-MED ONCE .ROUTE ; Start 04/25/17 at 10:28 ; Stop 04/25/17 at 10:29; Status DC Morphine Sulfate 2 mg STK-MED ONCE .ROUTE ; Start 04/25/17 at 10:54; Stop at 10:55; Status DC Oxycodone/ Acetaminophen (Percocet 10/325) 1 tab PRN Q4HRS PRN PO PAIN Last administered on 04/29/17 05:11; Start 04/25/17 at 17:00 Fentanyl Citrate (Fentanyl 2ml Vial) 50 mcg PRN Q1HR PRN IV PAIN Last administered on 04/25/17 17:42; Start 04/25/17 at 17:00 Oxycodone/ Acetaminophen (Percocet 10/325) 2 tab PRN Q4HRS PRN PO PAIN Last administered on 04/29/17 12:51; Start 04/25/17 at 17:00 Heparin Sodium (Porcine) (Heparin Sodium) 2,000 unit 1X ONCE IV Last administered on 04/26/17 09:31; Start 04/26/17 at 08:45; Stop 04/26/17 at 08:49 ; Status DC Sodium Chloride 1,000 ml @ 1,000 mls/hr Q1H PRN IV hypotension; Start 04/26/17 at 08:38; Stop 04/26/17 at 14:37; Status DC Diphenhydramine HCl (Benadryl) 25 mg 1X PRN PRN IV ITCHING; Start 04/26/17 at 08:45; Stop 04/27/17 at 08:44; Status DC Diphenhydramine HCl (Benadryl) 25 mg 1X PRN PRN IV ITCHING; Start 04/26/17 at 08:45; Stop 04/27/17 at 08:44; Status DC Sodium Chloride 1,000 ml @ 400 mls/hr Q2H30M PRN IV PATENCY; Start 04/26/17 at 08:38; Stop 04/26/17 at 20:37; Status DC Info (PHARMACY MONITORING -- do not chart) 1 each PRN DAILY PRN MC SEE COMMENTS ; Start 04/26/17 at 08:45; Status Cancel Diazepam (Valium) 5 mg PRN Q6HRS PRN PO MUSCLE SPASM; Start 04/27/17 at 10:00 Lidocaine HCl (Xylocaine-Mpf 1% Vial) 2 ml 1X ONCE ID Last administered on 07:00; Start 04/28/17 at 07:00; Stop 04/28/17 at 07:01; Status DC Sodium Chloride 1,000 ml @ 1,000 mls/hr Q1H PRN IV hypotension; Start 04/28/17 at 07:00; Stop 04/28/17 at 12:59; Status DC Sodium Chloride 1,000 ml @ 400 mls/hr Q2H30M PRN IV PATENCY; Start 04/28/17 at 07:00; Stop 04/28/17 at 18:59; Status DC Info (PHARMACY MONITORING -- do not chart) 1 each PRN DAILY PRN MC SEE COMMENTS ; Start 04/28/17 at 07:45 Guaifenesin/ Codeine Phosphate (Robitussin Ac) 5 ml PRN Q12HRS PRN PO COUGH Last administered on 04/28/17 16:40; Start 04/28/17 at 16:30 Guaifenesin/ Codeine Phosphate (Robitussin Ac) 10 ml PRN Q12HRS PRN PO COUGH; Start 04/28/17 at 16:30 Alteplase, Recombinant (Cathflo) 2 mg 1X ONCE INT CAT Last administered on 06:37; Start 04/29/17 at 07:00; Stop 04/29/17 at 07:01; Status DC Levetiracetam (Keppra) 1,000 mg BID PO Last administered on 04/29/17 10:01; Start 04/29/17 at 09:30 Warfarin Sodium (Coumadin) 5 mg DAILY PO ; Start 04/30/17 at 09:00; Status UNV Warfarin Sodium (Coumadin Per Pharmacy) 1 each PRN DAILY PRN MC SEE COMMENTS Last administered on 04/29/17 13:54; Start 04/29/17 at 09:45 Enoxaparin Sodium (Lovenox 40mg Syringe) 40 mg 1X ONCE SQ Last administered on 04/29/17 09:45; Start 04/29/17 at 09:45; Stop 04/29/17 at 09:51; Status DC Famotidine (Pepcid) 20 mg Q48H PO ; Start 04/29/17 at 21:00 Warfarin Sodium (Coumadin) 7.5 mg 1X WARF ONCE PO ; Start 04/29/17 at 16:00; Stop 04/29/17 at 16:01 Active Scripts Active Lidoderm (Lidocaine) 700 Mg Adh..patch 1 Patch TD DAILY Metoprolol Tartrate 50 Mg Tablet 50 Mg PO BID Synthroid (Levothyroxine Sodium) 175 Mcg Tablet 175 Mcg PO DAILY07 Isosorbide Mononitrate Er (Isosorbide Mononitrate) 30 Mg Tab.er.24h 30 Mg PO DAILY Reported Levetiracetam 500 Mg Tablet 1,000 Mg PO BID Sodium Bicarbonate 650 Mg Tablet 2 Tab PO BID on dialysis day, and sunday Meclizine Hcl 12.5 Mg Tablet 1 Tab PO TID Calcium Carbonate 500 Mg Tablet 500 Mg PO TIDWMEALS Ambien (Zolpidem Tartrate) 5 Mg Tablet 5 Mg PO HS PRN Alprazolam 0.25 Mg Tablet 1 Tab PO PRN Ventolin Hfa Inhaler (Albuterol Sulfate) 18 Gm Hfa.aer.ad 1 Puff INH Q6HRS PRN Ropinirole Hcl 0.25 Mg Tablet 0.25 Mg PO Citalopram Hbr (Citalopram Hydrobromide) 20 Mg Tablet 1 Tab PO DAILY Trazodone Hcl 50 Mg Tablet 0.5-1 Tab PO QHS Risperidone 0.5 Mg Tablet 1 Tab PO QHS Famotidine 20 Mg Tablet 20 Mg PO HS Coumadin (Warfarin Sodium) 5 Mg Tablet 1 Tab PO DAILY Nephro-Jimmy Tablet (Folic Acid/Vitamin B Comp W-C) 0.8 Mg Tablet 1 Tab PO DAILY Carafate (Sucralfate) 1 Gm Tablet 1 Tab PO BID Nitrostat (Nitroglycerin) 0.4 Mg Tab.subl 0.4 Mg SL PRN Q5MIN PRN Voltaren (Diclofenac Sodium) 100 Gm Gel..gram. 1 Gm TP BID Clopidogrel (Clopidogrel Bisulfate) 75 Mg Tablet 75 Mg PO DAILY07 Renvela (Sevelamer Carbonate) 800 Mg Tablet 2,400 Tab PO TIDWMEALS Vitamin D2 (Ergocalciferol (Vitamin D2)) 50,000 Unit Capsule 50,000 Unit PO WEEKLY weekly on Sunday Atorvastatin Calcium 80 Mg Tablet 80 Mg PO HS Vitals/I & O Vital Sign - Last 24 Hours 04/28/17 04/28/17 04/28/17 04/28/17 15:00 16:44 17:14 19:00 Temp 97.9 99.1 97.9 99.1 Pulse 86 72 Resp 18 20 20 18 B/P (MAP) 104/68 (80) 107/61 (76) Pulse Ox 95 96 O2 Delivery Room Air Room Air Room Air 04/28/17 04/28/17 04/28/17 04/28/17 20:06 20:30 20:40 23:13 Temp 98.8 98.8 Pulse 82 Resp 18 B/P (MAP) 128/60 (82) Pulse Ox 95 95 100 O2 Delivery Room Air Room Air Room Air Room Air 04/29/17 04/29/17 04/29/17 04/29/17 03:05 05:11 06:19 07:00 Temp 99.1 97.7 99.1 97.7 Pulse 81 88 Resp 18 18 B/P (MAP) 115/58 (77) 123/69 (87) Pulse Ox 96 96 96 92 O2 Delivery Room Air Room Air Room Air Room Air 04/29/17 04/29/17 04/29/17 04/29/17 08:46 08:48 08:52 09:47 Pulse 88 88 Resp 16 16 B/P (MAP) 123/69 123/69 O2 Delivery Room Air Room Air 04/29/17 04/29/17 11:00 12:51 Temp 97.9 97.9 Pulse 82 Resp 18 16 B/P (MAP) 117/57 (77) Pulse Ox 97 O2 Delivery Room Air Room Air VIC TIWARI III DO Apr 29, 2017 14:58
[2017-04-29 15:00] VITALS: BP 107/52
[2017-04-29] MEDS ORDERED: WARFARIN 7.5 MG TABLET. PO ONE (16:00)
[2017-04-29] MEDS: MORPHINE SULFATE 4 MG/ML DISP.SYRIN. IV PRN (16:41)
[2017-04-29 19:00] VITALS: BP 110/57
[2017-04-29] MEDS: traZODone 50 MG TABLET. PO SCH (20:40)
[2017-04-29] MEDS ORDERED: FAMOTIDINE 20 MG TABLET. PO SCH (21:00)
[2017-04-29 23:00] VITALS: BP 126/59
[2017-04-30 03:00] VITALS: BP 117/54
[2017-04-30] MEDS: oxyCODONE/APAP 10/325 1 TAB TABLET PO PRN ×3 (04:55→14:46)
[2017-04-30 05:24] LABS: BASO # 0.1 x10^3/uL (0.0-0.2); BASO % 1 % (0-3); EOS % 3 % (0-3); HEMATOCRIT 23.9 % (39.0-53.0); HEMOGLOBIN 7.8 g/dL (13.0-17.5); LYMPH # 1.3 x10^3/uL (1.0-4.8); LYMPH % 21 % (24-48); MEAN CORPUSCULAR HEMOGLOBIN 30 pg (25-35); MEAN CORPUSCULAR HGB CONC 33 g/dL (31-37); MEAN CORPUSCULAR VOLUME 91 fL (79-100); MONO % 15 % (0-9); NEUT % 60 % (31-73); PLATELET COUNT 220 x10^3/uL (140-400); RED BLOOD COUNT 2.62 x10^6/uL (4.30-5.70); RED CELL DISTRIBUTION WIDTH 15.3 % (11.5-14.5); WHITE BLOOD COUNT 6.4 x10^3/uL (4.0-11.0)
[2017-04-30 05:26] LABS: INR 1.2 (0.8-1.1); PROTHROMBIN TIME PATIENT 14.8 SEC (11.7-14.0)
[2017-04-30 05:59] LABS: CALCIUM 8.8 mg/dL (8.5-10.1); CREATININE 6.8 mg/dL (0.7-1.3); GFR 10.4; POTASSIUM 4.1 mmol/L (3.5-5.1)
[2017-04-30] MEDS: LEVOTHYROXINE 175 MCG TABLET PO SCH (06:15)
[2017-04-30 07:00] VITALS: BP 120/57
[2017-04-30] MEDS: INSULIN ASPART 300 UNITS/3 ML INSULN.PEN SQ SCH ×2 (08:00→12:00)
[2017-04-30] MEDS: MECLIZINE HCL 12.5 MG TABLET. PO SCH ×2 (08:35→14:46)
[2017-04-30] MEDS: CITALOPRAM 20 MG TABLET. PO SCH (08:36)
[2017-04-30] MEDS: SENNOSIDES/DOCUSATE 8.6/50MG TABLET. PO SCH (08:37)
[2017-04-30] MEDS: METOPROLOL TART IMMED RELEASE 50 MG TABLET. PO SCH (08:37)
[2017-04-30] MEDS: oxyCODONE IR 5 MG TABLET PO PRN (08:40)
[2017-04-30] MEDS: SEVELAMER CARBONATE 800 MG TABLET. PO SCH ×2 (08:40→10:38)
[2017-04-30] MEDS: levETIRAcetam 500 MG TABLET PO SCH (08:41)
[2017-04-30] MEDS: ISOSORBIDE MONONITRATE ER 30 MG TAB.ER.24H PO SCH (08:42)
[2017-04-30] MEDS: FOLIC/VIT B COMP W-C (RENAL) TABLET. PO SCH (08:42)
[2017-04-30] MEDS: SODIUM BICARBONATE 650 MG TABLET. PO SCH (08:42)
[2017-04-30] MEDS: SUCRALFATE 1 GM TABLET. PO SCH (08:43)
[2017-04-30] MEDS: CALCIUM CARBONATE 500 MG TABLET PO SCH ×2 (08:43→10:38)
[2017-04-30] MEDS: rOPINIRole 0.25 MG TABLET. PO SCH (08:44)
[2017-04-30] MEDS: LIDOCAINE (700MG/PATCH) PATCH. TD SCH ×2 (08:45→10:30)
[2017-04-30] MEDS ORDERED: WARFARIN 5 MG TABLET. PO SCH (09:00)
[2017-04-30] MEDS ORDERED: HYDR-2762 PO (10:29)
[2017-04-30 11:00] VITALS: BP 93/51
--- NOTE | 2017-04-30 12:44 | PDOC ---
SUBJECTIVE ROS ESRD Doing OK overall CVS: no Orthopnea, no CP RESP: no SOB, no MCCLAIN GI: no Nausea, no Vomiting : no Dysuria, no Urgency OBJECTIVE Vital Signs Vital Signs Date Time Temp Pulse Resp B/P (MAP) Pulse Ox O2 Delivery O2 Flow Rate FiO2 04/30/17 12:28 Room Air 04/30/17 11:00 97.8 73 16 93/51 (65) 96 97.8 PHYSICAL EXAM Physical Exam GEN: Awake, Oriented x 3, In no distress EYES: Vision Unchanged, Conjunctiva Normal EN: No EN Drainage, Mucous Membranes moist NECK: no JVD, no JVP, Supple, no Thyromegaly CVS: S1S2, ? soft Murmur, No Gallop, No Rub,no Edema RESP: no Rales, no Rhonchi,no Acc. Muscle Use GI: BS + ve, NO Bruit, Non Tender, Non Distended - obese : no CVA tenderness, no Suprapubic Tenderness DIAGNOSIS/ASSESSMENT Assessment & Plan ESRD: Current FLuid and E-lyte status does not necessitate emergent need for Dialysis. Will re-evaluate for Dialysis in am and continue on TTSAt schedule. Anemia: Aranesp as ordered Transfuse with next HD as needed for hgb < 7 HypoTN: Current meds reviewed. watch trend on current regimen DFU - s/p Left BKA Discussed Plan of Care with Family () at bedside Problems: COMMENT/RELEVANT DATA Meds Current Medications Medications (Trade) Dose Ordered Sig/[place] Start Time Stop Time Status Last Admin Dose Admin Acetaminophen/ Hydrocodone Bitart (Lortab 7.5/325) 2 tab PRN Q4HRS PRN 04/25/17 10:15 04/27/17 16:55 2 TAB Alprazolam (Xanax) 0.25 mg PRN Q6HRS PRN 04/23/17 20:00 Alteplase, Recombinant (Cathflo) 2 mg 1X ONCE 04/29/17 07:00 04/29/17 07:01 DC 04/29/17 06:37 2 MG Bisacodyl (Dulcolax Supp) 10 mg 1X PRN PRN 04/26/17 16:00 04/27/17 15:59 DC Bupivacaine HCl/ Epinephrine Bitart (Sensorcaine-Epi 0.25%-1:[id number] Mpf) 30 ml STK-MED ONCE 04/25/17 07:27 04/25/17 07:28 DC Calcium Carbonate/ Glycine (Oscal) 500 mg TIDWMEALS 04/24/17 08:00 04/30/17 10:38 500 MG Citalopram Hydrobromide (CeleXA) 20 mg DAILY 04/24/17 09:00 04/30/17 08:36 20 MG Clopidogrel Bisulfate (Plavix) 75 mg DAILY07 04/24/17 07:00 04/24/17 07:00 DC Darbepoetin Jace (Aranesp) 60 mcg WEEKLYHS 04/24/17 21:00 04/24/17 20:43 60 MCG Desflurane (Suprane) 60 ml STK-MED ONCE 04/25/17 08:32 04/25/17 08:33 DC Dexamethasone Sodium Phosphate (Decadron) 20 mg STK-MED ONCE 04/25/17 08:12 04/25/17 08:13 DC Dextrose (Dextrose 50%-Water Syringe) 12.5 gm PRN Q15MIN PRN 04/25/17 10:15 Cancel Diazepam (Valium) 5 mg PRN Q6HRS PRN 04/27/17 10:00 Diclofenac Sodium (Voltaren) 1 ayaz BID 04/23/17 21:00 04/27/17 09:23 DC 04/25/17 11:53 1 AYAZ Diphenhydramine HCl (Benadryl) 25 mg 1X PRN PRN 04/26/17 08:45 04/27/17 08:44 DC Enoxaparin Sodium (Lovenox 40mg Syringe) 40 mg 1X ONCE 04/29/17 09:45 04/29/17 09:51 DC 04/29/17 09:45 40 MG Ergocalciferol (Vitamin D2) 50,000 unit Tu 05/01/17 09:00 Esmolol HCl (Brevibloc) 100 mg STK-MED ONCE 04/25/17 09:06 04/25/17 09:07 DC Famotidine (Pepcid) 20 mg Q48H 04/29/17 21:00 04/29/17 20:38 20 MG Fentanyl Citrate (Fentanyl 2ml Vial) 50 mcg PRN Q1HR PRN 04/25/17 17:00 04/25/17 17:42 50 MCG Guaifenesin/ Codeine Phosphate (Robitussin Ac) 10 ml PRN Q12HRS PRN 04/28/17 16:30 Heparin Sodium (Porcine) (Heparin Sodium) 2,000 unit 1X ONCE 04/26/17 08:45 04/26/17 08:49 DC 04/26/17 09:31 2,000 UNIT Hydromorphone HCl (Dilaudid) 2 mg STK-MED ONCE 04/25/17 10:28 04/25/17 10:29 DC Info (PHARMACY MONITORING -- do not chart) 1 each PRN DAILY PRN 04/28/17 07:45 Insulin Aspart (NovoLOG) 0-7 UNITS TIDWMEALS 04/23/17 20:00 04/26/17 18:43 3 UNITS Isosorbide Mononitrate (Imdur) 30 mg DAILY 04/24/17 09:00 04/30/17 08:42 30 MG Levetiracetam (Keppra) 1,000 mg BID 04/29/17 09:30 04/30/17 08:41 1,000 MG Levothyroxine Sodium (Synthroid) 175 mcg DAILY07 04/24/17 07:00 04/30/17 06:15 175 MCG Lidocaine (Lidoderm) 1 patch DAILY 04/24/17 09:00 04/30/17 08:45 1 PATCH Lidocaine HCl (Lidocaine Pf 2% Vial) 5 ml STK-MED ONCE 04/25/17 08:12 04/25/17 08:13 DC Lidocaine HCl (Xylocaine-Mpf 1% Vial) 2 ml 1X ONCE 04/28/17 07:00 04/28/17 07:01 DC 04/28/17 07:00 2 ML Magnesium Hydroxide (Milk Of Magnesia) 2,400 mg 1X PRN PRN 04/26/17 06:00 04/27/17 06:00 DC Meclizine HCl (Antivert) 12.5 mg TID 04/23/17 21:00 04/30/17 08:35 12.5 MG Meropenem 500 mg/ Sodium Chloride 50 ml @ 100 mls/hr Q24H 04/23/17 20:00 04/27/17 23:00 DC 04/27/17 21:35 100 MLS/HR Metoprolol Tartrate (Lopressor) 50 mg BID 04/23/17 21:00 04/30/17 08:37 50 MG Midazolam HCl (Versed) 2 mg STK-MED ONCE 04/25/17 08:18 04/25/17 08:19 DC Morphine Sulfate 2 mg STK-MED ONCE 04/25/17 10:54 04/25/17 10:55 DC Nitroglycerin (Nitrostat) 0.4 mg PRN Q5MIN PRN 04/23/17 20:00 Ondansetron HCl (Zofran) 4 mg PRN Q4HRS PRN 04/25/17 10:15 04/26/17 22:30 4 MG Oxycodone HCl (Roxicodone) 5 mg PRN Q3HRS PRN 04/25/17 10:15 04/30/17 08:40 5 MG Oxycodone/ Acetaminophen (Percocet 10/325) 2 tab PRN Q4HRS PRN 04/25/17 17:00 04/30/17 10:37 2 TAB Piperacillin Sod/ Tazobactam Sod (Zosyn Per Pharmacy) 1 each PRN DAILY PRN 04/23/17 18:30 UNV Polyethylene Glycol (miraLAX PACKET) 17 gm PRN DAILY PRN 04/25/17 10:15 Prochlorperazine Edisylate (Compazine) 10 mg STK-MED ONCE 04/25/17 10:11 04/25/17 10:12 DC Propofol 20 ml @ As Directed STK-MED ONCE 04/25/17 08:12 04/25/17 08:13 DC Ringer's Solution 1,000 ml @ 30 mls/hr Q24H 04/25/17 07:47 04/25/17 19:46 DC Ropinirole HCl (Requip) 0.25 mg DAILY 04/24/17 09:00 04/30/17 08:44 0.25 MG Senna/Docusate Sodium (Senna Plus) 1 tab DAILY 04/26/17 09:00 04/30/17 08:37 1 TAB Sevelamer Carbonate (Renvela) 2,400 mg TIDWMEALS 04/24/17 08:00 04/30/17 10:38 2,400 MG Sodium Bicarbonate (Sodium Bicarbonate) 1,300 mg BID 04/23/17 21:00 04/30/17 08:42 1,300 MG Sodium Chloride 1,000 ml @ 400 mls/hr Q2H30M PRN 04/28/17 07:00 04/28/17 18:59 DC Succinylcholine Chloride (Anectine) 200 mg STK-MED ONCE 04/25/17 08:13 04/25/17 08:14 DC Sucralfate (Carafate) 1 gm BID 04/23/17 21:00 04/30/17 08:43 1 GM Trazodone HCl (Desyrel) 50 mg QHS 04/23/17 21:00 04/29/17 20:40 50 MG Vancomycin HCl 1 each 1X ONCE 04/26/17 05:00 04/26/17 05:01 DC 04/26/17 06:00 1 EACH Vancomycin HCl (Vanco Per Pharmacy) 1 each PRN DAILY PRN 04/23/17 18:30 04/27/17 13:47 DC 04/26/17 15:06 1 EACH Vancomycin HCl 2 gm/Sodium Chloride 500 ml @ 250 mls/hr 1X ONCE 04/25/17 07:00 04/25/17 08:59 DC 04/25/17 07:00 250 MLS/HR Vitamin B Complex/ Vitamin C (Ferannda-Jimmy) 1 tab DAILY 04/24/17 09:00 04/30/17 08:42 1 TAB Warfarin Sodium (Coumadin Per Pharmacy) 1 each PRN DAILY PRN 04/29/17 09:45 04/30/17 11:22 1 EACH Warfarin Sodium (Coumadin) 7.5 mg 1X WARF ONCE 04/30/17 16:00 04/30/17 16:01 Zolpidem Tartrate (Ambien) 5 mg PRN QHS PRN 04/23/17 20:00 04/26/17 22:35 5 MG Lab Laboratory Tests Test 04/29/17 13:10 04/29/17 16:20 04/29/17 20:39 04/30/17 05:00 Prothrombin Time 14.4 SEC (11.7-14.0) 14.8 SEC (11.7-14.0) Prothromb Time International Ratio 1.2 (0.8-1.1) 1.2 (0.8-1.1) Glucose (Fingerstick) 105 mg/dL (70-99) 88 mg/dL (70-99) White Blood Count 6.4 x10^3/uL (4.0-11.0) Red Blood Count 2.62 x10^6/uL (4.30-5.70) Hemoglobin 7.8 g/dL (13.0-17.5) Hematocrit 23.9 % (39.0-53.0) Mean Corpuscular Volume 91 fL (79-100) Mean Corpuscular Hemoglobin 30 pg (25-35) Mean Corpuscular Hemoglobin Concent 33 g/dL (31-37) Red Cell Distribution Width 15.3 % (11.5-14.5) Platelet Count 220 x10^3/uL (140-400) Neutrophils (%) (Auto) 60 % (31-73) Lymphocytes (%) (Auto) 21 % (24-48) Monocytes (%) (Auto) 15 % (0-9) Eosinophils (%) (Auto) 3 % (0-3) Basophils (%) (Auto) 1 % (0-3) Neutrophils # (Auto) 3.9 x10^3uL (1.8-7.7) Lymphocytes # (Auto) 1.3 x10^3/uL (1.0-4.8) Monocytes # (Auto) 0.9 x10^3/uL (0.0-1.1) Eosinophils # (Auto) 0.2 x10^3/uL (0.0-0.7) Basophils # (Auto) 0.1 x10^3/uL (0.0-0.2) Sodium Level 138 mmol/L (136-145) Potassium Level 4.1 mmol/L (3.5-5.1) Chloride Level 100 mmol/L (98-107) Carbon Dioxide Level 32 mmol/L (21-32) Anion Gap 6 (6-14) Blood Urea Nitrogen 34 mg/dL (8-26) Creatinine 6.8 mg/dL (0.7-1.3) Estimated GFR (Cockcroft-Gault) 10.4 Glucose Level 125 mg/dL (70-99) Calcium Level 8.8 mg/dL (8.5-10.1) Test 04/30/17 07:43 04/30/17 11:45 Glucose (Fingerstick) 114 mg/dL (70-99) 139 mg/dL (70-99) MYRON LIANG MD Apr 30, 2017 12:44
--- NOTE | 2017-04-30 14:59 | PDOC3 ---
Discharge Summary [facility] Date of Admission: Apr 23, 2017 Discharge Date: Apr 30, 2017 Admitting Diagnosis 1.left lower ext gangrene post BKA 2. recent LEft foot osteo post op wound, gaping sutures, subcutaneous edema around - CRP 62, fevers 3. ESRD on HD TTHS 4. Anemia of CKD 5. Obesity BMI 37 6. Hx Left foot infected wound with osteomyelitis. Enterobacter. s/p TMA, closed wound, 03/02 7. Hypothyroidism chronic 8. History of coronary artery disease 9. History of DVT's on warfarin 11. History of chronic back pain 12. Paroxysmal atrial fibrillation on warfarin 13. Obesity 14. GERD h/o 08/15 + bacteremia wit staph aureus Problems: CONSULTS ortho renal Procedures bka Brief Hospital Course Mr. Goel is a 51 old M, very nice gentleman, unfortunately many comobidities including HD, recurrent bacteremia, AVF problems, seizures, DVT, recurrent left foot osteomyelitis post sx, came for left leg gangrene, for which he underwent BKA. the wound is healing well, closed, RONIT removed. no abx. stable to dc to rehab. cont warfarin, no WB. dc time 35min. General: Alert, Oriented X3, Cooperative, No acute distress Heart: Regular rate, Normal S1, Normal S2 Lungs: Clear, Other (no acute respiratory distress noted) Abdomen: Normal bowel sounds, Soft, No tenderness Extremities: No clubbing, No cyanosis, Other (LLE BKA dressing CDI, wound clean , closed, a tiny wound with very mild sanguous discharge) Skin: No rashes, No breakdown, Other Patient History: Bone cancer G8 SISTER FH: myocardial infarction G8 BROTHER G8 BROTHER 32 MOTHER FHx: multiple myeloma 32 MOTHER Family history: Asthma 33 FATHER Family history: Diabetes mellitus (situation) G8 BROTHER G8 BROTHER G8 BROTHER 33 FATHER 32 MOTHER G8 SISTER Family history: Hypertension (situation) G8 BROTHER G8 BROTHER G8 BROTHER 33 FATHER 32 MOTHER G8 SISTER Problems: Disposition rehab CONDITION AT DISCHARGE: Improved, Stable Diet renal Scheduled Atorvastatin Calcium (Atorvastatin Calcium), 80 MG PO HS, (Reported) Calcium Carbonate (Calcium Carbonate), 500 MG PO TIDWMEALS, (Reported) Citalopram Hydrobromide (Citalopram Hbr), 1 TAB PO DAILY, (Reported) Clopidogrel Bisulfate (Clopidogrel), 75 MG PO DAILY07, (Reported) Diclofenac Sodium (Voltaren), 1 GM TP BID, (Reported) Ergocalciferol (Vitamin D2) (Vitamin D2), 50,000 UNIT PO WEEKLY, (Reported) Famotidine (Famotidine), 20 MG PO HS, (Reported) Folic Acid/Vitamin B Comp W-C (Nephro-Jimmy Tablet), 1 TAB PO DAILY, (Reported) Isosorbide Mononitrate (Isosorbide Mononitrate Er), 30 MG PO DAILY Levetiracetam (Levetiracetam), 1,000 MG PO BID, (Reported) Levothyroxine Sodium (Synthroid), 175 MCG PO DAILY07 Lidocaine (Lidoderm), 1 PATCH TD DAILY Meclizine Hcl (Meclizine Hcl), 1 TAB PO TID, (Reported) Metoprolol Tartrate (Metoprolol Tartrate), 50 MG PO BID Risperidone (Risperidone), 1 TAB PO QHS, (Reported) Sevelamer Carbonate (Renvela), 2,400 TAB PO TIDWMEALS, (Reported) Sodium Bicarbonate (Sodium Bicarbonate), 2 TAB PO BID, (Reported) Sucralfate (Carafate), 1 TAB PO BID, (Reported) Trazodone Hcl (Trazodone Hcl), 0.5-1 TAB PO QHS, (Reported) Warfarin Sodium (Coumadin), 1 TAB PO DAILY, (Reported) Scheduled PRN Albuterol Sulfate (Ventolin Hfa Inhaler), 1 PUFF INH Q6HRS PRN for SHORTNESS OF BREATH, (Reported) Alprazolam (Alprazolam), 1 TAB PO for ANXIETY / AGITATION, (Reported) Hydrocodone Bit/Acetaminophen (Hydrocodone-Apap 7.5-325 ), 1 TAB PO PRN Q4HRS PRN for PAIN Nitroglycerin (Nitrostat), 0.4 MG SL PRN Q5MIN PRN for CHEST PAIN, (Reported) Zolpidem Tartrate (Ambien), 5 MG PO HS PRN for sleep, (Reported) Miscellaneous Medications Ropinirole Hcl (Ropinirole Hcl), 0.25 MG PO, (Reported) Follow Up ortho in 2 weeks SKYLAR TSE MD Apr 30, 2017 14:59
[2017-04-30 15:00] VITALS: BP 133/58
[2017-04-30] MEDS ORDERED: WARFARIN 7.5 MG TABLET. PO ONE (16:00)
[2017-05-01] MEDS ORDERED: ERGOCALCIFEROL (VITAMIN D2) 50,000 UNIT CAPSULE. PO SCH (09:00)
== END 2017-04-30 16:38 | DRG 239 ==
LOC: 4 NORTH 17:03
PROVIDERS: ADMIT Internal Medicine; ATTEND Internal Medicine
PROC: 02HV33Z Insertion of Infusion Device into Superior Vena Cava, Percutaneous Approach (ICD-10-PCS; 2017-04-23)
PROC: 5A1D60Z (ICD-10-PCS; 2017-04-23)
PROC: 0Y6J0Z1 Detachment at Left Lower Leg, High, Open Approach (ICD-10-PCS; principal; 2017-04-25 08:30)
PROC: 0SRC0J9 Replacement of Right Knee Joint with Synthetic Substitute, Cemented, Open Approach (ICD-10-PCS; 2017-04-26)
DX: E11.52 Type 2 diabetes mellitus with diabetic peripheral angiopathy with gangrene (principal); N18.6 End stage renal disease; I13.2 Hypertensive heart and chronic kidney disease with heart failure and with stage 5 chronic kidney disease, or end stage renal disease; E11.22 Type 2 diabetes mellitus with diabetic chronic kidney disease; M86.9 Osteomyelitis, unspecified; E11.40 Type 2 diabetes mellitus with diabetic neuropathy, unspecified; F03.90 Unspecified dementia, unspecified severity, without behavioral disturbance, psychotic disturbance, mood disturbance, and anxiety; I95.9 Hypotension, unspecified; I48.0 Paroxysmal atrial fibrillation; L08.9 Local infection of the skin and subcutaneous tissue, unspecified; D63.1 Anemia in chronic kidney disease; E03.9 Hypothyroidism, unspecified; E66.9 Obesity, unspecified; Z68.37 Body mass index [BMI] 37.0-37.9, adult; E78.5 Hyperlipidemia, unspecified; F32.9 Major depressive disorder, single episode, unspecified; F41.9 Anxiety disorder, unspecified; I25.10 Atherosclerotic heart disease of native coronary artery without angina pectoris; I50.9 Heart failure, unspecified; J45.909 Unspecified asthma, uncomplicated; K21.9 Gastro-esophageal reflux disease without esophagitis; M17.11 Unilateral primary osteoarthritis, right knee; S81.802A Unspecified open wound, left lower leg, initial encounter; Z80.7 Family history of other malignant neoplasms of lymphoid, hematopoietic and related tissues; Z82.49 Family history of ischemic heart disease and other diseases of the circulatory system; Z82.5 Family history of asthma and other chronic lower respiratory diseases; Z83.3 Family history of diabetes mellitus; Z85.830 Personal history of malignant neoplasm of bone; Z86.718 Personal history of other venous thrombosis and embolism; Z86.73 Personal history of transient ischemic attack (TIA), and cerebral infarction without residual deficits; Z99.2 Dependence on renal dialysis; G89.29 Other chronic pain; K57.90 Diverticulosis of intestine, part unspecified, without perforation or abscess without bleeding; Z88.8 Allergy status to other drugs, medicaments and biological substances; Z91.041 Radiographic dye allergy status; Z91.013 Allergy to seafood; R56.9 Unspecified convulsions
CPT/HCPCS: 36415; 71010; 80048; 80053; 80202; 82962; 85025; 85610; 88307; J0330; J0780; J0881; J1100; J1170; J1650; J1815; J2185; J2250; J2270; J2405; J2704; J2997; J3010; J3370; J3490; J7030; J7040; J8597; 97110; 97116; 97530; 97535; J2001

== ENCOUNTER 2017-07-31 06:52 | Inpatient (IN) | payer MEDICARE, OTHER ==
[~2017-07-31] VITALS: Ht 198.1 cm; Wt 142.1 kg
[2017-07-31] VITALS (11 sets, daily range): BP systolic 141–173; BP diastolic 68–96
[~2017-07-31 06:52] MED LIST changes: -METO50TA2 PO; +METO50TA6 PO; +VANC1.5P26 IV; -VANC1.5P3 IV
[2017-07-31] MEDS ORDERED: IODIXANOL 320 MG/ML 100 ML VIAL. ONE ×3 (07:16→14:35)
[2017-07-31] MEDS ORDERED: LIDOCAINE 2% 20 ML VIAL. ONE ×2 (07:16→14:32)
[2017-07-31] MEDS ORDERED: FAMOTIDINE 20 MG TABLET. ONE (07:51)
[2017-07-31] MEDS ORDERED: diphenhydrAMINE HCL 25 MG CAPSULE PO ONE ×2 (07:51→08:00)
[2017-07-31] MEDS ORDERED: FAMOTIDINE 20 MG TABLET. PO ONE (08:00)
[2017-07-31] MEDS ORDERED: IV NORMAL SALINE 1000ML BAG 1,000 ML IV SCH (08:00)
[2017-07-31] MEDS ORDERED: predniSONE 10 MG TABLET PO ONE (08:00)
[2017-07-31] MEDS ORDERED: METO50TA6 PO (08:18)
[2017-07-31] MEDS ORDERED: LOSA100T6 PO (08:18)
[2017-07-31 08:38] LABS: HEMATOCRIT 33.6 % (39.0-53.0); HEMOGLOBIN 10.9 g/dL (13.0-17.5); RED BLOOD COUNT 3.71 x10^6/uL (4.30-5.70); RED CELL DISTRIBUTION WIDTH 14.7 % (11.5-14.5); WHITE BLOOD COUNT 4.1 x10^3/uL (4.0-11.0)
[2017-07-31 08:45] LABS: CALCIUM 8.1 mg/dL (8.5-10.1); CREATININE 6.1 mg/dL (0.7-1.3); GFR 11.8; POTASSIUM 3.9 mmol/L (3.5-5.1)
[2017-07-31 08:47] LABS: INR 1.1 (0.8-1.1); PROTHROMBIN TIME PATIENT 13.6 SEC (11.7-14.0)
[2017-07-31] MEDS ORDERED: LORA10TA68 PO (09:21)
[2017-07-31] MEDS ORDERED: GUAI-295 PO (09:21)
[2017-07-31] MEDS ORDERED: WARF10TA45 PO (09:21)
--- NOTE | 2017-07-31 13:02 | PDOC ---
MODERATE SEDATION ASSESSMENT RISKS/ALTERNATIVES Risks/Alternatives Risks and alternatives of this type of sedation and procedure discussed with: RISK/ALTERNATIVES: Patient H & P ON CHART H & P H & P on chart and reviewed for co-morbid conditions and appropriate labs. H&P ON CHART: Yes STATUS PREG STATUS ASSESSED: N/A MEDS/ALLERGIES REVIEWED Meds/Allergies Reviewed Medications and Allergies including time and route of recently administered narcotics and sedatives. MEDS/ALLERGIES REVIEWED: Yes ASA RATING ASA RATING: III AIRWAY ASSESSMENT Airway Assessment Airway patency, oral function limitations, presence of caps, crowns, dentures, partials, and ability to extend neck assessed. AIRWAY ASSESSMENT: Yes MALLAMPATI SCORE MALLAMPATI SCORE: III PRE-SEDATION ASSESSMENT PRE-SEDATION ASSESSMENT: Yes ROB LOOMIS MD Jul 31, 2017 13:02
[2017-07-31] MEDS ORDERED: diphenhydrAMINE 50 MG/ML VIAL IVP ONE (13:45)
[2017-07-31] MEDS ORDERED: methylPREDNISolone SOD SUCC PF 125 MG/2 ML VIAL. IV ONE (13:45)
[2017-07-31] MEDS ORDERED: fentaNYL PF VIAL 100 MCG/2 ML VIAL ONE (14:52)
[2017-07-31] MEDS ORDERED: MIDAZOLAM HCL/PF 2 MG/2 ML VIAL. ONE (14:52)
[2017-07-31] MEDS ORDERED: LIDOCAINE 2% 20 ML VIAL. IJ ONE (15:15)
[2017-07-31] MEDS ORDERED: MIDAZOLAM HCL/PF 2 MG/2 ML VIAL. IV ONE (15:15)
[2017-07-31] MEDS ORDERED: IODIXANOL 320 MG/ML 100 ML VIAL. IART ONE (15:15)
[2017-07-31] MEDS ORDERED: fentaNYL PF VIAL 100 MCG/2 ML VIAL IV ONE (15:15)
[2017-07-31] MEDS ORDERED: MAGN500C10 PO (17:09)
[2017-07-31] MEDS ORDERED: DICL100G18 TP (17:09)
[2017-07-31] MEDS ORDERED: MIDO5TAB PO (17:09)
[2017-07-31] MEDS ORDERED: CALC500T PO (17:09)
[2017-07-31] MEDS ORDERED: DARB40DI SQ (17:09)
[2017-07-31] MEDS ORDERED: SEVE800T9 PO (17:09)
[2017-07-31] MEDS ORDERED: FAMO20TA5 PO (17:09)
[2017-07-31] MEDS ORDERED: DEXA0.5E2 PO (17:09)
[2017-07-31] MEDS ORDERED: FOLI0.8T3 PO (17:09)
[2017-07-31] MEDS ORDERED: HYDR-963 PO (17:10)
[2017-07-31] MEDS ORDERED: MORP30TA83 PO (17:10)
[2017-07-31] MEDS ORDERED: CHOL20002 PO (17:10)
[2017-07-31] MEDS ORDERED: ONDA4TAB10 PO (17:29)
[2017-07-31] MEDS ORDERED: METO10TA81 PO (17:29)
[2017-07-31] MEDS ORDERED: MULT1TAB52 PO (17:29)
[2017-07-31] MEDS ORDERED: ACET325T9 PO (17:29)
[2017-07-31] MEDS ORDERED: CALC667T PO (17:29)
[2017-07-31] MEDS ORDERED: ALPR0.254 PO (17:29)
[2017-07-31] MEDS ORDERED: BISA-42 PO (17:29)
--- NOTE | 2017-07-31 17:48 | CARD ---
APPROVED REPORT Procedure(s) performed: Sedation Time: 35 minutes C, Coronary angiography, Left ventriculogram. HISTORY The patient is a 52 year-old male with a history of : previous CHF. CASE TECHNIQUE During this case, Fluoroscopy and low osmolar contrast were used for imaging. PROCEDURE NARRATIVE The patient was brought electively to the cardiac catheterization lab. A timeout was performed confi rming the patient's name, date of , procedure, and site of procedure. All necessary personnel w ere wearing the appropriate protective equipment and radiation monitor devices. After explaining the risks and benefits of the procedure and alternatives, informed consent was obtained. (See nursing no wenceslao for medications administered). The right groin was sterilely prepped and draped in the usual fas hion. The right groin was infiltrated with 20 mL of 2% lidocaine for subcutaneous anesthesia. A 6 F sheath was inserted into the right femoral artery without difficulty via the modified seldinger techn ique with an 18G needle and a J-tipped guidewire. Next, an 5Fr sheath was inserted in the right commo n femoral vein in similar fashion without difficulty for intravenous access. Subsequently, right and left coronary angiography was performed using standard JR4 and JL4/JL5 diagno stic catheters. Left ventricular end diastolic pressure was obtained with a pigtail catheter and pul lback was performed after left ventriculography. HEMODYNAMICS: LVEDP 18mm Hg AO: 170/79 *No gradient on LV to aortic pullback. LEFT VENTRICULOGRAM: EF 65% Anterobasal: Normal. Anterolateral: Normal Apical: Normal Diaphragmatic: Normal Posterobasal: Mildly hypokinetic. *Mild mitral regurgitation. CORONARY ANGIOGRAPHY: LM is a large caliber vessel with normal angiographic appearance. LAD is a large caliber vessel with a mid 30% stenosis. The distal vessel has mild luminal irregularit ies of up to 30%. D1 is a small caliber vessel with up to 80% stenosis. LCx is a large caliber dominant vessel with a distal 100% in stent occlusion at the site of LPL1. OM1 is a small caliber vessel with normal angiographic appearance. OM2 is a small to moderate caliber vessel with mild luminal irregularities. LPL1 is a small to moderate caliber vessel with an ostial/proximal 80% stenosis that is jailed by the previously placed distal LCx stents. LPDA is a moderate sized vessel that is occluded proximally. RCA is a small caliber diffusely diseased vessel of up to 50% stenosis. Conclusion 1. Mildly elevated left sided filling pressures. 2. Normal LV systolic function. EF 55% 3. Severe three vessel CAD with occlusion of previously placed distal LCx stents in a [employer]IAN vessel, lik lew due to poor outflow. Recommendations Aggressive medical therapy Will discuss with nephrology regarding need for complete revascularization in the setting of possible transplant listing.
[2017-07-31] MEDS ORDERED: NITROGLYCERIN SUBLINGUAL 0.4 MG BOTTLE OF 25. SL PRN (18:00)
[2017-07-31] MEDS ORDERED: BISACODYL 5 MG TABLET.DR. PO PRN (18:00)
[2017-07-31] MEDS ORDERED: ONDANSETRON ODT 4 MG TAB.RAPDIS. PO PRN (18:00)
[2017-07-31] MEDS ORDERED: NON FORMULARY ITEM (Albuterol Sulfate (Ventolin Hfa Inhaler) 1 PUFF) INH PRN (18:00)
[2017-07-31] MEDS ORDERED: ALPRAZolam 0.25 MG TABLET PO PRN (18:00)
[2017-07-31] MEDS ORDERED: MECLIZINE HCL 12.5 MG TABLET. PO PRN (18:00)
[2017-07-31] MEDS ORDERED: ACETAMINOPHEN 325 MG TABLET. PO PRN (18:00)
[2017-07-31] MEDS ORDERED: CALCIUM CARBONATE 500 MG TABLET PO PRN (18:00)
[2017-07-31] MEDS ORDERED: DEXTROSE 50% 25 GM / 50ML DISP.SYRIN. IV PRN (18:15)
[2017-07-31] MEDS: SEVELAMER CARBONATE 800 MG TABLET. PO SCH ×2 (18:30→18:49)
[2017-07-31] MEDS: DICLOFENAC SODIUM 1% TOPICAL GEL 100GM TUBE. TP SCH ×2 (18:30→20:58)
[2017-07-31] MEDS: INSULIN ASPART 300 UNITS/3 ML INSULN.PEN SQ SCH (18:30)
[2017-07-31] MEDS ORDERED: guaiFENesin/CODEINE 100mg/10mg 5 ML LIQUID PO PRN (18:45)
[2017-07-31] MEDS ORDERED: ALBUTEROL SULFATE 2.5 MG/3 ML NEBU. NEB PRN (18:45)
[2017-07-31] MEDS: WARFARIN 10 MG TABLET. PO SCH (18:49)
[2017-07-31] MEDS: CLOPIDOGREL BISULFATE 75 MG TABLET PO SCH (18:49)
[2017-07-31] MEDS: CHOLECALCIFEROL (VITAMIN D3) 1,000 UNIT TABLET PO SCH (18:50)
[2017-07-31] MEDS: FOLIC/VIT B COMP W-C (RENAL) TABLET. PO SCH (18:50)
[2017-07-31] MEDS: CETIRIZINE HCL 10 MG TABLET. PO SCH (18:50)
[2017-07-31] MEDS: CITALOPRAM 20 MG TABLET. PO SCH (18:50)
[2017-07-31] MEDS: ISOSORBIDE MONONITRATE ER 30 MG TAB.ER.24H PO SCH (18:50)
[2017-07-31] MEDS: SUCRALFATE 1 GM TABLET. PO SCH (18:50)
[2017-07-31] MEDS: LOSARTAN POTASSIUM 50 MG TABLET. PO SCH (18:50)
[2017-07-31] MEDS: CALCIUM ACETATE 667 MG CAPSULE PO SCH (18:50)
[2017-07-31] MEDS: MULTIVITAMIN with MINERAL TABLET. PO SCH (18:50)
[2017-07-31] MEDS: METOCLOPRAMIDE 5 MG TABLET. PO SCH ×2 (18:51→20:56)
[2017-07-31] MEDS: levETIRAcetam 500 MG TABLET PO SCH (20:55)
[2017-07-31] MEDS: MAGNESIUM OXIDE 400 MG TABLET PO SCH (20:55)
[2017-07-31] MEDS: DEXAMETHASONE 1 MG TABLET PO SCH (20:55)
[2017-07-31] MEDS: METOPROLOL TART IMMED RELEASE 50 MG TABLET. PO SCH (20:56)
[2017-07-31] MEDS ORDERED: traZODone 50 MG TABLET. PO SCH (21:00)
[2017-07-31] MEDS ORDERED: risperiDONE 0.25 MG TABLET. PO SCH (21:00)
[2017-07-31] MEDS ORDERED: FAMOTIDINE 20 MG TABLET. PO SCH (21:00)
[2017-07-31] MEDS ORDERED: rOPINIRole 0.25 MG TABLET. PO SCH (21:00)
[2017-07-31] MEDS ORDERED: ATORVASTATIN CALCIUM 40 MG TABLET. PO SCH (21:00)
[2017-07-31] MEDS ORDERED: MORPHINE ER 30 MG TABLET.ER PO SCH (21:00)
[2017-08-01 03:27] VITALS: BP 125/67
[2017-08-01 07:00] VITALS: BP 113/53
[2017-08-01] MEDS ORDERED: LEVOTHYROXINE 175 MCG TABLET PO SCH (07:00)
[2017-08-01] MEDS: CITALOPRAM 20 MG TABLET. PO SCH (08:50)
[2017-08-01] MEDS: MAGNESIUM OXIDE 400 MG TABLET PO SCH (08:51)
[2017-08-01] MEDS: METOPROLOL TART IMMED RELEASE 50 MG TABLET. PO SCH (08:51)
[2017-08-01] MEDS: SEVELAMER CARBONATE 800 MG TABLET. PO SCH ×3 (08:51→17:00)
[2017-08-01] MEDS: FOLIC/VIT B COMP W-C (RENAL) TABLET. PO SCH (08:51)
[2017-08-01] MEDS: CHOLECALCIFEROL (VITAMIN D3) 1,000 UNIT TABLET PO SCH (08:51)
[2017-08-01] MEDS: CLOPIDOGREL BISULFATE 75 MG TABLET PO SCH (08:52)
[2017-08-01] MEDS: ISOSORBIDE MONONITRATE ER 30 MG TAB.ER.24H PO SCH (08:52)
[2017-08-01] MEDS: MULTIVITAMIN with MINERAL TABLET. PO SCH (08:52)
[2017-08-01] MEDS: SUCRALFATE 1 GM TABLET. PO SCH ×2 (08:52→17:11)
[2017-08-01] MEDS: CALCIUM ACETATE 667 MG CAPSULE PO SCH ×3 (08:52→17:11)
[2017-08-01] MEDS: LOSARTAN POTASSIUM 50 MG TABLET. PO SCH (08:52)
[2017-08-01] MEDS: METOCLOPRAMIDE 5 MG TABLET. PO SCH ×3 (08:55→16:30)
[2017-08-01] MEDS: levETIRAcetam 500 MG TABLET PO SCH (08:55)
[2017-08-01] MEDS: CETIRIZINE HCL 10 MG TABLET. PO SCH (08:55)
[2017-08-01] MEDS: DEXAMETHASONE 1 MG TABLET PO SCH (08:56)
[2017-08-01] MEDS: DICLOFENAC SODIUM 1% TOPICAL GEL 100GM TUBE. TP SCH ×3 (08:58→17:00)
[2017-08-01] MEDS ORDERED: HYDROcodone/APAP 10/325 1 TAB TABLET PO SCH (09:00)
[2017-08-01] MEDS ORDERED: ERGOCALCIFEROL (VITAMIN D2) 50,000 UNIT CAPSULE. PO SCH (09:00)
[2017-08-01] MEDS: INSULIN ASPART 300 UNITS/3 ML INSULN.PEN SQ SCH ×3 (09:15→17:00)
--- NOTE | 2017-08-01 10:53 | PDOC ---
CARDIO Progress Notes Date and Time Time of Evaluation 1015 Vitals Vitals Vital Signs Date Time Temp Pulse Resp B/P (MAP) Pulse Ox O2 Delivery O2 Flow Rate FiO2 08/01/17 08:52 78 113/53 08/01/17 07:00 97.9 19 95 Room Air 97.9 07/31/17 22:22 2.0 Weight Weight [ ] Input and Output Intake and Output Intake and Output 08/01/17 07:00 Intake Total 1720 ml Output Total 425 ml Balance 1295 ml Intake Oral 1720 ml Output Urine Total 425 ml Laboratory Labs Laboratory Tests Test 07/31/17 16:11 07/31/17 20:57 08/01/17 07:45 Glucose (Fingerstick) 204 mg/dL (70-99) 264 mg/dL (70-99) 243 mg/dL (70-99) JW SILVERMAN APRN Aug 01, 2017 10:52
[2017-08-01 11:00] VITALS: BP 128/64
--- NOTE | 2017-08-01 14:47 | PDOC2 ---
CONSULT Date of Consult Date of Consult DATE: 08/01/17 TIME: 14:42 Reason for Consult Reason for Consult: ESRD Referring Physician Referring Physician: Dr Kaur Identification/Chief Complaint Chief Complaint CAD Problems: Source Source: Chart review, Patient History of Present Illness Reason for Visit: as dictated Past Medical History Cardiovascular: AFIB, CAD, CHF, HTN, NE, Hyperlipidemia, Other Pulmonary: Asthma, Other CENTRAL NERVOUS SYSTEM: CVA, Dementia, Periperal neuropathy, Seizure, TIA, Vertigo GI: Diverticulosis, Hemorrhoids Heme/Onc: Anemia NOS Hepatobiliary: No pertinent hx Psych: Anxiety, Depression Infectious disease: No pertinent hx Renal/: Chronic renal insuff Endocrine: Diabetes, Hypothyroidism Past Surgical History Past Surgical History: Cataract Removal, Total knee replacement, Other Family History Family History: Hypertension Social History ALCOHOL: none Drugs: None Lives: with Family Current Medications Current Medications Current Medications Iodixanol (Visipaque 320) 100 ml STK-MED ONCE .ROUTE ; Start 07/31/17 at 07:16 ; Stop 07/31/17 at 07:17; Status DC Heparin Sodium/ Sodium Chloride 1,000 ml @ As Directed STK-MED ONCE .ROUTE ; Start 07/31/17 at 07:16; Stop 07/31/17 at 07:17; Status DC Lidocaine HCl 20 ml STK-MED ONCE .ROUTE ; Start 07/31/17 at 07:16; Stop at 07:17; Status DC Sodium Chloride 1,000 ml @ 60 mls/hr [id number] IV ; Start 07/31/17 at 08:00; Stop 07/31/17 at 18:15; Status DC Prednisone (Prednisone) 50 mg 1X ONCE PO Last administered on 07/31/17 08:00 ; Start 07/31/17 at 08:00; Stop 07/31/17 at 08:01; Status DC Diphenhydramine HCl (Benadryl) 25 mg 1X ONCE PO Last administered on 08:00; Start 07/31/17 at 08:00; Stop 07/31/17 at 08:01; Status DC Famotidine (Pepcid) 20 mg 1X ONCE PO Last administered on 07/31/17 08:00; Start 07/31/17 at 08:00; Stop 07/31/17 at 08:01; Status DC Diphenhydramine HCl (Benadryl) 25 mg STK-MED ONCE PO ; Start 07/31/17 at 07:51 ; Stop 07/31/17 at 07:52; Status DC Famotidine (Pepcid) 20 mg STK-MED ONCE .ROUTE ; Start 07/31/17 at 07:51; Stop 07/31/17 at 07:52; Status DC Methylprednisolone Sodium Succinate (SOLU-Medrol 125MG VIAL) 125 mg 1X ONCE IV Last administered on 07/31/17 13:45; Start 07/31/17 at 13:45; Stop at 13:50; Status DC Diphenhydramine HCl (Benadryl) 25 mg 1X ONCE IVP Last administered on 13:45; Start 07/31/17 at 13:45; Stop 07/31/17 at 13:50; Status DC Iodixanol (Visipaque 320) 100 ml STK-MED ONCE .ROUTE ; Start 07/31/17 at 14:32 ; Stop 07/31/17 at 14:33; Status DC Lidocaine HCl 20 ml STK-MED ONCE .ROUTE ; Start 07/31/17 at 14:32; Stop at 14:33; Status DC Heparin Sodium/ Sodium Chloride 500 ml @ As Directed STK-MED ONCE .ROUTE ; Start 07/31/17 at 14:32; Stop 07/31/17 at 14:33; Status DC Iodixanol (Visipaque 320) 100 ml STK-MED ONCE .ROUTE ; Start 07/31/17 at 14:35 ; Stop 07/31/17 at 14:36; Status DC Fentanyl Citrate (Fentanyl 2ml Vial) 100 mcg STK-MED ONCE .ROUTE ; Start at 14:52; Stop 07/31/17 at 14:53; Status DC Midazolam HCl (Versed) 2 mg STK-MED ONCE .ROUTE ; Start 07/31/17 at 14:52; Stop 07/31/17 at 14:53; Status DC Heparin Sodium/ Sodium Chloride 500 ml @ As Directed STK-MED ONCE .ROUTE ; Start 07/31/17 at 15:10; Stop 07/31/17 at 15:11; Status DC Heparin Sodium/ Sodium Chloride 1,000 unit 1X ONCE IART Last administered on 07/31/17 15:28; Start 07/31/17 at 15:15; Stop 07/31/17 at 15:16; Status DC Midazolam HCl (Versed) 2 mg 1X ONCE IV Last administered on 07/31/17 15:31; Start 07/31/17 at 15:15; Stop 07/31/17 at 15:16; Status DC Fentanyl Citrate (Fentanyl 2ml Vial) 100 mcg 1X ONCE IV Last administered on 07/31/17 15:31; Start 07/31/17 at 15:15; Stop 07/31/17 at 15:16; Status DC Iodixanol (Visipaque 320) 100 ml 1X ONCE IART Last administered on 07/31/17 15:32; Start 07/31/17 at 15:15; Stop 07/31/17 at 15:16; Status DC Lidocaine HCl 20 ml 1X ONCE IJ Last administered on 07/31/17 15:32; Start 07/31/17 at 15:15; Stop 07/31/17 at 15:16; Status DC Acetaminophen (Tylenol) 650 mg PRN Q6HRS PRN PO FEVER; Start 07/31/17 at 18:00 Alprazolam (Xanax) 0.25 mg PRN Q6HRS PRN PO ANXIETY / AGITATION; Start at 18:00 Bisacodyl (Dulcolax Tab) 10 mg PRN DAILY PRN PO CONSTIPATION; Start 07/31/17 at 18:00 Calcium Carbonate/ Glycine (Oscal) 1,000 mg PRN Q2HR PRN PO HEARTBURN / GAS; Start 07/31/17 at 18:00 Citalopram Hydrobromide (CeleXA) 20 mg DAILY PO Last administered on 08:50; Start 07/31/17 at 19:00 Darbepoetin Jace (Aranesp) 40 mcg Tu SQ ; Start 08/07/17 at 21:00 Diclofenac Sodium (Voltaren) 1 ayaz QID TP ; Start 07/31/17 at 18:30 Ergocalciferol (Vitamin D2) 50,000 unit QTU PO Last administered on 08/01/17 08:51; Start 08/01/17 at 09:00 Famotidine (Pepcid) 20 mg HS PO Last administered on 07/31/17 20:55; Start 07/31/17 at 21:00 Vitamin B Complex/ Vitamin C (Zion-Jimmy) 1 tab DAILY PO Last administered on 08:51; Start 07/31/17 at 18:30 Acetaminophen/ Hydrocodone Bitart (Lortab 10/325) 1 tab DAILY PO ; Start at 09:00 Isosorbide Mononitrate (Imdur) 30 mg DAILY PO Last administered on 08/01/17 08:52; Start 07/31/17 at 18:30 Levetiracetam (Keppra) 1,000 mg BID PO Last administered on 08/01/17 08:55; Start 07/31/17 at 21:00 Levothyroxine Sodium (Synthroid) 175 mcg DAILY07 PO Last administered on 06:20; Start 08/01/17 at 07:00 Meclizine HCl (Antivert) 12.5 mg PRN TID PRN PO DIZZINESS; Start 07/31/17 at 18:00 Metoclopramide HCl (Reglan) 5 mg QIDACHS PO Last administered on 08/01/17 12: 30; Start 07/31/17 at 18:15 Metoprolol Tartrate (Lopressor) 50 mg BID PO Last administered on 08/01/17 08 :51; Start 07/31/17 at 21:00 Midodrine (Proamatine) 5 mg QMWF PO ; Start 08/01/17 at 16:00 Morphine Sulfate (Ms Contin) 30 mg HS PO Last administered on 07/31/17 20:56 ; Start 07/31/17 at 21:00 Nitroglycerin (Nitrostat) 0.4 mg PRN Q5MIN PRN SL CHEST PAIN; Start 07/31/17 at 18:00 Ondansetron HCl (Zofran Odt) 4 mg PRN Q6HRS PRN PO NAUSEA/VOMITING; Start at 18:00 Sevelamer Carbonate (Renvela) 1,600 mg TIDWMEALS PO Last administered on 12:30; Start 07/31/17 at 18:30 Sucralfate (Carafate) 1 gm BIDBFRMEAL PO Last administered on 08/01/17 08:52 ; Start 07/31/17 at 18:30 Trazodone HCl (Desyrel) 50 mg QHS PO Last administered on 07/31/17 20:56; Start 07/31/17 at 21:00 Non-Formulary Medication 1 puff Q6HRS PRN INH SHORTNESS OF BREATH; Start 07/31 at 18:00; Stop 07/31/17 at 18:46; Status DC Atorvastatin Calcium (Lipitor) 80 mg QHS PO Last administered on 07/31/17 20: 55; Start 07/31/17 at 21:00 Calcium Acetate (Phoslo) 667 mg TIDWMEALS PO Last administered on 08/01/17 12 :30; Start 07/31/17 at 18:30 Vitamin D (Vitamin D3) 2,000 unit DAILY PO Last administered on 08/01/17 08: 51; Start 07/31/17 at 19:00 Guaifenesin/ Codeine Phosphate (Robitussin Ac) 5 ml PRN Q6HRS PRN PO COUGH; Start 07/31/17 at 18:45 Dexamethasone (Decadron) 0.5 mg BID PO Last administered on 08/01/17 08:56; Start 07/31/17 at 21:00 Cetirizine HCl (ZyrTEC) 10 mg DAILY PO Last administered on 08/01/17 08:55; Start 07/31/17 at 19:00 Losartan Potassium (Cozaar) 100 mg DAILY PO Last administered on 08/01/17 08: 52; Start 07/31/17 at 18:30 Magnesium Oxide (Magnesium Oxide) 400 mg BID PO Last administered on 08:51; Start 07/31/17 at 21:00 Multivitamins (Thera M Plus) 1 tab DAILY PO Last administered on 08/01/17 08: 52; Start 07/31/17 at 19:00 Risperidone (RisperDAL) 0.5 mg QHS PO Last administered on 07/31/17 20:56; Start 07/31/17 at 21:00 Ropinirole HCl (Requip) 0.25 mg QHS PO Last administered on 07/31/17 20:55; Start 07/31/17 at 21:00 Insulin Aspart (NovoLOG) 0-5 UNITS TIDWMEALS SQ Last administered on t 12:37; Start 07/31/17 at 18:30 Dextrose (Dextrose 50%-Water Syringe) 12.5 gm PRN Q15MIN PRN IV SEE COMMENTS; Start 07/31/17 at 18:15 Clopidogrel Bisulfate (Plavix) 75 mg DAILY07 PO Last administered on 08:52; Start 07/31/17 at 18:30 Warfarin Sodium (Coumadin) 10 mg DAILY16 PO Last administered on 07/31/17t 18: 49; Start 07/31/17 at 19:00 Albuterol Sulfate (Ventolin Neb Soln) 2.5 mg PRN Q6HRS PRN NEB SHORTNESS OF BREATH; Start 07/31/17 at 18:45 Warfarin Sodium (Coumadin Per Physician) 1 each PRN DAILY PRN MC SEE COMMENTS; Start 08/01/17 at 11:00 Active Scripts Active Metoprolol Tartrate 50 Mg Tablet 50 Mg PO BID Synthroid (Levothyroxine Sodium) 175 Mcg Tablet 175 Mcg PO DAILY07 Isosorbide Mononitrate Er (Isosorbide Mononitrate) 30 Mg Tab.er.24h 30 Mg PO DAILY Reported Zofran Odt (Ondansetron) 4 Mg Tab.rapdis 4 Mg PO PRN Q6HRS PRN Multivitamins (Multivitamin) 1 Each Tablet 1 Tab PO DAILY Reglan (Metoclopramide Hcl) 10 Mg Tablet 5 Mg PO QIDACHS Calcium Acetate 667 Mg Tablet 667 Mg PO TIDWMEALS Dulcolax (Bisacodyl) 5 Mg Tablet.dr 10 Mg PO PRN DAILY PRN Alprazolam 0.25 Mg Tablet 0.25 Mg PO PRN Q6HRS PRN Tylenol (Acetaminophen) 325 Mg Tablet 650 Mg PO PRN Q6HRS PRN Ms Contin (Morphine Sulfate) 30 Mg Tablet.er 30 Mg PO HS [place] 10-325 Tablet (Acetaminophen/Hydrocodone Bitart) 1 Each Tablet 1 Tab PO DAILY Vitamin D (Cholecalciferol (Vitamin D3)) 2,000 Unit Tablet 2,000 Unit PO DAILY Magnesium (Magnesium Oxide) 500 Mg Capsule 500 Mg PO BID Voltaren (Diclofenac Sodium) 100 Gm Gel..gram. 1 Gm TP QID Renvela (Sevelamer Carbonate) 800 Mg Tablet 2 Tab PO TID Nephro-Jimmy Tablet (Folic Acid/Vitamin B Comp W-C) 0.8 Mg Tablet 1 Tab PO DAILY Famotidine 20 Mg Tablet 20 Mg PO HS Dexamethasone 0.5 Mg/5 Ml Elixir 0.5 Mg PO BID Aranesp Syringe (Darbepoetin Jace In Polysorbat) 40 Mcg/0.4 Ml Disp.syrin 40 Mcg SQ QTU Calcium Carbonate 500 Mg Tablet 1,000 Mg PO PRN Q2HR PRN Midodrine Hcl 5 Mg Tablet 5 Mg PO QMWF Claritin (Loratadine) 10 Mg Tablet 10 Mg PO DAILY Virtussin AC Liquid (Codeine Phosphate/Guaifenesin) 118 Ml Liquid 118 Ml PO PRN PRN Coumadin (Warfarin Sodium) 10 Mg Tablet 1 Tab PO DAILY Losartan Potassium 100 Mg Tablet 100 Mg PO DAILY Levetiracetam 500 Mg Tablet 1,000 Mg PO BID Meclizine Hcl 12.5 Mg Tablet 1 Tab PO PRN TID PRN Ventolin Hfa Inhaler (Albuterol Sulfate) 18 Gm Hfa.aer.ad 1 Puff INH Q6HRS PRN Ropinirole Hcl 0.25 Mg Tablet 0.25 Mg PO Citalopram Hbr (Citalopram Hydrobromide) 20 Mg Tablet 1 Tab PO DAILY Trazodone Hcl 50 Mg Tablet 0.5-1 Tab PO QHS Risperidone 0.5 Mg Tablet 1 Tab PO QHS Carafate (Sucralfate) 1 Gm Tablet 1 Tab PO BID Nitrostat (Nitroglycerin) 0.4 Mg Tab.subl 0.4 Mg SL PRN Q5MIN PRN Clopidogrel (Clopidogrel Bisulfate) 75 Mg Tablet 75 Mg PO DAILY07 Vitamin D2 (Ergocalciferol (Vitamin D2)) 50,000 Unit Capsule 50,000 Unit PO QTU weekly on Sunday Atorvastatin Calcium 80 Mg Tablet 80 Mg PO HS Allergies Allergies: Coded Allergies: iodine (Verified Allergy, Severe, THROAT SWELLING, 04/25/17) lisinopril (Verified Allergy, Severe, 04/25/17) Fish Containing Products (Verified Allergy, Intermediate, 04/25/17) Penicillins (Verified Allergy, Intermediate, SEE COMMENT, 04/25/17) Tolerates meropenem piperacillin (Verified Allergy, Intermediate, Hives, 04/25/17) Tolerates meropenem tazobactam (Verified Allergy, Intermediate, 04/25/17) ROS Review of System GEN: no Fevers no Chills EYES: no Visual Complaints ENT: no EN Drainage no Hearing deficiets CVS: no Orthopnea no CP RESP: no SOB no MCCLAIN GI: no Nausea no Vomiting : no Dysuria no Urgency HEME: no easy bruising no Palp Ly Nodes NEURO no Focal Weakness no Sz PSYCH: no Suicidal Ideation no Depression SKIN: no Rashes ENDO: no Polyuria or Polydipsia no Hot/Cold Intolerance MU SK: occ Arthraigia no Myalgia Physical Exam Physical Exam General Appearance: Awake Alert Oriented x 3 In no Distress Eyes: VIsion Unchanged Conjunctiva Normal EN: No EN Drainage Mucous Memb. moist Neck: no JVD no JVP Supple no Thyromegaly CVS: S1 S2 + Murmur No Gallop No Rub tr Edema Resp: no Rales no Rhonchi no Acc. Muscle use GI: BAS +ve NO Bruit Non Tender Non Distended : no CVA tenderness; no Suprapubic Tenderness SKIN: no Rashes Breast Exam deferred Mu.Sk: Adequate ROM no Muscle Atrophy; Left BKA Heme: Unable to palpate Obvious LAD no Splenomegaly NEURO: Good Strength and Tone Cranial Nerves II - XII grossly intact Psych: not Depressed no Active hallucination Vital Signs Vital Signs Date Time Temp Pulse Resp B/P (MAP) Pulse Ox O2 Delivery O2 Flow Rate FiO2 08/01/17 11:00 97.8 79 19 128/64 (85) 97 Room Air 97.8 07/31/17 22:22 2.0 Assessment & Plan ESRD: Dialysis as below F 180 NR 3.5 Hrs 3 K 2.5 Ca 140 Na 30 HC03 Qb 350 + Qd 500+ Heparin 0 Units Uf 3-4 Kgs or to dry weight as tolerated May give 25-50 gms of 25% Albumin if needed to maintain Hemodynamic stability Treatment plan reviewed and discussed with manager private Anemia: ct Epogen as OP. Transfuse as needed. HTN: Current BP meds reviewed. See orders for changes. fluid overload - UF with HD to EDW and reval CAD - Stents were occluded and will be going to [facility] where is being considered for zion Txp Discussed Plan of Care and prognosis etc. at length with family. Labs Labs Laboratory Tests Test 07/31/17 08:25 07/31/17 16:11 07/31/17 20:57 08/01/17 07:45 White Blood Count 4.1 x10^3/uL (4.0-11.0) Red Blood Count 3.71 x10^6/uL (4.30-5.70) Hemoglobin 10.9 g/dL (13.0-17.5) Hematocrit 33.6 % (39.0-53.0) Mean Corpuscular Volume 90 fL (79-100) Mean Corpuscular Hemoglobin 29 pg (25-35) Mean Corpuscular Hemoglobin Concent 32 g/dL (31-37) Red Cell Distribution Width 14.7 % (11.5-14.5) Platelet Count 160 x10^3/uL (140-400) Prothrombin Time 13.6 SEC (11.7-14.0) Prothromb Time International Ratio 1.1 (0.8-1.1) Sodium Level 142 mmol/L (136-145) Potassium Level 3.9 mmol/L (3.5-5.1) Chloride Level 101 mmol/L (98-107) Carbon Dioxide Level 30 mmol/L (21-32) Anion Gap 11 (6-14) Blood Urea Nitrogen 56 mg/dL (8-26) Creatinine 6.1 mg/dL (0.7-1.3) Estimated GFR (Cockcroft-Gault) 11.8 Glucose Level 166 mg/dL (70-99) Calcium Level 8.1 mg/dL (8.5-10.1) Glucose (Fingerstick) 204 mg/dL (70-99) 264 mg/dL (70-99) 243 mg/dL (70-99) Test 08/01/17 10:51 Glucose (Fingerstick) 226 mg/dL (70-99) Laboratory Tests Test 07/31/17 16:11 07/31/17 20:57 08/01/17 07:45 08/01/17 10:51 Glucose (Fingerstick) 204 mg/dL (70-99) 264 mg/dL (70-99) 243 mg/dL (70-99) 226 mg/dL (70-99) MYRON LIANG MD Aug 01, 2017 14:47
[2017-08-01 15:00] VITALS: BP 120/64
--- NOTE | 2017-08-01 15:38 | PDOC3 ---
JW SILVERMAN CAN MAKER 08/01/17 1538: Discharge Summary Visit Information Date of Admission: Jul 31, 2017 Date of Discharge: Aug 01, 2017 Admitting Diagnosis: Chest pain Admitting Diagnosis Comment: CAD Final Diagnosis 1. CAD 2. Chronic Diastolic Heart Failure 3. Hypertension 4. Hyperlipidemia 5. Diabetes 6. Anemia of chronic disease 7. ESRD on HD Brief Hospital Course Allergies Allergies Coded Allergies Type Severity Reaction Last Updated Verified iodine Allergy Severe THROAT SWELLING 04/25/17 Yes lisinopril Allergy Severe 04/25/17 Yes Fish Containing Products Allergy Intermediate 04/25/17 Yes Penicillins Allergy Intermediate SEE COMMENT 04/25/17 Yes piperacillin Allergy Intermediate Hives 04/25/17 Yes tazobactam Allergy Intermediate 04/25/17 Yes Vital Signs Vital Signs Date Time Temp Pulse Resp B/P (MAP) Pulse Ox O2 Delivery O2 Flow Rate FiO2 08/01/17 11:00 97.8 79 19 128/64 (85) 97 Room Air 97.8 07/31/17 22:22 2.0 Lab Results Laboratory Tests Test 07/31/17 08:25 07/31/17 16:11 07/31/17 20:57 08/01/17 07:45 White Blood Count 4.1 x10^3/uL (4.0-11.0) Red Blood Count 3.71 x10^6/uL (4.30-5.70) Hemoglobin 10.9 g/dL (13.0-17.5) Hematocrit 33.6 % (39.0-53.0) Mean Corpuscular Volume 90 fL (79-100) Mean Corpuscular Hemoglobin 29 pg (25-35) Mean Corpuscular Hemoglobin Concent 32 g/dL (31-37) Red Cell Distribution Width 14.7 % (11.5-14.5) Platelet Count 160 x10^3/uL (140-400) Prothrombin Time 13.6 SEC (11.7-14.0) Prothromb Time International Ratio 1.1 (0.8-1.1) Sodium Level 142 mmol/L (136-145) Potassium Level 3.9 mmol/L (3.5-5.1) Chloride Level 101 mmol/L (98-107) Carbon Dioxide Level 30 mmol/L (21-32) Anion Gap 11 (6-14) Blood Urea Nitrogen 56 mg/dL (8-26) Creatinine 6.1 mg/dL (0.7-1.3) Estimated GFR (Cockcroft-Gault) 11.8 Glucose Level 166 mg/dL (70-99) Calcium Level 8.1 mg/dL (8.5-10.1) Glucose (Fingerstick) 204 mg/dL (70-99) 264 mg/dL (70-99) 243 mg/dL (70-99) Test 08/01/17 10:51 Glucose (Fingerstick) 226 mg/dL (70-99) Laboratory Tests Test 07/31/17 16:11 07/31/17 20:57 08/01/17 07:45 08/01/17 10:51 Glucose (Fingerstick) 204 mg/dL (70-99) 264 mg/dL (70-99) 243 mg/dL (70-99) 226 mg/dL (70-99) Brief Hospital Course Mr. Goel is a 52 old male, with a history of CAD s/p multiple stents, who presented to the office with complaints of chest pain. Given new onset of angina and history of multiple stents, cardiac cath was recommended. Coronary angiogram revealed severe three vessel CAD with occlusion of previously placed distal LCx stents in a MERCHANDISER vessel, likely due to poor outflow. LV systolic function was normal with an EF 55%. Patient tolerated procedure well. Was monitored overnight without complications. Right groin arteriotomy site soft, clean, and dry. No erythema, ecchymosis, or hematoma present. Neurovascular status intact. Lungs CTA. Discharge instructions reviewed; patient verbalized an understanding. Also has a history of ESRD on HD. Had dialysis today prior to discharge. Will continue aggressive medical therapy including Plavix and warfarin and consider outpatient referral to [facility] for recanalization of MERCHANDISER. Discharge Information Condition at Discharge: Improved Follow Up: Weeks (4) Disposition/Orders: D/C to Home Scheduled Atorvastatin Calcium (Atorvastatin Calcium), 80 MG PO HS, (Reported) Calcium Acetate (Calcium Acetate), 667 MG PO TIDWMEALS, (Reported) Cholecalciferol (Vitamin D3) (Vitamin D), 2,000 UNIT PO DAILY, (Reported) Citalopram Hydrobromide (Citalopram Hbr), 1 TAB PO DAILY, (Reported) Clopidogrel Bisulfate (Clopidogrel), 75 MG PO DAILY07, (Reported) Darbepoetin Jace In Polysorbat (Aranesp Syringe), 40 MCG SQ QTU, (Reported) Dexamethasone (Dexamethasone), 0.5 MG PO BID, (Reported) Diclofenac Sodium (Voltaren), 1 GM TP QID, (Reported) Ergocalciferol (Vitamin D2) (Vitamin D2), 50,000 UNIT PO QTU, (Reported) Famotidine (Famotidine), 20 MG PO HS, (Reported) Folic Acid/Vitamin B Comp W-C (Nephro-Jimmy Tablet), 1 TAB PO DAILY, (Reported) Hydrocodone/Apap 10-325 (Jennings 10-325 Tablet), 1 TAB PO DAILY, (Reported) Isosorbide Mononitrate (Isosorbide Mononitrate Er), 30 MG PO DAILY Levetiracetam (Levetiracetam), 1,000 MG PO BID, (Reported) Levothyroxine Sodium (Synthroid), 175 MCG PO DAILY07 Loratadine (Claritin), 10 MG PO DAILY, (Reported) Losartan Potassium (Losartan Potassium), 100 MG PO DAILY, (Reported) Magnesium Oxide (Magnesium), 500 MG PO BID, (Reported) Metoclopramide Hcl (Reglan), 5 MG PO QIDACHS, (Reported) Metoprolol Tartrate (Metoprolol Tartrate), 50 MG PO BID Midodrine Hcl (Midodrine Hcl), 5 MG PO QMWF, (Reported) Morphine Sulfate Er (Ms Contin), 30 MG PO HS, (Reported) Multivitamin (Multivitamins), 1 TAB PO DAILY, (Reported) Risperidone (Risperidone), 1 TAB PO QHS, (Reported) Sevelamer Carbonate (Renvela), 2 TAB PO TID, (Reported) Sucralfate (Carafate), 1 TAB PO BID, (Reported) Trazodone Hcl (Trazodone Hcl), 0.5-1 TAB PO QHS, (Reported) Warfarin Sodium (Coumadin), 1 TAB PO DAILY, (Reported) Scheduled PRN Acetaminophen (Tylenol), 650 MG PO PRN Q6HRS PRN for FEVER, (Reported) Albuterol Sulfate (Ventolin Hfa Inhaler), 1 PUFF INH Q6HRS PRN for SHORTNESS OF BREATH, (Reported) Alprazolam (Alprazolam), 0.25 MG PO PRN Q6HRS PRN for ANXIETY / AGITATION, ( Reported) Bisacodyl (Dulcolax), 10 MG PO PRN DAILY PRN for CONSTIPATION, (Reported) Calcium Carbonate (Calcium Carbonate), 1,000 MG PO PRN Q2HR PRN for HEARTBURN / GAS, (Reported) Codeine Phosphate/Guaifenesin (Virtussin AC Liquid), 118 ML PO PRN PRN for COUGH , (Reported) Meclizine Hcl (Meclizine Hcl), 1 TAB PO PRN TID PRN for DIZZINESS, (Reported) Nitroglycerin (Nitrostat), 0.4 MG SL PRN Q5MIN PRN for CHEST PAIN, (Reported) Ondansetron (Zofran Odt), 4 MG PO PRN Q6HRS PRN for NAUSEA/VOMITING, (Reported) Miscellaneous Medications Ropinirole Hcl (Ropinirole Hcl), 0.25 MG PO, (Reported) Discontinued Medications Alprazolam (Alprazolam), 1 TAB PO for ANXIETY / AGITATION, (Reported) Famotidine (Famotidine), 20 MG PO HS, (Reported) Metoprolol Tartrate (Metoprolol Tartrate), 50 MG PO DAILY, (Reported) Warfarin Sodium (Coumadin), 1 TAB PO DAILY, (Reported) Patient Instructions Patient Instructions GENERAL INSTRUCTIONS: 1. Your dressing should be removed prior to leaving the hospital. 2. It is OK to shower the day after your procedure. 3. If you received stents, be sure to carry your stent information card with you in your wallet/purse at all times. 4. Call the office immediately at [phone] if you notice any fever or if there is redness, worsening tenderness/pain, increased bruising, or drainage from the puncture site. 5. Should you have bleeding from the site, lie down immediately & put pressure on the site. The pressure should be hard enough to stop the bleeding. Have the nearest person call 911. DO NOT try to drive to the ER with active bleeding. 6. If you notice a change in color, coolness to touch, or loss of feeling in the affected extremity, come to the emergency room. Please have someone drive you or call 911 if no one is available. DO NOT drive yourself. 7. If you normally take glucophage (metformin), please do not take this medicine for 48 hours following your procedure. 8. DO NOT STOP TAKING YOUR PLAVIX OR ASPIRIN UNLESS IT IS CLEARED BY A TIE HACKER OF YOUR DATAPOWER CONSULTANT AT OUR OFFICE. 9. QUIT SMOKING: the [place] [employer], [place] [employer], & [place] [employer] have cessation resources available on their websites 10. Please have someone available to drive you home from the hospital as you may be limited by sedation medications given during the procedure. Femoral (Groin) access: 1. Do no lifting, pushing, pulling, bending, stooping, or recurrent stair climbing for 3 days following your procedure. 2. Once past the first 3 days, do not do any HEAVY exertion or lifting for one week following the procedure. No gym workouts, running, lifting greater than a gallon of milk, etc 3. Do not submerge in bath or pool for one week. OK to drive 3 days following your procedure, but if going long distance, do not go alone & take hourly breaks to get out of car and walk around. Radial Artery (Wrist) access: 1. No pushing, pulling, lifting, typing, or anything that requires repetitive use/movement of the affected wrist for 3 days following your procedure. 2. OK to drive the day following your procedure. (This is because of effects of sedating medications.) Call the office at [phone] for any questions or concerns. ROB LOOMIS MD 08/01/17 9428: Discharge Summary Brief Hospital Course Brief Hospital Course Patient seen and examined. Agree with above nurse practitioner note. Repeat coronary angiography revealed occlusion of his previously placed left circumflex stents. Discussed his case with Dr. White and nephrology. Overall he is likely a poor candidate for transplantation for his end-stage renal disease but we will attempt complete revascularization to allow him to have the best shot at qualifying for transportation and will refer him to Dr. Trevizo at [facility] for consideration of MERCHANDISER recanalization via laser atherectomy and repeat stenting as necessary. Discharge Information Scheduled Atorvastatin Calcium (Atorvastatin Calcium), 80 MG PO HS, (Reported) Calcium Acetate (Calcium Acetate), 667 MG PO TIDWMEALS, (Reported) Cholecalciferol (Vitamin D3) (Vitamin D), 2,000 UNIT PO DAILY, (Reported) Citalopram Hydrobromide (Citalopram Hbr), 1 TAB PO DAILY, (Reported) Clopidogrel Bisulfate (Clopidogrel), 75 MG PO DAILY07, (Reported) Darbepoetin Jace In Polysorbat (Aranesp Syringe), 40 MCG SQ QTU, (Reported) Dexamethasone (Dexamethasone), 0.5 MG PO BID, (Reported) Diclofenac Sodium (Voltaren), 1 GM TP QID, (Reported) Ergocalciferol (Vitamin D2) (Vitamin D2), 50,000 UNIT PO QTU, (Reported) Famotidine (Famotidine), 20 MG PO HS, (Reported) Folic Acid/Vitamin B Comp W-C (Nephro-Jimmy Tablet), 1 TAB PO DAILY, (Reported) Hydrocodone/Apap 10-325 (Jennings 10-325 Tablet), 1 TAB PO DAILY, (Reported) Isosorbide Mononitrate (Isosorbide Mononitrate Er), 30 MG PO DAILY Levetiracetam (Levetiracetam), 1,000 MG PO BID, (Reported) Levothyroxine Sodium (Synthroid), 175 MCG PO DAILY07 Loratadine (Claritin), 10 MG PO DAILY, (Reported) Losartan Potassium (Losartan Potassium), 100 MG PO DAILY, (Reported) Magnesium Oxide (Magnesium), 500 MG PO BID, (Reported) Metoclopramide Hcl (Reglan), 5 MG PO QIDACHS, (Reported) Metoprolol Tartrate (Metoprolol Tartrate), 50 MG PO BID Midodrine Hcl (Midodrine Hcl), 5 MG PO QMWF, (Reported) Morphine Sulfate Er (Ms Contin), 30 MG PO HS, (Reported) Multivitamin (Multivitamins), 1 TAB PO DAILY, (Reported) Risperidone (Risperidone), 1 TAB PO QHS, (Reported) Sevelamer Carbonate (Renvela), 2 TAB PO TID, (Reported) Sucralfate (Carafate), 1 TAB PO BID, (Reported) Trazodone Hcl (Trazodone Hcl), 0.5-1 TAB PO QHS, (Reported) Warfarin Sodium (Coumadin), 1 TAB PO DAILY, (Reported) Scheduled PRN Acetaminophen (Tylenol), 650 MG PO PRN Q6HRS PRN for FEVER, (Reported) Albuterol Sulfate (Ventolin Hfa Inhaler), 1 PUFF INH Q6HRS PRN for SHORTNESS OF BREATH, (Reported) Alprazolam (Alprazolam), 0.25 MG PO PRN Q6HRS PRN for ANXIETY / AGITATION, ( Reported) Bisacodyl (Dulcolax), 10 MG PO PRN DAILY PRN for CONSTIPATION, (Reported) Calcium Carbonate (Calcium Carbonate), 1,000 MG PO PRN Q2HR PRN for HEARTBURN / GAS, (Reported) Codeine Phosphate/Guaifenesin (Virtussin AC Liquid), 118 ML PO PRN PRN for COUGH , (Reported) Meclizine Hcl (Meclizine Hcl), 1 TAB PO PRN TID PRN for DIZZINESS, (Reported) Nitroglycerin (Nitrostat), 0.4 MG SL PRN Q5MIN PRN for CHEST PAIN, (Reported) Ondansetron (Zofran Odt), 4 MG PO PRN Q6HRS PRN for NAUSEA/VOMITING, (Reported) Miscellaneous Medications Ropinirole Hcl (Ropinirole Hcl), 0.25 MG PO, (Reported) Discontinued Medications Alprazolam (Alprazolam), 1 TAB PO for ANXIETY / AGITATION, (Reported) Famotidine (Famotidine), 20 MG PO HS, (Reported) Metoprolol Tartrate (Metoprolol Tartrate), 50 MG PO DAILY, (Reported) Warfarin Sodium (Coumadin), 1 TAB PO DAILY, (Reported) JW SILVERMAN APRN Aug 01, 2017 15:38 ROB LOOMIS MD Aug 01, 2017 18:56
[2017-08-01] MEDS: WARFARIN 10 MG TABLET. PO SCH (16:00)
[2017-08-01] MEDS ORDERED: MIDODRINE 5 MG TABLET PO SCH (16:00)
[2017-08-01] MEDS ORDERED: IV NORMAL SALINE 1000ML BAG 1,000 ML IV PRN ×2 (16:53)
[2017-08-01] MEDS ORDERED: DIALYSIS PATIENT. MC PRN (17:00)
[2017-08-01] MEDS ORDERED: diphenhydrAMINE 50 MG/ML VIAL IV PRN ×2 (17:00)
[2017-08-01] MEDS ORDERED: ALBUMIN HUMAN 25% 200 ML IV PRN (17:00)
[2017-08-01 19:00] VITALS: BP 119/63
--- NOTE | 2017-08-01 19:23 | CONS ---
DATE OF CONSULTATION: PRIMARY PHYSICIAN: Dr. Kaur. REASON FOR CONSULTATION: ESRD dialysis. HISTORY OF PRESENT ILLNESS: The patient is a 52-year-old -[place]ian gentleman with known coronary artery disease. He is being evaluated for a renal transplant and is in a cardiac workup for the same. Given his known history of CAD and recurrent fluid overload episodes, he underwent left heart catheterization yesterday. He is noted to have mildly elevated left-sided filling pressures, EF of 55 and severe 3-vessel CAD with occlusion of previously placed stents. He was admitted to the hospital since yesterday was his dialysis day. He was not in any obvious distress and hence dialysis was conducted today. Renal consulted for the same. For rest of details, see electronic records. MYRON LIANG MD DR: DOROTEO/roni JOB#: [id number] / [id number]
[2017-08-07] MEDS ORDERED: DARBEPOETIN ALFA 40 MCG/0.4 ML DISP.SYRIN. SQ SCH (21:00)
== END 2017-08-01 21:10 | disposition home or self-care (01) | DRG 286 ==
LOC: CCL 06:52 → OBSVTOIN 14:50 → 2 NORTH 14:50
PROVIDERS: ADMIT Internal Medicine Cardiovascular Disease; ATTEND Internal Medicine Cardiovascular Disease
PROC: 4A023N7 Measurement of Cardiac Sampling and Pressure, Left Heart, Percutaneous Approach (ICD-10-PCS; principal; 2017-07-31)
PROC: B2111ZZ Fluoroscopy of Multiple Coronary Arteries using Low Osmolar Contrast (ICD-10-PCS; 2017-07-31)
PROC: B2151ZZ Fluoroscopy of Left Heart using Low Osmolar Contrast (ICD-10-PCS; 2017-07-31)
PROC: 5A1D70Z Performance of Urinary Filtration, Intermittent, Less than 6 Hours Per Day (ICD-10-PCS; 2017-07-31)
DX: I25.119 Atherosclerotic heart disease of native coronary artery with unspecified angina pectoris (principal); N18.6 End stage renal disease; I13.2 Hypertensive heart and chronic kidney disease with heart failure and with stage 5 chronic kidney disease, or end stage renal disease; E11.22 Type 2 diabetes mellitus with diabetic chronic kidney disease; E11.42 Type 2 diabetes mellitus with diabetic polyneuropathy; I50.32 Chronic diastolic (congestive) heart failure; D63.8 Anemia in other chronic diseases classified elsewhere; F03.90 Unspecified dementia, unspecified severity, without behavioral disturbance, psychotic disturbance, mood disturbance, and anxiety; E03.9 Hypothyroidism, unspecified; E78.5 Hyperlipidemia, unspecified; F41.9 Anxiety disorder, unspecified; G89.29 Other chronic pain; I48.91 Unspecified atrial fibrillation; J45.909 Unspecified asthma, uncomplicated; Z82.49 Family history of ischemic heart disease and other diseases of the circulatory system; Z86.73 Personal history of transient ischemic attack (TIA), and cerebral infarction without residual deficits; Z95.5 Presence of coronary angioplasty implant and graft; Z96.659 Presence of unspecified artificial knee joint; Z99.2 Dependence on renal dialysis; F32.9 Major depressive disorder, single episode, unspecified; K57.90 Diverticulosis of intestine, part unspecified, without perforation or abscess without bleeding; I25.2 Old myocardial infarction; Z98.49 Cataract extraction status, unspecified eye; E87.70 Fluid overload, unspecified; Z88.8 Allergy status to other drugs, medicaments and biological substances; Z91.041 Radiographic dye allergy status; Z88.0 Allergy status to penicillin; Z91.013 Allergy to seafood
CPT/HCPCS: 36415; 80048; 82962; 85027; 85610; 93458; 99152; 99153; C1769; C1771; C1892; G0269; J1200; J1644; J1815; J2250; J2930; J3010; J7512; J8597; Q0163; J2001

== ENCOUNTER → 2018-11-04 | Outpatient (CLI) | payer MEDICARE, OTHER ==
[2018-09-30 14:44] VITALS: BP 121/55
--- NOTE | 2018-10-30 10:42 | NUR ---
Order Verified Yes Consent signed Yes Previous PICC placement Yes x 4 per patient Past Medical/Surgical history and current diagnosis reviewed Yes, Patient currently has dialysis fistula in left upper arm, initially called Dr Sanchez to inform of risk to pt right arm vessels with right picc, if left fistula should stop working would need preserved vessels on right arm, Daniel okayed and ordered then a tunneled Central line with [facility], contacted IR and they spoke with Dr Scanlon in radiology and stated that he currently has a stent in his right intra jugular vein and the Left intra jugular is clear and they would like to preserve that vessel since his left dialysis is working. Dr Scanlon told nurse to let me know that a right picc was actually the patient's best option, called Dr Sanchez and informed him and he was okay with me proceeding with right arm picc. Patient Medical /Surgical History Related to PICC line placement Current left fistula Special considerations for PICC line placement See note above PICC placement indication buttermaker helper antibiotic usage, name of PICC Nurse Soraya Ham RN
--- NOTE | 2018-10-30 10:51 | NUR ---
Procedure: Following complete explanation of the PICC procedure including the indications, risks, and potential complications, including usage of right arm vessels for future dialysis, patient agreed and informed consent was obtained. The possibility for infection was discussed along with signs, symptoms, and prevention. All the questions were answered. Written and verbal patient education was provided. Hand hygiene performed. Standardized central line checklist was utilized. The patient was placed in the supine position, the right arm was prepped with chlorhexidine and patient draped with maximum sterile barrier. 1 mL 1% lidocaine was infiltrated into the skin to provide local anesthesia. A thorough assessment of the right upper extremity completed. Using real-time ultrasound guidance and standardized micro puncture set, the brachial vein was punctured and a peel away sheath was placed using the modified Seldinger technique. A tip location device was used to ensure adequate catheter placement. The catheter was secured using a securement device and an antimicrobial patch was applied directly on the insertion site followed by a transparent dressing. The purple port withdrew blood and flushed without resistance. Patient tolerated the procedure without apparent complication, several advances with catheter needed and the line dropped to proper position in chest, pt will need future picc lines with IR for live flouroscopy. A single Lumen Power PICC placement successful. Placement verified by EKG tip confirmation system with green p wave and phoebe confirmation. Tip located in the ACJ per 3 CG Complications:None
[~2018-11-04] MED LIST changes: +ACET325T9 PO; +ALBU2.5V8 INH; +AMLO5TAB10 PO; -AMLO5TAB2 PO; +ASPI-630 PO; +AZIT250T6 PO; +BISA-42 PO; +CALC200T3 PO; -CALC500T PO; +CALC500T31 PO; +CALC667T4 PO; +CARV3.12 PO; +CARV6.2511 PO; -CARV6.252 PO; +CHOL20002 PO; -CITA20TA5 PO; +CITA20TA6 PO; +CLOP75TA57 PO; +DARB40DI SQ; +DEXA0.5E2 PO; +DIPH50CA PO; +FENO54TA PO; +GUAI-295 PO; +HYDR-2759 PO; -HYDR-2762 PO; +HYDR-2765 PO; -HYDR-2766 PO; +HYDR-2769 PO; +HYDR-3135 PO; +HYDR5SUS PO; +LACT1CAP19 PO; +LEVE100020 PO; +LEVO175T5 PO; +LINA5TAB PO; +LIPITOR80 MG PO; +LORA10TA68 PO; +LOSA100T14 PO; -LOSA100T6 PO; +MAGN400C PO; +MAGN500C10 PO; +MERO500V IV; +MERO500V15 IV; +METF500T16 PO; +METO10TA81 PO; +MORP30TA83 PO; +MULT1TAB52 PO; +ONDA4TAB10 PO; +OXYC-317 PO; -OXYC-323 PO; +OXYC-411 PO; +OXYC1TAB15 PO; -OXYC1TAB9 PO; +OXYC5TAB4 PO; -OXYC5TAB95 PO; -PROAIR HFA8.5 GM INH; -ROPI0.252 PO; +ROPI0.254 PO; +TOPI50TA8 PO; +TRAZ-118 PO; -TRAZ50TA15 PO; +VANC1.5P17 IV; -VANC1.5P26 IV; +VANC500F2 IV; +WARF-31 PO; -WARF5TAB7 PO; +WARF7.5T48 PO
== END | disposition home or self-care (01) ==
LOC: PMGWOUND 11:15
PROVIDERS: ATTEND Emergency Medicine Undersea and Hyperbaric Medicine
DX: T87.89 Other complications of amputation stump (principal); E11.621 Type 2 diabetes mellitus with foot ulcer; L97.514 Non-pressure chronic ulcer of other part of right foot with necrosis of bone; E11.69 Type 2 diabetes mellitus with other specified complication; M86.8X7 Other osteomyelitis, ankle and foot; E11.21 Type 2 diabetes mellitus with diabetic nephropathy; E11.52 Type 2 diabetes mellitus with diabetic peripheral angiopathy with gangrene; I96 Gangrene, not elsewhere classified; E11.42 Type 2 diabetes mellitus with diabetic polyneuropathy; I13.2 Hypertensive heart and chronic kidney disease with heart failure and with stage 5 chronic kidney disease, or end stage renal disease; E11.22 Type 2 diabetes mellitus with diabetic chronic kidney disease; N18.6 End stage renal disease; I50.32 Chronic diastolic (congestive) heart failure; E03.9 Hypothyroidism, unspecified; G89.29 Other chronic pain; E78.5 Hyperlipidemia, unspecified; I48.91 Unspecified atrial fibrillation; M06.9 Rheumatoid arthritis, unspecified; I48.0 Paroxysmal atrial fibrillation; G47.30 Sleep apnea, unspecified; E78.00 Pure hypercholesterolemia, unspecified; G40.909 Epilepsy, unspecified, not intractable, without status epilepticus; K21.9 Gastro-esophageal reflux disease without esophagitis; M19.90 Unspecified osteoarthritis, unspecified site; I25.10 Atherosclerotic heart disease of native coronary artery without angina pectoris; F41.9 Anxiety disorder, unspecified; F03.90 Unspecified dementia, unspecified severity, without behavioral disturbance, psychotic disturbance, mood disturbance, and anxiety; F32.9 Major depressive disorder, single episode, unspecified; E66.01 Morbid (severe) obesity due to excess calories; Z89.421 Acquired absence of other right toe(s); Z79.4 Long term (current) use of insulin; Z99.2 Dependence on renal dialysis; Z68.36 Body mass index [BMI] 36.0-36.9, adult; Y83.5 Amputation of limb(s) as the cause of abnormal reaction of the patient, or of later complication, without mention of misadventure at the time of the procedure; E21.1 Secondary hyperparathyroidism, not elsewhere classified; Z91.013 Allergy to seafood; Z88.0 Allergy status to penicillin; Z79.82 Long term (current) use of aspirin; Z88.6 Allergy status to analgesic agent; Z79.891 Long term (current) use of opiate analgesic; Z79.02 Long term (current) use of antithrombotics/antiplatelets; Z87.891 Personal history of nicotine dependence; Z95.5 Presence of coronary angioplasty implant and graft; Z86.73 Personal history of transient ischemic attack (TIA), and cerebral infarction without residual deficits
CPT/HCPCS: 11042; 11045

== ENCOUNTER 2018-11-16 10:19 | Inpatient (IN) | payer MEDICARE, OTHER ==
[~2018-11-16] VITALS: Ht 167.6 cm; Wt 171.7 kg
[~2018-11-16 10:19] MED LIST changes: -ASPI-630 PO; -CALC200T3 PO; -DIPH50CA PO; -HYDR-2759 PO; -LACT1CAP19 PO; -LINA5TAB PO; -MERO500V15 IV
[2018-11-16 10:42] LABS: BASO # 0.1 x10^3/uL (0.0-0.2); BASO % 2 % (0-3); EOS # 0.2 x10^3/uL (0.0-0.7); EOS % 4 % (0-3); HEMATOCRIT 23.6 % (39.0-53.0); HEMOGLOBIN 7.7 g/dL (13.0-17.5); LYMPH # 0.7 x10^3/uL (1.0-4.8); LYMPH % 14 % (24-48); MEAN CORPUSCULAR HEMOGLOBIN 29 pg (25-35); MEAN CORPUSCULAR HGB CONC 33 g/dL (31-37); MEAN CORPUSCULAR VOLUME 90 fL (79-100); MONO # 0.4 x10^3/uL (0.0-1.1); MONO % 9 % (0-9); NEUT # 3.6 x10^3uL (1.8-7.7); NEUT % 72 % (31-73); PLATELET COUNT 141 x10^3/uL (140-400); RED BLOOD COUNT 2.63 x10^6/uL (4.30-5.70); RED CELL DISTRIBUTION WIDTH 16.4 % (11.5-14.5)
[2018-11-16 10:52] LABS: PROTHROMBIN TIME PATIENT 13.9 SEC (11.7-14.0)
--- NOTE | 2018-11-16 10:56 | PHYS DOC ---
Past Medical History Past Medical History: A-Fib, Anxiety, Asthma, CAD, CHF, CVA, Diabetes-Type II, GERD, High Cholesterol, CO, Renal Disease, Renal Failure, TIA, Vascular Disease Additional Past Medical Histor: morbid obesity,LEFT ARM FISTULA PLACED ON MAR 30 Past Surgical History: Angioplasty, Other Additional Past Surgical Histo: HD SHUNT,TOE AMPUTATION,RIGHT ARM SX,RIGHT ARM FX,SCROTAL SX,HEART STENT Alcohol Use: None Drug Use: None Adult General Chief Complaint Chief Complaint: SHORTNESS OF BREATH HPI HPI Patient is a 53 year old male who presents with SOA. He is a dialysis pt who has missed his treatments due to transportation issues. His last tx was last Sunday, 8 days ago. His SOA has been worsening over the last couple days. Worse with activity. Pt states he had a fever of 102 last night with chills. Denies recent illness. Complains of CP and a non productive cough. 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 He is still urinating. Relevant PMHx of kidney failure on dialysis, CHF with multiple CO, and asthma. States he quit smoking 7-8 years ago. [] Review of Systems Review of Systems Constitutional: Fever and chills [] Eyes: Denies change in visual acuity, redness, or eye pain [] HENT: Denies nasal congestion or sore throat [] Respiratory: Nonproductive cough and shortness of breath [] Cardiovascular: No additional information not addressed in HPI. Edema [] GI: Denies abdominal pain, nausea, vomiting, bloody stools or diarrhea [] : Denies dysuria or hematuria [] Musculoskeletal: Denies back pain or joint pain [] Integument: Denies rash or skin lesions [] Neurologic: Denies headache, focal weakness or sensory changes [] Endocrine: Denies polyuria or polydipsia [] All other systems were reviewed and found to be within normal limits, except as documented in this note. Current Medications Current Medications Current Medications Medications (Trade) Dose Ordered Sig/[place] Start Time Stop Time Status Last Admin Dose Admin Furosemide (Lasix) 40 mg 1X ONCE 11/16/18 11:00 11/16/18 11:01 DC 11/16/18 11:19 40 MG Nitroglycerin (Nitro-Bid Oint) 1 inch 1X ONCE 11/16/18 11:00 11/16/18 11:01 DC 11/16/18 11:19 1 INCH Allergies Allergies Allergies Coded Allergies Type Severity Reaction Last Updated Verified iodine Allergy Severe THROAT SWELLING 09/24/18 Yes lisinopril Allergy Severe 09/24/18 Yes Fish Containing Products Allergy Intermediate 09/24/18 Yes Penicillins Allergy Intermediate SEE COMMENT 09/24/18 Yes piperacillin Allergy Intermediate Hives 09/24/18 Yes tazobactam Allergy Intermediate 09/24/18 Yes Physical Exam Physical Exam Constitutional: Acute distress [] HENT: Normocephalic, atraumatic, bilateral external ears normal, oropharynx moist, no oral exudates, nose normal. [] Eyes: PERRLA, EOMI, conjunctiva normal, no discharge. [] Neck: Normal range of motion, no tenderness, supple, no stridor. [] Cardiovascular:Heart rate regular rhythm, no murmur [] Lungs & Thorax: Bilateral wheeze, no rhonchi or rales [] Abdomen: Bowel sounds normal, soft, no tenderness, no masses, no pulsatile masses. [] Skin: Warm, dry, no erythema, no rash. [] Back: No tenderness, no CVA tenderness. [] Extremities: No tenderness, no cyanosis, no clubbing, ROM intact,ONE PLUS edema. Left leg amputation [] Neurologic: Alert and oriented X 3, normal motor function, normal sensory function, no focal deficits noted. [] Psychologic: Affect normal, judgement normal, mood normal. [] Current Patient Data Vital Signs Vital Signs Date Time Temp Pulse Resp B/P (MAP) Pulse Ox O2 Delivery O2 Flow Rate FiO2 11/16/18 11:19 91 170/89 11/16/18 10:19 98.2 18 92 Room Air 98.2 Lab Values Laboratory Tests Test 11/16/18 10:28 White Blood Count 5.0 x10^3/uL (4.0-11.0) Red Blood Count 2.63 x10^6/uL (4.30-5.70) L Hemoglobin 7.7 g/dL (13.0-17.5) L Hematocrit 23.6 % (39.0-53.0) L Mean Corpuscular Volume 90 fL (79-100) Mean Corpuscular Hemoglobin 29 pg (25-35) Mean Corpuscular Hemoglobin Concent 33 g/dL (31-37) Red Cell Distribution Width 16.4 % (11.5-14.5) H Platelet Count 141 x10^3/uL (140-400) Neutrophils (%) (Auto) 72 % (31-73) Lymphocytes (%) (Auto) 14 % (24-48) L Monocytes (%) (Auto) 9 % (0-9) Eosinophils (%) (Auto) 4 % (0-3) H Basophils (%) (Auto) 2 % (0-3) Neutrophils # (Auto) 3.6 x10^3uL (1.8-7.7) Lymphocytes # (Auto) 0.7 x10^3/uL (1.0-4.8) L Monocytes # (Auto) 0.4 x10^3/uL (0.0-1.1) Eosinophils # (Auto) 0.2 x10^3/uL (0.0-0.7) Basophils # (Auto) 0.1 x10^3/uL (0.0-0.2) Prothrombin Time 13.9 SEC (11.7-14.0) Prothrombin Time INR 1.1 (0.8-1.1) Sodium Level 141 mmol/L (136-145) Potassium Level 4.9 mmol/L (3.5-5.1) Chloride Level 106 mmol/L (98-107) Carbon Dioxide Level 23 mmol/L (21-32) Anion Gap 12 (6-14) Blood Urea Nitrogen 79 mg/dL (8-26) H Creatinine 6.0 mg/dL (0.7-1.3) H Estimated GFR (Cockcroft-Gault) 12.0 BUN/Creatinine Ratio 13 (6-20) Glucose Level 167 mg/dL (70-99) H Lactic Acid Level 0.6 mmol/L (0.4-2.0) Calcium Level 8.9 mg/dL (8.5-10.1) Total Bilirubin 0.6 mg/dL (0.2-1.0) Aspartate Amino Transferase (AST) 25 U/L (15-37) Alanine Aminotransferase (ALT) 23 U/L (16-63) Alkaline Phosphatase 73 U/L (46-116) Troponin I Quantitative 0.046 ng/mL (0.000-0.055) RM-Kpf-O-Type Natriuretic Peptide 30328 pg/mL (0-124) H Total Protein 7.6 g/dL (6.4-8.2) Albumin 3.2 g/dL (3.4-5.0) L Albumin/Globulin Ratio 0.7 (1.0-1.7) L Laboratory Tests 11/16/18 10:28 Laboratory Tests 11/16/18 10:28 EKG EKG [] Interpretation Time: Sinus rhythm. Rate of 90. Inferior q waves. No STEMI Radiology/Procedures Radiology/Procedures [] Impressions: Impression: 1. No focal consolidation. 2. Unchanged cardiomegaly. Course & Med Decision Making Course & Med Decision Making Pertinent Labs and Imaging studies reviewed. (See chart for details) []53 YO M WITH HX OF ESRD ON HD MISSED 8 DAYS WORTH, CHF, P/W SOB LOW NORMAL SAT 'S WHEEZING ON EXAM BUT PROBABLY FLUID OVERLOAD RELATED RATHER THAN REACTIVE AIRWAY DISEASE, BP HIGH BUT STABLE OVERALL. LASIX GIVEN. PT TO BE ADMITTED TO TE FOR DIALYSIS. TROP NEG, BNP ELEV REPROTED FEVER LAST NIGHT BUT NO SIGNS OF SEPSIS CURRENTLY, U/A AND FLU SWAB PENDING AT THIS TIME. Dragon Disclaimer Dragon Disclaimer This electronic medical record was generated, in whole or in part, using a voice recognition dictation system. Departure Departure Impression: Primary Impression: ESRD (end stage renal disease) Disposition: 09 ADMITTED INPATIENT Admitting Physician: Franky Guerin Condition: STABLE Referrals: MARIA ISABEL LOPEZ DO (PCP) SHAMIR LIM MD Nov 16, 2018 10:56
[2018-11-16] MEDS ORDERED: FUROSEMIDE 40 MG/4 ML VIAL. IVP ONE (11:00)
[2018-11-16] MEDS ORDERED: NITROGLYCERIN OINT 1 GM PACKET. TP ONE (11:00)
[2018-11-16 11:03] LABS: CALCIUM 8.9 mg/dL (8.5-10.1); POTASSIUM 4.9 mmol/L (3.5-5.1)
--- NOTE | 2018-11-16 11:08 | RAD ---
AP view of the chest. Comparison: Chest radiograph dated 09/29/2018. Indication: SOA Findings: Normal lung volume. No focal airspace disease. Unchanged pulmonary vasculature. No pleural effusion. No pneumothorax. Unchanged cardiomegaly. The great vessels are normal. Redemonstration of bilateral vascular stents overlying the lung apices. No acute osseous abnormality. Impression: 1. No focal consolidation. 2. Unchanged cardiomegaly. Electronically signed by: Oliver Morris MD (11/16/2018 11:05 AM) [facility]
--- NOTE | 2018-11-16 11:10 | EKG ---
[facility] [address] [place] [address] Test Date: 2018-11-16 Test Time: 10:23:59 Pat Name: BHAVYA WILKES Department: Room: Gender: Male Nib Finisher: : 1965 Requested By: SHAMIR LIM Order Number: [id number] Reading MD: Avni Kaur MD Measurements Intervals [place] Rate: 90 P: 64 CA: 168 QRS: -49 QRSD: 94 T: 34 QT: 376 QTc: 464 Interpretive Statements SINUS RHYTHM ABNORMAL LEFT AXIS DEVIATION R-S TRANSITION ZONE IN V LEADS DISPLACED TO THE LEFT QRS(T) CONTOUR ABNORMALITY CONSIDER ANTEROSEPTAL MYOCARDIAL DAMAGE CONSISTENT WITH INFERIOR INFARCT PROBABLY OLD ABNORMAL ECG Electronically Signed On 11-19-2018 15:15:03 CDT by Avni Kaur MD
[2018-11-16 11:12] LABS: ALBUMIN 3.2 g/dL (3.4-5.0); ALBUMIN/GLOBULIN RATIO 0.7 (1.0-1.7); TOTAL BILIRUBIN 0.6 mg/dL (0.2-1.0); TOTAL PROTEIN 7.6 g/dL (6.4-8.2)
[2018-11-16 12:15] VITALS: BP 173/78
[2018-11-16 12:15] LABS: BILIRUBIN,URINE NEGATIVE (NEG); CLARITY,URINE CLEAR; COLOR,URINE YELLOW; NITRITE,URINE NEGATIVE (NEG); PROTEIN,URINE >=300 mg/dL (NEG-TRACE)
[2018-11-16 12:26] LABS: INFLUENZA A PATIENT NEGATIVE (NEGATIVE); INFLUENZA B PATIENT NEGATIVE (NEGATIVE)
[2018-11-16 12:34] LABS: BACTERIA,URINE FEW /HPF (0-FEW); HYALINE CASTS, URINE FEW /HPF; SQUAMOUS EPITHELIAL CELL,UR MANY /LPF
--- NOTE | 2018-11-16 12:36 | HP ---
ADMIT DATE: 11/16/2018 CHIEF COMPLAINT: Shortness of breath. HISTORY OF PRESENT ILLNESS: The patient is a pleasant 53-year-old male well known to our service. We started him on dialysis couple of years ago. He has been admitted a couple of times a month since then. At this time, he missed dialysis for 8 days. He states he just could not get transportation. Now, he is short of breath. He is volume overloaded, had a subjective fever to 100.2, but here in the ER, he is not febrile. He does complain of some chest pain and productive cough. He has a wound VAC on the right foot. He is critically ill. I discussed the case with the ER physician. We are going to admit the patient and consult Nephrology for dialysis. PAST MEDICAL HISTORY: Noncompliance; ESRD, on dialysis; AFib, anxiety, asthma, coronary artery disease, CHF, stroke, diabetes, GERD, hypertension, hyperlipidemia, myocardial infarction, TIA, peripheral vascular disease, morbid obesity, left arm fistula, right fourth and fifth toe amputations, left below the knee amputation, scrotal surgery, cardiac stents, right arm fracture. ALLERGIES: FISH, PENICILLIN, IODINE, LISINOPRIL, ZOSYN. FAMILY HISTORY: Coronary artery disease. SOCIAL HISTORY: Lives at home with his , Taryn. He does not drink, smoke or take drugs. MEDICATIONS: Reviewed. He is on 18 including Claritin, meropenem, vancomycin, Ventolin, Plavix, Lipitor, Coreg, aspirin, oxycodone, Tylenol, Keppra, Ambien, Mirapex, calcium, Flovent, magnesium, Pepcid, Synthroid. REVIEW OF SYSTEMS: GENERAL: He complains of subjective fevers. SKIN: No bruising, hair changes or rashes. EYES: No blurred, double or loss of vision. NOSE AND THROAT: No history of nosebleeds, hoarseness or sore throat. HEART: No history of palpitations, chest pain or shortness of breath on exertion. LUNGS: He complains of shortness of breath. GASTROINTESTINAL: Denies changes in appetite, nausea, vomiting, diarrhea or constipation. GENITOURINARY: No history of frequency, urgency, hesitancy or nocturia. NEUROLOGIC: Denies history of numbness, tingling, tremor or weakness. PSYCHIATRIC: No history of panic, anxiety or depression. ENDOCRINE: No history of heat or cold intolerance, polyuria or polydipsia. EXTREMITIES: He complains of pain on the right foot. He has a wound VAC in place. PHYSICAL EXAMINATION: VITAL SIGNS: Temperature currently 98.2, pulse 92, respirations 18, blood pressure 179/92, O2 sat 92%. GENERAL: He is sleeping. He barely awakens. He is very weak, very frail, very short of breath, appears to be failing to thrive over the past few months. HEART: Distant S1, S2 with a soft S3. LUNGS: Bibasilar crackles. ABDOMEN: Soft, distended, obese. Decreased bowel sounds. EXTREMITIES: The right foot has a wound VAC in place. 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 ENDOCRINE: No thyromegaly. LYMPHATICS: No cervical nodes. PSYCHIATRY: He is depressed. LABORATORY DATA: White count 5, hemoglobin 7.7, platelets 141. Electrolytes: Sodium 141, potassium 4.9, chloride 106, bicarbonate 23, BUN 79, creatinine 6, glucose 167. INR is 1.1. Chest x-ray shows cardiomegaly. Albumin 3.2. BNP 18,965 and troponin 0.046. ASSESSMENT AND PLAN: Severe noncompliance with dialysis with secondary to volume overload, subjective fevers, anemia, azotemia, hyperglycemia, elevated BNP, suspect acute on chronic systolic and diastolic heart failure and malnutrition. The patient has been admitted. He is critically ill. We will consult Cardiology, consult Nephrology. I am going to try to resume his home meds. DVT prophylaxis. Full code. Aggressive wound care. We are checking him for influenza A and B. Blood cultures are pending. Urine culture pending. We will try IV Lasix as he does respond to Lasix sometimes. P.r.n. nitroglycerin and we did order 1 inch of paste x 1. Long-term prognosis is extremely guarded at best. He is critically ill. Total time 36 minutes. VIC TIWARI DO DR: YOHAN/roni JOB#: [id number] / [id number]
[2018-11-16] MEDS ORDERED: IV NORMAL SALINE 1000ML BAG 1,000 ML IV PRN ×2 (14:13)
[2018-11-16] MEDS ORDERED: ALBUMIN HUMAN 25% 200 ML IV PRN (14:15)
[2018-11-16] MEDS ORDERED: 0.9 % SODIUM CHLORIDE 10 ML DISP.SYRIN. IV PRN ×2 (14:15)
[2018-11-16] MEDS ORDERED: DIALYSIS PATIENT. MC PRN ×2 (14:15)
[2018-11-16 15:00] VITALS: BP 198/76
--- NOTE | 2018-11-16 16:27 | PDOC2 ---
CONSULT Date of Consult Date of Consult DATE: 11/16/18 TIME: 16:17 Reason for Consult Reason for Consult: ESRD , severe Non compliance Source Source: Chart review, Patient History of Present Illness Reason for Visit: Patient is a 53 year old AA male ESRD , sever non compliance with dialysis, misses week at a time despite of being called by [facility] dialysis staff on his HD days .He presents with SOA to the ER . His last tx was last Sunday, 8 days ago. His SOA has been worsening over the last couple days. Worse with activity. Pt states he had a fever of 102 last night with chills. Complains of CP and a non productive cough. Pt states his leg (BKA ON LEFT SO THE RIGHT ONE) is swollen more than normal. He is still urinating. CHF with multiple MA, and asthma. States he quit smoking 7-8 years ago. [] Past Medical History Cardiovascular: AFIB, CAD, CHF, HTN, MA, Hyperlipidemia, Other Pulmonary: COPD CENTRAL NERVOUS SYSTEM: Dementia, Periperal neuropathy, Seizure, TIA GI: Diverticulosis, Other Heme/Onc: Anemia NOS Hepatobiliary: No pertinent hx Psych: Anxiety, Depression Musculoskeletal: Osteoarthritis Rheumatologic: Rheumatoid arthritis Infectious disease: No pertinent hx Renal/: Chronic renal failure Endocrine: Diabetes, Hypothyroidism, Hyperparathyroidism Past Surgical History Past Surgical History: Cataract Removal, Total knee replacement, Other Family History Family History: Diabetes, Hypertension Social History Social History: Parent ALCOHOL: none Drugs: None Lives: with Family Current Medications Current Medications Current Medications Furosemide (Lasix) 40 mg 1X ONCE IVP Last administered on 11/16/18at 11:19; Start 11/16/18 at 11:00; Stop 11/16/18 at 11:01; Status DC Nitroglycerin (Nitro-Bid Oint) 1 inch 1X ONCE TP Last administered on at 11:19; Start 11/16/18 at 11:00; Stop 11/16/18 at 11:01; Status DC Sodium Chloride 1,000 ml @ 1,000 mls/hr Q1H PRN IV hypotension; Start 11/16/18 at 14:13; Stop 11/16/18 at 20:12 Albumin Human 200 ml @ 200 mls/hr 1X PRN PRN IV Hypotension; Start 11/16/18 at 14:15; Stop 11/16/18 at 20:14 Sodium Chloride (Normal Saline Flush) 10 ml 1X PRN PRN IV AP catheter pack; Start 11/16/18 at 14:15; Stop 11/17/18 at 14:14 Sodium Chloride (Normal Saline Flush) 10 ml 1X PRN PRN IV FIRE PREVENTION OFFICER catheter pack; Start 11/16/18 at 14:15; Stop 11/17/18 at 14:14 Sodium Chloride 1,000 ml @ 400 mls/hr Q2H30M PRN IV PATENCY; Start 11/16/18 at 14:13; Stop 11/17/18 at 02:12 Info (PHARMACY MONITORING -- do not chart) 1 each PRN DAILY PRN MC SEE COMMENTS ; Start 11/16/18 at 14:15 Info (PHARMACY MONITORING -- do not chart) 1 each PRN DAILY PRN MC SEE COMMENTS ; Start 11/16/18 at 14:15 Active Scripts Active Reported Aspirin 325 Mg Tablet 1 Tab PO DAILY Coreg (Carvedilol) 3.125 Mg Tablet 3.125 Mg PO BIDWMEALS Magnesium (Magnesium Oxide) 400 Mg Capsule 400 Mg PO DAILY Levothyroxine Sodium 175 Mcg Tablet 175 Mcg PO DAILYAC Plavix (Clopidogrel Bisulfate) 75 Mg Tablet 75 Mg PO DAILY Calcium Carbonate 500 Mg Tablet 500 Mg PO BID Lipitor (Atorvastatin Calcium) 80 Mg Tablet 40 Mg PO HS Keppra (Levetiracetam) 1,000 Mg Tablet 1 Tab PO BID Endocet 10-325 Mg Tablet (Oxycodone Hcl/Acetaminophen) 1 Each Tablet 1 Tab PO QID Flovent 110MCG Hfa (Fluticasone Propionate) 12 Gm Aer.w.adap 2 Puff IH BID Zolpidem Tartrate 5 Mg Tablet 1 Tab PO QHS Mirapex (Pramipexole Di-Hcl) 0.25 Mg Tablet 1 Tab PO DAILY Tylenol (Acetaminophen) 325 Mg Tablet 650 Mg PO PRN Q6HRS PRN Famotidine 20 Mg Tablet 20 Mg PO HS Ventolin Hfa Inhaler (Albuterol Sulfate) 18 Gm Hfa.aer.ad 1 Puff INH Q6HRS PRN Allergies Allergies: Coded Allergies: iodine (Verified Allergy, Severe, THROAT SWELLING, 09/24/18) lisinopril (Verified Allergy, Severe, 09/24/18) Fish Containing Products (Verified Allergy, Intermediate, 09/24/18) Penicillins (Verified Allergy, Intermediate, SEE COMMENT, 09/24/18) Tolerates meropenem and Cephalosporins piperacillin (Verified Allergy, Intermediate, Hives, 09/24/18) Tolerates meropenem tazobactam (Verified Allergy, Intermediate, 09/24/18) ROS Review of System As per HPI Physical Exam Physical Exam GENERAL: NAD , Morbidly obese HEENT-OM moist NECK- Supple HEART: Distant S1, S2 with a soft S3. LUNGS: Bibasilar crackles. ABDOMEN: Soft, obese. EXTREMITIES: The right foot has a wound VAC in place. 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 CAD/CHF Rt Foot wound/Lt BKA Non Compliance Labs Labs Laboratory Tests Test 11/16/18 10:28 11/16/18 12:00 11/16/18 12:04 White Blood Count 5.0 x10^3/uL (4.0-11.0) Red Blood Count 2.63 x10^6/uL (4.30-5.70) Hemoglobin 7.7 g/dL (13.0-17.5) Hematocrit 23.6 % (39.0-53.0) Mean Corpuscular Volume 90 fL (79-100) Mean Corpuscular Hemoglobin 29 pg (25-35) Mean Corpuscular Hemoglobin Concent 33 g/dL (31-37) Red Cell Distribution Width 16.4 % (11.5-14.5) Platelet Count 141 x10^3/uL (140-400) Neutrophils (%) (Auto) 72 % (31-73) Lymphocytes (%) (Auto) 14 % (24-48) Monocytes (%) (Auto) 9 % (0-9) Eosinophils (%) (Auto) 4 % (0-3) Basophils (%) (Auto) 2 % (0-3) Neutrophils # (Auto) 3.6 x10^3uL (1.8-7.7) Lymphocytes # (Auto) 0.7 x10^3/uL (1.0-4.8) Monocytes # (Auto) 0.4 x10^3/uL (0.0-1.1) Eosinophils # (Auto) 0.2 x10^3/uL (0.0-0.7) Basophils # (Auto) 0.1 x10^3/uL (0.0-0.2) Prothrombin Time 13.9 SEC (11.7-14.0) Prothromb Time International Ratio 1.1 (0.8-1.1) Sodium Level 141 mmol/L (136-145) Potassium Level 4.9 mmol/L (3.5-5.1) Chloride Level 106 mmol/L (98-107) Carbon Dioxide Level 23 mmol/L (21-32) Anion Gap 12 (6-14) Blood Urea Nitrogen 79 mg/dL (8-26) Creatinine 6.0 mg/dL (0.7-1.3) Estimated GFR (Cockcroft-Gault) 12.0 BUN/Creatinine Ratio 13 (6-20) Glucose Level 167 mg/dL (70-99) Lactic Acid Level 0.6 mmol/L (0.4-2.0) Calcium Level 8.9 mg/dL (8.5-10.1) Total Bilirubin 0.6 mg/dL (0.2-1.0) Aspartate Amino Transf (AST/SGOT) 25 U/L (15-37) Alanine Aminotransferase (ALT/SGPT) 23 U/L (16-63) Alkaline Phosphatase 73 U/L (46-116) Troponin I Quantitative 0.046 ng/mL (0.000-0.055) NE-Gzb-J-Type Natriuretic Peptide 36536 pg/mL (0-124) Total Protein 7.6 g/dL (6.4-8.2) Albumin 3.2 g/dL (3.4-5.0) Albumin/Globulin Ratio 0.7 (1.0-1.7) Procalcitonin 0.10 ng/mL (0.00-0.10) Influenza Type A Antigen Negative (NEGATIVE) Influenza Type B Antigen Negative (NEGATIVE) Urine Collection Type Unknown Urine Color Yellow Urine Clarity Clear Urine pH 7.0 Urine Specific [place] 1.015 Urine Protein >=300 mg/dL (NEG-TRACE) Urine Glucose (UA) 100 mg/dL (NEG) Urine Ketones (Stick) Negative mg/dL (NEG) Urine Blood Trace (NEG) Urine Nitrite Negative (NEG) Urine Bilirubin Negative (NEG) Urine Urobilinogen Dipstick 1.0 mg/dL (0.2 mg/dL) Urine Leukocyte Esterase Negative (NEG) Urine RBC 6-10 /HPF (0-2) Urine WBC 1-4 /HPF (0-4) Urine Squamous Epithelial Cells Many /LPF Urine Bacteria Few /HPF (0-FEW) Urine Hyaline Casts Few /HPF Urine Mucus Slight /LPF Laboratory Tests Test 11/16/18 10:28 11/16/18 12:00 11/16/18 12:04 White Blood Count 5.0 x10^3/uL (4.0-11.0) Red Blood Count 2.63 x10^6/uL (4.30-5.70) Hemoglobin 7.7 g/dL (13.0-17.5) Hematocrit 23.6 % (39.0-53.0) Mean Corpuscular Volume 90 fL (79-100) Mean Corpuscular Hemoglobin 29 pg (25-35) Mean Corpuscular Hemoglobin Concent 33 g/dL (31-37) Red Cell Distribution Width 16.4 % (11.5-14.5) Platelet Count 141 x10^3/uL (140-400) Neutrophils (%) (Auto) 72 % (31-73) Lymphocytes (%) (Auto) 14 % (24-48) Monocytes (%) (Auto) 9 % (0-9) Eosinophils (%) (Auto) 4 % (0-3) Basophils (%) (Auto) 2 % (0-3) Neutrophils # (Auto) 3.6 x10^3uL (1.8-7.7) Lymphocytes # (Auto) 0.7 x10^3/uL (1.0-4.8) Monocytes # (Auto) 0.4 x10^3/uL (0.0-1.1) Eosinophils # (Auto) 0.2 x10^3/uL (0.0-0.7) Basophils # (Auto) 0.1 x10^3/uL (0.0-0.2) Prothrombin Time 13.9 SEC (11.7-14.0) Prothromb Time International Ratio 1.1 (0.8-1.1) Sodium Level 141 mmol/L (136-145) Potassium Level 4.9 mmol/L (3.5-5.1) Chloride Level 106 mmol/L (98-107) Carbon Dioxide Level 23 mmol/L (21-32) Anion Gap 12 (6-14) Blood Urea Nitrogen 79 mg/dL (8-26) Creatinine 6.0 mg/dL (0.7-1.3) Estimated GFR (Cockcroft-Gault) 12.0 BUN/Creatinine Ratio 13 (6-20) Glucose Level 167 mg/dL (70-99) Lactic Acid Level 0.6 mmol/L (0.4-2.0) Calcium Level 8.9 mg/dL (8.5-10.1) Total Bilirubin 0.6 mg/dL (0.2-1.0) Aspartate Amino Transf (AST/SGOT) 25 U/L (15-37) Alanine Aminotransferase (ALT/SGPT) 23 U/L (16-63) Alkaline Phosphatase 73 U/L (46-116) Troponin I Quantitative 0.046 ng/mL (0.000-0.055) PC-Cmq-Q-Type Natriuretic Peptide 73324 pg/mL (0-124) Total Protein 7.6 g/dL (6.4-8.2) Albumin 3.2 g/dL (3.4-5.0) Albumin/Globulin Ratio 0.7 (1.0-1.7) Procalcitonin 0.10 ng/mL (0.00-0.10) Influenza Type A Antigen Negative (NEGATIVE) Influenza Type B Antigen Negative (NEGATIVE) Urine Collection Type Unknown Urine Color Yellow Urine Clarity Clear Urine pH 7.0 Urine Specific [place] 1.015 Urine Protein >=300 mg/dL (NEG-TRACE) Urine Glucose (UA) 100 mg/dL (NEG) Urine Ketones (Stick) Negative mg/dL (NEG) Urine Blood Trace (NEG) Urine Nitrite Negative (NEG) Urine Bilirubin Negative (NEG) Urine Urobilinogen Dipstick 1.0 mg/dL (0.2 mg/dL) Urine Leukocyte Esterase Negative (NEG) Urine RBC 6-10 /HPF (0-2) Urine WBC 1-4 /HPF (0-4) Urine Squamous Epithelial Cells Many /LPF Urine Bacteria Few /HPF (0-FEW) Urine Hyaline Casts Few /HPF Urine Mucus Slight /LPF Review All relevant outside records, renal labs, imaging studies, telemetry/EKG's were reviewed. Images Images CxR-- Normal lung volume. No focal airspace disease. Unchanged pulmonary vasculature. No pleural effusion. No pneumothorax. Unchanged cardiomegaly. The great vessels are normal. Redemonstration of bilateral vascular stents overlying the lung apices. No acute osseous abnormality. Impression: 1. No focal consolidation. 2. Unchanged cardiomegaly. MINA RICHARDSON MD Nov 16, 2018 16:27
[2018-11-16 20:16] VITALS: BP 168/77
[2018-11-16] MEDS ORDERED: DEXTROSE 50% 25 GM / 50ML DISP.SYRIN. IV PRN (20:45)
[2018-11-16] MEDS ORDERED: DARBEPOETIN ALFA 60 MCG/0.3 ML DISP.SYRIN. SQ SCH (21:00)
[2018-11-16 23:09] VITALS: BP 160/74
[2018-11-16] MEDS: NITROGLYCERIN OINT 1 GM PACKET. TP SCH (23:59)
[2018-11-17 03:35] VITALS: BP 158/72
[2018-11-17] MEDS: NITROGLYCERIN OINT 1 GM PACKET. TP SCH ×3 (06:19→23:46)
[2018-11-17 07:00] VITALS: BP 169/77
[2018-11-17 10:44] VITALS: BP 176/80
--- NOTE | 2018-11-17 11:44 | PDOC ---
PROGRESS NOTES Chief Complaint Chief Complaint volume overload secondary to non compliance with dialysis Acute febrile illness? no evidence of infection in initial work up Anemia of chronic illness Elevated BNP which is very common in ESRD on HD patients Plan; follow recommendations from systems management consultant HD as per nephrology patient may be transferred to a medical floor follow results of urine and blood cultures History of Present Illness History of Present Illness Patient with no acute events overnight, patient with long standing history of non compliance, stressed the importance of staying adherent to his treatment plan to avoid further complications from his medical comrobidities. Vitals Vitals Vital Signs Date Time Temp Pulse Resp B/P (MAP) Pulse Ox O2 Delivery O2 Flow Rate FiO2 11/17/18 10:44 98.6 82 18 176/80 (112) 99 Room Air 98.6 11/17/18 08:00 2.0 Physical Exam General: Alert, Oriented X3, Cooperative Heart: Regular rate, Normal S1, Normal S2, Other (sytolic murmur ) Lungs: Clear Abdomen: Normal bowel sounds, Soft, No tenderness Extremities: No clubbing, No cyanosis Skin: No rashes, No breakdown Labs LABS Laboratory Tests Test 11/16/18 12:00 11/16/18 12:04 11/16/18 20:50 11/17/18 07:45 Influenza Type A Antigen Negative (NEGATIVE) Influenza Type B Antigen Negative (NEGATIVE) Urine Collection Type Unknown Urine Color Yellow Urine Clarity Clear Urine pH 7.0 Urine Specific [place] 1.015 Urine Protein >=300 mg/dL (NEG-TRACE) Urine Glucose (UA) 100 mg/dL (NEG) Urine Ketones (Stick) Negative mg/dL (NEG) Urine Blood Trace (NEG) Urine Nitrite Negative (NEG) Urine Bilirubin Negative (NEG) Urine Urobilinogen Dipstick 1.0 mg/dL (0.2 mg/dL) Urine Leukocyte Esterase Negative (NEG) Urine RBC 6-10 /HPF (0-2) Urine WBC 1-4 /HPF (0-4) Urine Squamous Epithelial Cells Many /LPF Urine Bacteria Few /HPF (0-FEW) Urine Hyaline Casts Few /HPF Urine Mucus Slight /LPF Glucose (Fingerstick) 89 mg/dL (70-99) 150 mg/dL (70-99) Test 11/17/18 11:24 Glucose (Fingerstick) 157 mg/dL (70-99) Comment Review of Relevant I have reviewed the following items lila (where applicable) has been applied. Labs Laboratory Tests Test 11/16/18 10:28 11/16/18 12:00 11/16/18 12:04 11/16/18 20:50 White Blood Count 5.0 x10^3/uL (4.0-11.0) Red Blood Count 2.63 x10^6/uL (4.30-5.70) Hemoglobin 7.7 g/dL (13.0-17.5) Hematocrit 23.6 % (39.0-53.0) Mean Corpuscular Volume 90 fL (79-100) Mean Corpuscular Hemoglobin 29 pg (25-35) Mean Corpuscular Hemoglobin Concent 33 g/dL (31-37) Red Cell Distribution Width 16.4 % (11.5-14.5) Platelet Count 141 x10^3/uL (140-400) Neutrophils (%) (Auto) 72 % (31-73) Lymphocytes (%) (Auto) 14 % (24-48) Monocytes (%) (Auto) 9 % (0-9) Eosinophils (%) (Auto) 4 % (0-3) Basophils (%) (Auto) 2 % (0-3) Neutrophils # (Auto) 3.6 x10^3uL (1.8-7.7) Lymphocytes # (Auto) 0.7 x10^3/uL (1.0-4.8) Monocytes # (Auto) 0.4 x10^3/uL (0.0-1.1) Eosinophils # (Auto) 0.2 x10^3/uL (0.0-0.7) Basophils # (Auto) 0.1 x10^3/uL (0.0-0.2) Prothrombin Time 13.9 SEC (11.7-14.0) Prothromb Time International Ratio 1.1 (0.8-1.1) Sodium Level 141 mmol/L (136-145) Potassium Level 4.9 mmol/L (3.5-5.1) Chloride Level 106 mmol/L (98-107) Carbon Dioxide Level 23 mmol/L (21-32) Anion Gap 12 (6-14) Blood Urea Nitrogen 79 mg/dL (8-26) Creatinine 6.0 mg/dL (0.7-1.3) Estimated GFR (Cockcroft-Gault) 12.0 BUN/Creatinine Ratio 13 (6-20) Glucose Level 167 mg/dL (70-99) Lactic Acid Level 0.6 mmol/L (0.4-2.0) Calcium Level 8.9 mg/dL (8.5-10.1) Total Bilirubin 0.6 mg/dL (0.2-1.0) Aspartate Amino Transf (AST/SGOT) 25 U/L (15-37) Alanine Aminotransferase (ALT/SGPT) 23 U/L (16-63) Alkaline Phosphatase 73 U/L (46-116) Troponin I Quantitative 0.046 ng/mL (0.000-0.055) SU-Oxb-R-Type Natriuretic Peptide 85962 pg/mL (0-124) Total Protein 7.6 g/dL (6.4-8.2) Albumin 3.2 g/dL (3.4-5.0) Albumin/Globulin Ratio 0.7 (1.0-1.7) Procalcitonin 0.10 ng/mL (0.00-0.10) Influenza Type A Antigen Negative (NEGATIVE) Influenza Type B Antigen Negative (NEGATIVE) Urine Collection Type Unknown Urine Color Yellow Urine Clarity Clear Urine pH 7.0 Urine Specific [place] 1.015 Urine Protein >=300 mg/dL (NEG-TRACE) Urine Glucose (UA) 100 mg/dL (NEG) Urine Ketones (Stick) Negative mg/dL (NEG) Urine Blood Trace (NEG) Urine Nitrite Negative (NEG) Urine Bilirubin Negative (NEG) Urine Urobilinogen Dipstick 1.0 mg/dL (0.2 mg/dL) Urine Leukocyte Esterase Negative (NEG) Urine RBC 6-10 /HPF (0-2) Urine WBC 1-4 /HPF (0-4) Urine Squamous Epithelial Cells Many /LPF Urine Bacteria Few /HPF (0-FEW) Urine Hyaline Casts Few /HPF Urine Mucus Slight /LPF Glucose (Fingerstick) 89 mg/dL (70-99) Test 11/17/18 07:45 11/17/18 11:24 Glucose (Fingerstick) 150 mg/dL (70-99) 157 mg/dL (70-99) Laboratory Tests Test 11/16/18 12:00 11/16/18 12:04 11/16/18 20:50 11/17/18 07:45 Influenza Type A Antigen Negative (NEGATIVE) Influenza Type B Antigen Negative (NEGATIVE) Urine Collection Type Unknown Urine Color Yellow Urine Clarity Clear Urine pH 7.0 Urine Specific [place] 1.015 Urine Protein >=300 mg/dL (NEG-TRACE) Urine Glucose (UA) 100 mg/dL (NEG) Urine Ketones (Stick) Negative mg/dL (NEG) Urine Blood Trace (NEG) Urine Nitrite Negative (NEG) Urine Bilirubin Negative (NEG) Urine Urobilinogen Dipstick 1.0 mg/dL (0.2 mg/dL) Urine Leukocyte Esterase Negative (NEG) Urine RBC 6-10 /HPF (0-2) Urine WBC 1-4 /HPF (0-4) Urine Squamous Epithelial Cells Many /LPF Urine Bacteria Few /HPF (0-FEW) Urine Hyaline Casts Few /HPF Urine Mucus Slight /LPF Glucose (Fingerstick) 89 mg/dL (70-99) 150 mg/dL (70-99) Test 11/17/18 11:24 Glucose (Fingerstick) 157 mg/dL (70-99) Microbiology 11/16/18 Blood Culture - Preliminary, Resulted NO GROWTH AFTER 1 DAY Medications Current Medications Furosemide (Lasix) 40 mg 1X ONCE IVP Last administered on 11/16/18at 11:19; Start 11/16/18 at 11:00; Stop 11/16/18 at 11:01; Status DC Nitroglycerin (Nitro-Bid Oint) 1 inch 1X ONCE TP Last administered on at 11:19; Start 11/16/18 at 11:00; Stop 11/16/18 at 11:01; Status DC Sodium Chloride 1,000 ml @ 1,000 mls/hr Q1H PRN IV hypotension; Start 11/16/18 at 14:13; Stop 11/16/18 at 20:12; Status DC Albumin Human 200 ml @ 200 mls/hr 1X PRN PRN IV Hypotension; Start 11/16/18 at 14:15; Stop 11/16/18 at 20:14; Status DC Sodium Chloride (Normal Saline Flush) 10 ml 1X PRN PRN IV AP catheter pack; Start 11/16/18 at 14:15; Stop 11/17/18 at 14:14 Sodium Chloride (Normal Saline Flush) 10 ml 1X PRN PRN IV BAKERY CHEF catheter pack; Start 11/16/18 at 14:15; Stop 11/17/18 at 14:14 Sodium Chloride 1,000 ml @ 400 mls/hr Q2H30M PRN IV PATENCY; Start 11/16/18 at 14:13; Stop 11/17/18 at 02:12; Status DC Info (PHARMACY MONITORING -- do not chart) 1 each PRN DAILY PRN MC SEE COMMENTS ; Start 11/16/18 at 14:15; Status Cancel Info (PHARMACY MONITORING -- do not chart) 1 each PRN DAILY PRN MC SEE COMMENTS ; Start 11/16/18 at 14:15 Darbepoetin Jace (Aranesp) 60 mcg WEEKLYHS SQ Last administered on 11/16/18at 21: 01; Start 11/16/18 at 21:00 Dextrose (Dextrose 50%-Water Syringe) 12.5 gm PRN Q15MIN PRN IV SEE COMMENTS; Start 11/16/18 at 20:45 Morphine Sulfate (Morphine Sulfate) 2 mg PRN Q2HR PRN IV PAIN; Start 11/16/18 at 23:45 Nitroglycerin (Nitro-Bid Oint) 1 inch Q6HRS TP Last administered on 11/17/18at 06 :19; Start 11/17/18 at 00:00 Active Scripts Active Reported Aspirin 325 Mg Tablet 1 Tab PO DAILY Coreg (Carvedilol) 3.125 Mg Tablet 3.125 Mg PO BIDWMEALS Magnesium (Magnesium Oxide) 400 Mg Capsule 400 Mg PO DAILY Levothyroxine Sodium 175 Mcg Tablet 175 Mcg PO DAILYAC Plavix (Clopidogrel Bisulfate) 75 Mg Tablet 75 Mg PO DAILY Calcium Carbonate 500 Mg Tablet 500 Mg PO BID Lipitor (Atorvastatin Calcium) 80 Mg Tablet 40 Mg PO HS Keppra (Levetiracetam) 1,000 Mg Tablet 1 Tab PO BID Endocet 10-325 Mg Tablet (Oxycodone Hcl/Acetaminophen) 1 Each Tablet 1 Tab PO QID Flovent 110MCG Hfa (Fluticasone Propionate) 12 Gm Aer.w.adap 2 Puff IH BID Zolpidem Tartrate 5 Mg Tablet 1 Tab PO QHS Mirapex (Pramipexole Di-Hcl) 0.25 Mg Tablet 1 Tab PO DAILY Tylenol (Acetaminophen) 325 Mg Tablet 650 Mg PO PRN Q6HRS PRN Famotidine 20 Mg Tablet 20 Mg PO HS Ventolin Hfa Inhaler (Albuterol Sulfate) 18 Gm Hfa.aer.ad 1 Puff INH Q6HRS PRN Vitals/I & O Vital Sign - Last 24 Hours 11/16/18 11/16/18 11/16/18 11/16/18 11:50 12:15 15:00 19:40 Temp 98.4 98.0 98.4 98.0 Pulse 92 92 92 Resp 20 16 16 B/P (MAP) 186/85 (118) 173/78 (109) 198/76 (116) Pulse Ox 99 100 99 O2 Delivery Nasal Cannula Nasal Cannula Nasal Cannula off unit O2 Flow Rate 2.0 2.0 2.0 11/16/18 11/16/18 11/16/18 11/16/18 20:10 20:16 23:09 23:59 Temp 97.8 97.7 97.8 97.7 Pulse 105 95 95 Resp 16 18 B/P (MAP) 168/77 (107) 160/74 (102) 160/74 Pulse Ox 100 96 O2 Delivery Nasal Cannula Nasal Cannula Nasal Cannula O2 Flow Rate 3.0 3.0 2.0 11/17/18 11/17/18 11/17/18 11/17/18 03:35 06:19 07:00 08:00 Temp 98.4 98.6 98.4 98.6 Pulse 88 96 87 Resp 17 18 B/P (MAP) 158/72 (100) 158/72 169/77 (107) Pulse Ox 100 99 O2 Delivery Nasal Cannula Room Air Nasal Cannula O2 Flow Rate 2.0 2.0 11/17/18 10:44 Temp 98.6 98.6 Pulse 82 Resp 18 B/P (MAP) 176/80 (112) Pulse Ox 99 O2 Delivery Room Air Intake and Output 11/16/18 11/16/18 11/17/18 15:00 23:00 07:00 Intake Total 120 ml 240 ml Output Total 350 ml 300 ml Balance -350 ml 120 ml -60 ml TONI LEE MD Nov 17, 2018 11:44
--- NOTE | 2018-11-17 12:33 | PDOC2 ---
CONSULT Date of Consult Date of Consult DATE: 11/17/18 TIME: 12:28 Reason for Consult Reason for Consult: Diastolic heart failure Referring Physician Referring Physician: Dr. Guerin Identification/Chief Complaint Chief Complaint Shortness of breath Source Source: Chart review, Patient History of Present Illness Reason for Visit: The patient is a 53-year-old morbidly obese male who is admitted through the emergency room yesterday due to episodes of increasing shortness of breath. The patient has end-stage renal disease and is on hemodialysis but has not had dialysis prior to admission for 8 days. He reports shortness of breath associated with this but no chest pain. He received dialysis yesterday and is feeling much better. His shortness of breath has significantly improved. He is now resting fairly comfortably in bed. Past history is significant for coronary artery disease with a cardiac catheterization on 09/18/18 that showed moderate disease in the LAD with small diagonal branch disease, moderate disease in left circumflex with a chronically occluded distal stent. The right coronary was a small nondominant vessel with a mid 70% lesion. Echocardiogram from 06/28/18 showed an ejection fraction of 50-55% with mild left ventricular hypertrophy. Past Medical History Cardiovascular: AFIB, CAD, CHF, HTN, SD, Hyperlipidemia, Other Pulmonary: COPD CENTRAL NERVOUS SYSTEM: Dementia, Periperal neuropathy, Seizure, TIA GI: Diverticulosis, Other Heme/Onc: Anemia NOS Hepatobiliary: No pertinent hx Psych: Anxiety, Depression Musculoskeletal: Osteoarthritis Rheumatologic: Rheumatoid arthritis Infectious disease: No pertinent hx Renal/: Chronic renal failure Endocrine: Diabetes, Hypothyroidism, Hyperparathyroidism Past Surgical History Past Surgical History: Cataract Removal, Total knee replacement, Other ( cardiac stents. Left BKA.) Family History Family History: Diabetes, Hypertension Social History Social History: Parent ALCOHOL: none Drugs: None Lives: with Family Current Medications Current Medications Current Medications Furosemide (Lasix) 40 mg 1X ONCE IVP Last administered on 11/16/18at 11:19; Start 11/16/18 at 11:00; Stop 11/16/18 at 11:01; Status DC Nitroglycerin (Nitro-Bid Oint) 1 inch 1X ONCE TP Last administered on at 11:; Start 11/16/18 at 11:00; Stop 11/16/18 at 11:01; Status DC Sodium Chloride 1,000 ml @ 1,000 mls/hr Q1H PRN IV hypotension; Start 11/16/18 at 14:13; Stop 11/16/18 at 20:12; Status DC Albumin Human 200 ml @ 200 mls/hr 1X PRN PRN IV Hypotension; Start 11/16/18 at 14:15; Stop 11/16/18 at 20:14; Status DC Sodium Chloride (Normal Saline Flush) 10 ml 1X PRN PRN IV AP catheter pack; Start 11/16/18 at 14:15; Stop 11/17/18 at 14:14 Sodium Chloride (Normal Saline Flush) 10 ml 1X PRN PRN IV 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; Start 11/16/18 at 14:15; Stop 11/17/18 at 14:14 Sodium Chloride 1,000 ml @ 400 mls/hr Q2H30M PRN IV PATENCY; Start 11/16/18 at 14:13; Stop 11/17/18 at 02:12; Status DC Info (PHARMACY MONITORING -- do not chart) 1 each PRN DAILY PRN MC SEE COMMENTS ; Start 11/16/18 at 14:15; Status Cancel Info (PHARMACY MONITORING -- do not chart) 1 each PRN DAILY PRN MC SEE COMMENTS ; Start 11/16/18 at 14:15 Darbepoetin Jace (Aranesp) 60 mcg WEEKLYHS SQ Last administered on 11/16/18at 21: 01; Start 11/16/18 at 21:00 Dextrose (Dextrose 50%-Water Syringe) 12.5 gm PRN Q15MIN PRN IV SEE COMMENTS; Start 11/16/18 at 20:45 Morphine Sulfate (Morphine Sulfate) 2 mg PRN Q2HR PRN IV PAIN; Start 11/16/18 at 23:45 Nitroglycerin (Nitro-Bid Oint) 1 inch Q6HRS TP Last administered on 11/17/18at 06 :19; Start 11/17/18 at 00:00 Active Scripts Active Reported Aspirin 325 Mg Tablet 1 Tab PO DAILY Coreg (Carvedilol) 3.125 Mg Tablet 3.125 Mg PO BIDWMEALS Magnesium (Magnesium Oxide) 400 Mg Capsule 400 Mg PO DAILY Levothyroxine Sodium 175 Mcg Tablet 175 Mcg PO DAILYAC Plavix (Clopidogrel Bisulfate) 75 Mg Tablet 75 Mg PO DAILY Calcium Carbonate 500 Mg Tablet 500 Mg PO BID Lipitor (Atorvastatin Calcium) 80 Mg Tablet 40 Mg PO HS Keppra (Levetiracetam) 1,000 Mg Tablet 1 Tab PO BID Endocet 10-325 Mg Tablet (Oxycodone Hcl/Acetaminophen) 1 Each Tablet 1 Tab PO QID Flovent 110MCG Hfa (Fluticasone Propionate) 12 Gm Aer.w.adap 2 Puff IH BID Zolpidem Tartrate 5 Mg Tablet 1 Tab PO QHS Mirapex (Pramipexole Di-Hcl) 0.25 Mg Tablet 1 Tab PO DAILY Tylenol (Acetaminophen) 325 Mg Tablet 650 Mg PO PRN Q6HRS PRN Famotidine 20 Mg Tablet 20 Mg PO HS Ventolin Hfa Inhaler (Albuterol Sulfate) 18 Gm Hfa.aer.ad 1 Puff INH Q6HRS PRN Allergies Allergies: Coded Allergies: iodine (Verified Allergy, Severe, THROAT SWELLING, 09/24/18) lisinopril (Verified Allergy, Severe, 09/24/18) Fish Containing Products (Verified Allergy, Intermediate, 09/24/18) Penicillins (Verified Allergy, Intermediate, SEE COMMENT, 09/24/18) Tolerates meropenem and Cephalosporins piperacillin (Verified Allergy, Intermediate, Hives, 09/24/18) Tolerates meropenem tazobactam (Verified Allergy, Intermediate, 09/24/18) ROS General: YES: Fatigue Respiratory: YES: Shortness of breath, SOB with excertion Physical Exam General: mild distress HEENT: Atraumatic Lungs: Other (decreased breath sounds) Heart: Other (irregular rhythm) Abdomen: Normal bowel sounds Vitals VITALS Vital Signs Date Time Temp Pulse Resp B/P (MAP) Pulse Ox O2 Delivery O2 Flow Rate FiO2 11/17/18 10:44 98.6 82 18 176/80 (112) 99 Room Air 98.6 11/17/18 08:00 2.0 Labs Labs Laboratory Tests Test 11/16/18 10:28 11/16/18 12:00 11/16/18 12:04 11/16/18 20:50 White Blood Count 5.0 x10^3/uL (4.0-11.0) Red Blood Count 2.63 x10^6/uL (4.30-5.70) Hemoglobin 7.7 g/dL (13.0-17.5) Hematocrit 23.6 % (39.0-53.0) Mean Corpuscular Volume 90 fL (79-100) Mean Corpuscular Hemoglobin 29 pg (25-35) Mean Corpuscular Hemoglobin Concent 33 g/dL (31-37) Red Cell Distribution Width 16.4 % (11.5-14.5) Platelet Count 141 x10^3/uL (140-400) Neutrophils (%) (Auto) 72 % (31-73) Lymphocytes (%) (Auto) 14 % (24-48) Monocytes (%) (Auto) 9 % (0-9) Eosinophils (%) (Auto) 4 % (0-3) Basophils (%) (Auto) 2 % (0-3) Neutrophils # (Auto) 3.6 x10^3uL (1.8-7.7) Lymphocytes # (Auto) 0.7 x10^3/uL (1.0-4.8) Monocytes # (Auto) 0.4 x10^3/uL (0.0-1.1) Eosinophils # (Auto) 0.2 x10^3/uL (0.0-0.7) Basophils # (Auto) 0.1 x10^3/uL (0.0-0.2) Prothrombin Time 13.9 SEC (11.7-14.0) Prothromb Time International Ratio 1.1 (0.8-1.1) Sodium Level 141 mmol/L (136-145) Potassium Level 4.9 mmol/L (3.5-5.1) Chloride Level 106 mmol/L (98-107) Carbon Dioxide Level 23 mmol/L (21-32) Anion Gap 12 (6-14) Blood Urea Nitrogen 79 mg/dL (8-26) Creatinine 6.0 mg/dL (0.7-1.3) Estimated GFR (Cockcroft-Gault) 12.0 BUN/Creatinine Ratio 13 (6-20) Glucose Level 167 mg/dL (70-99) Lactic Acid Level 0.6 mmol/L (0.4-2.0) Calcium Level 8.9 mg/dL (8.5-10.1) Total Bilirubin 0.6 mg/dL (0.2-1.0) Aspartate Amino Transf (AST/SGOT) 25 U/L (15-37) Alanine Aminotransferase (ALT/SGPT) 23 U/L (16-63) Alkaline Phosphatase 73 U/L (46-116) Troponin I Quantitative 0.046 ng/mL (0.000-0.055) NC-Tii-L-Type Natriuretic Peptide 43186 pg/mL (0-124) Total Protein 7.6 g/dL (6.4-8.2) Albumin 3.2 g/dL (3.4-5.0) Albumin/Globulin Ratio 0.7 (1.0-1.7) Procalcitonin 0.10 ng/mL (0.00-0.10) Influenza Type A Antigen Negative (NEGATIVE) Influenza Type B Antigen Negative (NEGATIVE) Urine Collection Type Unknown Urine Color Yellow Urine Clarity Clear Urine pH 7.0 Urine Specific [place] 1.015 Urine Protein >=300 mg/dL (NEG-TRACE) Urine Glucose (UA) 100 mg/dL (NEG) Urine Ketones (Stick) Negative mg/dL (NEG) Urine Blood Trace (NEG) Urine Nitrite Negative (NEG) Urine Bilirubin Negative (NEG) Urine Urobilinogen Dipstick 1.0 mg/dL (0.2 mg/dL) Urine Leukocyte Esterase Negative (NEG) Urine RBC 6-10 /HPF (0-2) Urine WBC 1-4 /HPF (0-4) Urine Squamous Epithelial Cells Many /LPF Urine Bacteria Few /HPF (0-FEW) Urine Hyaline Casts Few /HPF Urine Mucus Slight /LPF Glucose (Fingerstick) 89 mg/dL (70-99) Test 11/17/18 07:45 11/17/18 11:24 Glucose (Fingerstick) 150 mg/dL (70-99) 157 mg/dL (70-99) Laboratory Tests Test 11/16/18 20:50 11/17/18 07:45 11/17/18 11:24 Glucose (Fingerstick) 89 mg/dL (70-99) 150 mg/dL (70-99) 157 mg/dL (70-99) Images Images Chest x-ray shows cardiomegaly. Assessment/Plan Assessment/Plan 1. End-stage renal disease. Patient is dismissed 8 days of hemodialysis and post dialysis yesterday is feeling much better. We'll continue dialysis as per the renal service. 2. Diastolic heart failure. This is largely on the basis of fluid overload from missing dialysis. Would continue baseline medications. Dialysis as per the renal service. 3. Coronary artery disease. No chest pain. No significant elevation in troponin. Recent catheterization as above. 4. History of atrial fibrillation. Rate controlled. Continue medications. 5. Hyperlipidemia. Continue statin medications. 6. Diabetes mellitus as per the primary service. 7. TIA history. Continue present medications. 8. Peripheral arterial disease. Status post left BKA. Continue medical treatment. 9. Morbid obesity. Thank you for allowing us to participate in the care of your patient. CITLALI STRINGER MD Nov 17, 2018 12:33
[2018-11-17 14:05] VITALS: BP 176/79
[2018-11-17] MEDS ORDERED: ACETAMINOPHEN 325 MG TABLET. PO PRN (16:00)
[2018-11-17] MEDS: CARVEDILOL 3.125 MG TABLET. PO SCH (16:27)
[2018-11-17] MEDS: MAGNESIUM OXIDE 400 MG TABLET PO SCH (16:27)
[2018-11-17] MEDS: ASPIRIN 325 MG TABLET PO SCH (16:27)
[2018-11-17] MEDS: CLOPIDOGREL BISULFATE 75 MG TABLET PO SCH (16:27)
[2018-11-17] MEDS: PRAMIPEXOLE 0.25 MG TABLET. PO SCH (16:28)
[2018-11-17] MEDS: LEVOTHYROXINE 175 MCG TABLET PO SCH (16:28)
[2018-11-17] MEDS: oxyCODONE/APAP 10/325 1 TAB TABLET PO SCH ×2 (16:28→20:48)
[2018-11-17 19:40] VITALS: BP 121/58
[2018-11-17] MEDS: BUDESONIDE 0.5 MG/2 ML NEBU. NEB SCH (20:09)
[2018-11-17] MEDS: ZOLPIDEM 5 MG TABLET. PO SCH (20:48)
[2018-11-17] MEDS: CALCIUM CARBONATE 500 MG TABLET PO SCH (20:48)
[2018-11-17] MEDS: ATORVASTATIN CALCIUM 40 MG TABLET. PO SCH (20:48)
[2018-11-17] MEDS: levETIRAcetam 500 MG TABLET PO SCH (20:48)
[2018-11-17] MEDS: FAMOTIDINE 20 MG TABLET. PO SCH (20:48)
[2018-11-17] MEDS: HEPARIN for SUB-Q USE 5,000 UNIT/ML VIAL. SQ SCH (20:49)
[2018-11-17 23:00] VITALS: BP 147/68
[2018-11-18] MEDS: MORPHINE SULFATE 2 MG/ML VIAL. IV PRN ×2 (01:39→08:11)
[2018-11-18 03:25] VITALS: BP 153/70
[2018-11-18] MEDS: NITROGLYCERIN OINT 1 GM PACKET. TP SCH ×4 (06:00→18:00)
[2018-11-18 07:33] VITALS: BP 149/73
[2018-11-18] MEDS: BUDESONIDE 0.5 MG/2 ML NEBU. NEB SCH ×2 (07:42→19:58)
[2018-11-18] MEDS: PRAMIPEXOLE 0.25 MG TABLET. PO SCH (08:17)
[2018-11-18] MEDS: CLOPIDOGREL BISULFATE 75 MG TABLET PO SCH (08:18)
[2018-11-18] MEDS: levETIRAcetam 500 MG TABLET PO SCH ×2 (08:18→20:47)
[2018-11-18] MEDS: ASPIRIN 325 MG TABLET PO SCH (08:18)
[2018-11-18] MEDS: CALCIUM CARBONATE 500 MG TABLET PO SCH ×2 (08:18→20:47)
[2018-11-18] MEDS: CARVEDILOL 3.125 MG TABLET. PO SCH ×2 (08:19→16:26)
[2018-11-18] MEDS: MAGNESIUM OXIDE 400 MG TABLET PO SCH (08:19)
[2018-11-18] MEDS: LEVOTHYROXINE 175 MCG TABLET PO SCH (08:19)
[2018-11-18] MEDS: oxyCODONE/APAP 10/325 1 TAB TABLET PO SCH ×4 (08:20→20:48)
[2018-11-18] MEDS: HEPARIN for SUB-Q USE 5,000 UNIT/ML VIAL. SQ SCH ×2 (08:27→20:58)
--- NOTE | 2018-11-18 08:38 | EKG ---
[facility] [address] [place] [address] Test Date: 2018-11-18 Test Time: 08:09:04 Pat Name: BHAVYA WILKES Department: Room: 203 1 Gender: M Material Movers: : 1965 Requested By: CITLALI STRINGER Order Number: [id number] Reading MD: Avni Kaur MD Measurements Intervals [place] Rate: 83 P: 90 IN: 186 QRS: -64 QRSD: 84 T: 63 QT: 388 QTc: 462 Interpretive Statements SINUS RHYTHM ABNORMAL LEFT AXIS DEVIATION QRS(T) CONTOUR ABNORMALITY CONSIDER ANTEROSEPTAL MYOCARDIAL DAMAGE CONSISTENT WITH INFERIOR INFARCT PROBABLY OLD ABNORMAL ECG Electronically Signed On 11-18-2018 15:38:26 CDT by Avni Kaur MD
[2018-11-18 11:21] VITALS: BP 159/72
--- NOTE | 2018-11-18 12:12 | PDOC ---
SUBJECTIVE ROS A per RN c/o CP this am, given Morphine, , vomited once after Morphine OBJECTIVE Vital Signs Vital Signs Date Time Temp Pulse Resp B/P (MAP) Pulse Ox O2 Delivery O2 Flow Rate FiO2 11/18/18 11:21 97.6 81 18 159/72 (101) 98 Nasal Cannula 2.0 97.6 I & 0 Intake and Output 11/18/18 06:59 Intake Total 1540 ml Output Total 500 ml Balance 1040 ml Intake Oral 1540 ml Output Urine Total 500 ml PHYSICAL EXAM Physical Exam GENERAL: NAD , Morbidly obese HEENT-OM moist NECK- Supple HEART: Distant S1, S2 with a soft S3. LUNGS: Bibasilar crackles. ABDOMEN: Soft, obese. EXTREMITIES: The right foot has a wound VAC in place. 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 SKIN No rash NEURO- AXO DIAGNOSIS/ASSESSMENT Assessment & Plan ESRD- On HD ELIJAH Jordantommy TTS Severe Non Compliance ,Last OP Dialysis 8 days back Dialyzed in hospital on 11/16 Currently No indication for HD today Anemia- On KEITH on his HD days, but due to non compliance misses multiple doses Shortness of breath- Misses HD Hx of CHF/CAD CAD/CHF Chest pain this am, defer to primary Rt Foot wound/Lt BKA Non Compliance COMMENT/RELEVANT DATA Meds Current Medications Medications (Trade) Dose Ordered Sig/[place] Start Time Stop Time Status Last Admin Dose Admin Acetaminophen (Tylenol) 650 mg PRN Q6HRS PRN 11/17/18 16:00 11/18/18 01:44 650 MG Albumin Human 200 ml @ 200 mls/hr 1X PRN PRN 11/16/18 14:15 11/16/18 20:14 DC Albuterol Sulfate (Ventolin Neb Soln) 2.5 mg PRN Q6HRS PRN 11/17/18 16:15 Aspirin ([place] Aspirin) 325 mg DAILY 11/17/18 17:00 11/18/18 08:18 325 MG Atorvastatin Calcium (Lipitor) 40 mg QHS 11/17/18 21:00 11/17/18 20:48 40 MG Budesonide (Pulmicort) 0.5 mg RTBID 11/17/18 20:00 11/18/18 07:42 0.5 MG Calcium Carbonate/ Glycine (Oscal) 500 mg BID 11/17/18 21:00 11/18/18 08:18 500 MG Carvedilol (Coreg) 3.125 mg BIDWMEALS 11/17/18 17:00 11/18/18 08:19 3.125 MG Clopidogrel Bisulfate (Plavix) 75 mg DAILY 11/17/18 17:00 11/18/18 08:18 75 MG Darbepoetin Jace (Aranesp) 60 mcg WEEKLYHS 11/16/18 21:00 11/16/18 21:01 60 MCG Dextrose (Dextrose 50%-Water Syringe) 12.5 gm PRN Q15MIN PRN 11/16/18 20:45 Famotidine (Pepcid) 20 mg HS 11/17/18 21:00 11/17/18 20:48 20 MG Furosemide (Lasix) 40 mg 1X ONCE 11/16/18 11:00 11/16/18 11:01 DC 11/16/18 11:19 40 MG Heparin Sodium (Porcine) (Heparin Sodium) 5,000 unit Q12HR 11/17/18 21:00 11/18/18 08:27 5,000 UNIT Info (PHARMACY MONITORING -- do not chart) 1 each PRN DAILY PRN 11/16/18 14:15 Levetiracetam (Keppra) 1,000 mg BID 11/17/18 21:00 11/18/18 08:18 1,000 MG Levothyroxine Sodium (Synthroid) 175 mcg DAILYAC 11/17/18 16:30 11/18/18 08:19 175 MCG Magnesium Oxide (Magnesium Oxide) 400 mg DAILY 11/17/18 17:00 11/18/18 08:19 400 MG Morphine Sulfate (Morphine Sulfate) 2 mg PRN Q2HR PRN 11/16/18 23:45 11/18/18 08:11 2 MG Nitroglycerin (Nitro-Bid Oint) 1 inch Q6HRS 11/17/18 00:00 11/18/18 08:19 1 INCH Oxycodone/ Acetaminophen (Percocet 10/325) 1 tab QID 11/17/18 17:00 11/17/18 20:48 1 TAB Pramipexole Dihydrochloride (miraPEX) 0.25 mg DAILY 11/17/18 17:00 11/18/18 08:17 0.25 MG Sodium Chloride 1,000 ml @ 400 mls/hr Q2H30M PRN 11/16/18 14:13 11/17/18 02:12 DC Sodium Chloride (Normal Saline Flush) 10 ml 1X PRN PRN 11/16/18 14:15 11/17/18 14:14 DC Zolpidem Tartrate (Ambien) 5 mg QHS 11/17/18 21:00 11/17/18 20:48 5 MG Lab Laboratory Tests Test 11/17/18 16:28 11/17/18 20:38 11/18/18 07:35 11/18/18 09:05 Glucose (Fingerstick) 128 mg/dL (70-99) 143 mg/dL (70-99) 125 mg/dL (70-99) Troponin I Quantitative 0.025 ng/mL (0.000-0.055) Test 11/18/18 11:38 Glucose (Fingerstick) 153 mg/dL (70-99) Results All relevant outside records, renal labs, imaging studies, telemetry/EKG's were reviewed. MINA RICHARDSON MD Nov 18, 2018 12:12
--- NOTE | 2018-11-18 12:12 | PDOC ---
JW SILVERMAN PRINT CUTTER 11/18/18 1212: CARDIO Progress Notes Date and Time Date of Service 11/18/18 Time of Evaluation 1130 Subjective Subjective: No shortness of breath, No Palpitations, Other (episode of chest pain this morning. Was given morphine then vomited.) Vitals Vitals Vital Signs Date Time Temp Pulse Resp B/P (MAP) Pulse Ox O2 Delivery O2 Flow Rate FiO2 11/18/18 11:21 97.6 81 18 159/72 (101) 98 Nasal Cannula 2.0 97.6 Weight Weight [ ] Input and Output Intake and Output Intake and Output 11/18/18 07:00 Intake Total 1540 ml Output Total 500 ml Balance 1040 ml Intake Oral 1540 ml Output Urine Total 500 ml Laboratory Labs Laboratory Tests Test 11/17/18 16:28 11/17/18 20:38 11/18/18 07:35 11/18/18 09:05 Glucose (Fingerstick) 128 mg/dL (70-99) 143 mg/dL (70-99) 125 mg/dL (70-99) Troponin I Quantitative 0.025 ng/mL (0.000-0.055) Test 11/18/18 11:38 Glucose (Fingerstick) 153 mg/dL (70-99) Microbiology Micro Microbiology 11/16/18 Blood Culture - Preliminary, Resulted NO GROWTH AFTER 2 DAYS Physical Exam HEENT: Neck Supple W Full Motion Chest: Symmetric LUNGS: Clear to Auscultation, Other (diminished bases) Heart: S1S2, RRR Abdomen: Soft N/T, Other (obese) Extremities: Other (left BKA, right trace LE edema ) Neurology: alert, oriented, follow commands Assessment Assessment 1. Acute on chronic respiratory failure secondary to a/c HF; improved 2. Acute on chronic diastolic heart failure; secondary to 8 days of missed HD 3. ESRD on HD, anemia of chronic disease 4. Atypical CP. AMI ruled out 5. CAD; [facility] last month without intervention. Moderate disease in the LAD. Small nondominant RCA with 70% proximal occlusion. 6. PAFIB; maintaining SR 7. Hypertension; mildly elevated 8. Hyperlipidemia; statin 9. Diabetes, II 10. PAD s/p left BKA 11. Morbid obesity 12. Noncompliance Recommendations Continue secondary prevention measures ASA for stroke prevention. Coreg. Continue with Plavix Fluid offloading/management via HD as per nephrology Add Imdur. Reinforced med compliance. ROB LOOMIS MD 11/18/18 1726: CARDIO Progress Notes Plan Plan Pt. seen and examined. Agree with above Project Financial Analyst note Well known to our service. He struggles with non-cardiac heart pounding "pain" at night time w/o any obvious palpitations or BP issues. Cath about 1 month ago w/o clear intervenable lesions. Supportive care. Poor intermediate prognosis, he was eating slices of pizza between his HD runs and likely does not have the insight into his situation. JW SILVERMAN APRN Nov 18, 2018 12:12 ROB LOOMIS MD Nov 18, 2018 17:26
--- NOTE | 2018-11-18 12:32 | NUR ---
SS following for discharge planning. SS reviewed pt chart. Pt is from home with spouse and is currently requiring oxygen. Pt was recently at [facility] skilled services and was discharged to home with [facility] and [facility] IV infusion. SS will continue to follow for discharge planning.
--- NOTE | 2018-11-18 14:50 | PDOC ---
PROGRESS NOTES Chief Complaint Chief Complaint volume overload secondary to non compliance with dialysis Acute febrile illness? no evidence of infection on initial work up and procalcitonin is negative. Anemia of chronic illness Elevated BNP which is very common in ESRD on HD patients Plan; follow recommendations from franchise business consultant HD as per nephrology continue home meds and reinforce the importance of adherence to treatment. History of Present Illness History of Present Illness Patient with no acute events overnight, patient with long standing history of non compliance, stressed the importance of staying adherent to his treatment plan to avoid further complications from his medical comrobidities. Vitals Vitals Vital Signs Date Time Temp Pulse Resp B/P (MAP) Pulse Ox O2 Delivery O2 Flow Rate FiO2 11/18/18 11:21 97.6 81 18 159/72 (101) 98 Nasal Cannula 2.0 97.6 Physical Exam General: mild distress Heart: Other (irregular rhythm) Lungs: Clear Abdomen: Normal bowel sounds Extremities: No clubbing, No cyanosis Skin: No rashes, No breakdown Labs LABS Laboratory Tests Test 11/17/18 16:28 11/17/18 20:38 11/18/18 07:35 11/18/18 09:05 Glucose (Fingerstick) 128 mg/dL (70-99) 143 mg/dL (70-99) 125 mg/dL (70-99) Troponin I Quantitative 0.025 ng/mL (0.000-0.055) Test 11/18/18 11:38 Glucose (Fingerstick) 153 mg/dL (70-99) Comment Review of Relevant I have reviewed the following items lila (where applicable) has been applied. Labs Laboratory Tests Test 11/16/18 20:50 11/17/18 07:45 11/17/18 11:24 11/17/18 16:28 Glucose (Fingerstick) 89 mg/dL (70-99) 150 mg/dL (70-99) 157 mg/dL (70-99) 128 mg/dL (70-99) Test 11/17/18 20:38 11/18/18 07:35 11/18/18 09:05 11/18/18 11:38 Glucose (Fingerstick) 143 mg/dL (70-99) 125 mg/dL (70-99) 153 mg/dL (70-99) Troponin I Quantitative 0.025 ng/mL (0.000-0.055) Laboratory Tests Test 11/17/18 16:28 11/17/18 20:38 11/18/18 07:35 11/18/18 09:05 Glucose (Fingerstick) 128 mg/dL (70-99) 143 mg/dL (70-99) 125 mg/dL (70-99) Troponin I Quantitative 0.025 ng/mL (0.000-0.055) Test 11/18/18 11:38 Glucose (Fingerstick) 153 mg/dL (70-99) Microbiology 11/16/18 Blood Culture - Preliminary, Resulted NO GROWTH AFTER 2 DAYS Medications Current Medications Furosemide (Lasix) 40 mg 1X ONCE IVP Last administered on 11/16/18at 11:19; Start 11/16/18 at 11:00; Stop 11/16/18 at 11:01; Status DC Nitroglycerin (Nitro-Bid Oint) 1 inch 1X ONCE TP Last administered on at 11:19; Start 11/16/18 at 11:00; Stop 11/16/18 at 11:01; Status DC Sodium Chloride 1,000 ml @ 1,000 mls/hr Q1H PRN IV hypotension; Start 11/16/18 at 14:13; Stop 11/16/18 at 20:12; Status DC Albumin Human 200 ml @ 200 mls/hr 1X PRN PRN IV Hypotension; Start 11/16/18 at 14:15; Stop 11/16/18 at 20:14; Status DC Sodium Chloride (Normal Saline Flush) 10 ml 1X PRN PRN IV AP catheter pack; Start 11/16/18 at 14:15; Stop 11/17/18 at 14:14; Status DC Sodium Chloride (Normal Saline Flush) 10 ml 1X PRN PRN IV BUCCARO catheter pack; Start 11/16/18 at 14:15; Stop 11/17/18 at 14:14; Status DC Sodium Chloride 1,000 ml @ 400 mls/hr Q2H30M PRN IV PATENCY; Start 11/16/18 at 14:13; Stop 11/17/18 at 02:12; Status DC Info (PHARMACY MONITORING -- do not chart) 1 each PRN DAILY PRN MC SEE COMMENTS ; Start 11/16/18 at 14:15; Status Cancel Info (PHARMACY MONITORING -- do not chart) 1 each PRN DAILY PRN MC SEE COMMENTS ; Start 11/16/18 at 14:15 Darbepoetin Jace (Aranesp) 60 mcg WEEKLYHS SQ Last administered on 11/16/18at 21: 01; Start 11/16/18 at 21:00 Dextrose (Dextrose 50%-Water Syringe) 12.5 gm PRN Q15MIN PRN IV SEE COMMENTS; Start 11/16/18 at 20:45 Morphine Sulfate (Morphine Sulfate) 2 mg PRN Q2HR PRN IV PAIN Last administered on 11/18/18at 08:11; Start 11/16/18 at 23:45 Nitroglycerin (Nitro-Bid Oint) 1 inch Q6HRS TP Last administered on 11/18/18 08 :19; Start 11/17/18 at 00:00 Acetaminophen (Tylenol) 650 mg PRN Q6HRS PRN PO FEVER Last administered on 01:44; Start 11/17/18 at 16:00 Aspirin ([place]ourdes Aspirin) 325 mg DAILY PO Last administered on 11/18/18 08:18; Start 11/17/18 at 17:00 Calcium Carbonate/ Glycine (Oscal) 500 mg BID PO Last administered on 11/18/18 08:18; Start 11/17/18 at 21:00 Carvedilol (Coreg) 3.125 mg BIDWMEALS PO Last administered on 11/18/18 08:19; Start 11/17/18 at 17:00 Clopidogrel Bisulfate (Plavix) 75 mg DAILY PO Last administered on 11/18/18 08: 18; Start 11/17/18 at 17:00 Famotidine (Pepcid) 20 mg HS PO Last administered on 11/17/18 20:48; Start 11/17 at 21:00 Levothyroxine Sodium (Synthroid) 175 mcg DAILYAC PO Last administered on 08:19; Start 11/17/18 at 16:30 Oxycodone/ Acetaminophen (Percocet 10/325) 1 tab QID PO Last administered on 20:48; Start 11/17/18 at 17:00 Zolpidem Tartrate (Ambien) 5 mg QHS PO Last administered on 11/17/18 20:48; Start 11/17/18 at 21:00 Albuterol Sulfate (Ventolin Neb Soln) 2.5 mg PRN Q6HRS PRN NEB SHORTNESS OF BREATH; Start 11/17/18 at 16:15 Atorvastatin Calcium (Lipitor) 40 mg QHS PO Last administered on 11/17/18at 20:48 ; Start 11/17/18 at 21:00 Budesonide (Pulmicort) 0.5 mg RTBID NEB Last administered on 11/18/18 07:42; Start 11/17/18 at 20:00 Levetiracetam (Keppra) 1,000 mg BID PO Last administered on 11/18/18 08:18; Start 11/17/18 at 21:00 Magnesium Oxide (Magnesium Oxide) 400 mg DAILY PO Last administered on 08:19; Start 11/17/18 at 17:00 Pramipexole Dihydrochloride (miraPEX) 0.25 mg DAILY PO Last administered on 11/18 08:17; Start 11/17/18 at 17:00 Heparin Sodium (Porcine) (Heparin Sodium) 5,000 unit Q12HR SQ Last administered on 11/18/18 08:27; Start 11/17/18 at 21:00 Active Scripts Active Reported Aspirin 325 Mg Tablet 1 Tab PO DAILY Coreg (Carvedilol) 3.125 Mg Tablet 3.125 Mg PO BIDWMEALS Magnesium (Magnesium Oxide) 400 Mg Capsule 400 Mg PO DAILY Levothyroxine Sodium 175 Mcg Tablet 175 Mcg PO DAILYAC Plavix (Clopidogrel Bisulfate) 75 Mg Tablet 75 Mg PO DAILY Calcium Carbonate 500 Mg Tablet 500 Mg PO BID Lipitor (Atorvastatin Calcium) 80 Mg Tablet 40 Mg PO HS Keppra (Levetiracetam) 1,000 Mg Tablet 1 Tab PO BID Endocet 10-325 Mg Tablet (Oxycodone Hcl/Acetaminophen) 1 Each Tablet 1 Tab PO QID Flovent 110MCG Hfa (Fluticasone Propionate) 12 Gm Aer.w.adap 2 Puff IH BID Zolpidem Tartrate 5 Mg Tablet 1 Tab PO QHS Mirapex (Pramipexole Di-Hcl) 0.25 Mg Tablet 1 Tab PO DAILY Tylenol (Acetaminophen) 325 Mg Tablet 650 Mg PO PRN Q6HRS PRN Famotidine 20 Mg Tablet 20 Mg PO HS Ventolin Hfa Inhaler (Albuterol Sulfate) 18 Gm Hfa.aer.ad 1 Puff INH Q6HRS PRN Vitals/I & O Vital Sign - Last 24 Hours 11/17/18 11/17/18 11/17/18 11/17/18 16:27 16:28 17:53 19:40 Temp 98.3 98.3 Pulse 60 82 Resp 18 18 20 B/P (MAP) 176/79 121/58 (79) Pulse Ox 99 99 98 O2 Delivery Nasal Cannula Nasal Cannula O2 Flow Rate 2.0 2.0 2.0 11/17/18 11/17/18 11/17/18 11/17/18 20:00 20:12 21:48 23:00 Temp 98.3 98.3 Pulse 82 Resp 20 B/P (MAP) 147/68 (94) Pulse Ox 98 O2 Delivery Nasal Cannula Nasal Cannula Nasal Cannula Nasal Cannula O2 Flow Rate 3.0 3.0 2.0 11/18/18 11/18/18 11/18/18 11/18/18 03:25 07:33 07:43 08:00 Temp 97.9 97.9 97.9 97.9 Pulse 83 86 Resp 20 12 B/P (MAP) 153/70 (97) 149/73 (98) Pulse Ox 97 93 O2 Delivery Nasal Cannula Room Air Nasal Cannula Nasal Cannula O2 Flow Rate 2.0 3.0 2.0 11/18/18 11/18/18 11/18/18 11/18/18 08:11 08:19 08:19 08:41 Pulse 86 86 Resp 20 20 B/P (MAP) 149/73 149/73 11/18/18 11:21 Temp 97.6 97.6 Pulse 81 Resp 18 B/P (MAP) 159/72 (101) Pulse Ox 98 O2 Delivery Nasal Cannula O2 Flow Rate 2.0 Intake and Output 11/17/18 11/17/18 11/18/18 15:00 23:00 07:00 Intake Total 180 ml 800 ml 560 ml Output Total 500 ml Balance 180 ml 300 ml 560 ml TONI LEE MD Nov 18, 2018 14:50
[2018-11-18 15:07] VITALS: BP 173/72
[2018-11-18] MEDS: ISOSORBIDE MONONITRATE ER 30 MG TAB.ER.24H PO SCH (16:24)
--- NOTE | 2018-11-18 17:19 | NUR ---
Wound Care Wound care consult for wound to right lateral foot. Pt has DFU/open incision site that has been being seen in [facility]. See wound assessment. Removed home vac dressing, cleansed, pictured and measured wound and replaced wound vac. No other wounds noted on full skin inspection. Pt left on his left side with heels floated. will follow up on Sun for next vac change.
[2018-11-18 19:50] VITALS: BP 152/71
[2018-11-18] MEDS: ATORVASTATIN CALCIUM 40 MG TABLET. PO SCH (20:47)
[2018-11-18] MEDS: FAMOTIDINE 20 MG TABLET. PO SCH (20:47)
[2018-11-18] MEDS: ZOLPIDEM 5 MG TABLET. PO SCH (20:48)
[2018-11-18 23:10] VITALS: BP 150/68
[2018-11-19] MEDS: NITROGLYCERIN OINT 1 GM PACKET. TP SCH ×4 (05:03→17:32)
[2018-11-19 07:00] VITALS: BP 139/86
[2018-11-19 08:14] LABS: CALCIUM 8.8 mg/dL (8.5-10.1); CREATININE 5.4 mg/dL (0.7-1.3); GFR 13.5
[2018-11-19] MEDS ORDERED: IV NORMAL SALINE 1000ML BAG 1,000 ML IV PRN ×2 (08:14)
[2018-11-19] MEDS ORDERED: 0.9 % SODIUM CHLORIDE 10 ML DISP.SYRIN. IV PRN ×2 (08:15)
[2018-11-19] MEDS ORDERED: ALBUMIN HUMAN 25% 200 ML IV PRN (08:15)
[2018-11-19] MEDS ORDERED: ONDANSETRON PF 4 MG/2 ML VIAL. IV PRN (08:15)
[2018-11-19] MEDS ORDERED: DIALYSIS PATIENT. MC PRN ×2 (08:15)
[2018-11-19] MEDS: BUDESONIDE 0.5 MG/2 ML NEBU. NEB SCH ×2 (08:52→21:17)
[2018-11-19] MEDS: oxyCODONE/APAP 10/325 1 TAB TABLET PO SCH ×4 (09:00→20:58)
--- NOTE | 2018-11-19 12:03 | PDOC ---
PROGRESS NOTES Chief Complaint Chief Complaint volume overload secondary to non compliance with dialysis Acute febrile illness? no evidence of infection on initial work up and procalcitonin is negative. Anemia of chronic illness Elevated BNP which is very common in ESRD on HD patients Plan; follow recommendations from tax credit leasing consultant HD as per nephrology continue home meds and reinforce the importance of adherence to treatment. follow after HD, he may be able to be dismissed if no further inpatient services are warranted We'll follow up on H&H History of Present Illness History of Present Illness Patient with no acute events overnight, patient with long standing history of non compliance, stressed the importance of staying adherent to his treatment plan to avoid further complications from his medical comrobidities. This morning the patient had an episode where he went through a coughing spell from some by walking into the room with perfume. Reassurances provided for the patient, no other complaints Vitals Vitals Vital Signs Date Time Temp Pulse Resp B/P (MAP) Pulse Ox O2 Delivery O2 Flow Rate FiO2 11/19/18 08:52 Room Air 11/19/18 07:00 98.4 82 18 139/86 (103) 98 98.4 11/18/18 20:00 2.0 Physical Exam General: Alert, Oriented X3, Cooperative, mild distress Heart: Regular rate, Normal S1, Normal S2, No murmurs, Other (irregular rhythm) Lungs: Clear Abdomen: Normal bowel sounds Extremities: No clubbing, No cyanosis Skin: No rashes, No breakdown Labs LABS Laboratory Tests Test 11/18/18 17:01 11/18/18 20:48 11/19/18 07:20 11/19/18 07:40 Glucose (Fingerstick) 128 mg/dL (70-99) 167 mg/dL (70-99) 141 mg/dL (70-99) Sodium Level 140 mmol/L (136-145) Potassium Level 5.0 mmol/L (3.5-5.1) Chloride Level 104 mmol/L (98-107) Carbon Dioxide Level 27 mmol/L (21-32) Anion Gap 9 (6-14) Blood Urea Nitrogen 45 mg/dL (8-26) Creatinine 5.4 mg/dL (0.7-1.3) Estimated GFR (Cockcroft-Gault) 13.5 Glucose Level 142 mg/dL (70-99) Calcium Level 8.8 mg/dL (8.5-10.1) Comment Review of Relevant I have reviewed the following items lila (where applicable) has been applied. Labs Laboratory Tests Test 11/17/18 16:28 11/17/18 20:38 11/18/18 07:35 11/18/18 09:05 Glucose (Fingerstick) 128 mg/dL (70-99) 143 mg/dL (70-99) 125 mg/dL (70-99) Troponin I Quantitative 0.025 ng/mL (0.000-0.055) Test 11/18/18 11:38 11/18/18 17:01 11/18/18 20:48 11/19/18 07:20 Glucose (Fingerstick) 153 mg/dL (70-99) 128 mg/dL (70-99) 167 mg/dL (70-99) 141 mg/dL (70-99) Test 11/19/18 07:40 Sodium Level 140 mmol/L (136-145) Potassium Level 5.0 mmol/L (3.5-5.1) Chloride Level 104 mmol/L (98-107) Carbon Dioxide Level 27 mmol/L (21-32) Anion Gap 9 (6-14) Blood Urea Nitrogen 45 mg/dL (8-26) Creatinine 5.4 mg/dL (0.7-1.3) Estimated GFR (Cockcroft-Gault) 13.5 Glucose Level 142 mg/dL (70-99) Calcium Level 8.8 mg/dL (8.5-10.1) Laboratory Tests Test 11/18/18 17:01 11/18/18 20:48 11/19/18 07:20 11/19/18 07:40 Glucose (Fingerstick) 128 mg/dL (70-99) 167 mg/dL (70-99) 141 mg/dL (70-99) Sodium Level 140 mmol/L (136-145) Potassium Level 5.0 mmol/L (3.5-5.1) Chloride Level 104 mmol/L (98-107) Carbon Dioxide Level 27 mmol/L (21-32) Anion Gap 9 (6-14) Blood Urea Nitrogen 45 mg/dL (8-26) Creatinine 5.4 mg/dL (0.7-1.3) Estimated GFR (Cockcroft-Gault) 13.5 Glucose Level 142 mg/dL (70-99) Calcium Level 8.8 mg/dL (8.5-10.1) Microbiology 11/16/18 Blood Culture - Preliminary, Resulted NO GROWTH AFTER 3 DAYS Medications Current Medications Furosemide (Lasix) 40 mg 1X ONCE IVP Last administered on 11/16/18at 11:19; Start 11/16/18 at 11:00; Stop 11/16/18 at 11:01; Status DC Nitroglycerin (Nitro-Bid Oint) 1 inch 1X ONCE TP Last administered on at 11:19; Start 11/16/18 at 11:00; Stop 11/16/18 at 11:01; Status DC Sodium Chloride 1,000 ml @ 1,000 mls/hr Q1H PRN IV hypotension; Start 11/16/18 at 14:13; Stop 11/16/18 at 20:12; Status DC Albumin Human 200 ml @ 200 mls/hr 1X PRN PRN IV Hypotension; Start 11/16/18 at 14:15; Stop 11/16/18 at 20:14; Status DC Sodium Chloride (Normal Saline Flush) 10 ml 1X PRN PRN IV AP catheter pack; Start 11/16/18 at 14:15; Stop 11/17/18 at 14:14; Status DC Sodium Chloride (Normal Saline Flush) 10 ml 1X PRN PRN IV MUSIC PASTOR catheter pack; Start 11/16/18 at 14:15; Stop 11/17/18 at 14:14; Status DC Sodium Chloride 1,000 ml @ 400 mls/hr Q2H30M PRN IV PATENCY; Start 11/16/18 at 14:13; Stop 11/17/18 at 02:12; Status DC Info (PHARMACY MONITORING -- do not chart) 1 each PRN DAILY PRN MC SEE COMMENTS ; Start 11/16/18 at 14:15; Status Cancel Info (PHARMACY MONITORING -- do not chart) 1 each PRN DAILY PRN MC SEE COMMENTS ; Start 11/16/18 at 14:15 Darbepoetin Jace (Aranesp) 60 mcg WEEKLYHS SQ Last administered on 11/16/18at 21: 01; Start 11/16/18 at 21:00 Dextrose (Dextrose 50%-Water Syringe) 12.5 gm PRN Q15MIN PRN IV SEE COMMENTS; Start 11/16/18 at 20:45 Morphine Sulfate (Morphine Sulfate) 2 mg PRN Q2HR PRN IV PAIN Last administered on 11/18/18 08:11; Start 11/16/18 at 23:45 Nitroglycerin (Nitro-Bid Oint) 1 inch Q6HRS TP Last administered on 11/18/18 08 :19; Start 11/17/18 at 00:00 Acetaminophen (Tylenol) 650 mg PRN Q6HRS PRN PO FEVER Last administered on 01:44; Start 11/17/18 at 16:00 Aspirin ([place]ourdes Aspirin) 325 mg DAILY PO Last administered on 11/18/18 08:18; Start 11/17/18 at 17:00 Calcium Carbonate/ Glycine (Oscal) 500 mg BID PO Last administered on 11/18/18 20:47; Start 11/17/18 at 21:00 Carvedilol (Coreg) 3.125 mg BIDWMEALS PO Last administered on 11/18/18 16:26; Start 11/17/18 at 17:00 Clopidogrel Bisulfate (Plavix) 75 mg DAILY PO Last administered on 11/18/18 08: 18; Start 11/17/18 at 17:00 Famotidine (Pepcid) 20 mg HS PO Last administered on 11/18/18 20:47; Start 11/17 at 21:00 Levothyroxine Sodium (Synthroid) 175 mcg DAILYAC PO Last administered on 08:19; Start 11/17/18 at 16:30 Oxycodone/ Acetaminophen (Percocet 10/325) 1 tab QID PO Last administered on 20:48; Start 11/17/18 at 17:00 Zolpidem Tartrate (Ambien) 5 mg QHS PO Last administered on 11/18/18 20:48; Start 11/17/18 at 21:00 Albuterol Sulfate (Ventolin Neb Soln) 2.5 mg PRN Q6HRS PRN NEB SHORTNESS OF BREATH; Start 11/17/18 at 16:15 Atorvastatin Calcium (Lipitor) 40 mg QHS PO Last administered on 11/18/18 20:47 ; Start 11/17/18 at 21:00 Budesonide (Pulmicort) 0.5 mg RTBID NEB Last administered on 11/19/18 08:52; Start 11/17/18 at 20:00 Levetiracetam (Keppra) 1,000 mg BID PO Last administered on 11/18/18at 20:47; Start 11/17/18 at 21:00 Magnesium Oxide (Magnesium Oxide) 400 mg DAILY PO Last administered on 08:19; Start 11/17/18 at 17:00 Pramipexole Dihydrochloride (miraPEX) 0.25 mg DAILY PO Last administered on 11/18 08:17; Start 11/17/18 at 17:00 Heparin Sodium (Porcine) (Heparin Sodium) 5,000 unit Q12HR SQ Last administered on 11/18/18at 20:58; Start 11/17/18 at 21:00 Isosorbide Mononitrate (Imdur) 30 mg DAILY PO Last administered on 11/18/18at 16: 24; Start 11/18/18 at 15:00 Ondansetron HCl (Zofran) 4 mg PRN Q6HRS PRN IV NAUSEA/VOMITING Last administered on 11/19/18at 08:27; Start 11/19/18 at 08:15 Sodium Chloride 1,000 ml @ 1,000 mls/hr Q1H PRN IV hypotension; Start 11/19/18 at 08:14; Stop 11/19/18 at 14:13 Albumin Human 200 ml @ 200 mls/hr 1X PRN PRN IV Hypotension; Start 11/19/18 at 08:15; Stop 11/19/18 at 14:14 Sodium Chloride (Normal Saline Flush) 10 ml 1X PRN PRN IV AP catheter pack; Start 11/19/18 at 08:15; Stop 11/20/18 at 08:14 Sodium Chloride (Normal Saline Flush) 10 ml 1X PRN PRN IV MUSIC PASTOR catheter pack; Start 11/19/18 at 08:15; Stop 11/20/18 at 08:14 Sodium Chloride 1,000 ml @ 400 mls/hr Q2H30M PRN IV PATENCY; Start 11/19/18 at 08:14; Stop 11/19/18 at 20:13 Info (PHARMACY MONITORING -- do not chart) 1 each PRN DAILY PRN MC SEE COMMENTS ; Start 11/19/18 at 08:15; Status UNV Info (PHARMACY MONITORING -- do not chart) 1 each PRN DAILY PRN MC SEE COMMENTS ; Start 11/19/18 at 08:15; Status UNV Active Scripts Active Reported Aspirin 325 Mg Tablet 1 Tab PO DAILY Coreg (Carvedilol) 3.125 Mg Tablet 3.125 Mg PO BIDWMEALS Magnesium (Magnesium Oxide) 400 Mg Capsule 400 Mg PO DAILY Levothyroxine Sodium 175 Mcg Tablet 175 Mcg PO DAILYAC Plavix (Clopidogrel Bisulfate) 75 Mg Tablet 75 Mg PO DAILY Calcium Carbonate 500 Mg Tablet 500 Mg PO BID Lipitor (Atorvastatin Calcium) 80 Mg Tablet 40 Mg PO HS Keppra (Levetiracetam) 1,000 Mg Tablet 1 Tab PO BID Endocet 10-325 Mg Tablet (Oxycodone Hcl/Acetaminophen) 1 Each Tablet 1 Tab PO QID Flovent 110MCG Hfa (Fluticasone Propionate) 12 Gm Aer.w.adap 2 Puff IH BID Zolpidem Tartrate 5 Mg Tablet 1 Tab PO QHS Mirapex (Pramipexole Di-Hcl) 0.25 Mg Tablet 1 Tab PO DAILY Tylenol (Acetaminophen) 325 Mg Tablet 650 Mg PO PRN Q6HRS PRN Famotidine 20 Mg Tablet 20 Mg PO HS Ventolin Hfa Inhaler (Albuterol Sulfate) 18 Gm Hfa.aer.ad 1 Puff INH Q6HRS PRN Vitals/I & O Vital Sign - Last 24 Hours 11/18/18 11/18/18 11/18/18 11/18/18 15:07 16:24 16:25 16:26 Temp 98.1 98.1 Pulse 82 82 82 Resp 18 20 B/P (MAP) 173/72 (105) 173/72 173/72 Pulse Ox 94 O2 Delivery Nasal Cannula O2 Flow Rate 2.0 11/18/18 11/18/18 11/18/18 11/18/18 17:25 19:50 19:59 20:00 Temp 97.7 97.7 Pulse 78 Resp 20 20 B/P (MAP) 152/71 (98) Pulse Ox 97 95 O2 Delivery Room Air Room Air Nasal Cannula O2 Flow Rate 2.0 11/18/18 11/18/18 11/19/18 11/19/18 20:48 23:10 03:00 07:00 Temp 98.3 98.4 98.3 98.4 Pulse 85 82 82 Resp 20 18 B/P (MAP) 150/68 (95) 139/86 (103) Pulse Ox 96 98 O2 Delivery Room Air Room Air Room Air 11/19/18 11/19/18 08:00 08:52 O2 Delivery Room Air Room Air Intake and Output 11/18/18 11/18/18 11/19/18 15:00 23:00 07:00 Intake Total 200 ml 400 ml Output Total 375 ml Balance -375 ml 200 ml 400 ml TONI LEE MD Nov 19, 2018 12:03
[2018-11-19 12:16] LABS: BASO # 0.1 x10^3/uL (0.0-0.2); BASO % 3 % (0-3); EOS # 0.3 x10^3/uL (0.0-0.7); EOS % 6 % (0-3); HEMATOCRIT 23.7 % (39.0-53.0); HEMOGLOBIN 7.5 g/dL (13.0-17.5); LYMPH # 0.7 x10^3/uL (1.0-4.8); LYMPH % 14 % (24-48); MEAN CORPUSCULAR HEMOGLOBIN 29 pg (25-35); MEAN CORPUSCULAR HGB CONC 32 g/dL (31-37); MEAN CORPUSCULAR VOLUME 90 fL (79-100); MONO # 0.6 x10^3/uL (0.0-1.1); MONO % 11 % (0-9); NEUT # 3.5 x10^3uL (1.8-7.7); NEUT % 67 % (31-73); PLATELET COUNT 145 x10^3/uL (140-400); RED BLOOD COUNT 2.63 x10^6/uL (4.30-5.70); RED CELL DISTRIBUTION WIDTH 16.9 % (11.5-14.5); WHITE BLOOD COUNT 5.3 x10^3/uL (4.0-11.0)
--- NOTE | 2018-11-19 14:25 | PDOC ---
SUBJECTIVE ROS Stable on HD OBJECTIVE Vital Signs Vital Signs Date Time Temp Pulse Resp B/P (MAP) Pulse Ox O2 Delivery O2 Flow Rate FiO2 11/19/18 08:52 Room Air 11/19/18 07:00 98.4 82 18 139/86 (103) 98 98.4 11/18/18 20:00 2.0 I & 0 Intake and Output 11/19/18 06:59 Intake Total 600 ml Output Total 375 ml Balance 225 ml Intake Oral 600 ml Output Urine Total 375 ml PHYSICAL EXAM Physical Exam GENERAL: NAD , Morbidly obese HEENT-OM moist NECK- Supple HEART: Distant S1, S2 with a soft S3. LUNGS: Bibasilar crackles. ABDOMEN: Soft, obese. EXTREMITIES: The right foot has a wound VAC in place. 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- On KEITH on his HD days, but due to non compliance misses multiple doses Shortness of breath- Misses HD Hx of CHF/CAD CAD/CHF Chest pain this am, defer to primary Rt Foot wound/Lt BKA Non Compliance COMMENT/RELEVANT DATA Meds Current Medications Medications (Trade) Dose Ordered Sig/[place] Start Time Stop Time Status Last Admin Dose Admin Acetaminophen (Tylenol) 650 mg PRN Q6HRS PRN 11/17/18 16:00 11/18/18 01:44 650 MG Albumin Human 200 ml @ 200 mls/hr 1X PRN PRN 11/19/18 08:15 11/19/18 14:14 DC Albuterol Sulfate (Ventolin Neb Soln) 2.5 mg PRN Q6HRS PRN 11/17/18 16:15 Aspirin (Lourdes Aspirin) 325 mg DAILY 11/17/18 17:00 11/18/18 08:18 325 MG Atorvastatin Calcium (Lipitor) 40 mg QHS 11/17/18 21:00 11/18/18 20:47 40 MG Budesonide (Pulmicort) 0.5 mg RTBID 11/17/18 20:00 11/19/18 08:52 0.5 MG Calcium Carbonate/ Glycine (Oscal) 500 mg BID 11/17/18 21:00 11/18/18 20:47 500 MG Carvedilol (Coreg) 3.125 mg BIDWMEALS 11/17/18 17:00 11/18/18 16:26 3.125 MG Clopidogrel Bisulfate (Plavix) 75 mg DAILY 11/17/18 17:00 11/18/18 08:18 75 MG Darbepoetin Jace (Aranesp) 60 mcg WEEKLYHS 11/16/18 21:00 11/16/18 21:01 60 MCG Dextrose (Dextrose 50%-Water Syringe) 12.5 gm PRN Q15MIN PRN 11/16/18 20:45 Famotidine (Pepcid) 20 mg HS 11/17/18 21:00 11/18/18 20:47 20 MG Furosemide (Lasix) 40 mg 1X ONCE 11/16/18 11:00 11/16/18 11:01 DC 11/16/18 11:19 40 MG Heparin Sodium (Porcine) (Heparin Sodium) 5,000 unit Q12HR 11/17/18 21:00 11/18/18 20:58 5,000 UNIT Info (PHARMACY MONITORING -- do not chart) 1 each PRN DAILY PRN 11/19/18 08:15 UNV Isosorbide Mononitrate (Imdur) 30 mg DAILY 11/18/18 15:00 11/18/18 16:24 30 MG Levetiracetam (Keppra) 1,000 mg BID 11/17/18 21:00 11/18/18 20:47 1,000 MG Levothyroxine Sodium (Synthroid) 175 mcg DAILYAC 11/17/18 16:30 11/18/18 08:19 175 MCG Magnesium Oxide (Magnesium Oxide) 400 mg DAILY 11/17/18 17:00 11/18/18 08:19 400 MG Morphine Sulfate (Morphine Sulfate) 2 mg PRN Q2HR PRN 11/16/18 23:45 11/18/18 08:11 2 MG Nitroglycerin (Nitro-Bid Oint) 1 inch Q6HRS 11/17/18 00:00 11/18/18 08:19 1 INCH Ondansetron HCl (Zofran) 4 mg PRN Q6HRS PRN 11/19/18 08:15 11/19/18 08:27 4 MG Oxycodone/ Acetaminophen (Percocet 10/325) 1 tab QID 11/17/18 17:00 11/18/18 20:48 1 TAB Pramipexole Dihydrochloride (miraPEX) 0.25 mg DAILY 11/17/18 17:00 11/18/18 08:17 0.25 MG Sodium Chloride 1,000 ml @ 400 mls/hr Q2H30M PRN 11/19/18 08:14 11/19/18 20:13 Sodium Chloride (Normal Saline Flush) 10 ml 1X PRN PRN 11/19/18 08:15 11/20/18 08:14 Zolpidem Tartrate (Ambien) 5 mg QHS 11/17/18 21:00 11/18/18 20:48 5 MG Lab Laboratory Tests Test 11/18/18 17:01 11/18/18 20:48 11/19/18 07:20 11/19/18 07:40 Glucose (Fingerstick) 128 mg/dL (70-99) 167 mg/dL (70-99) 141 mg/dL (70-99) White Blood Count 5.3 x10^3/uL (4.0-11.0) Red Blood Count 2.63 x10^6/uL (4.30-5.70) Hemoglobin 7.5 g/dL (13.0-17.5) Hematocrit 23.7 % (39.0-53.0) Mean Corpuscular Volume 90 fL (79-100) Mean Corpuscular Hemoglobin 29 pg (25-35) Mean Corpuscular Hemoglobin Concent 32 g/dL (31-37) Red Cell Distribution Width 16.9 % (11.5-14.5) Platelet Count 145 x10^3/uL (140-400) Neutrophils (%) (Auto) 67 % (31-73) Lymphocytes (%) (Auto) 14 % (24-48) Monocytes (%) (Auto) 11 % (0-9) Eosinophils (%) (Auto) 6 % (0-3) Basophils (%) (Auto) 3 % (0-3) Neutrophils # (Auto) 3.5 x10^3uL (1.8-7.7) Lymphocytes # (Auto) 0.7 x10^3/uL (1.0-4.8) Monocytes # (Auto) 0.6 x10^3/uL (0.0-1.1) Eosinophils # (Auto) 0.3 x10^3/uL (0.0-0.7) Basophils # (Auto) 0.1 x10^3/uL (0.0-0.2) Sodium Level 140 mmol/L (136-145) Potassium Level 5.0 mmol/L (3.5-5.1) Chloride Level 104 mmol/L (98-107) Carbon Dioxide Level 27 mmol/L (21-32) Anion Gap 9 (6-14) Blood Urea Nitrogen 45 mg/dL (8-26) Creatinine 5.4 mg/dL (0.7-1.3) Estimated GFR (Cockcroft-Gault) 13.5 Glucose Level 142 mg/dL (70-99) Calcium Level 8.8 mg/dL (8.5-10.1) Results All relevant outside records, renal labs, imaging studies, telemetry/EKG's were reviewed. MINA RICHARDSON MD Nov 19, 2018 14:25
[2018-11-19 15:00] VITALS: BP 148/68
[2018-11-19] MEDS: MAGNESIUM OXIDE 400 MG TABLET PO SCH (16:08)
[2018-11-19] MEDS: ISOSORBIDE MONONITRATE ER 30 MG TAB.ER.24H PO SCH (16:08)
[2018-11-19] MEDS: levETIRAcetam 500 MG TABLET PO SCH ×2 (16:08→20:57)
[2018-11-19] MEDS: ASPIRIN 325 MG TABLET PO SCH (16:08)
[2018-11-19] MEDS: LEVOTHYROXINE 175 MCG TABLET PO SCH (16:08)
[2018-11-19] MEDS: PRAMIPEXOLE 0.25 MG TABLET. PO SCH (16:08)
[2018-11-19] MEDS: CARVEDILOL 3.125 MG TABLET. PO SCH ×2 (16:09→17:00)
[2018-11-19] MEDS: CALCIUM CARBONATE 500 MG TABLET PO SCH ×2 (16:09→20:58)
[2018-11-19] MEDS: CLOPIDOGREL BISULFATE 75 MG TABLET PO SCH (16:14)
[2018-11-19] MEDS: HEPARIN for SUB-Q USE 5,000 UNIT/ML VIAL. SQ SCH ×2 (16:15→20:59)
[2018-11-19 19:35] VITALS: BP 129/60
[2018-11-19] MEDS: ZOLPIDEM 5 MG TABLET. PO SCH (20:57)
[2018-11-19] MEDS: ATORVASTATIN CALCIUM 40 MG TABLET. PO SCH (20:57)
[2018-11-19] MEDS: FAMOTIDINE 20 MG TABLET. PO SCH (20:57)
[2018-11-19] MEDS: ALBUTEROL SULFATE 2.5 MG/3 ML NEBU. NEB PRN (21:18)
[2018-11-19 23:10] VITALS: BP 136/64
[2018-11-20 03:35] VITALS: BP 125/58
[2018-11-20] MEDS: NITROGLYCERIN OINT 1 GM PACKET. TP SCH ×4 (05:48→18:00)
[2018-11-20] MEDS: ALBUTEROL SULFATE 2.5 MG/3 ML NEBU. NEB PRN (05:51)
[2018-11-20] MEDS: BUDESONIDE 0.5 MG/2 ML NEBU. NEB SCH (05:52)
[2018-11-20 07:00] VITALS: BP 140/63
[2018-11-20] MEDS: CALCIUM CARBONATE 500 MG TABLET PO SCH (07:58)
[2018-11-20] MEDS: PRAMIPEXOLE 0.25 MG TABLET. PO SCH (07:58)
[2018-11-20] MEDS: ISOSORBIDE MONONITRATE ER 30 MG TAB.ER.24H PO SCH (07:58)
[2018-11-20] MEDS: levETIRAcetam 500 MG TABLET PO SCH (07:58)
[2018-11-20] MEDS: ASPIRIN 325 MG TABLET PO SCH (07:58)
[2018-11-20] MEDS: LEVOTHYROXINE 175 MCG TABLET PO SCH (07:58)
[2018-11-20] MEDS: CLOPIDOGREL BISULFATE 75 MG TABLET PO SCH (07:58)
[2018-11-20] MEDS: MAGNESIUM OXIDE 400 MG TABLET PO SCH (07:59)
[2018-11-20] MEDS: CARVEDILOL 3.125 MG TABLET. PO SCH ×2 (07:59→18:04)
[2018-11-20] MEDS: HEPARIN for SUB-Q USE 5,000 UNIT/ML VIAL. SQ SCH (08:00)
[2018-11-20] MEDS: oxyCODONE/APAP 10/325 1 TAB TABLET PO SCH ×3 (08:10→17:00)
--- NOTE | 2018-11-20 10:35 | PDOC ---
SUBJECTIVE ROS Stable, no complaints, states is ready to go home Claims missed HD Tx as transportation has wrong address OBJECTIVE Vital Signs Vital Signs Date Time Temp Pulse Resp B/P (MAP) Pulse Ox O2 Delivery O2 Flow Rate FiO2 11/20/18 09:10 20 11/20/18 08:00 Room Air 2.0 11/20/18 07:59 76 140/63 11/20/18 07:00 98.7 96 98.7 I & 0 Intake and Output 11/20/18 06:59 Intake Total 600 ml Output Total 200 ml Balance 400 ml Intake Oral 600 ml Output Urine Total 200 ml PHYSICAL EXAM Physical Exam GENERAL: NAD , Morbidly obese HEENT-OM moist NECK- Supple HEART: Distant S1, S2 with a soft S3. LUNGS: Bibasilar crackles. ABDOMEN: Soft, obese. EXTREMITIES: The right foot has a wound VAC in place. SKIN No rash NEURO- AXO DIAGNOSIS/ASSESSMENT Assessment & Plan ESRD- On HD ELIJAH [facility] Severe Non Compliance misses week or more at a time Currently No indication for HD today Anemia- On KEITH on his HD days, but due to non compliance misses multiple doses Shortness of breath- Misses HD Hx of CHF/CAD CAD/CHF Chest pain this am, defer to primary Rt Foot wound/Lt BKA Non Compliance COMMENT/RELEVANT DATA Meds Current Medications Medications (Trade) Dose Ordered Sig/Florence Start Time Stop Time Status Last Admin Dose Admin Acetaminophen (Tylenol) 650 mg PRN Q6HRS PRN 11/17/18 16:00 11/18/18 01:44 650 MG Albumin Human 200 ml @ 200 mls/hr 1X PRN PRN 11/19/18 08:15 11/19/18 14:14 DC Albuterol Sulfate (Ventolin Neb Soln) 2.5 mg PRN Q6HRS PRN 11/17/18 16:15 11/20/18 05:51 2.5 MG Aspirin (Loureds Aspirin) 325 mg DAILY 11/17/18 17:00 11/20/18 07:58 325 MG Atorvastatin Calcium (Lipitor) 40 mg QHS 11/17/18 21:00 11/19/18 20:57 40 MG Budesonide (Pulmicort) 0.5 mg RTBID 11/17/18 20:00 11/20/18 05:52 0.5 MG Calcium Carbonate/ Glycine (Oscal) 500 mg BID 11/17/18 21:00 11/20/18 07:58 500 MG Carvedilol (Coreg) 3.125 mg BIDWMEALS 11/17/18 17:00 11/20/18 07:59 3.125 MG Clopidogrel Bisulfate (Plavix) 75 mg DAILY 11/17/18 17:00 11/20/18 07:58 75 MG Darbepoetin Jace (Aranesp) 60 mcg WEEKLYHS 11/16/18 21:00 11/16/18 21:01 60 MCG Dextrose (Dextrose 50%-Water Syringe) 12.5 gm PRN Q15MIN PRN 11/16/18 20:45 Famotidine (Pepcid) 20 mg HS 11/17/18 21:00 11/19/18 20:57 20 MG Furosemide (Lasix) 40 mg 1X ONCE 11/16/18 11:00 11/16/18 11:01 DC 11/16/18 11:19 40 MG Heparin Sodium (Porcine) (Heparin Sodium) 5,000 unit Q12HR 11/17/18 21:00 11/20/18 08:00 5,000 UNIT Info (PHARMACY MONITORING -- do not chart) 1 each PRN DAILY PRN 11/19/18 08:15 UNV Isosorbide Mononitrate (Imdur) 30 mg DAILY 11/18/18 15:00 11/20/18 07:58 30 MG Levetiracetam (Keppra) 1,000 mg BID 11/17/18 21:00 11/20/18 07:58 1,000 MG Levothyroxine Sodium (Synthroid) 175 mcg DAILYAC 11/17/18 16:30 11/20/18 07:58 175 MCG Magnesium Oxide (Magnesium Oxide) 400 mg DAILY 11/17/18 17:00 11/20/18 07:59 400 MG Morphine Sulfate (Morphine Sulfate) 2 mg PRN Q2HR PRN 11/16/18 23:45 11/18/18 08:11 2 MG Nitroglycerin (Nitro-Bid Oint) 1 inch Q6HRS 11/17/18 00:00 11/18/18 08:19 1 INCH Ondansetron HCl (Zofran) 4 mg PRN Q6HRS PRN 11/19/18 08:15 11/19/18 08:27 4 MG Oxycodone/ Acetaminophen (Percocet 10/325) 1 tab QID 11/17/18 17:00 11/20/18 08:10 1 TAB Pramipexole Dihydrochloride (miraPEX) 0.25 mg DAILY 11/17/18 17:00 11/20/18 07:58 0.25 MG Sodium Chloride 1,000 ml @ 400 mls/hr Q2H30M PRN 11/19/18 08:14 11/19/18 20:13 DC Sodium Chloride (Normal Saline Flush) 10 ml 1X PRN PRN 11/19/18 08:15 11/20/18 08:14 DC Zolpidem Tartrate (Ambien) 5 mg QHS 11/17/18 21:00 11/19/18 20:57 5 MG Lab Laboratory Tests Test 11/19/18 16:39 11/19/18 20:38 11/20/18 07:13 Glucose (Fingerstick) 89 mg/dL (70-99) 110 mg/dL (70-99) 79 mg/dL (70-99) Results All relevant outside records, renal labs, imaging studies, telemetry/EKG's were reviewed. MINA RICHARDSON MD Nov 20, 2018 10:35
[2018-11-20 11:00] VITALS: BP 144/61
--- NOTE | 2018-11-20 11:57 | NUR ---
SS following up with discharge planning. Discharge disposition continues to remain home with resumption of [facility]. SS will continue to follow for discharge planning.
--- NOTE | 2018-11-20 12:36 | RAD ---
CHEST PA LATERAL History: CHRONIC COUGH Comparison: 11/16/2018 portable chest x-ray exam. Findings: Bilateral subclavian stents noted. The cardiomediastinal silhouette is normal. Pulmonary vasculature is normal. The lungs are clear. No pleural effusion or pneumothorax is seen. There is no acute bone abnormality. Subtle dextroconvexity of the thoracic spine noted. IMPRESSION: No acute cardiopulmonary process. Electronically signed by: Mil Flores MD (11/20/2018 12:33 PM) [facility]
[2018-11-20 14:36] VITALS: BP 133/60
[2018-11-20] MEDS ORDERED: ISOS30TA4 PO (15:16)
--- NOTE | 2018-11-20 15:18 | SNU/HH DC ---
DISCHARGE WITH HOME HEALTH DISCHARGE INFORMATION: Discharge Date: Nov 20, 2018 Final Diagnosis: Pulmonary edema secondary to volume overload secondary to HD non adherence Condition on Discharge: Stable CODE STATUS: Code Status: Full HOME HEALTH: Face to Face: I certify this patient is under my care and that I, or a nurse practitioner or physician's billing assistant working with me, had a face to face encounter that meets the physician face to face encounter requirements with this patient on []. Medical Complications: DM, HTN RN For Eval/Treatment: Yes Home Health Aide For: Other (wound care) Pt Meets Homebound Status: Unsteady balance w/ amb, POST DISCHARGE ORDERS: Activity Instructions for Disc: Activity as tolerated, Other, see below Weight Bearing Status after Di: Non weight bearing, Other, see below Bathing Instructions: Shower-keep dressing dry Wound/Incision Care: Change dressing CHECKS AFTER DISCHARGE: Checks after discharge: Check blood sugar, ac/hs, Weigh Yourself Daily FOLLOW-UP: DC TO SNF LABS: [facility] until 11/07, will need labs TREATMENT/EQUIPMENT ORDERS: Adaptive Equipment Issued: Walker, Wheelchair CERTIFICATION STATEMENT: Certification Statement: Certification Statement: Based on the above finding, I certify that this patient is confined to the home and needs intermittent alf care, physical therapy and/or speech therapy, or continues to need occupational therapy.~ This patient is under my care, and I have initiated the establishment of the plan of care.~ This patient will be followed by myself or a community physician who will periodically review the plan of care. Home Meds Active Scripts Isosorbide Mononitrate (ISOSORBIDE MONONITRATE ER) 30 Mg Tab.er.24h, 30 MG PO DAILY for angina for 30 Days, #30 TAB.SR Prov:TONI LEE MD 11/20/18 Reported Medications Aspirin (ASPIRIN) 325 Mg Tablet, 1 TAB PO DAILY for heart health , #30 TAB 5 Refills 07/03/18 Carvedilol (COREG ) 3.125 Mg Tablet, 3.125 MG PO BIDWMEALS for heart failure , TAB 07/03/18 Magnesium Oxide (MAGNESIUM) 400 Mg Capsule, 400 MG PO DAILY for supplement, CAP 06/28/18 Levothyroxine Sodium (LEVOTHYROXINE SODIUM) 175 Mcg Tablet, 175 MCG PO DAILYAC for THYROID SUPPLEMENT, #30 TAB 0 Refills 06/28/18 Clopidogrel Bisulfate (PLAVIX) 75 Mg Tablet, 75 MG PO DAILY for TO PREVENT BLOOD CLOTS, #30 TAB 0 Refills 06/28/18 Calcium Carbonate (CALCIUM CARBONATE) 500 Mg Tablet, 500 MG PO BID for supplement, TAB 06/28/18 Atorvastatin Calcium (LIPITOR) 80 Mg Tablet, 40 MG PO HS for FOR CHOLESTEROL, # 30 TAB 0 Refills 06/28/18 Levetiracetam (KEPPRA) 1,000 Mg Tablet, 1 TAB PO BID, #60 TAB 5 Refills 04/14/18 Oxycodone Hcl/Acetaminophen (ENDOCET 10-325 MG TABLET) 1 Each Tablet, 1 TAB PO QID, #120 TAB 01/28/18 Fluticasone Propionate (FLOVENT 110MCG HFA) 12 Gm Aer.w.adap, 2 PUFF IH BID, #1 INHALER 2 Refills 01/28/18 Zolpidem Tartrate (ZOLPIDEM TARTRATE) 5 Mg Tablet, 1 TAB PO QHS, #30 TAB 2 Refills 01/28/18 Pramipexole Di-Hcl (MIRAPEX) 0.25 Mg Tablet, 1 TAB PO DAILY, #30 TAB 5 Refills 01/28/18 Acetaminophen (TYLENOL) 325 Mg Tablet, 650 MG PO PRN Q6HRS PRN for FEVER, TAB 07/31/17 Famotidine (FAMOTIDINE) 20 Mg Tablet, 20 MG PO HS, TAB 07/31/17 Albuterol Sulfate (VENTOLIN HFA INHALER) 18 Gm Hfa.aer.ad, 1 PUFF INH Q6HRS PRN for SHORTNESS OF BREATH, INHALER 0 Refills 03/27/17 Discontinued Reported Medications Loratadine (CLARITIN) 10 Mg Tablet, 10 MG PO DAILY, TAB 07/31/17 TONI LEE MD Nov 20, 2018 15:18
--- NOTE | 2018-11-20 15:52 | NUR ---
Wound Care Pt seen for wound care follow up and wound vac dressing change prior to d/c home today. R lateral foot dressing removed, wound cleaned, measured and photographed. Pt's home vac is a [place] vac that [facility] does not have compatible canisters for, so pt is staying on hospital vac until discharge, RN will disconnect vac tubing from pt and place a sterile glove over tubing for transfer home, and pt will place canister and home vac to intact tubing, pt v/u. POC discussed with CRISTI Rodriguez, who v/u, and was instructed to place hospital vac in soiled utility. 1 piece of black foam placed into wound bed, foam bridged up R lateral lower leg to just above Cam walker, vac showing strong seal at -125 mmHg continuous suction. Will f/u with pt in [facility] after d/c.
--- NOTE | 2018-11-20 16:03 | PDOC3 ---
Discharge Summary Visit Information Date of Admission: Nov 16, 2018 Date of Discharge: Nov 20, 2018 Admitting Diagnosis: Severe noncompliance with dialysis Admitting Diagnosis Comment: Severe noncompliance with dialysis with secondary to volume overload, subjective fevers, anemia, azotemia, hyperglycemia, elevated BNP, suspect acute on chronic systolic and diastolic heart failure and malnutrition. Final Diagnosis volume overload secondary to non compliance with dialysis Acute febrile illness resolved no evidence of infection on initial work up and procalcitonin is negative. Anemia of chronic illness Elevated BNP which is very common in ESRD on HD patients Chronic right lower extremity wound with wound vac in place Brief Hospital Course Allergies Allergies Coded Allergies Type Severity Reaction Last Updated Verified iodine Allergy Severe THROAT SWELLING 09/24/18 Yes lisinopril Allergy Severe 09/24/18 Yes Fish Containing Products Allergy Intermediate 09/24/18 Yes Penicillins Allergy Intermediate SEE COMMENT 09/24/18 Yes piperacillin Allergy Intermediate Hives 09/24/18 Yes tazobactam Allergy Intermediate 09/24/18 Yes Vital Signs Vital Signs Date Time Temp Pulse Resp B/P (MAP) Pulse Ox O2 Delivery O2 Flow Rate FiO2 11/20/18 14:36 98.1 79 20 133/60 (84) 96 Room Air 98.1 11/20/18 08:00 2.0 Lab Results Laboratory Tests Test 11/18/18 17:01 11/18/18 20:48 11/19/18 07:20 11/19/18 07:40 Glucose (Fingerstick) 128 mg/dL (70-99) 167 mg/dL (70-99) 141 mg/dL (70-99) White Blood Count 5.3 x10^3/uL (4.0-11.0) Red Blood Count 2.63 x10^6/uL (4.30-5.70) Hemoglobin 7.5 g/dL (13.0-17.5) Hematocrit 23.7 % (39.0-53.0) Mean Corpuscular Volume 90 fL (79-100) Mean Corpuscular Hemoglobin 29 pg (25-35) Mean Corpuscular Hemoglobin Concent 32 g/dL (31-37) Red Cell Distribution Width 16.9 % (11.5-14.5) Platelet Count 145 x10^3/uL (140-400) Neutrophils (%) (Auto) 67 % (31-73) Lymphocytes (%) (Auto) 14 % (24-48) Monocytes (%) (Auto) 11 % (0-9) Eosinophils (%) (Auto) 6 % (0-3) Basophils (%) (Auto) 3 % (0-3) Neutrophils # (Auto) 3.5 x10^3uL (1.8-7.7) Lymphocytes # (Auto) 0.7 x10^3/uL (1.0-4.8) Monocytes # (Auto) 0.6 x10^3/uL (0.0-1.1) Eosinophils # (Auto) 0.3 x10^3/uL (0.0-0.7) Basophils # (Auto) 0.1 x10^3/uL (0.0-0.2) Sodium Level 140 mmol/L (136-145) Potassium Level 5.0 mmol/L (3.5-5.1) Chloride Level 104 mmol/L (98-107) Carbon Dioxide Level 27 mmol/L (21-32) Anion Gap 9 (6-14) Blood Urea Nitrogen 45 mg/dL (8-26) Creatinine 5.4 mg/dL (0.7-1.3) Estimated GFR (Cockcroft-Gault) 13.5 Glucose Level 142 mg/dL (70-99) Calcium Level 8.8 mg/dL (8.5-10.1) Test 11/19/18 16:39 11/19/18 20:38 11/20/18 07:13 11/20/18 11:39 Glucose (Fingerstick) 89 mg/dL (70-99) 110 mg/dL (70-99) 79 mg/dL (70-99) 93 mg/dL (70-99) Laboratory Tests Test 11/19/18 16:39 11/19/18 20:38 11/20/18 07:13 11/20/18 11:39 Glucose (Fingerstick) 89 mg/dL (70-99) 110 mg/dL (70-99) 79 mg/dL (70-99) 93 mg/dL (70-99) Brief Hospital Course Mr. Goel is a 53 old male who presented with respiratory distress secondary to volume overload. The patient initially had fever reported and a lot of electrolyte disturbances as a consequence of his failed dialysis or at least a days. The patient has been given extensive counseling regarding the importance of staying adherent to his dialysis treatment plan that he gets in [place]. The patient has chronic wounds as a consequence of his poorly controlled diabetes and he is under the care of home health for management of his wound VAC. Patient had several treatments here in the inpatient setting and was brought back to his baseline. Medications were adjusted as per cardiological interior design consultant. He will be given a prescription for isosorbide noted to address his chronic chest discomfort for which he was evaluated approximately one month ago with a cardiac catheterization with no intervening lesions. He did well after fluid was managed with hemodialysis and he was deemed appropriate for discharge on today's day. Chest x-ray for a cough that he presented on the day prior to his dismissal was shown to be clear no evidence of infection nor pneumonic process was evident. Greater than 35 minutes were spent in the discharge process the patient in counseling coronation of care and arrangements for a safe discharge Discharge Information Scheduled Aspirin (Aspirin) 325 Mg Tablet, 1 TAB PO DAILY for heart health , #30 Ref 5 ( Reported) Entered as Reported by: JW JUSTIN on 07/03/181519 Last Action: Continued on 11/17/181554 by MARIO DONAHUE Atorvastatin Calcium (Lipitor) 80 Mg Tablet, 40 MG PO HS for FOR CHOLESTEROL, # 30 Ref 0 (Reported) Entered as Reported by: Daron Shipley on 06/28/181153 Last Action: Converted on 11/17/181554 by MARIO DONAHUE Calcium Carbonate (Calcium Carbonate) 500 Mg Tablet, 500 MG PO BID for supplement, (Reported) Entered as Reported by: Daron Shipley on 06/28/181153 Last Action: Continued on 11/17/181554 by MARIO DONAHUE Carvedilol (Coreg ) 3.125 Mg Tablet, 3.125 MG PO BIDWMEALS for heart failure, (Reported) Entered as Reported by: JW JUSTIN on 07/03/181518 Last Action: Continued on 11/17/181554 by MARIO DONAHUE Clopidogrel Bisulfate (Plavix) 75 Mg Tablet, 75 MG PO DAILY for TO PREVENT BLOOD CLOTS, #30 Ref 0 (Reported) Entered as Reported by: Daron Shipley on 06/28/181153 Last Action: Continued on 11/17/181554 by MARIO DONAHUE Famotidine (Famotidine) 20 Mg Tablet, 20 MG PO HS, (Reported) Entered as Reported by: DELMA BOLDEN on 07/31/17 1709 Last Action: Continued on 11/17/181554 by MARIO DONAHUE Fluticasone Propionate (Flovent 110MCG Hfa) 12 Gm Aer.w.adap, 2 PUFF IH BID, #1 Ref 2 (Reported) Entered as Reported by: ERICA TOM on 01/28/182330 Last Action: Converted on 11/17/181554 by MARIO DONAHUE Isosorbide Mononitrate (Isosorbide Mononitrate Er) 30 Mg Tab.er.24h, 30 MG PO DAILY for angina for 30 Days, #30 Prescribed by: TONI LEE MD on 11/20/18 151 Levetiracetam (Keppra) 1,000 Mg Tablet, 1 TAB PO BID, #60 Ref 5 (Reported) Entered as Reported by: JACKELIN TEIXEIRA on 04/14/18 1359 Last Action: Converted on 11/17/181554 by MARIO DONAHUE Levothyroxine Sodium (Levothyroxine Sodium) 175 Mcg Tablet, 175 MCG PO DAILYAC for THYROID SUPPLEMENT, #30 Ref 0 (Reported) Entered as Reported by: Daron Shipley on 06/28/18 115 Last Action: Continued on 11/17/181554 by MARIO DONAHUE Magnesium Oxide (Magnesium) 400 Mg Capsule, 400 MG PO DAILY for supplement, ( Reported) Entered as Reported by: Daron Shipley on 06/28/18 115 Last Action: Converted on 11/17/181554 by MARIO DONAHUE Oxycodone Hcl/Acetaminophen (Endocet 10-325 Mg Tablet) 1 Each Tablet, 1 TAB PO QID, #120 (Reported) Entered as Reported by: ERICA TOM on 01/28/182330 Last Action: Continued on 11/17/181554 by MARIO DONAHUE Pramipexole Di-Hcl (Mirapex) 0.25 Mg Tablet, 1 TAB PO DAILY, #30 Ref 5 (Reported ) Entered as Reported by: ERICA TOM on 01/28/182330 Last Action: Converted on 11/17/181554 by MARIO DONAHUE Zolpidem Tartrate (Zolpidem Tartrate) 5 Mg Tablet, 1 TAB PO QHS, #30 Ref 2 ( Reported) Entered as Reported by: ERICA TOM on 01/28/18 2331 Last Action: Continued on 11/17/181554 by MARIO DONAHUE Scheduled PRN Acetaminophen (Tylenol) 325 Mg Tablet, 650 MG PO PRN Q6HRS PRN for FEVER, ( Reported) Entered as Reported by: DELMA BOLDEN on 07/31/17 1729 Last Action: Continued on 11/17/181554 by MARIO DONAHUE Albuterol Sulfate (Ventolin Hfa Inhaler) 18 Gm Hfa.aer.ad, 1 PUFF INH Q6HRS PRN for SHORTNESS OF BREATH, Ref 0 (Reported) Entered as Reported by: ARIES RAYMUNDO on 03/27/17 1350 Last Action: Converted on 11/17/181554 by MARIO DONAHUE Discontinued Medications Loratadine (Claritin) 10 Mg Tablet, 10 MG PO DAILY, (Reported) Entered as Reported by: TENZIN HUMPHREY on 07/31/17 0921 Last Action: Discontinued on 11/16/18 151 by TONI HERMOSILLO MD Nov 20, 2018 16:03
--- NOTE | 2018-11-20 18:00 | NUR ---
Discharge Note: BHAVYA WILKES [address] [place] [address] Discharge instructions and discharge home medications reviewed with patient over the phone as [facility] transport came earlier than scheduled time and this nurse was not notified they were here to pick him up. Therefore all instructions including follow ups, dialysis tomorrow, and to hook his wound vac back up to suction on his home wound vac. Patient verbalized understanding. Imdur script called into [facility] in [place]. The following instructions and handouts were given: dialysis diet Discontinued lines and drains: right forearm #22
[2018-11-20 18:04] VITALS: BP 133/60
== END 2018-11-20 18:00 | disposition home health service (06) | DRG 291 ==
LOC: ER 10:19 → 2 NORTH 11:30
PROVIDERS: ADMIT Internal Medicine; ATTEND Internal Medicine
PROC: 5A1D70Z Performance of Urinary Filtration, Intermittent, Less than 6 Hours Per Day (ICD-10-PCS; principal; 2018-11-16)
PROC: 5A1D70Z Performance of Urinary Filtration, Intermittent, Less than 6 Hours Per Day (ICD-10-PCS; 2018-11-19)
DX: I13.2 Hypertensive heart and chronic kidney disease with heart failure and with stage 5 chronic kidney disease, or end stage renal disease (principal); I50.43 Acute on chronic combined systolic (congestive) and diastolic (congestive) heart failure; N18.6 End stage renal disease; J96.20 Acute and chronic respiratory failure, unspecified whether with hypoxia or hypercapnia; Z68.44 Body mass index [BMI] 60.0-69.9, adult; D63.8 Anemia in other chronic diseases classified elsewhere; E03.9 Hypothyroidism, unspecified; E11.22 Type 2 diabetes mellitus with diabetic chronic kidney disease; E11.51 Type 2 diabetes mellitus with diabetic peripheral angiopathy without gangrene; E11.65 Type 2 diabetes mellitus with hyperglycemia; E66.01 Morbid (severe) obesity due to excess calories; E78.00 Pure hypercholesterolemia, unspecified; E78.5 Hyperlipidemia, unspecified; F03.90 Unspecified dementia, unspecified severity, without behavioral disturbance, psychotic disturbance, mood disturbance, and anxiety; I25.119 Atherosclerotic heart disease of native coronary artery with unspecified angina pectoris; I25.2 Old myocardial infarction; J44.9 Chronic obstructive pulmonary disease, unspecified; M06.9 Rheumatoid arthritis, unspecified; I48.0 Paroxysmal atrial fibrillation; K21.9 Gastro-esophageal reflux disease without esophagitis; Z79.02 Long term (current) use of antithrombotics/antiplatelets; Z79.51 Long term (current) use of inhaled steroids; Z79.82 Long term (current) use of aspirin; Z79.899 Other long term (current) drug therapy; Z82.49 Family history of ischemic heart disease and other diseases of the circulatory system; Z83.3 Family history of diabetes mellitus; Z86.73 Personal history of transient ischemic attack (TIA), and cerebral infarction without residual deficits; Z87.891 Personal history of nicotine dependence; Z89.512 Acquired absence of left leg below knee; Z91.15 Patient's noncompliance with renal dialysis; Z91.19 Patient's noncompliance with other medical treatment and regimen; Z96.659 Presence of unspecified artificial knee joint; Z95.5 Presence of coronary angioplasty implant and graft; Z99.2 Dependence on renal dialysis; E21.3 Hyperparathyroidism, unspecified; F32.9 Major depressive disorder, single episode, unspecified; F41.9 Anxiety disorder, unspecified; K57.90 Diverticulosis of intestine, part unspecified, without perforation or abscess without bleeding; M19.90 Unspecified osteoarthritis, unspecified site; R07.89 Other chest pain; Z88.8 Allergy status to other drugs, medicaments and biological substances; Z88.0 Allergy status to penicillin; Z91.013 Allergy to seafood; Z79.01 Long term (current) use of anticoagulants
CPT/HCPCS: 36415; 71045; 71046; 80048; 80053; 81001; 82962; 83605; 83880; 84145; 84484; 85025; 85610; 87040; 87804; 93005; 94640; 94760; 96374; J0881; J1644; J1940; J2270; J2405; J7613; J7626; 99285-25

== ENCOUNTER 2018-11-25 11:35 | Inpatient (IN) | payer MEDICARE, OTHER ==
[2018-11-25] VITALS (11 sets, daily range): BP systolic 93–163; BP diastolic 43–73
[~2018-11-25] VITALS: Ht 198.1 cm; Wt 134.7 kg
--- NOTE | 2018-11-25 12:00 | NUR ---
Wound Care Pt seen for wound care in outpt [facility] wound clinic. Pt presents with fever of 101.4, chills and pain in his R foot. Vac dressing removed from R foot, wound bed appears beefy red and granulated in most of the base, but also with a moderate amount of odor and some continued undermining of almost [address] Andres assessed, plantar surface of pt's foot appears reddened and blanched, remaining toes are edematous and red, orders to send pt to the ED at this time. Wound packed and dressed with Aquacel AG, ABD and kerlix, will follow pt during hospitalization.
[2018-11-25] MEDS ORDERED: IV NORMAL SALINE 500ML BAG 500 ML IV ONE (12:45)
[2018-11-25] MEDS ORDERED: ACETAMINOPHEN 325 MG TABLET. PO ONE (12:45)
[2018-11-25 14:00] LABS: BASO # 0.1 x10^3/uL (0.0-0.2); BASO % 1 % (0-3); EOS # 0.1 x10^3/uL (0.0-0.7); EOS % 0 % (0-3); HEMATOCRIT 25.8 % (39.0-53.0); HEMOGLOBIN 8.1 g/dL (13.0-17.5); LYMPH # 0.6 x10^3/uL (1.0-4.8); LYMPH % 4 % (24-48); MEAN CORPUSCULAR HEMOGLOBIN 28 pg (25-35); MEAN CORPUSCULAR HGB CONC 32 g/dL (31-37); MEAN CORPUSCULAR VOLUME 87 fL (79-100); MONO # 1.9 x10^3/uL (0.0-1.1); MONO % 12 % (0-9); NEUT # 13.9 x10^3uL (1.8-7.7); NEUT % 84 % (31-73); PLATELET COUNT 199 x10^3/uL (140-400); RED BLOOD COUNT 2.96 x10^6/uL (4.30-5.70); RED CELL DISTRIBUTION WIDTH 16.2 % (11.5-14.5); WHITE BLOOD COUNT 16.6 x10^3/uL (4.0-11.0)
--- NOTE | 2018-11-25 14:00 | RAD ---
PORTABLE CHEST 1V History: FEVER Comparison: 11/20/2018 Findings: Single view of the chest is submitted. There are again stents of the superior chest bilaterally. There is increased left base opacity, also questionably of the right infrahilar region. There is no pneumothorax. There is no pneumothorax. Cardiac silhouette is enlarged although unchanged. Impression: 1. There is increased left base opacity, possible infiltrate poorly characterized due to the enlarged cardiac silhouette. Electronically signed by: Carlos Montiel MD (11/25/2018 1:57 PM) [id number]
--- NOTE | 2018-11-25 14:02 | RAD ---
Examination: FOOT RIGHT 3V History: WOUND ON RIGHT FOOT RECENT TOE REMOVAL SURGERY Comparison/Correlation: 09/13/2018 right foot 3 view x-ray exam Findings: Total 3 images of the right foot were obtained. Vascular calcifications noted. Amputation of the great toe distal phalanx in the distal aspect of the proximal phalanx is noted. Amputation of the fourth and fifth digits noted. Amputation of nearly the entire fourth metatarsal bone from the proximal shaft level distally is noted. Amputation of the fifth metatarsal bone from the proximal metaphyseal level noted. Soft tissue wound in this distribution noted. Soft tissue gas in this distribution is suspected. Surrounding bandages noted. Third digit proximal phalangeal midshaft fracture deformity is present with plantar angulation. Small calcaneal spur is present. Spurring along the dorsal talonavicular joint noted. Impression: Third digit proximal phalangeal fracture is new since the prior exam. Interval amputations of the fourth and fifth digits as well as much of the metatarsal bones. Surrounding soft tissue gas may relate to recent surgical intervention. Correlate with history in determining further evaluation if osteomyelitis is a concern. Electronically signed by: Mil Flores MD (11/25/2018 1:59 PM) [id number]
[2018-11-25] MEDS ORDERED: IV NORMAL SALINE 1000ML BAG 1,000 ML IV ONE (14:30)
[2018-11-25] MEDS ORDERED: IPRATRPIUM/ALBUTEROL 0.5/2.5MG 3 ML NEBU. NEB ONE (14:30)
[2018-11-25] MEDS ORDERED: VANCOMYCIN 2 GM in IV NORMAL SALINE 500ML BAG 500 ML IV ONE (14:30)
[2018-11-25 14:31] LABS: CALCIUM 9.2 mg/dL (8.5-10.1); CREATININE 8.2 mg/dL (0.7-1.3); GFR 8.3; POTASSIUM 4.1 mmol/L (3.5-5.1)
[2018-11-25 14:32] LABS: % BANDS 7 % (0-9); % BASOS 2 % (0-3); % EOS 1 % (0-5); % LYMPHS 1 % (24-48); % MONOS 11 % (0-10); % SEGS 78 % (35-66); PLT ESTIMATE ADEQUATE (ADEQUATE)
[2018-11-25 14:37] LABS: ALBUMIN 2.8 g/dL (3.4-5.0); ALBUMIN/GLOBULIN RATIO 0.5 (1.0-1.7); TOTAL BILIRUBIN 0.7 mg/dL (0.2-1.0); TOTAL PROTEIN 8.1 g/dL (6.4-8.2)
--- NOTE | 2018-11-25 15:14 | PHYS DOC ---
Past Medical History Past Medical History: A-Fib, Anxiety, Asthma, CAD, CHF, CVA, Diabetes-Type II, GERD, High Cholesterol, [place], Renal Disease, Renal Failure, TIA, Vascular Disease Additional Past Medical Histor: morbid obesity,LEFT ARM FISTULA PLACED ON MAR 30 Past Surgical History: Angioplasty, Other Additional Past Surgical Histo: HD SHUNT,TOE AMPUTATION,RIGHT ARM SX,RIGHT ARM FX,SCROTAL SX,HEART STENT Alcohol Use: None Drug Use: None Adult General Chief Complaint Chief Complaint: FEVER HPI HPI Patient is a 53 year old male with history of diabetes mellitus and right foot diabetic ulcer sent from clinic because of fever. Patient has had history of diabetes mellitus, chronic renal failure on dialysis, hypertension, dyslipidemia , left below-knee amputation and right fourth and fifth toes amputation in July 2018 that became complicated with infection and following with wound clinic. Patient had recent hospitalization for pneumonia and had PICC line with order vancomycin at home that was given because of nonfunctional line. Patient complaining of cough for one week with sputum and fever for the last 4 or 5 days as high as 2.9. Patient states he missed his dialysis 3 days ago because of fever. Patient had temperature of 102 today and wound clinic and sent to ER. Review of Systems Review of Systems Constitutional: Reports fever and chills] Eyes: Denies change in visual acuity, redness, or eye pain [] HENT: Denies nasal congestion or sore throat [] Respiratory: Reports cough and shortness of breath Cardiovascular: No additional information not addressed in HPI [] GI: Denies abdominal pain, nausea, vomiting, bloody stools or diarrhea [] : Denies dysuria or hematuria [] Musculoskeletal: Denies back pain or joint pain [] Integument: Denies rash or skin infection Neurologic: Denies headache, focal weakness or sensory changes [] Endocrine: Denies polyuria or polydipsia [] All other systems were reviewed and found to be within normal limits, except as documented in this note. Current Medications Current Medications Current Medications Medications (Trade) Dose Ordered Sig/[place] Start Time Stop Time Status Last Admin Dose Admin Acetaminophen (Tylenol) 1,000 mg 1X ONCE 11/25/18 12:45 11/25/18 12:48 DC 11/25/18 14:04 1,000 MG Albuterol/ Ipratropium (Duoneb) 3 ml 1X ONCE 11/25/18 14:30 4/15/19 14:31 DC 11/25/18 14:30 3 ML Levofloxacin/ Dextrose 150 ml @ 100 mls/hr 1X ONCE 11/25/18 14:30 11/25/18 15:59 DC 11/25/18 14:39 100 MLS/HR Sodium Chloride 1,000 ml @ 1,000 mls/hr 1X ONCE 11/25/18 14:30 11/25/18 15:29 DC 11/25/18 14:39 1,000 MLS/HR Vancomycin HCl 2 gm/Sodium Chloride 500 ml @ 250 mls/hr 1X ONCE 11/25/18 14:30 11/25/18 16:29 DC 11/25/18 14:30 250 MLS/HR Allergies Allergies Allergies Coded Allergies Type Severity Reaction Last Updated Verified iodine Allergy Severe THROAT SWELLING 09/24/18 Yes lisinopril Allergy Severe 09/24/18 Yes Fish Containing Products Allergy Intermediate 09/24/18 Yes Penicillins Allergy Intermediate SEE COMMENT 09/24/18 Yes piperacillin Allergy Intermediate Hives 09/24/18 Yes tazobactam Allergy Intermediate 09/24/18 Yes Physical Exam Physical Exam Constitutional: Well developed, well nourished, moderately distress, non-toxic appearance. [] HENT: Normocephalic, atraumatic, bilateral external ears normal, oropharynx dry , no oral exudates, nose normal. [] Eyes: PERRLA, EOMI, conjunctiva normal, no discharge. [] Neck: Normal range of motion, no tenderness, supple, no stridor. [] Cardiovascular:Heart rate regular rhythm, no murmur [] Lungs & Thorax: Respiratory distress with hyperventilation and tachypnea and intercostal retraction, bilateral rales and rhonchi[] Abdomen: Bowel sounds normal, soft, no tenderness, no masses, no pulsatile masses. [] Skin: Warm, dry, no erythema, no rash. [] Back: No tenderness, no CVA tenderness. [] Extremities: Left below-knee amputation, right diabetic ulcer in area of surgery of fourth and fifth amputated toe extending to the lateral side of fourth without drainage of pus or sign of abscess Neurologic: Alert and oriented X 3, normal motor function, normal sensory function, no focal deficits noted. [] Psychologic: Affect normal, judgement normal, mood normal. [] Current Patient Data Vital Signs Vital Signs Date Time Temp Pulse Resp B/P (MAP) Pulse Ox O2 Delivery O2 Flow Rate FiO2 11/25/18 14:00 101.4 101.4 11/25/18 13:30 105 171/70 (103) 11/25/18 13:00 91 11/25/18 12:17 16 Room Air Lab Values Laboratory Tests Test 11/25/18 13:50 White Blood Count 16.6 x10^3/uL (4.0-11.0) H Red Blood Count 2.96 x10^6/uL (4.30-5.70) L Hemoglobin 8.1 g/dL (13.0-17.5) L Hematocrit 25.8 % (39.0-53.0) L Mean Corpuscular Volume 87 fL (79-100) Mean Corpuscular Hemoglobin 28 pg (25-35) Mean Corpuscular Hemoglobin Concent 32 g/dL (31-37) Red Cell Distribution Width 16.2 % (11.5-14.5) H Platelet Count 199 x10^3/uL (140-400) Neutrophils (%) (Auto) 84 % (31-73) H Lymphocytes (%) (Auto) 4 % (24-48) L Monocytes (%) (Auto) 12 % (0-9) H Eosinophils (%) (Auto) 0 % (0-3) Basophils (%) (Auto) 1 % (0-3) Neutrophils # (Auto) 13.9 x10^3uL (1.8-7.7) H Lymphocytes # (Auto) 0.6 x10^3/uL (1.0-4.8) L Monocytes # (Auto) 1.9 x10^3/uL (0.0-1.1) H Eosinophils # (Auto) 0.1 x10^3/uL (0.0-0.7) Basophils # (Auto) 0.1 x10^3/uL (0.0-0.2) Segmented Neutrophils % 78 % (35-66) H Band Neutrophils % 7 % (0-9) Lymphocytes % 1 % (24-48) L Monocytes % 11 % (0-10) H Eosinophils % 1 % (0-5) Basophils % 2 % (0-3) Platelet Estimate Adequate (ADEQUATE) Sodium Level 133 mmol/L (136-145) L Potassium Level 4.1 mmol/L (3.5-5.1) Chloride Level 94 mmol/L (98-107) L Carbon Dioxide Level 25 mmol/L (21-32) Anion Gap 14 (6-14) Blood Urea Nitrogen 71 mg/dL (8-26) H Creatinine 8.2 mg/dL (0.7-1.3) H Estimated GFR (Cockcroft-Gault) 8.3 BUN/Creatinine Ratio 9 (6-20) Glucose Level 145 mg/dL (70-99) H Lactic Acid Level 1.1 mmol/L (0.4-2.0) Calcium Level 9.2 mg/dL (8.5-10.1) Total Bilirubin 0.7 mg/dL (0.2-1.0) Aspartate Amino Transferase (AST) 20 U/L (15-37) Alanine Aminotransferase (ALT) 13 U/L (16-63) L Alkaline Phosphatase 75 U/L (46-116) Total Protein 8.1 g/dL (6.4-8.2) Albumin 2.8 g/dL (3.4-5.0) L Albumin/Globulin Ratio 0.5 (1.0-1.7) L Laboratory Tests 11/25/18 13:50 Laboratory Tests 11/25/18 13:50 EKG EKG [] Radiology/Procedures Radiology/Procedures [facility] [address] [place] [address] IMAGING REPORT Signed PATIENT: BHAVYA WILKES ACCOUNT: [id number] : 1965 LOCATION: ER AGE: 53 SEX: M EXAM STATUS: REG ER ORD. PHYSICIAN: MINH RUBIO MD REASON: fever PROCEDURE: PORTABLE CHEST 1V PORTABLE CHEST 1V History: FEVER Comparison: 11/20/2018 Findings: Single view of the chest is submitted. There are again stents of the superior chest bilaterally. There is increased left base opacity, also questionably of the right infrahilar region. There is no pneumothorax. There is no pneumothorax. Cardiac silhouette is enlarged although unchanged. Impression: 1. There is increased left base opacity, possible infiltrate poorly characterized due to the enlarged cardiac silhouette. Electronically signed by: Bernardo Montiel MD (11/25/2018 1:57 PM) [id number] DICTATED and SIGNED BY: BERNARDO MONTIEL MD DATE: 11/25/18 1261 [facility] [address] [place] [address] IMAGING REPORT Signed PATIENT: BHAVYA WILKES ACCOUNT: [id number] : 1965 LOCATION: ER AGE: 53 SEX: M EXAM STATUS: REG ER ORD. PHYSICIAN: MINH RUBIO MD REASON: wound PROCEDURE: FOOT RIGHT 3V Examination: FOOT RIGHT 3V History: WOUND ON RIGHT FOOT RECENT TOE REMOVAL SURGERY Comparison/Correlation: 09/13/2018 right foot 3 view x-ray exam Findings: Total 3 images of the right foot were obtained. Vascular calcifications noted. Amputation of the great toe distal phalanx in the distal aspect of the proximal phalanx is noted. Amputation of the fourth and fifth digits noted. Amputation of nearly the entire fourth metatarsal bone from the proximal shaft level distally is noted. Amputation of the fifth metatarsal bone from the proximal metaphyseal level noted. Soft tissue wound in this distribution noted. Soft tissue gas in this distribution is suspected. Surrounding bandages noted. Third digit proximal phalangeal midshaft fracture deformity is present with plantar angulation. Small calcaneal spur is present. Spurring along the dorsal talonavicular joint noted. Impression: Third digit proximal phalangeal fracture is new since the prior exam. Interval amputations of the fourth and fifth digits as well as much of the metatarsal bones. Surrounding soft tissue gas may relate to recent surgical intervention. Correlate with history in determining further evaluation if osteomyelitis is a concern. Electronically signed by: Mil Bautista MD (11/25/2018 1:59 PM) [id number] DICTATED and SIGNED BY: MIL BAUTISTA MD DATE: 11/25/18 1354 Course & Med Decision Making Course & Med Decision Making Pertinent Labs and Imaging studies reviewed. (See chart for details) Evaluation of patient in ER showed 53-year-old male patient with multiple medical problems since from care because of fever. Patient had fever of 102.9 at arrival to ER for tachypnea and tachycardia and distress and treated with IV fluid even he had renal failure because of sign of sepsis and dehydration and fever. Dr. White on-call infectious specialist was consulted at 1429 and agreed to starting vancomycin and Levaquin. Patient did not have tachycardia or hypotension or altered level of consciousness and lactic acid was less than 2. Patient requiring admission for further evaluation and treatment. Discussed with Dr. Chang who is in agreement with admission. Discussed findings and plan with patient and family, who acknowledge understanding and agreement. Dragon Disclaimer Dragon Disclaimer This electronic medical record was generated, in whole or in part, using a voice recognition dictation system. Departure Departure Impression: Primary Impression: Sepsis Additional Impressions: HCAP (healthcare-associated pneumonia) ESRD (end stage renal disease) on dialysis Diabetic infection of right foot History of left below knee amputation Symptomatic anemia Acute respiratory distress Fever Toe fracture, right Disposition: 09 ADMITTED INPATIENT (at 1503) Condition: GUARDED Referrals: MARIA ISABEL LOPEZ DO (PCP) Critical Care Time Critical care time was 100 minutes exclusive of procedures. Problem Qualifiers Primary Impression: Sepsis Sepsis type: sepsis due to unspecified organism Qualified Codes: A41.9 - Sepsis, unspecified organism Additional Impressions: Fever Fever type: unspecified Qualified Codes: R50.9 - Fever, unspecified Toe fracture, right Encounter type: sequela Toe: unspecified toe Fracture type: closed Physeal involvement: unspecified Qualified Codes: S92.911S - Unspecified fracture of right toe(s), sequela MINH RUBIO MD Nov 25, 2018 15:14
[2018-11-25 16:22] LABS: INFLUENZA A PATIENT NEGATIVE (NEGATIVE); INFLUENZA B PATIENT NEGATIVE (NEGATIVE)
[2018-11-25] MEDS: HYDROcodone/APAP 7.5/325MG 1 TAB TABLET PO PRN ×2 (17:18→22:46)
[2018-11-25] MEDS ORDERED: levOFLOXacin PER PHARMACY. MC PRN (17:30)
[2018-11-25] MEDS ORDERED: 0.9 % SODIUM CHLORIDE 10 ML DISP.SYRIN. IV PRN (17:30)
--- NOTE | 2018-11-25 17:44 | PDOC1 ---
History and Physical Date of Admission Date of Admission DATE: 11/25/18 TIME: 17:25 Identification/Chief Complaint Chief Complaint cough sob Problems: (1) HCAP (healthcare-associated pneumonia) Source Source: Chart review, Patient History of Present Illness History of Present Illness 53 year old with hx of Noncompliance, ESRD, on dialysis, AFib, anxiety, asthma , coronary artery disease, CHF, stroke, diabetes, GERD, hypertension, hyperlipidemia, myocardial infarction, TIA, peripheral vascular disease, morbid obesity, left arm fistula, right fourth and fifth toe amputations, left below the knee amputation, scrotal surgery, cardiac stents recent admission in Sep for volume overload for missed HD who presents to the ED with 4 day hx of cough sob, and fever of 103. patient missed HD sessions. patient in wound clinic today for dressing changes and found to have fever so sent directly to ED for further evaluation. fever of 102 in ED. BP stable, normal lactate. cultures drawn and concern for infiltrate in lung. started on Vanc and Levaquin and admitted to ED. only 1 PIV obtained in ED. Past Medical History Cardiovascular: AFIB, CAD, CHF, HTN, NE, Hyperlipidemia, Other Pulmonary: COPD CENTRAL NERVOUS SYSTEM: Dementia, Periperal neuropathy, Seizure, TIA GI: Diverticulosis, Other Heme/Onc: Anemia NOS Hepatobiliary: No pertinent hx Psych: Anxiety, Depression Musculoskeletal: Osteoarthritis Rheumatologic: Rheumatoid arthritis Infectious disease: No pertinent hx Renal/: Chronic renal failure Endocrine: Diabetes, Hypothyroidism, Hyperparathyroidism Past Surgical History Past Surgical History: Cataract Removal, Total knee replacement, Other Family History Family History: Diabetes, Hypertension Family History: Parent Social History ALCOHOL: none Drugs: None Current Problem List Problem List Problems Medical Problems: (1) Acute respiratory distress Status: Acute (2) Diabetic infection of right foot Status: Acute (3) Fever Status: Acute (4) HCAP (healthcare-associated pneumonia) Status: Acute (5) History of left below knee amputation Status: Acute (6) Sepsis Status: Acute (7) Symptomatic anemia Status: Acute (8) Toe fracture, right Status: Acute Current Medications Current Medications Current Medications Acetaminophen (Tylenol) 1,000 mg 1X ONCE PO Last administered on 11/25/18at 14: 04; Start 11/25/18 at 12:45; Stop 11/25/18 at 12:48; Status DC Sodium Chloride 500 ml @ 500 mls/hr 1X ONCE IV Last administered on at 14:00; Start 11/25/18 at 12:45; Stop 11/25/18 at 13:44; Status DC Sodium Chloride 1,000 ml @ 1,000 mls/hr 1X ONCE IV Last administered on at 14:39; Start 11/25/18 at 14:30; Stop 11/25/18 at 15:29; Status DC Albuterol/ Ipratropium (Duoneb) 3 ml 1X ONCE NEB Last administered on at 14:30; Start 11/25/18 at 14:30; Stop 11/25/18 at 14:31; Status DC Vancomycin HCl 2 gm/Sodium Chloride 500 ml @ 250 mls/hr 1X ONCE IV Last administered on 11/25/18at 14:30; Start 11/25/18 at 14:30; Stop 11/25/18 at 16:29 ; Status DC Levofloxacin/ Dextrose 150 ml @ 100 mls/hr 1X ONCE IV Last administered on at 14:39; Start 11/25/18 at 14:30; Stop 11/25/18 at 15:59; Status DC Acetaminophen/ Hydrocodone Bitart (Lortab 7.5/325) 1 tab PRN Q4HRS PRN PO PAIN Last administered on 11/25/18at 17:18; Start 11/25/18 at 17:15 Sodium Chloride (Normal Saline Flush) 3 ml QSHIFT PRN IV AFTER MEDS AND BLOOD DRAWS; Start 11/25/18 at 17:30 Active Scripts Active Isosorbide Mononitrate Er (Isosorbide Mononitrate) 30 Mg Tab.er.24h 30 Mg PO DAILY 30 Days Reported Aspirin 325 Mg Tablet 1 Tab PO DAILY Coreg (Carvedilol) 3.125 Mg Tablet 3.125 Mg PO BIDWMEALS Magnesium (Magnesium Oxide) 400 Mg Capsule 400 Mg PO DAILY Levothyroxine Sodium 175 Mcg Tablet 175 Mcg PO DAILYAC Plavix (Clopidogrel Bisulfate) 75 Mg Tablet 75 Mg PO DAILY Calcium Carbonate 500 Mg Tablet 500 Mg PO BID Lipitor (Atorvastatin Calcium) 80 Mg Tablet 40 Mg PO HS Keppra (Levetiracetam) 1,000 Mg Tablet 1 Tab PO BID Endocet 10-325 Mg Tablet (Oxycodone Hcl/Acetaminophen) 1 Each Tablet 1 Tab PO QID Flovent 110MCG Hfa (Fluticasone Propionate) 12 Gm Aer.w.adap 2 Puff IH BID Zolpidem Tartrate 5 Mg Tablet 1 Tab PO QHS Mirapex (Pramipexole Di-Hcl) 0.25 Mg Tablet 1 Tab PO DAILY Tylenol (Acetaminophen) 325 Mg Tablet 650 Mg PO PRN Q6HRS PRN Famotidine 20 Mg Tablet 20 Mg PO HS Ventolin Hfa Inhaler (Albuterol Sulfate) 18 Gm Hfa.aer.ad 1 Puff INH Q6HRS PRN Allergies Allergies: Coded Allergies: iodine (Verified Allergy, Severe, THROAT SWELLING, 09/24/18) lisinopril (Verified Allergy, Severe, 09/24/18) Fish Containing Products (Verified Allergy, Intermediate, 09/24/18) Penicillins (Verified Allergy, Intermediate, SEE COMMENT, 09/24/18) Tolerates meropenem and Cephalosporins piperacillin (Verified Allergy, Intermediate, Hives, 09/24/18) Tolerates meropenem tazobactam (Verified Allergy, Intermediate, 09/24/18) ROS Review of System CONSTITUTIONAL: No fever or chills EYES: No recent changes SKIN: No rash or itching CARDIOVASCULAR: No chest pain, syncope, palpitations, or edema RESPIRATORY: No SOB or cough GASTROINTESTINAL: No nausea, vomiting or abdominal pain NEUROLOGICAL: No headaches or weakness ENDOCRINE: No cold or heat intolerance GENITOURINARY: No urgency or frequency of urination MUSCULOSKELETAL: No back pain or joint pain LYMPHATICS: No enlarged lymph nodes PSYCHIATRIC: No anxiety or depression Physical Exam Physical Exam GENERAL: No apparent distress. Alert and oriented. HEENT: Head normocephalic, atraumatic. NECK: Supple LUNGS: Clear to auscultation. HEART: RRR, S1, S2 present, pulses intact ABDOMEN: Soft, positive bowel sounds. EXTREMITIES: No cyanosis or edema. right foot wound wrapped; LUE dialysis access site NEUROLOGIC: Normal speech, normal tone PSYCHIATRIC: Normal affect, normal mood. SKIN: No ulceration. Vitals Vitals Vital Signs Date Time Temp Pulse Resp B/P (MAP) Pulse Ox O2 Delivery O2 Flow Rate FiO2 11/25/18 17:18 18 95 Room Air 11/25/18 15:00 96 113/55 (74) 2.0 11/25/18 14:00 101.4 101.4 Labs Labs Laboratory Tests Test 11/25/18 13:50 11/25/18 15:22 White Blood Count 16.6 x10^3/uL (4.0-11.0) Red Blood Count 2.96 x10^6/uL (4.30-5.70) Hemoglobin 8.1 g/dL (13.0-17.5) Hematocrit 25.8 % (39.0-53.0) Mean Corpuscular Volume 87 fL (79-100) Mean Corpuscular Hemoglobin 28 pg (25-35) Mean Corpuscular Hemoglobin Concent 32 g/dL (31-37) Red Cell Distribution Width 16.2 % (11.5-14.5) Platelet Count 199 x10^3/uL (140-400) Neutrophils (%) (Auto) 84 % (31-73) Lymphocytes (%) (Auto) 4 % (24-48) Monocytes (%) (Auto) 12 % (0-9) Eosinophils (%) (Auto) 0 % (0-3) Basophils (%) (Auto) 1 % (0-3) Neutrophils # (Auto) 13.9 x10^3uL (1.8-7.7) Lymphocytes # (Auto) 0.6 x10^3/uL (1.0-4.8) Monocytes # (Auto) 1.9 x10^3/uL (0.0-1.1) Eosinophils # (Auto) 0.1 x10^3/uL (0.0-0.7) Basophils # (Auto) 0.1 x10^3/uL (0.0-0.2) Segmented Neutrophils % 78 % (35-66) Band Neutrophils % 7 % (0-9) Lymphocytes % 1 % (24-48) Monocytes % 11 % (0-10) Eosinophils % 1 % (0-5) Basophils % 2 % (0-3) Platelet Estimate Adequate (ADEQUATE) Sodium Level 133 mmol/L (136-145) Potassium Level 4.1 mmol/L (3.5-5.1) Chloride Level 94 mmol/L (98-107) Carbon Dioxide Level 25 mmol/L (21-32) Anion Gap 14 (6-14) Blood Urea Nitrogen 71 mg/dL (8-26) Creatinine 8.2 mg/dL (0.7-1.3) Estimated GFR (Cockcroft-Gault) 8.3 BUN/Creatinine Ratio 9 (6-20) Glucose Level 145 mg/dL (70-99) Lactic Acid Level 1.1 mmol/L (0.4-2.0) Calcium Level 9.2 mg/dL (8.5-10.1) Total Bilirubin 0.7 mg/dL (0.2-1.0) Aspartate Amino Transf (AST/SGOT) 20 U/L (15-37) Alanine Aminotransferase (ALT/SGPT) 13 U/L (16-63) Alkaline Phosphatase 75 U/L (46-116) Total Protein 8.1 g/dL (6.4-8.2) Albumin 2.8 g/dL (3.4-5.0) Albumin/Globulin Ratio 0.5 (1.0-1.7) Influenza Type A Antigen Negative (NEGATIVE) Influenza Type B Antigen Negative (NEGATIVE) Laboratory Tests Test 11/25/18 13:50 11/25/18 15:22 White Blood Count 16.6 x10^3/uL (4.0-11.0) Red Blood Count 2.96 x10^6/uL (4.30-5.70) Hemoglobin 8.1 g/dL (13.0-17.5) Hematocrit 25.8 % (39.0-53.0) Mean Corpuscular Volume 87 fL (79-100) Mean Corpuscular Hemoglobin 28 pg (25-35) Mean Corpuscular Hemoglobin Concent 32 g/dL (31-37) Red Cell Distribution Width 16.2 % (11.5-14.5) Platelet Count 199 x10^3/uL (140-400) Neutrophils (%) (Auto) 84 % (31-73) Lymphocytes (%) (Auto) 4 % (24-48) Monocytes (%) (Auto) 12 % (0-9) Eosinophils (%) (Auto) 0 % (0-3) Basophils (%) (Auto) 1 % (0-3) Neutrophils # (Auto) 13.9 x10^3uL (1.8-7.7) Lymphocytes # (Auto) 0.6 x10^3/uL (1.0-4.8) Monocytes # (Auto) 1.9 x10^3/uL (0.0-1.1) Eosinophils # (Auto) 0.1 x10^3/uL (0.0-0.7) Basophils # (Auto) 0.1 x10^3/uL (0.0-0.2) Segmented Neutrophils % 78 % (35-66) Band Neutrophils % 7 % (0-9) Lymphocytes % 1 % (24-48) Monocytes % 11 % (0-10) Eosinophils % 1 % (0-5) Basophils % 2 % (0-3) Platelet Estimate Adequate (ADEQUATE) Sodium Level 133 mmol/L (136-145) Potassium Level 4.1 mmol/L (3.5-5.1) Chloride Level 94 mmol/L (98-107) Carbon Dioxide Level 25 mmol/L (21-32) Anion Gap 14 (6-14) Blood Urea Nitrogen 71 mg/dL (8-26) Creatinine 8.2 mg/dL (0.7-1.3) Estimated GFR (Cockcroft-Gault) 8.3 BUN/Creatinine Ratio 9 (6-20) Glucose Level 145 mg/dL (70-99) Lactic Acid Level 1.1 mmol/L (0.4-2.0) Calcium Level 9.2 mg/dL (8.5-10.1) Total Bilirubin 0.7 mg/dL (0.2-1.0) Aspartate Amino Transf (AST/SGOT) 20 U/L (15-37) Alanine Aminotransferase (ALT/SGPT) 13 U/L (16-63) Alkaline Phosphatase 75 U/L (46-116) Total Protein 8.1 g/dL (6.4-8.2) Albumin 2.8 g/dL (3.4-5.0) Albumin/Globulin Ratio 0.5 (1.0-1.7) Influenza Type A Antigen Negative (NEGATIVE) Influenza Type B Antigen Negative (NEGATIVE) VTE Prophylaxis Ordered VTE Prophylaxis Devices: Yes VTE Pharmacological Prophylaxi: Yes Assessment/Plan Assessment/Plan ASSESSMENT AND PLAN Acut Hypoxic Resp Failure secondary to HCAP, prob GN bacteria - admit to ICU given septic picture: tachy, fever, leukocytosis - normal lactate however - continue levaquin and vanc - follow blood cultures - check CT chest - consult anesthesia for central line placement. only 1 PIV present Leukocytosis - follow cbc, continue abx End-stage renal disease. nephro consult Diastolic heart failure. Dialysis as per the renal service. continue home meds Coronary artery disease. No chest pain. No significant elevation in troponin. History of atrial fibrillation. Rate controlled. Continue medications. hyperlipidemia. Continue statin medications. TIA history. Continue present medications. Peripheral arterial disease. Status post left BKA. Continue medical treatment. Right foot wound: wound care consult Morbid obesity DVT PPX: heparin sq full code follow in ICU overnight, then transfer out in AM GOMEZ SUMNER MD Nov 25, 2018 17:44
[2018-11-25] MEDS ORDERED: ALBUTEROL SULFATE 2.5 MG/3 ML NEBU. NEB PRN (17:45)
[2018-11-25] MEDS ORDERED: MIDAZOLAM HCL/PF 5 MG/5 ML VIAL. ONE ×2 (17:58→18:00)
[2018-11-25] MEDS: VANCOMYCIN PER PHARMACY MC PRN (17:59)
--- NOTE | 2018-11-25 18:00 | NUR ---
Pharmacy Vancomycin Dosing Note S:Consulted to monitor and dose vancomycin started 11/25/18. O:BHAVAY WILKES is a 53 year old M with HCAP . Height: 6 feet, 6 inches Weight: 141.181408 kg Jenkins Body Weight: 91.40 Adjusted Body Weight: 111.64 Dosing Weight: Actual Other Antibiotics: LEVAQUIN LABS: Last BUN: 71 Last Creatinine: 8.2 Creatinine Clearance: HD mL/min Last WBC: 16.6 Last Procalcitonin: Tmax (past 24 hours): 102.3 Microbiology: I/O: Drug Levels: Last level: on at Last dose given 11/25/18 at 1430 Vancomycin Dosing: Loading Dose: x1 Dosing Weight: Actual Target Trough: 15-20 A: Based on: Body weight and renal function P: 1. Vancomycin 2000 mg IV One Time 2. Follow up Random level on 11/27/18 at 0600 3. Pharmacy will continue to monitor, follow and adjust therapy as needed. JW COREAS RPH, 11/25/18 1800
[2018-11-25] MEDS: BUDESONIDE 0.5 MG/2 ML NEBU. NEB SCH (19:40)
[2018-11-25] MEDS: CARVEDILOL 3.125 MG TABLET. PO SCH (19:49)
[2018-11-25] MEDS: levETIRAcetam 500 MG TABLET PO SCH (20:34)
[2018-11-25] MEDS: ZOLPIDEM 5 MG TABLET. PO SCH (20:34)
[2018-11-25] MEDS: ATORVASTATIN CALCIUM 40 MG TABLET. PO SCH (20:34)
[2018-11-25] MEDS: oxyCODONE/APAP 10/325 1 TAB TABLET PO SCH (20:34)
[2018-11-25] MEDS: CALCIUM CARBONATE 500 MG TABLET PO SCH (20:34)
[2018-11-25] MEDS ORDERED: FAMOTIDINE 20 MG TABLET. PO SCH (21:00)
[2018-11-25] MEDS ORDERED: NON FORMULARY ITEM (Fluticasone Propionate (Flovent 110MCG Hfa) 2 PUFF) IH SCH (21:00)
[2018-11-25] MEDS: HEPARIN for SUB-Q USE 5,000 UNIT/ML VIAL. SQ SCH (22:00)
[2018-11-26] VITALS (12 sets, daily range): BP systolic 93–142; BP diastolic 46–72
[2018-11-26] MEDS: HEPARIN for SUB-Q USE 5,000 UNIT/ML VIAL. SQ SCH ×3 (06:24→19:20)
[2018-11-26] MEDS: ASPIRIN 325 MG TABLET PO SCH (08:01)
[2018-11-26] MEDS: CLOPIDOGREL BISULFATE 75 MG TABLET PO SCH (08:01)
[2018-11-26] MEDS: LEVOTHYROXINE 175 MCG TABLET PO SCH (08:02)
[2018-11-26] MEDS: oxyCODONE/APAP 10/325 1 TAB TABLET PO SCH ×4 (08:02→20:53)
[2018-11-26] MEDS: CALCIUM CARBONATE 500 MG TABLET PO SCH ×2 (08:02→20:53)
[2018-11-26] MEDS: MAGNESIUM OXIDE 400 MG TABLET PO SCH (08:02)
[2018-11-26] MEDS: PRAMIPEXOLE 0.25 MG TABLET. PO SCH (08:02)
[2018-11-26] MEDS: levETIRAcetam 500 MG TABLET PO SCH ×2 (08:02→20:53)
[2018-11-26] MEDS: ISOSORBIDE MONONITRATE ER 30 MG TAB.ER.24H PO SCH (08:02)
[2018-11-26] MEDS: CARVEDILOL 3.125 MG TABLET. PO SCH ×2 (08:03→16:02)
[2018-11-26] MEDS: LACTOBACILLUS RHAMNOSUS GG 1 CAPSULE. PO SCH ×2 (08:03→20:53)
--- NOTE | 2018-11-26 08:26 | RAD ---
CT of the chest without contrast, 11/25/2018: HISTORY: Fever, sepsis Noncontrast scans were obtained and compared to a study from 05/02/2016. The thoracic aorta is unremarkable. The heart is mildly enlarged. There are extensive coronary artery calcifications. Several small mediastinal lymph nodes are seen without definite pathologic enlargement. There are vascular stents in the innominate veins bilaterally. There is only minimal streaky atelectasis or scarring in the posterior costophrenic angle on the left. No significant pulmonary consolidation or mass is seen. There is no evidence of pleural fluid. Mildly prominent axillary and right subpectoral lymph nodes seen on the previous study have regressed. There are moderate scattered hypertrophic degenerative changes in the spine with a mild thoracic scoliosis. Vertebroplasty change is now evident related to an L1 vertebral compression fracture. IMPRESSION: 1. Cardiomegaly with extensive coronary artery disease. 2. Minimal left basilar atelectasis. PQRS Compliance Statement: One or more of the following individualized dose reduction techniques were utilized for this examination: 1. Automated exposure control 2. Adjustment of the mA and/or kV according to patient size 3. Use of iterative reconstruction technique Electronically signed by: Terrence Rob MD (11/26/2018 8:23 AM) [facility]
[2018-11-26] MEDS: BUDESONIDE 0.5 MG/2 ML NEBU. NEB SCH ×2 (08:41→20:13)
--- NOTE | 2018-11-26 09:40 | PDOC ---
Infectious Disease Note Vital Signs: Vital Signs Vital Signs Date Time Temp Pulse Resp B/P (MAP) Pulse Ox O2 Delivery O2 Flow Rate FiO2 11/26/18 09:06 Room Air 11/26/18 08:03 86 142/64 11/26/18 08:00 98.6 24 97 98.6 11/25/18 15:00 2.0 Medications: Inpatient Meds: Current Medications Medications (Trade) Dose Ordered Sig/[place] Start Time Stop Time Status Last Admin Dose Admin Acetaminophen (Tylenol) 650 mg PRN Q6HRS PRN 11/25/18 17:45 Acetaminophen/ Hydrocodone Bitart (Lortab 7.5/325) 1 tab PRN Q4HRS PRN 11/25/18 17:15 11/25/18 22:46 1 TAB Albuterol Sulfate (Ventolin Neb Soln) 2.5 mg PRN Q6HRS PRN 11/25/18 17:45 Albuterol/ Ipratropium (Duoneb) 3 ml 1X ONCE 11/25/18 14:30 11/25/18 14:31 DC 11/25/18 14:30 3 ML Aspirin ([place] Aspirin) 325 mg DAILY 11/26/18 09:00 11/26/18 08:01 325 MG Atorvastatin Calcium (Lipitor) 40 mg QHS 11/25/18 21:00 11/25/18 20:34 40 MG Budesonide (Pulmicort) 0.5 mg RTBID 11/25/18 20:00 11/26/18 08:41 0.5 MG Calcium Carbonate/ Glycine (Oscal) 500 mg BID 11/25/18 21:00 11/26/18 08:02 500 MG Carvedilol (Coreg) 3.125 mg BIDWMEALS 11/25/18 18:30 11/26/18 08:03 3.125 MG Clopidogrel Bisulfate (Plavix) 75 mg DAILY 11/26/18 09:00 11/26/18 08:01 75 MG Famotidine (Pepcid) 20 mg Q48H 11/27/18 21:00 Heparin Sodium (Porcine) (Heparin Sodium) 5,000 unit Q8HRS 11/25/18 22:00 11/26/18 06:24 5,000 UNIT Isosorbide Mononitrate (Imdur) 30 mg DAILY 11/26/18 09:00 11/26/18 08:02 30 MG Lactobacillus Rhamnosus (Culturelle) 1 cap BID 11/26/18 09:00 11/26/18 08:03 1 CAP Levetiracetam (Keppra) 1,000 mg BID 11/25/18 21:00 11/26/18 08:02 1,000 MG Levofloxacin/ Dextrose 100 ml @ 100 mls/hr Q48H 11/27/18 14:00 11/27/18 14:00 DC Levofloxacin/ Dextrose (Levaquin Per Pharmacy) 1 each PRN DAILY PRN 11/25/18 17:30 11/26/18 09:31 DC Levothyroxine Sodium (Synthroid) 175 mcg DAILYAC 11/26/18 07:30 11/26/18 08:02 175 MCG Magnesium Oxide (Magnesium Oxide) 400 mg DAILY 11/26/18 09:00 11/26/18 08:02 400 MG Meropenem 500 mg/ Sodium Chloride 50 ml @ 100 mls/hr DAILY 11/26/18 10:00 Midazolam HCl (Versed) 5 mg STK-MED ONCE 11/25/18 18:00 11/26/18 07:42 DC Non-Formulary Medication (Fluticasone Propionate (Flovent 110MCG Hfa)) 2 puff BID 11/25/18 21:00 UNV Oxycodone/ Acetaminophen (Percocet 10/325) 1 tab QID 11/25/18 21:00 11/26/18 08:02 1 TAB Pramipexole Dihydrochloride (miraPEX) 0.25 mg DAILY 11/26/18 09:00 11/26/18 08:02 0.25 MG Sodium Chloride (Normal Saline Flush) 3 ml QSHIFT PRN 11/25/18 17:30 Vancomycin HCl (Vanco Per Pharmacy) 1 each PRN DAILY PRN 11/25/18 17:30 11/25/18 17:59 1 EACH Vancomycin HCl (Vancomycin Random Level) 1 each 1X ONCE 11/27/18 06:00 11/27/18 06:01 Vancomycin HCl 2 gm/Sodium Chloride 500 ml @ 250 mls/hr 1X ONCE 11/25/18 14:30 11/25/18 16:29 DC 11/25/18 14:30 250 MLS/HR Zolpidem Tartrate (Ambien) 5 mg QHS 11/25/18 21:00 11/25/18 20:34 5 MG Labs: Lab Laboratory Tests Test 11/25/18 13:50 11/25/18 15:22 11/26/18 08:20 White Blood Count 16.6 x10^3/uL (4.0-11.0) Red Blood Count 2.96 x10^6/uL (4.30-5.70) Hemoglobin 8.1 g/dL (13.0-17.5) Hematocrit 25.8 % (39.0-53.0) Mean Corpuscular Volume 87 fL (79-100) Mean Corpuscular Hemoglobin 28 pg (25-35) Mean Corpuscular Hemoglobin Concent 32 g/dL (31-37) Red Cell Distribution Width 16.2 % (11.5-14.5) Platelet Count 199 x10^3/uL (140-400) Neutrophils (%) (Auto) 84 % (31-73) Lymphocytes (%) (Auto) 4 % (24-48) Monocytes (%) (Auto) 12 % (0-9) Eosinophils (%) (Auto) 0 % (0-3) Basophils (%) (Auto) 1 % (0-3) Neutrophils # (Auto) 13.9 x10^3uL (1.8-7.7) Lymphocytes # (Auto) 0.6 x10^3/uL (1.0-4.8) Monocytes # (Auto) 1.9 x10^3/uL (0.0-1.1) Eosinophils # (Auto) 0.1 x10^3/uL (0.0-0.7) Basophils # (Auto) 0.1 x10^3/uL (0.0-0.2) Segmented Neutrophils % 78 % (35-66) Band Neutrophils % 7 % (0-9) Lymphocytes % 1 % (24-48) Monocytes % 11 % (0-10) Eosinophils % 1 % (0-5) Basophils % 2 % (0-3) Platelet Estimate Adequate (ADEQUATE) Sodium Level 133 mmol/L (136-145) Potassium Level 4.1 mmol/L (3.5-5.1) Chloride Level 94 mmol/L (98-107) Carbon Dioxide Level 25 mmol/L (21-32) Anion Gap 14 (6-14) Blood Urea Nitrogen 71 mg/dL (8-26) Creatinine 8.2 mg/dL (0.7-1.3) Estimated GFR (Cockcroft-Gault) 8.3 BUN/Creatinine Ratio 9 (6-20) Glucose Level 145 mg/dL (70-99) Lactic Acid Level 1.1 mmol/L (0.4-2.0) Calcium Level 9.2 mg/dL (8.5-10.1) Total Bilirubin 0.7 mg/dL (0.2-1.0) Aspartate Amino Transf (AST/SGOT) 20 U/L (15-37) Alanine Aminotransferase (ALT/SGPT) 13 U/L (16-63) Alkaline Phosphatase 75 U/L (46-116) Total Protein 8.1 g/dL (6.4-8.2) Albumin 2.8 g/dL (3.4-5.0) Albumin/Globulin Ratio 0.5 (1.0-1.7) Influenza Type A Antigen Negative (NEGATIVE) Influenza Type B Antigen Negative (NEGATIVE) Glucose (Fingerstick) 109 mg/dL (70-99) Objective: Assessment: Pt seen and examined IMP RT 2nd and 3rd toe pain, fracture of rt 3rd toe RT foot infection Fever esrd on hd H/O noncomplaince Plan: Plan of Care Cont vanc dc levo merrem consult vascular surgery wound vac per wound team f/u armando D/W RN Thank you [phone] BHAVYA LIANG MD Nov 26, 2018 09:40
[2018-11-26] MEDS: MEROPENEM 500 MG in IV NORMAL SALINE 50ML 50 ML IV SCH (10:18)
--- NOTE | 2018-11-26 10:59 | PDOC ---
PROGRESS NOTES Chief Complaint Chief Complaint RT 2nd and 3rd toe pain, fracture of rt 3rd toe RT foot infection Fever esrd on hd H/O noncomplaince History of Present Illness History of Present Illness 53 year old with hx of Noncompliance, ESRD, on dialysis, AFib, anxiety, asthma , coronary artery disease, CHF, stroke, diabetes, GERD, hypertension, hyperlipidemia, myocardial infarction, TIA, peripheral vascular disease, morbid obesity, left arm fistula, right fourth and fifth toe amputations, left below the knee amputation, scrotal surgery, cardiac stents recent admission in Sep for volume overload for missed HD who presents to the ED with 4 day hx of cough sob, and fever of 103. patient missed HD sessions. patient in wound clinic 11/25 for dressing changes and found to have fever so sent directly to ED for further evaluation. fever of 102 in ED. BP stable, normal lactate. cultures drawn and concern for infiltrate in lung. started on Vanc and Levaquin and admitted to ED. He feels a bit better than yesterday, but still a little short of breath. Wishes to keep his right foot if possible Plan: Consult vascular surgery, ID Vitals Vitals Vital Signs Date Time Temp Pulse Resp B/P (MAP) Pulse Ox O2 Delivery O2 Flow Rate FiO2 11/26/18 09:06 Room Air 11/26/18 09:00 82 25 100/48 (65) 95 11/26/18 08:00 98.6 98.6 11/25/18 15:00 2.0 Physical Exam General: Alert, Oriented X3, Cooperative Lungs: Clear Abdomen: Normal bowel sounds, Soft Skin: Other (Right 2nd MTP joint swollen) Labs LABS Laboratory Tests Test 11/25/18 13:50 11/25/18 15:22 11/26/18 08:20 White Blood Count 16.6 x10^3/uL (4.0-11.0) Red Blood Count 2.96 x10^6/uL (4.30-5.70) Hemoglobin 8.1 g/dL (13.0-17.5) Hematocrit 25.8 % (39.0-53.0) Mean Corpuscular Volume 87 fL (79-100) Mean Corpuscular Hemoglobin 28 pg (25-35) Mean Corpuscular Hemoglobin Concent 32 g/dL (31-37) Red Cell Distribution Width 16.2 % (11.5-14.5) Platelet Count 199 x10^3/uL (140-400) Neutrophils (%) (Auto) 84 % (31-73) Lymphocytes (%) (Auto) 4 % (24-48) Monocytes (%) (Auto) 12 % (0-9) Eosinophils (%) (Auto) 0 % (0-3) Basophils (%) (Auto) 1 % (0-3) Neutrophils # (Auto) 13.9 x10^3uL (1.8-7.7) Lymphocytes # (Auto) 0.6 x10^3/uL (1.0-4.8) Monocytes # (Auto) 1.9 x10^3/uL (0.0-1.1) Eosinophils # (Auto) 0.1 x10^3/uL (0.0-0.7) Basophils # (Auto) 0.1 x10^3/uL (0.0-0.2) Segmented Neutrophils % 78 % (35-66) Band Neutrophils % 7 % (0-9) Lymphocytes % 1 % (24-48) Monocytes % 11 % (0-10) Eosinophils % 1 % (0-5) Basophils % 2 % (0-3) Platelet Estimate Adequate (ADEQUATE) Sodium Level 133 mmol/L (136-145) Potassium Level 4.1 mmol/L (3.5-5.1) Chloride Level 94 mmol/L (98-107) Carbon Dioxide Level 25 mmol/L (21-32) Anion Gap 14 (6-14) Blood Urea Nitrogen 71 mg/dL (8-26) Creatinine 8.2 mg/dL (0.7-1.3) Estimated GFR (Cockcroft-Gault) 8.3 BUN/Creatinine Ratio 9 (6-20) Glucose Level 145 mg/dL (70-99) Lactic Acid Level 1.1 mmol/L (0.4-2.0) Calcium Level 9.2 mg/dL (8.5-10.1) Total Bilirubin 0.7 mg/dL (0.2-1.0) Aspartate Amino Transf (AST/SGOT) 20 U/L (15-37) Alanine Aminotransferase (ALT/SGPT) 13 U/L (16-63) Alkaline Phosphatase 75 U/L (46-116) Total Protein 8.1 g/dL (6.4-8.2) Albumin 2.8 g/dL (3.4-5.0) Albumin/Globulin Ratio 0.5 (1.0-1.7) Influenza Type A Antigen Negative (NEGATIVE) Influenza Type B Antigen Negative (NEGATIVE) Glucose (Fingerstick) 109 mg/dL (70-99) Assessment and Plan Assessmemt and Plan Problems Medical Problems: (1) Acute respiratory distress Status: Acute (2) Diabetic infection of right foot Status: Acute (3) Fever Status: Acute (4) HCAP (healthcare-associated pneumonia) Status: Acute (5) History of left below knee amputation Status: Acute (6) Sepsis Status: Acute (7) Symptomatic anemia Status: Acute (8) Toe fracture, right Status: Acute Comment Review of Relevant I have reviewed the following items lila (where applicable) has been applied. Labs Laboratory Tests Test 11/25/18 13:50 11/25/18 15:22 11/26/18 08:20 White Blood Count 16.6 x10^3/uL (4.0-11.0) Red Blood Count 2.96 x10^6/uL (4.30-5.70) Hemoglobin 8.1 g/dL (13.0-17.5) Hematocrit 25.8 % (39.0-53.0) Mean Corpuscular Volume 87 fL (79-100) Mean Corpuscular Hemoglobin 28 pg (25-35) Mean Corpuscular Hemoglobin Concent 32 g/dL (31-37) Red Cell Distribution Width 16.2 % (11.5-14.5) Platelet Count 199 x10^3/uL (140-400) Neutrophils (%) (Auto) 84 % (31-73) Lymphocytes (%) (Auto) 4 % (24-48) Monocytes (%) (Auto) 12 % (0-9) Eosinophils (%) (Auto) 0 % (0-3) Basophils (%) (Auto) 1 % (0-3) Neutrophils # (Auto) 13.9 x10^3uL (1.8-7.7) Lymphocytes # (Auto) 0.6 x10^3/uL (1.0-4.8) Monocytes # (Auto) 1.9 x10^3/uL (0.0-1.1) Eosinophils # (Auto) 0.1 x10^3/uL (0.0-0.7) Basophils # (Auto) 0.1 x10^3/uL (0.0-0.2) Segmented Neutrophils % 78 % (35-66) Band Neutrophils % 7 % (0-9) Lymphocytes % 1 % (24-48) Monocytes % 11 % (0-10) Eosinophils % 1 % (0-5) Basophils % 2 % (0-3) Platelet Estimate Adequate (ADEQUATE) Sodium Level 133 mmol/L (136-145) Potassium Level 4.1 mmol/L (3.5-5.1) Chloride Level 94 mmol/L (98-107) Carbon Dioxide Level 25 mmol/L (21-32) Anion Gap 14 (6-14) Blood Urea Nitrogen 71 mg/dL (8-26) Creatinine 8.2 mg/dL (0.7-1.3) Estimated GFR (Cockcroft-Gault) 8.3 BUN/Creatinine Ratio 9 (6-20) Glucose Level 145 mg/dL (70-99) Lactic Acid Level 1.1 mmol/L (0.4-2.0) Calcium Level 9.2 mg/dL (8.5-10.1) Total Bilirubin 0.7 mg/dL (0.2-1.0) Aspartate Amino Transf (AST/SGOT) 20 U/L (15-37) Alanine Aminotransferase (ALT/SGPT) 13 U/L (16-63) Alkaline Phosphatase 75 U/L (46-116) Total Protein 8.1 g/dL (6.4-8.2) Albumin 2.8 g/dL (3.4-5.0) Albumin/Globulin Ratio 0.5 (1.0-1.7) Influenza Type A Antigen Negative (NEGATIVE) Influenza Type B Antigen Negative (NEGATIVE) Glucose (Fingerstick) 109 mg/dL (70-99) Laboratory Tests Test 11/25/18 13:50 11/25/18 15:22 11/26/18 08:20 White Blood Count 16.6 x10^3/uL (4.0-11.0) Red Blood Count 2.96 x10^6/uL (4.30-5.70) Hemoglobin 8.1 g/dL (13.0-17.5) Hematocrit 25.8 % (39.0-53.0) Mean Corpuscular Volume 87 fL (79-100) Mean Corpuscular Hemoglobin 28 pg (25-35) Mean Corpuscular Hemoglobin Concent 32 g/dL (31-37) Red Cell Distribution Width 16.2 % (11.5-14.5) Platelet Count 199 x10^3/uL (140-400) Neutrophils (%) (Auto) 84 % (31-73) Lymphocytes (%) (Auto) 4 % (24-48) Monocytes (%) (Auto) 12 % (0-9) Eosinophils (%) (Auto) 0 % (0-3) Basophils (%) (Auto) 1 % (0-3) Neutrophils # (Auto) 13.9 x10^3uL (1.8-7.7) Lymphocytes # (Auto) 0.6 x10^3/uL (1.0-4.8) Monocytes # (Auto) 1.9 x10^3/uL (0.0-1.1) Eosinophils # (Auto) 0.1 x10^3/uL (0.0-0.7) Basophils # (Auto) 0.1 x10^3/uL (0.0-0.2) Segmented Neutrophils % 78 % (35-66) Band Neutrophils % 7 % (0-9) Lymphocytes % 1 % (24-48) Monocytes % 11 % (0-10) Eosinophils % 1 % (0-5) Basophils % 2 % (0-3) Platelet Estimate Adequate (ADEQUATE) Sodium Level 133 mmol/L (136-145) Potassium Level 4.1 mmol/L (3.5-5.1) Chloride Level 94 mmol/L (98-107) Carbon Dioxide Level 25 mmol/L (21-32) Anion Gap 14 (6-14) Blood Urea Nitrogen 71 mg/dL (8-26) Creatinine 8.2 mg/dL (0.7-1.3) Estimated GFR (Cockcroft-Gault) 8.3 BUN/Creatinine Ratio 9 (6-20) Glucose Level 145 mg/dL (70-99) Lactic Acid Level 1.1 mmol/L (0.4-2.0) Calcium Level 9.2 mg/dL (8.5-10.1) Total Bilirubin 0.7 mg/dL (0.2-1.0) Aspartate Amino Transf (AST/SGOT) 20 U/L (15-37) Alanine Aminotransferase (ALT/SGPT) 13 U/L (16-63) Alkaline Phosphatase 75 U/L (46-116) Total Protein 8.1 g/dL (6.4-8.2) Albumin 2.8 g/dL (3.4-5.0) Albumin/Globulin Ratio 0.5 (1.0-1.7) Influenza Type A Antigen Negative (NEGATIVE) Influenza Type B Antigen Negative (NEGATIVE) Glucose (Fingerstick) 109 mg/dL (70-99) Medications Current Medications Acetaminophen (Tylenol) 1,000 mg 1X ONCE PO Last administered on 11/25/18 14: 04; Start 11/25/18 at 12:45; Stop 11/25/18 at 12:48; Status DC Sodium Chloride 500 ml @ 500 mls/hr 1X ONCE IV Last administered on at 14:00; Start 11/25/18 at 12:45; Stop 11/25/18 at 13:44; Status DC Sodium Chloride 1,000 ml @ 1,000 mls/hr 1X ONCE IV Last administered on at 14:39; Start 11/25/18 at 14:30; Stop 11/25/18 at 15:29; Status DC Albuterol/ Ipratropium (Duoneb) 3 ml 1X ONCE NEB Last administered on 14:30; Start 11/25/18 at 14:30; Stop 11/25/18 at 14:31; Status DC Vancomycin HCl 2 gm/Sodium Chloride 500 ml @ 250 mls/hr 1X ONCE IV Last administered on 11/25/18at 14:30; Start 11/25/18 at 14:30; Stop 11/25/18 at 16:29 ; Status DC Levofloxacin/ Dextrose 150 ml @ 100 mls/hr 1X ONCE IV Last administered on at 14:39; Start 11/25/18 at 14:30; Stop 11/25/18 at 15:59; Status DC Acetaminophen/ Hydrocodone Bitart (Lortab 7.5/325) 1 tab PRN Q4HRS PRN PO PAIN Last administered on 11/25/18at 22:46; Start 11/25/18 at 17:15 Sodium Chloride (Normal Saline Flush) 3 ml QSHIFT PRN IV AFTER MEDS AND BLOOD DRAWS; Start 11/25/18 at 17:30 Vancomycin HCl (Vanco Per Pharmacy) 1 each PRN DAILY PRN MC SEE COMMENTS Last administered on 11/25/18at 17:59; Start 11/25/18 at 17:30 Levofloxacin/ Dextrose (Levaquin Per Pharmacy) 1 each PRN DAILY PRN MC SEE COMMENTS; Start 11/25/18 at 17:30; Stop 11/26/18 at 09:31; Status DC Levofloxacin/ Dextrose 100 ml @ 100 mls/hr Q48H IV ; Start 11/27/18 at 14:00; Stop 11/27/18 at 14:00; Status DC Heparin Sodium (Porcine) (Heparin Sodium) 5,000 unit Q8HRS SQ Last administered on 11/26/18 06:24; Start 11/25/18 at 22:00 Acetaminophen (Tylenol) 650 mg PRN Q6HRS PRN PO FEVER; Start 11/25/18 at 17:45 Aspirin ([place] Aspirin) 325 mg DAILY PO Last administered on 11/26/18 08:01; Start 11/26/18 at 09:00 Calcium Carbonate/ Glycine (Oscal) 500 mg BID PO Last administered on 08:02; Start 11/25/18 at 21:00 Carvedilol (Coreg) 3.125 mg BIDWMEALS PO Last administered on 11/26/18 08:03; Start 11/25/18 at 18:30 Clopidogrel Bisulfate (Plavix) 75 mg DAILY PO Last administered on 11/26/18 08 :01; Start 11/26/18 at 09:00 Famotidine (Pepcid) 20 mg HS PO Last administered on 11/25/18 20:34; Start at 21:00; Stop 11/26/18 at 08:53; Status DC Isosorbide Mononitrate (Imdur) 30 mg DAILY PO Last administered on 11/26/18 08 :02; Start 11/26/18 at 09:00 Levothyroxine Sodium (Synthroid) 175 mcg DAILYAC PO Last administered on 08:02; Start 11/26/18 at 07:30 Oxycodone/ Acetaminophen (Percocet 10/325) 1 tab QID PO Last administered on 08:02; Start 11/25/18 at 21:00 Zolpidem Tartrate (Ambien) 5 mg QHS PO Last administered on 11/25/18 20:34; Start 11/25/18 at 21:00 Albuterol Sulfate (Ventolin Neb Soln) 2.5 mg PRN Q6HRS PRN NEB SHORTNESS OF BREATH; Start 11/25/18 at 17:45 Atorvastatin Calcium (Lipitor) 40 mg QHS PO Last administered on 11/25/18 20: 34; Start 11/25/18 at 21:00 Non-Formulary Medication (Fluticasone Propionate (Flovent 110MCG Hfa)) 2 puff BID IH ; Start 11/25/18 at 21:00; Status UNV Levetiracetam (Keppra) 1,000 mg BID PO Last administered on 11/26/18 08:02; Start 11/25/18 at 21:00 Magnesium Oxide (Magnesium Oxide) 400 mg DAILY PO Last administered on 08:02; Start 11/26/18 at 09:00 Pramipexole Dihydrochloride (miraPEX) 0.25 mg DAILY PO Last administered on 08:02; Start 11/26/18 at 09:00 Budesonide (Pulmicort) 0.5 mg RTBID NEB Last administered on 11/26/18at 08:41; Start 11/25/18 at 20:00 Vancomycin HCl (Vancomycin Random Level) 1 each 1X ONCE MC ; Start 11/27/18 at 06:00; Stop 11/27/18 at 06:01 Midazolam HCl (Versed) 5 mg STK-MED ONCE .ROUTE ; Start 11/25/18 at 17:58; Stop 11/25/18 at 17:59; Status DC Lactobacillus Rhamnosus (Culturelle) 1 cap BID PO Last administered on at 08:03; Start 11/26/18 at 09:00 Midazolam HCl (Versed) 5 mg STK-MED ONCE .ROUTE ; Start 11/25/18 at 18:00; Stop 11/26/18 at 07:42; Status DC Famotidine (Pepcid) 20 mg Q48H PO ; Start 11/27/18 at 21:00 Meropenem 500 mg/ Sodium Chloride 50 ml @ 100 mls/hr DAILY IV Last administered on 11/26/18at 10:18; Start 11/26/18 at 10:00 Active Scripts Active Isosorbide Mononitrate Er (Isosorbide Mononitrate) 30 Mg Tab.er.24h 30 Mg PO DAILY 30 Days Reported Aspirin 325 Mg Tablet 1 Tab PO DAILY Coreg (Carvedilol) 3.125 Mg Tablet 3.125 Mg PO BIDWMEALS Magnesium (Magnesium Oxide) 400 Mg Capsule 400 Mg PO DAILY Levothyroxine Sodium 175 Mcg Tablet 175 Mcg PO DAILYAC Plavix (Clopidogrel Bisulfate) 75 Mg Tablet 75 Mg PO DAILY Calcium Carbonate 500 Mg Tablet 500 Mg PO BID Lipitor (Atorvastatin Calcium) 80 Mg Tablet 40 Mg PO HS Keppra (Levetiracetam) 1,000 Mg Tablet 1 Tab PO BID Endocet 10-325 Mg Tablet (Oxycodone Hcl/Acetaminophen) 1 Each Tablet 1 Tab PO QID Flovent 110MCG Hfa (Fluticasone Propionate) 12 Gm Aer.w.adap 2 Puff IH BID Zolpidem Tartrate 5 Mg Tablet 1 Tab PO QHS Mirapex (Pramipexole Di-Hcl) 0.25 Mg Tablet 1 Tab PO DAILY Tylenol (Acetaminophen) 325 Mg Tablet 650 Mg PO PRN Q6HRS PRN Famotidine 20 Mg Tablet 20 Mg PO HS Ventolin Hfa Inhaler (Albuterol Sulfate) 18 Gm Hfa.aer.ad 1 Puff INH Q6HRS PRN Vitals/I & O Vital Sign - Last 24 Hours 11/25/18 11/25/18 11/25/18 11/25/18 12:00 12:17 13:00 13:30 Temp 102.3 102.3 Pulse 90 108 105 Resp 16 B/P (MAP) 135/64 (87) 135/64 (87) 150/65 (93) 171/70 (103) Pulse Ox 95 91 O2 Delivery Room Air 11/25/18 11/25/18 11/25/18 11/25/18 14:00 14:40 15:00 16:00 Temp 101.4 98.9 101.4 98.9 Pulse 96 96 Resp 20 B/P (MAP) 113/55 (74) 102/60 (74) Pulse Ox 100 100 97 O2 Delivery Nasal Cannula Room Air Room Air O2 Flow Rate 2.0 2.0 11/25/18 11/25/18 11/25/18 11/25/18 16:30 16:30 17:00 17:18 Pulse 90 89 Resp 21 19 18 B/P (MAP) 97/43 (61) 93/50 (64) Pulse Ox 93 95 95 O2 Delivery Room Air Room Air Room Air Room Air 11/25/18 11/25/18 11/25/18 11/25/18 17:30 18:00 18:18 18:30 Pulse 90 92 92 Resp 17 22 19 24 B/P (MAP) 125/62 (83) 140/62 (88) 163/73 (103) Pulse Ox 96 95 95 94 O2 Delivery Room Air Room Air Room Air Room Air 11/25/18 11/25/18 11/25/18 11/25/18 19:00 19:41 19:49 20:00 Temp 99.0 99.0 Pulse 94 93 96 Resp 20 18 B/P (MAP) 163/73 (103) 144/62 148/52 (84) Pulse Ox 94 99 96 O2 Delivery Room Air Room Air Room Air 11/25/18 11/25/18 11/25/18 11/25/18 20:00 21:00 22:00 23:00 Pulse 100 96 100 Resp 25 B/P (MAP) 161/63 (95) 144/50 (81) 129/54 (79) Pulse Ox 94 96 94 O2 Delivery Room Air Room Air Room Air Room Air 11/26/18 11/26/18 11/26/18 11/26/18 00:00 00:00 01:00 02:00 Temp 99.6 99.6 Pulse 86 80 82 Resp 20 22 20 B/P (MAP) 138/59 (85) 95/46 (62) 136/53 (80) Pulse Ox 90 93 93 O2 Delivery Room Air Room Air Room Air Room Air 11/26/18 11/26/18 11/26/18 11/26/18 03:00 04:00 04:00 05:00 Temp 98.8 98.8 Pulse 79 84 87 Resp 30 26 28 B/P (MAP) 119/54 (75) 128/56 (80) 112/55 (74) Pulse Ox 94 96 97 O2 Delivery Room Air Room Air Room Air Room Air 11/26/18 11/26/18 11/26/18 11/26/18 06:00 07:00 07:47 08:00 Pulse 80 82 Resp 25 22 B/P (MAP) 95/48 (64) 130/57 (81) Pulse Ox 95 96 98 O2 Delivery Room Air Room Air Room Air Room Air 11/26/18 11/26/18 11/26/18 11/26/18 08:00 08:02 08:02 08:03 Temp 98.6 98.6 Pulse 98 88 86 Resp 24 B/P (MAP) 142/64 (90) 142/64 142/64 Pulse Ox 97 O2 Delivery Room Air Room Air 11/26/18 11/26/18 09:00 09:06 Pulse 82 Resp 25 B/P (MAP) 100/48 (65) Pulse Ox 95 O2 Delivery Room Air Room Air Intake and Output 11/25/18 11/25/18 11/26/18 15:00 23:00 07:00 Intake Total 400 ml 500 ml Output Total 0 ml 0 ml Balance 400 ml 500 ml CINDA POE MD Nov 26, 2018 10:58
--- NOTE | 2018-11-26 12:00 | NUR ---
Pt with hx of amputation and would benefit from PT/OT assessment to ensure safe dishcarge disposition. Please write PT/Ot eval and treat orders if you agree. Addendum: 11/26/18 at 1201 by DREAD LINARES PT Amended: Links added.
[2018-11-26] MEDS ORDERED: IV NORMAL SALINE 1000ML BAG 1,000 ML IV PRN ×2 (14:13)
[2018-11-26] MEDS ORDERED: diphenhydrAMINE 50 MG/ML VIAL IV PRN ×2 (14:15)
[2018-11-26] MEDS ORDERED: DIALYSIS PATIENT. MC PRN (14:15)
[2018-11-26] MEDS ORDERED: ACETAMINOPHEN 500 MG TABLET PO PRN (14:15)
[2018-11-26] MEDS ORDERED: ALBUMIN HUMAN 25% 200 ML IV PRN (14:15)
[2018-11-26] MEDS: VANCOMYCIN PER PHARMACY MC PRN (14:58)
--- NOTE | 2018-11-26 15:10 | PDOC2 ---
CONSULT Date of Consult Date of Consult DATE: 11/26/18 TIME: 15:02 Reason for Consult Reason for Consult: Right foot wound Source Source: Patient History of Present Illness Reason for Visit: Pt is a pleasant 53 year old with hx of Noncompliance, ESRD, on dialysis, AFib , anxiety, asthma, coronary artery disease, CHF, stroke, diabetes, GERD, HTN, hyperlipidemia, myocardial infarction, TIA, peripheral vascular disease, morbid obesity, left arm fistula, right fourth and fifth toe amputations, left below the knee amputation, scrotal surgery, cardiac stents recent admission in Sep for volume overload for missed HD. We were asked to evaluate his right foot wound. He reports the first surgery on this was in july of 2018. We debrided this wound with 4th toe amputaton and wound vac placement on 09/24/18. On 09/18/18 arteriogram was performed showing right leg 2 vessel tibial runoff intact to the foot significant stenosiswhich was deemed should be adequate flow for wound healing. He has been treated at wound care center since. He reports he has had the vac on continuously with regular ordered changes except when it was removed yesterday they were concerned for infection and they took it off. He does report associated fevers. He has pain to the 2 and 3 right toes , does not report much pain over the wound itself. There has been significant purulent drainage. The patient reports he does walk on his right leg and with his left leg prosthesis. He lives "downstairs" doing stairs frequently. Pt reports his blood sugars are well controlled around 100, he does not recall his last HgbA1C Past Medical History Cardiovascular: AFIB, CAD, CHF, HTN, ND, Hyperlipidemia, Other Pulmonary: COPD CENTRAL NERVOUS SYSTEM: Dementia, Periperal neuropathy, Seizure, TIA GI: Diverticulosis, Other Heme/Onc: Anemia NOS Hepatobiliary: No pertinent hx Psych: Anxiety, Depression Musculoskeletal: Osteoarthritis Rheumatologic: Rheumatoid arthritis Infectious disease: No pertinent hx Renal/: Chronic renal failure Endocrine: Diabetes, Hypothyroidism, Hyperparathyroidism Past Surgical History Past Surgical History: Cataract Removal, Total knee replacement, Other Family History Family History: Diabetes, Hypertension Social History Social History: Parent ALCOHOL: none Drugs: None Lives: with Family Current Problem List Problem List Problems Medical Problems: (1) Acute respiratory distress Status: Acute (2) Diabetic infection of right foot Status: Acute (3) Fever Status: Acute (4) HCAP (healthcare-associated pneumonia) Status: Acute (5) History of left below knee amputation Status: Acute (6) Sepsis Status: Acute (7) Symptomatic anemia Status: Acute (8) Toe fracture, right Status: Acute Current Medications Current Medications Current Medications Acetaminophen (Tylenol) 1,000 mg 1X ONCE PO Last administered on 11/25/18 14: 04; Start 11/25/18 at 12:45; Stop 11/25/18 at 12:48; Status DC Sodium Chloride 500 ml @ 500 mls/hr 1X ONCE IV Last administered on 14:00; Start 11/25/18 at 12:45; Stop 11/25/18 at 13:44; Status DC Sodium Chloride 1,000 ml @ 1,000 mls/hr 1X ONCE IV Last administered on 14:39; Start 11/25/18 at 14:30; Stop 11/25/18 at 15:29; Status DC Albuterol/ Ipratropium (Duoneb) 3 ml 1X ONCE NEB Last administered on at 14:30; Start 11/25/18 at 14:30; Stop 11/25/18 at 14:31; Status DC Vancomycin HCl 2 gm/Sodium Chloride 500 ml @ 250 mls/hr 1X ONCE IV Last administered on 11/25/18 14:30; Start 11/25/18 at 14:30; Stop 11/25/18 at 16:29 ; Status DC Levofloxacin/ Dextrose 150 ml @ 100 mls/hr 1X ONCE IV Last administered on 14:39; Start 11/25/18 at 14:30; Stop 11/25/18 at 15:59; Status DC Acetaminophen/ Hydrocodone Bitart (Lortab 7.5/325) 1 tab PRN Q4HRS PRN PO PAIN Last administered on 11/25/18 22:46; Start 11/25/18 at 17:15 Sodium Chloride (Normal Saline Flush) 3 ml QSHIFT PRN IV AFTER MEDS AND BLOOD DRAWS; Start 11/25/18 at 17:30 Vancomycin HCl (Vanco Per Pharmacy) 1 each PRN DAILY PRN MC SEE COMMENTS Last administered on 11/26/18at 14:58; Start 11/25/18 at 17:30 Levofloxacin/ Dextrose (Levaquin Per Pharmacy) 1 each PRN DAILY PRN MC SEE COMMENTS; Start 11/25/18 at 17:30; Stop 11/26/18 at 09:31; Status DC Levofloxacin/ Dextrose 100 ml @ 100 mls/hr Q48H IV ; Start 11/27/18 at 14:00; Stop 11/27/18 at 14:00; Status DC Heparin Sodium (Porcine) (Heparin Sodium) 5,000 unit Q8HRS SQ Last administered on 11/26/18at 06:24; Start 11/25/18 at 22:00 Acetaminophen (Tylenol) 650 mg PRN Q6HRS PRN PO FEVER; Start 11/25/18 at 17:45 Aspirin ([place] Aspirin) 325 mg DAILY PO Last administered on 11/26/18at 08:01; Start 11/26/18 at 09:00 Calcium Carbonate/ Glycine (Oscal) 500 mg BID PO Last administered on at 08:02; Start 11/25/18 at 21:00 Carvedilol (Coreg) 3.125 mg BIDWMEALS PO Last administered on 11/26/18 08:03; Start 11/25/18 at 18:30 Clopidogrel Bisulfate (Plavix) 75 mg DAILY PO Last administered on 11/26/18 08 :01; Start 11/26/18 at 09:00 Famotidine (Pepcid) 20 mg HS PO Last administered on 11/25/18 20:34; Start at 21:00; Stop 11/26/18 at 08:53; Status DC Isosorbide Mononitrate (Imdur) 30 mg DAILY PO Last administered on 11/26/18 08 :02; Start 11/26/18 at 09:00 Levothyroxine Sodium (Synthroid) 175 mcg DAILYAC PO Last administered on 08:02; Start 11/26/18 at 07:30 Oxycodone/ Acetaminophen (Percocet 10/325) 1 tab QID PO Last administered on 12:25; Start 11/25/18 at 21:00 Zolpidem Tartrate (Ambien) 5 mg QHS PO Last administered on 11/25/18 20:34; Start 11/25/18 at 21:00 Albuterol Sulfate (Ventolin Neb Soln) 2.5 mg PRN Q6HRS PRN NEB SHORTNESS OF BREATH; Start 11/25/18 at 17:45 Atorvastatin Calcium (Lipitor) 40 mg QHS PO Last administered on 11/25/18at 20: 34; Start 11/25/18 at 21:00 Non-Formulary Medication (Fluticasone Propionate (Flovent 110MCG Hfa)) 2 puff BID IH ; Start 11/25/18 at 21:00; Status UNV Levetiracetam (Keppra) 1,000 mg BID PO Last administered on 11/26/18at 08:02; Start 11/25/18 at 21:00 Magnesium Oxide (Magnesium Oxide) 400 mg DAILY PO Last administered on at 08:02; Start 11/26/18 at 09:00 Pramipexole Dihydrochloride (miraPEX) 0.25 mg DAILY PO Last administered on at 08:02; Start 11/26/18 at 09:00 Budesonide (Pulmicort) 0.5 mg RTBID NEB Last administered on 11/26/18at 08:41; Start 11/25/18 at 20:00 Vancomycin HCl (Vancomycin Random Level) 1 each 1X ONCE MC ; Start 11/27/18 at 06:00; Stop 11/27/18 at 06:01 Midazolam HCl (Versed) 5 mg STK-MED ONCE .ROUTE ; Start 11/25/18 at 17:58; Stop 11/25/18 at 17:59; Status DC Lactobacillus Rhamnosus (Culturelle) 1 cap BID PO Last administered on at 08:03; Start 11/26/18 at 09:00 Midazolam HCl (Versed) 5 mg STK-MED ONCE .ROUTE ; Start 11/25/18 at 18:00; Stop 11/26/18 at 07:42; Status DC Famotidine (Pepcid) 20 mg Q48H PO ; Start 11/27/18 at 21:00 Meropenem 500 mg/ Sodium Chloride 50 ml @ 100 mls/hr DAILY IV Last administered on 11/26/18at 10:18; Start 11/26/18 at 10:00 Sodium Chloride 1,000 ml @ 1,000 mls/hr Q1H PRN IV hypotension; Start 11/26/18 at 14:13; Stop 11/26/18 at 20:12 Albumin Human 200 ml @ 200 mls/hr 1X PRN PRN IV Hypotension; Start 11/26/18 at 14:15; Stop 11/26/18 at 20:14 Acetaminophen (Tylenol) 500 mg 1X PRN PRN PO MILD PAIN / TEMP; Start 11/26/18 at 14:15; Stop 11/27/18 at 14:14 Diphenhydramine HCl (Benadryl) 25 mg 1X PRN PRN IV ITCHING; Start 11/26/18 at 14:15; Stop 11/27/18 at 14:14 Diphenhydramine HCl (Benadryl) 25 mg 1X PRN PRN IV ITCHING; Start 11/26/18 at 14:15; Stop 11/27/18 at 14:14 Sodium Chloride 1,000 ml @ 400 mls/hr Q2H30M PRN IV PATENCY; Start 11/26/18 at 14:13; Stop 11/27/18 at 02:12 Info (PHARMACY MONITORING -- do not chart) 1 each PRN DAILY PRN MC SEE COMMENTS ; Start 11/26/18 at 14:15 Active Scripts Active Isosorbide Mononitrate Er (Isosorbide Mononitrate) 30 Mg Tab.er.24h 30 Mg PO DAILY 30 Days Reported Aspirin 325 Mg Tablet 1 Tab PO DAILY Coreg (Carvedilol) 3.125 Mg Tablet 3.125 Mg PO BIDWMEALS Magnesium (Magnesium Oxide) 400 Mg Capsule 400 Mg PO DAILY Levothyroxine Sodium 175 Mcg Tablet 175 Mcg PO DAILYAC Plavix (Clopidogrel Bisulfate) 75 Mg Tablet 75 Mg PO DAILY Calcium Carbonate 500 Mg Tablet 500 Mg PO BID Lipitor (Atorvastatin Calcium) 80 Mg Tablet 40 Mg PO HS Keppra (Levetiracetam) 1,000 Mg Tablet 1 Tab PO BID Endocet 10-325 Mg Tablet (Oxycodone Hcl/Acetaminophen) 1 Each Tablet 1 Tab PO QID Flovent 110MCG Hfa (Fluticasone Propionate) 12 Gm Aer.w.adap 2 Puff IH BID Zolpidem Tartrate 5 Mg Tablet 1 Tab PO QHS Mirapex (Pramipexole Di-Hcl) 0.25 Mg Tablet 1 Tab PO DAILY Tylenol (Acetaminophen) 325 Mg Tablet 650 Mg PO PRN Q6HRS PRN Famotidine 20 Mg Tablet 20 Mg PO HS Ventolin Hfa Inhaler (Albuterol Sulfate) 18 Gm Hfa.aer.ad 1 Puff INH Q6HRS PRN Allergies Allergies: Coded Allergies: iodine (Verified Allergy, Severe, THROAT SWELLING, 09/24/18) lisinopril (Verified Allergy, Severe, 09/24/18) Fish Containing Products (Verified Allergy, Intermediate, 09/24/18) Penicillins (Verified Allergy, Intermediate, SEE COMMENT, 09/24/18) Tolerates meropenem and Cephalosporins piperacillin (Verified Allergy, Intermediate, Hives, 09/24/18) Tolerates meropenem tazobactam (Verified Allergy, Intermediate, 09/24/18) ROS General: YES: Chills, Other (Fever) Hematological and Lymphatic: No: Bleeding Problems, Blood Clots Gastrointestinal: No Nausea, No Vomiting Musculoskeletal: Yes Gait Disturbance, Yes Swelling In: (right foot/leg) Neurological: Yes Gait Disturbance Skin: Yes Dry Skin Physical Exam General: Alert, Oriented X3, Cooperative, No acute distress HEENT: Atraumatic Lungs: Normal air movement Heart: Other (Bilateral femoral pulses 2+, right DP and PT pulses biphasic, strong on doppler. ) Extremities: Other (Right foot edema to ankle. Lateral foot wound with purulent drainage throughout. Sloughed tissue on plantar surface of wound. Blister removed on plantar surface of foot below 2nd and 3rd toes, dark tissue underneath. Mild fluctuance throughout, no sinus tracts noted. Left BKA completely healed. Prior right 1st toe amputation healed. ) Neuro: Normal speech Psych/Mental Status: Mental status NL, Mood NL Vitals VITALS Vital Signs Date Time Temp Pulse Resp B/P (MAP) Pulse Ox O2 Delivery O2 Flow Rate FiO2 11/26/18 13:25 12 Room Air 11/26/18 12:25 95 2.0 11/26/18 11:15 98.1 89 100/51 (67) 98.1 Labs Labs WBC 16.6 and Cr 8.2 noted Laboratory Tests Test 11/25/18 13:50 11/25/18 15:22 11/25/18 15:44 11/26/18 08:20 White Blood Count 16.6 x10^3/uL (4.0-11.0) Red Blood Count 2.96 x10^6/uL (4.30-5.70) Hemoglobin 8.1 g/dL (13.0-17.5) Hematocrit 25.8 % (39.0-53.0) Mean Corpuscular Volume 87 fL (79-100) Mean Corpuscular Hemoglobin 28 pg (25-35) Mean Corpuscular Hemoglobin Concent 32 g/dL (31-37) Red Cell Distribution Width 16.2 % (11.5-14.5) Platelet Count 199 x10^3/uL (140-400) Neutrophils (%) (Auto) 84 % (31-73) Lymphocytes (%) (Auto) 4 % (24-48) Monocytes (%) (Auto) 12 % (0-9) Eosinophils (%) (Auto) 0 % (0-3) Basophils (%) (Auto) 1 % (0-3) Neutrophils # (Auto) 13.9 x10^3uL (1.8-7.7) Lymphocytes # (Auto) 0.6 x10^3/uL (1.0-4.8) Monocytes # (Auto) 1.9 x10^3/uL (0.0-1.1) Eosinophils # (Auto) 0.1 x10^3/uL (0.0-0.7) Basophils # (Auto) 0.1 x10^3/uL (0.0-0.2) Segmented Neutrophils % 78 % (35-66) Band Neutrophils % 7 % (0-9) Lymphocytes % 1 % (24-48) Monocytes % 11 % (0-10) Eosinophils % 1 % (0-5) Basophils % 2 % (0-3) Platelet Estimate Adequate (ADEQUATE) Sodium Level 133 mmol/L (136-145) Potassium Level 4.1 mmol/L (3.5-5.1) Chloride Level 94 mmol/L (98-107) Carbon Dioxide Level 25 mmol/L (21-32) Anion Gap 14 (6-14) Blood Urea Nitrogen 71 mg/dL (8-26) Creatinine 8.2 mg/dL (0.7-1.3) Estimated GFR (Cockcroft-Gault) 8.3 BUN/Creatinine Ratio 9 (6-20) Glucose Level 145 mg/dL (70-99) Lactic Acid Level 1.1 mmol/L (0.4-2.0) Calcium Level 9.2 mg/dL (8.5-10.1) Total Bilirubin 0.7 mg/dL (0.2-1.0) Aspartate Amino Transf (AST/SGOT) 20 U/L (15-37) Alanine Aminotransferase (ALT/SGPT) 13 U/L (16-63) Alkaline Phosphatase 75 U/L (46-116) Total Protein 8.1 g/dL (6.4-8.2) Albumin 2.8 g/dL (3.4-5.0) Albumin/Globulin Ratio 0.5 (1.0-1.7) Influenza Type A Antigen Negative (NEGATIVE) Influenza Type B Antigen Negative (NEGATIVE) Nasal Screen MRSA (PCR) Negative (Negative) Glucose (Fingerstick) 109 mg/dL (70-99) Test 11/26/18 11:58 Glucose (Fingerstick) 129 mg/dL (70-99) Laboratory Tests Test 11/25/18 15:22 11/25/18 15:44 11/26/18 08:20 11/26/18 11:58 Influenza Type A Antigen Negative (NEGATIVE) Influenza Type B Antigen Negative (NEGATIVE) Nasal Screen MRSA (PCR) Negative (Negative) Glucose (Fingerstick) 109 mg/dL (70-99) 129 mg/dL (70-99) Images Images 09/18/18 arteriogram #1 abdominal aortogram shows normal vessel without aneurysm or significant aortoiliac occlusive disease #2 bilateral common and external iliac arteries widely patent #3 bilateral common femoral and profunda femoral arteries widely patent #4 right superficial femoral artery and popliteal artery widely patent. #5 right leg 2 vessel tibial runoff intact to the foot significant stenosis should be adequate flow for wound healing 11/25/18 Foot Xray Impression: Third digit proximal phalangeal fracture is new since the prior exam. Interval amputations of the fourth and fifth digits as well as much of the metatarsal bones. Surrounding soft tissue gas may relate to recent surgical intervention. Correlate with history in determining further evaluation if osteomyelitis is a concern. Assessment/Plan Assessment/Plan Infected right lateral foot wound s/p right 4th toe amputation and foot debridement on 09/24/18. - Pt will need right foot debridement with possible right 2 and 3rd toe amputation, will try for add on tomorrow, if not will take place . Dr. Alvarez and I discussed this at length with the patient including, procedure details and risks/benefits with continued need for compliant wound vac therapy. Pt agreed to proceed. We also discussed with him likely need to remain offloading and the importance of good blood sugar control to optimize wound healing. Continue IV abx, hold wound vac therapy until procedure. Place silver aquacel over wound until procedure. Discussed with nursing. GONZALO RADFORD Nov 26, 2018 15:10
--- NOTE | 2018-11-26 17:56 | PDOC2 ---
CONSULT Date of Consult Date of Consult DATE: 11/26/18 TIME: 17:40 Reason for Consult Reason for Consult: ESRD Source Source: Chart review, Patient History of Present Illness Reason for Visit: Patient is a 53 year AA male ESRD , Non compliance, frequent hospitalizations , diabetes mellitus and right foot diabetic ulcer admitted with fever. Patient had recent hospitalization for pneumonia and had PICC line with order vancomycin at home. Patient complaining of cough for one week with sputum and fever for the last 4 or 5 days Patient states he missed his dialysis 3 days ago because of fever. Patient had temperature of 102 today Seen on HD tolerating well Past Medical History Cardiovascular: AFIB, CAD, CHF, HTN, [place], Hyperlipidemia, Other Pulmonary: COPD CENTRAL NERVOUS SYSTEM: Dementia, Periperal neuropathy, Seizure, TIA GI: Diverticulosis, Other Heme/Onc: Anemia NOS Hepatobiliary: No pertinent hx Psych: Anxiety, Depression Musculoskeletal: Osteoarthritis Rheumatologic: Rheumatoid arthritis Infectious disease: No pertinent hx Renal/: Chronic renal failure Endocrine: Diabetes, Hypothyroidism, Hyperparathyroidism Past Surgical History Past Surgical History: Cataract Removal, Total knee replacement, Other Family History Family History: Diabetes, Hypertension Social History Social History: Parent ALCOHOL: none Drugs: None Lives: with Family Current Problem List Problem List Problems Medical Problems: (1) Acute respiratory distress Status: Acute (2) Diabetic infection of right foot Status: Acute (3) Fever Status: Acute (4) HCAP (healthcare-associated pneumonia) Status: Acute (5) History of left below knee amputation Status: Acute (6) Sepsis Status: Acute (7) Symptomatic anemia Status: Acute (8) Toe fracture, right Status: Acute Current Medications Current Medications Current Medications Acetaminophen (Tylenol) 1,000 mg 1X ONCE PO Last administered on 11/25/18at 14: 04; Start 11/25/18 at 12:45; Stop 11/25/18 at 12:48; Status DC Sodium Chloride 500 ml @ 500 mls/hr 1X ONCE IV Last administered on at 14:00; Start 11/25/18 at 12:45; Stop 11/25/18 at 13:44; Status DC Sodium Chloride 1,000 ml @ 1,000 mls/hr 1X ONCE IV Last administered on at 14:39; Start 11/25/18 at 14:30; Stop 11/25/18 at 15:29; Status DC Albuterol/ Ipratropium (Duoneb) 3 ml 1X ONCE NEB Last administered on 14:30; Start 11/25/18 at 14:30; Stop 11/25/18 at 14:31; Status DC Vancomycin HCl 2 gm/Sodium Chloride 500 ml @ 250 mls/hr 1X ONCE IV Last administered on 11/25/18at 14:30; Start 11/25/18 at 14:30; Stop 11/25/18 at 16:29 ; Status DC Levofloxacin/ Dextrose 150 ml @ 100 mls/hr 1X ONCE IV Last administered on at 14:39; Start 11/25/18 at 14:30; Stop 11/25/18 at 15:59; Status DC Acetaminophen/ Hydrocodone Bitart (Lortab 7.5/325) 1 tab PRN Q4HRS PRN PO PAIN Last administered on 11/25/18 22:46; Start 11/25/18 at 17:15 Sodium Chloride (Normal Saline Flush) 3 ml QSHIFT PRN IV AFTER MEDS AND BLOOD DRAWS; Start 11/25/18 at 17:30 Vancomycin HCl (Vanco Per Pharmacy) 1 each PRN DAILY PRN MC SEE COMMENTS Last administered on 11/26/18at 14:58; Start 11/25/18 at 17:30 Levofloxacin/ Dextrose (Levaquin Per Pharmacy) 1 each PRN DAILY PRN MC SEE COMMENTS; Start 11/25/18 at 17:30; Stop 11/26/18 at 09:31; Status DC Levofloxacin/ Dextrose 100 ml @ 100 mls/hr Q48H IV ; Start 11/27/18 at 14:00; Stop 11/27/18 at 14:00; Status DC Heparin Sodium (Porcine) (Heparin Sodium) 5,000 unit Q8HRS SQ Last administered on 11/26/18at 06:24; Start 11/25/18 at 22:00 Acetaminophen (Tylenol) 650 mg PRN Q6HRS PRN PO FEVER; Start 11/25/18 at 17:45 Aspirin ([place] Aspirin) 325 mg DAILY PO Last administered on 11/26/18at 08:01; Start 11/26/18 at 09:00 Calcium Carbonate/ Glycine (Oscal) 500 mg BID PO Last administered on at 08:02; Start 11/25/18 at 21:00 Carvedilol (Coreg) 3.125 mg BIDWMEALS PO Last administered on 11/26/18 08:03; Start 11/25/18 at 18:30 Clopidogrel Bisulfate (Plavix) 75 mg DAILY PO Last administered on 11/26/18 08 :01; Start 11/26/18 at 09:00 Famotidine (Pepcid) 20 mg HS PO Last administered on 11/25/18 20:34; Start at 21:00; Stop 11/26/18 at 08:53; Status DC Isosorbide Mononitrate (Imdur) 30 mg DAILY PO Last administered on 11/26/18 08 :02; Start 11/26/18 at 09:00 Levothyroxine Sodium (Synthroid) 175 mcg DAILYAC PO Last administered on 08:02; Start 11/26/18 at 07:30 Oxycodone/ Acetaminophen (Percocet 10/325) 1 tab QID PO Last administered on 12:25; Start 11/25/18 at 21:00 Zolpidem Tartrate (Ambien) 5 mg QHS PO Last administered on 11/25/18 20:34; Start 11/25/18 at 21:00 Albuterol Sulfate (Ventolin Neb Soln) 2.5 mg PRN Q6HRS PRN NEB SHORTNESS OF BREATH; Start 11/25/18 at 17:45 Atorvastatin Calcium (Lipitor) 40 mg QHS PO Last administered on 11/25/18 20: 34; Start 11/25/18 at 21:00 Non-Formulary Medication (Fluticasone Propionate (Flovent 110MCG Hfa)) 2 puff BID IH ; Start 11/25/18 at 21:00; Status UNV Levetiracetam (Keppra) 1,000 mg BID PO Last administered on 11/26/18 08:02; Start 11/25/18 at 21:00 Magnesium Oxide (Magnesium Oxide) 400 mg DAILY PO Last administered on 08:02; Start 11/26/18 at 09:00 Pramipexole Dihydrochloride (miraPEX) 0.25 mg DAILY PO Last administered on 4/ 16/19at 08:02; Start 11/26/18 at 09:00 Budesonide (Pulmicort) 0.5 mg RTBID NEB Last administered on 11/26/18at 08:41; Start 11/25/18 at 20:00 Vancomycin HCl (Vancomycin Random Level) 1 each 1X ONCE MC ; Start 11/27/18 at 06:00; Stop 11/27/18 at 06:01 Midazolam HCl (Versed) 5 mg STK-MED ONCE .ROUTE ; Start 11/25/18 at 17:58; Stop 11/25/18 at 17:59; Status DC Lactobacillus Rhamnosus (Culturelle) 1 cap BID PO Last administered on at 08:03; Start 11/26/18 at 09:00 Midazolam HCl (Versed) 5 mg STK-MED ONCE .ROUTE ; Start 11/25/18 at 18:00; Stop 11/26/18 at 07:42; Status DC Famotidine (Pepcid) 20 mg Q48H PO ; Start 11/27/18 at 21:00 Meropenem 500 mg/ Sodium Chloride 50 ml @ 100 mls/hr DAILY IV Last administered on 11/26/18at 10:18; Start 11/26/18 at 10:00 Sodium Chloride 1,000 ml @ 1,000 mls/hr Q1H PRN IV hypotension; Start 11/26/18 at 14:13; Stop 11/26/18 at 20:12 Albumin Human 200 ml @ 200 mls/hr 1X PRN PRN IV Hypotension; Start 11/26/18 at 14:15; Stop 11/26/18 at 20:14 Acetaminophen (Tylenol) 500 mg 1X PRN PRN PO MILD PAIN / TEMP; Start 11/26/18 at 14:15; Stop 11/27/18 at 14:14 Diphenhydramine HCl (Benadryl) 25 mg 1X PRN PRN IV ITCHING; Start 11/26/18 at 14:15; Stop 11/27/18 at 14:14 Diphenhydramine HCl (Benadryl) 25 mg 1X PRN PRN IV ITCHING; Start 11/26/18 at 14:15; Stop 11/27/18 at 14:14 Sodium Chloride 1,000 ml @ 400 mls/hr Q2H30M PRN IV PATENCY; Start 11/26/18 at 14:13; Stop 11/27/18 at 02:12 Info (PHARMACY MONITORING -- do not chart) 1 each PRN DAILY PRN MC SEE COMMENTS ; Start 11/26/18 at 14:15 Multivitamins (Thera M Plus) 1 tab DAILY PO ; Start 11/27/18 at 09:00 Active Scripts Active Isosorbide Mononitrate Er (Isosorbide Mononitrate) 30 Mg Tab.er.24h 30 Mg PO DAILY 30 Days Reported Aspirin 325 Mg Tablet 1 Tab PO DAILY Coreg (Carvedilol) 3.125 Mg Tablet 3.125 Mg PO BIDWMEALS Magnesium (Magnesium Oxide) 400 Mg Capsule 400 Mg PO DAILY Levothyroxine Sodium 175 Mcg Tablet 175 Mcg PO DAILYAC Plavix (Clopidogrel Bisulfate) 75 Mg Tablet 75 Mg PO DAILY Calcium Carbonate 500 Mg Tablet 500 Mg PO BID Lipitor (Atorvastatin Calcium) 80 Mg Tablet 40 Mg PO HS Keppra (Levetiracetam) 1,000 Mg Tablet 1 Tab PO BID Endocet 10-325 Mg Tablet (Oxycodone Hcl/Acetaminophen) 1 Each Tablet 1 Tab PO QID Flovent 110MCG Hfa (Fluticasone Propionate) 12 Gm Aer.w.adap 2 Puff IH BID Zolpidem Tartrate 5 Mg Tablet 1 Tab PO QHS Mirapex (Pramipexole Di-Hcl) 0.25 Mg Tablet 1 Tab PO DAILY Tylenol (Acetaminophen) 325 Mg Tablet 650 Mg PO PRN Q6HRS PRN Famotidine 20 Mg Tablet 20 Mg PO HS Ventolin Hfa Inhaler (Albuterol Sulfate) 18 Gm Hfa.aer.ad 1 Puff INH Q6HRS PRN Allergies Allergies: Coded Allergies: iodine (Verified Allergy, Severe, THROAT SWELLING, 09/24/18) lisinopril (Verified Allergy, Severe, 09/24/18) Fish Containing Products (Verified Allergy, Intermediate, 09/24/18) Penicillins (Verified Allergy, Intermediate, SEE COMMENT, 09/24/18) Tolerates meropenem and Cephalosporins piperacillin (Verified Allergy, Intermediate, Hives, 09/24/18) Tolerates meropenem tazobactam (Verified Allergy, Intermediate, 09/24/18) ROS Review of System As per HPI Physical Exam Physical Exam GENERAL: NAD HEENT: Head normocephalic, atraumatic. NECK: Supple LUNGS: Clear to auscultation. HEART: RRR, S1, S2 present ABDOMEN: Soft, Obese EXTREMITIES: No cyanosis or edema. 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 Will need right foot debridement with possible right 2 and 3rd toe amputation On Abx, Followed by ID and Vascular Acute Hypoxic Resp Failure secondary to HCAP, prob GN bacteria CT chest done Diastolic heart failure. Coronary artery disease Stable History of atrial fibrillation. Rate controlled. Continue medications. TIA history. Peripheral arterial disease. Status post left BKA. HTN- BP stable Anemia- KEITH as ordered Labs Labs Laboratory Tests Test 11/25/18 13:50 11/25/18 15:22 11/25/18 15:44 11/26/18 08:20 White Blood Count 16.6 x10^3/uL (4.0-11.0) Red Blood Count 2.96 x10^6/uL (4.30-5.70) Hemoglobin 8.1 g/dL (13.0-17.5) Hematocrit 25.8 % (39.0-53.0) Mean Corpuscular Volume 87 fL (79-100) Mean Corpuscular Hemoglobin 28 pg (25-35) Mean Corpuscular Hemoglobin Concent 32 g/dL (31-37) Red Cell Distribution Width 16.2 % (11.5-14.5) Platelet Count 199 x10^3/uL (140-400) Neutrophils (%) (Auto) 84 % (31-73) Lymphocytes (%) (Auto) 4 % (24-48) Monocytes (%) (Auto) 12 % (0-9) Eosinophils (%) (Auto) 0 % (0-3) Basophils (%) (Auto) 1 % (0-3) Neutrophils # (Auto) 13.9 x10^3uL (1.8-7.7) Lymphocytes # (Auto) 0.6 x10^3/uL (1.0-4.8) Monocytes # (Auto) 1.9 x10^3/uL (0.0-1.1) Eosinophils # (Auto) 0.1 x10^3/uL (0.0-0.7) Basophils # (Auto) 0.1 x10^3/uL (0.0-0.2) Segmented Neutrophils % 78 % (35-66) Band Neutrophils % 7 % (0-9) Lymphocytes % 1 % (24-48) Monocytes % 11 % (0-10) Eosinophils % 1 % (0-5) Basophils % 2 % (0-3) Platelet Estimate Adequate (ADEQUATE) Sodium Level 133 mmol/L (136-145) Potassium Level 4.1 mmol/L (3.5-5.1) Chloride Level 94 mmol/L (98-107) Carbon Dioxide Level 25 mmol/L (21-32) Anion Gap 14 (6-14) Blood Urea Nitrogen 71 mg/dL (8-26) Creatinine 8.2 mg/dL (0.7-1.3) Estimated GFR (Cockcroft-Gault) 8.3 BUN/Creatinine Ratio 9 (6-20) Glucose Level 145 mg/dL (70-99) Lactic Acid Level 1.1 mmol/L (0.4-2.0) Calcium Level 9.2 mg/dL (8.5-10.1) Total Bilirubin 0.7 mg/dL (0.2-1.0) Aspartate Amino Transf (AST/SGOT) 20 U/L (15-37) Alanine Aminotransferase (ALT/SGPT) 13 U/L (16-63) Alkaline Phosphatase 75 U/L (46-116) Total Protein 8.1 g/dL (6.4-8.2) Albumin 2.8 g/dL (3.4-5.0) Albumin/Globulin Ratio 0.5 (1.0-1.7) Influenza Type A Antigen Negative (NEGATIVE) Influenza Type B Antigen Negative (NEGATIVE) Nasal Screen MRSA (PCR) Negative (Negative) Glucose (Fingerstick) 109 mg/dL (70-99) Test 11/26/18 11:58 Glucose (Fingerstick) 129 mg/dL (70-99) Laboratory Tests Test 11/26/18 08:20 11/26/18 11:58 Glucose (Fingerstick) 109 mg/dL (70-99) 129 mg/dL (70-99) Review All relevant outside records, renal labs, imaging studies, telemetry/EKG's were reviewed. Images Images CTA- . Cardiomegaly with extensive coronary artery disease. 2. Minimal left basilar atelectasis. MINA RICHARDSON MD Nov 26, 2018 17:56
[2018-11-26] MEDS: ATORVASTATIN CALCIUM 40 MG TABLET. PO SCH (20:53)
[2018-11-26] MEDS: ZOLPIDEM 5 MG TABLET. PO SCH (20:53)
[2018-11-26] MEDS ORDERED: DARBEPOETIN ALFA 100 MCG/0.5 ML DISP.SYRIN. SQ SCH (21:00)
--- NOTE | 2018-11-26 22:37 | CONS ---
DATE OF CONSULTATION: 11/26/2018 REFERRING PHYSICIAN: Dr. Chang. REASON FOR CONSULTATION: Fever, antibiotic management. HISTORY OF PRESENT ILLNESS: A 53-year-old male, with history of chronic kidney disease on hemodialysis, diabetes, peripheral neuropathy, peripheral vascular disease, history of left BKA, history of osteomyelitis of the right fifth and fourth toe for which he underwent amputation in July 2018 and September of 2018, was seen in outpatient clinic for wound management as he has wound VAC in place. He had recently completed IV meropenem on 11/10/2018 for right fifth toe amputation site infection with osteomyelitis with Peptostreptococcus, status post right fourth toe amputation open with debridement and status post resection and debridement of necrotic tissue involving muscle tendon infection on 09/16/2018 with cultures positive for Veillonella species. The patient continued to follow up with the wound clinic due to wound VAC placement last week when he was at the dialysis center. According to the patient, he reported that since the dialysis session, his wound VAC was making some noise, which was not tolerated by other patients in the dialysis unit, it was cut off and the patient thus presented to wound VAC clinic yesterday for wound VAC placement and management. He was found to have a fever of 102, so he has been admitted to ICU for further evaluation and treatment. Initial working diagnosis was pneumonia. CT chest showed possible left basilar atelectasis, no consolidation. The patient's white count was elevated. He was given IV vancomycin, which was renally dosed along with Levaquin. ID consult has been requested for antibiotic management. The patient also had recent hospitalization in November week at which time he was diagnosed with volume overload and did not get any antibiotics. Though according to records, it mentions that he had been on IV vancomycin through a PICC line. The patient denies any PICC line and denies being on any antibiotics recently. The last dose of meropenem was 11/10/2018. Today, the patient says he has some shortness of breath, no cough. Has pain over the right second and third toe. He denies any headache, sore throat, sinus drainage, cough, shortness of breath, chest pain with deep breathing, nausea, vomiting, diarrhea, abdominal pain or symptoms. Blood cultures are done. CT chest shows cardiomegaly with extensive coronary artery disease and minimal left basilar atelectasis. Foot x-ray shows third digit proximal phalanx fracture, is new since the prior exam, interval amputation of the fourth and fifth digit as well as much of the metatarsal bone. Surrounding soft tissue gas may relate to recent surgical intervention. Chest x-ray shows increased left basilar opacity, possible infiltrate, poorly characterized due to enlarged cardiac silhouette. PAST MEDICAL HISTORY: Diabetes with peripheral neuropathy, peripheral vascular disease, hypertension, congestive heart failure, CVA, gastroesophageal reflux disease, coronary artery disease, chronic kidney disease on hemodialysis, history of seizures, COPD, sleep apnea, arthritis, hypothyroidism, anxiety, depression, atrial fibrillation, hyperlipidemia, history of MRSA, history of MSSA bacteremia, history of Enterobacter. PAST SURGICAL HISTORY: Left BKA, history of recent right fourth and fifth toe amputation with repeat surgery, cataract extraction, AV shunt, transurethral resection, prostatectomy, scrotal abscess with multiple I and Ds. SOCIAL HISTORY: He lives at home, . Former smoker. FAMILY HISTORY: Per HPI. ALLERGIES: PENICILLIN, PIPERACILLIN AND TAZOBACTAM, IODINE, LISINOPRIL, FISH-CONTAINING PRODUCTS, has tolerated meropenem. CURRENT MEDICATIONS: Vancomycin, renal dosing and Levaquin, renal dosing. Other medications are available and reviewed on the OCT. REVIEW OF SYSTEMS: Negative except for above in HPI. PHYSICAL EXAMINATION: VITAL SIGNS: Temperature 97.8, T-max 102.4, pulse 77, respiratory rate 20, blood pressure 121/55, oxygen saturation 100% on room air. GENERAL: Alert, oriented x 3 male lying in bed comfortably, eating, in no acute distress. HEENT: Normocephalic, atraumatic, anicteric. No thrush. Oral mucosa moist. NECK: Supple, no JVD. LUNGS: Clear bilaterally. HEART: S1, S2. ABDOMEN: Soft, obese. Bowel sounds present. EXTREMITIES: Left BKA stump covered, trace edema. Right lower extremity dressing taken down, there is lateral wound with some foul odor over the previous fourth and fifth amputation sites, large wound. There is swelling of the second and the third toes, plantar aspect with necrosis. Edema present, dorsum has some swelling, redness, erythema. Unable to feel dorsalis pedis. DERMATOLOGIC: Warm without generalized rash. NEUROLOGIC: Alert and oriented x 3. LINES: PIV looks okay. Shunt, left upper extremity looks. LABORATORY DATA: WBC 16.6, hemoglobin 8.1, hematocrit 25.8 and platelets 199. Sodium 133, potassium 4.1, chloride 94, bicarbonate 25, BUN 71, creatinine 8.2, glucose 145, lactate 1.1. LFTs within normal limits. Albumin 2.8. Influenza screen negative. MICROBIOLOGY: Blood cultures pending at this time. IMAGING: CT chest, cardiomegaly with extensive coronary artery disease, minimal left basilar atelectasis. Foot x-ray as above. IMPRESSION: 1. Right foot infection with 2nd and 3rd toe infection 2. history of recent fifth and fourth toe amputation sites with osteomyelitis with deep tissue infection with cultures positive for Peptostreptococcus and Veillonella, treated with IV meropenem, which he completed on 11/10/[address] with wound VAC in place. 3. Fever. 4 Leukocytosis. 5 End-stage renal disease, on hemodialysis. 6 Diabetes mellitus with peripheral neuropathy. 7 Peripheral vascular disease. 8. PENICILLIN allergy, has tolerated meropenem well. 9. Right third toe proximal phalanx fracture, new. RECOMMENDATIONS: 1. Continue vancomycin/meropenem. 2. Vascular Surgery planning for debridement. 3 Continue wound VAC management per wound team. 4. F/U Cults and labs in am 5. Continue supportive care. Thank you, Dr. Chang for asking us to participate in this patient's care. We will follow along with you. BHAVYA LIANG MD DR: HORTENCIA/roni JOB#: [id number] / [id number] YON
[2018-11-27] VITALS (7 sets, daily range): BP systolic 106–133; BP diastolic 53–67
[2018-11-27] MEDS: HEPARIN for SUB-Q USE 5,000 UNIT/ML VIAL. SQ SCH ×3 (00:06→20:26)
[2018-11-27] MEDS: ACETAMINOPHEN 325 MG TABLET. PO PRN (02:36)
[2018-11-27] MEDS ORDERED: VANCOMYCIN RANDOM LEVEL. MC ONE (06:00)
[2018-11-27] MEDS: BUDESONIDE 0.5 MG/2 ML NEBU. NEB SCH ×2 (06:10→19:27)
[2018-11-27 07:29] LABS: PROTHROMBIN TIME PATIENT 16.5 SEC (11.7-14.0)
[2018-11-27 07:30] LABS: BASO # 0.1 x10^3/uL (0.0-0.2); BASO % 1 % (0-3); EOS # 0.1 x10^3/uL (0.0-0.7); EOS % 1 % (0-3); HEMATOCRIT 24.9 % (39.0-53.0); HEMOGLOBIN 7.9 g/dL (13.0-17.5); LYMPH # 0.9 x10^3/uL (1.0-4.8); LYMPH % 6 % (24-48); MEAN CORPUSCULAR HEMOGLOBIN 28 pg (25-35); MEAN CORPUSCULAR HGB CONC 32 g/dL (31-37); MEAN CORPUSCULAR VOLUME 88 fL (79-100); MONO % 13 % (0-9); NEUT # 12.6 x10^3uL (1.8-7.7); NEUT % 80 % (31-73); PLATELET COUNT 235 x10^3/uL (140-400); RED BLOOD COUNT 2.82 x10^6/uL (4.30-5.70); RED CELL DISTRIBUTION WIDTH 16.6 % (11.5-14.5); WHITE BLOOD COUNT 15.8 x10^3/uL (4.0-11.0)
[2018-11-27] MEDS: levETIRAcetam 500 MG TABLET PO SCH ×2 (08:29→20:25)
[2018-11-27] MEDS: oxyCODONE/APAP 10/325 1 TAB TABLET PO SCH ×4 (08:30→20:26)
[2018-11-27] MEDS: LEVOTHYROXINE 175 MCG TABLET PO SCH (08:30)
[2018-11-27] MEDS: PRAMIPEXOLE 0.25 MG TABLET. PO SCH (08:31)
[2018-11-27] MEDS: ASPIRIN 325 MG TABLET PO SCH (09:00)
[2018-11-27] MEDS: CLOPIDOGREL BISULFATE 75 MG TABLET PO SCH (09:00)
--- NOTE | 2018-11-27 09:12 | PDOC ---
Infectious Disease Note Subjective: Subjective Pt says had low grade fever last night no cough or sob awaiting surgery later today D/W RN ROS: ROS Negative except for above. Vital Signs: Vital Signs Vital Signs Date Time Temp Pulse Resp B/P (MAP) Pulse Ox O2 Delivery O2 Flow Rate FiO2 11/27/18 08:30 Room Air 11/27/18 07:00 99.4 93 18 106/58 (74) 93 99.4 11/26/18 12:25 2.0 Physical Exam: PHYSICAL EXAM GENERAL: Alert, oriented x 3 male lying in bed comfortably, eating, in no acute distress. HEENT: Normocephalic, atraumatic, anicteric. No thrush. Oral mucosa moist. NECK: Supple, no JVD. LUNGS: Clear bilaterally. HEART: S1, S2. ABDOMEN: Soft, obese. Bowel sounds present. EXTREMITIES: Left BKA stump covered, trace edema. Right lower extremity dressing taken down, there is lateral wound with some foul odor over the previous fourth and fifth amputation sites, large wound. There is swelling of the second and the third toes, plantar aspect with necrosis. Edema present, dorsum has some swelling, redness, erythema. Unable to feel dorsalis pedis. DERMATOLOGIC: Warm without generalized rash. NEUROLOGIC: Alert and oriented x 3. LINES: PIV looks okay. Shunt, left upper extremity looks. Medications: Inpatient Meds: Current Medications Medications (Trade) Dose Ordered Sig/[place] Start Time Stop Time Status Last Admin Dose Admin Acetaminophen (Tylenol) 500 mg 1X PRN PRN 11/26/18 14:15 11/27/18 14:14 Acetaminophen/ Hydrocodone Bitart (Lortab 7.5/325) 1 tab PRN Q4HRS PRN 11/25/18 17:15 11/25/18 22:46 1 TAB Albumin Human 200 ml @ 200 mls/hr 1X PRN PRN 11/26/18 14:15 11/26/18 20:14 DC Albuterol Sulfate (Ventolin Neb Soln) 2.5 mg PRN Q6HRS PRN 11/25/18 17:45 Albuterol/ Ipratropium (Duoneb) 3 ml 1X ONCE 11/25/18 14:30 11/25/18 14:31 DC 11/25/18 14:30 3 ML Aspirin ([place] Aspirin) 325 mg DAILY 11/26/18 09:00 11/26/18 08:01 325 MG Atorvastatin Calcium (Lipitor) 40 mg QHS 11/25/18 21:00 11/26/18 20:53 40 MG Budesonide (Pulmicort) 0.5 mg RTBID 11/25/18 20:00 11/27/18 06:10 0.5 MG Calcium Carbonate/ Glycine (Oscal) 500 mg BID 11/25/18 21:00 11/26/18 20:53 500 MG Carvedilol (Coreg) 3.125 mg BIDWMEALS 11/25/18 18:30 11/26/18 08:03 3.125 MG Clopidogrel Bisulfate (Plavix) 75 mg DAILY 11/26/18 09:00 11/26/18 08:01 75 MG Darbepoetin Jace (Aranesp) 100 mcg WEEKLYHS 11/26/18 21:00 11/26/18 20:53 100 MCG Diphenhydramine HCl (Benadryl) 25 mg 1X PRN PRN 11/26/18 14:15 11/27/18 14:14 Famotidine (Pepcid) 20 mg Q48H 11/27/18 21:00 Heparin Sodium (Porcine) (Heparin Sodium) 5,000 unit Q8HRS 11/25/18 22:00 11/26/18 06:24 5,000 UNIT Info (PHARMACY MONITORING -- do not chart) 1 each PRN DAILY PRN 11/26/18 14:15 Isosorbide Mononitrate (Imdur) 30 mg DAILY 11/26/18 09:00 11/26/18 08:02 30 MG Lactobacillus Rhamnosus (Culturelle) 1 cap BID 11/26/18 09:00 11/26/18 20:53 1 CAP Levetiracetam (Keppra) 1,000 mg BID 11/25/18 21:00 11/27/18 08:29 1,000 MG Levofloxacin/ Dextrose 100 ml @ 100 mls/hr Q48H 11/27/18 14:00 11/27/18 14:00 DC Levofloxacin/ Dextrose (Levaquin Per Pharmacy) 1 each PRN DAILY PRN 11/25/18 17:30 11/26/18 09:31 DC Levothyroxine Sodium (Synthroid) 175 mcg DAILYAC 11/26/18 07:30 11/27/18 08:30 175 MCG Magnesium Oxide (Magnesium Oxide) 400 mg DAILY 11/26/18 09:00 11/26/18 08:02 400 MG Meropenem 500 mg/ Sodium Chloride 50 ml @ 100 mls/hr DAILY 11/26/18 10:00 11/26/18 10:18 100 MLS/HR Midazolam HCl (Versed) 5 mg STK-MED ONCE 11/25/18 18:00 11/26/18 07:42 DC Multivitamins (Thera M Plus) 1 tab DAILY 11/27/18 09:00 Non-Formulary Medication (Fluticasone Propionate (Flovent 110MCG Hfa)) 2 puff BID 11/25/18 21:00 UNV Oxycodone/ Acetaminophen (Percocet 10/325) 1 tab QID 11/25/18 21:00 11/27/18 08:30 1 TAB Pramipexole Dihydrochloride (miraPEX) 0.25 mg DAILY 11/26/18 09:00 11/27/18 08:31 0.25 MG Sodium Chloride 1,000 ml @ 400 mls/hr Q2H30M PRN 11/26/18 14:13 11/27/18 02:12 DC Sodium Chloride (Normal Saline Flush) 3 ml QSHIFT PRN 11/25/18 17:30 Vancomycin HCl (Vanco Per Pharmacy) 1 each PRN DAILY PRN 11/25/18 17:30 11/26/18 14:58 1 EACH Vancomycin HCl (Vancomycin Random Level) 1 each 1X ONCE 11/27/18 06:00 11/27/18 06:01 DC 11/27/18 06:00 1 EACH Vancomycin HCl 2 gm/Sodium Chloride 500 ml @ 250 mls/hr 1X ONCE 11/25/18 14:30 11/25/18 16:29 DC 11/25/18 14:30 250 MLS/HR Zolpidem Tartrate (Ambien) 5 mg QHS 11/25/18 21:00 11/26/18 20:53 5 MG Labs: Lab Laboratory Tests Test 11/26/18 11:58 11/26/18 20:35 11/27/18 06:05 11/27/18 07:30 Glucose (Fingerstick) 129 mg/dL (70-99) 142 mg/dL (70-99) 140 mg/dL (70-99) White Blood Count 15.8 x10^3/uL (4.0-11.0) Red Blood Count 2.82 x10^6/uL (4.30-5.70) Hemoglobin 7.9 g/dL (13.0-17.5) Hematocrit 24.9 % (39.0-53.0) Mean Corpuscular Volume 88 fL (79-100) Mean Corpuscular Hemoglobin 28 pg (25-35) Mean Corpuscular Hemoglobin Concent 32 g/dL (31-37) Red Cell Distribution Width 16.6 % (11.5-14.5) Platelet Count 235 x10^3/uL (140-400) Neutrophils (%) (Auto) 80 % (31-73) Lymphocytes (%) (Auto) 6 % (24-48) Monocytes (%) (Auto) 13 % (0-9) Eosinophils (%) (Auto) 1 % (0-3) Basophils (%) (Auto) 1 % (0-3) Neutrophils # (Auto) 12.6 x10^3uL (1.8-7.7) Lymphocytes # (Auto) 0.9 x10^3/uL (1.0-4.8) Monocytes # (Auto) 2.0 x10^3/uL (0.0-1.1) Eosinophils # (Auto) 0.1 x10^3/uL (0.0-0.7) Basophils # (Auto) 0.1 x10^3/uL (0.0-0.2) Prothrombin Time 16.5 SEC (11.7-14.0) Prothromb Time International Ratio 1.4 (0.8-1.1) Random Vancomycin Level 18.5 mcg/mL Objective: Assessment: 1. Right foot infection with 2nd and 3rd toe infection with necrosis 2. history of recent fifth and fourth toe amputation sites with osteomyelitis with deep tissue infection with cultures positive for Peptostreptococcus and Veillonella, treated with IV meropenem, which he completed on 11/10/[address] in place. 3. Fever. 4 Leukocytosis. 5 End-stage renal disease, on hemodialysis. 6 Diabetes mellitus with peripheral neuropathy. 7 Peripheral vascular disease. 8. PENICILLIN allergy, has tolerated meropenem well. 9. Right third toe proximal phalanx fracture, new. Plan: Plan of Care [facility] vascular surgery planning for I and D wound vac per wound team f/u armando D/W BHAVYA HASSAN MD Nov 27, 2018 09:12
[2018-11-27] MEDS: MEROPENEM 500 MG in IV NORMAL SALINE 50ML 50 ML IV SCH (09:54)
--- NOTE | 2018-11-27 10:32 | PDOC ---
PROGRESS NOTES Chief Complaint Chief Complaint RT 2nd and 3rd toe pain, fracture of rt 3rd toe RT foot infection history of recent fifth and fourth toe amputation sites with OM treated with IV meropenem, completed on 11/10/[address] with [address] in place. Fever esrd on hd H/O noncompliance End-stage renal disease, on hemodialysis. Diabetes mellitus with peripheral neuropathy. Peripheral vascular disease. History of Present Illness History of Present Illness 53 year old with hx of Noncompliance, ESRD, on dialysis, AFib, anxiety, asthma , coronary artery disease, CHF, stroke, diabetes, GERD, hypertension, hyperlipidemia, myocardial infarction, TIA, peripheral vascular disease, morbid obesity, left arm fistula, right fourth and fifth toe amputations, left below the knee amputation, scrotal surgery, cardiac stents recent admission in Sep for volume overload for missed HD who presents to the ED with 4 day hx of cough sob, and fever of 103. patient missed HD sessions. patient in wound clinic 11/25 for dressing changes and found to have fever so sent directly to ED for further evaluation. fever of 102 in ED. BP stable, normal lactate. cultures drawn and concern for infiltrate in lung. started on Vanc and Levaquin and admitted to ED. feels better today Plan: continue abx per ID vasc sx consulted: possible right 2 and 3rd toe amputation today wound care following dialysis per nephro Vitals Vitals Vital Signs Date Time Temp Pulse Resp B/P (MAP) Pulse Ox O2 Delivery O2 Flow Rate FiO2 11/27/18 08:30 Room Air 11/27/18 07:00 99.4 93 18 106/58 (74) 93 99.4 11/26/18 12:25 2.0 Physical Exam Physical Exam GENERAL: Alert, oriented x 3 male lying in bed comfortably, eating, in no acute distress. HEENT: Normocephalic, atraumatic, anicteric. No thrush. Oral mucosa moist. NECK: Supple, no JVD. LUNGS: Clear bilaterally. HEART: S1, S2. ABDOMEN: Soft, obese. Bowel sounds present. EXTREMITIES: Left BKA stump covered, trace edema. Right lower extremity dressing taken down, there is lateral wound with some foul odor over the previous fourth and fifth amputation sites, large wound. There is swelling of the second and the third toes, plantar aspect with necrosis. Edema present, dorsum has some swelling, redness, erythema. Unable to feel dorsalis pedis. DERMATOLOGIC: Warm without generalized rash. NEUROLOGIC: Alert and oriented x 3. LINES: PIV looks okay. Shunt, left upper extremity looks. General: Alert, Oriented X3, Cooperative, No acute distress Heart: Other (Bilateral femoral pulses 2+, right DP and PT pulses biphasic, strong on doppler. ) Lungs: Clear Abdomen: Normal bowel sounds, Soft Extremities: Other (Right foot edema to ankle. Lateral foot wound with purulent drainage throughout. Sloughed tissue on plantar surface of wound. Blister removed on plantar surface of foot below 2nd and 3rd toes, dark tissue underneath. Mild fluctuance throughout, no sinus tracts noted. Left BKA completely healed. Prior right 1st toe amputation healed. ) Skin: Other (Right 2nd MTP joint swollen) Labs LABS Laboratory Tests Test 11/26/18 11:58 11/26/18 20:35 11/27/18 06:05 11/27/18 07:30 Glucose (Fingerstick) 129 mg/dL (70-99) 142 mg/dL (70-99) 140 mg/dL (70-99) White Blood Count 15.8 x10^3/uL (4.0-11.0) Red Blood Count 2.82 x10^6/uL (4.30-5.70) Hemoglobin 7.9 g/dL (13.0-17.5) Hematocrit 24.9 % (39.0-53.0) Mean Corpuscular Volume 88 fL (79-100) Mean Corpuscular Hemoglobin 28 pg (25-35) Mean Corpuscular Hemoglobin Concent 32 g/dL (31-37) Red Cell Distribution Width 16.6 % (11.5-14.5) Platelet Count 235 x10^3/uL (140-400) Neutrophils (%) (Auto) 80 % (31-73) Lymphocytes (%) (Auto) 6 % (24-48) Monocytes (%) (Auto) 13 % (0-9) Eosinophils (%) (Auto) 1 % (0-3) Basophils (%) (Auto) 1 % (0-3) Neutrophils # (Auto) 12.6 x10^3uL (1.8-7.7) Lymphocytes # (Auto) 0.9 x10^3/uL (1.0-4.8) Monocytes # (Auto) 2.0 x10^3/uL (0.0-1.1) Eosinophils # (Auto) 0.1 x10^3/uL (0.0-0.7) Basophils # (Auto) 0.1 x10^3/uL (0.0-0.2) Prothrombin Time 16.5 SEC (11.7-14.0) Prothromb Time International Ratio 1.4 (0.8-1.1) Random Vancomycin Level 18.5 mcg/mL Assessment and Plan Assessmemt and Plan Problems Medical Problems: (1) Acute respiratory distress Status: Acute (2) Diabetic infection of right foot Status: Acute (3) Fever Status: Acute (4) HCAP (healthcare-associated pneumonia) Status: Acute (5) History of left below knee amputation Status: Acute (6) Sepsis Status: Acute (7) Symptomatic anemia Status: Acute (8) Toe fracture, right Status: Acute Comment Review of Relevant I have reviewed the following items lila (where applicable) has been applied. Labs Laboratory Tests Test 11/25/18 13:50 11/25/18 15:22 11/25/18 15:44 11/26/18 08:20 White Blood Count 16.6 x10^3/uL (4.0-11.0) Red Blood Count 2.96 x10^6/uL (4.30-5.70) Hemoglobin 8.1 g/dL (13.0-17.5) Hematocrit 25.8 % (39.0-53.0) Mean Corpuscular Volume 87 fL (79-100) Mean Corpuscular Hemoglobin 28 pg (25-35) Mean Corpuscular Hemoglobin Concent 32 g/dL (31-37) Red Cell Distribution Width 16.2 % (11.5-14.5) Platelet Count 199 x10^3/uL (140-400) Neutrophils (%) (Auto) 84 % (31-73) Lymphocytes (%) (Auto) 4 % (24-48) Monocytes (%) (Auto) 12 % (0-9) Eosinophils (%) (Auto) 0 % (0-3) Basophils (%) (Auto) 1 % (0-3) Neutrophils # (Auto) 13.9 x10^3uL (1.8-7.7) Lymphocytes # (Auto) 0.6 x10^3/uL (1.0-4.8) Monocytes # (Auto) 1.9 x10^3/uL (0.0-1.1) Eosinophils # (Auto) 0.1 x10^3/uL (0.0-0.7) Basophils # (Auto) 0.1 x10^3/uL (0.0-0.2) Segmented Neutrophils % 78 % (35-66) Band Neutrophils % 7 % (0-9) Lymphocytes % 1 % (24-48) Monocytes % 11 % (0-10) Eosinophils % 1 % (0-5) Basophils % 2 % (0-3) Platelet Estimate Adequate (ADEQUATE) Sodium Level 133 mmol/L (136-145) Potassium Level 4.1 mmol/L (3.5-5.1) Chloride Level 94 mmol/L (98-107) Carbon Dioxide Level 25 mmol/L (21-32) Anion Gap 14 (6-14) Blood Urea Nitrogen 71 mg/dL (8-26) Creatinine 8.2 mg/dL (0.7-1.3) Estimated GFR (Cockcroft-Gault) 8.3 BUN/Creatinine Ratio 9 (6-20) Glucose Level 145 mg/dL (70-99) Lactic Acid Level 1.1 mmol/L (0.4-2.0) Calcium Level 9.2 mg/dL (8.5-10.1) Total Bilirubin 0.7 mg/dL (0.2-1.0) Aspartate Amino Transf (AST/SGOT) 20 U/L (15-37) Alanine Aminotransferase (ALT/SGPT) 13 U/L (16-63) Alkaline Phosphatase 75 U/L (46-116) Total Protein 8.1 g/dL (6.4-8.2) Albumin 2.8 g/dL (3.4-5.0) Albumin/Globulin Ratio 0.5 (1.0-1.7) Influenza Type A Antigen Negative (NEGATIVE) Influenza Type B Antigen Negative (NEGATIVE) Nasal Screen MRSA (PCR) Negative (Negative) Glucose (Fingerstick) 109 mg/dL (70-99) Test 11/26/18 11:58 11/26/18 20:35 11/27/18 06:05 11/27/18 07:30 Glucose (Fingerstick) 129 mg/dL (70-99) 142 mg/dL (70-99) 140 mg/dL (70-99) White Blood Count 15.8 x10^3/uL (4.0-11.0) Red Blood Count 2.82 x10^6/uL (4.30-5.70) Hemoglobin 7.9 g/dL (13.0-17.5) Hematocrit 24.9 % (39.0-53.0) Mean Corpuscular Volume 88 fL (79-100) Mean Corpuscular Hemoglobin 28 pg (25-35) Mean Corpuscular Hemoglobin Concent 32 g/dL (31-37) Red Cell Distribution Width 16.6 % (11.5-14.5) Platelet Count 235 x10^3/uL (140-400) Neutrophils (%) (Auto) 80 % (31-73) Lymphocytes (%) (Auto) 6 % (24-48) Monocytes (%) (Auto) 13 % (0-9) Eosinophils (%) (Auto) 1 % (0-3) Basophils (%) (Auto) 1 % (0-3) Neutrophils # (Auto) 12.6 x10^3uL (1.8-7.7) Lymphocytes # (Auto) 0.9 x10^3/uL (1.0-4.8) Monocytes # (Auto) 2.0 x10^3/uL (0.0-1.1) Eosinophils # (Auto) 0.1 x10^3/uL (0.0-0.7) Basophils # (Auto) 0.1 x10^3/uL (0.0-0.2) Prothrombin Time 16.5 SEC (11.7-14.0) Prothromb Time International Ratio 1.4 (0.8-1.1) Random Vancomycin Level 18.5 mcg/mL Laboratory Tests Test 11/26/18 11:58 11/26/18 20:35 11/27/18 06:05 11/27/18 07:30 Glucose (Fingerstick) 129 mg/dL (70-99) 142 mg/dL (70-99) 140 mg/dL (70-99) White Blood Count 15.8 x10^3/uL (4.0-11.0) Red Blood Count 2.82 x10^6/uL (4.30-5.70) Hemoglobin 7.9 g/dL (13.0-17.5) Hematocrit 24.9 % (39.0-53.0) Mean Corpuscular Volume 88 fL (79-100) Mean Corpuscular Hemoglobin 28 pg (25-35) Mean Corpuscular Hemoglobin Concent 32 g/dL (31-37) Red Cell Distribution Width 16.6 % (11.5-14.5) Platelet Count 235 x10^3/uL (140-400) Neutrophils (%) (Auto) 80 % (31-73) Lymphocytes (%) (Auto) 6 % (24-48) Monocytes (%) (Auto) 13 % (0-9) Eosinophils (%) (Auto) 1 % (0-3) Basophils (%) (Auto) 1 % (0-3) Neutrophils # (Auto) 12.6 x10^3uL (1.8-7.7) Lymphocytes # (Auto) 0.9 x10^3/uL (1.0-4.8) Monocytes # (Auto) 2.0 x10^3/uL (0.0-1.1) Eosinophils # (Auto) 0.1 x10^3/uL (0.0-0.7) Basophils # (Auto) 0.1 x10^3/uL (0.0-0.2) Prothrombin Time 16.5 SEC (11.7-14.0) Prothromb Time International Ratio 1.4 (0.8-1.1) Random Vancomycin Level 18.5 mcg/mL Microbiology 11/25/18 Blood Culture - Preliminary, Resulted NO GROWTH AFTER 1 DAY Medications Current Medications Acetaminophen (Tylenol) 1,000 mg 1X ONCE PO Last administered on 11/25/18at 14: 04; Start 11/25/18 at 12:45; Stop 11/25/18 at 12:48; Status DC Sodium Chloride 500 ml @ 500 mls/hr 1X ONCE IV Last administered on at 14:00; Start 11/25/18 at 12:45; Stop 11/25/18 at 13:44; Status DC Sodium Chloride 1,000 ml @ 1,000 mls/hr 1X ONCE IV Last administered on at 14:39; Start 11/25/18 at 14:30; Stop 11/25/18 at 15:29; Status DC Albuterol/ Ipratropium (Duoneb) 3 ml 1X ONCE NEB Last administered on at 14:30; Start 11/25/18 at 14:30; Stop 11/25/18 at 14:31; Status DC Vancomycin HCl 2 gm/Sodium Chloride 500 ml @ 250 mls/hr 1X ONCE IV Last administered on 11/25/18at 14:30; Start 11/25/18 at 14:30; Stop 11/25/18 at 16:29 ; Status DC Levofloxacin/ Dextrose 150 ml @ 100 mls/hr 1X ONCE IV Last administered on at 14:39; Start 11/25/18 at 14:30; Stop 11/25/18 at 15:59; Status DC Acetaminophen/ Hydrocodone Bitart (Lortab 7.5/325) 1 tab PRN Q4HRS PRN PO PAIN Last administered on 11/25/18at 22:46; Start 11/25/18 at 17:15 Sodium Chloride (Normal Saline Flush) 3 ml QSHIFT PRN IV AFTER MEDS AND BLOOD DRAWS; Start 11/25/18 at 17:30 Vancomycin HCl (Vanco Per Pharmacy) 1 each PRN DAILY PRN MC SEE COMMENTS Last administered on 11/26/18at 14:58; Start 11/25/18 at 17:30 Levofloxacin/ Dextrose (Levaquin Per Pharmacy) 1 each PRN DAILY PRN MC SEE COMMENTS; Start 11/25/18 at 17:30; Stop 11/26/18 at 09:31; Status DC Levofloxacin/ Dextrose 100 ml @ 100 mls/hr Q48H IV ; Start 11/27/18 at 14:00; Stop 11/27/18 at 14:00; Status DC Heparin Sodium (Porcine) (Heparin Sodium) 5,000 unit Q8HRS SQ Last administered on 11/26/18at 06:24; Start 11/25/18 at 22:00 Acetaminophen (Tylenol) 650 mg PRN Q6HRS PRN PO FEVER Last administered on 11/27at 02:36; Start 11/25/18 at 17:45 Aspirin ([place] Aspirin) 325 mg DAILY PO Last administered on 11/26/18at 08:01; Start 11/26/18 at 09:00 Calcium Carbonate/ Glycine (Oscal) 500 mg BID PO Last administered on 20:53; Start 11/25/18 at 21:00 Carvedilol (Coreg) 3.125 mg BIDWMEALS PO Last administered on 11/26/18 08:03; Start 11/25/18 at 18:30 Clopidogrel Bisulfate (Plavix) 75 mg DAILY PO Last administered on 11/26/18 08 :01; Start 11/26/18 at 09:00 Famotidine (Pepcid) 20 mg HS PO Last administered on 11/25/18 20:34; Start at 21:00; Stop 11/26/18 at 08:53; Status DC Isosorbide Mononitrate (Imdur) 30 mg DAILY PO Last administered on 11/26/18 08 :02; Start 11/26/18 at 09:00 Levothyroxine Sodium (Synthroid) 175 mcg DAILYAC PO Last administered on 08:30; Start 11/26/18 at 07:30 Oxycodone/ Acetaminophen (Percocet 10/325) 1 tab QID PO Last administered on 08:30; Start 11/25/18 at 21:00 Zolpidem Tartrate (Ambien) 5 mg QHS PO Last administered on 11/26/18 20:53; Start 11/25/18 at 21:00 Albuterol Sulfate (Ventolin Neb Soln) 2.5 mg PRN Q6HRS PRN NEB SHORTNESS OF BREATH; Start 11/25/18 at 17:45 Atorvastatin Calcium (Lipitor) 40 mg QHS PO Last administered on 11/26/18 20: 53; Start 11/25/18 at 21:00 Non-Formulary Medication (Fluticasone Propionate (Flovent 110MCG Hfa)) 2 puff BID IH ; Start 11/25/18 at 21:00; Status UNV Levetiracetam (Keppra) 1,000 mg BID PO Last administered on 11/27/18 08:29; Start 11/25/18 at 21:00 Magnesium Oxide (Magnesium Oxide) 400 mg DAILY PO Last administered on 08:02; Start 11/26/18 at 09:00 Pramipexole Dihydrochloride (miraPEX) 0.25 mg DAILY PO Last administered on at 08:31; Start 11/26/18 at 09:00 Budesonide (Pulmicort) 0.5 mg RTBID NEB Last administered on 11/27/18at 06:10; Start 11/25/18 at 20:00 Vancomycin HCl (Vancomycin Random Level) 1 each 1X ONCE MC Last administered on 11/27/18at 06:00; Start 11/27/18 at 06:00; Stop 11/27/18 at 06:01; Status DC Midazolam HCl (Versed) 5 mg STK-MED ONCE .ROUTE ; Start 11/25/18 at 17:58; Stop 11/25/18 at 17:59; Status DC Lactobacillus Rhamnosus (Culturelle) 1 cap BID PO Last administered on at 20:53; Start 11/26/18 at 09:00 Midazolam HCl (Versed) 5 mg STK-MED ONCE .ROUTE ; Start 11/25/18 at 18:00; Stop 11/26/18 at 07:42; Status DC Famotidine (Pepcid) 20 mg Q48H PO ; Start 11/27/18 at 21:00 Meropenem 500 mg/ Sodium Chloride 50 ml @ 100 mls/hr DAILY IV Last administered on 11/27/18at 09:54; Start 11/26/18 at 10:00 Sodium Chloride 1,000 ml @ 1,000 mls/hr Q1H PRN IV hypotension; Start 11/26/18 at 14:13; Stop 11/26/18 at 20:12; Status DC Albumin Human 200 ml @ 200 mls/hr 1X PRN PRN IV Hypotension; Start 11/26/18 at 14:15; Stop 11/26/18 at 20:14; Status DC Acetaminophen (Tylenol) 500 mg 1X PRN PRN PO MILD PAIN / TEMP; Start 11/26/18 at 14:15; Stop 11/27/18 at 14:14 Diphenhydramine HCl (Benadryl) 25 mg 1X PRN PRN IV ITCHING; Start 11/26/18 at 14:15; Stop 11/27/18 at 14:14 Diphenhydramine HCl (Benadryl) 25 mg 1X PRN PRN IV ITCHING; Start 11/26/18 at 14:15; Stop 11/27/18 at 14:14 Sodium Chloride 1,000 ml @ 400 mls/hr Q2H30M PRN IV PATENCY; Start 11/26/18 at 14:13; Stop 11/27/18 at 02:12; Status DC Info (PHARMACY MONITORING -- do not chart) 1 each PRN DAILY PRN MC SEE COMMENTS ; Start 11/26/18 at 14:15 Multivitamins (Thera M Plus) 1 tab DAILY PO ; Start 11/27/18 at 09:00 Darbepoetin Jace (Aranesp) 100 mcg WEEKLYHS SQ Last administered on 11/26/18at 20:53; Start 11/26/18 at 21:00 Lidocaine HCl 48 ml/Sodium Bicarbonate 12 meq/Miscellaneous 60 ml @ 60 mls/hr 1X ONCE ID ; Start 11/28/18 at 06:00; Stop 11/28/18 at 06:59 Ondansetron HCl (Zofran) 4 mg PRN Q6HRS PRN IV NAUSEA/VOMITING; Start 11/28/18 at 07:00; Stop 11/28/18 at 20:00 Fentanyl Citrate (Fentanyl 2ml Vial) 25 mcg PRN Q5MIN PRN IV MILD PAIN; Start 11/28/18 at 07:00; Stop 11/28/18 at 20:00 Fentanyl Citrate (Fentanyl 2ml Vial) 50 mcg PRN Q5MIN PRN IV MODERATE TO SEVERE PAIN; Start 11/28/18 at 07:00; Stop 11/28/18 at 20:00 Morphine Sulfate (Morphine Sulfate) 1 mg PRN Q10MIN PRN IV SEVERE PAIN; Start 11/28/18 at 07:00; Stop 11/28/18 at 20:00 Ringer's Solution 1,000 ml @ 30 mls/hr Q24H IV ; Start 11/28/18 at 07:00; Stop 11/28/18 at 18:59 Lidocaine HCl (Xylocaine-Mpf 1% 2ml Vial) 2 ml PRN 1X PRN ID PRIOR TO IV START ; Start 11/28/18 at 07:00; Stop 11/28/18 at 20:00 Hydromorphone HCl (Dilaudid) 0.5 mg PRN Q10MIN PRN IV SEV PAIN, Second choice; Start 11/28/18 at 07:00; Stop 11/28/18 at 20:00 Prochlorperazine Edisylate (Compazine) 5 mg PACU PRN PRN IV NAUSEA, MRX1; Start 11/28/18 at 07:00; Stop 11/28/18 at 20:00 Active Scripts Active Isosorbide Mononitrate Er (Isosorbide Mononitrate) 30 Mg Tab.er.24h 30 Mg PO DAILY 30 Days Reported Aspirin 325 Mg Tablet 1 Tab PO DAILY Coreg (Carvedilol) 3.125 Mg Tablet 3.125 Mg PO BIDWMEALS Magnesium (Magnesium Oxide) 400 Mg Capsule 400 Mg PO DAILY Levothyroxine Sodium 175 Mcg Tablet 175 Mcg PO DAILYAC Plavix (Clopidogrel Bisulfate) 75 Mg Tablet 75 Mg PO DAILY Calcium Carbonate 500 Mg Tablet 500 Mg PO BID Lipitor (Atorvastatin Calcium) 80 Mg Tablet 40 Mg PO HS Keppra (Levetiracetam) 1,000 Mg Tablet 1 Tab PO BID Endocet 10-325 Mg Tablet (Oxycodone Hcl/Acetaminophen) 1 Each Tablet 1 Tab PO QID Flovent 110MCG Hfa (Fluticasone Propionate) 12 Gm Aer.w.adap 2 Puff IH BID Zolpidem Tartrate 5 Mg Tablet 1 Tab PO QHS Mirapex (Pramipexole Di-Hcl) 0.25 Mg Tablet 1 Tab PO DAILY Tylenol (Acetaminophen) 325 Mg Tablet 650 Mg PO PRN Q6HRS PRN Famotidine 20 Mg Tablet 20 Mg PO HS Ventolin Hfa Inhaler (Albuterol Sulfate) 18 Gm Hfa.aer.ad 1 Puff INH Q6HRS PRN Vitals/I & O Vital Sign - Last 24 Hours 11/26/18 11/26/18 11/26/18 11/26/18 11:15 12:25 19:40 20:14 Temp 98.1 98.1 Pulse 89 Resp 20 16 B/P (MAP) 100/51 (67) Pulse Ox 95 95 98 O2 Delivery Room Air Room Air Room Air Room Air O2 Flow Rate 2.0 11/26/18 11/26/18 11/26/18 11/27/18 20:53 22:00 23:00 03:00 Temp 98.1 100.3 98.1 100.3 Pulse 101 103 Resp 20 18 20 20 B/P (MAP) 93/72 (79) 121/53 (75) Pulse Ox 98 94 O2 Delivery Room Air Room Air Room Air Room Air 11/27/18 11/27/18 11/27/18 06:10 07:00 08:30 Temp 99.4 99.4 Pulse 93 Resp 18 B/P (MAP) 106/58 (74) Pulse Ox 99 93 O2 Delivery Room Air Room Air Room Air Intake and Output 11/26/18 11/26/18 11/27/18 15:00 23:00 07:00 Intake Total 120 ml 200 ml Output Total 0 ml Balance 120 ml 200 ml GOMEZ SUMNER MD Nov 27, 2018 10:32
[2018-11-27] MEDS: LACTOBACILLUS RHAMNOSUS GG 1 CAPSULE. PO SCH ×2 (12:05→20:25)
[2018-11-27] MEDS: MULTIVITAMIN with MINERAL TABLET. PO SCH (12:05)
[2018-11-27] MEDS: CALCIUM CARBONATE 500 MG TABLET PO SCH ×2 (12:05→20:25)
[2018-11-27] MEDS: ISOSORBIDE MONONITRATE ER 30 MG TAB.ER.24H PO SCH (12:05)
[2018-11-27] MEDS: MAGNESIUM OXIDE 400 MG TABLET PO SCH (12:06)
[2018-11-27] MEDS: CARVEDILOL 3.125 MG TABLET. PO SCH ×2 (12:06→17:28)
--- NOTE | 2018-11-27 12:07 | NUR ---
Held patients Aspirin and Plavix due to patient having a surgical procedure tomorrow 11/28/18 scheduled at 1100. Patient is on subq Heparin TID.
[2018-11-27] MEDS: VANCOMYCIN PER PHARMACY MC PRN (12:32)
--- NOTE | 2018-11-27 12:33 | NUR ---
Pharmacy Vancomycin Dosing Note S:Consulted to monitor and dose vancomycin started 11/25/18. O:BHAVYA WILKES is a 53 year old M with HCAP RIGHT FOOT INFECTION . Height: 6 feet, 6 inches Weight: 141.422479 kg [place] Body Weight: 91.40 Adjusted Body Weight: 111.64 Dosing Weight: Actual Other Antibiotics: MEROPENEM 500MG DAILY LEVAQUIN X 1 11/26 LABS: Last BUN: 71 Last Creatinine: 8.2 Creatinine Clearance: HD TUTHSA mL/min Last WBC: 15.8 Last Procalcitonin: Tmax (past 24 hours): 100.3 Microbiology: 11/25- BLOOD: NO GROWTH X 1 DAY I/O: 320/- Drug Levels: Last Random level: 18.5 on 11/27/18 at 0605 Last dose given 11/25/18 at 1430 Vancomycin Dosing: Loading Dose: 2000 mg x1 Dosing Weight: Actual Target Trough: 15-20 A: Based on: RANDOM LEVEL 18.5 P: 1. Give 500mg x1 today and schedule Vancomycin 500 mg IV AFTER HD TUTHSA 2. Follow up Random level as needed. 3. Pharmacy will continue to monitor, follow and adjust therapy as needed. JW COREAS [facility], 11/27/18 [id number]
[2018-11-27] MEDS ORDERED: VANCOMYCIN 500 MG in IV NORMAL SALINE 100ML 100 ML IV ONE (13:00)
--- NOTE | 2018-11-27 14:23 | PDOC ---
Provider Note Provider Note S: Pt seen today. Without complaints. Pt with good appetite. He reports pain is minimal when asked. O: VSS, febrile yesterday Alert, oriented in no apparent distress Respirations nonlabored Abdomen obese, nontender Left BKA healed Right foot with dressing in place, malodorous (please see detailed exam from full consult note) A/P: Infected right lateral foot wound s/p right 4th toe amputation and foot debridement on 09/24/18. - Pt scheduled for debridement with possible right 2/3 toe amputations tomorrow morning with Dr. Alvarez. This will be first am case and pt can go to dialysis after the procedure. I discussed procedure with patient again today, who exhibited understanding and agreed to proceed. - Continue IV abx per ID, hold wound vac therapy until procedure. Place silver aquacel over wound until procedure tomorrow. GONZALO RADFORD Nov 27, 2018 14:23
--- NOTE | 2018-11-27 15:41 | NUR ---
SW following pt for anticipated dc needs. Chart reviewed and DW RN. Pt lives at home with spouse and has OP HD. Pt is having a procedure tomorrow and might benefit form PT/OT eval/tx after. Pt has been with [facility] in the past. SW will continue to assess dc needs.
--- NOTE | 2018-11-27 15:52 | PDOC ---
SUBJECTIVE ROS States feeling fine OBJECTIVE Vital Signs Vital Signs Date Time Temp Pulse Resp B/P (MAP) Pulse Ox O2 Delivery O2 Flow Rate FiO2 11/27/18 15:00 97.4 92 18 120/55 (76) 93 Room Air 2.0 97.4 I & 0 Intake and Output 11/27/18 06:59 Intake Total 320 ml Output Total 0 ml Balance 320 ml Intake Oral 200 ml Blood Product 120 ml Output Urine Total 0 ml PHYSICAL EXAM Physical Exam GENERAL: NAD HEENT: Head normocephalic, atraumatic. NECK: Supple LUNGS: Clear to auscultation. HEART: RRR, S1, S2 present ABDOMEN: Soft, Obese EXTREMITIES: No cyanosis or edema. right foot wound wrapped; Lt BKA LUE dialysis access site NEUROLOGIC: Grossly Normal SKIN No Rash No Henry DIAGNOSIS/ASSESSMENT Assessment & Plan ESRD - On HD TTS Chronic Non Compliance No indication for HD today Infected right lateral foot wound s/p right 4th toe amputation and foot debridement on 09/24/18. scheduled for debridement with possible right 2/3 toe amputations tomorrow morning On Abx, Followed by ID and Vascular Acute Hypoxic Resp Failure secondary to HCAP, prob GN bacteria CT chest done Diastolic heart failure. Coronary artery disease Stable History of atrial fibrillation. Rate controlled. Continue medications. TIA history. Peripheral arterial disease. Status post left BKA. HTN- BP stable Anemia- KEITH as ordered COMMENT/RELEVANT DATA Meds Current Medications Medications (Trade) Dose Ordered Sig/Florence Start Time Stop Time Status Last Admin Dose Admin Acetaminophen (Tylenol) 500 mg 1X PRN PRN 11/26/18 14:15 11/27/18 14:14 DC Acetaminophen/ Hydrocodone Bitart (Lortab 7.5/325) 1 tab PRN Q4HRS PRN 11/25/18 17:15 11/25/18 22:46 1 TAB Albumin Human 200 ml @ 200 mls/hr 1X PRN PRN 11/26/18 14:15 11/26/18 20:14 DC Albuterol Sulfate (Ventolin Neb Soln) 2.5 mg PRN Q6HRS PRN 11/25/18 17:45 Albuterol/ Ipratropium (Duoneb) 3 ml 1X ONCE 11/25/18 14:30 11/25/18 14:31 DC 11/25/18 14:30 3 ML Aspirin ([place]des Aspirin) 325 mg DAILY 11/26/18 09:00 11/26/18 08:01 325 MG Atorvastatin Calcium (Lipitor) 40 mg QHS 11/25/18 21:00 11/26/18 20:53 40 MG Budesonide (Pulmicort) 0.5 mg RTBID 11/25/18 20:00 11/27/18 06:10 0.5 MG Calcium Carbonate/ Glycine (Oscal) 500 mg BID 11/25/18 21:00 11/27/18 12:05 500 MG Carvedilol (Coreg) 3.125 mg BIDWMEALS 11/25/18 18:30 11/27/18 12:06 3.125 MG Clopidogrel Bisulfate (Plavix) 75 mg DAILY 11/26/18 09:00 11/26/18 08:01 75 MG Darbepoetin Jace (Aranesp) 100 mcg WEEKLYHS 11/26/18 21:00 11/26/18 20:53 100 MCG Diphenhydramine HCl (Benadryl) 25 mg 1X PRN PRN 11/26/18 14:15 11/27/18 14:14 DC Famotidine (Pepcid) 20 mg Q48H 11/27/18 21:00 Fentanyl Citrate (Fentanyl 2ml Vial) 50 mcg PRN Q5MIN PRN 11/28/18 07:00 11/28/18 20:00 Heparin Sodium (Porcine) (Heparin Sodium) 5,000 unit Q8HRS 11/25/18 22:00 11/27/18 13:36 5,000 UNIT Hydromorphone HCl (Dilaudid) 0.5 mg PRN Q10MIN PRN 11/28/18 07:00 11/28/18 20:00 Info (PHARMACY MONITORING -- do not chart) 1 each PRN DAILY PRN 11/26/18 14:15 Isosorbide Mononitrate (Imdur) 30 mg DAILY 11/26/18 09:00 11/27/18 12:05 30 MG Lactobacillus Rhamnosus (Culturelle) 1 cap BID 11/26/18 09:00 11/27/18 12:05 1 CAP Levetiracetam (Keppra) 1,000 mg BID 11/25/18 21:00 11/27/18 08:29 1,000 MG Levofloxacin/ Dextrose 100 ml @ 100 mls/hr Q48H 11/27/18 14:00 11/27/18 14:00 DC Levofloxacin/ Dextrose (Levaquin Per Pharmacy) 1 each PRN DAILY PRN 11/25/18 17:30 11/26/18 09:31 DC Levothyroxine Sodium (Synthroid) 175 mcg DAILYAC 11/26/18 07:30 11/27/18 08:30 175 MCG Lidocaine HCl (Xylocaine-Mpf 1% 2ml Vial) 2 ml PRN 1X PRN 11/28/18 07:00 11/28/18 20:00 Lidocaine HCl 48 ml/Sodium Bicarbonate 12 meq/Miscellaneous 60 ml @ 60 mls/hr 1X ONCE 11/28/18 06:00 11/28/18 06:59 Magnesium Oxide (Magnesium Oxide) 400 mg DAILY 11/26/18 09:00 11/27/18 12:06 400 MG Meropenem 500 mg/ Sodium Chloride 50 ml @ 100 mls/hr DAILY 11/26/18 10:00 11/27/18 09:54 100 MLS/HR Midazolam HCl (Versed) 5 mg STK-MED ONCE 11/25/18 18:00 11/26/18 07:42 DC Morphine Sulfate (Morphine Sulfate) 1 mg PRN Q10MIN PRN 11/28/18 07:00 11/28/18 20:00 Multivitamins (Thera M Plus) 1 tab DAILY 11/27/18 09:00 11/27/18 12:05 1 TAB Non-Formulary Medication (Fluticasone Propionate (Flovent 110MCG Hfa)) 2 puff BID 11/25/18 21:00 UNV Ondansetron HCl (Zofran) 4 mg PRN Q6HRS PRN 11/28/18 07:00 11/28/18 20:00 Oxycodone/ Acetaminophen (Percocet 10/325) 1 tab QID 11/25/18 21:00 11/27/18 13:29 1 TAB Pramipexole Dihydrochloride (miraPEX) 0.25 mg DAILY 11/26/18 09:00 11/27/18 08:31 0.25 MG Prochlorperazine Edisylate (Compazine) 5 mg PACU PRN PRN 11/28/18 07:00 11/28/18 20:00 Ringer's Solution 1,000 ml @ 30 mls/hr Q24H 11/28/18 07:00 11/28/18 18:59 Sodium Chloride 1,000 ml @ 400 mls/hr Q2H30M PRN 11/26/18 14:13 11/27/18 02:12 DC Sodium Chloride (Normal Saline Flush) 3 ml QSHIFT PRN 11/25/18 17:30 Vancomycin HCl (Vanco Per Pharmacy) 1 each PRN DAILY PRN 11/25/18 17:30 11/27/18 12:32 1 EACH Vancomycin HCl (Vancomycin Random Level) 1 each 1X ONCE 11/27/18 06:00 11/27/18 06:01 DC 11/27/18 06:00 1 EACH Vancomycin HCl 500 mg/Sodium Chloride 100 ml @ 100 mls/hr QTUTHSA 11/28/18 16:00 Vancomycin HCl 2 gm/Sodium Chloride 500 ml @ 250 mls/hr 1X ONCE 11/25/18 14:30 11/25/18 16:29 DC 11/25/18 14:30 250 MLS/HR Zolpidem Tartrate (Ambien) 5 mg QHS 11/25/18 21:00 11/26/18 20:53 5 MG Lab Laboratory Tests Test 11/26/18 20:35 11/27/18 06:05 11/27/18 07:30 11/27/18 11:35 Glucose (Fingerstick) 142 mg/dL (70-99) 140 mg/dL (70-99) 148 mg/dL (70-99) White Blood Count 15.8 x10^3/uL (4.0-11.0) Red Blood Count 2.82 x10^6/uL (4.30-5.70) Hemoglobin 7.9 g/dL (13.0-17.5) Hematocrit 24.9 % (39.0-53.0) Mean Corpuscular Volume 88 fL (79-100) Mean Corpuscular Hemoglobin 28 pg (25-35) Mean Corpuscular Hemoglobin Concent 32 g/dL (31-37) Red Cell Distribution Width 16.6 % (11.5-14.5) Platelet Count 235 x10^3/uL (140-400) Neutrophils (%) (Auto) 80 % (31-73) Lymphocytes (%) (Auto) 6 % (24-48) Monocytes (%) (Auto) 13 % (0-9) Eosinophils (%) (Auto) 1 % (0-3) Basophils (%) (Auto) 1 % (0-3) Neutrophils # (Auto) 12.6 x10^3uL (1.8-7.7) Lymphocytes # (Auto) 0.9 x10^3/uL (1.0-4.8) Monocytes # (Auto) 2.0 x10^3/uL (0.0-1.1) Eosinophils # (Auto) 0.1 x10^3/uL (0.0-0.7) Basophils # (Auto) 0.1 x10^3/uL (0.0-0.2) Prothrombin Time 16.5 SEC (11.7-14.0) Prothromb Time International Ratio 1.4 (0.8-1.1) Random Vancomycin Level 18.5 mcg/mL Results All relevant outside records, renal labs, imaging studies, telemetry/EKG's were reviewed. MINA RICHARDSON MD Nov 27, 2018 15:52
[2018-11-27] MEDS: ZOLPIDEM 5 MG TABLET. PO SCH (20:24)
[2018-11-27] MEDS: FAMOTIDINE 20 MG TABLET. PO SCH (20:25)
[2018-11-27] MEDS: ATORVASTATIN CALCIUM 40 MG TABLET. PO SCH (20:25)
[2018-11-27] MEDS: HYDROcodone/APAP 7.5/325MG 1 TAB TABLET PO PRN (22:32)
[2018-11-28 03:00] VITALS: BP 126/73
[2018-11-28] MEDS: ACETAMINOPHEN 325 MG TABLET. PO PRN (04:45)
[2018-11-28] MEDS ORDERED: LIDOCAINE 1% PF 30ML 48 ML, SODIUM BICARBONATE VIAL 12 MEQ in TOTAL VOLUME SYRINGE 60 ML ID ONE (06:00)
[2018-11-28] MEDS ORDERED: ONDANSETRON PF 4 MG/2 ML VIAL. IV PRN (07:00)
[2018-11-28] MEDS ORDERED: HYDROmorphone 2 MG/ML VIAL IV PRN (07:00)
[2018-11-28] MEDS ORDERED: MORPHINE SULFATE 2 MG/ML VIAL. IV PRN ×2 (07:00→09:15)
[2018-11-28] MEDS ORDERED: LIDOCAINE 1% PF 2 ML VIAL. ID PRN (07:00)
[2018-11-28] MEDS ORDERED: IV RINGERS,LACTATED 1000ML 1,000 ML IV SCH (07:00)
[2018-11-28] MEDS ORDERED: PROCHLORPERAZINE 10 MG/2 ML VIAL. IV PRN (07:00)
[2018-11-28] MEDS ORDERED: fentaNYL PF VIAL 100 MCG/2 ML VIAL IV PRN ×2 (07:00)
[2018-11-28] MEDS ORDERED: IV NORMAL SALINE 1000ML BAG 1,000 ML IV PRN ×2 (07:04)
[2018-11-28] MEDS ORDERED: diphenhydrAMINE 50 MG/ML VIAL IV PRN ×2 (07:15)
[2018-11-28] MEDS ORDERED: DIALYSIS PATIENT. MC PRN (07:15)
[2018-11-28] MEDS ORDERED: ACETAMINOPHEN 500 MG TABLET PO PRN (07:15)
[2018-11-28] MEDS ORDERED: ALBUMIN HUMAN 25% 200 ML IV PRN (07:15)
[2018-11-28] MEDS: LEVOTHYROXINE 175 MCG TABLET PO SCH (07:30)
[2018-11-28] MEDS ORDERED: silver sulfADIAZINE 1% CREAM 25GM TUBE. TP ONE (07:36)
[2018-11-28] MEDS: BUDESONIDE 0.5 MG/2 ML NEBU. NEB SCH ×2 (07:40→20:40)
[2018-11-28] MEDS: CARVEDILOL 3.125 MG TABLET. PO SCH ×2 (08:00→16:17)
[2018-11-28] MEDS ORDERED: FAMOTIDINE 20 MG/2 ML VIAL ONE (08:23)
[2018-11-28] MEDS ORDERED: DEXAMETHASONE SOD PHOS 20 MG/5 ML VIAL. ONE (08:23)
[2018-11-28] MEDS ORDERED: PROPOFOL 20 ML IV ONE (08:23)
[2018-11-28] MEDS ORDERED: LIDOCAINE 2% PF 5 ML VIAL. ONE (08:23)
[2018-11-28] MEDS ORDERED: ONDANSETRON PF 4 MG/2 ML VIAL. ONE (08:23)
[2018-11-28] MEDS ORDERED: PHENYLEPHRINE in 0.9% NACL PF 1 MG/10 ML SYRINGE. IV ONE (08:23)
[2018-11-28 08:32] VITALS: BP 110/55
[2018-11-28] MEDS: PRAMIPEXOLE 0.25 MG TABLET. PO SCH (09:00)
[2018-11-28] MEDS: ASPIRIN 325 MG TABLET PO SCH (09:00)
[2018-11-28] MEDS: LACTOBACILLUS RHAMNOSUS GG 1 CAPSULE. PO SCH ×2 (09:00→21:12)
[2018-11-28] MEDS: oxyCODONE/APAP 10/325 1 TAB TABLET PO SCH ×4 (09:00→21:11)
[2018-11-28] MEDS: CLOPIDOGREL BISULFATE 75 MG TABLET PO SCH (09:00)
[2018-11-28] MEDS: levETIRAcetam 500 MG TABLET PO SCH ×2 (09:00→21:10)
[2018-11-28] MEDS: MEROPENEM 500 MG in IV NORMAL SALINE 50ML 50 ML IV SCH ×2 (09:00→09:28)
[2018-11-28] MEDS: CALCIUM CARBONATE 500 MG TABLET PO SCH ×2 (09:00→21:10)
[2018-11-28] MEDS: MULTIVITAMIN with MINERAL TABLET. PO SCH (09:00)
[2018-11-28] MEDS: MAGNESIUM OXIDE 400 MG TABLET PO SCH (09:00)
[2018-11-28] MEDS: ISOSORBIDE MONONITRATE ER 30 MG TAB.ER.24H PO SCH (09:00)
[2018-11-28] MEDS ORDERED: SEVOFLURANE 31 TO 60 MINUTES. IH ONE (09:41)
--- NOTE | 2018-11-28 10:00 | PDOC ---
Infectious Disease Note Subjective: Subjective pt underwent surgery this am undergoing diaysis no f/c/n/v/d/sob D/W RN ROS: ROS Negative except for above. Vital Signs: Vital Signs Vital Signs Date Time Temp Pulse Resp B/P (MAP) Pulse Ox O2 Delivery O2 Flow Rate FiO2 11/28/18 08:32 99.6 87 110/55 (73) 95 Room Air 2.0 99.6 11/28/18 07:30 20 Physical Exam: PHYSICAL EXAM GENERAL: Alert, oriented x 3 male lying in bed comfortably, eating, in no acute distress. HEENT: Normocephalic, atraumatic, anicteric. No thrush. Oral mucosa moist. NECK: Supple, no JVD. LUNGS: Clear bilaterally. HEART: S1, S2. ABDOMEN: Soft, obese. Bowel sounds present. EXTREMITIES: Left BKA stump healed, RT foot dressing in place ,intact DERMATOLOGIC: Warm without generalized rash. NEUROLOGIC: Alert and oriented x 3. LINES: PIV looks okay. Shunt, left upper extremity looks. Medications: Inpatient Meds: Current Medications Medications (Trade) Dose Ordered Sig/Florence Start Time Stop Time Status Last Admin Dose Admin Acetaminophen (Tylenol) 500 mg 1X PRN PRN 11/28/18 07:15 11/29/18 07:14 Acetaminophen/ Hydrocodone Bitart (Lortab 7.5/325) 1 tab PRN Q4HRS PRN 11/25/18 17:15 11/27/18 22:32 1 TAB Albumin Human 200 ml @ 200 mls/hr 1X PRN PRN 11/28/18 07:15 11/28/18 13:14 Albuterol Sulfate (Ventolin Neb Soln) 2.5 mg PRN Q6HRS PRN 11/25/18 17:45 Albuterol/ Ipratropium (Duoneb) 3 ml 1X ONCE 11/25/18 14:30 11/25/18 14:31 DC 11/25/18 14:30 3 ML Aspirin ([place]des Aspirin) 325 mg DAILY 11/26/18 09:00 11/26/18 08:01 325 MG Atorvastatin Calcium (Lipitor) 40 mg QHS 11/25/18 21:00 11/27/18 20:25 40 MG Budesonide (Pulmicort) 0.5 mg RTBID 11/25/18 20:00 11/27/18 19:27 0.5 MG Calcium Carbonate/ Glycine (Oscal) 500 mg BID 11/25/18 21:00 11/27/18 20:25 500 MG Carvedilol (Coreg) 3.125 mg BIDWMEALS 11/25/18 18:30 11/27/18 17:28 3.125 MG Clopidogrel Bisulfate (Plavix) 75 mg DAILY 11/26/18 09:00 11/26/18 08:01 75 MG Darbepoetin Jace (Aranesp) 100 mcg WEEKLYHS 11/26/18 21:00 11/26/18 20:53 100 MCG Dexamethasone Sodium Phosphate (Decadron) 20 mg STK-MED ONCE 11/28/18 08:23 11/28/18 08:24 DC Diphenhydramine HCl (Benadryl) 25 mg 1X PRN PRN 11/28/18 07:15 11/29/18 07:14 Famotidine (Pepcid Vial) 20 mg STK-MED ONCE 11/28/18 08:23 11/28/18 08:24 DC Famotidine (Pepcid) 20 mg Q48H 11/27/18 21:00 11/27/18 20:25 20 MG Fentanyl Citrate (Fentanyl 2ml Vial) 50 mcg PRN Q5MIN PRN 11/28/18 07:00 11/28/18 20:00 Heparin Sodium (Porcine) (Heparin Sodium) 5,000 unit Q8HRS 11/25/18 22:00 11/27/18 13:36 5,000 UNIT Hydromorphone HCl (Dilaudid) 0.5 mg PRN Q10MIN PRN 11/28/18 07:00 11/28/18 20:00 Info (PHARMACY MONITORING -- do not chart) 1 each PRN DAILY PRN 11/28/18 07:15 Isosorbide Mononitrate (Imdur) 30 mg DAILY 11/26/18 09:00 11/27/18 12:05 30 MG Lactobacillus Rhamnosus (Culturelle) 1 cap BID 11/26/18 09:00 11/27/18 20:25 1 CAP Levetiracetam (Keppra) 1,000 mg BID 11/25/18 21:00 11/27/18 20:25 1,000 MG Levofloxacin/ Dextrose 100 ml @ 100 mls/hr Q48H 11/27/18 14:00 11/27/18 14:00 DC Levofloxacin/ Dextrose (Levaquin Per Pharmacy) 1 each PRN DAILY PRN 11/25/18 17:30 11/26/18 09:31 DC Levothyroxine Sodium (Synthroid) 175 mcg DAILYAC 11/26/18 07:30 11/27/18 08:30 175 MCG Lidocaine HCl (Lidocaine Pf 2% Vial) 5 ml STK-MED ONCE 11/28/18 08:23 11/28/18 08:24 DC Lidocaine HCl (Xylocaine-Mpf 1% 2ml Vial) 2 ml PRN 1X PRN 11/28/18 07:00 11/28/18 20:00 Lidocaine HCl 48 ml/Sodium Bicarbonate 12 meq/Miscellaneous 60 ml @ 60 mls/hr 1X ONCE 11/28/18 06:00 11/28/18 06:59 DC Magnesium Oxide (Magnesium Oxide) 400 mg DAILY 11/26/18 09:00 11/27/18 12:06 400 MG Meropenem 500 mg/ Sodium Chloride 50 ml @ 100 mls/hr DAILY 11/26/18 10:00 11/28/18 09:28 100 MLS/HR Midazolam HCl (Versed) 5 mg STK-MED ONCE 11/25/18 18:00 11/26/18 07:42 DC Morphine Sulfate (Morphine Sulfate) 2 mg PRN Q2HR PRN 11/28/18 09:15 Multivitamins (Thera M Plus) 1 tab DAILY 11/27/18 09:00 11/27/18 12:05 1 TAB Non-Formulary Medication (Fluticasone Propionate (Flovent 110MCG Hfa)) 2 puff BID 11/25/18 21:00 UNV Ondansetron HCl (Zofran) 4 mg STK-MED ONCE 11/28/18 08:23 11/28/18 08:24 DC Oxycodone/ Acetaminophen (Percocet 10/325) 1 tab QID 11/25/18 21:00 11/27/18 13:29 1 TAB Phenylephrine HCl (PHENYLEPHRINE in 0.9% NACL PF) 1 mg STK-MED ONCE 11/28/18 08:23 11/28/18 08:24 DC Pramipexole Dihydrochloride (miraPEX) 0.25 mg DAILY 11/26/18 09:00 11/27/18 08:31 0.25 MG Prochlorperazine Edisylate (Compazine) 5 mg PACU PRN PRN 11/28/18 07:00 11/28/18 20:00 Propofol 20 ml @ As Directed STK-MED ONCE 11/28/18 08:23 11/28/18 08:24 DC Ringer's Solution 1,000 ml @ 30 mls/hr Q24H 11/28/18 07:00 11/28/18 18:59 Sevoflurane (Ultane) 30 ml STK-MED ONCE 11/28/18 09:41 11/28/18 09:42 DC Silver Sulfadiazine (Silvadene) 25 ayaz STK-MED ONCE 11/28/18 07:36 11/28/18 08:37 DC Sodium Chloride 1,000 ml @ 400 mls/hr Q2H30M PRN 11/28/18 07:04 11/28/18 19:03 Sodium Chloride (Normal Saline Flush) 3 ml QSHIFT PRN 11/25/18 17:30 Vancomycin HCl (Vanco Per Pharmacy) 1 each PRN DAILY PRN 11/25/18 17:30 11/27/18 12:32 1 EACH Vancomycin HCl (Vancomycin Random Level) 1 each 1X ONCE 11/27/18 06:00 11/27/18 06:01 DC 11/27/18 06:00 1 EACH Vancomycin HCl 500 mg/Sodium Chloride 100 ml @ 100 mls/hr QTUTHSA 11/28/18 16:00 Vancomycin HCl 2 gm/Sodium Chloride 500 ml @ 250 mls/hr 1X ONCE 11/25/18 14:30 11/25/18 16:29 DC 11/25/18 14:30 250 MLS/HR Zolpidem Tartrate (Ambien) 5 mg QHS 11/25/18 21:00 11/26/18 20:53 5 MG Labs: Lab Laboratory Tests Test 11/27/18 11:35 11/27/18 16:28 11/27/18 20:45 11/28/18 07:34 Glucose (Fingerstick) 148 mg/dL (70-99) 148 mg/dL (70-99) 145 mg/dL (70-99) 116 mg/dL (70-99) Objective: Assessment: 1. Right foot infection with 2nd and 3rd toe infection with necrosis 2. history of recent fifth and fourth toe amputation sites with osteomyelitis with deep tissue infection with cultures positive for Peptostreptococcus and Veillonella, treated with IV meropenem, which he completed on 11/10/[address] in place. 3. Fever. 4 Leukocytosis. 5 End-stage renal disease, on hemodialysis. 6 Diabetes mellitus with peripheral neuropathy. 7 Peripheral vascular disease. 8. PENICILLIN allergy, has tolerated meropenem well. 9. Right third toe proximal phalanx fracture, new. Plan: Plan of Care Cont vanc/merrem s/p levofloxacin wound vac/care f/u bc D/W BHAVYA HASSAN MD Nov 28, 2018 10:00
--- NOTE | 2018-11-28 10:11 | PDOC ---
BRIEF OPERATIVE NOTE Date: Nov 28, 2018 Pre-Op Diagnosis Right foot soft tissue infection and gangrene of right 2nd and 3rd toes Post-Op Diagnosis Same, plus soft tissue infection of remaining right 1st toe Procedure Performed 1. Right 2nd and 3rd toe amputation, open 2. Right first metatarsal partial resection 3. Right lateral foot debridement Surgeon Mo Alvarez MD [place] None Anesthesia Type: General Blood Loss 20mL Specimens Obtained Right 2nd and 3rd toes, part of right 1st metatarsal Findings Ok bleeding Complications None Operative Note See detailed op note GONZALO RADFORD Nov 28, 2018 10:11
[2018-11-28] MEDS ORDERED: fentaNYL PF VIAL 100 MCG/2 ML VIAL ONE (10:12)
--- NOTE | 2018-11-28 10:47 | OP ---
DATE OF SURGERY: 11/28/2018 PREOPERATIVE DIAGNOSIS: Gangrene with soft tissue infection involving the first, second and third toes of the right foot. PROCEDURE PERFORMED: First, second and third ray amputations, with wound debridement. SURGEON: Mo Alvarez M.D. ANESTHESIA: General. INDICATIONS: This is a 53-year-old male with underlying diabetes and peripheral vascular disease. He was admitted to the hospital with soft tissue infection involving the second and third toes of the right foot. He has been placed on intravenous antibiotics. Recommendation was for ray amputation and wound debridement. He has had a previous fourth and fifth ray amputation. That wound is open and granulating. At the time of surgical exploration, there was a purulent material extending both superior and inferior to the first metatarsophalangeal joint and for that reason, in addition to the second and third ray amputation, the first metatarsal head was removed (the distal portion of the first toe had previously been amputated). DESCRIPTION OF PROCEDURE: The patient was given general anesthetic, prepped and draped in a sterile fashion. Curvilinear incision was placed between his first and second toe at an area where the soft tissues were not viable. As the skin incision was made, purulent material drained. Dissection was carried down along the second metatarsal shaft and the second and third metatarsal shafts were transected and those 2 toes and distal metatarsals were removed. Additional metatarsal was removed with a rongeur. There was purulent drainage noted coming from both the dorsal and plantar surface of the first toe adjacent to the metatarsophalangeal joint. Because there appeared to be soft tissue infection involving this tissue and there was only capsular tissue protecting the metatarsophalangeal joint, it was felt that removal of this segment of the forefoot, in addition to the second and third rays, would be appropriate. The incision was extended medially to incorporate the soft tissues surrounding the first metatarsophalangeal joint and the soft tissues were divided with electrocautery. The metatarsal shaft was transected with a bone cutter and additional healthy proximal metatarsal was removed with a rongeur. The sesamoid bone was also excised. Hemostasis achieved with electrocautery. The wound was then dressed with sterile saline gauze, covered with Xeroform gauze, 4 x 4s, Kerlix and an Kaushal wrap. The patient tolerated the procedure well and moved from the operating room to recovery in satisfactory stable condition. There was bleeding from the cut margins, but that was not pulsatile in nature. MO ALVAREZ MD DR: DUSTIN/roni JOB#: [id number] / [id number]
--- NOTE | 2018-11-28 11:26 | PDOC ---
PROGRESS NOTES Chief Complaint Chief Complaint RT 2nd and 3rd toe pain, fracture of rt 3rd toe RT foot infection history of recent fifth and fourth toe amputation sites with OM treated with IV meropenem, completed on 11/10/[address] with wound [address] in place. Fever esrd on hd H/O noncompliance End-stage renal disease, on hemodialysis. Diabetes mellitus with peripheral neuropathy. Peripheral vascular disease. 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 The patient is status post open fourth and fifth ray amputation. DESCRIPTION OF PROCEDURE: The patient was given general anesthetic, prepped and draped in sterile fashion. Elliptical incision was utilized to encompass the base of the second and third toe. Soft tissue divided sharply. The bones were transected proximal to the metatarsophalangeal joint and the digits of metatarsal heads were removed. There was purulent material which transitions over towards the first metatarsophalangeal joint, involving the soft tissues, both on the dorsal aspect and plantar aspect of this foot. Because of the extension of the soft tissue infection, it was felt that first metatarsal head needed to be resected as well. He already had previous digit tip amputation. The incision was then extended medially, encompassing the first metatarsophalangeal joint. The metatarsal shaft was transected. The sesamoid bone was removed. Hemostasis achieved with cautery. Additional proximal portions of the second and third metatarsal shafts were removed with a rongeur as well as portions of the first metatarsal shaft. History of Present Illness History of Present Illness 53 year old with hx of Noncompliance, ESRD, on dialysis, AFib, anxiety, asthma , coronary artery disease, CHF, stroke, diabetes, GERD, hypertension, hyperlipidemia, myocardial infarction, TIA, peripheral vascular disease, morbid obesity, left arm fistula, right fourth and fifth toe amputations, left below the knee amputation, scrotal surgery, cardiac stents recent admission in Sep for volume overload for missed HD who presents to the ED with 4 day hx of cough sob, and fever of 103. patient missed HD sessions. patient in wound clinic 11/25 for dressing changes and found to have fever so sent directly to ED for further evaluation. fever of 102 in ED. BP stable, normal lactate. cultures drawn and concern for infiltrate in lung. started on Vanc and Levaquin and admitted to ED. feels better today Plan: continue abx 2 and 3rd toe amputation today wound care following dialysis per nephro 11/28 44 min pt exam, chart review , pt exam, > 50% of time spent with exam, chart review, pt care coordination Vitals Vitals Vital Signs Date Time Temp Pulse Resp B/P (MAP) Pulse Ox O2 Delivery O2 Flow Rate FiO2 11/28/18 10:30 98.4 87 27 104/84 97 98.4 11/28/18 10:15 Simple Mask 2 Physical Exam Physical Exam GENERAL: Alert, oriented x 3 male lying in bed comfortably, eating, in no acute distress. HEENT: Normocephalic, atraumatic, anicteric. No thrush. Oral mucosa moist. NECK: Supple, no JVD. LUNGS: Clear bilaterally. HEART: S1, S2. ABDOMEN: Soft, obese. Bowel sounds present. EXTREMITIES: Left BKA stump covered, trace edema. Right lower extremity dressing taken down, there is lateral wound with some foul odor over the previous fourth and fifth amputation sites, large wound. There is swelling of the second and the third toes, plantar aspect with necrosis. Edema present, dorsum has some swelling, redness, erythema. Unable to feel dorsalis pedis. DERMATOLOGIC: Warm without generalized rash. NEUROLOGIC: Alert and oriented x 3. LINES: PIV looks okay. Shunt, left upper extremity looks. General: Alert, Oriented X3, Cooperative, No acute distress, mild distress Heart: Other (Bilateral femoral pulses 2+, right DP and PT pulses biphasic, strong on doppler. ) Lungs: Clear Abdomen: Normal bowel sounds, Soft Extremities: Other (Right foot edema to ankle. Lateral foot wound with purulent drainage throughout. Sloughed tissue on plantar surface of wound. Blister removed on plantar surface of foot below 2nd and 3rd toes, dark tissue underneath. Mild fluctuance throughout, no sinus tracts noted. Left BKA completely healed. Prior right 1st toe amputation healed. ) Skin: Other (Right 2nd MTP joint swollen) Labs LABS Examination: FOOT RIGHT 3V History: WOUND ON RIGHT FOOT RECENT TOE REMOVAL SURGERY Comparison/Correlation: 09/13/2018 right foot 3 view x-ray exam Findings: Total 3 images of the right foot were obtained. Vascular calcifications noted. Amputation of the great toe distal phalanx in the distal aspect of the proximal phalanx is noted. Amputation of the fourth and fifth digits noted. Amputation of nearly the entire fourth metatarsal bone from the proximal shaft level distally is noted. Amputation of the fifth metatarsal bone from the proximal metaphyseal level noted. Soft tissue wound in this distribution noted. Soft tissue gas in this distribution is suspected. Surrounding bandages noted. Third digit proximal phalangeal midshaft fracture deformity is present with plantar angulation. Small calcaneal spur is present. Spurring along the dorsal talonavicular joint noted. Impression: Third digit proximal phalangeal fracture is new since the prior exam. Interval amputations of the fourth and fifth digits as well as much of the metatarsal bones. Surrounding soft tissue gas may relate to recent surgical intervention. Correlate with history in determining further evaluation if osteomyelitis is a concern. Electronically signed by: Mil Bautista MD (11/25/2018 1:59 PM) [id number] DICTATED and SIGNED BY: MIL BAUTISTA MD DATE: 11/25/18 1359 Laboratory Tests Test 11/27/18 11:35 11/27/18 16:28 11/27/18 20:45 11/28/18 07:34 Glucose (Fingerstick) 148 mg/dL (70-99) 148 mg/dL (70-99) 145 mg/dL (70-99) 116 mg/dL (70-99) Test 11/28/18 10:23 Glucose (Fingerstick) 113 mg/dL (70-99) Assessment and Plan Assessmemt and Plan Problems Medical Problems: (1) Acute respiratory distress Status: Acute (2) Diabetic infection of right foot Status: Acute (3) Fever Status: Acute (4) HCAP (healthcare-associated pneumonia) Status: Acute (5) History of left below knee amputation Status: Acute (6) Sepsis Status: Acute (7) Symptomatic anemia Status: Acute (8) Toe fracture, right Status: Acute Comment Review of Relevant I have reviewed the following items lila (where applicable) has been applied. Labs Laboratory Tests Test 11/26/18 11:58 11/26/18 20:35 11/27/18 06:05 11/27/18 07:30 Glucose (Fingerstick) 129 mg/dL (70-99) 142 mg/dL (70-99) 140 mg/dL (70-99) White Blood Count 15.8 x10^3/uL (4.0-11.0) Red Blood Count 2.82 x10^6/uL (4.30-5.70) Hemoglobin 7.9 g/dL (13.0-17.5) Hematocrit 24.9 % (39.0-53.0) Mean Corpuscular Volume 88 fL (79-100) Mean Corpuscular Hemoglobin 28 pg (25-35) Mean Corpuscular Hemoglobin Concent 32 g/dL (31-37) Red Cell Distribution Width 16.6 % (11.5-14.5) Platelet Count 235 x10^3/uL (140-400) Neutrophils (%) (Auto) 80 % (31-73) Lymphocytes (%) (Auto) 6 % (24-48) Monocytes (%) (Auto) 13 % (0-9) Eosinophils (%) (Auto) 1 % (0-3) Basophils (%) (Auto) 1 % (0-3) Neutrophils # (Auto) 12.6 x10^3uL (1.8-7.7) Lymphocytes # (Auto) 0.9 x10^3/uL (1.0-4.8) Monocytes # (Auto) 2.0 x10^3/uL (0.0-1.1) Eosinophils # (Auto) 0.1 x10^3/uL (0.0-0.7) Basophils # (Auto) 0.1 x10^3/uL (0.0-0.2) Prothrombin Time 16.5 SEC (11.7-14.0) Prothromb Time International Ratio 1.4 (0.8-1.1) Random Vancomycin Level 18.5 mcg/mL Test 11/27/18 11:35 11/27/18 16:28 11/27/18 20:45 11/28/18 07:34 Glucose (Fingerstick) 148 mg/dL (70-99) 148 mg/dL (70-99) 145 mg/dL (70-99) 116 mg/dL (70-99) Test 11/28/18 10:23 Glucose (Fingerstick) 113 mg/dL (70-99) Laboratory Tests Test 11/27/18 11:35 11/27/18 16:28 11/27/18 20:45 11/28/18 07:34 Glucose (Fingerstick) 148 mg/dL (70-99) 148 mg/dL (70-99) 145 mg/dL (70-99) 116 mg/dL (70-99) Test 11/28/18 10:23 Glucose (Fingerstick) 113 mg/dL (70-99) Microbiology 11/25/18 Blood Culture - Preliminary, Resulted NO GROWTH AFTER 2 DAYS Medications Current Medications Acetaminophen (Tylenol) 1,000 mg 1X ONCE PO Last administered on 11/25/18 14: 04; Start 11/25/18 at 12:45; Stop 11/25/18 at 12:48; Status DC Sodium Chloride 500 ml @ 500 mls/hr 1X ONCE IV Last administered on 14:00; Start 11/25/18 at 12:45; Stop 11/25/18 at 13:44; Status DC Sodium Chloride 1,000 ml @ 1,000 mls/hr 1X ONCE IV Last administered on at 14:39; Start 11/25/18 at 14:30; Stop 11/25/18 at 15:29; Status DC Albuterol/ Ipratropium (Duoneb) 3 ml 1X ONCE NEB Last administered on at 14:30; Start 11/25/18 at 14:30; Stop 11/25/18 at 14:31; Status DC Vancomycin HCl 2 gm/Sodium Chloride 500 ml @ 250 mls/hr 1X ONCE IV Last administered on 11/25/18 14:30; Start 11/25/18 at 14:30; Stop 11/25/18 at 16:29 ; Status DC Levofloxacin/ Dextrose 150 ml @ 100 mls/hr 1X ONCE IV Last administered on at 14:39; Start 11/25/18 at 14:30; Stop 11/25/18 at 15:59; Status DC Acetaminophen/ Hydrocodone Bitart (Lortab 7.5/325) 1 tab PRN Q4HRS PRN PO PAIN Last administered on 11/27/18at 22:32; Start 11/25/18 at 17:15 Sodium Chloride (Normal Saline Flush) 3 ml QSHIFT PRN IV AFTER MEDS AND BLOOD DRAWS; Start 11/25/18 at 17:30 Vancomycin HCl (Vanco Per Pharmacy) 1 each PRN DAILY PRN MC SEE COMMENTS Last administered on 11/27/18at 12:32; Start 11/25/18 at 17:30 Levofloxacin/ Dextrose (Levaquin Per Pharmacy) 1 each PRN DAILY PRN MC SEE COMMENTS; Start 11/25/18 at 17:30; Stop 11/26/18 at 09:31; Status DC Levofloxacin/ Dextrose 100 ml @ 100 mls/hr Q48H IV ; Start 11/27/18 at 14:00; Stop 11/27/18 at 14:00; Status DC Heparin Sodium (Porcine) (Heparin Sodium) 5,000 unit Q8HRS SQ Last administered on 11/27/18at 13:36; Start 11/25/18 at 22:00 Acetaminophen (Tylenol) 650 mg PRN Q6HRS PRN PO FEVER Last administered on 11/28at 04:45; Start 11/25/18 at 17:45 Aspirin ([place] Aspirin) 325 mg DAILY PO Last administered on 11/26/18 08:01; Start 11/26/18 at 09:00 Calcium Carbonate/ Glycine (Oscal) 500 mg BID PO Last administered on 20:25; Start 11/25/18 at 21:00 Carvedilol (Coreg) 3.125 mg BIDWMEALS PO Last administered on 11/27/18 17:28; Start 11/25/18 at 18:30 Clopidogrel Bisulfate (Plavix) 75 mg DAILY PO Last administered on 11/26/18 08 :01; Start 11/26/18 at 09:00 Famotidine (Pepcid) 20 mg HS PO Last administered on 11/25/18 20:34; Start at 21:00; Stop 11/26/18 at 08:53; Status DC Isosorbide Mononitrate (Imdur) 30 mg DAILY PO Last administered on 11/27/18 12 :05; Start 11/26/18 at 09:00 Levothyroxine Sodium (Synthroid) 175 mcg DAILYAC PO Last administered on 08:30; Start 11/26/18 at 07:30 Oxycodone/ Acetaminophen (Percocet 10/325) 1 tab QID PO Last administered on 13:29; Start 11/25/18 at 21:00 Zolpidem Tartrate (Ambien) 5 mg QHS PO Last administered on 4/16/19at 20:53; Start 11/25/18 at 21:00 Albuterol Sulfate (Ventolin Neb Soln) 2.5 mg PRN Q6HRS PRN NEB SHORTNESS OF BREATH; Start 11/25/18 at 17:45 Atorvastatin Calcium (Lipitor) 40 mg QHS PO Last administered on 11/27/18at 20: 25; Start 11/25/18 at 21:00 Non-Formulary Medication (Fluticasone Propionate (Flovent 110MCG Hfa)) 2 puff BID IH ; Start 11/25/18 at 21:00; Status UNV Levetiracetam (Keppra) 1,000 mg BID PO Last administered on 11/27/18 20:25; Start 11/25/18 at 21:00 Magnesium Oxide (Magnesium Oxide) 400 mg DAILY PO Last administered on at 12:06; Start 11/26/18 at 09:00 Pramipexole Dihydrochloride (miraPEX) 0.25 mg DAILY PO Last administered on at 08:31; Start 11/26/18 at 09:00 Budesonide (Pulmicort) 0.5 mg RTBID NEB Last administered on 11/27/18at 19:27; Start 11/25/18 at 20:00 Vancomycin HCl (Vancomycin Random Level) 1 each 1X ONCE MC Last administered on 11/27/18at 06:00; Start 11/27/18 at 06:00; Stop 11/27/18 at 06:01; Status DC Midazolam HCl (Versed) 5 mg STK-MED ONCE .ROUTE ; Start 11/25/18 at 17:58; Stop 11/25/18 at 17:59; Status DC Lactobacillus Rhamnosus (Culturelle) 1 cap BID PO Last administered on at 20:25; Start 11/26/18 at 09:00 Midazolam HCl (Versed) 5 mg STK-MED ONCE .ROUTE ; Start 11/25/18 at 18:00; Stop 11/26/18 at 07:42; Status DC Famotidine (Pepcid) 20 mg Q48H PO Last administered on 11/27/18at 20:25; Start 11/27/18 at 21:00 Meropenem 500 mg/ Sodium Chloride 50 ml @ 100 mls/hr DAILY IV Last administered on 11/28/18at 09:28; Start 11/26/18 at 10:00 Sodium Chloride 1,000 ml @ 1,000 mls/hr Q1H PRN IV hypotension; Start 11/26/18 at 14:13; Stop 11/26/18 at 20:12; Status DC Albumin Human 200 ml @ 200 mls/hr 1X PRN PRN IV Hypotension; Start 11/26/18 at 14:15; Stop 11/26/18 at 20:14; Status DC Acetaminophen (Tylenol) 500 mg 1X PRN PRN PO MILD PAIN / TEMP; Start 11/26/18 at 14:15; Stop 11/27/18 at 14:14; Status DC Diphenhydramine HCl (Benadryl) 25 mg 1X PRN PRN IV ITCHING; Start 11/26/18 at 14:15; Stop 11/27/18 at 14:14; Status DC Diphenhydramine HCl (Benadryl) 25 mg 1X PRN PRN IV ITCHING; Start 11/26/18 at 14:15; Stop 11/27/18 at 14:14; Status DC Sodium Chloride 1,000 ml @ 400 mls/hr Q2H30M PRN IV PATENCY; Start 11/26/18 at 14:13; Stop 11/27/18 at 02:12; Status DC Info (PHARMACY MONITORING -- do not chart) 1 each PRN DAILY PRN MC SEE COMMENTS ; Start 11/26/18 at 14:15 Multivitamins (Thera M Plus) 1 tab DAILY PO Last administered on 11/27/18at 12: 05; Start 11/27/18 at 09:00 Darbepoetin Jace (Aranesp) 100 mcg WEEKLYHS SQ Last administered on 11/26/18at 20:53; Start 11/26/18 at 21:00 Lidocaine HCl 48 ml/Sodium Bicarbonate 12 meq/Miscellaneous 60 ml @ 60 mls/hr 1X ONCE ID ; Start 11/28/18 at 06:00; Stop 11/28/18 at 06:59; Status DC Ondansetron HCl (Zofran) 4 mg PRN Q6HRS PRN IV NAUSEA/VOMITING; Start 11/28/18 at 07:00; Stop 11/28/18 at 20:00 Fentanyl Citrate (Fentanyl 2ml Vial) 25 mcg PRN Q5MIN PRN IV MILD PAIN; Start 11/28/18 at 07:00; Stop 11/28/18 at 20:00 Fentanyl Citrate (Fentanyl 2ml Vial) 50 mcg PRN Q5MIN PRN IV MODERATE TO SEVERE PAIN Last administered on 11/28/18at 10:14; Start 11/28/18 at 07:00; Stop 11/28/18 at 20:00 Morphine Sulfate (Morphine Sulfate) 1 mg PRN Q10MIN PRN IV SEVERE PAIN; Start 11/28/18 at 07:00; Stop 11/28/18 at 20:00 Ringer's Solution 1,000 ml @ 30 mls/hr Q24H IV ; Start 11/28/18 at 07:00; Stop 11/28/18 at 18:59 Lidocaine HCl (Xylocaine-Mpf 1% 2ml Vial) 2 ml PRN 1X PRN ID PRIOR TO IV START ; Start 11/28/18 at 07:00; Stop 11/28/18 at 20:00 Hydromorphone HCl (Dilaudid) 0.5 mg PRN Q10MIN PRN IV SEV PAIN, Second choice; Start 11/28/18 at 07:00; Stop 11/28/18 at 20:00 Prochlorperazine Edisylate (Compazine) 5 mg PACU PRN PRN IV NAUSEA, MRX1; Start 11/28/18 at 07:00; Stop 11/28/18 at 20:00 Vancomycin HCl 500 mg/Sodium Chloride 100 ml @ 100 mls/hr 1X ONCE IV Last administered on 11/27/18at 13:29; Start 11/27/18 at 13:00; Stop 11/27/18 at 13:59 ; Status DC Vancomycin HCl 500 mg/Sodium Chloride 100 ml @ 100 mls/hr QTUTHSA IV ; Start at 16:00 Sodium Chloride 1,000 ml @ 1,000 mls/hr Q1H PRN IV hypotension; Start 11/28/18 at 07:04; Stop 11/28/18 at 13:03 Albumin Human 200 ml @ 200 mls/hr 1X PRN PRN IV Hypotension; Start 11/28/18 at 07:15; Stop 11/28/18 at 13:14 Acetaminophen (Tylenol) 500 mg 1X PRN PRN PO MILD PAIN / TEMP; Start 11/28/18 at 07:15; Stop 11/29/18 at 07:14 Diphenhydramine HCl (Benadryl) 25 mg 1X PRN PRN IV ITCHING; Start 11/28/18 at 07:15; Stop 11/29/18 at 07:14 Diphenhydramine HCl (Benadryl) 25 mg 1X PRN PRN IV ITCHING; Start 11/28/18 at 07:15; Stop 11/29/18 at 07:14 Sodium Chloride 1,000 ml @ 400 mls/hr Q2H30M PRN IV PATENCY; Start 11/28/18 at 07:04; Stop 11/28/18 at 19:03 Info (PHARMACY MONITORING -- do not chart) 1 each PRN DAILY PRN MC SEE COMMENTS ; Start 11/28/18 at 07:15 Propofol 20 ml @ As Directed STK-MED ONCE IV ; Start 11/28/18 at 08:23; Stop at 08:24; Status DC Lidocaine HCl (Lidocaine Pf 2% Vial) 5 ml STK-MED ONCE .ROUTE ; Start 11/28/18 at 08:23; Stop 11/28/18 at 08:24; Status DC Phenylephrine HCl (PHENYLEPHRINE in 0.9% NACL PF) 1 mg STK-MED ONCE IV ; Start 11/28/18 at 08:23; Stop 11/28/18 at 08:24; Status DC Dexamethasone Sodium Phosphate (Decadron) 20 mg STK-MED ONCE .ROUTE ; Start at 08:23; Stop 11/28/18 at 08:24; Status DC Famotidine (Pepcid Vial) 20 mg STK-MED ONCE .ROUTE ; Start 11/28/18 at 08:23; Stop 11/28/18 at 08:24; Status DC Ondansetron HCl (Zofran) 4 mg STK-MED ONCE .ROUTE ; Start 11/28/18 at 08:23; Stop 11/28/18 at 08:24; Status DC Silver Sulfadiazine (Silvadene) 25 ayaz STK-MED ONCE TP ; Start 11/28/18 at 07:36 ; Stop 11/28/18 at 08:37; Status DC Morphine Sulfate (Morphine Sulfate) 2 mg PRN Q2HR PRN IV MODERATE TO SEVERE PAIN; Start 11/28/18 at 09:15 Sevoflurane (Ultane) 30 ml STK-MED ONCE IH ; Start 11/28/18 at 09:41; Stop 11/28 at 09:42; Status DC Fentanyl Citrate (Fentanyl 2ml Vial) 100 mcg STK-MED ONCE .ROUTE ; Start at 10:12; Stop 11/28/18 at 10:13; Status DC Active Scripts Active Isosorbide Mononitrate Er (Isosorbide Mononitrate) 30 Mg Tab.er.24h 30 Mg PO DAILY 30 Days Reported Aspirin 325 Mg Tablet 1 Tab PO DAILY Coreg (Carvedilol) 3.125 Mg Tablet 3.125 Mg PO BIDWMEALS Magnesium (Magnesium Oxide) 400 Mg Capsule 400 Mg PO DAILY Levothyroxine Sodium 175 Mcg Tablet 175 Mcg PO DAILYAC Plavix (Clopidogrel Bisulfate) 75 Mg Tablet 75 Mg PO DAILY Calcium Carbonate 500 Mg Tablet 500 Mg PO BID Lipitor (Atorvastatin Calcium) 80 Mg Tablet 40 Mg PO HS Keppra (Levetiracetam) 1,000 Mg Tablet 1 Tab PO BID Endocet 10-325 Mg Tablet (Oxycodone Hcl/Acetaminophen) 1 Each Tablet 1 Tab PO QID Flovent 110MCG Hfa (Fluticasone Propionate) 12 Gm Aer.w.adap 2 Puff IH BID Zolpidem Tartrate 5 Mg Tablet 1 Tab PO QHS Mirapex (Pramipexole Di-Hcl) 0.25 Mg Tablet 1 Tab PO DAILY Tylenol (Acetaminophen) 325 Mg Tablet 650 Mg PO PRN Q6HRS PRN Famotidine 20 Mg Tablet 20 Mg PO HS Ventolin Hfa Inhaler (Albuterol Sulfate) 18 Gm Hfa.aer.ad 1 Puff INH Q6HRS PRN Vitals/I & O Vital Sign - Last 24 Hours 11/27/18 11/27/18 11/27/18 11/27/18 11:42 12:05 12:06 13:29 Temp 98.7 98.7 Pulse 90 90 90 B/P (MAP) 117/53 (74) 117/53 117/53 Pulse Ox 99 O2 Delivery Room Air Room Air O2 Flow Rate 2.0 4/17/19 4/17/19 4/17/19 4/17/19 14:30 15:00 17:28 19:28 Temp 97.4 97.4 Pulse 92 91 Resp 18 B/P (MAP) 120/55 (76) 140/56 Pulse Ox 93 95 O2 Delivery Room Air Room Air Room Air O2 Flow Rate 2.0 11/27/18 11/27/18 11/27/18 11/27/18 19:40 19:55 22:32 23:00 Temp 99.4 99.5 99.4 99.5 Pulse 89 66 Resp 18 18 B/P (MAP) 133/67 (89) 115/55 (75) Pulse Ox 95 93 O2 Delivery Room Air Room Air Room Air Room Air 11/27/18 11/28/18 11/28/18 11/28/18 23:24 03:00 07:30 08:32 Temp 100.3 99.6 99.6 100.3 99.6 99.6 Pulse 102 87 87 Resp 18 18 20 B/P (MAP) 126/73 (90) 110/55 110/55 (73) Pulse Ox 93 95 95 O2 Delivery Room Air Room Air Room Air Room Air O2 Flow Rate 2.0 11/28/18 11/28/18 11/28/18 11/28/18 09:56 09:56 10:14 10:15 Temp 98.0 98.0 98.0 98.0 Pulse 91 86 Resp 20 14 13 B/P (MAP) 124/62 108/50 Pulse Ox 100 98 97 O2 Delivery Nasal Cannula Nasal Cannula Simple Mask Simple Mask O2 Flow Rate 6 6 2.0 2 11/28/18 10:30 Temp 98.4 98.4 Pulse 87 Resp 27 B/P (MAP) 104/84 Pulse Ox 97 Intake and Output 11/27/18 11/27/18 11/28/18 14:59 22:59 06:59 Intake Total 120 ml 260 ml Output Total 1 ml 150 ml Balance 119 ml 110 ml NICHOLE THORNTON MD Nov 28, 2018 11:26
--- NOTE | 2018-11-28 11:27 | PDOC ---
SUBJECTIVE ROS S/P Surgery OBJECTIVE Vital Signs Vital Signs Date Time Temp Pulse Resp B/P (MAP) Pulse Ox O2 Delivery O2 Flow Rate FiO2 11/28/18 10:30 98.4 87 27 104/84 97 98.4 11/28/18 10:15 Simple Mask 2 I & 0 Intake and Output 11/28/18 07:00 Intake Total 380 ml Output Total 151 ml Balance 229 ml Intake Oral 380 ml Output Urine Total 151 ml PHYSICAL EXAM Physical Exam GENERAL: NAD HEENT: Head normocephalic, atraumatic. NECK: Supple LUNGS: Clear to auscultation. HEART: RRR, S1, S2 present ABDOMEN: Soft, Obese EXTREMITIES: No cyanosis or edema. 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 S/p Right 2nd and 3rd toe amputation, open, Right first metatarsal partial resection and right lateral foot debridement this am On Abx, Followed by ID and Vascular Acute Hypoxic Resp Failure secondary to HCAP, prob GN bacteria CT chest done Diastolic heart failure. Coronary artery disease Stable History of atrial fibrillation. Rate controlled. Continue medications. TIA history. Peripheral arterial disease. Status post left BKA. HTN- BP stable Anemia- KEITH as ordered COMMENT/RELEVANT DATA Meds Current Medications Medications (Trade) Dose Ordered Sig/[place] Start Time Stop Time Status Last Admin Dose Admin Acetaminophen (Tylenol) 500 mg 1X PRN PRN 11/28/18 07:15 11/29/18 07:14 Acetaminophen/ Hydrocodone Bitart (Lortab 7.5/325) 1 tab PRN Q4HRS PRN 11/25/18 17:15 11/27/18 22:32 1 TAB Albumin Human 200 ml @ 200 mls/hr 1X PRN PRN 11/28/18 07:15 11/28/18 13:14 Albuterol Sulfate (Ventolin Neb Soln) 2.5 mg PRN Q6HRS PRN 11/25/18 17:45 Albuterol/ Ipratropium (Duoneb) 3 ml 1X ONCE 11/25/18 14:30 11/25/18 14:31 DC 11/25/18 14:30 3 ML Aspirin ([place] Aspirin) 325 mg DAILY 11/26/18 09:00 11/26/18 08:01 325 MG Atorvastatin Calcium (Lipitor) 40 mg QHS 11/25/18 21:00 11/27/18 20:25 40 MG Budesonide (Pulmicort) 0.5 mg RTBID 11/25/18 20:00 11/27/18 19:27 0.5 MG Calcium Carbonate/ Glycine (Oscal) 500 mg BID 11/25/18 21:00 11/27/18 20:25 500 MG Carvedilol (Coreg) 3.125 mg BIDWMEALS 11/25/18 18:30 11/27/18 17:28 3.125 MG Clopidogrel Bisulfate (Plavix) 75 mg DAILY 11/26/18 09:00 11/26/18 08:01 75 MG Darbepoetin Jace (Aranesp) 100 mcg WEEKLYHS 11/26/18 21:00 11/26/18 20:53 100 MCG Dexamethasone Sodium Phosphate (Decadron) 20 mg STK-MED ONCE 11/28/18 08:23 11/28/18 08:24 DC Diphenhydramine HCl (Benadryl) 25 mg 1X PRN PRN 11/28/18 07:15 11/29/18 07:14 Famotidine (Pepcid Vial) 20 mg STK-MED ONCE 11/28/18 08:23 11/28/18 08:24 DC Famotidine (Pepcid) 20 mg Q48H 11/27/18 21:00 11/27/18 20:25 20 MG Fentanyl Citrate (Fentanyl 2ml Vial) 100 mcg STK-MED ONCE 11/28/18 10:12 11/28/18 10:13 DC Heparin Sodium (Porcine) (Heparin Sodium) 5,000 unit Q8HRS 11/25/18 22:00 11/27/18 13:36 5,000 UNIT Hydromorphone HCl (Dilaudid) 0.5 mg PRN Q10MIN PRN 11/28/18 07:00 11/28/18 20:00 Info (PHARMACY MONITORING -- do not chart) 1 each PRN DAILY PRN 11/28/18 07:15 Isosorbide Mononitrate (Imdur) 30 mg DAILY 11/26/18 09:00 11/27/18 12:05 30 MG Lactobacillus Rhamnosus (Culturelle) 1 cap BID 11/26/18 09:00 11/27/18 20:25 1 CAP Levetiracetam (Keppra) 1,000 mg BID 11/25/18 21:00 11/27/18 20:25 1,000 MG Levofloxacin/ Dextrose 100 ml @ 100 mls/hr Q48H 11/27/18 14:00 11/27/18 14:00 DC Levofloxacin/ Dextrose (Levaquin Per Pharmacy) 1 each PRN DAILY PRN 11/25/18 17:30 11/26/18 09:31 DC Levothyroxine Sodium (Synthroid) 175 mcg DAILYAC 11/26/18 07:30 11/27/18 08:30 175 MCG Lidocaine HCl (Lidocaine Pf 2% Vial) 5 ml STK-MED ONCE 11/28/18 08:23 11/28/18 08:24 DC Lidocaine HCl (Xylocaine-Mpf 1% 2ml Vial) 2 ml PRN 1X PRN 11/28/18 07:00 11/28/18 20:00 Lidocaine HCl 48 ml/Sodium Bicarbonate 12 meq/Miscellaneous 60 ml @ 60 mls/hr 1X ONCE 11/28/18 06:00 11/28/18 06:59 DC Magnesium Oxide (Magnesium Oxide) 400 mg DAILY 11/26/18 09:00 11/27/18 12:06 400 MG Meropenem 500 mg/ Sodium Chloride 50 ml @ 100 mls/hr DAILY 11/26/18 10:00 11/28/18 09:28 100 MLS/HR Midazolam HCl (Versed) 5 mg STK-MED ONCE 11/25/18 18:00 11/26/18 07:42 DC Morphine Sulfate (Morphine Sulfate) 2 mg PRN Q2HR PRN 11/28/18 09:15 Multivitamins (Thera M Plus) 1 tab DAILY 11/27/18 09:00 11/27/18 12:05 1 TAB Non-Formulary Medication (Fluticasone Propionate (Flovent 110MCG Hfa)) 2 puff BID 11/25/18 21:00 UNV Ondansetron HCl (Zofran) 4 mg STK-MED ONCE 11/28/18 08:23 11/28/18 08:24 DC Oxycodone/ Acetaminophen (Percocet 10/325) 1 tab QID 11/25/18 21:00 11/27/18 13:29 1 TAB Phenylephrine HCl (PHENYLEPHRINE in 0.9% NACL PF) 1 mg STK-MED ONCE 11/28/18 08:23 11/28/18 08:24 DC Pramipexole Dihydrochloride (miraPEX) 0.25 mg DAILY 11/26/18 09:00 11/27/18 08:31 0.25 MG Prochlorperazine Edisylate (Compazine) 5 mg PACU PRN PRN 11/28/18 07:00 11/28/18 20:00 Propofol 20 ml @ As Directed STK-MED ONCE 11/28/18 08:23 11/28/18 08:24 DC Ringer's Solution 1,000 ml @ 30 mls/hr Q24H 11/28/18 07:00 11/28/18 18:59 Sevoflurane (Ultane) 30 ml STK-MED ONCE 11/28/18 09:41 11/28/18 09:42 DC Silver Sulfadiazine (Silvadene) 25 ayaz STK-MED ONCE 11/28/18 07:36 11/28/18 08:37 DC Sodium Chloride 1,000 ml @ 400 mls/hr Q2H30M PRN 11/28/18 07:04 11/28/18 19:03 Sodium Chloride (Normal Saline Flush) 3 ml QSHIFT PRN 11/25/18 17:30 Vancomycin HCl (Vanco Per Pharmacy) 1 each PRN DAILY PRN 11/25/18 17:30 11/27/18 12:32 1 EACH Vancomycin HCl (Vancomycin Random Level) 1 each 1X ONCE 11/27/18 06:00 11/27/18 06:01 DC 11/27/18 06:00 1 EACH Vancomycin HCl 500 mg/Sodium Chloride 100 ml @ 100 mls/hr QTUTHSA 11/28/18 16:00 Vancomycin HCl 2 gm/Sodium Chloride 500 ml @ 250 mls/hr 1X ONCE 11/25/18 14:30 11/25/18 16:29 DC 11/25/18 14:30 250 MLS/HR Zolpidem Tartrate (Ambien) 5 mg QHS 11/25/18 21:00 11/26/18 20:53 5 MG Lab Laboratory Tests Test 11/27/18 11:35 11/27/18 16:28 11/27/18 20:45 11/28/18 07:34 Glucose (Fingerstick) 148 mg/dL (70-99) 148 mg/dL (70-99) 145 mg/dL (70-99) 116 mg/dL (70-99) Test 11/28/18 10:23 Glucose (Fingerstick) 113 mg/dL (70-99) Results All relevant outside records, renal labs, imaging studies, telemetry/EKG's were reviewed. MINA RICHARDSON MD Nov 28, 2018 11:27
--- NOTE | 2018-11-28 13:15 | OP ---
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 The patient is status post open fourth and fifth ray amputation. DESCRIPTION OF PROCEDURE: The patient was given general anesthetic, prepped and draped in sterile fashion. Elliptical incision was utilized to encompass the base of the second and third toe. Soft tissue divided sharply. The bones were transected proximal to the metatarsophalangeal joint and the digits of metatarsal heads were removed. There was purulent material which transitions over towards the first metatarsophalangeal joint, involving the soft tissues, both on the dorsal aspect and plantar aspect of this foot. Because of the extension of the soft tissue infection, it was felt that first metatarsal head needed to be resected as well. He already had previous digit tip amputation. The incision was then extended medially, encompassing the first metatarsophalangeal joint. The metatarsal shaft was transected. The sesamoid bone was removed. Hemostasis achieved with cautery. Additional proximal portions of the second and third metatarsal shafts were removed with a rongeur as well as portions of the first metatarsal shaft. Hemostasis appeared to be excellent. The wound was dressed with saline-soaked gauze sponges, Vaseline gauze, 4 x 4s, Kerlix, and a compression wrap. The patient moved from the operating room to recovery in satisfactory stable condition. Minimal blood loss. GARCÍA ST MD DR: DUSTIN/roni JOB#: [id number] / [id number]
[2018-11-28] MEDS: HEPARIN for SUB-Q USE 5,000 UNIT/ML VIAL. SQ SCH ×2 (14:00→21:27)
[2018-11-28] MEDS: VANCOMYCIN PER PHARMACY MC PRN (14:52)
[2018-11-28 15:00] VITALS: BP 119/51
[2018-11-28] MEDS: VANCOMYCIN 500 MG in IV NORMAL SALINE 100ML 100 ML IV SCH (16:18)
[2018-11-28 19:00] VITALS: BP 105/51
[2018-11-28] MEDS: ATORVASTATIN CALCIUM 40 MG TABLET. PO SCH (21:10)
[2018-11-28] MEDS: ZOLPIDEM 5 MG TABLET. PO SCH (21:12)
[2018-11-28 23:00] VITALS: BP 108/44
[2018-11-29 03:00] VITALS: BP 116/54
[2018-11-29] MEDS: LEVOTHYROXINE 175 MCG TABLET PO SCH (06:13)
[2018-11-29] MEDS: HEPARIN for SUB-Q USE 5,000 UNIT/ML VIAL. SQ SCH ×3 (06:17→21:25)
[2018-11-29 07:00] VITALS: BP 121/56
[2018-11-29] MEDS: BUDESONIDE 0.5 MG/2 ML NEBU. NEB SCH ×2 (07:12→20:16)
[2018-11-29] MEDS: PRAMIPEXOLE 0.25 MG TABLET. PO SCH (08:41)
[2018-11-29] MEDS: MULTIVITAMIN with MINERAL TABLET. PO SCH (08:42)
[2018-11-29] MEDS: CALCIUM CARBONATE 500 MG TABLET PO SCH ×2 (08:42→21:26)
[2018-11-29] MEDS: ISOSORBIDE MONONITRATE ER 30 MG TAB.ER.24H PO SCH (08:42)
[2018-11-29] MEDS: oxyCODONE/APAP 10/325 1 TAB TABLET PO SCH ×4 (08:42→21:31)
[2018-11-29] MEDS: levETIRAcetam 500 MG TABLET PO SCH ×2 (08:42→21:27)
[2018-11-29] MEDS: CARVEDILOL 3.125 MG TABLET. PO SCH ×2 (08:43→17:07)
[2018-11-29] MEDS: MAGNESIUM OXIDE 400 MG TABLET PO SCH (08:43)
[2018-11-29] MEDS: ASPIRIN 325 MG TABLET PO SCH (08:43)
[2018-11-29] MEDS: CLOPIDOGREL BISULFATE 75 MG TABLET PO SCH (08:43)
[2018-11-29] MEDS: LACTOBACILLUS RHAMNOSUS GG 1 CAPSULE. PO SCH ×2 (08:43→21:27)
[2018-11-29 08:52] LABS: ALBUMIN 2.2 g/dL (3.4-5.0); CALCIUM 9.5 mg/dL (8.5-10.1); CREATININE 6.8 mg/dL (0.7-1.3); GFR 10.4; PHOSPHORUS 5.3 mg/dL (2.6-4.7); POTASSIUM 4.5 mmol/L (3.5-5.1)
--- NOTE | 2018-11-29 09:17 | PDOC ---
Infectious Disease Note Subjective: Subjective Pt says feels ok postop pain is under control Rt Leg swelling is improving no f/c/n/v/d/sob D/W RN ROS: ROS Negative except for above. Vital Signs: Vital Signs Vital Signs Date Time Temp Pulse Resp B/P (MAP) Pulse Ox O2 Delivery O2 Flow Rate FiO2 11/29/18 08:43 72 121/56 11/29/18 08:42 Room Air 11/29/18 07:05 87 11/29/18 07:00 98.3 18 98.3 11/28/18 15:00 2.0 Physical Exam: PHYSICAL EXAM GENERAL: Alert, oriented x 3 male lying in bed comfortably, eating, in no acute distress. HEENT: Normocephalic, atraumatic, anicteric. No thrush. Oral mucosa moist. NECK: Supple, no JVD. LUNGS: Clear bilaterally. HEART: S1, S2. ABDOMEN: Soft, obese. Bowel sounds present. EXTREMITIES: Left BKA stump healed, RT foot dressing in place ,intact DERMATOLOGIC: Warm without generalized rash. NEUROLOGIC: Alert and oriented x 3. LINES: PIV looks okay. Shunt, left upper extremity looks. Medications: Inpatient Meds: Current Medications Medications (Trade) Dose Ordered Sig/[place] Start Time Stop Time Status Last Admin Dose Admin Acetaminophen (Tylenol) 500 mg 1X PRN PRN 11/28/18 07:15 11/29/18 07:14 DC Acetaminophen/ Hydrocodone Bitart (Lortab 7.5/325) 1 tab PRN Q4HRS PRN 11/25/18 17:15 11/27/18 22:32 1 TAB Albumin Human 200 ml @ 200 mls/hr 1X PRN PRN 11/28/18 07:15 11/28/18 13:14 DC Albuterol Sulfate (Ventolin Neb Soln) 2.5 mg PRN Q6HRS PRN 11/25/18 17:45 11/28/18 15:39 2.5 MG Albuterol/ Ipratropium (Duoneb) 3 ml 1X ONCE 11/25/18 14:30 11/25/18 14:31 DC 11/25/18 14:30 3 ML Aspirin ([place] Aspirin) 325 mg DAILY 11/26/18 09:00 11/29/18 08:43 325 MG Atorvastatin Calcium (Lipitor) 40 mg QHS 11/25/18 21:00 11/28/18 21:10 40 MG Budesonide (Pulmicort) 0.5 mg RTBID 11/25/18 20:00 11/29/18 07:12 0.5 MG Calcium Carbonate/ Glycine (Oscal) 500 mg BID 11/25/18 21:00 11/29/18 08:42 500 MG Carvedilol (Coreg) 3.125 mg BIDWMEALS 11/25/18 18:30 11/29/18 08:43 3.125 MG Clopidogrel Bisulfate (Plavix) 75 mg DAILY 11/26/18 09:00 11/29/18 08:43 75 MG Darbepoetin Jace (Aranesp) 100 mcg WEEKLYHS 11/26/18 21:00 11/26/18 20:53 100 MCG Dexamethasone Sodium Phosphate (Decadron) 20 mg STK-MED ONCE 11/28/18 08:23 11/28/18 08:24 DC Diphenhydramine HCl (Benadryl) 25 mg 1X PRN PRN 11/28/18 07:15 11/29/18 07:14 DC Famotidine (Pepcid Vial) 20 mg STK-MED ONCE 11/28/18 08:23 11/28/18 08:24 DC Famotidine (Pepcid) 20 mg Q48H 11/27/18 21:00 11/27/18 20:25 20 MG Fentanyl Citrate (Fentanyl 2ml Vial) 100 mcg STK-MED ONCE 11/28/18 10:12 11/28/18 10:13 DC Heparin Sodium (Porcine) (Heparin Sodium) 5,000 unit Q8HRS 11/25/18 22:00 11/29/18 06:17 5,000 UNIT Hydromorphone HCl (Dilaudid) 0.5 mg PRN Q10MIN PRN 11/28/18 07:00 11/28/18 20:00 DC Info (PHARMACY MONITORING -- do not chart) 1 each PRN DAILY PRN 11/28/18 07:15 Isosorbide Mononitrate (Imdur) 30 mg DAILY 11/26/18 09:00 11/29/18 08:42 30 MG Lactobacillus Rhamnosus (Culturelle) 1 cap BID 11/26/18 09:00 11/29/18 08:43 1 CAP Levetiracetam (Keppra) 1,000 mg BID 11/25/18 21:00 11/29/18 08:42 1,000 MG Levofloxacin/ Dextrose 100 ml @ 100 mls/hr Q48H 11/27/18 14:00 11/27/18 14:00 DC Levofloxacin/ Dextrose (Levaquin Per Pharmacy) 1 each PRN DAILY PRN 11/25/18 17:30 11/26/18 09:31 DC Levothyroxine Sodium (Synthroid) 175 mcg DAILYAC 11/26/18 07:30 11/29/18 06:13 175 MCG Lidocaine HCl (Lidocaine Pf 2% Vial) 5 ml STK-MED ONCE 11/28/18 08:23 11/28/18 08:24 DC Lidocaine HCl (Xylocaine-Mpf 1% 2ml Vial) 2 ml PRN 1X PRN 11/28/18 07:00 11/28/18 20:00 DC Lidocaine HCl 48 ml/Sodium Bicarbonate 12 meq/Miscellaneous 60 ml @ 60 mls/hr 1X ONCE 11/28/18 06:00 11/28/18 06:59 DC Magnesium Oxide (Magnesium Oxide) 400 mg DAILY 11/26/18 09:00 11/29/18 08:43 400 MG Meropenem 500 mg/ Sodium Chloride 50 ml @ 100 mls/hr DAILY 11/26/18 10:00 11/28/18 09:28 100 MLS/HR Midazolam HCl (Versed) 5 mg STK-MED ONCE 11/25/18 18:00 11/26/18 07:42 DC Morphine Sulfate (Morphine Sulfate) 2 mg PRN Q2HR PRN 11/28/18 09:15 Multivitamins (Thera M Plus) 1 tab DAILY 11/27/18 09:00 11/29/18 08:42 1 TAB Non-Formulary Medication (Fluticasone Propionate (Flovent 110MCG Hfa)) 2 puff BID 11/25/18 21:00 UNV Ondansetron HCl (Zofran) 4 mg STK-MED ONCE 11/28/18 08:23 11/28/18 08:24 DC Oxycodone/ Acetaminophen (Percocet 10/325) 1 tab QID 11/25/18 21:00 11/29/18 08:42 1 TAB Phenylephrine HCl (PHENYLEPHRINE in 0.9% NACL PF) 1 mg STK-MED ONCE 11/28/18 08:23 11/28/18 08:24 DC Pramipexole Dihydrochloride (miraPEX) 0.25 mg DAILY 11/26/18 09:00 11/29/18 08:41 0.25 MG Prochlorperazine Edisylate (Compazine) 5 mg PACU PRN PRN 11/28/18 07:00 11/28/18 20:00 DC Propofol 20 ml @ As Directed STK-MED ONCE 11/28/18 08:23 11/28/18 08:24 DC Ringer's Solution 1,000 ml @ 30 mls/hr Q24H 11/28/18 07:00 11/28/18 18:59 DC Sevoflurane (Ultane) 30 ml STK-MED ONCE 11/28/18 09:41 11/28/18 09:42 DC Silver Sulfadiazine (Silvadene) 25 ayaz STK-MED ONCE 11/28/18 07:36 11/28/18 08:37 DC Sodium Chloride 1,000 ml @ 400 mls/hr Q2H30M PRN 11/28/18 07:04 11/28/18 19:03 DC Sodium Chloride (Normal Saline Flush) 3 ml QSHIFT PRN 11/25/18 17:30 Vancomycin HCl (Vanco Per Pharmacy) 1 each PRN DAILY PRN 11/25/18 17:30 11/28/18 14:52 1 EACH Vancomycin HCl (Vancomycin Random Level) 1 each 1X ONCE 11/27/18 06:00 11/27/18 06:01 DC 11/27/18 06:00 1 EACH Vancomycin HCl 500 mg/Sodium Chloride 100 ml @ 100 mls/hr QTUTHSA 11/28/18 16:00 11/28/18 16:18 100 MLS/HR Vancomycin HCl 2 gm/Sodium Chloride 500 ml @ 250 mls/hr 1X ONCE 11/25/18 14:30 11/25/18 16:29 DC 11/25/18 14:30 250 MLS/HR Zolpidem Tartrate (Ambien) 5 mg QHS 11/25/18 21:00 11/28/18 21:12 5 MG Labs: Lab Laboratory Tests Test 11/28/18 10:23 11/28/18 16:18 11/28/18 20:49 11/29/18 07:11 Glucose (Fingerstick) 113 mg/dL (70-99) 169 mg/dL (70-99) 214 mg/dL (70-99) Sodium Level 136 mmol/L (136-145) Potassium Level 4.5 mmol/L (3.5-5.1) Chloride Level 98 mmol/L (98-107) Carbon Dioxide Level 29 mmol/L (21-32) Anion Gap 9 (6-14) Blood Urea Nitrogen 37 mg/dL (8-26) Creatinine 6.8 mg/dL (0.7-1.3) Estimated GFR (Cockcroft-Gault) 10.4 Glucose Level 174 mg/dL (70-99) Calcium Level 9.5 mg/dL (8.5-10.1) Phosphorus Level 5.3 mg/dL (2.6-4.7) Albumin 2.2 g/dL (3.4-5.0) Test 11/29/18 07:54 Glucose (Fingerstick) 165 mg/dL (70-99) Objective: Assessment: 1. Right foot infection with 2nd and 3rd toe infection with necrosis s/p surgery RLE Cellulitis 2. history of recent fifth and fourth toe amputation sites with osteomyelitis with deep tissue infection with cultures positive for Peptostreptococcus and Veillonella, treated with IV meropenem, which he completed on 11/10/[address]AC in place. 3. Fever. 4 Leukocytosis. 5 End-stage renal disease, on hemodialysis. 6 Diabetes mellitus with peripheral neuropathy. 7 Peripheral vascular disease. 8. PENICILLIN allergy, has tolerated meropenem well. 9. Right third toe proximal phalanx fracture, new. Plan: Plan of Care Cont vanc/merrem s/p levofloxacin wound vac/care f/u bc D/W BHAVYA HASSAN MD Nov 29, 2018 09:17
[2018-11-29 09:18] LABS: BASO # 0.1 x10^3/uL (0.0-0.2); BASO % 0 % (0-3); EOS % 0 % (0-3); HEMATOCRIT 23.8 % (39.0-53.0); HEMOGLOBIN 7.4 g/dL (13.0-17.5); LYMPH # 0.9 x10^3/uL (1.0-4.8); LYMPH % 5 % (24-48); MEAN CORPUSCULAR HEMOGLOBIN 28 pg (25-35); MEAN CORPUSCULAR HGB CONC 31 g/dL (31-37); MEAN CORPUSCULAR VOLUME 88 fL (79-100); MONO # 1.6 x10^3/uL (0.0-1.1); MONO % 9 % (0-9); NEUT # 15.1 x10^3uL (1.8-7.7); NEUT % 86 % (31-73); PLATELET COUNT 263 x10^3/uL (140-400); RED BLOOD COUNT 2.69 x10^6/uL (4.30-5.70); RED CELL DISTRIBUTION WIDTH 16.4 % (11.5-14.5); WHITE BLOOD COUNT 17.6 x10^3/uL (4.0-11.0)
--- NOTE | 2018-11-29 09:29 | PDOC ---
PROGRESS NOTES Chief Complaint Chief Complaint RT 2nd and 3rd toe pain, fracture of rt 3rd toe RT foot infection history of recent fifth and fourth toe amputation sites with OM treated with IV meropenem, completed on 11/10/[address] with wound [address]AC in place. Fever esrd on hd H/O noncompliance End-stage renal disease, on hemodialysis. Diabetes mellitus with peripheral neuropathy. Peripheral vascular disease. 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 The patient is status post open fourth and fifth ray amputation. DESCRIPTION OF PROCEDURE: The patient was given general anesthetic, prepped and draped in sterile fashion. Elliptical incision was utilized to encompass the base of the second and third toe. Soft tissue divided sharply. The bones were transected proximal to the metatarsophalangeal joint and the digits of metatarsal heads were removed. There was purulent material which transitions over towards the first metatarsophalangeal joint, involving the soft tissues, both on the dorsal aspect and plantar aspect of this foot. Because of the extension of the soft tissue infection, it was felt that first metatarsal head needed to be resected as well. He already had previous digit tip amputation. The incision was then extended medially, encompassing the first metatarsophalangeal joint. The metatarsal shaft was transected. The sesamoid bone was removed. Hemostasis achieved with cautery. Additional proximal portions of the second and third metatarsal shafts were removed with a rongeur as well as portions of the first metatarsal shaft. History of Present Illness History of Present Illness 53 year old with hx of Noncompliance, ESRD, on dialysis, AFib, anxiety, asthma , coronary artery disease, CHF, stroke, diabetes, GERD, hypertension, hyperlipidemia, myocardial infarction, TIA, peripheral vascular disease, morbid obesity, left arm fistula, right fourth and fifth toe amputations, left below the knee amputation, scrotal surgery, cardiac stents recent admission in Sep for volume overload for missed HD who presents to the ED with 4 day hx of cough sob, and fever of 103. patient missed HD sessions. patient in wound clinic 11/25 for dressing changes and found to have fever so sent directly to ED for further evaluation. fever of 102 in ED. BP stable, normal lactate. cultures drawn and concern for infiltrate in lung. started on Vanc and Levaquin and admitted to ED. 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 Plan: continue abx 2 and 3rd toe amputation 11/28 wound care following dialysis per nephro 11/28 42 min pt exam, chart review , pt exam, > 50% of time spent with exam, chart review, pt care coordination Vitals Vitals Vital Signs Date Time Temp Pulse Resp B/P (MAP) Pulse Ox O2 Delivery O2 Flow Rate FiO2 11/29/18 08:43 72 121/56 11/29/18 08:42 Room Air 11/29/18 07:05 87 11/29/18 07:00 98.3 18 98.3 11/28/18 15:00 2.0 Physical Exam Physical Exam GENERAL: Alert, oriented x 3 male lying in bed comfortably, eating, in no acute distress. HEENT: Normocephalic, atraumatic, anicteric. No thrush. Oral mucosa moist. NECK: Supple, no JVD. LUNGS: Clear bilaterally. HEART: S1, S2. ABDOMEN: Soft, obese. Bowel sounds present. EXTREMITIES: Left BKA stump healed, RT foot dressing in place ,intact DERMATOLOGIC: Warm without generalized rash. NEUROLOGIC: Alert and oriented x 3. LINES: PIV looks okay. Shunt, left upper extremity looks. General: Alert, Oriented X3, Cooperative, No acute distress, mild distress Heart: Regular rate, No murmurs, Other (Bilateral femoral pulses 2+, right DP and PT pulses biphasic, strong on doppler. ) Lungs: Clear Abdomen: Normal bowel sounds, Soft Extremities: Other (Prior right 1st toe amputation healed. ) Skin: Other (Right 2nd MTP joint swollen) Labs LABS Laboratory Tests Test 11/28/18 10:23 11/28/18 16:18 11/28/18 20:49 11/29/18 07:11 Glucose (Fingerstick) 113 mg/dL (70-99) 169 mg/dL (70-99) 214 mg/dL (70-99) Sodium Level 136 mmol/L (136-145) Potassium Level 4.5 mmol/L (3.5-5.1) Chloride Level 98 mmol/L (98-107) Carbon Dioxide Level 29 mmol/L (21-32) Anion Gap 9 (6-14) Blood Urea Nitrogen 37 mg/dL (8-26) Creatinine 6.8 mg/dL (0.7-1.3) Estimated GFR (Cockcroft-Gault) 10.4 Glucose Level 174 mg/dL (70-99) Calcium Level 9.5 mg/dL (8.5-10.1) Phosphorus Level 5.3 mg/dL (2.6-4.7) Albumin 2.2 g/dL (3.4-5.0) Test 11/29/18 07:54 Glucose (Fingerstick) 165 mg/dL (70-99) Assessment and Plan Assessmemt and Plan Problems Medical Problems: (1) Acute respiratory distress Status: Acute (2) Diabetic infection of right foot Status: Acute (3) Fever Status: Acute (4) HCAP (healthcare-associated pneumonia) Status: Acute (5) History of left below knee amputation Status: Acute (6) Sepsis Status: Acute (7) Symptomatic anemia Status: Acute (8) Toe fracture, right Status: Acute Comment Review of Relevant I have reviewed the following items lila (where applicable) has been applied. Labs Laboratory Tests Test 11/27/18 11:35 11/27/18 16:28 11/27/18 20:45 11/28/18 07:34 Glucose (Fingerstick) 148 mg/dL (70-99) 148 mg/dL (70-99) 145 mg/dL (70-99) 116 mg/dL (70-99) Test 11/28/18 10:23 11/28/18 16:18 11/28/18 20:49 11/29/18 07:11 Glucose (Fingerstick) 113 mg/dL (70-99) 169 mg/dL (70-99) 214 mg/dL (70-99) Sodium Level 136 mmol/L (136-145) Potassium Level 4.5 mmol/L (3.5-5.1) Chloride Level 98 mmol/L (98-107) Carbon Dioxide Level 29 mmol/L (21-32) Anion Gap 9 (6-14) Blood Urea Nitrogen 37 mg/dL (8-26) Creatinine 6.8 mg/dL (0.7-1.3) Estimated GFR (Cockcroft-Gault) 10.4 Glucose Level 174 mg/dL (70-99) Calcium Level 9.5 mg/dL (8.5-10.1) Phosphorus Level 5.3 mg/dL (2.6-4.7) Albumin 2.2 g/dL (3.4-5.0) Test 11/29/18 07:54 Glucose (Fingerstick) 165 mg/dL (70-99) Laboratory Tests Test 11/28/18 10:23 11/28/18 16:18 11/28/18 20:49 11/29/18 07:11 Glucose (Fingerstick) 113 mg/dL (70-99) 169 mg/dL (70-99) 214 mg/dL (70-99) Sodium Level 136 mmol/L (136-145) Potassium Level 4.5 mmol/L (3.5-5.1) Chloride Level 98 mmol/L (98-107) Carbon Dioxide Level 29 mmol/L (21-32) Anion Gap 9 (6-14) Blood Urea Nitrogen 37 mg/dL (8-26) Creatinine 6.8 mg/dL (0.7-1.3) Estimated GFR (Cockcroft-Gault) 10.4 Glucose Level 174 mg/dL (70-99) Calcium Level 9.5 mg/dL (8.5-10.1) Phosphorus Level 5.3 mg/dL (2.6-4.7) Albumin 2.2 g/dL (3.4-5.0) Test 11/29/18 07:54 Glucose (Fingerstick) 165 mg/dL (70-99) Microbiology 11/25/18 Blood Culture - Preliminary, Resulted NO GROWTH AFTER 3 DAYS Medications Current Medications Acetaminophen (Tylenol) 1,000 mg 1X ONCE PO Last administered on 11/25/18at 14: 04; Start 11/25/18 at 12:45; Stop 11/25/18 at 12:48; Status DC Sodium Chloride 500 ml @ 500 mls/hr 1X ONCE IV Last administered on at 14:00; Start 11/25/18 at 12:45; Stop 11/25/18 at 13:44; Status DC Sodium Chloride 1,000 ml @ 1,000 mls/hr 1X ONCE IV Last administered on at 14:39; Start 11/25/18 at 14:30; Stop 11/25/18 at 15:29; Status DC Albuterol/ Ipratropium (Duoneb) 3 ml 1X ONCE NEB Last administered on 14:30; Start 11/25/18 at 14:30; Stop 11/25/18 at 14:31; Status DC Vancomycin HCl 2 gm/Sodium Chloride 500 ml @ 250 mls/hr 1X ONCE IV Last administered on 11/25/18 14:30; Start 11/25/18 at 14:30; Stop 11/25/18 at 16:29 ; Status DC Levofloxacin/ Dextrose 150 ml @ 100 mls/hr 1X ONCE IV Last administered on 14:39; Start 11/25/18 at 14:30; Stop 11/25/18 at 15:59; Status DC Acetaminophen/ Hydrocodone Bitart (Lortab 7.5/325) 1 tab PRN Q4HRS PRN PO PAIN Last administered on 11/27/18 22:32; Start 11/25/18 at 17:15 Sodium Chloride (Normal Saline Flush) 3 ml QSHIFT PRN IV AFTER MEDS AND BLOOD DRAWS; Start 11/25/18 at 17:30 Vancomycin HCl (Vanco Per Pharmacy) 1 each PRN DAILY PRN MC SEE COMMENTS Last administered on 11/28/18 14:52; Start 11/25/18 at 17:30 Levofloxacin/ Dextrose (Levaquin Per Pharmacy) 1 each PRN DAILY PRN MC SEE COMMENTS; Start 11/25/18 at 17:30; Stop 11/26/18 at 09:31; Status DC Levofloxacin/ Dextrose 100 ml @ 100 mls/hr Q48H IV ; Start 11/27/18 at 14:00; Stop 11/27/18 at 14:00; Status DC Heparin Sodium (Porcine) (Heparin Sodium) 5,000 unit Q8HRS SQ Last administered on 11/29/18 06:17; Start 11/25/18 at 22:00 Acetaminophen (Tylenol) 650 mg PRN Q6HRS PRN PO FEVER Last administered on 11/28 04:45; Start 11/25/18 at 17:45 Aspirin ([place] Aspirin) 325 mg DAILY PO Last administered on 11/29/18 08:43; Start 11/26/18 at 09:00 Calcium Carbonate/ Glycine (Oscal) 500 mg BID PO Last administered on 08:42; Start 11/25/18 at 21:00 Carvedilol (Coreg) 3.125 mg BIDWMEALS PO Last administered on 11/29/18 08:43; Start 11/25/18 at 18:30 Clopidogrel Bisulfate (Plavix) 75 mg DAILY PO Last administered on 11/29/18 08 :43; Start 11/26/18 at 09:00 Famotidine (Pepcid) 20 mg HS PO Last administered on 11/25/18 20:34; Start at 21:00; Stop 11/26/18 at 08:53; Status DC Isosorbide Mononitrate (Imdur) 30 mg DAILY PO Last administered on 11/29/18 08 :42; Start 11/26/18 at 09:00 Levothyroxine Sodium (Synthroid) 175 mcg DAILYAC PO Last administered on 06:13; Start 11/26/18 at 07:30 Oxycodone/ Acetaminophen (Percocet 10/325) 1 tab QID PO Last administered on 08:42; Start 11/25/18 at 21:00 Zolpidem Tartrate (Ambien) 5 mg QHS PO Last administered on 11/28/18 21:12; Start 11/25/18 at 21:00 Albuterol Sulfate (Ventolin Neb Soln) 2.5 mg PRN Q6HRS PRN NEB SHORTNESS OF BREATH Last administered on 11/28/18 15:39; Start 11/25/18 at 17:45 Atorvastatin Calcium (Lipitor) 40 mg QHS PO Last administered on 11/28/18at 21: 10; Start 11/25/18 at 21:00 Non-Formulary Medication (Fluticasone Propionate (Flovent 110MCG Hfa)) 2 puff BID IH ; Start 11/25/18 at 21:00; Status UNV Levetiracetam (Keppra) 1,000 mg BID PO Last administered on 11/29/18 08:42; Start 11/25/18 at 21:00 Magnesium Oxide (Magnesium Oxide) 400 mg DAILY PO Last administered on 08:43; Start 11/26/18 at 09:00 Pramipexole Dihydrochloride (miraPEX) 0.25 mg DAILY PO Last administered on at 08:41; Start 11/26/18 at 09:00 Budesonide (Pulmicort) 0.5 mg RTBID NEB Last administered on 11/29/18at 07:12; Start 11/25/18 at 20:00 Vancomycin HCl (Vancomycin Random Level) 1 each 1X ONCE MC Last administered on 11/27/18at 06:00; Start 11/27/18 at 06:00; Stop 11/27/18 at 06:01; Status DC Midazolam HCl (Versed) 5 mg STK-MED ONCE .ROUTE ; Start 11/25/18 at 17:58; Stop 11/25/18 at 17:59; Status DC Lactobacillus Rhamnosus (Culturelle) 1 cap BID PO Last administered on at 08:43; Start 11/26/18 at 09:00 Midazolam HCl (Versed) 5 mg STK-MED ONCE .ROUTE ; Start 11/25/18 at 18:00; Stop 11/26/18 at 07:42; Status DC Famotidine (Pepcid) 20 mg Q48H PO Last administered on 11/27/18at 20:25; Start 11/27/18 at 21:00 Meropenem 500 mg/ Sodium Chloride 50 ml @ 100 mls/hr DAILY IV Last administered on 11/28/18at 09:28; Start 11/26/18 at 10:00 Sodium Chloride 1,000 ml @ 1,000 mls/hr Q1H PRN IV hypotension; Start 11/26/18 at 14:13; Stop 11/26/18 at 20:12; Status DC Albumin Human 200 ml @ 200 mls/hr 1X PRN PRN IV Hypotension; Start 11/26/18 at 14:15; Stop 11/26/18 at 20:14; Status DC Acetaminophen (Tylenol) 500 mg 1X PRN PRN PO MILD PAIN / TEMP; Start 11/26/18 at 14:15; Stop 11/27/18 at 14:14; Status DC Diphenhydramine HCl (Benadryl) 25 mg 1X PRN PRN IV ITCHING; Start 11/26/18 at 14:15; Stop 11/27/18 at 14:14; Status DC Diphenhydramine HCl (Benadryl) 25 mg 1X PRN PRN IV ITCHING; Start 11/26/18 at 14:15; Stop 11/27/18 at 14:14; Status DC Sodium Chloride 1,000 ml @ 400 mls/hr Q2H30M PRN IV PATENCY; Start 11/26/18 at 14:13; Stop 11/27/18 at 02:12; Status DC Info (PHARMACY MONITORING -- do not chart) 1 each PRN DAILY PRN MC SEE COMMENTS ; Start 11/26/18 at 14:15 Multivitamins (Thera M Plus) 1 tab DAILY PO Last administered on 11/29/18at 08: 42; Start 11/27/18 at 09:00 Darbepoetin Jace (Aranesp) 100 mcg WEEKLYHS SQ Last administered on 11/26/18at 20:53; Start 11/26/18 at 21:00 Lidocaine HCl 48 ml/Sodium Bicarbonate 12 meq/Miscellaneous 60 ml @ 60 mls/hr 1X ONCE ID ; Start 11/28/18 at 06:00; Stop 11/28/18 at 06:59; Status DC Ondansetron HCl (Zofran) 4 mg PRN Q6HRS PRN IV NAUSEA/VOMITING; Start 11/28/18 at 07:00; Stop 11/28/18 at 20:00; Status DC Fentanyl Citrate (Fentanyl 2ml Vial) 25 mcg PRN Q5MIN PRN IV MILD PAIN; Start 11/28/18 at 07:00; Stop 11/28/18 at 20:00; Status DC Fentanyl Citrate (Fentanyl 2ml Vial) 50 mcg PRN Q5MIN PRN IV MODERATE TO SEVERE PAIN Last administered on 11/28/18at 10:14; Start 11/28/18 at 07:00; Stop 11/28/18 at 20:00; Status DC Morphine Sulfate (Morphine Sulfate) 1 mg PRN Q10MIN PRN IV SEVERE PAIN; Start 11/28/18 at 07:00; Stop 11/28/18 at 20:00; Status DC Ringer's Solution 1,000 ml @ 30 mls/hr Q24H IV ; Start 11/28/18 at 07:00; Stop 11/28/18 at 18:59; Status DC Lidocaine HCl (Xylocaine-Mpf 1% 2ml Vial) 2 ml PRN 1X PRN ID PRIOR TO IV START ; Start 11/28/18 at 07:00; Stop 11/28/18 at 20:00; Status DC Hydromorphone HCl (Dilaudid) 0.5 mg PRN Q10MIN PRN IV SEV PAIN, Second choice; Start 11/28/18 at 07:00; Stop 11/28/18 at 20:00; Status DC Prochlorperazine Edisylate (Compazine) 5 mg PACU PRN PRN IV NAUSEA, MRX1; Start 11/28/18 at 07:00; Stop 11/28/18 at 20:00; Status DC Vancomycin HCl 500 mg/Sodium Chloride 100 ml @ 100 mls/hr 1X ONCE IV Last administered on 11/27/18at 13:29; Start 11/27/18 at 13:00; Stop 11/27/18 at 13:59 ; Status DC Vancomycin HCl 500 mg/Sodium Chloride 100 ml @ 100 mls/hr QTUTHSA IV Last administered on 11/28/18at 16:18; Start 11/28/18 at 16:00 Sodium Chloride 1,000 ml @ 1,000 mls/hr Q1H PRN IV hypotension; Start 11/28/18 at 07:04; Stop 11/28/18 at 13:03; Status DC Albumin Human 200 ml @ 200 mls/hr 1X PRN PRN IV Hypotension; Start 11/28/18 at 07:15; Stop 11/28/18 at 13:14; Status DC Acetaminophen (Tylenol) 500 mg 1X PRN PRN PO MILD PAIN / TEMP; Start 11/28/18 at 07:15; Stop 11/29/18 at 07:14; Status DC Diphenhydramine HCl (Benadryl) 25 mg 1X PRN PRN IV ITCHING; Start 11/28/18 at 07:15; Stop 11/29/18 at 07:14; Status DC Diphenhydramine HCl (Benadryl) 25 mg 1X PRN PRN IV ITCHING; Start 11/28/18 at 07:15; Stop 11/29/18 at 07:14; Status DC Sodium Chloride 1,000 ml @ 400 mls/hr Q2H30M PRN IV PATENCY; Start 11/28/18 at 07:04; Stop 11/28/18 at 19:03; Status DC Info (PHARMACY MONITORING -- do not chart) 1 each PRN DAILY PRN MC SEE COMMENTS ; Start 11/28/18 at 07:15 Propofol 20 ml @ As Directed STK-MED ONCE IV ; Start 11/28/18 at 08:23; Stop at 08:24; Status DC Lidocaine HCl (Lidocaine Pf 2% Vial) 5 ml STK-MED ONCE .ROUTE ; Start 11/28/18 at 08:23; Stop 11/28/18 at 08:24; Status DC Phenylephrine HCl (PHENYLEPHRINE in 0.9% NACL PF) 1 mg STK-MED ONCE IV ; Start 11/28/18 at 08:23; Stop 11/28/18 at 08:24; Status DC Dexamethasone Sodium Phosphate (Decadron) 20 mg STK-MED ONCE .ROUTE ; Start at 08:23; Stop 11/28/18 at 08:24; Status DC Famotidine (Pepcid Vial) 20 mg STK-MED ONCE .ROUTE ; Start 11/28/18 at 08:23; Stop 11/28/18 at 08:24; Status DC Ondansetron HCl (Zofran) 4 mg STK-MED ONCE .ROUTE ; Start 11/28/18 at 08:23; Stop 11/28/18 at 08:24; Status DC Silver Sulfadiazine (Silvadene) 25 ayaz STK-MED ONCE TP ; Start 11/28/18 at 07:36 ; Stop 11/28/18 at 08:37; Status DC Morphine Sulfate (Morphine Sulfate) 2 mg PRN Q2HR PRN IV MODERATE TO SEVERE PAIN; Start 11/28/18 at 09:15 Sevoflurane (Ultane) 30 ml STK-MED ONCE IH ; Start 11/28/18 at 09:41; Stop 11/28 at 09:42; Status DC Fentanyl Citrate (Fentanyl 2ml Vial) 100 mcg STK-MED ONCE .ROUTE ; Start at 10:12; Stop 11/28/18 at 10:13; Status DC Active Scripts Active Isosorbide Mononitrate Er (Isosorbide Mononitrate) 30 Mg Tab.er.24h 30 Mg PO DAILY 30 Days Reported Aspirin 325 Mg Tablet 1 Tab PO DAILY Coreg (Carvedilol) 3.125 Mg Tablet 3.125 Mg PO BIDWMEALS Magnesium (Magnesium Oxide) 400 Mg Capsule 400 Mg PO DAILY Levothyroxine Sodium 175 Mcg Tablet 175 Mcg PO DAILYAC Plavix (Clopidogrel Bisulfate) 75 Mg Tablet 75 Mg PO DAILY Calcium Carbonate 500 Mg Tablet 500 Mg PO BID Lipitor (Atorvastatin Calcium) 80 Mg Tablet 40 Mg PO HS Keppra (Levetiracetam) 1,000 Mg Tablet 1 Tab PO BID Endocet 10-325 Mg Tablet (Oxycodone Hcl/Acetaminophen) 1 Each Tablet 1 Tab PO QID Flovent 110MCG Hfa (Fluticasone Propionate) 12 Gm Aer.w.adap 2 Puff IH BID Zolpidem Tartrate 5 Mg Tablet 1 Tab PO QHS Mirapex (Pramipexole Di-Hcl) 0.25 Mg Tablet 1 Tab PO DAILY Tylenol (Acetaminophen) 325 Mg Tablet 650 Mg PO PRN Q6HRS PRN Famotidine 20 Mg Tablet 20 Mg PO HS Ventolin Hfa Inhaler (Albuterol Sulfate) 18 Gm Hfa.aer.ad 1 Puff INH Q6HRS PRN Vitals/I & O Vital Sign - Last 24 Hours 11/28/18 11/28/18 11/28/18 11/28/18 09:56 09:56 10:14 10:15 Temp 98.0 98.0 98.0 98.0 Pulse 91 86 Resp 20 14 13 B/P (MAP) 124/62 108/50 Pulse Ox 100 98 97 O2 Delivery Nasal Cannula Nasal Cannula Simple Mask Simple Mask O2 Flow Rate 6 6 2.0 2 11/28/18 11/28/18 11/28/18 11/28/18 10:30 15:00 15:41 16:16 Temp 98.4 98.4 98.4 98.4 Pulse 87 87 Resp 27 17 B/P (MAP) 104/84 119/51 (73) Pulse Ox 97 97 97 O2 Delivery Room Air Room Air Room Air O2 Flow Rate 2.0 11/28/18 11/28/18 11/28/18 11/28/18 16:17 19:00 20:00 20:41 Temp 99.1 99.1 Pulse 87 73 Resp 18 B/P (MAP) 119/51 105/51 (69) Pulse Ox 97 93 O2 Delivery Room Air Room Air Room Air 11/28/18 11/28/18 11/28/18 11/29/18 21:11 22:11 23:00 03:00 Temp 97.6 97.5 97.6 97.5 Pulse 86 75 Resp 20 20 18 18 B/P (MAP) 108/44 (65) 116/54 (74) Pulse Ox 94 94 O2 Delivery Room Air Room Air Room Air Room Air 11/29/18 11/29/18 11/29/18 11/29/18 07:00 07:05 08:42 08:42 Temp 98.3 98.3 Pulse 72 72 Resp 18 B/P (MAP) 121/56 (77) 121/56 Pulse Ox 97 87 O2 Delivery Room Air Room Air Room Air 11/29/18 08:43 Pulse 72 B/P (MAP) 121/56 Intake and Output 11/28/18 11/28/18 11/29/18 15:00 23:00 07:00 Intake Total 350 ml 120 ml 300 ml Output Total 200 ml Balance 150 ml 120 ml 300 ml NICHOLE THORNTON MD Nov 29, 2018 09:29
[2018-11-29 11:00] VITALS: BP 112/58
--- NOTE | 2018-11-29 12:15 | PDOC ---
SUBJECTIVE ROS No new concerns OBJECTIVE Vital Signs Vital Signs Date Time Temp Pulse Resp B/P (MAP) Pulse Ox O2 Delivery O2 Flow Rate FiO2 11/29/18 11:00 98.4 78 18 112/58 (76) 98 Room Air 98.4 11/28/18 15:00 2.0 I & 0 Intake and Output 11/29/18 06:59 Intake Total 770 ml Output Total 200 ml Balance 570 ml Intake Oral 420 ml IV Total 350 ml Output Urine Total 150 ml Estimated Blood Loss 50 ml # Voids 1 PHYSICAL EXAM Physical Exam GENERAL: NAD HEENT: Head normocephalic, atraumatic. NECK: Supple LUNGS: Clear to auscultation. HEART: RRR, S1, S2 present ABDOMEN: Soft, Obese EXTREMITIES: No cyanosis or edema. right foot wound wrapped; Lt BKA LUE dialysis access site NEUROLOGIC: Grossly Normal SKIN No Rash No Henry DIAGNOSIS/ASSESSMENT Assessment & Plan ESRD - On HD TTS Chronic Non Compliance No Indication for HD today Infected right lateral foot wound s/p right 4th toe amputation and foot debridement on 09/24/18. S/p Right 2nd and 3rd toe amputation, open, Right first metatarsal partial resection and right lateral foot debridement this am On Abx, Followed by ID and Vascular Acute Hypoxic Resp Failure secondary to HCAP, prob GN bacteria CT chest done Diastolic heart failure. Coronary artery disease Stable History of atrial fibrillation. Rate controlled. Continue medications. TIA history. Peripheral arterial disease. Status post left BKA. HTN- BP stable Anemia- KEITH as ordered COMMENT/RELEVANT DATA Meds Current Medications Medications (Trade) Dose Ordered Sig/[place] Start Time Stop Time Status Last Admin Dose Admin Acetaminophen (Tylenol) 500 mg 1X PRN PRN 11/28/18 07:15 11/29/18 07:14 DC Acetaminophen/ Hydrocodone Bitart (Lortab 7.5/325) 1 tab PRN Q4HRS PRN 11/25/18 17:15 11/27/18 22:32 1 TAB Albumin Human 200 ml @ 200 mls/hr 1X PRN PRN 11/28/18 07:15 11/28/18 13:14 DC Albuterol Sulfate (Ventolin Neb Soln) 2.5 mg PRN Q6HRS PRN 11/25/18 17:45 11/28/18 15:39 2.5 MG Albuterol/ Ipratropium (Duoneb) 3 ml 1X ONCE 11/25/18 14:30 11/25/18 14:31 DC 11/25/18 14:30 3 ML Aspirin ([place] Aspirin) 325 mg DAILY 11/26/18 09:00 11/29/18 08:43 325 MG Atorvastatin Calcium (Lipitor) 40 mg QHS 11/25/18 21:00 11/28/18 21:10 40 MG Budesonide (Pulmicort) 0.5 mg RTBID 11/25/18 20:00 11/29/18 07:12 0.5 MG Calcium Carbonate/ Glycine (Oscal) 500 mg BID 11/25/18 21:00 11/29/18 08:42 500 MG Carvedilol (Coreg) 3.125 mg BIDWMEALS 11/25/18 18:30 11/29/18 08:43 3.125 MG Clopidogrel Bisulfate (Plavix) 75 mg DAILY 11/26/18 09:00 11/29/18 08:43 75 MG Darbepoetin Jace (Aranesp) 100 mcg WEEKLYHS 11/26/18 21:00 11/26/18 20:53 100 MCG Dexamethasone Sodium Phosphate (Decadron) 20 mg STK-MED ONCE 11/28/18 08:23 11/28/18 08:24 DC Diphenhydramine HCl (Benadryl) 25 mg 1X PRN PRN 11/28/18 07:15 11/29/18 07:14 DC Famotidine (Pepcid Vial) 20 mg STK-MED ONCE 11/28/18 08:23 11/28/18 08:24 DC Famotidine (Pepcid) 20 mg Q48H 11/27/18 21:00 11/27/18 20:25 20 MG Fentanyl Citrate (Fentanyl 2ml Vial) 100 mcg STK-MED ONCE 11/28/18 10:12 11/28/18 10:13 DC Heparin Sodium (Porcine) (Heparin Sodium) 5,000 unit Q8HRS 11/25/18 22:00 11/29/18 06:17 5,000 UNIT Hydromorphone HCl (Dilaudid) 0.5 mg PRN Q10MIN PRN 11/28/18 07:00 11/28/18 20:00 DC Info (PHARMACY MONITORING -- do not chart) 1 each PRN DAILY PRN 11/28/18 07:15 Isosorbide Mononitrate (Imdur) 30 mg DAILY 11/26/18 09:00 11/29/18 08:42 30 MG Lactobacillus Rhamnosus (Culturelle) 1 cap BID 11/26/18 09:00 11/29/18 08:43 1 CAP Levetiracetam (Keppra) 1,000 mg BID 11/25/18 21:00 11/29/18 08:42 1,000 MG Levofloxacin/ Dextrose 100 ml @ 100 mls/hr Q48H 11/27/18 14:00 11/27/18 14:00 DC Levofloxacin/ Dextrose (Levaquin Per Pharmacy) 1 each PRN DAILY PRN 11/25/18 17:30 11/26/18 09:31 DC Levothyroxine Sodium (Synthroid) 175 mcg DAILYAC 11/26/18 07:30 11/29/18 06:13 175 MCG Lidocaine HCl (Lidocaine Pf 2% Vial) 5 ml STK-MED ONCE 11/28/18 08:23 11/28/18 08:24 DC Lidocaine HCl (Xylocaine-Mpf 1% 2ml Vial) 2 ml PRN 1X PRN 11/28/18 07:00 11/28/18 20:00 DC Lidocaine HCl 48 ml/Sodium Bicarbonate 12 meq/Miscellaneous 60 ml @ 60 mls/hr 1X ONCE 11/28/18 06:00 11/28/18 06:59 DC Magnesium Oxide (Magnesium Oxide) 400 mg DAILY 11/26/18 09:00 11/29/18 08:43 400 MG Meropenem 500 mg/ Sodium Chloride 50 ml @ 100 mls/hr DAILY 11/26/18 10:00 11/28/18 09:28 100 MLS/HR Midazolam HCl (Versed) 5 mg STK-MED ONCE 11/25/18 18:00 11/26/18 07:42 DC Morphine Sulfate (Morphine Sulfate) 2 mg PRN Q2HR PRN 11/28/18 09:15 Multivitamins (Thera M Plus) 1 tab DAILY 11/27/18 09:00 11/29/18 08:42 1 TAB Non-Formulary Medication (Fluticasone Propionate (Flovent 110MCG Hfa)) 2 puff BID 11/25/18 21:00 UNV Ondansetron HCl (Zofran) 4 mg STK-MED ONCE 11/28/18 08:23 11/28/18 08:24 DC Oxycodone/ Acetaminophen (Percocet 10/325) 1 tab QID 11/25/18 21:00 11/29/18 08:42 1 TAB Phenylephrine HCl (PHENYLEPHRINE in 0.9% NACL PF) 1 mg STK-MED ONCE 11/28/18 08:23 11/28/18 08:24 DC Pramipexole Dihydrochloride (miraPEX) 0.25 mg DAILY 11/26/18 09:00 11/29/18 08:41 0.25 MG Prochlorperazine Edisylate (Compazine) 5 mg PACU PRN PRN 11/28/18 07:00 11/28/18 20:00 DC Propofol 20 ml @ As Directed STK-MED ONCE 11/28/18 08:23 11/28/18 08:24 DC Ringer's Solution 1,000 ml @ 30 mls/hr Q24H 11/28/18 07:00 11/28/18 18:59 DC Sevoflurane (Ultane) 30 ml STK-MED ONCE 11/28/18 09:41 11/28/18 09:42 DC Silver Sulfadiazine (Silvadene) 25 ayaz STK-MED ONCE 11/28/18 07:36 11/28/18 08:37 DC Sodium Chloride 1,000 ml @ 400 mls/hr Q2H30M PRN 11/28/18 07:04 11/28/18 19:03 DC Sodium Chloride (Normal Saline Flush) 3 ml QSHIFT PRN 11/25/18 17:30 Vancomycin HCl (Vanco Per Pharmacy) 1 each PRN DAILY PRN 11/25/18 17:30 11/28/18 14:52 1 EACH Vancomycin HCl (Vancomycin Random Level) 1 each 1X ONCE 11/27/18 06:00 11/27/18 06:01 DC 11/27/18 06:00 1 EACH Vancomycin HCl 500 mg/Sodium Chloride 100 ml @ 100 mls/hr QTUTHSA 11/28/18 16:00 11/28/18 16:18 100 MLS/HR Vancomycin HCl 2 gm/Sodium Chloride 500 ml @ 250 mls/hr 1X ONCE 11/25/18 14:30 11/25/18 16:29 DC 11/25/18 14:30 250 MLS/HR Zolpidem Tartrate (Ambien) 5 mg QHS 11/25/18 21:00 11/28/18 21:12 5 MG Lab Laboratory Tests Test 11/28/18 16:18 11/28/18 20:49 11/29/18 07:11 11/29/18 07:54 Glucose (Fingerstick) 169 mg/dL (70-99) 214 mg/dL (70-99) 165 mg/dL (70-99) White Blood Count 17.6 x10^3/uL (4.0-11.0) Red Blood Count 2.69 x10^6/uL (4.30-5.70) Hemoglobin 7.4 g/dL (13.0-17.5) Hematocrit 23.8 % (39.0-53.0) Mean Corpuscular Volume 88 fL (79-100) Mean Corpuscular Hemoglobin 28 pg (25-35) Mean Corpuscular Hemoglobin Concent 31 g/dL (31-37) Red Cell Distribution Width 16.4 % (11.5-14.5) Platelet Count 263 x10^3/uL (140-400) Neutrophils (%) (Auto) 86 % (31-73) Lymphocytes (%) (Auto) 5 % (24-48) Monocytes (%) (Auto) 9 % (0-9) Eosinophils (%) (Auto) 0 % (0-3) Basophils (%) (Auto) 0 % (0-3) Neutrophils # (Auto) 15.1 x10^3uL (1.8-7.7) Lymphocytes # (Auto) 0.9 x10^3/uL (1.0-4.8) Monocytes # (Auto) 1.6 x10^3/uL (0.0-1.1) Eosinophils # (Auto) 0.0 x10^3/uL (0.0-0.7) Basophils # (Auto) 0.1 x10^3/uL (0.0-0.2) Sodium Level 136 mmol/L (136-145) Potassium Level 4.5 mmol/L (3.5-5.1) Chloride Level 98 mmol/L (98-107) Carbon Dioxide Level 29 mmol/L (21-32) Anion Gap 9 (6-14) Blood Urea Nitrogen 37 mg/dL (8-26) Creatinine 6.8 mg/dL (0.7-1.3) Estimated GFR (Cockcroft-Gault) 10.4 Glucose Level 174 mg/dL (70-99) Calcium Level 9.5 mg/dL (8.5-10.1) Phosphorus Level 5.3 mg/dL (2.6-4.7) Albumin 2.2 g/dL (3.4-5.0) Test 11/29/18 11:05 Glucose (Fingerstick) 173 mg/dL (70-99) Results All relevant outside records, renal labs, imaging studies, telemetry/EKG's were reviewed. MINA RICHARDSON MD Nov 29, 2018 12:14
[2018-11-29] MEDS: HYDROcodone/APAP 7.5/325MG 1 TAB TABLET PO PRN (12:26)
--- NOTE | 2018-11-29 13:12 | PDOC ---
PROGRESS NOTES Subjective Subjective "I've been having some bloody drainage from my dressing." Objective Objective Vascular Surgery - POD#1 Right 2nd and 3rd toe amputation, open; Right first metatarsal partial resection; Right lateral foot debridement General: Awake and alert. VSS, afebrile. Tmax 99 last evening. No complaints of pain at this time. RLE: dressing has bloody drainage that has weeped through dressing. This has been removed. Base of wound bloody with no active bleeding. Surrounding tissue with improved erythema and swelling. Assessment/Plan: 1. Right foot soft tissue infection and gangrene of right 2nd and 3rd toes - POD#1 Right 2nd and 3rd toe amputation, open; Right first metatarsal partial resection; Right lateral foot debridement 2. Ok to initiate wound vac therapy and dressing today. I have spoke with wound care staff. 3. PT to work with patient on mobilization with pivot transfers with protective boot in place. Prosthesis for left leg is currently at home. 4. Leukocytosis with elevation on today's labs. IV antibiotic plan per ID. 5. Anticipate observation of foot debridement with wound VAC dressing change on Sunday. Vital Signs Date Time Temp Pulse Resp B/P (MAP) Pulse Ox O2 Delivery O2 Flow Rate FiO2 11/29/18 12:26 Room Air 11/29/18 11:00 98.4 78 18 112/58 (76) 98 98.4 11/28/18 15:00 2.0 Intake and Output 11/29/18 07:00 Intake Total 770 ml Output Total 200 ml Balance 570 ml Intake Oral 420 ml IV Total 350 ml Output Urine Total 150 ml Estimated Blood Loss 50 ml # Voids 1 Assessment Assessment Problems Medical Problems: (1) Acute respiratory distress Status: Acute (2) Diabetic infection of right foot Status: Acute (3) Fever Status: Acute (4) HCAP (healthcare-associated pneumonia) Status: Acute (5) History of left below knee amputation Status: Acute (6) Sepsis Status: Acute (7) Symptomatic anemia Status: Acute (8) Toe fracture, right Status: Acute Comment Review of Relevant I have reviewed the following items lila (where applicable) has been applied. Labs Laboratory Tests Test 11/27/18 16:28 11/27/18 20:45 11/28/18 07:34 11/28/18 10:23 Glucose (Fingerstick) 148 mg/dL (70-99) 145 mg/dL (70-99) 116 mg/dL (70-99) 113 mg/dL (70-99) Test 11/28/18 16:18 11/28/18 20:49 11/29/18 07:11 11/29/18 07:54 Glucose (Fingerstick) 169 mg/dL (70-99) 214 mg/dL (70-99) 165 mg/dL (70-99) White Blood Count 17.6 x10^3/uL (4.0-11.0) Red Blood Count 2.69 x10^6/uL (4.30-5.70) Hemoglobin 7.4 g/dL (13.0-17.5) Hematocrit 23.8 % (39.0-53.0) Mean Corpuscular Volume 88 fL (79-100) Mean Corpuscular Hemoglobin 28 pg (25-35) Mean Corpuscular Hemoglobin Concent 31 g/dL (31-37) Red Cell Distribution Width 16.4 % (11.5-14.5) Platelet Count 263 x10^3/uL (140-400) Neutrophils (%) (Auto) 86 % (31-73) Lymphocytes (%) (Auto) 5 % (24-48) Monocytes (%) (Auto) 9 % (0-9) Eosinophils (%) (Auto) 0 % (0-3) Basophils (%) (Auto) 0 % (0-3) Neutrophils # (Auto) 15.1 x10^3uL (1.8-7.7) Lymphocytes # (Auto) 0.9 x10^3/uL (1.0-4.8) Monocytes # (Auto) 1.6 x10^3/uL (0.0-1.1) Eosinophils # (Auto) 0.0 x10^3/uL (0.0-0.7) Basophils # (Auto) 0.1 x10^3/uL (0.0-0.2) Sodium Level 136 mmol/L (136-145) Potassium Level 4.5 mmol/L (3.5-5.1) Chloride Level 98 mmol/L (98-107) Carbon Dioxide Level 29 mmol/L (21-32) Anion Gap 9 (6-14) Blood Urea Nitrogen 37 mg/dL (8-26) Creatinine 6.8 mg/dL (0.7-1.3) Estimated GFR (Cockcroft-Gault) 10.4 Glucose Level 174 mg/dL (70-99) Calcium Level 9.5 mg/dL (8.5-10.1) Phosphorus Level 5.3 mg/dL (2.6-4.7) Albumin 2.2 g/dL (3.4-5.0) Test 11/29/18 11:05 Glucose (Fingerstick) 173 mg/dL (70-99) Laboratory Tests Test 11/28/18 16:18 11/28/18 20:49 11/29/18 07:11 11/29/18 07:54 Glucose (Fingerstick) 169 mg/dL (70-99) 214 mg/dL (70-99) 165 mg/dL (70-99) White Blood Count 17.6 x10^3/uL (4.0-11.0) Red Blood Count 2.69 x10^6/uL (4.30-5.70) Hemoglobin 7.4 g/dL (13.0-17.5) Hematocrit 23.8 % (39.0-53.0) Mean Corpuscular Volume 88 fL (79-100) Mean Corpuscular Hemoglobin 28 pg (25-35) Mean Corpuscular Hemoglobin Concent 31 g/dL (31-37) Red Cell Distribution Width 16.4 % (11.5-14.5) Platelet Count 263 x10^3/uL (140-400) Neutrophils (%) (Auto) 86 % (31-73) Lymphocytes (%) (Auto) 5 % (24-48) Monocytes (%) (Auto) 9 % (0-9) Eosinophils (%) (Auto) 0 % (0-3) Basophils (%) (Auto) 0 % (0-3) Neutrophils # (Auto) 15.1 x10^3uL (1.8-7.7) Lymphocytes # (Auto) 0.9 x10^3/uL (1.0-4.8) Monocytes # (Auto) 1.6 x10^3/uL (0.0-1.1) Eosinophils # (Auto) 0.0 x10^3/uL (0.0-0.7) Basophils # (Auto) 0.1 x10^3/uL (0.0-0.2) Sodium Level 136 mmol/L (136-145) Potassium Level 4.5 mmol/L (3.5-5.1) Chloride Level 98 mmol/L (98-107) Carbon Dioxide Level 29 mmol/L (21-32) Anion Gap 9 (6-14) Blood Urea Nitrogen 37 mg/dL (8-26) Creatinine 6.8 mg/dL (0.7-1.3) Estimated GFR (Cockcroft-Gault) 10.4 Glucose Level 174 mg/dL (70-99) Calcium Level 9.5 mg/dL (8.5-10.1) Phosphorus Level 5.3 mg/dL (2.6-4.7) Albumin 2.2 g/dL (3.4-5.0) Test 11/29/18 11:05 Glucose (Fingerstick) 173 mg/dL (70-99) Microbiology 11/25/18 Blood Culture - Preliminary, Resulted NO GROWTH AFTER 3 DAYS Medications Current Medications Acetaminophen (Tylenol) 1,000 mg 1X ONCE PO Last administered on 11/25/18 14: 04; Start 11/25/18 at 12:45; Stop 11/25/18 at 12:48; Status DC Sodium Chloride 500 ml @ 500 mls/hr 1X ONCE IV Last administered on at 14:00; Start 11/25/18 at 12:45; Stop 11/25/18 at 13:44; Status DC Sodium Chloride 1,000 ml @ 1,000 mls/hr 1X ONCE IV Last administered on 14:39; Start 11/25/18 at 14:30; Stop 11/25/18 at 15:29; Status DC Albuterol/ Ipratropium (Duoneb) 3 ml 1X ONCE NEB Last administered on 14:30; Start 11/25/18 at 14:30; Stop 11/25/18 at 14:31; Status DC Vancomycin HCl 2 gm/Sodium Chloride 500 ml @ 250 mls/hr 1X ONCE IV Last administered on 11/25/18 14:30; Start 11/25/18 at 14:30; Stop 11/25/18 at 16:29 ; Status DC Levofloxacin/ Dextrose 150 ml @ 100 mls/hr 1X ONCE IV Last administered on 14:39; Start 11/25/18 at 14:30; Stop 11/25/18 at 15:59; Status DC Acetaminophen/ Hydrocodone Bitart (Lortab 7.5/325) 1 tab PRN Q4HRS PRN PO PAIN Last administered on 11/29/18 12:26; Start 11/25/18 at 17:15 Sodium Chloride (Normal Saline Flush) 3 ml QSHIFT PRN IV AFTER MEDS AND BLOOD DRAWS; Start 11/25/18 at 17:30 Vancomycin HCl (Vanco Per Pharmacy) 1 each PRN DAILY PRN MC SEE COMMENTS Last administered on 11/28/18 14:52; Start 11/25/18 at 17:30 Levofloxacin/ Dextrose (Levaquin Per Pharmacy) 1 each PRN DAILY PRN MC SEE COMMENTS; Start 11/25/18 at 17:30; Stop 11/26/18 at 09:31; Status DC Levofloxacin/ Dextrose 100 ml @ 100 mls/hr Q48H IV ; Start 11/27/18 at 14:00; Stop 11/27/18 at 14:00; Status DC Heparin Sodium (Porcine) (Heparin Sodium) 5,000 unit Q8HRS SQ Last administered on 11/29/18 06:17; Start 11/25/18 at 22:00 Acetaminophen (Tylenol) 650 mg PRN Q6HRS PRN PO FEVER Last administered on 11/28 04:45; Start 11/25/18 at 17:45 Aspirin ([place] Aspirin) 325 mg DAILY PO Last administered on 11/29/18 08:43; Start 11/26/18 at 09:00 Calcium Carbonate/ Glycine (Oscal) 500 mg BID PO Last administered on 08:42; Start 11/25/18 at 21:00 Carvedilol (Coreg) 3.125 mg BIDWMEALS PO Last administered on 11/29/18 08:43; Start 11/25/18 at 18:30 Clopidogrel Bisulfate (Plavix) 75 mg DAILY PO Last administered on 11/29/18 08 :43; Start 11/26/18 at 09:00 Famotidine (Pepcid) 20 mg HS PO Last administered on 11/25/18 20:34; Start at 21:00; Stop 11/26/18 at 08:53; Status DC Isosorbide Mononitrate (Imdur) 30 mg DAILY PO Last administered on 11/29/18 08 :42; Start 11/26/18 at 09:00 Levothyroxine Sodium (Synthroid) 175 mcg DAILYAC PO Last administered on 06:13; Start 11/26/18 at 07:30 Oxycodone/ Acetaminophen (Percocet 10/325) 1 tab QID PO Last administered on 08:42; Start 11/25/18 at 21:00 Zolpidem Tartrate (Ambien) 5 mg QHS PO Last administered on 11/28/18 21:12; Start 11/25/18 at 21:00 Albuterol Sulfate (Ventolin Neb Soln) 2.5 mg PRN Q6HRS PRN NEB SHORTNESS OF BREATH Last administered on 11/28/18 15:39; Start 11/25/18 at 17:45 Atorvastatin Calcium (Lipitor) 40 mg QHS PO Last administered on 11/28/18 21: 10; Start 11/25/18 at 21:00 Non-Formulary Medication (Fluticasone Propionate (Flovent 110MCG Hfa)) 2 puff BID IH ; Start 11/25/18 at 21:00; Status UNV Levetiracetam (Keppra) 1,000 mg BID PO Last administered on 11/29/18 08:42; Start 11/25/18 at 21:00 Magnesium Oxide (Magnesium Oxide) 400 mg DAILY PO Last administered on 08:43; Start 11/26/18 at 09:00 Pramipexole Dihydrochloride (miraPEX) 0.25 mg DAILY PO Last administered on 08:41; Start 11/26/18 at 09:00 Budesonide (Pulmicort) 0.5 mg RTBID NEB Last administered on 11/29/18 07:12; Start 11/25/18 at 20:00 Vancomycin HCl (Vancomycin Random Level) 1 each 1X ONCE MC Last administered on 11/27/18 06:00; Start 11/27/18 at 06:00; Stop 11/27/18 at 06:01; Status DC Midazolam HCl (Versed) 5 mg STK-MED ONCE .ROUTE ; Start 11/25/18 at 17:58; Stop 11/25/18 at 17:59; Status DC Lactobacillus Rhamnosus (Culturelle) 1 cap BID PO Last administered on at 08:43; Start 11/26/18 at 09:00 Midazolam HCl (Versed) 5 mg STK-MED ONCE .ROUTE ; Start 11/25/18 at 18:00; Stop 11/26/18 at 07:42; Status DC Famotidine (Pepcid) 20 mg Q48H PO Last administered on 11/27/18at 20:25; Start 11/27/18 at 21:00 Meropenem 500 mg/ Sodium Chloride 50 ml @ 100 mls/hr DAILY IV Last administered on 11/28/18at 09:28; Start 11/26/18 at 10:00 Sodium Chloride 1,000 ml @ 1,000 mls/hr Q1H PRN IV hypotension; Start 11/26/18 at 14:13; Stop 11/26/18 at 20:12; Status DC Albumin Human 200 ml @ 200 mls/hr 1X PRN PRN IV Hypotension; Start 11/26/18 at 14:15; Stop 11/26/18 at 20:14; Status DC Acetaminophen (Tylenol) 500 mg 1X PRN PRN PO MILD PAIN / TEMP; Start 11/26/18 at 14:15; Stop 11/27/18 at 14:14; Status DC Diphenhydramine HCl (Benadryl) 25 mg 1X PRN PRN IV ITCHING; Start 11/26/18 at 14:15; Stop 11/27/18 at 14:14; Status DC Diphenhydramine HCl (Benadryl) 25 mg 1X PRN PRN IV ITCHING; Start 11/26/18 at 14:15; Stop 11/27/18 at 14:14; Status DC Sodium Chloride 1,000 ml @ 400 mls/hr Q2H30M PRN IV PATENCY; Start 11/26/18 at 14:13; Stop 11/27/18 at 02:12; Status DC Info (PHARMACY MONITORING -- do not chart) 1 each PRN DAILY PRN MC SEE COMMENTS ; Start 11/26/18 at 14:15 Multivitamins (Thera M Plus) 1 tab DAILY PO Last administered on 11/29/18at 08: 42; Start 11/27/18 at 09:00 Darbepoetin Jace (Aranesp) 100 mcg WEEKLYHS SQ Last administered on 11/26/18at 20:53; Start 11/26/18 at 21:00 Lidocaine HCl 48 ml/Sodium Bicarbonate 12 meq/Miscellaneous 60 ml @ 60 mls/hr 1X ONCE ID ; Start 11/28/18 at 06:00; Stop 11/28/18 at 06:59; Status DC Ondansetron HCl (Zofran) 4 mg PRN Q6HRS PRN IV NAUSEA/VOMITING; Start 11/28/18 at 07:00; Stop 11/28/18 at 20:00; Status DC Fentanyl Citrate (Fentanyl 2ml Vial) 25 mcg PRN Q5MIN PRN IV MILD PAIN; Start 11/28/18 at 07:00; Stop 11/28/18 at 20:00; Status DC Fentanyl Citrate (Fentanyl 2ml Vial) 50 mcg PRN Q5MIN PRN IV MODERATE TO SEVERE PAIN Last administered on 11/28/18at 10:14; Start 11/28/18 at 07:00; Stop 11/28/18 at 20:00; Status DC Morphine Sulfate (Morphine Sulfate) 1 mg PRN Q10MIN PRN IV SEVERE PAIN; Start 11/28/18 at 07:00; Stop 11/28/18 at 20:00; Status DC Ringer's Solution 1,000 ml @ 30 mls/hr Q24H IV ; Start 11/28/18 at 07:00; Stop 11/28/18 at 18:59; Status DC Lidocaine HCl (Xylocaine-Mpf 1% 2ml Vial) 2 ml PRN 1X PRN ID PRIOR TO IV START ; Start 11/28/18 at 07:00; Stop 11/28/18 at 20:00; Status DC Hydromorphone HCl (Dilaudid) 0.5 mg PRN Q10MIN PRN IV SEV PAIN, Second choice; Start 11/28/18 at 07:00; Stop 11/28/18 at 20:00; Status DC Prochlorperazine Edisylate (Compazine) 5 mg PACU PRN PRN IV NAUSEA, MRX1; Start 11/28/18 at 07:00; Stop 11/28/18 at 20:00; Status DC Vancomycin HCl 500 mg/Sodium Chloride 100 ml @ 100 mls/hr 1X ONCE IV Last administered on 11/27/18at 13:29; Start 11/27/18 at 13:00; Stop 11/27/18 at 13:59 ; Status DC Vancomycin HCl 500 mg/Sodium Chloride 100 ml @ 100 mls/hr QTUTHSA IV Last administered on 11/28/18at 16:18; Start 11/28/18 at 16:00 Sodium Chloride 1,000 ml @ 1,000 mls/hr Q1H PRN IV hypotension; Start 11/28/18 at 07:04; Stop 11/28/18 at 13:03; Status DC Albumin Human 200 ml @ 200 mls/hr 1X PRN PRN IV Hypotension; Start 11/28/18 at 07:15; Stop 11/28/18 at 13:14; Status DC Acetaminophen (Tylenol) 500 mg 1X PRN PRN PO MILD PAIN / TEMP; Start 11/28/18 at 07:15; Stop 11/29/18 at 07:14; Status DC Diphenhydramine HCl (Benadryl) 25 mg 1X PRN PRN IV ITCHING; Start 11/28/18 at 07:15; Stop 11/29/18 at 07:14; Status DC Diphenhydramine HCl (Benadryl) 25 mg 1X PRN PRN IV ITCHING; Start 11/28/18 at 07:15; Stop 11/29/18 at 07:14; Status DC Sodium Chloride 1,000 ml @ 400 mls/hr Q2H30M PRN IV PATENCY; Start 11/28/18 at 07:04; Stop 11/28/18 at 19:03; Status DC Info (PHARMACY MONITORING -- do not chart) 1 each PRN DAILY PRN MC SEE COMMENTS ; Start 11/28/18 at 07:15 Propofol 20 ml @ As Directed STK-MED ONCE IV ; Start 11/28/18 at 08:23; Stop at 08:24; Status DC Lidocaine HCl (Lidocaine Pf 2% Vial) 5 ml STK-MED ONCE .ROUTE ; Start 11/28/18 at 08:23; Stop 11/28/18 at 08:24; Status DC Phenylephrine HCl (PHENYLEPHRINE in 0.9% NACL PF) 1 mg STK-MED ONCE IV ; Start 11/28/18 at 08:23; Stop 11/28/18 at 08:24; Status DC Dexamethasone Sodium Phosphate (Decadron) 20 mg STK-MED ONCE .ROUTE ; Start at 08:23; Stop 11/28/18 at 08:24; Status DC Famotidine (Pepcid Vial) 20 mg STK-MED ONCE .ROUTE ; Start 11/28/18 at 08:23; Stop 11/28/18 at 08:24; Status DC Ondansetron HCl (Zofran) 4 mg STK-MED ONCE .ROUTE ; Start 11/28/18 at 08:23; Stop 11/28/18 at 08:24; Status DC Silver Sulfadiazine (Silvadene) 25 ayaz STK-MED ONCE TP ; Start 11/28/18 at 07:36 ; Stop 11/28/18 at 08:37; Status DC Morphine Sulfate (Morphine Sulfate) 2 mg PRN Q2HR PRN IV MODERATE TO SEVERE PAIN; Start 11/28/18 at 09:15 Sevoflurane (Ultane) 30 ml STK-MED ONCE IH ; Start 11/28/18 at 09:41; Stop 11/28 at 09:42; Status DC Fentanyl Citrate (Fentanyl 2ml Vial) 100 mcg STK-MED ONCE .ROUTE ; Start at 10:12; Stop 11/28/18 at 10:13; Status DC Active Scripts Active Isosorbide Mononitrate Er (Isosorbide Mononitrate) 30 Mg Tab.er.24h 30 Mg PO DAILY 30 Days Reported Aspirin 325 Mg Tablet 1 Tab PO DAILY Coreg (Carvedilol) 3.125 Mg Tablet 3.125 Mg PO BIDWMEALS Magnesium (Magnesium Oxide) 400 Mg Capsule 400 Mg PO DAILY Levothyroxine Sodium 175 Mcg Tablet 175 Mcg PO DAILYAC Plavix (Clopidogrel Bisulfate) 75 Mg Tablet 75 Mg PO DAILY Calcium Carbonate 500 Mg Tablet 500 Mg PO BID Lipitor (Atorvastatin Calcium) 80 Mg Tablet 40 Mg PO HS Keppra (Levetiracetam) 1,000 Mg Tablet 1 Tab PO BID Endocet 10-325 Mg Tablet (Oxycodone Hcl/Acetaminophen) 1 Each Tablet 1 Tab PO QID Flovent 110MCG Hfa (Fluticasone Propionate) 12 Gm Aer.w.adap 2 Puff IH BID Zolpidem Tartrate 5 Mg Tablet 1 Tab PO QHS Mirapex (Pramipexole Di-Hcl) 0.25 Mg Tablet 1 Tab PO DAILY Tylenol (Acetaminophen) 325 Mg Tablet 650 Mg PO PRN Q6HRS PRN Famotidine 20 Mg Tablet 20 Mg PO HS Ventolin Hfa Inhaler (Albuterol Sulfate) 18 Gm Hfa.aer.ad 1 Puff INH Q6HRS PRN Vitals/I & O Vital Sign - Last 24 Hours 11/28/18 11/28/18 11/28/18 11/28/18 15:00 15:41 16:16 16:17 Temp 98.4 98.4 Pulse 87 87 Resp 17 B/P (MAP) 119/51 (73) 119/51 Pulse Ox 97 97 O2 Delivery Room Air Room Air Room Air O2 Flow Rate 2.0 11/28/18 11/28/18 11/28/18 11/28/18 19:00 20:00 20:41 21:11 Temp 99.1 99.1 Pulse 73 Resp 18 20 B/P (MAP) 105/51 (69) Pulse Ox 97 93 O2 Delivery Room Air Room Air Room Air Room Air 11/28/18 11/28/18 11/29/18 11/29/18 22:11 23:00 03:00 07:00 Temp 97.6 97.5 98.3 97.6 97.5 98.3 Pulse 86 75 72 Resp 20 18 18 18 B/P (MAP) 108/44 (65) 116/54 (74) 121/56 (77) Pulse Ox 94 94 97 O2 Delivery Room Air Room Air Room Air 11/29/18 11/29/18 11/29/18 11/29/18 07:05 08:00 08:42 08:42 Pulse 72 B/P (MAP) 121/56 Pulse Ox 87 O2 Delivery Room Air Room Air Room Air 11/29/18 11/29/18 11/29/18 11/29/18 08:43 09:32 11:00 12:26 Temp 98.4 98.4 Pulse 72 78 Resp 18 B/P (MAP) 121/56 112/58 (76) Pulse Ox 98 O2 Delivery Room Air Room Air Room Air Intake and Output 11/28/18 11/28/18 11/29/18 15:00 23:00 07:00 Intake Total 350 ml 120 ml 300 ml Output Total 200 ml Balance 150 ml 120 ml 300 ml ALEXANDR QUEZADA APRN Nov 29, 2018 13:12
--- NOTE | 2018-11-29 13:37 | NUR ---
Wound Care Pt seen for wound care follow up and wound vac application, per Vascular order. Pt now has an open TMA, tissue is beefy red, appears clean, with no odor or active bleeding noted. Biopad collagen placed into lateral side of wound and 1 piece of silver foam placed into wound bed, foam bridged up R medial lower leg. Vac showing strong seal at -125 mmHg continuous suction, pt tolerated well. Pt already has a home wound vac, when ready for discharge. Will f/u on Sunday for next vac change.
--- NOTE | 2018-11-29 13:39 | NUR ---
Due to the bleeding coming from the patient's wound this am, heparin will not be administered at 1400 by this music writer.
[2018-11-29 15:00] VITALS: BP 118/50
[2018-11-29] MEDS: VANCOMYCIN PER PHARMACY MC PRN (15:16)
[2018-11-29 19:00] VITALS: BP 127/52
[2018-11-29] MEDS: ATORVASTATIN CALCIUM 40 MG TABLET. PO SCH (21:27)
[2018-11-29] MEDS: ZOLPIDEM 5 MG TABLET. PO SCH (21:31)
[2018-11-29] MEDS: FAMOTIDINE 20 MG TABLET. PO SCH (21:31)
[2018-11-29 23:00] VITALS: BP 115/47
[2018-11-30 03:00] VITALS: BP 120/67
[2018-11-30] MEDS: HEPARIN for SUB-Q USE 5,000 UNIT/ML VIAL. SQ SCH ×3 (04:53→21:02)
--- NOTE | 2018-11-30 04:54 | NUR ---
Patient's heparin injections held this shift due to bleeding issue with wound through the day. Monitoring..
[2018-11-30 07:00] VITALS: BP 109/47
[2018-11-30] MEDS: BUDESONIDE 0.5 MG/2 ML NEBU. NEB SCH ×2 (07:56→18:08)
[2018-11-30] MEDS: CARVEDILOL 3.125 MG TABLET. PO SCH ×2 (08:00→16:41)
[2018-11-30] MEDS: LACTOBACILLUS RHAMNOSUS GG 1 CAPSULE. PO SCH ×2 (09:01→20:58)
[2018-11-30] MEDS: oxyCODONE/APAP 10/325 1 TAB TABLET PO SCH ×4 (09:02→20:58)
[2018-11-30] MEDS: MULTIVITAMIN with MINERAL TABLET. PO SCH (09:03)
[2018-11-30] MEDS: CALCIUM CARBONATE 500 MG TABLET PO SCH ×2 (09:04→20:58)
[2018-11-30] MEDS: MAGNESIUM OXIDE 400 MG TABLET PO SCH (09:04)
[2018-11-30] MEDS: VANCOMYCIN PER PHARMACY MC PRN (09:23)
[2018-11-30 09:59] LABS: ALBUMIN 2.1 g/dL (3.4-5.0); ALBUMIN/GLOBULIN RATIO 0.4 (1.0-1.7); CALCIUM 9.4 mg/dL (8.5-10.1); CREATININE 8.7 mg/dL (0.7-1.3); GFR 7.8; POTASSIUM 4.7 mmol/L (3.5-5.1); TOTAL BILIRUBIN 0.4 mg/dL (0.2-1.0); TOTAL PROTEIN 8.1 g/dL (6.4-8.2)
[2018-11-30 10:04] LABS: BASO # 0.1 x10^3/uL (0.0-0.2); BASO % 1 % (0-3); EOS # 0.2 x10^3/uL (0.0-0.7); EOS % 2 % (0-3); HEMATOCRIT 24.7 % (39.0-53.0); HEMOGLOBIN 7.9 g/dL (13.0-17.5); LYMPH # 1.4 x10^3/uL (1.0-4.8); LYMPH % 13 % (24-48); MEAN CORPUSCULAR HEMOGLOBIN 28 pg (25-35); MEAN CORPUSCULAR HGB CONC 32 g/dL (31-37); MEAN CORPUSCULAR VOLUME 88 fL (79-100); MONO # 1.2 x10^3/uL (0.0-1.1); MONO % 11 % (0-9); NEUT # 7.7 x10^3uL (1.8-7.7); NEUT % 73 % (31-73); PLATELET COUNT 306 x10^3/uL (140-400); RED CELL DISTRIBUTION WIDTH 16.5 % (11.5-14.5); WHITE BLOOD COUNT 10.6 x10^3/uL (4.0-11.0)
[2018-11-30 11:00] VITALS: BP 122/55
[2018-11-30] MEDS ORDERED: IV NORMAL SALINE 1000ML BAG 1,000 ML IV PRN ×2 (11:00)
--- NOTE | 2018-11-30 11:51 | PDOC ---
Infectious Disease Note Subjective Subjective Comfortable, denies pain/F/C/S Denies N/V/D ROS ROS per HPI otherwise neg Vital Sign Vital Signs Vital Signs Date Time Temp Pulse Resp B/P (MAP) Pulse Ox O2 Delivery O2 Flow Rate FiO2 11/30/18 11:00 98.7 82 18 122/55 (77) 94 Room Air 98.7 Physical Exam PHYSICAL EXAM GENERAL: Sitting upright in bed, alert, NAD HEENT: Oral cavity clear NECK: Supple LUNGS: Clear bilaterally. HEART: S1, S2. ABDOMEN: Soft, obese. Bowel sounds present. EXTREMITIES: Left BKA stump healed, RLE 1+ edema, wound vac in place. DERMATOLOGIC: Warm without generalized rash. NEUROLOGIC: Alert and oriented x 3. PIV looks okay. Shunt, left upper extremity looks. Labs Lab Laboratory Tests Test 11/29/18 16:47 11/29/18 20:51 11/30/18 07:23 11/30/18 08:50 Glucose (Fingerstick) 177 mg/dL (70-99) 194 mg/dL (70-99) 136 mg/dL (70-99) White Blood Count 10.6 x10^3/uL (4.0-11.0) Red Blood Count 2.80 x10^6/uL (4.30-5.70) Hemoglobin 7.9 g/dL (13.0-17.5) Hematocrit 24.7 % (39.0-53.0) Mean Corpuscular Volume 88 fL (79-100) Mean Corpuscular Hemoglobin 28 pg (25-35) Mean Corpuscular Hemoglobin Concent 32 g/dL (31-37) Red Cell Distribution Width 16.5 % (11.5-14.5) Platelet Count 306 x10^3/uL (140-400) Neutrophils (%) (Auto) 73 % (31-73) Lymphocytes (%) (Auto) 13 % (24-48) Monocytes (%) (Auto) 11 % (0-9) Eosinophils (%) (Auto) 2 % (0-3) Basophils (%) (Auto) 1 % (0-3) Neutrophils # (Auto) 7.7 x10^3uL (1.8-7.7) Lymphocytes # (Auto) 1.4 x10^3/uL (1.0-4.8) Monocytes # (Auto) 1.2 x10^3/uL (0.0-1.1) Eosinophils # (Auto) 0.2 x10^3/uL (0.0-0.7) Basophils # (Auto) 0.1 x10^3/uL (0.0-0.2) Sodium Level 137 mmol/L (136-145) Potassium Level 4.7 mmol/L (3.5-5.1) Chloride Level 98 mmol/L (98-107) Carbon Dioxide Level 31 mmol/L (21-32) Anion Gap 8 (6-14) Blood Urea Nitrogen 46 mg/dL (8-26) Creatinine 8.7 mg/dL (0.7-1.3) Estimated GFR (Cockcroft-Gault) 7.8 BUN/Creatinine Ratio 5 (6-20) Glucose Level 153 mg/dL (70-99) Calcium Level 9.4 mg/dL (8.5-10.1) Total Bilirubin 0.4 mg/dL (0.2-1.0) Aspartate Amino Transf (AST/SGOT) 21 U/L (15-37) Alanine Aminotransferase (ALT/SGPT) 10 U/L (16-63) Alkaline Phosphatase 71 U/L (46-116) Total Protein 8.1 g/dL (6.4-8.2) Albumin 2.1 g/dL (3.4-5.0) Albumin/Globulin Ratio 0.4 (1.0-1.7) Test 11/30/18 11:31 Glucose (Fingerstick) 173 mg/dL (70-99) Micro 11/25/18 Blood Culture - Preliminary, Resulted NO GROWTH AFTER 4 DAYS ANAEROBIC-AEROBIC CULTURE PENDING ANAEROBIC RES 1 PENDING AEROBIC CULT PENDING AEROBIC RES 1 PENDING GRAM STAIN Final Final report GRAM STAIN RES 1 Final Comment Rare white blood cells. GRAM STAIN RES 2 Final Gram positive cocci Objective Assessment Right foot infection with 2nd and 3rd toe infection with necrosis s/p amputation on 11/28. GPC RLE Cellulitis h/o recent fifth and fourth toe amputation sites with osteomyelitis with deep tissue infection with cultures positive for Peptostreptococcus and Veillonella, treated with IV meropenem, which he completed on 11/10/[address] with wound [address]AC in place. Fever, improved Leukocytosis, improved End-stage renal disease, on hemodialysis. Diabetes mellitus with peripheral neuropathy. Peripheral vascular disease. PENICILLIN allergy, has tolerated meropenem well. Right third toe proximal phalanx fracture, new. Plan Plan of Care Cont vanc and Merrem Trough 18.5 s/p levofloxacin Probiotic wound vac/care f/u wound cultures In HD and doing ok f/u cults Attending Co-Sign Attending Co-Sign The patient was seen and interviewed as well as examined at the bedside. The chart was reviewed. The case was discussed. Agree with the plan of care. ONESIMO BREAUX APRN Nov 30, 2018 11:51 JUAN ANTONIO CHASE MD Nov 30, 2018 15:13
--- NOTE | 2018-11-30 13:16 | PDOC ---
PROGRESS NOTES Subjective Subjective SEEN IN FOLLOW UP OF ESRD Objective Objective Vital Signs Date Time Temp Pulse Resp B/P (MAP) Pulse Ox O2 Delivery O2 Flow Rate FiO2 11/30/18 11:00 98.7 82 18 122/55 (77) 94 Room Air 98.7 11/28/18 15:00 2.0 Intake and Output 11/30/18 07:00 Intake Total 760 ml Output Total 40 ml Balance 720 ml Intake Oral 760 ml Output Urine Total 40 ml # Voids 1 Physical Exam Abdomen: Normal bowel sounds, Soft, No tenderness, No hepatosplenomegaly, No masses Heart: Regular rate, Normal S1, Normal S2, No murmurs, Gallops Extremities: No clubbing, No cyanosis, No edema, Normal pulses, No tenderness/ swelling General: Alert, Oriented X3, Cooperative, No acute distress Lungs: Clear to auscultation Psych/Mental Status: Mental status NL, Mood NL Diagnosis RENAL FAILURE: ESRD Assessment Assessment Problems Medical Problems: (1) Acute respiratory distress Status: Acute (2) Diabetic infection of right foot Status: Acute (3) Fever Status: Acute (4) HCAP (healthcare-associated pneumonia) Status: Acute (5) History of left below knee amputation Status: Acute (6) Sepsis Status: Acute (7) Symptomatic anemia Status: Acute (8) Toe fracture, right Status: Acute Plan Plan of Care SEEN ON DIALYSIS AND TOLERATING WELL Comment Review of Relevant I have reviewed the following items lila (where applicable) has been applied. Labs Laboratory Tests Test 11/28/18 16:18 11/28/18 20:49 11/29/18 07:11 11/29/18 07:54 Glucose (Fingerstick) 169 mg/dL (70-99) 214 mg/dL (70-99) 165 mg/dL (70-99) White Blood Count 17.6 x10^3/uL (4.0-11.0) Red Blood Count 2.69 x10^6/uL (4.30-5.70) Hemoglobin 7.4 g/dL (13.0-17.5) Hematocrit 23.8 % (39.0-53.0) Mean Corpuscular Volume 88 fL (79-100) Mean Corpuscular Hemoglobin 28 pg (25-35) Mean Corpuscular Hemoglobin Concent 31 g/dL (31-37) Red Cell Distribution Width 16.4 % (11.5-14.5) Platelet Count 263 x10^3/uL (140-400) Neutrophils (%) (Auto) 86 % (31-73) Lymphocytes (%) (Auto) 5 % (24-48) Monocytes (%) (Auto) 9 % (0-9) Eosinophils (%) (Auto) 0 % (0-3) Basophils (%) (Auto) 0 % (0-3) Neutrophils # (Auto) 15.1 x10^3uL (1.8-7.7) Lymphocytes # (Auto) 0.9 x10^3/uL (1.0-4.8) Monocytes # (Auto) 1.6 x10^3/uL (0.0-1.1) Eosinophils # (Auto) 0.0 x10^3/uL (0.0-0.7) Basophils # (Auto) 0.1 x10^3/uL (0.0-0.2) Sodium Level 136 mmol/L (136-145) Potassium Level 4.5 mmol/L (3.5-5.1) Chloride Level 98 mmol/L (98-107) Carbon Dioxide Level 29 mmol/L (21-32) Anion Gap 9 (6-14) Blood Urea Nitrogen 37 mg/dL (8-26) Creatinine 6.8 mg/dL (0.7-1.3) Estimated GFR (Cockcroft-Gault) 10.4 Glucose Level 174 mg/dL (70-99) Calcium Level 9.5 mg/dL (8.5-10.1) Phosphorus Level 5.3 mg/dL (2.6-4.7) Albumin 2.2 g/dL (3.4-5.0) Test 11/29/18 11:05 11/29/18 16:47 11/29/18 20:51 11/30/18 07:23 Glucose (Fingerstick) 173 mg/dL (70-99) 177 mg/dL (70-99) 194 mg/dL (70-99) 136 mg/dL (70-99) Test 11/30/18 08:50 11/30/18 11:31 White Blood Count 10.6 x10^3/uL (4.0-11.0) Red Blood Count 2.80 x10^6/uL (4.30-5.70) Hemoglobin 7.9 g/dL (13.0-17.5) Hematocrit 24.7 % (39.0-53.0) Mean Corpuscular Volume 88 fL (79-100) Mean Corpuscular Hemoglobin 28 pg (25-35) Mean Corpuscular Hemoglobin Concent 32 g/dL (31-37) Red Cell Distribution Width 16.5 % (11.5-14.5) Platelet Count 306 x10^3/uL (140-400) Neutrophils (%) (Auto) 73 % (31-73) Lymphocytes (%) (Auto) 13 % (24-48) Monocytes (%) (Auto) 11 % (0-9) Eosinophils (%) (Auto) 2 % (0-3) Basophils (%) (Auto) 1 % (0-3) Neutrophils # (Auto) 7.7 x10^3uL (1.8-7.7) Lymphocytes # (Auto) 1.4 x10^3/uL (1.0-4.8) Monocytes # (Auto) 1.2 x10^3/uL (0.0-1.1) Eosinophils # (Auto) 0.2 x10^3/uL (0.0-0.7) Basophils # (Auto) 0.1 x10^3/uL (0.0-0.2) Sodium Level 137 mmol/L (136-145) Potassium Level 4.7 mmol/L (3.5-5.1) Chloride Level 98 mmol/L (98-107) Carbon Dioxide Level 31 mmol/L (21-32) Anion Gap 8 (6-14) Blood Urea Nitrogen 46 mg/dL (8-26) Creatinine 8.7 mg/dL (0.7-1.3) Estimated GFR (Cockcroft-Gault) 7.8 BUN/Creatinine Ratio 5 (6-20) Glucose Level 153 mg/dL (70-99) Calcium Level 9.4 mg/dL (8.5-10.1) Total Bilirubin 0.4 mg/dL (0.2-1.0) Aspartate Amino Transf (AST/SGOT) 21 U/L (15-37) Alanine Aminotransferase (ALT/SGPT) 10 U/L (16-63) Alkaline Phosphatase 71 U/L (46-116) Total Protein 8.1 g/dL (6.4-8.2) Albumin 2.1 g/dL (3.4-5.0) Albumin/Globulin Ratio 0.4 (1.0-1.7) Glucose (Fingerstick) 173 mg/dL (70-99) Laboratory Tests Test 11/29/18 16:47 11/29/18 20:51 11/30/18 07:23 11/30/18 08:50 Glucose (Fingerstick) 177 mg/dL (70-99) 194 mg/dL (70-99) 136 mg/dL (70-99) White Blood Count 10.6 x10^3/uL (4.0-11.0) Red Blood Count 2.80 x10^6/uL (4.30-5.70) Hemoglobin 7.9 g/dL (13.0-17.5) Hematocrit 24.7 % (39.0-53.0) Mean Corpuscular Volume 88 fL (79-100) Mean Corpuscular Hemoglobin 28 pg (25-35) Mean Corpuscular Hemoglobin Concent 32 g/dL (31-37) Red Cell Distribution Width 16.5 % (11.5-14.5) Platelet Count 306 x10^3/uL (140-400) Neutrophils (%) (Auto) 73 % (31-73) Lymphocytes (%) (Auto) 13 % (24-48) Monocytes (%) (Auto) 11 % (0-9) Eosinophils (%) (Auto) 2 % (0-3) Basophils (%) (Auto) 1 % (0-3) Neutrophils # (Auto) 7.7 x10^3uL (1.8-7.7) Lymphocytes # (Auto) 1.4 x10^3/uL (1.0-4.8) Monocytes # (Auto) 1.2 x10^3/uL (0.0-1.1) Eosinophils # (Auto) 0.2 x10^3/uL (0.0-0.7) Basophils # (Auto) 0.1 x10^3/uL (0.0-0.2) Sodium Level 137 mmol/L (136-145) Potassium Level 4.7 mmol/L (3.5-5.1) Chloride Level 98 mmol/L (98-107) Carbon Dioxide Level 31 mmol/L (21-32) Anion Gap 8 (6-14) Blood Urea Nitrogen 46 mg/dL (8-26) Creatinine 8.7 mg/dL (0.7-1.3) Estimated GFR (Cockcroft-Gault) 7.8 BUN/Creatinine Ratio 5 (6-20) Glucose Level 153 mg/dL (70-99) Calcium Level 9.4 mg/dL (8.5-10.1) Total Bilirubin 0.4 mg/dL (0.2-1.0) Aspartate Amino Transf (AST/SGOT) 21 U/L (15-37) Alanine Aminotransferase (ALT/SGPT) 10 U/L (16-63) Alkaline Phosphatase 71 U/L (46-116) Total Protein 8.1 g/dL (6.4-8.2) Albumin 2.1 g/dL (3.4-5.0) Albumin/Globulin Ratio 0.4 (1.0-1.7) Test 11/30/18 11:31 Glucose (Fingerstick) 173 mg/dL (70-99) Microbiology 11/25/18 Blood Culture - Preliminary, Resulted NO GROWTH AFTER 4 DAYS 11/28/18 Anaerobic/Aerobic Culture, Resulted Pending 11/28/18 Anaerobic Culture Result 1 (BLAKE), Resulted Pending 11/28/18 Aerobic Culture, Resulted Pending 11/28/18 Aerobic Culture Result 1 (BLAKE), Resulted Pending 11/28/18 Gram Stain - Final, Resulted 11/28/18 Gram Stain Result 1 (BLAKE) - Final, Resulted 11/28/18 Gram Stain Result 2 (BLAKE) - Final, Resulted Medications Current Medications Acetaminophen (Tylenol) 1,000 mg 1X ONCE PO Last administered on 11/25/18at 14: 04; Start 11/25/18 at 12:45; Stop 11/25/18 at 12:48; Status DC Sodium Chloride 500 ml @ 500 mls/hr 1X ONCE IV Last administered on at 14:00; Start 11/25/18 at 12:45; Stop 11/25/18 at 13:44; Status DC Sodium Chloride 1,000 ml @ 1,000 mls/hr 1X ONCE IV Last administered on at 14:39; Start 11/25/18 at 14:30; Stop 11/25/18 at 15:29; Status DC Albuterol/ Ipratropium (Duoneb) 3 ml 1X ONCE NEB Last administered on at 14:30; Start 11/25/18 at 14:30; Stop 11/25/18 at 14:31; Status DC Vancomycin HCl 2 gm/Sodium Chloride 500 ml @ 250 mls/hr 1X ONCE IV Last administered on 11/25/18at 14:30; Start 11/25/18 at 14:30; Stop 11/25/18 at 16:29 ; Status DC Levofloxacin/ Dextrose 150 ml @ 100 mls/hr 1X ONCE IV Last administered on at 14:39; Start 11/25/18 at 14:30; Stop 11/25/18 at 15:59; Status DC Acetaminophen/ Hydrocodone Bitart (Lortab 7.5/325) 1 tab PRN Q4HRS PRN PO PAIN Last administered on 11/29/18at 12:26; Start 11/25/18 at 17:15 Sodium Chloride (Normal Saline Flush) 3 ml QSHIFT PRN IV AFTER MEDS AND BLOOD DRAWS; Start 11/25/18 at 17:30 Vancomycin HCl (Vanco Per Pharmacy) 1 each PRN DAILY PRN MC SEE COMMENTS Last administered on 11/30/18at 09:23; Start 11/25/18 at 17:30 Levofloxacin/ Dextrose (Levaquin Per Pharmacy) 1 each PRN DAILY PRN MC SEE COMMENTS; Start 11/25/18 at 17:30; Stop 11/26/18 at 09:31; Status DC Levofloxacin/ Dextrose 100 ml @ 100 mls/hr Q48H IV ; Start 11/27/18 at 14:00; Stop 11/27/18 at 14:00; Status DC Heparin Sodium (Porcine) (Heparin Sodium) 5,000 unit Q8HRS SQ Last administered on 11/29/18at 06:17; Start 11/25/18 at 22:00 Acetaminophen (Tylenol) 650 mg PRN Q6HRS PRN PO FEVER Last administered on 11/28at 04:45; Start 11/25/18 at 17:45 Aspirin ([place] Aspirin) 325 mg DAILY PO Last administered on 11/29/18at 08:43; Start 11/26/18 at 09:00 Calcium Carbonate/ Glycine (Oscal) 500 mg BID PO Last administered on 09:04; Start 11/25/18 at 21:00 Carvedilol (Coreg) 3.125 mg BIDWMEALS PO Last administered on 11/29/18 17:07; Start 11/25/18 at 18:30 Clopidogrel Bisulfate (Plavix) 75 mg DAILY PO Last administered on 11/29/18 08 :43; Start 11/26/18 at 09:00 Famotidine (Pepcid) 20 mg HS PO Last administered on 11/25/18 20:34; Start at 21:00; Stop 11/26/18 at 08:53; Status DC Isosorbide Mononitrate (Imdur) 30 mg DAILY PO Last administered on 11/29/18 08 :42; Start 11/26/18 at 09:00 Levothyroxine Sodium (Synthroid) 175 mcg DAILYAC PO Last administered on 06:13; Start 11/26/18 at 07:30 Oxycodone/ Acetaminophen (Percocet 10/325) 1 tab QID PO Last administered on 09:02; Start 11/25/18 at 21:00 Zolpidem Tartrate (Ambien) 5 mg QHS PO Last administered on 11/29/18 21:31; Start 11/25/18 at 21:00 Albuterol Sulfate (Ventolin Neb Soln) 2.5 mg PRN Q6HRS PRN NEB SHORTNESS OF BREATH Last administered on 11/28/18 15:39; Start 11/25/18 at 17:45 Atorvastatin Calcium (Lipitor) 40 mg QHS PO Last administered on 11/29/18 21: 27; Start 11/25/18 at 21:00 Non-Formulary Medication (Fluticasone Propionate (Flovent 110MCG Hfa)) 2 puff BID IH ; Start 11/25/18 at 21:00; Status UNV Levetiracetam (Keppra) 1,000 mg BID PO Last administered on 11/29/18 21:27; Start 11/25/18 at 21:00 Magnesium Oxide (Magnesium Oxide) 400 mg DAILY PO Last administered on 09:04; Start 11/26/18 at 09:00 Pramipexole Dihydrochloride (miraPEX) 0.25 mg DAILY PO Last administered on at 08:41; Start 11/26/18 at 09:00 Budesonide (Pulmicort) 0.5 mg RTBID NEB Last administered on 11/30/18at 07:56; Start 11/25/18 at 20:00 Vancomycin HCl (Vancomycin Random Level) 1 each 1X ONCE MC Last administered on 11/27/18at 06:00; Start 11/27/18 at 06:00; Stop 11/27/18 at 06:01; Status DC Midazolam HCl (Versed) 5 mg STK-MED ONCE .ROUTE ; Start 11/25/18 at 17:58; Stop 11/25/18 at 17:59; Status DC Lactobacillus Rhamnosus (Culturelle) 1 cap BID PO Last administered on at 09:01; Start 11/26/18 at 09:00 Midazolam HCl (Versed) 5 mg STK-MED ONCE .ROUTE ; Start 11/25/18 at 18:00; Stop 11/26/18 at 07:42; Status DC Famotidine (Pepcid) 20 mg Q48H PO Last administered on 11/29/18at 21:31; Start 11/27/18 at 21:00 Meropenem 500 mg/ Sodium Chloride 50 ml @ 100 mls/hr DAILY IV Last administered on 11/28/18at 09:28; Start 11/26/18 at 10:00 Sodium Chloride 1,000 ml @ 1,000 mls/hr Q1H PRN IV hypotension; Start 11/26/18 at 14:13; Stop 11/26/18 at 20:12; Status DC Albumin Human 200 ml @ 200 mls/hr 1X PRN PRN IV Hypotension; Start 11/26/18 at 14:15; Stop 11/26/18 at 20:14; Status DC Acetaminophen (Tylenol) 500 mg 1X PRN PRN PO MILD PAIN / TEMP; Start 11/26/18 at 14:15; Stop 11/27/18 at 14:14; Status DC Diphenhydramine HCl (Benadryl) 25 mg 1X PRN PRN IV ITCHING; Start 11/26/18 at 14:15; Stop 11/27/18 at 14:14; Status DC Diphenhydramine HCl (Benadryl) 25 mg 1X PRN PRN IV ITCHING; Start 11/26/18 at 14:15; Stop 11/27/18 at 14:14; Status DC Sodium Chloride 1,000 ml @ 400 mls/hr Q2H30M PRN IV PATENCY; Start 11/26/18 at 14:13; Stop 11/27/18 at 02:12; Status DC Info (PHARMACY MONITORING -- do not chart) 1 each PRN DAILY PRN MC SEE COMMENTS ; Start 11/26/18 at 14:15; Stop 11/30/18 at 09:14; Status DC Multivitamins (Thera M Plus) 1 tab DAILY PO Last administered on 11/30/18at 09: 03; Start 11/27/18 at 09:00 Darbepoetin Jace (Aranesp) 100 mcg WEEKLYHS SQ Last administered on 11/26/18at 20:53; Start 11/26/18 at 21:00 Lidocaine HCl 48 ml/Sodium Bicarbonate 12 meq/Miscellaneous 60 ml @ 60 mls/hr 1X ONCE ID ; Start 11/28/18 at 06:00; Stop 11/28/18 at 06:59; Status DC Ondansetron HCl (Zofran) 4 mg PRN Q6HRS PRN IV NAUSEA/VOMITING; Start 11/28/18 at 07:00; Stop 11/28/18 at 20:00; Status DC Fentanyl Citrate (Fentanyl 2ml Vial) 25 mcg PRN Q5MIN PRN IV MILD PAIN; Start 11/28/18 at 07:00; Stop 11/28/18 at 20:00; Status DC Fentanyl Citrate (Fentanyl 2ml Vial) 50 mcg PRN Q5MIN PRN IV MODERATE TO SEVERE PAIN Last administered on 11/28/18at 10:14; Start 11/28/18 at 07:00; Stop 11/28/18 at 20:00; Status DC Morphine Sulfate (Morphine Sulfate) 1 mg PRN Q10MIN PRN IV SEVERE PAIN; Start 11/28/18 at 07:00; Stop 11/28/18 at 20:00; Status DC Ringer's Solution 1,000 ml @ 30 mls/hr Q24H IV ; Start 11/28/18 at 07:00; Stop 11/28/18 at 18:59; Status DC Lidocaine HCl (Xylocaine-Mpf 1% 2ml Vial) 2 ml PRN 1X PRN ID PRIOR TO IV START ; Start 11/28/18 at 07:00; Stop 11/28/18 at 20:00; Status DC Hydromorphone HCl (Dilaudid) 0.5 mg PRN Q10MIN PRN IV SEV PAIN, Second choice; Start 11/28/18 at 07:00; Stop 11/28/18 at 20:00; Status DC Prochlorperazine Edisylate (Compazine) 5 mg PACU PRN PRN IV NAUSEA, MRX1; Start 11/28/18 at 07:00; Stop 11/28/18 at 20:00; Status DC Vancomycin HCl 500 mg/Sodium Chloride 100 ml @ 100 mls/hr 1X ONCE IV Last administered on 11/27/18at 13:29; Start 11/27/18 at 13:00; Stop 11/27/18 at 13:59 ; Status DC Vancomycin HCl 500 mg/Sodium Chloride 100 ml @ 100 mls/hr QTUTHSA IV Last administered on 11/28/18at 16:18; Start 11/28/18 at 16:00 Sodium Chloride 1,000 ml @ 1,000 mls/hr Q1H PRN IV hypotension; Start 11/28/18 at 07:04; Stop 11/28/18 at 13:03; Status DC Albumin Human 200 ml @ 200 mls/hr 1X PRN PRN IV Hypotension; Start 11/28/18 at 07:15; Stop 11/28/18 at 13:14; Status DC Acetaminophen (Tylenol) 500 mg 1X PRN PRN PO MILD PAIN / TEMP; Start 11/28/18 at 07:15; Stop 11/29/18 at 07:14; Status DC Diphenhydramine HCl (Benadryl) 25 mg 1X PRN PRN IV ITCHING; Start 11/28/18 at 07:15; Stop 11/29/18 at 07:14; Status DC Diphenhydramine HCl (Benadryl) 25 mg 1X PRN PRN IV ITCHING; Start 11/28/18 at 07:15; Stop 11/29/18 at 07:14; Status DC Sodium Chloride 1,000 ml @ 400 mls/hr Q2H30M PRN IV PATENCY; Start 11/28/18 at 07:04; Stop 11/28/18 at 19:03; Status DC Info (PHARMACY MONITORING -- do not chart) 1 each PRN DAILY PRN MC SEE COMMENTS ; Start 11/28/18 at 07:15 Propofol 20 ml @ As Directed STK-MED ONCE IV ; Start 11/28/18 at 08:23; Stop at 08:24; Status DC Lidocaine HCl (Lidocaine Pf 2% Vial) 5 ml STK-MED ONCE .ROUTE ; Start 11/28/18 at 08:23; Stop 11/28/18 at 08:24; Status DC Phenylephrine HCl (PHENYLEPHRINE in 0.9% NACL PF) 1 mg STK-MED ONCE IV ; Start 11/28/18 at 08:23; Stop 11/28/18 at 08:24; Status DC Dexamethasone Sodium Phosphate (Decadron) 20 mg STK-MED ONCE .ROUTE ; Start at 08:23; Stop 11/28/18 at 08:24; Status DC Famotidine (Pepcid Vial) 20 mg STK-MED ONCE .ROUTE ; Start 11/28/18 at 08:23; Stop 11/28/18 at 08:24; Status DC Ondansetron HCl (Zofran) 4 mg STK-MED ONCE .ROUTE ; Start 11/28/18 at 08:23; Stop 11/28/18 at 08:24; Status DC Silver Sulfadiazine (Silvadene) 25 ayaz STK-MED ONCE TP ; Start 11/28/18 at 07:36 ; Stop 11/28/18 at 08:37; Status DC Morphine Sulfate (Morphine Sulfate) 2 mg PRN Q2HR PRN IV MODERATE TO SEVERE PAIN; Start 11/28/18 at 09:15 Sevoflurane (Ultane) 30 ml STK-MED ONCE IH ; Start 11/28/18 at 09:41; Stop 11/28 at 09:42; Status DC Fentanyl Citrate (Fentanyl 2ml Vial) 100 mcg STK-MED ONCE .ROUTE ; Start at 10:12; Stop 11/28/18 at 10:13; Status DC Active Scripts Active Isosorbide Mononitrate Er (Isosorbide Mononitrate) 30 Mg Tab.er.24h 30 Mg PO DAILY 30 Days Reported Aspirin 325 Mg Tablet 1 Tab PO DAILY Coreg (Carvedilol) 3.125 Mg Tablet 3.125 Mg PO BIDWMEALS Magnesium (Magnesium Oxide) 400 Mg Capsule 400 Mg PO DAILY Levothyroxine Sodium 175 Mcg Tablet 175 Mcg PO DAILYAC Plavix (Clopidogrel Bisulfate) 75 Mg Tablet 75 Mg PO DAILY Calcium Carbonate 500 Mg Tablet 500 Mg PO BID Lipitor (Atorvastatin Calcium) 80 Mg Tablet 40 Mg PO HS Keppra (Levetiracetam) 1,000 Mg Tablet 1 Tab PO BID Endocet 10-325 Mg Tablet (Oxycodone Hcl/Acetaminophen) 1 Each Tablet 1 Tab PO QID Flovent 110MCG Hfa (Fluticasone Propionate) 12 Gm Aer.w.adap 2 Puff IH BID Zolpidem Tartrate 5 Mg Tablet 1 Tab PO QHS Mirapex (Pramipexole Di-Hcl) 0.25 Mg Tablet 1 Tab PO DAILY Tylenol (Acetaminophen) 325 Mg Tablet 650 Mg PO PRN Q6HRS PRN Famotidine 20 Mg Tablet 20 Mg PO HS Ventolin Hfa Inhaler (Albuterol Sulfate) 18 Gm Hfa.aer.ad 1 Puff INH Q6HRS PRN Vitals/I & O Vital Sign - Last 24 Hours 11/29/18 11/29/18 11/29/18 11/29/18 15:00 17:07 17:08 18:03 Temp 98.3 98.3 Pulse 71 71 Resp 18 B/P (MAP) 118/50 (72) 118/50 Pulse Ox 98 O2 Delivery Room Air Room Air Room Air 11/29/18 11/29/18 11/29/18 11/29/18 19:00 20:19 20:20 21:31 Temp 97.5 97.5 Pulse 72 Resp 16 20 B/P (MAP) 127/52 (77) Pulse Ox 97 100 O2 Delivery Room Air Room Air Room Air Room Air 11/29/18 11/30/18 11/30/18 11/30/18 23:00 03:00 07:00 07:58 Temp 97.6 97.5 97.8 97.6 97.5 97.8 Pulse 73 76 74 Resp 16 16 18 B/P (MAP) 115/47 (69) 120/67 (84) 109/47 (67) Pulse Ox 91 95 97 O2 Delivery Room Air Room Air Room Air Room Air 11/30/18 11/30/18 09:02 11:00 Temp 98.7 98.7 Pulse 82 Resp 20 18 B/P (MAP) 122/55 (77) Pulse Ox 94 O2 Delivery Room Air Room Air Intake and Output 11/29/18 11/29/18 11/30/18 15:00 23:00 07:00 Intake Total 200 ml 560 ml Output Total 40 ml Balance 200 ml 520 ml RANJAN ROMERO MD Nov 30, 2018 13:16
--- NOTE | 2018-11-30 13:50 | PDOC ---
PROGRESS NOTES Chief Complaint Chief Complaint RT 2nd and 3rd toe pain, fracture of rt 3rd toe RT foot infection history of recent fifth and fourth toe amputation sites with OM treated with IV meropenem, completed on 11/10/[address] with wound [address] in place. Fever esrd on hd H/O noncompliance End-stage renal disease, on hemodialysis. Diabetes mellitus with peripheral neuropathy. Peripheral vascular disease. 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 The patient is status post open fourth and fifth ray amputation. DESCRIPTION OF PROCEDURE: The patient was given general anesthetic, prepped and draped in sterile fashion. Elliptical incision was utilized to encompass the base of the second and third toe. Soft tissue divided sharply. The bones were transected proximal to the metatarsophalangeal joint and the digits of metatarsal heads were removed. There was purulent material which transitions over towards the first metatarsophalangeal joint, involving the soft tissues, both on the dorsal aspect and plantar aspect of this foot. Because of the extension of the soft tissue infection, it was felt that first metatarsal head needed to be resected as well. He already had previous digit tip amputation. The incision was then extended medially, encompassing the first metatarsophalangeal joint. The metatarsal shaft was transected. The sesamoid bone was removed. Hemostasis achieved with cautery. Additional proximal portions of the second and third metatarsal shafts were removed with a rongeur as well as portions of the first metatarsal shaft. History of Present Illness History of Present Illness 53 year old with hx of Noncompliance, ESRD, on dialysis, AFib, anxiety, asthma , coronary artery disease, CHF, stroke, diabetes, GERD, hypertension, hyperlipidemia, myocardial infarction, TIA, peripheral vascular disease, morbid obesity, left arm fistula, right fourth and fifth toe amputations, left below the knee amputation, scrotal surgery, cardiac stents recent admission in Sep for volume overload for missed HD who presents to the ED with 4 day hx of cough sob, and fever of 103. patient missed HD sessions. patient in wound clinic 11/25 for dressing changes and found to have fever so sent directly to ED for further evaluation. fever of 102 in ED. BP stable, normal lactate. cultures drawn and concern for infiltrate in lung. started on Vanc and Levaquin and admitted to ED. 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 Plan: continue abx 2 and 3rd toe amputation 11/28 wound care following dialysis per nephro 11/28 42 min pt exam, chart review , pt exam, > 50% of time spent with exam, chart review, pt care coordination Vitals Vitals Vital Signs Date Time Temp Pulse Resp B/P (MAP) Pulse Ox O2 Delivery O2 Flow Rate FiO2 11/30/18 11:00 98.7 82 18 122/55 (77) 94 Room Air 98.7 Physical Exam Physical Exam GENERAL: Sitting upright in bed, alert, NAD HEENT: Oral cavity clear NECK: Supple LUNGS: Clear bilaterally. HEART: S1, S2. ABDOMEN: Soft, obese. Bowel sounds present. EXTREMITIES: Left BKA stump healed, RLE 1+ edema, wound vac in place. DERMATOLOGIC: Warm without generalized rash. NEUROLOGIC: Alert and oriented x 3. PIV looks okay. Shunt, left upper extremity looks. General: Alert, Oriented X3, Cooperative, No acute distress Heart: Regular rate, Normal S1, Normal S2, No murmurs, Gallops Lungs: Clear Abdomen: Normal bowel sounds, Soft, No tenderness, No hepatosplenomegaly, No masses Extremities: No clubbing, No cyanosis, No edema, Normal pulses, No tenderness/ swelling Skin: Other (Right 2nd MTP joint swollen) Labs LABS PATIENT: BHAVYA WILKES ACCT: [id number] LOC: [address] [place] [address] U : [id number] AGE/SX: 53/M ROOM: 530 REG : 11/25/[address]: GOMEZ SUMNER MD : 1965 BED: 1 DIS : STATUS: ADM IN TLOC: SPEC #: [id number] ELDER: 11/28/18 STATUS: RES REQ #: [id number] RECD: 11/28/[address] [facility] [address]: GOMEZ SUMNER MD SOURCE: FOOT ENTR: 11/28/18 [facility] [address]: MARIA ISABEL LOPEZ DO [facility]: MAIRA HACKETT MD, ARUNDHATI S MD NAIR, VENU S MD ORDERED: ANAER/AEROB/GS Procedure Result ANAEROBIC-AEROBIC CULTURE PENDING ANAEROBIC RES 1 PENDING AEROBIC CULT PENDING AEROBIC RES 1 PENDING GRAM STAIN Final Final report GRAM STAIN RES 1 Final Comment Rare white blood cells. GRAM STAIN RES 2 Final Gram positive cocci Rare seen Performed at: - [address], [place], [place] [id number] Print Controller: FRANZT Bueno MD, Phone: [phone] Laboratory Tests Test 11/29/18 16:47 11/29/18 20:51 11/30/18 07:23 11/30/18 08:50 Glucose (Fingerstick) 177 mg/dL (70-99) 194 mg/dL (70-99) 136 mg/dL (70-99) White Blood Count 10.6 x10^3/uL (4.0-11.0) Red Blood Count 2.80 x10^6/uL (4.30-5.70) Hemoglobin 7.9 g/dL (13.0-17.5) Hematocrit 24.7 % (39.0-53.0) Mean Corpuscular Volume 88 fL (79-100) Mean Corpuscular Hemoglobin 28 pg (25-35) Mean Corpuscular Hemoglobin Concent 32 g/dL (31-37) Red Cell Distribution Width 16.5 % (11.5-14.5) Platelet Count 306 x10^3/uL (140-400) Neutrophils (%) (Auto) 73 % (31-73) Lymphocytes (%) (Auto) 13 % (24-48) Monocytes (%) (Auto) 11 % (0-9) Eosinophils (%) (Auto) 2 % (0-3) Basophils (%) (Auto) 1 % (0-3) Neutrophils # (Auto) 7.7 x10^3uL (1.8-7.7) Lymphocytes # (Auto) 1.4 x10^3/uL (1.0-4.8) Monocytes # (Auto) 1.2 x10^3/uL (0.0-1.1) Eosinophils # (Auto) 0.2 x10^3/uL (0.0-0.7) Basophils # (Auto) 0.1 x10^3/uL (0.0-0.2) Sodium Level 137 mmol/L (136-145) Potassium Level 4.7 mmol/L (3.5-5.1) Chloride Level 98 mmol/L (98-107) Carbon Dioxide Level 31 mmol/L (21-32) Anion Gap 8 (6-14) Blood Urea Nitrogen 46 mg/dL (8-26) Creatinine 8.7 mg/dL (0.7-1.3) Estimated GFR (Cockcroft-Gault) 7.8 BUN/Creatinine Ratio 5 (6-20) Glucose Level 153 mg/dL (70-99) Calcium Level 9.4 mg/dL (8.5-10.1) Total Bilirubin 0.4 mg/dL (0.2-1.0) Aspartate Amino Transf (AST/SGOT) 21 U/L (15-37) Alanine Aminotransferase (ALT/SGPT) 10 U/L (16-63) Alkaline Phosphatase 71 U/L (46-116) Total Protein 8.1 g/dL (6.4-8.2) Albumin 2.1 g/dL (3.4-5.0) Albumin/Globulin Ratio 0.4 (1.0-1.7) Test 11/30/18 11:31 Glucose (Fingerstick) 173 mg/dL (70-99) Assessment and Plan Assessmemt and Plan Problems Medical Problems: (1) Acute respiratory distress Status: Acute (2) Diabetic infection of right foot Status: Acute (3) Fever Status: Acute (4) HCAP (healthcare-associated pneumonia) Status: Acute (5) History of left below knee amputation Status: Acute (6) Sepsis Status: Acute (7) Symptomatic anemia Status: Acute (8) Toe fracture, right Status: Acute Comment Review of Relevant I have reviewed the following items lila (where applicable) has been applied. Labs Laboratory Tests Test 11/28/18 16:18 11/28/18 20:49 11/29/18 07:11 11/29/18 07:54 Glucose (Fingerstick) 169 mg/dL (70-99) 214 mg/dL (70-99) 165 mg/dL (70-99) White Blood Count 17.6 x10^3/uL (4.0-11.0) Red Blood Count 2.69 x10^6/uL (4.30-5.70) Hemoglobin 7.4 g/dL (13.0-17.5) Hematocrit 23.8 % (39.0-53.0) Mean Corpuscular Volume 88 fL (79-100) Mean Corpuscular Hemoglobin 28 pg (25-35) Mean Corpuscular Hemoglobin Concent 31 g/dL (31-37) Red Cell Distribution Width 16.4 % (11.5-14.5) Platelet Count 263 x10^3/uL (140-400) Neutrophils (%) (Auto) 86 % (31-73) Lymphocytes (%) (Auto) 5 % (24-48) Monocytes (%) (Auto) 9 % (0-9) Eosinophils (%) (Auto) 0 % (0-3) Basophils (%) (Auto) 0 % (0-3) Neutrophils # (Auto) 15.1 x10^3uL (1.8-7.7) Lymphocytes # (Auto) 0.9 x10^3/uL (1.0-4.8) Monocytes # (Auto) 1.6 x10^3/uL (0.0-1.1) Eosinophils # (Auto) 0.0 x10^3/uL (0.0-0.7) Basophils # (Auto) 0.1 x10^3/uL (0.0-0.2) Sodium Level 136 mmol/L (136-145) Potassium Level 4.5 mmol/L (3.5-5.1) Chloride Level 98 mmol/L (98-107) Carbon Dioxide Level 29 mmol/L (21-32) Anion Gap 9 (6-14) Blood Urea Nitrogen 37 mg/dL (8-26) Creatinine 6.8 mg/dL (0.7-1.3) Estimated GFR (Cockcroft-Gault) 10.4 Glucose Level 174 mg/dL (70-99) Calcium Level 9.5 mg/dL (8.5-10.1) Phosphorus Level 5.3 mg/dL (2.6-4.7) Albumin 2.2 g/dL (3.4-5.0) Test 11/29/18 11:05 11/29/18 16:47 11/29/18 20:51 11/30/18 07:23 Glucose (Fingerstick) 173 mg/dL (70-99) 177 mg/dL (70-99) 194 mg/dL (70-99) 136 mg/dL (70-99) Test 11/30/18 08:50 11/30/18 11:31 White Blood Count 10.6 x10^3/uL (4.0-11.0) Red Blood Count 2.80 x10^6/uL (4.30-5.70) Hemoglobin 7.9 g/dL (13.0-17.5) Hematocrit 24.7 % (39.0-53.0) Mean Corpuscular Volume 88 fL (79-100) Mean Corpuscular Hemoglobin 28 pg (25-35) Mean Corpuscular Hemoglobin Concent 32 g/dL (31-37) Red Cell Distribution Width 16.5 % (11.5-14.5) Platelet Count 306 x10^3/uL (140-400) Neutrophils (%) (Auto) 73 % (31-73) Lymphocytes (%) (Auto) 13 % (24-48) Monocytes (%) (Auto) 11 % (0-9) Eosinophils (%) (Auto) 2 % (0-3) Basophils (%) (Auto) 1 % (0-3) Neutrophils # (Auto) 7.7 x10^3uL (1.8-7.7) Lymphocytes # (Auto) 1.4 x10^3/uL (1.0-4.8) Monocytes # (Auto) 1.2 x10^3/uL (0.0-1.1) Eosinophils # (Auto) 0.2 x10^3/uL (0.0-0.7) Basophils # (Auto) 0.1 x10^3/uL (0.0-0.2) Sodium Level 137 mmol/L (136-145) Potassium Level 4.7 mmol/L (3.5-5.1) Chloride Level 98 mmol/L (98-107) Carbon Dioxide Level 31 mmol/L (21-32) Anion Gap 8 (6-14) Blood Urea Nitrogen 46 mg/dL (8-26) Creatinine 8.7 mg/dL (0.7-1.3) Estimated GFR (Cockcroft-Gault) 7.8 BUN/Creatinine Ratio 5 (6-20) Glucose Level 153 mg/dL (70-99) Calcium Level 9.4 mg/dL (8.5-10.1) Total Bilirubin 0.4 mg/dL (0.2-1.0) Aspartate Amino Transf (AST/SGOT) 21 U/L (15-37) Alanine Aminotransferase (ALT/SGPT) 10 U/L (16-63) Alkaline Phosphatase 71 U/L (46-116) Total Protein 8.1 g/dL (6.4-8.2) Albumin 2.1 g/dL (3.4-5.0) Albumin/Globulin Ratio 0.4 (1.0-1.7) Glucose (Fingerstick) 173 mg/dL (70-99) Laboratory Tests Test 11/29/18 16:47 11/29/18 20:51 11/30/18 07:23 11/30/18 08:50 Glucose (Fingerstick) 177 mg/dL (70-99) 194 mg/dL (70-99) 136 mg/dL (70-99) White Blood Count 10.6 x10^3/uL (4.0-11.0) Red Blood Count 2.80 x10^6/uL (4.30-5.70) Hemoglobin 7.9 g/dL (13.0-17.5) Hematocrit 24.7 % (39.0-53.0) Mean Corpuscular Volume 88 fL (79-100) Mean Corpuscular Hemoglobin 28 pg (25-35) Mean Corpuscular Hemoglobin Concent 32 g/dL (31-37) Red Cell Distribution Width 16.5 % (11.5-14.5) Platelet Count 306 x10^3/uL (140-400) Neutrophils (%) (Auto) 73 % (31-73) Lymphocytes (%) (Auto) 13 % (24-48) Monocytes (%) (Auto) 11 % (0-9) Eosinophils (%) (Auto) 2 % (0-3) Basophils (%) (Auto) 1 % (0-3) Neutrophils # (Auto) 7.7 x10^3uL (1.8-7.7) Lymphocytes # (Auto) 1.4 x10^3/uL (1.0-4.8) Monocytes # (Auto) 1.2 x10^3/uL (0.0-1.1) Eosinophils # (Auto) 0.2 x10^3/uL (0.0-0.7) Basophils # (Auto) 0.1 x10^3/uL (0.0-0.2) Sodium Level 137 mmol/L (136-145) Potassium Level 4.7 mmol/L (3.5-5.1) Chloride Level 98 mmol/L (98-107) Carbon Dioxide Level 31 mmol/L (21-32) Anion Gap 8 (6-14) Blood Urea Nitrogen 46 mg/dL (8-26) Creatinine 8.7 mg/dL (0.7-1.3) Estimated GFR (Cockcroft-Gault) 7.8 BUN/Creatinine Ratio 5 (6-20) Glucose Level 153 mg/dL (70-99) Calcium Level 9.4 mg/dL (8.5-10.1) Total Bilirubin 0.4 mg/dL (0.2-1.0) Aspartate Amino Transf (AST/SGOT) 21 U/L (15-37) Alanine Aminotransferase (ALT/SGPT) 10 U/L (16-63) Alkaline Phosphatase 71 U/L (46-116) Total Protein 8.1 g/dL (6.4-8.2) Albumin 2.1 g/dL (3.4-5.0) Albumin/Globulin Ratio 0.4 (1.0-1.7) Test 11/30/18 11:31 Glucose (Fingerstick) 173 mg/dL (70-99) Microbiology 11/25/18 Blood Culture - Preliminary, Resulted NO GROWTH AFTER 4 DAYS 11/28/18 Anaerobic/Aerobic Culture, Resulted Pending 11/28/18 Anaerobic Culture Result 1 (BLAKE), Resulted Pending 11/28/18 Aerobic Culture, Resulted Pending 11/28/18 Aerobic Culture Result 1 (BLAKE), Resulted Pending 11/28/18 Gram Stain - Final, Resulted 11/28/18 Gram Stain Result 1 (BLAKE) - Final, Resulted 11/28/18 Gram Stain Result 2 (BLAKE) - Final, Resulted Medications Current Medications Acetaminophen (Tylenol) 1,000 mg 1X ONCE PO Last administered on 11/25/18at 14: 04; Start 11/25/18 at 12:45; Stop 11/25/18 at 12:48; Status DC Sodium Chloride 500 ml @ 500 mls/hr 1X ONCE IV Last administered on at 14:00; Start 11/25/18 at 12:45; Stop 11/25/18 at 13:44; Status DC Sodium Chloride 1,000 ml @ 1,000 mls/hr 1X ONCE IV Last administered on at 14:39; Start 11/25/18 at 14:30; Stop 11/25/18 at 15:29; Status DC Albuterol/ Ipratropium (Duoneb) 3 ml 1X ONCE NEB Last administered on at 14:30; Start 11/25/18 at 14:30; Stop 11/25/18 at 14:31; Status DC Vancomycin HCl 2 gm/Sodium Chloride 500 ml @ 250 mls/hr 1X ONCE IV Last administered on 11/25/18at 14:30; Start 11/25/18 at 14:30; Stop 11/25/18 at 16:29 ; Status DC Levofloxacin/ Dextrose 150 ml @ 100 mls/hr 1X ONCE IV Last administered on at 14:39; Start 11/25/18 at 14:30; Stop 11/25/18 at 15:59; Status DC Acetaminophen/ Hydrocodone Bitart (Lortab 7.5/325) 1 tab PRN Q4HRS PRN PO PAIN Last administered on 11/29/18at 12:26; Start 11/25/18 at 17:15 Sodium Chloride (Normal Saline Flush) 3 ml QSHIFT PRN IV AFTER MEDS AND BLOOD DRAWS; Start 11/25/18 at 17:30 Vancomycin HCl (Vanco Per Pharmacy) 1 each PRN DAILY PRN MC SEE COMMENTS Last administered on 11/30/18at 09:23; Start 11/25/18 at 17:30 Levofloxacin/ Dextrose (Levaquin Per Pharmacy) 1 each PRN DAILY PRN MC SEE COMMENTS; Start 11/25/18 at 17:30; Stop 11/26/18 at 09:31; Status DC Levofloxacin/ Dextrose 100 ml @ 100 mls/hr Q48H IV ; Start 11/27/18 at 14:00; Stop 11/27/18 at 14:00; Status DC Heparin Sodium (Porcine) (Heparin Sodium) 5,000 unit Q8HRS SQ Last administered on 11/29/18at 06:17; Start 11/25/18 at 22:00 Acetaminophen (Tylenol) 650 mg PRN Q6HRS PRN PO FEVER Last administered on 11/28at 04:45; Start 11/25/18 at 17:45 Aspirin ([place]des Aspirin) 325 mg DAILY PO Last administered on 11/29/18at 08:43; Start 11/26/18 at 09:00 Calcium Carbonate/ Glycine (Oscal) 500 mg BID PO Last administered on 09:04; Start 11/25/18 at 21:00 Carvedilol (Coreg) 3.125 mg BIDWMEALS PO Last administered on 11/29/18 17:07; Start 11/25/18 at 18:30 Clopidogrel Bisulfate (Plavix) 75 mg DAILY PO Last administered on 11/29/18 08 :43; Start 11/26/18 at 09:00 Famotidine (Pepcid) 20 mg HS PO Last administered on 11/25/18 20:34; Start at 21:00; Stop 11/26/18 at 08:53; Status DC Isosorbide Mononitrate (Imdur) 30 mg DAILY PO Last administered on 11/29/18 08 :42; Start 11/26/18 at 09:00 Levothyroxine Sodium (Synthroid) 175 mcg DAILYAC PO Last administered on 06:13; Start 11/26/18 at 07:30 Oxycodone/ Acetaminophen (Percocet 10/325) 1 tab QID PO Last administered on 09:02; Start 11/25/18 at 21:00 Zolpidem Tartrate (Ambien) 5 mg QHS PO Last administered on 11/29/18 21:31; Start 11/25/18 at 21:00 Albuterol Sulfate (Ventolin Neb Soln) 2.5 mg PRN Q6HRS PRN NEB SHORTNESS OF BREATH Last administered on 11/28/18 15:39; Start 11/25/18 at 17:45 Atorvastatin Calcium (Lipitor) 40 mg QHS PO Last administered on 11/29/18 21: 27; Start 11/25/18 at 21:00 Non-Formulary Medication (Fluticasone Propionate (Flovent 110MCG Hfa)) 2 puff BID IH ; Start 11/25/18 at 21:00; Status UNV Levetiracetam (Keppra) 1,000 mg BID PO Last administered on 11/29/18 21:27; Start 11/25/18 at 21:00 Magnesium Oxide (Magnesium Oxide) 400 mg DAILY PO Last administered on 4/20/ 19at 09:04; Start 11/26/18 at 09:00 Pramipexole Dihydrochloride (miraPEX) 0.25 mg DAILY PO Last administered on at 08:41; Start 11/26/18 at 09:00 Budesonide (Pulmicort) 0.5 mg RTBID NEB Last administered on 11/30/18at 07:56; Start 11/25/18 at 20:00 Vancomycin HCl (Vancomycin Random Level) 1 each 1X ONCE MC Last administered on 11/27/18at 06:00; Start 11/27/18 at 06:00; Stop 11/27/18 at 06:01; Status DC Midazolam HCl (Versed) 5 mg STK-MED ONCE .ROUTE ; Start 11/25/18 at 17:58; Stop 11/25/18 at 17:59; Status DC Lactobacillus Rhamnosus (Culturelle) 1 cap BID PO Last administered on at 09:01; Start 11/26/18 at 09:00 Midazolam HCl (Versed) 5 mg STK-MED ONCE .ROUTE ; Start 11/25/18 at 18:00; Stop 11/26/18 at 07:42; Status DC Famotidine (Pepcid) 20 mg Q48H PO Last administered on 11/29/18at 21:31; Start 11/27/18 at 21:00 Meropenem 500 mg/ Sodium Chloride 50 ml @ 100 mls/hr DAILY IV Last administered on 11/28/18at 09:28; Start 11/26/18 at 10:00 Sodium Chloride 1,000 ml @ 1,000 mls/hr Q1H PRN IV hypotension; Start 11/26/18 at 14:13; Stop 11/26/18 at 20:12; Status DC Albumin Human 200 ml @ 200 mls/hr 1X PRN PRN IV Hypotension; Start 11/26/18 at 14:15; Stop 11/26/18 at 20:14; Status DC Acetaminophen (Tylenol) 500 mg 1X PRN PRN PO MILD PAIN / TEMP; Start 11/26/18 at 14:15; Stop 11/27/18 at 14:14; Status DC Diphenhydramine HCl (Benadryl) 25 mg 1X PRN PRN IV ITCHING; Start 11/26/18 at 14:15; Stop 11/27/18 at 14:14; Status DC Diphenhydramine HCl (Benadryl) 25 mg 1X PRN PRN IV ITCHING; Start 11/26/18 at 14:15; Stop 11/27/18 at 14:14; Status DC Sodium Chloride 1,000 ml @ 400 mls/hr Q2H30M PRN IV PATENCY; Start 11/26/18 at 14:13; Stop 11/27/18 at 02:12; Status DC Info (PHARMACY MONITORING -- do not chart) 1 each PRN DAILY PRN MC SEE COMMENTS ; Start 11/26/18 at 14:15; Stop 11/30/18 at 09:14; Status DC Multivitamins (Thera M Plus) 1 tab DAILY PO Last administered on 11/30/18at 09: 03; Start 11/27/18 at 09:00 Darbepoetin Jace (Aranesp) 100 mcg WEEKLYHS SQ Last administered on 11/26/18at 20:53; Start 11/26/18 at 21:00 Lidocaine HCl 48 ml/Sodium Bicarbonate 12 meq/Miscellaneous 60 ml @ 60 mls/hr 1X ONCE ID ; Start 11/28/18 at 06:00; Stop 11/28/18 at 06:59; Status DC Ondansetron HCl (Zofran) 4 mg PRN Q6HRS PRN IV NAUSEA/VOMITING; Start 11/28/18 at 07:00; Stop 11/28/18 at 20:00; Status DC Fentanyl Citrate (Fentanyl 2ml Vial) 25 mcg PRN Q5MIN PRN IV MILD PAIN; Start 11/28/18 at 07:00; Stop 11/28/18 at 20:00; Status DC Fentanyl Citrate (Fentanyl 2ml Vial) 50 mcg PRN Q5MIN PRN IV MODERATE TO SEVERE PAIN Last administered on 11/28/18at 10:14; Start 11/28/18 at 07:00; Stop 11/28/18 at 20:00; Status DC Morphine Sulfate (Morphine Sulfate) 1 mg PRN Q10MIN PRN IV SEVERE PAIN; Start 11/28/18 at 07:00; Stop 11/28/18 at 20:00; Status DC Ringer's Solution 1,000 ml @ 30 mls/hr Q24H IV ; Start 11/28/18 at 07:00; Stop 11/28/18 at 18:59; Status DC Lidocaine HCl (Xylocaine-Mpf 1% 2ml Vial) 2 ml PRN 1X PRN ID PRIOR TO IV START ; Start 11/28/18 at 07:00; Stop 11/28/18 at 20:00; Status DC Hydromorphone HCl (Dilaudid) 0.5 mg PRN Q10MIN PRN IV SEV PAIN, Second choice; Start 11/28/18 at 07:00; Stop 11/28/18 at 20:00; Status DC Prochlorperazine Edisylate (Compazine) 5 mg PACU PRN PRN IV NAUSEA, MRX1; Start 11/28/18 at 07:00; Stop 11/28/18 at 20:00; Status DC Vancomycin HCl 500 mg/Sodium Chloride 100 ml @ 100 mls/hr 1X ONCE IV Last administered on 11/27/18at 13:29; Start 11/27/18 at 13:00; Stop 11/27/18 at 13:59 ; Status DC Vancomycin HCl 500 mg/Sodium Chloride 100 ml @ 100 mls/hr QTUTHSA IV Last administered on 11/28/18at 16:18; Start 11/28/18 at 16:00 Sodium Chloride 1,000 ml @ 1,000 mls/hr Q1H PRN IV hypotension; Start 11/28/18 at 07:04; Stop 11/28/18 at 13:03; Status DC Albumin Human 200 ml @ 200 mls/hr 1X PRN PRN IV Hypotension; Start 11/28/18 at 07:15; Stop 11/28/18 at 13:14; Status DC Acetaminophen (Tylenol) 500 mg 1X PRN PRN PO MILD PAIN / TEMP; Start 11/28/18 at 07:15; Stop 11/29/18 at 07:14; Status DC Diphenhydramine HCl (Benadryl) 25 mg 1X PRN PRN IV ITCHING; Start 11/28/18 at 07:15; Stop 11/29/18 at 07:14; Status DC Diphenhydramine HCl (Benadryl) 25 mg 1X PRN PRN IV ITCHING; Start 11/28/18 at 07:15; Stop 11/29/18 at 07:14; Status DC Sodium Chloride 1,000 ml @ 400 mls/hr Q2H30M PRN IV PATENCY; Start 11/28/18 at 07:04; Stop 11/28/18 at 19:03; Status DC Info (PHARMACY MONITORING -- do not chart) 1 each PRN DAILY PRN MC SEE COMMENTS ; Start 11/28/18 at 07:15 Propofol 20 ml @ As Directed STK-MED ONCE IV ; Start 11/28/18 at 08:23; Stop at 08:24; Status DC Lidocaine HCl (Lidocaine Pf 2% Vial) 5 ml STK-MED ONCE .ROUTE ; Start 11/28/18 at 08:23; Stop 11/28/18 at 08:24; Status DC Phenylephrine HCl (PHENYLEPHRINE in 0.9% NACL PF) 1 mg STK-MED ONCE IV ; Start 11/28/18 at 08:23; Stop 11/28/18 at 08:24; Status DC Dexamethasone Sodium Phosphate (Decadron) 20 mg STK-MED ONCE .ROUTE ; Start at 08:23; Stop 11/28/18 at 08:24; Status DC Famotidine (Pepcid Vial) 20 mg STK-MED ONCE .ROUTE ; Start 11/28/18 at 08:23; Stop 11/28/18 at 08:24; Status DC Ondansetron HCl (Zofran) 4 mg STK-MED ONCE .ROUTE ; Start 11/28/18 at 08:23; Stop 11/28/18 at 08:24; Status DC Silver Sulfadiazine (Silvadene) 25 ayaz STK-MED ONCE TP ; Start 11/28/18 at 07:36 ; Stop 11/28/18 at 08:37; Status DC Morphine Sulfate (Morphine Sulfate) 2 mg PRN Q2HR PRN IV MODERATE TO SEVERE PAIN; Start 11/28/18 at 09:15 Sevoflurane (Ultane) 30 ml STK-MED ONCE IH ; Start 11/28/18 at 09:41; Stop 11/28 at 09:42; Status DC Fentanyl Citrate (Fentanyl 2ml Vial) 100 mcg STK-MED ONCE .ROUTE ; Start at 10:12; Stop 11/28/18 at 10:13; Status DC Active Scripts Active Isosorbide Mononitrate Er (Isosorbide Mononitrate) 30 Mg Tab.er.24h 30 Mg PO DAILY 30 Days Reported Aspirin 325 Mg Tablet 1 Tab PO DAILY Coreg (Carvedilol) 3.125 Mg Tablet 3.125 Mg PO BIDWMEALS Magnesium (Magnesium Oxide) 400 Mg Capsule 400 Mg PO DAILY Levothyroxine Sodium 175 Mcg Tablet 175 Mcg PO DAILYAC Plavix (Clopidogrel Bisulfate) 75 Mg Tablet 75 Mg PO DAILY Calcium Carbonate 500 Mg Tablet 500 Mg PO BID Lipitor (Atorvastatin Calcium) 80 Mg Tablet 40 Mg PO HS Keppra (Levetiracetam) 1,000 Mg Tablet 1 Tab PO BID Endocet 10-325 Mg Tablet (Oxycodone Hcl/Acetaminophen) 1 Each Tablet 1 Tab PO QID Flovent 110MCG Hfa (Fluticasone Propionate) 12 Gm Aer.w.adap 2 Puff IH BID Zolpidem Tartrate 5 Mg Tablet 1 Tab PO QHS Mirapex (Pramipexole Di-Hcl) 0.25 Mg Tablet 1 Tab PO DAILY Tylenol (Acetaminophen) 325 Mg Tablet 650 Mg PO PRN Q6HRS PRN Famotidine 20 Mg Tablet 20 Mg PO HS Ventolin Hfa Inhaler (Albuterol Sulfate) 18 Gm Hfa.aer.ad 1 Puff INH Q6HRS PRN Vitals/I & O Vital Sign - Last 24 Hours 11/29/18 11/29/18 11/29/18 11/29/18 15:00 17:07 17:08 18:03 Temp 98.3 98.3 Pulse 71 71 Resp 18 B/P (MAP) 118/50 (72) 118/50 Pulse Ox 98 O2 Delivery Room Air Room Air Room Air 11/29/18 11/29/18 11/29/18 11/29/18 19:00 20:19 20:20 21:31 Temp 97.5 97.5 Pulse 72 Resp 16 20 B/P (MAP) 127/52 (77) Pulse Ox 97 100 O2 Delivery Room Air Room Air Room Air Room Air 11/29/18 11/30/18 11/30/18 11/30/18 23:00 03:00 07:00 07:58 Temp 97.6 97.5 97.8 97.6 97.5 97.8 Pulse 73 76 74 Resp 16 16 18 B/P (MAP) 115/47 (69) 120/67 (84) 109/47 (67) Pulse Ox 91 95 97 O2 Delivery Room Air Room Air Room Air Room Air 11/30/18 11/30/18 09:02 11:00 Temp 98.7 98.7 Pulse 82 Resp 20 18 B/P (MAP) 122/55 (77) Pulse Ox 94 O2 Delivery Room Air Room Air Intake and Output 11/29/18 11/29/18 11/30/18 15:00 23:00 07:00 Intake Total 200 ml 560 ml Output Total 40 ml Balance 200 ml 520 ml NICHOLE THORNTON MD Nov 30, 2018 13:50
[2018-11-30] MEDS ORDERED: DIALYSIS PATIENT. MC PRN ×2 (16:15)
[2018-11-30] MEDS: PRAMIPEXOLE 0.25 MG TABLET. PO SCH (16:39)
[2018-11-30] MEDS: LEVOTHYROXINE 175 MCG TABLET PO SCH (16:40)
[2018-11-30] MEDS: levETIRAcetam 500 MG TABLET PO SCH ×2 (16:40→20:58)
[2018-11-30] MEDS: ASPIRIN 325 MG TABLET PO SCH (16:40)
[2018-11-30] MEDS: MEROPENEM 500 MG in IV NORMAL SALINE 50ML 50 ML IV SCH (16:42)
[2018-11-30] MEDS: CLOPIDOGREL BISULFATE 75 MG TABLET PO SCH (16:43)
[2018-11-30] MEDS: ISOSORBIDE MONONITRATE ER 30 MG TAB.ER.24H PO SCH (17:15)
[2018-11-30] MEDS: VANCOMYCIN 500 MG in IV NORMAL SALINE 100ML 100 ML IV SCH (17:47)
[2018-11-30 19:00] VITALS: BP 111/55
[2018-11-30] MEDS: ATORVASTATIN CALCIUM 40 MG TABLET. PO SCH (20:58)
[2018-11-30] MEDS: ZOLPIDEM 5 MG TABLET. PO SCH (20:58)
[2018-11-30 22:37] VITALS: BP 124/60
[2018-12-01 03:00] VITALS: BP 131/53
[2018-12-01] MEDS: HEPARIN for SUB-Q USE 5,000 UNIT/ML VIAL. SQ SCH ×3 (05:35→21:57)
[2018-12-01] MEDS: BUDESONIDE 0.5 MG/2 ML NEBU. NEB SCH ×2 (06:07→20:24)
[2018-12-01 07:00] VITALS: BP 132/61
[2018-12-01] MEDS: MAGNESIUM OXIDE 400 MG TABLET PO SCH (08:33)
[2018-12-01] MEDS: MULTIVITAMIN with MINERAL TABLET. PO SCH (08:33)
[2018-12-01] MEDS: PRAMIPEXOLE 0.25 MG TABLET. PO SCH (08:33)
[2018-12-01] MEDS: levETIRAcetam 500 MG TABLET PO SCH ×2 (08:33→20:52)
[2018-12-01] MEDS: CLOPIDOGREL BISULFATE 75 MG TABLET PO SCH (08:33)
[2018-12-01] MEDS: LACTOBACILLUS RHAMNOSUS GG 1 CAPSULE. PO SCH ×2 (08:33→20:52)
[2018-12-01] MEDS: ASPIRIN 325 MG TABLET PO SCH (08:33)
[2018-12-01] MEDS: CALCIUM CARBONATE 500 MG TABLET PO SCH ×2 (08:33→20:53)
[2018-12-01] MEDS: LEVOTHYROXINE 175 MCG TABLET PO SCH (08:33)
[2018-12-01] MEDS: oxyCODONE/APAP 10/325 1 TAB TABLET PO SCH ×4 (08:34→20:53)
[2018-12-01] MEDS: MEROPENEM 500 MG in IV NORMAL SALINE 50ML 50 ML IV SCH (08:35)
[2018-12-01] MEDS: ISOSORBIDE MONONITRATE ER 30 MG TAB.ER.24H PO SCH (08:49)
[2018-12-01] MEDS: CARVEDILOL 3.125 MG TABLET. PO SCH ×2 (08:50→17:55)
[2018-12-01] MEDS: VANCOMYCIN PER PHARMACY MC PRN (10:27)
[2018-12-01 11:00] VITALS: BP 133/54
--- NOTE | 2018-12-01 12:32 | PDOC ---
PROGRESS NOTES Chief Complaint Chief Complaint Cough, SOB, fever, gangrenous R foot History of Present Illness History of Present Illness The patient was seen laying down in bed today. His wound is dressed and wound VAC is in place. He states he is feeling well. Vitals Vitals Vital Signs Date Time Temp Pulse Resp B/P (MAP) Pulse Ox O2 Delivery O2 Flow Rate FiO2 12/01/18 11:00 98.5 78 20 133/54 (80) 94 Room Air 2.0 98.5 Physical Exam General: Alert, Oriented X3, Cooperative, No acute distress Heart: Regular rate, Normal S1, Normal S2, No murmurs Lungs: Clear (No wheezes, rales, or rhonchi) Abdomen: Soft, No tenderness, No masses Extremities: No edema, Normal pulses, No tenderness/swelling Skin: No rashes, No breakdown, No significant lesion, Other (Swelling in right foot) Labs LABS Laboratory Tests Test 11/30/18 16:43 11/30/18 20:47 12/01/18 07:24 12/01/18 11:27 Glucose (Fingerstick) 127 mg/dL (70-99) 129 mg/dL (70-99) 115 mg/dL (70-99) 130 mg/dL (70-99) Review of Systems Review of Systems Patient denies fevers, chills, N/V, CP, SOB, diarrhea. Assessment and Plan Assessmemt and Plan Problems Medical Problems: (1) Acute respiratory distress Status: Acute (2) Diabetic infection of right foot Status: Acute (3) Fever Status: Acute (4) HCAP (healthcare-associated pneumonia) Status: Acute (5) History of left below knee amputation Status: Acute (6) Sepsis Status: Acute (7) Symptomatic anemia Status: Acute (8) Toe fracture, right Status: Acute Assessment: Right 2nd and 3rd toe amputation with R 4th and 5th ray amputation- 11/28/18 End-stage renal disease, on hemodialysis. Diabetes mellitus with peripheral neuropathy Peripheral vascular disease Afib Anxiety Asthma Coronary artery disease CHF History of stroke GERD HTN Hyperlipidemia history of [place] History of TIA L arm fistula Obesity Plan: Wound care IV vancomycin and meropenem Wound vac Dialysis Vascular surgery consulted Infectious disease consulted Nephrology consulted F/u labs PT/OT continue home meds DVT prophylaxis Discharge disposition pending Comment Review of Relevant I have reviewed the following items lila (where applicable) has been applied. Labs Laboratory Tests Test 11/29/18 16:47 11/29/18 20:51 11/30/18 07:23 11/30/18 08:50 Glucose (Fingerstick) 177 mg/dL (70-99) 194 mg/dL (70-99) 136 mg/dL (70-99) White Blood Count 10.6 x10^3/uL (4.0-11.0) Red Blood Count 2.80 x10^6/uL (4.30-5.70) Hemoglobin 7.9 g/dL (13.0-17.5) Hematocrit 24.7 % (39.0-53.0) Mean Corpuscular Volume 88 fL (79-100) Mean Corpuscular Hemoglobin 28 pg (25-35) Mean Corpuscular Hemoglobin Concent 32 g/dL (31-37) Red Cell Distribution Width 16.5 % (11.5-14.5) Platelet Count 306 x10^3/uL (140-400) Neutrophils (%) (Auto) 73 % (31-73) Lymphocytes (%) (Auto) 13 % (24-48) Monocytes (%) (Auto) 11 % (0-9) Eosinophils (%) (Auto) 2 % (0-3) Basophils (%) (Auto) 1 % (0-3) Neutrophils # (Auto) 7.7 x10^3uL (1.8-7.7) Lymphocytes # (Auto) 1.4 x10^3/uL (1.0-4.8) Monocytes # (Auto) 1.2 x10^3/uL (0.0-1.1) Eosinophils # (Auto) 0.2 x10^3/uL (0.0-0.7) Basophils # (Auto) 0.1 x10^3/uL (0.0-0.2) Sodium Level 137 mmol/L (136-145) Potassium Level 4.7 mmol/L (3.5-5.1) Chloride Level 98 mmol/L (98-107) Carbon Dioxide Level 31 mmol/L (21-32) Anion Gap 8 (6-14) Blood Urea Nitrogen 46 mg/dL (8-26) Creatinine 8.7 mg/dL (0.7-1.3) Estimated GFR (Cockcroft-Gault) 7.8 BUN/Creatinine Ratio 5 (6-20) Glucose Level 153 mg/dL (70-99) Calcium Level 9.4 mg/dL (8.5-10.1) Total Bilirubin 0.4 mg/dL (0.2-1.0) Aspartate Amino Transf (AST/SGOT) 21 U/L (15-37) Alanine Aminotransferase (ALT/SGPT) 10 U/L (16-63) Alkaline Phosphatase 71 U/L (46-116) Total Protein 8.1 g/dL (6.4-8.2) Albumin 2.1 g/dL (3.4-5.0) Albumin/Globulin Ratio 0.4 (1.0-1.7) Test 11/30/18 11:31 11/30/18 16:43 11/30/18 20:47 12/01/18 07:24 Glucose (Fingerstick) 173 mg/dL (70-99) 127 mg/dL (70-99) 129 mg/dL (70-99) 115 mg/dL (70-99) Test 12/01/18 11:27 Glucose (Fingerstick) 130 mg/dL (70-99) Laboratory Tests Test 11/30/18 16:43 11/30/18 20:47 12/01/18 07:24 12/01/18 11:27 Glucose (Fingerstick) 127 mg/dL (70-99) 129 mg/dL (70-99) 115 mg/dL (70-99) 130 mg/dL (70-99) Microbiology 11/25/18 Blood Culture - Final, Complete NO GROWTH AFTER 5 DAYS 11/28/18 Anaerobic/Aerobic Culture, Resulted Pending 11/28/18 Anaerobic Culture Result 1 (BLAKE), Resulted Pending 11/28/18 Aerobic Culture - Preliminary, Resulted 11/28/18 Aerobic Culture Result 1 (BLAKE) - Preliminary, Resulted 11/28/18 Gram Stain - Final, Resulted 11/28/18 Gram Stain Result 1 (BLAKE) - Final, Resulted 11/28/18 Gram Stain Result 2 (BLAKE) - Final, Resulted Medications Current Medications Acetaminophen (Tylenol) 1,000 mg 1X ONCE PO Last administered on 11/25/18at 14: 04; Start 11/25/18 at 12:45; Stop 11/25/18 at 12:48; Status DC Sodium Chloride 500 ml @ 500 mls/hr 1X ONCE IV Last administered on at 14:00; Start 11/25/18 at 12:45; Stop 11/25/18 at 13:44; Status DC Sodium Chloride 1,000 ml @ 1,000 mls/hr 1X ONCE IV Last administered on at 14:39; Start 11/25/18 at 14:30; Stop 11/25/18 at 15:29; Status DC Albuterol/ Ipratropium (Duoneb) 3 ml 1X ONCE NEB Last administered on at 14:30; Start 11/25/18 at 14:30; Stop 11/25/18 at 14:31; Status DC Vancomycin HCl 2 gm/Sodium Chloride 500 ml @ 250 mls/hr 1X ONCE IV Last administered on 11/25/18at 14:30; Start 11/25/18 at 14:30; Stop 11/25/18 at 16:29 ; Status DC Levofloxacin/ Dextrose 150 ml @ 100 mls/hr 1X ONCE IV Last administered on at 14:39; Start 11/25/18 at 14:30; Stop 11/25/18 at 15:59; Status DC Acetaminophen/ Hydrocodone Bitart (Lortab 7.5/325) 1 tab PRN Q4HRS PRN PO PAIN Last administered on 11/29/18at 12:26; Start 11/25/18 at 17:15 Sodium Chloride (Normal Saline Flush) 3 ml QSHIFT PRN IV AFTER MEDS AND BLOOD DRAWS; Start 11/25/18 at 17:30 Vancomycin HCl (Vanco Per Pharmacy) 1 each PRN DAILY PRN MC SEE COMMENTS Last administered on 12/01/18at 10:27; Start 11/25/18 at 17:30 Levofloxacin/ Dextrose (Levaquin Per Pharmacy) 1 each PRN DAILY PRN MC SEE COMMENTS; Start 11/25/18 at 17:30; Stop 11/26/18 at 09:31; Status DC Levofloxacin/ Dextrose 100 ml @ 100 mls/hr Q48H IV ; Start 11/27/18 at 14:00; Stop 11/27/18 at 14:00; Status DC Heparin Sodium (Porcine) (Heparin Sodium) 5,000 unit Q8HRS SQ Last administered on 11/30/18 21:02; Start 11/25/18 at 22:00 Acetaminophen (Tylenol) 650 mg PRN Q6HRS PRN PO FEVER Last administered on 11/28 04:45; Start 11/25/18 at 17:45 Aspirin ([place] Aspirin) 325 mg DAILY PO Last administered on 12/01/18 08:33; Start 11/26/18 at 09:00 Calcium Carbonate/ Glycine (Oscal) 500 mg BID PO Last administered on 08:33; Start 11/25/18 at 21:00 Carvedilol (Coreg) 3.125 mg BIDWMEALS PO Last administered on 12/01/18 08:50; Start 11/25/18 at 18:30 Clopidogrel Bisulfate (Plavix) 75 mg DAILY PO Last administered on 12/01/18 08 :33; Start 11/26/18 at 09:00 Famotidine (Pepcid) 20 mg HS PO Last administered on 11/25/18 20:34; Start at 21:00; Stop 11/26/18 at 08:53; Status DC Isosorbide Mononitrate (Imdur) 30 mg DAILY PO Last administered on 12/01/18 08 :49; Start 11/26/18 at 09:00 Levothyroxine Sodium (Synthroid) 175 mcg DAILYAC PO Last administered on 08:33; Start 11/26/18 at 07:30 Oxycodone/ Acetaminophen (Percocet 10/325) 1 tab QID PO Last administered on 08:34; Start 11/25/18 at 21:00 Zolpidem Tartrate (Ambien) 5 mg QHS PO Last administered on 11/30/18 20:58; Start 11/25/18 at 21:00 Albuterol Sulfate (Ventolin Neb Soln) 2.5 mg PRN Q6HRS PRN NEB SHORTNESS OF BREATH Last administered on 11/28/18 15:39; Start 11/25/18 at 17:45 Atorvastatin Calcium (Lipitor) 40 mg QHS PO Last administered on 11/30/18 20: 58; Start 11/25/18 at 21:00 Non-Formulary Medication (Fluticasone Propionate (Flovent 110MCG Hfa)) 2 puff BID IH ; Start 11/25/18 at 21:00; Status UNV Levetiracetam (Keppra) 1,000 mg BID PO Last administered on 12/01/18at 08:33; Start 11/25/18 at 21:00 Magnesium Oxide (Magnesium Oxide) 400 mg DAILY PO Last administered on at 08:33; Start 11/26/18 at 09:00 Pramipexole Dihydrochloride (miraPEX) 0.25 mg DAILY PO Last administered on at 08:33; Start 11/26/18 at 09:00 Budesonide (Pulmicort) 0.5 mg RTBID NEB Last administered on 12/01/18at 06:07; Start 11/25/18 at 20:00 Vancomycin HCl (Vancomycin Random Level) 1 each 1X ONCE MC Last administered on 11/27/18at 06:00; Start 11/27/18 at 06:00; Stop 11/27/18 at 06:01; Status DC Midazolam HCl (Versed) 5 mg STK-MED ONCE .ROUTE ; Start 11/25/18 at 17:58; Stop 11/25/18 at 17:59; Status DC Lactobacillus Rhamnosus (Culturelle) 1 cap BID PO Last administered on at 08:33; Start 11/26/18 at 09:00 Midazolam HCl (Versed) 5 mg STK-MED ONCE .ROUTE ; Start 11/25/18 at 18:00; Stop 11/26/18 at 07:42; Status DC Famotidine (Pepcid) 20 mg Q48H PO Last administered on 11/29/18at 21:31; Start 11/27/18 at 21:00 Meropenem 500 mg/ Sodium Chloride 50 ml @ 100 mls/hr DAILY IV Last administered on 12/01/18at 08:35; Start 11/26/18 at 10:00 Sodium Chloride 1,000 ml @ 1,000 mls/hr Q1H PRN IV hypotension; Start 11/26/18 at 14:13; Stop 11/26/18 at 20:12; Status DC Albumin Human 200 ml @ 200 mls/hr 1X PRN PRN IV Hypotension; Start 11/26/18 at 14:15; Stop 11/26/18 at 20:14; Status DC Acetaminophen (Tylenol) 500 mg 1X PRN PRN PO MILD PAIN / TEMP; Start 11/26/18 at 14:15; Stop 11/27/18 at 14:14; Status DC Diphenhydramine HCl (Benadryl) 25 mg 1X PRN PRN IV ITCHING; Start 11/26/18 at 14:15; Stop 11/27/18 at 14:14; Status DC Diphenhydramine HCl (Benadryl) 25 mg 1X PRN PRN IV ITCHING; Start 11/26/18 at 14:15; Stop 11/27/18 at 14:14; Status DC Sodium Chloride 1,000 ml @ 400 mls/hr Q2H30M PRN IV PATENCY; Start 11/26/18 at 14:13; Stop 11/27/18 at 02:12; Status DC Info (PHARMACY MONITORING -- do not chart) 1 each PRN DAILY PRN MC SEE COMMENTS ; Start 11/26/18 at 14:15; Stop 11/30/18 at 09:14; Status DC Multivitamins (Thera M Plus) 1 tab DAILY PO Last administered on 12/01/18at 08: 33; Start 11/27/18 at 09:00 Darbepoetin Jace (Aranesp) 100 mcg WEEKLYHS SQ Last administered on 11/26/18at 20:53; Start 11/26/18 at 21:00 Lidocaine HCl 48 ml/Sodium Bicarbonate 12 meq/Miscellaneous 60 ml @ 60 mls/hr 1X ONCE ID ; Start 11/28/18 at 06:00; Stop 11/28/18 at 06:59; Status DC Ondansetron HCl (Zofran) 4 mg PRN Q6HRS PRN IV NAUSEA/VOMITING; Start 11/28/18 at 07:00; Stop 11/28/18 at 20:00; Status DC Fentanyl Citrate (Fentanyl 2ml Vial) 25 mcg PRN Q5MIN PRN IV MILD PAIN; Start 11/28/18 at 07:00; Stop 11/28/18 at 20:00; Status DC Fentanyl Citrate (Fentanyl 2ml Vial) 50 mcg PRN Q5MIN PRN IV MODERATE TO SEVERE PAIN Last administered on 11/28/18at 10:14; Start 11/28/18 at 07:00; Stop 11/28/18 at 20:00; Status DC Morphine Sulfate (Morphine Sulfate) 1 mg PRN Q10MIN PRN IV SEVERE PAIN; Start 11/28/18 at 07:00; Stop 11/28/18 at 20:00; Status DC Ringer's Solution 1,000 ml @ 30 mls/hr Q24H IV ; Start 11/28/18 at 07:00; Stop 11/28/18 at 18:59; Status DC Lidocaine HCl (Xylocaine-Mpf 1% 2ml Vial) 2 ml PRN 1X PRN ID PRIOR TO IV START ; Start 11/28/18 at 07:00; Stop 11/28/18 at 20:00; Status DC Hydromorphone HCl (Dilaudid) 0.5 mg PRN Q10MIN PRN IV SEV PAIN, Second choice; Start 11/28/18 at 07:00; Stop 11/28/18 at 20:00; Status DC Prochlorperazine Edisylate (Compazine) 5 mg PACU PRN PRN IV NAUSEA, MRX1; Start 11/28/18 at 07:00; Stop 11/28/18 at 20:00; Status DC Vancomycin HCl 500 mg/Sodium Chloride 100 ml @ 100 mls/hr 1X ONCE IV Last administered on 11/27/18at 13:29; Start 11/27/18 at 13:00; Stop 11/27/18 at 13:59 ; Status DC Vancomycin HCl 500 mg/Sodium Chloride 100 ml @ 100 mls/hr QTUTHSA IV Last administered on 11/30/18at 17:47; Start 11/28/18 at 16:00 Sodium Chloride 1,000 ml @ 1,000 mls/hr Q1H PRN IV hypotension; Start 11/28/18 at 07:04; Stop 11/28/18 at 13:03; Status DC Albumin Human 200 ml @ 200 mls/hr 1X PRN PRN IV Hypotension; Start 11/28/18 at 07:15; Stop 11/28/18 at 13:14; Status DC Acetaminophen (Tylenol) 500 mg 1X PRN PRN PO MILD PAIN / TEMP; Start 11/28/18 at 07:15; Stop 11/29/18 at 07:14; Status DC Diphenhydramine HCl (Benadryl) 25 mg 1X PRN PRN IV ITCHING; Start 11/28/18 at 07:15; Stop 11/29/18 at 07:14; Status DC Diphenhydramine HCl (Benadryl) 25 mg 1X PRN PRN IV ITCHING; Start 11/28/18 at 07:15; Stop 11/29/18 at 07:14; Status DC Sodium Chloride 1,000 ml @ 400 mls/hr Q2H30M PRN IV PATENCY; Start 11/28/18 at 07:04; Stop 11/28/18 at 19:03; Status DC Info (PHARMACY MONITORING -- do not chart) 1 each PRN DAILY PRN MC SEE COMMENTS ; Start 11/28/18 at 07:15; Status Cancel Propofol 20 ml @ As Directed STK-MED ONCE IV ; Start 11/28/18 at 08:23; Stop at 08:24; Status DC Lidocaine HCl (Lidocaine Pf 2% Vial) 5 ml STK-MED ONCE .ROUTE ; Start 11/28/18 at 08:23; Stop 11/28/18 at 08:24; Status DC Phenylephrine HCl (PHENYLEPHRINE in 0.9% NACL PF) 1 mg STK-MED ONCE IV ; Start 11/28/18 at 08:23; Stop 11/28/18 at 08:24; Status DC Dexamethasone Sodium Phosphate (Decadron) 20 mg STK-MED ONCE .ROUTE ; Start at 08:23; Stop 11/28/18 at 08:24; Status DC Famotidine (Pepcid Vial) 20 mg STK-MED ONCE .ROUTE ; Start 11/28/18 at 08:23; Stop 11/28/18 at 08:24; Status DC Ondansetron HCl (Zofran) 4 mg STK-MED ONCE .ROUTE ; Start 11/28/18 at 08:23; Stop 11/28/18 at 08:24; Status DC Silver Sulfadiazine (Silvadene) 25 ayaz STK-MED ONCE TP ; Start 11/28/18 at 07:36 ; Stop 11/28/18 at 08:37; Status DC Morphine Sulfate (Morphine Sulfate) 2 mg PRN Q2HR PRN IV MODERATE TO SEVERE PAIN; Start 11/28/18 at 09:15 Sevoflurane (Ultane) 30 ml STK-MED ONCE IH ; Start 11/28/18 at 09:41; Stop 11/28 at 09:42; Status DC Fentanyl Citrate (Fentanyl 2ml Vial) 100 mcg STK-MED ONCE .ROUTE ; Start at 10:12; Stop 11/28/18 at 10:13; Status DC Sodium Chloride 1,000 ml @ 1,000 mls/hr Q1H PRN IV hypotension; Start 11/30/18 at 11:00; Stop 11/30/18 at 16:59; Status DC Sodium Chloride 1,000 ml @ 400 mls/hr Q2H30M PRN IV PATENCY; Start 11/30/18 at 11:00; Stop 11/30/18 at 22:59; Status DC Info (PHARMACY MONITORING -- do not chart) 1 each PRN DAILY PRN MC SEE COMMENTS ; Start 11/30/18 at 16:15; Status UNV Info (PHARMACY MONITORING -- do not chart) 1 each PRN DAILY PRN MC SEE COMMENTS ; Start 11/30/18 at 16:15 Active Scripts Active Isosorbide Mononitrate Er (Isosorbide Mononitrate) 30 Mg Tab.er.24h 30 Mg PO DAILY 30 Days Reported Aspirin 325 Mg Tablet 1 Tab PO DAILY Coreg (Carvedilol) 3.125 Mg Tablet 3.125 Mg PO BIDWMEALS Magnesium (Magnesium Oxide) 400 Mg Capsule 400 Mg PO DAILY Levothyroxine Sodium 175 Mcg Tablet 175 Mcg PO DAILYAC Plavix (Clopidogrel Bisulfate) 75 Mg Tablet 75 Mg PO DAILY Calcium Carbonate 500 Mg Tablet 500 Mg PO BID Lipitor (Atorvastatin Calcium) 80 Mg Tablet 40 Mg PO HS Keppra (Levetiracetam) 1,000 Mg Tablet 1 Tab PO BID Endocet 10-325 Mg Tablet (Oxycodone Hcl/Acetaminophen) 1 Each Tablet 1 Tab PO QID Flovent 110MCG Hfa (Fluticasone Propionate) 12 Gm Aer.w.adap 2 Puff IH BID Zolpidem Tartrate 5 Mg Tablet 1 Tab PO QHS Mirapex (Pramipexole Di-Hcl) 0.25 Mg Tablet 1 Tab PO DAILY Tylenol (Acetaminophen) 325 Mg Tablet 650 Mg PO PRN Q6HRS PRN Famotidine 20 Mg Tablet 20 Mg PO HS Ventolin Hfa Inhaler (Albuterol Sulfate) 18 Gm Hfa.aer.ad 1 Puff INH Q6HRS PRN Vitals/I & O Vital Sign - Last 24 Hours 11/30/18 11/30/18 11/30/18 11/30/18 16:41 17:13 17:15 18:09 Pulse 82 82 Resp 20 B/P (MAP) 122/55 108/59 Pulse Ox 94 O2 Delivery Room Air Room Air 11/30/18 11/30/18 11/30/18 11/30/18 19:00 20:00 20:58 21:58 Temp 98.6 98.6 Pulse 76 Resp 18 B/P (MAP) 111/55 (73) Pulse Ox 98 98 O2 Delivery Room Air Room Air Room Air O2 Flow Rate 2.0 2.0 11/30/18 12/01/18 12/01/18 12/01/18 22:37 03:00 07:00 08:00 Temp 98.6 98.5 99.1 98.6 98.5 99.1 Pulse 77 83 86 Resp 18 18 20 B/P (MAP) 124/60 (81) 131/53 (79) 132/61 (84) Pulse Ox 99 93 92 O2 Delivery Room Air Room Air Room Air Room Air O2 Flow Rate 2.0 12/01/18 12/01/18 12/01/18 12/01/18 08:34 08:49 08:50 09:34 Pulse 86 86 Resp 20 18 B/P (MAP) 132/61 132/61 Pulse Ox 94 94 O2 Delivery Room Air Room Air 12/01/18 11:00 Temp 98.5 98.5 Pulse 78 Resp 20 B/P (MAP) 133/54 (80) Pulse Ox 94 O2 Delivery Room Air O2 Flow Rate 2.0 Intake and Output 11/30/18 11/30/18 12/01/18 15:00 23:00 07:00 Intake Total 100 ml 0 ml 110 ml Output Total 0 ml Balance 100 ml 0 ml 110 ml VIC [email or web address] III DO Dec 01, 2018 12:32
[2018-12-01 15:00] VITALS: BP 120/55
[2018-12-01 19:00] VITALS: BP 117/57
[2018-12-01] MEDS: FAMOTIDINE 20 MG TABLET. PO SCH (20:53)
[2018-12-01] MEDS: ZOLPIDEM 5 MG TABLET. PO SCH (20:53)
[2018-12-01] MEDS: ATORVASTATIN CALCIUM 40 MG TABLET. PO SCH (20:54)
[2018-12-01 22:43] VITALS: BP 114/50
[2018-12-02 02:57] VITALS: BP 138/60
[2018-12-02] MEDS: HEPARIN for SUB-Q USE 5,000 UNIT/ML VIAL. SQ SCH ×3 (05:39→22:04)
[2018-12-02 07:00] VITALS: BP 137/55
[2018-12-02] MEDS: BUDESONIDE 0.5 MG/2 ML NEBU. NEB SCH ×2 (07:56→19:27)
[2018-12-02] MEDS: CALCIUM CARBONATE 500 MG TABLET PO SCH ×2 (08:14→21:07)
[2018-12-02] MEDS: LACTOBACILLUS RHAMNOSUS GG 1 CAPSULE. PO SCH ×2 (08:14→21:05)
[2018-12-02] MEDS: PRAMIPEXOLE 0.25 MG TABLET. PO SCH (08:14)
[2018-12-02] MEDS: LEVOTHYROXINE 175 MCG TABLET PO SCH (08:14)
[2018-12-02] MEDS: ASPIRIN 325 MG TABLET PO SCH (08:14)
[2018-12-02] MEDS: oxyCODONE/APAP 10/325 1 TAB TABLET PO SCH ×4 (08:14→21:08)
[2018-12-02] MEDS: MULTIVITAMIN with MINERAL TABLET. PO SCH (08:15)
[2018-12-02] MEDS: ISOSORBIDE MONONITRATE ER 30 MG TAB.ER.24H PO SCH (08:15)
[2018-12-02] MEDS: CLOPIDOGREL BISULFATE 75 MG TABLET PO SCH (08:15)
[2018-12-02] MEDS: MAGNESIUM OXIDE 400 MG TABLET PO SCH (08:15)
[2018-12-02] MEDS: levETIRAcetam 500 MG TABLET PO SCH ×2 (08:15→21:05)
[2018-12-02] MEDS: MEROPENEM 500 MG in IV NORMAL SALINE 50ML 50 ML IV SCH (08:16)
[2018-12-02] MEDS: CARVEDILOL 3.125 MG TABLET. PO SCH ×2 (08:16→17:17)
[2018-12-02 09:50] LABS: BASO # 0.1 x10^3/uL (0.0-0.2); BASO % 1 % (0-3); EOS # 0.2 x10^3/uL (0.0-0.7); EOS % 2 % (0-3); HEMATOCRIT 26.3 % (39.0-53.0); HEMOGLOBIN 8.4 g/dL (13.0-17.5); LYMPH # 1.4 x10^3/uL (1.0-4.8); LYMPH % 13 % (24-48); MEAN CORPUSCULAR HEMOGLOBIN 28 pg (25-35); MEAN CORPUSCULAR HGB CONC 32 g/dL (31-37); MEAN CORPUSCULAR VOLUME 88 fL (79-100); MONO # 1.1 x10^3/uL (0.0-1.1); MONO % 10 % (0-9); NEUT # 8.1 x10^3uL (1.8-7.7); NEUT % 74 % (31-73); PLATELET COUNT 351 x10^3/uL (140-400); RED BLOOD COUNT 2.99 x10^6/uL (4.30-5.70); RED CELL DISTRIBUTION WIDTH 16.4 % (11.5-14.5)
[2018-12-02 10:05] LABS: CALCIUM 9.6 mg/dL (8.5-10.1); GFR 8.6; POTASSIUM 4.1 mmol/L (3.5-5.1)
[2018-12-02 11:00] VITALS: BP 129/57
--- NOTE | 2018-12-02 11:25 | PDOC ---
Infectious Disease Note Subjective Subjective Comfortable, denies pain/F/C/S Denies N/V/D ROS ROS o/w neg Vital Sign Vital Signs Vital Signs Date Time Temp Pulse Resp B/P (MAP) Pulse Ox O2 Delivery O2 Flow Rate FiO2 12/02/18 09:47 88 Room Air 2.0 12/02/18 08:16 88 137/55 12/02/18 07:00 98.4 18 98.4 Physical Exam PHYSICAL EXAM GENERAL: Sitting upright in bed, alert, NAD HEENT: Oral cavity clear NECK: Supple LUNGS: Clear bilaterally. HEART: S1, S2. ABDOMEN: Soft, obese. Bowel sounds present. EXTREMITIES: Left BKA stump healed, RLE 1+ edema, wound vac in place. DERMATOLOGIC: Warm without generalized rash. NEUROLOGIC: Alert and oriented x 3. PIV looks okay. Shunt, left upper extremity looks. Labs Lab Laboratory Tests Test 12/01/18 11:27 12/01/18 17:01 12/01/18 20:34 12/02/18 07:26 Glucose (Fingerstick) 130 mg/dL (70-99) 158 mg/dL (70-99) 210 mg/dL (70-99) 133 mg/dL (70-99) Test 12/02/18 09:05 12/02/18 11:06 White Blood Count 11.0 x10^3/uL (4.0-11.0) Red Blood Count 2.99 x10^6/uL (4.30-5.70) Hemoglobin 8.4 g/dL (13.0-17.5) Hematocrit 26.3 % (39.0-53.0) Mean Corpuscular Volume 88 fL (79-100) Mean Corpuscular Hemoglobin 28 pg (25-35) Mean Corpuscular Hemoglobin Concent 32 g/dL (31-37) Red Cell Distribution Width 16.4 % (11.5-14.5) Platelet Count 351 x10^3/uL (140-400) Neutrophils (%) (Auto) 74 % (31-73) Lymphocytes (%) (Auto) 13 % (24-48) Monocytes (%) (Auto) 10 % (0-9) Eosinophils (%) (Auto) 2 % (0-3) Basophils (%) (Auto) 1 % (0-3) Neutrophils # (Auto) 8.1 x10^3uL (1.8-7.7) Lymphocytes # (Auto) 1.4 x10^3/uL (1.0-4.8) Monocytes # (Auto) 1.1 x10^3/uL (0.0-1.1) Eosinophils # (Auto) 0.2 x10^3/uL (0.0-0.7) Basophils # (Auto) 0.1 x10^3/uL (0.0-0.2) Sodium Level 136 mmol/L (136-145) Potassium Level 4.1 mmol/L (3.5-5.1) Chloride Level 95 mmol/L (98-107) Carbon Dioxide Level 33 mmol/L (21-32) Anion Gap 8 (6-14) Blood Urea Nitrogen 34 mg/dL (8-26) Creatinine 8.0 mg/dL (0.7-1.3) Estimated GFR (Cockcroft-Gault) 8.6 Glucose Level 137 mg/dL (70-99) Calcium Level 9.6 mg/dL (8.5-10.1) Glucose (Fingerstick) 136 mg/dL (70-99) Micro AEROBIC RES 1 Final Staphylococcus aureus 3+ Based on susceptibility to oxacillin this isolate would be susceptible to: *Penicillinase-stable penicillins, such as: Cloxacillin, Dicloxacillin, Nafcillin *Beta-lactam combination agents, such as: Amoxicillin-clavulanic acid, Ampicillin-sulbactam, Piperacillin-tazobactam *Oral cephems, such as: Cefaclor, Cefdinir, Cefpodoxime, Cefprozil, Cefuroxime, Cephalexin, Loracarbef *Parenteral cephems, such as: Cefazolin, Cefepime, Cefotaxime, Cefotetan, Ceftaroline, Ceftizoxime, Ceftriaxone, Cefuroxime *Carbapenems, such as: Doripenem, Ertapenem, Imipenem, Meropenem ANTIMICROBIAL SUSCEPTIBILITY Final Comment S = Susceptible; I = Intermediate; R = Resistant P = Positive; N = Negative MICS are expressed in micrograms per mL Antibiotic RSLT#1 RSLT#2 RSLT#3 RSLT#4 Ciprofloxacin S<=0.5 CONTINUED ON NEXT PAGE RUN DATE: 12/01/18 PAGE 2 RUN TIME: 1400 [facility] [address] [facility] [place] [address] Meng Gann M.D., [employer] SPEC: [id number] PATIENT: BHAVYA WILKES [id number] (Continued) -- Procedure Result ANTIMICROBIAL SUSCEPTIBILITY Final (continued) Clindamycin S<=0.25 Erythromycin S<=0.25 Gentamicin S<=0.5 Levofloxacin S<=0.12 Linezolid S =2 Moxifloxacin S<=0.25 Oxacillin S =0.5 Penicillin R>=0.5 Quinupristin/Dalfopristin S<=0.25 Rifampin S<=0.5 Tetracycline S<=1 Trimethoprim/Sulfa S<=10 Vancomycin S =1 Microbiology 11/25/18 Blood Culture - Final, Complete NO GROWTH AFTER 5 DAYS 11/28/18 Anaerobic/Aerobic Culture, Resulted Pending 11/28/18 Anaerobic Culture Result 1 (BLAKE), Resulted Pending 11/28/18 Aerobic Culture - Final, Resulted 11/28/18 Aerobic Culture Result 1 (BLAKE) - Final, Resulted 11/28/18 Antimicrobic Susceptibility - Final, Resulted 11/28/18 Gram Stain - Final, Resulted 11/28/18 Gram Stain Result 1 (BLAKE) - Final, Resulted 11/28/18 Gram Stain Result 2 (BLAKE) - Final, Resulted Objective Assessment Right foot infection with 2nd and 3rd toe infection with necrosis s/p amputation on 11/28. MSSA RLE Cellulitis h/o recent fifth and fourth toe amputation sites with osteomyelitis with deep tissue infection with cultures positive for Peptostreptococcus and Veillonella, treated with IV meropenem, which he completed on 11/10/[address] with wound [address]AC in place. Fever, improved Leukocytosis, improved End-stage renal disease, on hemodialysis. Diabetes mellitus with peripheral neuropathy. Peripheral vascular disease. PENICILLIN allergy, has tolerated meropenem well. Right third toe proximal phalanx fracture, new Plan Plan of Care Discont vanc Waiting line Placement Home with Merrem 500 mg IV Q day for 5 weeks given previous cults Q Sunday CBC/CMP/Sed rate fax to [phone] Probiotic wound vac/care per Vascular F/u ID office 2 weeks [phone] JUAN ANTONIO CHASE MD Dec 02, 2018 11:25
--- NOTE | 2018-12-02 11:32 | NUR ---
Wound care: Patient seen per wound care follow up. See wound assessment. Vac dressing removed, wound cleansed, assessed, measured, pictured. Skin prepped and an ostomy ring to rell-wound. 2 pieces of cash foam placed into wound bed, vac tracked up to right lower leg, good seal maintained at 125mmHg continuous. No other wounds noted upon complete head to toe assessment. Wound care will follow up for vac change on Sunday.
--- NOTE | 2018-12-02 11:37 | PDOC ---
Renal-Progress Notes Subjective Notes Notes NO NEW COMPLAINTS History of Present Illness Hx of present illness STABLE Vitals Vitals Vital Signs Date Time Temp Pulse Resp B/P (MAP) Pulse Ox O2 Delivery O2 Flow Rate FiO2 12/02/18 11:00 98.5 83 18 129/57 (81) 91 Room Air 98.5 12/02/18 09:47 2.0 Weight Weight [ ] I.O. Intake and Output Intake and Output 12/02/18 06:59 Intake Total 360 ml Output Total 275 ml Balance 85 ml Intake Oral 360 ml Output Urine Total 275 ml # Bowel Movements 1 Labs Labs Laboratory Tests Test 12/01/18 17:01 12/01/18 20:34 12/02/18 07:26 12/02/18 09:05 Glucose (Fingerstick) 158 mg/dL (70-99) 210 mg/dL (70-99) 133 mg/dL (70-99) White Blood Count 11.0 x10^3/uL (4.0-11.0) Red Blood Count 2.99 x10^6/uL (4.30-5.70) Hemoglobin 8.4 g/dL (13.0-17.5) Hematocrit 26.3 % (39.0-53.0) Mean Corpuscular Volume 88 fL (79-100) Mean Corpuscular Hemoglobin 28 pg (25-35) Mean Corpuscular Hemoglobin Concent 32 g/dL (31-37) Red Cell Distribution Width 16.4 % (11.5-14.5) Platelet Count 351 x10^3/uL (140-400) Neutrophils (%) (Auto) 74 % (31-73) Lymphocytes (%) (Auto) 13 % (24-48) Monocytes (%) (Auto) 10 % (0-9) Eosinophils (%) (Auto) 2 % (0-3) Basophils (%) (Auto) 1 % (0-3) Neutrophils # (Auto) 8.1 x10^3uL (1.8-7.7) Lymphocytes # (Auto) 1.4 x10^3/uL (1.0-4.8) Monocytes # (Auto) 1.1 x10^3/uL (0.0-1.1) Eosinophils # (Auto) 0.2 x10^3/uL (0.0-0.7) Basophils # (Auto) 0.1 x10^3/uL (0.0-0.2) Sodium Level 136 mmol/L (136-145) Potassium Level 4.1 mmol/L (3.5-5.1) Chloride Level 95 mmol/L (98-107) Carbon Dioxide Level 33 mmol/L (21-32) Anion Gap 8 (6-14) Blood Urea Nitrogen 34 mg/dL (8-26) Creatinine 8.0 mg/dL (0.7-1.3) Estimated GFR (Cockcroft-Gault) 8.6 Glucose Level 137 mg/dL (70-99) Calcium Level 9.6 mg/dL (8.5-10.1) Test 12/02/18 11:06 Glucose (Fingerstick) 136 mg/dL (70-99) Micro Micro Microbiology 11/25/18 Blood Culture - Final, Complete NO GROWTH AFTER 5 DAYS 11/28/18 Anaerobic/Aerobic Culture, Resulted Pending 11/28/18 Anaerobic Culture Result 1 (BLAKE), Resulted Pending 11/28/18 Aerobic Culture - Final, Resulted 11/28/18 Aerobic Culture Result 1 (BLAKE) - Final, Resulted 11/28/18 Antimicrobic Susceptibility - Final, Resulted 11/28/18 Gram Stain - Final, Resulted 11/28/18 Gram Stain Result 1 (BLAKE) - Final, Resulted 11/28/18 Gram Stain Result 2 (BLAKE) - Final, Resulted Review of Systems Constitutional: yes: alert, oriented Ears/Nose/Throat: Yes: no symptom reported Eyes: Yes: no symptom reported Pulmonary: Yes no symptom reported Cardiovascular: Yes no symptom reported Gastrointestional: Yes: no symptom reported Genitourinary: Yes: no symptom reported Musculoskeletal: Yes: no symptom reported Skin: Yes no symptom reported Psychiatric/Neurological: Yes: no symptom reported Endocrine: Yes: no symptom reported Physical Exam General Appearance: no apparent distress Skin: warm Respiratory: decreased breath sounds Heart: S1S2 Abdomen: soft, bowel sounds present Genitourinary: bladder flat Extremities: pulses present Neurology: alert Musculoskeletal: Osteoarthritis Assessment Assessment IMP ESRD ANEMIA DM II NEUROPATHY HTN S/P AMP OF RIGHT TOES PAD HX PLAN MID LINE OK SINCE CANT HAVE CENTRAL LINE DUE TO CENTRAL VENOUS STENOSIS ARANESP ANTIBIOTICS HD TOMORROW AND TTS GRACE VILLEDA MD Dec 02, 2018 11:37
--- NOTE | 2018-12-02 12:20 | PDOC ---
PROGRESS NOTES Subjective Subjective Pt seen in his hospital bed, no C/O VAC placed on foot today Objective Objective Vital Signs Date Time Temp Pulse Resp B/P (MAP) Pulse Ox O2 Delivery O2 Flow Rate FiO2 12/02/18 11:00 98.5 83 18 129/57 (81) 91 Room Air 98.5 12/02/18 09:47 2.0 Intake and Output 12/02/18 06:59 Intake Total 360 ml Output Total 275 ml Balance 85 ml Intake Oral 360 ml Output Urine Total 275 ml # Bowel Movements 1 Physical Exam Physical Exam VAC in position looks good, wound edges healthy good seal Diagnosis DIAGNOSIS s/p foot open amp -- VAC in place -- had previous angiograms by me -- 2 vessel flow to foot should be able to heal Assessment Assessment Problems Medical Problems: (1) Acute respiratory distress Status: Acute (2) Diabetic infection of right foot Status: Acute (3) Fever Status: Acute (4) HCAP (healthcare-associated pneumonia) Status: Acute (5) History of left below knee amputation Status: Acute (6) Sepsis Status: Acute (7) Symptomatic anemia Status: Acute (8) Toe fracture, right Status: Acute Plan Plan of [facility] vs rehab when home VAC set up Comment Review of Relevant I have reviewed the following items lila (where applicable) has been applied. Labs Laboratory Tests Test 11/30/18 16:43 11/30/18 20:47 12/01/18 07:24 12/01/18 11:27 Glucose (Fingerstick) 127 mg/dL (70-99) 129 mg/dL (70-99) 115 mg/dL (70-99) 130 mg/dL (70-99) Test 12/01/18 17:01 12/01/18 20:34 12/02/18 07:26 12/02/18 09:05 Glucose (Fingerstick) 158 mg/dL (70-99) 210 mg/dL (70-99) 133 mg/dL (70-99) White Blood Count 11.0 x10^3/uL (4.0-11.0) Red Blood Count 2.99 x10^6/uL (4.30-5.70) Hemoglobin 8.4 g/dL (13.0-17.5) Hematocrit 26.3 % (39.0-53.0) Mean Corpuscular Volume 88 fL (79-100) Mean Corpuscular Hemoglobin 28 pg (25-35) Mean Corpuscular Hemoglobin Concent 32 g/dL (31-37) Red Cell Distribution Width 16.4 % (11.5-14.5) Platelet Count 351 x10^3/uL (140-400) Neutrophils (%) (Auto) 74 % (31-73) Lymphocytes (%) (Auto) 13 % (24-48) Monocytes (%) (Auto) 10 % (0-9) Eosinophils (%) (Auto) 2 % (0-3) Basophils (%) (Auto) 1 % (0-3) Neutrophils # (Auto) 8.1 x10^3uL (1.8-7.7) Lymphocytes # (Auto) 1.4 x10^3/uL (1.0-4.8) Monocytes # (Auto) 1.1 x10^3/uL (0.0-1.1) Eosinophils # (Auto) 0.2 x10^3/uL (0.0-0.7) Basophils # (Auto) 0.1 x10^3/uL (0.0-0.2) Sodium Level 136 mmol/L (136-145) Potassium Level 4.1 mmol/L (3.5-5.1) Chloride Level 95 mmol/L (98-107) Carbon Dioxide Level 33 mmol/L (21-32) Anion Gap 8 (6-14) Blood Urea Nitrogen 34 mg/dL (8-26) Creatinine 8.0 mg/dL (0.7-1.3) Estimated GFR (Cockcroft-Gault) 8.6 Glucose Level 137 mg/dL (70-99) Calcium Level 9.6 mg/dL (8.5-10.1) Test 12/02/18 11:06 Glucose (Fingerstick) 136 mg/dL (70-99) Laboratory Tests Test 12/01/18 17:01 12/01/18 20:34 12/02/18 07:26 12/02/18 09:05 Glucose (Fingerstick) 158 mg/dL (70-99) 210 mg/dL (70-99) 133 mg/dL (70-99) White Blood Count 11.0 x10^3/uL (4.0-11.0) Red Blood Count 2.99 x10^6/uL (4.30-5.70) Hemoglobin 8.4 g/dL (13.0-17.5) Hematocrit 26.3 % (39.0-53.0) Mean Corpuscular Volume 88 fL (79-100) Mean Corpuscular Hemoglobin 28 pg (25-35) Mean Corpuscular Hemoglobin Concent 32 g/dL (31-37) Red Cell Distribution Width 16.4 % (11.5-14.5) Platelet Count 351 x10^3/uL (140-400) Neutrophils (%) (Auto) 74 % (31-73) Lymphocytes (%) (Auto) 13 % (24-48) Monocytes (%) (Auto) 10 % (0-9) Eosinophils (%) (Auto) 2 % (0-3) Basophils (%) (Auto) 1 % (0-3) Neutrophils # (Auto) 8.1 x10^3uL (1.8-7.7) Lymphocytes # (Auto) 1.4 x10^3/uL (1.0-4.8) Monocytes # (Auto) 1.1 x10^3/uL (0.0-1.1) Eosinophils # (Auto) 0.2 x10^3/uL (0.0-0.7) Basophils # (Auto) 0.1 x10^3/uL (0.0-0.2) Sodium Level 136 mmol/L (136-145) Potassium Level 4.1 mmol/L (3.5-5.1) Chloride Level 95 mmol/L (98-107) Carbon Dioxide Level 33 mmol/L (21-32) Anion Gap 8 (6-14) Blood Urea Nitrogen 34 mg/dL (8-26) Creatinine 8.0 mg/dL (0.7-1.3) Estimated GFR (Cockcroft-Gault) 8.6 Glucose Level 137 mg/dL (70-99) Calcium Level 9.6 mg/dL (8.5-10.1) Test 12/02/18 11:06 Glucose (Fingerstick) 136 mg/dL (70-99) Microbiology 11/25/18 Blood Culture - Final, Complete NO GROWTH AFTER 5 DAYS 11/28/18 Anaerobic/Aerobic Culture, Resulted Pending 11/28/18 Anaerobic Culture Result 1 (BLAKE), Resulted Pending 11/28/18 Aerobic Culture - Final, Resulted 11/28/18 Aerobic Culture Result 1 (BLAKE) - Final, Resulted 11/28/18 Antimicrobic Susceptibility - Final, Resulted 11/28/18 Gram Stain - Final, Resulted 11/28/18 Gram Stain Result 1 (BLAKE) - Final, Resulted 11/28/18 Gram Stain Result 2 (BLAKE) - Final, Resulted Medications Current Medications Acetaminophen (Tylenol) 1,000 mg 1X ONCE PO Last administered on 11/25/18 14:04; Start 11/25/18 at 12:45; Stop 11/25/18 at 12:48; Status DC Sodium Chloride 500 ml @ 500 mls/hr 1X ONCE IV Last administered on 11/25/18 14:00; Start 11/25/18 at 12:45; Stop 11/25/18 at 13:44; Status DC Sodium Chloride 1,000 ml @ 1,000 mls/hr 1X ONCE IV Last administered on 11/25/18at 14:39; Start 11/25/18 at 14:30; Stop 11/25/18 at 15:29; Status DC Albuterol/ Ipratropium (Duoneb) 3 ml 1X ONCE NEB Last administered on 11/25/18at 14:30; Start 11/25/18 at 14:30; Stop 11/25/18 at 14:31; Status DC Vancomycin HCl 2 gm/Sodium Chloride 500 ml @ 250 mls/hr 1X ONCE IV Last administered on 11/25/18 14:30; Start 11/25/18 at 14:30; Stop 11/25/18 at 16:29; Status DC Levofloxacin/ Dextrose 150 ml @ 100 mls/hr 1X ONCE IV Last administered on 11/25/18at 14:39; Start 11/25/18 at 14:30; Stop 11/25/18 at 15:59; Status DC Acetaminophen/ Hydrocodone Bitart (Lortab 7.5/325) 1 tab PRN Q4HRS PRN PO PAIN Last administered on 11/29/18at 12:26; Start 11/25/18 at 17:15 Sodium Chloride (Normal Saline Flush) 3 ml QSHIFT PRN IV AFTER MEDS AND BLOOD DRAWS; Start 11/25/18 at 17:30 Vancomycin HCl (Vanco Per Pharmacy) 1 each PRN DAILY PRN MC SEE COMMENTS Last administered on 12/01/18 10:27; Start 11/25/18 at 17:30 Levofloxacin/ Dextrose (Levaquin Per Pharmacy) 1 each PRN DAILY PRN MC SEE COMMENTS; Start 11/25/18 at 17:30; Stop 11/26/18 at 09:31; Status DC Levofloxacin/ Dextrose 100 ml @ 100 mls/hr Q48H IV ; Start 11/27/18 at 14:00; Stop 11/27/18 at 14:00; Status DC Heparin Sodium (Porcine) (Heparin Sodium) 5,000 unit Q8HRS SQ Last administered on 12/02/18 05:39; Start 11/25/18 at 22:00 Acetaminophen (Tylenol) 650 mg PRN Q6HRS PRN PO FEVER Last administered on 11/28/18 04:45; Start 11/25/18 at 17:45 Aspirin ([place] Aspirin) 325 mg DAILY PO Last administered on 12/02/18 08:14; Start 11/26/18 at 09:00 Calcium Carbonate/ Glycine (Oscal) 500 mg BID PO Last administered on 12/02/18 08:14; Start 11/25/18 at 21:00 Carvedilol (Coreg) 3.125 mg BIDWMEALS PO Last administered on 12/02/18 08:16; Start 11/25/18 at 18:30 Clopidogrel Bisulfate (Plavix) 75 mg DAILY PO Last administered on 12/02/18 08:15; Start 11/26/18 at 09:00 Famotidine (Pepcid) 20 mg HS PO Last administered on 11/25/18at 20:34; Start 11/25/18 at 21:00; Stop 11/26/18 at 08:53; Status DC Isosorbide Mononitrate (Imdur) 30 mg DAILY PO Last administered on 12/02/18 08:15; Start 11/26/18 at 09:00 Levothyroxine Sodium (Synthroid) 175 mcg DAILYAC PO Last administered on 12/02/18 08:14; Start 11/26/18 at 07:30 Oxycodone/ Acetaminophen (Percocet 10/325) 1 tab QID PO Last administered on 12/02/18 08:14; Start 11/25/18 at 21:00 Zolpidem Tartrate (Ambien) 5 mg QHS PO Last administered on 12/01/18 20:53; Start 11/25/18 at 21:00 Albuterol Sulfate (Ventolin Neb Soln) 2.5 mg PRN Q6HRS PRN NEB SHORTNESS OF BREATH Last administered on 11/28/18 15:39; Start 11/25/18 at 17:45 Atorvastatin Calcium (Lipitor) 40 mg QHS PO Last administered on 12/01/18 20:54; Start 11/25/18 at 21:00 Non-Formulary Medication (Fluticasone Propionate (Flovent 110MCG Hfa)) 2 puff BID IH ; Start 11/25/18 at 21:00; Status UNV Levetiracetam (Keppra) 1,000 mg BID PO Last administered on 12/02/18 08:15; Start 11/25/18 at 21:00 Magnesium Oxide (Magnesium Oxide) 400 mg DAILY PO Last administered on 12/02/18 08:15; Start 11/26/18 at 09:00 Pramipexole Dihydrochloride (miraPEX) 0.25 mg DAILY PO Last administered on 08:14; Start 11/26/18 at 09:00 Budesonide (Pulmicort) 0.5 mg RTBID NEB Last administered on 12/02/18 07:56; Start 11/25/18 at 20:00 Vancomycin HCl (Vancomycin Random Level) 1 each 1X ONCE MC Last administered on 11/27/18 06:00; Start 11/27/18 at 06:00; Stop 11/27/18 at 06:01; Status DC Midazolam HCl (Versed) 5 mg STK-MED ONCE .ROUTE ; Start 11/25/18 at 17:58; Stop 11/25/18 at 17:59; Status DC Lactobacillus Rhamnosus (Culturelle) 1 cap BID PO Last administered on 12/02/18 08:14; Start 11/26/18 at 09:00 Midazolam HCl (Versed) 5 mg STK-MED ONCE .ROUTE ; Start 11/25/18 at 18:00; Stop 11/26/18 at 07:42; Status DC Famotidine (Pepcid) 20 mg Q48H PO Last administered on 4/21/19at 20:53; Start 11/27/18 at 21:00 Meropenem 500 mg/ Sodium Chloride 50 ml @ 100 mls/hr DAILY IV Last administered on 12/02/18at 08:16; Start 11/26/18 at 10:00 Sodium Chloride 1,000 ml @ 1,000 mls/hr Q1H PRN IV hypotension; Start 11/26/18 at 14:13; Stop 11/26/18 at 20:12; Status DC Albumin Human 200 ml @ 200 mls/hr 1X PRN PRN IV Hypotension; Start 11/26/18 at 14:15; Stop 11/26/18 at 20:14; Status DC Acetaminophen (Tylenol) 500 mg 1X PRN PRN PO MILD PAIN / TEMP; Start 11/26/18 at 14:15; Stop 11/27/18 at 14:14; Status DC Diphenhydramine HCl (Benadryl) 25 mg 1X PRN PRN IV ITCHING; Start 11/26/18 at 14:15; Stop 11/27/18 at 14:14; Status DC Diphenhydramine HCl (Benadryl) 25 mg 1X PRN PRN IV ITCHING; Start 11/26/18 at 14:15; Stop 11/27/18 at 14:14; Status DC Sodium Chloride 1,000 ml @ 400 mls/hr Q2H30M PRN IV PATENCY; Start 11/26/18 at 14:13; Stop 11/27/18 at 02:12; Status DC Info (PHARMACY MONITORING -- do not chart) 1 each PRN DAILY PRN MC SEE COMMENTS; Start 11/26/18 at 14:15; Stop 11/30/18 at 09:14; Status DC Multivitamins (Thera M Plus) 1 tab DAILY PO Last administered on 12/02/18at 08:15; Start 11/27/18 at 09:00 Darbepoetin Jace (Aranesp) 100 mcg WEEKLYHS SQ Last administered on 11/26/18at 20:53; Start 11/26/18 at 21:00 Lidocaine HCl 48 ml/Sodium Bicarbonate 12 meq/Miscellaneous 60 ml @ 60 mls/hr 1X ONCE ID ; Start 11/28/18 at 06:00; Stop 11/28/18 at 06:59; Status DC Ondansetron HCl (Zofran) 4 mg PRN Q6HRS PRN IV NAUSEA/VOMITING; Start 11/28/18 at 07:00; Stop 11/28/18 at 20:00; Status DC Fentanyl Citrate (Fentanyl 2ml Vial) 25 mcg PRN Q5MIN PRN IV MILD PAIN; Start 11/28/18 at 07:00; Stop 11/28/18 at 20:00; Status DC Fentanyl Citrate (Fentanyl 2ml Vial) 50 mcg PRN Q5MIN PRN IV MODERATE TO SEVERE PAIN Last administered on 11/28/18at 10:14; Start 11/28/18 at 07:00; Stop 11/28/18 at 20:00; Status DC Morphine Sulfate (Morphine Sulfate) 1 mg PRN Q10MIN PRN IV SEVERE PAIN; Start 11/28/18 at 07:00; Stop 11/28/18 at 20:00; Status DC Ringer's Solution 1,000 ml @ 30 mls/hr Q24H IV ; Start 11/28/18 at 07:00; Stop 11/28/18 at 18:59; Status DC Lidocaine HCl (Xylocaine-Mpf 1% 2ml Vial) 2 ml PRN 1X PRN ID PRIOR TO IV START; Start 11/28/18 at 07:00; Stop 11/28/18 at 20:00; Status DC Hydromorphone HCl (Dilaudid) 0.5 mg PRN Q10MIN PRN IV SEV PAIN, Second choice; Start 11/28/18 at 07:00; Stop 11/28/18 at 20:00; Status DC Prochlorperazine Edisylate (Compazine) 5 mg PACU PRN PRN IV NAUSEA, MRX1; Start 11/28/18 at 07:00; Stop 11/28/18 at 20:00; Status DC Vancomycin HCl 500 mg/Sodium Chloride 100 ml @ 100 mls/hr 1X ONCE IV Last administered on 11/27/18at 13:29; Start 11/27/18 at 13:00; Stop 11/27/18 at 13:59; Status DC Vancomycin HCl 500 mg/Sodium Chloride 100 ml @ 100 mls/hr QTUTHSA IV Last admi nistered on 11/30/18at 17:47; Start 11/28/18 at 16:00 Sodium Chloride 1,000 ml @ 1,000 mls/hr Q1H PRN IV hypotension; Start 11/28/18 at 07:04; Stop 11/28/18 at 13:03; Status DC Albumin Human 200 ml @ 200 mls/hr 1X PRN PRN IV Hypotension; Start 11/28/18 at 07:15; Stop 11/28/18 at 13:14; Status DC Acetaminophen (Tylenol) 500 mg 1X PRN PRN PO MILD PAIN / TEMP; Start 11/28/18 at 07:15; Stop 11/29/18 at 07:14; Status DC Diphenhydramine HCl (Benadryl) 25 mg 1X PRN PRN IV ITCHING; Start 11/28/18 at 07:15; Stop 11/29/18 at 07:14; Status DC Diphenhydramine HCl (Benadryl) 25 mg 1X PRN PRN IV ITCHING; Start 11/28/18 at 07:15; Stop 11/29/18 at 07:14; Status DC Sodium Chloride 1,000 ml @ 400 mls/hr Q2H30M PRN IV PATENCY; Start 11/28/18 at 07:04; Stop 11/28/18 at 19:03; Status DC Info (PHARMACY MONITORING -- do not chart) 1 each PRN DAILY PRN MC SEE COMMENTS; Start 11/28/18 at 07:15; Status Cancel Propofol 20 ml @ As Directed STK-MED ONCE IV ; Start 11/28/18 at 08:23; Stop 11/28/18 at 08:24; Status DC Lidocaine HCl (Lidocaine Pf 2% Vial) 5 ml STK-MED ONCE .ROUTE ; Start 11/28/18 at 08:23; Stop 11/28/18 at 08:24; Status DC Phenylephrine HCl (PHENYLEPHRINE in 0.9% NACL PF) 1 mg STK-MED ONCE IV ; Start 11/28/18 at 08:23; Stop 11/28/18 at 08:24; Status DC Dexamethasone Sodium Phosphate (Decadron) 20 mg STK-MED ONCE .ROUTE ; Start 11/28/18 at 08:23; Stop 11/28/18 at 08:24; Status DC Famotidine (Pepcid Vial) 20 mg STK-MED ONCE .ROUTE ; Start 11/28/18 at 08:23; Stop 11/28/18 at 08:24; Status DC Ondansetron HCl (Zofran) 4 mg STK-MED ONCE .ROUTE ; Start 11/28/18 at 08:23; Stop 11/28/18 at 08:24; Status DC Silver Sulfadiazine (Silvadene) 25 ayaz STK-MED ONCE TP ; Start 11/28/18 at 07:36; Stop 11/28/18 at 08:37; Status DC Morphine Sulfate (Morphine Sulfate) 2 mg PRN Q2HR PRN IV MODERATE TO SEVERE PAIN; Start 11/28/18 at 09:15 Sevoflurane (Ultane) 30 ml STK-MED ONCE IH ; Start 11/28/18 at 09:41; Stop 11/28/18 at 09:42; Status DC Fentanyl Citrate (Fentanyl 2ml Vial) 100 mcg STK-MED ONCE .ROUTE ; Start 11/28/18 at 10:12; Stop 11/28/18 at 10:13; Status DC Sodium Chloride 1,000 ml @ 1,000 mls/hr Q1H PRN IV hypotension; Start 11/30/18 at 11:00; Stop 11/30/18 at 16:59; Status DC Sodium Chloride 1,000 ml @ 400 mls/hr Q2H30M PRN IV PATENCY; Start 11/30/18 at 11:00; Stop 11/30/18 at 22:59; Status DC Info (PHARMACY MONITORING -- do not chart) 1 each PRN DAILY PRN MC SEE COMMENTS; Start 11/30/18 at 16:15; Status UNV Info (PHARMACY MONITORING -- do not chart) 1 each PRN DAILY PRN MC SEE COMMENTS; Start 11/30/18 at 16:15 Active Scripts Active Isosorbide Mononitrate Er (Isosorbide Mononitrate) 30 Mg Tab.er.24h 30 Mg PO DAILY 30 Days Reported Aspirin 325 Mg Tablet 1 Tab PO DAILY Coreg (Carvedilol) 3.125 Mg Tablet 3.125 Mg PO BIDWMEALS Magnesium (Magnesium Oxide) 400 Mg Capsule 400 Mg PO DAILY Levothyroxine Sodium 175 Mcg Tablet 175 Mcg PO DAILYAC Plavix (Clopidogrel Bisulfate) 75 Mg Tablet 75 Mg PO DAILY Calcium Carbonate 500 Mg Tablet 500 Mg PO BID Lipitor (Atorvastatin Calcium) 80 Mg Tablet 40 Mg PO HS Keppra (Levetiracetam) 1,000 Mg Tablet 1 Tab PO BID Endocet 10-325 Mg Tablet (Oxycodone Hcl/Acetaminophen) 1 Each Tablet 1 Tab PO QID Flovent 110MCG Hfa (Fluticasone Propionate) 12 Gm Aer.w.adap 2 Puff IH BID Zolpidem Tartrate 5 Mg Tablet 1 Tab PO QHS Mirapex (Pramipexole Di-Hcl) 0.25 Mg Tablet 1 Tab PO DAILY Tylenol (Acetaminophen) 325 Mg Tablet 650 Mg PO PRN Q6HRS PRN Famotidine 20 Mg Tablet 20 Mg PO HS Ventolin Hfa Inhaler (Albuterol Sulfate) 18 Gm Hfa.aer.ad 1 Puff INH Q6HRS PRN Vitals/I & O Vital Sign - Last 24 Hours 12/01/18 12/01/18 12/01/18 12/01/18 15:00 15:02 17:55 17:56 Temp 98.7 98.7 Pulse 84 86 Resp 16 20 20 B/P (MAP) 120/55 (76) 139/74 Pulse Ox 96 94 94 O2 Delivery Room Air Room Air Room Air O2 Flow Rate 2.0 12/01/18 12/01/18 12/01/18 12/01/18 19:00 20:00 20:24 20:53 Temp 98.5 98.5 Pulse 83 Resp 18 16 B/P (MAP) 117/57 (77) Pulse Ox 94 O2 Delivery Room Air Room Air Room Air Room Air 12/01/18 12/01/18 12/02/18 12/02/18 21:59 22:43 02:57 07:00 Temp 98.0 98.6 98.4 98.0 98.6 98.4 Pulse 74 85 88 Resp 16 18 18 18 B/P (MAP) 114/50 (71) 138/60 (86) 137/55 (82) Pulse Ox 97 96 93 O2 Delivery Room Air Room Air Room Air 12/02/18 12/02/18 12/02/18 12/02/18 07:58 08:00 08:14 08:15 Pulse 88 B/P (MAP) 137/55 Pulse Ox 88 88 O2 Delivery Room Air Room Air Room Air O2 Flow Rate 2.0 12/02/18 12/02/18 12/02/18 08:16 09:47 11:00 Temp 98.5 98.5 Pulse 88 83 Resp 18 B/P (MAP) 137/55 129/57 (81) Pulse Ox 88 91 O2 Delivery Room Air Room Air O2 Flow Rate 2.0 Intake and Output 12/01/18 12/01/18 12/02/18 14:59 22:59 06:59 Intake Total 360 ml Output Total 275 ml 0 ml Balance 85 ml 0 ml FRANKO GEE MD Dec 02, 2018 12:20
--- NOTE | 2018-12-02 12:37 | PDOC ---
PROGRESS NOTES Chief Complaint Chief Complaint Cough, SOB, fever, gangrenous R foot History of Present Illness History of Present Illness Patient sitting up in bed talking on phone with . He complains of a rash on his right wrist that has been itching. Wound VAC in place and working. Vitals Vitals Vital Signs Date Time Temp Pulse Resp B/P (MAP) Pulse Ox O2 Delivery O2 Flow Rate FiO2 12/02/18 11:00 98.5 83 18 129/57 (81) 91 Room Air 98.5 12/02/18 09:47 2.0 Physical Exam General: Alert, Oriented X3, Cooperative, No acute distress Heart: Regular rate, Normal S1, Normal S2, No murmurs Lungs: Clear (No wheezes, rales, or rhonchi) Abdomen: Normal bowel sounds, Soft, No tenderness, No masses Extremities: Other (Left BKA, recent ray amputation R foot, wound vac in place) Skin: No rashes, No breakdown, No significant lesion, Other (Swelling in right foot) Labs LABS Laboratory Tests Test 12/01/18 17:01 12/01/18 20:34 12/02/18 07:26 12/02/18 09:05 Glucose (Fingerstick) 158 mg/dL (70-99) 210 mg/dL (70-99) 133 mg/dL (70-99) White Blood Count 11.0 x10^3/uL (4.0-11.0) Red Blood Count 2.99 x10^6/uL (4.30-5.70) Hemoglobin 8.4 g/dL (13.0-17.5) Hematocrit 26.3 % (39.0-53.0) Mean Corpuscular Volume 88 fL (79-100) Mean Corpuscular Hemoglobin 28 pg (25-35) Mean Corpuscular Hemoglobin Concent 32 g/dL (31-37) Red Cell Distribution Width 16.4 % (11.5-14.5) Platelet Count 351 x10^3/uL (140-400) Neutrophils (%) (Auto) 74 % (31-73) Lymphocytes (%) (Auto) 13 % (24-48) Monocytes (%) (Auto) 10 % (0-9) Eosinophils (%) (Auto) 2 % (0-3) Basophils (%) (Auto) 1 % (0-3) Neutrophils # (Auto) 8.1 x10^3uL (1.8-7.7) Lymphocytes # (Auto) 1.4 x10^3/uL (1.0-4.8) Monocytes # (Auto) 1.1 x10^3/uL (0.0-1.1) Eosinophils # (Auto) 0.2 x10^3/uL (0.0-0.7) Basophils # (Auto) 0.1 x10^3/uL (0.0-0.2) Sodium Level 136 mmol/L (136-145) Potassium Level 4.1 mmol/L (3.5-5.1) Chloride Level 95 mmol/L (98-107) Carbon Dioxide Level 33 mmol/L (21-32) Anion Gap 8 (6-14) Blood Urea Nitrogen 34 mg/dL (8-26) Creatinine 8.0 mg/dL (0.7-1.3) Estimated GFR (Cockcroft-Gault) 8.6 Glucose Level 137 mg/dL (70-99) Calcium Level 9.6 mg/dL (8.5-10.1) Test 12/02/18 11:06 Glucose (Fingerstick) 136 mg/dL (70-99) Review of Systems Review of Systems rash and itching on right wrist/proximal thumb, no fevers Assessment and Plan Assessmemt and Plan Problems Medical Problems: (1) Acute respiratory distress Status: Acute (2) Diabetic infection of right foot Status: Acute (3) Fever Status: Acute (4) HCAP (healthcare-associated pneumonia) Status: Acute (5) History of left below knee amputation Status: Acute (6) Sepsis Status: Acute (7) Symptomatic anemia Status: Acute (8) Toe fracture, right Status: Acute Assessment: Gangrenous right foot Soft tissue infection, right foot s/p Right 2nd and 3rd toe amputation, open; Right first metatarsal partial resection; Right lateral foot debridement on 11/28 ESRD, on HD - L arm fistula Diabetes mellitus with peripheral neuropathy Peripheral vascular disease Hypertension, history of Afib, history of CAD with history of [place] Hyperlipidemia, history of CHF, history of Asthma, history of GERD, history of Plan: Surgery: wound vac and dressing change planned for today HD per nephrology Antibiotics per ID Vancomycin and Meropenem Micro: BCx (11/25) - negative Wound Cx (11/28): S. aureus, PCN resistent; anaerobic cx pending Wound care PT/OT Monitor labs Home meds Appreciate specialty recs Comment Review of Relevant I have reviewed the following items lila (where applicable) has been applied. Labs Laboratory Tests Test 11/30/18 16:43 11/30/18 20:47 12/01/18 07:24 12/01/18 11:27 Glucose (Fingerstick) 127 mg/dL (70-99) 129 mg/dL (70-99) 115 mg/dL (70-99) 130 mg/dL (70-99) Test 12/01/18 17:01 12/01/18 20:34 12/02/18 07:26 12/02/18 09:05 Glucose (Fingerstick) 158 mg/dL (70-99) 210 mg/dL (70-99) 133 mg/dL (70-99) White Blood Count 11.0 x10^3/uL (4.0-11.0) Red Blood Count 2.99 x10^6/uL (4.30-5.70) Hemoglobin 8.4 g/dL (13.0-17.5) Hematocrit 26.3 % (39.0-53.0) Mean Corpuscular Volume 88 fL (79-100) Mean Corpuscular Hemoglobin 28 pg (25-35) Mean Corpuscular Hemoglobin Concent 32 g/dL (31-37) Red Cell Distribution Width 16.4 % (11.5-14.5) Platelet Count 351 x10^3/uL (140-400) Neutrophils (%) (Auto) 74 % (31-73) Lymphocytes (%) (Auto) 13 % (24-48) Monocytes (%) (Auto) 10 % (0-9) Eosinophils (%) (Auto) 2 % (0-3) Basophils (%) (Auto) 1 % (0-3) Neutrophils # (Auto) 8.1 x10^3uL (1.8-7.7) Lymphocytes # (Auto) 1.4 x10^3/uL (1.0-4.8) Monocytes # (Auto) 1.1 x10^3/uL (0.0-1.1) Eosinophils # (Auto) 0.2 x10^3/uL (0.0-0.7) Basophils # (Auto) 0.1 x10^3/uL (0.0-0.2) Sodium Level 136 mmol/L (136-145) Potassium Level 4.1 mmol/L (3.5-5.1) Chloride Level 95 mmol/L (98-107) Carbon Dioxide Level 33 mmol/L (21-32) Anion Gap 8 (6-14) Blood Urea Nitrogen 34 mg/dL (8-26) Creatinine 8.0 mg/dL (0.7-1.3) Estimated GFR (Cockcroft-Gault) 8.6 Glucose Level 137 mg/dL (70-99) Calcium Level 9.6 mg/dL (8.5-10.1) Test 12/02/18 11:06 Glucose (Fingerstick) 136 mg/dL (70-99) Laboratory Tests Test 12/01/18 17:01 12/01/18 20:34 12/02/18 07:26 12/02/18 09:05 Glucose (Fingerstick) 158 mg/dL (70-99) 210 mg/dL (70-99) 133 mg/dL (70-99) White Blood Count 11.0 x10^3/uL (4.0-11.0) Red Blood Count 2.99 x10^6/uL (4.30-5.70) Hemoglobin 8.4 g/dL (13.0-17.5) Hematocrit 26.3 % (39.0-53.0) Mean Corpuscular Volume 88 fL (79-100) Mean Corpuscular Hemoglobin 28 pg (25-35) Mean Corpuscular Hemoglobin Concent 32 g/dL (31-37) Red Cell Distribution Width 16.4 % (11.5-14.5) Platelet Count 351 x10^3/uL (140-400) Neutrophils (%) (Auto) 74 % (31-73) Lymphocytes (%) (Auto) 13 % (24-48) Monocytes (%) (Auto) 10 % (0-9) Eosinophils (%) (Auto) 2 % (0-3) Basophils (%) (Auto) 1 % (0-3) Neutrophils # (Auto) 8.1 x10^3uL (1.8-7.7) Lymphocytes # (Auto) 1.4 x10^3/uL (1.0-4.8) Monocytes # (Auto) 1.1 x10^3/uL (0.0-1.1) Eosinophils # (Auto) 0.2 x10^3/uL (0.0-0.7) Basophils # (Auto) 0.1 x10^3/uL (0.0-0.2) Sodium Level 136 mmol/L (136-145) Potassium Level 4.1 mmol/L (3.5-5.1) Chloride Level 95 mmol/L (98-107) Carbon Dioxide Level 33 mmol/L (21-32) Anion Gap 8 (6-14) Blood Urea Nitrogen 34 mg/dL (8-26) Creatinine 8.0 mg/dL (0.7-1.3) Estimated GFR (Cockcroft-Gault) 8.6 Glucose Level 137 mg/dL (70-99) Calcium Level 9.6 mg/dL (8.5-10.1) Test 12/02/18 11:06 Glucose (Fingerstick) 136 mg/dL (70-99) Microbiology 11/25/18 Blood Culture - Final, Complete NO GROWTH AFTER 5 DAYS 11/28/18 Anaerobic/Aerobic Culture, Resulted Pending 11/28/18 Anaerobic Culture Result 1 (BLAKE), Resulted Pending 11/28/18 Aerobic Culture - Final, Resulted 11/28/18 Aerobic Culture Result 1 (BLAKE) - Final, Resulted 11/28/18 Antimicrobic Susceptibility - Final, Resulted 11/28/18 Gram Stain - Final, Resulted 11/28/18 Gram Stain Result 1 (BLAKE) - Final, Resulted 11/28/18 Gram Stain Result 2 (BLAKE) - Final, Resulted Medications Current Medications Acetaminophen (Tylenol) 1,000 mg 1X ONCE PO Last administered on 11/25/18at 14:04; Start 11/25/18 at 12:45; Stop 11/25/18 at 12:48; Status DC Sodium Chloride 500 ml @ 500 mls/hr 1X ONCE IV Last administered on 11/25/18at 14:00; Start 11/25/18 at 12:45; Stop 11/25/18 at 13:44; Status DC Sodium Chloride 1,000 ml @ 1,000 mls/hr 1X ONCE IV Last administered on 11/25/18at 14:39; Start 11/25/18 at 14:30; Stop 11/25/18 at 15:29; Status DC Albuterol/ Ipratropium (Duoneb) 3 ml 1X ONCE NEB Last administered on 11/25/18at 14:30; Start 11/25/18 at 14:30; Stop 11/25/18 at 14:31; Status DC Vancomycin HCl 2 gm/Sodium Chloride 500 ml @ 250 mls/hr 1X ONCE IV Last administered on 11/25/18at 14:30; Start 11/25/18 at 14:30; Stop 11/25/18 at 16:29; Status DC Levofloxacin/ Dextrose 150 ml @ 100 mls/hr 1X ONCE IV Last administered on 11/25/18at 14:39; Start 11/25/18 at 14:30; Stop 11/25/18 at 15:59; Status DC Acetaminophen/ Hydrocodone Bitart (Lortab 7.5/325) 1 tab PRN Q4HRS PRN PO PAIN Last administered on 11/29/18 12:26; Start 11/25/18 at 17:15 Sodium Chloride (Normal Saline Flush) 3 ml QSHIFT PRN IV AFTER MEDS AND BLOOD DRAWS; Start 11/25/18 at 17:30 Vancomycin HCl (Vanco Per Pharmacy) 1 each PRN DAILY PRN MC SEE COMMENTS Last administered on 12/01/18at 10:27; Start 11/25/18 at 17:30 Levofloxacin/ Dextrose (Levaquin Per Pharmacy) 1 each PRN DAILY PRN MC SEE COMMENTS; Start 11/25/18 at 17:30; Stop 11/26/18 at 09:31; Status DC Levofloxacin/ Dextrose 100 ml @ 100 mls/hr Q48H IV ; Start 11/27/18 at 14:00; Stop 11/27/18 at 14:00; Status DC Heparin Sodium (Porcine) (Heparin Sodium) 5,000 unit Q8HRS SQ Last administered on 12/02/18at 05:39; Start 11/25/18 at 22:00 Acetaminophen (Tylenol) 650 mg PRN Q6HRS PRN PO FEVER Last administered on 11/28/18at 04:45; Start 11/25/18 at 17:45 Aspirin ([place] Aspirin) 325 mg DAILY PO Last administered on 12/02/18at 08:14; Start 11/26/18 at 09:00 Calcium Carbonate/ Glycine (Oscal) 500 mg BID PO Last administered on 12/02/18 08:14; Start 11/25/18 at 21:00 Carvedilol (Coreg) 3.125 mg BIDWMEALS PO Last administered on 12/02/18 08:16; Start 11/25/18 at 18:30 Clopidogrel Bisulfate (Plavix) 75 mg DAILY PO Last administered on 12/02/18 08:15; Start 11/26/18 at 09:00 Famotidine (Pepcid) 20 mg HS PO Last administered on 11/25/18 20:34; Start 11/25/18 at 21:00; Stop 11/26/18 at 08:53; Status DC Isosorbide Mononitrate (Imdur) 30 mg DAILY PO Last administered on 12/02/18 08:15; Start 11/26/18 at 09:00 Levothyroxine Sodium (Synthroid) 175 mcg DAILYAC PO Last administered on 12/02/18 08:14; Start 11/26/18 at 07:30 Oxycodone/ Acetaminophen (Percocet 10/325) 1 tab QID PO Last administered on 12/02/18 08:14; Start 11/25/18 at 21:00 Zolpidem Tartrate (Ambien) 5 mg QHS PO Last administered on 12/01/18 20:53; Start 11/25/18 at 21:00 Albuterol Sulfate (Ventolin Neb Soln) 2.5 mg PRN Q6HRS PRN NEB SHORTNESS OF BREATH Last administered on 11/28/18 15:39; Start 11/25/18 at 17:45 Atorvastatin Calcium (Lipitor) 40 mg QHS PO Last administered on 12/01/18 20:54; Start 11/25/18 at 21:00 Non-Formulary Medication (Fluticasone Propionate (Flovent 110MCG Hfa)) 2 puff BID IH ; Start 11/25/18 at 21:00; Status UNV Levetiracetam (Keppra) 1,000 mg BID PO Last administered on 12/02/18 08:15; Start 11/25/18 at 21:00 Magnesium Oxide (Magnesium Oxide) 400 mg DAILY PO Last administered on 4/22/19at 08:15; Start 11/26/18 at 09:00 Pramipexole Dihydrochloride (miraPEX) 0.25 mg DAILY PO Last administered on 12/02/18at 08:14; Start 11/26/18 at 09:00 Budesonide (Pulmicort) 0.5 mg RTBID NEB Last administered on 12/02/18at 07:56; Start 11/25/18 at 20:00 Vancomycin HCl (Vancomycin Random Level) 1 each 1X ONCE MC Last administered on 11/27/18at 06:00; Start 11/27/18 at 06:00; Stop 11/27/18 at 06:01; Status DC Midazolam HCl (Versed) 5 mg STK-MED ONCE .ROUTE ; Start 11/25/18 at 17:58; Stop 11/25/18 at 17:59; Status DC Lactobacillus Rhamnosus (Culturelle) 1 cap BID PO Last administered on 12/02/18at 08:14; Start 11/26/18 at 09:00 Midazolam HCl (Versed) 5 mg STK-MED ONCE .ROUTE ; Start 11/25/18 at 18:00; Stop 11/26/18 at 07:42; Status DC Famotidine (Pepcid) 20 mg Q48H PO Last administered on 12/01/18at 20:53; Start 11/27/18 at 21:00 Meropenem 500 mg/ Sodium Chloride 50 ml @ 100 mls/hr DAILY IV Last administered on 12/02/18at 08:16; Start 11/26/18 at 10:00 Sodium Chloride 1,000 ml @ 1,000 mls/hr Q1H PRN IV hypotension; Start 11/26/18 at 14:13; Stop 11/26/18 at 20:12; Status DC Albumin Human 200 ml @ 200 mls/hr 1X PRN PRN IV Hypotension; Start 11/26/18 at 14:15; Stop 11/26/18 at 20:14; Status DC Acetaminophen (Tylenol) 500 mg 1X PRN PRN PO MILD PAIN / TEMP; Start 11/26/18 at 14:15; Stop 11/27/18 at 14:14; Status DC Diphenhydramine HCl (Benadryl) 25 mg 1X PRN PRN IV ITCHING; Start 11/26/18 at 14:15; Stop 11/27/18 at 14:14; Status DC Diphenhydramine HCl (Benadryl) 25 mg 1X PRN PRN IV ITCHING; Start 11/26/18 at 14:15; Stop 11/27/18 at 14:14; Status DC Sodium Chloride 1,000 ml @ 400 mls/hr Q2H30M PRN IV PATENCY; Start 11/26/18 at 14:13; Stop 11/27/18 at 02:12; Status DC Info (PHARMACY MONITORING -- do not chart) 1 each PRN DAILY PRN MC SEE COMMENTS; Start 11/26/18 at 14:15; Stop 11/30/18 at 09:14; Status DC Multivitamins (Thera M Plus) 1 tab DAILY PO Last administered on 12/02/18at 08:15; Start 11/27/18 at 09:00 Darbepoetin Jace (Aranesp) 100 mcg WEEKLYHS SQ Last administered on 11/26/18at 20:53; Start 11/26/18 at 21:00 Lidocaine HCl 48 ml/Sodium Bicarbonate 12 meq/Miscellaneous 60 ml @ 60 mls/hr 1X ONCE ID ; Start 11/28/18 at 06:00; Stop 11/28/18 at 06:59; Status DC Ondansetron HCl (Zofran) 4 mg PRN Q6HRS PRN IV NAUSEA/VOMITING; Start 11/28/18 at 07:00; Stop 11/28/18 at 20:00; Status DC Fentanyl Citrate (Fentanyl 2ml Vial) 25 mcg PRN Q5MIN PRN IV MILD PAIN; Start 11/28/18 at 07:00; Stop 11/28/18 at 20:00; Status DC Fentanyl Citrate (Fentanyl 2ml Vial) 50 mcg PRN Q5MIN PRN IV MODERATE TO SEVERE PAIN Last administered on 11/28/18at 10:14; Start 11/28/18 at 07:00; Stop 11/28/18 at 20:00; Status DC Morphine Sulfate (Morphine Sulfate) 1 mg PRN Q10MIN PRN IV SEVERE PAIN; Start 11/28/18 at 07:00; Stop 11/28/18 at 20:00; Status DC Ringer's Solution 1,000 ml @ 30 mls/hr Q24H IV ; Start 11/28/18 at 07:00; Stop 11/28/18 at 18:59; Status DC Lidocaine HCl (Xylocaine-Mpf 1% 2ml Vial) 2 ml PRN 1X PRN ID PRIOR TO IV START; Start 11/28/18 at 07:00; Stop 11/28/18 at 20:00; Status DC Hydromorphone HCl (Dilaudid) 0.5 mg PRN Q10MIN PRN IV SEV PAIN, Second choice; Start 11/28/18 at 07:00; Stop 11/28/18 at 20:00; Status DC Prochlorperazine Edisylate (Compazine) 5 mg PACU PRN PRN IV NAUSEA, MRX1; Start 11/28/18 at 07:00; Stop 11/28/18 at 20:00; Status DC Vancomycin HCl 500 mg/Sodium Chloride 100 ml @ 100 mls/hr 1X ONCE IV Last administered on 11/27/18at 13:29; Start 11/27/18 at 13:00; Stop 11/27/18 at 13:59; Status DC Vancomycin HCl 500 mg/Sodium Chloride 100 ml @ 100 mls/hr QTUTHSA IV Last administered on 11/30/18at 17:47; Start 11/28/18 at 16:00 Sodium Chloride 1,000 ml @ 1,000 mls/hr Q1H PRN IV hypotension; Start 11/28/18 at 07:04; Stop 11/28/18 at 13:03; Status DC Albumin Human 200 ml @ 200 mls/hr 1X PRN PRN IV Hypotension; Start 11/28/18 at 07:15; Stop 11/28/18 at 13:14; Status DC Acetaminophen (Tylenol) 500 mg 1X PRN PRN PO MILD PAIN / TEMP; Start 11/28/18 at 07:15; Stop 11/29/18 at 07:14; Status DC Diphenhydramine HCl (Benadryl) 25 mg 1X PRN PRN IV ITCHING; Start 11/28/18 at 07:15; Stop 11/29/18 at 07:14; Status DC Diphenhydramine HCl (Benadryl) 25 mg 1X PRN PRN IV ITCHING; Start 11/28/18 at 07:15; Stop 11/29/18 at 07:14; Status DC Sodium Chloride 1,000 ml @ 400 mls/hr Q2H30M PRN IV PATENCY; Start 11/28/18 at 07:04; Stop 11/28/18 at 19:03; Status DC Info (PHARMACY MONITORING -- do not chart) 1 each PRN DAILY PRN MC SEE COMMENTS; Start 11/28/18 at 07:15; Status Cancel Propofol 20 ml @ As Directed STK-MED ONCE IV ; Start 11/28/18 at 08:23; Stop 11/28/18 at 08:24; Status DC Lidocaine HCl (Lidocaine Pf 2% Vial) 5 ml STK-MED ONCE .ROUTE ; Start 11/28/18 at 08:23; Stop 11/28/18 at 08:24; Status DC Phenylephrine HCl (PHENYLEPHRINE in 0.9% NACL PF) 1 mg STK-MED ONCE IV ; Start 11/28/18 at 08:23; Stop 11/28/18 at 08:24; Status DC Dexamethasone Sodium Phosphate (Decadron) 20 mg STK-MED ONCE .ROUTE ; Start 11/28/18 at 08:23; Stop 11/28/18 at 08:24; Status DC Famotidine (Pepcid Vial) 20 mg STK-MED ONCE .ROUTE ; Start 11/28/18 at 08:23; Stop 11/28/18 at 08:24; Status DC Ondansetron HCl (Zofran) 4 mg STK-MED ONCE .ROUTE ; Start 11/28/18 at 08:23; Stop 11/28/18 at 08:24; Status DC Silver Sulfadiazine (Silvadene) 25 ayaz STK-MED ONCE TP ; Start 11/28/18 at 07:36; Stop 11/28/18 at 08:37; Status DC Morphine Sulfate (Morphine Sulfate) 2 mg PRN Q2HR PRN IV MODERATE TO SEVERE PAIN; Start 11/28/18 at 09:15 Sevoflurane (Ultane) 30 ml STK-MED ONCE IH ; Start 11/28/18 at 09:41; Stop 11/28/18 at 09:42; Status DC Fentanyl Citrate (Fentanyl 2ml Vial) 100 mcg STK-MED ONCE .ROUTE ; Start 11/28/18 at 10:12; Stop 11/28/18 at 10:13; Status DC Sodium Chloride 1,000 ml @ 1,000 mls/hr Q1H PRN IV hypotension; Start 11/30/18 at 11:00; Stop 11/30/18 at 16:59; Status DC Sodium Chloride 1,000 ml @ 400 mls/hr Q2H30M PRN IV PATENCY; Start 11/30/18 at 11:00; Stop 11/30/18 at 22:59; Status DC Info (PHARMACY MONITORING -- do not chart) 1 each PRN DAILY PRN MC SEE COMMENTS; Start 11/30/18 at 16:15; Status UNV Info (PHARMACY MONITORING -- do not chart) 1 each PRN DAILY PRN MC SEE COMMENTS; Start 11/30/18 at 16:15 Active Scripts Active Isosorbide Mononitrate Er (Isosorbide Mononitrate) 30 Mg Tab.er.24h 30 Mg PO DAILY 30 Days Reported Aspirin 325 Mg Tablet 1 Tab PO DAILY Coreg (Carvedilol) 3.125 Mg Tablet 3.125 Mg PO BIDWMEALS Magnesium (Magnesium Oxide) 400 Mg Capsule 400 Mg PO DAILY Levothyroxine Sodium 175 Mcg Tablet 175 Mcg PO DAILYAC Plavix (Clopidogrel Bisulfate) 75 Mg Tablet 75 Mg PO DAILY Calcium Carbonate 500 Mg Tablet 500 Mg PO BID Lipitor (Atorvastatin Calcium) 80 Mg Tablet 40 Mg PO HS Keppra (Levetiracetam) 1,000 Mg Tablet 1 Tab PO BID Endocet 10-325 Mg Tablet (Oxycodone Hcl/Acetaminophen) 1 Each Tablet 1 Tab PO QID Flovent 110MCG Hfa (Fluticasone Propionate) 12 Gm Aer.w.adap 2 Puff IH BID Zolpidem Tartrate 5 Mg Tablet 1 Tab PO QHS Mirapex (Pramipexole Di-Hcl) 0.25 Mg Tablet 1 Tab PO DAILY Tylenol (Acetaminophen) 325 Mg Tablet 650 Mg PO PRN Q6HRS PRN Famotidine 20 Mg Tablet 20 Mg PO HS Ventolin Hfa Inhaler (Albuterol Sulfate) 18 Gm Hfa.aer.ad 1 Puff INH Q6HRS PRN Vitals/I & O Vital Sign - Last 24 Hours 12/01/18 12/01/18 12/01/18 12/01/18 15:00 15:02 17:55 17:56 Temp 98.7 98.7 Pulse 84 86 Resp 16 20 20 B/P (MAP) 120/55 (76) 139/74 Pulse Ox 96 94 94 O2 Delivery Room Air Room Air Room Air O2 Flow Rate 2.0 12/01/18 12/01/18 12/01/18 12/01/18 19:00 20:00 20:24 20:53 Temp 98.5 98.5 Pulse 83 Resp 18 16 B/P (MAP) 117/57 (77) Pulse Ox 94 O2 Delivery Room Air Room Air Room Air Room Air 12/01/18 12/01/18 12/02/18 12/02/18 21:59 22:43 02:57 07:00 Temp 98.0 98.6 98.4 98.0 98.6 98.4 Pulse 74 85 88 Resp 16 18 18 18 B/P (MAP) 114/50 (71) 138/60 (86) 137/55 (82) Pulse Ox 97 96 93 O2 Delivery Room Air Room Air Room Air 12/02/18 12/02/18 12/02/18 12/02/18 07:58 08:00 08:14 08:15 Pulse 88 B/P (MAP) 137/55 Pulse Ox 88 88 O2 Delivery Room Air Room Air Room Air O2 Flow Rate 2.0 12/02/18 12/02/18 12/02/18 08:16 09:47 11:00 Temp 98.5 98.5 Pulse 88 83 Resp 18 B/P (MAP) 137/55 129/57 (81) Pulse Ox 88 91 O2 Delivery Room Air Room Air O2 Flow Rate 2.0 Intake and Output 12/01/18 12/01/18 12/02/18 14:59 22:59 06:59 Intake Total 360 ml Output Total 275 ml 0 ml Balance 85 ml 0 ml VIC TIWARI III DO Dec 02, 2018 12:37
[2018-12-02] MEDS: VANCOMYCIN PER PHARMACY MC PRN (14:19)
[2018-12-02 15:00] VITALS: BP 128/58
--- NOTE | 2018-12-02 15:06 | PATHOLOGY ---
[facility] Accession Number: [id number] . 01 Material submitted: . foot - RIGHT FOOT 2ND AND 3RD TOES, 1ST METATARSAL HEAD . Modifiers: right, second, third . 01 Clinical history: . None provided . 02 Diagnosis: "Right foot second, third toes, and first metatarsal head", amputation: - Skin of second toe with ulceration with associated acute abscess and necrosis. - Bone of second toe with no evidence of acute osteomyelitis. - Skin of third toe with ulceration with associated acute abscess and necrosis. - Bone of third toe with focal fibrosis of marrow space. - Two separate portions of bone with no significant histopathologic diagnosis. . (SKM:librado; 12/02/2018) QL/12/02/2018 . 02 Electronically signed: . Derrick Lawrence MD, Pathologist NPI- [id number] . 01 Gross description: . The specimen is received in formalin, labeled "Aquiles Goel, right foot second, third toes, first metatarsal head". Received is an amputated digit stump measuring 5.1 x 4.5 x 3.7 cm, and two attached digits measuring 9.6 x 5.6 x 5.5 cm in greatest dimensions. The bone margin of the digit stump is smooth and concave in appearance, consistent with disarticulation. The bone and soft tissue margins of the segment are inked black. On one aspect of this stump, the soft tissue is slightly necrotic in appearance and is consistent with a lesion, measuring 4.3 x 2.9 cm, which grossly abuts the inked margin. The bone margin of toe to is smooth and concave in appearance, consistent with disarticulation, and the bone margin of toe three is jagged in appearance. The nails are light richards to dark brown and severely thickened in appearance. The epidermal surface is dusky rivera-brown and shaggy to sloughing in appearance. On the lateral aspect of the specimen, there is a lesion present which is poorly circumscribed, irregular in contour and pink-richards to necrotic measuring 4.7 x 3.6 and meters, which grossly abuts the soft tissue margin. The bone and soft tissue margins of toe 2 are inked blue, and the bone and soft tissue margins of toe 3 are inked yellow. . Also received within the specimen container are two additional segments of bone measuring 2.4 x 2.1 x 1.9 and 3.5 x 2.4 x 1.2 cm in greatest dimensions. One bone margin of the smaller segment is jagged in appearance and the opposite margin is smooth and convex in appearance, consistent with disarticulation. The jagged margin is inked black. One bone margin of the larger segment is slightly jagged in appearance and the opposite margin is smooth and slightly concave in appearance, consistent with disarticulation. The jagged margin is inked blue. The specimen is submitted representatively as follows: . A1 accounting representative sections of lesion on digit stump A2-A3 full-thickness cross section of bone from digit stump, additionally bisected, following decalcification A4-A6 full-thickness longitudinal cross-section of toe 2, submitted from proximal to distal aspects, following decalcification A7 accounting representative sections of lesion on the lateral aspect of toe 3 A8-A11 full-thickness longitudinal cross-section of toe 3, submitted from proximal to distal aspects, following decalcification A12 full-thickness cross section of smaller segment of separately submitted bone, following decalcification A13 full-thickness cross section of the larger segment of separately submitted bone, following decalcification. (CAA; 11/29/2018) QAC/QAC . 02 Pathologist provided ICD-10: L97.521 . 02 CPT . 259044, 042681 Specimen Comment: A courtesy copy of this report has been sent to Specimen Comment: [phone], , , . Specimen Comment: Report sent to ,DR SUMNER,DR LOPEZ / DR RUBIO Performed at: [address] [place] [address] [address], [place], [place] [id number] MD Abimael Donovan MD Phone: [phone] Performed at: [address] [id number] MD Meng Gann MD Phone: [phone]
--- NOTE | 2018-12-02 15:33 | NUR ---
PRE MIDLINE INSERTION NOTE Allergies and reactions MULTIPLE, ALL REVIEWED INR 1.4 BUN 34 Cr 8.0 Platelets 351 Blood culture done blood culture results Order Verified YES Consent signed YES Previous PICC placement PER PT HE HAS HAD PREVIOUS PICCS AND MIDLINES Past Medical/Surgical history and current diagnosis reviewed YES Patient Medical /Surgical History Related to PICC line placement Arrhythmias Deep Vein Thrombosis (DVT) Diabetes History of acute/chronic renal failure Infectious Disease consult Past central line or venous access device placement Probability of fistula placement Renal consult Septicemia/Bacteremia Special considerations for PICC line placement Anticoagulation therapy Infections PICC placement indication Caustic medication 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
--- NOTE | 2018-12-02 15:41 | NUR ---
MIDLINE INSERTION NOTE: Procedure: Following complete explanation of the MIDLINE procedure including the indications, risks, and potential complications, informed consent was obtained. The possibility for infection was discussed along with signs, symptoms, and prevention. All the [PATIENT'S] questions were answered. Written and verbal patient education was provided. Hand hygiene performed. Standardized central line checklist was utilized. The patient was placed in the supine position, the arm was prepped with chlorhexidine and patient draped with maximum sterile barrier. [0.5] mL 1% lidocaine was infiltrated into the skin to provide local anesthesia. A thorough assessment of [RIGHT] upper extremity completed. Using real-time ultrasound guidance and standardized micro puncture set, the [RIGHT BASILIC] vein was punctured and a peel away sheath was placed using the modified Seldinger technique. The catheter was secured using a securement device and an antimicrobial patch was applied directly on the insertion site followed by a transparent dressing. All ports withdraw blood and flush without resistance. Patient tolerated the procedure without apparent complication(s). [4 CITIZEN OF [place]] [employer] MIDLINE placement successful and uncomplicated. Complications: []NONE
[2018-12-02 19:00] VITALS: BP 146/89
[2018-12-02] MEDS: ATORVASTATIN CALCIUM 40 MG TABLET. PO SCH (21:05)
[2018-12-02] MEDS: ZOLPIDEM 5 MG TABLET. PO SCH (21:05)
[2018-12-02 23:00] VITALS: BP 153/70
[2018-12-03 03:00] VITALS: BP 171/92
[2018-12-03 05:28] LABS: BASO % 0 % (0-3); EOS # 0.2 x10^3/uL (0.0-0.7); EOS % 2 % (0-3); HEMATOCRIT 23.5 % (39.0-53.0); HEMOGLOBIN 7.8 g/dL (13.0-17.5); LYMPH # 1.3 x10^3/uL (1.0-4.8); LYMPH % 13 % (24-48); MEAN CORPUSCULAR HEMOGLOBIN 29 pg (25-35); MEAN CORPUSCULAR HGB CONC 33 g/dL (31-37); MEAN CORPUSCULAR VOLUME 88 fL (79-100); MONO # 0.9 x10^3/uL (0.0-1.1); MONO % 9 % (0-9); NEUT # 7.5 x10^3uL (1.8-7.7); NEUT % 75 % (31-73); PLATELET COUNT 352 x10^3/uL (140-400); RED BLOOD COUNT 2.69 x10^6/uL (4.30-5.70); RED CELL DISTRIBUTION WIDTH 16.7 % (11.5-14.5)
[2018-12-03] MEDS: HEPARIN for SUB-Q USE 5,000 UNIT/ML VIAL. SQ SCH ×2 (05:32→14:10)
[2018-12-03 05:43] LABS: CALCIUM 9.3 mg/dL (8.5-10.1); CREATININE 9.2 mg/dL (0.7-1.3); GFR 7.3
[2018-12-03 07:00] VITALS: BP 125/65
[2018-12-03] MEDS: BUDESONIDE 0.5 MG/2 ML NEBU. NEB SCH (08:00)
[2018-12-03] MEDS ORDERED: IV NORMAL SALINE 1000ML BAG 1,000 ML IV PRN ×2 (08:35)
[2018-12-03] MEDS ORDERED: DIALYSIS PATIENT. MC PRN ×2 (08:45)
--- NOTE | 2018-12-03 09:56 | PDOC ---
Infectious Disease Note Subjective Subjective Comfortable, denies pain/F/C/S Denies N/V/D Ready to go home ROS ROS o/w neg Vital Sign Vital Signs Vital Signs Date Time Temp Pulse Resp B/P (MAP) Pulse Ox O2 Delivery O2 Flow Rate FiO2 12/03/18 08:00 Room Air 12/03/18 07:00 98.6 77 16 125/65 (85) 98.6 12/03/18 03:00 93 12/02/18 20:05 2.0 Physical Exam PHYSICAL EXAM GENERAL: Sitting upright in bed, alert, NAD HEENT: Oral cavity clear NECK: Supple LUNGS: Clear bilaterally. HEART: S1, S2. ABDOMEN: Soft, obese. Bowel sounds present. EXTREMITIES: Left BKA stump healed, RLE 1+ edema, wound vac in place. DERMATOLOGIC: Warm without generalized rash. NEUROLOGIC: Alert and oriented x 3. RUE midline looks okay. Shunt, left upper extremity looks clean. Labs Lab Laboratory Tests Test 12/02/18 11:06 12/02/18 16:15 12/02/18 20:40 12/03/18 05:15 Glucose (Fingerstick) 136 mg/dL (70-99) 131 mg/dL (70-99) 133 mg/dL (70-99) White Blood Count 10.0 x10^3/uL (4.0-11.0) Red Blood Count 2.69 x10^6/uL (4.30-5.70) Hemoglobin 7.8 g/dL (13.0-17.5) Hematocrit 23.5 % (39.0-53.0) Mean Corpuscular Volume 88 fL (79-100) Mean Corpuscular Hemoglobin 29 pg (25-35) Mean Corpuscular Hemoglobin Concent 33 g/dL (31-37) Red Cell Distribution Width 16.7 % (11.5-14.5) Platelet Count 352 x10^3/uL (140-400) Neutrophils (%) (Auto) 75 % (31-73) Lymphocytes (%) (Auto) 13 % (24-48) Monocytes (%) (Auto) 9 % (0-9) Eosinophils (%) (Auto) 2 % (0-3) Basophils (%) (Auto) 0 % (0-3) Neutrophils # (Auto) 7.5 x10^3uL (1.8-7.7) Lymphocytes # (Auto) 1.3 x10^3/uL (1.0-4.8) Monocytes # (Auto) 0.9 x10^3/uL (0.0-1.1) Eosinophils # (Auto) 0.2 x10^3/uL (0.0-0.7) Basophils # (Auto) 0.0 x10^3/uL (0.0-0.2) Sodium Level 137 mmol/L (136-145) Potassium Level 4.0 mmol/L (3.5-5.1) Chloride Level 97 mmol/L (98-107) Carbon Dioxide Level 34 mmol/L (21-32) Anion Gap 6 (6-14) Blood Urea Nitrogen 40 mg/dL (8-26) Creatinine 9.2 mg/dL (0.7-1.3) Estimated GFR (Cockcroft-Gault) 7.3 Glucose Level 136 mg/dL (70-99) Calcium Level 9.3 mg/dL (8.5-10.1) Test 12/03/18 07:59 Glucose (Fingerstick) 125 mg/dL (70-99) Micro ANAEROBIC RES 1 Final Finegoldia magna 2+ Beta lactamase negative. AEROBIC CULT Final Final report AEROBIC RES 1 Final Staphylococcus aureus 3+ Based on susceptibility to oxacillin this isolate would be susceptible to: *Penicillinase-stable penicillins, such as: Cloxacillin, Dicloxacillin, Nafcillin *Beta-lactam combination agents, such as: Amoxicillin-clavulanic acid, Ampicillin-sulbactam, Piperacillin-tazobactam *Oral cephems, such as: Cefaclor, Cefdinir, Cefpodoxime, Cefprozil, Cefuroxime, Cephalexin, Loracarbef *Parenteral cephems, such as: Cefazolin, Cefepime, Cefotaxime, Cefotetan, Ceftaroline, Ceftizoxime, Ceftriaxone, Cefuroxime *Carbapenems, such as: Doripenem, Ertapenem, Imipenem, Meropenem ANTIMICROBIAL SUSCEPTIBILITY Final Comment CONTINUED ON NEXT PAGE RUN DATE: 12/02/18 PAGE 2 RUN TIME: [address] [facility] [address] [place], [place] [address]Jeannine Gann M.D., [employer] Machine Operator SPEC: [id number] PATIENT: BHAVYA WILKES [id number] (Continued) ----- Procedure Result ANTIMICROBIAL SUSCEPTIBILITY Final (continued) S = Susceptible; I = Intermediate; R = Resistant P = Positive; N = Negative MICS are expressed in micrograms per mL Antibiotic RSLT#1 RSLT#2 RSLT#3 RSLT#4 Ciprofloxacin S<=0.5 Clindamycin S<=0.25 Erythromycin S<=0.25 Gentamicin S<=0.5 Levofloxacin S<=0.12 Linezolid S =2 Moxifloxacin S<=0.25 Oxacillin S =0.5 Penicillin R>=0.5 Quinupristin/Dalfopristin S<=0.25 Rifampin S<=0.5 Tetracycline S<=1 Trimethoprim/Sulfa S<=10 Vancomycin S =1 Objective Assessment Right foot infection with 2nd and 3rd toe infection with necrosis s/p amputation on 11/28. MSSA/Finegoldia RLE Cellulitis h/o recent fifth and fourth toe amputation sites with osteomyelitis with deep tissue infection with cultures positive for Peptostreptococcus and Veillonella, treated with IV meropenem, which he completed on 11/10/[address] in place. Fever, improved Leukocytosis, improved End-stage renal disease, on hemodialysis. Diabetes mellitus with peripheral neuropathy. Peripheral vascular disease. PENICILLIN allergy, has tolerated meropenem well. Right third toe proximal phalanx fracture, new Plan Plan of Care Ok to d/c home Home with Merrem 500 mg IV Q day for 5 weeks given previous cults -rx in chart Q Sunday CBC/CMP/Sed rate fax to [phone] Probiotic wound vac/care per Vascular F/u ID office 2 weeks [phone] JUAN ANTONIO CHASE MD Dec 03, 2018 09:56
[2018-12-03 10:42] LABS: % EOS 3 % (0-5); % LYMPHS 18 % (24-48); % MONOS 10 % (0-10); % SEGS 69 % (35-66); ANISOCYTOSIS SLIGHT; HYPOCHROMIA SLIGHT; PLT ESTIMATE ADEQUATE (ADEQUATE)
[2018-12-03 11:00] VITALS: BP 171/82
[2018-12-03] MEDS: CALCIUM CARBONATE 500 MG TABLET PO SCH (11:46)
[2018-12-03] MEDS: ASPIRIN 325 MG TABLET PO SCH (11:46)
[2018-12-03] MEDS: oxyCODONE/APAP 10/325 1 TAB TABLET PO SCH (11:46)
[2018-12-03] MEDS: MAGNESIUM OXIDE 400 MG TABLET PO SCH (11:47)
[2018-12-03] MEDS: LEVOTHYROXINE 175 MCG TABLET PO SCH (11:47)
[2018-12-03] MEDS: CARVEDILOL 3.125 MG TABLET. PO SCH (11:47)
[2018-12-03] MEDS: MULTIVITAMIN with MINERAL TABLET. PO SCH (11:47)
[2018-12-03] MEDS: CLOPIDOGREL BISULFATE 75 MG TABLET PO SCH (11:47)
[2018-12-03] MEDS: LACTOBACILLUS RHAMNOSUS GG 1 CAPSULE. PO SCH (11:47)
[2018-12-03] MEDS: MEROPENEM 500 MG in IV NORMAL SALINE 50ML 50 ML IV SCH (11:48)
[2018-12-03] MEDS: levETIRAcetam 500 MG TABLET PO SCH (11:48)
[2018-12-03] MEDS: ISOSORBIDE MONONITRATE ER 30 MG TAB.ER.24H PO SCH (12:03)
[2018-12-03] MEDS: PRAMIPEXOLE 0.25 MG TABLET. PO SCH (12:03)
--- NOTE | 2018-12-03 12:22 | PDOC ---
Renal-Progress Notes Subjective Notes Notes NO NEW COMPLAINTS History of Present Illness Hx of present illness STABLE Vitals Vitals Vital Signs Date Time Temp Pulse Resp B/P (MAP) Pulse Ox O2 Delivery O2 Flow Rate FiO2 12/03/18 12:03 77 125/65 12/03/18 11:46 Room Air 12/03/18 11:00 98.6 18 93 98.6 12/02/18 20:05 2.0 Weight Weight [ ] I.O. Intake and Output Intake and Output 12/03/18 06:59 Intake Total 640 ml Output Total 100 ml Balance 540 ml Intake Oral 640 ml Output Urine Total 100 ml # Voids 1 Labs Labs Laboratory Tests Test 12/02/18 16:15 12/02/18 20:40 12/03/18 05:15 12/03/18 07:59 Glucose (Fingerstick) 131 mg/dL (70-99) 133 mg/dL (70-99) 125 mg/dL (70-99) White Blood Count 10.0 x10^3/uL (4.0-11.0) Red Blood Count 2.69 x10^6/uL (4.30-5.70) Hemoglobin 7.8 g/dL (13.0-17.5) Hematocrit 23.5 % (39.0-53.0) Mean Corpuscular Volume 88 fL (79-100) Mean Corpuscular Hemoglobin 29 pg (25-35) Mean Corpuscular Hemoglobin Concent 33 g/dL (31-37) Red Cell Distribution Width 16.7 % (11.5-14.5) Platelet Count 352 x10^3/uL (140-400) Neutrophils (%) (Auto) 75 % (31-73) Lymphocytes (%) (Auto) 13 % (24-48) Monocytes (%) (Auto) 9 % (0-9) Eosinophils (%) (Auto) 2 % (0-3) Basophils (%) (Auto) 0 % (0-3) Neutrophils # (Auto) 7.5 x10^3uL (1.8-7.7) Lymphocytes # (Auto) 1.3 x10^3/uL (1.0-4.8) Monocytes # (Auto) 0.9 x10^3/uL (0.0-1.1) Eosinophils # (Auto) 0.2 x10^3/uL (0.0-0.7) Basophils # (Auto) 0.0 x10^3/uL (0.0-0.2) Segmented Neutrophils % 69 % (35-66) Lymphocytes % 18 % (24-48) Monocytes % 10 % (0-10) Eosinophils % 3 % (0-5) Platelet Estimate Adequate (ADEQUATE) Hypochromasia Slight Anisocytosis Slight Sodium Level 137 mmol/L (136-145) Potassium Level 4.0 mmol/L (3.5-5.1) Chloride Level 97 mmol/L (98-107) Carbon Dioxide Level 34 mmol/L (21-32) Anion Gap 6 (6-14) Blood Urea Nitrogen 40 mg/dL (8-26) Creatinine 9.2 mg/dL (0.7-1.3) Estimated GFR (Cockcroft-Gault) 7.3 Glucose Level 136 mg/dL (70-99) Calcium Level 9.3 mg/dL (8.5-10.1) Test 12/03/18 11:42 Glucose (Fingerstick) 121 mg/dL (70-99) Micro Micro Microbiology 11/25/18 Blood Culture - Final, Complete NO GROWTH AFTER 5 DAYS 11/28/18 Anaerobic/Aerobic Culture - Final, Complete 11/28/18 Anaerobic Culture Result 1 (BLAKE) - Final, Complete 11/28/18 Aerobic Culture - Final, Complete 11/28/18 Aerobic Culture Result 1 (BLAKE) - Final, Complete 11/28/18 Antimicrobic Susceptibility - Final, Complete 11/28/18 Gram Stain - Final, Complete 11/28/18 Gram Stain Result 1 (BLAKE) - Final, Complete 11/28/18 Gram Stain Result 2 (BLAKE) - Final, Complete Review of Systems Constitutional: yes: alert, oriented Ears/Nose/Throat: Yes: no symptom reported Eyes: Yes: no symptom reported Pulmonary: Yes no symptom reported Cardiovascular: Yes no symptom reported Gastrointestional: Yes: no symptom reported Genitourinary: Yes: no symptom reported Musculoskeletal: Yes: no symptom reported Skin: Yes no symptom reported Psychiatric/Neurological: Yes: no symptom reported Endocrine: Yes: no symptom reported Physical Exam General Appearance: no apparent distress Skin: warm Respiratory: decreased breath sounds Heart: S1S2 Abdomen: soft, bowel sounds present Genitourinary: bladder flat Extremities: pulses present Neurology: alert Musculoskeletal: Osteoarthritis Assessment Assessment IMP ESRD ANEMIA DM II NEUROPATHY HTN S/P AMP OF RIGHT TOES PAD HX PLAN MID LINE IN PLACE ARANESP ANTIBIOTICS HD TODAY UF TO DW PROB D/C TODAY GRACE VILLEDA MD Dec 03, 2018 12:22
--- NOTE | 2018-12-03 13:44 | NUR ---
RONA following pt. SW notified pt will need home IV abx for 5 weeks. Orders of IV abx faxed to [facility] and [facility]. Awaiting to hear back on benefits. RONA requested Sahil to send a nurse to do a bedside teach today as well. CONSUELO RN. Will continue to follow.
[2018-12-03] MEDS ORDERED: MERO500V IV (14:04)
--- NOTE | 2018-12-03 14:06 | SNU/HH DC ---
DISCHARGE WITH HOME HEALTH DISCHARGE INFORMATION: Discharge Date: Dec 03, 2018 Final Diagnosis: Problems Medical Problems: (1) Acute respiratory distress Status: Acute (2) Diabetic infection of right foot Status: Acute (3) Fever Status: Acute (4) HCAP (healthcare-associated pneumonia) Status: Acute (5) History of left below knee amputation Status: Acute (6) Sepsis Status: Acute (7) Symptomatic anemia Status: Acute (8) Toe fracture, right Status: Acute Condition on Discharge: Stable CODE STATUS: Code Status: Full HOME HEALTH: Face to Face: I certify this patient is under my care and that I, or a nurse practitioner or physician's quality assistant working with me, had a face to face encounter that meets the physician face to face encounter requirements with this patient on 12/03 Medical Complications: DM, Other (ESRD, ) Long-Term For: Diabetic Care, IV Infusion Therapy, Pain Management, Wound Care, Wound Vac RN For Eval/Treatment: Yes Physical Therapy For: Evalulation/Treatment Occupational Therapy For: Evaluation/Treatment Pt Meets Homebound Status: Poor coordination w/ amb., Limited distance walking POST DISCHARGE ORDERS: Activity Instructions for Disc: Activity as tolerated Weight Bearing Status after Di: As tolerated Bathing Instructions: Shower-keep dressing dry DIET AFTER DISCHARGE: Renal (diabetic) Wound/Incision Care: Change dressing CHECKS AFTER DISCHARGE: Checks after discharge: Check blood sugar, ac/hs, Weigh Yourself Daily FOLLOW-UP: PCP to follow Home Health: primary care Follow up with: ID < 5 weeks DC TO SNF LABS: Merrem 5 weeks, f/u Dr. Mcclure, will need labs TREATMENT/EQUIPMENT ORDERS: Adaptive Equipment Issued: Walker, Wheelchair CERTIFICATION STATEMENT: Certification Statement: Certification Statement: Based on the above finding, I certify that this patient is confined to the home and needs intermittent mcfp care, physical therapy and/or speech therapy, or continues to need occupational therapy.~ This patient is under my care, and I have initiated the establishment of the plan of care.~ This patient will be followed by myself or a community physician who will periodically review the plan of care. Home Meds Active Scripts Meropenem (MERREM) 500 Mg Vial, 500 MG IV DAILY for foot infection, #35 EACH Prov:SUGAR BEAL MD 12/03/18 Isosorbide Mononitrate (ISOSORBIDE MONONITRATE ER) 30 Mg Tab.er.24h, 30 MG PO DAILY for angina for 30 Days, #30 TAB.SR Prov:TONI LEE MD 11/20/18 Reported Medications Aspirin (ASPIRIN) 325 Mg Tablet, 1 TAB PO DAILY for heart health , #30 TAB 5 Refills 07/03/18 Carvedilol (COREG ) 3.125 Mg Tablet, 3.125 MG PO BIDWMEALS for heart failure, TAB 07/03/18 Magnesium Oxide (MAGNESIUM) 400 Mg Capsule, 400 MG PO DAILY for supplement, CAP 06/28/18 Levothyroxine Sodium (LEVOTHYROXINE SODIUM) 175 Mcg Tablet, 175 MCG PO DAILYAC for THYROID SUPPLEMENT, #30 TAB 0 Refills 06/28/18 Clopidogrel Bisulfate (PLAVIX) 75 Mg Tablet, 75 MG PO DAILY for TO PREVENT BLOOD CLOTS, #30 TAB 0 Refills 06/28/18 Calcium Carbonate (CALCIUM CARBONATE) 500 Mg Tablet, 500 MG PO BID for s upplement, TAB 06/28/18 Atorvastatin Calcium (LIPITOR) 80 Mg Tablet, 40 MG PO HS for FOR CHOLESTEROL, #30 TAB 0 Refills 06/28/18 Levetiracetam (KEPPRA) 1,000 Mg Tablet, 1 TAB PO BID, #60 TAB 5 Refills 04/14/18 Oxycodone Hcl/Acetaminophen (ENDOCET 10-325 MG TABLET) 1 Each Tablet, 1 TAB PO QID, #120 TAB 01/28/18 Fluticasone Propionate (FLOVENT 110MCG HFA) 12 Gm Aer.w.adap, 2 PUFF IH BID, #1 INHALER 2 Refills 01/28/18 Zolpidem Tartrate (ZOLPIDEM TARTRATE) 5 Mg Tablet, 1 TAB PO QHS, #30 TAB 2 Refills 01/28/18 Pramipexole Di-Hcl (MIRAPEX) 0.25 Mg Tablet, 1 TAB PO DAILY, #30 TAB 5 Refills 01/28/18 Acetaminophen (TYLENOL) 325 Mg Tablet, 650 MG PO PRN Q6HRS PRN for FEVER, TAB 07/31/17 Famotidine (FAMOTIDINE) 20 Mg Tablet, 20 MG PO HS, TAB 07/31/17 Albuterol Sulfate (VENTOLIN HFA INHALER) 18 Gm Hfa.aer.ad, 1 PUFF INH Q6HRS PRN for SHORTNESS OF BREATH, INHALER 0 Refills 03/27/17 SUGAR BEAL MD Dec 03, 2018 14:06
--- NOTE | 2018-12-03 14:11 | PDOC3 ---
Discharge Summary Visit Information Date of Admission: Nov 25, 2018 Date of Discharge: Dec 03, 2018 Admitting Diagnosis: foot infection, sepsis Final Diagnosis Gangrenous right foot Soft tissue infection, right foot\ sepsis s/p Right 2nd and 3rd toe amputation, open; Right first metatarsal partial resection; Right lateral foot debridement on 11/28 ESRD, on HD - L arm fistula Diabetes mellitus with peripheral neuropathy Peripheral vascular disease Hypertension, history of Afib, history of CAD with history of [place] Hyperlipidemia, history of CHF, history of Asthma, chronic stable GERD, Problems Medical Problems: (1) Acute respiratory distress Status: Acute (2) Diabetic infection of right foot Status: Acute (3) Fever Status: Acute (4) HCAP (healthcare-associated pneumonia) Status: Acute (5) History of left below knee amputation Status: Acute (6) Sepsis Status: Acute (7) Symptomatic anemia Status: Acute (8) Toe fracture, right Status: Acute Brief Hospital Course Allergies Allergies Coded Allergies Type Severity Reaction Last Updated Verified iodine Allergy Severe THROAT SWELLING 09/24/18 Yes lisinopril Allergy Severe 09/24/18 Yes Fish Containing Products Allergy Intermediate 09/24/18 Yes Penicillins Allergy Intermediate SEE COMMENT 09/24/18 Yes piperacillin Allergy Intermediate Hives 09/24/18 Yes tazobactam Allergy Intermediate 09/24/18 Yes Vital Signs Vital Signs Date Time Temp Pulse Resp B/P (MAP) Pulse Ox O2 Delivery O2 Flow Rate FiO2 12/03/18 12:03 77 125/65 12/03/18 11:46 Room Air 12/03/18 11:00 98.6 18 93 98.6 12/02/18 20:05 2.0 Lab Results Laboratory Tests Test 12/01/18 17:01 12/01/18 20:34 12/02/18 07:26 12/02/18 09:05 Glucose (Fingerstick) 158 mg/dL (70-99) 210 mg/dL (70-99) 133 mg/dL (70-99) White Blood Count 11.0 x10^3/uL (4.0-11.0) Red Blood Count 2.99 x10^6/uL (4.30-5.70) Hemoglobin 8.4 g/dL (13.0-17.5) Hematocrit 26.3 % (39.0-53.0) Mean Corpuscular Volume 88 fL (79-100) Mean Corpuscular Hemoglobin 28 pg (25-35) Mean Corpuscular Hemoglobin Concent 32 g/dL (31-37) Red Cell Distribution Width 16.4 % (11.5-14.5) Platelet Count 351 x10^3/uL (140-400) Neutrophils (%) (Auto) 74 % (31-73) Lymphocytes (%) (Auto) 13 % (24-48) Monocytes (%) (Auto) 10 % (0-9) Eosinophils (%) (Auto) 2 % (0-3) Basophils (%) (Auto) 1 % (0-3) Neutrophils # (Auto) 8.1 x10^3uL (1.8-7.7) Lymphocytes # (Auto) 1.4 x10^3/uL (1.0-4.8) Monocytes # (Auto) 1.1 x10^3/uL (0.0-1.1) Eosinophils # (Auto) 0.2 x10^3/uL (0.0-0.7) Basophils # (Auto) 0.1 x10^3/uL (0.0-0.2) Sodium Level 136 mmol/L (136-145) Potassium Level 4.1 mmol/L (3.5-5.1) Chloride Level 95 mmol/L (98-107) Carbon Dioxide Level 33 mmol/L (21-32) Anion Gap 8 (6-14) Blood Urea Nitrogen 34 mg/dL (8-26) Creatinine 8.0 mg/dL (0.7-1.3) Estimated GFR (Cockcroft-Gault) 8.6 Glucose Level 137 mg/dL (70-99) Calcium Level 9.6 mg/dL (8.5-10.1) Test 12/02/18 11:06 12/02/18 16:15 12/02/18 20:40 12/03/18 05:15 Glucose (Fingerstick) 136 mg/dL (70-99) 131 mg/dL (70-99) 133 mg/dL (70-99) White Blood Count 10.0 x10^3/uL (4.0-11.0) Red Blood Count 2.69 x10^6/uL (4.30-5.70) Hemoglobin 7.8 g/dL (13.0-17.5) Hematocrit 23.5 % (39.0-53.0) Mean Corpuscular Volume 88 fL (79-100) Mean Corpuscular Hemoglobin 29 pg (25-35) Mean Corpuscular Hemoglobin Concent 33 g/dL (31-37) Red Cell Distribution Width 16.7 % (11.5-14.5) Platelet Count 352 x10^3/uL (140-400) Neutrophils (%) (Auto) 75 % (31-73) Lymphocytes (%) (Auto) 13 % (24-48) Monocytes (%) (Auto) 9 % (0-9) Eosinophils (%) (Auto) 2 % (0-3) Basophils (%) (Auto) 0 % (0-3) Neutrophils # (Auto) 7.5 x10^3uL (1.8-7.7) Lymphocytes # (Auto) 1.3 x10^3/uL (1.0-4.8) Monocytes # (Auto) 0.9 x10^3/uL (0.0-1.1) Eosinophils # (Auto) 0.2 x10^3/uL (0.0-0.7) Basophils # (Auto) 0.0 x10^3/uL (0.0-0.2) Segmented Neutrophils % 69 % (35-66) Lymphocytes % 18 % (24-48) Monocytes % 10 % (0-10) Eosinophils % 3 % (0-5) Platelet Estimate Adequate (ADEQUATE) Hypochromasia Slight Anisocytosis Slight Sodium Level 137 mmol/L (136-145) Potassium Level 4.0 mmol/L (3.5-5.1) Chloride Level 97 mmol/L (98-107) Carbon Dioxide Level 34 mmol/L (21-32) Anion Gap 6 (6-14) Blood Urea Nitrogen 40 mg/dL (8-26) Creatinine 9.2 mg/dL (0.7-1.3) Estimated GFR (Cockcroft-Gault) 7.3 Glucose Level 136 mg/dL (70-99) Calcium Level 9.3 mg/dL (8.5-10.1) Test 12/03/18 07:59 12/03/18 11:42 Glucose (Fingerstick) 125 mg/dL (70-99) 121 mg/dL (70-99) Laboratory Tests Test 12/02/18 16:15 12/02/18 20:40 12/03/18 05:15 12/03/18 07:59 Glucose (Fingerstick) 131 mg/dL (70-99) 133 mg/dL (70-99) 125 mg/dL (70-99) White Blood Count 10.0 x10^3/uL (4.0-11.0) Red Blood Count 2.69 x10^6/uL (4.30-5.70) Hemoglobin 7.8 g/dL (13.0-17.5) Hematocrit 23.5 % (39.0-53.0) Mean Corpuscular Volume 88 fL (79-100) Mean Corpuscular Hemoglobin 29 pg (25-35) Mean Corpuscular Hemoglobin Concent 33 g/dL (31-37) Red Cell Distribution Width 16.7 % (11.5-14.5) Platelet Count 352 x10^3/uL (140-400) Neutrophils (%) (Auto) 75 % (31-73) Lymphocytes (%) (Auto) 13 % (24-48) Monocytes (%) (Auto) 9 % (0-9) Eosinophils (%) (Auto) 2 % (0-3) Basophils (%) (Auto) 0 % (0-3) Neutrophils # (Auto) 7.5 x10^3uL (1.8-7.7) Lymphocytes # (Auto) 1.3 x10^3/uL (1.0-4.8) Monocytes # (Auto) 0.9 x10^3/uL (0.0-1.1) Eosinophils # (Auto) 0.2 x10^3/uL (0.0-0.7) Basophils # (Auto) 0.0 x10^3/uL (0.0-0.2) Segmented Neutrophils % 69 % (35-66) Lymphocytes % 18 % (24-48) Monocytes % 10 % (0-10) Eosinophils % 3 % (0-5) Platelet Estimate Adequate (ADEQUATE) Hypochromasia Slight Anisocytosis Slight Sodium Level 137 mmol/L (136-145) Potassium Level 4.0 mmol/L (3.5-5.1) Chloride Level 97 mmol/L (98-107) Carbon Dioxide Level 34 mmol/L (21-32) Anion Gap 6 (6-14) Blood Urea Nitrogen 40 mg/dL (8-26) Creatinine 9.2 mg/dL (0.7-1.3) Estimated GFR (Cockcroft-Gault) 7.3 Glucose Level 136 mg/dL (70-99) Calcium Level 9.3 mg/dL (8.5-10.1) Test 12/03/18 11:42 Glucose (Fingerstick) 121 mg/dL (70-99) Brief Hospital Course Mr. Goel is a 53 old with prior known right foot infection, s/o surg with wound vac, had vac come off at HD, and he feels foot got reintroduced to infection wound vac and dressing change done by Gen surg HD was managed by nephrology Antibiotics per ID, Vancomycin and Meropenem will dc on 5 more weeks merrem Micro: BCx (11/25) - negative Wound Cx (11/28): S. aureus, PCN resistent; anaerobic cx pending Discharge Information Condition at Discharge: Improved Follow Up: Weeks Disposition/Orders: D/C to Home Scheduled Aspirin (Aspirin) 325 Mg Tablet, 1 TAB PO DAILY for heart health , #30 Ref 5 (Reported) Entered as Reported by: JW JUSTIN on 07/03/18 1520 Last Action: Continued on 11/25/181736 by GOMEZ SUMNER MD Atorvastatin Calcium (Lipitor) 80 Mg Tablet, 40 MG PO HS for FOR CHOLESTEROL, #30 Ref 0 (Reported) Entered as Reported by: Daron Shipley on 06/28/18 115 Last Action: Converted on 11/25/181736 by GOMEZ SUMENR MD Calcium Carbonate (Calcium Carbonate) 500 Mg Tablet, 500 MG PO BID for supplement, (Reported) Entered as Reported by: Daron Shipley on 06/28/18 1154 Last Action: Continued on 11/25/181736 by GOMEZ SUMNER MD Carvedilol (Coreg ) 3.125 Mg Tablet, 3.125 MG PO BIDWMEALS for heart failure, (Reported) Entered as Reported by: WJ JUSTIN on 07/03/18 1519 Last Action: Continued on 11/25/181736 by GOMEZ SUMNER MD Clopidogrel Bisulfate (Plavix) 75 Mg Tablet, 75 MG PO DAILY for TO PREVENT BLOOD CLOTS, #30 Ref 0 (Reported) Entered as Reported by: Daron Shipley on 06/28/18 1154 Last Action: Continued on 11/25/181736 by GOMEZ SUMNER MD Famotidine (Famotidine) 20 Mg Tablet, 20 MG PO HS, (Reported) Entered as Reported by: DELMA BOLDEN on 07/31/17 1709 Last Action: Continued on 11/25/181736 by GOMEZ SUMNER MD Fluticasone Propionate (Flovent 110MCG Hfa) 12 Gm Aer.w.adap, 2 PUFF IH BID, #1 Ref 2 (Reported) Entered as Reported by: ERICA TOM on 01/28/18 2331 Last Action: Converted on 11/25/181736 by GOMEZ SUMNER MD Isosorbide Mononitrate (Isosorbide Mononitrate Er) 30 Mg Tab.er.24h, 30 MG PO DAILY for angina for 30 Days, #30 Prescribed by: TONI LEE MD on 11/20/18 1516 Last Action: Continued on 11/25/181736 by GOMEZ SUMNER MD Levetiracetam (Keppra) 1,000 Mg Tablet, 1 TAB PO BID, #60 Ref 5 (Reported) Entered as Reported by: JACKELIN TEIXEIRA on 04/14/18 1359 Last Action: Converted on 11/25/181736 by GOMEZ SUMNER MD Levothyroxine Sodium (Levothyroxine Sodium) 175 Mcg Tablet, 175 MCG PO DAILYAC for THYROID SUPPLEMENT, #30 Ref 0 (Reported) Entered as Reported by: Daron Shipley on 06/28/18 115 Last Action: Continued on 11/25/181736 by GOMEZ SUMNER MD Magnesium Oxide (Magnesium) 400 Mg Capsule, 400 MG PO DAILY for supplement, (Reported) Entered as Reported by: Daron Shipley on 06/28/18 115 Last Action: Converted on 11/25/181736 by GOMEZ SUMNER MD Meropenem (Merrem) 500 Mg Vial, 500 MG IV DAILY for foot infection, #35 Prescribed by: SUGAR BEAL on 12/03/18 1404 Oxycodone Hcl/Acetaminophen (Endocet 10-325 Mg Tablet) 1 Each Tablet, 1 TAB PO QID, #120 (Reported) Entered as Reported by: ERICA TOM on 01/28/182330 Last Action: Continued on 11/25/181736 by GOMEZ SUMNER MD Pramipexole Di-Hcl (Mirapex) 0.25 Mg Tablet, 1 TAB PO DAILY, #30 Ref 5 (Reported) Entered as Reported by: ERICA TOM on 01/28/182330 Last Action: Converted on 11/25/181736 by GOMEZ SUMNER MD Zolpidem Tartrate (Zolpidem Tartrate) 5 Mg Tablet, 1 TAB PO QHS, #30 Ref 2 (Reported) Entered as Reported by: ERICA TOM on 01/28/182330 Last Action: Continued on 11/25/181736 by GOMEZ SUMNER MD Scheduled PRN Acetaminophen (Tylenol) 325 Mg Tablet, 650 MG PO PRN Q6HRS PRN for FEVER, (Reported) Entered as Reported by: DELMA BOLDEN on 07/31/17 172 Last Action: Continued on 11/25/181736 by GOMEZ SUMNER MD Albuterol Sulfate (Ventolin Hfa Inhaler) 18 Gm Hfa.aer.ad, 1 PUFF INH Q6HRS PRN for SHORTNESS OF BREATH, Ref 0 (Reported) Entered as Reported by: ARIES RAYMUNDO on 03/27/17 1350 Last Action: Converted on 11/25/181736 by GOMEZ SUMNER MD Patient Instructions Patient Instructions > 30 min face to face SUGAR BEAL MD Dec 03, 2018 14:11
[2018-12-03 15:00] VITALS: BP 176/89
[2018-12-03] MEDS ORDERED: LEVO175T5 PO (15:10)
[2018-12-03] MEDS ORDERED: CLOP75TA57 PO (15:10)
[2018-12-03] MEDS ORDERED: OXYC-317 PO (15:11)
[2018-12-03] MEDS ORDERED: FLUT12AE IH (15:17)
[2018-12-03] MEDS ORDERED: FAMO20TA5 PO (15:17)
[2018-12-03] MEDS ORDERED: VENTOLIN HFA18 GM INH (15:17)
[2018-12-03] MEDS ORDERED: PRAM0.255 PO (15:17)
[2018-12-03] MEDS ORDERED: ZOLP5TAB5 PO (15:17)
[2018-12-03] MEDS ORDERED: CARV3.12 PO (15:17)
[2018-12-03] MEDS ORDERED: ASPI325T8 PO (15:17)
[2018-12-03] MEDS ORDERED: LIPITOR80 MG PO (15:17)
[2018-12-03] MEDS ORDERED: ISOS30TA4 PO (15:17)
--- NOTE | 2018-12-03 15:53 | NUR ---
Pt has full benefits for home infusion and is given bedside teach by Pepito from [facility]. Pt also stated he has done home infusion in the past. orders faxed to [facility] and left a voice mail to Karsten regarding plan. SW arranged transportation via [facility] between [phone]. Pt agreeable with plans and requested SW not to call his so he can surprise her when he gets home. CONSUELO COLIN.
--- NOTE | 2018-12-03 16:00 | NUR ---
Wound Care Removed hospital wound vac at time of d/c and vac tubing was connected to pt's home wound vac. Vac suctioning well at -125 mmHg continuous suction. Will have Wound clinic office call pt tomorrow for f/u appt next week.
--- NOTE | 2018-12-03 16:41 | NUR ---
Discharge Note: VLADISLAV WILKES Discharge instructions and discharge home medications reviewed with Patient and a copy given. All questions have been answered and understanding verbalized. The following instructions and handouts were given: sepsis, midline Discontinued lines and drains: intact. Patient discharged to Home w/services with[facility] [employer] with transportation to home
== END 2018-12-03 16:43 | disposition home health service (06) | DRG 853 ==
LOC: ER 11:35 → 1 WEST ICU 14:30 → 5 NORTH 11-26 10:38
PROVIDERS: ADMIT Internal Medicine; ATTEND Internal Medicine
PROC: 5A1D70Z Performance of Urinary Filtration, Intermittent, Less than 6 Hours Per Day (ICD-10-PCS; 2018-11-26)
PROC: 0Y6M0ZC Detachment at Right Foot, Partial 3rd Ray, Open Approach (ICD-10-PCS; 2018-11-28)
PROC: 5A1D70Z Performance of Urinary Filtration, Intermittent, Less than 6 Hours Per Day (ICD-10-PCS; 2018-11-28)
PROC: 0Y6M0Z9 Detachment at Right Foot, Partial 1st Ray, Open Approach (ICD-10-PCS; principal; 2018-11-28 08:30)
PROC: 0Y6M0ZB Detachment at Right Foot, Partial 2nd Ray, Open Approach (ICD-10-PCS; 2018-11-28 08:30)
PROC: 5A1D70Z Performance of Urinary Filtration, Intermittent, Less than 6 Hours Per Day (ICD-10-PCS; 2018-11-30)
PROC: 5A1D70Z Performance of Urinary Filtration, Intermittent, Less than 6 Hours Per Day (ICD-10-PCS; 2018-12-03)
DX: A41.9 Sepsis, unspecified organism (principal); J18.9 Pneumonia, unspecified organism; N18.6 End stage renal disease; J96.01 Acute respiratory failure with hypoxia; I13.2 Hypertensive heart and chronic kidney disease with heart failure and with stage 5 chronic kidney disease, or end stage renal disease; J44.0 Chronic obstructive pulmonary disease with (acute) lower respiratory infection; I50.30 Unspecified diastolic (congestive) heart failure; E11.52 Type 2 diabetes mellitus with diabetic peripheral angiopathy with gangrene; L03.115 Cellulitis of right lower limb; F41.9 Anxiety disorder, unspecified; I25.10 Atherosclerotic heart disease of native coronary artery without angina pectoris; K21.9 Gastro-esophageal reflux disease without esophagitis; E78.00 Pure hypercholesterolemia, unspecified; I25.2 Old myocardial infarction; E66.01 Morbid (severe) obesity due to excess calories; E11.22 Type 2 diabetes mellitus with diabetic chronic kidney disease; E78.5 Hyperlipidemia, unspecified; Y95 Nosocomial condition; D64.9 Anemia, unspecified; I48.91 Unspecified atrial fibrillation; F03.90 Unspecified dementia, unspecified severity, without behavioral disturbance, psychotic disturbance, mood disturbance, and anxiety; K57.90 Diverticulosis of intestine, part unspecified, without perforation or abscess without bleeding; F32.9 Major depressive disorder, single episode, unspecified; M19.90 Unspecified osteoarthritis, unspecified site; M06.9 Rheumatoid arthritis, unspecified; E03.9 Hypothyroidism, unspecified; Z96.659 Presence of unspecified artificial knee joint; E11.42 Type 2 diabetes mellitus with diabetic polyneuropathy; G47.30 Sleep apnea, unspecified; S92.511A Displaced fracture of proximal phalanx of right lesser toe(s), initial encounter for closed fracture; X58.XXXA Exposure to other specified factors, initial encounter; Z87.891 Personal history of nicotine dependence; Z86.73 Personal history of transient ischemic attack (TIA), and cerebral infarction without residual deficits; Z68.34 Body mass index [BMI] 34.0-34.9, adult; Z89.429 Acquired absence of other toe(s), unspecified side; Z99.2 Dependence on renal dialysis; Z89.512 Acquired absence of left leg below knee; Z91.15 Patient's noncompliance with renal dialysis; Z88.0 Allergy status to penicillin; Z88.8 Allergy status to other drugs, medicaments and biological substances; Z88.1 Allergy status to other antibiotic agents; Z91.041 Radiographic dye allergy status; Z95.5 Presence of coronary angioplasty implant and graft; Z82.49 Family history of ischemic heart disease and other diseases of the circulatory system; Z83.3 Family history of diabetes mellitus; Z91.19 Patient's noncompliance with other medical treatment and regimen; Z89.421 Acquired absence of other right toe(s); Z86.14 Personal history of Methicillin resistant Staphylococcus aureus infection; Z86.19 Personal history of other infectious and parasitic diseases; Y93.89 Activity, other specified; Y92.89 Other specified places as the place of occurrence of the external cause; Y99.8 Other external cause status; Z97.14 Presence of artificial left leg (complete) (partial)
CPT/HCPCS: 36415; 36569; 71045; 71250; 73630; 80048; 80053; 80069; 80202; 82962; 83605; 85007; 85025; 85610; 87040; 87071; 87075; 87186; 87641; 87804; 88305; 88311; 94640; 94760; 96365; 96368; 99292; A7015; J0881; J1100; J1644; J1956; J2001; J2185; J2250; J2370; J2405; J2704; J3010; J3370; J3490; J7030; J7040; J7613; J7620; J7626; 97110; 99291-25; A4461

== ENCOUNTER 2018-12-16 18:12 | Inpatient (IN) | payer MEDICARE, OTHER ==
[~2018-12-16] VITALS: Ht 198.1 cm; Wt 148.9 kg
[2018-12-16] MEDS ORDERED: fentaNYL PF VIAL 100 MCG/2 ML VIAL IV PRN (18:45)
[2018-12-16] MEDS ORDERED: ONDANSETRON PF 4 MG/2 ML VIAL. IV ONE (18:45)
[2018-12-16] MEDS ORDERED: ASPIRIN CHEWABLE 81 MG TABLET. PO ONE (18:45)
--- NOTE | 2018-12-16 18:50 | PHYS DOC ---
Past Medical History Past Medical History: Asthma, CVA, Diabetes-Type II, Hypertension, PR, Pneumonia Additional Past Medical Histor: 8 MIs, 8 CVAs, multiple stents Past Surgical History: Angioplasty, Other Additional Past Surgical Histo: HD SHUNT,TOE AMPUTATION,RIGHT ARM SX,RIGHT ARM FX,SCROTAL SX,HEART STENT Additional Information: Quit smoking 7 years ago. Alcohol Use: None Drug Use: None Adult General Chief Complaint Chief Complaint: CHEST PAIN HPI HPI Patient is a 53-year-old male who presents with complaint of left-sided chest pain that started about 3 days ago. Patient states the pain has been fairly constant and he describes this like a throbbing pain. He denies any nausea, vomiting or diaphoresis. He rates pain as moderate and states the pain is worsened with exertion. Patient also complains of right foot/lower leg pain, stating that he has had an infection and has been on IV antibiotics for the infection. Patient states that he had a PICC line but states the PICC line had fallen out a few days ago so has not been receiving the antibiotics. Patient also indicates that he is on dialysis and states that his last dialysis was last Sunday. He states that he missed his dialysis on and Sunday because dialysis did not set up transportation for him. Review of Systems Review of Systems Constitutional: Denies fever or chills [] Respiratory: Positive shortness of breath [] Cardiovascular: No additional information not addressed in HPI [] GI: Denies abdominal pain, nausea, vomiting or diarrhea [] Musculoskeletal: Positive right lower leg and foot pain [] All other systems were reviewed and found to be within normal limits, except as documented in this note. Current Medications Current Medications Current Medications Medications (Trade) Dose Ordered Sig/[facility] Start Time Stop Time Status Last Admin Dose Admin Aspirin (Children'S Aspirin) 324 mg 1X ONCE 12/16/18 18:45 12/16/18 18:46 DC Fentanyl Citrate (Fentanyl 2ml Vial) 25 mcg PRN Q15MIN PRN 12/16/18 18:45 12/17/18 18:44 Ondansetron HCl (Zofran) 4 mg 1X ONCE 12/16/18 18:45 12/16/18 18:46 DC Allergies Allergies Allergies Coded Allergies Type Severity Reaction Last Updated Verified iodine Allergy Severe THROAT SWELLING 09/24/18 Yes lisinopril Allergy Severe 09/24/18 Yes Fish Containing Products Allergy Intermediate 09/24/18 Yes Penicillins Allergy Intermediate SEE COMMENT 09/24/18 Yes piperacillin Allergy Intermediate Hives 09/24/18 Yes tazobactam Allergy Intermediate 09/24/18 Yes Physical Exam Physical Exam Constitutional: Well developed, well nourished, no acute distress, non-toxic appearance. [] HENT: Normocephalic, atraumatic, bilateral external ears normal, oropharynx moist, no oral exudates, nose normal. [] Eyes: PERRLA, EOMI, conjunctiva normal, no discharge. [] Neck: Normal range of motion, no tenderness, supple, no stridor. [] Cardiovascular: Regular rate and rhythm[] Lungs & Thorax: Bilateral breath sounds clear to auscultation [] Abdomen: Bowel sounds normal, soft, no tenderness. [] Skin: Warm, dry. [] Extremities: There is left lower extremity AKA. Right lower extremity demonstrates a transmetatarsal amputation and wound VAC in place. [] Neurologic: Alert and oriented X 3, no focal deficits noted. [] Current Patient Data Vital Signs Vital Signs Date Time Temp Pulse Resp B/P (MAP) Pulse Ox O2 Delivery O2 Flow Rate FiO2 12/16/18 18:22 98.8 77 16 149/66 (93) 99 Room Air 98.8 Lab Values Laboratory Tests Test 12/16/18 19:20 12/16/18 19:40 Sodium Level 132 mmol/L (136-145) L Potassium Level 4.4 mmol/L (3.5-5.1) Chloride Level 100 mmol/L (98-107) Carbon Dioxide Level 18 mmol/L (21-32) L Anion Gap 14 (6-14) Blood Urea Nitrogen 65 mg/dL (8-26) H Creatinine 6.6 mg/dL (0.7-1.3) H Estimated GFR (Cockcroft-Gault) 10.7 BUN/Creatinine Ratio 10 (6-20) Glucose Level 142 mg/dL (70-99) H Calcium Level 9.2 mg/dL (8.5-10.1) Phosphorus Level 5.1 mg/dL (2.6-4.7) H Magnesium Level 2.3 mg/dL (1.8-2.4) Total Bilirubin 0.4 mg/dL (0.2-1.0) Aspartate Amino Transferase (AST) 17 U/L (15-37) Alanine Aminotransferase (ALT) 11 U/L (16-63) L Alkaline Phosphatase 65 U/L (46-116) Troponin I Quantitative < 0.017 ng/mL (0.000-0.055) Total Protein 8.3 g/dL (6.4-8.2) H Albumin 2.4 g/dL (3.4-5.0) L Albumin/Globulin Ratio 0.4 (1.0-1.7) L White Blood Count 6.4 x10^3/uL (4.0-11.0) Red Blood Count 2.37 x10^6/uL (4.30-5.70) L Hemoglobin 6.6 g/dL (13.0-17.5) *L Hematocrit 20.8 % (39.0-53.0) *L Mean Corpuscular Volume 88 fL (79-100) Mean Corpuscular Hemoglobin 28 pg (25-35) Mean Corpuscular Hemoglobin Concent 32 g/dL (31-37) Red Cell Distribution Width 17.4 % (11.5-14.5) H Platelet Count 219 x10^3/uL (140-400) Neutrophils (%) (Auto) 63 % (31-73) Lymphocytes (%) (Auto) 18 % (24-48) L Monocytes (%) (Auto) 12 % (0-9) H Eosinophils (%) (Auto) 5 % (0-3) H Basophils (%) (Auto) 3 % (0-3) Neutrophils # (Auto) 4.0 x10^3uL (1.8-7.7) Lymphocytes # (Auto) 1.1 x10^3/uL (1.0-4.8) Monocytes # (Auto) 0.7 x10^3/uL (0.0-1.1) Eosinophils # (Auto) 0.3 x10^3/uL (0.0-0.7) Basophils # (Auto) 0.2 x10^3/uL (0.0-0.2) Laboratory Tests 12/16/18 19:40 Laboratory Tests 12/16/18 19:20 EKG EKG [] Radiology/Procedures Radiology/Procedures [] Impressions: PROCEDURE: PORTABLE CHEST 1V EXAM: Chest, single view. HISTORY: Chest pain. COMPARISON: CT dated 11/25/2018. FINDINGS: A frontal view of the chest is obtained. There is no infiltrate, pleural effusion or pneumothorax. The heart is normal in size. There are vascular stents overlying the superior mediastinum. IMPRESSION: No acute pulmonary finding. Electronically signed by: Soraya Chisholm MD (12/16/2018 7:31 PM) [facility] DICTATED and SIGNED BY: SORAYA CHISHOLM MD Course & Med Decision Making Course & Med Decision Making Pertinent Labs and Imaging studies reviewed. (See chart for details) [] Dragon Disclaimer Dragon Disclaimer This electronic medical record was generated, in whole or in part, using a voice recognition dictation system. Departure Departure Impression: Primary Impression: Symptomatic anemia Additional Impression: Chest pain Disposition: ADMITTED INPATIENT Admitting Physician: Franky Guerin Condition: IMPROVED Referrals: MARIA ISABEL LOPEZ DO (PCP) Problem Qualifiers Additional Impression: Chest pain Chest pain type: unspecified Qualified Codes: R07.9 - Chest pain, unspecified RONALD PHELPS Jr., DO December 16, 2018 18:50
--- NOTE | 2018-12-16 19:34 | RAD ---
EXAM: Chest, single view. HISTORY: Chest pain. COMPARISON: CT dated 11/25/2018. FINDINGS: A frontal view of the chest is obtained. There is no infiltrate, pleural effusion or pneumothorax. The heart is normal in size. There are vascular stents overlying the superior mediastinum. IMPRESSION: No acute pulmonary finding. Electronically signed by: Soraya Hollins MD (12/16/2018 7:31 PM) [facility]
[2018-12-16 19:49] LABS: BASO # 0.2 x10^3/uL (0.0-0.2); BASO % 3 % (0-3); EOS # 0.3 x10^3/uL (0.0-0.7); EOS % 5 % (0-3); LYMPH # 1.1 x10^3/uL (1.0-4.8); LYMPH % 18 % (24-48); MEAN CORPUSCULAR HEMOGLOBIN 28 pg (25-35); MEAN CORPUSCULAR HGB CONC 32 g/dL (31-37); MEAN CORPUSCULAR VOLUME 88 fL (79-100); MONO # 0.7 x10^3/uL (0.0-1.1); MONO % 12 % (0-9); NEUT % 63 % (31-73); PLATELET COUNT 219 x10^3/uL (140-400); RED BLOOD COUNT 2.37 x10^6/uL (4.30-5.70); RED CELL DISTRIBUTION WIDTH 17.4 % (11.5-14.5); WHITE BLOOD COUNT 6.4 x10^3/uL (4.0-11.0)
[2018-12-16 19:51] LABS: CALCIUM 9.2 mg/dL (8.5-10.1); CREATININE 6.6 mg/dL (0.7-1.3); GFR 10.7; POTASSIUM 4.4 mmol/L (3.5-5.1)
[2018-12-16 19:53] LABS: HEMOGLOBIN 6.6 g/dL (13.0-17.5)
[2018-12-16 19:54] LABS: HEMATOCRIT 20.8 % (39.0-53.0)
[2018-12-16 20:04] LABS: ALBUMIN 2.4 g/dL (3.4-5.0); ALBUMIN/GLOBULIN RATIO 0.4 (1.0-1.7); MAGNESIUM 2.3 mg/dL (1.8-2.4); PHOSPHORUS 5.1 mg/dL (2.6-4.7); TOTAL BILIRUBIN 0.4 mg/dL (0.2-1.0); TOTAL PROTEIN 8.3 g/dL (6.4-8.2)
[2018-12-16] MEDS ORDERED: ONDANSETRON PF 4 MG/2 ML VIAL. IV PRN (20:30)
[2018-12-16] MEDS ORDERED: DIPH50CA PO (23:50)
[2018-12-16] MEDS ORDERED: LINA5TAB PO (23:52)
[2018-12-17] VITALS (13 sets, daily range): BP systolic 122–193; BP diastolic 45–92
--- NOTE | 2018-12-17 00:58 | NUR ---
The patient, BHAVYA WILKES, 53 y/o, M admitted by VIC TIWARI III, DO, was given written information regarding hospital policies, unit procedures and contact persons. Valuables were checked and left in room with patient. Patient has a wound vac placed on his right foot and has been seeing wound care outpatient. Wound consult has been placed.
[2018-12-17] MEDS: MORPHINE SULFATE 2 MG/ML VIAL. IV PRN ×3 (04:21→16:42)
[2018-12-17 06:26] LABS: BASO # 0.2 x10^3/uL (0.0-0.2); BASO % 3 % (0-3); EOS # 0.3 x10^3/uL (0.0-0.7); EOS % 5 % (0-3); HEMATOCRIT 22.6 % (39.0-53.0); HEMOGLOBIN 7.2 g/dL (13.0-17.5); LYMPH # 1.2 x10^3/uL (1.0-4.8); LYMPH % 22 % (24-48); MEAN CORPUSCULAR HEMOGLOBIN 28 pg (25-35); MEAN CORPUSCULAR HGB CONC 32 g/dL (31-37); MEAN CORPUSCULAR VOLUME 88 fL (79-100); MONO # 0.6 x10^3/uL (0.0-1.1); MONO % 10 % (0-9); NEUT # 3.3 x10^3uL (1.8-7.7); NEUT % 60 % (31-73); PLATELET COUNT 207 x10^3/uL (140-400); RED BLOOD COUNT 2.56 x10^6/uL (4.30-5.70); RED CELL DISTRIBUTION WIDTH 17.2 % (11.5-14.5); WHITE BLOOD COUNT 5.6 x10^3/uL (4.0-11.0)
[2018-12-17 06:36] LABS: CALCIUM 9.1 mg/dL (8.5-10.1); CREATININE 6.5 mg/dL (0.7-1.3); GFR 10.9
--- NOTE | 2018-12-17 07:00 | EKG ---
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
--- NOTE | 2018-12-17 07:33 | RAD ---
CHEST AP ONLY History: PICC placement Comparison: December 16, 2018 Findings: Single view of the chest is submitted. There is now a right upper extremity PICC, tip somewhat difficult to visualize, believed to be in the right atrium. There are again stents in the paramediastinal regions superiorly. Pericardial cardiac silhouette is again enlarged. There is no pneumothorax or significant pleural fluid. Impression: 1. There is now a right upper extremity PICC, tip apparently in the right atrium. Electronically signed by: Carlos Montiel MD (12/17/2018 7:30 AM) [facility]
[2018-12-17] MEDS ORDERED: IV NORMAL SALINE 1000ML BAG 1,000 ML IV PRN ×2 (09:03)
[2018-12-17] MEDS ORDERED: diphenhydrAMINE 50 MG/ML VIAL IV PRN ×2 (09:15)
[2018-12-17] MEDS ORDERED: ALBUMIN HUMAN 25% 200 ML IV PRN (09:15)
[2018-12-17] MEDS ORDERED: DIALYSIS PATIENT. MC PRN ×2 (09:15)
[2018-12-17] MEDS ORDERED: LABETALOL 20 MG/4 ML DISP.SYRIN. IVP PRN (09:30)
--- NOTE | 2018-12-17 09:33 | PDOC2 ---
BRENDA HAWLEY MEDICAL COMMUNICATION SPECIALIST 12/17/18 0933: CARDIAC CONSULT DATE OF CONSULT Date of Consult DATE: 12/17/18 TIME: 09:20 REASON FOR CONSULT Reason for Consult: Chest pain REFERRING PHYSICIAN Referring Physician: Mag SOURCE Source: Chart review, Patient HISTORY OF PRESENT ILLNESS HISTORY OF PRESENT ILLNESS This is a 53 yo male admitted for complains of SOA and chest pain. Reports that this was left sided and throbbing worse with deep breathing sometimes. These are both now absent after blood transfusion. He has not gone to his dialysis in the last 2 weeks claiming transportation issues. He currently still has his wound vac to his right foot from previous amputation. Claims complains with his medications but has failed to follow up in our office several times. No nausea or vomiting, no palpitations. PAST MEDICAL HISTORY Past Medical History Cardiovascular: AFIB, CAD, CHF, HTN, [place], Hyperlipidemia, Other (PAD) Pulmonary: COPD CENTRAL NERVOUS SYSTEM: Dementia, Peripheral neuropathy, Seizure, TIA GI: Diverticulosis, Other (pancreatitis) Heme/Onc: Anemia NOS Musculoskeletal: Osteoarthritis Rheumatologic: Rheumatoid arthritis (?) Infectious disease: No pertinent hx ENT: No pertinent hx Renal/: Chronic renal failure Endocrine: Diabetes (2), Hypothyroidism Dermatology: No pertinent hx PAST SURGICAL HISTORY Past Surgical History Cataract Removal, Total knee replacement (left), Other (Left BKA; AV fistula), PCI, Amputation, right fifth toe culturing and actually primary closure 08/07/2018 FAMILY HISTORY Family History: Diabetes, Hypertension SOCIAL HISTORY Smoke: No ALCOHOL: none Drugs: None Lives: with Family CURRENT MEDICATIONS CURRENT MEDICATIONS Current Medications Medications (Trade) Dose Ordered Sig/[place] Route PRN Reason Start Time Stop Time Status Last Admin Dose Admin Morphine Sulfate (Morphine Sulfate) 2 mg PRN Q2HR PRN IV PAIN 12/16/18 20:30 12/17/18 20:29 12/17/18 04:21 ALLERGIES ALLERGIES: Coded Allergies: iodine (Verified Allergy, Severe, THROAT SWELLING, 09/24/18) lisinopril (Verified Allergy, Severe, 09/24/18) Fish Containing Products (Verified Allergy, Intermediate, 09/24/18) Penicillins (Verified Allergy, Intermediate, SEE COMMENT, 09/24/18) Tolerates meropenem and Cephalosporins piperacillin (Verified Allergy, Intermediate, Hives, 09/24/18) Tolerates meropenem tazobactam (Verified Allergy, Intermediate, 09/24/18) ROS Review of System 14 point ROS evaluated with peritnent positives noted per HPI PHYSICAL EXAM General: Alert, Oriented X3, Cooperative, No acute distress HEENT: Atraumatic, Mucous membr. moist/pink Lungs: Other (diminished bases) Heart: Regular rate (SR), Normal S1, Normal S2, Other (2/6 sytolic murmur to LLS border) Abdomen: Soft, No tenderness, Other (obese) Extremities: No cyanosis Skin: Other (right foot surgical wound wound vac in placed\) Neuro: Normal speech, Sensation intact Psych/Mental Status: Mental status NL, Mood NL MUSCULOSKELETAL: Osteoarthritic changes both hands, Other (LBKA) VITALS VITALS Vital Signs Date Time Temp Pulse Resp B/P (MAP) Pulse Ox O2 Delivery O2 Flow Rate FiO2 12/17/18 08:01 Room Air 12/17/18 07:30 98.5 81 18 175/89 98.5 12/17/18 07:00 97 LABS Lab: Laboratory Tests Test 12/16/18 19:20 12/16/18 19:40 12/16/18 23:59 12/17/18 06:15 Sodium Level 132 mmol/L (136-145) 135 mmol/L (136-145) Potassium Level 4.4 mmol/L (3.5-5.1) 5.0 mmol/L (3.5-5.1) Chloride Level 100 mmol/L (98-107) 104 mmol/L (98-107) Carbon Dioxide Level 18 mmol/L (21-32) 23 mmol/L (21-32) Anion Gap 14 (6-14) 8 (6-14) Blood Urea Nitrogen 65 mg/dL (8-26) 62 mg/dL (8-26) Creatinine 6.6 mg/dL (0.7-1.3) 6.5 mg/dL (0.7-1.3) Estimated GFR (Cockcroft-Gault) 10.7 10.9 BUN/Creatinine Ratio 10 (6-20) Glucose Level 142 mg/dL (70-99) 113 mg/dL (70-99) Calcium Level 9.2 mg/dL (8.5-10.1) 9.1 mg/dL (8.5-10.1) Phosphorus Level 5.1 mg/dL (2.6-4.7) Magnesium Level 2.3 mg/dL (1.8-2.4) Total Bilirubin 0.4 mg/dL (0.2-1.0) Aspartate Amino Transf (AST/SGOT) 17 U/L (15-37) Alanine Aminotransferase (ALT/SGPT) 11 U/L (16-63) Alkaline Phosphatase 65 U/L (46-116) Troponin I Quantitative < 0.017 ng/mL (0.000-0.055) 0.034 ng/mL (0.000-0.055) 0.019 ng/mL (0.000-0.055) UT-Cwm-W-Type Natriuretic Peptide 6710 pg/mL (0-124) Total Protein 8.3 g/dL (6.4-8.2) Albumin 2.4 g/dL (3.4-5.0) Albumin/Globulin Ratio 0.4 (1.0-1.7) White Blood Count 6.4 x10^3/uL (4.0-11.0) 5.6 x10^3/uL (4.0-11.0) Red Blood Count 2.37 x10^6/uL (4.30-5.70) 2.56 x10^6/uL (4.30-5.70) Hemoglobin 6.6 g/dL (13.0-17.5) 7.2 g/dL (13.0-17.5) Hematocrit 20.8 % (39.0-53.0) 22.6 % (39.0-53.0) Mean Corpuscular Volume 88 fL (79-100) 88 fL (79-100) Mean Corpuscular Hemoglobin 28 pg (25-35) 28 pg (25-35) Mean Corpuscular Hemoglobin Concent 32 g/dL (31-37) 32 g/dL (31-37) Red Cell Distribution Width 17.4 % (11.5-14.5) 17.2 % (11.5-14.5) Platelet Count 219 x10^3/uL (140-400) 207 x10^3/uL (140-400) Neutrophils (%) (Auto) 63 % (31-73) 60 % (31-73) Lymphocytes (%) (Auto) 18 % (24-48) 22 % (24-48) Monocytes (%) (Auto) 12 % (0-9) 10 % (0-9) Eosinophils (%) (Auto) 5 % (0-3) 5 % (0-3) Basophils (%) (Auto) 3 % (0-3) 3 % (0-3) Neutrophils # (Auto) 4.0 x10^3uL (1.8-7.7) 3.3 x10^3uL (1.8-7.7) Lymphocytes # (Auto) 1.1 x10^3/uL (1.0-4.8) 1.2 x10^3/uL (1.0-4.8) Monocytes # (Auto) 0.7 x10^3/uL (0.0-1.1) 0.6 x10^3/uL (0.0-1.1) Eosinophils # (Auto) 0.3 x10^3/uL (0.0-0.7) 0.3 x10^3/uL (0.0-0.7) Basophils # (Auto) 0.2 x10^3/uL (0.0-0.2) 0.2 x10^3/uL (0.0-0.2) Test 12/17/18 07:57 Glucose (Fingerstick) 114 mg/dL (70-99) ECHOCARDIOGRAM ECHOCARDIOGRAM <Conclusion> The Left Ventricle is borderline dilated. The left ventricular systolic function is normal. The Ejection Fraction is 50-55%. There is mild concentric left ventricular hypertrophy. There is no significant aortic valvular stenosis. Doppler and Color Flow revealed trace aortic regurgitation. Doppler and Color-flow revealed trace to mild mitral regurgitation. Doppler and Color Flow revealed trace tricuspid regurgitation. DATE: 06/28/18 1630 HEART CATH HEART CATH <Conclusion> Moderate coronary artery disease in the left anterior descending. Stent in the left circumflex vessel which had previous distal occlusion which now had some flowl. No new significant lesions were identified. Small nondominant right coronary artery with a 70% proximal lesion. DATE: 09/18/18 1746 ASSESSMENT/PLAN ASSESSMENT/PLAN 1. Atypical CP: Trops nml.EKG SR without acute changes. Anemia contributing 2. Symptomatic anemia: Hgb initially at 6.6. S/P 2U PRBC 3. Chronic diastolic heart failure; compensated 4. ESRD currently having HD. 5. CAD; recent LHC noted above, no intervention. Clinically stable. 6. PAFIB; maintaining SR 7. Hypertension: labile episodes 8. DM2/HLP 9. Morbid obesity 10. Noncompliance: missed 2 weeks of HD claiming transport issues. Multiple failed appointment. Recommendations Continue secondary prevention measures Continue with coreg and imdur. Labetolol IV PRN. If no suspected GI bleed then restart DAPT. (ASA/Plavix) Fluid offloading per HD Transfusion per PCP Reinforced med compliance. Poor candidate for OAC with noncomplaince. ASA for stroke prevention. Nothing further cardiac snell ROB LOOMIS MD 12/17/18 1692: CARDIAC CONSULT ASSESSMENT/PLAN ASSESSMENT/PLAN Patient seen and examined. Agree with above nurse practitioner note. He does not have any clear indications for continuation of Plavix at this time. Okay to restart aspirin only. BRENDA HAWLEY APRN December 17, 2018 09:33 ROB LOOMIS MD December 17, 2018 17:14
--- NOTE | 2018-12-17 10:10 | PDOC1 ---
History and Physical Date of Admission: Date of Admission DATE: 12/17/18 TIME: 10:04 Chief Complaint: Problems: (1) Hyponatremia (2) Isabel-rectal abscess (3) Left foot infection (4) Hyperosmolar non-ketotic state in patient with type 2 diabetes mellitus (5) Ventricular tachycardia (6) Peripheral neuropathy (7) Nausea & vomiting (8) Renal failure (9) Renal failure (ARF), acute on chronic (10) Coronary artery disease (11) Severe protein-calorie malnutrition (12) CHF, acute on chronic (13) Congestive heart failure (14) Accelerated hypertension (15) GI bleed (16) AV fistula infection (17) Cardiac arrhythmia (18) AV fistula occlusion (19) AV fistula infection (20) Dyspnea (21) Hemoptysis (22) Leukocytosis (23) Influenza A (24) Compression fracture of L1 lumbar vertebra (25) Infection (26) Diabetic foot ulcer (27) CAD (coronary artery disease) (28) Diabetes mellitus type 2 in obese (29) Pancreatitis (30) Abdominal pain (31) ESRD (end stage renal disease) (32) Diabetes (33) End stage renal disease (34) NON-PRS CHRONIC ULCER OTH PRT RIGHT FOOT W NECROSIS OF BONE (35) TYPE 2 DIABETES MELLITUS WITH FOOT ULCER (36) Pulmonary edema (37) ESRD (end stage renal disease) (38) Right foot infection (39) ESRD (end stage renal disease) on dialysis (40) Fever (41) Sepsis (42) Chest pain (43) Symptomatic anemia (44) Diabetic toe ulcer Chief Complain: Chest pain shortness of breath weakness I missed dialysis History of Present Illness: HPI: Mr. Goel is a middle-aged -[place] male well-known to my service I first met him several years ago when he was much healthier and hadn't even started dialysis unit Since then he is on dialysis and has undergone a [id number] habitation and has a chronic wound on the other foot with wound VAC He is very noncompliant with dialysis We have him several times a month because he has missed dialysis He often complains that he cannot get transportation to the dialysis facility Once again he presents with chest pain and shortness of breath and has missed dialysis While in the ER as noted in hemoglobin of 6.6 Rates his symptoms at 10 out of 10 Has associated weakness Worse with movement Describes as agonizing I discussed case with ER physician wanted him with the patient and getting transfused and dialyzing and consult cardiology Past Medical/Surgical History: PMH/PSH: Cardiovascular: AFIB, CAD, CHF, HTN, [place], Hyperlipidemia, Other (PAD) Pulmonary: COPD CENTRAL NERVOUS SYSTEM: Dementia, Peripheral neuropathy, Seizure, TIA GI: Diverticulosis, Other (pancreatitis) Heme/Onc: Anemia NOS Musculoskeletal: Osteoarthritis Rheumatologic: Rheumatoid arthritis (?) Infectious disease: No pertinent hx ENT: No pertinent hx Renal/: Chronic renal failure Endocrine: Diabetes (2), Hypothyroidism Dermatology: No pertinent hx Allergies: Allergies: Coded Allergies: iodine (Verified Allergy, Severe, THROAT SWELLING, 09/24/18) lisinopril (Verified Allergy, Severe, 09/24/18) Fish Containing Products (Verified Allergy, Intermediate, 09/24/18) Penicillins (Verified Allergy, Intermediate, SEE COMMENT, 09/24/18) Tolerates meropenem and Cephalosporins piperacillin (Verified Allergy, Intermediate, Hives, 09/24/18) Tolerates meropenem tazobactam (Verified Allergy, Intermediate, 09/24/18) Family History: Family History: Coronary artery disease Social History: Social Hisoty: He does not drink smoke or take drugs he is to his Taryn Centeno is being treated for cancer Current Medications: Current Medications Current Medications Aspirin (Children'S Aspirin) 324 mg 1X ONCE PO ; Start 12/16/18 at 18:45; Stop 12/16/18 at 18:46; Status DC Fentanyl Citrate (Fentanyl 2ml Vial) 25 mcg PRN Q15MIN PRN IV PAIN GREATER THAN 3/10; Start 12/16/18 at 18:45; Stop 12/17/18 at 18:44 Ondansetron HCl (Zofran) 4 mg 1X ONCE IV ; Start 12/16/18 at 18:45; Stop 12/16/18 at 18:46; Status DC Ondansetron HCl (Zofran) 4 mg PRN Q8HRS PRN IV NAUSEA/VOMITING; Start 12/16/18 at 20:30; Stop 12/17/18 at 20:29 Morphine Sulfate (Morphine Sulfate) 2 mg PRN Q2HR PRN IV PAIN Last administered on 12/17/18at 09:42; Start 12/16/18 at 20:30; Stop 12/17/18 at 20:29 Sodium Chloride 1,000 ml @ 1,000 mls/hr Q1H PRN IV hypotension; Start 12/17/18 at 09:03; Stop 12/17/18 at 15:02 Albumin Human 200 ml @ 200 mls/hr 1X PRN PRN IV Hypotension; Start 12/17/18 at 09:15; Stop 12/17/18 at 15:14 Diphenhydramine HCl (Benadryl) 25 mg 1X PRN PRN IV ITCHING; Start 12/17/18 at 09:15; Stop 12/18/18 at 09:14 Diphenhydramine HCl (Benadryl) 25 mg 1X PRN PRN IV ITCHING; Start 12/17/18 at 09:15; Stop 12/18/18 at 09:14 Sodium Chloride 1,000 ml @ 400 mls/hr Q2H30M PRN IV PATENCY; Start 12/17/18 at 09:03; Stop 12/17/18 at 21:02 Info (PHARMACY MONITORING -- do not chart) 1 each PRN DAILY PRN MC SEE COMMENTS; Start 12/17/18 at 09:15 Info (PHARMACY MONITORING -- do not chart) 1 each PRN DAILY PRN MC SEE COMMENTS; Start 12/17/18 at 09:15 Carvedilol (Coreg) 3.125 mg BIDWMEALS PO ; Start 12/17/18 at 09:00 Isosorbide Mononitrate (Imdur) 30 mg DAILY PO ; Start 12/17/18 at 10:00 Atorvastatin Calcium (Lipitor) 40 mg QHS PO ; Start 12/17/18 at 21:00 Labetalol HCl (Normodyne Iv Push) 20 mg PRN Q2HR PRN IVP HYPERTENSION, SEE COMMENTS; Start 12/17/18 at 09:30 Active Scripts Active Isosorbide Mononitrate Er (Isosorbide Mononitrate) 30 Mg Tab.er.24h 30 Mg PO DAILY 30 Days Aspirin 325 Mg Tablet 1 Tab PO DAILY Coreg (Carvedilol) 3.125 Mg Tablet 3.125 Mg PO BIDWMEALS Lipitor (Atorvastatin Calcium) 80 Mg Tablet 40 Mg PO HS Flovent 110MCG Hfa (Fluticasone Propionate) 12 Gm Aer.w.adap 2 Puff IH BID Zolpidem Tartrate 5 Mg Tablet 1 Tab PO QHS PRN Mirapex (Pramipexole Di-Hcl) 0.25 Mg Tablet 1 Tab PO DAILY Famotidine 20 Mg Tablet 20 Mg PO HS Ventolin Hfa Inhaler (Albuterol Sulfate) 18 Gm Hfa.aer.ad 1 Puff INH Q6HRS PRN Endocet 10-325 Mg Tablet (Oxycodone Hcl/Acetaminophen) 1 Each Tablet 1 Tab PO QID PRN Levothyroxine Sodium 175 Mcg Tablet 175 Mcg PO DAILYAC Plavix (Clopidogrel Bisulfate) 75 Mg Tablet 75 Mg PO DAILY Merrem (Meropenem) 500 Mg Vial 500 Mg IV DAILY Reported Tradjenta (Linagliptin) 5 Mg Tablet 5 Mg PO DAILY Diphenhydramine Hcl 50 Mg Capsule 1 Cap PO PRN Magnesium (Magnesium Oxide) 400 Mg Capsule 400 Mg PO DAILY Calcium Carbonate 500 Mg Tablet 500 Mg PO BID Keppra (Levetiracetam) 1,000 Mg Tablet 1 Tab PO BID Tylenol (Acetaminophen) 325 Mg Tablet 650 Mg PO PRN Q6HRS PRN ROS: Review of Systems Review of System REVIEW OF SYSTEMS: GENERAL: Denies weakness SKIN: No bruising, hair changes or rashes. EYES: No blurred, double or loss of vision. NOSE AND THROAT: No history of nosebleeds, hoarseness or sore throat. HEART: Complains of chest pain LUNGS: Plan to shortness of breath GASTROINTESTINAL: Denies changes in appetite, nausea, vomiting, diarrhea or constipation. GENITOURINARY: No history of frequency, urgency, hesitancy or nocturia. NEUROLOGIC: Denies history of numbness, tingling, tremor or weakness. PSYCHIATRIC: No history of panic, anxiety or depression. ENDOCRINE: No history of heat or cold intolerance, polyuria or polydipsia. EXTREMITIES: States he has a wound VAC at home for his wound on his foot. Physical Exam: Vital Signs: Vital Signs Date Time Temp Pulse Resp B/P (MAP) Pulse Ox O2 Delivery O2 Flow Rate FiO2 12/17/18 09:42 97 Room Air 12/17/18 07:30 98.5 81 18 175/89 98.5 Physcial Exam: GEN.: No apparent distress. Alert and oriented. HEENT: Head is normocephalic, atraumatic NECK: Supple, no JVD LUNGS: Clear to auscultation without rhonchi or wheezing HEART: RRR, S1, S2 present. Peripheral pulses intact ABDOMEN: Soft, nontender. 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 A&O x 3 PSYCHIATRIC: Normal affect, normal mood. Stable SKIN: No ulcerations or rashes VASCULAR: slow capillary refill Labs: Labs: Laboratory Tests Test 12/16/18 19:20 12/16/18 19:40 12/16/18 23:59 12/17/18 06:15 Sodium Level 132 mmol/L (136-145) 135 mmol/L (136-145) Potassium Level 4.4 mmol/L (3.5-5.1) 5.0 mmol/L (3.5-5.1) Chloride Level 100 mmol/L (98-107) 104 mmol/L (98-107) Carbon Dioxide Level 18 mmol/L (21-32) 23 mmol/L (21-32) Anion Gap 14 (6-14) 8 (6-14) Blood Urea Nitrogen 65 mg/dL (8-26) 62 mg/dL (8-26) Creatinine 6.6 mg/dL (0.7-1.3) 6.5 mg/dL (0.7-1.3) Estimated GFR (Cockcroft-Gault) 10.7 10.9 BUN/Creatinine Ratio 10 (6-20) Glucose Level 142 mg/dL (70-99) 113 mg/dL (70-99) Calcium Level 9.2 mg/dL (8.5-10.1) 9.1 mg/dL (8.5-10.1) Phosphorus Level 5.1 mg/dL (2.6-4.7) Magnesium Level 2.3 mg/dL (1.8-2.4) Total Bilirubin 0.4 mg/dL (0.2-1.0) Aspartate Amino Transf (AST/SGOT) 17 U/L (15-37) Alanine Aminotransferase (ALT/SGPT) 11 U/L (16-63) Alkaline Phosphatase 65 U/L (46-116) Troponin I Quantitative < 0.017 ng/mL (0.000-0.055) 0.034 ng/mL (0.000-0.055) 0.019 ng/mL (0.000-0.055) AS-Vxp-W-Type Natriuretic Peptide 6710 pg/mL (0-124) Total Protein 8.3 g/dL (6.4-8.2) Albumin 2.4 g/dL (3.4-5.0) Albumin/Globulin Ratio 0.4 (1.0-1.7) White Blood Count 6.4 x10^3/uL (4.0-11.0) 5.6 x10^3/uL (4.0-11.0) Red Blood Count 2.37 x10^6/uL (4.30-5.70) 2.56 x10^6/uL (4.30-5.70) Hemoglobin 6.6 g/dL (13.0-17.5) 7.2 g/dL (13.0-17.5) Hematocrit 20.8 % (39.0-53.0) 22.6 % (39.0-53.0) Mean Corpuscular Volume 88 fL (79-100) 88 fL (79-100) Mean Corpuscular Hemoglobin 28 pg (25-35) 28 pg (25-35) Mean Corpuscular Hemoglobin Concent 32 g/dL (31-37) 32 g/dL (31-37) Red Cell Distribution Width 17.4 % (11.5-14.5) 17.2 % (11.5-14.5) Platelet Count 219 x10^3/uL (140-400) 207 x10^3/uL (140-400) Neutrophils (%) (Auto) 63 % (31-73) 60 % (31-73) Lymphocytes (%) (Auto) 18 % (24-48) 22 % (24-48) Monocytes (%) (Auto) 12 % (0-9) 10 % (0-9) Eosinophils (%) (Auto) 5 % (0-3) 5 % (0-3) Basophils (%) (Auto) 3 % (0-3) 3 % (0-3) Neutrophils # (Auto) 4.0 x10^3uL (1.8-7.7) 3.3 x10^3uL (1.8-7.7) Lymphocytes # (Auto) 1.1 x10^3/uL (1.0-4.8) 1.2 x10^3/uL (1.0-4.8) Monocytes # (Auto) 0.7 x10^3/uL (0.0-1.1) 0.6 x10^3/uL (0.0-1.1) Eosinophils # (Auto) 0.3 x10^3/uL (0.0-0.7) 0.3 x10^3/uL (0.0-0.7) Basophils # (Auto) 0.2 x10^3/uL (0.0-0.2) 0.2 x10^3/uL (0.0-0.2) Test 12/17/18 07:57 Glucose (Fingerstick) 114 mg/dL (70-99) Laboratory Tests Test 12/16/18 19:20 12/16/18 19:40 12/16/18 23:59 12/17/18 06:15 Sodium Level 132 mmol/L (136-145) 135 mmol/L (136-145) Potassium Level 4.4 mmol/L (3.5-5.1) 5.0 mmol/L (3.5-5.1) Chloride Level 100 mmol/L (98-107) 104 mmol/L (98-107) Carbon Dioxide Level 18 mmol/L (21-32) 23 mmol/L (21-32) Anion Gap 14 (6-14) 8 (6-14) Blood Urea Nitrogen 65 mg/dL (8-26) 62 mg/dL (8-26) Creatinine 6.6 mg/dL (0.7-1.3) 6.5 mg/dL (0.7-1.3) Estimated GFR (Cockcroft-Gault) 10.7 10.9 BUN/Creatinine Ratio 10 (6-20) Glucose Level 142 mg/dL (70-99) 113 mg/dL (70-99) Calcium Level 9.2 mg/dL (8.5-10.1) 9.1 mg/dL (8.5-10.1) Phosphorus Level 5.1 mg/dL (2.6-4.7) Magnesium Level 2.3 mg/dL (1.8-2.4) Total Bilirubin 0.4 mg/dL (0.2-1.0) Aspartate Amino Transf (AST/SGOT) 17 U/L (15-37) Alanine Aminotransferase (ALT/SGPT) 11 U/L (16-63) Alkaline Phosphatase 65 U/L (46-116) Troponin I Quantitative < 0.017 ng/mL (0.000-0.055) 0.034 ng/mL (0.000-0.055) 0.019 ng/mL (0.000-0.055) BF-Evu-R-Type Natriuretic Peptide 6710 pg/mL (0-124) Total Protein 8.3 g/dL (6.4-8.2) Albumin 2.4 g/dL (3.4-5.0) Albumin/Globulin Ratio 0.4 (1.0-1.7) White Blood Count 6.4 x10^3/uL (4.0-11.0) 5.6 x10^3/uL (4.0-11.0) Red Blood Count 2.37 x10^6/uL (4.30-5.70) 2.56 x10^6/uL (4.30-5.70) Hemoglobin 6.6 g/dL (13.0-17.5) 7.2 g/dL (13.0-17.5) Hematocrit 20.8 % (39.0-53.0) 22.6 % (39.0-53.0) Mean Corpuscular Volume 88 fL (79-100) 88 fL (79-100) Mean Corpuscular Hemoglobin 28 pg (25-35) 28 pg (25-35) Mean Corpuscular Hemoglobin Concent 32 g/dL (31-37) 32 g/dL (31-37) Red Cell Distribution Width 17.4 % (11.5-14.5) 17.2 % (11.5-14.5) Platelet Count 219 x10^3/uL (140-400) 207 x10^3/uL (140-400) Neutrophils (%) (Auto) 63 % (31-73) 60 % (31-73) Lymphocytes (%) (Auto) 18 % (24-48) 22 % (24-48) Monocytes (%) (Auto) 12 % (0-9) 10 % (0-9) Eosinophils (%) (Auto) 5 % (0-3) 5 % (0-3) Basophils (%) (Auto) 3 % (0-3) 3 % (0-3) Neutrophils # (Auto) 4.0 x10^3uL (1.8-7.7) 3.3 x10^3uL (1.8-7.7) Lymphocytes # (Auto) 1.1 x10^3/uL (1.0-4.8) 1.2 x10^3/uL (1.0-4.8) Monocytes # (Auto) 0.7 x10^3/uL (0.0-1.1) 0.6 x10^3/uL (0.0-1.1) Eosinophils # (Auto) 0.3 x10^3/uL (0.0-0.7) 0.3 x10^3/uL (0.0-0.7) Basophils # (Auto) 0.2 x10^3/uL (0.0-0.2) 0.2 x10^3/uL (0.0-0.2) Test 12/17/18 07:57 Glucose (Fingerstick) 114 mg/dL (70-99) Images: Images Single view of the chest is submitted. There is now a right upper extremity PICC, tip somewhat difficult to visualize, believed to be in the right atrium. There are again stents in the paramediastinal regions superiorly. Pericardial cardiac silhouette is again enlarged. There is no pneumothorax or significant pleural fluid. Impression: 1. There is now a right upper extremity PICC, tip apparently in the right atrium. Assessment/Plan Assessment/Plan Chest pain shortness of breath form overload severe noncompliance with dialysis and multiple wounds in a middle-age male who has numerous comorbidities Plan Transfuse 2 units packed red blood cells Consult cardiology Consult nephrology Dialysis Sunday Home meds Wound care nurse to evaluate and treat Wound VAC to the foot PT OT Full code DVT prophylaxis Trend hemoglobin Long-term prognosis guarded Total time 32 minutes VIC TIWARI III DO December 17, 2018 10:10
--- NOTE | 2018-12-17 11:02 | PDOC2 ---
CONSULT Date of Consult Date of Consult DATE: 12/17/18 TIME: 10:59 Reason for Consult Reason for Consult: ESRD Referring Physician Referring Physician: TE Identification/Chief Complaint Chief Complaint CHEST PAIN AND PICC LINE FELL OUT Source Source: Chart review, Patient History of Present Illness Reason for Visit: THIS IS A 53 YR OLD ESRD PT ON OP HD ON TTS. HE IS ADMITTED WITH CHEST PAIN. HE ALSO HAS A PICC LINE THAT FELL OUT. HE HAS A RLE WOUND FOR WHICH HE HAS BEEN GETTING ANTIBIOTICS. NOTED TO BE ANEMIC WITH HGB OF 6.5. STATES THAT HIS WOUND HAS BEEN OOZING. LABS ARE OTHERWISE C/W ESRD Past Medical History Cardiovascular: AFIB, CAD, CHF, HTN, [place], Hyperlipidemia, Other Pulmonary: COPD CENTRAL NERVOUS SYSTEM: Dementia, Periperal neuropathy, Seizure, TIA GI: Diverticulosis, Other Heme/Onc: Anemia NOS Hepatobiliary: No pertinent hx Psych: Anxiety, Depression Musculoskeletal: Osteoarthritis Rheumatologic: Rheumatoid arthritis Infectious disease: No pertinent hx Renal/: Chronic renal failure Endocrine: Diabetes, Hypothyroidism, Hyperparathyroidism Past Surgical History Past Surgical History: Cataract Removal, Total knee replacement, Other Family History Family History: Diabetes, Hypertension Social History Social History: Parent No ALCOHOL: none Drugs: None Lives: with Family Current Problem List Problem List Problems Medical Problems: (1) Chest pain Status: Acute (2) Symptomatic anemia Status: Acute Current Medications Current Medications Current Medications Aspirin (Children'S Aspirin) 324 mg 1X ONCE PO ; Start 12/16/18 at 18:45; Stop 12/16/18 at 18:46; Status DC Fentanyl Citrate (Fentanyl 2ml Vial) 25 mcg PRN Q15MIN PRN IV PAIN GREATER THAN 3/10; Start 12/16/18 at 18:45; Stop 12/17/18 at 18:44 Ondansetron HCl (Zofran) 4 mg 1X ONCE IV ; Start 12/16/18 at 18:45; Stop 12/16/18 at 18:46; Status DC Ondansetron HCl (Zofran) 4 mg PRN Q8HRS PRN IV NAUSEA/VOMITING; Start 12/16/18 at 20:30; Stop 12/17/18 at 20:29 Morphine Sulfate (Morphine Sulfate) 2 mg PRN Q2HR PRN IV PAIN Last administered on 12/17/18at 09:42; Start 12/16/18 at 20:30; Stop 12/17/18 at 20:29 Sodium Chloride 1,000 ml @ 1,000 mls/hr Q1H PRN IV hypotension; Start 12/17/18 at 09:03; Stop 12/17/18 at 15:02 Albumin Human 200 ml @ 200 mls/hr 1X PRN PRN IV Hypotension; Start 12/17/18 at 09:15; Stop 12/17/18 at 15:14 Diphenhydramine HCl (Benadryl) 25 mg 1X PRN PRN IV ITCHING; Start 12/17/18 at 09:15; Stop 12/18/18 at 09:14 Diphenhydramine HCl (Benadryl) 25 mg 1X PRN PRN IV ITCHING; Start 12/17/18 at 09:15; Stop 12/18/18 at 09:14 Sodium Chloride 1,000 ml @ 400 mls/hr Q2H30M PRN IV PATENCY; Start 12/17/18 at 09:03; Stop 12/17/18 at 21:02 Info (PHARMACY MONITORING -- do not chart) 1 each PRN DAILY PRN MC SEE COMMENTS; Start 12/17/18 at 09:15 Info (PHARMACY MONITORING -- do not chart) 1 each PRN DAILY PRN MC SEE COMMENTS; Start 12/17/18 at 09:15 Carvedilol (Coreg) 3.125 mg BIDWMEALS PO ; Start 12/17/18 at 09:00 Isosorbide Mononitrate (Imdur) 30 mg DAILY PO ; Start 12/17/18 at 10:00 Atorvastatin Calcium (Lipitor) 40 mg QHS PO ; Start 12/17/18 at 21:00 Labetalol HCl (Normodyne Iv Push) 20 mg PRN Q2HR PRN IVP HYPERTENSION, SEE COMMENTS; Start 12/17/18 at 09:30 Active Scripts Active Isosorbide Mononitrate Er (Isosorbide Mononitrate) 30 Mg Tab.er.24h 30 Mg PO DAILY 30 Days Aspirin 325 Mg Tablet 1 Tab PO DAILY Coreg (Carvedilol) 3.125 Mg Tablet 3.125 Mg PO BIDWMEALS Lipitor (Atorvastatin Calcium) 80 Mg Tablet 40 Mg PO HS Flovent 110MCG Hfa (Fluticasone Propionate) 12 Gm Aer.w.adap 2 Puff IH BID Zolpidem Tartrate 5 Mg Tablet 1 Tab PO QHS PRN Mirapex (Pramipexole Di-Hcl) 0.25 Mg Tablet 1 Tab PO DAILY Famotidine 20 Mg Tablet 20 Mg PO HS Ventolin Hfa Inhaler (Albuterol Sulfate) 18 Gm Hfa.aer.ad 1 Puff INH Q6HRS PRN Endocet 10-325 Mg Tablet (Oxycodone Hcl/Acetaminophen) 1 Each Tablet 1 Tab PO QID PRN Levothyroxine Sodium 175 Mcg Tablet 175 Mcg PO DAILYAC Plavix (Clopidogrel Bisulfate) 75 Mg Tablet 75 Mg PO DAILY Merrem (Meropenem) 500 Mg Vial 500 Mg IV DAILY Reported Tradjenta (Linagliptin) 5 Mg Tablet 5 Mg PO DAILY Diphenhydramine Hcl 50 Mg Capsule 1 Cap PO PRN Magnesium (Magnesium Oxide) 400 Mg Capsule 400 Mg PO DAILY Calcium Carbonate 500 Mg Tablet 500 Mg PO BID Keppra (Levetiracetam) 1,000 Mg Tablet 1 Tab PO BID Tylenol (Acetaminophen) 325 Mg Tablet 650 Mg PO PRN Q6HRS PRN Allergies Allergies: Coded Allergies: iodine (Verified Allergy, Severe, THROAT SWELLING, 09/24/18) lisinopril (Verified Allergy, Severe, 09/24/18) Fish Containing Products (Verified Allergy, Intermediate, 09/24/18) Penicillins (Verified Allergy, Intermediate, SEE COMMENT, 09/24/18) Tolerates meropenem and Cephalosporins piperacillin (Verified Allergy, Intermediate, Hives, 09/24/18) Tolerates meropenem tazobactam (Verified Allergy, Intermediate, 09/24/18) ROS General: YES: Fatigue, Malaise PSYCHOLOGICAL ROS: YES: Anxiety Eyes: Yes Decreased vision HEENT: YES: Heacaches Respiratory: YES: Cough Cardiovascular: yes Chest Pain Gastrointestinal: Yes Constipation Genitourinary: YES Other (ANURIA) Musculoskeletal: Yes Muscular Weakness Neurological: Yes Weakness Skin: Yes Dry Skin Physical Exam General: Alert, Oriented X3, Cooperative, No acute distress HEENT: Atraumatic, PERRLA, EOMI Lungs: Clear to auscultation, Normal air movement Heart: Regular rate, Normal S1, Normal S2 Abdomen: Normal bowel sounds, Soft, No tenderness Extremities: No clubbing Skin: No breakdown Neuro: Normal speech Psych/Mental Status: Mental status NL, Mood NL MUSCULOSKELETAL: No joint tenderness, No swelling Vitals VITALS Vital Signs Date Time Temp Pulse Resp B/P (MAP) Pulse Ox O2 Delivery O2 Flow Rate FiO2 12/17/18 10:44 98.3 79 16 154/72 98.3 12/17/18 10:27 97 Room Air Labs Labs Laboratory Tests Test 12/16/18 19:20 12/16/18 19:40 12/16/18 23:59 12/17/18 06:15 Sodium Level 132 mmol/L (136-145) 135 mmol/L (136-145) Potassium Level 4.4 mmol/L (3.5-5.1) 5.0 mmol/L (3.5-5.1) Chloride Level 100 mmol/L (98-107) 104 mmol/L (98-107) Carbon Dioxide Level 18 mmol/L (21-32) 23 mmol/L (21-32) Anion Gap 14 (6-14) 8 (6-14) Blood Urea Nitrogen 65 mg/dL (8-26) 62 mg/dL (8-26) Creatinine 6.6 mg/dL (0.7-1.3) 6.5 mg/dL (0.7-1.3) Estimated GFR (Cockcroft-Gault) 10.7 10.9 BUN/Creatinine Ratio 10 (6-20) Glucose Level 142 mg/dL (70-99) 113 mg/dL (70-99) Calcium Level 9.2 mg/dL (8.5-10.1) 9.1 mg/dL (8.5-10.1) Phosphorus Level 5.1 mg/dL (2.6-4.7) Magnesium Level 2.3 mg/dL (1.8-2.4) Total Bilirubin 0.4 mg/dL (0.2-1.0) Aspartate Amino Transf (AST/SGOT) 17 U/L (15-37) Alanine Aminotransferase (ALT/SGPT) 11 U/L (16-63) Alkaline Phosphatase 65 U/L (46-116) Troponin I Quantitative < 0.017 ng/mL (0.000-0.055) 0.034 ng/mL (0.000-0.055) 0.019 ng/mL (0.000-0.055) PT-Nel-X-Type Natriuretic Peptide 6710 pg/mL (0-124) Total Protein 8.3 g/dL (6.4-8.2) Albumin 2.4 g/dL (3.4-5.0) Albumin/Globulin Ratio 0.4 (1.0-1.7) White Blood Count 6.4 x10^3/uL (4.0-11.0) 5.6 x10^3/uL (4.0-11.0) Red Blood Count 2.37 x10^6/uL (4.30-5.70) 2.56 x10^6/uL (4.30-5.70) Hemoglobin 6.6 g/dL (13.0-17.5) 7.2 g/dL (13.0-17.5) Hematocrit 20.8 % (39.0-53.0) 22.6 % (39.0-53.0) Mean Corpuscular Volume 88 fL (79-100) 88 fL (79-100) Mean Corpuscular Hemoglobin 28 pg (25-35) 28 pg (25-35) Mean Corpuscular Hemoglobin Concent 32 g/dL (31-37) 32 g/dL (31-37) Red Cell Distribution Width 17.4 % (11.5-14.5) 17.2 % (11.5-14.5) Platelet Count 219 x10^3/uL (140-400) 207 x10^3/uL (140-400) Neutrophils (%) (Auto) 63 % (31-73) 60 % (31-73) Lymphocytes (%) (Auto) 18 % (24-48) 22 % (24-48) Monocytes (%) (Auto) 12 % (0-9) 10 % (0-9) Eosinophils (%) (Auto) 5 % (0-3) 5 % (0-3) Basophils (%) (Auto) 3 % (0-3) 3 % (0-3) Neutrophils # (Auto) 4.0 x10^3uL (1.8-7.7) 3.3 x10^3uL (1.8-7.7) Lymphocytes # (Auto) 1.1 x10^3/uL (1.0-4.8) 1.2 x10^3/uL (1.0-4.8) Monocytes # (Auto) 0.7 x10^3/uL (0.0-1.1) 0.6 x10^3/uL (0.0-1.1) Eosinophils # (Auto) 0.3 x10^3/uL (0.0-0.7) 0.3 x10^3/uL (0.0-0.7) Basophils # (Auto) 0.2 x10^3/uL (0.0-0.2) 0.2 x10^3/uL (0.0-0.2) Test 12/17/18 07:57 Glucose (Fingerstick) 114 mg/dL (70-99) Laboratory Tests Test 12/16/18 19:20 12/16/18 19:40 12/16/18 23:59 12/17/18 06:15 Sodium Level 132 mmol/L (136-145) 135 mmol/L (136-145) Potassium Level 4.4 mmol/L (3.5-5.1) 5.0 mmol/L (3.5-5.1) Chloride Level 100 mmol/L (98-107) 104 mmol/L (98-107) Carbon Dioxide Level 18 mmol/L (21-32) 23 mmol/L (21-32) Anion Gap 14 (6-14) 8 (6-14) Blood Urea Nitrogen 65 mg/dL (8-26) 62 mg/dL (8-26) Creatinine 6.6 mg/dL (0.7-1.3) 6.5 mg/dL (0.7-1.3) Estimated GFR (Cockcroft-Gault) 10.7 10.9 BUN/Creatinine Ratio 10 (6-20) Glucose Level 142 mg/dL (70-99) 113 mg/dL (70-99) Calcium Level 9.2 mg/dL (8.5-10.1) 9.1 mg/dL (8.5-10.1) Phosphorus Level 5.1 mg/dL (2.6-4.7) Magnesium Level 2.3 mg/dL (1.8-2.4) Total Bilirubin 0.4 mg/dL (0.2-1.0) Aspartate Amino Transf (AST/SGOT) 17 U/L (15-37) Alanine Aminotransferase (ALT/SGPT) 11 U/L (16-63) Alkaline Phosphatase 65 U/L (46-116) Troponin I Quantitative < 0.017 ng/mL (0.000-0.055) 0.034 ng/mL (0.000-0.055) 0.019 ng/mL (0.000-0.055) YE-Qbt-T-Type Natriuretic Peptide 6710 pg/mL (0-124) Total Protein 8.3 g/dL (6.4-8.2) Albumin 2.4 g/dL (3.4-5.0) Albumin/Globulin Ratio 0.4 (1.0-1.7) White Blood Count 6.4 x10^3/uL (4.0-11.0) 5.6 x10^3/uL (4.0-11.0) Red Blood Count 2.37 x10^6/uL (4.30-5.70) 2.56 x10^6/uL (4.30-5.70) Hemoglobin 6.6 g/dL (13.0-17.5) 7.2 g/dL (13.0-17.5) Hematocrit 20.8 % (39.0-53.0) 22.6 % (39.0-53.0) Mean Corpuscular Volume 88 fL (79-100) 88 fL (79-100) Mean Corpuscular Hemoglobin 28 pg (25-35) 28 pg (25-35) Mean Corpuscular Hemoglobin Concent 32 g/dL (31-37) 32 g/dL (31-37) Red Cell Distribution Width 17.4 % (11.5-14.5) 17.2 % (11.5-14.5) Platelet Count 219 x10^3/uL (140-400) 207 x10^3/uL (140-400) Neutrophils (%) (Auto) 63 % (31-73) 60 % (31-73) Lymphocytes (%) (Auto) 18 % (24-48) 22 % (24-48) Monocytes (%) (Auto) 12 % (0-9) 10 % (0-9) Eosinophils (%) (Auto) 5 % (0-3) 5 % (0-3) Basophils (%) (Auto) 3 % (0-3) 3 % (0-3) Neutrophils # (Auto) 4.0 x10^3uL (1.8-7.7) 3.3 x10^3uL (1.8-7.7) Lymphocytes # (Auto) 1.1 x10^3/uL (1.0-4.8) 1.2 x10^3/uL (1.0-4.8) Monocytes # (Auto) 0.7 x10^3/uL (0.0-1.1) 0.6 x10^3/uL (0.0-1.1) Eosinophils # (Auto) 0.3 x10^3/uL (0.0-0.7) 0.3 x10^3/uL (0.0-0.7) Basophils # (Auto) 0.2 x10^3/uL (0.0-0.2) 0.2 x10^3/uL (0.0-0.2) Test 12/17/18 07:57 Glucose (Fingerstick) 114 mg/dL (70-99) Assessment/Plan Assessment/Plan IMP ANEMIA ESRD DM II HTN RLE WOUND CHEST PAIN PLAN PRBC ARANESP CARDIOLOGY EVALUATION HD TODAY UF TO DW GRACE VILLEDA MD December 17, 2018 11:02
[2018-12-17] MEDS: CARVEDILOL 3.125 MG TABLET. PO SCH ×2 (13:18→18:27)
[2018-12-17] MEDS: ISOSORBIDE MONONITRATE ER 30 MG TAB.ER.24H PO SCH (13:18)
--- NOTE | 2018-12-17 16:24 | NUR ---
Wound Care Pt seen for wound care consultation, known to WC from clinic and previous admissions. R TMA site home wound vac removed, wound cleaned, measured and photographed. Wound bed is relatively clean, with minimal slough, red granulation tissue and edges slightly rolled. Vac canister with moderate amount of serosanguinous drainage, but no active bleeding is noted at the wound site. Vac reapplied to R TMA using 2 pieces of cash foam, ostomy ring to periwound, vac showing strong seal at -125 mmHg continuous suction, pt tolerated well. Will follow up on Sunday for next vac change, or sooner if pt d/c's home. Pt has his own home vac in room at bedside.
[2018-12-17] MEDS ORDERED: ATORVASTATIN CALCIUM 40 MG TABLET. PO SCH (21:00)
[2018-12-17] MEDS ORDERED: DARBEPOETIN ALFA 60 MCG/0.3 ML DISP.SYRIN. SQ SCH (21:00)
[2018-12-18 03:20] VITALS: BP 158/73
[2018-12-18] MEDS: MORPHINE SULFATE 2 MG/ML VIAL. IV PRN ×2 (03:49→11:18)
[2018-12-18 06:28] LABS: HEMATOCRIT 25.3 % (39.0-53.0); HEMOGLOBIN 8.2 g/dL (13.0-17.5); RED BLOOD COUNT 2.89 x10^6/uL (4.30-5.70); RED CELL DISTRIBUTION WIDTH 16.7 % (11.5-14.5); WHITE BLOOD COUNT 5.4 x10^3/uL (4.0-11.0)
[2018-12-18 06:42] LABS: CALCIUM 8.9 mg/dL (8.5-10.1); CREATININE 4.8 mg/dL (0.7-1.3); GFR 15.5; POTASSIUM 4.2 mmol/L (3.5-5.1)
[2018-12-18 07:00] VITALS: BP 144/67
[2018-12-18] MEDS ORDERED: MERO500V15 IV (07:05)
[2018-12-18] MEDS: ISOSORBIDE MONONITRATE ER 30 MG TAB.ER.24H PO SCH (08:54)
[2018-12-18] MEDS: CARVEDILOL 3.125 MG TABLET. PO SCH (08:55)
--- NOTE | 2018-12-18 10:25 | PDOC ---
Renal-Progress Notes Subjective Notes Notes NO NEW COMPLAINTS History of Present Illness Hx of present illness STABLE Vitals Vitals Vital Signs Date Time Temp Pulse Resp B/P (MAP) Pulse Ox O2 Delivery O2 Flow Rate FiO2 12/18/18 08:55 79 144/67 12/18/18 08:00 Room Air 12/18/18 07:00 98.5 20 98 98.5 Weight Weight [ ] I.O. Intake and Output Intake and Output 12/18/18 06:59 Intake Total 1660 ml Output Total 650 ml Balance 1010 ml Intake Oral 1300 ml Blood Product IV Normal Saline Flush 360 ml Output Urine Total 650 ml Labs Labs Laboratory Tests Test 12/17/18 14:05 12/17/18 16:42 12/17/18 20:41 12/18/18 06:00 Glucose (Fingerstick) 157 mg/dL (70-99) 204 mg/dL (70-99) 162 mg/dL (70-99) White Blood Count 5.4 x10^3/uL (4.0-11.0) Red Blood Count 2.89 x10^6/uL (4.30-5.70) Hemoglobin 8.2 g/dL (13.0-17.5) Hematocrit 25.3 % (39.0-53.0) Mean Corpuscular Volume 87 fL (79-100) Mean Corpuscular Hemoglobin 28 pg (25-35) Mean Corpuscular Hemoglobin Concent 33 g/dL (31-37) Red Cell Distribution Width 16.7 % (11.5-14.5) Platelet Count 184 x10^3/uL (140-400) Sodium Level 135 mmol/L (136-145) Potassium Level 4.2 mmol/L (3.5-5.1) Chloride Level 98 mmol/L (98-107) Carbon Dioxide Level 30 mmol/L (21-32) Anion Gap 7 (6-14) Blood Urea Nitrogen 41 mg/dL (8-26) Creatinine 4.8 mg/dL (0.7-1.3) Estimated GFR (Cockcroft-Gault) 15.5 Glucose Level 122 mg/dL (70-99) Calcium Level 8.9 mg/dL (8.5-10.1) Test 12/18/18 07:35 Glucose (Fingerstick) 110 mg/dL (70-99) Physical Exam Musculoskeletal: Osteoarthritis Assessment Assessment IMP ANEMIA ESRD DM II HTN RLE WOUND CHEST PAIN PLAN [facility] CARDIOLOGY EVALUATION HD TTS GRACE VILLEDA MD December 18, 2018 10:25
[2018-12-18 11:00] VITALS: BP 163/75
--- NOTE | 2018-12-18 11:29 | NUR ---
SS following up with discharge planning. SS was notified that pt is missing dialysis appointments. SS contact [facility] in [place] and spoke with Marielena to discuss pt's compliance with dialysis and transportation. Juliantommy reported that transportation is scheduled for pt for every dialysis appointment but in the month of November pt only attended dialysis three times. She reported that pt and spouse often call and cancel pt's transportation and appt listing several different excuses as to why they cannot come. She also reported that often times transportation will come to the house and call and knock on the door and no one will answer. She stated that they will continue to provide transportation but pt and spouse need to make more of an effort to answer the door and not call to cancel his dialysis for the day. Pt's RN notified. SS will continue to follow for discharge planning.
[2018-12-18] MEDS ORDERED: ASPIRIN CHEWABLE 81 MG TABLET. PO SCH (12:00)
[2018-12-18] MEDS ORDERED: MEROPENEM 500 MG in IV NORMAL SALINE 50ML 50 ML IV SCH (12:00)
--- NOTE | 2018-12-18 13:05 | NUR ---
SS following up with discharge planning. SS received notification that pt was discharging to home and needed transportation. Transportation arranged through [employer]. Pt will discharge today and return to home at 1530. Pt, pt's spouse, and pt's RN notified.
--- NOTE | 2018-12-18 13:11 | SNU/HH DC ---
DISCHARGE WITH HOME HEALTH DISCHARGE INFORMATION: Final Diagnosis: Problems Medical Problems: (1) Chest pain Status: Acute (2) Symptomatic anemia Status: Acute Condition on Discharge: Stable CODE STATUS: Code Status: Full HOME HEALTH: Face to Face: I certify this patient is under my care and that I, or a nurse practitioner or physician's physician assistant psychiatry working with me, had a face to face encounter that meets the physician face to face encounter requirements with this patient on []. Medical Complications: Other (esrd) RN For Eval/Treatment: Yes Physical Therapy For: Evalulation/Treatment Home Health Aide For: Self-care IT SOFTWARE ENGINEER For: Community [employer] Pt Meets Homebound Status: Unsteady balance w/ amb, POST DISCHARGE ORDERS: Activity Instructions for Disc: Activity as tolerated Weight Bearing Status after Di: As tolerated Bathing Instructions: Shower-keep dressing dry DIET AFTER DISCHARGE: Renal Wound/Incision Care: Change dressing CHECKS AFTER DISCHARGE: Checks after discharge: Check blood sugar, ac/hs, Weigh Yourself Daily FOLLOW-UP: DC TO SNF LABS: [facility] 5 weeks, f/u Dr. Mcclure, will need labs TREATMENT/EQUIPMENT ORDERS: Adaptive Equipment Issued: Walker, Wheelchair CERTIFICATION STATEMENT: Certification Statement: Certification Statement: Based on the above finding, I certify that this patient is confined to the home and needs intermittent mcfp care, physical therapy and/or speech therapy, or continues to need occupational therapy.~ This patient is under my care, and I have initiated the establishment of the plan of care.~ This patient will be followed by myself or a community physician who will periodically review the plan of care. Home Meds Active Scripts Isosorbide Mononitrate (ISOSORBIDE MONONITRATE ER) 30 Mg Tab.er.24h, 30 MG PO DAILY for angina for 30 Days, #30 TAB.SR 3 Refills Prov:SUGAR BEAL MD 12/03/18 Aspirin (ASPIRIN) 325 Mg Tablet, 1 TAB PO DAILY for heart health , #30 TAB 4 Refills Prov:SUGAR BEAL MD 12/03/18 Carvedilol (COREG ) 3.125 Mg Tablet, 3.125 MG PO BIDWMEALS for heart failure, #60 TAB 4 Refills Prov:SUGAR BEAL MD 12/03/18 Atorvastatin Calcium (LIPITOR) 80 Mg Tablet, 40 MG PO HS for FOR CHOLESTEROL, #30 TAB 3 Refills Prov:SUGAR BEAL MD 12/03/18 Fluticasone Propionate (FLOVENT 110MCG HFA) 12 Gm Aer.w.adap, 2 PUFF IH BID for asthma, #1 INHALER 3 Refills Prov:SUGAR BEAL MD 12/03/18 Zolpidem Tartrate (ZOLPIDEM TARTRATE) 5 Mg Tablet, 1 TAB PO QHS PRN for sleep, #30 TAB 1 Refill Prov:SUGAR BEAL MD 12/03/18 Pramipexole Di-Hcl (MIRAPEX) 0.25 Mg Tablet, 1 TAB PO DAILY for restless leg, #30 TAB 4 Refills Prov:SUGAR BEAL MD 12/03/18 Famotidine (FAMOTIDINE) 20 Mg Tablet, 20 MG PO HS for GERD, #30 TAB 3 Refills Prov:SUGAR BEAL MD 12/03/18 Albuterol Sulfate (VENTOLIN HFA INHALER) 18 Gm Hfa.aer.ad, 1 PUFF INH Q6HRS PRN for SHORTNESS OF BREATH, #1 INHALER 0 Refills Prov:SUGAR BEAL MD 12/03/18 Oxycodone Hcl/Acetaminophen (ENDOCET 10-325 MG TABLET) 1 Each Tablet, 1 TAB PO QID PRN for PAIN, #50 TAB Prov:SUGAR BEAL MD 12/03/18 Levothyroxine Sodium (LEVOTHYROXINE SODIUM) 175 Mcg Tablet, 175 MCG PO DAILYAC for THYROID SUPPLEMENT, #30 TAB 4 Refills Prov:SUGAR BEAL MD 12/03/18 Clopidogrel Bisulfate (PLAVIX) 75 Mg Tablet, 75 MG PO DAILY for TO PREVENT BLOOD CLOTS, #30 TAB 4 Refills Prov:SUGAR BEAL MD 12/03/18 Meropenem (MERREM) 500 Mg Vial, 500 MG IV DAILY for foot infection, #35 EACH Prov:SUGAR BEAL MD 12/03/18 Reported Medications Meropenem (MEROPENEM) 500 Mg Vial, 500 MG IV DAILY for R foot wound, EACH 12/18/18 Linagliptin (TRADJENTA) 5 Mg Tablet, 5 MG PO DAILY for TYPE 2 DIABETES, TAB 12/16/18 Diphenhydramine Hcl (DIPHENHYDRAMINE HCL) 50 Mg Capsule, 1 CAP PO PRN for itching, #30 CAP 1 Refill 12/16/18 Magnesium Oxide (MAGNESIUM) 400 Mg Capsule, 400 MG PO DAILY for supplement, CAP 06/28/18 Calcium Carbonate (CALCIUM CARBONATE) 500 Mg Tablet, 500 MG PO BID for supplement, TAB 06/28/18 Levetiracetam (KEPPRA) 1,000 Mg Tablet, 1 TAB PO BID, #60 TAB 5 Refills 04/14/18 Acetaminophen (TYLENOL) 325 Mg Tablet, 650 MG PO PRN Q6HRS PRN for FEVER, TAB 07/31/17 VIC TIWARI III DO December 18, 2018 13:11
[2018-12-18] MEDS ORDERED: ASPI-630 PO (13:16)
[2018-12-18] MEDS ORDERED: HYDR-2759 PO (13:20)
--- NOTE | 2018-12-18 13:43 | NUR ---
SS following up with discharge planning. SS received discharge orders for home healthcare. Pt was previously on services with [facility]. SS contacted pt's spouse to verify choice of home healthcare. Pt's spouse verified that they would like to continue using [facility]. SS phoned and faxed discharge orders and referral to [facility], ; fax [phone].
--- NOTE | 2018-12-18 13:53 | PDOC3 ---
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 Aquiles Goel is a middle-aged -[place] male well known to our service. He continues to be noncompliant with his dialysis He states that he can't get a ride On this admission he came in weak and short of breath was noted to have a hemoglobin of 6.6 We transfused him and got dialyzed several times His symptoms up to 8.2 He is at his baseline he looks great he wants to go home I saw him and examining this morning His heart tones are normal his lungs are clear his abdomen is soft and he has a good appetite we plan to discharge Disposition: Disposition/Orders: D/C to Home Activity: Activity: Resume previous activity Diet: Diet: Renal Medications: Home Meds Active Scripts Isosorbide Mononitrate (ISOSORBIDE MONONITRATE ER) 30 Mg Tab.er.24h, 30 MG PO DAILY for angina for 30 Days, #30 TAB.SR 3 Refills Prov:SUGAR BEAL MD 12/03/18 Carvedilol (COREG ) 3.125 Mg Tablet, 3.125 MG PO BIDWMEALS for heart failure, #60 TAB 4 Refills Prov:SUGAR BEAL MD 12/03/18 Atorvastatin Calcium (LIPITOR) 80 Mg Tablet, 40 MG PO HS for FOR CHOLESTEROL, #30 TAB 3 Refills Prov:SUGAR BEAL MD 12/03/18 Fluticasone Propionate (FLOVENT 110MCG HFA) 12 Gm Aer.w.adap, 2 PUFF IH BID for asthma, #1 INHALER 3 Refills Prov:SUGAR BEAL MD 12/03/18 Zolpidem Tartrate (ZOLPIDEM TARTRATE) 5 Mg Tablet, 1 TAB PO QHS PRN for sleep, #30 TAB 1 Refill Prov:SUGAR BEAL MD 12/03/18 Pramipexole Di-Hcl (MIRAPEX) 0.25 Mg Tablet, 1 TAB PO DAILY for restless leg, #30 TAB 4 Refills Prov:SUGAR BEAL MD 12/03/18 Famotidine (FAMOTIDINE) 20 Mg Tablet, 20 MG PO HS for GERD, #30 TAB 3 Refills Prov:SUGAR BEAL MD 12/03/18 Albuterol Sulfate (VENTOLIN HFA INHALER) 18 Gm Hfa.aer.ad, 1 PUFF INH Q6HRS PRN for SHORTNESS OF BREATH, #1 INHALER 0 Refills Prov:SUGAR BEAL MD 12/03/18 Oxycodone Hcl/Acetaminophen (ENDOCET 10-325 MG TABLET) 1 Each Tablet, 1 TAB PO QID PRN for PAIN, #50 TAB Prov:SUGAR BEAL MD 12/03/18 Levothyroxine Sodium (LEVOTHYROXINE SODIUM) 175 Mcg Tablet, 175 MCG PO DAILYAC for THYROID SUPPLEMENT, #30 TAB 4 Refills Prov:SUGAR BEAL MD 12/03/18 Meropenem (MERREM) 500 Mg Vial, 500 MG IV DAILY for foot infection, #35 EACH Prov:SUGAR BAEL MD 12/03/18 Reported Medications Hydrocodone/Acetaminophen (Hydrocodone-Acetamin 5-325 mg) 1 Each Tablet, 1 EACH PO PRN Q6HRS PRN for PAIN, #30 TAB 0 Refills 12/18/18 Aspirin (ASPIRIN) 81 Mg Tab.chew, 1 TAB PO DAILY for CAD, #30 TAB 3 Refills 12/18/18 Linagliptin (TRADJENTA) 5 Mg Tablet, 5 MG PO DAILY for TYPE 2 DIABETES, TAB 12/16/18 Diphenhydramine Hcl (DIPHENHYDRAMINE HCL) 50 Mg Capsule, 1 CAP PO PRN for itching, #30 CAP 1 Refill 12/16/18 Magnesium Oxide (MAGNESIUM) 400 Mg Capsule, 400 MG PO DAILY for supplement, CAP 06/28/18 Calcium Carbonate (CALCIUM CARBONATE) 500 Mg Tablet, 500 MG PO BID for supplement, TAB 06/28/18 Levetiracetam (KEPPRA) 1,000 Mg Tablet, 1 TAB PO BID, #60 TAB 5 Refills 04/14/18 Acetaminophen (TYLENOL) 325 Mg Tablet, 650 MG PO PRN Q6HRS PRN for FEVER, TAB 07/31/17 Scheduled Aspirin (Aspirin), 1 TAB PO DAILY, (Reported) Atorvastatin Calcium (Lipitor), 40 MG PO HS Calcium Carbonate (Calcium Carbonate), 500 MG PO BID, (Reported) Carvedilol (Coreg ), 3.125 MG PO BIDWMEALS Diphenhydramine Hcl (Diphenhydramine Hcl), 1 CAP PO PRN, (Reported) Famotidine (Famotidine), 20 MG PO HS Fluticasone Propionate (Flovent 110MCG Hfa), 2 PUFF IH BID Isosorbide Mononitrate (Isosorbide Mononitrate Er), 30 MG PO DAILY Levetiracetam (Keppra), 1 TAB PO BID, (Reported) Levothyroxine Sodium (Levothyroxine Sodium), 175 MCG PO DAILYAC Linagliptin (Tradjenta), 5 MG PO DAILY, (Reported) Magnesium Oxide (Magnesium), 400 MG PO DAILY, (Reported) Meropenem (Merrem), 500 MG IV DAILY Pramipexole Di-Hcl (Mirapex), 1 TAB PO DAILY Scheduled PRN Acetaminophen (Tylenol), 650 MG PO PRN Q6HRS PRN for FEVER, (Reported) Albuterol Sulfate (Ventolin Hfa Inhaler), 1 PUFF INH Q6HRS PRN for SHORTNESS OF BREATH Hydrocodone/Acetaminophen (Hydrocodone-Acetamin 5-325 mg), 1 EACH PO PRN Q6HRS PRN for PAIN, (Reported) Oxycodone Hcl/Acetaminophen (Endocet 10-325 Mg Tablet), 1 TAB PO QID PRN for PAIN Zolpidem Tartrate (Zolpidem Tartrate), 1 TAB PO QHS PRN for sleep Total Time: Total Time: 32 minutes VIC TIWARI III DO December 18, 2018 13:53
--- NOTE | 2018-12-18 13:57 | PDOC ---
[employer] PROGRESS NOTE Chief Complaint Chief Complaint CKD- with missed at least 2 weeks of dialysis COPD AFIB, CAD, CHF, HTN, prior SC, Hyperlipidemia, PAD Dementia, Peripheral neuropathy, Seizure, prior TIA Diverticulosis, prior pancreatitis Anemia Osteoarthritis Diabetes (2), Hypothyroidism History of Present Illness History of Present Illness Patient seen and examined Discussed with nurse Inspection of R TMA, L BKA, and L arm shunt Wound vac on R foot examined Vitals Vitals Vital Signs Date Time Temp Pulse Resp B/P (MAP) Pulse Ox O2 Delivery O2 Flow Rate FiO2 12/18/18 12:03 100 Room Air 12/18/18 11:00 97.9 87 20 163/75 (104) 97.9 Physical Exam General: Alert, Oriented X3, Cooperative, No acute distress Heart: Regular rate, Normal S1, Normal S2, Other Lungs: Clear Abdomen: Soft, No tenderness, Other Extremities: No cyanosis Skin: No rashes, No breakdown, Other Labs LABS Laboratory Tests Test 12/17/18 14:05 12/17/18 16:42 12/17/18 20:41 12/18/18 06:00 Glucose (Fingerstick) 157 mg/dL (70-99) 204 mg/dL (70-99) 162 mg/dL (70-99) White Blood Count 5.4 x10^3/uL (4.0-11.0) Red Blood Count 2.89 x10^6/uL (4.30-5.70) Hemoglobin 8.2 g/dL (13.0-17.5) Hematocrit 25.3 % (39.0-53.0) Mean Corpuscular Volume 87 fL (79-100) Mean Corpuscular Hemoglobin 28 pg (25-35) Mean Corpuscular Hemoglobin Concent 33 g/dL (31-37) Red Cell Distribution Width 16.7 % (11.5-14.5) Platelet Count 184 x10^3/uL (140-400) Sodium Level 135 mmol/L (136-145) Potassium Level 4.2 mmol/L (3.5-5.1) Chloride Level 98 mmol/L (98-107) Carbon Dioxide Level 30 mmol/L (21-32) Anion Gap 7 (6-14) Blood Urea Nitrogen 41 mg/dL (8-26) Creatinine 4.8 mg/dL (0.7-1.3) Estimated GFR (Cockcroft-Gault) 15.5 Glucose Level 122 mg/dL (70-99) Calcium Level 8.9 mg/dL (8.5-10.1) Test 12/18/18 07:35 12/18/18 11:52 Glucose (Fingerstick) 110 mg/dL (70-99) 152 mg/dL (70-99) Review of Systems Review of Systems Patient denies blurry vision Patient denies BUNCH Assessment and Plan Assessmemt and Plan Problems Medical Problems: (1) Chest pain Status: Acute (2) Symptomatic anemia Status: Acute Assessment: CKD- with missed dialysis for at least 2 weeks COPD AFIB, CAD, CHF, HTN, prior SC, Hyperlipidemia, PAD Dementia, Peripheral neuropathy, Seizure, prior TIA Diverticulosis, prior pancreatitis Anemia Osteoarthritis Diabetes (2), Hypothyroidism Plan: Cardiac monitoring HD T,TH,Sat IV Meropenum Home meds Aspirin Wound vac- PT/OT DVT ppx Probable discharge home today Cardio and Nephro following Comment Review of Relevant I have reviewed the following items lila (where applicable) has been applied. Labs Laboratory Tests Test 12/16/18 19:20 12/16/18 19:40 12/16/18 23:59 12/17/18 06:15 Sodium Level 132 mmol/L (136-145) 135 mmol/L (136-145) Potassium Level 4.4 mmol/L (3.5-5.1) 5.0 mmol/L (3.5-5.1) Chloride Level 100 mmol/L (98-107) 104 mmol/L (98-107) Carbon Dioxide Level 18 mmol/L (21-32) 23 mmol/L (21-32) Anion Gap 14 (6-14) 8 (6-14) Blood Urea Nitrogen 65 mg/dL (8-26) 62 mg/dL (8-26) Creatinine 6.6 mg/dL (0.7-1.3) 6.5 mg/dL (0.7-1.3) Estimated GFR (Cockcroft-Gault) 10.7 10.9 BUN/Creatinine Ratio 10 (6-20) Glucose Level 142 mg/dL (70-99) 113 mg/dL (70-99) Calcium Level 9.2 mg/dL (8.5-10.1) 9.1 mg/dL (8.5-10.1) Phosphorus Level 5.1 mg/dL (2.6-4.7) Magnesium Level 2.3 mg/dL (1.8-2.4) Total Bilirubin 0.4 mg/dL (0.2-1.0) Aspartate Amino Transf (AST/SGOT) 17 U/L (15-37) Alanine Aminotransferase (ALT/SGPT) 11 U/L (16-63) Alkaline Phosphatase 65 U/L (46-116) Troponin I Quantitative < 0.017 ng/mL (0.000-0.055) 0.034 ng/mL (0.000-0.055) 0.019 ng/mL (0.000-0.055) XD-Lyd-N-Type Natriuretic Peptide 6710 pg/mL (0-124) Total Protein 8.3 g/dL (6.4-8.2) Albumin 2.4 g/dL (3.4-5.0) Albumin/Globulin Ratio 0.4 (1.0-1.7) White Blood Count 6.4 x10^3/uL (4.0-11.0) 5.6 x10^3/uL (4.0-11.0) Red Blood Count 2.37 x10^6/uL (4.30-5.70) 2.56 x10^6/uL (4.30-5.70) Hemoglobin 6.6 g/dL (13.0-17.5) 7.2 g/dL (13.0-17.5) Hematocrit 20.8 % (39.0-53.0) 22.6 % (39.0-53.0) Mean Corpuscular Volume 88 fL (79-100) 88 fL (79-100) Mean Corpuscular Hemoglobin 28 pg (25-35) 28 pg (25-35) Mean Corpuscular Hemoglobin Concent 32 g/dL (31-37) 32 g/dL (31-37) Red Cell Distribution Width 17.4 % (11.5-14.5) 17.2 % (11.5-14.5) Platelet Count 219 x10^3/uL (140-400) 207 x10^3/uL (140-400) Neutrophils (%) (Auto) 63 % (31-73) 60 % (31-73) Lymphocytes (%) (Auto) 18 % (24-48) 22 % (24-48) Monocytes (%) (Auto) 12 % (0-9) 10 % (0-9) Eosinophils (%) (Auto) 5 % (0-3) 5 % (0-3) Basophils (%) (Auto) 3 % (0-3) 3 % (0-3) Neutrophils # (Auto) 4.0 x10^3uL (1.8-7.7) 3.3 x10^3uL (1.8-7.7) Lymphocytes # (Auto) 1.1 x10^3/uL (1.0-4.8) 1.2 x10^3/uL (1.0-4.8) Monocytes # (Auto) 0.7 x10^3/uL (0.0-1.1) 0.6 x10^3/uL (0.0-1.1) Eosinophils # (Auto) 0.3 x10^3/uL (0.0-0.7) 0.3 x10^3/uL (0.0-0.7) Basophils # (Auto) 0.2 x10^3/uL (0.0-0.2) 0.2 x10^3/uL (0.0-0.2) Test 12/17/18 07:57 12/17/18 14:05 12/17/18 16:42 12/17/18 20:41 Glucose (Fingerstick) 114 mg/dL (70-99) 157 mg/dL (70-99) 204 mg/dL (70-99) 162 mg/dL (70-99) Test 12/18/18 06:00 12/18/18 07:35 12/18/18 11:52 White Blood Count 5.4 x10^3/uL (4.0-11.0) Red Blood Count 2.89 x10^6/uL (4.30-5.70) Hemoglobin 8.2 g/dL (13.0-17.5) Hematocrit 25.3 % (39.0-53.0) Mean Corpuscular Volume 87 fL (79-100) Mean Corpuscular Hemoglobin 28 pg (25-35) Mean Corpuscular Hemoglobin Concent 33 g/dL (31-37) Red Cell Distribution Width 16.7 % (11.5-14.5) Platelet Count 184 x10^3/uL (140-400) Sodium Level 135 mmol/L (136-145) Potassium Level 4.2 mmol/L (3.5-5.1) Chloride Level 98 mmol/L (98-107) Carbon Dioxide Level 30 mmol/L (21-32) Anion Gap 7 (6-14) Blood Urea Nitrogen 41 mg/dL (8-26) Creatinine 4.8 mg/dL (0.7-1.3) Estimated GFR (Cockcroft-Gault) 15.5 Glucose Level 122 mg/dL (70-99) Calcium Level 8.9 mg/dL (8.5-10.1) Glucose (Fingerstick) 110 mg/dL (70-99) 152 mg/dL (70-99) Laboratory Tests Test 12/17/18 14:05 12/17/18 16:42 12/17/18 20:41 12/18/18 06:00 Glucose (Fingerstick) 157 mg/dL (70-99) 204 mg/dL (70-99) 162 mg/dL (70-99) White Blood Count 5.4 x10^3/uL (4.0-11.0) Red Blood Count 2.89 x10^6/uL (4.30-5.70) Hemoglobin 8.2 g/dL (13.0-17.5) Hematocrit 25.3 % (39.0-53.0) Mean Corpuscular Volume 87 fL (79-100) Mean Corpuscular Hemoglobin 28 pg (25-35) Mean Corpuscular Hemoglobin Concent 33 g/dL (31-37) Red Cell Distribution Width 16.7 % (11.5-14.5) Platelet Count 184 x10^3/uL (140-400) Sodium Level 135 mmol/L (136-145) Potassium Level 4.2 mmol/L (3.5-5.1) Chloride Level 98 mmol/L (98-107) Carbon Dioxide Level 30 mmol/L (21-32) Anion Gap 7 (6-14) Blood Urea Nitrogen 41 mg/dL (8-26) Creatinine 4.8 mg/dL (0.7-1.3) Estimated GFR (Cockcroft-Gault) 15.5 Glucose Level 122 mg/dL (70-99) Calcium Level 8.9 mg/dL (8.5-10.1) Test 12/18/18 07:35 12/18/18 11:52 Glucose (Fingerstick) 110 mg/dL (70-99) 152 mg/dL (70-99) Medications Current Medications Aspirin (Children'S Aspirin) 324 mg 1X ONCE PO ; Start 12/16/18 at 18:45; Stop 12/16/18 at 18:46; Status DC Fentanyl Citrate (Fentanyl 2ml Vial) 25 mcg PRN Q15MIN PRN IV PAIN GREATER THAN 3/10; Start 12/16/18 at 18:45; Stop 12/17/18 at 18:44; Status DC Ondansetron HCl (Zofran) 4 mg 1X ONCE IV ; Start 12/16/18 at 18:45; Stop 12/16/18 at 18:46; Status DC Ondansetron HCl (Zofran) 4 mg PRN Q8HRS PRN IV NAUSEA/VOMITING; Start 12/16/18 at 20:30; Stop 12/17/18 at 20:29; Status DC Morphine Sulfate (Morphine Sulfate) 2 mg PRN Q2HR PRN IV PAIN Last administered on 12/17/18at 16:42; Start 12/16/18 at 20:30; Stop 12/17/18 at 20:29; Status DC Sodium Chloride 1,000 ml @ 1,000 mls/hr Q1H PRN IV hypotension; Start 12/17/18 at 09:03; Stop 12/17/18 at 15:02; Status DC Albumin Human 200 ml @ 200 mls/hr 1X PRN PRN IV Hypotension; Start 12/17/18 at 09:15; Stop 12/17/18 at 15:14; Status DC Diphenhydramine HCl (Benadryl) 25 mg 1X PRN PRN IV ITCHING; Start 12/17/18 at 09:15; Stop 12/18/18 at 09:14; Status DC Diphenhydramine HCl (Benadryl) 25 mg 1X PRN PRN IV ITCHING; Start 12/17/18 at 09:15; Stop 12/18/18 at 09:14; Status DC Sodium Chloride 1,000 ml @ 400 mls/hr Q2H30M PRN IV PATENCY; Start 12/17/18 at 09:03; Stop 12/17/18 at 21:02; Status DC Info (PHARMACY MONITORING -- do not chart) 1 each PRN DAILY PRN MC SEE COMMENTS; Start 12/17/18 at 09:15 Info (PHARMACY MONITORING -- do not chart) 1 each PRN DAILY PRN MC SEE COMMENTS; Start 12/17/18 at 09:15; Stop 12/17/18 at 15:21; Status DC Carvedilol (Coreg) 3.125 mg BIDWMEALS PO Last administered on 12/18/18 08:55; Start 12/17/18 at 09:00 Isosorbide Mononitrate (Imdur) 30 mg DAILY PO Last administered on 12/18/18at 08:54; Start 12/17/18 at 10:00 Atorvastatin Calcium (Lipitor) 40 mg QHS PO Last administered on 12/17/18at 21:04; Start 12/17/18 at 21:00 Labetalol HCl (Normodyne Iv Push) 20 mg PRN Q2HR PRN IVP HYPERTENSION, SEE COMMENTS; Start 12/17/18 at 09:30 Darbepoetin Jace (Aranesp) 60 mcg WEEKLYHS SQ Last administered on 12/17/18at 21:04; Start 12/17/18 at 21:00 Morphine Sulfate (Morphine Sulfate) 2 mg PRN Q2HR PRN IV PAIN Last administered on 12/18/18at 11:18; Start 12/18/18 at 03:45 Non-Formulary Medication (Meropenem (Merrem)) 500 mg DAILY IV ; Start 12/19/18 at 09:00; Status UNV Aspirin (Children'S Aspirin) 81 mg DAILYWBKFT PO Last administered on 12/18/18at 12:28; Start 12/18/18 at 12:00 Meropenem 500 mg/ Sodium Chloride 50 ml @ 100 mls/hr Q24H IV Last administered on 12/18/18at 12:28; Start 12/18/18 at 12:00 Active Scripts Active Isosorbide Mononitrate Er (Isosorbide Mononitrate) 30 Mg Tab.er.24h 30 Mg PO D AILY 30 Days Coreg (Carvedilol) 3.125 Mg Tablet 3.125 Mg PO BIDWMEALS Lipitor (Atorvastatin Calcium) 80 Mg Tablet 40 Mg PO HS Flovent 110MCG Hfa (Fluticasone Propionate) 12 Gm Aer.w.adap 2 Puff IH BID Zolpidem Tartrate 5 Mg Tablet 1 Tab PO QHS PRN Mirapex (Pramipexole Di-Hcl) 0.25 Mg Tablet 1 Tab PO DAILY Famotidine 20 Mg Tablet 20 Mg PO HS Ventolin Hfa Inhaler (Albuterol Sulfate) 18 Gm Hfa.aer.ad 1 Puff INH Q6HRS PRN Endocet 10-325 Mg Tablet (Oxycodone Hcl/Acetaminophen) 1 Each Tablet 1 Tab PO QID PRN Levothyroxine Sodium 175 Mcg Tablet 175 Mcg PO DAILYAC Merrem (Meropenem) 500 Mg Vial 500 Mg IV DAILY Reported Hydrocodone-Acetamin 5-325 mg (Hydrocodone/Acetaminophen) 1 Each Tablet 1 Each PO PRN Q6HRS PRN Aspirin 81 Mg Tab.chew 1 Tab PO DAILY Tradjenta (Linagliptin) 5 Mg Tablet 5 Mg PO DAILY Diphenhydramine Hcl 50 Mg Capsule 1 Cap PO PRN Magnesium (Magnesium Oxide) 400 Mg Capsule 400 Mg PO DAILY Calcium Carbonate 500 Mg Tablet 500 Mg PO BID Keppra (Levetiracetam) 1,000 Mg Tablet 1 Tab PO BID Tylenol (Acetaminophen) 325 Mg Tablet 650 Mg PO PRN Q6HRS PRN Vitals/I & O Vital Sign - Last 24 Hours 12/17/18 12/17/18 12/17/18 12/17/18 15:00 16:42 17:15 18:27 Temp 98.1 98.1 Pulse 82 82 Resp 18 B/P (MAP) 122/45 (70) 122/45 Pulse Ox 98 98 98 O2 Delivery Room Air Room Air Room Air 12/17/18 12/17/18 12/17/18 12/18/18 19:30 20:00 22:45 03:20 Temp 98.2 98.3 98.4 98.2 98.3 98.4 Pulse 88 88 83 Resp 20 20 20 B/P (MAP) 154/92 (112) 142/65 (90) 158/73 (101) Pulse Ox 99 98 99 O2 Delivery Room Air Room Air Room Air Room Air 12/18/18 12/18/18 12/18/1812/18/19 03:49 07:00 08:00 08:54 Temp 98.5 98.5 Pulse 79 79 Resp 20 B/P (MAP) 144/67 (92) 144/67 Pulse Ox 98 98 O2 Delivery Room Air Room Air Room Air 12/18/18 12/18/18 12/18/18 12/18/18 08:55 11:00 11:18 12:03 Temp 97.9 97.9 Pulse 79 87 Resp 20 B/P (MAP) 144/67 163/75 (104) Pulse Ox 100 100 O2 Delivery Room Air Room Air Room Air Intake and Output 12/17/18 12/17/18 12/18/18 15:00 23:00 07:00 Intake Total 1060 ml 200 ml 400 ml Output Total 300 ml 350 ml Balance 1060 ml -100 ml 50 ml VIC TIWARI III DO December 18, 2018 13:57
--- NOTE | 2018-12-18 14:00 | NUR ---
Wound Care Informed that pt is discharging this afternoon. Pt has a home [employer] vac [place], which we do not have canisters for. Pt stated he has them at home, and is well versed on connecting tubing. Instructed CRISTI Lemus on how to disconnect Vac tubing, keep pt end of tubing covered with glove during transfer home, where pt will then reconnect dressing tubing to home vac, pt aware of 2 hour window for this to take place. Wound photographs were taken yesterday prior to vac reapplication, dressing will be changed tomorrow by MARY RN. Pt is scheduled in [facility] on 12/23/18 at 1300.
[2018-12-18 15:00] VITALS: BP 152/72
--- NOTE | 2018-12-18 15:23 | NUR ---
SS following up with discharge planning. [facility] declined pt and reported that they would not accept back. SS phoned and faxed discharge orders and referral to [facility], ; fax [phone].
--- NOTE | 2018-12-18 15:30 | NUR ---
Discharge Note: LACIE WILKES Discharge instructions and discharge home medications reviewed with Patient and a copy given. All questions have been answered and understanding verbalized.
--- NOTE | 2018-12-18 16:16 | NUR ---
Dr. Guerin verbalizes that he is ok to be discharged with his PICC line. Home health is helping him at home with it for IV abx that were started on previous stay. Patient had pulled PICC line out just prior to being readmitted.
[2018-12-19] MEDS ORDERED: MEROPENEM 500 MG IV SCH (09:00)
--- NOTE | 2018-12-20 12:46 | NUR ---
Wound Care Received call from pt's , Taryn, stating that HH has not been out to see pt yet and they had not heard from [facility]. They then called [facility] who stated they are not on service with them. Called [facility] and spoke with Elysia, hospice volunteer coordinator, who stated she did receive the referral but called [facility] back and left a VM stating they could not accept pt at this time. [facility] called at this time to discuss POC, will f/u.
--- NOTE | 2018-12-20 12:55 | NUR ---
SS following up with home healthcare referral. Pt was declined by [facility] due to non compliance. SS phoned and faxed referral to [facility] and [facility] and pt was declined. SS phoned and faxed referral to [facility] and received notification that pt was accepted for services.
== END 2018-12-18 15:35 | disposition home health service (06) | DRG 291 ==
LOC: ER 18:12 → 2 NORTH 20:18
PROVIDERS: ADMIT Internal Medicine; ATTEND Internal Medicine
PROC: 30233N1 Transfusion of Nonautologous Red Blood Cells into Peripheral Vein, Percutaneous Approach (ICD-10-PCS; principal; 2018-12-17)
DX: I13.2 Hypertensive heart and chronic kidney disease with heart failure and with stage 5 chronic kidney disease, or end stage renal disease (principal); N18.6 End stage renal disease; I50.32 Chronic diastolic (congestive) heart failure; J44.9 Chronic obstructive pulmonary disease, unspecified; E11.51 Type 2 diabetes mellitus with diabetic peripheral angiopathy without gangrene; E11.22 Type 2 diabetes mellitus with diabetic chronic kidney disease; I25.10 Atherosclerotic heart disease of native coronary artery without angina pectoris; I48.91 Unspecified atrial fibrillation; E78.5 Hyperlipidemia, unspecified; K57.90 Diverticulosis of intestine, part unspecified, without perforation or abscess without bleeding; E03.9 Hypothyroidism, unspecified; M19.90 Unspecified osteoarthritis, unspecified site; E66.01 Morbid (severe) obesity due to excess calories; D63.1 Anemia in chronic kidney disease; F03.90 Unspecified dementia, unspecified severity, without behavioral disturbance, psychotic disturbance, mood disturbance, and anxiety; M06.9 Rheumatoid arthritis, unspecified; Z96.652 Presence of left artificial knee joint; F32.9 Major depressive disorder, single episode, unspecified; F41.9 Anxiety disorder, unspecified; Z91.15 Patient's noncompliance with renal dialysis; Z86.73 Personal history of transient ischemic attack (TIA), and cerebral infarction without residual deficits; Z87.891 Personal history of nicotine dependence; Z95.5 Presence of coronary angioplasty implant and graft; Z88.8 Allergy status to other drugs, medicaments and biological substances; Z91.041 Radiographic dye allergy status; Z88.0 Allergy status to penicillin; Z91.013 Allergy to seafood; Z82.49 Family history of ischemic heart disease and other diseases of the circulatory system; Z91.19 Patient's noncompliance with other medical treatment and regimen; Z89.512 Acquired absence of left leg below knee; Z99.2 Dependence on renal dialysis; I25.2 Old myocardial infarction; Z83.3 Family history of diabetes mellitus
CPT/HCPCS: 36415; 36569; 71045; 80048; 80053; 82962; 83735; 83880; 84100; 84484; 85025; 85027; 86850; 86900; 86901; 86920; 93005; J0881; J2185; J2270; P9016; 99285-25

== ENCOUNTER 2018-12-22 19:16 | Inpatient (IN) | payer MEDICARE, OTHER ==
[~2018-12-22] VITALS: Ht 198.1 cm; Wt 105.3 kg
[~2018-12-22 19:16] MED LIST changes: +ASPI-630 PO; +DIPH50CA PO; +HYDR-2759 PO; +LINA5TAB PO; +MERO500V15 IV
[2018-12-22] MEDS ORDERED: GELATIN SPONGE SIZE 100. TP ONE (20:30)
[2018-12-22] MEDS ORDERED: HYDROcodone/APAP 5/325MG 1 TAB TABLET PO ONE (20:30)
[2018-12-22 20:31] LABS: BASO % 1 % (0-3); EOS # 0.3 x10^3/uL (0.0-0.7); EOS % 6 % (0-3); HEMATOCRIT 23.4 % (39.0-53.0); HEMOGLOBIN 7.5 g/dL (13.0-17.5); LYMPH # 0.7 x10^3/uL (1.0-4.8); LYMPH % 15 % (24-48); MEAN CORPUSCULAR HEMOGLOBIN 28 pg (25-35); MEAN CORPUSCULAR HGB CONC 32 g/dL (31-37); MEAN CORPUSCULAR VOLUME 88 fL (79-100); MONO # 0.5 x10^3/uL (0.0-1.1); MONO % 10 % (0-9); NEUT # 3.2 x10^3uL (1.8-7.7); NEUT % 68 % (31-73); PLATELET COUNT 175 x10^3/uL (140-400); RED BLOOD COUNT 2.67 x10^6/uL (4.30-5.70); RED CELL DISTRIBUTION WIDTH 16.6 % (11.5-14.5); WHITE BLOOD COUNT 4.8 x10^3/uL (4.0-11.0)
[2018-12-22 20:36] LABS: CREATININE 5.2 mg/dL (0.7-1.3); GFR 14.1; POTASSIUM 4.2 mmol/L (3.5-5.1)
[2018-12-22 20:42] LABS: ALBUMIN 2.5 g/dL (3.4-5.0); ALBUMIN/GLOBULIN RATIO 0.4 (1.0-1.7); TOTAL BILIRUBIN 0.4 mg/dL (0.2-1.0); TOTAL PROTEIN 8.1 g/dL (6.4-8.2)
[2018-12-22 20:46] LABS: PROTHROMBIN TIME PATIENT 14.1 SEC (11.7-14.0)
--- NOTE | 2018-12-22 21:07 | PHYS DOC ---
Past Medical History Past Medical History: Asthma, CVA, Diabetes-Type II, Hypertension, [place], Pneumonia Additional Past Medical Histor: 8 MIs, 8 CVAs, multiple stents Past Surgical History: Angioplasty, Other Additional Past Surgical Histo: HD SHUNT,TOE AMPUTATION,RIGHT ARM SX,RIGHT ARM FX,SCROTAL SX,HEART STENT Alcohol Use: None Drug Use: None Adult General Chief Complaint Chief Complaint: POST-OP PROBLEM HPI HPI Patient is a 53 year old male presenting with bleeding transmetatarsal indication of his right foot. He has had some intermittent chest discomfort for the last few days a little bit more than normal usually happens when he becomes anemic. He went to [facility] put a another dressing on it but he bled through he is worried he is going to bleed out his wound VAC is broken he can't get it fixed to Sunday he was supposed to go to wound care tomorrow recall now one to come here tonight he is worried about bleeding through it is also worried about his chest discomfort pressure nonradiating dull intermittent usually at rest Review of Systems Review of Systems Constitutional: Denies fever or chills [] Eyes: Denies change in visual acuity, redness, or eye pain [] HENT: Denies nasal congestion or sore throat [] Respiratory: GI: Denies abdominal pain, nausea, vomiting, bloody stools or diarrhea [] : Denies dysuria or hematuria [] Musculoskeletal: Denies back pain or joint pain [] Integument: Denies rash or skin lesions [] Neurologic: D All other systems were reviewed and found to be within normal limits, except as documented in this note. Current Medications Current Medications Current Medications Medications (Trade) Dose Ordered Sig/[place] Start Time Stop Time Status Last Admin Dose Admin Acetaminophen/ Hydrocodone Bitart (Lortab 5/325) 2 tab 1X ONCE 12/22/18 20:30 12/22/18 20:31 DC 12/22/18 20:39 2 TAB Gelatin (Gelfoam Size 100) 1 each 1X ONCE 12/22/18 20:30 12/22/18 20:31 DC 12/22/18 20:39 1 EACH Allergies Allergies Allergies Coded Allergies Type Severity Reaction Last Updated Verified iodine Allergy Severe THROAT SWELLING 09/24/18 Yes lisinopril Allergy Severe 09/24/18 Yes Fish Containing Products Allergy Intermediate 09/24/18 Yes Penicillins Allergy Intermediate SEE COMMENT 09/24/18 Yes piperacillin Allergy Intermediate Hives 09/24/18 Yes tazobactam Allergy Intermediate 09/24/18 Yes Physical Exam Physical Exam Constitutional: Well developed, well nourished, no acute distress, non-toxic appearance. [] HENT: Normocephalic, atraumatic, bilateral external ears normal, oropharynx moist, no oral exudates, nose normal. [] Eyes: PERRLA, EOMI, conjunctiva normal, no discharge. [] Neck: Normal range of motion, no tenderness, supple, no stridor. [] Cardiovascular:Heart rate regular rhythm Lungs & Thorax: Decreased bibasilar breath sounds Abdomen: Bowel sounds normal, soft, no tenderness, no masses, no pulsatile masses. [] Skin: Warm, dry, no erythema, no rash. [] Back: No tenderness, no CVA tenderness. [] Extremities: Right lower extremity there is a transmitted tarsal amputation with GRANDULATION TISSUE PRESENT, THERE was a small ApProximateLY 3 cm blood clot no active bleeding pulses present. Neurologic: Alert and oriented X 3, normal motor function, normal sensory function, no focal deficits noted. [] Psychologic: Affect normal, judgement normal, mood normal. [] Current Patient Data Vital Signs Vital Signs Date Time Temp Pulse Resp B/P (MAP) Pulse Ox O2 Delivery O2 Flow Rate FiO2 12/22/18 19:28 98.1 94 18 145/81 (102) 97 Room Air 98.1 Lab Values Laboratory Tests Test 12/22/18 20:22 White Blood Count 4.8 x10^3/uL (4.0-11.0) Red Blood Count 2.67 x10^6/uL (4.30-5.70) L Hemoglobin 7.5 g/dL (13.0-17.5) L Hematocrit 23.4 % (39.0-53.0) L Mean Corpuscular Volume 88 fL (79-100) Mean Corpuscular Hemoglobin 28 pg (25-35) Mean Corpuscular Hemoglobin Concent 32 g/dL (31-37) Red Cell Distribution Width 16.6 % (11.5-14.5) H Platelet Count 175 x10^3/uL (140-400) Neutrophils (%) (Auto) 68 % (31-73) Lymphocytes (%) (Auto) 15 % (24-48) L Monocytes (%) (Auto) 10 % (0-9) H Eosinophils (%) (Auto) 6 % (0-3) H Basophils (%) (Auto) 1 % (0-3) Neutrophils # (Auto) 3.2 x10^3uL (1.8-7.7) Lymphocytes # (Auto) 0.7 x10^3/uL (1.0-4.8) L Monocytes # (Auto) 0.5 x10^3/uL (0.0-1.1) Eosinophils # (Auto) 0.3 x10^3/uL (0.0-0.7) Basophils # (Auto) 0.0 x10^3/uL (0.0-0.2) Prothrombin Time 14.1 SEC (11.7-14.0) H Prothrombin Time INR 1.1 (0.8-1.1) Sodium Level 138 mmol/L (136-145) Potassium Level 4.2 mmol/L (3.5-5.1) Chloride Level 99 mmol/L (98-107) Carbon Dioxide Level 31 mmol/L (21-32) Anion Gap 8 (6-14) Blood Urea Nitrogen 51 mg/dL (8-26) H Creatinine 5.2 mg/dL (0.7-1.3) H Estimated GFR (Cockcroft-Gault) 14.1 BUN/Creatinine Ratio 10 (6-20) Glucose Level 197 mg/dL (70-99) H Calcium Level 9.0 mg/dL (8.5-10.1) Total Bilirubin 0.4 mg/dL (0.2-1.0) Aspartate Amino Transferase (AST) 17 U/L (15-37) Alanine Aminotransferase (ALT) 10 U/L (16-63) L Alkaline Phosphatase 57 U/L (46-116) Troponin I Quantitative < 0.017 ng/mL (0.000-0.055) Total Protein 8.1 g/dL (6.4-8.2) Albumin 2.5 g/dL (3.4-5.0) L Albumin/Globulin Ratio 0.4 (1.0-1.7) L Laboratory Tests 12/22/18 20:22 Laboratory Tests 12/22/18 20:22 EKG EKG []Normal sinus rhythm rate of 83 no acute ischemic changes noted interpreted by me time of encounter Radiology/Procedures Radiology/Procedures [] Course & Med Decision Making Course & Med Decision Making Pertinent Labs and Imaging studies reviewed. (See chart for details) []In the emergency room I did on wrap a blood soaked gauze there was good granulation tissue with a small 3 cm blood clot I left a blood clot in place it appeared stable there was no active bleeding I placed Gelfoam overlying this fall by another pressure dressing over the top and obtained hemostasis for the time being. He has had intermittent chest discomfort he is anemic but does not meet transfusion criteria at this time. No chest pain in the ER. Patient does not have a working wound VAC he is at risk of rebleeding from this surgical site talked with Dr. Hicks we will admit him overnight serial troponins and then wound care consultation in the morning Dragon Disclaimer Dragon Disclaimer This electronic medical record was generated, in whole or in part, using a voice recognition dictation system. Departure Departure Impression: Primary Impression: End stage renal disease Additional Impressions: Postoperative complication Chest pain Disposition: 09 ADMITTED INPATIENT Admitting Physician: Franky Guerin Condition: STABLE Referrals: MARIA ISABEL LOPEZ DO (PCP) Problem Qualifiers SHAMIR LIM MD December 22, 2018 21:07
[2018-12-22 21:40] VITALS: BP 156/92
--- NOTE | 2018-12-22 22:00 | NUR ---
Pt arrival to unit. Pt oriented to settings, unit routines, plan of care. Pt education on high fall risk precautions and verbalized understanding. He states a few days ago his wound vac quit working on R foot and he had significant bleeding from surgical site. He states he went to dialysis Sunday and they had to administer heparin to his fistula for patency and he believes this exacerbated his foot bleeding. He has had intermittent sharp low severity 2/10 chest pains that he states he gets when he is anemic. Hgb on admission was 7.5. Pt verbalized that he would report any chest pain to RN during his hospital stay, he is currently chest pain free. Items and call light in reach. R foot was wrapped by ER physician with special dressing to help bleeding stop, so I am going to leave it overnight. Photos, if needed will have to be obtained in the am of the foot incision per hospital policy of obtaining photos with 24 hours. Dressing is currently CDI. Positive pulse in left foot, extremity warm, sensation normal besides pain.
[2018-12-22] MEDS ORDERED: C.DIFF MED SCREEN BY RX. MC ONE (23:30)
[2018-12-22] MEDS ORDERED: ALBUTEROL SULFATE 2.5 MG/3 ML NEBU. NEB PRN (23:45)
[2018-12-22] MEDS ORDERED: diphenhydrAMINE HCL 25 MG CAPSULE PO PRN (23:45)
[2018-12-22] MEDS ORDERED: CALC200T3 PO (23:48)
[2018-12-23] MEDS ORDERED: oxyCODONE/APAP 10/325 1 TAB TABLET PO PRN
[2018-12-23] MEDS ORDERED: HYDROcodone/APAP 5/325MG 1 TAB TABLET PO PRN
[2018-12-23] MEDS ORDERED: ZOLPIDEM 5 MG TABLET. PO PRN
[2018-12-23] MEDS ORDERED: FAMOTIDINE 20 MG TABLET. PO SCH
[2018-12-23] MEDS ORDERED: ACETAMINOPHEN 325 MG TABLET. PO PRN
[2018-12-23] MEDS ORDERED: ALBUTEROL SULFATE 2.5 MG/3 ML NEBU. NEB PRN (00:15)
[2018-12-23] MEDS: diphenhydrAMINE HCL 25 MG CAPSULE PO PRN ×3 (00:33→17:49)
[2018-12-23 03:00] VITALS: BP 149/75
[2018-12-23] MEDS: LEVOTHYROXINE 175 MCG TABLET PO SCH (06:22)
--- NOTE | 2018-12-23 06:25 | EKG ---
[facility] [address] [place] [address] Test Date: 2018-12-22 Test Time: 20:33:59 Pat Name: BHAVYA WILKES Department: Room: 203 1 Gender: M [employer] Dispatcher: : [id number] Requested By: SHAMIR LIM Order Number: [id number] Reading MD: Goran Dia Measurements Intervals [place] Rate: 83 P: 35 MT: 156 QRS: -37 QRSD: 100 T: 20 QT: 386 QTc: 459 Interpretive Statements SINUS RHYTHM LEFT ATRIAL ABNORMALITY ABNORMAL LEFT AXIS DEVIATION LEFT ANTERIOR FASCICULAR BLOCK QRS(T) CONTOUR ABNORMALITY CONSIDER INFERIOR INFARCT ABNORMAL ECG Electronically Signed On 01-17-2019 11:35:55 CDT by Goran Dia
[2018-12-23 07:00] VITALS: BP 159/72
[2018-12-23] MEDS: BUDESONIDE 0.5 MG/2 ML NEBU. NEB SCH ×2 (07:16→20:15)
--- NOTE | 2018-12-23 07:45 | RAD ---
Examination: PORTABLE CHEST 1V History: Chest pain Comparison/Correlation: 12/17/2018 AP view of the chest Findings: Portable upright frontal view of the chest was obtained. Right-sided PICC again seen. Stent material bilaterally overlying the brachiocephalic veins noted again. Heart size is borderline to slightly enlarged. No pneumothorax. Right lung field is clear. Subtle opacification of the left costophrenic angle may represent overlying soft tissues. No significant pleural effusion or conclusive infiltrate but evaluation is limited due to underpenetrated technique. Impression: No definite infiltrate. Lateral view should be considered for more complete assessment. Electronically signed by: Mil Flores MD (12/23/2018 7:42 AM) [facility]
[2018-12-23] MEDS: levETIRAcetam 500 MG TABLET PO SCH ×2 (08:27→23:13)
[2018-12-23] MEDS: MEROPENEM 500 MG in IV NORMAL SALINE 50ML 50 ML IV SCH (08:27)
[2018-12-23] MEDS: CALCIUM CARBONATE 500 MG TABLET PO SCH ×2 (08:27→23:14)
[2018-12-23] MEDS: PRAMIPEXOLE 0.25 MG TABLET. PO SCH (08:27)
[2018-12-23] MEDS: LINAGLIPTIN 5 MG TABLET PO SCH (08:28)
[2018-12-23] MEDS: CARVEDILOL 3.125 MG TABLET. PO SCH ×2 (08:28→17:47)
[2018-12-23] MEDS: MAGNESIUM OXIDE 400 MG TABLET PO SCH (08:28)
[2018-12-23] MEDS ORDERED: MEROPENEM 500 MG IV SCH (09:00)
--- NOTE | 2018-12-23 09:02 | NUR ---
Pharmacy Medication Review S: Consulted for medication review re: C.diff Risk Assessment score of 4 O: BHAVYA WILKES is a 53 year old with: Previous C.diff infection: No Previous hospitalization: Within 30 days Recent antibiotics: Within 30 days Use of gastric acid suppressor: No Transfer from SC/LTAC: No Current antibiotic regimen: MEROPENEM Current acid suppression regimen: FAMOTIDINE A: Patient has been identified as having risk factors for C.diff infection as noted above. P: ABX DE-ESCALATION RECOMMENDED: NO, PT ON 5 WEEK COURSE MEROPENEM PER ID SERVICE PROBIOTIC ORDERED: YES PPI CHANGED TO [id number]: PT ON H2RA ALREADY [facility]IN GONG [facility], 12/23/18 0902
[2018-12-23] MEDS: LACTOBACILLUS RHAMNOSUS GG 1 CAPSULE. PO SCH ×2 (09:23→23:13)
[2018-12-23] MEDS: ONDANSETRON ODT 4 MG TAB.RAPDIS. PO PRN ×2 (09:34→17:46)
[2018-12-23 11:00] VITALS: BP 150/67
--- NOTE | 2018-12-23 11:02 | PDOC1 ---
History and Physical Date of Admission: Date of Admission DATE: 12/23/18 TIME: 10:55 Chief Complaint: Problems: (1) Coronary artery disease (2) Congestive heart failure (3) Fever (4) Hemoptysis (5) Cardiac arrhythmia (6) CAD (coronary artery disease) (7) Diabetes (8) Dyspnea (9) Hyponatremia (10) Infection (11) Leukocytosis (12) Pancreatitis (13) Peripheral neuropathy (14) Pulmonary edema (15) Renal failure (16) Ventricular tachycardia (17) Sepsis (18) ESRD (end stage renal disease) (19) ESRD (end stage renal disease) (20) Abdominal pain (21) Severe protein-calorie malnutrition (22) GI bleed (23) Isabel-rectal abscess (24) Diabetic foot ulcer (25) Accelerated hypertension (26) Influenza A (27) Nausea & vomiting (28) AV fistula occlusion (29) Compression fracture of L1 lumbar vertebra (30) ESRD (end stage renal disease) on dialysis (31) Renal failure (ARF), acute on chronic (32) CHF, acute on chronic (33) Right foot infection (34) AV fistula infection (35) AV fistula infection (36) Left foot infection (37) Hyperosmolar non-ketotic state in patient with type 2 diabetes mellitus (38) Diabetes mellitus type 2 in obese (39) TYPE 2 DIABETES MELLITUS WITH FOOT ULCER (40) NON-PRS CHRONIC ULCER OTH PRT RIGHT FOOT W NECROSIS OF BONE (41) Symptomatic anemia (42) Post-operative complication (43) Postoperative complication (44) End stage renal disease (45) Chest pain (46) Diabetic toe ulcer Chief Complain: Right foot wound bleeding History of Present Illness: HPI: This is a middle-aged -[place] male well-known to my service he is on dialysis and is extremely noncompliant We just discharge him last week and now is back because his right foot wound is bleeding he had a transmetatarsal amputation and normally has a wound VAC on He states the [employer] did not arrange wound VAC containers The last container filled up and started flowing backwards He came to the ER last night I talked to the ER doctor was admitted the patient and his aggressive wound care equipment and have orthopedic seen Symptoms are rated at 10 out 10 has associated anxiety spell occurring for several days worse with moving describes as very irritating Past Medical/Surgical History: PMH/PSH: Past Medical History: Asthma, CVA, Diabetes-Type II, Hypertension, [place], Pneumonia Additional Past Medical Histor: 8 MIs, 8 CVAs, multiple stents Past Surgical History: Angioplasty, Other Additional Past Surgical Histo: HD SHUNT,TOE AMPUTATION,RIGHT ARM SX,RIGHT ARM FX,SCROTAL SX,HEART STENT Allergies: Allergies: Coded Allergies: iodine (Verified Allergy, Severe, THROAT SWELLING, 09/24/18) lisinopril (Verified Allergy, Severe, 09/24/18) Fish Containing Products (Verified Allergy, Intermediate, 09/24/18) Penicillins (Verified Allergy, Intermediate, SEE COMMENT, 09/24/18) Tolerates meropenem and Cephalosporins piperacillin (Verified Allergy, Intermediate, Hives, 09/24/18) Tolerates meropenem tazobactam (Verified Allergy, Intermediate, 09/24/18) Family History: Family History: dm Social History: Social Hisoty: He does not drink smoke or take drugs 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 Current Medications: Current Medications Current Medications Gelatin (Gelfoam Size 100) 1 each 1X ONCE TP Last administered on 12/22/18at 20:39; Start 12/22/18 at 20:30; Stop 12/22/18 at 20:31; Status DC Acetaminophen/ Hydrocodone Bitart (Lortab 5/325) 2 tab 1X ONCE PO Last administered on 12/22/18at 20:39; Start 12/22/18 at 20:30; Stop 12/22/18 at 20:31; Status DC Pharmacy Consult (C.diff Med Screen By Rx) 1 each 1X ONCE [facility] ; Start 12/22/18 at 23:30; Stop 12/22/18 at 23:31; Status DC Acetaminophen (Tylenol) 650 mg PRN Q6HRS PRN PO FEVER; Start 12/23/18 at 00:00 Calcium Carbonate/ Glycine (Oscal) 500 mg BID PO Last administered on 12/23/18at 08:27; Start 12/23/18 at 09:00 Calcium Carbonate/ Glycine (Tums) 500 mg PRN Q4HRS PRN PO INDIGESTION; Start 12/23/18 at 00:00 Carvedilol (Coreg) 3.125 mg BIDWMEALS PO Last administered on 12/23/18at 08:28; Start 12/23/18 at 08:00 Famotidine (Pepcid) 20 mg HS PO Last administered on 12/23/18at 00:33; Start 12/23/18 at 00:00; Stop 12/23/18 at 08:47; Status DC Acetaminophen/ Hydrocodone Bitart (Lortab 5/325) 1 tab PRN Q6HRS PRN PO MODERATE PAIN; Start 12/23/18 at 00:00 Levothyroxine Sodium (Synthroid) 175 mcg DAILY06 PO Last administered on 12/23/18at 06:22; Start 12/23/18 at 06:00 Linagliptin (Tradjenta) 5 mg DAILY PO Last administered on 12/23/18at 08:28; Start 12/23/18 at 09:00 Oxycodone/ Acetaminophen (Percocet 10/325) 1 tab PRN QID PRN PO SEVERE PAIN Last administered on 12/23/18at 08:29; Start 12/23/18 at 00:00 Zolpidem Tartrate (Ambien) 5 mg PRN QHS PRN PO sleep; Start 12/23/18 at 00:00 Albuterol Sulfate (Ventolin Neb Soln) 2.5 mg PRN Q6HRS PRN NEB SHORTNESS OF BREATH; Start 12/22/18 at 23:45; Status Cancel Atorvastatin Calcium (Lipitor) 40 mg QHS PO ; Start 12/23/18 at 21:00 Diphenhydramine HCl (Benadryl) 25 mg PRN Q6HRS PRN PO ITCHING; Start 12/22/18 at 23:45; Stop 12/22/18 at 23:55; Status DC Budesonide (Pulmicort) 0.5 mg RTBID NEB Last administered on 12/23/18at 07:16; Start 12/23/18 at 08:00 Levetiracetam (Keppra) 1,000 mg BID PO Last administered on 12/23/18at 08:27; Start 12/23/18 at 09:00 Magnesium Oxide (Magnesium Oxide) 400 mg DAILY PO Last administered on 12/23/18at 08:28; Start 12/23/18 at 09:00 Non-Formulary Medication (Meropenem (Merrem)) 500 mg DAILY IV ; Start 12/23/18 at 09:00; Status UNV Pramipexole Dihydrochloride (miraPEX) 0.25 mg DAILY PO Last administered on 12/23/18at 08:27; Start 12/23/18 at 09:00 Diphenhydramine HCl (Benadryl) 50 mg PRN Q6HRS PRN PO ITCHING Last administered on 12/23/18at 08:33; Start 12/22/18 at 23:55 Meropenem 500 mg/ Sodium Chloride 50 ml @ 100 mls/hr DAILY IV Last administered on 12/23/18at 08:27; Start 12/23/18 at 09:00 Albuterol Sulfate (Ventolin Neb Soln) 2.5 mg PRN Q6HRS PRN NEB SHORTNESS OF BREATH; Start 12/23/18 at 00:15 Famotidine (Pepcid) 20 mg Q48H PO ; Start 12/25/18 at 09:00 Lactobacillus Rhamnosus (Culturelle) 1 cap BID PO Last administered on 12/23/18at 09:23; Start 12/23/18 at 09:00 Ondansetron HCl (Zofran Odt) 4 mg PRN Q8HRS PRN PO NAUSEA/VOMITING Last administered on 12/23/18at 09:34; Start 12/23/18 at 09:30 Active Scripts Active Isosorbide Mononitrate Er (Isosorbide Mononitrate) 30 Mg Tab.er.24h 30 Mg PO DAILY 30 Days Coreg (Carvedilol) 3.125 Mg Tablet 3.125 Mg PO BIDWMEALS Lipitor (Atorvastatin Calcium) 80 Mg Tablet 40 Mg PO HS Flovent 110MCG Hfa (Fluticasone Propionate) 12 Gm Aer.w.adap 2 Puff IH BID Zolpidem Tartrate 5 Mg Tablet 1 Tab PO QHS PRN Mirapex (Pramipexole Di-Hcl) 0.25 Mg Tablet 1 Tab PO DAILY Famotidine 20 Mg Tablet 20 Mg PO HS Ventolin Hfa Inhaler (Albuterol Sulfate) 18 Gm Hfa.aer.ad 1 Puff INH Q6HRS PRN Endocet 10-325 Mg Tablet (Oxycodone Hcl/Acetaminophen) 1 Each Tablet 1 Tab PO QID PRN Levothyroxine Sodium 175 Mcg Tablet 175 Mcg PO DAILYAC Merrem (Meropenem) 500 Mg Vial 500 Mg IV DAILY Reported Tums (Calcium Carbonate) 200 Mg Tab.chew 200 Mg PO PRN Q4HRS PRN Hydrocodone-Acetamin 5-325 mg (Hydrocodone/Acetaminophen) 1 Each Tablet 1 Each PO PRN Q6HRS PRN Aspirin 81 Mg Tab.chew 1 Tab PO DAILY Tradjenta (Linagliptin) 5 Mg Tablet 5 Mg PO DAILY Diphenhydramine Hcl 50 Mg Capsule 1 Cap PO PRN Magnesium (Magnesium Oxide) 400 Mg Capsule 400 Mg PO DAILY Calcium Carbonate 500 Mg Tablet 500 Mg PO BID Keppra (Levetiracetam) 1,000 Mg Tablet 1 Tab PO BID Tylenol (Acetaminophen) 325 Mg Tablet 650 Mg PO PRN Q6HRS PRN ROS: Review of Systems Review of System REVIEW OF SYSTEMS: GENERAL: Denies weakness SKIN: No bruising, hair changes or rashes. EYES: No blurred, double or loss of vision. NOSE AND THROAT: No history of nosebleeds, hoarseness or sore throat. HEART: No history of palpitations, chest pain or shortness of breath on exertion. LUNGS: Denies cough, hemoptysis, wheezing or shortness of breath. GASTROINTESTINAL: Denies changes in appetite, nausea, vomiting, diarrhea or constipation. GENITOURINARY: No history of frequency, urgency, hesitancy or nocturia. NEUROLOGIC: Denies history of numbness, tingling, tremor or weakness. PSYCHIATRIC: No history of panic, anxiety or depression. ENDOCRINE: No history of heat or cold intolerance, polyuria or polydipsia. EXTREMITIES: Complains of right foot bleeding Physical Exam: Vital Signs: Vital Signs Date Time Temp Pulse Resp B/P (MAP) Pulse Ox O2 Delivery O2 Flow Rate FiO2 12/23/18 08:30 Room Air 12/23/18 08:28 95 159/72 12/23/18 07:18 100 12/23/18 07:00 97.6 18 97.6 Physcial Exam: GEN.: No apparent distress. Alert and oriented. HEENT: Head is normocephalic, atraumatic NECK: Supple, no JVD LUNGS: Clear to auscultation without rhonchi or wheezing HEART: RRR, S1, S2 present. Peripheral pulses intact ABDOMEN: Soft, nontender. Positive bowel sounds no organomegaly EXTREMITIES: Right foot with transmetatarsal amputation with bleeding and clean dry intact dressing NEUROLOGIC: Normal speech, normal tone. A&O x 3 PSYCHIATRIC: Normal affect, normal mood. Stable SKIN: No ulcerations or rashes VASCULAR: Good capillary refill Labs: Labs: Laboratory Tests Test 12/22/18 20:22 12/22/18 23:45 12/23/18 06:29 12/23/18 08:04 White Blood Count 4.8 x10^3/uL (4.0-11.0) Red Blood Count 2.67 x10^6/uL (4.30-5.70) Hemoglobin 7.5 g/dL (13.0-17.5) Hematocrit 23.4 % (39.0-53.0) Mean Corpuscular Volume 88 fL (79-100) Mean Corpuscular Hemoglobin 28 pg (25-35) Mean Corpuscular Hemoglobin Concent 32 g/dL (31-37) Red Cell Distribution Width 16.6 % (11.5-14.5) Platelet Count 175 x10^3/uL (140-400) Neutrophils (%) (Auto) 68 % (31-73) Lymphocytes (%) (Auto) 15 % (24-48) Monocytes (%) (Auto) 10 % (0-9) Eosinophils (%) (Auto) 6 % (0-3) Basophils (%) (Auto) 1 % (0-3) Neutrophils # (Auto) 3.2 x10^3uL (1.8-7.7) Lymphocytes # (Auto) 0.7 x10^3/uL (1.0-4.8) Monocytes # (Auto) 0.5 x10^3/uL (0.0-1.1) Eosinophils # (Auto) 0.3 x10^3/uL (0.0-0.7) Basophils # (Auto) 0.0 x10^3/uL (0.0-0.2) Prothrombin Time 14.1 SEC (11.7-14.0) Prothromb Time International Ratio 1.1 (0.8-1.1) Sodium Level 138 mmol/L (136-145) Potassium Level 4.2 mmol/L (3.5-5.1) Chloride Level 99 mmol/L (98-107) Carbon Dioxide Level 31 mmol/L (21-32) Anion Gap 8 (6-14) Blood Urea Nitrogen 51 mg/dL (8-26) Creatinine 5.2 mg/dL (0.7-1.3) Estimated GFR (Cockcroft-Gault) 14.1 BUN/Creatinine Ratio 10 (6-20) Glucose Level 197 mg/dL (70-99) Calcium Level 9.0 mg/dL (8.5-10.1) Total Bilirubin 0.4 mg/dL (0.2-1.0) Aspartate Amino Transf (AST/SGOT) 17 U/L (15-37) Alanine Aminotransferase (ALT/SGPT) 10 U/L (16-63) Alkaline Phosphatase 57 U/L (46-116) Troponin I Quantitative < 0.017 ng/mL (0.000-0.055) < 0.017 ng/mL (0.000-0.055) 0.023 ng/mL (0.000-0.055) FX-Yev-L-Type Natriuretic Peptide 7846 pg/mL (0-124) Total Protein 8.1 g/dL (6.4-8.2) Albumin 2.5 g/dL (3.4-5.0) Albumin/Globulin Ratio 0.4 (1.0-1.7) Glucose (Fingerstick) 140 mg/dL (70-99) Laboratory Tests Test 12/22/18 20:22 12/22/18 23:45 12/23/18 06:29 12/23/18 08:04 White Blood Count 4.8 x10^3/uL (4.0-11.0) Red Blood Count 2.67 x10^6/uL (4.30-5.70) Hemoglobin 7.5 g/dL (13.0-17.5) Hematocrit 23.4 % (39.0-53.0) Mean Corpuscular Volume 88 fL (79-100) Mean Corpuscular Hemoglobin 28 pg (25-35) Mean Corpuscular Hemoglobin Concent 32 g/dL (31-37) Red Cell Distribution Width 16.6 % (11.5-14.5) Platelet Count 175 x10^3/uL (140-400) Neutrophils (%) (Auto) 68 % (31-73) Lymphocytes (%) (Auto) 15 % (24-48) Monocytes (%) (Auto) 10 % (0-9) Eosinophils (%) (Auto) 6 % (0-3) Basophils (%) (Auto) 1 % (0-3) Neutrophils # (Auto) 3.2 x10^3uL (1.8-7.7) Lymphocytes # (Auto) 0.7 x10^3/uL (1.0-4.8) Monocytes # (Auto) 0.5 x10^3/uL (0.0-1.1) Eosinophils # (Auto) 0.3 x10^3/uL (0.0-0.7) Basophils # (Auto) 0.0 x10^3/uL (0.0-0.2) Prothrombin Time 14.1 SEC (11.7-14.0) Prothromb Time International Ratio 1.1 (0.8-1.1) Sodium Level 138 mmol/L (136-145) Potassium Level 4.2 mmol/L (3.5-5.1) Chloride Level 99 mmol/L (98-107) Carbon Dioxide Level 31 mmol/L (21-32) Anion Gap 8 (6-14) Blood Urea Nitrogen 51 mg/dL (8-26) Creatinine 5.2 mg/dL (0.7-1.3) Estimated GFR (Cockcroft-Gault) 14.1 BUN/Creatinine Ratio 10 (6-20) Glucose Level 197 mg/dL (70-99) Calcium Level 9.0 mg/dL (8.5-10.1) Total Bilirubin 0.4 mg/dL (0.2-1.0) Aspartate Amino Transf (AST/SGOT) 17 U/L (15-37) Alanine Aminotransferase (ALT/SGPT) 10 U/L (16-63) Alkaline Phosphatase 57 U/L (46-116) Troponin I Quantitative < 0.017 ng/mL (0.000-0.055) < 0.017 ng/mL (0.000-0.055) 0.023 ng/mL (0.000-0.055) EW-[id number]-M-Type Natriuretic Peptide 7846 pg/mL (0-124) Total Protein 8.1 g/dL (6.4-8.2) Albumin 2.5 g/dL (3.4-5.0) Albumin/Globulin Ratio 0.4 (1.0-1.7) Glucose (Fingerstick) 140 mg/dL (70-99) Images: Images Findings: Portable upright frontal view of the chest was obtained. Right-sided PICC again seen. Stent material bilaterally overlying the brachiocephalic veins noted again. Heart size is borderline to slightly enlarged. No pneumothorax. Right lung field is clear. Subtle opacification of the left costophrenic angle may represent overlying soft tissues. No significant pleural effusion or conclusive infiltrate but evaluation is limited due to underpenetrated technique. Impression: No definite infiltrate. Lateral view should be considered for more complete assessment. Assessment/Plan Assessment/Plan Status post right transmetatarsal amputation with wound VAC failure and bleeding and a middle-aged male who has end-stage renal disease and is severely noncompliant and has multiple comorbidities plan Consult orthopedics Home meds Consult nephrology Sunday dialysis Aggressive wound care and we have consulted the wound care nurse DVT prophylaxis Full code I had a meeting with the patient and case finisher to discuss why he is so noncompliant with dialysis He complains that the transportation gentleman shows a at 6 in the morning, and then sleeps in his vehicle until he picks the patient. Patient states he tries to call him, and he doesnt answer the phone? (I'm not sure if tthis is true?) Total time 31 minutes VIC TIWARI III, DO December 23, 2018 11:02
--- NOTE | 2018-12-23 12:03 | PDOC ---
Provider Note Provider Note Consult received for TMA bleeding. He had surgery in November (TMA 11/28/18) with Dr. Alvarez, so I will consult vascular for follow up of the surgery. MARSHA TENORIO MD December 23, 2018 12:03
--- NOTE | 2018-12-23 12:13 | NUR ---
SS following up with discharge planning. SS reviewed pt chart. Pt has had recent stay in the hospital. Per [facility] in [place] and various home healthcare companies pt has a history of non-compliance with services. [facility] reported that they have arranged transportation for pt to attend dialysis but pt is non compliant regardless of the fact and will often call and cancel dialysis or will not be ready or answer the door when transportation arrives. On last admission pt was declined for services by [facility], [facility], [facility], [facility], and [facility] due to non-compliance. [facility] agreed to follow pt. Pt also has services with [facility]. Physician and case management aware. Pt will need to improve compliance with services. PT/OT ordered. SS will await PT/OT evaluations and recommendations and will proceed accordingly.
--- NOTE | 2018-12-23 13:10 | PDOC2 ---
CONSULT Date of Consult Date of Consult DATE: 12/23/18 TIME: 13:02 Reason for Consult Reason for Consult: ESRD Identification/Chief Complaint Chief Complaint "I am feeling good" Source Source: Chart review, Patient History of Present Illness Reason for Visit: Patient is a 53 year old AAM male ESRD on HD TTS, frequent hospitalizations, presented to ED with bleeding transmetatarsal indication of his right foot. He has had some intermittent chest discomfort for the last few days a little bit more than normal usually happens when he becomes anemic. He went to [facility] and put a another dressing on it but he bled through. Denies any CP or SOB currently. No N/V/F/C. Chronic Non complaince with HD Last HD on Sunday Past Medical History Cardiovascular: AFIB, CAD, CHF, HTN, OR, Hyperlipidemia, Other Pulmonary: COPD CENTRAL NERVOUS SYSTEM: Dementia, Periperal neuropathy, Seizure, TIA GI: Diverticulosis, Other Heme/Onc: Anemia NOS Hepatobiliary: No pertinent hx Psych: Anxiety, Depression Musculoskeletal: Osteoarthritis Rheumatologic: Rheumatoid arthritis Infectious disease: No pertinent hx Renal/: Chronic renal failure Endocrine: Diabetes, Hypothyroidism, Hyperparathyroidism Past Surgical History Past Surgical History: Cataract Removal, Total knee replacement, Other Family History Family History: Diabetes, Hypertension Social History Social History: Parent ALCOHOL: none Drugs: None Lives: with Family Current Problem List Problem List Problems Medical Problems: (1) Chest pain Status: Acute (2) End stage renal disease Status: Acute (3) Postoperative complication Status: Acute Current Medications Current Medications Current Medications Gelatin (Gelfoam Size 100) 1 each 1X ONCE TP Last administered on 12/22/18at 20:39; Start 12/22/18 at 20:30; Stop 12/22/18 at 20:31; Status DC Acetaminophen/ Hydrocodone Bitart (Lortab 5/325) 2 tab 1X ONCE PO Last administered on 12/22/18at 20:39; Start 12/22/18 at 20:30; Stop 12/22/18 at 20:31; Status DC Pharmacy Consult (C.diff Med Screen By Rx) 1 each 1X ONCE [facility] ; Start 12/22/18 at 23:30; Stop 12/22/18 at 23:31; Status DC Acetaminophen (Tylenol) 650 mg PRN Q6HRS PRN PO FEVER; Start 12/23/18 at 00:00 Calcium Carbonate/ Glycine (Oscal) 500 mg BID PO Last administered on 12/23/18 08:27; Start 12/23/18 at 09:00 Calcium Carbonate/ Glycine (Tums) 500 mg PRN Q4HRS PRN PO INDIGESTION; Start 12/23/18 at 00:00 Carvedilol (Coreg) 3.125 mg BIDWMEALS PO Last administered on 12/23/18 08:28; Start 12/23/18 at 08:00 Famotidine (Pepcid) 20 mg HS PO Last administered on 12/23/18at 00:33; Start 12/23/18 at 00:00; Stop 12/23/18 at 08:47; Status DC Acetaminophen/ Hydrocodone Bitart (Lortab 5/325) 1 tab PRN Q6HRS PRN PO MODERATE PAIN; Start 12/23/18 at 00:00 Levothyroxine Sodium (Synthroid) 175 mcg DAILY06 PO Last administered on 12/23/18at 06:22; Start 12/23/18 at 06:00 Linagliptin (Tradjenta) 5 mg DAILY PO Last administered on 12/23/18at 08:28; Start 12/23/18 at 09:00 Oxycodone/ Acetaminophen (Percocet 10/325) 1 tab PRN QID PRN PO SEVERE PAIN Last administered on 12/23/18at 08:29; Start 12/23/18 at 00:00 Zolpidem Tartrate (Ambien) 5 mg PRN QHS PRN PO sleep; Start 12/23/18 at 00:00 Albuterol Sulfate (Ventolin Neb Soln) 2.5 mg PRN Q6HRS PRN NEB SHORTNESS OF BREATH; Start 12/22/18 at 23:45; Status Cancel Atorvastatin Calcium (Lipitor) 40 mg QHS PO ; Start 12/23/18 at 21:00 Diphenhydramine HCl (Benadryl) 25 mg PRN Q6HRS PRN PO ITCHING; Start 12/22/18 at 23:45; Stop 12/22/18 at 23:55; Status DC Budesonide (Pulmicort) 0.5 mg RTBID NEB Last administered on 12/23/18at 07:16; Start 12/23/18 at 08:00 Levetiracetam (Keppra) 1,000 mg BID PO Last administered on 12/23/18 08:27; Start 12/23/18 at 09:00 Magnesium Oxide (Magnesium Oxide) 400 mg DAILY PO Last administered on 12/23/18 08:28; Start 12/23/18 at 09:00 Non-Formulary Medication (Meropenem (Merrem)) 500 mg DAILY IV ; Start 12/23/18 at 09:00; Status UNV Pramipexole Dihydrochloride (miraPEX) 0.25 mg DAILY PO Last administered on 08:27; Start 12/23/18 at 09:00 Diphenhydramine HCl (Benadryl) 50 mg PRN Q6HRS PRN PO ITCHING Last administered on 12/23/18at 08:33; Start 12/22/18 at 23:55 Meropenem 500 mg/ Sodium Chloride 50 ml @ 100 mls/hr DAILY IV Last administered on 12/23/18 08:27; Start 12/23/18 at 09:00 Albuterol Sulfate (Ventolin Neb Soln) 2.5 mg PRN Q6HRS PRN NEB SHORTNESS OF BREATH; Start 12/23/18 at 00:15 Famotidine (Pepcid) 20 mg Q48H PO ; Start 12/25/18 at 09:00 Lactobacillus Rhamnosus (Culturelle) 1 cap BID PO Last administered on 12/23/18 09:23; Start 12/23/18 at 09:00 Ondansetron HCl (Zofran Odt) 4 mg PRN Q8HRS PRN PO NAUSEA/VOMITING Last administered on 12/23/18at 09:34; Start 12/23/18 at 09:30 Active Scripts Active Isosorbide Mononitrate Er (Isosorbide Mononitrate) 30 Mg Tab.er.24h 30 Mg PO DAILY 30 Days Coreg (Carvedilol) 3.125 Mg Tablet 3.125 Mg PO BIDWMEALS Lipitor (Atorvastatin Calcium) 80 Mg Tablet 40 Mg PO HS Flovent 110MCG Hfa (Fluticasone Propionate) 12 Gm Aer.w.adap 2 Puff IH BID Zolpidem Tartrate 5 Mg Tablet 1 Tab PO QHS PRN Mirapex (Pramipexole Di-Hcl) 0.25 Mg Tablet 1 Tab PO DAILY Famotidine 20 Mg Tablet 20 Mg PO HS Ventolin Hfa Inhaler (Albuterol Sulfate) 18 Gm Hfa.aer.ad 1 Puff INH Q6HRS PRN Endocet 10-325 Mg Tablet (Oxycodone Hcl/Acetaminophen) 1 Each Tablet 1 Tab PO QID PRN Levothyroxine Sodium 175 Mcg Tablet 175 Mcg PO DAILYAC Merrem (Meropenem) 500 Mg Vial 500 Mg IV DAILY Reported Tums (Calcium Carbonate) 200 Mg Tab.chew 200 Mg PO PRN Q4HRS PRN Hydrocodone-Acetamin 5-325 mg (Hydrocodone/Acetaminophen) 1 Each Tablet 1 Each PO PRN Q6HRS PRN Aspirin 81 Mg Tab.chew 1 Tab PO DAILY Tradjenta (Linagliptin) 5 Mg Tablet 5 Mg PO DAILY Diphenhydramine Hcl 50 Mg Capsule 1 Cap PO PRN Magnesium (Magnesium Oxide) 400 Mg Capsule 400 Mg PO DAILY Calcium Carbonate 500 Mg Tablet 500 Mg PO BID Keppra (Levetiracetam) 1,000 Mg Tablet 1 Tab PO BID Tylenol (Acetaminophen) 325 Mg Tablet 650 Mg PO PRN Q6HRS PRN Allergies Allergies: Coded Allergies: iodine (Verified Allergy, Severe, THROAT SWELLING, 09/24/18) lisinopril (Verified Allergy, Severe, 09/24/18) Fish Containing Products (Verified Allergy, Intermediate, 09/24/18) Penicillins (Verified Allergy, Intermediate, SEE COMMENT, 09/24/18) Tolerates meropenem and Cephalosporins piperacillin (Verified Allergy, Intermediate, Hives, 09/24/18) Tolerates meropenem tazobactam (Verified Allergy, Intermediate, 09/24/18) ROS Review of System As per HPI Physical Exam Physical Exam GEN.: No apparent distress. HEENT: OM moist NECK: Supple, no JVD LUNGS: Clear to auscultation HEART: RRR, S1, S2 present. ABDOMEN: Soft, nontender. Obese EXTREMITIES: Right foot with transmetatarsal amputation with bleeding and clean dry intact dressing NEUROLOGIC: Grossly Normal SKIN: No ulcerations or rashes No Henry Vital Signs Vital Signs Date Time Temp Pulse Resp B/P (MAP) Pulse Ox O2 Delivery O2 Flow Rate FiO2 5/13/19 11:00 97.3 92 18 150/67 (94) 98 Room Air 97.3 Assessment & Plan ESRD- On HD TTS Currently No indication for HD Tomorrow as per Schedule Non compliance Anemia- Hgb Low but stable > 7 Aranesp as per protocol Misses HD treatments Status post right transmetatarsal amputation with wound VAC failure and bleeding orthopedics consulted HTN- Home Antihypertensives Labs Labs Laboratory Tests Test 12/22/18 20:22 12/22/18 23:45 12/23/18 06:29 12/23/18 08:04 White Blood Count 4.8 x10^3/uL (4.0-11.0) Red Blood Count 2.67 x10^6/uL (4.30-5.70) Hemoglobin 7.5 g/dL (13.0-17.5) Hematocrit 23.4 % (39.0-53.0) Mean Corpuscular Volume 88 fL (79-100) Mean Corpuscular Hemoglobin 28 pg (25-35) Mean Corpuscular Hemoglobin Concent 32 g/dL (31-37) Red Cell Distribution Width 16.6 % (11.5-14.5) Platelet Count 175 x10^3/uL (140-400) Neutrophils (%) (Auto) 68 % (31-73) Lymphocytes (%) (Auto) 15 % (24-48) Monocytes (%) (Auto) 10 % (0-9) Eosinophils (%) (Auto) 6 % (0-3) Basophils (%) (Auto) 1 % (0-3) Neutrophils # (Auto) 3.2 x10^3uL (1.8-7.7) Lymphocytes # (Auto) 0.7 x10^3/uL (1.0-4.8) Monocytes # (Auto) 0.5 x10^3/uL (0.0-1.1) Eosinophils # (Auto) 0.3 x10^3/uL (0.0-0.7) Basophils # (Auto) 0.0 x10^3/uL (0.0-0.2) Prothrombin Time 14.1 SEC (11.7-14.0) Prothromb Time International Ratio 1.1 (0.8-1.1) Sodium Level 138 mmol/L (136-145) Potassium Level 4.2 mmol/L (3.5-5.1) Chloride Level 99 mmol/L (98-107) Carbon Dioxide Level 31 mmol/L (21-32) Anion Gap 8 (6-14) Blood Urea Nitrogen 51 mg/dL (8-26) Creatinine 5.2 mg/dL (0.7-1.3) Estimated GFR (Cockcroft-Gault) 14.1 BUN/Creatinine Ratio 10 (6-20) Glucose Level 197 mg/dL (70-99) Calcium Level 9.0 mg/dL (8.5-10.1) Total Bilirubin 0.4 mg/dL (0.2-1.0) Aspartate Amino Transf (AST/SGOT) 17 U/L (15-37) Alanine Aminotransferase (ALT/SGPT) 10 U/L (16-63) Alkaline Phosphatase 57 U/L (46-116) Troponin I Quantitative < 0.017 ng/mL (0.000-0.055) < 0.017 ng/mL (0.000-0.055) 0.023 ng/mL (0.000-0.055) NC-Ltc-Y-Type Natriuretic Peptide 7846 pg/mL (0-124) Total Protein 8.1 g/dL (6.4-8.2) Albumin 2.5 g/dL (3.4-5.0) Albumin/Globulin Ratio 0.4 (1.0-1.7) Glucose (Fingerstick) 140 mg/dL (70-99) Test 12/23/18 12:12 Glucose (Fingerstick) 181 mg/dL (70-99) Laboratory Tests Test 12/22/18 20:22 12/22/18 23:45 12/23/18 06:29 12/23/18 08:04 White Blood Count 4.8 x10^3/uL (4.0-11.0) Red Blood Count 2.67 x10^6/uL (4.30-5.70) Hemoglobin 7.5 g/dL (13.0-17.5) Hematocrit 23.4 % (39.0-53.0) Mean Corpuscular Volume 88 fL (79-100) Mean Corpuscular Hemoglobin 28 pg (25-35) Mean Corpuscular Hemoglobin Concent 32 g/dL (31-37) Red Cell Distribution Width 16.6 % (11.5-14.5) Platelet Count 175 x10^3/uL (140-400) Neutrophils (%) (Auto) 68 % (31-73) Lymphocytes (%) (Auto) 15 % (24-48) Monocytes (%) (Auto) 10 % (0-9) Eosinophils (%) (Auto) 6 % (0-3) Basophils (%) (Auto) 1 % (0-3) Neutrophils # (Auto) 3.2 x10^3uL (1.8-7.7) Lymphocytes # (Auto) 0.7 x10^3/uL (1.0-4.8) Monocytes # (Auto) 0.5 x10^3/uL (0.0-1.1) Eosinophils # (Auto) 0.3 x10^3/uL (0.0-0.7) Basophils # (Auto) 0.0 x10^3/uL (0.0-0.2) Prothrombin Time 14.1 SEC (11.7-14.0) Prothromb Time International Ratio 1.1 (0.8-1.1) Sodium Level 138 mmol/L (136-145) Potassium Level 4.2 mmol/L (3.5-5.1) Chloride Level 99 mmol/L (98-107) Carbon Dioxide Level 31 mmol/L (21-32) Anion Gap 8 (6-14) Blood Urea Nitrogen 51 mg/dL (8-26) Creatinine 5.2 mg/dL (0.7-1.3) Estimated GFR (Cockcroft-Gault) 14.1 BUN/Creatinine Ratio 10 (6-20) Glucose Level 197 mg/dL (70-99) Calcium Level 9.0 mg/dL (8.5-10.1) Total Bilirubin 0.4 mg/dL (0.2-1.0) Aspartate Amino Transf (AST/SGOT) 17 U/L (15-37) Alanine Aminotransferase (ALT/SGPT) 10 U/L (16-63) Alkaline Phosphatase 57 U/L (46-116) Troponin I Quantitative < 0.017 ng/mL (0.000-0.055) < 0.017 ng/mL (0.000-0.055) 0.023 ng/mL (0.000-0.055) FM-Brv-J-Type Natriuretic Peptide 8089 pg/mL (0-124) Total Protein 8.1 g/dL (6.4-8.2) Albumin 2.5 g/dL (3.4-5.0) Albumin/Globulin Ratio 0.4 (1.0-1.7) Glucose (Fingerstick) 140 mg/dL (70-99) Test 12/23/18 12:12 Glucose (Fingerstick) 181 mg/dL (70-99) Review All relevant outside records, renal labs, imaging studies, telemetry/EKG's were reviewed. MINA RICHARDSON MD December 23, 2018 13:10
[2018-12-23 15:00] VITALS: BP 145/65
[2018-12-23] MEDS: CALCIUM CARBONATE 500 MG TAB.CHEW PO PRN ×2 (15:46→23:22)
--- NOTE | 2018-12-23 16:09 | NUR ---
Wound Care: Consult to eval and treat R TMA open surgical wound. Removed pressure dressing applied in ED, wound pictured and measured (see detailed assessment). Dark red clot noted at medial aspect of wound, no active bleeding at this time. Cleansed and covered with aquacel AG and ABD. Will follow up 12/24 following consult by vascular to see if any surgical interventions are needed. No other open areas on head to toe inspection.
[2018-12-23 19:40] VITALS: BP 145/68
[2018-12-23] MEDS ORDERED: ATORVASTATIN CALCIUM 40 MG TABLET. PO SCH (21:00)
[2018-12-23 23:00] VITALS: BP 164/72
[2018-12-24 03:15] VITALS: BP 140/65
[2018-12-24] MEDS: diphenhydrAMINE HCL 25 MG CAPSULE PO PRN (03:34)
[2018-12-24] MEDS: LEVOTHYROXINE 175 MCG TABLET PO SCH (05:33)
--- NOTE | 2018-12-24 05:37 | NUR ---
Pt complained of 9/10 crushing midsternal chest pain with areas of radiating. 12 lead EKG ordered. Pt now states pain has subsided, 5/10 and has moved "down" pointing to upper abdomen. Pt is sleeping between the frequent reassessments.
--- NOTE | 2018-12-24 06:47 | EKG ---
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
[2018-12-24 07:00] VITALS: BP 126/59
[2018-12-24] MEDS ORDERED: IV NORMAL SALINE 1000ML BAG 1,000 ML IV PRN ×2 (07:46)
[2018-12-24] MEDS ORDERED: ALBUMIN HUMAN 25% 200 ML IV PRN (08:00)
[2018-12-24] MEDS ORDERED: DIALYSIS PATIENT. MC PRN ×2 (08:00)
[2018-12-24] MEDS ORDERED: 0.9 % SODIUM CHLORIDE 10 ML DISP.SYRIN. IV PRN ×2 (08:00)
[2018-12-24] MEDS: BUDESONIDE 0.5 MG/2 ML NEBU. NEB SCH (09:28)
--- NOTE | 2018-12-24 10:07 | PDOC ---
SUBJECTIVE ROS Stable, seen on hD As per RN note- Pt complained of 9/10 crushing midsternal chest pain with areas of radiating this am No CP currently, sleeping comfortably OBJECTIVE Vital Signs Vital Signs Date Time Temp Pulse Resp B/P (MAP) Pulse Ox O2 Delivery O2 Flow Rate FiO2 12/24/18 09:28 95 Room Air 12/24/18 07:00 98.3 82 19 126/59 (81) 98.3 I & 0 Intake and Output 12/24/18 07:00 Intake Total 650 ml Output Total 526 ml Balance 124 ml Intake Oral 600 ml IV Total 50 ml Output Urine Total 525 ml Stool Total 1 ml PHYSICAL EXAM Physical Exam GEN.: No apparent distress. HEENT: OM moist NECK: Supple, no JVD LUNGS: Clear to auscultation HEART: RRR, S1, S2 present. ABDOMEN: Soft, nontender. 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 Non compliance Anemia- Hgb Low but stable > 7 Aranesp as per protocol Misses HD treatments Status post right transmetatarsal amputation with wound VAC failure and bleeding Vascular consulted HTN- Home Antihypertensives COMMENT/RELEVANT DATA Meds Current Medications Medications (Trade) Dose Ordered Sig/[place] Start Time Stop Time Status Last Admin Dose Admin Acetaminophen (Tylenol) 650 mg PRN Q6HRS PRN 12/23/18 00:00 Acetaminophen/ Hydrocodone Bitart (Lortab 5/325) 1 tab PRN Q6HRS PRN 12/23/18 00:00 Albumin Human 200 ml @ 200 mls/hr 1X PRN PRN 12/24/18 08:00 12/24/18 13:59 Albuterol Sulfate (Ventolin Neb Soln) 2.5 mg PRN Q6HRS PRN 12/23/18 00:15 Atorvastatin Calcium (Lipitor) 40 mg QHS 12/23/18 21:00 12/23/18 23:14 40 MG Budesonide (Pulmicort) 0.5 mg RTBID 12/23/18 08:00 12/24/18 09:28 0.5 MG Calcium Carbonate/ Glycine (Oscal) 500 mg BID 12/23/18 09:00 12/23/18 23:14 500 MG Calcium Carbonate/ Glycine (Tums) 500 mg PRN Q4HRS PRN 12/23/18 00:00 12/23/18 23:22 500 MG Carvedilol (Coreg) 3.125 mg BIDWMEALS 12/23/18 08:00 12/23/18 17:47 3.125 MG Diphenhydramine HCl (Benadryl) 50 mg PRN Q6HRS PRN 12/22/18 23:55 12/24/18 03:34 50 MG Famotidine (Pepcid) 20 mg Q48H 12/25/18 09:00 Gelatin (Gelfoam Size 100) 1 each 1X ONCE 12/22/18 20:30 12/22/18 20:31 DC 12/22/18 20:39 1 EACH Info (PHARMACY MONITORING -- do not chart) 1 each PRN DAILY PRN 12/24/18 08:00 UNV Lactobacillus Rhamnosus (Culturelle) 1 cap BID 12/23/18 09:00 12/23/18 23:13 1 CAP Levetiracetam (Keppra) 1,000 mg BID 12/23/18 09:00 12/23/18 23:13 1,000 MG Levothyroxine Sodium (Synthroid) 175 mcg DAILY06 12/23/18 06:00 12/24/18 05:33 175 MCG Linagliptin (Tradjenta) 5 mg DAILY 12/23/18 09:00 12/23/18 08:28 5 MG Magnesium Oxide (Magnesium Oxide) 400 mg DAILY 12/23/18 09:00 12/23/18 08:28 400 MG Meropenem 500 mg/ Sodium Chloride 50 ml @ 100 mls/hr DAILY 12/23/18 09:00 12/23/18 08:27 100 MLS/HR Non-Formulary Medication (Meropenem (Merrem)) 500 mg DAILY 12/23/18 09:00 UNV Ondansetron HCl (Zofran Odt) 4 mg PRN Q8HRS PRN 12/23/18 09:30 12/23/18 17:46 4 MG Oxycodone/ Acetaminophen (Percocet 10/325) 1 tab PRN QID PRN 12/23/18 00:00 12/23/18 08:29 1 TAB Pharmacy Consult (C.diff Med Screen By Rx) 1 each 1X ONCE 12/22/18 23:30 12/22/18 23:31 DC Pramipexole Dihydrochloride (miraPEX) 0.25 mg DAILY 12/23/18 09:00 12/23/18 08:27 0.25 MG Sodium Chloride 1,000 ml @ 400 mls/hr Q2H30M PRN 12/24/18 07:46 12/24/18 19:45 Sodium Chloride (Normal Saline Flush) 10 ml 1X PRN PRN 12/24/18 08:00 12/25/18 07:59 Zolpidem Tartrate (Ambien) 5 mg PRN QHS PRN 12/23/18 00:00 12/23/18 23:13 5 MG Lab Laboratory Tests Test 12/23/18 12:12 12/23/18 16:31 12/23/18 20:38 12/24/18 07:14 Glucose (Fingerstick) 181 mg/dL (70-99) 108 mg/dL (70-99) 128 mg/dL (70-99) 108 mg/dL (70-99) Results All relevant outside records, renal labs, imaging studies, telemetry/EKG's were reviewed. MINA RICHARDSON MD December 24, 2018 10:07
--- NOTE | 2018-12-24 12:26 | NUR ---
SS following up with discharge planning. Pt declined PT/OT services. Current discharge disposition is home with home healthcare at this time. SS will await discharge orders and will proceed accordingly.
[2018-12-24 13:25] VITALS: BP 131/74
[2018-12-24] MEDS: CARVEDILOL 3.125 MG TABLET. PO SCH (13:42)
[2018-12-24] MEDS: PRAMIPEXOLE 0.25 MG TABLET. PO SCH (13:42)
[2018-12-24] MEDS: MAGNESIUM OXIDE 400 MG TABLET PO SCH (13:42)
[2018-12-24] MEDS: CALCIUM CARBONATE 500 MG TABLET PO SCH (13:42)
[2018-12-24] MEDS: LINAGLIPTIN 5 MG TABLET PO SCH (13:42)
[2018-12-24] MEDS: LACTOBACILLUS RHAMNOSUS GG 1 CAPSULE. PO SCH (13:42)
[2018-12-24] MEDS: levETIRAcetam 500 MG TABLET PO SCH (13:42)
[2018-12-24] MEDS: MEROPENEM 500 MG in IV NORMAL SALINE 50ML 50 ML IV SCH (13:43)
--- NOTE | 2018-12-24 14:09 | SNU/HH DC ---
DISCHARGE WITH HOME HEALTH DISCHARGE INFORMATION: Final Diagnosis: Problems Medical Problems: (1) Chest pain Status: Acute (2) End stage renal disease Status: Acute (3) Postoperative complication Status: Acute Condition on Discharge: Stable CODE STATUS: Code Status: Full HOME HEALTH: Face to Face: I certify this patient is under my care and that I, or a nurse practitioner or physician's medical assistant supervisor working with me, had a face to face encounter that meets the physician face to face encounter requirements with this patient on []. Medical Complications: Other (esrd) RN For Eval/Treatment: Yes Physical Therapy For: Evalulation/Treatment Occupational Therapy For: Evaluation/Treatment Speech Language Pathology For: Evaluation/Treatment Home Health Aide For: Self-care DIAMOND POWDER TECHNICIAN For: Community Resources Pt Meets Homebound Status: Unsteady balance w/ amb, POST DISCHARGE ORDERS: Activity Instructions for Disc: Activity as tolerated Weight Bearing Status after Di: As tolerated Bathing Instructions: Shower-keep dressing dry DIET AFTER DISCHARGE: Renal Wound/Incision Care: Change dressing CHECKS AFTER DISCHARGE: Checks after discharge: Check blood press - daily, Check blood sugar, ac/hs, Check your Temp as needed, Weigh Yourself Daily FOLLOW-UP: DC TO SNF LABS: Merrem 5 weeks, f/u Dr. Mcclure, will need labs TREATMENT/EQUIPMENT ORDERS: Adaptive Equipment Issued: None CERTIFICATION STATEMENT: Certification Statement: Certification Statement: Based on the above finding, I certify that this patient is confined to the home and needs intermittent fpc care, physical therapy and/or speech therapy, or continues to need occupational therapy.~ This patient is under my care, and I have initiated the establishment of the plan of care.~ This patient will be followed by myself or a community physician who will periodically review the plan of care. Home Meds Active Scripts Isosorbide Mononitrate (ISOSORBIDE MONONITRATE ER) 30 Mg Tab.er.24h, 30 MG PO DAILY for angina for 30 Days, #30 TAB.SR 3 Refills Prov:SUGAR BEAL MD 12/03/18 Carvedilol (COREG ) 3.125 Mg Tablet, 3.125 MG PO BIDWMEALS for heart failure, #60 TAB 4 Refills Prov:SUGAR EBAL MD 12/03/18 Atorvastatin Calcium (LIPITOR) 80 Mg Tablet, 40 MG PO HS for FOR CHOLESTEROL, #30 TAB 3 Refills Prov:SUGAR BEAL MD 12/03/18 Fluticasone Propionate (FLOVENT 110MCG HFA) 12 Gm Aer.w.adap, 2 PUFF IH BID for asthma, #1 INHALER 3 Refills Prov:SUGAR BEAL MD 12/03/18 Zolpidem Tartrate (ZOLPIDEM TARTRATE) 5 Mg Tablet, 1 TAB PO QHS PRN for sleep, #30 TAB 1 Refill Prov:SUGAR BEAL MD 12/03/18 Pramipexole Di-Hcl (MIRAPEX) 0.25 Mg Tablet, 1 TAB PO DAILY for restless leg, #30 TAB 4 Refills Prov:SUGAR BEAL MD 12/03/18 Famotidine (FAMOTIDINE) 20 Mg Tablet, 20 MG PO HS for GERD, #30 TAB 3 Refills Prov:SUGAR BEAL MD 12/03/18 Albuterol Sulfate (VENTOLIN HFA INHALER) 18 Gm Hfa.aer.ad, 1 PUFF INH Q6HRS PRN for SHORTNESS OF BREATH, #1 INHALER 0 Refills Prov:SUGAR BEAL MD 12/03/18 Oxycodone Hcl/Acetaminophen (ENDOCET 10-325 MG TABLET) 1 Each Tablet, 1 TAB PO QID PRN for PAIN, #50 TAB Prov:SUGAR BEAL MD 12/03/18 Levothyroxine Sodium (LEVOTHYROXINE SODIUM) 175 Mcg Tablet, 175 MCG PO DAILYAC for THYROID SUPPLEMENT, #30 TAB 4 Refills Prov:SUGAR BEAL MD 12/03/18 Meropenem (MERREM) 500 Mg Vial, 500 MG IV DAILY for foot infection, #35 EACH Prov:SUGAR BEAL MD 12/03/18 Reported Medications Calcium Carbonate (TUMS) 200 Mg Tab.chew, 200 MG PO PRN Q4HRS PRN for INDIGESTION, TAB.CHEW 12/22/18 Hydrocodone/Acetaminophen (Hydrocodone-Acetamin 5-325 mg) 1 Each Tablet, 1 EACH PO PRN Q6HRS PRN for PAIN, #30 TAB 0 Refills 12/18/18 Aspirin (ASPIRIN) 81 Mg Tab.chew, 1 TAB PO DAILY for CAD, #30 TAB 3 Refills 12/18/18 Linagliptin (TRADJENTA) 5 Mg Tablet, 5 MG PO DAILY for TYPE 2 DIABETES, TAB 12/16/18 Diphenhydramine Hcl (DIPHENHYDRAMINE HCL) 50 Mg Capsule, 1 CAP PO PRN for itching, #30 CAP 1 Refill 12/16/18 Magnesium Oxide (MAGNESIUM) 400 Mg Capsule, 400 MG PO DAILY for supplement, CAP 06/28/18 Calcium Carbonate (CALCIUM CARBONATE) 500 Mg Tablet, 500 MG PO BID for supplement, TAB 06/28/18 Levetiracetam (KEPPRA) 1,000 Mg Tablet, 1 TAB PO BID, #60 TAB 5 Refills 04/14/18 Acetaminophen (TYLENOL) 325 Mg Tablet, 650 MG PO PRN Q6HRS PRN for FEVER, TAB 07/31/17 VIC TIWARI III DO December 24, 2018 14:09
--- NOTE | 2018-12-24 14:42 | NUR ---
SS following up with discharge planning. Discharge orders received for home healthcare. SS phoned and faxed discharge orders to [facility], ; fax [phone]. Pt will discharge today and return to home via [facility] ambulance at 1530. Pt, pt's spouse, and pt's RN notified.
--- NOTE | 2018-12-24 15:01 | PDOC3 ---
[facility]-Dis[facility] Summary Date of Admission: Date of Admission: December 22, 2018 Date of Discharge: Date of Discharge: December 24, 2018 Admission Diagnosis: Admitting Diagnosis: Bleeding right foot transmetatarsal amputation chronic wound ESRD Severe noncompliance with dialysis Discharge Diagnosis: Discharge Diagnosis: Right foot transmetatarsal wound (chronic) End-stage renal disease Severe noncompliance Consults: Consults: Nephrology and orthopedics Procedures: Procedures: Dialysis and wound care Hospital Course: Hospital Course: Patient is a pleasant middle-aged male well-known to our service He is severely noncompliant with his dialysis and his wound appointments Basically his wound VAC malfunction because he ran out of equipment I think this may have been his fall but he states it was home health's fault Basically we admitted him and did aggressive wound care at the wound care team seen got his wound VAC corrected did some dialysis I saw this and examined him this morning His heart tones was normal His lungs were clear His wounds were clean we plan to discharge Should be noted that I spoke to patient extensively about being compliant with his dialysis I called his and spoke with her about is well I try to call transportation company but I really didn't get much of an answer their it's mostly just voicemail Disposition: Disposition/Orders: D/C to Home Activity: Activity: Resume previous activity Diet: Diet: Renal Medications: Home Meds Active Scripts Isosorbide Mononitrate (ISOSORBIDE MONONITRATE ER) 30 Mg Tab.er.24h, 30 MG PO DAILY for angina for 30 Days, #30 TAB.SR 3 Refills Prov:SUGAR BEAL MD 12/03/18 Carvedilol (COREG ) 3.125 Mg Tablet, 3.125 MG PO BIDWMEALS for heart failure, #60 TAB 4 Refills Prov:SUGAR BEAL MD 12/03/18 Atorvastatin Calcium (LIPITOR) 80 Mg Tablet, 40 MG PO HS for FOR CHOLESTEROL, #30 TAB 3 Refills Prov:SUGAR BEAL MD 12/03/18 Fluticasone Propionate (FLOVENT 110MCG HFA) 12 Gm Aer.w.adap, 2 PUFF IH BID for asthma, #1 INHALER 3 Refills Prov:SUGAR BEAL MD 12/03/18 Zolpidem Tartrate (ZOLPIDEM TARTRATE) 5 Mg Tablet, 1 TAB PO QHS PRN for sleep, #30 TAB 1 Refill Prov:SUGAR BEAL MD 12/03/18 Pramipexole Di-Hcl (MIRAPEX) 0.25 Mg Tablet, 1 TAB PO DAILY for restless leg, #30 TAB 4 Refills Prov:SUGAR BEAL MD 12/03/18 Famotidine (FAMOTIDINE) 20 Mg Tablet, 20 MG PO HS for GERD, #30 TAB 3 Refills Prov:SUGAR BEAL MD 12/03/18 Albuterol Sulfate (VENTOLIN HFA INHALER) 18 Gm Hfa.aer.ad, 1 PUFF INH Q6HRS PRN for SHORTNESS OF BREATH, #1 INHALER 0 Refills Prov:SUGAR BEAL MD 12/03/18 Oxycodone Hcl/Acetaminophen (ENDOCET 10-325 MG TABLET) 1 Each Tablet, 1 TAB PO QID PRN for PAIN, #50 TAB Prov:SUGAR BEAL MD 12/03/18 Levothyroxine Sodium (LEVOTHYROXINE SODIUM) 175 Mcg Tablet, 175 MCG PO DAILYAC for THYROID SUPPLEMENT, #30 TAB 4 Refills Prov:SUGAR BEAL MD 12/03/18 Meropenem (MERREM) 500 Mg Vial, 500 MG IV DAILY for foot infection, #35 EACH Prov:SUGAR BEAL MD 12/03/18 Reported Medications Calcium Carbonate (TUMS) 200 Mg Tab.chew, 200 MG PO PRN Q4HRS PRN for INDIGESTION, TAB.CHEW 12/22/18 Hydrocodone/Acetaminophen (Hydrocodone-Acetamin 5-325 mg) 1 Each Tablet, 1 EACH PO PRN Q6HRS PRN for PAIN, #30 TAB 0 Refills 12/18/18 Aspirin (ASPIRIN) 81 Mg Tab.chew, 1 TAB PO DAILY for CAD, #30 TAB 3 Refills 12/18/18 Linagliptin (TRADJENTA) 5 Mg Tablet, 5 MG PO DAILY for TYPE 2 DIABETES, TAB 12/16/18 Diphenhydramine Hcl (DIPHENHYDRAMINE HCL) 50 Mg Capsule, 1 CAP PO PRN for itching, #30 CAP 1 Refill 12/16/18 Magnesium Oxide (MAGNESIUM) 400 Mg Capsule, 400 MG PO DAILY for supplement, CAP 06/28/18 Calcium Carbonate (CALCIUM CARBONATE) 500 Mg Tablet, 500 MG PO BID for supplement, TAB 06/28/18 Levetiracetam (KEPPRA) 1,000 Mg Tablet, 1 TAB PO BID, #60 TAB 5 Refills 04/14/18 Acetaminophen (TYLENOL) 325 Mg Tablet, 650 MG PO PRN Q6HRS PRN for FEVER, TAB 07/31/17 Scheduled Aspirin (Aspirin), 1 TAB PO DAILY, (Reported) Atorvastatin Calcium (Lipitor), 40 MG PO HS Calcium Carbonate (Calcium Carbonate), 500 MG PO BID, (Reported) Carvedilol (Coreg ), 3.125 MG PO BIDWMEALS Diphenhydramine Hcl (Diphenhydramine Hcl), 1 CAP PO PRN, (Reported) Famotidine (Famotidine), 20 MG PO HS Fluticasone Propionate (Flovent 110MCG Hfa), 2 PUFF IH BID Isosorbide Mononitrate (Isosorbide Mononitrate Er), 30 MG PO DAILY Levetiracetam (Keppra), 1 TAB PO BID, (Reported) Levothyroxine Sodium (Levothyroxine Sodium), 175 MCG PO DAILYAC Linagliptin (Tradjenta), 5 MG PO DAILY, (Reported) Magnesium Oxide (Magnesium), 400 MG PO DAILY, (Reported) Meropenem (Merrem), 500 MG IV DAILY Pramipexole Di-Hcl (Mirapex), 1 TAB PO DAILY Scheduled PRN Acetaminophen (Tylenol), 650 MG PO PRN Q6HRS PRN for FEVER, (Reported) Albuterol Sulfate (Ventolin Hfa Inhaler), 1 PUFF INH Q6HRS PRN for SHORTNESS OF BREATH Calcium Carbonate (Tums), 200 MG PO PRN Q4HRS PRN for INDIGESTION, (Reported) Hydrocodone/Acetaminophen (Hydrocodone-Acetamin 5-325 mg), 1 EACH PO PRN Q6HRS PRN for PAIN, (Reported) Oxycodone Hcl/Acetaminophen (Endocet 10-325 Mg Tablet), 1 TAB PO QID PRN for PAIN Zolpidem Tartrate (Zolpidem Tartrate), 1 TAB PO QHS PRN for sleep Total Time: Total Time: 39 minutes VIC TIWARI III DO December 24, 2018 15:01
[2018-12-24 15:25] VITALS: BP 120/56
--- NOTE | 2018-12-24 17:00 | NUR ---
Discharge Note: LACIE WILKES Discharge instructions and discharge home medications reviewed with Patient and a copy given. All questions have been answered and understanding verbalized.
[2018-12-24] MEDS ORDERED: DARBEPOETIN ALFA 100 MCG/0.5 ML DISP.SYRIN. SQ SCH (21:00)
[2018-12-25] MEDS ORDERED: FAMOTIDINE 20 MG TABLET. PO SCH (09:00)
--- NOTE | 2018-12-25 14:20 | NUR ---
Wound Care Received call from CRISTI Lemus, stating pt was leaving today. Instructed Allan to apply Aquacel AG, ABD and kerlix and RN will reapply wound vac when they see pt tomorrow, as pt did not bring a canister, and hospital canisters are not compatible with pt's wound vac, Allan v/u. Pt to f/u in [facility] on Sunday. Addendum: 12/25/18 at 1652 by Lizette Nava RN Late entry for 12/24/18 at 1420.
== END 2018-12-24 17:00 | disposition home health service (06) | DRG 564 ==
LOC: ER 19:16 → 2 NORTH 21:42
PROVIDERS: ADMIT Internal Medicine; ATTEND Internal Medicine
PROC: 5A1D70Z Performance of Urinary Filtration, Intermittent, Less than 6 Hours Per Day (ICD-10-PCS; principal; 2018-12-24)
DX: T87.89 Other complications of amputation stump (principal); N18.6 End stage renal disease; I13.2 Hypertensive heart and chronic kidney disease with heart failure and with stage 5 chronic kidney disease, or end stage renal disease; I25.2 Old myocardial infarction; I25.10 Atherosclerotic heart disease of native coronary artery without angina pectoris; I50.9 Heart failure, unspecified; I48.91 Unspecified atrial fibrillation; E78.5 Hyperlipidemia, unspecified; J44.9 Chronic obstructive pulmonary disease, unspecified; E11.42 Type 2 diabetes mellitus with diabetic polyneuropathy; K57.90 Diverticulosis of intestine, part unspecified, without perforation or abscess without bleeding; F32.9 Major depressive disorder, single episode, unspecified; M19.90 Unspecified osteoarthritis, unspecified site; M06.9 Rheumatoid arthritis, unspecified; E03.9 Hypothyroidism, unspecified; Z96.659 Presence of unspecified artificial knee joint; D64.9 Anemia, unspecified; E11.22 Type 2 diabetes mellitus with diabetic chronic kidney disease; F03.90 Unspecified dementia, unspecified severity, without behavioral disturbance, psychotic disturbance, mood disturbance, and anxiety; Y83.8 Other surgical procedures as the cause of abnormal reaction of the patient, or of later complication, without mention of misadventure at the time of the procedure; Z86.73 Personal history of transient ischemic attack (TIA), and cerebral infarction without residual deficits; Z95.5 Presence of coronary angioplasty implant and graft; Z99.2 Dependence on renal dialysis; Z88.8 Allergy status to other drugs, medicaments and biological substances; Z88.1 Allergy status to other antibiotic agents; Z91.041 Radiographic dye allergy status; Z88.0 Allergy status to penicillin; Z91.013 Allergy to seafood; Z91.19 Patient's noncompliance with other medical treatment and regimen; Z91.15 Patient's noncompliance with renal dialysis; F41.9 Anxiety disorder, unspecified; Z83.3 Family history of diabetes mellitus; Z82.49 Family history of ischemic heart disease and other diseases of the circulatory system
CPT/HCPCS: 36415; 71045; 80053; 82962; 83880; 84484; 85025; 85610; 93005; 94640; 94760; J2185; J7626; Q0162; Q0163; 99285-25

== ENCOUNTER 2019-01-02 10:38 | Inpatient (IN) | payer OTHER ==
[~2019-01-02] VITALS: Ht 198.1 cm; Wt 143.0 kg
[~2019-01-02 10:38] MED LIST changes: +CALC200T3 PO
--- NOTE | 2019-01-02 10:54 | PHYS DOC ---
Past Medical History Past Medical History: Asthma, CVA, Diabetes-Type II, Hypertension, MT, Pneumonia, Renal Failure Additional Past Medical Histor: 8 MIs, 8 CVAs, multiple stents Past Surgical History: Angioplasty, Other Additional Past Surgical Histo: HD SHUNT,TOE AMPUTATION,RIGHT ARM SX,RIGHT ARM FX,SCROTAL SX,HEART STENT Alcohol Use: None Drug Use: None Adult General Chief Complaint Chief Complaint: CHEST PAIN HPI HPI Patient is a 53 year old male patient with history of chronic renal failure on hemodialysis and multiple medical problems who in by EMS because of chest pain since last night. Patient complains of constant left-sided chest pain since last night with shortness of breath and radiation to his shoulder. Patient also missed dialysis for the last 1 week and complaining of generalized weakness. Patient had recent hospitalization with right diabetic foot ulcer and currently has PICC line and taking antibiotic. Review of Systems Review of Systems Constitutional: Denies fever or chills [] Eyes: Denies change in visual acuity, redness, or eye pain [] HENT: Denies nasal congestion or sore throat [] Respiratory: Denies cough, reports shortness of breath [] Cardiovascular: No additional information not addressed in HPI [] GI: Denies abdominal pain, nausea, vomiting, bloody stools or diarrhea [] : Denies dysuria or hematuria [] Musculoskeletal: Denies back pain or joint pain [] Integument: Denies rash or skin lesions [] Neurologic: Denies headache, focal weakness or sensory changes [] Endocrine: Denies polyuria or polydipsia [] All other systems were reviewed and found to be within normal limits, except as documented in this note. Allergies Allergies Allergies Coded Allergies Type Severity Reaction Last Updated Verified iodine Allergy Severe THROAT SWELLING 09/24/18 Yes lisinopril Allergy Severe 09/24/18 Yes Fish Containing Products Allergy Intermediate 09/24/18 Yes Penicillins Allergy Intermediate SEE COMMENT 09/24/18 Yes piperacillin Allergy Intermediate Hives 09/24/18 Yes tazobactam Allergy Intermediate 09/24/18 Yes Physical Exam Physical Exam Constitutional: Well nourished, no acute distress, non-toxic appearance. [] HENT: Normocephalic, atraumatic, oropharynx moist. Eyes: PERRLA, EOMI, conjunctiva normal, no discharge. [] Neck: Normal range of motion, no tenderness, supple, no stridor. [] Cardiovascular:Heart rate regular rhythm, no murmur [] Lungs & Thorax: Bilateral breath sounds clear to auscultation [] Abdomen: Bowel sounds normal, soft, no tenderness, no masses, no pulsatile mass es. [] Skin: Warm, dry, no erythema, no rash. [] Back: No tenderness, no CVA tenderness. [] Extremities: Left [id number] amputation, right surgical boot in place, right upper extremity PICC line in place, Neurologic: Alert and oriented X 3, normal motor function, normal sensory function, no focal deficits noted. [] Psychologic: Affect normal, judgement normal, mood normal. [] Current Patient Data Vital Signs Vital Signs Date Time Temp Pulse Resp B/P (MAP) Pulse Ox O2 Delivery O2 Flow Rate FiO2 01/02/19 12:07 98 15 164/71 (102) 98 Room Air 01/02/19 10:49 98.8 98.8 Lab Values Laboratory Tests Test 01/02/19 10:49 White Blood Count 6.0 x10^3/uL (4.0-11.0) Red Blood Count 2.40 x10^6/uL (4.30-5.70) L Hemoglobin 7.0 g/dL (13.0-17.5) *L Hematocrit 21.3 % (39.0-53.0) L Mean Corpuscular Volume 89 fL (79-100) Mean Corpuscular Hemoglobin 29 pg (25-35) Mean Corpuscular Hemoglobin Concent 33 g/dL (31-37) Red Cell Distribution Width 16.1 % (11.5-14.5) H Platelet Count 176 x10^3/uL (140-400) Neutrophils (%) (Auto) 71 % (31-73) Lymphocytes (%) (Auto) 13 % (24-48) L Monocytes (%) (Auto) 9 % (0-9) Eosinophils (%) (Auto) 5 % (0-3) H Basophils (%) (Auto) 3 % (0-3) Neutrophils # (Auto) 4.3 x10^3uL (1.8-7.7) Lymphocytes # (Auto) 0.8 x10^3/uL (1.0-4.8) L Monocytes # (Auto) 0.5 x10^3/uL (0.0-1.1) Eosinophils # (Auto) 0.3 x10^3/uL (0.0-0.7) Basophils # (Auto) 0.2 x10^3/uL (0.0-0.2) Prothrombin Time 13.8 SEC (11.7-14.0) Prothrombin Time INR 1.1 (0.8-1.1) Sodium Level 142 mmol/L (136-145) Potassium Level 4.9 mmol/L (3.5-5.1) Chloride Level 107 mmol/L (98-107) Carbon Dioxide Level 23 mmol/L (21-32) Anion Gap 12 (6-14) Blood Urea Nitrogen 55 mg/dL (8-26) H Creatinine 5.7 mg/dL (0.7-1.3) H Estimated GFR (Cockcroft-Gault) 12.7 BUN/Creatinine Ratio 10 (6-20) Glucose Level 158 mg/dL (70-99) H Lactic Acid Level 0.6 mmol/L (0.4-2.0) Calcium Level 8.7 mg/dL (8.5-10.1) Magnesium Level 1.8 mg/dL (1.8-2.4) Total Bilirubin 0.3 mg/dL (0.2-1.0) Aspartate Amino Transferase (AST) 18 U/L (15-37) Alanine Aminotransferase (ALT) 10 U/L (16-63) L Alkaline Phosphatase 60 U/L (46-116) Creatine Kinase 210 U/L (39-308) Creatine Kinase MB (Mass) 2.3 ng/mL (0.0-3.6) Creatine Kinase MB Relative Index 1.1 % (0-4) Troponin I Quantitative 0.028 ng/mL (0.000-0.055) XB-Zmv-R-Type Natriuretic Peptide 88614 pg/mL (0-124) H Total Protein 7.4 g/dL (6.4-8.2) Albumin 2.5 g/dL (3.4-5.0) L Albumin/Globulin Ratio 0.5 (1.0-1.7) L Lipase 257 U/L (73-393) Laboratory Tests 01/02/19 10:49 Laboratory Tests 01/02/19 10:49 EKG EKG EKG interpreted by me. EKG at 1045 showed normal sinus rhythm at rate of 94, abnormal right superior axis deviation, incomplete right bundle-branch block, poor R-wave progress in anteroseptal leads, normal AR and QT intervals, poor R- wave practicing inferior leads, no acute ST and T-wave abnormalities. Radiology/Procedures Radiology/Procedures [facility] [address] [place] [address] IMAGING REPORT Signed PATIENT: BHAVYA WILKES ACCOUNT: [id number] : 1965 LOCATION: ER AGE: 53 SEX: M EXAM STATUS: PRE ER ORD. PHYSICIAN: MINH RUBIO MD REASON: chest pain since this am. PROCEDURE: PORTABLE CHEST 1V PORTABLE CHEST 1V Clinical indications: Chest pain since this a.m. COMPARISON: December 22, 2018. Findings: No acute lung infiltrate or pleural effusion or pulmonary edema or lung mass or pneumothorax is seen. The heart size, pulmonary vasculature, mediastinum and both andry are stable. Impression: No acute radiographic abnormality is seen. Electronically signed by: Pam Salazar MD (01/02/2019 11:19 AM) [facility] DICTATED and SIGNED BY: PAM SALAZAR MD DATE: 01/02/19 1119 Course & Med Decision Making Course & Med Decision Making Pertinent Labs and Imaging studies reviewed. (See chart for details) Evaluation of patient in ER showed 53-year-old male patient brought in by EMS because of chest pain and missing dialysis. Patient was a sleeping most the time and was snoring. Patient did not have elevation of potassium. Plan to admit patient with diagnosis of acute chest pain and providing dialysis. Patient requiring admission for further evaluation and treatment. Discussed with Dr. Guerin who is in agreement with admission. Discussed findings and plan with patient and family, who acknowledge understanding and agreement. Dragon Disclaimer Dragon Disclaimer This electronic medical record was generated, in whole or in part, using a voice recognition dictation system. Departure Departure Impression: Primary Impression: Acute chest pain Additional Impressions: Anemia Missed dialysis ESRD (end stage renal disease) on dialysis TYPE 2 DIABETES MELLITUS WITH FOOT ULCER Elevated brain natriuretic peptide (BNP) level Disposition: ADMITTED INPATIENT (at 1141) Admitting Physician: Franky Guerin (accepted admission at 1139) Condition: IMPROVED Referrals: MARIA ISABEL LOPEZ DO (PCP) Problem Qualifiers Additional Impressions: Anemia Anemia type: unspecified type Qualified Codes: D64.9 - Anemia, unspecified MINH RUBIO MD January 02, 2019 10:54
[2019-01-02 11:08] LABS: BASO # 0.2 x10^3/uL (0.0-0.2); BASO % 3 % (0-3); EOS # 0.3 x10^3/uL (0.0-0.7); EOS % 5 % (0-3); HEMATOCRIT 21.3 % (39.0-53.0); LYMPH # 0.8 x10^3/uL (1.0-4.8); LYMPH % 13 % (24-48); MEAN CORPUSCULAR HEMOGLOBIN 29 pg (25-35); MEAN CORPUSCULAR HGB CONC 33 g/dL (31-37); MEAN CORPUSCULAR VOLUME 89 fL (79-100); MONO # 0.5 x10^3/uL (0.0-1.1); MONO % 9 % (0-9); NEUT # 4.3 x10^3uL (1.8-7.7); NEUT % 71 % (31-73); PLATELET COUNT 176 x10^3/uL (140-400); RED CELL DISTRIBUTION WIDTH 16.1 % (11.5-14.5)
[2019-01-02 11:13] LABS: PROTHROMBIN TIME PATIENT 13.8 SEC (11.7-14.0)
[2019-01-02 11:17] LABS: CALCIUM 8.7 mg/dL (8.5-10.1); CREATININE 5.7 mg/dL (0.7-1.3); GFR 12.7; POTASSIUM 4.9 mmol/L (3.5-5.1)
[2019-01-02 11:22] LABS: ALBUMIN 2.5 g/dL (3.4-5.0); ALBUMIN/GLOBULIN RATIO 0.5 (1.0-1.7); MAGNESIUM 1.8 mg/dL (1.8-2.4); TOTAL BILIRUBIN 0.3 mg/dL (0.2-1.0); TOTAL PROTEIN 7.4 g/dL (6.4-8.2)
--- NOTE | 2019-01-02 11:22 | RAD ---
PORTABLE CHEST 1V Clinical indications: Chest pain since this a.m. COMPARISON: December 22, 2018. Findings: No acute lung infiltrate or pleural effusion or pulmonary edema or lung mass or pneumothorax is seen. The heart size, pulmonary vasculature, mediastinum and both andry are stable. Impression: No acute radiographic abnormality is seen. Electronically signed by: Alonzo Salazar MD (01/02/2019 11:19 AM) [facility]
--- NOTE | 2019-01-02 11:25 | EKG ---
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
--- NOTE | 2019-01-02 12:27 | PDOC1 ---
History and Physical Date of Admission: Date of Admission DATE: 01/02/19 TIME: 12:21 Chief Complaint: Problems: (1) End stage renal disease (2) Coronary artery disease (3) Congestive heart failure (4) Fever (5) Hemoptysis (6) Cardiac arrhythmia (7) CAD (coronary artery disease) (8) Dyspnea (9) Diabetes (10) Hyponatremia (11) Infection (12) Leukocytosis (13) Pancreatitis (14) Peripheral neuropathy (15) Renal failure (16) Pulmonary edema (17) Ventricular tachycardia (18) Sepsis (19) ESRD (end stage renal disease) (20) ESRD (end stage renal disease) (21) Abdominal pain (22) Severe protein-calorie malnutrition (23) GI bleed (24) Isabel-rectal abscess (25) Diabetic foot ulcer (26) Accelerated hypertension (27) Influenza A (28) Nausea & vomiting (29) AV fistula occlusion (30) Compression fracture of L1 lumbar vertebra (31) Diabetes mellitus type 2 in obese (32) Post-operative complication (33) Renal failure (ARF), acute on chronic (34) CHF, acute on chronic (35) Right foot infection (36) AV fistula infection (37) AV fistula infection (38) Left foot infection (39) Hyperosmolar non-ketotic state in patient with type 2 diabetes mellitus (40) Symptomatic anemia (41) TYPE 2 DIABETES MELLITUS WITH FOOT ULCER (42) NON-PRS CHRONIC ULCER OTH PRT RIGHT FOOT W NECROSIS OF BONE (43) Chest pain (44) Elevated brain natriuretic peptide (BNP) level (45) Anemia (46) Acute chest pain (47) ESRD (end stage renal disease) on dialysis (48) Missed dialysis (49) Diabetic toe ulcer Chief Complain: Chest pain missed dialysis for 3 treatments History of Present Illness: HPI: This is a pleasant middle-aged -Turkish male well-known to my service I've been taking care of him for several years even before he had dialysis Now he is on dialysis and had a right [id number] habitation he seems to be very noncompliant and doesn't show up for dialysis often I had a long talk with him last week about this we had him admitted and he agreed that he would not missed dialysis anymore However over the past week or so he's missed 3 treatments He now presents to the ER complains of chest pain but really I think the main problem is that he just has missed dialysis and he was to be dialyzed Clinically he looks quite sick today he is swollen he is very weak he sleepy basically much sicker than he usually is I discussed case with ER physician Noe the patient emergently dialyzed Since he has chest pain were also tender cardiac workup She we noted he rates his symptoms at 9 out of 10 as worse with moving home meds didn't work he describes as agonizing Past Medical/Surgical History: PMH/PSH: Past Medical History: Severe noncompliance with his dialysis. Asthma, CVA, Diabetes-Type II, Hypertension, VT, Pneumonia, Renal Failure Additional Past Medical Histor: 8 MIs, 8 CVAs, multiple stents Past Surgical History: Angioplasty, Other Additional Past Surgical Histo: HD SHUNT,TOE AMPUTATION,RIGHT ARM SX,RIGHT ARM FX,SCROTAL SX,HEART STENT Alcohol Use: None Drug Use: None Allergies: Allergies: Coded Allergies: iodine (Verified Allergy, Severe, THROAT SWELLING, 09/24/18) lisinopril (Verified Allergy, Severe, 09/24/18) Fish Containing Products (Verified Allergy, Intermediate, 09/24/18) Penicillins (Verified Allergy, Intermediate, SEE COMMENT, 09/24/18) Tolerates meropenem and Cephalosporins piperacillin (Verified Allergy, Intermediate, Hives, 09/24/18) Tolerates meropenem tazobactam (Verified Allergy, Intermediate, 09/24/18) Family History: Family History: Hypertension and diabetes Social History: Social Hisoty: He does not drink smoke or take drugs he lives at home with his Taryn who has cancer Current Medications: Current Medications Active Scripts Active Isosorbide Mononitrate Er (Isosorbide Mononitrate) 30 Mg Tab.er.24h 30 Mg PO DAILY 30 Days Coreg (Carvedilol) 3.125 Mg Tablet 3.125 Mg PO BIDWMEALS Lipitor (Atorvastatin Calcium) 80 Mg Tablet 40 Mg PO HS Flovent 110MCG Hfa (Fluticasone Propionate) 12 Gm Aer.w.adap 2 Puff IH BID Zolpidem Tartrate 5 Mg Tablet 1 Tab PO QHS PRN Mirapex (Pramipexole Di-Hcl) 0.25 Mg Tablet 1 Tab PO DAILY Famotidine 20 Mg Tablet 20 Mg PO HS Ventolin Hfa Inhaler (Albuterol Sulfate) 18 Gm Hfa.aer.ad 1 Puff INH Q6HRS PRN Endocet 10-325 Mg Tablet (Oxycodone Hcl/Acetaminophen) 1 Each Tablet 1 Tab PO QID PRN Levothyroxine Sodium 175 Mcg Tablet 175 Mcg PO DAILYAC Merrem (Meropenem) 500 Mg Vial 500 Mg IV DAILY Reported Tums (Calcium Carbonate) 200 Mg Tab.chew 200 Mg PO PRN Q4HRS PRN Hydrocodone-Acetamin 5-325 mg (Hydrocodone/Acetaminophen) 1 Each Tablet 1 Each PO PRN Q6HRS PRN Aspirin 81 Mg Tab.chew 1 Tab PO DAILY Tradjenta (Linagliptin) 5 Mg Tablet 5 Mg PO DAILY Diphenhydramine Hcl 50 Mg Capsule 1 Cap PO PRN Magnesium (Magnesium Oxide) 400 Mg Capsule 400 Mg PO DAILY Calcium Carbonate 500 Mg Tablet 500 Mg PO BID Keppra (Levetiracetam) 1,000 Mg Tablet 1 Tab PO BID Tylenol (Acetaminophen) 325 Mg Tablet 650 Mg PO PRN Q6HRS PRN ROS: Review of Systems Review of System REVIEW OF SYSTEMS: GENERAL: complains of weakness SKIN: No bruising, hair changes or rashes. EYES: No blurred, double or loss of vision. NOSE AND THROAT: No history of nosebleeds, hoarseness or sore throat. HEART: Complains of chest pain LUNGS: Denies cough, hemoptysis, wheezing or shortness of breath. GASTROINTESTINAL: Denies changes in appetite, nausea, vomiting, diarrhea or constipation. GENITOURINARY: No history of frequency, urgency, hesitancy or nocturia. NEUROLOGIC: Complains of weakness PSYCHIATRIC: Complains of depression. ENDOCRINE: No history of heat or cold intolerance, polyuria or polydipsia. EXTREMITIES: Complains of swelling in his right leg. Physical Exam: Vital Signs: Vital Signs Date Time Temp Pulse Resp B/P (MAP) Pulse Ox O2 Delivery O2 Flow Rate FiO2 01/02/19 10:49 98.8 90 29 166/72 (103) 99 Room Air 98.8 Physcial Exam: GEN.: He is very weak 1 talk much HEENT: His face is swollen NECK: Supple, positive JVD LUNGS: Bibasilar crackles HEART: RRR, S1, S2 present. Peripheral pulses intact ABDOMEN: Soft, nontender. Positive bowel sounds no organomegaly EXTREMITIES: Right BKA NEUROLOGIC: Normal speech, normal tone. A&O x 3 PSYCHIATRIC: Depressed SKIN: No ulcerations or rashes VASCULAR: Good capillary refill Labs: Labs: Laboratory Tests Test 01/02/19 10:49 White Blood Count 6.0 x10^3/uL (4.0-11.0) Red Blood Count 2.40 x10^6/uL (4.30-5.70) Hemoglobin 7.0 g/dL (13.0-17.5) Hematocrit 21.3 % (39.0-53.0) Mean Corpuscular Volume 89 fL (79-100) Mean Corpuscular Hemoglobin 29 pg (25-35) Mean Corpuscular Hemoglobin Concent 33 g/dL (31-37) Red Cell Distribution Width 16.1 % (11.5-14.5) Platelet Count 176 x10^3/uL (140-400) Neutrophils (%) (Auto) 71 % (31-73) Lymphocytes (%) (Auto) 13 % (24-48) Monocytes (%) (Auto) 9 % (0-9) Eosinophils (%) (Auto) 5 % (0-3) Basophils (%) (Auto) 3 % (0-3) Neutrophils # (Auto) 4.3 x10^3uL (1.8-7.7) Lymphocytes # (Auto) 0.8 x10^3/uL (1.0-4.8) Monocytes # (Auto) 0.5 x10^3/uL (0.0-1.1) Eosinophils # (Auto) 0.3 x10^3/uL (0.0-0.7) Basophils # (Auto) 0.2 x10^3/uL (0.0-0.2) Prothrombin Time 13.8 SEC (11.7-14.0) Prothromb Time International Ratio 1.1 (0.8-1.1) Sodium Level 142 mmol/L (136-145) Potassium Level 4.9 mmol/L (3.5-5.1) Chloride Level 107 mmol/L (98-107) Carbon Dioxide Level 23 mmol/L (21-32) Anion Gap 12 (6-14) Blood Urea Nitrogen 55 mg/dL (8-26) Creatinine 5.7 mg/dL (0.7-1.3) Estimated GFR (Cockcroft-Gault) 12.7 BUN/Creatinine Ratio 10 (6-20) Glucose Level 158 mg/dL (70-99) Lactic Acid Level 0.6 mmol/L (0.4-2.0) Calcium Level 8.7 mg/dL (8.5-10.1) Magnesium Level 1.8 mg/dL (1.8-2.4) Total Bilirubin 0.3 mg/dL (0.2-1.0) Aspartate Amino Transf (AST/SGOT) 18 U/L (15-37) Alanine Aminotransferase (ALT/SGPT) 10 U/L (16-63) Alkaline Phosphatase 60 U/L (46-116) Creatine Kinase 210 U/L (39-308) Creatine Kinase MB (Mass) 2.3 ng/mL (0.0-3.6) Creatine Kinase MB Relative Index 1.1 % (0-4) Troponin I Quantitative 0.028 ng/mL (0.000-0.055) PX-Ben-N-Type Natriuretic Peptide 05053 pg/mL (0-124) Total Protein 7.4 g/dL (6.4-8.2) Albumin 2.5 g/dL (3.4-5.0) Albumin/Globulin Ratio 0.5 (1.0-1.7) Lipase 257 U/L (73-393) Laboratory Tests Test 01/02/19 10:49 White Blood Count 6.0 x10^3/uL (4.0-11.0) Red Blood Count 2.40 x10^6/uL (4.30-5.70) Hemoglobin 7.0 g/dL (13.0-17.5) Hematocrit 21.3 % (39.0-53.0) Mean Corpuscular Volume 89 fL (79-100) Mean Corpuscular Hemoglobin 29 pg (25-35) Mean Corpuscular Hemoglobin Concent 33 g/dL (31-37) Red Cell Distribution Width 16.1 % (11.5-14.5) Platelet Count 176 x10^3/uL (140-400) Neutrophils (%) (Auto) 71 % (31-73) Lymphocytes (%) (Auto) 13 % (24-48) Monocytes (%) (Auto) 9 % (0-9) Eosinophils (%) (Auto) 5 % (0-3) Basophils (%) (Auto) 3 % (0-3) Neutrophils # (Auto) 4.3 x10^3uL (1.8-7.7) Lymphocytes # (Auto) 0.8 x10^3/uL (1.0-4.8) Monocytes # (Auto) 0.5 x10^3/uL (0.0-1.1) Eosinophils # (Auto) 0.3 x10^3/uL (0.0-0.7) Basophils # (Auto) 0.2 x10^3/uL (0.0-0.2) Prothrombin Time 13.8 SEC (11.7-14.0) Prothromb Time International Ratio 1.1 (0.8-1.1) Sodium Level 142 mmol/L (136-145) Potassium Level 4.9 mmol/L (3.5-5.1) Chloride Level 107 mmol/L (98-107) Carbon Dioxide Level 23 mmol/L (21-32) Anion Gap 12 (6-14) Blood Urea Nitrogen 55 mg/dL (8-26) Creatinine 5.7 mg/dL (0.7-1.3) Estimated GFR (Cockcroft-Gault) 12.7 BUN/Creatinine Ratio 10 (6-20) Glucose Level 158 mg/dL (70-99) Lactic Acid Level 0.6 mmol/L (0.4-2.0) Calcium Level 8.7 mg/dL (8.5-10.1) Magnesium Level 1.8 mg/dL (1.8-2.4) Total Bilirubin 0.3 mg/dL (0.2-1.0) Aspartate Amino Transf (AST/SGOT) 18 U/L (15-37) Alanine Aminotransferase (ALT/SGPT) 10 U/L (16-63) Alkaline Phosphatase 60 U/L (46-116) Creatine Kinase 210 U/L (39-308) Creatine Kinase MB (Mass) 2.3 ng/mL (0.0-3.6) Creatine Kinase MB Relative Index 1.1 % (0-4) Troponin I Quantitative 0.028 ng/mL (0.000-0.055) LP-Giv-Q-Type Natriuretic Peptide 44922 pg/mL (0-124) Total Protein 7.4 g/dL (6.4-8.2) Albumin 2.5 g/dL (3.4-5.0) Albumin/Globulin Ratio 0.5 (1.0-1.7) Lipase 257 U/L (73-393) Images: Images Chest x-ray shows vascular congestion Assessment/Plan Assessment/Plan Severe noncompliance with dialysis with secondary azotemia and renal failure falling overload chest pain severe anemia with a hemoglobin of 7 Plan Admit to ICU Consult cardiology and nephrology Emergent dialysis Transfuse 2 units packed red blood cells Home meds Wound care Frequent labs Full code PT OT if possible Long-term prognosis extremely guarded if he doesn't start going to dialysis Total time 32 minutes VIC TIWARI III DO January 02, 2019 12:27
--- NOTE | 2019-01-02 13:24 | PDOC2 ---
CONSULT Date of Consult Date of Consult DATE: 01/02/19 TIME: :23 Reason for Consult Reason for Consult: ESRD Identification/Chief Complaint Chief Complaint Chest Pain Source Source: Chart review, Patient History of Present Illness Reason for Visit: Patient is a 53 year old AAM male ESRD on HD TTS, frequent hospitalizations, presented to ED chest pain. Denies any CP or SOB currently. No N/V/F/C. Chronic Non complaince with HD - missed HD last week(3-4 treatments) claims due to Transportation not picking him up Currently sitting up in bed, No complaints Past Medical History Cardiovascular: AFIB, CAD, CHF, HTN, MD, Hyperlipidemia, Other Pulmonary: COPD CENTRAL NERVOUS SYSTEM: Dementia, Periperal neuropathy, Seizure, TIA GI: Diverticulosis, Other Heme/Onc: Anemia NOS Hepatobiliary: No pertinent hx Psych: Anxiety, Depression Musculoskeletal: Osteoarthritis Rheumatologic: Rheumatoid arthritis Infectious disease: No pertinent hx Renal/: Chronic renal failure Endocrine: Diabetes, Hypothyroidism, Hyperparathyroidism Past Surgical History Past Surgical History: Cataract Removal, Total knee replacement, Other Family History Family History: Diabetes, Hypertension Social History Social History: Parent ALCOHOL: none Drugs: None Lives: with Family Current Problem List Problem List Problems Medical Problems: (1) Elevated brain natriuretic peptide (BNP) level Status: Acute Current Medications Current Medications Active Scripts Active Isosorbide Mononitrate Er (Isosorbide Mononitrate) 30 Mg Tab.er.24h 30 Mg PO DAILY 30 Days Coreg (Carvedilol) 3.125 Mg Tablet 3.125 Mg PO BIDWMEALS Lipitor (Atorvastatin Calcium) 80 Mg Tablet 40 Mg PO HS Flovent 110MCG Hfa (Fluticasone Propionate) 12 Gm Aer.w.adap 2 Puff IH BID Zolpidem Tartrate 5 Mg Tablet 1 Tab PO QHS PRN Mirapex (Pramipexole Di-Hcl) 0.25 Mg Tablet 1 Tab PO DAILY Famotidine 20 Mg Tablet 20 Mg PO HS Ventolin Hfa Inhaler (Albuterol Sulfate) 18 Gm Hfa.aer.ad 1 Puff INH Q6HRS PRN Endocet 10-325 Mg Tablet (Oxycodone Hcl/Acetaminophen) 1 Each Tablet 1 Tab PO QID PRN Levothyroxine Sodium 175 Mcg Tablet 175 Mcg PO DAILYAC Merrem (Meropenem) 500 Mg Vial 500 Mg IV DAILY Reported Tums (Calcium Carbonate) 200 Mg Tab.chew 200 Mg PO PRN Q4HRS PRN Hydrocodone-Acetamin 5-325 mg (Hydrocodone/Acetaminophen) 1 Each Tablet 1 Each PO PRN Q6HRS PRN Aspirin 81 Mg Tab.chew 1 Tab PO DAILY Tradjenta (Linagliptin) 5 Mg Tablet 5 Mg PO DAILY Diphenhydramine Hcl 50 Mg Capsule 1 Cap PO PRN Magnesium (Magnesium Oxide) 400 Mg Capsule 400 Mg PO DAILY Calcium Carbonate 500 Mg Tablet 500 Mg PO BID Keppra (Levetiracetam) 1,000 Mg Tablet 1 Tab PO BID Tylenol (Acetaminophen) 325 Mg Tablet 650 Mg PO PRN Q6HRS PRN Allergies Allergies: Coded Allergies: iodine (Verified Allergy, Severe, THROAT SWELLING, 09/24/18) lisinopril (Verified Allergy, Severe, 09/24/18) Fish Containing Products (Verified Allergy, Intermediate, 09/24/18) Penicillins (Verified Allergy, Intermediate, SEE COMMENT, 09/24/18) Tolerates meropenem and Cephalosporins piperacillin (Verified Allergy, Intermediate, Hives, 09/24/18) Tolerates meropenem tazobactam (Verified Allergy, Intermediate, 09/24/18) ROS Review of System As per HPI Physical Exam Physical Exam GEN.: No apparent distress. HEENT: OM moist NECK: Supple, no JVD LUNGS: Clear to auscultation HEART: RRR, S1, S2 present. ABDOMEN: Soft, nontender. Obese EXTREMITIES: Right foot with transmetatarsal amputation with bleeding and clean dry intact dressing NEUROLOGIC: Grossly Normal SKIN: No ulcerations or rashes No Henry Vital Signs Vital Signs Date Time Temp Pulse Resp B/P (MAP) Pulse Ox O2 Delivery O2 Flow Rate FiO2 01/02/19 12:07 98 15 164/71 (102) 98 Room Air 01/02/19 10:49 98.8 98.8 Assessment & Plan ESRD- On HD TTS Labs stable, CxR No e/o Vol Overload HD Today - as missed for 1 [place]- clinically stable Chronic Non compliance Anemia- Hgb 7 PRBC as ordered by primary Adriannap as per protocol Misses HD treatments HTN- Home Antihypertensives Labs Labs Laboratory Tests Test 01/02/19 10:49 White Blood Count 6.0 x10^3/uL (4.0-11.0) Red Blood Count 2.40 x10^6/uL (4.30-5.70) Hemoglobin 7.0 g/dL (13.0-17.5) Hematocrit 21.3 % (39.0-53.0) Mean Corpuscular Volume 89 fL (79-100) Mean Corpuscular Hemoglobin 29 pg (25-35) Mean Corpuscular Hemoglobin Concent 33 g/dL (31-37) Red Cell Distribution Width 16.1 % (11.5-14.5) Platelet Count 176 x10^3/uL (140-400) Neutrophils (%) (Auto) 71 % (31-73) Lymphocytes (%) (Auto) 13 % (24-48) Monocytes (%) (Auto) 9 % (0-9) Eosinophils (%) (Auto) 5 % (0-3) Basophils (%) (Auto) 3 % (0-3) Neutrophils # (Auto) 4.3 x10^3uL (1.8-7.7) Lymphocytes # (Auto) 0.8 x10^3/uL (1.0-4.8) Monocytes # (Auto) 0.5 x10^3/uL (0.0-1.1) Eosinophils # (Auto) 0.3 x10^3/uL (0.0-0.7) Basophils # (Auto) 0.2 x10^3/uL (0.0-0.2) Prothrombin Time 13.8 SEC (11.7-14.0) Prothromb Time International Ratio 1.1 (0.8-1.1) Sodium Level 142 mmol/L (136-145) Potassium Level 4.9 mmol/L (3.5-5.1) Chloride Level 107 mmol/L (98-107) Carbon Dioxide Level 23 mmol/L (21-32) Anion Gap 12 (6-14) Blood Urea Nitrogen 55 mg/dL (8-26) Creatinine 5.7 mg/dL (0.7-1.3) Estimated GFR (Cockcroft-Gault) 12.7 BUN/Creatinine Ratio 10 (6-20) Glucose Level 158 mg/dL (70-99) Lactic Acid Level 0.6 mmol/L (0.4-2.0) Calcium Level 8.7 mg/dL (8.5-10.1) Magnesium Level 1.8 mg/dL (1.8-2.4) Total Bilirubin 0.3 mg/dL (0.2-1.0) Aspartate Amino Transf (AST/SGOT) 18 U/L (15-37) Alanine Aminotransferase (ALT/SGPT) 10 U/L (16-63) Alkaline Phosphatase 60 U/L (46-116) Creatine Kinase 210 U/L (39-308) Creatine Kinase MB (Mass) 2.3 ng/mL (0.0-3.6) Creatine Kinase MB Relative Index 1.1 % (0-4) Troponin I Quantitative 0.028 ng/mL (0.000-0.055) LL-Pbr-N-Type Natriuretic Peptide 65575 pg/mL (0-124) Total Protein 7.4 g/dL (6.4-8.2) Albumin 2.5 g/dL (3.4-5.0) Albumin/Globulin Ratio 0.5 (1.0-1.7) Lipase 257 U/L (73-393) Laboratory Tests Test 01/02/19 10:49 White Blood Count 6.0 x10^3/uL (4.0-11.0) Red Blood Count 2.40 x10^6/uL (4.30-5.70) Hemoglobin 7.0 g/dL (13.0-17.5) Hematocrit 21.3 % (39.0-53.0) Mean Corpuscular Volume 89 fL (79-100) Mean Corpuscular Hemoglobin 29 pg (25-35) Mean Corpuscular Hemoglobin Concent 33 g/dL (31-37) Red Cell Distribution Width 16.1 % (11.5-14.5) Platelet Count 176 x10^3/uL (140-400) Neutrophils (%) (Auto) 71 % (31-73) Lymphocytes (%) (Auto) 13 % (24-48) Monocytes (%) (Auto) 9 % (0-9) Eosinophils (%) (Auto) 5 % (0-3) Basophils (%) (Auto) 3 % (0-3) Neutrophils # (Auto) 4.3 x10^3uL (1.8-7.7) Lymphocytes # (Auto) 0.8 x10^3/uL (1.0-4.8) Monocytes # (Auto) 0.5 x10^3/uL (0.0-1.1) Eosinophils # (Auto) 0.3 x10^3/uL (0.0-0.7) Basophils # (Auto) 0.2 x10^3/uL (0.0-0.2) Prothrombin Time 13.8 SEC (11.7-14.0) Prothromb Time International Ratio 1.1 (0.8-1.1) Sodium Level 142 mmol/L (136-145) Potassium Level 4.9 mmol/L (3.5-5.1) Chloride Level 107 mmol/L (98-107) Carbon Dioxide Level 23 mmol/L (21-32) Anion Gap 12 (6-14) Blood Urea Nitrogen 55 mg/dL (8-26) Creatinine 5.7 mg/dL (0.7-1.3) Estimated GFR (Cockcroft-Gault) 12.7 BUN/Creatinine Ratio 10 (6-20) Glucose Level 158 mg/dL (70-99) Lactic Acid Level 0.6 mmol/L (0.4-2.0) Calcium Level 8.7 mg/dL (8.5-10.1) Magnesium Level 1.8 mg/dL (1.8-2.4) Total Bilirubin 0.3 mg/dL (0.2-1.0) Aspartate Amino Transf (AST/SGOT) 18 U/L (15-37) Alanine Aminotransferase (ALT/SGPT) 10 U/L (16-63) Alkaline Phosphatase 60 U/L (46-116) Creatine Kinase 210 U/L (39-308) Creatine Kinase MB (Mass) 2.3 ng/mL (0.0-3.6) Creatine Kinase MB Relative Index 1.1 % (0-4) Troponin I Quantitative 0.028 ng/mL (0.000-0.055) HO-Xpx-K-Type Natriuretic Peptide 05503 pg/mL (0-124) Total Protein 7.4 g/dL (6.4-8.2) Albumin 2.5 g/dL (3.4-5.0) Albumin/Globulin Ratio 0.5 (1.0-1.7) Lipase 257 U/L (73-393) Review All relevant outside records, renal labs, imaging studies, telemetry/EKG's were reviewed. DEBRA,MINA MD January 02, 2019 13:24
[2019-01-02 14:00] VITALS: BP 174/92
--- NOTE | 2019-01-02 14:00 | NUR ---
Pt arrived via gurney from ED. A&O X4, VSS, able to transfer to bed, c/o pain 03/22, home wound vac in place. Completed admission assessment. DL PICC DANNY dressing changed in ED. Called Dr. Guerin to verify transfusing orders, he requested transfuse during dialysis 01/03. Home meds verified and restarted. Pt leaving unit for dialysis.
[2019-01-02] MEDS ORDERED: C.DIFF MED SCREEN BY RX. MC ONE (14:30)
[2019-01-02] MEDS ORDERED: IV NORMAL SALINE 1000ML BAG 1,000 ML IV PRN ×2 (15:01)
[2019-01-02] MEDS ORDERED: DIALYSIS PATIENT. MC PRN ×2 (15:15)
[2019-01-02] MEDS ORDERED: MAGN400C PO (15:58)
[2019-01-02] MEDS ORDERED: CLOP75TA PO (15:58)
[2019-01-02] MEDS ORDERED: NON FORMULARY ITEM (Albuterol Sulfate (Ventolin Hfa Inhaler) 1 PUFF) INH PRN (16:15)
[2019-01-02] MEDS ORDERED: ACETAMINOPHEN 325 MG TABLET. PO PRN (16:15)
[2019-01-02] MEDS ORDERED: CALCIUM CARBONATE 500 MG TAB.CHEW PO PRN (16:15)
[2019-01-02] MEDS ORDERED: ZOLPIDEM 5 MG TABLET. PO PRN (16:15)
[2019-01-02 18:00] VITALS: BP 170/71
--- NOTE | 2019-01-02 18:15 | NUR ---
Pt returning from dialysis. Wound vac removed. Pictures taken. Wet to dry dressing applied. Meal tray ordered. Water pitcher filled. Call light within reach. Will return to monitor.
[2019-01-02] MEDS: CARVEDILOL 3.125 MG TABLET. PO SCH (18:35)
[2019-01-02] MEDS: CALCIUM CARBONATE 500 MG TABLET PO SCH (18:35)
[2019-01-02] MEDS: MEROPENEM 500 MG in IV NORMAL SALINE 50ML 50 ML IV SCH (18:36)
[2019-01-02 19:45] VITALS: BP 169/74
[2019-01-02] MEDS: BUDESONIDE 0.5 MG/2 ML NEBU. NEB SCH (20:16)
[2019-01-02] MEDS ORDERED: NON FORMULARY ITEM (Fluticasone Propionate (Flovent 110MCG Hfa) 2 PUFF) IH SCH (21:00)
[2019-01-02] MEDS: levETIRAcetam 500 MG TABLET PO SCH (21:03)
[2019-01-02] MEDS: ATORVASTATIN CALCIUM 40 MG TABLET. PO SCH (21:03)
[2019-01-02] MEDS: FAMOTIDINE 20 MG TABLET. PO SCH (21:03)
[2019-01-02 23:31] VITALS: BP 156/70
[2019-01-03] VITALS (12 sets, daily range): BP systolic 136–189; BP diastolic 56–82
[2019-01-03] MEDS: HYDROcodone/APAP 5/325MG 1 TAB TABLET PO PRN ×2 (02:08→21:00)
[2019-01-03] MEDS: diphenhydrAMINE HCL 25 MG CAPSULE PO PRN (02:59)
--- NOTE | 2019-01-03 08:04 | NUR ---
Pharmacy Medication Review S: Consulted for medication review re: C.diff Risk Assessment score of 4 O: BHAVYA WILKES is a 53 year old with: Previous C.diff infection: No Previous hospitalization: Within 30 days Recent antibiotics: Within 30 days Use of gastric acid suppressor: No Transfer from PA/LTAC: No Current antibiotic regimen: merrem 500mg q24h Current acid suppression regimen: famotidine 20mg daily A: Patient has been identified as having risk factors for C.diff infection as noted above. P: Antibiotic Regimen recommendation made: n/a (near end of therapy w/abx) Probiotic ordered: Yes PPI changed to [id number]: n/a Suzan Nunes RPH, 01/03/19 0804
[2019-01-03] MEDS ORDERED: IV NORMAL SALINE 1000ML BAG 1,000 ML IV PRN ×2 (08:09)
[2019-01-03] MEDS: PRAMIPEXOLE 0.25 MG TABLET. PO SCH (08:12)
[2019-01-03] MEDS: LINAGLIPTIN 5 MG TABLET PO SCH (08:13)
[2019-01-03] MEDS: ASPIRIN CHEWABLE 81 MG TABLET. PO SCH (08:13)
[2019-01-03] MEDS: levETIRAcetam 500 MG TABLET PO SCH ×2 (08:13→20:59)
[2019-01-03] MEDS: CALCIUM CARBONATE 500 MG TABLET PO SCH ×2 (08:13→17:36)
[2019-01-03] MEDS: LEVOTHYROXINE 175 MCG TABLET PO SCH (08:13)
[2019-01-03] MEDS: ISOSORBIDE MONONITRATE ER 30 MG TAB.ER.24H PO SCH (08:13)
[2019-01-03] MEDS: MAGNESIUM OXIDE 400 MG TABLET PO SCH (08:13)
[2019-01-03] MEDS: CARVEDILOL 3.125 MG TABLET. PO SCH ×2 (08:14→17:37)
[2019-01-03] MEDS: LACTOBACILLUS RHAMNOSUS GG 1 CAPSULE. PO SCH ×2 (08:14→21:00)
[2019-01-03] MEDS ORDERED: ALBUMIN HUMAN 25% 200 ML IV PRN (08:15)
[2019-01-03] MEDS ORDERED: ACETAMINOPHEN 500 MG TABLET PO PRN (08:15)
[2019-01-03] MEDS ORDERED: diphenhydrAMINE 50 MG/ML VIAL IV PRN ×2 (08:15)
[2019-01-03] MEDS ORDERED: DIALYSIS PATIENT. MC PRN (08:15)
[2019-01-03] MEDS: ALBUTEROL SULFATE 2.5 MG/3 ML NEBU. NEB PRN (08:19)
[2019-01-03] MEDS: BUDESONIDE 0.5 MG/2 ML NEBU. NEB SCH ×2 (08:19→20:00)
[2019-01-03] MEDS ORDERED: CLOPIDOGREL BISULFATE 75 MG TABLET PO SCH (09:00)
[2019-01-03] MEDS ORDERED: MEROPENEM 500 MG IV SCH (09:00)
--- NOTE | 2019-01-03 10:01 | PDOC ---
PROGRESS NOTES History of Present Illness History of Present Illness Images: Images Chest x-ray shows vascular congestion Assessment/Plan Assessment/Plan Severe noncompliance with dialysis with secondary azotemia and renal failure falling overload chest pain severe anemia with a hemoglobin of 7 Bleeding right foot transmetatarsal amputation chronic wound ESRD Moderate coronary artery disease in the left anterior descending. Stent in the left circumflex vessel which had previous distal occlusion which now had some flowl. No new significant lesions were identified. Small nondominant right coronary artery with a 70% proximal lesion. Cardiomegaly with extensive coronary artery disease. morbid obesity Patient is a pleasant middle-aged male well-known to our service He is severely noncompliant with his dialysis and his wound appointments Plan Admit Consult cardiology and nephrology Emergent dialysis Transfuse 2 units packed red blood cells Home meds Wound care Frequent labs Full code PT OT if possible Long-term prognosis extremely guarded if he doesn't start going to dialysis transfuse 1 unit PRBC'S 01/03 42 MIN PT EXAM, CHART REVIEW, > 50% OF TIME SPENT with exam, chart review, pt care coordination Vitals Vitals Vital Signs Date Time Temp Pulse Resp B/P (MAP) Pulse Ox O2 Delivery O2 Flow Rate FiO2 01/03/19 09:54 98.1 86 18 169/76 98.1 01/03/19 08:24 97 Room Air Physical Exam Physical Exam Physcial Exam: GEN.: very weak HEENT: His face is swollen NECK: Supple, positive JVD LUNGS: Bibasilar crackles HEART: RRR, S1, S2 present. Peripheral pulses intact ABDOMEN: Soft, nontender. Positive bowel sounds no organomegaly EXTREMITIES: Right BKA NEUROLOGIC: Normal speech, normal tone. A&O x 3 PSYCHIATRIC: Depressed SKIN: No ulcerations or rashes VASCULAR: Good capillary refill Lungs: Clear Labs LABS Signed PATIENT: BHAVYA WILKES ACCOUNT: [id number] : 1965 LOCATION: [facility] ICU AGE: 53 SEX: M EXAM STATUS: ADM IN ORD. PHYSICIAN: GOMEZ SUMNER MD REASON: pna, sepsis, fever/ nurse will call PROCEDURE: CT CHEST WO CONTRAST CT of the chest without contrast, 11/25/2018: HISTORY: Fever, sepsis Noncontrast scans were obtained and compared to a study from 05/02/2016. The thoracic aorta is unremarkable. The heart is mildly enlarged. There are extensive coronary artery calcifications. Several small mediastinal lymph nodes are seen without definite pathologic enlargement. There are vascular stents in the innominate veins bilaterally. There is only minimal streaky atelectasis or scarring in the posterior costophrenic angle on the left. No significant pulmonary consolidation or mass is seen. There is no evidence of pleural fluid. Mildly prominent axillary and right subpectoral lymph nodes seen on the previous study have regressed. There are moderate scattered hypertrophic degenerative changes in the spine with a mild thoracic scoliosis. Vertebroplasty change is now evident related to an L1 vertebral compression fracture. IMPRESSION: 1. Cardiomegaly with extensive coronary artery disease. 2. Minimal left basilar atelectasis. PQRS Compliance Statement: One or more of the following individualized dose reduction techniques were utilized for this examination: 1. Automated exposure control 2. Adjustment of the mA and/or kV according to patient size 3. Use of iterative reconstruction technique Electronically signed by: Terrence Rob MD (11/26/2018 8:23 AM) [facility] Procedures Left heart catheterization Selective coronary angiogram The patient is a 53-year-old male with a known history of coronary disease with previous stenting. Catheterization approximately 2 years ago showed an occlusion of the distal portion of his left circumflex stent and moderate disease in his LAD as well as small vessel disease in the diagonal system. The patient had recurrent chest pain. Cardiac catheterization was recommended with risks and benefits discussed. The patient agreed to proceed. Prior to this procedure the patient had an angiogram of his left lower extremity by the vascular surgery service. Access was via the left femoral artery and a sheath was remaining in place after the vascular surgery angiogram. This area was then used for our access. A J wire was placed and a 6 Malian sheath exchanged for a 5 Malian sheath with an [id number] technique. A J guiding wire was advanced to the ascending aorta. A 6 Malian JL4 diagnostic catheter was advanced to the ascending aorta. It was then used to engage the left coronary system. Sequential injections in various views were obtained. In a similar manner a 6 Malian JR4 diagnostic catheter was used to engage the right coronary artery and sequential injections in various views were obtained. A pigtail catheter was then advanced to the ascending aorta. It was advanced the left ventricle with the patient had a brief episode of tachycardia which was terminated with the removal of the pigtail. Additional attempts to cross the aortic valve were not attempted. The pigtail was removed from the patient. Previous injection the sheath showed showed normal placement. The sheath was removed and sealed with an Angio-Seal product. The patient was then moved to the holding area. Findings. Hemodynamics Aortic root pressure 168/98. Coronaries. Left main. The left main was a large vessel with no lesions. Left anterior descending. The LAD was a moderately large vessel with normal distribution. It had a mid 35-40% lesion. It had a more distal 25% lesion. There was diffuse disease in the diagonal branches of up to 90% in small vessels. Left circumflex. The left circumflex was a moderate-sized dominant vessel. It had a proximal 50% lesion. There was a previously placed stent in the mid to distal vessel. The area of previous occlusion in the distal stent now had some distal flow. There were no significant new lesions. Right coronary artery. The right coronary was a relatively small nondominant vessel. It a proximal 70% or greater lesion. <Conclusion> Moderate coronary artery disease in the left anterior descending. Stent in the left circumflex vessel which had previous distal occlusion which now had some flowl. No new significant lesions were identified. Small nondominant right coronary artery with a 70% proximal lesion. Signed by : Baltazar Huston MD Electronically Approved : 09/18/2018 17:46:11 Laboratory Tests Test 01/02/19 10:49 01/02/19 15:15 01/02/19 18:14 01/02/19 20:43 White Blood Count 6.0 x10^3/uL (4.0-11.0) Red Blood Count 2.40 x10^6/uL (4.30-5.70) Hemoglobin 7.0 g/dL (13.0-17.5) Hematocrit 21.3 % (39.0-53.0) Mean Corpuscular Volume 89 fL (79-100) Mean Corpuscular Hemoglobin 29 pg (25-35) Mean Corpuscular Hemoglobin Concent 33 g/dL (31-37) Red Cell Distribution Width 16.1 % (11.5-14.5) Platelet Count 176 x10^3/uL (140-400) Neutrophils (%) (Auto) 71 % (31-73) Lymphocytes (%) (Auto) 13 % (24-48) Monocytes (%) (Auto) 9 % (0-9) Eosinophils (%) (Auto) 5 % (0-3) Basophils (%) (Auto) 3 % (0-3) Neutrophils # (Auto) 4.3 x10^3uL (1.8-7.7) Lymphocytes # (Auto) 0.8 x10^3/uL (1.0-4.8) Monocytes # (Auto) 0.5 x10^3/uL (0.0-1.1) Eosinophils # (Auto) 0.3 x10^3/uL (0.0-0.7) Basophils # (Auto) 0.2 x10^3/uL (0.0-0.2) Prothrombin Time 13.8 SEC (11.7-14.0) Prothromb Time International Ratio 1.1 (0.8-1.1) Sodium Level 142 mmol/L (136-145) Potassium Level 4.9 mmol/L (3.5-5.1) Chloride Level 107 mmol/L (98-107) Carbon Dioxide Level 23 mmol/L (21-32) Anion Gap 12 (6-14) Blood Urea Nitrogen 55 mg/dL (8-26) Creatinine 5.7 mg/dL (0.7-1.3) Estimated GFR (Cockcroft-Gault) 12.7 BUN/Creatinine Ratio 10 (6-20) Glucose Level 158 mg/dL (70-99) Lactic Acid Level 0.6 mmol/L (0.4-2.0) Calcium Level 8.7 mg/dL (8.5-10.1) Magnesium Level 1.8 mg/dL (1.8-2.4) Total Bilirubin 0.3 mg/dL (0.2-1.0) Aspartate Amino Transf (AST/SGOT) 18 U/L (15-37) Alanine Aminotransferase (ALT/SGPT) 10 U/L (16-63) Alkaline Phosphatase 60 U/L (46-116) Creatine Kinase 210 U/L (39-308) Creatine Kinase MB (Mass) 2.3 ng/mL (0.0-3.6) Creatine Kinase MB Relative Index 1.1 % (0-4) Troponin I Quantitative 0.028 ng/mL (0.000-0.055) 0.021 ng/mL (0.000-0.055) DH-Oth-R-Type Natriuretic Peptide 60466 pg/mL (0-124) Total Protein 7.4 g/dL (6.4-8.2) Albumin 2.5 g/dL (3.4-5.0) Albumin/Globulin Ratio 0.5 (1.0-1.7) Lipase 257 U/L (73-393) Glucose (Fingerstick) 113 mg/dL (70-99) 187 mg/dL (70-99) Test 01/02/19 21:05 01/03/19 08:20 Troponin I Quantitative < 0.017 ng/mL (0.000-0.055) Glucose (Fingerstick) 110 mg/dL (70-99) Assessment and Plan Assessmemt and Plan Problems Medical Problems: (1) Elevated brain natriuretic peptide (BNP) level Status: Acute Comment Review of Relevant I have reviewed the following items lila (where applicable) has been applied. Labs Laboratory Tests Test 01/02/19 10:49 01/02/19 15:15 01/02/19 18:14 01/02/19 20:43 White Blood Count 6.0 x10^3/uL (4.0-11.0) Red Blood Count 2.40 x10^6/uL (4.30-5.70) Hemoglobin 7.0 g/dL (13.0-17.5) Hematocrit 21.3 % (39.0-53.0) Mean Corpuscular Volume 89 fL (79-100) Mean Corpuscular Hemoglobin 29 pg (25-35) Mean Corpuscular Hemoglobin Concent 33 g/dL (31-37) Red Cell Distribution Width 16.1 % (11.5-14.5) Platelet Count 176 x10^3/uL (140-400) Neutrophils (%) (Auto) 71 % (31-73) Lymphocytes (%) (Auto) 13 % (24-48) Monocytes (%) (Auto) 9 % (0-9) Eosinophils (%) (Auto) 5 % (0-3) Basophils (%) (Auto) 3 % (0-3) Neutrophils # (Auto) 4.3 x10^3uL (1.8-7.7) Lymphocytes # (Auto) 0.8 x10^3/uL (1.0-4.8) Monocytes # (Auto) 0.5 x10^3/uL (0.0-1.1) Eosinophils # (Auto) 0.3 x10^3/uL (0.0-0.7) Basophils # (Auto) 0.2 x10^3/uL (0.0-0.2) Prothrombin Time 13.8 SEC (11.7-14.0) Prothromb Time International Ratio 1.1 (0.8-1.1) Sodium Level 142 mmol/L (136-145) Potassium Level 4.9 mmol/L (3.5-5.1) Chloride Level 107 mmol/L (98-107) Carbon Dioxide Level 23 mmol/L (21-32) Anion Gap 12 (6-14) Blood Urea Nitrogen 55 mg/dL (8-26) Creatinine 5.7 mg/dL (0.7-1.3) Estimated GFR (Cockcroft-Gault) 12.7 BUN/Creatinine Ratio 10 (6-20) Glucose Level 158 mg/dL (70-99) Lactic Acid Level 0.6 mmol/L (0.4-2.0) Calcium Level 8.7 mg/dL (8.5-10.1) Magnesium Level 1.8 mg/dL (1.8-2.4) Total Bilirubin 0.3 mg/dL (0.2-1.0) Aspartate Amino Transf (AST/SGOT) 18 U/L (15-37) Alanine Aminotransferase (ALT/SGPT) 10 U/L (16-63) Alkaline Phosphatase 60 U/L (46-116) Creatine Kinase 210 U/L (39-308) Creatine Kinase MB (Mass) 2.3 ng/mL (0.0-3.6) Creatine Kinase MB Relative Index 1.1 % (0-4) Troponin I Quantitative 0.028 ng/mL (0.000-0.055) 0.021 ng/mL (0.000-0.055) MY-Tdy-G-Type Natriuretic Peptide 53538 pg/mL (0-124) Total Protein 7.4 g/dL (6.4-8.2) Albumin 2.5 g/dL (3.4-5.0) Albumin/Globulin Ratio 0.5 (1.0-1.7) Lipase 257 U/L (73-393) Glucose (Fingerstick) 113 mg/dL (70-99) 187 mg/dL (70-99) Test 01/02/19 21:05 01/03/19 08:20 Troponin I Quantitative < 0.017 ng/mL (0.000-0.055) Glucose (Fingerstick) 110 mg/dL (70-99) Laboratory Tests Test 01/02/19 10:49 01/02/19 15:15 01/02/19 18:14 01/02/19 20:43 White Blood Count 6.0 x10^3/uL (4.0-11.0) Red Blood Count 2.40 x10^6/uL (4.30-5.70) Hemoglobin 7.0 g/dL (13.0-17.5) Hematocrit 21.3 % (39.0-53.0) Mean Corpuscular Volume 89 fL (79-100) Mean Corpuscular Hemoglobin 29 pg (25-35) Mean Corpuscular Hemoglobin Concent 33 g/dL (31-37) Red Cell Distribution Width 16.1 % (11.5-14.5) Platelet Count 176 x10^3/uL (140-400) Neutrophils (%) (Auto) 71 % (31-73) Lymphocytes (%) (Auto) 13 % (24-48) Monocytes (%) (Auto) 9 % (0-9) Eosinophils (%) (Auto) 5 % (0-3) Basophils (%) (Auto) 3 % (0-3) Neutrophils # (Auto) 4.3 x10^3uL (1.8-7.7) Lymphocytes # (Auto) 0.8 x10^3/uL (1.0-4.8) Monocytes # (Auto) 0.5 x10^3/uL (0.0-1.1) Eosinophils # (Auto) 0.3 x10^3/uL (0.0-0.7) Basophils # (Auto) 0.2 x10^3/uL (0.0-0.2) Prothrombin Time 13.8 SEC (11.7-14.0) Prothromb Time International Ratio 1.1 (0.8-1.1) Sodium Level 142 mmol/L (136-145) Potassium Level 4.9 mmol/L (3.5-5.1) Chloride Level 107 mmol/L (98-107) Carbon Dioxide Level 23 mmol/L (21-32) Anion Gap 12 (6-14) Blood Urea Nitrogen 55 mg/dL (8-26) Creatinine 5.7 mg/dL (0.7-1.3) Estimated GFR (Cockcroft-Gault) 12.7 BUN/Creatinine Ratio 10 (6-20) Glucose Level 158 mg/dL (70-99) Lactic Acid Level 0.6 mmol/L (0.4-2.0) Calcium Level 8.7 mg/dL (8.5-10.1) Magnesium Level 1.8 mg/dL (1.8-2.4) Total Bilirubin 0.3 mg/dL (0.2-1.0) Aspartate Amino Transf (AST/SGOT) 18 U/L (15-37) Alanine Aminotransferase (ALT/SGPT) 10 U/L (16-63) Alkaline Phosphatase 60 U/L (46-116) Creatine Kinase 210 U/L (39-308) Creatine Kinase MB (Mass) 2.3 ng/mL (0.0-3.6) Creatine Kinase MB Relative Index 1.1 % (0-4) Troponin I Quantitative 0.028 ng/mL (0.000-0.055) 0.021 ng/mL (0.000-0.055) SC-Efw-G-Type Natriuretic Peptide 36215 pg/mL (0-124) Total Protein 7.4 g/dL (6.4-8.2) Albumin 2.5 g/dL (3.4-5.0) Albumin/Globulin Ratio 0.5 (1.0-1.7) Lipase 257 U/L (73-393) Glucose (Fingerstick) 113 mg/dL (70-99) 187 mg/dL (70-99) Test 01/02/19 21:05 01/03/19 08:20 Troponin I Quantitative < 0.017 ng/mL (0.000-0.055) Glucose (Fingerstick) 110 mg/dL (70-99) Medications Current Medications Pharmacy Consult (C.diff Med Screen By Rx) 1 each 1X ONCE MC ; Start 01/02/19 at 14:30; Stop 01/02/19 at 14:31; Status DC Sodium Chloride 1,000 ml @ 1,000 mls/hr Q1H PRN IV hypotension; Start 01/02/19 at 15:01; Stop 01/02/19 at 21:00; Status DC Sodium Chloride 1,000 ml @ 400 mls/hr Q2H30M PRN IV PATENCY; Start 01/02/19 at 15:01; Stop 01/03/19 at 03:00; Status DC Info (PHARMACY MONITORING -- do not chart) 1 each PRN DAILY PRN MC SEE COMMENTS; Start 01/02/19 at 15:15; Status UNV Info (PHARMACY MONITORING -- do not chart) 1 each PRN DAILY PRN MC SEE COMMENTS; Start 01/02/19 at 15:15; Stop 01/03/19 at 08:10; Status DC Acetaminophen (Tylenol) 650 mg PRN Q6HRS PRN PO FEVER; Start 01/02/19 at 16:15 Aspirin (Children'S Aspirin) 81 mg DAILY PO Last administered on 01/03/19at 08:13; Start 01/03/19 at 09:00 Calcium Carbonate/ Glycine (Oscal) 500 mg BIDWMEALS PO Last administered on 01/03/19at 08:13; Start 01/02/19 at 17:00 Calcium Carbonate/ Glycine (Tums) 500 mg PRN Q4HRS PRN PO INDIGESTION; Start 01/02/19 at 16:15 Carvedilol (Coreg) 3.125 mg BIDWMEALS PO Last administered on 01/03/19at 08:14; Start 01/02/19 at 17:00 Clopidogrel Bisulfate (Plavix) 75 mg DAILY PO ; Start 01/03/19 at 09:00 Famotidine (Pepcid) 20 mg HS PO Last administered on 01/02/19at 21:03; Start 01/02/19 at 21:00 Acetaminophen/ Hydrocodone Bitart (Lortab 5/325) 1 tab PRN Q6HRS PRN PO PAIN Last administered on 01/03/19at 02:08; Start 01/02/19 at 16:15 Isosorbide Mononitrate (Imdur) 30 mg DAILY PO Last administered on 01/03/19at 08:13; Start 01/03/19 at 09:00 Levothyroxine Sodium (Synthroid) 175 mcg DAILYAC PO Last administered on 01/03/19 08:13; Start 01/03/19 at 07:30 Linagliptin (Tradjenta) 5 mg DAILY PO Last administered on 01/03/19 08:13; Start 01/03/19 at 09:00 Zolpidem Tartrate (Ambien) 5 mg PRN QHS PRN PO sleep; Start 01/02/19 at 16:15 Non-Formulary Medication (Albuterol Sulfate (Ventolin Hfa Inhaler)) 1 puff Q6HRS PRN INH SHORTNESS OF BREATH; Start 01/02/19 at 16:15; Status UNV Atorvastatin Calcium (Lipitor) 40 mg QHS PO Last administered on 01/02/19 21:03; Start 01/02/19 at 21:00 Diphenhydramine HCl (Benadryl) 50 mg PRN Q6HRS PRN PO ITCHING Last administered on 01/03/19 02:59; Start 01/02/19 at 16:45 Non-Formulary Medication (Fluticasone Propionate (Flovent 110MCG Hfa)) 2 puff BID IH ; Start 01/02/19 at 21:00; Status UNV Levetiracetam (Keppra) 1,000 mg BID PO Last administered on 01/03/19 08:13; Start 01/02/19 at 21:00 Magnesium Oxide (Magnesium Oxide) 200 mg DAILY PO Last administered on 01/03/19 08:13; Start 01/03/19 at 09:00 Non-Formulary Medication (Meropenem (Merrem)) 500 mg DAILY IV ; Start 01/03/19 at 09:00; Status UNV Pramipexole Dihydrochloride (miraPEX) 0.25 mg DAILY PO Last administered on 01/03/19 08:12; Start 01/03/19 at 09:00 Albuterol Sulfate (Ventolin Neb Soln) 2.5 mg PRN Q6HRS PRN NEB SHORTNESS OF BREATH Last administered on 01/03/19 08:19; Start 01/02/19 at 16:45 Budesonide (Pulmicort) 0.5 mg RTBID NEB Last administered on 01/03/19 08:19; Start 01/02/19 at 20:00 Meropenem 500 mg/ Sodium Chloride 50 ml @ 100 mls/hr Q24H IV Last administered on 01/02/19at 18:36; Start 01/02/19 at 17:00; Stop 01/07/19 at 23:59 Lactobacillus Rhamnosus (Culturelle) 1 cap BID PO Last administered on 01/03/19at 08:14; Start 01/03/19 at 09:00 Info (PHARMACY MONITORING -- do not chart) 1 each PRN DAILY PRN MC SEE COMMENTS; Start 01/03/19 at 08:15 Sodium Chloride 1,000 ml @ 1,000 mls/hr Q1H PRN IV hypotension; Start 01/03/19 at 08:09; Stop 01/03/19 at 14:08 Albumin Human 200 ml @ 200 mls/hr 1X PRN PRN IV Hypotension; Start 01/03/19 at 08:15; Stop 01/03/19 at 14:14 Acetaminophen (Tylenol) 500 mg 1X PRN PRN PO MILD PAIN / TEMP; Start 01/03/19 at 08:15; Stop 01/04/19 at 08:14 Diphenhydramine HCl (Benadryl) 25 mg 1X PRN PRN IV ITCHING; Start 01/03/19 at 08:15; Stop 01/04/19 at 08:14 Diphenhydramine HCl (Benadryl) 25 mg 1X PRN PRN IV ITCHING; Start 01/03/19 at 08:15; Stop 01/04/19 at 08:14 Sodium Chloride 1,000 ml @ 400 mls/hr Q2H30M PRN IV PATENCY; Start 01/03/19 at 08:09; Stop 01/03/19 at 20:08 Active Scripts Active Isosorbide Mononitrate Er (Isosorbide Mononitrate) 30 Mg Tab.er.24h 30 Mg PO DAILY 30 Days Coreg (Carvedilol) 3.125 Mg Tablet 3.125 Mg PO BIDWMEALS Lipitor (Atorvastatin Calcium) 80 Mg Tablet 40 Mg PO HS Flovent 110MCG Hfa (Fluticasone Propionate) 12 Gm Aer.w.adap 2 Puff IH BID Zolpidem Tartrate 5 Mg Tablet 1 Tab PO QHS PRN Mirapex (Pramipexole Di-Hcl) 0.25 Mg Tablet 1 Tab PO DAILY Famotidine 20 Mg Tablet 20 Mg PO HS Ventolin Hfa Inhaler (Albuterol Sulfate) 18 Gm Hfa.aer.ad 1 Puff INH Q6HRS PRN Levothyroxine Sodium 175 Mcg Tablet 175 Mcg PO DAILYAC Merrem (Meropenem) 500 Mg Vial 500 Mg IV DAILY Reported Clopidogrel (Clopidogrel Bisulfate) 75 Mg Tablet 1 Tab PO DAILY Magnesium (Magnesium Oxide) 400 Mg Capsule 250 Mg PO DAILY Tums (Calcium Carbonate) 200 Mg Tab.chew 200 Mg PO PRN Q4HRS PRN Hydrocodone-Acetamin 5-325 mg (Hydrocodone/Acetaminophen) 1 Each Tablet 1 Each PO PRN Q6HRS PRN Aspirin 81 Mg Tab.chew 1 Tab PO DAILY Tradjenta (Linagliptin) 5 Mg Tablet 5 Mg PO DAILY Diphenhydramine Hcl 50 Mg Capsule 1 Cap PO PRN Calcium Carbonate 500 Mg Tablet 500 Mg PO BID Keppra (Levetiracetam) 1,000 Mg Tablet 1 Tab PO BID Tylenol (Acetaminophen) 325 Mg Tablet 650 Mg PO PRN Q6HRS PRN Vitals/I & O Vital Sign - Last 24 Hours 01/02/19 01/02/19 01/02/19 01/02/19 10:49 11:04 11:24 11:44 Temp 98.8 98.8 Pulse 90 94 92 98 Resp 29 24 B/P (MAP) 166/72 (103) 166/72 (103) 160/105 (123) 190/86 (120) Pulse Ox 99 100 98 99 O2 Delivery Room Air Room Air Room Air Room Air 01/02/19 01/02/19 01/02/19 01/02/19 12:04 12:07 12:44 13:04 Pulse 98 98 98 100 Resp 15 15 12 16 B/P (MAP) 200/86 (124) 164/71 (102) 182/83 (116) 189/88 (121) Pulse Ox 94 98 97 100 O2 Delivery Room Air Room Air Room Air Room Air 01/02/19 01/02/19 01/02/19 01/02/19 13:24 13:44 14:00 14:28 Temp 98.8 98.8 Pulse 92 90 97 Resp 16 13 24 B/P (MAP) 152/66 (94) 162/70 (100) 174/92 (119) Pulse Ox 99 O2 Delivery Room Air Room Air Room Air Room Air 01/02/19 01/02/19 01/02/19 01/02/19 18:00 18:35 19:45 20:00 Temp 98.6 98.2 98.6 98.2 Pulse 96 96 93 Resp 18 17 B/P (MAP) 170/71 (104) 170/71 169/74 (105) Pulse Ox 100 99 O2 Delivery Room Air Room Air Room Air 01/02/19 01/02/19 01/03/19 01/03/19 20:15 23:31 02:08 03:08 Temp 98.5 98.5 Pulse 88 Resp 18 B/P (MAP) 156/70 (98) Pulse Ox 99 99 99 97 O2 Delivery Room Air Room Air Room Air Room Air 01/03/19 01/03/19 01/03/19 01/03/19 03:25 07:20 08:13 08:14 Temp 99.3 98.0 99.3 98.0 Pulse 93 92 92 92 Resp 18 B/P (MAP) 178/56 (96) 136/61 (86) 136/61 136/61 Pulse Ox 97 97 O2 Delivery Room Air Room Air 01/03/19 01/03/19 01/03/19 08:22 08:24 09:54 Temp 98.1 98.1 Pulse 86 Resp 18 B/P (MAP) 169/76 Pulse Ox 97 97 O2 Delivery Room Air Room Air Intake and Output 01/02/19 01/02/19 01/03/19 14:59 22:59 06:59 Intake Total 300 ml 300 ml Output Total 700 ml Balance 300 ml -400 ml NICHOLE THORNTON MD January 03, 2019 10:01
--- NOTE | 2019-01-03 10:29 | PDOC ---
SUBJECTIVE ROS Seen on HD, No Complaints OBJECTIVE Vital Signs Vital Signs Date Time Temp Pulse Resp B/P (MAP) Pulse Ox O2 Delivery O2 Flow Rate FiO2 01/03/19 10:09 97.7 88 18 161/69 97.7 01/03/19 08:24 97 Room Air I & 0 Intake and Output 01/03/19 07:00 Intake Total 600 ml Output Total 700 ml Balance -100 ml Intake Oral 600 ml Output Urine Total 700 ml PHYSICAL EXAM Physical Exam GEN.: No apparent distress. HEENT: OM moist NECK: Supple, no JVD LUNGS: Clear to auscultation HEART: RRR, S1, S2 present. ABDOMEN: Soft, nontender. 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 Anemia- Hgb 7 PRBC as ordered by primary - didnt get it yesterday 1 Unit today on HD Aranesp as per protocol Misses HD treatments HTN- Home Antihypertensives COMMENT/RELEVANT DATA Meds Current Medications Medications (Trade) Dose Ordered Sig/[place] Start Time Stop Time Status Last Admin Dose Admin Acetaminophen (Tylenol) 500 mg 1X PRN PRN 01/03/19 08:15 01/04/19 08:14 Acetaminophen/ Hydrocodone Bitart (Lortab 5/325) 1 tab PRN Q6HRS PRN 01/02/19 16:15 01/03/19 02:08 1 TAB Albumin Human 200 ml @ 200 mls/hr 1X PRN PRN 01/03/19 08:15 01/03/19 14:14 Albuterol Sulfate (Ventolin Neb Soln) 2.5 mg PRN Q6HRS PRN 01/02/19 16:45 01/03/19 08:19 2.5 MG Aspirin (Children'S Aspirin) 81 mg DAILY 01/03/19 09:00 01/03/19 08:13 81 MG Atorvastatin Calcium (Lipitor) 40 mg QHS 01/02/19 21:00 01/02/19 21:03 40 MG Budesonide (Pulmicort) 0.5 mg RTBID 01/02/19 20:00 01/03/19 08:19 0.5 MG Calcium Carbonate/ Glycine (Oscal) 500 mg BIDWMEALS 01/02/19 17:00 01/03/19 08:13 500 MG Calcium Carbonate/ Glycine (Tums) 500 mg PRN Q4HRS PRN 01/02/19 16:15 Carvedilol (Coreg) 3.125 mg BIDWMEALS 01/02/19 17:00 01/03/19 08:14 3.125 MG Clopidogrel Bisulfate (Plavix) 75 mg DAILY 01/03/19 09:00 Diphenhydramine HCl (Benadryl) 25 mg 1X PRN PRN 01/03/19 08:15 01/04/19 08:14 Famotidine (Pepcid) 20 mg HS 01/02/19 21:00 01/02/19 21:03 20 MG Info (PHARMACY MONITORING -- do not chart) 1 each PRN DAILY PRN 01/03/19 08:15 Isosorbide Mononitrate (Imdur) 30 mg DAILY 01/03/19 09:00 01/03/19 08:13 30 MG Lactobacillus Rhamnosus (Culturelle) 1 cap BID 01/03/19 09:00 01/03/19 08:14 1 CAP Levetiracetam (Keppra) 1,000 mg BID 01/02/19 21:00 01/03/19 08:13 1,000 MG Levothyroxine Sodium (Synthroid) 175 mcg DAILYAC 01/03/19 07:30 01/03/19 08:13 175 MCG Linagliptin (Tradjenta) 5 mg DAILY 01/03/19 09:00 01/03/19 08:13 5 MG Magnesium Oxide (Magnesium Oxide) 200 mg DAILY 01/03/19 09:00 01/03/19 08:13 200 MG Meropenem 500 mg/ Sodium Chloride 50 ml @ 100 mls/hr Q24H 01/02/19 17:00 01/07/19 23:59 01/02/19 18:36 100 MLS/HR Non-Formulary Medication (Albuterol Sulfate (Ventolin Hfa Inhaler)) 1 puff Q6HRS PRN 01/02/19 16:15 UNV Non-Formulary Medication (Fluticasone Propionate (Flovent 110MCG Hfa)) 2 puff BID 01/02/19 21:00 UNV Non-Formulary Medication (Meropenem (Merrem)) 500 mg DAILY 01/03/19 09:00 UNV Pharmacy Consult (C.diff Med Screen By Rx) 1 each 1X ONCE 01/02/19 14:30 01/02/19 14:31 DC Pramipexole Dihydrochloride (miraPEX) 0.25 mg DAILY 01/03/19 09:00 01/03/19 08:12 0.25 MG Sodium Chloride 1,000 ml @ 400 mls/hr Q2H30M PRN 01/03/19 08:09 01/03/19 20:08 Zolpidem Tartrate (Ambien) 5 mg PRN QHS PRN 01/02/19 16:15 Lab Laboratory Tests Test 01/02/19 10:49 01/02/19 15:15 01/02/19 18:14 01/02/19 20:43 White Blood Count 6.0 x10^3/uL (4.0-11.0) Red Blood Count 2.40 x10^6/uL (4.30-5.70) Hemoglobin 7.0 g/dL (13.0-17.5) Hematocrit 21.3 % (39.0-53.0) Mean Corpuscular Volume 89 fL (79-100) Mean Corpuscular Hemoglobin 29 pg (25-35) Mean Corpuscular Hemoglobin Concent 33 g/dL (31-37) Red Cell Distribution Width 16.1 % (11.5-14.5) Platelet Count 176 x10^3/uL (140-400) Neutrophils (%) (Auto) 71 % (31-73) Lymphocytes (%) (Auto) 13 % (24-48) Monocytes (%) (Auto) 9 % (0-9) Eosinophils (%) (Auto) 5 % (0-3) Basophils (%) (Auto) 3 % (0-3) Neutrophils # (Auto) 4.3 x10^3uL (1.8-7.7) Lymphocytes # (Auto) 0.8 x10^3/uL (1.0-4.8) Monocytes # (Auto) 0.5 x10^3/uL (0.0-1.1) Eosinophils # (Auto) 0.3 x10^3/uL (0.0-0.7) Basophils # (Auto) 0.2 x10^3/uL (0.0-0.2) Prothrombin Time 13.8 SEC (11.7-14.0) Prothromb Time International Ratio 1.1 (0.8-1.1) Sodium Level 142 mmol/L (136-145) Potassium Level 4.9 mmol/L (3.5-5.1) Chloride Level 107 mmol/L (98-107) Carbon Dioxide Level 23 mmol/L (21-32) Anion Gap 12 (6-14) Blood Urea Nitrogen 55 mg/dL (8-26) Creatinine 5.7 mg/dL (0.7-1.3) Estimated GFR (Cockcroft-Gault) 12.7 BUN/Creatinine Ratio 10 (6-20) Glucose Level 158 mg/dL (70-99) Lactic Acid Level 0.6 mmol/L (0.4-2.0) Calcium Level 8.7 mg/dL (8.5-10.1) Magnesium Level 1.8 mg/dL (1.8-2.4) Total Bilirubin 0.3 mg/dL (0.2-1.0) Aspartate Amino Transf (AST/SGOT) 18 U/L (15-37) Alanine Aminotransferase (ALT/SGPT) 10 U/L (16-63) Alkaline Phosphatase 60 U/L (46-116) Creatine Kinase 210 U/L (39-308) Creatine Kinase MB (Mass) 2.3 ng/mL (0.0-3.6) Creatine Kinase MB Relative Index 1.1 % (0-4) Troponin I Quantitative 0.028 ng/mL (0.000-0.055) 0.021 ng/mL (0.000-0.055) PB-Ynf-D-Type Natriuretic Peptide 16983 pg/mL (0-124) Total Protein 7.4 g/dL (6.4-8.2) Albumin 2.5 g/dL (3.4-5.0) Albumin/Globulin Ratio 0.5 (1.0-1.7) Lipase 257 U/L (73-393) Glucose (Fingerstick) 113 mg/dL (70-99) 187 mg/dL (70-99) Test 01/02/19 21:05 01/03/19 08:20 Troponin I Quantitative < 0.017 ng/mL (0.000-0.055) Glucose (Fingerstick) 110 mg/dL (70-99) Results All relevant outside records, renal labs, imaging studies, telemetry/EKG's were reviewed. MINA RICHARDSON MD January 03, 2019 10:29
--- NOTE | 2019-01-03 11:30 | NUR ---
Wound Care: Patient seen per wound care consult. See wound assessment. Patient is well known to us from previous admissions and from the wound clinic. Wound cleansed and assessed. Orders for wound vac at 125mmHg continuous. Skin prepped and an ostomy ring placed to rell-wound, collagen pack into wound bed, 2 pieces of rivera foam placed in wound bed, track pad applied directly to wound. A good seal maintained at 125mmHg continuos. No other wounds noted. patient in dialysis at this time. Wound care will follow up with patient on Sunday for wound vac dressing change.
--- NOTE | 2019-01-03 14:15 | NUR ---
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
--- NOTE | 2019-01-03 15:07 | NUR ---
PICC INSERTION NOTE Procedure: Following complete explanation of the PICC procedure including the indications, risks, and potential complications, informed consent was obtained. The possibility for infection was discussed along with signs, symptoms, and prevention. All the questions were answered. Written and verbal patient education was provided. Hand hygiene performed. Standardized central line checklist was utilized. The patient was placed in the supine position, the arm was prepped with chlorhexidine and patient draped with maximum sterile barrier. 0 mL 1% lidocaine was infiltrated into the skin to provide local anesthesia. A thorough assessment of RIGHT upper extremity completed. Using real-time ultrasound guidance and standardized micro puncture set, the BASILIC vein was ACCESSED VIA EXISTING LINE and a peel away sheath was placed using the modified Seldinger technique. A tip location device was used to ensure adequate catheter placement. The catheter was secured using a securement device and an antimicrobial patch was applied directly on the insertion site followed by a transparent dressing. All ports withdraw blood and flush without resistance. Patient tolerated the procedure without apparent complication(s). SINGLE Lumen Power PICC placement successful and uncomplicated. Placement verified by EKG tip confirmation system and/or chest x-ray. Tip located in the SVC Complications: NONE CATHETER TRIMED AT 43CM WITH 0CM AT INSERTION
--- NOTE | 2019-01-03 15:20 | NUR ---
SS following for discharge planning. SS reviewed pt chart. Pt is from home with spouse and is currently on room air. Pt has had previous services with [facility], ; fax [phone]. Pt is also on services with [facility] in [place] for dialysis. SS will continue to follow for discharge planning.
--- NOTE | 2019-01-03 15:45 | RAD ---
EXAM: AP View of the chest DATE: 01/03/2019 3:09 PM INDICATION: PICC placement COMPARISON: 01/02/2019, 12/22/2018 FINDINGS/ IMPRESSION: Right upper extremity PICC is seen to level mediastinum/proximal SVC however the distal tip is not visualized, based on limitations of this radiograph. Bilateral brachiocephalic stents are seen. Stable cardiomegaly. Mediastinal and hilar contours are stable. No focal parenchymal airspace opacity. No pleural effusion or pneumothorax. Electronically signed by: Raymond Givens MD (01/03/2019 3:42 PM) [id number]
[2019-01-03] MEDS: MEROPENEM 500 MG in IV NORMAL SALINE 50ML 50 ML IV SCH (17:38)
[2019-01-03] MEDS: FAMOTIDINE 20 MG TABLET. PO SCH (20:59)
[2019-01-03] MEDS: ATORVASTATIN CALCIUM 40 MG TABLET. PO SCH (21:00)
[2019-01-04 03:00] VITALS: BP 134/76
[2019-01-04 05:25] LABS: BASO # 0.1 x10^3/uL (0.0-0.2); BASO % 3 % (0-3); EOS # 0.2 x10^3/uL (0.0-0.7); EOS % 5 % (0-3); HEMATOCRIT 34.4 % (39.0-53.0); HEMOGLOBIN 11.3 g/dL (13.0-17.5); LYMPH # 0.6 x10^3/uL (1.0-4.8); LYMPH % 15 % (24-48); MEAN CORPUSCULAR HEMOGLOBIN 29 pg (25-35); MEAN CORPUSCULAR HGB CONC 33 g/dL (31-37); MEAN CORPUSCULAR VOLUME 88 fL (79-100); MONO # 0.5 x10^3/uL (0.0-1.1); MONO % 12 % (0-9); NEUT # 2.7 x10^3uL (1.8-7.7); NEUT % 65 % (31-73); PLATELET COUNT 141 x10^3/uL (140-400); RED BLOOD COUNT 3.91 x10^6/uL (4.30-5.70); WHITE BLOOD COUNT 4.1 x10^3/uL (4.0-11.0)
[2019-01-04 05:52] LABS: ALBUMIN 2.4 g/dL (3.4-5.0); CALCIUM 8.6 mg/dL (8.5-10.1); CREATININE 3.8 mg/dL (0.7-1.3); GFR 20.3; PHOSPHORUS 2.9 mg/dL (2.6-4.7); POTASSIUM 4.4 mmol/L (3.5-5.1)
[2019-01-04 07:25] VITALS: BP 156/66
[2019-01-04] MEDS: CARVEDILOL 3.125 MG TABLET. PO SCH ×2 (08:00→18:10)
[2019-01-04] MEDS: CALCIUM CARBONATE 500 MG TABLET PO SCH ×2 (08:00→18:08)
[2019-01-04] MEDS: ALBUTEROL SULFATE 2.5 MG/3 ML NEBU. NEB PRN (08:51)
[2019-01-04] MEDS: BUDESONIDE 0.5 MG/2 ML NEBU. NEB SCH ×2 (08:52→20:39)
[2019-01-04] MEDS: levETIRAcetam 500 MG TABLET PO SCH ×2 (09:00→20:23)
[2019-01-04] MEDS: LACTOBACILLUS RHAMNOSUS GG 1 CAPSULE. PO SCH ×2 (09:00→20:22)
--- NOTE | 2019-01-04 10:07 | PDOC ---
PROGRESS NOTES History of Present Illness History of Present Illness Images: Images Chest x-ray shows vascular congestion Assessment/Plan Assessment/Plan Severe noncompliance with dialysis with secondary azotemia and renal failure falling overload chest pain severe anemia with a hemoglobin of 7 Bleeding right foot transmetatarsal amputation chronic wound ESRD Moderate coronary artery disease in the left anterior descending. Stent in the left circumflex vessel which had previous distal occlusion which now had some flowl. No new significant lesions were identified. Small nondominant right coronary artery with a 70% proximal lesion. Cardiomegaly with extensive coronary artery disease. morbid obesity Patient is a pleasant middle-aged male well-known to our service He is severely noncompliant with his dialysis and his wound appointments Interval amputations of the fourth and fifth digits as well as much of the metatarsal bones. Surrounding soft tissue gas may relate to recent surgical intervention. Correlate with history in determining further evaluation if osteomyelitis is a concern. wound vac disconnected last night Plan Admit Consult cardiology and nephrology Emergent dialysis Transfuse 2 units packed red blood cells Home meds Wound care Frequent labs Full code PT OT if possible Long-term prognosis extremely guarded if he doesn't start going to dialysis transfuse 1 unit PRBC'S 01/03 34 MIN PT EXAM, CHART REVIEW, > 50% OF TIME SPENT with exam, chart review, pt care coordination Vitals Vitals Vital Signs Date Time Temp Pulse Resp B/P (MAP) Pulse Ox O2 Delivery O2 Flow Rate FiO2 01/04/19 08:53 86 Room Air 01/04/19 07:25 98.4 89 20 156/66 (96) 98.4 Physical Exam Physical Exam Physcial Exam: GEN.: very weak HEENT: His face is swollen NECK: Supple, positive JVD LUNGS: Bibasilar crackles HEART: RRR, S1, S2 present. Peripheral pulses intact ABDOMEN: Soft, nontender. Positive bowel sounds no organomegaly EXTREMITIES: Right BKA NEUROLOGIC: Normal speech, normal tone. A&O x 3 PSYCHIATRIC: Depressed SKIN: No ulcerations or rashes foot wound large // minimal granulation tissue VASCULAR: Good capillary refill except foot General: Alert, Oriented X3, Cooperative Lungs: Clear Abdomen: Soft Labs LABS Examination: FOOT RIGHT 3V History: WOUND ON RIGHT FOOT RECENT TOE REMOVAL SURGERY Comparison/Correlation: 09/13/2018 right foot 3 view x-ray exam Findings: Total 3 images of the right foot were obtained. Vascular calcifications noted. Amputation of the great toe distal phalanx in the distal aspect of the proximal phalanx is noted. Amputation of the fourth and fifth digits noted. Amputation of nearly the entire fourth metatarsal bone from the proximal shaft level distally is noted. Amputation of the fifth metatarsal bone from the proximal metaphyseal level noted. Soft tissue wound in this distribution noted. Soft tissue gas in this distribution is suspected. Surrounding bandages noted. Third digit proximal phalangeal midshaft fracture deformity is present with plantar angulation. Small calcaneal spur is present. Spurring along the dorsal talonavicular joint noted. Impression: Third digit proximal phalangeal fracture is new since the prior exam. Interval amputations of the fourth and fifth digits as well as much of the metatarsal bones. Surrounding soft tissue gas may relate to recent surgical intervention. Correlate with history in determining further evaluation if osteomyelitis is a concern. Electronically signed by: Mil Flores MD (11/25/2018 1:59 PM) [id number] Laboratory Tests Test 01/03/19 17:11 01/03/19 20:41 01/04/19 04:00 01/04/19 08:07 Glucose (Fingerstick) 132 mg/dL (70-99) 163 mg/dL (70-99) 194 mg/dL (70-99) White Blood Count 4.1 x10^3/uL (4.0-11.0) Red Blood Count 3.91 x10^6/uL (4.30-5.70) Hemoglobin 11.3 g/dL (13.0-17.5) Hematocrit 34.4 % (39.0-53.0) Mean Corpuscular Volume 88 fL (79-100) Mean Corpuscular Hemoglobin 29 pg (25-35) Mean Corpuscular Hemoglobin Concent 33 g/dL (31-37) Red Cell Distribution Width 16.0 % (11.5-14.5) Platelet Count 141 x10^3/uL (140-400) Neutrophils (%) (Auto) 65 % (31-73) Lymphocytes (%) (Auto) 15 % (24-48) Monocytes (%) (Auto) 12 % (0-9) Eosinophils (%) (Auto) 5 % (0-3) Basophils (%) (Auto) 3 % (0-3) Neutrophils # (Auto) 2.7 x10^3uL (1.8-7.7) Lymphocytes # (Auto) 0.6 x10^3/uL (1.0-4.8) Monocytes # (Auto) 0.5 x10^3/uL (0.0-1.1) Eosinophils # (Auto) 0.2 x10^3/uL (0.0-0.7) Basophils # (Auto) 0.1 x10^3/uL (0.0-0.2) Sodium Level 137 mmol/L (136-145) Potassium Level 4.4 mmol/L (3.5-5.1) Chloride Level 101 mmol/L (98-107) Carbon Dioxide Level 28 mmol/L (21-32) Anion Gap 8 (6-14) Blood Urea Nitrogen 27 mg/dL (8-26) Creatinine 3.8 mg/dL (0.7-1.3) Estimated GFR (Cockcroft-Gault) 20.3 Glucose Level 129 mg/dL (70-99) Calcium Level 8.6 mg/dL (8.5-10.1) Phosphorus Level 2.9 mg/dL (2.6-4.7) Albumin 2.4 g/dL (3.4-5.0) Assessment and Plan Assessmemt and Plan Problems Medical Problems: (1) Elevated brain natriuretic peptide (BNP) level Status: Acute Comment Review of Relevant I have reviewed the following items lila (where applicable) has been applied. Labs Laboratory Tests Test 01/02/19 10:49 01/02/19 15:15 01/02/19 18:14 01/02/19 20:43 White Blood Count 6.0 x10^3/uL (4.0-11.0) Red Blood Count 2.40 x10^6/uL (4.30-5.70) Hemoglobin 7.0 g/dL (13.0-17.5) Hematocrit 21.3 % (39.0-53.0) Mean Corpuscular Volume 89 fL (79-100) Mean Corpuscular Hemoglobin 29 pg (25-35) Mean Corpuscular Hemoglobin Concent 33 g/dL (31-37) Red Cell Distribution Width 16.1 % (11.5-14.5) Platelet Count 176 x10^3/uL (140-400) Neutrophils (%) (Auto) 71 % (31-73) Lymphocytes (%) (Auto) 13 % (24-48) Monocytes (%) (Auto) 9 % (0-9) Eosinophils (%) (Auto) 5 % (0-3) Basophils (%) (Auto) 3 % (0-3) Neutrophils # (Auto) 4.3 x10^3uL (1.8-7.7) Lymphocytes # (Auto) 0.8 x10^3/uL (1.0-4.8) Monocytes # (Auto) 0.5 x10^3/uL (0.0-1.1) Eosinophils # (Auto) 0.3 x10^3/uL (0.0-0.7) Basophils # (Auto) 0.2 x10^3/uL (0.0-0.2) Prothrombin Time 13.8 SEC (11.7-14.0) Prothromb Time International Ratio 1.1 (0.8-1.1) Sodium Level 142 mmol/L (136-145) Potassium Level 4.9 mmol/L (3.5-5.1) Chloride Level 107 mmol/L (98-107) Carbon Dioxide Level 23 mmol/L (21-32) Anion Gap 12 (6-14) Blood Urea Nitrogen 55 mg/dL (8-26) Creatinine 5.7 mg/dL (0.7-1.3) Estimated GFR (Cockcroft-Gault) 12.7 BUN/Creatinine Ratio 10 (6-20) Glucose Level 158 mg/dL (70-99) Lactic Acid Level 0.6 mmol/L (0.4-2.0) Calcium Level 8.7 mg/dL (8.5-10.1) Magnesium Level 1.8 mg/dL (1.8-2.4) Total Bilirubin 0.3 mg/dL (0.2-1.0) Aspartate Amino Transf (AST/SGOT) 18 U/L (15-37) Alanine Aminotransferase (ALT/SGPT) 10 U/L (16-63) Alkaline Phosphatase 60 U/L (46-116) Creatine Kinase 210 U/L (39-308) Creatine Kinase MB (Mass) 2.3 ng/mL (0.0-3.6) Creatine Kinase MB Relative Index 1.1 % (0-4) Troponin I Quantitative 0.028 ng/mL (0.000-0.055) 0.021 ng/mL (0.000-0.055) DX-Ufn-A-Type Natriuretic Peptide 35294 pg/mL (0-124) Total Protein 7.4 g/dL (6.4-8.2) Albumin 2.5 g/dL (3.4-5.0) Albumin/Globulin Ratio 0.5 (1.0-1.7) Lipase 257 U/L (73-393) Glucose (Fingerstick) 113 mg/dL (70-99) 187 mg/dL (70-99) Test 01/02/19 21:05 01/03/19 08:20 01/03/19 17:11 01/03/19 20:41 Troponin I Quantitative < 0.017 ng/mL (0.000-0.055) Glucose (Fingerstick) 110 mg/dL (70-99) 132 mg/dL (70-99) 163 mg/dL (70-99) Test 01/04/19 04:00 01/04/19 08:07 White Blood Count 4.1 x10^3/uL (4.0-11.0) Red Blood Count 3.91 x10^6/uL (4.30-5.70) Hemoglobin 11.3 g/dL (13.0-17.5) Hematocrit 34.4 % (39.0-53.0) Mean Corpuscular Volume 88 fL (79-100) Mean Corpuscular Hemoglobin 29 pg (25-35) Mean Corpuscular Hemoglobin Concent 33 g/dL (31-37) Red Cell Distribution Width 16.0 % (11.5-14.5) Platelet Count 141 x10^3/uL (140-400) Neutrophils (%) (Auto) 65 % (31-73) Lymphocytes (%) (Auto) 15 % (24-48) Monocytes (%) (Auto) 12 % (0-9) Eosinophils (%) (Auto) 5 % (0-3) Basophils (%) (Auto) 3 % (0-3) Neutrophils # (Auto) 2.7 x10^3uL (1.8-7.7) Lymphocytes # (Auto) 0.6 x10^3/uL (1.0-4.8) Monocytes # (Auto) 0.5 x10^3/uL (0.0-1.1) Eosinophils # (Auto) 0.2 x10^3/uL (0.0-0.7) Basophils # (Auto) 0.1 x10^3/uL (0.0-0.2) Sodium Level 137 mmol/L (136-145) Potassium Level 4.4 mmol/L (3.5-5.1) Chloride Level 101 mmol/L (98-107) Carbon Dioxide Level 28 mmol/L (21-32) Anion Gap 8 (6-14) Blood Urea Nitrogen 27 mg/dL (8-26) Creatinine 3.8 mg/dL (0.7-1.3) Estimated GFR (Cockcroft-Gault) 20.3 Glucose Level 129 mg/dL (70-99) Calcium Level 8.6 mg/dL (8.5-10.1) Phosphorus Level 2.9 mg/dL (2.6-4.7) Albumin 2.4 g/dL (3.4-5.0) Glucose (Fingerstick) 194 mg/dL (70-99) Laboratory Tests Test 01/03/19 17:11 01/03/19 20:41 01/04/19 04:00 01/04/19 08:07 Glucose (Fingerstick) 132 mg/dL (70-99) 163 mg/dL (70-99) 194 mg/dL (70-99) White Blood Count 4.1 x10^3/uL (4.0-11.0) Red Blood Count 3.91 x10^6/uL (4.30-5.70) Hemoglobin 11.3 g/dL (13.0-17.5) Hematocrit 34.4 % (39.0-53.0) Mean Corpuscular Volume 88 fL (79-100) Mean Corpuscular Hemoglobin 29 pg (25-35) Mean Corpuscular Hemoglobin Concent 33 g/dL (31-37) Red Cell Distribution Width 16.0 % (11.5-14.5) Platelet Count 141 x10^3/uL (140-400) Neutrophils (%) (Auto) 65 % (31-73) Lymphocytes (%) (Auto) 15 % (24-48) Monocytes (%) (Auto) 12 % (0-9) Eosinophils (%) (Auto) 5 % (0-3) Basophils (%) (Auto) 3 % (0-3) Neutrophils # (Auto) 2.7 x10^3uL (1.8-7.7) Lymphocytes # (Auto) 0.6 x10^3/uL (1.0-4.8) Monocytes # (Auto) 0.5 x10^3/uL (0.0-1.1) Eosinophils # (Auto) 0.2 x10^3/uL (0.0-0.7) Basophils # (Auto) 0.1 x10^3/uL (0.0-0.2) Sodium Level 137 mmol/L (136-145) Potassium Level 4.4 mmol/L (3.5-5.1) Chloride Level 101 mmol/L (98-107) Carbon Dioxide Level 28 mmol/L (21-32) Anion Gap 8 (6-14) Blood Urea Nitrogen 27 mg/dL (8-26) Creatinine 3.8 mg/dL (0.7-1.3) Estimated GFR (Cockcroft-Gault) 20.3 Glucose Level 129 mg/dL (70-99) Calcium Level 8.6 mg/dL (8.5-10.1) Phosphorus Level 2.9 mg/dL (2.6-4.7) Albumin 2.4 g/dL (3.4-5.0) Microbiology 01/02/19 Blood Culture - Preliminary, Resulted NO GROWTH AFTER 1 DAY Medications Current Medications Pharmacy Consult (C.diff Med Screen By Rx) 1 each 1X ONCE [facility] ; Start 01/02/19 at 14:30; Stop 01/02/19 at 14:31; Status DC Sodium Chloride 1,000 ml @ 1,000 mls/hr Q1H PRN IV hypotension; Start 01/02/19 at 15:01; Stop 01/02/19 at 21:00; Status DC Sodium Chloride 1,000 ml @ 400 mls/hr Q2H30M PRN IV PATENCY; Start 01/02/19 at 15:01; Stop 01/03/19 at 03:00; Status DC Info (PHARMACY MONITORING -- do not chart) 1 each PRN DAILY PRN [facility] SEE COMMENTS; Start 01/02/19 at 15:15; Status UNV Info (PHARMACY MONITORING -- do not chart) 1 each PRN DAILY PRN [facility] SEE COMMENTS; Start 01/02/19 at 15:15; Stop 01/03/19 at 08:10; Status DC Acetaminophen (Tylenol) 650 mg PRN Q6HRS PRN PO FEVER; Start 01/02/19 at 16:15 Aspirin (Children'S Aspirin) 81 mg DAILY PO Last administered on 01/03/19at 08:13; Start 01/03/19 at 09:00 Calcium Carbonate/ Glycine (Oscal) 500 mg BIDWMEALS PO Last administered on 01/03/19at 17:36; Start 01/02/19 at 17:00 Calcium Carbonate/ Glycine (Tums) 500 mg PRN Q4HRS PRN PO INDIGESTION; Start 01/02/19 at 16:15 Carvedilol (Coreg) 3.125 mg BIDWMEALS PO Last administered on 01/03/19at 17:37; Start 01/02/19 at 17:00 Clopidogrel Bisulfate (Plavix) 75 mg DAILY PO ; Start 01/03/19 at 09:00; Stop 01/03/19 at 13:15; Status DC Famotidine (Pepcid) 20 mg HS PO Last administered on 01/03/19at 20:59; Start 01/02/19 at 21:00 Acetaminophen/ Hydrocodone Bitart (Lortab 5/325) 1 tab PRN Q6HRS PRN PO PAIN Last administered on 01/03/19at 21:00; Start 01/02/19 at 16:15 Isosorbide Mononitrate (Imdur) 30 mg DAILY PO Last administered on 01/03/19at 08:13; Start 01/03/19 at 09:00 Levothyroxine Sodium (Synthroid) 175 mcg DAILYAC PO Last administered on 01/03/19at 08:13; Start 01/03/19 at 07:30 Linagliptin (Tradjenta) 5 mg DAILY PO Last administered on 01/03/19at 08:13; Start 01/03/19 at 09:00 Zolpidem Tartrate (Ambien) 5 mg PRN QHS PRN PO sleep; Start 01/02/19 at 16:15 Non-Formulary Medication (Albuterol Sulfate (Ventolin Hfa Inhaler)) 1 puff Q6HRS PRN INH SHORTNESS OF BREATH; Start 01/02/19 at 16:15; Status UNV Atorvastatin Calcium (Lipitor) 40 mg QHS PO Last administered on 01/03/19 21:00; Start 01/02/19 at 21:00 Diphenhydramine HCl (Benadryl) 50 mg PRN Q6HRS PRN PO ITCHING Last administered on 01/03/19 02:59; Start 01/02/19 at 16:45 Non-Formulary Medication (Fluticasone Propionate (Flovent 110MCG Hfa)) 2 puff BID IH ; Start 01/02/19 at 21:00; Status UNV Levetiracetam (Keppra) 1,000 mg BID PO Last administered on 01/03/19 20:59; Start 01/02/19 at 21:00 Magnesium Oxide (Magnesium Oxide) 200 mg DAILY PO Last administered on 01/03/19 08:13; Start 01/03/19 at 09:00 Non-Formulary Medication (Meropenem (Merrem)) 500 mg DAILY IV ; Start 01/03/19 at 09:00; Status UNV Pramipexole Dihydrochloride (miraPEX) 0.25 mg DAILY PO Last administered on 01/03/19 08:12; Start 01/03/19 at 09:00 Albuterol Sulfate (Ventolin Neb Soln) 2.5 mg PRN Q6HRS PRN NEB SHORTNESS OF BREATH Last administered on 01/04/19 08:51; Start 01/02/19 at 16:45 Budesonide (Pulmicort) 0.5 mg RTBID NEB Last administered on 01/04/19 08:52; Start 01/02/19 at 20:00 Meropenem 500 mg/ Sodium Chloride 50 ml @ 100 mls/hr Q24H IV Last administered on 01/03/19 17:38; Start 01/02/19 at 17:00; Stop 01/07/19 at 23:59 Lactobacillus Rhamnosus (Culturelle) 1 cap BID PO Last administered on 01/03/19at 21:00; Start 01/03/19 at 09:00 Info (PHARMACY MONITORING -- do not chart) 1 each PRN DAILY PRN [facility] SEE COMMENTS; Start 01/03/19 at 08:15 Sodium Chloride 1,000 ml @ 1,000 mls/hr Q1H PRN IV hypotension; Start 01/03/19 at 08:09; Stop 01/03/19 at 14:08; Status DC Albumin Human 200 ml @ 200 mls/hr 1X PRN PRN IV Hypotension; Start 01/03/19 at 08:15; Stop 01/03/19 at 14:14; Status DC Acetaminophen (Tylenol) 500 mg 1X PRN PRN PO MILD PAIN / TEMP; Start 01/03/19 at 08:15; Stop 01/04/19 at 08:14; Status DC Diphenhydramine HCl (Benadryl) 25 mg 1X PRN PRN IV ITCHING; Start 01/03/19 at 08:15; Stop 01/04/19 at 08:14; Status DC Diphenhydramine HCl (Benadryl) 25 mg 1X PRN PRN IV ITCHING; Start 01/03/19 at 08:15; Stop 01/04/19 at 08:14; Status DC Sodium Chloride 1,000 ml @ 400 mls/hr Q2H30M PRN IV PATENCY; Start 01/03/19 at 08:09; Stop 01/03/19 at 20:08; Status DC Active Scripts Active Isosorbide Mononitrate Er (Isosorbide Mononitrate) 30 Mg Tab.er.24h 30 Mg PO DAILY 30 Days Coreg (Carvedilol) 3.125 Mg Tablet 3.125 Mg PO BIDWMEALS Lipitor (Atorvastatin Calcium) 80 Mg Tablet 40 Mg PO HS Flovent 110MCG Hfa (Fluticasone Propionate) 12 Gm Aer.w.adap 2 Puff IH BID Zolpidem Tartrate 5 Mg Tablet 1 Tab PO QHS PRN Mirapex (Pramipexole Di-Hcl) 0.25 Mg Tablet 1 Tab PO DAILY Famotidine 20 Mg Tablet 20 Mg PO HS Ventolin Hfa Inhaler (Albuterol Sulfate) 18 Gm Hfa.aer.ad 1 Puff INH Q6HRS PRN Levothyroxine Sodium 175 Mcg Tablet 175 Mcg PO DAILYAC Merrem (Meropenem) 500 Mg Vial 500 Mg IV DAILY Reported Magnesium (Magnesium Oxide) 400 Mg Capsule 250 Mg PO DAILY Tums (Calcium Carbonate) 200 Mg Tab.chew 200 Mg PO PRN Q4HRS PRN Hydrocodone-Acetamin 5-325 mg (Hydrocodone/Acetaminophen) 1 Each Tablet 1 Each PO PRN Q6HRS PRN Aspirin 81 Mg Tab.chew 1 Tab PO DAILY Tradjenta (Linagliptin) 5 Mg Tablet 5 Mg PO DAILY Diphenhydramine Hcl 50 Mg Capsule 1 Cap PO PRN Calcium Carbonate 500 Mg Tablet 500 Mg PO BID Keppra (Levetiracetam) 1,000 Mg Tablet 1 Tab PO BID Tylenol (Acetaminophen) 325 Mg Tablet 650 Mg PO PRN Q6HRS PRN Vitals/I & O Vital Sign - Last 24 Hours 01/03/19 01/03/19 01/03/19 01/03/19 10:09 10:23 10:30 10:46 Temp 97.7 97.9 97.9 98.1 97.7 97.9 97.9 98.1 Pulse 88 89 90 85 Resp 18 18 18 18 B/P (MAP) 161/69 147/74 171/72 155/73 01/03/19 01/03/19 01/03/19 01/03/19 11:00 11:01 11:05 15:30 Temp 98.4 98.4 98.2 98.4 98.4 98.2 Pulse 88 87 91 Resp 18 18 14 B/P (MAP) 189/82 170/80 159/72 (101) Pulse Ox 100 O2 Delivery Room Air Room Air 01/03/19 01/03/19 01/03/19 01/03/19 17:37 19:00 20:15 21:00 Temp 98.3 98.3 Pulse 91 90 Resp 20 B/P (MAP) 159/72 152/76 (101) Pulse Ox 98 O2 Delivery Room Air Room Air Room Air 01/03/19 01/03/19 01/04/19 01/04/19 22:00 23:00 03:00 07:25 Temp 98.1 99.6 98.4 98.1 99.6 98.4 Pulse 96 91 89 Resp 20 20 20 B/P (MAP) 140/68 (92) 134/76 (95) 156/66 (96) Pulse Ox 96 97 99 O2 Delivery Room Air Room Air Room Air Room Air 01/04/19 01/04/19 08:00 08:53 Pulse Ox 86 O2 Delivery Room Air Room Air Intake and Output 01/03/19 01/03/19 01/04/19 14:59 22:59 06:59 Intake Total 1400 ml 540 ml 600 ml Output Total 450 ml 300 ml Balance 1400 ml 90 ml 300 ml NICHOLE THORNTON MD January 04, 2019 10:07
[2019-01-04 11:15] VITALS: BP 156/43
[2019-01-04] MEDS ORDERED: IV NORMAL SALINE 1000ML BAG 1,000 ML IV PRN ×2 (12:00)
--- NOTE | 2019-01-04 14:28 | PDOC ---
Dialysis Progress Note Dialysis Note Dialysis Note Seen on Hemodialysis, tolerating treatment Well Vitals on Hemodialysis: 174/69 86 afeb General Appearance: Awake: Alert Oriented x 3 Neck: No JVD or JVP Chest: CTA Antonio Heart: S1 S2 Abdomen - Soft NTND Extremities - No Edema ESRD Dialysis as below F 180 NR 3.0 Hrs 3 K 2.5 Ca 140 Na 35 HC03 Qb 350 + Qd 500+ Heparin 0 Units Uf 3-4 Kgs or to dry weight as tolerated May give 25-50 gms of 25% Albumin if needed to maintain Hemodynamic stability Treatment plan reviewed and discussed with consultant teacher Vitals Vital Signs Vital Signs Date Time Temp Pulse Resp B/P (MAP) Pulse Ox O2 Delivery O2 Flow Rate FiO2 01/04/19 11:15 98.3 87 16 156/43 (80) 97 Room Air 98.3 Labs Last Labs Laboratory Tests Test 01/02/19 15:15 01/02/19 18:14 01/02/19 20:43 01/02/19 21:05 Troponin I Quantitative 0.021 ng/mL (0.000-0.055) < 0.017 ng/mL (0.000-0.055) Glucose (Fingerstick) 113 mg/dL (70-99) 187 mg/dL (70-99) Test 01/03/19 08:20 01/03/19 17:11 01/03/19 20:41 01/04/19 04:00 Glucose (Fingerstick) 110 mg/dL (70-99) 132 mg/dL (70-99) 163 mg/dL (70-99) White Blood Count 4.1 x10^3/uL (4.0-11.0) Red Blood Count 3.91 x10^6/uL (4.30-5.70) Hemoglobin 11.3 g/dL (13.0-17.5) Hematocrit 34.4 % (39.0-53.0) Mean Corpuscular Volume 88 fL (79-100) Mean Corpuscular Hemoglobin 29 pg (25-35) Mean Corpuscular Hemoglobin Concent 33 g/dL (31-37) Red Cell Distribution Width 16.0 % (11.5-14.5) Platelet Count 141 x10^3/uL (140-400) Neutrophils (%) (Auto) 65 % (31-73) Lymphocytes (%) (Auto) 15 % (24-48) Monocytes (%) (Auto) 12 % (0-9) Eosinophils (%) (Auto) 5 % (0-3) Basophils (%) (Auto) 3 % (0-3) Neutrophils # (Auto) 2.7 x10^3uL (1.8-7.7) Lymphocytes # (Auto) 0.6 x10^3/uL (1.0-4.8) Monocytes # (Auto) 0.5 x10^3/uL (0.0-1.1) Eosinophils # (Auto) 0.2 x10^3/uL (0.0-0.7) Basophils # (Auto) 0.1 x10^3/uL (0.0-0.2) Sodium Level 137 mmol/L (136-145) Potassium Level 4.4 mmol/L (3.5-5.1) Chloride Level 101 mmol/L (98-107) Carbon Dioxide Level 28 mmol/L (21-32) Anion Gap 8 (6-14) Blood Urea Nitrogen 27 mg/dL (8-26) Creatinine 3.8 mg/dL (0.7-1.3) Estimated GFR (Cockcroft-Gault) 20.3 Glucose Level 129 mg/dL (70-99) Calcium Level 8.6 mg/dL (8.5-10.1) Phosphorus Level 2.9 mg/dL (2.6-4.7) Albumin 2.4 g/dL (3.4-5.0) Test 01/04/19 08:07 01/04/19 12:18 Glucose (Fingerstick) 194 mg/dL (70-99) 167 mg/dL (70-99) Laboratory Tests Test 01/03/19 17:11 01/03/19 20:41 01/04/19 04:00 01/04/19 08:07 Glucose (Fingerstick) 132 mg/dL (70-99) 163 mg/dL (70-99) 194 mg/dL (70-99) White Blood Count 4.1 x10^3/uL (4.0-11.0) Red Blood Count 3.91 x10^6/uL (4.30-5.70) Hemoglobin 11.3 g/dL (13.0-17.5) Hematocrit 34.4 % (39.0-53.0) Mean Corpuscular Volume 88 fL (79-100) Mean Corpuscular Hemoglobin 29 pg (25-35) Mean Corpuscular Hemoglobin Concent 33 g/dL (31-37) Red Cell Distribution Width 16.0 % (11.5-14.5) Platelet Count 141 x10^3/uL (140-400) Neutrophils (%) (Auto) 65 % (31-73) Lymphocytes (%) (Auto) 15 % (24-48) Monocytes (%) (Auto) 12 % (0-9) Eosinophils (%) (Auto) 5 % (0-3) Basophils (%) (Auto) 3 % (0-3) Neutrophils # (Auto) 2.7 x10^3uL (1.8-7.7) Lymphocytes # (Auto) 0.6 x10^3/uL (1.0-4.8) Monocytes # (Auto) 0.5 x10^3/uL (0.0-1.1) Eosinophils # (Auto) 0.2 x10^3/uL (0.0-0.7) Basophils # (Auto) 0.1 x10^3/uL (0.0-0.2) Sodium Level 137 mmol/L (136-145) Potassium Level 4.4 mmol/L (3.5-5.1) Chloride Level 101 mmol/L (98-107) Carbon Dioxide Level 28 mmol/L (21-32) Anion Gap 8 (6-14) Blood Urea Nitrogen 27 mg/dL (8-26) Creatinine 3.8 mg/dL (0.7-1.3) Estimated GFR (Cockcroft-Gault) 20.3 Glucose Level 129 mg/dL (70-99) Calcium Level 8.6 mg/dL (8.5-10.1) Phosphorus Level 2.9 mg/dL (2.6-4.7) Albumin 2.4 g/dL (3.4-5.0) Test 01/04/19 12:18 Glucose (Fingerstick) 167 mg/dL (70-99) Assessment Assessment Problems Medical Problems: (1) Elevated brain natriuretic peptide (BNP) level Status: Acute Plan Plan of Care Problems Medical Problems: (1) Elevated brain natriuretic peptide (BNP) level Status: Acute MYRON LIANG MD January 04, 2019 14:28
[2019-01-04] MEDS ORDERED: DIALYSIS PATIENT. MC PRN ×2 (14:45)
[2019-01-04] MEDS: PRAMIPEXOLE 0.25 MG TABLET. PO SCH (18:09)
[2019-01-04] MEDS: LINAGLIPTIN 5 MG TABLET PO SCH (18:09)
[2019-01-04] MEDS: ASPIRIN CHEWABLE 81 MG TABLET. PO SCH (18:09)
[2019-01-04] MEDS: MAGNESIUM OXIDE 400 MG TABLET PO SCH (18:09)
[2019-01-04] MEDS: ISOSORBIDE MONONITRATE ER 30 MG TAB.ER.24H PO SCH (18:09)
[2019-01-04] MEDS: LEVOTHYROXINE 175 MCG TABLET PO SCH (18:10)
[2019-01-04] MEDS: MEROPENEM 500 MG in IV NORMAL SALINE 50ML 50 ML IV SCH (18:13)
[2019-01-04] MEDS: diphenhydrAMINE HCL 25 MG CAPSULE PO PRN (19:34)
[2019-01-04 19:59] VITALS: BP 150/87
[2019-01-04] MEDS ORDERED: diphenhydrAMINE HCL 25 MG CAPSULE PO ONE (20:15)
[2019-01-04] MEDS: ATORVASTATIN CALCIUM 40 MG TABLET. PO SCH (20:22)
[2019-01-04] MEDS: FAMOTIDINE 20 MG TABLET. PO SCH (20:23)
[2019-01-04 23:37] VITALS: BP 97/55
[2019-01-05 03:50] VITALS: BP 129/88
[2019-01-05 04:48] LABS: BASO # 0.2 x10^3/uL (0.0-0.2); BASO % 2 % (0-3); EOS # 0.3 x10^3/uL (0.0-0.7); EOS % 5 % (0-3); HEMATOCRIT 25.7 % (39.0-53.0); HEMOGLOBIN 8.4 g/dL (13.0-17.5); LYMPH % 14 % (24-48); MEAN CORPUSCULAR HEMOGLOBIN 29 pg (25-35); MEAN CORPUSCULAR HGB CONC 33 g/dL (31-37); MEAN CORPUSCULAR VOLUME 88 fL (79-100); MONO # 0.8 x10^3/uL (0.0-1.1); MONO % 11 % (0-9); NEUT # 4.7 x10^3uL (1.8-7.7); NEUT % 67 % (31-73); PLATELET COUNT 170 x10^3/uL (140-400); RED BLOOD COUNT 2.92 x10^6/uL (4.30-5.70); RED CELL DISTRIBUTION WIDTH 15.8 % (11.5-14.5)
[2019-01-05 05:20] LABS: ALBUMIN 2.4 g/dL (3.4-5.0); CALCIUM 9.1 mg/dL (8.5-10.1); CREATININE 3.8 mg/dL (0.7-1.3); GFR 20.3; PHOSPHORUS 3.3 mg/dL (2.6-4.7); POTASSIUM 4.3 mmol/L (3.5-5.1)
[2019-01-05 07:54] VITALS: BP 147/66
[2019-01-05] MEDS: BUDESONIDE 0.5 MG/2 ML NEBU. NEB SCH (08:25)
[2019-01-05] MEDS: levETIRAcetam 500 MG TABLET PO SCH (09:08)
[2019-01-05] MEDS: PRAMIPEXOLE 0.25 MG TABLET. PO SCH (09:08)
[2019-01-05] MEDS: LEVOTHYROXINE 175 MCG TABLET PO SCH (09:08)
[2019-01-05] MEDS: ASPIRIN CHEWABLE 81 MG TABLET. PO SCH (09:09)
[2019-01-05] MEDS: LACTOBACILLUS RHAMNOSUS GG 1 CAPSULE. PO SCH (09:09)
[2019-01-05] MEDS: CALCIUM CARBONATE 500 MG TABLET PO SCH (09:09)
[2019-01-05] MEDS: MAGNESIUM OXIDE 400 MG TABLET PO SCH (09:09)
[2019-01-05] MEDS: LINAGLIPTIN 5 MG TABLET PO SCH (09:09)
[2019-01-05] MEDS: ISOSORBIDE MONONITRATE ER 30 MG TAB.ER.24H PO SCH (09:09)
[2019-01-05] MEDS: CARVEDILOL 3.125 MG TABLET. PO SCH (09:10)
[2019-01-05 10:28] VITALS: BP 145/69
--- NOTE | 2019-01-05 11:37 | PDOC ---
PROGRESS NOTES History of Present Illness History of Present Illness Images: Images Chest x-ray shows vascular congestion DISCHARGE DX Assessment/Plan Severe noncompliance with dialysis with secondary azotemia and renal failure falling overload chest pain severe anemia with a hemoglobin of 7 Bleeding right foot transmetatarsal amputation chronic wound ESRD Moderate coronary artery disease in the left anterior descending. Stent in the left circumflex vessel which had previous distal occlusion which now had some flowl. No new significant lesions were identified. Small nondominant right coronary artery with a 70% proximal lesion. Cardiomegaly with extensive coronary artery disease. morbid obesity Patient is a pleasant middle-aged male well-known to our service He is severely noncompliant with his dialysis and his wound appointments Interval amputations of the fourth and fifth digits as well as much of the metatarsal bones. Surrounding soft tissue gas may relate to recent surgical intervention. Correlate with history in determining further evaluation if osteomyelitis is a concern. wound vac disconnected last night Plan Admit Consult cardiology and nephrology Emergent dialysis Transfuse 2 units packed red blood cells Home meds Wound care Frequent labs Full code PT OT if possible Long-term prognosis extremely guarded if he doesn't start going to dialysis transfuse 1 unit PRBC'S 01/03 36 MIN PT EXAM, CHART REVIEW D/C PLANNING TIME , > 50% OF TIME SPENT with exam, chart review, pt care coordination Vitals Vitals Vital Signs Date Time Temp Pulse Resp B/P (MAP) Pulse Ox O2 Delivery O2 Flow Rate FiO2 01/05/19 10:28 98.9 96 20 145/69 (94) 100 Room Air 98.9 Physical Exam Physical Exam Physcial Exam: GEN.: very weak HEENT: His face is swollen NECK: Supple, positive JVD LUNGS: Bibasilar crackles HEART: RRR, S1, S2 present. Peripheral pulses intact ABDOMEN: Soft, nontender. Positive bowel sounds no organomegaly EXTREMITIES: Right BKA NEUROLOGIC: Normal speech, normal tone. A&O x 3 PSYCHIATRIC: Depressed SKIN: No ulcerations or rashes foot wound large // minimal granulation tissue VASCULAR: Good capillary refill except foot General: Alert, Oriented X3, Cooperative Heart: Regular rate Lungs: Clear Abdomen: Normal bowel sounds, Soft, No tenderness Labs LABS Laboratory Tests Test 01/04/19 12:18 01/04/19 17:16 01/04/19 20:33 01/05/19 03:40 Glucose (Fingerstick) 167 mg/dL (70-99) 120 mg/dL (70-99) 171 mg/dL (70-99) White Blood Count 7.0 x10^3/uL (4.0-11.0) Red Blood Count 2.92 x10^6/uL (4.30-5.70) Hemoglobin 8.4 g/dL (13.0-17.5) Hematocrit 25.7 % (39.0-53.0) Mean Corpuscular Volume 88 fL (79-100) Mean Corpuscular Hemoglobin 29 pg (25-35) Mean Corpuscular Hemoglobin Concent 33 g/dL (31-37) Red Cell Distribution Width 15.8 % (11.5-14.5) Platelet Count 170 x10^3/uL (140-400) Neutrophils (%) (Auto) 67 % (31-73) Lymphocytes (%) (Auto) 14 % (24-48) Monocytes (%) (Auto) 11 % (0-9) Eosinophils (%) (Auto) 5 % (0-3) Basophils (%) (Auto) 2 % (0-3) Neutrophils # (Auto) 4.7 x10^3uL (1.8-7.7) Lymphocytes # (Auto) 1.0 x10^3/uL (1.0-4.8) Monocytes # (Auto) 0.8 x10^3/uL (0.0-1.1) Eosinophils # (Auto) 0.3 x10^3/uL (0.0-0.7) Basophils # (Auto) 0.2 x10^3/uL (0.0-0.2) Sodium Level 138 mmol/L (136-145) Potassium Level 4.3 mmol/L (3.5-5.1) Chloride Level 101 mmol/L (98-107) Carbon Dioxide Level 30 mmol/L (21-32) Anion Gap 7 (6-14) Blood Urea Nitrogen 24 mg/dL (8-26) Creatinine 3.8 mg/dL (0.7-1.3) Estimated GFR (Cockcroft-Gault) 20.3 Glucose Level 104 mg/dL (70-99) Calcium Level 9.1 mg/dL (8.5-10.1) Phosphorus Level 3.3 mg/dL (2.6-4.7) Albumin 2.4 g/dL (3.4-5.0) Test 01/05/19 08:19 Glucose (Fingerstick) 110 mg/dL (70-99) Assessment and Plan Assessmemt and Plan Problems Medical Problems: (1) Elevated brain natriuretic peptide (BNP) level Status: Acute Comment Review of Relevant I have reviewed the following items lila (where applicable) has been applied. Labs Laboratory Tests Test 01/03/19 17:11 01/03/19 20:41 01/04/19 04:00 01/04/19 08:07 Glucose (Fingerstick) 132 mg/dL (70-99) 163 mg/dL (70-99) 194 mg/dL (70-99) White Blood Count 4.1 x10^3/uL (4.0-11.0) Red Blood Count 3.91 x10^6/uL (4.30-5.70) Hemoglobin 11.3 g/dL (13.0-17.5) Hematocrit 34.4 % (39.0-53.0) Mean Corpuscular Volume 88 fL (79-100) Mean Corpuscular Hemoglobin 29 pg (25-35) Mean Corpuscular Hemoglobin Concent 33 g/dL (31-37) Red Cell Distribution Width 16.0 % (11.5-14.5) Platelet Count 141 x10^3/uL (140-400) Neutrophils (%) (Auto) 65 % (31-73) Lymphocytes (%) (Auto) 15 % (24-48) Monocytes (%) (Auto) 12 % (0-9) Eosinophils (%) (Auto) 5 % (0-3) Basophils (%) (Auto) 3 % (0-3) Neutrophils # (Auto) 2.7 x10^3uL (1.8-7.7) Lymphocytes # (Auto) 0.6 x10^3/uL (1.0-4.8) Monocytes # (Auto) 0.5 x10^3/uL (0.0-1.1) Eosinophils # (Auto) 0.2 x10^3/uL (0.0-0.7) Basophils # (Auto) 0.1 x10^3/uL (0.0-0.2) Sodium Level 137 mmol/L (136-145) Potassium Level 4.4 mmol/L (3.5-5.1) Chloride Level 101 mmol/L (98-107) Carbon Dioxide Level 28 mmol/L (21-32) Anion Gap 8 (6-14) Blood Urea Nitrogen 27 mg/dL (8-26) Creatinine 3.8 mg/dL (0.7-1.3) Estimated GFR (Cockcroft-Gault) 20.3 Glucose Level 129 mg/dL (70-99) Calcium Level 8.6 mg/dL (8.5-10.1) Phosphorus Level 2.9 mg/dL (2.6-4.7) Albumin 2.4 g/dL (3.4-5.0) Test 01/04/19 12:18 01/04/19 17:16 01/04/19 20:33 01/05/19 03:40 Glucose (Fingerstick) 167 mg/dL (70-99) 120 mg/dL (70-99) 171 mg/dL (70-99) White Blood Count 7.0 x10^3/uL (4.0-11.0) Red Blood Count 2.92 x10^6/uL (4.30-5.70) Hemoglobin 8.4 g/dL (13.0-17.5) Hematocrit 25.7 % (39.0-53.0) Mean Corpuscular Volume 88 fL (79-100) Mean Corpuscular Hemoglobin 29 pg (25-35) Mean Corpuscular Hemoglobin Concent 33 g/dL (31-37) Red Cell Distribution Width 15.8 % (11.5-14.5) Platelet Count 170 x10^3/uL (140-400) Neutrophils (%) (Auto) 67 % (31-73) Lymphocytes (%) (Auto) 14 % (24-48) Monocytes (%) (Auto) 11 % (0-9) Eosinophils (%) (Auto) 5 % (0-3) Basophils (%) (Auto) 2 % (0-3) Neutrophils # (Auto) 4.7 x10^3uL (1.8-7.7) Lymphocytes # (Auto) 1.0 x10^3/uL (1.0-4.8) Monocytes # (Auto) 0.8 x10^3/uL (0.0-1.1) Eosinophils # (Auto) 0.3 x10^3/uL (0.0-0.7) Basophils # (Auto) 0.2 x10^3/uL (0.0-0.2) Sodium Level 138 mmol/L (136-145) Potassium Level 4.3 mmol/L (3.5-5.1) Chloride Level 101 mmol/L (98-107) Carbon Dioxide Level 30 mmol/L (21-32) Anion Gap 7 (6-14) Blood Urea Nitrogen 24 mg/dL (8-26) Creatinine 3.8 mg/dL (0.7-1.3) Estimated GFR (Cockcroft-Gault) 20.3 Glucose Level 104 mg/dL (70-99) Calcium Level 9.1 mg/dL (8.5-10.1) Phosphorus Level 3.3 mg/dL (2.6-4.7) Albumin 2.4 g/dL (3.4-5.0) Test 01/05/19 08:19 Glucose (Fingerstick) 110 mg/dL (70-99) Laboratory Tests Test 01/04/19 12:18 01/04/19 17:16 01/04/19 20:33 01/05/19 03:40 Glucose (Fingerstick) 167 mg/dL (70-99) 120 mg/dL (70-99) 171 mg/dL (70-99) White Blood Count 7.0 x10^3/uL (4.0-11.0) Red Blood Count 2.92 x10^6/uL (4.30-5.70) Hemoglobin 8.4 g/dL (13.0-17.5) Hematocrit 25.7 % (39.0-53.0) Mean Corpuscular Volume 88 fL (79-100) Mean Corpuscular Hemoglobin 29 pg (25-35) Mean Corpuscular Hemoglobin Concent 33 g/dL (31-37) Red Cell Distribution Width 15.8 % (11.5-14.5) Platelet Count 170 x10^3/uL (140-400) Neutrophils (%) (Auto) 67 % (31-73) Lymphocytes (%) (Auto) 14 % (24-48) Monocytes (%) (Auto) 11 % (0-9) Eosinophils (%) (Auto) 5 % (0-3) Basophils (%) (Auto) 2 % (0-3) Neutrophils # (Auto) 4.7 x10^3uL (1.8-7.7) Lymphocytes # (Auto) 1.0 x10^3/uL (1.0-4.8) Monocytes # (Auto) 0.8 x10^3/uL (0.0-1.1) Eosinophils # (Auto) 0.3 x10^3/uL (0.0-0.7) Basophils # (Auto) 0.2 x10^3/uL (0.0-0.2) Sodium Level 138 mmol/L (136-145) Potassium Level 4.3 mmol/L (3.5-5.1) Chloride Level 101 mmol/L (98-107) Carbon Dioxide Level 30 mmol/L (21-32) Anion Gap 7 (6-14) Blood Urea Nitrogen 24 mg/dL (8-26) Creatinine 3.8 mg/dL (0.7-1.3) Estimated GFR (Cockcroft-Gault) 20.3 Glucose Level 104 mg/dL (70-99) Calcium Level 9.1 mg/dL (8.5-10.1) Phosphorus Level 3.3 mg/dL (2.6-4.7) Albumin 2.4 g/dL (3.4-5.0) Test 01/05/19 08:19 Glucose (Fingerstick) 110 mg/dL (70-99) Microbiology 01/02/19 Blood Culture - Preliminary, Resulted NO GROWTH AFTER 3 DAYS Medications Current Medications Pharmacy Consult (C.diff Med Screen By Rx) 1 each 1X ONCE [facility] ; Start 01/02/19 at 14:30; Stop 01/02/19 at 14:31; Status DC Sodium Chloride 1,000 ml @ 1,000 mls/hr Q1H PRN IV hypotension; Start 01/02/19 at 15:01; Stop 01/02/19 at 21:00; Status DC Sodium Chloride 1,000 ml @ 400 mls/hr Q2H30M PRN IV PATENCY; Start 01/02/19 at 15:01; Stop 01/03/19 at 03:00; Status DC Info (PHARMACY MONITORING -- do not chart) 1 each PRN DAILY PRN [facility] SEE COMMENTS; Start 01/02/19 at 15:15; Status UNV Info (PHARMACY MONITORING -- do not chart) 1 each PRN DAILY PRN [facility] SEE COMMENTS; Start 01/02/19 at 15:15; Stop 01/03/19 at 08:10; Status DC Acetaminophen (Tylenol) 650 mg PRN Q6HRS PRN PO FEVER; Start 01/02/19 at 16:15 Aspirin (Children'S Aspirin) 81 mg DAILY PO Last administered on 01/05/19at 09:09; Start 01/03/19 at 09:00 Calcium Carbonate/ Glycine (Oscal) 500 mg BIDWMEALS PO Last administered on 01/05/19 09:09; Start 01/02/19 at 17:00 Calcium Carbonate/ Glycine (Tums) 500 mg PRN Q4HRS PRN PO INDIGESTION; Start 01/02/19 at 16:15 Carvedilol (Coreg) 3.125 mg BIDWMEALS PO Last administered on 01/05/19at 09:10; Start 01/02/19 at 17:00 Clopidogrel Bisulfate (Plavix) 75 mg DAILY PO ; Start 01/03/19 at 09:00; Stop 01/03/19 at 13:15; Status DC Famotidine (Pepcid) 20 mg HS PO Last administered on 01/04/19at 20:23; Start 01/02/19 at 21:00 Acetaminophen/ Hydrocodone Bitart (Lortab 5/325) 1 tab PRN Q6HRS PRN PO PAIN Last administered on 01/03/19at 21:00; Start 01/02/19 at 16:15 Isosorbide Mononitrate (Imdur) 30 mg DAILY PO Last administered on 01/05/19 09:09; Start 01/03/19 at 09:00 Levothyroxine Sodium (Synthroid) 175 mcg DAILYAC PO Last administered on 01/05/19at 09:08; Start 01/03/19 at 07:30 Linagliptin (Tradjenta) 5 mg DAILY PO Last administered on 01/05/19at 09:09; Start 01/03/19 at 09:00 Zolpidem Tartrate (Ambien) 5 mg PRN QHS PRN PO sleep; Start 01/02/19 at 16:15 Non-Formulary Medication (Albuterol Sulfate (Ventolin Hfa Inhaler)) 1 puff Q6HRS PRN INH SHORTNESS OF BREATH; Start 01/02/19 at 16:15; Status UNV Atorvastatin Calcium (Lipitor) 40 mg QHS PO Last administered on 01/04/19 20:22; Start 01/02/19 at 21:00 Diphenhydramine HCl (Benadryl) 50 mg PRN Q6HRS PRN PO ITCHING Last administered on 01/04/19 19:34; Start 01/02/19 at 16:45 Non-Formulary Medication (Fluticasone Propionate (Flovent 110MCG Hfa)) 2 puff BID IH ; Start 01/02/19 at 21:00; Status UNV Levetiracetam (Keppra) 1,000 mg BID PO Last administered on 01/05/19 09:08; Start 01/02/19 at 21:00 Magnesium Oxide (Magnesium Oxide) 200 mg DAILY PO Last administered on 01/05/19 09:09; Start 01/03/19 at 09:00 Non-Formulary Medication (Meropenem (Merrem)) 500 mg DAILY IV ; Start 01/03/19 at 09:00; Status UNV Pramipexole Dihydrochloride (miraPEX) 0.25 mg DAILY PO Last administered on 01/05/19 09:08; Start 01/03/19 at 09:00 Albuterol Sulfate (Ventolin Neb Soln) 2.5 mg PRN Q6HRS PRN NEB SHORTNESS OF BREATH Last administered on 01/04/19 08:51; Start 01/02/19 at 16:45 Budesonide (Pulmicort) 0.5 mg RTBID NEB Last administered on 01/05/19 08:25; Start 01/02/19 at 20:00 Meropenem 500 mg/ Sodium Chloride 50 ml @ 100 mls/hr Q24H IV Last administered on 01/04/19 18:13; Start 01/02/19 at 17:00; Stop 01/07/19 at 23:59 Lactobacillus Rhamnosus (Culturelle) 1 cap BID PO Last administered on 01/05/19 09:09; Start 01/03/19 at 09:00 Info (PHARMACY MONITORING -- do not chart) 1 each PRN DAILY PRN MC SEE COMMENTS; Start 01/03/19 at 08:15 Sodium Chloride 1,000 ml @ 1,000 mls/hr Q1H PRN IV hypotension; Start 01/03/19 at 08:09; Stop 01/03/19 at 14:08; Status DC Albumin Human 200 ml @ 200 mls/hr 1X PRN PRN IV Hypotension; Start 01/03/19 at 08:15; Stop 01/03/19 at 14:14; Status DC Acetaminophen (Tylenol) 500 mg 1X PRN PRN PO MILD PAIN / TEMP; Start 01/03/19 at 08:15; Stop 01/04/19 at 08:14; Status DC Diphenhydramine HCl (Benadryl) 25 mg 1X PRN PRN IV ITCHING; Start 01/03/19 at 08:15; Stop 01/04/19 at 08:14; Status DC Diphenhydramine HCl (Benadryl) 25 mg 1X PRN PRN IV ITCHING; Start 01/03/19 at 08:15; Stop 01/04/19 at 08:14; Status DC Sodium Chloride 1,000 ml @ 400 mls/hr Q2H30M PRN IV PATENCY; Start 01/03/19 at 08:09; Stop 01/03/19 at 20:08; Status DC Sodium Chloride 1,000 ml @ 1,000 mls/hr Q1H PRN IV hypotension; Start 01/04/19 at 12:00; Stop 01/04/19 at 17:59; Status DC Sodium Chloride 1,000 ml @ 400 mls/hr Q2H30M PRN IV PATENCY; Start 01/04/19 at 12:00; Stop 01/04/19 at 23:59; Status DC Info (PHARMACY MONITORING -- do not chart) 1 each PRN DAILY PRN MC SEE COMMENTS; Start 01/04/19 at 14:45; Status UNV Info (PHARMACY MONITORING -- do not chart) 1 each PRN DAILY PRN MC SEE COMMENTS; Start 01/04/19 at 14:45 Diphenhydramine HCl (Benadryl) 50 mg 1X ONCE PO Last administered on 01/04/19at 20:22; Start 01/04/19 at 20:15; Stop 01/04/19 at 20:16; Status DC Active Scripts Active Isosorbide Mononitrate Er (Isosorbide Mononitrate) 30 Mg Tab.er.24h 30 Mg PO DAILY 30 Days Coreg (Carvedilol) 3.125 Mg Tablet 3.125 Mg PO BIDWMEALS Lipitor (Atorvastatin Calcium) 80 Mg Tablet 40 Mg PO HS Flovent 110MCG Hfa (Fluticasone Propionate) 12 Gm Aer.w.adap 2 Puff IH BID Zolpidem Tartrate 5 Mg Tablet 1 Tab PO QHS PRN Mirapex (Pramipexole Di-Hcl) 0.25 Mg Tablet 1 Tab PO DAILY Famotidine 20 Mg Tablet 20 Mg PO HS Ventolin Hfa Inhaler (Albuterol Sulfate) 18 Gm Hfa.aer.ad 1 Puff INH Q6HRS PRN Levothyroxine Sodium 175 Mcg Tablet 175 Mcg PO DAILYAC Merrem (Meropenem) 500 Mg Vial 500 Mg IV DAILY Reported Magnesium (Magnesium Oxide) 400 Mg Capsule 250 Mg PO DAILY Tums (Calcium Carbonate) 200 Mg Tab.chew 200 Mg PO PRN Q4HRS PRN Hydrocodone-Acetamin 5-325 mg (Hydrocodone/Acetaminophen) 1 Each Tablet 1 Each PO PRN Q6HRS PRN Aspirin 81 Mg Tab.chew 1 Tab PO DAILY Tradjenta (Linagliptin) 5 Mg Tablet 5 Mg PO DAILY Diphenhydramine Hcl 50 Mg Capsule 1 Cap PO PRN Calcium Carbonate 500 Mg Tablet 500 Mg PO BID Keppra (Levetiracetam) 1,000 Mg Tablet 1 Tab PO BID Tylenol (Acetaminophen) 325 Mg Tablet 650 Mg PO PRN Q6HRS PRN Vitals/I & O Vital Sign - Last 24 Hours 01/04/19 01/04/19 01/04/19 01/04/19 18:09 18:10 19:49 19:59 Temp 98.3 98.3 Pulse 87 87 100 Resp 19 B/P (MAP) 156/43 150/56 150/87 (108) Pulse Ox 100 O2 Delivery Room Air Room Air 01/04/19 01/05/19 01/05/19 01/05/19 23:37 03:50 07:54 08:26 Temp 98.8 99.1 99.4 98.8 99.1 99.4 Pulse 89 87 91 Resp 18 18 19 B/P (MAP) 97/55 (69) 129/88 (102) 147/66 (93) Pulse Ox 98 98 97 96 O2 Delivery Room Air Room Air Room Air Room Air 01/05/19 01/05/19 01/05/19 09:09 09:10 10:28 Temp 98.9 98.9 Pulse 90 91 96 Resp 20 B/P (MAP) 147/66 145/69 (94) Pulse Ox 100 O2 Delivery Room Air Intake and Output 01/04/19 01/04/19 01/05/19 15:00 23:00 07:00 Intake Total 600 ml 1140 ml 240 ml Output Total 0 ml Balance 600 ml 1140 ml 240 ml NICHOLE THORNTON MD January 05, 2019 11:37
--- NOTE | 2019-01-05 13:06 | PDOC ---
SUBJECTIVE ROS ESRD on hemodialysis Patient well. Denies any specific complaints at this time. He is ready to go home. CVS: no Orthopnea, no CP RESP: no SOB, no MCCLAIN GI: no Nausea, no Vomiting : no Dysuria, no Urgency OBJECTIVE Vital Signs Vital Signs Date Time Temp Pulse Resp B/P (MAP) Pulse Ox O2 Delivery O2 Flow Rate FiO2 01/05/19 10:28 98.9 96 20 145/69 (94) 100 Room Air 98.9 I & 0 Intake and Output 01/05/19 06:59 Intake Total 1980 ml Output Total 0 ml Balance 1980 ml Intake Oral 1980 ml Output Urine Total 0 ml PHYSICAL EXAM Physical Exam GEN: Awake, Oriented x 3, In no distress, morbidly obese gentleman EYES: Vision Unchanged, Conjunctiva Normal EN: No EN Drainage, Mucous Membranes moist NECK: no JVD, min JVP, Supple, no Thyromegaly, short thick neck CVS: S1S2, positive systolic Murmur, No Gallop, No Rub, tr Edema RESP: no Rales, no Rhonchi,no Acc. Muscle Use GI: BS + ve, NO Bruit, Non Tender, Non Distended, morbidly obese abdomen : no CVA tenderness, no Suprapubic Tenderness DIAGNOSIS/ASSESSMENT Assessment & Plan ESRD: Current fluid and E-lyte status does not necessitate emergent need for dialysis. Will re-evaluate for dialysis in the am and continue on Sunday schedule. ANEMIA in the setting of ESRD: Worse today; increase Aranap as ordered, Transfuse with next HD as needed HTN: Current BP meds as reviewed. See orders for changes. BONE & MINERAL: Follow phosphorus levels and alter binder regimen as needed. Suspicion for fluid overload: Chest x-ray appears normal. It's highly likely that patient may have gained some body weight Discussed Plan of Care with patient at bedside COMMENT/RELEVANT DATA Meds Current Medications Medications (Trade) Dose Ordered Sig/[place] Start Time Stop Time Status Last Admin Dose Admin Acetaminophen (Tylenol) 500 mg 1X PRN PRN 01/03/19 08:15 01/04/19 08:14 DC Acetaminophen/ Hydrocodone Bitart (Lortab 5/325) 1 tab PRN Q6HRS PRN 01/02/19 16:15 01/03/19 21:00 1 TAB Albumin Human 200 ml @ 200 mls/hr 1X PRN PRN 01/03/19 08:15 01/03/19 14:14 DC Albuterol Sulfate (Ventolin Neb Soln) 2.5 mg PRN Q6HRS PRN 01/02/19 16:45 01/04/19 08:51 2.5 MG Aspirin (Children'S Aspirin) 81 mg DAILY 01/03/19 09:00 01/05/19 09:09 81 MG Atorvastatin Calcium (Lipitor) 40 mg QHS 01/02/19 21:00 01/04/19 20:22 40 MG Budesonide (Pulmicort) 0.5 mg RTBID 01/02/19 20:00 01/05/19 08:25 0.5 MG Calcium Carbonate/ Glycine (Oscal) 500 mg BIDWMEALS 01/02/19 17:00 01/05/19 09:09 500 MG Calcium Carbonate/ Glycine (Tums) 500 mg PRN Q4HRS PRN 01/02/19 16:15 Carvedilol (Coreg) 3.125 mg BIDWMEALS 01/02/19 17:00 01/05/19 09:10 3.125 MG Clopidogrel Bisulfate (Plavix) 75 mg DAILY 01/03/19 09:00 01/03/19 13:15 DC Diphenhydramine HCl (Benadryl) 50 mg 1X ONCE 01/04/19 20:15 01/04/19 20:16 DC 01/04/19 20:22 50 MG Famotidine (Pepcid) 20 mg HS 01/02/19 21:00 01/04/19 20:23 20 MG Info (PHARMACY MONITORING -- do not chart) 1 each PRN DAILY PRN 01/04/19 14:45 Isosorbide Mononitrate (Imdur) 30 mg DAILY 01/03/19 09:00 01/05/19 09:09 30 MG Lactobacillus Rhamnosus (Culturelle) 1 cap BID 01/03/19 09:00 01/05/19 09:09 1 CAP Levetiracetam (Keppra) 1,000 mg BID 01/02/19 21:00 01/05/19 09:08 1,000 MG Levothyroxine Sodium (Synthroid) 175 mcg DAILYAC 01/03/19 07:30 01/05/19 09:08 175 MCG Linagliptin (Tradjenta) 5 mg DAILY 01/03/19 09:00 01/05/19 09:09 5 MG Magnesium Oxide (Magnesium Oxide) 200 mg DAILY 01/03/19 09:00 01/05/19 09:09 200 MG Meropenem 500 mg/ Sodium Chloride 50 ml @ 100 mls/hr Q24H 01/02/19 17:00 01/07/19 23:59 01/04/19 18:13 100 MLS/HR Non-Formulary Medication (Albuterol Sulfate (Ventolin Hfa Inhaler)) 1 puff Q6HRS PRN 01/02/19 16:15 UNV Non-Formulary Medication (Fluticasone Propionate (Flovent 110MCG Hfa)) 2 puff BID 01/02/19 21:00 UNV Non-Formulary Medication (Meropenem (Merrem)) 500 mg DAILY 01/03/19 09:00 UNV Pharmacy Consult (C.diff Med Screen By Rx) 1 each 1X ONCE 01/02/19 14:30 01/02/19 14:31 DC Pramipexole Dihydrochloride (miraPEX) 0.25 mg DAILY 01/03/19 09:00 01/05/19 09:08 0.25 MG Sodium Chloride 1,000 ml @ 400 mls/hr Q2H30M PRN 01/04/19 12:00 01/04/19 23:59 DC Zolpidem Tartrate (Ambien) 5 mg PRN QHS PRN 01/02/19 16:15 Lab Laboratory Tests Test 01/04/19 17:16 01/04/19 20:33 01/05/19 03:40 01/05/19 08:19 Glucose (Fingerstick) 120 mg/dL (70-99) 171 mg/dL (70-99) 110 mg/dL (70-99) White Blood Count 7.0 x10^3/uL (4.0-11.0) Red Blood Count 2.92 x10^6/uL (4.30-5.70) Hemoglobin 8.4 g/dL (13.0-17.5) Hematocrit 25.7 % (39.0-53.0) Mean Corpuscular Volume 88 fL (79-100) Mean Corpuscular Hemoglobin 29 pg (25-35) Mean Corpuscular Hemoglobin Concent 33 g/dL (31-37) Red Cell Distribution Width 15.8 % (11.5-14.5) Platelet Count 170 x10^3/uL (140-400) Neutrophils (%) (Auto) 67 % (31-73) Lymphocytes (%) (Auto) 14 % (24-48) Monocytes (%) (Auto) 11 % (0-9) Eosinophils (%) (Auto) 5 % (0-3) Basophils (%) (Auto) 2 % (0-3) Neutrophils # (Auto) 4.7 x10^3uL (1.8-7.7) Lymphocytes # (Auto) 1.0 x10^3/uL (1.0-4.8) Monocytes # (Auto) 0.8 x10^3/uL (0.0-1.1) Eosinophils # (Auto) 0.3 x10^3/uL (0.0-0.7) Basophils # (Auto) 0.2 x10^3/uL (0.0-0.2) Sodium Level 138 mmol/L (136-145) Potassium Level 4.3 mmol/L (3.5-5.1) Chloride Level 101 mmol/L (98-107) Carbon Dioxide Level 30 mmol/L (21-32) Anion Gap 7 (6-14) Blood Urea Nitrogen 24 mg/dL (8-26) Creatinine 3.8 mg/dL (0.7-1.3) Estimated GFR (Cockcroft-Gault) 20.3 Glucose Level 104 mg/dL (70-99) Calcium Level 9.1 mg/dL (8.5-10.1) Phosphorus Level 3.3 mg/dL (2.6-4.7) Albumin 2.4 g/dL (3.4-5.0) Test 01/05/19 11:56 Glucose (Fingerstick) 156 mg/dL (70-99) Results All relevant outside records, renal labs, imaging studies, telemetry/EKG's were reviewed. MYRON LIANG MD January 05, 2019 13:06
[2019-01-05 14:31] VITALS: BP 140/65
--- NOTE | 2019-01-05 15:25 | PDOC3 ---
Discharge Summary Date of Admission: January 02, 2019 Date of Discharge: January 05, 2019 Follow-Up: 1-2 days Admitting Diagnosis comment: DISCHARGE DX Assessment/Plan Severe noncompliance with dialysis with secondary azotemia and renal failure f alling overload chest pain severe anemia with a hemoglobin of 7 Bleeding right foot transmetatarsal amputation chronic wound ESRD Moderate coronary artery disease in the left anterior descending. Stent in the left circumflex vessel which had previous distal occlusion which now had some flowl. No new significant lesions were identified. Small nondominant right coronary artery with a 70% proximal lesion. Cardiomegaly with extensive coronary artery disease. morbid obesity Patient is a pleasant middle-aged male well-known to our service He is severely noncompliant with his dialysis and his wound appointments Interval amputations of the fourth and fifth digits as well as much of the metatarsal bones. Surrounding soft tissue gas may relate to recent surgical intervention. Correlate with history in determining further evaluation if osteomyelitis is a concern. wound vac disconnected last night Plan Admit Consult cardiology and nephrology Emergent dialysis Transfuse 2 units packed red blood cells Home meds Wound care Frequent labs Full code PT OT if possible Long-term prognosis extremely guarded if he doesn't start going to dialysis transfuse 1 unit PRBC'S 01/03 36 MIN PT EXAM, CHART REVIEW D/C PLANNING TIME , > 50% OF TIME SPENT with exam, chart review, pt care coordination Vitals Vitals Vital Signs Date Time Temp Pulse Resp B/P (MAP) Pulse Ox O2 Delivery O2 Flow Rate FiO2 01/05/19 10:28 98.9 96 20 145/69 (94) 100 Room Air 98.9 Physical Exam Physical Exam Physcial Exam: GEN.: LESS weak HEENT: His face is NOT swollen NECK: Supple, positive JVD LUNGS: Bibasilar crackles HEART: RRR, S1, S2 present. Peripheral pulses intact ABDOMEN: Soft, nontender. Positive bowel sounds no organomegaly EXTREMITIES: Right BKA NEUROLOGIC: Normal speech, normal tone. A&O x 3 PSYCHIATRIC: Depressed SKIN: No ulcerations or rashes foot wound large // minimal granulation tissue VASCULAR: Good capillary refill except foot General: Alert, Oriented X3, Cooperative Heart: Regular rate Lungs: Clear Abdomen: Normal bowel sounds, Soft, No tenderness FINAL DIAGNOSIS Problems Medical Problems: (1) Elevated brain natriuretic peptide (BNP) level Status: Acute Brief Hospital Course Mr. Goel is a 53 old [sex] who presented with [ SEVERE ANEMIA/ MISSED DIALYSIS] CONDITION AT DISCHARGE: Improved Discharge Medications Current Medications Pharmacy Consult (C.diff Med Screen By Rx) 1 each 1X ONCE MC ; Start 01/02/19 at 14:30; Stop 01/02/19 at 14:31; Status DC Sodium Chloride 1,000 ml @ 1,000 mls/hr Q1H PRN IV hypotension; Start 01/02/19 at 15:01; Stop 01/02/19 at 21:00; Status DC Sodium Chloride 1,000 ml @ 400 mls/hr Q2H30M PRN IV PATENCY; Start 01/02/19 at 15:01; Stop 01/03/19 at 03:00; Status DC Info (PHARMACY MONITORING -- do not chart) 1 each PRN DAILY PRN MC SEE COMMENTS; Start 01/02/19 at 15:15; Status UNV Info (PHARMACY MONITORING -- do not chart) 1 each PRN DAILY PRN MC SEE COMM ENTS; Start 01/02/19 at 15:15; Stop 01/03/19 at 08:10; Status DC Acetaminophen (Tylenol) 650 mg PRN Q6HRS PRN PO FEVER; Start 01/02/19 at 16:15 Aspirin (Children'S Aspirin) 81 mg DAILY PO Last administered on 01/05/19at 09:09; Start 01/03/19 at 09:00 Calcium Carbonate/ Glycine (Oscal) 500 mg BIDWMEALS PO Last administered on 01/05/19at 09:09; Start 01/02/19 at 17:00 Calcium Carbonate/ Glycine (Tums) 500 mg PRN Q4HRS PRN PO INDIGESTION; Start 01/02/19 at 16:15 Carvedilol (Coreg) 3.125 mg BIDWMEALS PO Last administered on 01/05/19at 09:10; Start 01/02/19 at 17:00 Clopidogrel Bisulfate (Plavix) 75 mg DAILY PO ; Start 01/03/19 at 09:00; Stop 01/03/19 at 13:15; Status DC Famotidine (Pepcid) 20 mg HS PO Last administered on 01/04/19at 20:23; Start 01/02/19 at 21:00 Acetaminophen/ Hydrocodone Bitart (Lortab 5/325) 1 tab PRN Q6HRS PRN PO PAIN Last administered on 01/03/19 21:00; Start 01/02/19 at 16:15 Isosorbide Mononitrate (Imdur) 30 mg DAILY PO Last administered on 01/05/19 09:09; Start 01/03/19 at 09:00 Levothyroxine Sodium (Synthroid) 175 mcg DAILYAC PO Last administered on 01/05/19 09:08; Start 01/03/19 at 07:30 Linagliptin (Tradjenta) 5 mg DAILY PO Last administered on 01/05/19 09:09; Start 01/03/19 at 09:00 Zolpidem Tartrate (Ambien) 5 mg PRN QHS PRN PO sleep; Start 01/02/19 at 16:15 Non-Formulary Medication (Albuterol Sulfate (Ventolin Hfa Inhaler)) 1 puff Q6HRS PRN INH SHORTNESS OF BREATH; Start 01/02/19 at 16:15; Status UNV Atorvastatin Calcium (Lipitor) 40 mg QHS PO Last administered on 01/04/19 20:22; Start 01/02/19 at 21:00 Diphenhydramine HCl (Benadryl) 50 mg PRN Q6HRS PRN PO ITCHING Last administered on 01/04/19 19:34; Start 01/02/19 at 16:45 Non-Formulary Medication (Fluticasone Propionate (Flovent 110MCG Hfa)) 2 puff BID IH ; Start 01/02/19 at 21:00; Status UNV Levetiracetam (Keppra) 1,000 mg BID PO Last administered on 01/05/19 09:08; Start 01/02/19 at 21:00 Magnesium Oxide (Magnesium Oxide) 200 mg DAILY PO Last administered on 01/05/19 09:09; Start 01/03/19 at 09:00 Non-Formulary Medication (Meropenem (Merrem)) 500 mg DAILY IV ; Start 01/03/19 at 09:00; Status UNV Pramipexole Dihydrochloride (miraPEX) 0.25 mg DAILY PO Last administered on 5/26/19at 09:08; Start 01/03/19 at 09:00 Albuterol Sulfate (Ventolin Neb Soln) 2.5 mg PRN Q6HRS PRN NEB SHORTNESS OF BREATH Last administered on 01/04/19at 08:51; Start 01/02/19 at 16:45 Budesonide (Pulmicort) 0.5 mg RTBID NEB Last administered on 01/05/19at 08:25; Start 01/02/19 at 20:00 Meropenem 500 mg/ Sodium Chloride 50 ml @ 100 mls/hr Q24H IV Last administered on 01/04/19at 18:13; Start 01/02/19 at 17:00; Stop 01/07/19 at 23:59 Lactobacillus Rhamnosus (Culturelle) 1 cap BID PO Last administered on 01/05/19at 09:09; Start 01/03/19 at 09:00 Info (PHARMACY MONITORING -- do not chart) 1 each PRN DAILY PRN MC SEE COMMENTS; Start 01/03/19 at 08:15 Sodium Chloride 1,000 ml @ 1,000 mls/hr Q1H PRN IV hypotension; Start 01/03/19 at 08:09; Stop 01/03/19 at 14:08; Status DC Albumin Human 200 ml @ 200 mls/hr 1X PRN PRN IV Hypotension; Start 01/03/19 at 08:15; Stop 01/03/19 at 14:14; Status DC Acetaminophen (Tylenol) 500 mg 1X PRN PRN PO MILD PAIN / TEMP; Start 01/03/19 at 08:15; Stop 01/04/19 at 08:14; Status DC Diphenhydramine HCl (Benadryl) 25 mg 1X PRN PRN IV ITCHING; Start 01/03/19 at 08:15; Stop 01/04/19 at 08:14; Status DC Diphenhydramine HCl (Benadryl) 25 mg 1X PRN PRN IV ITCHING; Start 01/03/19 at 08:15; Stop 01/04/19 at 08:14; Status DC Sodium Chloride 1,000 ml @ 400 mls/hr Q2H30M PRN IV PATENCY; Start 01/03/19 at 08:09; Stop 01/03/19 at 20:08; Status DC Sodium Chloride 1,000 ml @ 1,000 mls/hr Q1H PRN IV hypotension; Start 01/04/19 at 12:00; Stop 01/04/19 at 17:59; Status DC Sodium Chloride 1,000 ml @ 400 mls/hr Q2H30M PRN IV PATENCY; Start 01/04/19 at 12:00; Stop 01/04/19 at 23:59; Status DC Info (PHARMACY MONITORING -- do not chart) 1 each PRN DAILY PRN MC SEE COMMENTS; Start 01/04/19 at 14:45; Status UNV Info (PHARMACY MONITORING -- do not chart) 1 each PRN DAILY PRN MC SEE COMMENTS; Start 01/04/19 at 14:45 Diphenhydramine HCl (Benadryl) 50 mg 1X ONCE PO Last administered on 01/04/19at 20:22; Start 01/04/19 at 20:15; Stop 01/04/19 at 20:16; Status DC Darbepoetin Jace (Aranesp) 150 mcg WEEKLYHS SQ ; Start 01/05/19 at 21:00; Stop 01/05/19 at 21:00; Status DC Darbepoetin Jace (Aranesp) 100 mcg WEEKLYHS SQ ; Start 01/05/19 at 21:00 Darbepoetin Jace (Aranesp) 60 mcg WEEKLYHS SQ ; Start 01/05/19 at 21:00 Active Scripts Active Isosorbide Mononitrate Er (Isosorbide Mononitrate) 30 Mg Tab.er.24h 30 Mg PO DAILY 30 Days Coreg (Carvedilol) 3.125 Mg Tablet 3.125 Mg PO BIDWMEALS Lipitor (Atorvastatin Calcium) 80 Mg Tablet 40 Mg PO HS Flovent 110MCG Hfa (Fluticasone Propionate) 12 Gm Aer.w.adap 2 Puff IH BID Zolpidem Tartrate 5 Mg Tablet 1 Tab PO QHS PRN Mirapex (Pramipexole Di-Hcl) 0.25 Mg Tablet 1 Tab PO DAILY Famotidine 20 Mg Tablet 20 Mg PO HS Ventolin Hfa Inhaler (Albuterol Sulfate) 18 Gm Hfa.aer.ad 1 Puff INH Q6HRS PRN Levothyroxine Sodium 175 Mcg Tablet 175 Mcg PO DAILYAC Merrem (Meropenem) 500 Mg Vial 500 Mg IV DAILY Reported Magnesium (Magnesium Oxide) 400 Mg Capsule 250 Mg PO DAILY Tums (Calcium Carbonate) 200 Mg Tab.chew 200 Mg PO PRN Q4HRS PRN Hydrocodone-Acetamin 5-325 mg (Hydrocodone/Acetaminophen) 1 Each Tablet 1 Each PO PRN Q6HRS PRN Aspirin 81 Mg Tab.chew 1 Tab PO DAILY Tradjenta (Linagliptin) 5 Mg Tablet 5 Mg PO DAILY Diphenhydramine Hcl 50 Mg Capsule 1 Cap PO PRN Calcium Carbonate 500 Mg Tablet 500 Mg PO BID Keppra (Levetiracetam) 1,000 Mg Tablet 1 Tab PO BID Tylenol (Acetaminophen) 325 Mg Tablet 650 Mg PO PRN Q6HRS PRN Vital Signs Vital Signs Date Time Temp Pulse Resp B/P (MAP) Pulse Ox O2 Delivery O2 Flow Rate FiO2 01/05/19 14:31 98.7 92 20 140/65 (90) 98 Room Air 98.7 Labs Laboratory Tests Test 01/03/19 17:11 01/03/19 20:41 01/04/19 04:00 01/04/19 08:07 Glucose (Fingerstick) 132 mg/dL (70-99) 163 mg/dL (70-99) 194 mg/dL (70-99) White Blood Count 4.1 x10^3/uL (4.0-11.0) Red Blood Count 3.91 x10^6/uL (4.30-5.70) Hemoglobin 11.3 g/dL (13.0-17.5) Hematocrit 34.4 % (39.0-53.0) Mean Corpuscular Volume 88 fL (79-100) Mean Corpuscular Hemoglobin 29 pg (25-35) Mean Corpuscular Hemoglobin Concent 33 g/dL (31-37) Red Cell Distribution Width 16.0 % (11.5-14.5) Platelet Count 141 x10^3/uL (140-400) Neutrophils (%) (Auto) 65 % (31-73) Lymphocytes (%) (Auto) 15 % (24-48) Monocytes (%) (Auto) 12 % (0-9) Eosinophils (%) (Auto) 5 % (0-3) Basophils (%) (Auto) 3 % (0-3) Neutrophils # (Auto) 2.7 x10^3uL (1.8-7.7) Lymphocytes # (Auto) 0.6 x10^3/uL (1.0-4.8) Monocytes # (Auto) 0.5 x10^3/uL (0.0-1.1) Eosinophils # (Auto) 0.2 x10^3/uL (0.0-0.7) Basophils # (Auto) 0.1 x10^3/uL (0.0-0.2) Sodium Level 137 mmol/L (136-145) Potassium Level 4.4 mmol/L (3.5-5.1) Chloride Level 101 mmol/L (98-107) Carbon Dioxide Level 28 mmol/L (21-32) Anion Gap 8 (6-14) Blood Urea Nitrogen 27 mg/dL (8-26) Creatinine 3.8 mg/dL (0.7-1.3) Estimated GFR (Cockcroft-Gault) 20.3 Glucose Level 129 mg/dL (70-99) Calcium Level 8.6 mg/dL (8.5-10.1) Phosphorus Level 2.9 mg/dL (2.6-4.7) Albumin 2.4 g/dL (3.4-5.0) Test 01/04/19 12:18 01/04/19 17:16 01/04/19 20:33 01/05/19 03:40 Glucose (Fingerstick) 167 mg/dL (70-99) 120 mg/dL (70-99) 171 mg/dL (70-99) White Blood Count 7.0 x10^3/uL (4.0-11.0) Red Blood Count 2.92 x10^6/uL (4.30-5.70) Hemoglobin 8.4 g/dL (13.0-17.5) Hematocrit 25.7 % (39.0-53.0) Mean Corpuscular Volume 88 fL (79-100) Mean Corpuscular Hemoglobin 29 pg (25-35) Mean Corpuscular Hemoglobin Concent 33 g/dL (31-37) Red Cell Distribution Width 15.8 % (11.5-14.5) Platelet Count 170 x10^3/uL (140-400) Neutrophils (%) (Auto) 67 % (31-73) Lymphocytes (%) (Auto) 14 % (24-48) Monocytes (%) (Auto) 11 % (0-9) Eosinophils (%) (Auto) 5 % (0-3) Basophils (%) (Auto) 2 % (0-3) Neutrophils # (Auto) 4.7 x10^3uL (1.8-7.7) Lymphocytes # (Auto) 1.0 x10^3/uL (1.0-4.8) Monocytes # (Auto) 0.8 x10^3/uL (0.0-1.1) Eosinophils # (Auto) 0.3 x10^3/uL (0.0-0.7) Basophils # (Auto) 0.2 x10^3/uL (0.0-0.2) Sodium Level 138 mmol/L (136-145) Potassium Level 4.3 mmol/L (3.5-5.1) Chloride Level 101 mmol/L (98-107) Carbon Dioxide Level 30 mmol/L (21-32) Anion Gap 7 (6-14) Blood Urea Nitrogen 24 mg/dL (8-26) Creatinine 3.8 mg/dL (0.7-1.3) Estimated GFR (Cockcroft-Gault) 20.3 Glucose Level 104 mg/dL (70-99) Calcium Level 9.1 mg/dL (8.5-10.1) Phosphorus Level 3.3 mg/dL (2.6-4.7) Albumin 2.4 g/dL (3.4-5.0) Test 01/05/19 08:19 01/05/19 11:56 Glucose (Fingerstick) 110 mg/dL (70-99) 156 mg/dL (70-99) Laboratory Tests Test 01/04/19 17:16 01/04/19 20:33 01/05/19 03:40 01/05/19 08:19 Glucose (Fingerstick) 120 mg/dL (70-99) 171 mg/dL (70-99) 110 mg/dL (70-99) White Blood Count 7.0 x10^3/uL (4.0-11.0) Red Blood Count 2.92 x10^6/uL (4.30-5.70) Hemoglobin 8.4 g/dL (13.0-17.5) Hematocrit 25.7 % (39.0-53.0) Mean Corpuscular Volume 88 fL (79-100) Mean Corpuscular Hemoglobin 29 pg (25-35) Mean Corpuscular Hemoglobin Concent 33 g/dL (31-37) Red Cell Distribution Width 15.8 % (11.5-14.5) Platelet Count 170 x10^3/uL (140-400) Neutrophils (%) (Auto) 67 % (31-73) Lymphocytes (%) (Auto) 14 % (24-48) Monocytes (%) (Auto) 11 % (0-9) Eosinophils (%) (Auto) 5 % (0-3) Basophils (%) (Auto) 2 % (0-3) Neutrophils # (Auto) 4.7 x10^3uL (1.8-7.7) Lymphocytes # (Auto) 1.0 x10^3/uL (1.0-4.8) Monocytes # (Auto) 0.8 x10^3/uL (0.0-1.1) Eosinophils # (Auto) 0.3 x10^3/uL (0.0-0.7) Basophils # (Auto) 0.2 x10^3/uL (0.0-0.2) Sodium Level 138 mmol/L (136-145) Potassium Level 4.3 mmol/L (3.5-5.1) Chloride Level 101 mmol/L (98-107) Carbon Dioxide Level 30 mmol/L (21-32) Anion Gap 7 (6-14) Blood Urea Nitrogen 24 mg/dL (8-26) Creatinine 3.8 mg/dL (0.7-1.3) Estimated GFR (Cockcroft-Gault) 20.3 Glucose Level 104 mg/dL (70-99) Calcium Level 9.1 mg/dL (8.5-10.1) Phosphorus Level 3.3 mg/dL (2.6-4.7) Albumin 2.4 g/dL (3.4-5.0) Test 01/05/19 11:56 Glucose (Fingerstick) 156 mg/dL (70-99) Allergies Allergies Coded Allergies Type Severity Reaction Last Updated Verified iodine Allergy Severe THROAT SWELLING 09/24/18 Yes lisinopril Allergy Severe 09/24/18 Yes Fish Containing Products Allergy Intermediate 09/24/18 Yes Penicillins Allergy Intermediate SEE COMMENT 09/24/18 Yes piperacillin Allergy Intermediate Hives 09/24/18 Yes tazobactam Allergy Intermediate 09/24/18 Yes Disposition/Orders: D/C to Home Patient Instructions D/C PLANNING 36 MIN NICHOLE THORNTON MD January 05, 2019 15:25
[2019-01-05] MEDS ORDERED: LACT1CAP19 PO (15:27)
--- NOTE | 2019-01-05 15:28 | DISCH ---
DISCHARGE INSTRUCTIONS Condition on Discharge Condition on Discharge: Guarded Activity After Discharge Activity Instructions for Disc: Activity as tolerated Bathing Instructions: Shower-keep dressing dry Lifting Instructions after Dis: No heavy lifting Exercise Instruction after Dis: Progress as tolerated Driving Instructions after Dis: Do not drive, Other, see below Weight Bearing Status after Di: As tolerated Diet after Discharge Diet after Discharge: Cardiac, Renal Dialysis, No Added Salt, No Added Sugar, Diabetic No Calorie Level Diet Texture: Regular Liquid Texture: Thin Liquid Swallowing Supervision: None needed Wound Incision Care Wound/Incision Care: Change dressing Wound Care Equipment: Wound vac Checks after Discharge Checks after discharge: Check blood press - daily, Check blood sugar, ac/hs, Check your Temp as needed, Weigh Yourself Daily Contacting the DR. after DC Call your doctor for: Concerns you may have Treatment/Equipment after DC Adaptive Equipment Issued: None NICHOLE THORNTON MD January 05, 2019 15:28
--- NOTE | 2019-01-05 17:26 | NUR ---
Discharge Note: LACIE WILKES Discharge instructions and discharge home medications reviewed with Patient and a copy given. All questions have been answered and understanding verbalized. The following instructions and handouts were given: PICC line care instructions, medication list Discontinued lines and drains: DANNY single lumen PICC intact. Patient discharged to home with home heatlh with wheelchair via cab transportation
--- NOTE | 2019-01-05 17:30 | NUR ---
WOUND: Wet/dry dressing changed today, photo taken prior to discharge. Patient stated he understands home health nurse will reapply wound vac on visit tomorrow
[2019-01-05] MEDS ORDERED: DARBEPOETIN ALFA 100 MCG/0.5 ML DISP.SYRIN. SQ SCH (21:00)
[2019-01-05] MEDS ORDERED: DARBEPOETIN ALFA SQ SCH (21:00)
[2019-01-05] MEDS ORDERED: DARBEPOETIN ALFA 60 MCG/0.3 ML DISP.SYRIN. SQ SCH (21:00)
== END 2019-01-05 17:32 | disposition home health service (06) | DRG 640 ==
LOC: ER 10:38 → 2 SOUTH 12:27
PROVIDERS: ADMIT Internal Medicine; ATTEND Internal Medicine
PROC: 30233N1 Transfusion of Nonautologous Red Blood Cells into Peripheral Vein, Percutaneous Approach (ICD-10-PCS; principal; 2019-01-02)
PROC: 02HV33Z Insertion of Infusion Device into Superior Vena Cava, Percutaneous Approach (ICD-10-PCS; 2019-01-03)
PROC: B548ZZA Ultrasonography of Superior Vena Cava, Guidance (ICD-10-PCS; 2019-01-03)
PROC: 5A1D70Z Performance of Urinary Filtration, Intermittent, Less than 6 Hours Per Day (ICD-10-PCS; 2019-01-03)
PROC: 5A1D70Z Performance of Urinary Filtration, Intermittent, Less than 6 Hours Per Day (ICD-10-PCS; 2019-01-04)
DX: E87.70 Fluid overload, unspecified (principal); N18.6 End stage renal disease; I13.2 Hypertensive heart and chronic kidney disease with heart failure and with stage 5 chronic kidney disease, or end stage renal disease; E87.1 Hypo-osmolality and hyponatremia; D64.9 Anemia, unspecified; E03.9 Hypothyroidism, unspecified; E11.22 Type 2 diabetes mellitus with diabetic chronic kidney disease; E11.51 Type 2 diabetes mellitus with diabetic peripheral angiopathy without gangrene; E11.621 Type 2 diabetes mellitus with foot ulcer; E66.01 Morbid (severe) obesity due to excess calories; E78.5 Hyperlipidemia, unspecified; F03.90 Unspecified dementia, unspecified severity, without behavioral disturbance, psychotic disturbance, mood disturbance, and anxiety; I25.10 Atherosclerotic heart disease of native coronary artery without angina pectoris; I48.91 Unspecified atrial fibrillation; I50.9 Heart failure, unspecified; L97.519 Non-pressure chronic ulcer of other part of right foot with unspecified severity; M41.9 Scoliosis, unspecified; M06.9 Rheumatoid arthritis, unspecified; E21.3 Hyperparathyroidism, unspecified; F32.9 Major depressive disorder, single episode, unspecified; F41.9 Anxiety disorder, unspecified; K57.90 Diverticulosis of intestine, part unspecified, without perforation or abscess without bleeding; M19.90 Unspecified osteoarthritis, unspecified site; Z96.659 Presence of unspecified artificial knee joint; Z82.49 Family history of ischemic heart disease and other diseases of the circulatory system; Z83.3 Family history of diabetes mellitus; Z86.73 Personal history of transient ischemic attack (TIA), and cerebral infarction without residual deficits; Z91.15 Patient's noncompliance with renal dialysis; Z91.19 Patient's noncompliance with other medical treatment and regimen; Z95.5 Presence of coronary angioplasty implant and graft; Z99.2 Dependence on renal dialysis; Z88.8 Allergy status to other drugs, medicaments and biological substances; Z88.0 Allergy status to penicillin; Z91.013 Allergy to seafood
CPT/HCPCS: 36415; 36569; 71045; 80053; 80069; 82553; 82962; 83605; 83690; 83735; 83880; 84484; 85025; 85610; 86850; 86900; 86901; 86920; 87040; 93005; 94640; 94760; J2185; J7613; J7626; P9016; Q0163; 99285-25

== ENCOUNTER 2019-01-16 12:44 | Observation (INO) | payer OTHER, MEDICAID ==
[~2019-01-16] VITALS: Ht 198.1 cm; Wt 140.4 kg
[~2019-01-16 12:44] MED LIST changes: +LACT1CAP19 PO
[2019-01-16] MEDS ORDERED: IPRATRPIUM/ALBUTEROL 0.5/2.5MG 3 ML NEBU. NEB ONE (13:15)
[2019-01-16 13:35] LABS: BASO # 0.1 x10^3/uL (0.0-0.2); BASO % 2 % (0-3); EOS # 0.4 x10^3/uL (0.0-0.7); EOS % 5 % (0-3); HEMATOCRIT 25.6 % (39.0-53.0); HEMOGLOBIN 8.4 g/dL (13.0-17.5); LYMPH % 14 % (24-48); MEAN CORPUSCULAR HEMOGLOBIN 29 pg (25-35); MEAN CORPUSCULAR HGB CONC 33 g/dL (31-37); MEAN CORPUSCULAR VOLUME 89 fL (79-100); MONO # 0.7 x10^3/uL (0.0-1.1); MONO % 10 % (0-9); NEUT # 4.8 x10^3uL (1.8-7.7); NEUT % 68 % (31-73); PLATELET COUNT 184 x10^3/uL (140-400); RED BLOOD COUNT 2.88 x10^6/uL (4.30-5.70); RED CELL DISTRIBUTION WIDTH 15.8 % (11.5-14.5); WHITE BLOOD COUNT 7.1 x10^3/uL (4.0-11.0)
--- NOTE | 2019-01-16 13:40 | RAD ---
EXAM: CHEST 1 VIEW History: Shortness of breath COMPARISON: 01/03/2019 TECHNIQUE: Single portable radiograph of the chest FINDINGS: Moderate cardiomegaly unchanged. Minimal prominent bilateral interstitial lung markings. Vascular stent identified. IMPRESSION: Probable minimal congestive changes. Electronically signed by: Derek Sullivan MD (01/16/2019 1:37 PM) [place] [id number]
[2019-01-16 13:45] LABS: PROTHROMBIN TIME PATIENT 14.8 SEC (11.7-14.0)
--- NOTE | 2019-01-16 13:55 | PHYS DOC ---
Past Medical History Past Medical History: Asthma, CVA, Diabetes-Type II, Hypertension, HI, Pneumonia, Renal Failure Additional Past Medical Histor: 8 MIs, 8 CVAs, multiple stents Past Surgical History: Angioplasty, Other Additional Past Surgical Histo: HD SHUNT,TOE AMPUTATION,RIGHT ARM SX,RIGHT ARM FX,SCROTAL SX,HEART STENT Alcohol Use: None Drug Use: None Adult General Chief Complaint Chief Complaint: SHORTNESS OF BREATH HPI HPI Patient is a 53 year old L presented to ER today for evaluation of trouble breathing for the last few day. Patient has end-stage renal failure on hemodialysis Sunday and Sunday. Patient said he missed 4 sessions of his dialysis due to transportation problem. He denies any fever. Patient was given a DuoNeb treatment by EMS on route here. Review of Systems Review of Systems Constitutional: Denies fever or chills [] Eyes: Denies change in visual acuity, redness, or eye pain [] HENT: Denies nasal congestion or sore throat [] Respiratory: Denies cough , POSITIVE FOR shortness of breath [] Cardiovascular: No additional information not addressed in HPI [] GI: Denies abdominal pain, nausea, vomiting, bloody stools or diarrhea [] : Denies dysuria or hematuria [] Musculoskeletal: Denies back pain or joint pain [] Integument: Denies rash or skin lesions [] Neurologic: Denies headache, focal weakness or sensory changes [] Endocrine: Denies polyuria or polydipsia [] All other systems were reviewed and found to be within normal limits, except as documented in this note. Current Medications Current Medications Current Medications Medications (Trade) Dose Ordered Sig/[place] Start Time Stop Time Status Last Admin Dose Admin Albuterol Sulfate (Ventolin Neb Soln) 10 mg 1X ONCE 01/16/19 14:15 01/16/19 14:16 DC Albuterol/ Ipratropium (Duoneb) 3 ml 1X ONCE 01/16/19 13:15 01/16/19 13:17 DC 01/16/19 13:38 3 ML Allergies Allergies Allergies Coded Allergies Type Severity Reaction Last Updated Verified iodine Allergy Severe THROAT SWELLING 01/16/19 Yes lisinopril Allergy Severe 01/16/19 Yes Fish Containing Products Allergy Intermediate 01/16/19 Yes Penicillins Allergy Intermediate SEE COMMENT 01/16/19 Yes piperacillin Allergy Intermediate Hives 01/16/19 Yes tazobactam Allergy Intermediate 01/16/19 Yes Physical Exam Physical Exam Constitutional: Well developed, well nourished, no acute distress, non-toxic appearance. [] HENT: Normocephalic, atraumatic, bilateral external ears normal, oropharynx moist, no oral exudates, nose normal. [] Eyes: PERRLA, EOMI, conjunctiva normal, no discharge. [] Neck: Normal range of motion, no tenderness, supple, no stridor. [] Cardiovascular:Heart rate regular rhythm, no murmur [] Lungs & Thorax: LUNG SOUND WITH EXPIRATORY WHEEZING, RALES AT BASES. Abdomen: Bowel sounds normal, soft, no tenderness, no masses, no pulsatile masses. [] Skin: Warm, dry, no erythema, no rash. [] Back: No tenderness, no CVA tenderness. [] Extremities:LEFT BKA, RIGHT FOOT WITH DIABETIC WOUND, WOUND VAC IN PLACE. Neurologic: Alert and oriented X 3, normal motor function, normal sensory function, no focal deficits noted. [] Psychologic: Affect normal, judgement normal, mood normal. [] Current Patient Data Vital Signs Vital Signs Date Time Temp Pulse Resp B/P (MAP) Pulse Ox O2 Delivery O2 Flow Rate FiO2 01/16/19 13:41 100 Room Air 01/16/19 12:44 97.6 98 22 189/88 (121) 97.6 Lab Values Laboratory Tests Test 01/16/19 13:25 White Blood Count 7.1 x10^3/uL (4.0-11.0) Red Blood Count 2.88 x10^6/uL (4.30-5.70) L Hemoglobin 8.4 g/dL (13.0-17.5) L Hematocrit 25.6 % (39.0-53.0) L Mean Corpuscular Volume 89 fL (79-100) Mean Corpuscular Hemoglobin 29 pg (25-35) Mean Corpuscular Hemoglobin Concent 33 g/dL (31-37) Red Cell Distribution Width 15.8 % (11.5-14.5) H Platelet Count 184 x10^3/uL (140-400) Neutrophils (%) (Auto) 68 % (31-73) Lymphocytes (%) (Auto) 14 % (24-48) L Monocytes (%) (Auto) 10 % (0-9) H Eosinophils (%) (Auto) 5 % (0-3) H Basophils (%) (Auto) 2 % (0-3) Neutrophils # (Auto) 4.8 x10^3uL (1.8-7.7) Lymphocytes # (Auto) 1.0 x10^3/uL (1.0-4.8) Monocytes # (Auto) 0.7 x10^3/uL (0.0-1.1) Eosinophils # (Auto) 0.4 x10^3/uL (0.0-0.7) Basophils # (Auto) 0.1 x10^3/uL (0.0-0.2) Prothrombin Time 14.8 SEC (11.7-14.0) H Prothrombin Time INR 1.2 (0.8-1.1) H PTT 36 SEC (24-38) Sodium Level 140 mmol/L (136-145) Potassium Level 5.7 mmol/L (3.5-5.1) H Chloride Level 107 mmol/L (98-107) Carbon Dioxide Level 21 mmol/L (21-32) Anion Gap 12 (6-14) Blood Urea Nitrogen 61 mg/dL (8-26) H Creatinine 5.8 mg/dL (0.7-1.3) H Estimated GFR (Cockcroft-Gault) 12.4 BUN/Creatinine Ratio 11 (6-20) Glucose Level 124 mg/dL (70-99) H Calcium Level 8.9 mg/dL (8.5-10.1) Total Bilirubin 0.7 mg/dL (0.2-1.0) Aspartate Amino Transferase (AST) 18 U/L (15-37) Alanine Aminotransferase (ALT) 13 U/L (16-63) L Alkaline Phosphatase 65 U/L (46-116) Troponin I Quantitative 0.029 ng/mL (0.000-0.055) JL-Biu-R-Type Natriuretic Peptide 14310 pg/mL (0-124) H Total Protein 7.5 g/dL (6.4-8.2) Albumin 2.8 g/dL (3.4-5.0) L Albumin/Globulin Ratio 0.6 (1.0-1.7) L Laboratory Tests 01/16/19 13:25 Laboratory Tests 01/16/19 13:25 EKG EKG EKG RATE OF 92 BPM, SINUS RHYTHM, NO STEMI[] Radiology/Procedures Radiology/Procedures [][facility] [address] [place] [address] IMAGING REPORT Signed PATIENT: BHAVYA WILKES ACCOUNT: [id number] : 1965 LOCATION: ER AGE: 53 SEX: M EXAM STATUS: REG ER ORD. PHYSICIAN: RADHA GRAY DO REASON: shortness of air PROCEDURE: PORTABLE CHEST 1V EXAM: CHEST 1 VIEW History: Shortness of breath COMPARISON: 01/03/2019 TECHNIQUE: Single portable radiograph of the chest FINDINGS: Moderate cardiomegaly unchanged. Minimal prominent bilateral interstitial lung markings. Vascular stent identified. IMPRESSION: Probable minimal congestive changes. Electronically signed by: Derek Miller MD (01/16/2019 1:37 PM) [facility] DICTATED and SIGNED BY: DEREK MILLER MD DATE: 01/16/19 1337 Course & Med Decision Making Course & Med Decision Making Pertinent Labs and Imaging studies reviewed. (See chart for details) [] Dragon Disclaimer Dragon Disclaimer This electronic medical record was generated, in whole or in part, using a voice recognition dictation system. Departure Departure Impression: Primary Impression: Hypertensive urgency Additional Impressions: ESRD (end stage renal disease) on dialysis Dyspnea Disposition: ADMITTED INPATIENT Admitting Physician: HIMElmo Condition: IMPROVED Referrals: MARIA ISABEL LOPEZ DO (PCP) Problem Qualifiers RADHA GRAY DO Jan 16, 2019 13:55
[2019-01-16 13:56] LABS: CALCIUM 8.9 mg/dL (8.5-10.1); CREATININE 5.8 mg/dL (0.7-1.3); GFR 12.4
[2019-01-16 14:01] LABS: POTASSIUM 5.7 mmol/L (3.5-5.1)
[2019-01-16 14:04] LABS: ALBUMIN 2.8 g/dL (3.4-5.0); ALBUMIN/GLOBULIN RATIO 0.6 (1.0-1.7); TOTAL BILIRUBIN 0.7 mg/dL (0.2-1.0); TOTAL PROTEIN 7.5 g/dL (6.4-8.2)
--- NOTE | 2019-01-16 14:06 | EKG ---
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
[2019-01-16] MEDS ORDERED: ALBUTEROL SULFATE 2.5 MG/3 ML NEBU. CONT NEB ONE (14:15)
[2019-01-16] MEDS ORDERED: IV NORMAL SALINE 1000ML BAG 1,000 ML IV PRN ×2 (16:55)
[2019-01-16] MEDS ORDERED: DIALYSIS PATIENT. MC PRN ×2 (17:00)
[2019-01-16 20:15] VITALS: BP 150/64
--- NOTE | 2019-01-16 20:26 | PDOC1 ---
History and Physical Date of Admission Date of Admission DATE: 01/16/19 TIME: 20:26 Source Source: Chart review, Patient History of Present Illness History of Present Illness MR. Goel, is a 53 year old admit for chest pressure and shortness of breath. He has new orthopnea and could not breathe well He is ESRD and had missed HD for a week after his time was changed and his transportation was not notified. . Patient has end-stage renal failure on hemodialysis Sunday and Sunday. he was seen by me on HD, feeling better after started Past Medical History Cardiovascular: AFIB, CAD, CHF, HTN, RI, Hyperlipidemia, Other Pulmonary: COPD CENTRAL NERVOUS SYSTEM: Dementia, Periperal neuropathy, Seizure, TIA GI: Diverticulosis, Other Heme/Onc: Anemia NOS Hepatobiliary: No pertinent hx Psych: Anxiety, Depression Musculoskeletal: Osteoarthritis Rheumatologic: Rheumatoid arthritis Infectious disease: No pertinent hx Renal/: Chronic renal failure Endocrine: Diabetes, Hypothyroidism, Hyperparathyroidism Past Surgical History Past Surgical History: Cataract Removal, Total knee replacement, Other Family History Family History: Diabetes, Hypertension Family History: Parent Social History Smoke: No ALCOHOL: none Drugs: None Current Problem List Problem List Problems Medical Problems: (1) Dyspnea Status: Acute (2) Hypertensive urgency Status: Acute Current Medications Current Medications Current Medications Albuterol/ Ipratropium (Duoneb) 3 ml 1X ONCE NEB Last administered on 01/16/19at 13:38; Start 01/16/19 at 13:15; Stop 01/16/19 at 13:17; Status DC Albuterol Sulfate (Ventolin Neb Soln) 10 mg 1X ONCE CONT NEB Last administered on 01/16/19at 14:57; Start 01/16/19 at 14:15; Stop 01/16/19 at 14:16; Status DC Sodium Chloride 1,000 ml @ 1,000 mls/hr Q1H PRN IV hypotension; Start 01/16/19 at 16:55; Stop 01/16/19 at 22:54 Sodium Chloride 1,000 ml @ 400 mls/hr Q2H30M PRN IV PATENCY; Start 01/16/19 at 16:55; Stop 01/17/19 at 04:54 Info (PHARMACY MONITORING -- do not chart) 1 each PRN DAILY PRN MC SEE COMMENTS; Start 01/16/19 at 17:00 Info (PHARMACY MONITORING -- do not chart) 1 each PRN DAILY PRN MC SEE COMMENTS; Start 01/16/19 at 17:00 Active Scripts Active Culturelle (Lactobacillus Rhamnosus Gg) 1 Each Cap.sprink 1 Cap PO BID 14 Days Isosorbide Mononitrate Er (Isosorbide Mononitrate) 30 Mg Tab.er.24h 30 Mg PO DAILY 30 Days Coreg (Carvedilol) 3.125 Mg Tablet 3.125 Mg PO BIDWMEALS Lipitor (Atorvastatin Calcium) 80 Mg Tablet 40 Mg PO HS Flovent 110MCG Hfa (Fluticasone Propionate) 12 Gm Aer.w.adap 2 Puff IH BID Zolpidem Tartrate 5 Mg Tablet 1 Tab PO QHS PRN Mirapex (Pramipexole Di-Hcl) 0.25 Mg Tablet 1 Tab PO DAILY Famotidine 20 Mg Tablet 20 Mg PO HS Ventolin Hfa Inhaler (Albuterol Sulfate) 18 Gm Hfa.aer.ad 1 Puff INH Q6HRS PRN Levothyroxine Sodium 175 Mcg Tablet 175 Mcg PO DAILYAC Merrem (Meropenem) 500 Mg Vial 500 Mg IV DAILY Reported Magnesium (Magnesium Oxide) 400 Mg Capsule 250 Mg PO DAILY Tums (Calcium Carbonate) 200 Mg Tab.chew 200 Mg PO PRN Q4HRS PRN Hydrocodone-Acetamin 5-325 mg (Hydrocodone/Acetaminophen) 1 Each Tablet 1 Each PO PRN Q6HRS PRN Aspirin 81 Mg Tab.chew 1 Tab PO DAILY Tradjenta (Linagliptin) 5 Mg Tablet 5 Mg PO DAILY Diphenhydramine Hcl 50 Mg Capsule 1 Cap PO PRN Calcium Carbonate 500 Mg Tablet 500 Mg PO BID Keppra (Levetiracetam) 1,000 Mg Tablet 1 Tab PO BID Tylenol (Acetaminophen) 325 Mg Tablet 650 Mg PO PRN Q6HRS PRN Allergies Allergies: Coded Allergies: iodine (Verified Allergy, Severe, THROAT SWELLING, 01/16/19) lisinopril (Verified Allergy, Severe, 01/16/19) Fish Containing Products (Verified Allergy, Intermediate, 01/16/19) Penicillins (Verified Allergy, Intermediate, SEE COMMENT, 01/16/19) Tolerates meropenem and Cephalosporins piperacillin (Verified Allergy, Intermediate, Hives, 01/16/19) Tolerates meropenem tazobactam (Verified Allergy, Intermediate, 01/16/19) ROS General: YES: Chills, Fatigue, Malaise; No: Night Sweats, Appetite, Other PSYCHOLOGICAL ROS: YES: Sleep disturbances Eyes: No Blurry vision, No Decreased vision, No Double vision, No Dry eyes, No Excessive tearing, No Eye Pain, No Itchy Eyes, No Loss of vision, No Photophobia, No Scotomata, No Uses contacts, No Uses glasses, No Other HEENT: No: Heacaches, Visual Changes, Hearing change, Nasal congestion, Nasal discharge, Oral lesions, Sinus pain, Sore Throat, Epistaxis, Sneezing, Snoring, Tinnitus, Vertigo, Vocal changes, Other Respiratory: YES: Orthopnea, Shortness of breath Cardiovascular: yes Chest Pain; No Palpitations, No Orthopnea, No Paroxysmal Noc. Dyspnea, No Edema, No Lt Headedness, No Other Gastrointestinal: No Nausea, No Vomiting, No Abdominal Pain, No Diarrhea, No Constipation, No Melena, No Hematochezia, No Other Genitourinary: No Dysuria, No Frequency, No Incontinence, No Hematuria, No Retention, No Discharge, No Urgency, No Pain, No Flank Pain, No Other, No , No , No , No , No , No , No Musculoskeletal: Yes Joint Stiffness, Yes Pain In:; No Gait Disturbance, No Joint Pain, No Joint Swelling, No Muscle Pain, No Muscular Weakness, No Swelling In:, No Other Neurological: No Behavorial Changes, No Bowel/Bladder ControlChng, No Confusion, No Dizziness, No Gait Disturbance, No Headaches, No Impaired Coord/balance, No Memory Loss, No Numbness/Tingling, No Seizures, No Speech Problems, No Tremors, No Visual Changes, No Weakness, No Other Skin: Yes Rash, Yes Other; No Dry Skin, No Eczema, No Hair Changes, No Lumps, No Mole Changes, No Mottling, No Nail Changes, No Pruritus, No Skin Lesion Changes, No Acne Physical Exam General: Alert, Cooperative, mild distress HEENT: PERRLA, EOMI, Mucous membr. moist/pink Lungs: Clear to auscultation Heart: S1S2 Abdomen: Normal bowel sounds, Soft Extremities: No edema, Normal pulses Skin: No rashes Neuro: Strength at 5/5 X4 ext, Normal tone, Cranial nerves 3-12 NL Psych/Mental Status: Mental status NL, Mood NL Vitals Vitals Vital Signs Date Time Temp Pulse Resp B/P (MAP) Pulse Ox O2 Delivery O2 Flow Rate FiO2 01/16/19 20:15 98.4 91 20 150/64 (92) Room Air 98.4 01/16/19 15:48 98 Labs Labs Laboratory Tests Test 01/16/19 13:25 White Blood Count 7.1 x10^3/uL (4.0-11.0) Red Blood Count 2.88 x10^6/uL (4.30-5.70) Hemoglobin 8.4 g/dL (13.0-17.5) Hematocrit 25.6 % (39.0-53.0) Mean Corpuscular Volume 89 fL (79-100) Mean Corpuscular Hemoglobin 29 pg (25-35) Mean Corpuscular Hemoglobin Concent 33 g/dL (31-37) Red Cell Distribution Width 15.8 % (11.5-14.5) Platelet Count 184 x10^3/uL (140-400) Neutrophils (%) (Auto) 68 % (31-73) Lymphocytes (%) (Auto) 14 % (24-48) Monocytes (%) (Auto) 10 % (0-9) Eosinophils (%) (Auto) 5 % (0-3) Basophils (%) (Auto) 2 % (0-3) Neutrophils # (Auto) 4.8 x10^3uL (1.8-7.7) Lymphocytes # (Auto) 1.0 x10^3/uL (1.0-4.8) Monocytes # (Auto) 0.7 x10^3/uL (0.0-1.1) Eosinophils # (Auto) 0.4 x10^3/uL (0.0-0.7) Basophils # (Auto) 0.1 x10^3/uL (0.0-0.2) Prothrombin Time 14.8 SEC (11.7-14.0) Prothromb Time International Ratio 1.2 (0.8-1.1) Activated Partial Thromboplast Time 36 SEC (24-38) Sodium Level 140 mmol/L (136-145) Potassium Level 5.7 mmol/L (3.5-5.1) Chloride Level 107 mmol/L (98-107) Carbon Dioxide Level 21 mmol/L (21-32) Anion Gap 12 (6-14) Blood Urea Nitrogen 61 mg/dL (8-26) Creatinine 5.8 mg/dL (0.7-1.3) Estimated GFR (Cockcroft-Gault) 12.4 BUN/Creatinine Ratio 11 (6-20) Glucose Level 124 mg/dL (70-99) Calcium Level 8.9 mg/dL (8.5-10.1) Total Bilirubin 0.7 mg/dL (0.2-1.0) Aspartate Amino Transf (AST/SGOT) 18 U/L (15-37) Alanine Aminotransferase (ALT/SGPT) 13 U/L (16-63) Alkaline Phosphatase 65 U/L (46-116) Troponin I Quantitative 0.029 ng/mL (0.000-0.055) DP-Lwq-Q-Type Natriuretic Peptide 12048 pg/mL (0-124) Total Protein 7.5 g/dL (6.4-8.2) Albumin 2.8 g/dL (3.4-5.0) Albumin/Globulin Ratio 0.6 (1.0-1.7) Laboratory Tests Test 01/16/19 13:25 White Blood Count 7.1 x10^3/uL (4.0-11.0) Red Blood Count 2.88 x10^6/uL (4.30-5.70) Hemoglobin 8.4 g/dL (13.0-17.5) Hematocrit 25.6 % (39.0-53.0) Mean Corpuscular Volume 89 fL (79-100) Mean Corpuscular Hemoglobin 29 pg (25-35) Mean Corpuscular Hemoglobin Concent 33 g/dL (31-37) Red Cell Distribution Width 15.8 % (11.5-14.5) Platelet Count 184 x10^3/uL (140-400) Neutrophils (%) (Auto) 68 % (31-73) Lymphocytes (%) (Auto) 14 % (24-48) Monocytes (%) (Auto) 10 % (0-9) Eosinophils (%) (Auto) 5 % (0-3) Basophils (%) (Auto) 2 % (0-3) Neutrophils # (Auto) 4.8 x10^3uL (1.8-7.7) Lymphocytes # (Auto) 1.0 x10^3/uL (1.0-4.8) Monocytes # (Auto) 0.7 x10^3/uL (0.0-1.1) Eosinophils # (Auto) 0.4 x10^3/uL (0.0-0.7) Basophils # (Auto) 0.1 x10^3/uL (0.0-0.2) Prothrombin Time 14.8 SEC (11.7-14.0) Prothromb Time International Ratio 1.2 (0.8-1.1) Activated Partial Thromboplast Time 36 SEC (24-38) Sodium Level 140 mmol/L (136-145) Potassium Level 5.7 mmol/L (3.5-5.1) Chloride Level 107 mmol/L (98-107) Carbon Dioxide Level 21 mmol/L (21-32) Anion Gap 12 (6-14) Blood Urea Nitrogen 61 mg/dL (8-26) Creatinine 5.8 mg/dL (0.7-1.3) Estimated GFR (Cockcroft-Gault) 12.4 BUN/Creatinine Ratio 11 (6-20) Glucose Level 124 mg/dL (70-99) Calcium Level 8.9 mg/dL (8.5-10.1) Total Bilirubin 0.7 mg/dL (0.2-1.0) Aspartate Amino Transf (AST/SGOT) 18 U/L (15-37) Alanine Aminotransferase (ALT/SGPT) 13 U/L (16-63) Alkaline Phosphatase 65 U/L (46-116) Troponin I Quantitative 0.029 ng/mL (0.000-0.055) UY-Ymn-V-Type Natriuretic Peptide 13753 pg/mL (0-124) Total Protein 7.5 g/dL (6.4-8.2) Albumin 2.8 g/dL (3.4-5.0) Albumin/Globulin Ratio 0.6 (1.0-1.7) VTE Prophylaxis Ordered VTE Prophylaxis Devices: Contraindicated VTE Pharmacological Prophylaxi: Yes Assessment/Plan Assessment/Plan fluid overload, acute diastolic CHF due to renal ESRD, on HD, had missed 3x due to time change and transportation issues obesity, BMI 36 PVD, right leg wound chronic cellutiis RLE with wound vac weakness and debility htn admit SUGAR BEAL MD Jan 16, 2019 20:26
[2019-01-16] MEDS ORDERED: ATORVASTATIN CALCIUM 40 MG TABLET. PO SCH (22:00)
[2019-01-16] MEDS ORDERED: ZOLPIDEM 5 MG TABLET. PO PRN (22:00)
[2019-01-16] MEDS ORDERED: FAMOTIDINE 20 MG TABLET. PO SCH (22:00)
[2019-01-16] MEDS ORDERED: ACETAMINOPHEN 325 MG TABLET. PO PRN (22:00)
[2019-01-16] MEDS ORDERED: NON FORMULARY ITEM (Albuterol Sulfate (Ventolin Hfa Inhaler) 1 PUFF) INH PRN (22:00)
[2019-01-16] MEDS ORDERED: CALCIUM CARBONATE 500 MG TAB.CHEW PO PRN (22:00)
[2019-01-16] MEDS ORDERED: diphenhydrAMINE HCL 25 MG CAPSULE PO PRN (22:00)
[2019-01-16] MEDS ORDERED: levETIRAcetam 500 MG TABLET PO SCH (22:00)
[2019-01-16] MEDS ORDERED: ALBUTEROL SULFATE 2.5 MG/3 ML NEBU. NEB PRN (22:15)
[2019-01-16] MEDS ORDERED: CETI10TA16 PO (22:35)
[2019-01-16] MEDS ORDERED: CLOP75TA PO (22:35)
[2019-01-16] MEDS: HYDROcodone/APAP 5/325MG 1 TAB TABLET PO PRN (22:49)
[2019-01-16] MEDS: levETIRAcetam 500 MG TABLET PO SCH (22:49)
[2019-01-16] MEDS: LACTOBACILLUS RHAMNOSUS GG 1 CAPSULE. PO SCH (22:49)
[2019-01-16 23:25] VITALS: BP 141/69
--- NOTE | 2019-01-17 03:02 | NUR ---
Pt admitted during the noc with wound vac in place on right foot however pt with wound vac canister full. No other empty canisters available. Wound vac removed odor noted, wound cleansed with wound cleanser and pictures taken. Pt states cultures were taken in ED from drainage. After cleansing wound, wet-to-dry dressing applied. Pt tolerated without complaints. Pt instructed that wound care will see pt tomorrow to place wound vac back on if ok with Physician. Pt called back out later in the noc and states dressing has been removed. Assessed site and removed old dressing, cleansed site again, no odor noted. Applied new dressing, pt tolerated without complaints. Will continue to monitor closely.
[2019-01-17 03:18] VITALS: BP 127/76
[2019-01-17] MEDS ORDERED: LEVOTHYROXINE 175 MCG TABLET PO SCH (06:00)
[2019-01-17] MEDS: HYDROcodone/APAP 5/325MG 1 TAB TABLET PO PRN (06:09)
[2019-01-17 07:00] VITALS: BP 143/69
[2019-01-17] MEDS ORDERED: BUDESONIDE 0.5 MG/2 ML NEBU. NEB SCH (08:00)
[2019-01-17] MEDS ORDERED: CARVEDILOL 3.125 MG TABLET. PO SCH (08:00)
[2019-01-17] MEDS ORDERED: LINAGLIPTIN 5 MG TABLET PO SCH (09:00)
[2019-01-17] MEDS ORDERED: NON FORMULARY ITEM (Fluticasone Propionate (Flovent 110MCG Hfa) 2 PUFF) IH SCH (09:00)
[2019-01-17] MEDS ORDERED: PRAMIPEXOLE 0.25 MG TABLET. PO SCH (09:00)
[2019-01-17] MEDS ORDERED: MEROPENEM 500 MG in IV NORMAL SALINE 50ML 50 ML IV SCH (09:00)
[2019-01-17] MEDS ORDERED: MEROPENEM 500 MG IV SCH (09:00)
[2019-01-17] MEDS ORDERED: ASPIRIN CHEWABLE 81 MG TABLET. PO SCH (09:00)
[2019-01-17] MEDS ORDERED: MAGNESIUM OXIDE 400 MG TABLET PO SCH (09:00)
[2019-01-17] MEDS ORDERED: CALCIUM CARBONATE 500 MG TABLET PO SCH (09:00)
[2019-01-17] MEDS: levETIRAcetam 500 MG TABLET PO SCH (09:07)
[2019-01-17] MEDS: LACTOBACILLUS RHAMNOSUS GG 1 CAPSULE. PO SCH (09:07)
[2019-01-17 11:00] VITALS: BP 133/60
[2019-01-17] MEDS ORDERED: ONDANSETRON PF 4 MG/2 ML VIAL. IV PRN (13:00)
--- NOTE | 2019-01-17 14:00 | NUR ---
SW arranged transportation via [employer] for [id number]. RN and pt notified.
--- NOTE | 2019-01-17 14:08 | NUR ---
Wound Care Wound care consult for R DFU. Pt is current pt of [facility] and is well known to WC team from prior admissions. PT has open TMA that has been being treated with wound vac and Home health nurse. Pt has missed several [facility] visits due to transportation. Cleansed wound, packed depth with pee, applied wound vac with ostomy ring to rell-wound for protection. NPWT 125 mmHg continuous pressure. will take home canister t pt room to be used when he discharges, pt has visit scheduled in [facility] on Sunday for next dressing change. will continue to follow for possible changes. Pt in recliner and refused to turn for full skin inspection, stating he does not have any other wounds.
--- NOTE | 2019-01-17 14:10 | PDOC3 ---
Discharge Summary Visit Information Date of Admission: Jan 16, 2019 Date of Discharge: Jan 17, 2019 Admitting Diagnosis Comment: fluid overload, acute diastolic CHF due to renal ESRD, on HD, had missed 3x due to time change and transportation issues obesity, BMI 36 PVD, right leg wound chronic cellutiis RLE with wound vac weakness and debility htn Final Diagnosis Problems Medical Problems: (1) Dyspnea Status: Acute (2) Hypertensive urgency Status: Acute Brief Hospital Course Allergies Allergies Coded Allergies Type Severity Reaction Last Updated Verified iodine Allergy Severe THROAT SWELLING 01/16/19 Yes lisinopril Allergy Severe 01/16/19 Yes Fish Containing Products Allergy Intermediate 01/16/19 Yes Penicillins Allergy Intermediate SEE COMMENT 01/16/19 Yes piperacillin Allergy Intermediate Hives 01/16/19 Yes tazobactam Allergy Intermediate 01/16/19 Yes Vital Signs Vital Signs Date Time Temp Pulse Resp B/P (MAP) Pulse Ox O2 Delivery O2 Flow Rate FiO2 01/17/19 11:00 98.6 92 20 133/60 (84) 97 Room Air 98.6 Lab Results Laboratory Tests Test 01/16/19 13:25 01/16/19 20:51 01/17/19 07:21 01/17/19 11:22 White Blood Count 7.1 x10^3/uL (4.0-11.0) Red Blood Count 2.88 x10^6/uL (4.30-5.70) Hemoglobin 8.4 g/dL (13.0-17.5) Hematocrit 25.6 % (39.0-53.0) Mean Corpuscular Volume 89 fL (79-100) Mean Corpuscular Hemoglobin 29 pg (25-35) Mean Corpuscular Hemoglobin Concent 33 g/dL (31-37) Red Cell Distribution Width 15.8 % (11.5-14.5) Platelet Count 184 x10^3/uL (140-400) Neutrophils (%) (Auto) 68 % (31-73) Lymphocytes (%) (Auto) 14 % (24-48) Monocytes (%) (Auto) 10 % (0-9) Eosinophils (%) (Auto) 5 % (0-3) Basophils (%) (Auto) 2 % (0-3) Neutrophils # (Auto) 4.8 x10^3uL (1.8-7.7) Lymphocytes # (Auto) 1.0 x10^3/uL (1.0-4.8) Monocytes # (Auto) 0.7 x10^3/uL (0.0-1.1) Eosinophils # (Auto) 0.4 x10^3/uL (0.0-0.7) Basophils # (Auto) 0.1 x10^3/uL (0.0-0.2) Prothrombin Time 14.8 SEC (11.7-14.0) Prothromb Time International Ratio 1.2 (0.8-1.1) Activated Partial Thromboplast Time 36 SEC (24-38) Sodium Level 140 mmol/L (136-145) Potassium Level 5.7 mmol/L (3.5-5.1) Chloride Level 107 mmol/L (98-107) Carbon Dioxide Level 21 mmol/L (21-32) Anion Gap 12 (6-14) Blood Urea Nitrogen 61 mg/dL (8-26) Creatinine 5.8 mg/dL (0.7-1.3) Estimated GFR (Cockcroft-Gault) 12.4 BUN/Creatinine Ratio 11 (6-20) Glucose Level 124 mg/dL (70-99) Calcium Level 8.9 mg/dL (8.5-10.1) Total Bilirubin 0.7 mg/dL (0.2-1.0) Aspartate Amino Transf (AST/SGOT) 18 U/L (15-37) Alanine Aminotransferase (ALT/SGPT) 13 U/L (16-63) Alkaline Phosphatase 65 U/L (46-116) Troponin I Quantitative 0.029 ng/mL (0.000-0.055) PD-Kou-D-Type Natriuretic Peptide 93370 pg/mL (0-124) Total Protein 7.5 g/dL (6.4-8.2) Albumin 2.8 g/dL (3.4-5.0) Albumin/Globulin Ratio 0.6 (1.0-1.7) Glucose (Fingerstick) 77 mg/dL (70-99) 249 mg/dL (70-99) 170 mg/dL (70-99) Laboratory Tests Test 01/16/19 20:51 01/17/19 07:21 01/17/19 11:22 Glucose (Fingerstick) 77 mg/dL (70-99) 249 mg/dL (70-99) 170 mg/dL (70-99) Brief Hospital Course Mr. Goel is a 53 old male, admitted because of fluid overload missed dialysis because of transportation issues. Had hypertensive urgency. We fixed that after getting dialyzed with no change in his BP home meds. Was on IV meropenem by wound care and follows with wound care, has a wound VAC on the right leg. 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 Okay to DC meropenem as he has finished his course. We'll ask renal if okay to DC later today otherwise no PT needs Potassium 5.7 we are repeating. Patient is nontoxic appearing and looks well Discussed with RN AQUILES time< 30 Discharge Information Condition at Discharge: Improved, Stable Disposition/Orders: D/C to Home Scheduled Aspirin (Aspirin) 81 Mg Tab.chew, 1 TAB PO DAILY for CAD, #30 Ref 3 (Reported) Entered as Reported by: MARIO BUCIO on 12/18/18 1316 Last Taken: Unknown Dose on 01/15/19 Last Action: Last Taken Edited on 01/16/192234 by LUIS HADDAD Atorvastatin Calcium (Lipitor) 80 Mg Tablet, 40 MG PO HS for FOR CHOLESTEROL, #30 Ref 3 Prescribed by: SUGAR BEAL on 12/03/181516 Last Taken: Unknown Dose on 01/15/19 Last Action: Last Taken Edited on 01/16/192234 by LUIS HADDAD Calcium Carbonate (Calcium Carbonate) 500 Mg Tablet, 500 MG PO BID for supplem ent, (Reported) Entered as Reported by: Daron Shipley on 06/28/18 1154 Last Action: Continued on 01/16/192146 by SUGAR BEAL Carvedilol (Coreg ) 3.125 Mg Tablet, 3.125 MG PO BIDWMEALS for heart failure, #60 Ref 4 Prescribed by: SUGAR BEAL on 12/03/181516 Last Taken: Unknown Dose on 01/15/19 Last Action: Last Taken Edited on 01/16/192234 by LUIS HADDAD Cetirizine Hcl (Cetirizine Hcl) 10 Mg Tablet, 1 TAB PO DAILY for allergy, #30 Ref 5 (Reported) Entered as Reported by: LUIS HADDAD on 01/16/192234 Last Taken: Unknown Dose on 01/15/19 Last Action: New Order on 01/16/192234 by LUIS HADDAD Clopidogrel Bisulfate (Clopidogrel) 75 Mg Tablet, 1 TAB PO DAILY for antiplatelet, #90 Ref 1 (Reported) Entered as Reported by: LUIS HADDAD on 01/16/192234 Last Taken: Unknown Dose on 01/15/19 Last Action: New Order on 01/16/192234 by LUIS HADDAD Diphenhydramine Hcl (Diphenhydramine Hcl) 50 Mg Capsule, 1 CAP PO PRN for itching, #30 Ref 1 (Reported) Entered as Reported by: Funmilayo Pardo on 12/16/182349 Last Taken: Unknown Dose on Unknown Date & Time Last Action: Last Taken Edited on 01/16/192234 by LUIS HADDAD Famotidine (Famotidine) 20 Mg Tablet, 20 MG PO HS for GERD, #30 Ref 3 Prescribed by: SUGAR BEAL on 12/03/181516 Last Taken: Unknown Dose on 01/15/19 Last Action: Last Taken Edited on 01/16/192234 by LUIS HADDAD Fluticasone Propionate (Flovent 110MCG Hfa) 12 Gm Aer.w.adap, 2 PUFF IH BID for asthma, #1 Ref 3 Prescribed by: SUGAR BEAL on 12/03/181516 Last Action: Converted on 01/16/192146 by SUGAR BEAL Isosorbide Mononitrate (Isosorbide Mononitrate Er) 30 Mg Tab.er.24h, 30 MG PO DAILY for angina for 30 Days, #30 Ref 3 Prescribed by: SUGAR BEAL on 12/03/181516 Last Taken: Unknown Dose on 01/15/19 Last Action: Last Taken Edited on 01/16/192234 by LUIS HADDAD Lactobacillus Rhamnosus Gg (Culturelle) 1 Each Cap.sprink, 1 CAP PO BID for SUPPLEMENT for 14 Days, #28 Prescribed by: NICHOLE THORNTON MD on 01/05/19 1527 Last Taken: Unknown Dose on 01/15/19 Last Action: Last Taken Edited on 01/16/192234 by LUIS HADDAD Levetiracetam (Keppra) 1,000 Mg Tablet, 1 TAB PO BID, #60 Ref 5 (Reported) Entered as Reported by: JACKEILN TEIXEIRA on 04/14/18 1359 Last Taken: Unknown Dose on 01/15/19 Last Action: Last Taken Edited on 01/16/192233 by LUIS HADDAD Levothyroxine Sodium (Levothyroxine Sodium) 175 Mcg Tablet, 175 MCG PO DAILYAC for THYROID SUPPLEMENT, #30 Ref 4 Prescribed by: SUGAR BEAL on 12/03/18 1510 Last Taken: Unknown Dose on 01/15/19 Last Action: Last Taken Edited on 01/16/192234 by LUIS HADDAD Linagliptin (Tradjenta) 5 Mg Tablet, 5 MG PO DAILY for TYPE 2 DIABETES, (Reported) Entered as Reported by: Funmilayo Pardo on 12/16/18 2352 Last Taken: Unknown Dose on 01/15/19 Last Action: Last Taken Edited on 01/16/192234 by LUIS HADDAD Magnesium Oxide (Magnesium) 400 Mg Capsule, 250 MG PO BID for per med list , (Reported) Entered as Reported by: BRITTANY LARIOS on 01/02/19 1558 Last Taken: Unknown Dose on 01/15/19 Last Action: Edited on 01/16/192234 by LUIS HADDAD Meropenem (Merrem) 500 Mg Vial, 500 MG IV DAILY for foot infection, #35 Prescribed by: SUGAR BEAL on 12/03/18 1404 Last Taken: Unknown Dose on 01/13/19 Last Action: Last Taken Edited on 01/16/192233 by LUIS HADDAD Pramipexole Di-Hcl (Mirapex) 0.25 Mg Tablet, 1 TAB PO DAILY for restless leg, #30 Ref 4 Prescribed by: SUGAR BEAL on 12/03/181516 Last Taken: Unknown Dose on 01/15/19 Last Action: Last Taken Edited on 01/16/192234 by LUIS HADDAD Scheduled PRN Acetaminophen (Tylenol) 325 Mg Tablet, 650 MG PO PRN Q6HRS PRN for FEVER, (Reported) Entered as Reported by: DELMA BOLDEN on 07/31/17 1729 Last Taken: Unknown Dose on Unknown Date & Time Last Action: Last Taken Edited on 01/16/192233 by LUIS HADDAD Albuterol Sulfate (Ventolin Hfa Inhaler) 18 Gm Hfa.aer.ad, 1 PUFF INH Q6HRS PRN for SHORTNESS OF BREATH, #1 Ref 0 Prescribed by: SUGAR BEAL on 4/23/19 1517 Last Taken: Unknown Dose on Unknown Date & Time Last Action: Last Taken Edited on 01/16/192234 by LUIS HADDAD Calcium Carbonate (Tums) 200 Mg Tab.chew, 200 MG PO PRN Q4HRS PRN for INDIGESTION, (Reported) Entered as Reported by: KRUNAL ZEPEDA RN on 12/22/18 2348 Last Taken: Unknown Dose on Unknown Date & Time Last Action: Last Taken Edited on 01/16/192234 by LUIS HADDAD Hydrocodone/Acetaminophen (Hydrocodone-Acetamin 5-325 mg) 1 Each Tablet, 1 EACH PO PRN Q6HRS PRN for PAIN, #30 Ref 0 (Reported) Entered as Reported by: MARIO BUCIO on 12/18/18 1320 Last Taken: Unknown Dose on 01/15/19 Last Action: Last Taken Edited on 01/16/192234 by LUIS HADDAD Zolpidem Tartrate (Zolpidem Tartrate) 5 Mg Tablet, 1 TAB PO QHS PRN for sleep, #30 Ref 1 Prescribed by: SUGAR BEAL on 12/03/18 1517 Last Taken: Unknown Dose on 01/15/19 Last Action: Last Taken Edited on 01/16/192234 by ANDRAE ANGELA MD Jan 17, 2019 14:10
[2019-01-17 15:00] VITALS: BP 130/67
--- NOTE | 2019-01-17 15:21 | PDOC2 ---
CONSULT Date of Consult Date of Consult DATE: 01/17/19 TIME: 15:14 Reason for Consult Reason for Consult: ESRD, Severe non compliance Source Source: Chart review, Patient History of Present Illness Reason for Visit: MR. Goel, is a 53 year old admit for chest pressure and shortness of breath. He has new orthopnea and could not breathe well He is ESRD and had missed HD for a week after his time was changed and his transportation was not notified- he has the same excuse eve time. As per INSEAM LEVELER - he told the [facility] Unit that he is not going to come as he is recieving Abx for his foot and foot is bleeding Past Medical History Cardiovascular: AFIB, CAD, CHF, HTN, DC, Hyperlipidemia, Other Pulmonary: COPD CENTRAL NERVOUS SYSTEM: Dementia, Periperal neuropathy, Seizure, TIA GI: Diverticulosis, Other Heme/Onc: Anemia NOS Hepatobiliary: No pertinent hx Psych: Anxiety, Depression Musculoskeletal: Osteoarthritis Rheumatologic: Rheumatoid arthritis Infectious disease: No pertinent hx Renal/: Chronic renal failure Endocrine: Diabetes, Hypothyroidism, Hyperparathyroidism Past Surgical History Past Surgical History: Cataract Removal, Total knee replacement, Other Family History Family History: Diabetes, Hypertension Social History Social History: Parent No ALCOHOL: none Drugs: None Lives: with Family Current Problem List Problem List Problems Medical Problems: (1) Dyspnea Status: Acute (2) Hypertensive urgency Status: Acute Current Medications Current Medications Current Medications Albuterol/ Ipratropium (Duoneb) 3 ml 1X ONCE NEB Last administered on 01/16/19at 13:38; Start 01/16/19 at 13:15; Stop 01/16/19 at 13:17; Status DC Albuterol Sulfate (Ventolin Neb Soln) 10 mg 1X ONCE CONT NEB Last administered on 01/16/19at 14:57; Start 01/16/19 at 14:15; Stop 01/16/19 at 14:16; Status DC Sodium Chloride 1,000 ml @ 1,000 mls/hr Q1H PRN IV hypotension; Start 01/16/19 at 16:55; Stop 01/16/19 at 22:54; Status DC Sodium Chloride 1,000 ml @ 400 mls/hr Q2H30M PRN IV PATENCY; Start 01/16/19 at 16:55; Stop 01/17/19 at 04:54; Status DC Info (PHARMACY MONITORING -- do not chart) 1 each PRN DAILY PRN MC SEE COMMENTS; Start 01/16/19 at 17:00; Stop 01/17/19 at 14:06; Status DC Info (PHARMACY MONITORING -- do not chart) 1 each PRN DAILY PRN MC SEE COMMENTS; Start 01/16/19 at 17:00 Acetaminophen (Tylenol) 650 mg PRN Q6HRS PRN PO FEVER; Start 01/16/19 at 22:00 Aspirin (Children'S Aspirin) 81 mg DAILY PO Last administered on 01/17/19at 09:07; Start 01/17/19 at 09:00 Calcium Carbonate/ Glycine (Oscal) 500 mg BID PO Last administered on 01/17/19at 09:07; Start 01/17/19 at 09:00 Calcium Carbonate/ Glycine (Tums) 500 mg PRN Q4HRS PRN PO INDIGESTION; Start 01/16/19 at 22:00 Carvedilol (Coreg) 3.125 mg BIDWMEALS PO Last administered on 01/17/19at 09:07; Start 01/17/19 at 08:00 Famotidine (Pepcid) 20 mg HS PO Last administered on 01/16/19at 22:49; Start 01/16/19 at 22:00 Acetaminophen/ Hydrocodone Bitart (Lortab 5/325) 1 tab PRN Q6HRS PRN PO MODERATE PAIN Last administered on 01/17/19at 06:09; Start 01/16/19 at 22:00 Lactobacillus Rhamnosus (Culturelle) 1 cap BID PO Last administered on 01/17/19at 09:07; Start 01/16/19 at 22:00 Levothyroxine Sodium (Synthroid) 175 mcg DAILY06 PO Last administered on 01/17/19 06:09; Start 01/17/19 at 06:00 Linagliptin (Tradjenta) 5 mg DAILY PO Last administered on 01/17/19at 09:07; Start 01/17/19 at 09:00 Zolpidem Tartrate (Ambien) 5 mg PRN QHS PRN PO sleep Last administered on 01/16/19at 22:48; Start 01/16/19 at 22:00 Non-Formulary Medication (Albuterol Sulfate (Ventolin Hfa Inhaler)) 1 puff Q6HRS PRN INH SHORTNESS OF BREATH; Start 01/16/19 at 22:00; Status UNV Atorvastatin Calcium (Lipitor) 40 mg QHS PO Last administered on 01/16/19at 22:4 9; Start 01/16/19 at 22:00 Diphenhydramine HCl (Benadryl) 50 mg PRN DAILY PRN PO ITCHING; Start 01/16/19 at 22:00 Non-Formulary Medication (Fluticasone Propionate (Flovent 110MCG Hfa)) 2 puff BID IH ; Start 01/17/19 at 09:00; Status UNV Levetiracetam (Keppra) 100 mg BID PO ; Start 01/16/19 at 22:00; Stop 01/16/19 at 22:41; Status DC Magnesium Oxide (Magnesium Oxide) 400 mg DAILY PO Last administered on 01/17/19at 09:07; Start 01/17/19 at 09:00 Non-Formulary Medication (Meropenem (Merrem)) 500 mg DAILY IV ; Start 01/17/19 at 09:00; Status UNV Pramipexole Dihydrochloride (miraPEX) 0.25 mg DAILY PO Last administered on 01/17/19at 09:07; Start 01/17/19 at 09:00 Meropenem 500 mg/ Sodium Chloride 50 ml @ 100 mls/hr DAILY IV Last administered on 01/17/19at 09:08; Start 01/17/19 at 09:00 Albuterol Sulfate (Ventolin Neb Soln) 2.5 mg PRN Q6HRS PRN NEB SHORTNESS OF BREATH; Start 01/16/19 at 22:15 Budesonide (Pulmicort) 0.5 mg RTBID NEB Last administered on 01/17/19at 06:46; Start 01/17/19 at 08:00 Levetiracetam (Keppra) 1,000 mg BID PO Last administered on 01/17/19at 09:07; Start 01/16/19 at 23:00 Ondansetron HCl (Zofran) 4 mg PRN Q6HRS PRN IV NAUSEA/VOMITING; Start 01/17/19 at 13:00 Active Scripts Active Culturelle (Lactobacillus Rhamnosus Gg) 1 Each Cap.sprink 1 Cap PO BID 14 Days Isosorbide Mononitrate Er (Isosorbide Mononitrate) 30 Mg Tab.er.24h 30 Mg PO DAILY 30 Days Coreg (Carvedilol) 3.125 Mg Tablet 3.125 Mg PO BIDWMEALS Lipitor (Atorvastatin Calcium) 80 Mg Tablet 40 Mg PO HS Flovent 110MCG Hfa (Fluticasone Propionate) 12 Gm Aer.w.adap 2 Puff IH BID Zolpidem Tartrate 5 Mg Tablet 1 Tab PO QHS PRN Mirapex (Pramipexole Di-Hcl) 0.25 Mg Tablet 1 Tab PO DAILY Famotidine 20 Mg Tablet 20 Mg PO HS Ventolin Hfa Inhaler (Albuterol Sulfate) 18 Gm Hfa.aer.ad 1 Puff INH Q6HRS PRN Levothyroxine Sodium 175 Mcg Tablet 175 Mcg PO DAILYAC Merrem (Meropenem) 500 Mg Vial 500 Mg IV DAILY Reported Cetirizine Hcl 10 Mg Tablet 1 Tab PO DAILY Clopidogrel (Clopidogrel Bisulfate) 75 Mg Tablet 1 Tab PO DAILY Magnesium (Magnesium Oxide) 400 Mg Capsule 250 Mg PO BID Tums (Calcium Carbonate) 200 Mg Tab.chew 200 Mg PO PRN Q4HRS PRN Hydrocodone-Acetamin 5-325 mg (Hydrocodone/Acetaminophen) 1 Each Tablet 1 Each PO PRN Q6HRS PRN Aspirin 81 Mg Tab.chew 1 Tab PO DAILY Tradjenta (Linagliptin) 5 Mg Tablet 5 Mg PO DAILY Diphenhydramine Hcl 50 Mg Capsule 1 Cap PO PRN Calcium Carbonate 500 Mg Tablet 500 Mg PO BID Keppra (Levetiracetam) 1,000 Mg Tablet 1 Tab PO BID Tylenol (Acetaminophen) 325 Mg Tablet 650 Mg PO PRN Q6HRS PRN Allergies Allergies: Coded Allergies: iodine (Verified Allergy, Severe, THROAT SWELLING, 01/16/19) lisinopril (Verified Allergy, Severe, 01/16/19) Fish Containing Products (Verified Allergy, Intermediate, 01/16/19) Penicillins (Verified Allergy, Intermediate, SEE COMMENT, 01/16/19) Tolerates meropenem and Cephalosporins piperacillin (Verified Allergy, Intermediate, Hives, 01/16/19) Tolerates meropenem tazobactam (Verified Allergy, Intermediate, 01/16/19) ROS Review of System Per HPI Physical Exam Physical Exam General: Alert, Cooperative, mild distress HEENT: PERRLA, EOMI, Mucous membr. moist/pink Lungs: Clear to auscultation Heart: S1S2 Abdomen: Normal bowel sounds, Soft Extremities: No edema, Normal pulses Skin: No rashes Neuro: Strength at 5/5 X4 ext, Normal tone, Cranial nerves 3-12 NL Psych/Mental Status: Mental status NL, Mood NL Vital Signs Vital Signs Date Time Temp Pulse Resp B/P (MAP) Pulse Ox O2 Delivery O2 Flow Rate FiO2 01/17/19 11:00 98.6 92 20 133/60 (84) 97 Room Air 98.6 Assessment & Plan ESRD TTS @ [facility] Severe Non compliance Dialysed Yesterday per Orders No indication today , tomorrow at OP Unit Fluid overload, acute diastolic CHF - non compliance Obesity, PVD, right leg wound chronic Cellutiis RLE with wound vac HTN Labs Labs Laboratory Tests Test 01/16/19 13:25 01/16/19 20:51 01/17/19 07:21 01/17/19 11:22 White Blood Count 7.1 x10^3/uL (4.0-11.0) Red Blood Count 2.88 x10^6/uL (4.30-5.70) Hemoglobin 8.4 g/dL (13.0-17.5) Hematocrit 25.6 % (39.0-53.0) Mean Corpuscular Volume 89 fL (79-100) Mean Corpuscular Hemoglobin 29 pg (25-35) Mean Corpuscular Hemoglobin Concent 33 g/dL (31-37) Red Cell Distribution Width 15.8 % (11.5-14.5) Platelet Count 184 x10^3/uL (140-400) Neutrophils (%) (Auto) 68 % (31-73) Lymphocytes (%) (Auto) 14 % (24-48) Monocytes (%) (Auto) 10 % (0-9) Eosinophils (%) (Auto) 5 % (0-3) Basophils (%) (Auto) 2 % (0-3) Neutrophils # (Auto) 4.8 x10^3uL (1.8-7.7) Lymphocytes # (Auto) 1.0 x10^3/uL (1.0-4.8) Monocytes # (Auto) 0.7 x10^3/uL (0.0-1.1) Eosinophils # (Auto) 0.4 x10^3/uL (0.0-0.7) Basophils # (Auto) 0.1 x10^3/uL (0.0-0.2) Prothrombin Time 14.8 SEC (11.7-14.0) Prothromb Time International Ratio 1.2 (0.8-1.1) Activated Partial Thromboplast Time 36 SEC (24-38) Sodium Level 140 mmol/L (136-145) Potassium Level 5.7 mmol/L (3.5-5.1) Chloride Level 107 mmol/L (98-107) Carbon Dioxide Level 21 mmol/L (21-32) Anion Gap 12 (6-14) Blood Urea Nitrogen 61 mg/dL (8-26) Creatinine 5.8 mg/dL (0.7-1.3) Estimated GFR (Cockcroft-Gault) 12.4 BUN/Creatinine Ratio 11 (6-20) Glucose Level 124 mg/dL (70-99) Calcium Level 8.9 mg/dL (8.5-10.1) Total Bilirubin 0.7 mg/dL (0.2-1.0) Aspartate Amino Transf (AST/SGOT) 18 U/L (15-37) Alanine Aminotransferase (ALT/SGPT) 13 U/L (16-63) Alkaline Phosphatase 65 U/L (46-116) Troponin I Quantitative 0.029 ng/mL (0.000-0.055) FI-Otx-D-Type Natriuretic Peptide 29741 pg/mL (0-124) Total Protein 7.5 g/dL (6.4-8.2) Albumin 2.8 g/dL (3.4-5.0) Albumin/Globulin Ratio 0.6 (1.0-1.7) Glucose (Fingerstick) 77 mg/dL (70-99) 249 mg/dL (70-99) 170 mg/dL (70-99) Laboratory Tests Test 01/16/19 20:51 01/17/19 07:21 01/17/19 11:22 Glucose (Fingerstick) 77 mg/dL (70-99) 249 mg/dL (70-99) 170 mg/dL (70-99) Review All relevant outside records, renal labs, imaging studies, telemetry/EKG's were reviewed. MINA RICHARDSON MD Jan 17, 2019 15:21
--- NOTE | 2019-01-17 16:44 | NUR ---
Reviewed discharge instructions with pt. Pt is [facility]. Pt has follow up appointment with [facility] care center on sunday. Verbalized discharge instructions. Transportation provided by [email or web address]. Transported by wheelchair van.
== END 2019-01-17 16:44 | disposition home or self-care (01) ==
LOC: ER 12:44 → 6 SOUTH 14:35
PROVIDERS: ADMIT Internal Medicine; ATTEND Internal Medicine
DX: E87.70 Fluid overload, unspecified (principal); I16.0 Hypertensive urgency; R06.00 Dyspnea, unspecified; I25.10 Atherosclerotic heart disease of native coronary artery without angina pectoris; J44.9 Chronic obstructive pulmonary disease, unspecified; F41.9 Anxiety disorder, unspecified; F32.9 Major depressive disorder, single episode, unspecified; E03.9 Hypothyroidism, unspecified; E21.3 Hyperparathyroidism, unspecified; M06.9 Rheumatoid arthritis, unspecified; E78.5 Hyperlipidemia, unspecified; I48.91 Unspecified atrial fibrillation; E66.9 Obesity, unspecified; G25.81 Restless legs syndrome; M19.90 Unspecified osteoarthritis, unspecified site; E11.22 Type 2 diabetes mellitus with diabetic chronic kidney disease; R53.1 Weakness; R53.81 Other malaise; K21.9 Gastro-esophageal reflux disease without esophagitis; F03.90 Unspecified dementia, unspecified severity, without behavioral disturbance, psychotic disturbance, mood disturbance, and anxiety; I13.2 Hypertensive heart and chronic kidney disease with heart failure and with stage 5 chronic kidney disease, or end stage renal disease; I50.31 Acute diastolic (congestive) heart failure; N18.6 End stage renal disease; E11.51 Type 2 diabetes mellitus with diabetic peripheral angiopathy without gangrene; Z95.5 Presence of coronary angioplasty implant and graft; Z82.49 Family history of ischemic heart disease and other diseases of the circulatory system; Z99.2 Dependence on renal dialysis; Z83.3 Family history of diabetes mellitus; Z68.36 Body mass index [BMI] 36.0-36.9, adult; Z91.19 Patient's noncompliance with other medical treatment and regimen; Z79.84 Long term (current) use of oral hypoglycemic drugs; Z79.02 Long term (current) use of antithrombotics/antiplatelets; Z86.73 Personal history of transient ischemic attack (TIA), and cerebral infarction without residual deficits; Z79.899 Other long term (current) drug therapy; Z96.659 Presence of unspecified artificial knee joint
CPT/HCPCS: 36415; 71045; 80053; 82962; 83880; 84484; 85025; 85610; 85730; 93005; 94640; 94644; 96374; 99284; G0378; J2185; J7613; J7620; J7626; G0379

== ENCOUNTER 2019-03-24 12:30 | Inpatient (IN) | payer OTHER, MEDICAID ==
[~2019-03-24] VITALS: Ht 198.1 cm; Wt 145.1 kg
[~2019-03-24 12:30] MED LIST changes: +LINE600T PO; +METR500T PO
--- NOTE | 2019-03-24 13:08 | PHYS DOC ---
Past Medical History Past Medical History: Asthma, CVA, Diabetes-Type II, Hypertension, CT, Pneumonia, Renal Failure, Seizure Additional Past Medical Histor: 8 MIs, 8 CVAs, multiple stents Past Surgical History: Angioplasty, Other Additional Past Surgical Histo: HD SHUNT,TOE AMPUTATION,RIGHT ARM SX,RIGHT ARM FX,SCROTAL SX,HEART STENT Alcohol Use: None Drug Use: None Adult General Chief Complaint Chief Complaint: DYSPNEA/RESPIRATOY DISTRESS HPI HPI Patient is a 53 year old male with a history of CHF, diabetes, Left BKA/right partial foot amputation, and end-stage renal disease presents to ED complaining of shortness of breath x 2 weeks. States it has been worsening over the last week. States he has not been to dialysis in a month. Has been unable to get a ride to dialysis. States he got a ride last started Sunday but they had canceled him already and he could not get dialysis completed. Denies chest pain, abdominal pain, diarrhea, fever, cough, back pain, neck pain or headache. Review of Systems Review of Systems Constitutional: Denies fever or chills [] Eyes: Denies change in visual acuity, redness, or eye pain [] HENT: Denies nasal congestion or sore throat [] Respiratory: Complains of shortness of breath. Denies cough. Cardiovascular: No additional information not addressed in HPI [] GI: Denies abdominal pain, nausea, vomiting, bloody stools or diarrhea [] : Denies dysuria or hematuria [] Musculoskeletal: Denies back pain or joint pain [] Integument: Denies rash or skin lesions [] Neurologic: Denies headache, focal weakness or sensory changes [] All other systems were reviewed and found to be within normal limits, except as documented in this note. Current Medications Current Medications Current Medications Medications (Trade) Dose Ordered Sig/[place] Start Time Stop Time Status Last Admin Dose Admin Albuterol/ Ipratropium (Duoneb) 3 ml 1X ONCE 03/24/19 15:15 03/24/19 15:03 DC Fentanyl Citrate (Fentanyl 2ml Vial) 50 mcg PRN Q1HR PRN 03/24/19 16:00 03/25/19 15:59 Furosemide (Lasix) 40 mg 1X STAT 03/24/19 16:06 03/24/19 16:07 DC 03/24/19 16:06 40 MG Ondansetron HCl (Zofran) 4 mg PRN Q8HRS PRN 03/24/19 16:00 03/25/19 15:59 Allergies Allergies Allergies Coded Allergies Type Severity Reaction Last Updated Verified iodine Allergy Severe THROAT SWELLING 01/16/19 Yes lisinopril Allergy Severe 01/16/19 Yes Fish Containing Products Allergy Intermediate 01/16/19 Yes Penicillins Allergy Intermediate SEE COMMENT 01/16/19 Yes piperacillin Allergy Intermediate Hives 01/16/19 Yes tazobactam Allergy Intermediate 01/16/19 Yes I S O L A T I O N *CONTACT* Allergy Unknown 02/26/19 Yes Physical Exam Physical Exam Constitutional: Well developed, well nourished, no acute distress, non-toxic appearance. [] HENT: Normocephalic, atraumatic Eyes: PERRLA, EOMI, conjunctiva normal, no discharge. [] Neck: Normal range of motion, no tenderness, supple, no stridor. [] Cardiovascular:Heart rate regular rhythm, no murmur [] Lungs & Thorax: Wheezing and crackles bilaterally. Abdomen: Bowel sounds normal, soft, no tenderness, no masses, no pulsatile masses. [] Skin: Warm, dry, no erythema, no rash. [] Back: No tenderness, no CVA tenderness. [] Extremities: No tenderness, no cyanosis, no clubbing, ROM intact, no edema. [] Neurologic: Alert and oriented X 3, normal motor function, normal sensory function, no focal deficits noted. [] Psychologic: Affect normal, judgement normal, mood normal. [] Current Patient Data Vital Signs Vital Signs Date Time Temp Pulse Resp B/P (MAP) Pulse Ox O2 Delivery O2 Flow Rate FiO2 03/24/19 15:34 87 20 174/86 (115) 99 Room Air 03/24/19 12:30 98.6 98.6 Lab Values Laboratory Tests Test 03/24/19 13:16 03/24/19 15:10 White Blood Count 4.7 x10^3/uL (4.0-11.0) Red Blood Count 2.86 x10^6/uL (4.30-5.70) L Hemoglobin 8.3 g/dL (13.0-17.5) L Hematocrit 26.3 % (39.0-53.0) L Mean Corpuscular Volume 92 fL (79-100) Mean Corpuscular Hemoglobin 29 pg (25-35) Mean Corpuscular Hemoglobin Concent 32 g/dL (31-37) Red Cell Distribution Width 17.9 % (11.5-14.5) H Platelet Count 157 x10^3/uL (140-400) Neutrophils (%) (Auto) 67 % (31-73) Lymphocytes (%) (Auto) 17 % (24-48) L Monocytes (%) (Auto) 12 % (0-9) H Eosinophils (%) (Auto) 5 % (0-3) H Basophils (%) (Auto) 0 % (0-3) Neutrophils # (Auto) 3.1 x10^3/uL (1.8-7.7) Lymphocytes # (Auto) 0.8 x10^3/uL (1.0-4.8) L Monocytes # (Auto) 0.6 x10^3/uL (0.0-1.1) Eosinophils # (Auto) 0.2 x10^3/uL (0.0-0.7) Basophils # (Auto) 0.0 x10^3/uL (0.0-0.2) Sodium Level 143 mmol/L (136-145) Potassium Level 5.9 mmol/L (3.5-5.1) H Chloride Level 114 mmol/L (98-107) H Carbon Dioxide Level 21 mmol/L (21-32) Anion Gap 8 (6-14) Blood Urea Nitrogen 58 mg/dL (8-26) H Creatinine 5.2 mg/dL (0.7-1.3) H Estimated GFR (Cockcroft-Gault) 14.1 BUN/Creatinine Ratio 11 (6-20) Glucose Level 101 mg/dL (70-99) H Calcium Level 8.9 mg/dL (8.5-10.1) Total Bilirubin 0.6 mg/dL (0.2-1.0) Aspartate Amino Transferase (AST) 25 U/L (15-37) Alanine Aminotransferase (ALT) 25 U/L (16-63) Alkaline Phosphatase 77 U/L (46-116) Troponin I Quantitative 0.033 ng/mL (0.000-0.055) LC-Duc-K-Type Natriuretic Peptide > 15721 pg/mL (0-124) H Total Protein 7.1 g/dL (6.4-8.2) Albumin 2.6 g/dL (3.4-5.0) L Albumin/Globulin Ratio 0.6 (1.0-1.7) L Urine Collection Type Unknown Urine Color Yellow Urine Clarity Clear Urine pH 6.0 Urine Specific [place] 1.020 Urine Protein >=300 mg/dL (NEG-TRACE) Urine Glucose (UA) 100 mg/dL (NEG) Urine Ketones (Stick) Negative mg/dL (NEG) Urine Blood Trace (NEG) Urine Nitrite Negative (NEG) Urine Bilirubin Negative (NEG) Urine Urobilinogen Dipstick 1.0 mg/dL (0.2 mg/dL) Urine Leukocyte Esterase Negative (NEG) Urine RBC 1-2 /HPF (0-2) Urine WBC Occ /HPF (0-4) Urine Squamous Epithelial Cells Occ /LPF Urine Bacteria Few /HPF (0-FEW) Urine Hyaline Casts Few /HPF Urine Mucus Slight /LPF Laboratory Tests 03/24/19 13:16 Laboratory Tests 03/24/19 13:16 EKG EKG [] Radiology/Procedures Radiology/Procedures []PROCEDURE: PORTABLE CHEST 1V EXAM: AP View of the chest DATE: 03/24/2019 1:02 PM INDICATION: Shortness of breath, CHF COMPARISON: 02/21/2019 FINDINGS: Mild cardiomegaly. Mediastinal and hilar contours are stable. No focal parenchymal airspace opacity. No pleural effusion or pneumothorax. IMPRESSION: 1. No evidence for acute cardiopulmonary process 2. Mild cardiomegaly Course & Med Decision Making Course & Med Decision Making Pertinent Labs and Imaging studies reviewed. (See chart for details) Noncompliant dialysis patient presents to the ED complaining of shortness of breath. Patient given a breathing treatment and lasix in the ED. Patient well appearing in the ED. Creat of 5.2 and K+ of 5.9 (slightly hemolyzed). Patient will need to be set up for dialysis. Discussed case with hospitalist, Dr. Franco. Agrees to admission and further management of patient. Patient stable for admission. Dragon Disclaimer Dragon Disclaimer This electronic medical record was generated, in whole or in part, using a voice recognition dictation system. Departure Departure Impression: Primary Impression: CHF, acute on chronic Additional Impression: ESRD (end stage renal disease) Disposition: ADMITTED INPATIENT Admitting Physician: BARBARA Condition: STABLE Referrals: MARIA ISABEL LOPEZ DO (PCP) Problem Qualifiers BAILEY MITCHELL Mar 24, 2019 13:08
[2019-03-24 13:27] LABS: BASO % 0 % (0-3); EOS # 0.2 x10^3/uL (0.0-0.7); EOS % 5 % (0-3); HEMATOCRIT 26.3 % (39.0-53.0); HEMOGLOBIN 8.3 g/dL (13.0-17.5); LYMPH # 0.8 x10^3/uL (1.0-4.8); LYMPH % 17 % (24-48); MEAN CORPUSCULAR HEMOGLOBIN 29 pg (25-35); MEAN CORPUSCULAR HGB CONC 32 g/dL (31-37); MEAN CORPUSCULAR VOLUME 92 fL (79-100); MONO # 0.6 x10^3/uL (0.0-1.1); MONO % 12 % (0-9); NEUT # 3.1 x10^3/uL (1.8-7.7); NEUT % 67 % (31-73); PLATELET COUNT 157 x10^3/uL (140-400); RED BLOOD COUNT 2.86 x10^6/uL (4.30-5.70); RED CELL DISTRIBUTION WIDTH 17.9 % (11.5-14.5); WHITE BLOOD COUNT 4.7 x10^3/uL (4.0-11.0)
--- NOTE | 2019-03-24 13:27 | EKG ---
[facility] [address] [place] [address] Test Date: 2019-03-24 Test Time: 13:11:15 Pat Name: BHAVYA WILKES Department: Room: Gender: Adhesive Primer: : 1965 Requested By: BAILEY MITCHELL Order Number: [id number] Reading MD: Measurements Intervals [place] Rate: 84 P: 43 HI: 174 QRS: -41 QRSD: 94 T: 39 QT: 386 QTc: 460 Interpretive Statements SINUS RHYTHM ABNORMAL LEFT AXIS DEVIATION R-S TRANSITION ZONE IN V LEADS DISPLACED TO THE LEFT QRS(T) CONTOUR ABNORMALITY CONSIDER INFERIOR INFARCT ABNORMAL ECG RI6.01 No previous ECG available for comparison
[2019-03-24 13:36] LABS: CALCIUM 8.9 mg/dL (8.5-10.1); CREATININE 5.2 mg/dL (0.7-1.3); GFR 14.1
--- NOTE | 2019-03-24 13:36 | RAD ---
EXAM: AP View of the chest DATE: 03/24/2019 1:02 PM INDICATION: Shortness of breath, CHF COMPARISON: 02/21/2019 FINDINGS: Mild cardiomegaly. Mediastinal and hilar contours are stable. No focal parenchymal airspace opacity. No pleural effusion or pneumothorax. IMPRESSION: 1. No evidence for acute cardiopulmonary process 2. Mild cardiomegaly Electronically signed by: Raymond Givens MD (03/24/2019 1:34 PM) [facility]
[2019-03-24 13:41] LABS: ALBUMIN 2.6 g/dL (3.4-5.0); ALBUMIN/GLOBULIN RATIO 0.6 (1.0-1.7); TOTAL BILIRUBIN 0.6 mg/dL (0.2-1.0); TOTAL PROTEIN 7.1 g/dL (6.4-8.2)
[2019-03-24 13:44] LABS: POTASSIUM 5.9 mmol/L (3.5-5.1)
[2019-03-24] MEDS ORDERED: IPRATRPIUM/ALBUTEROL 0.5/2.5MG 3 ML NEBU. NEB ONE ×2 (13:45→15:15)
[2019-03-24 15:32] LABS: BILIRUBIN,URINE NEGATIVE (NEG); CLARITY,URINE CLEAR; COLOR,URINE YELLOW; NITRITE,URINE NEGATIVE (NEG); PROTEIN,URINE >=300 mg/dL (NEG-TRACE)
[2019-03-24] MEDS ORDERED: fentaNYL PF VIAL 100 MCG/2 ML VIAL IV PRN (16:00)
[2019-03-24] MEDS ORDERED: ONDANSETRON PF 4 MG/2 ML VIAL. IV PRN (16:00)
[2019-03-24 16:01] LABS: BACTERIA,URINE FEW /HPF (0-FEW); HYALINE CASTS, URINE FEW /HPF; SQUAMOUS EPITHELIAL CELL,UR OCC /LPF; WBC,URINE OCC /HPF (0-4)
[2019-03-24] MEDS ORDERED: FUROSEMIDE 100 MG/10 ML VIAL. ONE (16:03)
[2019-03-24] MEDS ORDERED: FUROSEMIDE 40 MG/4 ML VIAL. IVP STA (16:06)
[2019-03-24] MEDS ORDERED: ACETAMINOPHEN 325 MG TABLET. PO PRN (17:00)
[2019-03-24] MEDS ORDERED: NON FORMULARY ITEM (Albuterol Sulfate (Ventolin Hfa Inhaler) 1 PUFF) INH PRN (17:00)
[2019-03-24] MEDS ORDERED: CALCIUM CARBONATE 500 MG TAB.CHEW PO PRN (17:00)
[2019-03-24] MEDS ORDERED: ZOLPIDEM 5 MG TABLET. PO PRN (17:00)
[2019-03-24] MEDS ORDERED: HYDROcodone/APAP 5/325MG 1 TAB TABLET PO PRN (17:00)
--- NOTE | 2019-03-24 17:01 | PDOC1 ---
History and Physical Date of Admission Date of Admission DATE: 03/24/19 TIME: 16:57 Source Source: Chart review, Patient History of Present Illness History of Present Illness Aquiles is a 53 year old male admit for worsneing shortness of breath is very well known here for mult infections, osteo, wound infections with Dm2, is s/p Left BKA/right partial foot amputation, and end-stage renal disease. he has worsening dyspnea for over a week, new orthopenea. he had now gone to dialysis for a month, then went to day, and they had given his chair time away. He has been making more urine, and he says that [facility] dropped him because his renal fxn was better he reports compliance with other meds Past Medical History Cardiovascular: AFIB, CAD, CHF, HTN, [place], Hyperlipidemia, Other Pulmonary: COPD CENTRAL NERVOUS SYSTEM: Dementia, Periperal neuropathy, Seizure, TIA GI: Diverticulosis, Other Heme/Onc: Anemia NOS Hepatobiliary: No pertinent hx Psych: Anxiety, Depression Musculoskeletal: Osteoarthritis Rheumatologic: Rheumatoid arthritis Infectious disease: No pertinent hx Renal/: Chronic renal failure Endocrine: Diabetes, Hypothyroidism, Hyperparathyroidism Past Surgical History Past Surgical History: Cataract Removal, Total knee replacement, Other Family History Family History: Diabetes, Hypertension Family History: Parent Social History ALCOHOL: none Drugs: None Current Problem List Problem List Problems Medical Problems: (1) CHF, acute on chronic Status: Acute Current Medications Current Medications Current Medications Albuterol/ Ipratropium (Duoneb) 3 ml 1X ONCE NEB Last administered on 03/24/19at 14:10; Start 03/24/19 at 13:45; Stop 03/24/19 at 13:46; Status DC Albuterol/ Ipratropium (Duoneb) 3 ml 1X ONCE NEB ; Start 03/24/19 at 15:15; Stop 03/24/19 at 15:03; Status DC Furosemide (Lasix) 40 mg DAILY IVP ; Start 03/25/19 at 09:00; Stop 03/24/19 at 16:05; Status DC Ondansetron HCl (Zofran) 4 mg PRN Q8HRS PRN IV NAUSEA/VOMITING; Start 03/24/19 at 16:00; Stop 03/25/19 at 15:59 Fentanyl Citrate (Fentanyl 2ml Vial) 50 mcg PRN Q1HR PRN IV PAIN; Start 03/24/19 at 16:00; Stop 03/25/19 at 15:59 Furosemide (Lasix) 100 mg STK-MED ONCE .ROUTE ; Start 03/24/19 at 16:03; Stop 03/24/19 at 16:03; Status DC Furosemide (Lasix) 40 mg 1X STAT IVP Last administered on 03/24/19at 16:06; Start 03/24/19 at 16:06; Stop 03/24/19 at 16:07; Status DC Active Scripts Active Flagyl (Metronidazole) 500 Mg Tablet 500 Mg PO Q12HR Zyvox (Linezolid) 600 Mg Tablet 600 Mg PO BID Cipro (Ciprofloxacin Hcl) 250 Mg Tablet 500 Mg PO DAILY 7 Days Hydrocodone-Acetamin 5-325 mg (Hydrocodone/Acetaminophen) 1 Each Tablet 1 Each PO PRN Q6HRS PRN Culturelle (Lactobacillus Rhamnosus Gg) 1 Each Cap.sprink 1 Cap PO BID 14 Days Isosorbide Mononitrate Er (Isosorbide Mononitrate) 30 Mg Tab.er.24h 30 Mg PO DAILY 30 Days Coreg (Carvedilol) 3.125 Mg Tablet 3.125 Mg PO BIDWMEALS Flovent 110MCG Hfa (Fluticasone Propionate) 12 Gm Aer.w.adap 2 Puff IH BID Zolpidem Tartrate 5 Mg Tablet 1 Tab PO QHS PRN Mirapex (Pramipexole Di-Hcl) 0.25 Mg Tablet 1 Tab PO DAILY Famotidine 20 Mg Tablet 20 Mg PO HS Ventolin Hfa Inhaler (Albuterol Sulfate) 18 Gm Hfa.aer.ad 1 Puff INH Q6HRS PRN Levothyroxine Sodium 175 Mcg Tablet 175 Mcg PO DAILYAC Reported Atorvastatin Calcium 80 Mg Tablet 80 Mg PO HS Cetirizine Hcl 10 Mg Tablet 1 Tab PO DAILY Clopidogrel (Clopidogrel Bisulfate) 75 Mg Tablet 1 Tab PO DAILY Magnesium (Magnesium Oxide) 400 Mg Capsule 250 Mg PO BID Tums (Calcium Carbonate) 200 Mg Tab.chew 200 Mg PO PRN Q4HRS PRN Aspirin 81 Mg Tab.chew 1 Tab PO DAILY Tradjenta (Linagliptin) 5 Mg Tablet 5 Mg PO DAILY Diphenhydramine Hcl 50 Mg Capsule 1 Cap PO PRN Calcium Carbonate 500 Mg Tablet 500 Mg PO BID Keppra (Levetiracetam) 1,000 Mg Tablet 1 Tab PO BID Tylenol (Acetaminophen) 325 Mg Tablet 650 Mg PO PRN Q6HRS PRN Allergies Allergies: Coded Allergies: iodine (Verified Allergy, Severe, THROAT SWELLING, 01/16/19) lisinopril (Verified Allergy, Severe, 01/16/19) Fish Containing Products (Verified Allergy, Intermediate, 01/16/19) Penicillins (Verified Allergy, Intermediate, SEE COMMENT, 01/16/19) Tolerates meropenem and Cephalosporins piperacillin (Verified Allergy, Intermediate, Hives, 01/16/19) Tolerates meropenem tazobactam (Verified Allergy, Intermediate, 01/16/19) I S O L A T I O N *CONTACT* (Verified Allergy, Unknown, 02/26/19) mrsa ROS General: YES: Fatigue, Malaise PSYCHOLOGICAL ROS: No: Anxiety, Behavioral Disorder, Concentration difficultie, Decreased libido, Depression, Disorientation, Hallucinations, Hostility, Irritablity, Memory difficulties, Mood Swings, Obsessive thoughts, Physical abuse, Sexual abuse, Sleep disturbances, Suicidal ideation, Other Eyes: No Blurry vision, No Decreased vision, No Double vision, No Dry eyes, No Excessive tearing, No Eye Pain, No Itchy Eyes, No Loss of vision, No Photophob ia, No Scotomata, No Uses contacts, No Uses glasses, No Other HEENT: No: Heacaches, Visual Changes, Hearing change, Nasal congestion, Nasal discharge, Oral lesions, Sinus pain, Sore Throat, Epistaxis, Sneezing, Snoring, Tinnitus, Vertigo, Vocal changes, Other Respiratory: YES: Orthopnea, Shortness of breath, SOB with excertion, Tachypnea ; No: Cough, Hemoptysis, Pleuritic Pain, Sputum Changes, Stridor, Wheezing, Other Cardiovascular: No Chest Pain, No Palpitations, No Orthopnea, No Paroxysmal Noc. Dyspnea, No Edema, No Lt Headedness, No Other Gastrointestinal: Yes Nausea Genitourinary: No Dysuria, No Frequency, No Incontinence, No Hematuria, No Retention, No Discharge, No Urgency, No Pain, No Flank Pain, No Other, No , No , No , No , No , No , No Musculoskeletal: No Gait Disturbance, No Joint Pain, No Joint Stiffness, No Joint Swelling, No Muscle Pain, No Muscular Weakness, No Pain In:, No Swelling In:, No Other Neurological: Yes Gait Disturbance; No Behavorial Changes, No Bowel/Bladder ControlChng, No Confusion, No Dizziness, No Headaches, No Impaired Coord/balance, No Memory Loss, No Numbness/Tingling, No Seizures, No Speech Problems, No Tremors, No Visual Changes, No Weakness, No Other Skin: Yes Dry Skin; No Eczema, No Hair Changes, No Lumps, No Mole Changes, No Mottling, No Nail Changes, No Pruritus, No Rash, No Skin Lesion Changes, No Other, No Acne Physical Exam General: Alert, Oriented X3, Cooperative, mild distress HEENT: Atraumatic Lungs: Clear to auscultation Abdomen: Normal bowel sounds, Soft Rectal Exam: not examined Extremities: No edema, Other (stump clear) Skin: No rashes, No breakdown, No significant lesion Neuro: Sensation intact Psych/Mental Status: Mental status NL Vitals Vitals Vital Signs Date Time Temp Pulse Resp B/P (MAP) Pulse Ox O2 Delivery O2 Flow Rate FiO2 03/24/19 15:34 87 20 174/86 (115) 99 Room Air 03/24/19 12:30 98.6 98.6 Labs Labs Laboratory Tests Test 03/24/19 13:16 03/24/19 15:10 White Blood Count 4.7 x10^3/uL (4.0-11.0) Red Blood Count 2.86 x10^6/uL (4.30-5.70) Hemoglobin 8.3 g/dL (13.0-17.5) Hematocrit 26.3 % (39.0-53.0) Mean Corpuscular Volume 92 fL (79-100) Mean Corpuscular Hemoglobin 29 pg (25-35) Mean Corpuscular Hemoglobin Concent 32 g/dL (31-37) Red Cell Distribution Width 17.9 % (11.5-14.5) Platelet Count 157 x10^3/uL (140-400) Neutrophils (%) (Auto) 67 % (31-73) Lymphocytes (%) (Auto) 17 % (24-48) Monocytes (%) (Auto) 12 % (0-9) Eosinophils (%) (Auto) 5 % (0-3) Basophils (%) (Auto) 0 % (0-3) Neutrophils # (Auto) 3.1 x10^3/uL (1.8-7.7) Lymphocytes # (Auto) 0.8 x10^3/uL (1.0-4.8) Monocytes # (Auto) 0.6 x10^3/uL (0.0-1.1) Eosinophils # (Auto) 0.2 x10^3/uL (0.0-0.7) Basophils # (Auto) 0.0 x10^3/uL (0.0-0.2) Sodium Level 143 mmol/L (136-145) Potassium Level 5.9 mmol/L (3.5-5.1) Chloride Level 114 mmol/L (98-107) Carbon Dioxide Level 21 mmol/L (21-32) Anion Gap 8 (6-14) Blood Urea Nitrogen 58 mg/dL (8-26) Creatinine 5.2 mg/dL (0.7-1.3) Estimated GFR (Cockcroft-Gault) 14.1 BUN/Creatinine Ratio 11 (6-20) Glucose Level 101 mg/dL (70-99) Calcium Level 8.9 mg/dL (8.5-10.1) Total Bilirubin 0.6 mg/dL (0.2-1.0) Aspartate Amino Transf (AST/SGOT) 25 U/L (15-37) Alanine Aminotransferase (ALT/SGPT) 25 U/L (16-63) Alkaline Phosphatase 77 U/L (46-116) Troponin I Quantitative 0.033 ng/mL (0.000-0.055) HL-Tbt-K-Type Natriuretic Peptide > 47563 pg/mL (0-124) Total Protein 7.1 g/dL (6.4-8.2) Albumin 2.6 g/dL (3.4-5.0) Albumin/Globulin Ratio 0.6 (1.0-1.7) Urine Collection Type Unknown Urine Color Yellow Urine Clarity Clear Urine pH 6.0 Urine Specific [place] 1.020 Urine Protein >=300 mg/dL (NEG-TRACE) Urine Glucose (UA) 100 mg/dL (NEG) Urine Ketones (Stick) Negative mg/dL (NEG) Urine Blood Trace (NEG) Urine Nitrite Negative (NEG) Urine Bilirubin Negative (NEG) Urine Urobilinogen Dipstick 1.0 mg/dL (0.2 mg/dL) Urine Leukocyte Esterase Negative (NEG) Urine RBC 1-2 /HPF (0-2) Urine WBC Occ /HPF (0-4) Urine Squamous Epithelial Cells Occ /LPF Urine Bacteria Few /HPF (0-FEW) Urine Hyaline Casts Few /HPF Urine Mucus Slight /LPF Laboratory Tests Test 03/24/19 13:16 03/24/19 15:10 White Blood Count 4.7 x10^3/uL (4.0-11.0) Red Blood Count 2.86 x10^6/uL (4.30-5.70) Hemoglobin 8.3 g/dL (13.0-17.5) Hematocrit 26.3 % (39.0-53.0) Mean Corpuscular Volume 92 fL (79-100) Mean Corpuscular Hemoglobin 29 pg (25-35) Mean Corpuscular Hemoglobin Concent 32 g/dL (31-37) Red Cell Distribution Width 17.9 % (11.5-14.5) Platelet Count 157 x10^3/uL (140-400) Neutrophils (%) (Auto) 67 % (31-73) Lymphocytes (%) (Auto) 17 % (24-48) Monocytes (%) (Auto) 12 % (0-9) Eosinophils (%) (Auto) 5 % (0-3) Basophils (%) (Auto) 0 % (0-3) Neutrophils # (Auto) 3.1 x10^3/uL (1.8-7.7) Lymphocytes # (Auto) 0.8 x10^3/uL (1.0-4.8) Monocytes # (Auto) 0.6 x10^3/uL (0.0-1.1) Eosinophils # (Auto) 0.2 x10^3/uL (0.0-0.7) Basophils # (Auto) 0.0 x10^3/uL (0.0-0.2) Sodium Level 143 mmol/L (136-145) Potassium Level 5.9 mmol/L (3.5-5.1) Chloride Level 114 mmol/L (98-107) Carbon Dioxide Level 21 mmol/L (21-32) Anion Gap 8 (6-14) Blood Urea Nitrogen 58 mg/dL (8-26) Creatinine 5.2 mg/dL (0.7-1.3) Estimated GFR (Cockcroft-Gault) 14.1 BUN/Creatinine Ratio 11 (6-20) Glucose Level 101 mg/dL (70-99) Calcium Level 8.9 mg/dL (8.5-10.1) Total Bilirubin 0.6 mg/dL (0.2-1.0) Aspartate Amino Transf (AST/SGOT) 25 U/L (15-37) Alanine Aminotransferase (ALT/SGPT) 25 U/L (16-63) Alkaline Phosphatase 77 U/L (46-116) Troponin I Quantitative 0.033 ng/mL (0.000-0.055) DR-Cdx-A-Type Natriuretic Peptide > 00019 pg/mL (0-124) Total Protein 7.1 g/dL (6.4-8.2) Albumin 2.6 g/dL (3.4-5.0) Albumin/Globulin Ratio 0.6 (1.0-1.7) Urine Collection Type Unknown Urine Color Yellow Urine Clarity Clear Urine pH 6.0 Urine Specific [place] 1.020 Urine Protein >=300 mg/dL (NEG-TRACE) Urine Glucose (UA) 100 mg/dL (NEG) Urine Ketones (Stick) Negative mg/dL (NEG) Urine Blood Trace (NEG) Urine Nitrite Negative (NEG) Urine Bilirubin Negative (NEG) Urine Urobilinogen Dipstick 1.0 mg/dL (0.2 mg/dL) Urine Leukocyte Esterase Negative (NEG) Urine RBC 1-2 /HPF (0-2) Urine WBC Occ /HPF (0-4) Urine Squamous Epithelial Cells Occ /LPF Urine Bacteria Few /HPF (0-FEW) Urine Hyaline Casts Few /HPF Urine Mucus Slight /LPF VTE Prophylaxis Ordered VTE Prophylaxis Devices: Yes VTE Pharmacological Prophylaxi: Yes Assessment/Plan Assessment/Plan acute on chronic diastolic CHF ESRD, on HD, better urine output prior Osteo infection feet Dm2, prior poor control obese, BMI 38 htn lipids SUGAR BEAL MD Mar 24, 2019 17:01
[2019-03-24] MEDS ORDERED: diphenhydrAMINE HCL 25 MG CAPSULE PO PRN (17:15)
[2019-03-24] MEDS: CARVEDILOL 3.125 MG TABLET. PO SCH (18:48)
[2019-03-24 20:10] VITALS: BP 170/87
[2019-03-24] MEDS ORDERED: FAMOTIDINE 20 MG TABLET. PO SCH (21:00)
[2019-03-24] MEDS ORDERED: NON FORMULARY ITEM (Fluticasone Propionate (Flovent 110MCG Hfa) 2 PUFF) IH SCH (21:00)
[2019-03-24] MEDS: ALBUTEROL SULFATE 2.5 MG/3 ML NEBU. NEB PRN (21:13)
[2019-03-24] MEDS: BUDESONIDE 0.5 MG/2 ML NEBU. NEB SCH (21:13)
[2019-03-24 22:36] VITALS: BP 180/103
[2019-03-24] MEDS: MAGNESIUM OXIDE 400 MG TABLET PO SCH (23:02)
[2019-03-24] MEDS: levETIRAcetam 500 MG TABLET PO SCH (23:02)
[2019-03-24] MEDS: ATORVASTATIN CALCIUM 40 MG TABLET. PO SCH (23:02)
[2019-03-24] MEDS: LACTOBACILLUS RHAMNOSUS GG 1 CAPSULE. PO SCH (23:03)
[2019-03-25 00:13] VITALS: BP 154/67
[2019-03-25] MEDS: ALBUTEROL SULFATE 2.5 MG/3 ML NEBU. NEB PRN ×4 (02:02→21:01)
[2019-03-25 03:23] VITALS: BP 173/77
[2019-03-25 07:00] VITALS: BP 166/72
[2019-03-25] MEDS: BUDESONIDE 0.5 MG/2 ML NEBU. NEB SCH ×2 (07:32→21:01)
[2019-03-25 07:38] LABS: BASO # 0.1 x10^3/uL (0.0-0.2); BASO % 3 % (0-3); EOS # 0.2 x10^3/uL (0.0-0.7); EOS % 5 % (0-3); HEMATOCRIT 28.2 % (39.0-53.0); HEMOGLOBIN 8.8 g/dL (13.0-17.5); LYMPH # 0.7 x10^3/uL (1.0-4.8); LYMPH % 18 % (24-48); MEAN CORPUSCULAR HEMOGLOBIN 29 pg (25-35); MEAN CORPUSCULAR HGB CONC 31 g/dL (31-37); MEAN CORPUSCULAR VOLUME 92 fL (79-100); MONO # 0.5 x10^3/uL (0.0-1.1); MONO % 11 % (0-9); NEUT # 2.6 x10^3/uL (1.8-7.7); NEUT % 63 % (31-73); PLATELET COUNT 150 x10^3/uL (140-400); RED BLOOD COUNT 3.06 x10^6/uL (4.30-5.70); RED CELL DISTRIBUTION WIDTH 18.7 % (11.5-14.5); WHITE BLOOD COUNT 4.1 x10^3/uL (4.0-11.0)
[2019-03-25 07:56] LABS: ALBUMIN 2.4 g/dL (3.4-5.0); ALBUMIN/GLOBULIN RATIO 0.5 (1.0-1.7); CREATININE 5.3 mg/dL (0.7-1.3); GFR 13.8; TOTAL BILIRUBIN 0.5 mg/dL (0.2-1.0); TOTAL PROTEIN 7.3 g/dL (6.4-8.2)
[2019-03-25] MEDS ORDERED: IV NORMAL SALINE 1000ML BAG 1,000 ML IV PRN ×2 (08:09)
[2019-03-25] MEDS ORDERED: ACETAMINOPHEN 500 MG TABLET PO PRN (08:15)
[2019-03-25] MEDS ORDERED: diphenhydrAMINE 50 MG/ML VIAL IV PRN ×2 (08:15)
[2019-03-25] MEDS ORDERED: DIALYSIS PATIENT. MC PRN (08:15)
[2019-03-25] MEDS ORDERED: ALBUMIN HUMAN 25% 200 ML IV PRN (08:15)
[2019-03-25] MEDS ORDERED: LINAGLIPTIN 5 MG TABLET PO SCH (09:00)
[2019-03-25] MEDS: LACTOBACILLUS RHAMNOSUS GG 1 CAPSULE. PO SCH ×2 (09:00→21:13)
[2019-03-25] MEDS ORDERED: FUROSEMIDE 40 MG/4 ML VIAL. IVP SCH (09:00)
[2019-03-25] MEDS ORDERED: LIDOCAINE 1% PF 2 ML VIAL. ONE (09:34)
[2019-03-25 10:11] LABS: % BASOS 4 % (0-3); % EOS 8 % (0-5); % LYMPHS 10 % (24-48); % MONOS 6 % (0-10); % SEGS 72 % (35-66); ANISOCYTOSIS SLIGHT; PLT ESTIMATE ADEQUATE (ADEQUATE)
[2019-03-25] MEDS ORDERED: ONDANSETRON PF 4 MG/2 ML VIAL. IV PRN (10:30)
[2019-03-25] MEDS ORDERED: cloNIDine HCL 0.1 MG TABLET PO PRN (10:30)
--- NOTE | 2019-03-25 10:51 | NUR ---
IP: patient has hx of +MRSA nasal screen 02/21/19, requires contact precautions until 2 negative results 7 days apart.
--- NOTE | 2019-03-25 10:52 | NUR ---
SS following for discharge planning. SS reviewed pt chart. Pt is from home with spouse and is currently on room air. Pt has had several readmissions to the hospital due to non-compliance and is a high risk readmission risk. Pt has [facility]PHD in [place] and has had previous home healthcare services in the past with [facility], ; fax [phone]. SS will continue to follow for discharge planning.
--- NOTE | 2019-03-25 11:04 | PDOC ---
PROGRESS NOTES Chief Complaint Chief Complaint acute on chronic diastolic CHF ESRD, on HD, AOCD prior Osteo infection feet follows with wound care with poor compliance Dm2, prior poor control obese, BMI 38 htn dyslipidemia History of Present Illness History of Present Illness OUt having HD NOn complaint to HD sessions or wound care ff up, but he claims compliance to meds HAs been fired by diff HH agencies, I was told PLAn: Wound care, HD,. home meds. HH on dc - when cleared by wound care and renal Vitals Vitals Vital Signs Date Time Temp Pulse Resp B/P (MAP) Pulse Ox O2 Delivery O2 Flow Rate FiO2 03/25/19 08:00 Room Air 03/25/19 07:33 96 03/25/19 07:00 97.0 65 16 166/72 (103) 97.0 Physical Exam General: Alert, Oriented X3, Cooperative, mild distress Lungs: Clear, Crackles Abdomen: Normal bowel sounds, Soft Extremities: No edema, Other (stump clear) Skin: No rashes, No breakdown, No significant lesion Labs LABS Laboratory Tests Test 03/24/19 13:16 03/24/19 15:10 03/24/19 20:21 03/25/19 07:10 White Blood Count 4.7 x10^3/uL (4.0-11.0) 4.1 x10^3/uL (4.0-11.0) Red Blood Count 2.86 x10^6/uL (4.30-5.70) 3.06 x10^6/uL (4.30-5.70) Hemoglobin 8.3 g/dL (13.0-17.5) 8.8 g/dL (13.0-17.5) Hematocrit 26.3 % (39.0-53.0) 28.2 % (39.0-53.0) Mean Corpuscular Volume 92 fL (79-100) 92 fL (79-100) Mean Corpuscular Hemoglobin 29 pg (25-35) 29 pg (25-35) Mean Corpuscular Hemoglobin Concent 32 g/dL (31-37) 31 g/dL (31-37) Red Cell Distribution Width 17.9 % (11.5-14.5) 18.7 % (11.5-14.5) Platelet Count 157 x10^3/uL (140-400) 150 x10^3/uL (140-400) Neutrophils (%) (Auto) 67 % (31-73) 63 % (31-73) Lymphocytes (%) (Auto) 17 % (24-48) 18 % (24-48) Monocytes (%) (Auto) 12 % (0-9) 11 % (0-9) Eosinophils (%) (Auto) 5 % (0-3) 5 % (0-3) Basophils (%) (Auto) 0 % (0-3) 3 % (0-3) Neutrophils # (Auto) 3.1 x10^3/uL (1.8-7.7) 2.6 x10^3/uL (1.8-7.7) Lymphocytes # (Auto) 0.8 x10^3/uL (1.0-4.8) 0.7 x10^3/uL (1.0-4.8) Monocytes # (Auto) 0.6 x10^3/uL (0.0-1.1) 0.5 x10^3/uL (0.0-1.1) Eosinophils # (Auto) 0.2 x10^3/uL (0.0-0.7) 0.2 x10^3/uL (0.0-0.7) Basophils # (Auto) 0.0 x10^3/uL (0.0-0.2) 0.1 x10^3/uL (0.0-0.2) Sodium Level 143 mmol/L (136-145) 141 mmol/L (136-145) Potassium Level 5.9 mmol/L (3.5-5.1) 6.0 mmol/L (3.5-5.1) Chloride Level 114 mmol/L (98-107) 113 mmol/L (98-107) Carbon Dioxide Level 21 mmol/L (21-32) 17 mmol/L (21-32) Anion Gap 8 (6-14) 11 (6-14) Blood Urea Nitrogen 58 mg/dL (8-26) 56 mg/dL (8-26) Creatinine 5.2 mg/dL (0.7-1.3) 5.3 mg/dL (0.7-1.3) Estimated GFR (Cockcroft-Gault) 14.1 13.8 BUN/Creatinine Ratio 11 (6-20) 11 (6-20) Glucose Level 101 mg/dL (70-99) 104 mg/dL (70-99) Calcium Level 8.9 mg/dL (8.5-10.1) 9.0 mg/dL (8.5-10.1) Total Bilirubin 0.6 mg/dL (0.2-1.0) 0.5 mg/dL (0.2-1.0) Aspartate Amino Transf (AST/SGOT) 25 U/L (15-37) 24 U/L (15-37) Alanine Aminotransferase (ALT/SGPT) 25 U/L (16-63) 21 U/L (16-63) Alkaline Phosphatase 77 U/L (46-116) 74 U/L (46-116) Troponin I Quantitative 0.033 ng/mL (0.000-0.055) UQ-Fli-L-Type Natriuretic Peptide > 91298 pg/mL (0-124) Total Protein 7.1 g/dL (6.4-8.2) 7.3 g/dL (6.4-8.2) Albumin 2.6 g/dL (3.4-5.0) 2.4 g/dL (3.4-5.0) Albumin/Globulin Ratio 0.6 (1.0-1.7) 0.5 (1.0-1.7) Urine Collection Type Unknown Urine Color Yellow Urine Clarity Clear Urine pH 6.0 Urine Specific [place] 1.020 Urine Protein >=300 mg/dL (NEG-TRACE) Urine Glucose (UA) 100 mg/dL (NEG) Urine Ketones (Stick) Negative mg/dL (NEG) Urine Blood Trace (NEG) Urine Nitrite Negative (NEG) Urine Bilirubin Negative (NEG) Urine Urobilinogen Dipstick 1.0 mg/dL (0.2 mg/dL) Urine Leukocyte Esterase Negative (NEG) Urine RBC 1-2 /HPF (0-2) Urine WBC Occ /HPF (0-4) Urine Squamous Epithelial Cells Occ /LPF Urine Bacteria Few /HPF (0-FEW) Urine Hyaline Casts Few /HPF Urine Mucus Slight /LPF Glucose (Fingerstick) 89 mg/dL (70-99) Segmented Neutrophils % 72 % (35-66) Lymphocytes % 10 % (24-48) Monocytes % 6 % (0-10) Eosinophils % 8 % (0-5) Basophils % 4 % (0-3) Platelet Estimate Adequate (ADEQUATE) Anisocytosis Slight Test 03/25/19 07:44 Glucose (Fingerstick) 99 mg/dL (70-99) Review of Systems Review of Systems no cp, no soa, no fevers, no abd pain, no diarrhea Assessment and Plan Assessmemt and Plan Problems Medical Problems: (1) CHF, acute on chronic Status: Acute (2) Diabetes mellitus type 2 in obese Status: Chronic (3) HTN (hypertension) Status: Chronic Comment Review of Relevant I have reviewed the following items lila (where applicable) has been applied. Labs Laboratory Tests Test 03/24/19 13:16 03/24/19 15:10 03/24/19 20:21 03/25/19 07:10 White Blood Count 4.7 x10^3/uL (4.0-11.0) 4.1 x10^3/uL (4.0-11.0) Red Blood Count 2.86 x10^6/uL (4.30-5.70) 3.06 x10^6/uL (4.30-5.70) Hemoglobin 8.3 g/dL (13.0-17.5) 8.8 g/dL (13.0-17.5) Hematocrit 26.3 % (39.0-53.0) 28.2 % (39.0-53.0) Mean Corpuscular Volume 92 fL (79-100) 92 fL (79-100) Mean Corpuscular Hemoglobin 29 pg (25-35) 29 pg (25-35) Mean Corpuscular Hemoglobin Concent 32 g/dL (31-37) 31 g/dL (31-37) Red Cell Distribution Width 17.9 % (11.5-14.5) 18.7 % (11.5-14.5) Platelet Count 157 x10^3/uL (140-400) 150 x10^3/uL (140-400) Neutrophils (%) (Auto) 67 % (31-73) 63 % (31-73) Lymphocytes (%) (Auto) 17 % (24-48) 18 % (24-48) Monocytes (%) (Auto) 12 % (0-9) 11 % (0-9) Eosinophils (%) (Auto) 5 % (0-3) 5 % (0-3) Basophils (%) (Auto) 0 % (0-3) 3 % (0-3) Neutrophils # (Auto) 3.1 x10^3/uL (1.8-7.7) 2.6 x10^3/uL (1.8-7.7) Lymphocytes # (Auto) 0.8 x10^3/uL (1.0-4.8) 0.7 x10^3/uL (1.0-4.8) Monocytes # (Auto) 0.6 x10^3/uL (0.0-1.1) 0.5 x10^3/uL (0.0-1.1) Eosinophils # (Auto) 0.2 x10^3/uL (0.0-0.7) 0.2 x10^3/uL (0.0-0.7) Basophils # (Auto) 0.0 x10^3/uL (0.0-0.2) 0.1 x10^3/uL (0.0-0.2) Sodium Level 143 mmol/L (136-145) 141 mmol/L (136-145) Potassium Level 5.9 mmol/L (3.5-5.1) 6.0 mmol/L (3.5-5.1) Chloride Level 114 mmol/L (98-107) 113 mmol/L (98-107) Carbon Dioxide Level 21 mmol/L (21-32) 17 mmol/L (21-32) Anion Gap 8 (6-14) 11 (6-14) Blood Urea Nitrogen 58 mg/dL (8-26) 56 mg/dL (8-26) Creatinine 5.2 mg/dL (0.7-1.3) 5.3 mg/dL (0.7-1.3) Estimated GFR (Cockcroft-Gault) 14.1 13.8 BUN/Creatinine Ratio 11 (6-20) 11 (6-20) Glucose Level 101 mg/dL (70-99) 104 mg/dL (70-99) Calcium Level 8.9 mg/dL (8.5-10.1) 9.0 mg/dL (8.5-10.1) Total Bilirubin 0.6 mg/dL (0.2-1.0) 0.5 mg/dL (0.2-1.0) Aspartate Amino Transf (AST/SGOT) 25 U/L (15-37) 24 U/L (15-37) Alanine Aminotransferase (ALT/SGPT) 25 U/L (16-63) 21 U/L (16-63) Alkaline Phosphatase 77 U/L (46-116) 74 U/L (46-116) Troponin I Quantitative 0.033 ng/mL (0.000-0.055) NC-Cdx-P-Type Natriuretic Peptide > 19333 pg/mL (0-124) Total Protein 7.1 g/dL (6.4-8.2) 7.3 g/dL (6.4-8.2) Albumin 2.6 g/dL (3.4-5.0) 2.4 g/dL (3.4-5.0) Albumin/Globulin Ratio 0.6 (1.0-1.7) 0.5 (1.0-1.7) Urine Collection Type Unknown Urine Color Yellow Urine Clarity Clear Urine pH 6.0 Urine Specific [place] 1.020 Urine Protein >=300 mg/dL (NEG-TRACE) Urine Glucose (UA) 100 mg/dL (NEG) Urine Ketones (Stick) Negative mg/dL (NEG) Urine Blood Trace (NEG) Urine Nitrite Negative (NEG) Urine Bilirubin Negative (NEG) Urine Urobilinogen Dipstick 1.0 mg/dL (0.2 mg/dL) Urine Leukocyte Esterase Negative (NEG) Urine RBC 1-2 /HPF (0-2) Urine WBC Occ /HPF (0-4) Urine Squamous Epithelial Cells Occ /LPF Urine Bacteria Few /HPF (0-FEW) Urine Hyaline Casts Few /HPF Urine Mucus Slight /LPF Glucose (Fingerstick) 89 mg/dL (70-99) Segmented Neutrophils % 72 % (35-66) Lymphocytes % 10 % (24-48) Monocytes % 6 % (0-10) Eosinophils % 8 % (0-5) Basophils % 4 % (0-3) Platelet Estimate Adequate (ADEQUATE) Anisocytosis Slight Test 03/25/19 07:44 Glucose (Fingerstick) 99 mg/dL (70-99) Laboratory Tests Test 03/24/19 13:16 03/24/19 15:10 03/24/19 20:21 8/13/19 07:10 White Blood Count 4.7 x10^3/uL (4.0-11.0) 4.1 x10^3/uL (4.0-11.0) Red Blood Count 2.86 x10^6/uL (4.30-5.70) 3.06 x10^6/uL (4.30-5.70) Hemoglobin 8.3 g/dL (13.0-17.5) 8.8 g/dL (13.0-17.5) Hematocrit 26.3 % (39.0-53.0) 28.2 % (39.0-53.0) Mean Corpuscular Volume 92 fL (79-100) 92 fL (79-100) Mean Corpuscular Hemoglobin 29 pg (25-35) 29 pg (25-35) Mean Corpuscular Hemoglobin Concent 32 g/dL (31-37) 31 g/dL (31-37) Red Cell Distribution Width 17.9 % (11.5-14.5) 18.7 % (11.5-14.5) Platelet Count 157 x10^3/uL (140-400) 150 x10^3/uL (140-400) Neutrophils (%) (Auto) 67 % (31-73) 63 % (31-73) Lymphocytes (%) (Auto) 17 % (24-48) 18 % (24-48) Monocytes (%) (Auto) 12 % (0-9) 11 % (0-9) Eosinophils (%) (Auto) 5 % (0-3) 5 % (0-3) Basophils (%) (Auto) 0 % (0-3) 3 % (0-3) Neutrophils # (Auto) 3.1 x10^3/uL (1.8-7.7) 2.6 x10^3/uL (1.8-7.7) Lymphocytes # (Auto) 0.8 x10^3/uL (1.0-4.8) 0.7 x10^3/uL (1.0-4.8) Monocytes # (Auto) 0.6 x10^3/uL (0.0-1.1) 0.5 x10^3/uL (0.0-1.1) Eosinophils # (Auto) 0.2 x10^3/uL (0.0-0.7) 0.2 x10^3/uL (0.0-0.7) Basophils # (Auto) 0.0 x10^3/uL (0.0-0.2) 0.1 x10^3/uL (0.0-0.2) Sodium Level 143 mmol/L (136-145) 141 mmol/L (136-145) Potassium Level 5.9 mmol/L (3.5-5.1) 6.0 mmol/L (3.5-5.1) Chloride Level 114 mmol/L (98-107) 113 mmol/L (98-107) Carbon Dioxide Level 21 mmol/L (21-32) 17 mmol/L (21-32) Anion Gap 8 (6-14) 11 (6-14) Blood Urea Nitrogen 58 mg/dL (8-26) 56 mg/dL (8-26) Creatinine 5.2 mg/dL (0.7-1.3) 5.3 mg/dL (0.7-1.3) Estimated GFR (Cockcroft-Gault) 14.1 13.8 BUN/Creatinine Ratio 11 (6-20) 11 (6-20) Glucose Level 101 mg/dL (70-99) 104 mg/dL (70-99) Calcium Level 8.9 mg/dL (8.5-10.1) 9.0 mg/dL (8.5-10.1) Total Bilirubin 0.6 mg/dL (0.2-1.0) 0.5 mg/dL (0.2-1.0) Aspartate Amino Transf (AST/SGOT) 25 U/L (15-37) 24 U/L (15-37) Alanine Aminotransferase (ALT/SGPT) 25 U/L (16-63) 21 U/L (16-63) Alkaline Phosphatase 77 U/L (46-116) 74 U/L (46-116) Troponin I Quantitative 0.033 ng/mL (0.000-0.055) PA-Jjw-T-Type Natriuretic Peptide > 61129 pg/mL (0-124) Total Protein 7.1 g/dL (6.4-8.2) 7.3 g/dL (6.4-8.2) Albumin 2.6 g/dL (3.4-5.0) 2.4 g/dL (3.4-5.0) Albumin/Globulin Ratio 0.6 (1.0-1.7) 0.5 (1.0-1.7) Urine Collection Type Unknown Urine Color Yellow Urine Clarity Clear Urine pH 6.0 Urine Specific [place] 1.020 Urine Protein >=300 mg/dL (NEG-TRACE) Urine Glucose (UA) 100 mg/dL (NEG) Urine Ketones (Stick) Negative mg/dL (NEG) Urine Blood Trace (NEG) Urine Nitrite Negative (NEG) Urine Bilirubin Negative (NEG) Urine Urobilinogen Dipstick 1.0 mg/dL (0.2 mg/dL) Urine Leukocyte Esterase Negative (NEG) Urine RBC 1-2 /HPF (0-2) Urine WBC Occ /HPF (0-4) Urine Squamous Epithelial Cells Occ /LPF Urine Bacteria Few /HPF (0-FEW) Urine Hyaline Casts Few /HPF Urine Mucus Slight /LPF Glucose (Fingerstick) 89 mg/dL (70-99) Segmented Neutrophils % 72 % (35-66) Lymphocytes % 10 % (24-48) Monocytes % 6 % (0-10) Eosinophils % 8 % (0-5) Basophils % 4 % (0-3) Platelet Estimate Adequate (ADEQUATE) Anisocytosis Slight Test 03/25/19 07:44 Glucose (Fingerstick) 99 mg/dL (70-99) Medications Current Medications Albuterol/ Ipratropium (Duoneb) 3 ml 1X ONCE NEB Last administered on 03/24/19at 14:10; Start 03/24/19 at 13:45; Stop 03/24/19 at 13:46; Status DC Albuterol/ Ipratropium (Duoneb) 3 ml 1X ONCE NEB ; Start 03/24/19 at 15:15; Stop 03/24/19 at 15:03; Status DC Furosemide (Lasix) 40 mg DAILY IVP ; Start 03/25/19 at 09:00; Stop 03/24/19 at 16:05; Status DC Ondansetron HCl (Zofran) 4 mg PRN Q8HRS PRN IV NAUSEA/VOMITING; Start 03/24/19 at 16:00; Stop 03/25/19 at 10:49; Status DC Fentanyl Citrate (Fentanyl 2ml Vial) 50 mcg PRN Q1HR PRN IV PAIN; Start 03/24/19 at 16:00; Stop 03/25/19 at 15:59 Furosemide (Lasix) 100 mg STK-MED ONCE .ROUTE ; Start 03/24/19 at 16:03; Stop 03/24/19 at 16:03; Status DC Furosemide (Lasix) 40 mg 1X STAT IVP Last administered on 03/24/19at 16:06; Start 03/24/19 at 16:06; Stop 03/24/19 at 16:07; Status DC Acetaminophen (Tylenol) 650 mg PRN Q6HRS PRN PO FEVER; Start 03/24/19 at 17:00 Aspirin (Children'S Aspirin) 81 mg DAILY PO ; Start 03/25/19 at 09:00 Calcium Carbonate/ Glycine (Oscal) 500 mg BIDWMEALS PO ; Start 03/25/19 at 08:00 Calcium Carbonate/ Glycine (Tums) 500 mg PRN Q4HRS PRN PO INDIGESTION; Start 03/24/19 at 17:00 Carvedilol (Coreg) 3.125 mg BIDWMEALS PO Last administered on 03/24/19at 18:48; Start 03/24/19 at 17:00 Cetirizine HCl (ZyrTEC) 10 mg DAILY PO ; Start 03/25/19 at 09:00 Clopidogrel Bisulfate (Plavix) 75 mg DAILY PO ; Start 03/25/19 at 09:00 Famotidine (Pepcid) 20 mg HS PO Last administered on 03/24/19at 23:03; Start 03/24/19 at 21:00; Stop 03/25/19 at 10:48; Status DC Acetaminophen/ Hydrocodone Bitart (Lortab 5/325) 1 tab PRN Q6HRS PRN PO PAIN; Start 03/24/19 at 17:00 Isosorbide Mononitrate (Imdur) 30 mg DAILY PO ; Start 03/25/19 at 09:00 Lactobacillus Rhamnosus (Culturelle) 1 cap BID PO Last administered on 03/24/19at 23:03; Start 03/24/19 at 21:00 Levothyroxine Sodium (Synthroid) 175 mcg DAILYAC PO ; Start 03/25/19 at 07:30 Linagliptin (Tradjenta) 5 mg DAILY PO ; Start 03/25/19 at 09:00 Pramipexole Dihydrochloride (miraPEX) 0.25 mg DAILY PO ; Start 03/25/19 at 09:00 Zolpidem Tartrate (Ambien) 5 mg PRN QHS PRN PO sleep Last administered on 03/24/19 23:03; Start 03/24/19 at 17:00 Non-Formulary Medication (Albuterol Sulfate (Ventolin Hfa Inhaler)) 1 puff Q6HRS PRN INH SHORTNESS OF BREATH; Start 03/24/19 at 17:00; Status UNV Atorvastatin Calcium (Lipitor) 80 mg QHS PO Last administered on 03/24/19 23:03; Start 03/24/19 at 21:00 Diphenhydramine HCl (Benadryl) 25 mg PRN Q6HRS PRN PO ITCHING Last administered on 03/24/19at 23:03; Start 03/24/19 at 17:15 Non-Formulary Medication (Fluticasone Propionate (Flovent 110MCG Hfa)) 2 puff BID IH ; Start 03/24/19 at 21:00; Status UNV Levetiracetam (Keppra) 1,000 mg BID PO Last administered on 03/24/19 23:03; Start 03/24/19 at 21:00 Magnesium Oxide (Magnesium Oxide) 200 mg BID PO Last administered on 03/24/19 23:03; Start 03/24/19 at 21:00 Albuterol Sulfate (Ventolin Neb Soln) 2.5 mg PRN Q6HRS PRN NEB SHORTNESS OF BREATH Last administered on 03/25/19at 07:32; Start 03/24/19 at 17:15 Budesonide (Pulmicort) 0.5 mg RTBID NEB Last administered on 03/25/19at 07:32; Start 03/24/19 at 20:00 Sodium Chloride 1,000 ml @ 1,000 mls/hr Q1H PRN IV hypotension; Start 03/25/19 at 08:09; Stop 03/25/19 at 14:08 Albumin Human 200 ml @ 200 mls/hr 1X PRN PRN IV Hypotension; Start 03/25/19 at 08:15; Stop 03/25/19 at 14:14 Acetaminophen (Tylenol) 500 mg 1X PRN PRN PO MILD PAIN / TEMP; Start 03/25/19 at 08:15; Stop 03/26/19 at 08:14 Diphenhydramine HCl (Benadryl) 25 mg 1X PRN PRN IV ITCHING; Start 03/25/19 at 08:15; Stop 03/26/19 at 08:14 Diphenhydramine HCl (Benadryl) 25 mg 1X PRN PRN IV ITCHING; Start 03/25/19 at 08:15; Stop 03/26/19 at 08:14 Sodium Chloride 1,000 ml @ 400 mls/hr Q2H30M PRN IV PATENCY; Start 03/25/19 at 08:09; Stop 03/25/19 at 20:08 Info (PHARMACY MONITORING -- do not chart) 1 each PRN DAILY PRN MC SEE COMMENTS; Start 03/25/19 at 08:15 Lidocaine HCl (Xylocaine-Mpf 1% 2ml Vial) 2 ml STK-MED ONCE .ROUTE ; Start 03/25/19 at 09:34; Stop 03/25/19 at 09:35; Status DC Clonidine HCl (Catapres) 0.1 mg PRN Q1HR PRN PO HYPERTENSION; Start 03/25/19 at 10:30 Ondansetron HCl (Zofran) 4 mg PRN Q6HRS PRN IV NAUSEA/VOMITING; Start 03/25/19 at 10:30 Famotidine (Pepcid) 20 mg Q48H PO ; Start 03/26/19 at 21:00 Active Scripts Active Flagyl (Metronidazole) 500 Mg Tablet 500 Mg PO Q12HR Zyvox (Linezolid) 600 Mg Tablet 600 Mg PO BID Cipro (Ciprofloxacin Hcl) 250 Mg Tablet 500 Mg PO DAILY 7 Days Hydrocodone-Acetamin 5-325 mg (Hydrocodone/Acetaminophen) 1 Each Tablet 1 Each PO PRN Q6HRS PRN Culturelle (Lactobacillus Rhamnosus Gg) 1 Each Cap.sprink 1 Cap PO BID 14 Days Isosorbide Mononitrate Er (Isosorbide Mononitrate) 30 Mg Tab.er.24h 30 Mg PO DAILY 30 Days Coreg (Carvedilol) 3.125 Mg Tablet 3.125 Mg PO BIDWMEALS Flovent 110MCG Hfa (Fluticasone Propionate) 12 Gm Aer.w.adap 2 Puff IH BID Zolpidem Tartrate 5 Mg Tablet 1 Tab PO QHS PRN Mirapex (Pramipexole Di-Hcl) 0.25 Mg Tablet 1 Tab PO DAILY Famotidine 20 Mg Tablet 20 Mg PO HS Ventolin Hfa Inhaler (Albuterol Sulfate) 18 Gm Hfa.aer.ad 1 Puff INH Q6HRS PRN Levothyroxine Sodium 175 Mcg Tablet 175 Mcg PO DAILYAC Reported Atorvastatin Calcium 80 Mg Tablet 80 Mg PO HS Cetirizine Hcl 10 Mg Tablet 1 Tab PO DAILY Clopidogrel (Clopidogrel Bisulfate) 75 Mg Tablet 1 Tab PO DAILY Magnesium (Magnesium Oxide) 400 Mg Capsule 250 Mg PO BID Tums (Calcium Carbonate) 200 Mg Tab.chew 200 Mg PO PRN Q4HRS PRN Aspirin 81 Mg Tab.chew 1 Tab PO DAILY Tradjenta (Linagliptin) 5 Mg Tablet 5 Mg PO DAILY Diphenhydramine Hcl 50 Mg Capsule 1 Cap PO PRN Calcium Carbonate 500 Mg Tablet 500 Mg PO BID Keppra (Levetiracetam) 1,000 Mg Tablet 1 Tab PO BID Tylenol (Acetaminophen) 325 Mg Tablet 650 Mg PO PRN Q6HRS PRN Vitals/I & O Vital Sign - Last 24 Hours 03/24/19 03/24/19 03/24/19 03/24/19 12:30 13:04 13:34 14:04 Temp 98.6 98.6 Pulse 89 83 84 85 Resp 20 20 20 22 B/P (MAP) 202/81 (121) 199/89 (125) 127/77 (94) 155/78 (103) Pulse Ox 100 98 98 99 O2 Delivery Room Air Room Air Room Air Room Air 03/24/19 03/24/19 03/24/19 03/24/19 14:13 14:34 15:34 16:34 Pulse 85 87 86 Resp 20 20 18 B/P (MAP) 177/79 (111) 174/86 (115) 182/82 (115) Pulse Ox 98 99 99 99 O2 Delivery Room Air Room Air Room Air Room Air 03/24/19 03/24/19 03/24/19 03/24/19 17:34 18:34 18:48 19:30 Pulse 83 80 82 68 Resp 18 18 20 B/P (MAP) 182/78 (112) 225/113 (150) 200/88 159/76 (103) Pulse Ox 99 99 96 O2 Delivery Room Air Room Air Room Air 03/24/19 03/24/19 03/24/19 03/24/19 20:00 20:10 21:15 21:16 Temp 97.5 97.5 Pulse 84 Resp 18 B/P (MAP) 170/87 (114) Pulse Ox 100 100 100 O2 Delivery Room Air Room Air Room Air Room Air 03/24/19 03/25/19 03/25/19 03/25/19 22:36 00:13 02:02 03:23 Temp 98.4 98.4 98.4 98.4 Pulse 79 81 81 Resp 16 18 B/P (MAP) 180/103 (128) 154/67 (96) 173/77 (109) Pulse Ox 100 97 O2 Delivery Room Air Room Air Room Air 03/25/19 03/25/19 03/25/19 07:00 07:33 08:00 Temp 97.0 97.0 Pulse 65 Resp 16 B/P (MAP) 166/72 (103) Pulse Ox 92 96 O2 Delivery Room Air Room Air Room Air Intake and Output 03/24/19 03/24/19 03/25/19 15:00 23:00 07:00 Intake Total 600 ml 500 ml Output Total 400 ml 475 ml Balance 200 ml 25 ml ANDRAE ROA MD Mar 25, 2019 11:04
[2019-03-25 15:00] VITALS: BP 158/83
[2019-03-25] MEDS: MAGNESIUM OXIDE 400 MG TABLET PO SCH ×2 (15:09→21:15)
[2019-03-25] MEDS: levETIRAcetam 500 MG TABLET PO SCH ×2 (15:09→21:14)
[2019-03-25] MEDS: CALCIUM CARBONATE 500 MG TABLET PO SCH ×2 (15:10→17:00)
[2019-03-25] MEDS: PRAMIPEXOLE 0.25 MG TABLET. PO SCH (15:10)
[2019-03-25] MEDS: LEVOTHYROXINE 175 MCG TABLET PO SCH (15:10)
[2019-03-25] MEDS: CARVEDILOL 3.125 MG TABLET. PO SCH ×2 (15:10→17:00)
[2019-03-25] MEDS: ASPIRIN CHEWABLE 81 MG TABLET. PO SCH (15:11)
[2019-03-25] MEDS: CLOPIDOGREL BISULFATE 75 MG TABLET PO SCH (15:11)
[2019-03-25] MEDS: CETIRIZINE HCL 10 MG TABLET. PO SCH (15:12)
[2019-03-25] MEDS: ISOSORBIDE MONONITRATE ER 30 MG TAB.ER.24H PO SCH (15:12)
--- NOTE | 2019-03-25 15:40 | NUR ---
SS following up with discharge planning. SS contacted [facility] in [place], , to verify pt's chair time. [facility] confirmed that pt still has a chair time on Sunday, , and Sunday at 1400 but has not shown for dialysis since 02/08/2019. Pt has transportation arranged to take him to and from dialysis each day and drivers report that despite knocking and efforts pt and spouse does not answer the door. [facility] reported that when they have called pt and spouse have reported that they would prefer to come to the hospital one time per month to get dialysis. Pt's RN notified.
--- NOTE | 2019-03-25 15:48 | PDOC2 ---
CONSULT Date of Consult Date of Consult DATE: 03/25/19 TIME: 15:44 Reason for Consult Reason for Consult: HIGH K Referring Physician Referring Physician: [email or web address] Identification/Chief Complaint Chief Complaint SOB History of Present Illness Reason for Visit: Aquiles is a 53 year old male admit for worsneing shortness of breath is very well known here for mult infections, osteo, wound infections with Dm2, is s/p Left BKA/right partial foot amputation, and end-stage renal disease. he has worsening dyspnea for over a week, new orthopenea. he had now gone to dialysis for a month, then went to day, and they had given his chair time away. He has been making more urine, and he says that [facility] dropped him because his renal fxn was better he reports compliance with other meds Past Medical History Cardiovascular: AFIB, CAD, CHF, HTN, NM, Hyperlipidemia, Other Pulmonary: COPD CENTRAL NERVOUS SYSTEM: Dementia, Periperal neuropathy, Seizure, TIA GI: Diverticulosis, Other Heme/Onc: Anemia NOS Hepatobiliary: No pertinent hx Psych: Anxiety, Depression Musculoskeletal: Osteoarthritis Rheumatologic: Rheumatoid arthritis Infectious disease: No pertinent hx Renal/: Chronic renal failure Endocrine: Diabetes, Hypothyroidism, Hyperparathyroidism Past Surgical History Past Surgical History: Cataract Removal, Total knee replacement, Other Family History Family History: Diabetes, Hypertension Social History Social History: Parent ALCOHOL: none Drugs: None Lives: with Family Current Problem List Problem List Problems Medical Problems: (1) CHF, acute on chronic Status: Acute (2) Diabetes mellitus type 2 in obese Status: Chronic (3) HTN (hypertension) Status: Chronic Current Medications Current Medications Current Medications Albuterol/ Ipratropium (Duoneb) 3 ml 1X ONCE NEB Last administered on at 14:10; Start 03/24/19 at 13:45; Stop 03/24/19 at 13:46; Status DC Albuterol/ Ipratropium (Duoneb) 3 ml 1X ONCE NEB ; Start 03/24/19 at 15:15; Stop 03/24/19 at 15:03; Status DC Furosemide (Lasix) 40 mg DAILY IVP ; Start 03/25/19 at 09:00; Stop 03/24/19 at 16:05; Status DC Ondansetron HCl (Zofran) 4 mg PRN Q8HRS PRN IV NAUSEA/VOMITING; Start 03/24/19 at 16:00; Stop 03/25/19 at 10:49; Status DC Fentanyl Citrate (Fentanyl 2ml Vial) 50 mcg PRN Q1HR PRN IV PAIN; Start 03/24/19 at 16:00; Stop 03/25/19 at 15:59 Furosemide (Lasix) 100 mg STK-MED ONCE .ROUTE ; Start 03/24/19 at 16:03; Stop 03/24/19 at 16:03; Status DC Furosemide (Lasix) 40 mg 1X STAT IVP Last administered on 03/24/19at 16:06; Start 03/24/19 at 16:06; Stop 03/24/19 at 16:07; Status DC Acetaminophen (Tylenol) 650 mg PRN Q6HRS PRN PO FEVER; Start 03/24/19 at 17:00 Aspirin (Children'S Aspirin) 81 mg DAILY PO Last administered on 03/25/19at 15:12; Start 03/25/19 at 09:00 Calcium Carbonate/ Glycine (Oscal) 500 mg BIDWMEALS PO Last administered on 03/25/19at 15:12; Start 03/25/19 at 08:00 Calcium Carbonate/ Glycine (Tums) 500 mg PRN Q4HRS PRN PO INDIGESTION; Start 03/24/19 at 17:00 Carvedilol (Coreg) 3.125 mg BIDWMEALS PO Last administered on 03/25/19at 15:12; Start 03/24/19 at 17:00 Cetirizine HCl (ZyrTEC) 10 mg DAILY PO Last administered on 03/25/19at 15:12; Start 03/25/19 at 09:00 Clopidogrel Bisulfate (Plavix) 75 mg DAILY PO Last administered on 03/25/19at 15:12; Start 03/25/19 at 09:00 Famotidine (Pepcid) 20 mg HS PO Last administered on 03/24/19at 23:03; Start 03/24/19 at 21:00; Stop 03/25/19 at 10:48; Status DC Acetaminophen/ Hydrocodone Bitart (Lortab 5/325) 1 tab PRN Q6HRS PRN PO PAIN; Start 03/24/19 at 17:00 Isosorbide Mononitrate (Imdur) 30 mg DAILY PO Last administered on 03/25/19 15:12; Start 03/25/19 at 09:00 Lactobacillus Rhamnosus (Culturelle) 1 cap BID PO Last administered on 03/24/19 23:03; Start 03/24/19 at 21:00 Levothyroxine Sodium (Synthroid) 175 mcg DAILYAC PO Last administered on 03/25/19 15:12; Start 03/25/19 at 07:30 Linagliptin (Tradjenta) 5 mg DAILY PO ; Start 03/25/19 at 09:00 Pramipexole Dihydrochloride (miraPEX) 0.25 mg DAILY PO Last administered on 03/25/19 15:12; Start 03/25/19 at 09:00 Zolpidem Tartrate (Ambien) 5 mg PRN QHS PRN PO sleep Last administered on 03/24/19 23:03; Start 03/24/19 at 17:00 Non-Formulary Medication (Albuterol Sulfate (Ventolin Hfa Inhaler)) 1 puff Q6HRS PRN INH SHORTNESS OF BREATH; Start 03/24/19 at 17:00; Status UNV Atorvastatin Calcium (Lipitor) 80 mg QHS PO Last administered on 03/24/19 23:03; Start 03/24/19 at 21:00 Diphenhydramine HCl (Benadryl) 25 mg PRN Q6HRS PRN PO ITCHING Last administered on 03/24/19 23:03; Start 03/24/19 at 17:15 Non-Formulary Medication (Fluticasone Propionate (Flovent 110MCG Hfa)) 2 puff BID IH ; Start 03/24/19 at 21:00; Status UNV Levetiracetam (Keppra) 1,000 mg BID PO Last administered on 03/25/19 15:12; Start 03/24/19 at 21:00 Magnesium Oxide (Magnesium Oxide) 200 mg BID PO Last administered on 03/25/19 15:12; Start 03/24/19 at 21:00 Albuterol Sulfate (Ventolin Neb Soln) 2.5 mg PRN Q6HRS PRN NEB SHORTNESS OF BREATH Last administered on 03/25/19 07:32; Start 03/24/19 at 17:15 Budesonide (Pulmicort) 0.5 mg RTBID NEB Last administered on 03/25/19at 07:32; Start 03/24/19 at 20:00 Sodium Chloride 1,000 ml @ 1,000 mls/hr Q1H PRN IV hypotension; Start 03/25/19 at 08:09; Stop 03/25/19 at 14:08; Status DC Albumin Human 200 ml @ 200 mls/hr 1X PRN PRN IV Hypotension; Start 03/25/19 at 08:15; Stop 03/25/19 at 14:14; Status DC Acetaminophen (Tylenol) 500 mg 1X PRN PRN PO MILD PAIN / TEMP; Start 03/25/19 at 08:15; Stop 03/26/19 at 08:14 Diphenhydramine HCl (Benadryl) 25 mg 1X PRN PRN IV ITCHING; Start 03/25/19 at 08:15; Stop 03/26/19 at 08:14 Diphenhydramine HCl (Benadryl) 25 mg 1X PRN PRN IV ITCHING; Start 03/25/19 at 08:15; Stop 03/26/19 at 08:14 Sodium Chloride 1,000 ml @ 400 mls/hr Q2H30M PRN IV PATENCY; Start 03/25/19 at 08:09; Stop 03/25/19 at 20:08 Info (PHARMACY MONITORING -- do not chart) 1 each PRN DAILY PRN MC SEE COMMENTS; Start 03/25/19 at 08:15 Lidocaine HCl (Xylocaine-Mpf 1% 2ml Vial) 2 ml STK-MED ONCE .ROUTE ; Start 03/25/19 at 09:34; Stop 03/25/19 at 09:35; Status DC Clonidine HCl (Catapres) 0.1 mg PRN Q1HR PRN PO HYPERTENSION; Start 03/25/19 at 10:30 Ondansetron HCl (Zofran) 4 mg PRN Q6HRS PRN IV NAUSEA/VOMITING; Start 03/25/19 at 10:30 Famotidine (Pepcid) 20 mg Q48H PO ; Start 03/26/19 at 21:00 Active Scripts Active Hydrocodone-Acetamin 5-325 mg (Hydrocodone/Acetaminophen) 1 Each Tablet 1 Each PO PRN Q6HRS PRN Isosorbide Mononitrate Er (Isosorbide Mononitrate) 30 Mg Tab.er.24h 30 Mg PO DAILY 30 Days Coreg (Carvedilol) 3.125 Mg Tablet 3.125 Mg PO BIDWMEALS Flovent 110MCG Hfa (Fluticasone Propionate) 12 Gm Aer.w.adap 2 Puff IH BID Zolpidem Tartrate 5 Mg Tablet 1 Tab PO QHS PRN Mirapex (Pramipexole Di-Hcl) 0.25 Mg Tablet 1 Tab PO DAILY Famotidine 20 Mg Tablet 20 Mg PO HS Ventolin Hfa Inhaler (Albuterol Sulfate) 18 Gm Hfa.aer.ad 1 Puff INH Q6HRS PRN Levothyroxine Sodium 175 Mcg Tablet 175 Mcg PO DAILYAC Reported Atorvastatin Calcium 80 Mg Tablet 80 Mg PO HS Cetirizine Hcl 10 Mg Tablet 1 Tab PO DAILY Clopidogrel (Clopidogrel Bisulfate) 75 Mg Tablet 1 Tab PO DAILY Magnesium (Magnesium Oxide) 400 Mg Capsule 250 Mg PO BID Tums (Calcium Carbonate) 200 Mg Tab.chew 200 Mg PO PRN Q4HRS PRN Aspirin 81 Mg Tab.chew 1 Tab PO DAILY Diphenhydramine Hcl 50 Mg Capsule 1 Cap PO PRN Calcium Carbonate 500 Mg Tablet 500 Mg PO BID Keppra (Levetiracetam) 1,000 Mg Tablet 1 Tab PO BID Tylenol (Acetaminophen) 325 Mg Tablet 650 Mg PO PRN Q6HRS PRN Allergies Allergies: Coded Allergies: iodine (Verified Allergy, Severe, THROAT SWELLING, 01/16/19) lisinopril (Verified Allergy, Severe, 01/16/19) Fish Containing Products (Verified Allergy, Intermediate, 01/16/19) Penicillins (Verified Allergy, Intermediate, SEE COMMENT, 01/16/19) Tolerates meropenem and Cephalosporins piperacillin (Verified Allergy, Intermediate, Hives, 01/16/19) Tolerates meropenem tazobactam (Verified Allergy, Intermediate, 01/16/19) I S O L A T I O N *CONTACT* (Verified Allergy, Unknown, 02/26/19) mrsa ROS General: YES: Fatigue, Malaise, Appetite PSYCHOLOGICAL ROS: YES: Anxiety, Depression Eyes: Yes Decreased vision Respiratory: YES: Cough, Shortness of breath Cardiovascular: yes Paroxysmal Noc. Dyspnea, yes Edema Genitourinary: YES Other (ANURIA) Musculoskeletal: Yes Muscular Weakness Neurological: Yes Weakness Skin: Yes Dry Skin Physical Exam General: Alert, Oriented X3, Cooperative, mild distress HEENT: Atraumatic, PERRLA Lungs: Other (DECREASED AT BASES) Heart: Regular rate Abdomen: Normal bowel sounds, Soft, No tenderness Extremities: No clubbing Neuro: Normal speech, Cranial nerves 3-12 NL Psych/Mental Status: Mental status NL, Mood NL MUSCULOSKELETAL: No joint tenderness, No deformity, No swelling Vitals VITALS Vital Signs Date Time Temp Pulse Resp B/P (MAP) Pulse Ox O2 Delivery O2 Flow Rate FiO2 03/25/19 15:12 79 03/25/19 15:00 98.3 16 158/83 (108) 98 Room Air 98.3 Labs Labs Laboratory Tests Test 03/24/19 13:16 03/24/19 15:10 03/24/19 20:21 03/25/19 07:10 White Blood Count 4.7 x10^3/uL (4.0-11.0) 4.1 x10^3/uL (4.0-11.0) Red Blood Count 2.86 x10^6/uL (4.30-5.70) 3.06 x10^6/uL (4.30-5.70) Hemoglobin 8.3 g/dL (13.0-17.5) 8.8 g/dL (13.0-17.5) Hematocrit 26.3 % (39.0-53.0) 28.2 % (39.0-53.0) Mean Corpuscular Volume 92 fL (79-100) 92 fL (79-100) Mean Corpuscular Hemoglobin 29 pg (25-35) 29 pg (25-35) Mean Corpuscular Hemoglobin Concent 32 g/dL (31-37) 31 g/dL (31-37) Red Cell Distribution Width 17.9 % (11.5-14.5) 18.7 % (11.5-14.5) Platelet Count 157 x10^3/uL (140-400) 150 x10^3/uL (140-400) Neutrophils (%) (Auto) 67 % (31-73) 63 % (31-73) Lymphocytes (%) (Auto) 17 % (24-48) 18 % (24-48) Monocytes (%) (Auto) 12 % (0-9) 11 % (0-9) Eosinophils (%) (Auto) 5 % (0-3) 5 % (0-3) Basophils (%) (Auto) 0 % (0-3) 3 % (0-3) Neutrophils # (Auto) 3.1 x10^3/uL (1.8-7.7) 2.6 x10^3/uL (1.8-7.7) Lymphocytes # (Auto) 0.8 x10^3/uL (1.0-4.8) 0.7 x10^3/uL (1.0-4.8) Monocytes # (Auto) 0.6 x10^3/uL (0.0-1.1) 0.5 x10^3/uL (0.0-1.1) Eosinophils # (Auto) 0.2 x10^3/uL (0.0-0.7) 0.2 x10^3/uL (0.0-0.7) Basophils # (Auto) 0.0 x10^3/uL (0.0-0.2) 0.1 x10^3/uL (0.0-0.2) Sodium Level 143 mmol/L (136-145) 141 mmol/L (136-145) Potassium Level 5.9 mmol/L (3.5-5.1) 6.0 mmol/L (3.5-5.1) Chloride Level 114 mmol/L (98-107) 113 mmol/L (98-107) Carbon Dioxide Level 21 mmol/L (21-32) 17 mmol/L (21-32) Anion Gap 8 (6-14) 11 (6-14) Blood Urea Nitrogen 58 mg/dL (8-26) 56 mg/dL (8-26) Creatinine 5.2 mg/dL (0.7-1.3) 5.3 mg/dL (0.7-1.3) Estimated GFR (Cockcroft-Gault) 14.1 13.8 BUN/Creatinine Ratio 11 (6-20) 11 (6-20) Glucose Level 101 mg/dL (70-99) 104 mg/dL (70-99) Calcium Level 8.9 mg/dL (8.5-10.1) 9.0 mg/dL (8.5-10.1) Total Bilirubin 0.6 mg/dL (0.2-1.0) 0.5 mg/dL (0.2-1.0) Aspartate Amino Transf (AST/SGOT) 25 U/L (15-37) 24 U/L (15-37) Alanine Aminotransferase (ALT/SGPT) 25 U/L (16-63) 21 U/L (16-63) Alkaline Phosphatase 77 U/L (46-116) 74 U/L (46-116) Troponin I Quantitative 0.033 ng/mL (0.000-0.055) MB-Eqw-W-Type Natriuretic Peptide > 42333 pg/mL (0-124) Total Protein 7.1 g/dL (6.4-8.2) 7.3 g/dL (6.4-8.2) Albumin 2.6 g/dL (3.4-5.0) 2.4 g/dL (3.4-5.0) Albumin/Globulin Ratio 0.6 (1.0-1.7) 0.5 (1.0-1.7) Urine Collection Type Unknown Urine Color Yellow Urine Clarity Clear Urine pH 6.0 Urine Specific Fleming 1.020 Urine Protein >=300 mg/dL (NEG-TRACE) Urine Glucose (UA) 100 mg/dL (NEG) Urine Ketones (Stick) Negative mg/dL (NEG) Urine Blood Trace (NEG) Urine Nitrite Negative (NEG) Urine Bilirubin Negative (NEG) Urine Urobilinogen Dipstick 1.0 mg/dL (0.2 mg/dL) Urine Leukocyte Esterase Negative (NEG) Urine RBC 1-2 /HPF (0-2) Urine WBC Occ /HPF (0-4) Urine Squamous Epithelial Cells Occ /LPF Urine Bacteria Few /HPF (0-FEW) Urine Hyaline Casts Few /HPF Urine Mucus Slight /LPF Glucose (Fingerstick) 89 mg/dL (70-99) Segmented Neutrophils % 72 % (35-66) Lymphocytes % 10 % (24-48) Monocytes % 6 % (0-10) Eosinophils % 8 % (0-5) Basophils % 4 % (0-3) Platelet Estimate Adequate (ADEQUATE) Anisocytosis Slight Test 03/25/19 07:44 Glucose (Fingerstick) 99 mg/dL (70-99) Laboratory Tests Test 03/24/19 20:21 03/25/19 07:10 03/25/19 07:44 Glucose (Fingerstick) 89 mg/dL (70-99) 99 mg/dL (70-99) White Blood Count 4.1 x10^3/uL (4.0-11.0) Red Blood Count 3.06 x10^6/uL (4.30-5.70) Hemoglobin 8.8 g/dL (13.0-17.5) Hematocrit 28.2 % (39.0-53.0) Mean Corpuscular Volume 92 fL (79-100) Mean Corpuscular Hemoglobin 29 pg (25-35) Mean Corpuscular Hemoglobin Concent 31 g/dL (31-37) Red Cell Distribution Width 18.7 % (11.5-14.5) Platelet Count 150 x10^3/uL (140-400) Neutrophils (%) (Auto) 63 % (31-73) Lymphocytes (%) (Auto) 18 % (24-48) Monocytes (%) (Auto) 11 % (0-9) Eosinophils (%) (Auto) 5 % (0-3) Basophils (%) (Auto) 3 % (0-3) Neutrophils # (Auto) 2.6 x10^3/uL (1.8-7.7) Lymphocytes # (Auto) 0.7 x10^3/uL (1.0-4.8) Monocytes # (Auto) 0.5 x10^3/uL (0.0-1.1) Eosinophils # (Auto) 0.2 x10^3/uL (0.0-0.7) Basophils # (Auto) 0.1 x10^3/uL (0.0-0.2) Segmented Neutrophils % 72 % (35-66) Lymphocytes % 10 % (24-48) Monocytes % 6 % (0-10) Eosinophils % 8 % (0-5) Basophils % 4 % (0-3) Platelet Estimate Adequate (ADEQUATE) Anisocytosis Slight Sodium Level 141 mmol/L (136-145) Potassium Level 6.0 mmol/L (3.5-5.1) Chloride Level 113 mmol/L (98-107) Carbon Dioxide Level 17 mmol/L (21-32) Anion Gap 11 (6-14) Blood Urea Nitrogen 56 mg/dL (8-26) Creatinine 5.3 mg/dL (0.7-1.3) Estimated GFR (Cockcroft-Gault) 13.8 BUN/Creatinine Ratio 11 (6-20) Glucose Level 104 mg/dL (70-99) Calcium Level 9.0 mg/dL (8.5-10.1) Total Bilirubin 0.5 mg/dL (0.2-1.0) Aspartate Amino Transf (AST/SGOT) 24 U/L (15-37) Alanine Aminotransferase (ALT/SGPT) 21 U/L (16-63) Alkaline Phosphatase 74 U/L (46-116) Total Protein 7.3 g/dL (6.4-8.2) Albumin 2.4 g/dL (3.4-5.0) Albumin/Globulin Ratio 0.5 (1.0-1.7) Assessment/Plan Assessment/Plan IMP HYPERKALEMIA ANEMIA ESRD NON COMPLIANCE ACUTE ON CHRONIC DIASTOLIC CHF LE WOUND/OSTEO/AMP DM II HTN OBESITY PLAN ARANESP HD TODAY UF TO DW ENCOURAGE COMPLIANCE WOUND CARE NEEDED GRACE VILLEDA MD Mar 25, 2019 15:48
--- NOTE | 2019-03-25 17:19 | NUR ---
Wound Care: Wound care consult for R TMA DFU, pt known to wound care team, non-complaint, multiple no shows in outpatient clinic. Wound cleansed with wound wash, covered with Aquacel ag, abd and Kerlix. No other wound noted on assessment. Wound care to follow up on 04/02.
[2019-03-25 19:05] VITALS: BP 154/67
[2019-03-25] MEDS ORDERED: DARBEPOETIN ALFA 60 MCG/0.3 ML DISP.SYRIN. SQ SCH (21:00)
[2019-03-25] MEDS: ATORVASTATIN CALCIUM 40 MG TABLET. PO SCH (21:14)
[2019-03-25] MEDS: guaiFENesin DM 200MG/20MG 10 ML SYRUP PO SCH (22:13)
[2019-03-25 23:30] VITALS: BP 145/64
[2019-03-26 03:15] VITALS: BP 166/69
[2019-03-26] MEDS: ALBUTEROL SULFATE 2.5 MG/3 ML NEBU. NEB PRN ×4 (03:49→16:21)
[2019-03-26] MEDS: LEVOTHYROXINE 175 MCG TABLET PO SCH (06:21)
[2019-03-26 07:00] VITALS: BP 146/79
[2019-03-26] MEDS: BUDESONIDE 0.5 MG/2 ML NEBU. NEB SCH (07:42)
[2019-03-26 07:56] LABS: HEMATOCRIT 24.6 % (39.0-53.0); HEMOGLOBIN 7.8 g/dL (13.0-17.5); RED BLOOD COUNT 2.73 x10^6/uL (4.30-5.70); RED CELL DISTRIBUTION WIDTH 18.1 % (11.5-14.5); WHITE BLOOD COUNT 5.7 x10^3/uL (4.0-11.0)
[2019-03-26 08:20] LABS: CALCIUM 8.2 mg/dL (8.5-10.1); GFR 19.1; POTASSIUM 4.1 mmol/L (3.5-5.1)
[2019-03-26] MEDS ORDERED: guaiFENesin DM 200MG/20MG 10 ML SYRUP PO SCH (09:00)
[2019-03-26] MEDS: PRAMIPEXOLE 0.25 MG TABLET. PO SCH (09:03)
[2019-03-26] MEDS: MAGNESIUM OXIDE 400 MG TABLET PO SCH (09:03)
[2019-03-26] MEDS: CALCIUM CARBONATE 500 MG TABLET PO SCH (09:03)
[2019-03-26] MEDS: levETIRAcetam 500 MG TABLET PO SCH (09:03)
[2019-03-26] MEDS: ISOSORBIDE MONONITRATE ER 30 MG TAB.ER.24H PO SCH (09:04)
[2019-03-26] MEDS: CLOPIDOGREL BISULFATE 75 MG TABLET PO SCH (09:04)
[2019-03-26] MEDS: ASPIRIN CHEWABLE 81 MG TABLET. PO SCH (09:04)
[2019-03-26] MEDS: CETIRIZINE HCL 10 MG TABLET. PO SCH (09:04)
[2019-03-26] MEDS: guaiFENesin DM 200MG/20MG 10 ML SYRUP PO SCH ×2 (09:05→13:00)
[2019-03-26] MEDS: CARVEDILOL 3.125 MG TABLET. PO SCH (09:05)
--- NOTE | 2019-03-26 09:13 | SNU/HH DC ---
DISCHARGE WITH HOME HEALTH DISCHARGE INFORMATION: Discharge Date: Mar 26, 2019 Final Diagnosis: Problems Medical Problems: (1) Anemia Status: Chronic (2) CHF, acute on chronic Status: Acute (3) Diabetes mellitus type 2 in obese Status: Chronic (4) HTN (hypertension) Status: Chronic (5) Hyperkalemia Status: Acute Condition on Discharge: Stable CODE STATUS: Code Status: Full HOME HEALTH: Face to Face: I certify this patient is under my care and that I, or a nurse practitioner or physician's assistant mechanic working with me, had a face to face encounter that meets the physician face to face encounter requirements with this patient on []. 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 POST DISCHARGE ORDERS: Activity Instructions for Disc: Activity as tolerated Weight Bearing Status after Di: Other, see below Bathing Instructions: Shower-keep dressing dry, No Tub Bath until see DIET AFTER DISCHARGE: Renal Wound/Incision Care: Change dressing CHECKS AFTER DISCHARGE: Checks after discharge: Check blood press - daily, Check blood sugar, ac/hs, Ch manda your Temp as needed, Weigh Yourself Daily FOLLOW-UP: Follow up with: wound care TREATMENT/EQUIPMENT ORDERS: Adaptive Equipment Issued: None CERTIFICATION STATEMENT: Certification Statement: Certification Statement: Based on the above finding, I certify that this patient is confined to the home and needs intermittent mcfp care, physical therapy and/or speech therapy, or continues to need occupational therapy.~ This patient is under my care, and I have initiated the establishment of the plan of care.~ This patient will be followed by myself or a community physician who will periodically review the plan of care. Home Meds Active Scripts Hydrocodone/Acetaminophen (Hydrocodone-Acetamin 5-325 mg) 1 Each Tablet, 1 EACH PO PRN Q6HRS PRN for PAIN, #30 TAB 0 Refills Prov:ANDRAE ROA MD 02/27/19 Isosorbide Mononitrate (ISOSORBIDE MONONITRATE ER) 30 Mg Tab.er.24h, 30 MG PO DAILY for angina for 30 Days, #30 TAB.SR 3 Refills Prov:SUGAR BEAL MD 12/03/18 Carvedilol (COREG ) 3.125 Mg Tablet, 3.125 MG PO BIDWMEALS for heart failure, #60 TAB 4 Refills Prov:SUGAR BEAL MD 12/03/18 Fluticasone Propionate (FLOVENT 110MCG HFA) 12 Gm Aer.w.adap, 2 PUFF IH BID for asthma, #1 INHALER 3 Refills Prov:SUGAR BEAL MD 12/03/18 Zolpidem Tartrate (ZOLPIDEM TARTRATE) 5 Mg Tablet, 1 TAB PO QHS PRN for sleep, #30 TAB 1 Refill Prov:SUGAR BEAL MD 12/03/18 Pramipexole Di-Hcl (MIRAPEX) 0.25 Mg Tablet, 1 TAB PO DAILY for restless leg, #30 TAB 4 Refills Prov:SUGAR BEAL MD 12/03/18 Famotidine (FAMOTIDINE) 20 Mg Tablet, 20 MG PO HS for GERD, #30 TAB 3 Refills Prov:SUGAR BEAL MD 12/03/18 Albuterol Sulfate (VENTOLIN HFA INHALER) 18 Gm Hfa.aer.ad, 1 PUFF INH Q6HRS PRN for SHORTNESS OF BREATH, #1 INHALER 0 Refills Prov:SUGAR BEAL MD 12/03/18 Levothyroxine Sodium (LEVOTHYROXINE SODIUM) 175 Mcg Tablet, 175 MCG PO DAILYAC for THYROID SUPPLEMENT, #30 TAB 4 Refills Prov:SUGAR BEAL MD 12/03/18 Reported Medications Atorvastatin Calcium (ATORVASTATIN CALCIUM) 80 Mg Tablet, 80 MG PO HS for FOR CHOLESTEROL, #30 TAB 0 Refills 02/21/19 Cetirizine Hcl (CETIRIZINE HCL) 10 Mg Tablet, 1 TAB PO DAILY for allergy, #30 TAB 5 Refills 01/16/19 Clopidogrel Bisulfate (CLOPIDOGREL) 75 Mg Tablet, 1 TAB PO DAILY for antiplatelet, #90 TAB 1 Refill 01/16/19 Magnesium Oxide (MAGNESIUM) 400 Mg Capsule, 250 MG PO BID for per med list , CAP 01/02/19 Calcium Carbonate (TUMS) 200 Mg Tab.chew, 200 MG PO PRN Q4HRS PRN for INDIGESTION, TAB.CHEW 12/22/18 Aspirin (ASPIRIN) 81 Mg Tab.chew, 1 TAB PO DAILY for CAD, #30 TAB 3 Refills 12/18/18 Diphenhydramine Hcl (DIPHENHYDRAMINE HCL) 50 Mg Capsule, 1 CAP PO PRN for itc joellen, #30 CAP 1 Refill 12/16/18 Calcium Carbonate (CALCIUM CARBONATE) 500 Mg Tablet, 500 MG PO BID for suppl ement, TAB 06/28/18 Levetiracetam (KEPPRA) 1,000 Mg Tablet, 1 TAB PO BID, #60 TAB 5 Refills 04/14/18 Acetaminophen (TYLENOL) 325 Mg Tablet, 650 MG PO PRN Q6HRS PRN for FEVER, TAB 07/31/17 ANDRAE ROA MD Mar 26, 2019 09:13
--- NOTE | 2019-03-26 10:32 | PDOC3 ---
Discharge Summary Visit Information Date of Admission: Mar 25, 2019 Date of Discharge: Mar 26, 2019 Admitting Diagnosis Comment: acute on chronic diastolic CHF sec top HD noncomp SEC TO TRANSPORTATION ISSUES ESRD, on HD, AOCD prior Osteo infection feet follows with wound care with poor compliance Dm2, prior poor control obese, BMI 38 htn dyslipidemia Final Diagnosis Problems Medical Problems: (1) Anemia Status: Chronic (2) CHF, acute on chronic Status: Acute (3) Diabetes mellitus type 2 in obese Status: Chronic (4) HTN (hypertension) Status: Chronic (5) Hyperkalemia Status: Acute Brief Hospital Course Allergies Allergies Coded Allergies Type Severity Reaction Last Updated Verified iodine Allergy Severe THROAT SWELLING 01/16/19 Yes lisinopril Allergy Severe 01/16/19 Yes Fish Containing Products Allergy Intermediate 01/16/19 Yes Penicillins Allergy Intermediate SEE COMMENT 01/16/19 Yes piperacillin Allergy Intermediate Hives 01/16/19 Yes tazobactam Allergy Intermediate 01/16/19 Yes I S O L A T I O N *CONTACT* Allergy Unknown 02/26/19 Yes Vital Signs Vital Signs Date Time Temp Pulse Resp B/P (MAP) Pulse Ox O2 Delivery O2 Flow Rate FiO2 03/26/19 09:05 82 146/79 03/26/19 07:42 99 Room Air 03/26/19 07:00 97.4 18 97.4 Lab Results Laboratory Tests Test 03/24/19 13:16 03/24/19 15:10 03/24/19 20:21 03/25/19 07:10 White Blood Count 4.7 x10^3/uL (4.0-11.0) 4.1 x10^3/uL (4.0-11.0) Red Blood Count 2.86 x10^6/uL (4.30-5.70) 3.06 x10^6/uL (4.30-5.70) Hemoglobin 8.3 g/dL (13.0-17.5) 8.8 g/dL (13.0-17.5) Hematocrit 26.3 % (39.0-53.0) 28.2 % (39.0-53.0) Mean Corpuscular Volume 92 fL (79-100) 92 fL (79-100) Mean Corpuscular Hemoglobin 29 pg (25-35) 29 pg (25-35) Mean Corpuscular Hemoglobin Concent 32 g/dL (31-37) 31 g/dL (31-37) Red Cell Distribution Width 17.9 % (11.5-14.5) 18.7 % (11.5-14.5) Platelet Count 157 x10^3/uL (140-400) 150 x10^3/uL (140-400) Neutrophils (%) (Auto) 67 % (31-73) 63 % (31-73) Lymphocytes (%) (Auto) 17 % (24-48) 18 % (24-48) Monocytes (%) (Auto) 12 % (0-9) 11 % (0-9) Eosinophils (%) (Auto) 5 % (0-3) 5 % (0-3) Basophils (%) (Auto) 0 % (0-3) 3 % (0-3) Neutrophils # (Auto) 3.1 x10^3/uL (1.8-7.7) 2.6 x10^3/uL (1.8-7.7) Lymphocytes # (Auto) 0.8 x10^3/uL (1.0-4.8) 0.7 x10^3/uL (1.0-4.8) Monocytes # (Auto) 0.6 x10^3/uL (0.0-1.1) 0.5 x10^3/uL (0.0-1.1) Eosinophils # (Auto) 0.2 x10^3/uL (0.0-0.7) 0.2 x10^3/uL (0.0-0.7) Basophils # (Auto) 0.0 x10^3/uL (0.0-0.2) 0.1 x10^3/uL (0.0-0.2) Sodium Level 143 mmol/L (136-145) 141 mmol/L (136-145) Potassium Level 5.9 mmol/L (3.5-5.1) 6.0 mmol/L (3.5-5.1) Chloride Level 114 mmol/L (98-107) 113 mmol/L (98-107) Carbon Dioxide Level 21 mmol/L (21-32) 17 mmol/L (21-32) Anion Gap 8 (6-14) 11 (6-14) Blood Urea Nitrogen 58 mg/dL (8-26) 56 mg/dL (8-26) Creatinine 5.2 mg/dL (0.7-1.3) 5.3 mg/dL (0.7-1.3) Estimated GFR (Cockcroft-Gault) 14.1 13.8 BUN/Creatinine Ratio 11 (6-20) 11 (6-20) Glucose Level 101 mg/dL (70-99) 104 mg/dL (70-99) Calcium Level 8.9 mg/dL (8.5-10.1) 9.0 mg/dL (8.5-10.1) Total Bilirubin 0.6 mg/dL (0.2-1.0) 0.5 mg/dL (0.2-1.0) Aspartate Amino Transf (AST/SGOT) 25 U/L (15-37) 24 U/L (15-37) Alanine Aminotransferase (ALT/SGPT) 25 U/L (16-63) 21 U/L (16-63) Alkaline Phosphatase 77 U/L (46-116) 74 U/L (46-116) Troponin I Quantitative 0.033 ng/mL (0.000-0.055) JW-Tyw-O-Type Natriuretic Peptide > 59795 pg/mL (0-124) Total Protein 7.1 g/dL (6.4-8.2) 7.3 g/dL (6.4-8.2) Albumin 2.6 g/dL (3.4-5.0) 2.4 g/dL (3.4-5.0) Albumin/Globulin Ratio 0.6 (1.0-1.7) 0.5 (1.0-1.7) Urine Collection Type Unknown Urine Color Yellow Urine Clarity Clear Urine pH 6.0 Urine Specific [place] 1.020 Urine Protein >=300 mg/dL (NEG-TRACE) Urine Glucose (UA) 100 mg/dL (NEG) Urine Ketones (Stick) Negative mg/dL (NEG) Urine Blood Trace (NEG) Urine Nitrite Negative (NEG) Urine Bilirubin Negative (NEG) Urine Urobilinogen Dipstick 1.0 mg/dL (0.2 mg/dL) Urine Leukocyte Esterase Negative (NEG) Urine RBC 1-2 /HPF (0-2) Urine WBC Occ /HPF (0-4) Urine Squamous Epithelial Cells Occ /LPF Urine Bacteria Few /HPF (0-FEW) Urine Hyaline Casts Few /HPF Urine Mucus Slight /LPF Glucose (Fingerstick) 89 mg/dL (70-99) Segmented Neutrophils % 72 % (35-66) Lymphocytes % 10 % (24-48) Monocytes % 6 % (0-10) Eosinophils % 8 % (0-5) Basophils % 4 % (0-3) Platelet Estimate Adequate (ADEQUATE) Anisocytosis Slight Test 03/25/19 07:44 03/25/19 16:15 03/25/19 20:35 03/26/19 06:35 Glucose (Fingerstick) 99 mg/dL (70-99) 115 mg/dL (70-99) 133 mg/dL (70-99) White Blood Count 5.7 x10^3/uL (4.0-11.0) Red Blood Count 2.73 x10^6/uL (4.30-5.70) Hemoglobin 7.8 g/dL (13.0-17.5) Hematocrit 24.6 % (39.0-53.0) Mean Corpuscular Volume 90 fL (79-100) Mean Corpuscular Hemoglobin 29 pg (25-35) Mean Corpuscular Hemoglobin Concent 32 g/dL (31-37) Red Cell Distribution Width 18.1 % (11.5-14.5) Platelet Count 132 x10^3/uL (140-400) Sodium Level 142 mmol/L (136-145) Potassium Level 4.1 mmol/L (3.5-5.1) Chloride Level 107 mmol/L (98-107) Carbon Dioxide Level 28 mmol/L (21-32) Anion Gap 7 (6-14) Blood Urea Nitrogen 30 mg/dL (8-26) Creatinine 4.0 mg/dL (0.7-1.3) Estimated GFR (Cockcroft-Gault) 19.1 Glucose Level 144 mg/dL (70-99) Calcium Level 8.2 mg/dL (8.5-10.1) Test 03/26/19 08:03 Glucose (Fingerstick) 133 mg/dL (70-99) Laboratory Tests Test 03/25/19 16:15 03/25/19 20:35 03/26/19 06:35 8/14/19 08:03 Glucose (Fingerstick) 115 mg/dL (70-99) 133 mg/dL (70-99) 133 mg/dL (70-99) White Blood Count 5.7 x10^3/uL (4.0-11.0) Red Blood Count 2.73 x10^6/uL (4.30-5.70) Hemoglobin 7.8 g/dL (13.0-17.5) Hematocrit 24.6 % (39.0-53.0) Mean Corpuscular Volume 90 fL (79-100) Mean Corpuscular Hemoglobin 29 pg (25-35) Mean Corpuscular Hemoglobin Concent 32 g/dL (31-37) Red Cell Distribution Width 18.1 % (11.5-14.5) Platelet Count 132 x10^3/uL (140-400) Sodium Level 142 mmol/L (136-145) Potassium Level 4.1 mmol/L (3.5-5.1) Chloride Level 107 mmol/L (98-107) Carbon Dioxide Level 28 mmol/L (21-32) Anion Gap 7 (6-14) Blood Urea Nitrogen 30 mg/dL (8-26) Creatinine 4.0 mg/dL (0.7-1.3) Estimated GFR (Cockcroft-Gault) 19.1 Glucose Level 144 mg/dL (70-99) Calcium Level 8.2 mg/dL (8.5-10.1) Brief Hospital Course 53 AA MALE ADMITTED IN FLUID OVERLOAD BEC LAST HD WAS 2 MOS AGO, HE ONLY COMES HERE IN HOSP WHEN SOA BEC OF OVERLOAD FROM MISSING HD, HE IS LEFT LEG AMPUTEE WI TH PROSTHETIC, HE LIVES WITH HIS WHO HAS CANCER WHO IS UNABLE TO HELP HIM GET DOWN FROM HIS HOME TO MEET THE HD TRANSPORTATION SILVIO TO GET HIM TO [facility] - THAT'S THE PROBLEM. HE ALSO FOLLOWS Q MONDAYS WITH WOOUND CARE PMG,. 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 - THATS THE ROOT CAUSE OF HIS READMISSION HE DOES NOT WANT SNU - HE LAUGHS AT THE IDEA, HE USED TO WORK AT [employer] NO CHANGE IN MEDS FROM [facility] TODAY - TIME 35 MINS Discharge Information Condition at Discharge: Improved, Stable Disposition/Orders: D/C to Home w/ HH Scheduled Aspirin (Aspirin) 81 Mg Tab.chew, 1 TAB PO DAILY for CAD, #30 Ref 3 (Reported) Entered as Reported by: MARIO BUCIO on 12/18/18 1316 Last Action: Continued on 03/24/191655 by SUGAR BEAL Atorvastatin Calcium (Atorvastatin Calcium) 80 Mg Tablet, 80 MG PO HS for FOR CHOLESTEROL, #30 Ref 0 (Reported) Entered as Reported by: FELIBERTO RICO on 02/21/192030 Last Action: Converted on 03/24/191655 by SUGAR BEAL Calcium Carbonate (Calcium Carbonate) 500 Mg Tablet, 500 MG PO BID for supplement, (Reported) Entered as Reported by: Daron Shipley on 06/28/18 115 Last Action: Continued on 03/24/191655 by SUGAR BEAL Carvedilol (Coreg ) 3.125 Mg Tablet, 3.125 MG PO BIDWMEALS for heart failure, #60 Ref 4 Prescribed by: SUGAR BEAL on 12/03/181516 Last Action: Continued on 03/24/191655 by SUGAR BEAL Cetirizine Hcl (Cetirizine Hcl) 10 Mg Tablet, 1 TAB PO DAILY for allergy, #30 Ref 5 (Reported) Entered as Reported by: LUIS HADDAD on 01/16/192234 Last Action: Continued on 03/24/191655 by SUGAR BEAL Clopidogrel Bisulfate (Clopidogrel) 75 Mg Tablet, 1 TAB PO DAILY for antiplatelet, #90 Ref 1 (Reported) Entered as Reported by: LUIS HADDAD on 01/16/192234 Last Action: Continued on 03/24/191655 by SUGAR BEAL Diphenhydramine Hcl (Diphenhydramine Hcl) 50 Mg Capsule, 1 CAP PO PRN for itching, #30 Ref 1 (Reported) Entered as Reported by: Funmilayo Pardo on 12/16/180 Last Action: Converted on 03/24/191655 by SUGAR BEAL Famotidine (Famotidine) 20 Mg Tablet, 20 MG PO HS for GERD, #30 Ref 3 Prescribed by: SUGAR BEAL on 12/03/181516 Last Action: Continued on 03/24/191655 by SUGAR BEAL Fluticasone Propionate (Flovent 110MCG Hfa) 12 Gm Aer.w.adap, 2 PUFF IH BID for asthma, #1 Ref 3 Prescribed by: SUGAR BEAL on 12/03/181516 Last Action: Converted on 03/24/191655 by SUGAR BEAL Isosorbide Mononitrate (Isosorbide Mononitrate Er) 30 Mg Tab.er.24h, 30 MG PO DAILY for angina for 30 Days, #30 Ref 3 Prescribed by: SUGAR BEAL on 12/03/181516 Last Action: Continued on 03/24/191655 by SUGAR BEAL Levetiracetam (Keppra) 1,000 Mg Tablet, 1 TAB PO BID, #60 Ref 5 (Reported) Entered as Reported by: JACKELIN TEIXEIRA on 04/14/18 1359 Last Action: Converted on 03/24/191655 by SUGAR BEAL Levothyroxine Sodium (Levothyroxine Sodium) 175 Mcg Tablet, 175 MCG PO DAILYAC for THYROID SUPPLEMENT, #30 Ref 4 Prescribed by: SUGAR BEAL on 12/03/181509 Last Action: Continued on 03/24/191655 by SUGAR BEAL Magnesium Oxide (Magnesium) 400 Mg Capsule, 250 MG PO BID for per med list , (Reported) Entered as Reported by: BRITTANY LARIOS on 01/02/19 1558 Last Action: Converted on 03/24/191655 by SUGAR BEAL Pramipexole Di-Hcl (Mirapex) 0.25 Mg Tablet, 1 TAB PO DAILY for restless leg, #30 Ref 4 Prescribed by: SUGAR BEAL on 12/03/181516 Last Action: Continued on 03/24/191655 by SUGAR BEAL Scheduled PRN Acetaminophen (Tylenol) 325 Mg Tablet, 650 MG PO PRN Q6HRS PRN for FEVER, (Re ported) Entered as Reported by: DEMLA BOLDEN on 07/31/17 1729 Last Action: Continued on 03/24/191655 by SUGAR BEAL Albuterol Sulfate (Ventolin Hfa Inhaler) 18 Gm Hfa.aer.ad, 1 PUFF INH Q6HRS PRN for SHORTNESS OF BREATH, #1 Ref 0 Prescribed by: SUGAR BEAL on 12/03/181516 Last Action: Converted on 03/24/191655 by SUGAR BEAL Calcium Carbonate (Tums) 200 Mg Tab.chew, 200 MG PO PRN Q4HRS PRN for INDIGESTION, (Reported) Entered as Reported by: KRUNAL ZEPEDA RN on 12/22/18 2191 Last Action: Continued on 03/24/191655 by SUGAR BEAL Hydrocodone/Acetaminophen (Hydrocodone-Acetamin 5-325 mg) 1 Each Tablet, 1 EACH PO PRN Q6HRS PRN for PAIN, #30 Ref 0 Prescribed by: ANDRAE ROA on 02/27/19831 Last Action: Continued on 03/24/191655 by SUGAR BEAL Zolpidem Tartrate (Zolpidem Tartrate) 5 Mg Tablet, 1 TAB PO QHS PRN for sleep, #30 Ref 1 Prescribed by: SUGAR BEAL on 12/03/181516 Last Action: Continued on 03/24/191655 by ANDRAE CHACON MD Mar 26, 2019 10:32
[2019-03-26 11:00] VITALS: BP 144/65
--- NOTE | 2019-03-26 11:31 | PDOC ---
Renal-Progress Notes Subjective Notes Notes FEELING BETTER History of Present Illness Hx of present illness STABLE Vitals Vitals Vital Signs Date Time Temp Pulse Resp B/P (MAP) Pulse Ox O2 Delivery O2 Flow Rate FiO2 03/26/19 09:05 82 146/79 03/26/19 07:42 99 Room Air 03/26/19 07:00 97.4 18 97.4 Weight Weight [ ] I.O. Intake and Output Intake and Output 03/26/19 06:59 Intake Total 650 ml Output Total 250 ml Balance 400 ml Intake Oral 650 ml Output Urine Total 250 ml Labs Labs Laboratory Tests Test 03/25/19 16:15 03/25/19 20:35 03/26/19 06:35 03/26/19 08:03 Glucose (Fingerstick) 115 mg/dL (70-99) 133 mg/dL (70-99) 133 mg/dL (70-99) White Blood Count 5.7 x10^3/uL (4.0-11.0) Red Blood Count 2.73 x10^6/uL (4.30-5.70) Hemoglobin 7.8 g/dL (13.0-17.5) Hematocrit 24.6 % (39.0-53.0) Mean Corpuscular Volume 90 fL (79-100) Mean Corpuscular Hemoglobin 29 pg (25-35) Mean Corpuscular Hemoglobin Concent 32 g/dL (31-37) Red Cell Distribution Width 18.1 % (11.5-14.5) Platelet Count 132 x10^3/uL (140-400) Sodium Level 142 mmol/L (136-145) Potassium Level 4.1 mmol/L (3.5-5.1) Chloride Level 107 mmol/L (98-107) Carbon Dioxide Level 28 mmol/L (21-32) Anion Gap 7 (6-14) Blood Urea Nitrogen 30 mg/dL (8-26) Creatinine 4.0 mg/dL (0.7-1.3) Estimated GFR (Cockcroft-Gault) 19.1 Glucose Level 144 mg/dL (70-99) Calcium Level 8.2 mg/dL (8.5-10.1) Physical Exam Musculoskeletal: Osteoarthritis Assessment Assessment HYPERKALEMIA-RESOLVED ANEMIA ESRD NON COMPLIANCE ACUTE ON CHRONIC DIASTOLIC CHF LE WOUND/OSTEO/AMP DM II HTN OBESITY PLAN ARANESP HD TODAY AGAIN UF TO DW ENCOURAGE COMPLIANCE WOUND CARE NEEDED OK TO D/C OP HD ARRANGED GRACE VILLEDA MD Mar 26, 2019 11:31
--- NOTE | 2019-03-26 12:09 | NUR ---
RONA following pt for dc planning. home health resumption orders phoned and faxed to [facility], phone: [phone], fax: [phone]. RONA also spoke with Álvaro at [facility], pt still has chair time on TT at 1530 and they requested for pt to show up tomorrow at 1530. RONA arranged transport via [employer] between [id number]. Discussed with RN. Addendum: 03/26/19 at 1633 by AG REA Transport changed to 2100.
[2019-03-26 15:00] VITALS: BP 134/64
[2019-03-26] MEDS ORDERED: LIDOCAINE 1% PF 2 ML VIAL. ONE (15:48)
[2019-03-26] MEDS ORDERED: FAMOTIDINE 20 MG TABLET. PO SCH (21:00)
--- NOTE | 2019-03-26 21:00 | NUR ---
Discharge Note: LACIE WILKES Discharge instructions and discharge home medications reviewed with Patient and a copy given. All questions have been answered and understanding verbalized. The following instructions and handouts were given: follow up with PCP, medications, dialysis diet Discontinued lines and drains: peripheral IV, catheter intact. Patient discharged to home via transportation service
[2019-03-26] MEDS ORDERED: IV NORMAL SALINE 1000ML BAG 1,000 ML IV PRN (21:31)
[2019-03-26] MEDS ORDERED: DIALYSIS PATIENT. MC PRN ×2 (21:45)
== END 2019-03-26 21:00 | disposition home or self-care (01) | DRG 291 ==
LOC: ER 12:30 → ED HOLD 16:02 → 2 NORTH 20:15 → OBSVTOIN 03-25 10:15
PROVIDERS: ADMIT Internal Medicine; ATTEND Internal Medicine
PROC: 5A1D70Z Performance of Urinary Filtration, Intermittent, Less than 6 Hours Per Day (ICD-10-PCS; principal; 2019-03-25)
PROC: 5A1D70Z Performance of Urinary Filtration, Intermittent, Less than 6 Hours Per Day (ICD-10-PCS; 2019-03-26)
DX: I13.2 Hypertensive heart and chronic kidney disease with heart failure and with stage 5 chronic kidney disease, or end stage renal disease (principal); I50.33 Acute on chronic diastolic (congestive) heart failure; N18.6 End stage renal disease; D63.8 Anemia in other chronic diseases classified elsewhere; E03.9 Hypothyroidism, unspecified; E11.22 Type 2 diabetes mellitus with diabetic chronic kidney disease; E66.9 Obesity, unspecified; E78.5 Hyperlipidemia, unspecified; E87.5 Hyperkalemia; F03.90 Unspecified dementia, unspecified severity, without behavioral disturbance, psychotic disturbance, mood disturbance, and anxiety; G25.81 Restless legs syndrome; I48.91 Unspecified atrial fibrillation; J44.9 Chronic obstructive pulmonary disease, unspecified; K21.9 Gastro-esophageal reflux disease without esophagitis; M06.9 Rheumatoid arthritis, unspecified; Z96.659 Presence of unspecified artificial knee joint; Z68.38 Body mass index [BMI] 38.0-38.9, adult; Z79.02 Long term (current) use of antithrombotics/antiplatelets; Z79.51 Long term (current) use of inhaled steroids; Z79.82 Long term (current) use of aspirin; Z79.899 Other long term (current) drug therapy; Z82.49 Family history of ischemic heart disease and other diseases of the circulatory system; Z86.73 Personal history of transient ischemic attack (TIA), and cerebral infarction without residual deficits; Z89.512 Acquired absence of left leg below knee; Z91.19 Patient's noncompliance with other medical treatment and regimen; Z83.3 Family history of diabetes mellitus; Z95.5 Presence of coronary angioplasty implant and graft; Z99.2 Dependence on renal dialysis; E21.3 Hyperparathyroidism, unspecified; F32.9 Major depressive disorder, single episode, unspecified; F41.9 Anxiety disorder, unspecified; M19.90 Unspecified osteoarthritis, unspecified site; Z88.8 Allergy status to other drugs, medicaments and biological substances; Z88.0 Allergy status to penicillin; Z91.013 Allergy to seafood
CPT/HCPCS: 36415; 71045; 80048; 80053; 81001; 82962; 83880; 84484; 85007; 85025; 85027; 93005; 94640; 94760; 96374; G0378; G0379; J0882; J1940; J7613; J7620; J7626; Q0163; 99285-25

== ENCOUNTER 2019-06-04 18:25 | Inpatient (IN) | payer OTHER, MEDICAID ==
[~2019-06-04] VITALS: Ht 198.1 cm; Wt 154.2 kg
[~2019-06-04 18:25] MED LIST changes: -LINE600T PO; +LINE600T12 PO; -MERO500V IV; +MERO500V22 IV; -MIDO5TAB PO; +MIDO5TAB4 PO; +MORP-16 PO; -MORP30TA3 PO; -MORP60TA PO; +MORP60TA60 PO; -NITR0.4T SL; +NITR0.4T24 SL
[2019-06-04 18:54] LABS: BASO # 0.1 x10^3/uL (0.0-0.2); BASO % 2 % (0-3); EOS # 0.1 x10^3/uL (0.0-0.7); EOS % 1 % (0-3); HEMATOCRIT 33.9 % (39.0-53.0); HEMOGLOBIN 10.7 g/dL (13.0-17.5); LYMPH # 0.5 x10^3/uL (1.0-4.8); LYMPH % 8 % (24-48); MEAN CORPUSCULAR HEMOGLOBIN 28 pg (25-35); MEAN CORPUSCULAR HGB CONC 32 g/dL (31-37); MEAN CORPUSCULAR VOLUME 88 fL (79-100); MONO # 0.5 x10^3/uL (0.0-1.1); MONO % 7 % (0-9); NEUT # 5.7 x10^3/uL (1.8-7.7); NEUT % 82 % (31-73); PLATELET COUNT 140 x10^3/uL (140-400); RED BLOOD COUNT 3.85 x10^6/uL (4.30-5.70); RED CELL DISTRIBUTION WIDTH 17.5 % (11.5-14.5); WHITE BLOOD COUNT 6.9 x10^3/uL (4.0-11.0)
[2019-06-04] MEDS ORDERED: ASPIRIN CHEWABLE 81 MG TABLET. PO ONE ×2 (19:00→21:30)
[2019-06-04] MEDS ORDERED: NITROGLYCERIN PREMIX 250 ML IV ONE (19:30)
--- NOTE | 2019-06-04 19:37 | PHYS DOC ---
Past Medical History Past Medical History: Asthma, CVA, Diabetes-Type II, Hypertension, [place], Pneumonia, Renal Failure, Seizure, Other Additional Past Medical Histor: 8 MIs, 8 CVAs, multiple stents Past Surgical History: Angioplasty, Other Additional Past Surgical Histo: L FA HD SHUNT,TOE AMPUT,R ARM,RIGHT ARM FX,SCROTAL SX,HEART STENT Alcohol Use: None Drug Use: None Adult General Chief Complaint Chief Complaint: CHEST PAIN HPI HPI Patient is a 53 year old male who presents to the due to chief complaint of shortness of breath and chest pain. Patient states that he's had the pain for the last 1 week. Patient also states that he has not been to dialysis at least for 1 month as he has issues with transportation. Patient states that his pain is in the middle of his chest with no radiation. Pain is constant. Review of Systems Review of Systems Constitutional: Denies fever or chills HENT: Denies nasal congestion, sore throat, sinus tenderness Respiratory: Complains of shortness of breath Cardiovascular: Complains of chest pain GI: Denies abdominal pain, nausea, vomiting or diarrhea : Denies dysuria or hematuria Musculoskeletal: Denies back pain or joint pain Skin: Denies rash or skin lesions Neurologic: Denies headache, focal weakness or sensory changes Complete systems were reviewed and found to be within normal limits, except as documented in this note. Current Medications Current Medications Current Medications Medications (Trade) Dose Ordered Sig/[place] Start Time Stop Time Status Last Admin Dose Admin Aspirin (Children'S Aspirin) 324 mg 1X ONCE 06/04/19 21:30 06/04/19 21:31 DC 06/04/19 21:33 324 MG Nitroglycerin/ Dextrose 250 ml @ 0 mls/hr 1X ONCE 06/04/19 19:30 06/04/19 19:31 DC 06/04/19 19:34 1.5 MLS/HR Allergies Allergies Allergies Coded Allergies Type Severity Reaction Last Updated Verified iodine Allergy Severe THROAT SWELLING 01/16/19 Yes lisinopril Allergy Severe 01/16/19 Yes Fish Containing Products Allergy Intermediate 01/16/19 Yes Penicillins Allergy Intermediate SEE COMMENT 01/16/19 Yes piperacillin Allergy Intermediate Hives 01/16/19 Yes tazobactam Allergy Intermediate 01/16/19 Yes I S O L A T I O N *CONTACT* Allergy Unknown 7/17/19 Yes Physical Exam Physical Exam Constitutional: Well developed, well nourished, no acute distress, non-toxic appearance. HENT: Normocephalic, atraumatic, normocephalic Eyes: PERRL, EOMI Neck: Normal range of motion, no tenderness, supple Cardiovascular:Heart rate regular rhythm, no murmur Resp: Rales bilaterally Abdomen: Soft, no tenderness, no distension Back: No tenderness, no CVA tenderness. Extremities: Patient has left BK Neurologic: Alert and oriented X 3, normal motor function, normal sensory function, no focal deficits noted. Psychologic: Affect normal, judgement normal, mood normal. Current Patient Data Vital Signs Vital Signs Date Time Temp Pulse Resp B/P (MAP) Pulse Ox O2 Delivery O2 Flow Rate FiO2 06/04/19 21:45 90 24 159/76 (103) 97 Room Air 06/04/19 18:30 98.8 98.8 Lab Values Laboratory Tests Test 06/04/19 18:37 06/04/19 19:30 White Blood Count 6.9 x10^3/uL (4.0-11.0) Red Blood Count 3.85 x10^6/uL (4.30-5.70) L Hemoglobin 10.7 g/dL (13.0-17.5) L Hematocrit 33.9 % (39.0-53.0) L Mean Corpuscular Volume 88 fL (79-100) Mean Corpuscular Hemoglobin 28 pg (25-35) Mean Corpuscular Hemoglobin Concent 32 g/dL (31-37) Red Cell Distribution Width 17.5 % (11.5-14.5) H Platelet Count 140 x10^3/uL (140-400) Neutrophils (%) (Auto) 82 % (31-73) H Lymphocytes (%) (Auto) 8 % (24-48) L Monocytes (%) (Auto) 7 % (0-9) Eosinophils (%) (Auto) 1 % (0-3) Basophils (%) (Auto) 2 % (0-3) Neutrophils # (Auto) 5.7 x10^3/uL (1.8-7.7) Lymphocytes # (Auto) 0.5 x10^3/uL (1.0-4.8) L Monocytes # (Auto) 0.5 x10^3/uL (0.0-1.1) Eosinophils # (Auto) 0.1 x10^3/uL (0.0-0.7) Basophils # (Auto) 0.1 x10^3/uL (0.0-0.2) Sodium Level 144 mmol/L (136-145) Potassium Level 4.7 mmol/L (3.5-5.1) Chloride Level 109 mmol/L (98-107) H Carbon Dioxide Level 24 mmol/L (21-32) Anion Gap 11 (6-14) Blood Urea Nitrogen 60 mg/dL (8-26) H Creatinine 6.0 mg/dL (0.7-1.3) H Estimated GFR (Cockcroft-Gault) 12.0 BUN/Creatinine Ratio 10 (6-20) Glucose Level 82 mg/dL (70-99) Calcium Level 8.9 mg/dL (8.5-10.1) Total Bilirubin 0.7 mg/dL (0.2-1.0) Aspartate Amino Transferase (AST) 20 U/L (15-37) Alanine Aminotransferase (ALT) 11 U/L (16-63) L Alkaline Phosphatase 75 U/L (46-116) Troponin I Quantitative 0.058 ng/mL (0.000-0.055) ER-Lft-M-Type Natriuretic Peptide > 38357 pg/mL (0-124) H Total Protein 7.0 g/dL (6.4-8.2) Albumin 2.7 g/dL (3.4-5.0) L Albumin/Globulin Ratio 0.6 (1.0-1.7) L Lipase 37 U/L (73-393) L Laboratory Tests 06/04/19 18:37 Laboratory Tests 06/04/19 19:30 EKG EKG EKG interpretation: HR: 92 Sinus rhythm Regular intervals normal axis Nonspecific ST changes No STEMI [] Radiology/Procedures Radiology/Procedures Ordered chest x-ray Impressions: His x-ray shows pulmonary neurovascular congestion Course & Med Decision Making Course & Med Decision Making Pertinent Labs and Imaging studies reviewed. (See chart for details) Ordered Labs, chest x-ray, EKG, aspirin. Patient's presenting blood pressure was 222/7. Patient started on a nitro drip. EKG does not show any acute changes. Chest x-ray shows patient has pulmonary vascular congestion secondary to her not going to dialysis for 1 month. Potassium is within normal limits. Creatinine is 6. The blood pressure is now 157/70. Nitro drip is at 35 mcg. Discussed results and plan of care with patient. Patient will be admitted for further evaluation and treatment and possible dialysis. Discussed case with Dr. Guerin who accepts admission. Dragon Disclaimer Dragon Disclaimer This electronic medical record was generated, in whole or in part, using a voice recognition dictation system. Departure Departure Impression: Primary Impression: Dyspnea Additional Impressions: ESRD (end stage renal disease) Acute chest pain Disposition: 09 ADMITTED INPATIENT Referrals: MARIA ISABEL LOPEZ DO (PCP) Problem Qualifiers SONIA PADILLA DO Jun 04, 2019 19:37
[2019-06-04 19:55] LABS: CALCIUM 8.9 mg/dL (8.5-10.1); POTASSIUM 4.7 mmol/L (3.5-5.1)
[2019-06-04 19:58] LABS: ALBUMIN 2.7 g/dL (3.4-5.0); ALBUMIN/GLOBULIN RATIO 0.6 (1.0-1.7); TOTAL BILIRUBIN 0.7 mg/dL (0.2-1.0)
[2019-06-04] MEDS ORDERED: ONDANSETRON PF 4 MG/2 ML VIAL. IV PRN (22:30)
--- NOTE | 2019-06-04 23:19 | RAD ---
AP portable chest radiograph 06/04/2019 Clinical History: Shortness of breath. An AP erect portable digital radiograph of the chest was obtained. Comparison study is dated 03/24/2019. The cardiac silhouette is mildly enlarged. The thoracic aorta is mildly tortuous. No acute pulmonary infiltrate is seen. No pleural effusion or pneumothorax is noted. Stents overlie the brachiocephalic veins bilaterally. No acute pulmonary infiltrate is seen. No pleural effusion or pneumothorax is noted. The osseous structures are unchanged. Impression: No acute abnormality is seen. Electronically signed by: Ceferino Burnette MD (06/04/2019 11:16 PM) [facility]
[2019-06-04 23:43] VITALS: BP 208/105
[2019-06-05 02:59] VITALS: BP 179/80
[2019-06-05] MEDS ORDERED: ACETAMINOPHEN 325 MG TABLET. PO PRN ×2 (03:15→11:00)
--- NOTE | 2019-06-05 05:53 | NUR ---
Patient arrived to unit accompanied by ED nurse. Resting comfortably on RA. VS checked-Bp elevated, Assessment complete. Patient on Nitro Gtt. No complaints of pain at this time. Patient states that he is currently a patient at the wound care center for recent toe amputations- Wound care consulted. Patient stated that he hasn't been to dialysis in over a month since he doesn't have transportation to get there. Bed in low locked position, call light in reach. Will continue to monitor.
--- NOTE | 2019-06-05 06:54 | EKG ---
[facility] [address] [place] [address] Test Date: 2019-06-04 Test Time: 18:33:59 Pat Name: BHAVYA WILKES Department: Room: 252 1 Gender: M Burr Bench Hand: : 1965 Requested By: SONIA PADILLA Order Number: [id number] Reading MD: Avni Kaur MD Measurements Intervals [place] Rate: 92 P: 51 MT: 156 QRS: -38 QRSD: 88 T: 71 QT: 370 QTc: 462 Interpretive Statements SINUS RHYTHM NON-SPECIFIC ST/T CHANGES Electronically Signed On 06-18-2019 8:51:28 BUILDING [employer]IST by Avni Kaur MD
[2019-06-05 07:00] VITALS: BP 173/72
--- NOTE | 2019-06-05 07:29 | PDOC1 ---
History and Physical Date of Admission Date of Admission DATE: 06/05/19 TIME: 07:29 Identification/Chief Complaint Chief Complaint SEEN IN ER , 53 year old male who presents to the due to chief complaint of shortness of breath and chest pain. Patient states that he's had the pain for the last 1 week. Patient also states that he has not been to dialysis at least for 1 month as he has issues with transportation non compliant with HD- Travel goes to pick him up on his dialysis days and he refuses to go.BECAUSE THEY COME TO THE WRONG SIDE OF HIS APARTMENT BUILDING WHERE HE CANNO SEE THEM Past Medical History Past Medical History Past Medical History Past Medical History Past Medical History: Asthma, CVA, Diabetes-Type II, Hypertension, [place], Pneumonia, Renal Failure, Seizure, Other Additional Past Medical Histor: 8 MIs, 8 CVAs, multiple stents Past Surgical History: Angioplasty, Other Additional Past Surgical Histo: L FA HD SHUNT,TOE AMPUT,R ARM,RIGHT ARM FX,SCROTAL SX,HEART STENT Alcohol Use: None Drug Use: None fhx obesity Cardiovascular: AFIB, CAD, CHF, HTN, [place], Hyperlipidemia, Other Pulmonary: COPD CENTRAL NERVOUS SYSTEM: Dementia, Periperal neuropathy, Seizure, TIA GI: Diverticulosis, Other Heme/Onc: Anemia NOS Hepatobiliary: No pertinent hx Psych: Anxiety, Depression Musculoskeletal: Osteoarthritis Rheumatologic: Rheumatoid arthritis Infectious disease: No pertinent hx Renal/: Chronic renal failure Endocrine: Diabetes, Hypothyroidism, Hyperparathyroidism Past Surgical History Past Surgical History: Cataract Removal, Total knee replacement, Other Family History Family History: Diabetes, Hypertension Family History: Parent Social History Smoke: No ALCOHOL: none Drugs: None Current Problem List Problem List Problems Medical Problems: (1) Dyspnea Status: Acute Current Medications Current Medications Current Medications Aspirin (Children'S Aspirin) 324 mg 1X ONCE PO ; Start 06/04/19 at 19:00; Stop 06/04/19 at 19:01; Status DC Nitroglycerin/ Dextrose 250 ml @ 0 mls/hr 1X ONCE IV Last administered on 06/04/19at 19:34; Start 06/04/19 at 19:30; Stop 06/04/19 at 19:31; Status DC Aspirin (Children'S Aspirin) 324 mg 1X ONCE PO Last administered on 06/04/19at 21:33; Start 06/04/19 at 21:30; Stop 06/04/19 at 21:31; Status DC Ondansetron HCl (Zofran) 4 mg PRN Q8HRS PRN IV NAUSEA/VOMITING 1ST CHOICE; St art 06/04/19 at 22:30; Stop 06/05/19 at 22:29 Acetaminophen (Tylenol) 650 mg PRN Q6HRS PRN PO MILD PAIN 1-3; Start 06/05/19 at 03:15 Active Scripts Active Hydrocodone-Acetamin 5-325 mg (Hydrocodone/Acetaminophen) 1 Each Tablet 1 Each PO PRN Q6HRS PRN Isosorbide Mononitrate Er (Isosorbide Mononitrate) 30 Mg Tab.er.24h 30 Mg PO DAILY 30 Days Coreg (Carvedilol) 3.125 Mg Tablet 3.125 Mg PO BIDWMEALS Flovent 110MCG Hfa (Fluticasone Propionate) 12 Gm Aer.w.adap 2 Puff IH BID Zolpidem Tartrate 5 Mg Tablet 1 Tab PO QHS PRN Mirapex (Pramipexole Di-Hcl) 0.25 Mg Tablet 1 Tab PO DAILY Famotidine 20 Mg Tablet 20 Mg PO HS Ventolin Hfa Inhaler (Albuterol Sulfate) 18 Gm Hfa.aer.ad 1 Puff INH Q6HRS PRN Levothyroxine Sodium 175 Mcg Tablet 175 Mcg PO DAILYAC Reported Atorvastatin Calcium 80 Mg Tablet 80 Mg PO HS Cetirizine Hcl 10 Mg Tablet 1 Tab PO DAILY Clopidogrel (Clopidogrel Bisulfate) 75 Mg Tablet 1 Tab PO DAILY Magnesium (Magnesium Oxide) 400 Mg Capsule 250 Mg PO BID Tums (Calcium Carbonate) 200 Mg Tab.chew 200 Mg PO PRN Q4HRS PRN Aspirin 81 Mg Tab.chew 1 Tab PO DAILY Diphenhydramine Hcl 50 Mg Capsule 1 Cap PO PRN Calcium Carbonate 500 Mg Tablet 500 Mg PO BID Keppra (Levetiracetam) 1,000 Mg Tablet 1 Tab PO BID Tylenol (Acetaminophen) 325 Mg Tablet 650 Mg PO PRN Q6HRS PRN Allergies Allergies: Coded Allergies: iodine (Verified Allergy, Severe, THROAT SWELLING, 01/16/19) lisinopril (Verified Allergy, Severe, 01/16/19) Fish Containing Products (Verified Allergy, Intermediate, 01/16/19) Penicillins (Verified Allergy, Intermediate, SEE COMMENT, 01/16/19) Tolerates meropenem and Cephalosporins piperacillin (Verified Allergy, Intermediate, Hives, 01/16/19) Tolerates meropenem tazobactam (Verified Allergy, Intermediate, 01/16/19) I S O L A T I O N *CONTACT* (Verified Allergy, Unknown, 02/26/19) mrsa ROS Review of System Review of Systems Review of Systems Constitutional: Denies fever or chills HENT: Denies nasal congestion, sore throat, sinus tenderness Respiratory: Complains of shortness of breath Cardiovascular: Complains of chest pain GI: Denies abdominal pain, nausea, vomiting or diarrhea : Denies dysuria or hematuria Musculoskeletal: Denies back pain or joint pain Skin: Denies rash or skin lesions Neurologic: Denies headache, focal weakness or sensory changes 14 PT systems were reviewed and found to be within normal limits, except as documented Hematological and Lymphatic: No: Bleeding Problems, Blood Clots, Blood Transfusions, Brusing, Night Sweats, Pallor, Swollen Lymph Nodes, Other Respiratory: YES: Orthopnea, Shortness of breath Cardiovascular: yes Chest Pain Gastrointestinal: Yes Nausea Skin: Yes Dry Skin Physical Exam General: Alert, Oriented X3, Cooperative, No acute distress HEENT: Atraumatic, EOMI Lungs: Clear to auscultation, Normal air movement Breasts: Not examined Abdomen: Normal bowel sounds, Soft Rectal Exam: not examined Extremities: No cyanosis Neuro: Normal speech, Cranial nerves 3-12 NL Psych/Mental Status: Mental status NL, Mood NL Vitals Vitals Vital Signs Date Time Temp Pulse Resp B/P (MAP) Pulse Ox O2 Delivery O2 Flow Rate FiO2 06/05/19 02:59 97.5 95 18 179/80 (113) 97 Room Air 97.5 Labs Labs Laboratory Tests Test 06/04/19 18:37 06/04/19 19:30 06/04/19 22:46 06/04/19 23:12 White Blood Count 6.9 x10^3/uL (4.0-11.0) Red Blood Count 3.85 x10^6/uL (4.30-5.70) Hemoglobin 10.7 g/dL (13.0-17.5) Hematocrit 33.9 % (39.0-53.0) Mean Corpuscular Volume 88 fL (79-100) Mean Corpuscular Hemoglobin 28 pg (25-35) Mean Corpuscular Hemoglobin Concent 32 g/dL (31-37) Red Cell Distribution Width 17.5 % (11.5-14.5) Platelet Count 140 x10^3/uL (140-400) Neutrophils (%) (Auto) 82 % (31-73) Lymphocytes (%) (Auto) 8 % (24-48) Monocytes (%) (Auto) 7 % (0-9) Eosinophils (%) (Auto) 1 % (0-3) Basophils (%) (Auto) 2 % (0-3) Neutrophils # (Auto) 5.7 x10^3/uL (1.8-7.7) Lymphocytes # (Auto) 0.5 x10^3/uL (1.0-4.8) Monocytes # (Auto) 0.5 x10^3/uL (0.0-1.1) Eosinophils # (Auto) 0.1 x10^3/uL (0.0-0.7) Basophils # (Auto) 0.1 x10^3/uL (0.0-0.2) Sodium Level 144 mmol/L (136-145) Potassium Level 4.7 mmol/L (3.5-5.1) Chloride Level 109 mmol/L (98-107) Carbon Dioxide Level 24 mmol/L (21-32) Anion Gap 11 (6-14) Blood Urea Nitrogen 60 mg/dL (8-26) Creatinine 6.0 mg/dL (0.7-1.3) Estimated GFR (Cockcroft-Gault) 12.0 BUN/Creatinine Ratio 10 (6-20) Glucose Level 82 mg/dL (70-99) Calcium Level 8.9 mg/dL (8.5-10.1) Total Bilirubin 0.7 mg/dL (0.2-1.0) Aspartate Amino Transf (AST/SGOT) 20 U/L (15-37) Alanine Aminotransferase (ALT/SGPT) 11 U/L (16-63) Alkaline Phosphatase 75 U/L (46-116) Troponin I Quantitative 0.058 ng/mL (0.000-0.055) ZN-Cgy-B-Type Natriuretic Peptide > 35435 pg/mL (0-124) Total Protein 7.0 g/dL (6.4-8.2) Albumin 2.7 g/dL (3.4-5.0) Albumin/Globulin Ratio 0.6 (1.0-1.7) Lipase 37 U/L (73-393) Glucose (Fingerstick) 78 mg/dL (70-99) 66 mg/dL (70-99) Laboratory Tests Test 06/04/19 18:37 06/04/19 19:30 06/04/19 22:46 06/04/19 23:12 White Blood Count 6.9 x10^3/uL (4.0-11.0) Red Blood Count 3.85 x10^6/uL (4.30-5.70) Hemoglobin 10.7 g/dL (13.0-17.5) Hematocrit 33.9 % (39.0-53.0) Mean Corpuscular Volume 88 fL (79-100) Mean Corpuscular Hemoglobin 28 pg (25-35) Mean Corpuscular Hemoglobin Concent 32 g/dL (31-37) Red Cell Distribution Width 17.5 % (11.5-14.5) Platelet Count 140 x10^3/uL (140-400) Neutrophils (%) (Auto) 82 % (31-73) Lymphocytes (%) (Auto) 8 % (24-48) Monocytes (%) (Auto) 7 % (0-9) Eosinophils (%) (Auto) 1 % (0-3) Basophils (%) (Auto) 2 % (0-3) Neutrophils # (Auto) 5.7 x10^3/uL (1.8-7.7) Lymphocytes # (Auto) 0.5 x10^3/uL (1.0-4.8) Monocytes # (Auto) 0.5 x10^3/uL (0.0-1.1) Eosinophils # (Auto) 0.1 x10^3/uL (0.0-0.7) Basophils # (Auto) 0.1 x10^3/uL (0.0-0.2) Sodium Level 144 mmol/L (136-145) Potassium Level 4.7 mmol/L (3.5-5.1) Chloride Level 109 mmol/L (98-107) Carbon Dioxide Level 24 mmol/L (21-32) Anion Gap 11 (6-14) Blood Urea Nitrogen 60 mg/dL (8-26) Creatinine 6.0 mg/dL (0.7-1.3) Estimated GFR (Cockcroft-Gault) 12.0 BUN/Creatinine Ratio 10 (6-20) Glucose Level 82 mg/dL (70-99) Calcium Level 8.9 mg/dL (8.5-10.1) Total Bilirubin 0.7 mg/dL (0.2-1.0) Aspartate Amino Transf (AST/SGOT) 20 U/L (15-37) Alanine Aminotransferase (ALT/SGPT) 11 U/L (16-63) Alkaline Phosphatase 75 U/L (46-116) Troponin I Quantitative 0.058 ng/mL (0.000-0.055) WQ-Vua-B-Type Natriuretic Peptide > 19335 pg/mL (0-124) Total Protein 7.0 g/dL (6.4-8.2) Albumin 2.7 g/dL (3.4-5.0) Albumin/Globulin Ratio 0.6 (1.0-1.7) Lipase 37 U/L (73-393) Glucose (Fingerstick) 78 mg/dL (70-99) 66 mg/dL (70-99) VTE Prophylaxis Ordered VTE Prophylaxis Devices: Yes VTE Pharmacological Prophylaxi: Yes Assessment/Plan Assessment/Plan impression ESRD ON DIALYSIS NONCOMPLIANCE MORBID OBESITY CHEST DISCOMFORT mild troponin i elevation PLAN ADMIT CONSULT NEPHROLOGY Dialysis today CONSULT CARDIOLOGY bp control home meds dvt prophylaxis 55 min pt exam, chart review, > 50% of time spent with exam, chart review, pt care coordination NICHOLE THORNTON MD Jun 05, 2019 07:29
[2019-06-05] MEDS ORDERED: IV NORMAL SALINE 1000ML BAG 1,000 ML IV PRN ×2 (09:55)
[2019-06-05] MEDS ORDERED: diphenhydrAMINE 50 MG/ML VIAL IV PRN ×2 (10:00)
[2019-06-05] MEDS ORDERED: DIALYSIS PATIENT. MC PRN (10:00)
[2019-06-05] MEDS ORDERED: ACETAMINOPHEN 500 MG TABLET PO PRN (10:00)
--- NOTE | 2019-06-05 10:36 | NUR ---
IP: patient has hx of +MRSA screen 02/21/19, requires contact precautions until 2 negative results 7 days apart.
[2019-06-05] MEDS ORDERED: LOSA100T14 PO (10:44)
[2019-06-05] MEDS ORDERED: NEOM1OIN13 TP (10:44)
[2019-06-05] MEDS ORDERED: ZOLPIDEM 5 MG TABLET. PO PRN (11:00)
[2019-06-05] MEDS ORDERED: HYDROcodone/APAP 5/325MG 1 TAB TABLET PO PRN (11:00)
[2019-06-05] MEDS ORDERED: NON FORMULARY ITEM (Albuterol Sulfate (Ventolin Hfa Inhaler) 1 PUFF) INH PRN (11:00)
[2019-06-05] MEDS ORDERED: CALCIUM CARBONATE 500 MG TAB.CHEW PO PRN ×2 (11:00→12:36)
[2019-06-05] MEDS: CETIRIZINE HCL 10 MG TABLET. PO SCH (12:00)
[2019-06-05] MEDS: levETIRAcetam 500 MG TABLET PO SCH ×2 (12:00→20:40)
[2019-06-05] MEDS: LEVOTHYROXINE 175 MCG TABLET PO SCH (12:00)
--- NOTE | 2019-06-05 12:03 | PDOC2 ---
CONSULT Date of Consult Date of Consult DATE: 06/05/19 TIME: 11:51 Reason for Consult Reason for Consult: ESRD, severe non compliant Source Source: Chart review, Patient History of Present Illness Reason for Visit: Patient is a 53 year old AA male ESRD on HD TTS who presents to the due to chief complaint of shortness of breath and chest pain. Patient states that he's had the pain for the last 1 week. Patient also states that he has not been to dialysis at least for 1 month. Patient states that his pain is in the middle of his chest with no radiation. Pain is constant. Continues to be non compliant with HD- Travel goes to pick him up on his dialysis days and he refuses to go. He has not shown up for care conferences at the dialysis unit. Pt insists there are transportation issues- there have been none per the dialysis staff and SW at [facility] Dialysis unit. Police has been sent to check on him as well Continues to be severely non compliant . Shows up for HD once in couple of months , frequent hospitalizations for SOB Past Medical History Cardiovascular: AFIB, CAD, CHF, HTN, [place], Hyperlipidemia, Other Pulmonary: COPD CENTRAL NERVOUS SYSTEM: Dementia, Periperal neuropathy, Seizure, TIA GI: Diverticulosis, Other Heme/Onc: Anemia NOS Hepatobiliary: No pertinent hx Psych: Anxiety, Depression Musculoskeletal: Osteoarthritis Rheumatologic: Rheumatoid arthritis Infectious disease: No pertinent hx Renal/: Chronic renal failure Endocrine: Diabetes, Hypothyroidism, Hyperparathyroidism Past Surgical History Past Surgical History: Cataract Removal, Total knee replacement, Other Family History Family History: Diabetes, Hypertension Social History Social History: Parent ALCOHOL: none Drugs: None Lives: with Family Current Problem List Problem List Problems Medical Problems: (1) Dyspnea Status: Acute Current Medications Current Medications Current Medications Aspirin (Children'S Aspirin) 324 mg 1X ONCE PO ; Start 06/04/19 at 19:00; Stop 06/04/19 at 19:01; Status DC Nitroglycerin/ Dextrose 250 ml @ 0 mls/hr 1X ONCE IV Last administered on 06/04/19at 19:34; Start 06/04/19 at 19:30; Stop 06/04/19 at 19:31; Status DC Aspirin (Children'S Aspirin) 324 mg 1X ONCE PO Last administered on 06/04/19at 21:33; Start 06/04/19 at 21:30; Stop 06/04/19 at 21:31; Status DC Ondansetron HCl (Zofran) 4 mg PRN Q8HRS PRN IV NAUSEA/VOMITING 1ST CHOICE; Start 06/04/19 at 22:30; Stop 06/05/19 at 22:29 Acetaminophen (Tylenol) 650 mg PRN Q6HRS PRN PO MILD PAIN 1-3; Start 06/05/19 at 03:15; Stop 06/05/19 at 11:05; Status DC Sodium Chloride 1,000 ml @ 1,000 mls/hr Q1H PRN IV hypotension; Start 06/05/19 at 09:55; Stop 06/05/19 at 15:54 Acetaminophen (Tylenol) 500 mg 1X PRN PRN PO MILD PAIN / TEMP; Start 06/05/19 at 10:00; Stop 06/06/19 at 09:59 Diphenhydramine HCl (Benadryl) 25 mg 1X PRN PRN IV ITCHING; Start 06/05/19 at 10:00; Stop 06/06/19 at 09:59 Diphenhydramine HCl (Benadryl) 25 mg 1X PRN PRN IV ITCHING; Start 06/05/19 at 10:00; Stop 06/06/19 at 09:59 Sodium Chloride 1,000 ml @ 400 mls/hr Q2H30M PRN IV PATENCY; Start 06/05/19 at 09:55; Stop 06/05/19 at 21:54 Info (PHARMACY MONITORING -- do not chart) 1 each PRN DAILY PRN MC SEE COMMENTS; Start 06/05/19 at 10:00 Acetaminophen (Tylenol) 650 mg PRN Q6HRS PRN PO FEVER; Start 06/05/19 at 11:00 Aspirin (Children'S Aspirin) 81 mg DAILY PO ; Start 06/05/19 at 12:00 Calcium Carbonate/ Glycine (Oscal) 500 mg BID PO ; Start 06/05/19 at 21:00 Calcium Carbonate/ Glycine (Tums) 200 mg PRN Q4HRS PRN PO INDIGESTION; Start 06/05/19 at 11:00 Carvedilol (Coreg) 3.125 mg BIDWMEALS PO ; Start 06/05/19 at 17:00 Cetirizine HCl (ZyrTEC) 10 mg DAILY PO ; Start 06/05/19 at 12:00 Acetaminophen/ Hydrocodone Bitart (Lortab 5/325) 1 tab PRN Q6HRS PRN PO PAIN; Start 06/05/19 at 11:00 Levothyroxine Sodium (Synthroid) 175 mcg DAILY06 PO ; Start 06/05/19 at 12:00 Neomycin/ Polymyxin/ Bacitracin (Triple Antibiotic Ointment) 1 pkt DAILY TP ; Start 06/05/19 at 12:00 Pramipexole Dihydrochloride (miraPEX) 0.25 mg DAILY PO ; Start 06/05/19 at 12:00 Zolpidem Tartrate (Ambien) 5 mg PRN QHS PRN PO sleep; Start 06/05/19 at 11:00 Non-Formulary Medication (Albuterol Sulfate (Ventolin Hfa Inhaler)) 1 puff Q6HRS PRN INH SHORTNESS OF BREATH; Start 06/05/19 at 11:00; Status UNV Atorvastatin Calcium (Lipitor) 80 mg QHS PO ; Start 06/05/19 at 21:00 Non-Formulary Medication (Fluticasone Propionate (Flovent 110MCG Hfa)) 2 puff BID IH ; Start 06/05/19 at 21:00; Stop 06/05/19 at 11:08; Status DC Levetiracetam (Keppra) 1,000 mg BID PO ; Start 06/05/19 at 12:00 Losartan Potassium (Cozaar) 100 mg DAILY PO ; Start 06/06/19 at 09:00 Magnesium Oxide (Magnesium Oxide) 400 mg DAILY PO ; Start 06/06/19 at 09:00 Albuterol Sulfate (Ventolin Neb Soln) 2.5 mg PRN Q6HRS PRN NEB SHORTNESS OF BREATH; Start 06/05/19 at 11:15 Budesonide (Pulmicort) 0.5 mg RTBID NEB ; Start 06/05/19 at 12:00 Active Scripts Active Hydrocodone-Acetamin 5-325 mg (Hydrocodone/Acetaminophen) 1 Each Tablet 1 Each PO PRN Q6HRS PRN Isosorbide Mononitrate Er (Isosorbide Mononitrate) 30 Mg Tab.er.24h 30 Mg PO DAILY 30 Days Coreg (Carvedilol) 3.125 Mg Tablet 3.125 Mg PO BIDWMEALS Flovent 110MCG Hfa (Fluticasone Propionate) 12 Gm Aer.w.adap 2 Puff IH BID Zolpidem Tartrate 5 Mg Tablet 1 Tab PO QHS PRN Mirapex (Pramipexole Di-Hcl) 0.25 Mg Tablet 1 Tab PO DAILY Ventolin Hfa Inhaler (Albuterol Sulfate) 18 Gm Hfa.aer.ad 1 Puff INH Q6HRS PRN Levothyroxine Sodium 175 Mcg Tablet 175 Mcg PO DAILYAC Reported Triple Antibiotic Ointment Pkt (Neomycin/Bacitracin/Polymyxinb) 1 Each Oint.pack 1 Each TP DAILY Losartan Potassium 100 Mg Tablet 100 Mg PO DAILY Atorvastatin Calcium 80 Mg Tablet 80 Mg PO HS Cetirizine Hcl 10 Mg Tablet 1 Tab PO DAILY Magnesium (Magnesium Oxide) 400 Mg Capsule 250 Mg PO BID Tums (Calcium Carbonate) 200 Mg Tab.chew 200 Mg PO PRN Q4HRS PRN Aspirin 81 Mg Tab.chew 1 Tab PO DAILY Calcium Carbonate 500 Mg Tablet 500 Mg PO BID Keppra (Levetiracetam) 1,000 Mg Tablet 1 Tab PO BID Tylenol (Acetaminophen) 325 Mg Tablet 650 Mg PO PRN Q6HRS PRN Allergies Allergies: Coded Allergies: iodine (Verified Allergy, Severe, THROAT SWELLING, 01/16/19) lisinopril (Verified Allergy, Severe, 01/16/19) Fish Containing Products (Verified Allergy, Intermediate, 01/16/19) Penicillins (Verified Allergy, Intermediate, SEE COMMENT, 01/16/19) Tolerates meropenem and Cephalosporins piperacillin (Verified Allergy, Intermediate, Hives, 01/16/19) Tolerates meropenem tazobactam (Verified Allergy, Intermediate, 01/16/19) I S O L A T I O N *CONTACT* (Verified Allergy, Unknown, 02/26/19) mrsa ROS Review of System Per HPI Physical Exam Physical Exam GEN: no acute distress. HEENT: OM moist NECK: Supple. LUNGS: Clear to auscultation. HEART: S1, S2. ABDOMEN: Obese, soft, nontender, EXTREMITIES: Left upper extremity fistula without signs of any complications. Right TMA Lt BKA SKIN: No rash. NEUROLOGIC: Grossly n ormal No Henry Vital Signs Vital Signs Date Time Temp Pulse Resp B/P (MAP) Pulse Ox O2 Delivery O2 Flow Rate FiO2 06/05/19 08:00 Room Air 06/05/19 07:00 98.3 93 18 173/72 (105) 98 98.3 Assessment & Plan ESRD- On HD TTS @ [facility] Chronic severe Non compliance, refuses to come for HD with Travel waiting outside his house, Police has been sent to his home to check on him and he has refused to come for HD Multiple lengthy discussions with pt and , dont show up for care conferences Seen on HD , continue as ordered [place] Shortness of breath at presentation - Chronic Non compliance with HD Cxr - No congestion reported HTN- BP high , Non complaince with HD and meds Continue antihypertensives R TMA wound infection - fever and drainage 02/20 s/p amputation on 11/28 h/o recent fifth and fourth toe amputation sites with osteomyelitis with deep tissue infection with cultures positive for Diabetes mellitus with peripheral neuropathy. Peripheral vascular disease Anemia-- KEITH per protocol Currently Hgb > 10 Labs Labs Laboratory Tests Test 06/04/19 18:37 06/04/19 19:30 06/04/19 22:46 06/04/19 23:12 White Blood Count 6.9 x10^3/uL (4.0-11.0) Red Blood Count 3.85 x10^6/uL (4.30-5.70) Hemoglobin 10.7 g/dL (13.0-17.5) Hematocrit 33.9 % (39.0-53.0) Mean Corpuscular Volume 88 fL (79-100) Mean Corpuscular Hemoglobin 28 pg (25-35) Mean Corpuscular Hemoglobin Concent 32 g/dL (31-37) Red Cell Distribution Width 17.5 % (11.5-14.5) Platelet Count 140 x10^3/uL (140-400) Neutrophils (%) (Auto) 82 % (31-73) Lymphocytes (%) (Auto) 8 % (24-48) Monocytes (%) (Auto) 7 % (0-9) Eosinophils (%) (Auto) 1 % (0-3) Basophils (%) (Auto) 2 % (0-3) Neutrophils # (Auto) 5.7 x10^3/uL (1.8-7.7) Lymphocytes # (Auto) 0.5 x10^3/uL (1.0-4.8) Monocytes # (Auto) 0.5 x10^3/uL (0.0-1.1) Eosinophils # (Auto) 0.1 x10^3/uL (0.0-0.7) Basophils # (Auto) 0.1 x10^3/uL (0.0-0.2) Sodium Level 144 mmol/L (136-145) Potassium Level 4.7 mmol/L (3.5-5.1) Chloride Level 109 mmol/L (98-107) Carbon Dioxide Level 24 mmol/L (21-32) Anion Gap 11 (6-14) Blood Urea Nitrogen 60 mg/dL (8-26) Creatinine 6.0 mg/dL (0.7-1.3) Estimated GFR (Cockcroft-Gault) 12.0 BUN/Creatinine Ratio 10 (6-20) Glucose Level 82 mg/dL (70-99) Calcium Level 8.9 mg/dL (8.5-10.1) Total Bilirubin 0.7 mg/dL (0.2-1.0) Aspartate Amino Transf (AST/SGOT) 20 U/L (15-37) Alanine Aminotransferase (ALT/SGPT) 11 U/L (16-63) Alkaline Phosphatase 75 U/L (46-116) Troponin I Quantitative 0.058 ng/mL (0.000-0.055) QK-Ziy-L-Type Natriuretic Peptide > 70223 pg/mL (0-124) Total Protein 7.0 g/dL (6.4-8.2) Albumin 2.7 g/dL (3.4-5.0) Albumin/Globulin Ratio 0.6 (1.0-1.7) Lipase 37 U/L (73-393) Glucose (Fingerstick) 78 mg/dL (70-99) 66 mg/dL (70-99) Test 06/05/19 07:30 Glucose (Fingerstick) 106 mg/dL (70-99) Laboratory Tests Test 06/04/19 18:37 06/04/19 19:30 06/04/19 22:46 06/04/19 23:12 White Blood Count 6.9 x10^3/uL (4.0-11.0) Red Blood Count 3.85 x10^6/uL (4.30-5.70) Hemoglobin 10.7 g/dL (13.0-17.5) Hematocrit 33.9 % (39.0-53.0) Mean Corpuscular Volume 88 fL (79-100) Mean Corpuscular Hemoglobin 28 pg (25-35) Mean Corpuscular Hemoglobin Concent 32 g/dL (31-37) Red Cell Distribution Width 17.5 % (11.5-14.5) Platelet Count 140 x10^3/uL (140-400) Neutrophils (%) (Auto) 82 % (31-73) Lymphocytes (%) (Auto) 8 % (24-48) Monocytes (%) (Auto) 7 % (0-9) Eosinophils (%) (Auto) 1 % (0-3) Basophils (%) (Auto) 2 % (0-3) Neutrophils # (Auto) 5.7 x10^3/uL (1.8-7.7) Lymphocytes # (Auto) 0.5 x10^3/uL (1.0-4.8) Monocytes # (Auto) 0.5 x10^3/uL (0.0-1.1) Eosinophils # (Auto) 0.1 x10^3/uL (0.0-0.7) Basophils # (Auto) 0.1 x10^3/uL (0.0-0.2) Sodium Level 144 mmol/L (136-145) Potassium Level 4.7 mmol/L (3.5-5.1) Chloride Level 109 mmol/L (98-107) Carbon Dioxide Level 24 mmol/L (21-32) Anion Gap 11 (6-14) Blood Urea Nitrogen 60 mg/dL (8-26) Creatinine 6.0 mg/dL (0.7-1.3) Estimated GFR (Cockcroft-Gault) 12.0 BUN/Creatinine Ratio 10 (6-20) Glucose Level 82 mg/dL (70-99) Calcium Level 8.9 mg/dL (8.5-10.1) Total Bilirubin 0.7 mg/dL (0.2-1.0) Aspartate Amino Transf (AST/SGOT) 20 U/L (15-37) Alanine Aminotransferase (ALT/SGPT) 11 U/L (16-63) Alkaline Phosphatase 75 U/L (46-116) Troponin I Quantitative 0.058 ng/mL (0.000-0.055) LC-Hvk-D-Type Natriuretic Peptide > 43181 pg/mL (0-124) Total Protein 7.0 g/dL (6.4-8.2) Albumin 2.7 g/dL (3.4-5.0) Albumin/Globulin Ratio 0.6 (1.0-1.7) Lipase 37 U/L (73-393) Glucose (Fingerstick) 78 mg/dL (70-99) 66 mg/dL (70-99) Test 06/05/19 07:30 Glucose (Fingerstick) 106 mg/dL (70-99) Review All relevant outside records, renal labs, imaging studies, telemetry/EKG's were reviewed. Images Images Impression: No acute abnormality is seen. MINA RICHARDSON MD Jun 05, 2019 12:03
[2019-06-05] MEDS: BUDESONIDE 0.5 MG/2 ML NEBU. NEB SCH ×3 (12:37→19:43)
--- NOTE | 2019-06-05 12:53 | NUR ---
SS following for discharge planning. SS reviewed pt chart. Pt is from home with spouse and is currently on room air. Pt was previously on services with [facility], ; fax [phone]. Pt has a history of non-compliance with several home healthcare companies and has been put on a do not readmit list for those companies as well. Pt received outpatient dialysis services at [facility] in [place], ; fax [phone], and has a Sunday, , Sunday chair time. Pt has a history of non-compliance with dialysis. SS contacted [facility] in [place] and was notified that they have arranged transportation for pt for every dialysis through [employer] and pt and spouse will often not answer the door and will not come out of his home. [facility] reported that pt has only attended dialysis on 04/26/2019 and 05/10/2019 for the past two months. Pt reporting that he is not satisfied with the transportation company and reports that no one is helping him. Pt notified that services are in place to assist him with services but he needs to comply with what is being offered. SS also discussed hospice if pt does not want to continue dialysis. Pt declined and stated that he wants to continue. Pt is high risk readmission risk due to non-compliance with services provided. SS will continue to follow for discharge planning.
[2019-06-05] MEDS: ASPIRIN CHEWABLE 81 MG TABLET. PO SCH (15:58)
[2019-06-05] MEDS: PRAMIPEXOLE 0.25 MG TABLET. PO SCH (15:58)
--- NOTE | 2019-06-05 15:58 | PDOC2 ---
BRENDA HAWLEY FISCAL AGENT 06/05/19 1558: CARDIAC CONSULT DATE OF CONSULT Date of Consult DATE: 06/05/19 TIME: 15:37 REASON FOR CONSULT Reason for Consult: HTN urgency REFERRING PHYSICIAN Referring Physician: Fullbright SOURCE Source: Chart review, Patient HISTORY OF PRESENT ILLNESS HISTORY OF PRESENT ILLNESS This is a pleasant 53 yo male admitted for complains of BUNCH, chest pain and SOA. Reports that this has been going on in the last 2 weeks. He has been having intermittent chest pressure lasting for seconds at a time and has been having SOA at rest. Also increased leg welling and positive for orthopnea and PND. No neck or jaw pain or arm heaviness. He has not been able to go to his dialysis session due to transportation issues. His last dialysis was first week of Apr which he eneded up going to [facility] due to CP and had dialysis. Verbalized that he has not ran out of medications but not on coumadin anymore and just on ASA for stroke prevention. also had some nausea but no diaphoresis. Has bilateral throbbing BUNCH with increased left eye floaters otherwise no focal neuro deficits. PAST MEDICAL HISTORY Past Medical History Cardiovascular: AFIB, CAD, CHF, HTN, OR, Hyperlipidemia, Other (PAD) Pulmonary: COPD CENTRAL NERVOUS SYSTEM: Dementia, Peripheral neuropathy, Seizure, TIA GI: Diverticulosis, Other (pancreatitis) Heme/Onc: Anemia NOS Musculoskeletal: Osteoarthritis Rheumatologic: Rheumatoid arthritis (?) Infectious disease: No pertinent hx ENT: No pertinent hx Renal/: ESRD Endocrine: Diabetes (2), Hypothyroidism Dermatology: No pertinent hx PAST SURGICAL HISTORY Past Surgical History Cataract Removal, Total knee replacement, Other (coronary stenting), LBKA, Right partial foot amputation FAMILY HISTORY Family History Diabetes, Heart Disease, Hypertension SOCIAL HISTORY Smoke: Quit ALCOHOL: none Drugs: None Lives: with Family CURRENT MEDICATIONS CURRENT MEDICATIONS Current Medications Medications (Trade) Dose Ordered Sig/[place] Route PRN Reason Start Time Stop Time Status Last Admin Dose Admin Nitroglycerin/ Dextrose 250 ml @ 0 mls/hr 1X ONCE IV 06/04/19 19:30 06/04/19 19:31 DC 06/04/19 19:34 Aspirin (Children'S Aspirin) 324 mg 1X ONCE PO 06/04/19 21:30 06/04/19 21:31 DC 06/04/19 21:33 Budesonide (Pulmicort) 0.5 mg RTBID NEB 06/05/19 12:00 06/05/19 12:37 ALLERGIES ALLERGIES: Coded Allergies: iodine (Verified Allergy, Severe, THROAT SWELLING, 01/16/19) lisinopril (Verified Allergy, Severe, 01/16/19) Fish Containing Products (Verified Allergy, Intermediate, 01/16/19) Penicillins (Verified Allergy, Intermediate, SEE COMMENT, 01/16/19) Tolerates meropenem and Cephalosporins piperacillin (Verified Allergy, Intermediate, Hives, 01/16/19) Tolerates meropenem tazobactam (Verified Allergy, Intermediate, 01/16/19) I S O L A T I O N *CONTACT* (Verified Allergy, Unknown, 02/26/19) mrsa ROS Review of System 14 point ROS evaluated with pertinent positives noted per HPI PHYSICAL EXAM General: Alert, Oriented X3, Cooperative, No acute distress HEENT: Atraumatic, Mucous membr. moist/pink Lungs: Clear to auscultation, Normal air movement Heart: Regular rate (SR), Other (distant heart sounds) Abdomen: Soft, No tenderness, Other (obese) Extremities: No cyanosis, Other (2-3+ bilateral LE pitting edema) Skin: No breakdown Neuro: Normal speech, Sensation intact Psych/Mental Status: Mental status NL, Mood NL MUSCULOSKELETAL: Osteoarthritic changes both hands VITALS/I&O VITALS/I&O: Vital Signs Date Time Temp Pulse Resp B/P (MAP) Pulse Ox O2 Delivery O2 Flow Rate FiO2 06/05/19 12:39 100 Room Air 06/05/19 07:00 98.3 93 18 173/72 (105) 98.3 I & O 06/04/19 06/04/19 06/05/19 15:00 23:00 07:00 Intake Total 900 ml Balance 900 ml LABS Lab: Laboratory Tests Test 06/04/19 18:37 06/04/19 19:30 06/04/19 22:46 06/04/19 23:12 White Blood Count 6.9 x10^3/uL (4.0-11.0) Red Blood Count 3.85 x10^6/uL (4.30-5.70) L Hemoglobin 10.7 g/dL (13.0-17.5) L Hematocrit 33.9 % (39.0-53.0) L Mean Corpuscular Volume 88 fL (79-100) Mean Corpuscular Hemoglobin 28 pg (25-35) Mean Corpuscular Hemoglobin Concent 32 g/dL (31-37) Red Cell Distribution Width 17.5 % (11.5-14.5) H Platelet Count 140 x10^3/uL (140-400) Neutrophils (%) (Auto) 82 % (31-73) H Lymphocytes (%) (Auto) 8 % (24-48) L Monocytes (%) (Auto) 7 % (0-9) Eosinophils (%) (Auto) 1 % (0-3) Basophils (%) (Auto) 2 % (0-3) Neutrophils # (Auto) 5.7 x10^3/uL (1.8-7.7) Lymphocytes # (Auto) 0.5 x10^3/uL (1.0-4.8) L Monocytes # (Auto) 0.5 x10^3/uL (0.0-1.1) Eosinophils # (Auto) 0.1 x10^3/uL (0.0-0.7) Basophils # (Auto) 0.1 x10^3/uL (0.0-0.2) Sodium Level 144 mmol/L (136-145) Potassium Level 4.7 mmol/L (3.5-5.1) Chloride Level 109 mmol/L (98-107) H Carbon Dioxide Level 24 mmol/L (21-32) Anion Gap 11 (6-14) Blood Urea Nitrogen 60 mg/dL (8-26) H Creatinine 6.0 mg/dL (0.7-1.3) H Estimated GFR (Cockcroft-Gault) 12.0 BUN/Creatinine Ratio 10 (6-20) Glucose Level 82 mg/dL (70-99) Calcium Level 8.9 mg/dL (8.5-10.1) Total Bilirubin 0.7 mg/dL (0.2-1.0) Aspartate Amino Transferase (AST) 20 U/L (15-37) Alanine Aminotransferase (ALT) 11 U/L (16-63) L Alkaline Phosphatase 75 U/L (46-116) Troponin I Quantitative 0.058 ng/mL (0.000-0.055) ZF-Wye-I-Type Natriuretic Peptide > 14923 pg/mL (0-124) H Total Protein 7.0 g/dL (6.4-8.2) Albumin 2.7 g/dL (3.4-5.0) L Albumin/Globulin Ratio 0.6 (1.0-1.7) L Lipase 37 U/L (73-393) L Glucose (Fingerstick) 78 mg/dL (70-99) 66 mg/dL (70-99) L Test 06/05/19 07:30 Glucose (Fingerstick) 106 mg/dL (70-99) H Laboratory Tests 06/04/19 18:37 Laboratory Tests 06/04/19 19:30 ECHOCARDIOGRAM ECHOCARDIOGRAM <Conclusion> The Left Ventricle is borderline dilated. The left ventricular systolic function is normal. The Ejection Fraction is 50-55%. There is mild concentric left ventricular hypertrophy. There is no significant aortic valvular stenosis. Doppler and Color Flow revealed trace aortic regurgitation. Doppler and Color-flow revealed trace to mild mitral regurgitation. Doppler and Color Flow revealed trace tricuspid regurgitation. DATE: 06/28/18 1630 HEART CATH HEART CATH <Conclusion> Moderate coronary artery disease in the left anterior descending. Stent in the left circumflex vessel which had previous distal occlusion which now had some flowl. No new significant lesions were identified. Small nondominant right coronary artery with a 70% proximal lesion. DATE: 09/18/18 1746 ASSESSMENT/PLAN ASSESSMENT/PLAN 1. Malignant HTN: due to noncompliance and missed dialysis 2. Acute on chronic diastolic CHF 3. ESRD 4. Severe Noncompliance: missed HD at least 1 mo and multiple f/u cancellations 5. CAD; stent placed at [facility] 2016. Known small nondominant right coronary artery with a 70% proximal lesion. 09/2018 [facility]. 6. Atypical CP: likely due to uncontrolled HTN with small vessel disease. EKG SR no acute changes. 6. PAFIB: SR 7. COPD 8. Chronic back pain with chronic opioid use 9. Morbid obesity 10. DM2/HLP 11. Iodine allergy 12. BUNCH with increased left eye floaters Recommendations 1. TTE. lipids, TSH 2. Currently on NTG drip. Will stop and restart home meds. Add imdur, adjust per BP trend. HD performed today 4KG off. 3. CT head noncontrast. 4. Having trouble with transport for HD. SS consult 5. Discussed compliance. ROB LOOMIS MD 06/05/19 1636: CARDIAC CONSULT ASSESSMENT/PLAN ASSESSMENT/PLAN Pt. seen and examined. Agree with above LABORATORY ASSOCIATE note. 53 y.o well known to me. Presenting with chest pressure and dyspnea due to above issues. Continue HD> Restart home meds. Supportive care. Thanks BRENDA HAWLEY APRN Jun 05, 2019 15:58 ROB LOOMIS MD Jun 05, 2019 16:36
[2019-06-05] MEDS: NEOMY/BACITR/POLYMYXIN OINT PACKET. TP SCH (16:04)
[2019-06-05] MEDS ORDERED: hydrALAZINE 20 MG/ML VIAL. IVP PRN (16:30)
--- NOTE | 2019-06-05 16:35 | NUR ---
Wound Care: Consult to eval and treat wound to distal R foot. Pt is known to clinic and has an extended history including TMA of R foot with skin graft. Wound cleansed and measured, well epithelialized and granulated with callous to plantar surface of periwound. covered with xeroform ABD and kerlix. Communicated recommendations with Lilly COLIN. No other open areas noted on head to toe assessment. Educated to turn periodically to reduce skin breakdown. Follow up 06/11
[2019-06-05] MEDS ORDERED: CARVEDILOL 3.125 MG TABLET. PO SCH (17:00)
[2019-06-05 17:05] LABS: PROTHROMBIN TIME PATIENT 16.5 SEC (11.7-14.0)
[2019-06-05 17:16] LABS: CHOLESTEROL/HDL RATIO 3.5
[2019-06-05] MEDS: CARVEDILOL 6.25 MG TABLET. PO SCH (17:49)
[2019-06-05 19:58] VITALS: BP 125/59
--- NOTE | 2019-06-05 20:03 | NUR ---
Titrating Nitro Gtt: decreased to 40mcg Clarified with Dr. Kaur
[2019-06-05] MEDS ORDERED: LABETALOL 20 MG/4 ML DISP.SYRIN. IVP PRN (20:15)
[2019-06-05] MEDS: ATORVASTATIN CALCIUM 40 MG TABLET. PO SCH (20:40)
[2019-06-05] MEDS: CALCIUM CARBONATE 500 MG TABLET PO SCH (20:40)
[2019-06-05] MEDS ORDERED: NON FORMULARY ITEM (Fluticasone Propionate (Flovent 110MCG Hfa) 2 PUFF) IH SCH (21:00)
[2019-06-05 22:58] VITALS: BP 125/66
[2019-06-05] MEDS ORDERED: ONDANSETRON PF 4 MG/2 ML VIAL. IVP PRN (23:15)
[2019-06-05] MEDS: ALBUTEROL SULFATE 2.5 MG/3 ML NEBU. NEB PRN (23:15)
--- NOTE | 2019-06-06 01:11 | NUR ---
Nitro Drip titrated off- done at 0112
[2019-06-06 03:29] VITALS: BP 144/67
[2019-06-06 07:23] VITALS: BP 144/64
[2019-06-06] MEDS: LEVOTHYROXINE 175 MCG TABLET PO SCH (07:24)
[2019-06-06] MEDS: BUDESONIDE 0.5 MG/2 ML NEBU. NEB SCH (07:32)
[2019-06-06] MEDS: LOSARTAN POTASSIUM 50 MG TABLET. PO SCH (08:47)
[2019-06-06] MEDS: levETIRAcetam 500 MG TABLET PO SCH ×2 (08:47→21:18)
[2019-06-06] MEDS: CETIRIZINE HCL 10 MG TABLET. PO SCH (08:47)
[2019-06-06] MEDS: CARVEDILOL 6.25 MG TABLET. PO SCH ×2 (08:47→17:25)
[2019-06-06] MEDS: CALCIUM CARBONATE 500 MG TABLET PO SCH ×2 (08:48→21:18)
[2019-06-06] MEDS: ASPIRIN CHEWABLE 81 MG TABLET. PO SCH (08:48)
[2019-06-06] MEDS: MAGNESIUM OXIDE 400 MG TABLET PO SCH (08:48)
[2019-06-06] MEDS: ISOSORBIDE MONONITRATE ER 30 MG TAB.ER.24H PO SCH (08:48)
[2019-06-06] MEDS: PRAMIPEXOLE 0.25 MG TABLET. PO SCH (08:48)
[2019-06-06] MEDS: NEOMY/BACITR/POLYMYXIN OINT PACKET. TP SCH (08:49)
--- NOTE | 2019-06-06 09:20 | PDOC ---
PROGRESS NOTES History of Present Illness History of Present Illness VTE Prophylaxis Ordered VTE Prophylaxis Devices: Yes VTE Pharmacological Prophylaxi: Yes Assessment/Plan Assessment/Plan impression ESRD ON DIALYSIS NONCOMPLIANCE MORBID OBESITY CHEST DISCOMFORT mild troponin i elevation prior Osteo infection feet follows with wound care with poor compliance Dm2, prior poor control PLAN ADMIT CONSULT NEPHROLOGY Dialysis today CONSULT CARDIOLOGY bp control home meds dvt prophylaxis ECHO 39 min pt exam, chart review, > 50% of time spent with exam, chart review, pt care coordination Vitals Vitals Vital Signs Date Time Temp Pulse Resp B/P (MAP) Pulse Ox O2 Delivery O2 Flow Rate FiO2 06/06/19 08:48 82 144/64 06/06/19 07:34 99 Room Air 06/06/19 07:23 98.4 18 98.4 Physical Exam General: Alert, Oriented X3, Cooperative, No acute distress Heart: Regular rate (SR), Other (distant heart sounds) Lungs: Clear, Crackles Abdomen: Normal bowel sounds, Soft, No tenderness, Other (obese) Extremities: No cyanosis, Other (2-3+ bilateral LE pitting edema) Skin: No breakdown Labs LABS AP portable chest radiograph 06/04/2019 Clinical History: Shortness of breath. An AP erect portable digital radiograph of the chest was obtained. Comparison study is dated 03/24/2019. The cardiac silhouette is mildly enlarged. The thoracic aorta is mildly tortuous. No acute pulmonary infiltrate is seen. No pleural effusion or pneumothorax is noted. Stents overlie the brachiocephalic veins bilaterally. No acute pulmonary infiltrate is seen. No pleural effusion or pneumothorax is noted. The osseous structures are unchanged. Impression: No acute abnormality is seen. Electronically signed by: Ceferino Seaman MD (06/04/2019 11:16 PM) [facility] DICTATED and SIGNED BY: CEFERINO SEAMAN MD DATE: 06/04/19 2316 Laboratory Tests Test 06/05/19 10:00 06/05/19 16:45 06/05/19 17:11 06/05/19 20:26 Nasal Screen MRSA (PCR) Positive (Negative) Prothrombin Time 16.5 SEC (11.7-14.0) Prothromb Time International Ratio 1.4 (0.8-1.1) Triglycerides Level 67 mg/dL (0-150) Cholesterol Level 167 mg/dL (0-200) LDL Cholesterol, Calculated 106 mg/dL (0-100) VLDL Cholesterol, Calculated 13 mg/dL (0-40) Non-HDL Cholesterol Calculated 119 mg/dL (0-129) HDL Cholesterol 48 mg/dL (40-60) Cholesterol/HDL Ratio 3.5 Thyroid Stimulating Hormone (TSH) 4.093 uIU/mL (0.358-3.74) Glucose (Fingerstick) 92 mg/dL (70-99) 116 mg/dL (70-99) Test 06/06/19 07:27 Glucose (Fingerstick) 91 mg/dL (70-99) Assessment and Plan Assessmemt and Plan Problems Medical Problems: (1) Dyspnea Status: Acute Comment Review of Relevant I have reviewed the following items lila (where applicable) has been applied. Labs Laboratory Tests Test 06/04/19 18:37 06/04/19 19:30 06/04/19 22:46 06/04/19 23:12 White Blood Count 6.9 x10^3/uL (4.0-11.0) Red Blood Count 3.85 x10^6/uL (4.30-5.70) Hemoglobin 10.7 g/dL (13.0-17.5) Hematocrit 33.9 % (39.0-53.0) Mean Corpuscular Volume 88 fL (79-100) Mean Corpuscular Hemoglobin 28 pg (25-35) Mean Corpuscular Hemoglobin Concent 32 g/dL (31-37) Red Cell Distribution Width 17.5 % (11.5-14.5) Platelet Count 140 x10^3/uL (140-400) Neutrophils (%) (Auto) 82 % (31-73) Lymphocytes (%) (Auto) 8 % (24-48) Monocytes (%) (Auto) 7 % (0-9) Eosinophils (%) (Auto) 1 % (0-3) Basophils (%) (Auto) 2 % (0-3) Neutrophils # (Auto) 5.7 x10^3/uL (1.8-7.7) Lymphocytes # (Auto) 0.5 x10^3/uL (1.0-4.8) Monocytes # (Auto) 0.5 x10^3/uL (0.0-1.1) Eosinophils # (Auto) 0.1 x10^3/uL (0.0-0.7) Basophils # (Auto) 0.1 x10^3/uL (0.0-0.2) Sodium Level 144 mmol/L (136-145) Potassium Level 4.7 mmol/L (3.5-5.1) Chloride Level 109 mmol/L (98-107) Carbon Dioxide Level 24 mmol/L (21-32) Anion Gap 11 (6-14) Blood Urea Nitrogen 60 mg/dL (8-26) Creatinine 6.0 mg/dL (0.7-1.3) Estimated GFR (Cockcroft-Gault) 12.0 BUN/Creatinine Ratio 10 (6-20) Glucose Level 82 mg/dL (70-99) Calcium Level 8.9 mg/dL (8.5-10.1) Total Bilirubin 0.7 mg/dL (0.2-1.0) Aspartate Amino Transf (AST/SGOT) 20 U/L (15-37) Alanine Aminotransferase (ALT/SGPT) 11 U/L (16-63) Alkaline Phosphatase 75 U/L (46-116) Troponin I Quantitative 0.058 ng/mL (0.000-0.055) FD-Dce-X-Type Natriuretic Peptide > 23701 pg/mL (0-124) Total Protein 7.0 g/dL (6.4-8.2) Albumin 2.7 g/dL (3.4-5.0) Albumin/Globulin Ratio 0.6 (1.0-1.7) Lipase 37 U/L (73-393) Glucose (Fingerstick) 78 mg/dL (70-99) 66 mg/dL (70-99) Test 06/05/19 07:30 06/05/19 10:00 06/05/19 16:45 06/05/19 17:11 Glucose (Fingerstick) 106 mg/dL (70-99) 92 mg/dL (70-99) Nasal Screen MRSA (PCR) Positive (Negative) Prothrombin Time 16.5 SEC (11.7-14.0) Prothromb Time International Ratio 1.4 (0.8-1.1) Triglycerides Level 67 mg/dL (0-150) Cholesterol Level 167 mg/dL (0-200) LDL Cholesterol, Calculated 106 mg/dL (0-100) VLDL Cholesterol, Calculated 13 mg/dL (0-40) Non-HDL Cholesterol Calculated 119 mg/dL (0-129) HDL Cholesterol 48 mg/dL (40-60) Cholesterol/HDL Ratio 3.5 Thyroid Stimulating Hormone (TSH) 4.093 uIU/mL (0.358-3.74) Test 06/05/19 20:26 06/06/19 07:27 Glucose (Fingerstick) 116 mg/dL (70-99) 91 mg/dL (70-99) Laboratory Tests Test 06/05/19 10:00 06/05/19 16:45 06/05/19 17:11 06/05/19 20:26 Nasal Screen MRSA (PCR) Positive (Negative) Prothrombin Time 16.5 SEC (11.7-14.0) Prothromb Time International Ratio 1.4 (0.8-1.1) Triglycerides Level 67 mg/dL (0-150) Cholesterol Level 167 mg/dL (0-200) LDL Cholesterol, Calculated 106 mg/dL (0-100) VLDL Cholesterol, Calculated 13 mg/dL (0-40) Non-HDL Cholesterol Calculated 119 mg/dL (0-129) HDL Cholesterol 48 mg/dL (40-60) Cholesterol/HDL Ratio 3.5 Thyroid Stimulating Hormone (TSH) 4.093 uIU/mL (0.358-3.74) Glucose (Fingerstick) 92 mg/dL (70-99) 116 mg/dL (70-99) Test 06/06/19 07:27 Glucose (Fingerstick) 91 mg/dL (70-99) Medications Current Medications Aspirin (Children'S Aspirin) 324 mg 1X ONCE PO ; Start 06/04/19 at 19:00; Stop 06/04/19 at 19:01; Status DC Nitroglycerin/ Dextrose 250 ml @ 0 mls/hr 1X ONCE IV Last administered on 06/04/19at 19:34; Start 06/04/19 at 19:30; Stop 06/05/19 at 16:25; Status DC Aspirin (Children'S Aspirin) 324 mg 1X ONCE PO Last administered on 06/04/19at 21:33; Start 06/04/19 at 21:30; Stop 06/04/19 at 21:31; Status DC Ondansetron HCl (Zofran) 4 mg PRN Q8HRS PRN IV NAUSEA/VOMITING 1ST CHOICE; Start 06/04/19 at 22:30; Stop 06/05/19 at 22:29; Status DC Acetaminophen (Tylenol) 650 mg PRN Q6HRS PRN PO MILD PAIN 1-3; Start 06/05/19 at 03:15; Stop 06/05/19 at 11:05; Status DC Sodium Chloride 1,000 ml @ 1,000 mls/hr Q1H PRN IV hypotension; Start 06/05/19 at 09:55; Stop 06/05/19 at 15:54; Status DC Acetaminophen (Tylenol) 500 mg 1X PRN PRN PO MILD PAIN / TEMP; Start 06/05/19 at 10:00; Stop 06/06/19 at 09:59 Diphenhydramine HCl (Benadryl) 25 mg 1X PRN PRN IV ITCHING; Start 06/05/19 at 10:00; Stop 06/06/19 at 09:59 Diphenhydramine HCl (Benadryl) 25 mg 1X PRN PRN IV ITCHING; Start 06/05/19 at 10:00; Stop 06/06/19 at 09:59 Sodium Chloride 1,000 ml @ 400 mls/hr Q2H30M PRN IV PATENCY; Start 06/05/19 at 09:55; Stop 06/05/19 at 21:54; Status DC Info (PHARMACY MONITORING -- do not chart) 1 each PRN DAILY PRN MC SEE COMMENTS; Start 06/05/19 at 10:00 Acetaminophen (Tylenol) 650 mg PRN Q6HRS PRN PO FEVER; Start 06/05/19 at 11:00 Aspirin (Children'S Aspirin) 81 mg DAILY PO Last administered on 06/06/19at 08:48; Start 06/05/19 at 12:00 Calcium Carbonate/ Glycine (Oscal) 500 mg BID PO Last administered on 06/06/19at 08:48; Start 06/05/19 at 21:00 Calcium Carbonate/ Glycine (Tums) 200 mg PRN Q4HRS PRN PO INDIGESTION; Start 06/05/19 at 11:00; Stop 06/05/19 at 12:36; Status DC Carvedilol (Coreg) 3.125 mg BIDWMEALS PO Last administered on 06/05/19at 16:01; Start 06/05/19 at 17:00; Stop 06/05/19 at 16:25; Status DC Cetirizine HCl (ZyrTEC) 10 mg DAILY PO Last administered on 06/06/19 08:47; Start 06/05/19 at 12:00 Acetaminophen/ Hydrocodone Bitart (Lortab 5/325) 1 tab PRN Q6HRS PRN PO PAIN; Start 06/05/19 at 11:00 Levothyroxine Sodium (Synthroid) 175 mcg DAILY06 PO Last administered on 06/06/19 07:24; Start 06/05/19 at 12:00 Neomycin/ Polymyxin/ Bacitracin (Triple Antibiotic Ointment) 1 pkt DAILY TP Last administered on 06/05/19 16:04; Start 06/05/19 at 12:00 Pramipexole Dihydrochloride (miraPEX) 0.25 mg DAILY PO Last administered on 06/06/19 08:48; Start 06/05/19 at 12:00 Zolpidem Tartrate (Ambien) 5 mg PRN QHS PRN PO sleep; Start 06/05/19 at 11:00 Non-Formulary Medication (Albuterol Sulfate (Ventolin Hfa Inhaler)) 1 puff Q6HRS PRN INH SHORTNESS OF BREATH; Start 06/05/19 at 11:00; Status UNV Atorvastatin Calcium (Lipitor) 80 mg QHS PO Last administered on 06/05/19at 20:40; Start 06/05/19 at 21:00 Non-Formulary Medication (Fluticasone Propionate (Flovent 110MCG Hfa)) 2 puff BID IH ; Start 06/05/19 at 21:00; Stop 06/05/19 at 11:08; Status DC Levetiracetam (Keppra) 1,000 mg BID PO Last administered on 06/06/19 08:47; Start 06/05/19 at 12:00 Losartan Potassium (Cozaar) 100 mg DAILY PO Last administered on 06/06/19 08:47; Start 06/06/19 at 09:00 Magnesium Oxide (Magnesium Oxide) 400 mg DAILY PO Last administered on 06/06/19 08:48; Start 06/06/19 at 09:00 Albuterol Sulfate (Ventolin Neb Soln) 2.5 mg PRN Q6HRS PRN NEB SHORTNESS OF BREATH Last administered on 06/05/19at 23:15; Start 06/05/19 at 11:15 Budesonide (Pulmicort) 0.5 mg RTBID NEB Last administered on 06/06/19at 07:32; Start 06/05/19 at 12:00 Calcium Carbonate/ Glycine (Tums) 500 mg PRN Q4HRS PRN PO INDIGESTION; Start 06/05/19 at 12:36 Carvedilol (Coreg) 6.25 mg BIDWMEALS PO Last administered on 06/06/19at 08:47; Start 06/05/19 at 17:00 Isosorbide Mononitrate (Imdur) 60 mg DAILY PO Last administered on 06/06/19at 08:48; Start 06/06/19 at 09:00 Hydralazine HCl (Apresoline Inj) 10 mg PRN Q4HRS PRN IVP ELEVATED BP, SEE COMMENTS; Start 06/05/19 at 16:30 Labetalol HCl (Normodyne Iv Push) 20 mg PRN Q2HR PRN IVP HYPERTENSION; Start 06/05/19 at 20:15 Ondansetron HCl (Zofran) 4 mg PRN Q6HRS PRN IVP NAUSEA/VOMITING 1ST CHOICE Last administered on 06/05/19at 23:13; Start 06/05/19 at 23:15 Active Scripts Active Hydrocodone-Acetamin 5-325 mg (Hydrocodone/Acetaminophen) 1 Each Tablet 1 Each PO PRN Q6HRS PRN Isosorbide Mononitrate Er (Isosorbide Mononitrate) 30 Mg Tab.er.24h 30 Mg PO DAILY 30 Days Coreg (Carvedilol) 3.125 Mg Tablet 3.125 Mg PO BIDWMEALS Flovent 110MCG Hfa (Fluticasone Propionate) 12 Gm Aer.w.adap 2 Puff IH BID Zolpidem Tartrate 5 Mg Tablet 1 Tab PO QHS PRN Mirapex (Pramipexole Di-Hcl) 0.25 Mg Tablet 1 Tab PO DAILY Ventolin Hfa Inhaler (Albuterol Sulfate) 18 Gm Hfa.aer.ad 1 Puff INH Q6HRS PRN Levothyroxine Sodium 175 Mcg Tablet 175 Mcg PO DAILYAC Reported Triple Antibiotic Ointment Pkt (Neomycin/Bacitracin/Polymyxinb) 1 Each Oint.pack 1 Each TP DAILY Losartan Potassium 100 Mg Tablet 100 Mg PO DAILY Atorvastatin Calcium 80 Mg Tablet 80 Mg PO HS Cetirizine Hcl 10 Mg Tablet 1 Tab PO DAILY Magnesium (Magnesium Oxide) 400 Mg Capsule 250 Mg PO BID Tums (Calcium Carbonate) 200 Mg Tab.chew 200 Mg PO PRN Q4HRS PRN Aspirin 81 Mg Tab.chew 1 Tab PO DAILY Calcium Carbonate 500 Mg Tablet 500 Mg PO BID Keppra (Levetiracetam) 1,000 Mg Tablet 1 Tab PO BID Tylenol (Acetaminophen) 325 Mg Tablet 650 Mg PO PRN Q6HRS PRN Vitals/I & O Vital Sign - Last 24 Hours 06/05/19 06/05/19 06/05/19 06/05/19 12:39 16:01 17:49 19:22 Pulse 104 88 B/P (MAP) 173/72 141/63 Pulse Ox 100 O2 Delivery Room Air Room Air 06/05/19 06/05/19 06/05/19 06/05/19 19:43 19:58 22:58 23:15 Temp 98.4 98.6 98.4 98.6 Pulse 80 83 Resp 16 16 B/P (MAP) 125/59 (81) 125/66 (85) Pulse Ox 96 95 93 99 O2 Delivery Room Air Room Air Room Air Room Air 06/06/19 06/06/19 06/06/19 06/06/19 03:29 07:23 07:34 08:47 Temp 98.0 98.4 98.0 98.4 Pulse 80 82 82 Resp 18 18 B/P (MAP) 144/67 (92) 144/64 (90) 144/64 Pulse Ox 95 94 99 O2 Delivery Room Air Room Air Room Air 06/06/19 06/06/19 08:47 08:48 Pulse 82 82 B/P (MAP) 144/64 144/64 Intake and Output 06/05/19 06/05/19 06/06/19 15:00 23:00 07:00 Intake Total 400 ml Output Total 275 ml 275 ml Balance -275 ml 125 ml NICHOLE THORNTON MD Jun 06, 2019 09:20
[2019-06-06 11:08] VITALS: BP 175/78
--- NOTE | 2019-06-06 11:45 | CARD ---
MR#: [id number] Date of Study: 06/06/2019 Ordering Physician: BRENDA HAWLEY, Referring Physician: Loyda MORALES: Pamella Fernandez APPROVED REPORT EXAM: Two-dimensional and M-mode echocardiogram with Doppler and color Doppler. Other Information Quality : AverageHR: 90bpm Technically limited study due to body habitus. INDICATION Chest Pain Surgery/Intervention Date: 2D DIMENSIONS RVDd2.9 (2.9-3.5cm)Left Atrium(2D)5.5 (1.6-4.0cm) IVSd1.6 (0.7-1.1cm)Aortic Root(2D)3.1 (2.0-3.7cm) LVDd6.2 (3.9-5.9cm)LVOT Diameter2.2 (1.8-2.4cm) PWd1.5 (0.7-1.1cm)LVDs4.5 (2.5-4.0cm) FS (%) 27.5 %SV100.6 ml LVEF(%)52.5 (>50%) Aortic Valve AoV Peak Balwinder.119.2cm/sAoV VTI21.6cm AO Peak GR.5.7mmHgLVOT Peak Balwinder.103.2cm/s LVOT VTI 21.50cmAO Mean GR.4mmHg MAO (VMAX)2.52sj0WAU (VTI)3.92cm2 Mitral Valve MV E Lkyajpzi87.8cm/sMV E Peak Gr.96mmHg MV DECEL [id number] A Gmehxgyv09.4cm/s MV [id number]/A Ratio2.1 MVA (PHT)3.39cm2 TDI E/Lateral E'14.3E/Medial E'25.5 Pulmonary Valve PV Peak Vbapepnb72.9cm/sPV Peak Grad.2mmHg Tricuspid Valve TR P. [id number]/sRAP [id number] TR Peak Gr.57cuHgLSXG07voPv Pulmonary Vein S1 Uuysqfvs42.3cm/sD2 Ajyowfft27.1cm/s PVa [id number] LEFT VENTRICLE The left ventricle is normal size. There is mild to moderate concentric left ventricular hypertrophy. The left ventricular systolic function is normal and the ejection fraction is within normal range. T he Ejection Fraction is 55-60%. There is normal LV segmental wall motion. Transmitral Doppler flow pa ttern is Grade II-pseudonormal filling dynamics. RIGHT VENTRICLE The right ventricle is normal size. There is normal right ventricular wall thickness. The right ventr icular systolic function is normal. ATRIA The left atrium is mildly to moderately dilated. The right atrium is mildly dilated. The interatrial septum is intact with no evidence for an atrial septal defect or patent foramen ovale as noted on 2-D or Doppler imaging. AORTIC VALVE Not well visualized. Doppler and Color Flow revealed no significant aortic regurgitation. There is no significant aortic valvular stenosis. MITRAL VALVE The mitral valve is thickened but opens well. Mitral annular calcification is mild. A posterior kev l valve prolapse is present. There is no mitral valve stenosis. Doppler and Color Flow revealed mild to moderate mitral regurgitation. TRICUSPID VALVE Not well visualized. Doppler and Color Flow revealed no tricuspid valve regurgitation noted. There is no tricuspid valve stenosis. PULMONIC VALVE Not well visualized. GREAT VESSELS The aortic root is normal in size. The ascending aorta is normal in size. The IVC is dilated and tim apses <50% with inspiration. PERICARDIAL EFFUSION There is no pleural effusion. There is no evidence of significant pericardial effusion. Critical Notification Critical Value: No <Conclusion> The left ventricular systolic function is normal and the ejection fraction is within normal range. Th e Ejection Fraction is 55-60%. There is normal LV segmental wall motion. Doppler and Color Flow revealed mild to moderate mitral regurgitation. Technically difficult study Signed by : Avni Kaur, Electronically Approved : 06/06/2019 11:45:17
--- NOTE | 2019-06-06 13:58 | PDOC ---
SUBJECTIVE ROS Stable, On RA OBJECTIVE Vital Signs Vital Signs Date Time Temp Pulse Resp B/P (MAP) Pulse Ox O2 Delivery O2 Flow Rate FiO2 06/06/19 11:08 98.4 82 18 175/78 (110) 95 Room Air 98.4 I & 0 Intake and Output 06/06/19 07:00 Intake Total 400 ml Output Total 550 ml Balance -150 ml Intake Oral 400 ml Output Urine Total 550 ml PHYSICAL EXAM Physical Exam GEN: no acute distress. HEENT: OM moist , On RA NECK: Supple. LUNGS: Clear to auscultation. HEART: S1, S2. ABDOMEN: Obese, soft, nontender, EXTREMITIES: Left upper extremity fistula without signs of any complications. Right TMA Lt BKA SKIN: No rash. NEUROLOGIC: Grossly n ormal No Henry DIAGNOSIS/ASSESSMENT Assessment & Plan ESRD- On HD TTS @ [facility] Chronic severe Non compliance, refuses to come for HD with Travel waiting outside his house, Police has been sent to his home to check on him and he has refused to come for HD Multiple lengthy discussions with pt and , dont show up for care conferences No indication today, On RA Shortness of breath at presentation - Chronic Non compliance with HD Cxr - No congestion reported HTN- BP high , Non complaince with HD and meds Continue antihypertensives R TMA wound infection - fever and drainage 02/20 s/p amputation on 11/28 h/o recent fifth and fourth toe amputation sites with osteomyelitis with deep tissue infection with cultures positive for Diabetes mellitus with peripheral neuropathy. Peripheral vascular disease Anemia-- KEITH per protocol Currently Hgb > 10 COMMENT/RELEVANT DATA Meds Current Medications Medications (Trade) Dose Ordered Sig/[place] Start Time Stop Time Status Last Admin Dose Admin Acetaminophen (Tylenol) 650 mg PRN Q6HRS PRN 06/05/19 11:00 Acetaminophen/ Hydrocodone Bitart (Lortab 5/325) 1 tab PRN Q6HRS PRN 06/05/19 11:00 Albuterol Sulfate (Ventolin Neb Soln) 2.5 mg PRN Q6HRS PRN 06/05/19 11:15 06/05/19 23:15 2.5 MG Aspirin (Children'S Aspirin) 81 mg DAILY 06/05/19 12:00 06/06/19 08:48 81 MG Atorvastatin Calcium (Lipitor) 80 mg QHS 06/05/19 21:00 06/05/19 20:40 80 MG Budesonide (Pulmicort) 0.5 mg RTBID 06/05/19 12:00 06/06/19 07:32 0.5 MG Calcium Carbonate/ Glycine (Oscal) 500 mg BID 06/05/19 21:00 06/06/19 08:48 500 MG Calcium Carbonate/ Glycine (Tums) 500 mg PRN Q4HRS PRN 06/05/19 12:36 Carvedilol (Coreg) 6.25 mg BIDWMEALS 06/05/19 17:00 06/06/19 08:47 6.25 MG Cetirizine HCl (ZyrTEC) 10 mg DAILY 06/05/19 12:00 06/06/19 08:47 10 MG Diphenhydramine HCl (Benadryl) 25 mg 1X PRN PRN 06/05/19 10:00 06/06/19 09:59 DC Hydralazine HCl (Apresoline Inj) 10 mg PRN Q4HRS PRN 06/05/19 16:30 Info (PHARMACY MONITORING -- do not chart) 1 each PRN DAILY PRN 06/05/19 10:00 Isosorbide Mononitrate (Imdur) 60 mg DAILY 06/06/19 09:00 06/06/19 08:48 60 MG Labetalol HCl (Normodyne Iv Push) 20 mg PRN Q2HR PRN 06/05/19 20:15 Levetiracetam (Keppra) 1,000 mg BID 06/05/19 12:00 06/06/19 08:47 1,000 MG Levothyroxine Sodium (Synthroid) 175 mcg DAILY06 06/05/19 12:00 06/06/19 07:24 175 MCG Losartan Potassium (Cozaar) 100 mg DAILY 06/06/19 09:00 06/06/19 08:47 100 MG Magnesium Oxide (Magnesium Oxide) 400 mg DAILY 06/06/19 09:00 06/06/19 08:48 400 MG Neomycin/ Polymyxin/ Bacitracin (Triple Antibiotic Ointment) 1 pkt DAILY 06/05/19 12:00 06/05/19 16:04 1 PKT Nitroglycerin/ Dextrose 250 ml @ 0 mls/hr 1X ONCE 06/04/19 19:30 06/05/19 16:25 DC 06/04/19 19:34 1.5 MLS/HR Non-Formulary Medication (Albuterol Sulfate (Ventolin Hfa Inhaler)) 1 puff Q6HRS PRN 06/05/19 11:00 UNV Non-Formulary Medication (Fluticasone Propionate (Flovent 110MCG Hfa)) 2 puff BID 06/05/19 21:00 06/05/19 11:08 DC Ondansetron HCl (Zofran) 4 mg PRN Q6HRS PRN 06/05/19 23:15 06/05/19 23:13 4 MG Pramipexole Dihydrochloride (miraPEX) 0.25 mg DAILY 06/05/19 12:00 06/06/19 08:48 0.25 MG Sodium Chloride 1,000 ml @ 400 mls/hr Q2H30M PRN 06/05/19 09:55 06/05/19 21:54 DC Zolpidem Tartrate (Ambien) 5 mg PRN QHS PRN 06/05/19 11:00 Lab Laboratory Tests Test 06/05/19 16:45 06/05/19 17:11 06/05/19 20:26 06/06/19 07:27 Prothrombin Time 16.5 SEC (11.7-14.0) Prothromb Time International Ratio 1.4 (0.8-1.1) Triglycerides Level 67 mg/dL (0-150) Cholesterol Level 167 mg/dL (0-200) LDL Cholesterol, Calculated 106 mg/dL (0-100) VLDL Cholesterol, Calculated 13 mg/dL (0-40) Non-HDL Cholesterol Calculated 119 mg/dL (0-129) HDL Cholesterol 48 mg/dL (40-60) Cholesterol/HDL Ratio 3.5 Thyroid Stimulating Hormone (TSH) 4.093 uIU/mL (0.358-3.74) Glucose (Fingerstick) 92 mg/dL (70-99) 116 mg/dL (70-99) 91 mg/dL (70-99) Test 06/06/19 11:42 Glucose (Fingerstick) 126 mg/dL (70-99) Results All relevant outside records, renal labs, imaging studies, telemetry/EKG's were reviewed. MINA RICHARDSON MD Jun 06, 2019 13:58
[2019-06-06 15:00] VITALS: BP 141/65
[2019-06-06] MEDS ORDERED: CARVEDILOL 6.25 MG TABLET. ONE (17:36)
--- NOTE | 2019-06-06 18:31 | PDOC ---
CARDIOLOGY PROGRESS NOTE SUBJECTIVE: No acute events overnight. OBJECTIVE: Vital Signs/I&O: Vital Signs Date Time Temp Pulse Resp B/P (MAP) Pulse Ox O2 Delivery O2 Flow Rate FiO2 06/06/19 15:00 98.3 81 18 141/65 (90) 92 Room Air 98.3 I & O 06/05/19 06/05/19 06/06/19 15:00 23:00 07:00 Intake Total 400 ml Output Total 275 ml 275 ml Balance -275 ml 125 ml Objective: GEN.: No apparent distress. Alert and oriented. HEENT: Head is normocephalic, atraumatic NECK: Supple. LUNGS: Clear to auscultation. HEART: RRR, S1, S2 present. Peripheral pulses intact ABDOMEN: Soft, nontender. Positive bowel sounds. EXTREMITIES: 2+ edema. NEUROLOGIC: Normal speech, normal tone PSYCHIATRIC: Normal affect, normal mood. CURRENT MEDICATIONS: Current Medications Medications (Trade) Dose Ordered Sig/[place] Route PRN Reason Start Time Stop Time Status Last Admin Dose Admin Calcium Carbonate/ Glycine (Oscal) 500 mg BID PO 06/05/19 21:00 06/06/19 08:48 Atorvastatin Calcium (Lipitor) 80 mg QHS PO 06/05/19 21:00 06/05/19 20:40 Losartan Potassium (Cozaar) 100 mg DAILY PO 06/06/19 09:00 06/06/19 08:47 Magnesium Oxide (Magnesium Oxide) 400 mg DAILY PO 06/06/19 09:00 06/06/19 08:48 Isosorbide Mononitrate (Imdur) 60 mg DAILY PO 06/06/19 09:00 06/06/19 08:48 Ondansetron HCl (Zofran) 4 mg PRN Q6HRS PRN IVP NAUSEA/VOMITING 1ST CHOICE 06/05/19 23:15 06/05/19 23:13 DIAGNOSTIC TESTING: Labs reviewed. Labs: Laboratory Tests Test 06/05/19 20:26 06/06/19 07:27 06/06/19 11:42 06/06/19 17:18 Glucose (Fingerstick) 116 mg/dL (70-99) H 91 mg/dL (70-99) 126 mg/dL (70-99) H 124 mg/dL (70-99) H ASSESSMENT: 1. 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 CAD - stable 3. Dyslipidemia 4. Failure to thrive. PLAN: 1. Continue present meds. If he has any further hypertension, can add hydralazine 50mg bid. Otherwise, continue asa, statin, coreg, losartan and imdur. Supportive care. No further CV testing needed. Ok to DC from CV standpoint. Echo reviewed. Thanks ROB LOOMIS MD Jun 06, 2019 18:31
[2019-06-06 19:55] VITALS: BP 122/58
[2019-06-06] MEDS: ATORVASTATIN CALCIUM 40 MG TABLET. PO SCH (21:18)
[2019-06-06 23:00] VITALS: BP 135/60
[2019-06-07] MEDS: ALBUTEROL SULFATE 2.5 MG/3 ML NEBU. NEB PRN (03:29)
[2019-06-07 03:30] VITALS: BP 166/70
[2019-06-07] MEDS: LEVOTHYROXINE 175 MCG TABLET PO SCH (06:15)
[2019-06-07 07:00] VITALS: BP 138/60
[2019-06-07] MEDS: BUDESONIDE 0.5 MG/2 ML NEBU. NEB SCH (07:33)
[2019-06-07] MEDS: CARVEDILOL 6.25 MG TABLET. PO SCH (08:50)
[2019-06-07] MEDS: ISOSORBIDE MONONITRATE ER 30 MG TAB.ER.24H PO SCH (08:50)
[2019-06-07] MEDS: MAGNESIUM OXIDE 400 MG TABLET PO SCH (08:50)
[2019-06-07 08:51] VITALS: BP 138/60
[2019-06-07] MEDS: CALCIUM CARBONATE 500 MG TABLET PO SCH (08:51)
[2019-06-07] MEDS: levETIRAcetam 500 MG TABLET PO SCH (08:51)
[2019-06-07] MEDS: CETIRIZINE HCL 10 MG TABLET. PO SCH (08:51)
[2019-06-07] MEDS: ASPIRIN CHEWABLE 81 MG TABLET. PO SCH (08:51)
[2019-06-07] MEDS: LOSARTAN POTASSIUM 50 MG TABLET. PO SCH (08:51)
[2019-06-07] MEDS: NEOMY/BACITR/POLYMYXIN OINT PACKET. TP SCH (08:51)
[2019-06-07] MEDS: PRAMIPEXOLE 0.25 MG TABLET. PO SCH (08:51)
--- NOTE | 2019-06-07 09:06 | PDOC ---
PROGRESS NOTES History of Present Illness History of Present Illness VTE Prophylaxis Ordered VTE Prophylaxis Devices: Yes VTE Pharmacological Prophylaxi: Yes discharge dx Assessment/Plan impression ESRD ON DIALYSIS NONCOMPLIANCE MORBID OBESITY CHEST DISCOMFORT mild troponin i elevation prior Osteo infection feet follows with wound care with poor compliance Dm2, prior poor control PLAN ADMIT CONSULT NEPHROLOGY Dialysis today CONSULT CARDIOLOGY ok with d/c today bp control home meds dvt prophylaxis ECHO 32 min pt exam, chart review d/c planning time, > 50% of time spent with exam, chart review, pt care coordination Vitals Vitals Vital Signs Date Time Temp Pulse Resp B/P (MAP) Pulse Ox O2 Delivery O2 Flow Rate FiO2 06/07/19 08:51 88 138/60 06/07/19 07:34 94 Room Air 06/07/19 03:30 98.0 22 98.0 Physical Exam General: Alert, Oriented X3, Cooperative, No acute distress Heart: Regular rate (SR), Other (distant heart sounds) Lungs: Clear, Crackles Abdomen: Normal bowel sounds, Soft, No tenderness, Other (obese) Extremities: No cyanosis, Other (2-3+ bilateral LE pitting edema) Skin: No breakdown Labs LABS Laboratory Tests Test 06/06/19 11:42 06/06/19 17:18 06/06/19 21:07 06/07/19 08:05 Glucose (Fingerstick) 126 mg/dL (70-99) 124 mg/dL (70-99) 152 mg/dL (70-99) 121 mg/dL (70-99) Assessment and Plan Assessmemt and Plan Problems Medical Problems: (1) Dyspnea Status: Acute Comment Review of Relevant I have reviewed the following items lila (where applicable) has been applied. Labs Laboratory Tests Test 06/05/19 10:00 06/05/19 16:45 06/05/19 17:11 06/05/19 20:26 Nasal Screen MRSA (PCR) Positive (Negative) Prothrombin Time 16.5 SEC (11.7-14.0) Prothromb Time International Ratio 1.4 (0.8-1.1) Triglycerides Level 67 mg/dL (0-150) Cholesterol Level 167 mg/dL (0-200) LDL Cholesterol, Calculated 106 mg/dL (0-100) VLDL Cholesterol, Calculated 13 mg/dL (0-40) Non-HDL Cholesterol Calculated 119 mg/dL (0-129) HDL Cholesterol 48 mg/dL (40-60) Cholesterol/HDL Ratio 3.5 Thyroid Stimulating Hormone (TSH) 4.093 uIU/mL (0.358-3.74) Glucose (Fingerstick) 92 mg/dL (70-99) 116 mg/dL (70-99) Test 06/06/19 07:27 06/06/19 11:42 06/06/19 17:18 06/06/19 21:07 Glucose (Fingerstick) 91 mg/dL (70-99) 126 mg/dL (70-99) 124 mg/dL (70-99) 152 mg/dL (70-99) Test 06/07/19 08:05 Glucose (Fingerstick) 121 mg/dL (70-99) Laboratory Tests Test 06/06/19 11:42 06/06/19 17:18 06/06/19 21:07 06/07/19 08:05 Glucose (Fingerstick) 126 mg/dL (70-99) 124 mg/dL (70-99) 152 mg/dL (70-99) 121 mg/dL (70-99) Medications Current Medications Aspirin (Children'S Aspirin) 324 mg 1X ONCE PO ; Start 06/04/19 at 19:00; Stop 06/04/19 at 19:01; Status DC Nitroglycerin/ Dextrose 250 ml @ 0 mls/hr 1X ONCE IV Last administered on 06/04/19at 19:34; Start 06/04/19 at 19:30; Stop 06/05/19 at 16:25; Status DC Aspirin (Children'S Aspirin) 324 mg 1X ONCE PO Last administered on 06/04/19at 21:33; Start 06/04/19 at 21:30; Stop 06/04/19 at 21:31; Status DC Ondansetron HCl (Zofran) 4 mg PRN Q8HRS PRN IV NAUSEA/VOMITING 1ST CHOICE; Start 06/04/19 at 22:30; Stop 06/05/19 at 22:29; Status DC Acetaminophen (Tylenol) 650 mg PRN Q6HRS PRN PO MILD PAIN 1-3; Start 06/05/19 at 03:15; Stop 06/05/19 at 11:05; Status DC Sodium Chloride 1,000 ml @ 1,000 mls/hr Q1H PRN IV hypotension; Start 06/05/19 at 09:55; Stop 06/05/19 at 15:54; Status DC Acetaminophen (Tylenol) 500 mg 1X PRN PRN PO MILD PAIN / TEMP; Start 06/05/19 at 10:00; Stop 06/06/19 at 09:59; Status DC Diphenhydramine HCl (Benadryl) 25 mg 1X PRN PRN IV ITCHING; Start 06/05/19 at 10:00; Stop 06/06/19 at 09:59; Status DC Diphenhydramine HCl (Benadryl) 25 mg 1X PRN PRN IV ITCHING; Start 06/05/19 at 10:00; Stop 06/06/19 at 09:59; Status DC Sodium Chloride 1,000 ml @ 400 mls/hr Q2H30M PRN IV PATENCY; Start 06/05/19 at 09:55; Stop 06/05/19 at 21:54; Status DC Info (PHARMACY MONITORING -- do not chart) 1 each PRN DAILY PRN MC SEE COMMENTS; Start 06/05/19 at 10:00 Acetaminophen (Tylenol) 650 mg PRN Q6HRS PRN PO FEVER; Start 06/05/19 at 11:00 Aspirin (Children'S Aspirin) 81 mg DAILY PO Last administered on 06/07/19at 08:51; Start 06/05/19 at 12:00 Calcium Carbonate/ Glycine (Oscal) 500 mg BID PO Last administered on 06/07/19at 08:51; Start 06/05/19 at 21:00 Calcium Carbonate/ Glycine (Tums) 200 mg PRN Q4HRS PRN PO INDIGESTION; Start 1 at 11:00; Stop 06/05/19 at 12:36; Status DC Carvedilol (Coreg) 3.125 mg BIDWMEALS PO Last administered on 06/05/19at 16:01; Start 06/05/19 at 17:00; Stop 06/05/19 at 16:25; Status DC Cetirizine HCl (ZyrTEC) 10 mg DAILY PO Last administered on 06/07/19at 08:51; Start 06/05/19 at 12:00 Acetaminophen/ Hydrocodone Bitart (Lortab 5/325) 1 tab PRN Q6HRS PRN PO PAIN; Start 06/05/19 at 11:00 Levothyroxine Sodium (Synthroid) 175 mcg DAILY06 PO Last administered on 06/07/19 06:15; Start 06/05/19 at 12:00 Neomycin/ Polymyxin/ Bacitracin (Triple Antibiotic Ointment) 1 pkt DAILY TP Last administered on 06/07/19 08:51; Start 06/05/19 at 12:00 Pramipexole Dihydrochloride (miraPEX) 0.25 mg DAILY PO Last administered on 06/07/19 08:51; Start 06/05/19 at 12:00 Zolpidem Tartrate (Ambien) 5 mg PRN QHS PRN PO sleep; Start 06/05/19 at 11:00 Non-Formulary Medication (Albuterol Sulfate (Ventolin Hfa Inhaler)) 1 puff Q6HRS PRN INH SHORTNESS OF BREATH; Start 06/05/19 at 11:00; Status UNV Atorvastatin Calcium (Lipitor) 80 mg QHS PO Last administered on 06/06/19 21:18; Start 06/05/19 at 21:00 Non-Formulary Medication (Fluticasone Propionate (Flovent 110MCG Hfa)) 2 puff BID IH ; Start 06/05/19 at 21:00; Stop 06/05/19 at 11:08; Status DC Levetiracetam (Keppra) 1,000 mg BID PO Last administered on 06/07/19 08:51; Start 06/05/19 at 12:00 Losartan Potassium (Cozaar) 100 mg DAILY PO Last administered on 06/07/19 08:51; Start 06/06/19 at 09:00 Magnesium Oxide (Magnesium Oxide) 400 mg DAILY PO Last administered on 06/07/19 08:50; Start 06/06/19 at 09:00 Albuterol Sulfate (Ventolin Neb Soln) 2.5 mg PRN Q6HRS PRN NEB SHORTNESS OF BREATH Last administered on 06/07/19 03:29; Start 06/05/19 at 11:15 Budesonide (Pulmicort) 0.5 mg RTBID NEB Last administered on 10/26/19at 07:33; Start 06/05/19 at 12:00 Calcium Carbonate/ Glycine (Tums) 500 mg PRN Q4HRS PRN PO INDIGESTION; Start 06/05/19 at 12:36 Carvedilol (Coreg) 6.25 mg BIDWMEALS PO Last administered on 06/07/19at 08:50; Start 06/05/19 at 17:00 Isosorbide Mononitrate (Imdur) 60 mg DAILY PO Last administered on 06/07/19at 08:50; Start 06/06/19 at 09:00 Hydralazine HCl (Apresoline Inj) 10 mg PRN Q4HRS PRN IVP ELEV BP, SEE COMMENT, 2ND BRAXTON; Start 06/05/19 at 16:30 Labetalol HCl (Normodyne Iv Push) 20 mg PRN Q2HR PRN IVP HYPERTENSION, 1ST CHOICE; Start 06/05/19 at 20:15 Ondansetron HCl (Zofran) 4 mg PRN Q6HRS PRN IVP NAUSEA/VOMITING 1ST CHOICE Last administered on 06/05/19at 23:13; Start 06/05/19 at 23:15 Carvedilol (Coreg) 6.25 mg STK-MED ONCE .ROUTE ; Start 06/06/19 at 17:36; Stop 06/06/19 at 18:13; Status DC Active Scripts Active Hydrocodone-Acetamin 5-325 mg (Hydrocodone/Acetaminophen) 1 Each Tablet 1 Each PO PRN Q6HRS PRN Isosorbide Mononitrate Er (Isosorbide Mononitrate) 30 Mg Tab.er.24h 30 Mg PO DAILY 30 Days Coreg (Carvedilol) 3.125 Mg Tablet 3.125 Mg PO BIDWMEALS Flovent 110MCG Hfa (Fluticasone Propionate) 12 Gm Aer.w.adap 2 Puff IH BID Zolpidem Tartrate 5 Mg Tablet 1 Tab PO QHS PRN Mirapex (Pramipexole Di-Hcl) 0.25 Mg Tablet 1 Tab PO DAILY Ventolin Hfa Inhaler (Albuterol Sulfate) 18 Gm Hfa.aer.ad 1 Puff INH Q6HRS PRN Levothyroxine Sodium 175 Mcg Tablet 175 Mcg PO DAILYAC Reported Triple Antibiotic Ointment Pkt (Neomycin/Bacitracin/Polymyxinb) 1 Each Oint.pack 1 Each TP DAILY Losartan Potassium 100 Mg Tablet 100 Mg PO DAILY Atorvastatin Calcium 80 Mg Tablet 80 Mg PO HS Cetirizine Hcl 10 Mg Tablet 1 Tab PO DAILY Magnesium (Magnesium Oxide) 400 Mg Capsule 250 Mg PO BID Tums (Calcium Carbonate) 200 Mg Tab.chew 200 Mg PO PRN Q4HRS PRN Aspirin 81 Mg Tab.chew 1 Tab PO DAILY Calcium Carbonate 500 Mg Tablet 500 Mg PO BID Keppra (Levetiracetam) 1,000 Mg Tablet 1 Tab PO BID Tylenol (Acetaminophen) 325 Mg Tablet 650 Mg PO PRN Q6HRS PRN Vitals/I & O Vital Sign - Last 24 Hours 06/06/19 06/06/19 06/06/19 06/06/19 11:08 15:00 17:25 19:55 Temp 98.4 98.3 98.3 98.4 98.3 98.3 Pulse 82 81 81 84 Resp 18 18 21 B/P (MAP) 175/78 (110) 141/65 (90) 141/65 122/58 (79) Pulse Ox 95 92 92 O2 Delivery Room Air Room Air Room Air 06/06/19 06/06/19 06/06/19 06/07/19 20:00 20:44 23:00 03:29 Temp 98.1 98.1 Pulse 82 Resp 20 B/P (MAP) 135/60 (85) Pulse Ox 98 92 98 O2 Delivery Room Air Room Air Room Air Room Air 06/07/19 06/07/19 06/07/19 06/07/19 03:30 07:34 08:50 08:50 Temp 98.0 98.0 Pulse 85 88 88 Resp 22 B/P (MAP) 166/70 (102) 128/60 138/60 Pulse Ox 92 94 O2 Delivery Room Air Room Air 06/07/19 08:51 Pulse 88 B/P (MAP) 138/60 Intake and Output 06/06/19 06/06/19 06/07/19 15:00 23:00 07:00 Intake Total 480 ml 1000 ml 0 ml Output Total 300 ml 200 ml 200 ml Balance 180 ml 800 ml -200 ml NICHOLE THORNTON MD Jun 07, 2019 09:06
[2019-06-07] MEDS ORDERED: IV NORMAL SALINE 1000ML BAG 1,000 ML IV PRN ×2 (09:20)
[2019-06-07] MEDS ORDERED: DIALYSIS PATIENT. MC PRN ×2 (09:30)
--- NOTE | 2019-06-07 12:46 | PDOC3 ---
Discharge Summary Date of Admission: Jun 05, 2019 Date of Discharge: Jun 07, 2019 Follow-Up: 1-2 days Admitting Diagnosis comment: discharge dx ESRD ON DIALYSIS NONCOMPLIANCE MORBID OBESITY CHEST DISCOMFORT mild troponin i elevation prior Osteo infection feet follows with wound care with poor compliance Dm2, prior poor control PLAN ADMIT CONSULT NEPHROLOGY Dialysis today CONSULT CARDIOLOGY ok with d/c today bp control home meds dvt prophylaxis ECHO 32 min pt exam, chart review d/c planning time, > 50% of time spent with exam, chart review, pt care coordination Vitals Vitals Vital Signs Date Time Temp Pulse Resp B/P (MAP) Pulse Ox O2 Delivery O2 Flow Rate FiO2 06/07/19 08:51 88 138/60 06/07/19 07:34 94 Room Air 06/07/19 03:30 98.0 22 98.0 Physical Exam General: Alert, Oriented X3, Cooperative, No acute distress Heart: Regular rate (SR), Other (distant heart sounds) Lungs: Clear, Crackles Abdomen: Normal bowel sounds, Soft, No tenderness, Other (obese) Extremities: No cyanosis, Other (2-3+ bilateral LE pitting edema) Skin: No breakdown FINAL DIAGNOSIS Problems Medical Problems: (1) Dyspnea Status: Acute Brief Hospital Course Mr. Goel is a 53 old [sex] who presented with [chest pain, soa ] CONDITION AT DISCHARGE: Improved Discharge Medications Current Medications Aspirin (Children'S Aspirin) 324 mg 1X ONCE PO ; Start 06/04/19 at 19:00; Stop 06/04/19 at 19:01; Status DC Nitroglycerin/ Dextrose 250 ml @ 0 mls/hr 1X ONCE IV Last administered on 06/04/19at 19:34; Start 06/04/19 at 19:30; Stop 06/05/19 at 16:25; Status DC Aspirin (Children'S Aspirin) 324 mg 1X ONCE PO Last administered on 06/04/19at 21:33; Start 06/04/19 at 21:30; Stop 06/04/19 at 21:31; Status DC Ondansetron HCl (Zofran) 4 mg PRN Q8HRS PRN IV NAUSEA/VOMITING 1ST CHOICE; Start 06/04/19 at 22:30; Stop 06/05/19 at 22:29; Status DC Acetaminophen (Tylenol) 650 mg PRN Q6HRS PRN PO MILD PAIN 1-3; Start 06/05/19 at 03:15; Stop 06/05/19 at 11:05; Status DC Sodium Chloride 1,000 ml @ 1,000 mls/hr Q1H PRN IV hypotension; Start 06/05/19 at 09:55; Stop 06/05/19 at 15:54; Status DC Acetaminophen (Tylenol) 500 mg 1X PRN PRN PO MILD PAIN / TEMP; Start 06/05/19 at 10:00; Stop 06/06/19 at 09:59; Status DC Diphenhydramine HCl (Benadryl) 25 mg 1X PRN PRN IV ITCHING; Start 06/05/19 at 10:00; Stop 06/06/19 at 09:59; Status DC Diphenhydramine HCl (Benadryl) 25 mg 1X PRN PRN IV ITCHING; Start 06/05/19 at 10:00; Stop 06/06/19 at 09:59; Status DC Sodium Chloride 1,000 ml @ 400 mls/hr Q2H30M PRN IV PATENCY; Start 06/05/19 at 09:55; Stop 06/05/19 at 21:54; Status DC Info (PHARMACY MONITORING -- do not chart) 1 each PRN DAILY PRN MC SEE COMMENTS; Start 06/05/19 at 10:00 Acetaminophen (Tylenol) 650 mg PRN Q6HRS PRN PO FEVER; Start 06/05/19 at 11:00 Aspirin (Children'S Aspirin) 81 mg DAILY PO Last administered on 06/07/19at 08:51; Start 06/05/19 at 12:00 Calcium Carbonate/ Glycine (Oscal) 500 mg BID PO Last administered on 06/07/19at 08:51; Start 06/05/19 at 21:00 Calcium Carbonate/ Glycine (Tums) 200 mg PRN Q4HRS PRN PO INDIGESTION; Start 06/05/19 at 11:00; Stop 06/05/19 at 12:36; Status DC Carvedilol (Coreg) 3.125 mg BIDWMEALS PO Last administered on 06/05/19at 16:01; Start 06/05/19 at 17:00; Stop 06/05/19 at 16:25; Status DC Cetirizine HCl (ZyrTEC) 10 mg DAILY PO Last administered on 06/07/19 08:51; Start 06/05/19 at 12:00 Acetaminophen/ Hydrocodone Bitart (Lortab 5/325) 1 tab PRN Q6HRS PRN PO PAIN; Start 06/05/19 at 11:00 Levothyroxine Sodium (Synthroid) 175 mcg DAILY06 PO Last administered on 06/07/19 06:15; Start 06/05/19 at 12:00 Neomycin/ Polymyxin/ Bacitracin (Triple Antibiotic Ointment) 1 pkt DAILY TP Last administered on 06/07/19 08:51; Start 06/05/19 at 12:00 Pramipexole Dihydrochloride (miraPEX) 0.25 mg DAILY PO Last administered on 06/07/19 08:51; Start 06/05/19 at 12:00 Zolpidem Tartrate (Ambien) 5 mg PRN QHS PRN PO sleep; Start 06/05/19 at 11:00 Non-Formulary Medication (Albuterol Sulfate (Ventolin Hfa Inhaler)) 1 puff Q6HRS PRN INH SHORTNESS OF BREATH; Start 06/05/19 at 11:00; Status UNV Atorvastatin Calcium (Lipitor) 80 mg QHS PO Last administered on 06/06/19 21:18; Start 06/05/19 at 21:00 Non-Formulary Medication (Fluticasone Propionate (Flovent 110MCG Hfa)) 2 puff BID IH ; Start 06/05/19 at 21:00; Stop 06/05/19 at 11:08; Status DC Levetiracetam (Keppra) 1,000 mg BID PO Last administered on 06/07/19 08:51; Start 06/05/19 at 12:00 Losartan Potassium (Cozaar) 100 mg DAILY PO Last administered on 06/07/19 08: 51; Start 06/06/19 at 09:00 Magnesium Oxide (Magnesium Oxide) 400 mg DAILY PO Last administered on 06/07/19 08:50; Start 06/06/19 at 09:00 Albuterol Sulfate (Ventolin Neb Soln) 2.5 mg PRN Q6HRS PRN NEB SHORTNESS OF BREATH Last administered on 06/07/19at 03:29; Start 06/05/19 at 11:15 Budesonide (Pulmicort) 0.5 mg RTBID NEB Last administered on 06/07/19at 07:33; Start 06/05/19 at 12:00 Calcium Carbonate/ Glycine (Tums) 500 mg PRN Q4HRS PRN PO INDIGESTION; Start 06/05/19 at 12:36 Carvedilol (Coreg) 6.25 mg BIDWMEALS PO Last administered on 06/07/19at 08:50; Start 06/05/19 at 17:00 Isosorbide Mononitrate (Imdur) 60 mg DAILY PO Last administered on 06/07/19at 08:50; Start 06/06/19 at 09:00 Hydralazine HCl (Apresoline Inj) 10 mg PRN Q4HRS PRN IVP ELEV BP, SEE COMMENT, 2ND BRAXTON; Start 06/05/19 at 16:30 Labetalol HCl (Normodyne Iv Push) 20 mg PRN Q2HR PRN IVP HYPERTENSION, 1ST CHOICE; Start 06/05/19 at 20:15 Ondansetron HCl (Zofran) 4 mg PRN Q6HRS PRN IVP NAUSEA/VOMITING 1ST CHOICE Last administered on 06/05/19at 23:13; Start 06/05/19 at 23:15 Carvedilol (Coreg) 6.25 mg STK-MED ONCE .ROUTE ; Start 06/06/19 at 17:36; Stop 06/06/19 at 18:13; Status DC Sodium Chloride 1,000 ml @ 1,000 mls/hr Q1H PRN IV hypotension; Start 06/07/19 at 09:20; Stop 06/07/19 at 15:19 Sodium Chloride 1,000 ml @ 400 mls/hr Q2H30M PRN IV PATENCY; Start 06/07/19 at 09:20; Stop 06/07/19 at 21:19 Info (PHARMACY MONITORING -- do not chart) 1 each PRN DAILY PRN MC SEE COMMENTS; Start 06/07/19 at 09:30; Status UNV Info (PHARMACY MONITORING -- do not chart) 1 each PRN DAILY PRN MC SEE COMMENTS; Start 06/07/19 at 09:30 Active Scripts Active Hydrocodone-Acetamin 5-325 mg (Hydrocodone/Acetaminophen) 1 Each Tablet 1 Each PO PRN Q6HRS PRN Isosorbide Mononitrate Er (Isosorbide Mononitrate) 30 Mg Tab.er.24h 30 Mg PO DAILY 30 Days Coreg (Carvedilol) 3.125 Mg Tablet 3.125 Mg PO BIDWMEALS Flovent 110MCG Hfa (Fluticasone Propionate) 12 Gm Aer.w.adap 2 Puff IH BID Zolpidem Tartrate 5 Mg Tablet 1 Tab PO QHS PRN Mirapex (Pramipexole Di-Hcl) 0.25 Mg Tablet 1 Tab PO DAILY Ventolin Hfa Inhaler (Albuterol Sulfate) 18 Gm Hfa.aer.ad 1 Puff INH Q6HRS PRN Levothyroxine Sodium 175 Mcg Tablet 175 Mcg PO DAILYAC Reported Triple Antibiotic Ointment Pkt (Neomycin/Bacitracin/Polymyxinb) 1 Each Oint.pack 1 Each TP DAILY Losartan Potassium 100 Mg Tablet 100 Mg PO DAILY Atorvastatin Calcium 80 Mg Tablet 80 Mg PO HS Cetirizine Hcl 10 Mg Tablet 1 Tab PO DAILY Magnesium (Magnesium Oxide) 400 Mg Capsule 250 Mg PO BID Tums (Calcium Carbonate) 200 Mg Tab.chew 200 Mg PO PRN Q4HRS PRN Aspirin 81 Mg Tab.chew 1 Tab PO DAILY Calcium Carbonate 500 Mg Tablet 500 Mg PO BID Keppra (Levetiracetam) 1,000 Mg Tablet 1 Tab PO BID Tylenol (Acetaminophen) 325 Mg Tablet 650 Mg PO PRN Q6HRS PRN Vital Signs Vital Signs Date Time Temp Pulse Resp B/P (MAP) Pulse Ox O2 Delivery O2 Flow Rate FiO2 06/07/19 08:51 88 138/60 06/07/19 08:00 Room Air 06/07/19 07:34 94 06/07/19 07:00 97.7 22 97.7 Labs Laboratory Tests Test 06/05/19 16:45 06/05/19 17:11 06/05/19 20:26 06/06/19 07:27 Prothrombin Time 16.5 SEC (11.7-14.0) Prothromb Time International Ratio 1.4 (0.8-1.1) Triglycerides Level 67 mg/dL (0-150) Cholesterol Level 167 mg/dL (0-200) LDL Cholesterol, Calculated 106 mg/dL (0-100) VLDL Cholesterol, Calculated 13 mg/dL (0-40) Non-HDL Cholesterol Calculated 119 mg/dL (0-129) HDL Cholesterol 48 mg/dL (40-60) Cholesterol/HDL Ratio 3.5 Thyroid Stimulating Hormone (TSH) 4.093 uIU/mL (0.358-3.74) Glucose (Fingerstick) 92 mg/dL (70-99) 116 mg/dL (70-99) 91 mg/dL (70-99) Test 06/06/19 11:42 06/06/19 17:18 06/06/19 21:07 06/07/19 08:05 Glucose (Fingerstick) 126 mg/dL (70-99) 124 mg/dL (70-99) 152 mg/dL (70-99) 121 mg/dL (70-99) Laboratory Tests Test 06/06/19 17:18 06/06/19 21:07 06/07/19 08:05 Glucose (Fingerstick) 124 mg/dL (70-99) 152 mg/dL (70-99) 121 mg/dL (70-99) Allergies Allergies Coded Allergies Type Severity Reaction Last Updated Verified iodine Allergy Severe THROAT SWELLING 01/16/19 Yes lisinopril Allergy Severe 01/16/19 Yes Fish Containing Products Allergy Intermediate 01/16/19 Yes Penicillins Allergy Intermediate SEE COMMENT 01/16/19 Yes piperacillin Allergy Intermediate Hives 01/16/19 Yes tazobactam Allergy Intermediate 01/16/19 Yes I S O L A T I O N *CONTACT* Allergy Unknown 02/26/19 Yes Disposition/Orders: D/C to Home Patient Instructions d/c planning 32 min NICHOLE THORNTON MD Jun 07, 2019 12:46
[2019-06-07] MEDS ORDERED: CARV6.2511 PO (12:48)
--- NOTE | 2019-06-07 12:49 | DISCH ---
DISCHARGE INSTRUCTIONS Condition on Discharge Condition on Discharge: Stable Activity After Discharge Activity Instructions for Disc: Activity as tolerated Bathing Instructions: Shower-keep dressing dry, No Tub Bath until see Lifting Instructions after Dis: No heavy lifting Exercise Instruction after Dis: Progress as tolerated Driving Instructions after Dis: Do not drive, Other, see below Weight Bearing Status after Di: Other, see below Diet after Discharge Diet after Discharge: Renal Dialysis Diet Texture: Regular Liquid Texture: Thin Liquid Swallowing Supervision: None needed Wound Incision Care Wound/Incision Care: Change dressing Wound Care Equipment: Dressings Checks after Discharge Checks after discharge: Check blood press - daily, Check blood sugar, ac/hs, Check your Temp as needed, Weigh Yourself Daily Contacting the DRJaylen after DC Call your doctor for: Concerns you may have Treatment/Equipment after DC Adaptive Equipment Issued: None NICHOLE THORNTON MD Jun 07, 2019 12:49
--- NOTE | 2019-06-07 13:26 | PDOC ---
PROGRESS NOTES Subjective Subjective SEEN IN FOLLOW UP OF ESRD Objective Objective Vital Signs Date Time Temp Pulse Resp B/P (MAP) Pulse Ox O2 Delivery O2 Flow Rate FiO2 06/07/19 08:51 88 138/60 06/07/19 08:00 Room Air 06/07/19 07:34 94 06/07/19 07:00 97.7 22 97.7 Intake and Output 06/07/19 07:00 Intake Total 1480 ml Output Total 700 ml Balance 780 ml Intake Oral 1480 ml Output Urine Total 700 ml # Bowel Movements 1 Physical Exam Abdomen: Normal bowel sounds, Soft, No tenderness, No hepatosplenomegaly, No masses Heart: Regular rate, Normal S1, Normal S2, No murmurs, Gallops Extremities: No clubbing, No cyanosis, No edema, Normal pulses, No tenderness/swelling General: Alert, Oriented X3, Cooperative, No acute distress Psych/Mental Status: Mental status NL Diagnosis RENAL FAILURE: ESRD Assessment Assessment Problems Medical Problems: (1) Dyspnea Status: Acute Plan Plan of Care DIALYSIS TODAY IS IN PROGRESS. TOLERATING WELL. Comment Review of Relevant I have reviewed the following items lila (where applicable) has been applied. Labs Laboratory Tests Test 06/05/19 16:45 06/05/19 17:11 06/05/19 20:26 06/06/19 07:27 Prothrombin Time 16.5 SEC (11.7-14.0) Prothromb Time International Ratio 1.4 (0.8-1.1) Triglycerides Level 67 mg/dL (0-150) Cholesterol Level 167 mg/dL (0-200) LDL Cholesterol, Calculated 106 mg/dL (0-100) VLDL Cholesterol, Calculated 13 mg/dL (0-40) Non-HDL Cholesterol Calculated 119 mg/dL (0-129) HDL Cholesterol 48 mg/dL (40-60) Cholesterol/HDL Ratio 3.5 Thyroid Stimulating Hormone (TSH) 4.093 uIU/mL (0.358-3.74) Glucose (Fingerstick) 92 mg/dL (70-99) 116 mg/dL (70-99) 91 mg/dL (70-99) Test 06/06/19 11:42 06/06/19 17:18 06/06/19 21:07 06/07/19 08:05 Glucose (Fingerstick) 126 mg/dL (70-99) 124 mg/dL (70-99) 152 mg/dL (70-99) 121 mg/dL (70-99) Laboratory Tests Test 06/06/19 17:18 06/06/19 21:07 06/07/19 08:05 Glucose (Fingerstick) 124 mg/dL (70-99) 152 mg/dL (70-99) 121 mg/dL (70-99) Medications Current Medications Aspirin (Children'S Aspirin) 324 mg 1X ONCE PO ; Start 06/04/19 at 19:00; Stop 06/04/19 at 19:01; Status DC Nitroglycerin/ Dextrose 250 ml @ 0 mls/hr 1X ONCE IV Last administered on 06/04/19at 19:34; Start 06/04/19 at 19:30; Stop 06/05/19 at 16:25; Status DC Aspirin (Children'S Aspirin) 324 mg 1X ONCE PO Last administered on 06/04/19at 21:33; Start 06/04/19 at 21:30; Stop 06/04/19 at 21:31; Status DC Ondansetron HCl (Zofran) 4 mg PRN Q8HRS PRN IV NAUSEA/VOMITING 1ST CHOICE; Start 06/04/19 at 22:30; Stop 06/05/19 at 22:29; Status DC Acetaminophen (Tylenol) 650 mg PRN Q6HRS PRN PO MILD PAIN 1-3; Start 06/05/19 at 03:15; Stop 06/05/19 at 11:05; Status DC Sodium Chloride 1,000 ml @ 1,000 mls/hr Q1H PRN IV hypotension; Start 06/05/19 at 09:55; Stop 06/05/19 at 15:54; Status DC Acetaminophen (Tylenol) 500 mg 1X PRN PRN PO MILD PAIN / TEMP; Start 06/05/19 at 10:00; Stop 06/06/19 at 09:59; Status DC Diphenhydramine HCl (Benadryl) 25 mg 1X PRN PRN IV ITCHING; Start 06/05/19 at 10:00; Stop 06/06/19 at 09:59; Status DC Diphenhydramine HCl (Benadryl) 25 mg 1X PRN PRN IV ITCHING; Start 06/05/19 at 10:00; Stop 06/06/19 at 09:59; Status DC Sodium Chloride 1,000 ml @ 400 mls/hr Q2H30M PRN IV PATENCY; Start 06/05/19 at 09:55; Stop 06/05/19 at 21:54; Status DC Info (PHARMACY MONITORING -- do not chart) 1 each PRN DAILY PRN MC SEE COMMENTS; Start 06/05/19 at 10:00 Acetaminophen (Tylenol) 650 mg PRN Q6HRS PRN PO FEVER; Start 06/05/19 at 11:00 Aspirin (Children'S Aspirin) 81 mg DAILY PO Last administered on 06/07/19at 08:51; Start 06/05/19 at 12:00 Calcium Carbonate/ Glycine (Oscal) 500 mg BID PO Last administered on 06/07/19at 08:51; Start 06/05/19 at 21:00 Calcium Carbonate/ Glycine (Tums) 200 mg PRN Q4HRS PRN PO INDIGESTION; Start 06/05/19 at 11:00; Stop 06/05/19 at 12:36; Status DC Carvedilol (Coreg) 3.125 mg BIDWMEALS PO Last administered on 06/05/19at 16:01; Start 06/05/19 at 17:00; Stop 06/05/19 at 16:25; Status DC Cetirizine HCl (ZyrTEC) 10 mg DAILY PO Last administered on 06/07/19at 08:51; Start 06/05/19 at 12:00 Acetaminophen/ Hydrocodone Bitart (Lortab 5/325) 1 tab PRN Q6HRS PRN PO PAIN; Start 06/05/19 at 11:00 Levothyroxine Sodium (Synthroid) 175 mcg DAILY06 PO Last administered on 06/07/19at 06:15; Start 06/05/19 at 12:00 Neomycin/ Polymyxin/ Bacitracin (Triple Antibiotic Ointment) 1 pkt DAILY TP Last administered on 06/07/19at 08:51; Start 06/05/19 at 12:00 Pramipexole Dihydrochloride (miraPEX) 0.25 mg DAILY PO Last administered on 06/07/19at 08:51; Start 06/05/19 at 12:00 Zolpidem Tartrate (Ambien) 5 mg PRN QHS PRN PO sleep; Start 06/05/19 at 11:00 Non-Formulary Medication (Albuterol Sulfate (Ventolin Hfa Inhaler)) 1 puff Q6HRS PRN INH SHORTNESS OF BREATH; Start 06/05/19 at 11:00; Status UNV Atorvastatin Calcium (Lipitor) 80 mg QHS PO Last administered on 06/06/19at 21:18; Start 06/05/19 at 21:00 Non-Formulary Medication (Fluticasone Propionate (Flovent 110MCG Hfa)) 2 puff BID IH ; Start 06/05/19 at 21:00; Stop 06/05/19 at 11:08; Status DC Levetiracetam (Keppra) 1,000 mg BID PO Last administered on 06/07/19at 08:51; Start 06/05/19 at 12:00 Losartan Potassium (Cozaar) 100 mg DAILY PO Last administered on 06/07/19 08:51; Start 06/06/19 at 09:00 Magnesium Oxide (Magnesium Oxide) 400 mg DAILY PO Last administered on 06/07/19at 08:50; Start 06/06/19 at 09:00 Albuterol Sulfate (Ventolin Neb Soln) 2.5 mg PRN Q6HRS PRN NEB SHORTNESS OF BREATH Last administered on 06/07/19at 03:29; Start 06/05/19 at 11:15 Budesonide (Pulmicort) 0.5 mg RTBID NEB Last administered on 06/07/19at 07:33; Start 06/05/19 at 12:00 Calcium Carbonate/ Glycine (Tums) 500 mg PRN Q4HRS PRN PO INDIGESTION; Start 06/05/19 at 12:36 Carvedilol (Coreg) 6.25 mg BIDWMEALS PO Last administered on 06/07/19at 08:50; Start 06/05/19 at 17:00 Isosorbide Mononitrate (Imdur) 60 mg DAILY PO Last administered on 06/07/19at 08:50; Start 06/06/19 at 09:00 Hydralazine HCl (Apresoline Inj) 10 mg PRN Q4HRS PRN IVP ELEV BP, SEE COMMENT, 2ND BRAXTON; Start 06/05/19 at 16:30 Labetalol HCl (Normodyne Iv Push) 20 mg PRN Q2HR PRN IVP HYPERTENSION, 1ST CHOICE; Start 06/05/19 at 20:15 Ondansetron HCl (Zofran) 4 mg PRN Q6HRS PRN IVP NAUSEA/VOMITING 1ST CHOICE Last administered on 06/05/19at 23:13; Start 06/05/19 at 23:15 Carvedilol (Coreg) 6.25 mg STK-MED ONCE .ROUTE ; Start 06/06/19 at 17:36; Stop 06/06/19 at 18:13; Status DC Sodium Chloride 1,000 ml @ 1,000 mls/hr Q1H PRN IV hypotension; Start 06/07/19 at 09:20; Stop 06/07/19 at 15:19 Sodium Chloride 1,000 ml @ 400 mls/hr Q2H30M PRN IV PATENCY; Start 06/07/19 at 09:20; Stop 06/07/19 at 21:19 Info (PHARMACY MONITORING -- do not chart) 1 each PRN DAILY PRN MC SEE COMMENTS; Start 06/07/19 at 09:30; Status UNV Info (PHARMACY MONITORING -- do not chart) 1 each PRN DAILY PRN MC SEE COMMENTS; Start 06/07/19 at 09:30 Active Scripts Active Carvedilol (Carvedilol) 6.25 Mg Tablet 6.25 Mg PO BIDWMEALS 30 Days Isosorbide Mononitrate Er (Isosorbide Mononitrate) 30 Mg Tab.er.24h 30 Mg PO DAILY 30 Days Flovent 110MCG Hfa (Fluticasone Propionate) 12 Gm Aer.w.adap 2 Puff IH BID Mirapex (Pramipexole Di-Hcl) 0.25 Mg Tablet 1 Tab PO DAILY Ventolin Hfa Inhaler (Albuterol Sulfate) 18 Gm Hfa.aer.ad 1 Puff INH Q6HRS PRN Levothyroxine Sodium 175 Mcg Tablet 175 Mcg PO DAILYAC Reported Triple Antibiotic Ointment Pkt (Neomycin/Bacitracin/Polymyxinb) 1 Each Oint.pack 1 Each TP DAILY Losartan Potassium 100 Mg Tablet 100 Mg PO DAILY Atorvastatin Calcium 80 Mg Tablet 80 Mg PO HS Cetirizine Hcl 10 Mg Tablet 1 Tab PO DAILY Magnesium (Magnesium Oxide) 400 Mg Capsule 250 Mg PO BID Tums (Calcium Carbonate) 200 Mg Tab.chew 200 Mg PO PRN Q4HRS PRN Aspirin 81 Mg Tab.chew 1 Tab PO DAILY Calcium Carbonate 500 Mg Tablet 500 Mg PO BID Keppra (Levetiracetam) 1,000 Mg Tablet 1 Tab PO BID Tylenol (Acetaminophen) 325 Mg Tablet 650 Mg PO PRN Q6HRS PRN Vitals/I & O Vital Sign - Last 24 Hours 06/06/19 06/06/19 06/06/19 06/06/19 15:00 17:25 19:55 20:00 Temp 98.3 98.3 98.3 98.3 Pulse 81 81 84 Resp 18 21 B/P (MAP) 141/65 (90) 141/65 122/58 (79) Pulse Ox 92 92 O2 Delivery Room Air Room Air Room Air 06/06/19 06/06/19 06/07/19 06/07/19 20:44 23:00 03:29 03:30 Temp 98.1 98.0 98.1 98.0 Pulse 82 85 Resp 20 22 B/P (MAP) 135/60 (85) 166/70 (102) Pulse Ox 98 92 98 92 O2 Delivery Room Air Room Air Room Air Room Air 06/07/19 06/07/19 06/07/19 06/07/19 07:00 07:34 08:00 08:50 Temp 97.7 97.7 Pulse 76 88 Resp 22 B/P (MAP) 138/60 (86) 128/60 Pulse Ox 94 94 O2 Delivery Room Air Room Air Room Air 06/07/19 06/07/19 08:50 08:51 Pulse 88 88 B/P (MAP) 138/60 138/60 Intake and Output 06/06/19 06/06/19 06/07/19 15:00 23:00 07:00 Intake Total 480 ml 1000 ml 0 ml Output Total 300 ml 200 ml 200 ml Balance 180 ml 800 ml -200 ml RANJAN ROMERO MD Jun 07, 2019 13:26
== END 2019-06-07 15:30 | disposition home or self-care (01) | DRG 291 ==
LOC: ER 18:25 → 6 SOUTH 21:00 → 2 SOUTH 22:46
PROVIDERS: ADMIT Internal Medicine; ATTEND Internal Medicine
PROC: 5A1D70Z Performance of Urinary Filtration, Intermittent, Less than 6 Hours Per Day (ICD-10-PCS; 2019-06-05)
PROC: 5A1D70Z Performance of Urinary Filtration, Intermittent, Less than 6 Hours Per Day (ICD-10-PCS; principal; 2019-06-07)
DX: I13.2 Hypertensive heart and chronic kidney disease with heart failure and with stage 5 chronic kidney disease, or end stage renal disease (principal); I50.43 Acute on chronic combined systolic (congestive) and diastolic (congestive) heart failure; N18.6 End stage renal disease; E03.9 Hypothyroidism, unspecified; E11.22 Type 2 diabetes mellitus with diabetic chronic kidney disease; E11.51 Type 2 diabetes mellitus with diabetic peripheral angiopathy without gangrene; E66.01 Morbid (severe) obesity due to excess calories; E78.5 Hyperlipidemia, unspecified; F03.90 Unspecified dementia, unspecified severity, without behavioral disturbance, psychotic disturbance, mood disturbance, and anxiety; G89.29 Other chronic pain; I15.8 Other secondary hypertension; I16.0 Hypertensive urgency; I25.10 Atherosclerotic heart disease of native coronary artery without angina pectoris; I48.91 Unspecified atrial fibrillation; J44.9 Chronic obstructive pulmonary disease, unspecified; M06.9 Rheumatoid arthritis, unspecified; Z96.659 Presence of unspecified artificial knee joint; R62.7 Adult failure to thrive; Z79.891 Long term (current) use of opiate analgesic; Z82.49 Family history of ischemic heart disease and other diseases of the circulatory system; Z83.3 Family history of diabetes mellitus; Z86.73 Personal history of transient ischemic attack (TIA), and cerebral infarction without residual deficits; Z91.041 Radiographic dye allergy status; Z91.15 Patient's noncompliance with renal dialysis; Z91.19 Patient's noncompliance with other medical treatment and regimen; Z95.5 Presence of coronary angioplasty implant and graft; Z99.2 Dependence on renal dialysis; E21.3 Hyperparathyroidism, unspecified; F32.9 Major depressive disorder, single episode, unspecified; F41.9 Anxiety disorder, unspecified; K57.90 Diverticulosis of intestine, part unspecified, without perforation or abscess without bleeding; M19.90 Unspecified osteoarthritis, unspecified site; Z88.8 Allergy status to other drugs, medicaments and biological substances; Z91.013 Allergy to seafood; Z88.0 Allergy status to penicillin; Z79.4 Long term (current) use of insulin
CPT/HCPCS: 36415; 71045; 80053; 80061; 82962; 83690; 83880; 84443; 84484; 85025; 85610; 87641; 93005; 93306; 94640; 94760; 96365; J2405; J3490; J7613; J7626; 99285-25; G0378

== ENCOUNTER 2019-08-09 11:46 | Inpatient (IN) | payer OTHER, MEDICAID ==
[~2019-08-09] VITALS: Ht 198.1 cm; Wt 133.9 kg
[~2019-08-09 11:46] MED LIST changes: +NEOM1OIN13 TP
--- NOTE | 2019-08-09 12:15 | PHYS DOC ---
Past Medical History Past Medical History: Asthma, CVA, Diabetes-Type II, Hypertension, IA, Pneumonia, Renal Failure, Seizure, Other Additional Past Medical Histor: 8 MIs, 8 CVAs, multiple stents Past Surgical History: Angioplasty, Other Additional Past Surgical Histo: L FA HD SHUNT,TOE AMPUT,R ARM,RIGHT ARM FX,SCROTAL SX,HEART STENT Smoking: Quit Greater Than 1 Year Alcohol Use: None Drug Use: None Adult General Chief Complaint Chief Complaint: CHEST PAIN HPI HPI Patient is a 54 year old BIBEMS complex medical history including asthma, ACS status post stenting, CKD on dialysis (non-compliant), who presents with chest pain and SOB. The chest pain and SOB started 4 days ago. It is sharp, constant and reproducible on the right sternal region of his chest. Some dry cough with his symptoms. Pt reports he has not dialyzed since thanksgiving since he was busy after his recent diagnosis of stroke. Pt was hospitalized 3 months ago for similar non-compliant dialysis. Denies GI symptom, no leg pain. EMS gave him 324mg Aspirin in the field. Review of Systems Review of Systems Constitutional: Denies fever or chills Eyes: Denies redness or eye pain HENT: Denies nasal congestion or sore throat Respiratory: Positive cough or shortness of breath Cardiovascular: Positive chest pain. Denies palpitations GI: Denies abdominal pain, nausea, or vomiting : Denies dysuria or hematuria Musculoskeletal: Denies back pain or joint pain Integument: Denies rash or skin lesions Neurologic: Denies headache, focal weakness or sensory changes Complete systems were reviewed and found to be within normal limits, except as documented in this note. Current Medications Current Medications Current Medications Medications (Trade) Dose Ordered Sig/[place] Start Time Stop Time Status Last Admin Dose Admin Fentanyl Citrate (Fentanyl 2ml Vial) 50 mcg 1X ONCE 08/09/19 13:30 08/09/19 13:31 DC 08/09/19 13:30 50 MCG Allergies Allergies Allergies Coded Allergies Type Severity Reaction Last Updated Verified iodine Allergy Severe THROAT SWELLING 01/16/19 Yes lisinopril Allergy Severe 01/16/19 Yes Fish Containing Products Allergy Intermediate 01/16/19 Yes Penicillins Allergy Intermediate SEE COMMENT 01/16/19 Yes piperacillin Allergy Intermediate Hives 01/16/19 Yes tazobactam Allergy Intermediate 01/16/19 Yes I S O L A T I O N *CONTACT* Allergy Unknown 02/26/19 Yes Physical Exam Physical Exam Constitutional: Well developed, well nourished, no acute distress, non-toxic appearance HENT: Normocephalic, atraumatic, oropharynx moist Eyes: Conjunctiva normal, no discharge Neck: Normal range of motion, no tenderness, supple Cardiovascular: Heart rate normal, regular rhythm Lungs & Thorax: Decreased in lung sounds bilaterally, no wheezing, tenderness to palpation of right parasternal region Abdomen: Soft, no tenderness Skin: Warm, dry, no erythema, no rash Back: No tenderness, no CVA tenderness Extremities: No tenderness, ROM intact, no edema Neurologic: Alert and oriented X 3, normal motor function, normal sensory function, no focal deficits noted Psychologic: Affect normal, judgement normal Current Patient Data Vital Signs Vital Signs Date Time Temp Pulse Resp B/P (MAP) Pulse Ox O2 Delivery O2 Flow Rate FiO2 08/09/19 13:30 18 08/09/19 13:15 92 148/69 (95) 98 Nasal Cannula 2.0 08/09/19 11:46 99.0 99.0 Lab Values Laboratory Tests Test 08/09/19 13:15 White Blood Count 7.8 x10^3/uL (4.0-11.0) Red Blood Count 3.04 x10^6/uL (4.30-5.70) L Hemoglobin 8.4 g/dL (13.0-17.5) L Hematocrit 26.6 % (39.0-53.0) L Mean Corpuscular Volume 87 fL (79-100) Mean Corpuscular Hemoglobin 28 pg (25-35) Mean Corpuscular Hemoglobin Concent 32 g/dL (31-37) Red Cell Distribution Width 16.4 % (11.5-14.5) H Platelet Count 260 x10^3/uL (140-400) Neutrophils (%) (Auto) 80 % (31-73) H Lymphocytes (%) (Auto) 6 % (24-48) L Monocytes (%) (Auto) 13 % (0-9) H Eosinophils (%) (Auto) 1 % (0-3) Basophils (%) (Auto) 1 % (0-3) Neutrophils # (Auto) 6.2 x10^3/uL (1.8-7.7) Lymphocytes # (Auto) 0.4 x10^3/uL (1.0-4.8) L Monocytes # (Auto) 1.0 x10^3/uL (0.0-1.1) Eosinophils # (Auto) 0.1 x10^3/uL (0.0-0.7) Basophils # (Auto) 0.1 x10^3/uL (0.0-0.2) Sodium Level 137 mmol/L (136-145) Potassium Level 5.2 mmol/L (3.5-5.1) H Chloride Level 106 mmol/L (98-107) Carbon Dioxide Level 16 mmol/L (21-32) L Anion Gap 15 (6-14) H Blood Urea Nitrogen 74 mg/dL (8-26) H Creatinine 6.5 mg/dL (0.7-1.3) H Estimated GFR (Cockcroft-Gault) 10.9 BUN/Creatinine Ratio 11 (6-20) Glucose Level 141 mg/dL (70-99) H Calcium Level 8.6 mg/dL (8.5-10.1) Magnesium Level 2.2 mg/dL (1.8-2.4) Total Bilirubin 1.0 mg/dL (0.2-1.0) Aspartate Amino Transferase (AST) 13 U/L (15-37) L Alanine Aminotransferase (ALT) < 6 U/L (16-63) L Alkaline Phosphatase 73 U/L (46-116) Creatine Kinase 186 U/L (39-308) Creatine Kinase MB (Mass) 3.7 ng/mL (0.0-3.6) H Creatine Kinase MB Relative Index 2.0 % (0-4) Troponin I Quantitative < 0.017 ng/mL (0.000-0.055) RK-Npl-X-Type Natriuretic Peptide 63603 pg/mL (0-124) H Total Protein 7.7 g/dL (6.4-8.2) Albumin 2.0 g/dL (3.4-5.0) L Albumin/Globulin Ratio 0.4 (1.0-1.7) L Lipase 42 U/L (73-393) L Laboratory Tests 08/09/19 13:15 Laboratory Tests 08/09/19 13:15 EKG EKG 11:51:40 Sinus rhythm, right sided axis deviation, no peaked T wave, no ST elevation. P waves inverted in V2. No MA prolongation.[] Radiology/Procedures Radiology/Procedures PROCEDURE: PORTABLE CHEST 1V PORTABLE CHEST 1V History: Chest pain, midsternal pain for 3 days. Comparison with 06/04/2019 The cardiomediastinal silhouette remains somewhat widened, stable. Increased opacity in left mid to lower lung is now identified. No evidence of pneumothorax. No right pleural effusion. Right lung appears grossly clear. Endovascular stents are again seen. IMPRESSION: Left lower lobe infiltrate/consolidation and/or left pleural effusion has developed. Electronically signed by: Sher Ramos MD (08/09/2019 12:36 PM) [facility] Course & Med Decision Making Course & Med Decision Making Pertinent Labs and Imaging studies reviewed. (See chart for details) Patient is a 54 year old complex medical history including asthma, ACS status post stenting, CKD on dialysis (non-compliant), who presents with chest pain and SOB. DDX considered: PNA, CHF, pleural effusion, electrolytes imbalance secondary to non-compliant dialysis, MSK etiologies. Will order labs, CXR, EKG, troponin, BNP. Pt is stable. Will reassessed. Patient requiring admission for further evaluation and treatment. Discussed with Dr. Elaine (hospitalist) who is in agreement with admission. Discussed case with Dr. Urena (nephrology) who will set up inpatient HD. Discussed findings and plan with patient, who acknowledges understanding and agreement. Dragon Disclaimer Dragon Disclaimer This electronic medical record was generated, in whole or in part, using a voice recognition dictation system. Departure Departure Impression: Primary Impression: Chest pain Additional Impressions: Noncompliance with renal dialysis ESRD (end stage renal disease) Pleural effusion Disposition: ADMITTED INPATIENT Admitting Physician: BARBARA (Chele) Condition: STABLE Referrals: MARIA ISABEL LOPEZ DO (PCP) Problem Qualifiers Primary Impression: Chest pain Chest pain type: unspecified Qualified Codes: R07.9 - Chest pain, unspecified SHER LOMELI DO Aug 09, 2019 12:15
--- NOTE | 2019-08-09 12:39 | RAD ---
PORTABLE CHEST 1V History: Chest pain, midsternal pain for 3 days. Comparison with 06/04/2019 The cardiomediastinal silhouette remains somewhat widened, stable. Increased opacity in left mid to lower lung is now identified. No evidence of pneumothorax. No right pleural effusion. Right lung appears grossly clear. Endovascular stents are again seen. IMPRESSION: Left lower lobe infiltrate/consolidation and/or left pleural effusion has developed. Electronically signed by: Sher Ramos MD (08/09/2019 12:36 PM) [facility]
[2019-08-09] MEDS ORDERED: fentaNYL PF VIAL 100 MCG/2 ML VIAL IV ONE (13:30)
[2019-08-09 13:46] LABS: ANION GAP 15 (6-14); BLOOD UREA NITROGEN 74 mg/dL (8-26); BUN/CREATININE RATIO 11 (6-20); CALCIUM 8.6 mg/dL (8.5-10.1); CARBON DIOXIDE 16 mmol/L (21-32); CHLORIDE 106 mmol/L (98-107); CREATININE 6.5 mg/dL (0.7-1.3); GFR 10.9; GLUCOSE 141 mg/dL (70-99); POTASSIUM 5.2 mmol/L (3.5-5.1); SODIUM 137 mmol/L (136-145)
[2019-08-09 13:48] LABS: BASO # 0.1 x10^3/uL (0.0-0.2); BASO % 1 % (0-3); EOS # 0.1 x10^3/uL (0.0-0.7); EOS % 1 % (0-3); HEMATOCRIT 26.6 % (39.0-53.0); HEMOGLOBIN 8.4 g/dL (13.0-17.5); LYMPH # 0.4 x10^3/uL (1.0-4.8); LYMPH % 6 % (24-48); MEAN CORPUSCULAR HEMOGLOBIN 28 pg (25-35); MEAN CORPUSCULAR HGB CONC 32 g/dL (31-37); MEAN CORPUSCULAR VOLUME 87 fL (79-100); MONO % 13 % (0-9); NEUT # 6.2 x10^3/uL (1.8-7.7); NEUT % 80 % (31-73); PLATELET COUNT 260 x10^3/uL (140-400); RED BLOOD COUNT 3.04 x10^6/uL (4.30-5.70); RED CELL DISTRIBUTION WIDTH 16.4 % (11.5-14.5); WHITE BLOOD COUNT 7.8 x10^3/uL (4.0-11.0)
[2019-08-09 13:52] LABS: ALBUMIN/GLOBULIN RATIO 0.4 (1.0-1.7); ALK PHOS 73 U/L (46-116); AST (SGOT) 13 U/L (15-37); LIPASE 42 U/L (73-393); MAGNESIUM 2.2 mg/dL (1.8-2.4); TOTAL PROTEIN 7.7 g/dL (6.4-8.2)
[2019-08-09 14:06] LABS: ALT (SGPT) < 6 U/L (16-63)
[2019-08-09] MEDS ORDERED: IV DEXTROSE 5% 250 ML BAG. IV PRN ×2 (14:15→16:45)
[2019-08-09] MEDS ORDERED: ONDANSETRON PF 4 MG/2 ML VIAL. IV PRN (14:15)
[2019-08-09] MEDS ORDERED: DEXTROSE 50% 25 GM / 50ML DISP.SYRIN. IV PRN ×2 (14:15→16:45)
[2019-08-09] MEDS: fentaNYL PF VIAL 100 MCG/2 ML VIAL IV PRN ×3 (14:33→23:44)
--- NOTE | 2019-08-09 15:20 | PDOC1 ---
History and Physical Date of Admission Date of Admission DATE: 08/09/19 TIME: 15:15 Source Source: Patient History of Present Illness History of Present Illness Mr Goel is a 54 yo w/ PMHx CVA, Noncompliance, ESRD on dialysis, AFib, anxiety, asthma, CHF, diabetes, GERD, hypertension, hyperlipidemia, peripheral vascular disease, morbid obesity, left arm fistula, right fourth and fifth toe amputations, left below the knee amputation, scrotal surgery, CAD s/p multiple stents who presents with chest pain and SOB. The chest pain and SOB started 4 days ago. It is sharp, constant and reproducible on the right sternal region of his chest. Some dry cough with his symptoms. Pt reports he has not dialyzed since thanksgiving since he was busy after his recent diagnosis of stroke and takes care of his grandson. Has been frequently hospitalized for non-compliant dialysis. Denies GI symptom, no leg pain. EMS gave him 3 Aspirins in the field. CXR shows what is likely a large left pleural effusion. K 5.2 BUN 74, Cr 6.5, Hb 8.4, INR 1.6, BNP 39454. EKG sinus right sided axis deviation, no peaked T wave, no ST elevation. P waves inverted in V2. Called for admission for further treatment Past Medical History Cardiovascular: AFIB, CAD, CHF, HTN, VT, Hyperlipidemia, Other Pulmonary: COPD CENTRAL NERVOUS SYSTEM: Dementia, Periperal neuropathy, Seizure, TIA GI: Diverticulosis, Other Heme/Onc: Anemia NOS Hepatobiliary: No pertinent hx Psych: Anxiety, Depression Musculoskeletal: Osteoarthritis Rheumatologic: Rheumatoid arthritis Infectious disease: No pertinent hx Renal/: Chronic renal failure Endocrine: Diabetes, Hypothyroidism, Hyperparathyroidism Past Surgical History Past Surgical History L FA HD SHUNT,TOE AMPUT,R ARM,RIGHT ARM FX,SCROTAL SX,HEART STENT Past Surgical History: Cataract Removal, Total knee replacement, Other Family History Family History: Diabetes, Hypertension Family History: Parent Social History Smoke: No ALCOHOL: none Drugs: None Current Problem List Problem List Problems Medical Problems: (1) Chest pain Status: Acute (2) Noncompliance with renal dialysis Status: Acute (3) Pleural effusion Status: Acute Current Medications Current Medications Current Medications Fentanyl Citrate (Fentanyl 2ml Vial) 50 mcg 1X ONCE IV Last administered on 08/09/19at 13:30; Start 08/09/19 at 13:30; Stop 08/09/19 at 13:31; Status DC Ondansetron HCl (Zofran) 4 mg PRN Q8HRS PRN IV NAUSEA/VOMITING; Start 08/09/19 at 14:15; Stop 08/10/19 at 14:14 Fentanyl Citrate (Fentanyl 2ml Vial) 50 mcg PRN Q2HRS PRN IV PAIN Last administered on 08/09/19at 14:33; Start 08/09/19 at 14:15 Insulin Human Lispro (HumaLOG) 0-5 UNITS TIDWMEALS SQ ; Start 08/09/19 at 17:00 Dextrose (Dextrose 50%-Water Syringe) 12.5 gm PRN Q15MIN PRN IV SEE COMMENTS; Start 08/09/19 at 14:15 Dextrose (Iv Dextrose 5%) 250 ml PRN Q15MIN PRN IV SEE COMMENTS; Start 08/09/19 at 14:15 Active Scripts Active Carvedilol (Carvedilol) 6.25 Mg Tablet 6.25 Mg PO BIDWMEALS 30 Days Isosorbide Mononitrate Er (Isosorbide Mononitrate) 30 Mg Tab.er.24h 30 Mg PO DAILY 30 Days Flovent 110MCG Hfa (Fluticasone Propionate) 12 Gm Aer.w.adap 2 Puff IH BID Mirapex (Pramipexole Di-Hcl) 0.25 Mg Tablet 1 Tab PO DAILY Ventolin Hfa Inhaler (Albuterol Sulfate) 18 Gm Hfa.aer.ad 1 Puff INH Q6HRS PRN Levothyroxine Sodium 175 Mcg Tablet 175 Mcg PO DAILYAC Reported Triple Antibiotic Ointment Pkt (Neomycin/Bacitracin/Polymyxinb) 1 Each Oint.pack 1 Each TP DAILY Losartan Potassium 100 Mg Tablet 100 Mg PO DAILY Atorvastatin Calcium 80 Mg Tablet 80 Mg PO HS Cetirizine Hcl 10 Mg Tablet 1 Tab PO DAILY Magnesium (Magnesium Oxide) 400 Mg Capsule 250 Mg PO BID Tums (Calcium Carbonate) 200 Mg Tab.chew 200 Mg PO PRN Q4HRS PRN Aspirin 81 Mg Tab.chew 1 Tab PO DAILY Calcium Carbonate 500 Mg Tablet 500 Mg PO BID Keppra (Levetiracetam) 1,000 Mg Tablet 1 Tab PO BID Tylenol (Acetaminophen) 325 Mg Tablet 650 Mg PO PRN Q6HRS PRN Allergies Allergies: Coded Allergies: iodine (Verified Allergy, Severe, THROAT SWELLING, 01/16/19) lisinopril (Verified Allergy, Severe, 01/16/19) Fish Containing Products (Verified Allergy, Intermediate, 01/16/19) Penicillins (Verified Allergy, Intermediate, SEE COMMENT, 01/16/19) Tolerates meropenem and Cephalosporins piperacillin (Verified Allergy, Intermediate, Hives, 01/16/19) Tolerates meropenem tazobactam (Verified Allergy, Intermediate, 01/16/19) I S O L A T I O N *CONTACT* (Verified Allergy, Unknown, 02/26/19) mrsa ROS General: YES: Fatigue, Malaise; No: Chills, Night Sweats, Appetite, Other PSYCHOLOGICAL ROS: No: Anxiety, Behavioral Disorder, Concentration difficultie, Decreased libido, Depression, Disorientation, Hallucinations, Hostility, Irritablity, Memory difficulties, Mood Swings, Obsessive thoughts, Physical abuse, Sexual abuse, Sleep disturbances, Suicidal ideation, Other Eyes: No Blurry vision, No Decreased vision, No Double vision, No Dry eyes, No Excessive tearing, No Eye Pain, No Itchy Eyes, No Loss of vision, No Photophobia, No Scotomata, No Uses contacts, No Uses glasses, No Other HEENT: No: Heacaches, Visual Changes, Hearing change, Nasal congestion, Nasal discharge, Oral lesions, Sinus pain, Sore Throat, Epistaxis, Sneezing, Snoring, Tinnitus, Vertigo, Vocal changes, Other ALLERGY AND IMMUNOLOGY: No: Hives, Insect Bite Sensitivity, Itchy/Watery Eyes, Nasal Congestion, Post Nasal Drip, Seasonal Allergies, Other Hematological and Lymphatic: No: Bleeding Problems, Blood Clots, Blood Transfusions, Brusing, Night Sweats, Pallor, Swollen Lymph Nodes, Other ENDOCRINE: No: Breast Changes, Galactorrhea, Hair Pattern Changes, Hot Flashes, Malaise/lethargy, Mood Swings, Palpitations, Polydipsia/polyuria, Skin Changes, Temperature Intolerance, Unexpected Weight Changes, Other Breast: No New/Changing Breast Lumps, No Nipple changes, No Nipple discharge, No Other Respiratory: YES: Orthopnea, Pleuritic Pain, Shortness of breath, SOB with excertion, Tachypnea; No: Cough, Hemoptysis, Sputum Changes, Stridor, Wheezing, Other Cardiovascular: yes Chest Pain; No Palpitations, No Orthopnea, No Paroxysmal Noc. Dyspnea, No Edema, No Lt Headedness, No Other Gastrointestinal: Yes Nausea; No Vomiting, No Abdominal Pain, No Diarrhea, No Constipation, No Melena, No Hematochezia, No Other Genitourinary: No Dysuria, No Frequency, No Incontinence, No Hematuria, No Retention, No Discharge, No Urgency, No Pain, No Flank Pain, No Other, No , No , No , No , No , No , No Musculoskeletal: Yes Gait Disturbance; No Joint Pain, No Joint Stiffness, No Joint Swelling, No Muscle Pain, No Muscular Weakness, No Pain In:, No Swelling In:, No Other Neurological: No Behavorial Changes, No Bowel/Bladder ControlChng, No Confusion, No Dizziness, No Gait Disturbance, No Headaches, No Impaired Coord/balance, No Memory Loss, No Numbness/Tingling, No Seizures, No Speech Problems, No Tremors, No Visual Changes, No Weakness, No Other Skin: No Dry Skin, No Eczema, No Hair Changes, No Lumps, No Mole Changes, No Mottling, No Nail Changes, No Pruritus, No Rash, No Skin Lesion Changes, No Other, No Acne Physical Exam General: Alert, Cooperative, mild distress HEENT: Atraumatic, PERRLA, EOMI, Mucous membr. moist/pink Lungs: Other (Crackles, decreased left sided breath sounds) Heart: S1S2, RRR, no thrills, no rubs Abdomen: Normal bowel sounds, Soft, No tenderness, No hepatosplenomegaly, No masses Rectal Exam: not examined Extremities: No clubbing, No cyanosis, No edema, Normal pulses, No tenderness/swelling Skin: No rashes, No breakdown, No significant lesion Neuro: Normal tone, Cranial nerves 3-12 NL, Reflexes 2+ Psych/Mental Status: Other (Drowsy) Vitals Vitals Vital Signs Date Time Temp Pulse Resp B/P (MAP) Pulse Ox O2 Delivery O2 Flow Rate FiO2 08/09/19 14:33 18 08/09/19 14:25 90 152/72 (98) 99 Nasal Cannula 2.0 08/09/19 11:46 99.0 99.0 Labs Labs Laboratory Tests Test 08/09/19 13:15 08/09/19 14:10 White Blood Count 7.8 x10^3/uL (4.0-11.0) Red Blood Count 3.04 x10^6/uL (4.30-5.70) Hemoglobin 8.4 g/dL (13.0-17.5) Hematocrit 26.6 % (39.0-53.0) Mean Corpuscular Volume 87 fL (79-100) Mean Corpuscular Hemoglobin 28 pg (25-35) Mean Corpuscular Hemoglobin Concent 32 g/dL (31-37) Red Cell Distribution Width 16.4 % (11.5-14.5) Platelet Count 260 x10^3/uL (140-400) Neutrophils (%) (Auto) 80 % (31-73) Lymphocytes (%) (Auto) 6 % (24-48) Monocytes (%) (Auto) 13 % (0-9) Eosinophils (%) (Auto) 1 % (0-3) Basophils (%) (Auto) 1 % (0-3) Neutrophils # (Auto) 6.2 x10^3/uL (1.8-7.7) Lymphocytes # (Auto) 0.4 x10^3/uL (1.0-4.8) Monocytes # (Auto) 1.0 x10^3/uL (0.0-1.1) Eosinophils # (Auto) 0.1 x10^3/uL (0.0-0.7) Basophils # (Auto) 0.1 x10^3/uL (0.0-0.2) Sodium Level 137 mmol/L (136-145) Potassium Level 5.2 mmol/L (3.5-5.1) Chloride Level 106 mmol/L (98-107) Carbon Dioxide Level 16 mmol/L (21-32) Anion Gap 15 (6-14) Blood Urea Nitrogen 74 mg/dL (8-26) Creatinine 6.5 mg/dL (0.7-1.3) Estimated GFR (Cockcroft-Gault) 10.9 BUN/Creatinine Ratio 11 (6-20) Glucose Level 141 mg/dL (70-99) Calcium Level 8.6 mg/dL (8.5-10.1) Magnesium Level 2.2 mg/dL (1.8-2.4) Total Bilirubin 1.0 mg/dL (0.2-1.0) Aspartate Amino Transf (AST/SGOT) 13 U/L (15-37) Alanine Aminotransferase (ALT/SGPT) < 6 U/L (16-63) Alkaline Phosphatase 73 U/L (46-116) Creatine Kinase 186 U/L (39-308) Creatine Kinase MB (Mass) 3.7 ng/mL (0.0-3.6) Creatine Kinase MB Relative Index 2.0 % (0-4) Troponin I Quantitative < 0.017 ng/mL (0.000-0.055) UP-Nji-S-Type Natriuretic Peptide 16645 pg/mL (0-124) Total Protein 7.7 g/dL (6.4-8.2) Albumin 2.0 g/dL (3.4-5.0) Albumin/Globulin Ratio 0.4 (1.0-1.7) Lipase 42 U/L (73-393) Prothrombin Time 19.0 SEC (11.7-14.0) Prothromb Time International Ratio 1.6 (0.8-1.1) Activated Partial Thromboplast Time 37 SEC (24-38) Laboratory Tests Test 08/09/19 13:15 08/09/19 14:10 White Blood Count 7.8 x10^3/uL (4.0-11.0) Red Blood Count 3.04 x10^6/uL (4.30-5.70) Hemoglobin 8.4 g/dL (13.0-17.5) Hematocrit 26.6 % (39.0-53.0) Mean Corpuscular Volume 87 fL (79-100) Mean Corpuscular Hemoglobin 28 pg (25-35) Mean Corpuscular Hemoglobin Concent 32 g/dL (31-37) Red Cell Distribution Width 16.4 % (11.5-14.5) Platelet Count 260 x10^3/uL (140-400) Neutrophils (%) (Auto) 80 % (31-73) Lymphocytes (%) (Auto) 6 % (24-48) Monocytes (%) (Auto) 13 % (0-9) Eosinophils (%) (Auto) 1 % (0-3) Basophils (%) (Auto) 1 % (0-3) Neutrophils # (Auto) 6.2 x10^3/uL (1.8-7.7) Lymphocytes # (Auto) 0.4 x10^3/uL (1.0-4.8) Monocytes # (Auto) 1.0 x10^3/uL (0.0-1.1) Eosinophils # (Auto) 0.1 x10^3/uL (0.0-0.7) Basophils # (Auto) 0.1 x10^3/uL (0.0-0.2) Sodium Level 137 mmol/L (136-145) Potassium Level 5.2 mmol/L (3.5-5.1) Chloride Level 106 mmol/L (98-107) Carbon Dioxide Level 16 mmol/L (21-32) Anion Gap 15 (6-14) Blood Urea Nitrogen 74 mg/dL (8-26) Creatinine 6.5 mg/dL (0.7-1.3) Estimated GFR (Cockcroft-Gault) 10.9 BUN/Creatinine Ratio 11 (6-20) Glucose Level 141 mg/dL (70-99) Calcium Level 8.6 mg/dL (8.5-10.1) Magnesium Level 2.2 mg/dL (1.8-2.4) Total Bilirubin 1.0 mg/dL (0.2-1.0) Aspartate Amino Transf (AST/SGOT) 13 U/L (15-37) Alanine Aminotransferase (ALT/SGPT) < 6 U/L (16-63) Alkaline Phosphatase 73 U/L (46-116) Creatine Kinase 186 U/L (39-308) Creatine Kinase MB (Mass) 3.7 ng/mL (0.0-3.6) Creatine Kinase MB Relative Index 2.0 % (0-4) Troponin I Quantitative < 0.017 ng/mL (0.000-0.055) XI-Lko-M-Type Natriuretic Peptide 46813 pg/mL (0-124) Total Protein 7.7 g/dL (6.4-8.2) Albumin 2.0 g/dL (3.4-5.0) Albumin/Globulin Ratio 0.4 (1.0-1.7) Lipase 42 U/L (73-393) Prothrombin Time 19.0 SEC (11.7-14.0) Prothromb Time International Ratio 1.6 (0.8-1.1) Activated Partial Thromboplast Time 37 SEC (24-38) Images Images CXR - The cardiomediastinal silhouette remains somewhat widened, stable. Increased opacity in left mid to lower lung is now identified. No evidence of pneumothorax. No right pleural effusion. Right lung appears grossly clear. Endovascular stents are again seen. IMPRESSION: Left lower lobe infiltrate/consolidation and/or left pleural effusion has developed. VTE Prophylaxis Ordered VTE Prophylaxis Devices: No VTE Pharmacological Prophylaxi: Yes Assessment/Plan Assessment/Plan A/P: Atypical Chest pain - initial trop nml. EKG SR without acute changes. noncardiac suspect costochondritis, will need further w/u of CXR findings Left pleural effusion - will consult pulmonology. After dialysis a CT to better delineate would be helpful, may need thoracentesis Uremia - a bit confused. Dialysis now. Nephrology consulted Hyperkalemia - 5.2, will monitor, goign to dialysis today End-stage renal disease, on hemodialysis. T TH SAT Diabetes 2 with peripheral neuropathy - basal bolus plus insulin in house Hypertension - cont med CAD - [facility] 07/[address] at [facility] this summer. Clin ically stable. Obesity BMI 37 Anemia of esrd. Hypothyroidism on replacement AFIB - maintaining SR H/O noncompliance Anxiety CHF - in acute exacerbation 2/2 missed dialysis Prior CVA PVD s/p L BKA Elevated INR - he does not know if he is taking blood thinner for his afib, will better reconcile his medications, if not anticoagulated, needs f/u FEN - Renal PPX - Heparin TID FULL CODE Dispo - inpatient for at least 2 midnights. CINDA POE MD Aug 09, 2019 15:20
[2019-08-09] MEDS ORDERED: NON FORMULARY ITEM (Albuterol Sulfate (Ventolin Hfa Inhaler) 1 PUFF) INH PRN (16:45)
[2019-08-09] MEDS ORDERED: CALCIUM CARBONATE 500 MG TAB.CHEW PO PRN (16:45)
[2019-08-09] MEDS ORDERED: ACETAMINOPHEN 325 MG TABLET. PO PRN (16:45)
[2019-08-09] MEDS: INSULIN LISPRO 300 UNITS/3 ML VIAL. SQ SCH (17:00)
[2019-08-09] MEDS ORDERED: ALBUTEROL SULFATE 2.5 MG/3 ML NEBU. NEB PRN (17:00)
[2019-08-09] MEDS ORDERED: DIALYSIS PATIENT. MC PRN ×2 (17:45)
[2019-08-09 20:15] VITALS: BP 140/66
[2019-08-09] MEDS ORDERED: INSULIN LISPRO 300 UNITS/3 ML VIAL. SQ SCH (21:00)
[2019-08-09] MEDS: ATORVASTATIN CALCIUM 40 MG TABLET. PO SCH (21:30)
[2019-08-09] MEDS: CARVEDILOL 6.25 MG TABLET. PO SCH (21:30)
[2019-08-09] MEDS: INSULIN GLARGINE SYRINGE. SQ SCH (21:37)
[2019-08-09] MEDS: HEPARIN for SUB-Q USE 5,000 UNIT/ML VIAL. SQ SCH (21:37)
[2019-08-09 23:45] VITALS: BP 151/73
[2019-08-10 03:30] VITALS: BP 142/61
[2019-08-10] MEDS: HEPARIN for SUB-Q USE 5,000 UNIT/ML VIAL. SQ SCH ×3 (05:27→21:35)
[2019-08-10 07:59] VITALS: BP 148/72
[2019-08-10] MEDS: INSULIN LISPRO 300 UNITS/3 ML VIAL. SQ SCH ×4 (08:00→16:37)
[2019-08-10 08:15] LABS: BASO # 0.1 x10^3/uL (0.0-0.2); BASO % 1 % (0-3); EOS # 0.1 x10^3/uL (0.0-0.7); EOS % 1 % (0-3); HEMATOCRIT 24.8 % (39.0-53.0); LYMPH # 0.5 x10^3/uL (1.0-4.8); LYMPH % 7 % (24-48); MEAN CORPUSCULAR HEMOGLOBIN 28 pg (25-35); MEAN CORPUSCULAR HGB CONC 32 g/dL (31-37); MEAN CORPUSCULAR VOLUME 87 fL (79-100); MONO # 1.1 x10^3/uL (0.0-1.1); MONO % 15 % (0-9); NEUT # 5.2 x10^3/uL (1.8-7.7); NEUT % 76 % (31-73); PLATELET COUNT 217 x10^3/uL (140-400); RED BLOOD COUNT 2.87 x10^6/uL (4.30-5.70); RED CELL DISTRIBUTION WIDTH 16.3 % (11.5-14.5); WHITE BLOOD COUNT 6.9 x10^3/uL (4.0-11.0)
[2019-08-10] MEDS: ISOSORBIDE MONONITRATE ER 30 MG TAB.ER.24H PO SCH (08:26)
[2019-08-10] MEDS: ASPIRIN CHEWABLE 81 MG TABLET. PO SCH (08:26)
[2019-08-10 08:27] LABS: ALBUMIN 1.8 g/dL (3.4-5.0); CALCIUM 7.9 mg/dL (8.5-10.1); CREATININE 4.3 mg/dL (0.7-1.3); GFR 17.5; PHOSPHORUS 3.6 mg/dL (2.6-4.7); POTASSIUM 4.4 mmol/L (3.5-5.1)
[2019-08-10] MEDS: CETIRIZINE HCL 10 MG TABLET. PO SCH (08:27)
[2019-08-10] MEDS: PRAMIPEXOLE 0.25 MG TABLET. PO SCH (08:27)
[2019-08-10] MEDS: LEVOTHYROXINE 175 MCG TABLET PO SCH (08:27)
[2019-08-10] MEDS: CARVEDILOL 6.25 MG TABLET. PO SCH ×2 (08:27→16:39)
[2019-08-10] MEDS: FLUTICASONE 50MCG/NASAL SPRAY 16GM BOTTLE. NS SCH (08:27)
[2019-08-10] MEDS ORDERED: IV DEXTROSE 5% 250 ML BAG. IV PRN (08:30)
[2019-08-10] MEDS ORDERED: CALCIUM CARBONATE 500 MG TAB.CHEW PO PRN (08:30)
[2019-08-10] MEDS ORDERED: DEXTROSE 50% 25 GM / 50ML DISP.SYRIN. IV PRN (08:30)
[2019-08-10] MEDS: NEOMY/BACITR/POLYMYXIN OINT PACKET. TP SCH (09:00)
[2019-08-10] MEDS: MAGNESIUM OXIDE 400 MG TABLET PO SCH ×2 (09:10→21:31)
[2019-08-10] MEDS: HYDROcodone/APAP 5/325MG 1 TAB TABLET PO PRN (09:11)
[2019-08-10] MEDS: levETIRAcetam 500 MG TABLET PO SCH ×2 (09:11→21:31)
[2019-08-10] MEDS: CALCIUM CARBONATE 500 MG TABLET PO SCH ×2 (09:11→16:38)
[2019-08-10] MEDS: LOSARTAN POTASSIUM 50 MG TABLET. PO SCH (09:12)
[2019-08-10 10:28] VITALS: BP 105/52
[2019-08-10] MEDS: DOXYCYCLINE HYCLATE 100 MG in IV DEXTROSE 5% 100ML 100 ML IV SCH ×2 (10:48→21:30)
--- NOTE | 2019-08-10 11:06 | CONS ---
DATE OF CONSULTATION: PULMONARY CONSULTATION ATTENDING PHYSICIAN: Bairon Elaine MD REASON FOR CONSULTATION: Dyspnea, abnormal chest x-ray. HISTORY OF PRESENT ILLNESS: The patient is a 54-year-old male who has history of CVA; history of end-stage renal disease, on hemodialysis; atrial fibrillation. He has not had dialysis for past 1 month. He says his mother and niece were sick. Mother had a stroke. He has peripheral vascular disease as well. He came into the hospital with complaint of some shortness of breath. He had some cough, which was nonproductive. The patient also had some chest pain as well. The patient states he got dialyzed yesterday. No headaches, no nausea or vomiting, no diarrhea. No dysuria. The patient underwent chest x-ray, which was reviewed by me and it shows a left lower lobe, moderate pleural effusion along with associated atelectasis. His previous x-ray had ____ left base. I have been asked to see him for further evaluation. PAST MEDICAL HISTORY: History of atrial fibrillation, history of CAD, CHF, hypertension, MS, hyperlipidemia, dementia, peripheral neuropathy, seizure, TIA, osteoarthritis, rheumatoid arthritis, hypothyroidism, diabetes. PAST SURGICAL HISTORY: Including shunt, right toes amputation, left BKA and total knee replacement. FAMILY HISTORY: Diabetes and hypertension. SOCIAL HISTORY: Nonsmoker. ALLERGIES: All reviewed as listed in the MRAD. MEDICATIONS: All reviewed as listed in the MRAD. REVIEW OF SYSTEMS: Twelve-point system obtained. Pertinent positives discussed in my present illness, otherwise noncontributory. All systems that were negative were reviewed as well. FAMILY HISTORY: Noncontributory to lungs. PHYSICAL EXAMINATION: VITAL SIGNS: Reviewed. T-max of 99, pulse ox 98% on 2 liters, currently on room air. NECK: Supple. LUNGS: With diminished breath sounds at the left base. CARDIOVASCULAR: Regular rate and rhythm. ABDOMEN: Soft, obese. EXTREMITIES: Left BKA and right toe amputation. LABORATORY DATA: Reviewed. White cell count 6.9, hemoglobin 8.0 and platelets are 217. BUN 32 and creatinine of 4.3. IMPRESSION: 1. Acute hypoxic respiratory failure, likely related to left-sided moderate pleural effusion with associated infiltrate/atelectasis. He is a nonsmoker. 2. Cannot exclude the possibility of left lung pneumonia. 3. End-stage renal disease, on hemodialysis, but he did not have dialysis for the past 1 month as his mother had a stroke and niece was sick. 4. Increased procalcitonin. 5. End-stage renal disease, on hemodialysis. 6. No significant tobacco history. RECOMMENDATIONS: 1. We will do a noncontrast CT chest to assess the size of the effusion and need for thoracentesis. 2. P.r.n. oxygen. 3. Add empiric antibiotic since procalcitonin is high. 4. Dialysis per Renal. 5. P.r.n. bronchodilators. 6. Further recommendations to follow after review of CT chest. 7. Discussed with RN. ZULMA CAIN MD DR: KYA/roni JOB#: [id number] / [id number]
--- NOTE | 2019-08-10 11:10 | PDOC ---
PROGRESS NOTES Chief Complaint Chief Complaint Atypical Chest pain - initial trop nml. EKG SR without acute changes. noncardiac suspect costochondritis, Left pleural effusion - can get better off load HD MISSED HD x 1 month NOn compliance LEFt BKA RT foot wound, hx amputated toes LEFT ARM NUMBNESS - new 08/10 End-stage renal disease, on hemodialysis. T TH SAT Diabetes 2 with peripheral neuropathy - Hypertension - cont meds CAD - [facility] 07/[address] [facility] this summer. Clinically stable. Obesity BMI 37 Anemia of esrd. Hypothyroidism on replacement AFIB - maintaining SR H/O noncompliance Anxiety CHF - in acute exacerbation 2/ missed dialysis Prior CVA PVD Elevated INR, no bleeding History of Present Illness History of Present Illness On doxy q12 IV for the foot wound RT WOund care also consulted NOW he complains of left arm whole, numb Strength good AV left arm fistula good bruit with good radial pulse, hands are warm to touch HIS demeanor changed when we talk about multiple HH agencies firing him HE claims missed HD x 1 mo bec sick' GOt a dose HD yesterday stat - took out 4 L No confusion for me today PLAN: HD per renal COnt gabapentin or start if not yet Lyrica, cymbalta are other choices, NEURO exam non focal no need for brain imaging re the numb left arm, monitor PT oT may eat\ WOund care Doxy for foot wound LAbs Dw RN at [facility] NEeds compliance Vitals Vitals Vital Signs Date Time Temp Pulse Resp B/P (MAP) Pulse Ox O2 Delivery O2 Flow Rate FiO2 08/10/19 10:44 16 98 Room Air 2.0 08/10/19 09:12 92 148/72 08/10/19 07:59 99.3 99.3 Physical Exam General: Alert, Cooperative, mild distress Lungs: Clear, Crackles Abdomen: Normal bowel sounds, Soft, No tenderness, No hepatosplenomegaly, No masses Extremities: No clubbing, No cyanosis, No edema, Normal pulses, No tenderness/swelling Skin: No rashes, No breakdown, No significant lesion Labs LABS Laboratory Tests Test 08/09/19 13:15 08/09/19 14:10 08/09/19 20:08 08/09/19 20:45 White Blood Count 7.8 x10^3/uL (4.0-11.0) Red Blood Count 3.04 x10^6/uL (4.30-5.70) Hemoglobin 8.4 g/dL (13.0-17.5) Hematocrit 26.6 % (39.0-53.0) Mean Corpuscular Volume 87 fL (79-100) Mean Corpuscular Hemoglobin 28 pg (25-35) Mean Corpuscular Hemoglobin Concent 32 g/dL (31-37) Red Cell Distribution Width 16.4 % (11.5-14.5) Platelet Count 260 x10^3/uL (140-400) Neutrophils (%) (Auto) 80 % (31-73) Lymphocytes (%) (Auto) 6 % (24-48) Monocytes (%) (Auto) 13 % (0-9) Eosinophils (%) (Auto) 1 % (0-3) Basophils (%) (Auto) 1 % (0-3) Neutrophils # (Auto) 6.2 x10^3/uL (1.8-7.7) Lymphocytes # (Auto) 0.4 x10^3/uL (1.0-4.8) Monocytes # (Auto) 1.0 x10^3/uL (0.0-1.1) Eosinophils # (Auto) 0.1 x10^3/uL (0.0-0.7) Basophils # (Auto) 0.1 x10^3/uL (0.0-0.2) Sodium Level 137 mmol/L (136-145) Potassium Level 5.2 mmol/L (3.5-5.1) Chloride Level 106 mmol/L (98-107) Carbon Dioxide Level 16 mmol/L (21-32) Anion Gap 15 (6-14) Blood Urea Nitrogen 74 mg/dL (8-26) Creatinine 6.5 mg/dL (0.7-1.3) Estimated GFR (Cockcroft-Gault) 10.9 BUN/Creatinine Ratio 11 (6-20) Glucose Level 141 mg/dL (70-99) Calcium Level 8.6 mg/dL (8.5-10.1) Magnesium Level 2.2 mg/dL (1.8-2.4) Total Bilirubin 1.0 mg/dL (0.2-1.0) Aspartate Amino Transf (AST/SGOT) 13 U/L (15-37) Alanine Aminotransferase (ALT/SGPT) < 6 U/L (16-63) Alkaline Phosphatase 73 U/L (46-116) Creatine Kinase 186 U/L (39-308) Creatine Kinase MB (Mass) 3.7 ng/mL (0.0-3.6) Creatine Kinase MB Relative Index 2.0 % (0-4) Troponin I Quantitative < 0.017 ng/mL (0.000-0.055) < 0.017 ng/mL (0.000-0.055) RK-Gio-P-Type Natriuretic Peptide 52397 pg/mL (0-124) Total Protein 7.7 g/dL (6.4-8.2) Albumin 2.0 g/dL (3.4-5.0) Albumin/Globulin Ratio 0.4 (1.0-1.7) Lipase 42 U/L (73-393) Prothrombin Time 19.0 SEC (11.7-14.0) Prothromb Time International Ratio 1.6 (0.8-1.1) Activated Partial Thromboplast Time 37 SEC (24-38) Procalcitonin 3.30 ng/mL (0.00-0.10) Glucose (Fingerstick) 97 mg/dL (70-99) Test 08/10/19 07:50 08/10/19 08:05 White Blood Count 6.9 x10^3/uL (4.0-11.0) Red Blood Count 2.87 x10^6/uL (4.30-5.70) Hemoglobin 8.0 g/dL (13.0-17.5) Hematocrit 24.8 % (39.0-53.0) Mean Corpuscular Volume 87 fL (79-100) Mean Corpuscular Hemoglobin 28 pg (25-35) Mean Corpuscular Hemoglobin Concent 32 g/dL (31-37) Red Cell Distribution Width 16.3 % (11.5-14.5) Platelet Count 217 x10^3/uL (140-400) Neutrophils (%) (Auto) 76 % (31-73) Lymphocytes (%) (Auto) 7 % (24-48) Monocytes (%) (Auto) 15 % (0-9) Eosinophils (%) (Auto) 1 % (0-3) Basophils (%) (Auto) 1 % (0-3) Neutrophils # (Auto) 5.2 x10^3/uL (1.8-7.7) Lymphocytes # (Auto) 0.5 x10^3/uL (1.0-4.8) Monocytes # (Auto) 1.1 x10^3/uL (0.0-1.1) Eosinophils # (Auto) 0.1 x10^3/uL (0.0-0.7) Basophils # (Auto) 0.1 x10^3/uL (0.0-0.2) Sodium Level 140 mmol/L (136-145) Potassium Level 4.4 mmol/L (3.5-5.1) Chloride Level 103 mmol/L (98-107) Carbon Dioxide Level 27 mmol/L (21-32) Anion Gap 10 (6-14) Blood Urea Nitrogen 32 mg/dL (8-26) Creatinine 4.3 mg/dL (0.7-1.3) Estimated GFR (Cockcroft-Gault) 17.5 Glucose Level 106 mg/dL (70-99) Calcium Level 7.9 mg/dL (8.5-10.1) Phosphorus Level 3.6 mg/dL (2.6-4.7) Troponin I Quantitative < 0.017 ng/mL (0.000-0.055) Albumin 1.8 g/dL (3.4-5.0) Glucose (Fingerstick) 103 mg/dL (70-99) Review of Systems Review of Systems left arm numb, weak, all else is neg Assessment and Plan Assessmemt and Plan Problems Medical Problems: (1) Chest pain Status: Acute (2) Noncompliance with renal dialysis Status: Acute (3) Pleural effusion Status: Acute Comment Review of Relevant I have reviewed the following items lila (where applicable) has been applied. Labs Laboratory Tests Test 08/09/19 13:15 08/09/19 14:10 08/09/19 20:08 08/09/19 20:45 White Blood Count 7.8 x10^3/uL (4.0-11.0) Red Blood Count 3.04 x10^6/uL (4.30-5.70) Hemoglobin 8.4 g/dL (13.0-17.5) Hematocrit 26.6 % (39.0-53.0) Mean Corpuscular Volume 87 fL (79-100) Mean Corpuscular Hemoglobin 28 pg (25-35) Mean Corpuscular Hemoglobin Concent 32 g/dL (31-37) Red Cell Distribution Width 16.4 % (11.5-14.5) Platelet Count 260 x10^3/uL (140-400) Neutrophils (%) (Auto) 80 % (31-73) Lymphocytes (%) (Auto) 6 % (24-48) Monocytes (%) (Auto) 13 % (0-9) Eosinophils (%) (Auto) 1 % (0-3) Basophils (%) (Auto) 1 % (0-3) Neutrophils # (Auto) 6.2 x10^3/uL (1.8-7.7) Lymphocytes # (Auto) 0.4 x10^3/uL (1.0-4.8) Monocytes # (Auto) 1.0 x10^3/uL (0.0-1.1) Eosinophils # (Auto) 0.1 x10^3/uL (0.0-0.7) Basophils # (Auto) 0.1 x10^3/uL (0.0-0.2) Sodium Level 137 mmol/L (136-145) Potassium Level 5.2 mmol/L (3.5-5.1) Chloride Level 106 mmol/L (98-107) Carbon Dioxide Level 16 mmol/L (21-32) Anion Gap 15 (6-14) Blood Urea Nitrogen 74 mg/dL (8-26) Creatinine 6.5 mg/dL (0.7-1.3) Estimated GFR (Cockcroft-Gault) 10.9 BUN/Creatinine Ratio 11 (6-20) Glucose Level 141 mg/dL (70-99) Calcium Level 8.6 mg/dL (8.5-10.1) Magnesium Level 2.2 mg/dL (1.8-2.4) Total Bilirubin 1.0 mg/dL (0.2-1.0) Aspartate Amino Transf (AST/SGOT) 13 U/L (15-37) Alanine Aminotransferase (ALT/SGPT) < 6 U/L (16-63) Alkaline Phosphatase 73 U/L (46-116) Creatine Kinase 186 U/L (39-308) Creatine Kinase MB (Mass) 3.7 ng/mL (0.0-3.6) Creatine Kinase MB Relative Index 2.0 % (0-4) Troponin I Quantitative < 0.017 ng/mL (0.000-0.055) < 0.017 ng/mL (0.000-0.055) FD-Cxj-H-Type Natriuretic Peptide 56829 pg/mL (0-124) Total Protein 7.7 g/dL (6.4-8.2) Albumin 2.0 g/dL (3.4-5.0) Albumin/Globulin Ratio 0.4 (1.0-1.7) Lipase 42 U/L (73-393) Prothrombin Time 19.0 SEC (11.7-14.0) Prothromb Time International Ratio 1.6 (0.8-1.1) Activated Partial Thromboplast Time 37 SEC (24-38) Procalcitonin 3.30 ng/mL (0.00-0.10) Glucose (Fingerstick) 97 mg/dL (70-99) Test 08/10/19 07:50 08/10/19 08:05 White Blood Count 6.9 x10^3/uL (4.0-11.0) Red Blood Count 2.87 x10^6/uL (4.30-5.70) Hemoglobin 8.0 g/dL (13.0-17.5) Hematocrit 24.8 % (39.0-53.0) Mean Corpuscular Volume 87 fL (79-100) Mean Corpuscular Hemoglobin 28 pg (25-35) Mean Corpuscular Hemoglobin Concent 32 g/dL (31-37) Red Cell Distribution Width 16.3 % (11.5-14.5) Platelet Count 217 x10^3/uL (140-400) Neutrophils (%) (Auto) 76 % (31-73) Lymphocytes (%) (Auto) 7 % (24-48) Monocytes (%) (Auto) 15 % (0-9) Eosinophils (%) (Auto) 1 % (0-3) Basophils (%) (Auto) 1 % (0-3) Neutrophils # (Auto) 5.2 x10^3/uL (1.8-7.7) Lymphocytes # (Auto) 0.5 x10^3/uL (1.0-4.8) Monocytes # (Auto) 1.1 x10^3/uL (0.0-1.1) Eosinophils # (Auto) 0.1 x10^3/uL (0.0-0.7) Basophils # (Auto) 0.1 x10^3/uL (0.0-0.2) Sodium Level 140 mmol/L (136-145) Potassium Level 4.4 mmol/L (3.5-5.1) Chloride Level 103 mmol/L (98-107) Carbon Dioxide Level 27 mmol/L (21-32) Anion Gap 10 (6-14) Blood Urea Nitrogen 32 mg/dL (8-26) Creatinine 4.3 mg/dL (0.7-1.3) Estimated GFR (Cockcroft-Gault) 17.5 Glucose Level 106 mg/dL (70-99) Calcium Level 7.9 mg/dL (8.5-10.1) Phosphorus Level 3.6 mg/dL (2.6-4.7) Troponin I Quantitative < 0.017 ng/mL (0.000-0.055) Albumin 1.8 g/dL (3.4-5.0) Glucose (Fingerstick) 103 mg/dL (70-99) Laboratory Tests Test 08/09/19 13:15 08/09/19 14:10 08/09/19 20:08 08/09/19 20:45 White Blood Count 7.8 x10^3/uL (4.0-11.0) Red Blood Count 3.04 x10^6/uL (4.30-5.70) Hemoglobin 8.4 g/dL (13.0-17.5) Hematocrit 26.6 % (39.0-53.0) Mean Corpuscular Volume 87 fL (79-100) Mean Corpuscular Hemoglobin 28 pg (25-35) Mean Corpuscular Hemoglobin Concent 32 g/dL (31-37) Red Cell Distribution Width 16.4 % (11.5-14.5) Platelet Count 260 x10^3/uL (140-400) Neutrophils (%) (Auto) 80 % (31-73) Lymphocytes (%) (Auto) 6 % (24-48) Monocytes (%) (Auto) 13 % (0-9) Eosinophils (%) (Auto) 1 % (0-3) Basophils (%) (Auto) 1 % (0-3) Neutrophils # (Auto) 6.2 x10^3/uL (1.8-7.7) Lymphocytes # (Auto) 0.4 x10^3/uL (1.0-4.8) Monocytes # (Auto) 1.0 x10^3/uL (0.0-1.1) Eosinophils # (Auto) 0.1 x10^3/uL (0.0-0.7) Basophils # (Auto) 0.1 x10^3/uL (0.0-0.2) Sodium Level 137 mmol/L (136-145) Potassium Level 5.2 mmol/L (3.5-5.1) Chloride Level 106 mmol/L (98-107) Carbon Dioxide Level 16 mmol/L (21-32) Anion Gap 15 (6-14) Blood Urea Nitrogen 74 mg/dL (8-26) Creatinine 6.5 mg/dL (0.7-1.3) Estimated GFR (Cockcroft-Gault) 10.9 BUN/Creatinine Ratio 11 (6-20) Glucose Level 141 mg/dL (70-99) Calcium Level 8.6 mg/dL (8.5-10.1) Magnesium Level 2.2 mg/dL (1.8-2.4) Total Bilirubin 1.0 mg/dL (0.2-1.0) Aspartate Amino Transf (AST/SGOT) 13 U/L (15-37) Alanine Aminotransferase (ALT/SGPT) < 6 U/L (16-63) Alkaline Phosphatase 73 U/L (46-116) Creatine Kinase 186 U/L (39-308) Creatine Kinase MB (Mass) 3.7 ng/mL (0.0-3.6) Creatine Kinase MB Relative Index 2.0 % (0-4) Troponin I Quantitative < 0.017 ng/mL (0.000-0.055) < 0.017 ng/mL (0.000-0.055) TF-Rzi-K-Type Natriuretic Peptide 43366 pg/mL (0-124) Total Protein 7.7 g/dL (6.4-8.2) Albumin 2.0 g/dL (3.4-5.0) Albumin/Globulin Ratio 0.4 (1.0-1.7) Lipase 42 U/L (73-393) Prothrombin Time 19.0 SEC (11.7-14.0) Prothromb Time International Ratio 1.6 (0.8-1.1) Activated Partial Thromboplast Time 37 SEC (24-38) Procalcitonin 3.30 ng/mL (0.00-0.10) Glucose (Fingerstick) 97 mg/dL (70-99) Test 08/10/19 07:50 08/10/19 08:05 White Blood Count 6.9 x10^3/uL (4.0-11.0) Red Blood Count 2.87 x10^6/uL (4.30-5.70) Hemoglobin 8.0 g/dL (13.0-17.5) Hematocrit 24.8 % (39.0-53.0) Mean Corpuscular Volume 87 fL (79-100) Mean Corpuscular Hemoglobin 28 pg (25-35) Mean Corpuscular Hemoglobin Concent 32 g/dL (31-37) Red Cell Distribution Width 16.3 % (11.5-14.5) Platelet Count 217 x10^3/uL (140-400) Neutrophils (%) (Auto) 76 % (31-73) Lymphocytes (%) (Auto) 7 % (24-48) Monocytes (%) (Auto) 15 % (0-9) Eosinophils (%) (Auto) 1 % (0-3) Basophils (%) (Auto) 1 % (0-3) Neutrophils # (Auto) 5.2 x10^3/uL (1.8-7.7) Lymphocytes # (Auto) 0.5 x10^3/uL (1.0-4.8) Monocytes # (Auto) 1.1 x10^3/uL (0.0-1.1) Eosinophils # (Auto) 0.1 x10^3/uL (0.0-0.7) Basophils # (Auto) 0.1 x10^3/uL (0.0-0.2) Sodium Level 140 mmol/L (136-145) Potassium Level 4.4 mmol/L (3.5-5.1) Chloride Level 103 mmol/L (98-107) Carbon Dioxide Level 27 mmol/L (21-32) Anion Gap 10 (6-14) Blood Urea Nitrogen 32 mg/dL (8-26) Creatinine 4.3 mg/dL (0.7-1.3) Estimated GFR (Cockcroft-Gault) 17.5 Glucose Level 106 mg/dL (70-99) Calcium Level 7.9 mg/dL (8.5-10.1) Phosphorus Level 3.6 mg/dL (2.6-4.7) Troponin I Quantitative < 0.017 ng/mL (0.000-0.055) Albumin 1.8 g/dL (3.4-5.0) Glucose (Fingerstick) 103 mg/dL (70-99) Medications Current Medications Fentanyl Citrate (Fentanyl 2ml Vial) 50 mcg 1X ONCE IV Last administered on 08/09/19at 13:30; Start 08/09/19 at 13:30; Stop 08/09/19 at 13:31; Status DC Ondansetron HCl (Zofran) 4 mg PRN Q8HRS PRN IV NAUSEA/VOMITING; Start 08/09/19 at 14:15; Stop 08/10/19 at 14:14 Fentanyl Citrate (Fentanyl 2ml Vial) 50 mcg PRN Q2HRS PRN IV PAIN Last administered on 08/09/19at 23:44; Start 08/09/19 at 14:15 Insulin Human Lispro (HumaLOG) 0-5 UNITS TIDWMEALS SQ ; Start 08/09/19 at 17:00; Stop 08/10/19 at 08:29; Status DC Dextrose (Dextrose 50%-Water Syringe) 12.5 gm PRN Q15MIN PRN IV SEE COMMENTS; Start 08/09/19 at 14:15; Status Cancel Dextrose (Iv Dextrose 5%) 250 ml PRN Q15MIN PRN IV SEE COMMENTS; Start 08/09/19 at 14:15; Status Cancel Acetaminophen (Tylenol) 650 mg PRN Q6HRS PRN PO FEVER Last administered on 08/10/19at 05:23; Start 08/09/19 at 16:45 Aspirin (Children'S Aspirin) 81 mg DAILY PO Last administered on 08/10/19at 08:26; Start 08/10/19 at 09:00 Calcium Carbonate/ Glycine (Tums) 250 mg PRN Q4HRS PRN PO INDIGESTION; Start 08/09/19 at 16:45; Stop 08/10/19 at 08:34; Status DC Carvedilol (Coreg) 6.25 mg BIDWMEALS PO Last administered on 08/10/19 08:27; Start 08/09/19 at 17:00 Cetirizine HCl (ZyrTEC) 10 mg DAILY PO Last administered on 08/10/19 08:27; Start 08/10/19 at 09:00 Isosorbide Mononitrate (Imdur) 30 mg DAILY PO Last administered on 08/10/19 08:26; Start 08/10/19 at 09:00 Levothyroxine Sodium (Synthroid) 175 mcg DAILYAC PO Last administered on 08/10/19 08:27; Start 08/10/19 at 07:30 Pramipexole Dihydrochloride (miraPEX) 0.25 mg DAILY PO Last administered on 08/10/19 08:27; Start 08/10/19 at 09:00 Non-Formulary Medication (Albuterol Sulfate (Ventolin Hfa Inhaler)) 1 puff Q6HRS PRN INH SHORTNESS OF BREATH; Start 08/09/19 at 16:45; Status UNV Atorvastatin Calcium (Lipitor) 80 mg QHS PO Last administered on 08/09/19 21:30; Start 08/09/19 at 21:00 Fluticasone Propionate (Flonase) 2 spray DAILY NS Last administered on 08/10/19 08:27; Start 08/10/19 at 09:00 Insulin Glargine (Lantus Syringe) 5 unit QHS SQ Last administered on 08/09/19at 21:37; Start 08/09/19 at 21:00 Insulin Human Lispro (HumaLOG) 0-7 UNITS TIDACHC SQ ; Start 08/09/19 at 21:00; Status Cancel Dextrose (Dextrose 50%-Water Syringe) 12.5 gm PRN Q15MIN PRN IV SEE COMMENTS; Start 08/09/19 at 16:45 Dextrose (Iv Dextrose 5%) 250 ml PRN Q15MIN PRN IV SEE COMMENTS; Start 08/09/19 at 16:45; Status Cancel Albuterol Sulfate (Ventolin Neb Soln) 2.5 mg PRN Q6HRS PRN NEB SHORTNESS OF BREATH; Start 08/09/19 at 17:00 Heparin Sodium (Porcine) (Heparin Sodium) 5,000 unit Q8HRS SQ Last administered on 08/10/19at 05:27; Start 08/09/19 at 22:00 Info (PHARMACY MONITORING -- do not chart) 1 each PRN DAILY PRN MC SEE COMMENTS; Start 08/09/19 at 17:45 Info (PHARMACY MONITORING -- do not chart) 1 each PRN DAILY PRN MC SEE COMMENTS; Start 08/09/19 at 17:45; Status UNV Insulin Human Lispro (HumaLOG) 0-9 UNITS TIDWMEALS SQ ; Start 08/10/19 at 09:00 Dextrose (Dextrose 50%-Water Syringe) 12.5 gm PRN Q15MIN PRN IV SEE COMMENTS; Start 08/10/19 at 08:30; Status UNV Dextrose (Iv Dextrose 5%) 250 ml PRN Q15MIN PRN IV SEE COMMENTS; Start 08/10/19 at 08:30 Calcium Carbonate/ Glycine (Tums) 500 mg PRN AFTMEALHC PRN PO INDIGESTION; Start 08/10/19 at 08:30 Acetaminophen/ Hydrocodone Bitart (Lortab 5/325) 1 tab PRN Q4HRS PRN PO MODERATE - SEVERE PAIN Last administered on 08/10/19at 09:11; Start 08/10/19 at 08:30 Calcium Carbonate/ Glycine (Oscal) 500 mg BIDWMEALS PO Last administered on 08/10/19at 09:11; Start 08/10/19 at 09:00 Neomycin/ Polymyxin/ Bacitracin (Triple Antibiotic Ointment) 1 pkt DAILY TP ; Start 08/10/19 at 09:00 Levetiracetam (Keppra) 1,000 mg BID PO Last administered on 08/10/19at 09:11; Start 08/10/19 at 09:00 Losartan Potassium (Cozaar) 100 mg DAILY PO Last administered on 08/10/19at 09:12; Start 08/10/19 at 09:00 Magnesium Oxide (Magnesium Oxide) 200 mg BID PO Last administered on 08/10/19at 09:10; Start 08/10/19 at 09:00 Doxycycline Hyclate 100 mg/ Dextrose 100 ml @ 50 mls/hr Q12HR IV Last administered on 08/10/19at 10:48; Start 08/10/19 at 11:00 Active Scripts Active Carvedilol (Carvedilol) 6.25 Mg Tablet 6.25 Mg PO BIDWMEALS 30 Days Isosorbide Mononitrate Er (Isosorbide Mononitrate) 30 Mg Tab.er.24h 30 Mg PO DAILY 30 Days Flovent 110MCG Hfa (Fluticasone Propionate) 12 Gm Aer.w.adap 2 Puff IH BID Mirapex (Pramipexole Di-Hcl) 0.25 Mg Tablet 1 Tab PO DAILY Ventolin Hfa Inhaler (Albuterol Sulfate) 18 Gm Hfa.aer.ad 1 Puff INH Q6HRS PRN Levothyroxine Sodium 175 Mcg Tablet 175 Mcg PO DAILYAC Reported Triple Antibiotic Ointment Pkt (Neomycin/Bacitracin/Polymyxinb) 1 Each Oint.pack 1 Each TP DAILY Losartan Potassium 100 Mg Tablet 100 Mg PO DAILY Atorvastatin Calcium 80 Mg Tablet 80 Mg PO HS Cetirizine Hcl 10 Mg Tablet 1 Tab PO DAILY Magnesium (Magnesium Oxide) 400 Mg Capsule 250 Mg PO BID Tums (Calcium Carbonate) 200 Mg Tab.chew 200 Mg PO PRN Q4HRS PRN Aspirin 81 Mg Tab.chew 1 Tab PO DAILY Calcium Carbonate 500 Mg Tablet 500 Mg PO BID Keppra (Levetiracetam) 1,000 Mg Tablet 1 Tab PO BID Tylenol (Acetaminophen) 325 Mg Tablet 650 Mg PO PRN Q6HRS PRN Vitals/I & O Vital Sign - Last 24 Hours 08/09/19 08/09/19 08/09/19 08/09/19 11:46 13:15 13:30 14:00 Temp 99.0 99.0 Pulse 96 92 Resp 16 18 18 18 B/P (MAP) 153/73 (99) 148/69 (95) Pulse Ox 96 98 O2 Delivery Room Air Nasal Cannula O2 Flow Rate 2.0 08/09/19 08/09/19 08/09/19 08/09/19 14:25 14:33 20:00 20:14 Pulse 90 Resp 18 18 B/P (MAP) 152/72 (98) Pulse Ox 99 O2 Delivery Nasal Cannula Room Air Room Air O2 Flow Rate 2.0 08/09/19 08/09/19 08/09/19 08/09/19 20:15 20:44 21:30 23:44 Temp 98.7 98.7 Pulse 103 98 Resp 21 B/P (MAP) 140/66 (90) 140/66 Pulse Ox 94 O2 Delivery Room Air Room Air Nasal Cannula O2 Flow Rate 2.0 08/09/19 08/10/19 08/10/19 08/10/19 23:45 00:14 03:30 07:59 Temp 98.1 98.0 99.3 98.1 98.0 99.3 Pulse 93 93 92 Resp 18 18 22 B/P (MAP) 151/73 (99) 142/61 (88) 148/72 (97) Pulse Ox 90 98 94 O2 Delivery Room Air Nasal Cannula Nasal Cannula Room Air O2 Flow Rate 2.0 2.0 08/10/19 08/10/19 08/10/19 08/10/19 08:00 08:26 08:27 09:11 Pulse 91 92 Resp 18 B/P (MAP) 148/72 148/72 Pulse Ox 98 O2 Delivery Room Air Room Air O2 Flow Rate 2.0 2.0 08/10/19 08/10/19 09:12 10:44 Pulse 92 Resp 16 B/P (MAP) 148/72 Pulse Ox 98 O2 Delivery Room Air O2 Flow Rate 2.0 Intake and Output 08/09/19 08/09/19 08/10/19 15:00 23:00 07:00 Intake Total 110 ml Balance 110 ml ANDRAE ROA MD Aug 10, 2019 11:10
--- NOTE | 2019-08-10 11:44 | RAD ---
Examination: CT chest without contrast HISTORY: History of left effusion COMPARISON: 11/25/2018 TECHNIQUE: Axial CT images of chest were performed without contrast. Coronal and sagittal reformats are performed. Exposure: One or more of the following individualized dose reduction techniques were utilized for this examination: 1. Automated exposure control 2. Adjustment of the mA and/or kV according to patient size 3. Use of iterative reconstruction technique FINDINGS: Moderate cardiomegaly. Mild pericardial effusion identified. Moderate left lingula and left lower lobe lung consolidation atelectasis is identified. Small bilateral pleural effusions, left greater than right. Mild right lung base airspace opacities likely atelectasis or infiltrate. The visualized noncontrasted liver, spleen grossly appears unremarkable. Moderate degenerative changes thoracic spine. Kyphoplasty changes identified at L1 vertebral level. Partially visualized cervical lymph nodes identified with the largest measuring 1.7 cm in the right supraclavicular region again identified. IMPRESSION: 1. Moderate consolidation left lingula and left lower lobe lung likely pneumonia or atelectasis. 2. Mild pericardial effusion. Electronically signed by: Derek Sullivan MD (08/10/2019 11:41 AM) [facility]
[2019-08-10] MEDS: GABAPENTIN 100 MG CAPSULE. PO SCH ×2 (12:09→21:31)
--- NOTE | 2019-08-10 12:54 | EKG ---
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
[2019-08-10 15:00] VITALS: BP 127/51
--- NOTE | 2019-08-10 15:33 | PDOC2 ---
CONSULT Date of Consult Date of Consult DATE: 08/10/19 TIME: 15:26 Reason for Consult Reason for Consult: ESRD Referring Physician Referring Physician: LUI Identification/Chief Complaint Chief Complaint SOB AND CHEST PAIN Source Source: Chart review, Patient History of Present Illness Reason for Visit: THIS IS A 54 YR OLD ESRD PT ADMITTED WITH CHEST PAIN AND SOB. HE HAS OP HD IN [place] BUT HAS NOT BEEN TO DIALYSIS SINCE . STATES THAT HE WAS BUSY TAKING CARE OF HIS WHO HAD A STROKE AND TAKING CARE OF HIS GRANDCHILD. LABS C/W ESRD. IMAGING POS FOR CHF AND LARGE LEFT PLEURAL EFFUSIONS. APPETITE HAS BEEN POOR . BNP HIGH. ESRD DUE TO HTN AND DM II. HAS HX OF NON COMPLIANCE. HAS HAD MULITPLE WOUNDS AND AMPUTATIONS Past Medical History Cardiovascular: AFIB, CAD, CHF, HTN, NC, Hyperlipidemia, Other Pulmonary: COPD CENTRAL NERVOUS SYSTEM: Dementia, Periperal neuropathy, Seizure, TIA GI: Diverticulosis, Other Heme/Onc: Anemia NOS Hepatobiliary: No pertinent hx Psych: Anxiety, Depression Musculoskeletal: Osteoarthritis Rheumatologic: Rheumatoid arthritis Infectious disease: No pertinent hx Renal/: Chronic renal failure Endocrine: Diabetes, Hypothyroidism, Hyperparathyroidism Past Surgical History Past Surgical History: Cataract Removal, Total knee replacement, Other Family History Family History: Diabetes, Hypertension Social History Social History: Parent No ALCOHOL: none Drugs: None Lives: with Family Current Problem List Problem List Problems Medical Problems: (1) Chest pain Status: Acute (2) Noncompliance with renal dialysis Status: Acute (3) Pleural effusion Status: Acute Current Medications Current Medications Current Medications Fentanyl Citrate (Fentanyl 2ml Vial) 50 mcg 1X ONCE IV Last administered on 08/09/19at 13:30; Start 08/09/19 at 13:30; Stop 08/09/19 at 13:31; Status DC Ondansetron HCl (Zofran) 4 mg PRN Q8HRS PRN IV NAUSEA/VOMITING; Start 08/09/19 at 14:15; Stop 08/10/19 at 14:14; Status DC Fentanyl Citrate (Fentanyl 2ml Vial) 50 mcg PRN Q2HRS PRN IV PAIN Last adm inistered on 08/09/19at 23:44; Start 08/09/19 at 14:15 Insulin Human Lispro (HumaLOG) 0-5 UNITS TIDWMEALS SQ ; Start 08/09/19 at 17:00; Stop 08/10/19 at 08:29; Status DC Dextrose (Dextrose 50%-Water Syringe) 12.5 gm PRN Q15MIN PRN IV SEE COMMENTS; Start 08/09/19 at 14:15; Status Cancel Dextrose (Iv Dextrose 5%) 250 ml PRN Q15MIN PRN IV SEE COMMENTS; Start 08/09/19 at 14:15; Status Cancel Acetaminophen (Tylenol) 650 mg PRN Q6HRS PRN PO FEVER Last administered on 08/10/19at 05:23; Start 08/09/19 at 16:45 Aspirin (Children'S Aspirin) 81 mg DAILY PO Last administered on 08/10/19at 08:26; Start 08/10/19 at 09:00 Calcium Carbonate/ Glycine (Tums) 250 mg PRN Q4HRS PRN PO INDIGESTION; Start 08/09/19 at 16:45; Stop 08/10/19 at 08:34; Status DC Carvedilol (Coreg) 6.25 mg BIDWMEALS PO Last administered on 08/10/19at 08:27; Start 08/09/19 at 17:00 Cetirizine HCl (ZyrTEC) 10 mg DAILY PO Last administered on 08/10/19 08:27; Start 08/10/19 at 09:00 Isosorbide Mononitrate (Imdur) 30 mg DAILY PO Last administered on 08/10/19 08:26; Start 08/10/19 at 09:00 Levothyroxine Sodium (Synthroid) 175 mcg DAILYAC PO Last administered on 08/10/19at 08:27; Start 08/10/19 at 07:30 Pramipexole Dihydrochloride (miraPEX) 0.25 mg DAILY PO Last administered on 08:27; Start 08/10/19 at 09:00 Non-Formulary Medication (Albuterol Sulfate (Ventolin Hfa Inhaler)) 1 puff Q6HRS PRN INH SHORTNESS OF BREATH; Start 08/09/19 at 16:45; Status UNV Atorvastatin Calcium (Lipitor) 80 mg QHS PO Last administered on 08/09/19at 21:30; Start 08/09/19 at 21:00 Fluticasone Propionate (Flonase) 2 spray DAILY NS Last administered on 08/10/19at 08:27; Start 08/10/19 at 09:00 Insulin Glargine (Lantus Syringe) 5 unit QHS SQ Last administered on 08/09/19at 21:37; Start 08/09/19 at 21:00 Insulin Human Lispro (HumaLOG) 0-7 UNITS TIDACHC SQ ; Start 08/09/19 at 21:00; Status Cancel Dextrose (Dextrose 50%-Water Syringe) 12.5 gm PRN Q15MIN PRN IV SEE COMMENTS; Start 08/09/19 at 16:45 Dextrose (Iv Dextrose 5%) 250 ml PRN Q15MIN PRN IV SEE COMMENTS; Start 08/09/19 at 16:45; Status Cancel Albuterol Sulfate (Ventolin Neb Soln) 2.5 mg PRN Q6HRS PRN NEB SHORTNESS OF BREATH; Start 08/09/19 at 17:00 Heparin Sodium (Porcine) (Heparin Sodium) 5,000 unit Q8HRS SQ Last administered on 08/10/19at 14:00; Start 08/09/19 at 22:00 Info (PHARMACY MONITORING -- do not chart) 1 each PRN DAILY PRN MC SEE COMMENTS; Start 08/09/19 at 17:45 Info (PHARMACY MONITORING -- do not chart) 1 each PRN DAILY PRN MC SEE COMMENTS; Start 08/09/19 at 17:45; Status UNV Insulin Human Lispro (HumaLOG) 0-9 UNITS TIDWMEALS SQ ; Start 08/10/19 at 09:00 Dextrose (Dextrose 50%-Water Syringe) 12.5 gm PRN Q15MIN PRN IV SEE COMMENTS; Start 08/10/19 at 08:30; Status UNV Dextrose (Iv Dextrose 5%) 250 ml PRN Q15MIN PRN IV SEE COMMENTS; Start 08/10/19 at 08:30 Calcium Carbonate/ Glycine (Tums) 500 mg PRN AFTMEALHC PRN PO INDIGESTION; St art 08/10/19 at 08:30 Acetaminophen/ Hydrocodone Bitart (Lortab 5/325) 1 tab PRN Q4HRS PRN PO MODERATE - SEVERE PAIN Last administered on 08/10/19at 09:11; Start 08/10/19 at 08:30 Calcium Carbonate/ Glycine (Oscal) 500 mg BIDWMEALS PO Last administered on 08/10/19at 09:11; Start 08/10/19 at 09:00 Neomycin/ Polymyxin/ Bacitracin (Triple Antibiotic Ointment) 1 pkt DAILY TP ; Start 08/10/19 at 09:00 Levetiracetam (Keppra) 1,000 mg BID PO Last administered on 08/10/19at 09:11; Start 08/10/19 at 09:00 Losartan Potassium (Cozaar) 100 mg DAILY PO Last administered on 08/10/19at 09:12; Start 08/10/19 at 09:00 Magnesium Oxide (Magnesium Oxide) 200 mg BID PO Last administered on 08/10/19at 09:10; Start 08/10/19 at 09:00 Doxycycline Hyclate 100 mg/ Dextrose 100 ml @ 50 mls/hr Q12HR IV Last administered on 08/10/19at 10:48; Start 08/10/19 at 11:00 Lactobacillus Rhamnosus (Culturelle) 1 cap BID PO ; Start 08/10/19 at 21:00 Gabapentin (Neurontin) 100 mg BID PO Last administered on 08/10/19at 12:09; Start 08/10/19 at 11:15 Active Scripts Active Carvedilol (Carvedilol) 6.25 Mg Tablet 6.25 Mg PO BIDWMEALS 30 Days Isosorbide Mononitrate Er (Isosorbide Mononitrate) 30 Mg Tab.er.24h 30 Mg PO DAILY 30 Days Flovent 110MCG Hfa (Fluticasone Propionate) 12 Gm Aer.w.adap 2 Puff IH BID Mirapex (Pramipexole Di-Hcl) 0.25 Mg Tablet 1 Tab PO DAILY Ventolin Hfa Inhaler (Albuterol Sulfate) 18 Gm Hfa.aer.ad 1 Puff INH Q6HRS PRN Levothyroxine Sodium 175 Mcg Tablet 175 Mcg PO DAILYAC Reported Triple Antibiotic Ointment Pkt (Neomycin/Bacitracin/Polymyxinb) 1 Each Oint.pack 1 Each TP DAILY Losartan Potassium 100 Mg Tablet 100 Mg PO DAILY Atorvastatin Calcium 80 Mg Tablet 80 Mg PO HS Cetirizine Hcl 10 Mg Tablet 1 Tab PO DAILY Magnesium (Magnesium Oxide) 400 Mg Capsule 250 Mg PO BID Tums (Calcium Carbonate) 200 Mg Tab.chew 200 Mg PO PRN Q4HRS PRN Aspirin 81 Mg Tab.chew 1 Tab PO DAILY Calcium Carbonate 500 Mg Tablet 500 Mg PO BID Keppra (Levetiracetam) 1,000 Mg Tablet 1 Tab PO BID Tylenol (Acetaminophen) 325 Mg Tablet 650 Mg PO PRN Q6HRS PRN Allergies Allergies: Coded Allergies: iodine (Verified Allergy, Severe, THROAT SWELLING, 01/16/19) lisinopril (Verified Allergy, Severe, 01/16/19) Fish Containing Products (Verified Allergy, Intermediate, 01/16/19) Penicillins (Verified Allergy, Intermediate, SEE COMMENT, 01/16/19) Tolerates meropenem and Cephalosporins piperacillin (Verified Allergy, Intermediate, Hives, 01/16/19) Tolerates meropenem tazobactam (Verified Allergy, Intermediate, 01/16/19) I S O L A T I O N *CONTACT* (Verified Allergy, Unknown, 02/26/19) mrsa ROS General: YES: Fatigue, Malaise, Appetite PSYCHOLOGICAL ROS: YES: Anxiety, Depression Eyes: Yes Decreased vision HEENT: YES: Martine ALLERGY AND IMMUNOLOGY: YES: Seasonal Allergies Respiratory: YES: Cough, Orthopnea, Shortness of breath Cardiovascular: yes Chest Pain, yes Orthopnea, yes Edema Gastrointestinal: Yes Constipation Genitourinary: YES Other (OLIGURIA) Musculoskeletal: Yes Muscular Weakness Neurological: Yes Weakness Skin: Yes Dry Skin Physical Exam General: Alert, Oriented X3, Cooperative, mild distress HEENT: Atraumatic, PERRLA Lungs: Other (DECREASED AT BASES) Heart: Regular rate Abdomen: Normal bowel sounds, Soft Extremities: No clubbing, No cyanosis Skin: No breakdown Neuro: Normal speech Psych/Mental Status: Mood NL MUSCULOSKELETAL: No joint tenderness, No deformity Vitals VITALS Vital Signs Date Time Temp Pulse Resp B/P (MAP) Pulse Ox O2 Delivery O2 Flow Rate FiO2 08/10/19 15:00 97.6 82 20 127/51 (76) 93 Room Air 97.6 08/10/19 10:44 2.0 Labs Labs Laboratory Tests Test 08/09/19 13:15 08/09/19 14:10 08/09/19 20:08 08/09/19 20:45 White Blood Count 7.8 x10^3/uL (4.0-11.0) Red Blood Count 3.04 x10^6/uL (4.30-5.70) Hemoglobin 8.4 g/dL (13.0-17.5) Hematocrit 26.6 % (39.0-53.0) Mean Corpuscular Volume 87 fL (79-100) Mean Corpuscular Hemoglobin 28 pg (25-35) Mean Corpuscular Hemoglobin Concent 32 g/dL (31-37) Red Cell Distribution Width 16.4 % (11.5-14.5) Platelet Count 260 x10^3/uL (140-400) Neutrophils (%) (Auto) 80 % (31-73) Lymphocytes (%) (Auto) 6 % (24-48) Monocytes (%) (Auto) 13 % (0-9) Eosinophils (%) (Auto) 1 % (0-3) Basophils (%) (Auto) 1 % (0-3) Neutrophils # (Auto) 6.2 x10^3/uL (1.8-7.7) Lymphocytes # (Auto) 0.4 x10^3/uL (1.0-4.8) Monocytes # (Auto) 1.0 x10^3/uL (0.0-1.1) Eosinophils # (Auto) 0.1 x10^3/uL (0.0-0.7) Basophils # (Auto) 0.1 x10^3/uL (0.0-0.2) Sodium Level 137 mmol/L (136-145) Potassium Level 5.2 mmol/L (3.5-5.1) Chloride Level 106 mmol/L (98-107) Carbon Dioxide Level 16 mmol/L (21-32) Anion Gap 15 (6-14) Blood Urea Nitrogen 74 mg/dL (8-26) Creatinine 6.5 mg/dL (0.7-1.3) Estimated GFR (Cockcroft-Gault) 10.9 BUN/Creatinine Ratio 11 (6-20) Glucose Level 141 mg/dL (70-99) Calcium Level 8.6 mg/dL (8.5-10.1) Magnesium Level 2.2 mg/dL (1.8-2.4) Total Bilirubin 1.0 mg/dL (0.2-1.0) Aspartate Amino Transf (AST/SGOT) 13 U/L (15-37) Alanine Aminotransferase (ALT/SGPT) < 6 U/L (16-63) Alkaline Phosphatase 73 U/L (46-116) Creatine Kinase 186 U/L (39-308) Creatine Kinase MB (Mass) 3.7 ng/mL (0.0-3.6) Creatine Kinase MB Relative Index 2.0 % (0-4) Troponin I Quantitative < 0.017 ng/mL (0.000-0.055) < 0.017 ng/mL (0.000-0.055) SS-Iul-U-Type Natriuretic Peptide 32447 pg/mL (0-124) Total Protein 7.7 g/dL (6.4-8.2) Albumin 2.0 g/dL (3.4-5.0) Albumin/Globulin Ratio 0.4 (1.0-1.7) Lipase 42 U/L (73-393) Prothrombin Time 19.0 SEC (11.7-14.0) Prothromb Time International Ratio 1.6 (0.8-1.1) Activated Partial Thromboplast Time 37 SEC (24-38) Procalcitonin 3.30 ng/mL (0.00-0.10) Glucose (Fingerstick) 97 mg/dL (70-99) Test 08/10/19 07:50 08/10/19 08:05 08/10/19 11:55 White Blood Count 6.9 x10^3/uL (4.0-11.0) Red Blood Count 2.87 x10^6/uL (4.30-5.70) Hemoglobin 8.0 g/dL (13.0-17.5) Hematocrit 24.8 % (39.0-53.0) Mean Corpuscular Volume 87 fL (79-100) Mean Corpuscular Hemoglobin 28 pg (25-35) Mean Corpuscular Hemoglobin Concent 32 g/dL (31-37) Red Cell Distribution Width 16.3 % (11.5-14.5) Platelet Count 217 x10^3/uL (140-400) Neutrophils (%) (Auto) 76 % (31-73) Lymphocytes (%) (Auto) 7 % (24-48) Monocytes (%) (Auto) 15 % (0-9) Eosinophils (%) (Auto) 1 % (0-3) Basophils (%) (Auto) 1 % (0-3) Neutrophils # (Auto) 5.2 x10^3/uL (1.8-7.7) Lymphocytes # (Auto) 0.5 x10^3/uL (1.0-4.8) Monocytes # (Auto) 1.1 x10^3/uL (0.0-1.1) Eosinophils # (Auto) 0.1 x10^3/uL (0.0-0.7) Basophils # (Auto) 0.1 x10^3/uL (0.0-0.2) Sodium Level 140 mmol/L (136-145) Potassium Level 4.4 mmol/L (3.5-5.1) Chloride Level 103 mmol/L (98-107) Carbon Dioxide Level 27 mmol/L (21-32) Anion Gap 10 (6-14) Blood Urea Nitrogen 32 mg/dL (8-26) Creatinine 4.3 mg/dL (0.7-1.3) Estimated GFR (Cockcroft-Gault) 17.5 Glucose Level 106 mg/dL (70-99) Calcium Level 7.9 mg/dL (8.5-10.1) Phosphorus Level 3.6 mg/dL (2.6-4.7) Troponin I Quantitative < 0.017 ng/mL (0.000-0.055) Albumin 1.8 g/dL (3.4-5.0) Glucose (Fingerstick) 103 mg/dL (70-99) 116 mg/dL (70-99) Laboratory Tests Test 08/09/19 20:08 08/09/19 20:45 08/10/19 07:50 08/10/19 08:05 Troponin I Quantitative < 0.017 ng/mL (0.000-0.055) < 0.017 ng/mL (0.000-0.055) Procalcitonin 3.30 ng/mL (0.00-0.10) Glucose (Fingerstick) 97 mg/dL (70-99) 103 mg/dL (70-99) White Blood Count 6.9 x10^3/uL (4.0-11.0) Red Blood Count 2.87 x10^6/uL (4.30-5.70) Hemoglobin 8.0 g/dL (13.0-17.5) Hematocrit 24.8 % (39.0-53.0) Mean Corpuscular Volume 87 fL (79-100) Mean Corpuscular Hemoglobin 28 pg (25-35) Mean Corpuscular Hemoglobin Concent 32 g/dL (31-37) Red Cell Distribution Width 16.3 % (11.5-14.5) Platelet Count 217 x10^3/uL (140-400) Neutrophils (%) (Auto) 76 % (31-73) Lymphocytes (%) (Auto) 7 % (24-48) Monocytes (%) (Auto) 15 % (0-9) Eosinophils (%) (Auto) 1 % (0-3) Basophils (%) (Auto) 1 % (0-3) Neutrophils # (Auto) 5.2 x10^3/uL (1.8-7.7) Lymphocytes # (Auto) 0.5 x10^3/uL (1.0-4.8) Monocytes # (Auto) 1.1 x10^3/uL (0.0-1.1) Eosinophils # (Auto) 0.1 x10^3/uL (0.0-0.7) Basophils # (Auto) 0.1 x10^3/uL (0.0-0.2) Sodium Level 140 mmol/L (136-145) Potassium Level 4.4 mmol/L (3.5-5.1) Chloride Level 103 mmol/L (98-107) Carbon Dioxide Level 27 mmol/L (21-32) Anion Gap 10 (6-14) Blood Urea Nitrogen 32 mg/dL (8-26) Creatinine 4.3 mg/dL (0.7-1.3) Estimated GFR (Cockcroft-Gault) 17.5 Glucose Level 106 mg/dL (70-99) Calcium Level 7.9 mg/dL (8.5-10.1) Phosphorus Level 3.6 mg/dL (2.6-4.7) Albumin 1.8 g/dL (3.4-5.0) Test 08/10/19 11:55 Glucose (Fingerstick) 116 mg/dL (70-99) Assessment/Plan Assessment/Plan IMP CHF-ACUTE AND CHRONIC DIASTOLIC AND PROB SYSTOLIC ACUTE RESP FAILURE DUE TO ABOVE NON COMPLIANCE ANEMIA ESRD DM II HTN HX OF CAD PLEURAL EFFUSION PLAN ENC COMPLIANCE KEITH TO START HD DONE EMERGENTLY LAST NIGHT HD AGAIN TOMORROW PULM GRACE POE MD Aug 10, 2019 15:33
--- NOTE | 2019-08-10 16:15 | NUR ---
Patient arrived to unit via bed, oriented to unit and call light within reach will continue to monitor.
[2019-08-10 19:00] VITALS: BP 113/42
[2019-08-10] MEDS: INSULIN GLARGINE SYRINGE. SQ SCH ×2 (21:00→21:36)
[2019-08-10] MEDS ORDERED: DARBEPOETIN ALFA 60 MCG/0.3 ML DISP.SYRIN. SQ SCH (21:00)
[2019-08-10] MEDS: ATORVASTATIN CALCIUM 40 MG TABLET. PO SCH (21:30)
[2019-08-10] MEDS: LACTOBACILLUS RHAMNOSUS GG 1 CAPSULE. PO SCH (21:31)
--- NOTE | 2019-08-10 21:46 | NUR ---
non-administered lantus. pt. states he doesnt take any sort of insulin anymore.
[2019-08-10 23:00] VITALS: BP 111/56
[2019-08-11 02:58] VITALS: BP 98/55
[2019-08-11 03:51] VITALS: BP 132/65
[2019-08-11] MEDS: HYDROcodone/APAP 5/325MG 1 TAB TABLET PO PRN ×2 (03:53→08:48)
--- NOTE | 2019-08-11 03:54 | NUR ---
0350-- pt. stated he woke up with sharp chest pain that is worse when breathing in deeply. He shows this RN where the pain is and it is on the right lateral side. VSS. Pain pill was given. Will continue to monitor.
[2019-08-11] MEDS: NITROGLYCERIN SUBLINGUAL 0.4 MG BOTTLE OF 25. SL PRN ×2 (05:11→20:02)
[2019-08-11] MEDS: LEVOTHYROXINE 175 MCG TABLET PO SCH (05:13)
[2019-08-11] MEDS: fentaNYL PF VIAL 100 MCG/2 ML VIAL IV PRN (05:13)
--- NOTE | 2019-08-11 05:20 | EKG ---
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
[2019-08-11] MEDS: HEPARIN for SUB-Q USE 5,000 UNIT/ML VIAL. SQ SCH ×3 (05:25→21:37)
[2019-08-11 06:09] LABS: BASO # 0.1 x10^3/uL (0.0-0.2); BASO % 1 % (0-3); EOS # 0.1 x10^3/uL (0.0-0.7); EOS % 2 % (0-3); HEMATOCRIT 23.5 % (39.0-53.0); HEMOGLOBIN 7.5 g/dL (13.0-17.5); LYMPH # 0.5 x10^3/uL (1.0-4.8); LYMPH % 9 % (24-48); MEAN CORPUSCULAR HEMOGLOBIN 28 pg (25-35); MEAN CORPUSCULAR HGB CONC 32 g/dL (31-37); MEAN CORPUSCULAR VOLUME 87 fL (79-100); MONO % 16 % (0-9); NEUT # 4.4 x10^3/uL (1.8-7.7); NEUT % 72 % (31-73); PLATELET COUNT 219 x10^3/uL (140-400); RED BLOOD COUNT 2.69 x10^6/uL (4.30-5.70); RED CELL DISTRIBUTION WIDTH 16.3 % (11.5-14.5); WHITE BLOOD COUNT 6.1 x10^3/uL (4.0-11.0)
[2019-08-11 06:21] LABS: ALBUMIN 1.8 g/dL (3.4-5.0); CALCIUM 8.1 mg/dL (8.5-10.1); CREATININE 5.5 mg/dL (0.7-1.3); GFR 13.2; PHOSPHORUS 4.3 mg/dL (2.6-4.7); POTASSIUM 4.3 mmol/L (3.5-5.1)
[2019-08-11 07:00] VITALS: BP 120/103
[2019-08-11] MEDS: INSULIN LISPRO 300 UNITS/3 ML VIAL. SQ SCH ×3 (08:00→17:00)
[2019-08-11] MEDS ORDERED: IV NORMAL SALINE 1000ML BAG 1,000 ML IV PRN ×2 (08:25)
[2019-08-11] MEDS ORDERED: DIALYSIS PATIENT. MC PRN ×2 (08:30)
[2019-08-11] MEDS ORDERED: 0.9 % SODIUM CHLORIDE 10 ML DISP.SYRIN. IV PRN ×2 (08:30)
[2019-08-11] MEDS ORDERED: ALBUMIN HUMAN 25% 200 ML IV PRN (08:30)
[2019-08-11] MEDS: NEOMY/BACITR/POLYMYXIN OINT PACKET. TP SCH (09:00)
--- NOTE | 2019-08-11 09:30 | NUR ---
IP: Pt has a hx of + mrsa screens since 2016 with most recent on 06/05/19. Pt to be in contact precautions until there are 2 negative screens 7 day apart.
--- NOTE | 2019-08-11 09:33 | PDOC ---
PULMONARY PROGRESS NOTES Subjective PT NOT MORE SOA FEELS BETTER Vitals Vital Signs Date Time Temp Pulse Resp B/P (MAP) Pulse Ox O2 Delivery O2 Flow Rate FiO2 08/11/19 08:48 93 Room Air 08/11/19 07:00 97.6 84 20 120/103 (109) 97.6 08/10/19 10:44 2.0 ROS: No Nausea, No Chest Pain, No Abdominal Pain, No Increase Cough General: Alert Lungs: Clear, Crackles Cardiovascular: S1, S2 Abdomen: Soft, Non-tender Neuro Exam: Alert Extremities: No Edema Labs Laboratory Tests Test 08/09/19 13:15 08/09/19 14:10 08/09/19 20:08 08/09/19 20:45 White Blood Count 7.8 x10^3/uL (4.0-11.0) Red Blood Count 3.04 x10^6/uL (4.30-5.70) Hemoglobin 8.4 g/dL (13.0-17.5) Hematocrit 26.6 % (39.0-53.0) Mean Corpuscular Volume 87 fL (79-100) Mean Corpuscular Hemoglobin 28 pg (25-35) Mean Corpuscular Hemoglobin Concent 32 g/dL (31-37) Red Cell Distribution Width 16.4 % (11.5-14.5) Platelet Count 260 x10^3/uL (140-400) Neutrophils (%) (Auto) 80 % (31-73) Lymphocytes (%) (Auto) 6 % (24-48) Monocytes (%) (Auto) 13 % (0-9) Eosinophils (%) (Auto) 1 % (0-3) Basophils (%) (Auto) 1 % (0-3) Neutrophils # (Auto) 6.2 x10^3/uL (1.8-7.7) Lymphocytes # (Auto) 0.4 x10^3/uL (1.0-4.8) Monocytes # (Auto) 1.0 x10^3/uL (0.0-1.1) Eosinophils # (Auto) 0.1 x10^3/uL (0.0-0.7) Basophils # (Auto) 0.1 x10^3/uL (0.0-0.2) Sodium Level 137 mmol/L (136-145) Potassium Level 5.2 mmol/L (3.5-5.1) Chloride Level 106 mmol/L (98-107) Carbon Dioxide Level 16 mmol/L (21-32) Anion Gap 15 (6-14) Blood Urea Nitrogen 74 mg/dL (8-26) Creatinine 6.5 mg/dL (0.7-1.3) Estimated GFR (Cockcroft-Gault) 10.9 BUN/Creatinine Ratio 11 (6-20) Glucose Level 141 mg/dL (70-99) Calcium Level 8.6 mg/dL (8.5-10.1) Magnesium Level 2.2 mg/dL (1.8-2.4) Total Bilirubin 1.0 mg/dL (0.2-1.0) Aspartate Amino Transf (AST/SGOT) 13 U/L (15-37) Alanine Aminotransferase (ALT/SGPT) < 6 U/L (16-63) Alkaline Phosphatase 73 U/L (46-116) Creatine Kinase 186 U/L (39-308) Creatine Kinase MB (Mass) 3.7 ng/mL (0.0-3.6) Creatine Kinase MB Relative Index 2.0 % (0-4) Troponin I Quantitative < 0.017 ng/mL (0.000-0.055) < 0.017 ng/mL (0.000-0.055) ET-Inb-I-Type Natriuretic Peptide 74550 pg/mL (0-124) Total Protein 7.7 g/dL (6.4-8.2) Albumin 2.0 g/dL (3.4-5.0) Albumin/Globulin Ratio 0.4 (1.0-1.7) Lipase 42 U/L (73-393) Prothrombin Time 19.0 SEC (11.7-14.0) Prothromb Time International Ratio 1.6 (0.8-1.1) Activated Partial Thromboplast Time 37 SEC (24-38) Procalcitonin 3.30 ng/mL (0.00-0.10) Glucose (Fingerstick) 97 mg/dL (70-99) Test 08/10/19 07:50 08/10/19 08:05 08/10/19 11:55 08/10/19 16:31 White Blood Count 6.9 x10^3/uL (4.0-11.0) Red Blood Count 2.87 x10^6/uL (4.30-5.70) Hemoglobin 8.0 g/dL (13.0-17.5) Hematocrit 24.8 % (39.0-53.0) Mean Corpuscular Volume 87 fL (79-100) Mean Corpuscular Hemoglobin 28 pg (25-35) Mean Corpuscular Hemoglobin Concent 32 g/dL (31-37) Red Cell Distribution Width 16.3 % (11.5-14.5) Platelet Count 217 x10^3/uL (140-400) Neutrophils (%) (Auto) 76 % (31-73) Lymphocytes (%) (Auto) 7 % (24-48) Monocytes (%) (Auto) 15 % (0-9) Eosinophils (%) (Auto) 1 % (0-3) Basophils (%) (Auto) 1 % (0-3) Neutrophils # (Auto) 5.2 x10^3/uL (1.8-7.7) Lymphocytes # (Auto) 0.5 x10^3/uL (1.0-4.8) Monocytes # (Auto) 1.1 x10^3/uL (0.0-1.1) Eosinophils # (Auto) 0.1 x10^3/uL (0.0-0.7) Basophils # (Auto) 0.1 x10^3/uL (0.0-0.2) Sodium Level 140 mmol/L (136-145) Potassium Level 4.4 mmol/L (3.5-5.1) Chloride Level 103 mmol/L (98-107) Carbon Dioxide Level 27 mmol/L (21-32) Anion Gap 10 (6-14) Blood Urea Nitrogen 32 mg/dL (8-26) Creatinine 4.3 mg/dL (0.7-1.3) Estimated GFR (Cockcroft-Gault) 17.5 Glucose Level 106 mg/dL (70-99) Calcium Level 7.9 mg/dL (8.5-10.1) Phosphorus Level 3.6 mg/dL (2.6-4.7) Troponin I Quantitative < 0.017 ng/mL (0.000-0.055) Albumin 1.8 g/dL (3.4-5.0) Glucose (Fingerstick) 103 mg/dL (70-99) 116 mg/dL (70-99) 124 mg/dL (70-99) Test 08/10/19 20:32 08/11/19 05:21 08/11/19 08:04 Glucose (Fingerstick) 122 mg/dL (70-99) 89 mg/dL (70-99) White Blood Count 6.1 x10^3/uL (4.0-11.0) Red Blood Count 2.69 x10^6/uL (4.30-5.70) Hemoglobin 7.5 g/dL (13.0-17.5) Hematocrit 23.5 % (39.0-53.0) Mean Corpuscular Volume 87 fL (79-100) Mean Corpuscular Hemoglobin 28 pg (25-35) Mean Corpuscular Hemoglobin Concent 32 g/dL (31-37) Red Cell Distribution Width 16.3 % (11.5-14.5) Platelet Count 219 x10^3/uL (140-400) Neutrophils (%) (Auto) 72 % (31-73) Lymphocytes (%) (Auto) 9 % (24-48) Monocytes (%) (Auto) 16 % (0-9) Eosinophils (%) (Auto) 2 % (0-3) Basophils (%) (Auto) 1 % (0-3) Neutrophils # (Auto) 4.4 x10^3/uL (1.8-7.7) Lymphocytes # (Auto) 0.5 x10^3/uL (1.0-4.8) Monocytes # (Auto) 1.0 x10^3/uL (0.0-1.1) Eosinophils # (Auto) 0.1 x10^3/uL (0.0-0.7) Basophils # (Auto) 0.1 x10^3/uL (0.0-0.2) D-Dimer (Quyen) 9.87 ug/mlFEU (0.00-0.50) Sodium Level 139 mmol/L (136-145) Potassium Level 4.3 mmol/L (3.5-5.1) Chloride Level 104 mmol/L (98-107) Carbon Dioxide Level 27 mmol/L (21-32) Anion Gap 8 (6-14) Blood Urea Nitrogen 37 mg/dL (8-26) Creatinine 5.5 mg/dL (0.7-1.3) Estimated GFR (Cockcroft-Gault) 13.2 Glucose Level 101 mg/dL (70-99) Calcium Level 8.1 mg/dL (8.5-10.1) Phosphorus Level 4.3 mg/dL (2.6-4.7) Troponin I Quantitative < 0.017 ng/mL (0.000-0.055) Albumin 1.8 g/dL (3.4-5.0) Laboratory Tests Test 08/10/19 11:55 08/10/19 16:31 08/10/19 20:32 08/11/19 05:21 Glucose (Fingerstick) 116 mg/dL (70-99) 124 mg/dL (70-99) 122 mg/dL (70-99) White Blood Count 6.1 x10^3/uL (4.0-11.0) Red Blood Count 2.69 x10^6/uL (4.30-5.70) Hemoglobin 7.5 g/dL (13.0-17.5) Hematocrit 23.5 % (39.0-53.0) Mean Corpuscular Volume 87 fL (79-100) Mean Corpuscular Hemoglobin 28 pg (25-35) Mean Corpuscular Hemoglobin Concent 32 g/dL (31-37) Red Cell Distribution Width 16.3 % (11.5-14.5) Platelet Count 219 x10^3/uL (140-400) Neutrophils (%) (Auto) 72 % (31-73) Lymphocytes (%) (Auto) 9 % (24-48) Monocytes (%) (Auto) 16 % (0-9) Eosinophils (%) (Auto) 2 % (0-3) Basophils (%) (Auto) 1 % (0-3) Neutrophils # (Auto) 4.4 x10^3/uL (1.8-7.7) Lymphocytes # (Auto) 0.5 x10^3/uL (1.0-4.8) Monocytes # (Auto) 1.0 x10^3/uL (0.0-1.1) Eosinophils # (Auto) 0.1 x10^3/uL (0.0-0.7) Basophils # (Auto) 0.1 x10^3/uL (0.0-0.2) D-Dimer (Quyen) 9.87 ug/mlFEU (0.00-0.50) Sodium Level 139 mmol/L (136-145) Potassium Level 4.3 mmol/L (3.5-5.1) Chloride Level 104 mmol/L (98-107) Carbon Dioxide Level 27 mmol/L (21-32) Anion Gap 8 (6-14) Blood Urea Nitrogen 37 mg/dL (8-26) Creatinine 5.5 mg/dL (0.7-1.3) Estimated GFR (Cockcroft-Gault) 13.2 Glucose Level 101 mg/dL (70-99) Calcium Level 8.1 mg/dL (8.5-10.1) Phosphorus Level 4.3 mg/dL (2.6-4.7) Troponin I Quantitative < 0.017 ng/mL (0.000-0.055) Albumin 1.8 g/dL (3.4-5.0) Test 08/11/19 08:04 Glucose (Fingerstick) 89 mg/dL (70-99) Medications Active Scripts Medications Dose Route/Sig Max Daily Dose Days Date Category Carvedilol (Carvedilol) 6.25 Mg Tablet 6.25 Mg PO BIDWMEALS 30 06/07/19 Rx Triple Antibiotic Ointment Pkt (Neomycin/Bacitracin/Polymyxinb) 1 Each Oint.pack 1 Each TP DAILY 06/05/19 Reported Losartan Potassium 100 Mg Tablet 100 Mg PO DAILY 06/05/19 Reported Atorvastatin Calcium 80 Mg Tablet 80 Mg PO HS 02/21/19 Reported Cetirizine Hcl 10 Mg Tablet 1 Tab PO DAILY 01/16/19 Reported Magnesium (Magnesium Oxide) 400 Mg Capsule 250 Mg PO BID 01/02/19 Reported Tums (Calcium Carbonate) 200 Mg Tab.chew 200 Mg PO PRN Q4HRS PRN 12/22/18 Reported Aspirin 81 Mg Tab.chew 1 Tab PO DAILY 12/18/18 Reported Isosorbide Mononitrate Er (Isosorbide Mononitrate) 30 Mg Tab.er.24h 30 Mg PO DAILY 30 12/03/18 Rx Flovent 110MCG Hfa (Fluticasone Propionate) 12 Gm Aer.w.adap 2 Puff IH BID 12/03/18 Rx Mirapex (Pramipexole Di-Hcl) 0.25 Mg Tablet 1 Tab PO DAILY 12/03/18 Rx Ventolin Hfa Inhaler (Albuterol Sulfate) 18 Gm Hfa.aer.ad 1 Puff INH Q6HRS PRN 12/03/18 Rx Levothyroxine Sodium 175 Mcg Tablet 175 Mcg PO DAILYAC 12/03/18 Rx Calcium Carbonate 500 Mg Tablet 500 Mg PO BID 06/28/18 Reported Keppra (Levetiracetam) 1,000 Mg Tablet 1 Tab PO BID 04/14/18 Reported Tylenol (Acetaminophen) 325 Mg Tablet 650 Mg PO PRN Q6HRS PRN 07/31/17 Reported Impression . IMPRESSION: 1. Acute hypoxic respiratory failure 2. PNEUMONIA GRAM NEG/ POSSIBLE GRAM POS 3. End-stage renal disease, on hemodialysis, but he did not have dialysis for the past 1 month as his mother had a stroke and niece was sick. 4. Increased procalcitonin. 5. End-stage renal disease, on hemodialysis. 6. No significant tobacco history. 1. Moderate consolidation left lingula and left lower lobe lung likely pneumonia or atelectasis. 2. Mild pericardial effusion. Plan . CT REVIEWED NO EFFUSION HOME SOON ON ORAL ANTIBX REPEAT CT IN 8 WEEKS 2. P.r.n. oxygen. 3. Add empiric antibiotic since procalcitonin is high. 4. Dialysis per Renal. 5. P.r.n. bronchodilators. SYLVIA MAI MD Aug 11, 2019 09:33
--- NOTE | 2019-08-11 12:24 | NUR ---
SW following. Discussed with RN, pt has dialysis T, TH, Sa. PT/OT to be ordered. SW will continue to follow.
[2019-08-11] MEDS: GABAPENTIN 100 MG CAPSULE. PO SCH ×2 (14:13→21:36)
[2019-08-11] MEDS: MAGNESIUM OXIDE 400 MG TABLET PO SCH ×2 (14:13→21:35)
[2019-08-11] MEDS: ASPIRIN CHEWABLE 81 MG TABLET. PO SCH (14:13)
[2019-08-11] MEDS: PRAMIPEXOLE 0.25 MG TABLET. PO SCH (14:13)
[2019-08-11] MEDS: LACTOBACILLUS RHAMNOSUS GG 1 CAPSULE. PO SCH ×2 (14:13→21:34)
[2019-08-11] MEDS: CETIRIZINE HCL 10 MG TABLET. PO SCH (14:13)
[2019-08-11] MEDS: CALCIUM CARBONATE 500 MG TABLET PO SCH ×2 (14:13→21:35)
[2019-08-11] MEDS: levETIRAcetam 500 MG TABLET PO SCH ×2 (14:14→21:34)
[2019-08-11] MEDS: CARVEDILOL 6.25 MG TABLET. PO SCH ×2 (14:22→21:35)
[2019-08-11] MEDS: ISOSORBIDE MONONITRATE ER 30 MG TAB.ER.24H PO SCH (14:23)
[2019-08-11] MEDS: LOSARTAN POTASSIUM 50 MG TABLET. PO SCH (14:23)
[2019-08-11] MEDS: DOXYCYCLINE HYCLATE 100 MG in IV DEXTROSE 5% 100ML 100 ML IV SCH ×2 (14:24→21:00)
[2019-08-11] MEDS: FLUTICASONE 50MCG/NASAL SPRAY 16GM BOTTLE. NS SCH (14:24)
[2019-08-11 14:36] VITALS: BP 154/67
--- NOTE | 2019-08-11 14:45 | NUR ---
Wound Care Pt seen for wound care consultation for R DFU, known from [facility] and previous admissions. Pt was discharged from the [facility] a few months back after pt received a STSG from Vascular Surgery and his R foot wound was closed. Pt stated he fell out of his w/c last week and his foot reopened. Wound bed is beefy red and granulated, with periwound callus, moderate amount of richards, serosanguinous drainage. Wound dressed with Aquacel AG to absorb, ABD and kerlix, recommend changing every other day d/t drainage. No other wounds noted on full skin inspection. Pt may follow up in [facility] at d/c.
--- NOTE | 2019-08-11 15:58 | PDOC ---
Renal-Progress Notes Subjective Notes Notes LESS SOB History of Present Illness Hx of present illness IMPROVED Vitals Vitals Vital Signs Date Time Temp Pulse Resp B/P (MAP) Pulse Ox O2 Delivery O2 Flow Rate FiO2 08/11/19 14:36 98.3 92 16 154/67 (96) 99 Room Air 98.3 08/10/19 10:44 2.0 Weight Weight [ ] I.O. Intake and Output Intake and Output 08/11/19 07:00 Output Total 300 ml Balance -300 ml Output Urine Total 300 ml Labs Labs Laboratory Tests Test 08/10/19 16:31 08/10/19 20:32 08/11/19 05:21 08/11/19 08:04 Glucose (Fingerstick) 124 mg/dL (70-99) 122 mg/dL (70-99) 89 mg/dL (70-99) White Blood Count 6.1 x10^3/uL (4.0-11.0) Red Blood Count 2.69 x10^6/uL (4.30-5.70) Hemoglobin 7.5 g/dL (13.0-17.5) Hematocrit 23.5 % (39.0-53.0) Mean Corpuscular Volume 87 fL (79-100) Mean Corpuscular Hemoglobin 28 pg (25-35) Mean Corpuscular Hemoglobin Concent 32 g/dL (31-37) Red Cell Distribution Width 16.3 % (11.5-14.5) Platelet Count 219 x10^3/uL (140-400) Neutrophils (%) (Auto) 72 % (31-73) Lymphocytes (%) (Auto) 9 % (24-48) Monocytes (%) (Auto) 16 % (0-9) Eosinophils (%) (Auto) 2 % (0-3) Basophils (%) (Auto) 1 % (0-3) Neutrophils # (Auto) 4.4 x10^3/uL (1.8-7.7) Lymphocytes # (Auto) 0.5 x10^3/uL (1.0-4.8) Monocytes # (Auto) 1.0 x10^3/uL (0.0-1.1) Eosinophils # (Auto) 0.1 x10^3/uL (0.0-0.7) Basophils # (Auto) 0.1 x10^3/uL (0.0-0.2) D-Dimer (Quyen) 9.87 ug/mlFEU (0.00-0.50) Sodium Level 139 mmol/L (136-145) Potassium Level 4.3 mmol/L (3.5-5.1) Chloride Level 104 mmol/L (98-107) Carbon Dioxide Level 27 mmol/L (21-32) Anion Gap 8 (6-14) Blood Urea Nitrogen 37 mg/dL (8-26) Creatinine 5.5 mg/dL (0.7-1.3) Estimated GFR (Cockcroft-Gault) 13.2 Glucose Level 101 mg/dL (70-99) Calcium Level 8.1 mg/dL (8.5-10.1) Phosphorus Level 4.3 mg/dL (2.6-4.7) Troponin I Quantitative < 0.017 ng/mL (0.000-0.055) Albumin 1.8 g/dL (3.4-5.0) Test 08/11/19 14:12 Glucose (Fingerstick) 85 mg/dL (70-99) Review of Systems Constitutional: yes: weakness, alert, oriented Ears/Nose/Throat: Yes: no symptom reported Eyes: Yes: no symptom reported Pulmonary: Yes dyspnea Cardiovascular: Yes no symptom reported Gastrointestional: Yes: constipation Genitourinary: Yes: no symptom reported Musculoskeletal: Yes: no symptom reported Skin: Yes no symptom reported Psychiatric/Neurological: Yes: no symptom reported Endocrine: Yes: no symptom reported Physical Exam General Appearance: no apparent distress Skin: warm Respiratory: decreased breath sounds Heart: S1S2 Abdomen: soft, bowel sounds present Genitourinary: bladder flat Extremities: pulses present Neurology: alert Musculoskeletal: Osteoarthritis Assessment Assessment IMP CHF-ACUTE AND CHRONIC DIASTOLIC AND PROB SYSTOLIC ACUTE RESP FAILURE DUE TO ABOVE NON COMPLIANCE ANEMIA ESRD-TTS DM II HTN HX OF CAD PLEURAL EFFUSION PLAN ENC COMPLIANCE KEITH STARTED HD TODAY UF TO DW HD AGAIN TOMORROW AND CHALLENGE DW PULM GRACE POE MD Aug 11, 2019 15:58
[2019-08-11 19:00] VITALS: BP 135/80
[2019-08-11] MEDS: INSULIN GLARGINE SYRINGE. SQ SCH (21:00)
[2019-08-11] MEDS: ATORVASTATIN CALCIUM 40 MG TABLET. PO SCH (21:35)
[2019-08-11 23:00] VITALS: BP 141/78
[2019-08-12] MEDS: NITROGLYCERIN SUBLINGUAL 0.4 MG BOTTLE OF 25. SL PRN (02:36)
[2019-08-12] MEDS: HYDROcodone/APAP 5/325MG 1 TAB TABLET PO PRN (02:47)
[2019-08-12 03:00] VITALS: BP 132/63
[2019-08-12 04:51] LABS: BASO # 0.1 x10^3/uL (0.0-0.2); BASO % 1 % (0-3); EOS # 0.1 x10^3/uL (0.0-0.7); EOS % 1 % (0-3); HEMATOCRIT 28.7 % (39.0-53.0); HEMOGLOBIN 9.2 g/dL (13.0-17.5); LYMPH # 0.6 x10^3/uL (1.0-4.8); LYMPH % 10 % (24-48); MEAN CORPUSCULAR HEMOGLOBIN 28 pg (25-35); MEAN CORPUSCULAR HGB CONC 32 g/dL (31-37); MEAN CORPUSCULAR VOLUME 88 fL (79-100); MONO # 0.9 x10^3/uL (0.0-1.1); MONO % 15 % (0-9); NEUT # 4.3 x10^3/uL (1.8-7.7); NEUT % 72 % (31-73); PLATELET COUNT 278 x10^3/uL (140-400); RED BLOOD COUNT 3.28 x10^6/uL (4.30-5.70); RED CELL DISTRIBUTION WIDTH 16.5 % (11.5-14.5); WHITE BLOOD COUNT 5.9 x10^3/uL (4.0-11.0)
[2019-08-12 05:09] LABS: ALBUMIN 2.1 g/dL (3.4-5.0); CALCIUM 8.9 mg/dL (8.5-10.1); CREATININE 4.2 mg/dL (0.7-1.3); POTASSIUM 3.9 mmol/L (3.5-5.1)
[2019-08-12] MEDS: HEPARIN for SUB-Q USE 5,000 UNIT/ML VIAL. SQ SCH ×2 (06:05→14:00)
[2019-08-12 07:00] VITALS: BP 135/68
[2019-08-12] MEDS ORDERED: DOXY100T PO (07:44)
[2019-08-12] MEDS ORDERED: HYDR-3164 PO (07:45)
--- NOTE | 2019-08-12 07:45 | SNU/HH DC ---
DISCHARGE WITH HOME HEALTH DISCHARGE INFORMATION: Discharge Date: Aug 12, 2019 Final Diagnosis: Problems Medical Problems: (1) Chest pain Status: Acute (2) Noncompliance with renal dialysis Status: Acute (3) Pleural effusion Status: Acute Condition on Discharge: Stable CODE STATUS: Code Status: Full HOME HEALTH: Face to Face: I certify this patient is under my care and that I, or a nurse practitioner or physician's tutoring assistant working with me, had a face to face encounter that meets the physician face to face encounter requirements with this patient on []. 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 For: Community Resources Pt Meets Homebound Status: Unsteady balance w/ amb, POST DISCHARGE ORDERS: Activity Instructions for Disc: Activity as tolerated Weight Bearing Status after Di: As tolerated, Other, see below Bathing Instructions: Shower-keep dressing dry, No Tub Bath until see DIET AFTER DISCHARGE: Renal Wound/Incision Care: Change dressing CHECKS AFTER DISCHARGE: Checks after discharge: Check blood press - daily, Check blood sugar, ac/hs, Check your Temp as needed, Weigh Yourself Daily FOLLOW-UP: PCP to follow Home Health: fnish abx for CAP, comply with wound care and hd sessions TREATMENT/EQUIPMENT ORDERS: Adaptive Equipment Issued: None CERTIFICATION STATEMENT: Certification Statement: Certification Statement: Based on the above finding, I certify that this patient is confined to the home and needs intermittent prison care, physical therapy and/or speech therapy, or continues to need occupational therapy.~ This patient is under my care, and I have initiated the establishment of the plan of care.~ This patient will be followed by myself or a community physician who will periodically review the plan of care. Home Meds Active Scripts Hydrocodone/Apap 5-325 (NORCO 5-325 TABLET) 1 Each Tablet, 1 TAB PO TID for pain, #20 TAB Prov:ANDRAE ROA MD 08/12/19 Doxycycline Hyclate (DOXYCYCLINE HYCLATE) 100 Mg Tablet, 1 TAB PO BID for PNA, #20 TAB Prov:ANDRAE ROA MD 08/12/19 Carvedilol (CARVEDILOL ) 6.25 Mg Tablet, 6.25 MG PO BIDWMEALS for heart for 30 Days, #60 TAB Prov:NICHOLE THORNTON MD 06/07/19 Isosorbide Mononitrate (ISOSORBIDE MONONITRATE ER) 30 Mg Tab.er.24h, 30 MG PO DAILY for angina for 30 Days, #30 TAB.SR 3 Refills Prov:SUGAR BEAL MD 12/03/18 Fluticasone Propionate (FLOVENT 110MCG HFA) 12 Gm Aer.w.adap, 2 PUFF IH BID for asthma, #1 INHALER 3 Refills Prov:SUGAR BEAL MD 12/03/18 Pramipexole Di-Hcl (MIRAPEX) 0.25 Mg Tablet, 1 TAB PO DAILY for restless leg, #30 TAB 4 Refills Prov:SUGAR BEAL MD 12/03/18 Albuterol Sulfate (VENTOLIN HFA INHALER) 18 Gm Hfa.aer.ad, 1 PUFF INH Q6HRS PRN for SHORTNESS OF BREATH, #1 INHALER 0 Refills Prov:SUGAR BEAL MD 12/03/18 Levothyroxine Sodium (LEVOTHYROXINE SODIUM) 175 Mcg Tablet, 175 MCG PO DAILYAC for THYROID SUPPLEMENT, #30 TAB 4 Refills Prov:SUGAR BEAL MD 12/03/18 Reported Medications Neomycin/Bacitracin/Polymyxinb (Triple Antibiotic Ointment Pkt) 1 Each Oint.pack, 1 EACH TP DAILY for amputation, MISC 06/05/19 Losartan Potassium (LOSARTAN POTASSIUM) 100 Mg Tablet, 100 MG PO DAILY for HYPERTENSION, TAB 06/05/19 Atorvastatin Calcium (ATORVASTATIN CALCIUM) 80 Mg Tablet, 80 MG PO HS for FOR CHOLESTEROL, #30 TAB 0 Refills 02/21/19 Cetirizine Hcl (CETIRIZINE HCL) 10 Mg Tablet, 1 TAB PO DAILY for allergy, #30 TAB 5 Refills 01/16/19 Magnesium Oxide (MAGNESIUM) 400 Mg Capsule, 250 MG PO BID for per med list , CAP 01/02/19 Calcium Carbonate (TUMS) 200 Mg Tab.chew, 200 MG PO PRN Q4HRS PRN for INDIGE STION, TAB.CHEW 12/22/18 Aspirin (ASPIRIN) 81 Mg Tab.chew, 1 TAB PO DAILY for CAD, #30 TAB 3 Refills 5/8/19 Calcium Carbonate (CALCIUM CARBONATE) 500 Mg Tablet, 500 MG PO BID for supplement, TAB 06/28/18 Levetiracetam (KEPPRA) 1,000 Mg Tablet, 1 TAB PO BID, #60 TAB 5 Refills 04/14/18 Acetaminophen (TYLENOL) 325 Mg Tablet, 650 MG PO PRN Q6HRS PRN for FEVER, TAB 07/31/17 ANDRAE ROA MD Aug 12, 2019 07:45
[2019-08-12] MEDS: INSULIN LISPRO 300 UNITS/3 ML VIAL. SQ SCH ×3 (08:00→17:00)
--- NOTE | 2019-08-12 08:45 | PDOC ---
PULMONARY PROGRESS NOTES Subjective PT NOT MORE SOA FEELS BETTER Vitals Vital Signs Date Time Temp Pulse Resp B/P (MAP) Pulse Ox O2 Delivery O2 Flow Rate FiO2 08/12/19 07:30 Room Air 08/12/19 07:00 99.0 89 18 135/68 (90) 97 99.0 08/12/19 03:47 94.0 ROS: No Nausea, No Chest Pain, No Abdominal Pain, No Increase Cough General: Alert Lungs: Clear, Crackles Cardiovascular: S1, S2 Abdomen: Soft, Non-tender Neuro Exam: Alert Extremities: No Edema Labs Laboratory Tests Test 08/10/19 11:55 08/10/19 16:31 08/10/19 20:32 08/11/19 05:21 Glucose (Fingerstick) 116 mg/dL (70-99) 124 mg/dL (70-99) 122 mg/dL (70-99) White Blood Count 6.1 x10^3/uL (4.0-11.0) Red Blood Count 2.69 x10^6/uL (4.30-5.70) Hemoglobin 7.5 g/dL (13.0-17.5) Hematocrit 23.5 % (39.0-53.0) Mean Corpuscular Volume 87 fL (79-100) Mean Corpuscular Hemoglobin 28 pg (25-35) Mean Corpuscular Hemoglobin Concent 32 g/dL (31-37) Red Cell Distribution Width 16.3 % (11.5-14.5) Platelet Count 219 x10^3/uL (140-400) Neutrophils (%) (Auto) 72 % (31-73) Lymphocytes (%) (Auto) 9 % (24-48) Monocytes (%) (Auto) 16 % (0-9) Eosinophils (%) (Auto) 2 % (0-3) Basophils (%) (Auto) 1 % (0-3) Neutrophils # (Auto) 4.4 x10^3/uL (1.8-7.7) Lymphocytes # (Auto) 0.5 x10^3/uL (1.0-4.8) Monocytes # (Auto) 1.0 x10^3/uL (0.0-1.1) Eosinophils # (Auto) 0.1 x10^3/uL (0.0-0.7) Basophils # (Auto) 0.1 x10^3/uL (0.0-0.2) D-Dimer (Quyen) 9.87 ug/mlFEU (0.00-0.50) Sodium Level 139 mmol/L (136-145) Potassium Level 4.3 mmol/L (3.5-5.1) Chloride Level 104 mmol/L (98-107) Carbon Dioxide Level 27 mmol/L (21-32) Anion Gap 8 (6-14) Blood Urea Nitrogen 37 mg/dL (8-26) Creatinine 5.5 mg/dL (0.7-1.3) Estimated GFR (Cockcroft-Gault) 13.2 Glucose Level 101 mg/dL (70-99) Calcium Level 8.1 mg/dL (8.5-10.1) Phosphorus Level 4.3 mg/dL (2.6-4.7) Troponin I Quantitative < 0.017 ng/mL (0.000-0.055) Albumin 1.8 g/dL (3.4-5.0) Test 08/11/19 08:04 08/11/19 14:12 08/11/19 16:34 08/11/19 20:30 Glucose (Fingerstick) 89 mg/dL (70-99) 85 mg/dL (70-99) 144 mg/dL (70-99) 123 mg/dL (70-99) Test 08/12/19 04:05 08/12/19 07:38 White Blood Count 5.9 x10^3/uL (4.0-11.0) Red Blood Count 3.28 x10^6/uL (4.30-5.70) Hemoglobin 9.2 g/dL (13.0-17.5) Hematocrit 28.7 % (39.0-53.0) Mean Corpuscular Volume 88 fL (79-100) Mean Corpuscular Hemoglobin 28 pg (25-35) Mean Corpuscular Hemoglobin Concent 32 g/dL (31-37) Red Cell Distribution Width 16.5 % (11.5-14.5) Platelet Count 278 x10^3/uL (140-400) Neutrophils (%) (Auto) 72 % (31-73) Lymphocytes (%) (Auto) 10 % (24-48) Monocytes (%) (Auto) 15 % (0-9) Eosinophils (%) (Auto) 1 % (0-3) Basophils (%) (Auto) 1 % (0-3) Neutrophils # (Auto) 4.3 x10^3/uL (1.8-7.7) Lymphocytes # (Auto) 0.6 x10^3/uL (1.0-4.8) Monocytes # (Auto) 0.9 x10^3/uL (0.0-1.1) Eosinophils # (Auto) 0.1 x10^3/uL (0.0-0.7) Basophils # (Auto) 0.1 x10^3/uL (0.0-0.2) Sodium Level 139 mmol/L (136-145) Potassium Level 3.9 mmol/L (3.5-5.1) Chloride Level 100 mmol/L (98-107) Carbon Dioxide Level 32 mmol/L (21-32) Anion Gap 7 (6-14) Blood Urea Nitrogen 18 mg/dL (8-26) Creatinine 4.2 mg/dL (0.7-1.3) Estimated GFR (Cockcroft-Gault) 18.0 Glucose Level 109 mg/dL (70-99) Calcium Level 8.9 mg/dL (8.5-10.1) Phosphorus Level 3.0 mg/dL (2.6-4.7) Albumin 2.1 g/dL (3.4-5.0) Glucose (Fingerstick) 79 mg/dL (70-99) Laboratory Tests Test 08/11/19 14:12 08/11/19 16:34 08/11/19 20:30 08/12/19 04:05 Glucose (Fingerstick) 85 mg/dL (70-99) 144 mg/dL (70-99) 123 mg/dL (70-99) White Blood Count 5.9 x10^3/uL (4.0-11.0) Red Blood Count 3.28 x10^6/uL (4.30-5.70) Hemoglobin 9.2 g/dL (13.0-17.5) Hematocrit 28.7 % (39.0-53.0) Mean Corpuscular Volume 88 fL (79-100) Mean Corpuscular Hemoglobin 28 pg (25-35) Mean Corpuscular Hemoglobin Concent 32 g/dL (31-37) Red Cell Distribution Width 16.5 % (11.5-14.5) Platelet Count 278 x10^3/uL (140-400) Neutrophils (%) (Auto) 72 % (31-73) Lymphocytes (%) (Auto) 10 % (24-48) Monocytes (%) (Auto) 15 % (0-9) Eosinophils (%) (Auto) 1 % (0-3) Basophils (%) (Auto) 1 % (0-3) Neutrophils # (Auto) 4.3 x10^3/uL (1.8-7.7) Lymphocytes # (Auto) 0.6 x10^3/uL (1.0-4.8) Monocytes # (Auto) 0.9 x10^3/uL (0.0-1.1) Eosinophils # (Auto) 0.1 x10^3/uL (0.0-0.7) Basophils # (Auto) 0.1 x10^3/uL (0.0-0.2) Sodium Level 139 mmol/L (136-145) Potassium Level 3.9 mmol/L (3.5-5.1) Chloride Level 100 mmol/L (98-107) Carbon Dioxide Level 32 mmol/L (21-32) Anion Gap 7 (6-14) Blood Urea Nitrogen 18 mg/dL (8-26) Creatinine 4.2 mg/dL (0.7-1.3) Estimated GFR (Cockcroft-Gault) 18.0 Glucose Level 109 mg/dL (70-99) Calcium Level 8.9 mg/dL (8.5-10.1) Phosphorus Level 3.0 mg/dL (2.6-4.7) Albumin 2.1 g/dL (3.4-5.0) Test 08/12/19 07:38 Glucose (Fingerstick) 79 mg/dL (70-99) Medications Active Scripts Medications Dose Route/Sig Max Daily Dose Days Date Category Carvedilol (Carvedilol) 6.25 Mg Tablet 6.25 Mg PO BIDWMEALS 30 06/07/19 Rx Triple Antibiotic Ointment Pkt (Neomycin/Bacitracin/Polymyxinb) 1 Each Oint.pack 1 Each TP DAILY 06/05/19 Reported Losartan Potassium 100 Mg Tablet 100 Mg PO DAILY 06/05/19 Reported Atorvastatin Calcium 80 Mg Tablet 80 Mg PO HS 02/21/19 Reported Cetirizine Hcl 10 Mg Tablet 1 Tab PO DAILY 01/16/19 Reported Magnesium (Magnesium Oxide) 400 Mg Capsule 250 Mg PO BID 01/02/19 Reported Tums (Calcium Carbonate) 200 Mg Tab.chew 200 Mg PO PRN Q4HRS PRN 12/22/18 Reported Aspirin 81 Mg Tab.chew 1 Tab PO DAILY 12/18/18 Reported Isosorbide Mononitrate Er (Isosorbide Mononitrate) 30 Mg Tab.er.24h 30 Mg PO DAILY 30 12/03/18 Rx Flovent 110MCG Hfa (Fluticasone Propionate) 12 Gm Aer.w.adap 2 Puff IH BID 12/03/18 Rx Mirapex (Pramipexole Di-Hcl) 0.25 Mg Tablet 1 Tab PO DAILY 12/03/18 Rx Ventolin Hfa Inhaler (Albuterol Sulfate) 18 Gm Hfa.aer.ad 1 Puff INH Q6HRS PRN 12/03/18 Rx Levothyroxine Sodium 175 Mcg Tablet 175 Mcg PO DAILYAC 12/03/18 Rx Calcium Carbonate 500 Mg Tablet 500 Mg PO BID 06/28/18 Reported Keppra (Levetiracetam) 1,000 Mg Tablet 1 Tab PO BID 04/14/18 Reported Tylenol (Acetaminophen) 325 Mg Tablet 650 Mg PO PRN Q6HRS PRN 07/31/17 Reported Impression . IMPRESSION: 1. Acute hypoxic respiratory failure 2. PNEUMONIA GRAM NEG/ POSSIBLE GRAM POS 3. End-stage renal disease, on hemodialysis, but he did not have dialysis for the past 1 month as his mother had a stroke and niece was sick. 4. Increased procalcitonin. 5. End-stage renal disease, on hemodialysis. 6. No significant tobacco history. 1. Moderate consolidation left lingula and left lower lobe lung likely pneumonia or atelectasis. 2. Mild pericardial effusion. Plan . DC TODAY FOLLOW UP IN SEP CT REVIEWED NO EFFUSION HOME SOON ON ORAL ANTIBX REPEAT CT IN 8 WEEKS SYLVIA MAI MD Aug 12, 2019 08:45
[2019-08-12] MEDS: NEOMY/BACITR/POLYMYXIN OINT PACKET. TP SCH (09:00)
--- NOTE | 2019-08-12 09:02 | PDOC3 ---
Discharge Summary Visit Information Date of Admission: Aug 09, 2019 Date of Discharge: Aug 12, 2019 Admitting Diagnosis Comment: Atypical Chest pain - initial trop nml. EKG SR without acute changes. noncardiac suspect costochondritis, Left pleural effusion - can get better off load HD MISSED HD x 1 month NOn compliance LEFt BKA RT foot wound, hx amputated toes LEFT ARM NUMBNESS - new 08/10 End-stage renal disease, on hemodialysis. T SAT Diabetes 2 with peripheral neuropathy - Hypertension - cont meds CAD - [facility] 07/[address] at [facility] this summer. Clinically stable. Obesity BMI 37 Anemia of esrd. Hypothyroidism on replacement AFIB - maintaining SR H/O noncompliance Anxiety CHF - in acute exacerbation 09/14 missed dialysis Prior CVA PVD Elevated INR, no bleeding Final Diagnosis Problems Medical Problems: (1) Chest pain Status: Acute (2) Noncompliance with renal dialysis Status: Acute (3) Pleural effusion Status: Acute Brief Hospital Course Allergies Allergies Coded Allergies Type Severity Reaction Last Updated Verified iodine Allergy Severe THROAT SWELLING 01/16/19 Yes lisinopril Allergy Severe 01/16/19 Yes Fish Containing Products Allergy Intermediate 01/16/19 Yes Penicillins Allergy Intermediate SEE COMMENT 01/16/19 Yes piperacillin Allergy Intermediate Hives 01/16/19 Yes tazobactam Allergy Intermediate 01/16/19 Yes I S O L A T I O N *CONTACT* Allergy Unknown 02/26/19 Yes Vital Signs Vital Signs Date Time Temp Pulse Resp B/P (MAP) Pulse Ox O2 Delivery O2 Flow Rate FiO2 08/12/19 07:30 Room Air 08/12/19 07:00 99.0 89 18 135/68 (90) 97 99.0 08/12/19 03:47 94.0 Lab Results Laboratory Tests Test 08/10/19 11:55 08/10/19 16:31 08/10/19 20:32 08/11/19 05:21 Glucose (Fingerstick) 116 mg/dL (70-99) 124 mg/dL (70-99) 122 mg/dL (70-99) White Blood Count 6.1 x10^3/uL (4.0-11.0) Red Blood Count 2.69 x10^6/uL (4.30-5.70) Hemoglobin 7.5 g/dL (13.0-17.5) Hematocrit 23.5 % (39.0-53.0) Mean Corpuscular Volume 87 fL (79-100) Mean Corpuscular Hemoglobin 28 pg (25-35) Mean Corpuscular Hemoglobin Concent 32 g/dL (31-37) Red Cell Distribution Width 16.3 % (11.5-14.5) Platelet Count 219 x10^3/uL (140-400) Neutrophils (%) (Auto) 72 % (31-73) Lymphocytes (%) (Auto) 9 % (24-48) Monocytes (%) (Auto) 16 % (0-9) Eosinophils (%) (Auto) 2 % (0-3) Basophils (%) (Auto) 1 % (0-3) Neutrophils # (Auto) 4.4 x10^3/uL (1.8-7.7) Lymphocytes # (Auto) 0.5 x10^3/uL (1.0-4.8) Monocytes # (Auto) 1.0 x10^3/uL (0.0-1.1) Eosinophils # (Auto) 0.1 x10^3/uL (0.0-0.7) Basophils # (Auto) 0.1 x10^3/uL (0.0-0.2) D-Dimer (Quyen) 9.87 ug/mlFEU (0.00-0.50) Sodium Level 139 mmol/L (136-145) Potassium Level 4.3 mmol/L (3.5-5.1) Chloride Level 104 mmol/L (98-107) Carbon Dioxide Level 27 mmol/L (21-32) Anion Gap 8 (6-14) Blood Urea Nitrogen 37 mg/dL (8-26) Creatinine 5.5 mg/dL (0.7-1.3) Estimated GFR (Cockcroft-Gault) 13.2 Glucose Level 101 mg/dL (70-99) Calcium Level 8.1 mg/dL (8.5-10.1) Phosphorus Level 4.3 mg/dL (2.6-4.7) Troponin I Quantitative < 0.017 ng/mL (0.000-0.055) Albumin 1.8 g/dL (3.4-5.0) Test 08/11/19 08:04 08/11/19 14:12 08/11/19 16:34 08/11/19 20:30 Glucose (Fingerstick) 89 mg/dL (70-99) 85 mg/dL (70-99) 144 mg/dL (70-99) 123 mg/dL (70-99) Test 08/12/19 04:05 08/12/19 07:38 White Blood Count 5.9 x10^3/uL (4.0-11.0) Red Blood Count 3.28 x10^6/uL (4.30-5.70) Hemoglobin 9.2 g/dL (13.0-17.5) Hematocrit 28.7 % (39.0-53.0) Mean Corpuscular Volume 88 fL (79-100) Mean Corpuscular Hemoglobin 28 pg (25-35) Mean Corpuscular Hemoglobin Concent 32 g/dL (31-37) Red Cell Distribution Width 16.5 % (11.5-14.5) Platelet Count 278 x10^3/uL (140-400) Neutrophils (%) (Auto) 72 % (31-73) Lymphocytes (%) (Auto) 10 % (24-48) Monocytes (%) (Auto) 15 % (0-9) Eosinophils (%) (Auto) 1 % (0-3) Basophils (%) (Auto) 1 % (0-3) Neutrophils # (Auto) 4.3 x10^3/uL (1.8-7.7) Lymphocytes # (Auto) 0.6 x10^3/uL (1.0-4.8) Monocytes # (Auto) 0.9 x10^3/uL (0.0-1.1) Eosinophils # (Auto) 0.1 x10^3/uL (0.0-0.7) Basophils # (Auto) 0.1 x10^3/uL (0.0-0.2) Sodium Level 139 mmol/L (136-145) Potassium Level 3.9 mmol/L (3.5-5.1) Chloride Level 100 mmol/L (98-107) Carbon Dioxide Level 32 mmol/L (21-32) Anion Gap 7 (6-14) Blood Urea Nitrogen 18 mg/dL (8-26) Creatinine 4.2 mg/dL (0.7-1.3) Estimated GFR (Cockcroft-Gault) 18.0 Glucose Level 109 mg/dL (70-99) Calcium Level 8.9 mg/dL (8.5-10.1) Phosphorus Level 3.0 mg/dL (2.6-4.7) Albumin 2.1 g/dL (3.4-5.0) Glucose (Fingerstick) 79 mg/dL (70-99) Laboratory Tests Test 08/11/19 14:12 08/11/19 16:34 08/11/19 20:30 08/12/19 04:05 Glucose (Fingerstick) 85 mg/dL (70-99) 144 mg/dL (70-99) 123 mg/dL (70-99) White Blood Count 5.9 x10^3/uL (4.0-11.0) Red Blood Count 3.28 x10^6/uL (4.30-5.70) Hemoglobin 9.2 g/dL (13.0-17.5) Hematocrit 28.7 % (39.0-53.0) Mean Corpuscular Volume 88 fL (79-100) Mean Corpuscular Hemoglobin 28 pg (25-35) Mean Corpuscular Hemoglobin Concent 32 g/dL (31-37) Red Cell Distribution Width 16.5 % (11.5-14.5) Platelet Count 278 x10^3/uL (140-400) Neutrophils (%) (Auto) 72 % (31-73) Lymphocytes (%) (Auto) 10 % (24-48) Monocytes (%) (Auto) 15 % (0-9) Eosinophils (%) (Auto) 1 % (0-3) Basophils (%) (Auto) 1 % (0-3) Neutrophils # (Auto) 4.3 x10^3/uL (1.8-7.7) Lymphocytes # (Auto) 0.6 x10^3/uL (1.0-4.8) Monocytes # (Auto) 0.9 x10^3/uL (0.0-1.1) Eosinophils # (Auto) 0.1 x10^3/uL (0.0-0.7) Basophils # (Auto) 0.1 x10^3/uL (0.0-0.2) Sodium Level 139 mmol/L (136-145) Potassium Level 3.9 mmol/L (3.5-5.1) Chloride Level 100 mmol/L (98-107) Carbon Dioxide Level 32 mmol/L (21-32) Anion Gap 7 (6-14) Blood Urea Nitrogen 18 mg/dL (8-26) Creatinine 4.2 mg/dL (0.7-1.3) Estimated GFR (Cockcroft-Gault) 18.0 Glucose Level 109 mg/dL (70-99) Calcium Level 8.9 mg/dL (8.5-10.1) Phosphorus Level 3.0 mg/dL (2.6-4.7) Albumin 2.1 g/dL (3.4-5.0) Test 08/12/19 07:38 Glucose (Fingerstick) 79 mg/dL (70-99) Brief Hospital Course Mr. Goel is a 54 old AA male who missed 1 MONTH worth of HD. Came in with fluid overload and needed extra 2 doses HD< NOn toxic appearing though, CHronic issues with NON compliance and has been fired by most HH Agencies, HAs wound RT foot from DM and perhaps PAD but cleared OP ff up wound care, PO doxy on dc for foot wound and some pNA on CXR HH on dc Dw him Consults: wound care and nephro dc , 30 mins 2 scripts in chart Discharge Information Condition at Discharge: Improved, Stable Disposition/Orders: D/C to Home w/ HH Scheduled Aspirin (Aspirin) 81 Mg Tab.chew, 1 TAB PO DAILY for CAD, #30 Ref 3 (Reported) Entered as Reported by: MARIO BUICO on 12/18/18 1316 Last Action: Continued on 08/09/19 1640 by CINDA POE MD Atorvastatin Calcium (Atorvastatin Calcium) 80 Mg Tablet, 80 MG PO HS for FOR CHOLESTEROL, #30 Ref 0 (Reported) Entered as Reported by: FELIBERTO RICO on 02/21/192030 Last Action: Converted on 08/09/19 1640 by CINDA POE MD Calcium Carbonate (Calcium Carbonate) 500 Mg Tablet, 500 MG PO BID for supplement, (Reported) Entered as Reported by: Daron Shipley on 06/28/18 1154 Last Action: Continued on 08/10/19 0830 by ANDRAE ROA Carvedilol (Carvedilol ) 6.25 Mg Tablet, 6.25 MG PO BIDWMEALS for heart for 30 Days, #60 Prescribed by: NICHOLE THORNTON MD on 06/07/19 1248 Last Action: Continued on 08/09/191639 by CINDA POE MD Cetirizine Hcl (Cetirizine Hcl) 10 Mg Tablet, 1 TAB PO DAILY for allergy, #30 Ref 5 (Reported) Entered as Reported by: LUIS HADDAD on 01/16/195 Last Action: Continued on 08/09/191639 by CINDA POE MD Doxycycline Hyclate (Doxycycline Hyclate) 100 Mg Tablet, 1 TAB PO BID for PNA, #20 Prescribed by: ANDRAE ROA on 08/12/19 0744 Fluticasone Propionate (Flovent 110MCG Hfa) 12 Gm Aer.w.adap, 2 PUFF IH BID for asthma, #1 Ref 3 Prescribed by: SUGAR BEAL on 12/03/18 151 Last Action: Converted on 08/09/191639 by CINDA POE MD Hydrocodone/Apap 5-325 ([place] 5-325 Tablet) 1 Each Tablet, 1 TAB PO TID for pain, #20 Prescribed by: ANDRAE ROA on 08/12/19 0745 Isosorbide Mononitrate (Isosorbide Mononitrate Er) 30 Mg Tab.er.24h, 30 MG PO DAILY for angina for 30 Days, #30 Ref 3 Prescribed by: SUGAR BEAL on 12/03/18 1517 Last Action: Continued on 08/09/191639 by CINDA POE MD Levetiracetam (Keppra) 1,000 Mg Tablet, 1 TAB PO BID, #60 Ref 5 (Reported) Entered as Reported by: JACKELIN TEIXEIRA on 04/14/18 1359 Last Action: Converted on 08/10/19 0830 by ANDRAE ROA Levothyroxine Sodium (Levothyroxine Sodium) 175 Mcg Tablet, 175 MCG PO DAILYAC for THYROID SUPPLEMENT, #30 Ref 4 Prescribed by: SUGAR BEAL on 12/03/18 1510 Last Action: Continued on 08/09/191639 by CINDA POE MD Losartan Potassium (Losartan Potassium) 100 Mg Tablet, 100 MG PO DAILY for HYPERTENSION, (Reported) Entered as Reported by: JOSS CAMPBELL RN on 06/05/19 104 Last Action: Converted on 08/10/19829 by ANDRAE ROA Magnesium Oxide (Magnesium) 400 Mg Capsule, 250 MG PO BID for per med list , (Reported) Entered as Reported by: BRITTANY LARIOS on 01/02/19 1558 Last Action: Converted on 08/10/19829 by ANDRAE ROA Neomycin/Bacitracin/Polymyxinb (Triple Antibiotic Ointment Pkt) 1 Each Oint.pack, 1 EACH TP DAILY for amputation, (Reported) Entered as Reported by: JOSS CAMPBELL RN on 06/05/191043 Last Action: Continued on 08/10/19829 by ANDRAE ROA Pramipexole Di-Hcl (Mirapex) 0.25 Mg Tablet, 1 TAB PO DAILY for restless leg, #30 Ref 4 Prescribed by: SUGAR BEAL on 12/03/181516 Last Action: Continued on 08/09/191639 by CINDA POE MD Scheduled PRN Acetaminophen (Tylenol) 325 Mg Tablet, 650 MG PO PRN Q6HRS PRN for FEVER, (Reported) Entered as Reported by: DELMA BOLDEN on 07/31/17 1729 Last Action: Continued on 08/09/19 1640 by CINDA POE MD Albuterol Sulfate (Ventolin Hfa Inhaler) 18 Gm Hfa.aer.ad, 1 PUFF INH Q6HRS PRN for SHORTNESS OF BREATH, #1 Ref 0 Prescribed by: SUGAR BEAL on 12/03/181516 Last Action: Converted on 08/09/19 1640 by CINDA POE MD Calcium Carbonate (Tums) 200 Mg Tab.chew, 200 MG PO PRN Q4HRS PRN for MELINDA GESTION, (Reported) Entered as Reported by: KRUNAL ZEPEDA RN on 12/22/18 9775 Last Action: Continued on 08/09/19 1640 by MD CRISPIN SOLIMAN CHERRIE Y MD Aug 12, 2019 09:02
[2019-08-12] MEDS: LEVOTHYROXINE 175 MCG TABLET PO SCH (09:03)
[2019-08-12] MEDS: CALCIUM CARBONATE 500 MG TABLET PO SCH ×2 (09:03→17:54)
[2019-08-12] MEDS: ISOSORBIDE MONONITRATE ER 30 MG TAB.ER.24H PO SCH (09:03)
[2019-08-12] MEDS: levETIRAcetam 500 MG TABLET PO SCH (09:03)
[2019-08-12] MEDS: PRAMIPEXOLE 0.25 MG TABLET. PO SCH (09:03)
[2019-08-12] MEDS: CARVEDILOL 6.25 MG TABLET. PO SCH ×2 (09:04→17:54)
[2019-08-12] MEDS: LOSARTAN POTASSIUM 50 MG TABLET. PO SCH (09:04)
[2019-08-12] MEDS: CETIRIZINE HCL 10 MG TABLET. PO SCH (09:04)
[2019-08-12] MEDS: GABAPENTIN 100 MG CAPSULE. PO SCH (09:05)
[2019-08-12] MEDS: ASPIRIN CHEWABLE 81 MG TABLET. PO SCH (09:05)
[2019-08-12] MEDS: LACTOBACILLUS RHAMNOSUS GG 1 CAPSULE. PO SCH (09:05)
[2019-08-12] MEDS: MAGNESIUM OXIDE 400 MG TABLET PO SCH (09:05)
[2019-08-12] MEDS: FLUTICASONE 50MCG/NASAL SPRAY 16GM BOTTLE. NS SCH (09:09)
[2019-08-12] MEDS ORDERED: DOXYCYCLINE HYCLATE 100 MG TABLET PO SCH (09:30)
[2019-08-12] MEDS ORDERED: IV NORMAL SALINE 1000ML BAG 1,000 ML IV PRN ×2 (10:43)
[2019-08-12] MEDS ORDERED: DIALYSIS PATIENT. MC PRN ×2 (10:45)
[2019-08-12] MEDS ORDERED: ALBUMIN HUMAN 25% 200 ML IV PRN (10:45)
[2019-08-12 11:00] VITALS: BP 113/47
--- NOTE | 2019-08-12 12:06 | NUR ---
Pt. c/o nausea, text paged sent to Dr. Diaz.
[2019-08-12] MEDS ORDERED: ONDANSETRON ODT 4 MG TAB.RAPDIS. PO PRN (12:15)
--- NOTE | 2019-08-12 15:47 | NUR ---
SW following Pt. SW phoned and faxed orders to [facility]. Unable to confirm at this time if they will take pt. Discussed with RN pt will need to f/u with wound clinic as SW might not be able to get HH confirmed on time, and pt has hx of non-compliance with various HH agencies.
--- NOTE | 2019-08-12 16:03 | PDOC ---
Renal-Progress Notes Subjective Notes Notes FEELING BETTER History of Present Illness Hx of present illness STABLE Vitals Vitals Vital Signs Date Time Temp Pulse Resp B/P (MAP) Pulse Ox O2 Delivery O2 Flow Rate FiO2 08/12/19 11:00 98.5 84 18 113/47 (69) 94 Room Air 98.5 08/12/19 03:47 94.0 Weight Weight [ ] I.O. Intake and Output Intake and Output 08/12/19 07:00 Intake Total 640 ml Balance 640 ml Intake Oral 640 ml Labs Labs Laboratory Tests Test 08/11/19 16:34 08/11/19 20:30 08/12/19 04:05 08/12/19 07:38 Glucose (Fingerstick) 144 mg/dL (70-99) 123 mg/dL (70-99) 79 mg/dL (70-99) White Blood Count 5.9 x10^3/uL (4.0-11.0) Red Blood Count 3.28 x10^6/uL (4.30-5.70) Hemoglobin 9.2 g/dL (13.0-17.5) Hematocrit 28.7 % (39.0-53.0) Mean Corpuscular Volume 88 fL (79-100) Mean Corpuscular Hemoglobin 28 pg (25-35) Mean Corpuscular Hemoglobin Concent 32 g/dL (31-37) Red Cell Distribution Width 16.5 % (11.5-14.5) Platelet Count 278 x10^3/uL (140-400) Neutrophils (%) (Auto) 72 % (31-73) Lymphocytes (%) (Auto) 10 % (24-48) Monocytes (%) (Auto) 15 % (0-9) Eosinophils (%) (Auto) 1 % (0-3) Basophils (%) (Auto) 1 % (0-3) Neutrophils # (Auto) 4.3 x10^3/uL (1.8-7.7) Lymphocytes # (Auto) 0.6 x10^3/uL (1.0-4.8) Monocytes # (Auto) 0.9 x10^3/uL (0.0-1.1) Eosinophils # (Auto) 0.1 x10^3/uL (0.0-0.7) Basophils # (Auto) 0.1 x10^3/uL (0.0-0.2) Erythrocyte Sedimentation Rate 115 (0-15) Sodium Level 139 mmol/L (136-145) Potassium Level 3.9 mmol/L (3.5-5.1) Chloride Level 100 mmol/L (98-107) Carbon Dioxide Level 32 mmol/L (21-32) Anion Gap 7 (6-14) Blood Urea Nitrogen 18 mg/dL (8-26) Creatinine 4.2 mg/dL (0.7-1.3) Estimated GFR (Cockcroft-Gault) 18.0 Glucose Level 109 mg/dL (70-99) Calcium Level 8.9 mg/dL (8.5-10.1) Phosphorus Level 3.0 mg/dL (2.6-4.7) Albumin 2.1 g/dL (3.4-5.0) Test 08/12/19 11:12 Glucose (Fingerstick) 101 mg/dL (70-99) Review of Systems Constitutional: yes: weakness, alert, oriented Ears/Nose/Throat: Yes: no symptom reported Eyes: Yes: no symptom reported Pulmonary: Yes dyspnea Cardiovascular: Yes no symptom reported Gastrointestional: Yes: constipation Genitourinary: Yes: no symptom reported Musculoskeletal: Yes: no symptom reported Skin: Yes no symptom reported Psychiatric/Neurological: Yes: no symptom reported Endocrine: Yes: no symptom reported Physical Exam General Appearance: no apparent distress Skin: warm Respiratory: decreased breath sounds Heart: S1S2 Abdomen: soft, bowel sounds present Genitourinary: bladder flat Extremities: pulses present Neurology: alert Musculoskeletal: Osteoarthritis Assessment Assessment IMP CHF-ACUTE AND CHRONIC DIASTOLIC AND PROB SYSTOLIC ACUTE RESP FAILURE DUE TO ABOVE NON COMPLIANCE ANEMIA ESRD-TTS DM II HTN HX OF CAD PLEURAL EFFUSION PLAN ENC COMPLIANCE KEITH STARTED HD TODAY UF TO DW POSSIBLE D/C TODAY HAVE ASKED PT TO F/U WITH SCHEDULE AT HD UNIT GRACE VILLEDA MD Aug 12, 2019 16:03
[2019-08-12 17:41] VITALS: BP 146/86
[2019-08-12 17:54] VITALS: BP 146/86
--- NOTE | 2019-08-12 18:11 | NUR ---
Pt. discharged to home with Rx and belongings from security. Verbalized understanding of discharge instructions. R ft dressing CDI. Pt. awaiting cab ride home.
--- NOTE | 2019-08-12 18:25 | NUR ---
Cab here to take pt home. Pt. taken down via WC.
== END 2019-08-12 18:34 | disposition home health service (06) | DRG 205 ==
LOC: ER 11:46 → 2 NORTH 13:58 → 4 NORTH 08-10 16:10
PROVIDERS: ADMIT Internal Medicine; ATTEND Internal Medicine
PROC: 5A1D70Z Performance of Urinary Filtration, Intermittent, Less than 6 Hours Per Day (ICD-10-PCS; 2019-08-09)
PROC: 5A1D70Z Performance of Urinary Filtration, Intermittent, Less than 6 Hours Per Day (ICD-10-PCS; 2019-08-11)
PROC: 5A1D70Z Performance of Urinary Filtration, Intermittent, Less than 6 Hours Per Day (ICD-10-PCS; principal; 2019-08-12)
DX: M94.0 Chondrocostal junction syndrome [Tietze] (principal); J15.6 Pneumonia due to other Gram-negative bacteria; I50.33 Acute on chronic diastolic (congestive) heart failure; J96.01 Acute respiratory failure with hypoxia; N18.6 End stage renal disease; I13.2 Hypertensive heart and chronic kidney disease with heart failure and with stage 5 chronic kidney disease, or end stage renal disease; J44.0 Chronic obstructive pulmonary disease with (acute) lower respiratory infection; J98.11 Atelectasis; D63.1 Anemia in chronic kidney disease; E03.9 Hypothyroidism, unspecified; E11.22 Type 2 diabetes mellitus with diabetic chronic kidney disease; E11.42 Type 2 diabetes mellitus with diabetic polyneuropathy; E11.51 Type 2 diabetes mellitus with diabetic peripheral angiopathy without gangrene; E66.01 Morbid (severe) obesity due to excess calories; E78.5 Hyperlipidemia, unspecified; E87.5 Hyperkalemia; F03.90 Unspecified dementia, unspecified severity, without behavioral disturbance, psychotic disturbance, mood disturbance, and anxiety; F41.9 Anxiety disorder, unspecified; I25.10 Atherosclerotic heart disease of native coronary artery without angina pectoris; I48.91 Unspecified atrial fibrillation; M06.9 Rheumatoid arthritis, unspecified; Z68.37 Body mass index [BMI] 37.0-37.9, adult; Z82.3 Family history of stroke; Z82.49 Family history of ischemic heart disease and other diseases of the circulatory system; Z83.3 Family history of diabetes mellitus; Z86.73 Personal history of transient ischemic attack (TIA), and cerebral infarction without residual deficits; Z87.891 Personal history of nicotine dependence; Z89.512 Acquired absence of left leg below knee; Z91.15 Patient's noncompliance with renal dialysis; Z91.19 Patient's noncompliance with other medical treatment and regimen; Z95.5 Presence of coronary angioplasty implant and graft; Z96.659 Presence of unspecified artificial knee joint; Z99.2 Dependence on renal dialysis; E21.3 Hyperparathyroidism, unspecified; F32.9 Major depressive disorder, single episode, unspecified; K21.9 Gastro-esophageal reflux disease without esophagitis; K57.90 Diverticulosis of intestine, part unspecified, without perforation or abscess without bleeding; M19.90 Unspecified osteoarthritis, unspecified site
CPT/HCPCS: 36415; 71045; 71250; 80053; 80069; 82553; 82962; 83690; 83735; 83880; 84145; 84484; 85025; 85379; 85610; 85651; 85730; 93005; 96374; J0882; J1644; J1815; J3010; J3490; Q0162; 99285-25; G0378